=== PATIENT | male | born 1930 | race Caucasian/White ===

== ENCOUNTER 2016-06-22 13:23 | Inpatient (IN) | payer OTHER ==
--- NOTE | 2016-06-22 15:26 | PDOC ---
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 He didn't check his temp at home. He is also complaining of chronic SOB but states that today it is worse. He denies cough, fever. He denies chest pain, abdominal pain, N/V, diarrhea, increased frequency, urgency. He denies headache, weakness, dizziness. PCP: Past History - Past Medical History Allergies/Adverse Reactions: Allergies Allergy/AdvReac Type Severity Reaction Status Date / Time No Known Allergies Allergy Verified 06/22/16 13:53 Home Medications: Ambulatory Orders Aspirin [ASA -] 81 mg PO DAILY 06/24/14 Pravastatin Sodium [Pravachol -] 40 mg PO HS 10/12/14 Insulin (Levemir) [Levemir Flexpen -] 30 units SQ HS #1 pen 10/14/14 Sitagliptin Phosphate [Januvia -] 25 mg PO DAILY@0700 #90 tab 10/14/14 Furosemide [Lasix -] 40 mg PO BID #30 tablet 03/01/16 Anemia: No Asthma: No Cancer: No Cardiac Disorders: Yes CVA: No COPD: No CHF: No Dementia: Yes (PER FAMILY/MILD) Diabetes: Yes GI Disorders: No Disorders: No HTN: No Hypercholesterolemia: No Liver Disease: No Suicide Attempt (Hx): No Seizures: No Thyroid Disease: No - Surgical History Abdominal Surgery: No Appendectomy: No Cardiac Surgery: Yes (CABG) Cholecystectomy: No Lung Surgery: Yes Neurologic Surgery: No Orthopedic Surgery: No - Psycho/Social/Smoking Cessation Hx Anxiety: No Suicidal Ideation: No Smoking History: Former smoker Have you smoked in the past 12 months: No If you are a former smoker, when did you quit?: 15 yrs Information on smoking cessation initiated: No Hx Alcohol Use: Yes (social) Drug/Substance Use Hx: No Substance Use Type: None Hx Substance Use Treatment: No Review of Systems - Review of Systems Able to Perform ROS?: Yes Comments:: 06/22/16 15:45 REVIEW OF SYSTEMS CONSTITUTIONAL: chills Absent: fever, diaphoresis, generalized weakness, malaise, loss of appetite, weight change HEENT: Absent: rhinorrhea, nasal congestion, throat pain, throat swelling, difficulty swallowing CARDIOVASCULAR: Absent: chest pain, syncope, palpitations, irregular heart rate, lightheadedness , peripheral edema RESPIRATORY: shortness of breath, Absent: cough, dyspnea with exertion, orthopnea, wheezing, stridor, hemoptysis GASTROINTESTINAL: Absent: abdominal pain, abdominal distension, nausea, vomiting, diarrhea GENITOURINARY: Absent: dysuria, frequency, urgency, hesitancy, hematuria, flank pain, genital pain MUSCULOSKELETAL: Absent: myalgia, arthralgia, joint swelling, back pain, neck pain SKIN: Absent: rash, itching, pallor NEUROLOGIC: Absent: headache, focal weakness or paresthesias, dizziness, unsteady gait, seizure PSYCHIATRIC: Absent: anxiety, depression, suicidal or homicidal ideation, hallucinations. *Physical Exam - Vital Signs Last Vital Signs Temp Pulse Resp BP Pulse Ox 97.6 F 99 H 19 135/60 95 06/22/16 13:53 06/22/16 13:53 06/22/16 13:53 06/22/16 13:53 06/22/16 13:53 - Physical Exam Comments: 06/22/16 15:51 GENERAL: The patient is awake, alert, and fully oriented, in no acute distress. HEAD: Normal with no signs of trauma. EYES: extraocular movements intact, sclera anicteric, conjunctiva clear. ENT: Ears normal, nares patent, oropharynx clear without exudates, moist mucous membranes. NECK: Trachea midline, full range of motion, supple. LUNGS: Breath sounds equal, crackles at bases bilaterally, no wheezes, no accessory muscle use. HEART: Regular rate and rhythm, S1, S2 without murmur, rub or gallop. ABDOMEN: Obese, soft, nontender, nondistended, normoactive bowel sounds, no guarding, no rebound. EXTREMITIES: no edema. NEUROLOGICAL: Normal speech, gait not observed. PSYCH: Normal mood, normal affect. SKIN: Warm, dry, normal turgor, no rashes or lesions noted ED Treatment Course - LABORATORY CBC & Chemistry Diagram: 06/22/16 17:00 06/22/16 17:00 Medical Decision Making - Medical Decision Making 06/22/16 15:53 The pt is a 85 year old male who presents with SOB and chills for 3 hours. Differential diagnosis include PNA, ACS, Influenza. We ordered CXR, EKG, cardiac profile, CBC, CMP, UA, LA. 06/22/16 18:32 CXR reviewed by me, no changes when compared with the previous one, EKG reviewed NSR at rate 72 , no mandeep/std, left axis deviation, QTC 435, no MS prolongation. Elevated WBC to 12.8. Waiting for chemistry. We contacted Dr. Moseley who agreed to admit the pt to med surg. We also consulted Dr. Garcia-Human Capital Consultant *DC/Admit/Observation/Transfer Diagnosis at time of Disposition: Shortness of breath - Discharge Dispostion Condition at time of disposition: Good Admit: Yes - Referrals Referrals: Sunil Moseley MD [Primary Care Provider] -
--- NOTE | 2016-06-22 16:07 | PDOC ---
Attending Attestation - Resident Resident Name: Lorie Scott - ED Attending Attestation I have performed the following: I have examined & evaluated the patient, The case was reviewed & discussed with the resident, I agree w/resident's findings & plan - HPI HPI: 06/22/16 16:02 85-year-old male with a past medical history of COPD, CKD, Pleural lung dz/ Occupational lung dz, JUAN He was here 02/23/16, with COPD exacerbation/pneumonia and sepsis Patient states he's been in his usual state until the past 24 hours, when he developed some chills and a little increased shortness of breath He denies any cough or sputum He denies any chest pain or abdominal pain He denies any vomiting or diarrhea He denies any dysuria urgency or frequency He denies any other complaints at this time - Physicial Exam PE: 06/22/16 16:04 Physical exam Last Vital Signs Temp Pulse Resp BP Pulse Ox 97.6 F 99 H 19 135/60 95 06/22/16 13:53 06/22/16 13:53 06/22/16 13:53 06/22/16 13:53 06/22/16 13:53 Patient is alert and answering questions Lungs-there are some scattered rhonchi and occasional wheezes Heart is regular Abdomen is soft and nontender Extremities-there is 1+ pitting pedal edema - Medical Decision Making 06/23/16 09:27 85-year-old male with complex past medical history as noted above Also has complex pulmonary history as noted above Presents with chills, and slight increased shortness of breath Was admitted for pneumonia in the past Chest x-ray-no significant changes since the prior chest x-ray of 03/11/16 Laboratory Results - last 24 hr 06/22/16 06/22/16 06/22/16 17:00 17:00 17:00 WBC 12.8 H D RBC 4.42 Hgb 13.4 Hct 40.2 MCV 90.9 MCHC 33.3 RDW 15.1 Plt Count 180 D MPV 9.8 D Neutrophils % Lymphocytes % Monocytes % Eosinophils % Basophils % Sodium Potassium Chloride Carbon Dioxide Anion Gap BUN Creatinine Creat Clearance w eGFR POC Glucometer Random Glucose Hemoglobin A1c % Lactic Acid Calcium Phosphorus Magnesium Total Bilirubin AST ALT Alkaline Phosphatase Creatine Kinase 31 L Troponin I < 0.02 B-Natriuretic Peptide Total Protein Albumin Triglycerides Cholesterol Total LDL Cholesterol HDL Cholesterol Urine Color Yellow Urine Appearance Clear Urine pH 5.0 Ur Specific [place] 1.019 Urine Protein Negative Urine Glucose (UA) Negative Urine Ketones Negative Urine Blood Negative Urine Nitrite Negative Urine Bilirubin Negative Urine Urobilinogen Negative Ur Leukocyte Esterase 1+ H Urine RBC 1 Urine WBC 10 Ur Epithelial Cells Rare Hyaline Casts 3 Urine Mucus Rare 06/22/16 06/22/16 06/22/16 17:00 17:00 21:35 WBC RBC Hgb Hct MCV MCHC RDW Plt Count MPV Neutrophils % Lymphocytes % Monocytes % Eosinophils % Basophils % Sodium 136 Potassium 4.0 Chloride 93 L Carbon Dioxide 31 Anion Gap 12 BUN 32 H Creatinine 1.6 H Creat Clearance w eGFR 41.39 POC Glucometer 105 Random Glucose 121 H Hemoglobin A1c % Lactic Acid 0.726 Calcium 8.6 Phosphorus Magnesium Total Bilirubin 0.5 D AST 26 D ALT 25 Alkaline Phosphatase 79 Creatine Kinase Troponin I B-Natriuretic Peptide Total Protein 6.9 Albumin 3.4 Triglycerides Cholesterol Total LDL Cholesterol HDL Cholesterol Urine Color Urine Appearance Urine pH Ur Specific [place] Urine Protein Urine Glucose (UA) Urine Ketones Urine Blood Urine Nitrite Urine Bilirubin Urine Urobilinogen Ur Leukocyte Esterase Urine RBC Urine WBC Ur Epithelial Cells Hyaline Casts Urine Mucus 06/22/16 06/23/16 06/23/16 22:00 06:32 07:00 WBC 9.9 RBC 4.35 Hgb 13.3 Hct 39.4 MCV 90.7 MCHC 33.8 RDW 15.1 Plt Count 178 MPV 8.6 D Neutrophils % 66.5 Lymphocytes % 17.8 D Monocytes % 11.9 H Eosinophils % 2.9 Basophils % 0.9 Sodium Potassium Chloride Carbon Dioxide Anion Gap BUN Creatinine Creat Clearance w eGFR POC Glucometer 68 Random Glucose Hemoglobin A1c % Lactic Acid Calcium Phosphorus Magnesium Total Bilirubin AST ALT Alkaline Phosphatase Creatine Kinase 27 L Troponin I < 0.02 B-Natriuretic Peptide 866.95 H Total Protein Albumin Triglycerides Cholesterol Total LDL Cholesterol HDL Cholesterol Urine Color Urine Appearance Urine pH Ur Specific [place] Urine Protein Urine Glucose (UA) Urine Ketones Urine Blood Urine Nitrite Urine Bilirubin Urine Urobilinogen Ur Leukocyte Esterase Urine RBC Urine WBC Ur Epithelial Cells Hyaline Casts Urine Mucus 06/23/16 06/23/16 07:00 07:00 WBC RBC Hgb Hct MCV MCHC RDW Plt Count MPV Neutrophils % Lymphocytes % Monocytes % Eosinophils % Basophils % Sodium 139 Potassium 3.9 Chloride 97 L Carbon Dioxide 35 H Anion Gap 7 L BUN 32 H Creatinine 1.6 H Creat Clearance w eGFR 41.39 POC Glucometer Random Glucose 64 L D Hemoglobin A1c % 6.9 H Lactic Acid Calcium 8.5 Phosphorus 2.6 Magnesium 2.3 D Total Bilirubin 0.4 AST 19 D ALT 26 Alkaline Phosphatase 72 Creatine Kinase Troponin I B-Natriuretic Peptide Total Protein 6.8 Albumin 3.1 L Triglycerides 128 D Cholesterol 151 D Total LDL Cholesterol 86 D HDL Cholesterol 54 Urine Color Urine Appearance Urine pH Ur Specific [place] Urine Protein Urine Glucose (UA) Urine Ketones Urine Blood Urine Nitrite Urine Bilirubin Urine Urobilinogen Ur Leukocyte Esterase Urine RBC Urine WBC Ur Epithelial Cells Hyaline Casts Urine Mucus Will need admission and further evaluation, pulmonary consultation, Consider antibiotics pending workup, although no definite infiltrate is seen on the chest x-ray COPD exacerbation
[2016-06-22 17:53] LABS: MCH 30.2 pg (25.7-33.7); MCHC 33.3 g/dl (32.0-35.9); MEAN CELL VOLUME 90.9 fl (80-96); MEAN PLT VOLUME 9.8 fl (7.5-11.1); PLATELET COUNT 180 K/MM3 (134-434); RDW 15.1 % (11.9-15.9); URINE APPEARANCE CLEAR; URINE BILIRUBIN NEGATIVE (NEGATIVE); URINE BLOOD NEGATIVE (NEGATIVE); URINE COLOR YELLOW; URINE GLUCOSE (UA) NEGATIVE (NEGATIVE); URINE KETONE NEGATIVE (NEGATIVE); URINE NITRITE NEGATIVE (NEGATIVE); URINE PROTEIN NEGATIVE (NEGATIVE); URINE UROBILINOGEN NEGATIVE E.U./dl (0.2-1.0); WHITE BLOOD COUNT 12.8 K/mm3 (4.0-10.0)
[2016-06-22 17:58] LABS: URINE LEUK ESTERASE 1+ (NEGATIVE)
[2016-06-22 18:03] LABS: URINE HYALINE CAST 3 /lpf; URINE MUCUS RARE; URINE RBC 1 /hpf (0-3); URINE WBC 10 /hpf (3-5)
[2016-06-22 18:35] LABS: ALBUMIN 3.4 g/dl (3.4-5.0); CALCIUM 8.6 mg/dL (8.5-10.1); CREATININE 1.6 mg/dL (0.7-1.3)
[2016-06-22 18:38] LABS: BILIRUBIN,TOTAL 0.5 mg/dL (0.2-1.0); TOT PROT 6.9 g/dl (6.4-8.2)
[2016-06-22 18:40] LABS: TROPONIN I < 0.02 ng/ml (0.00-0.05)
[2016-06-22] MEDS ORDERED: AMPICILLIN NA/SULBACTAM NA 100 ML IVPB ONE (21:15)
[2016-06-22] MEDS ORDERED: INSULIN (NOVOLOG) ASPART 100 UNITS/ML 10ML VIAL ONE (21:19)
[2016-06-22] MEDS: INSULIN SLIDING SCALE (NOVOLOG) 1 VIAL SQ SCH (21:36)
[2016-06-22] MEDS: INSULIN DETEMIR 100 UNITS/ML MDV SQ SCH (21:50)
[2016-06-22] MEDS: HEPARIN NA (PORCINE) 5,000 UNITS/ML 1ML VIAL SQ SCH (21:50)
[2016-06-22] MEDS: ATORVASTATIN CA 10 MG TABLET (FP) PO SCH (21:50)
[2016-06-22] MEDS ORDERED: INSULIN SQ SCH (22:00)
[2016-06-22] MEDS ORDERED: PATIENT'S OWN MEDICATION (NON-FORMULARY) (Pravastatin Sodium 40 MG) PO SCH (22:00)
[2016-06-22 22:47] LABS: TROPONIN I < 0.02 ng/ml (0.00-0.05)
[2016-06-22 23:30] VITALS: BMI 39.4
[2016-06-23] MEDS ORDERED: AMPICILLIN NA/SULBACTAM NA 100 ML IVPB SCH (03:00)
[2016-06-23] MEDS ORDERED: AMPICILLIN NA/SULBACTAM NA 1.5 GM in SODIUM CHLORIDE 100 ML IVPB SCH (03:00)
[2016-06-23] MEDS: FUROSEMIDE 40 MG TABLET (FP) PO SCH ×2 (06:33→13:55)
[2016-06-23] MEDS: HEPARIN NA (PORCINE) 5,000 UNITS/ML 1ML VIAL SQ SCH ×3 (06:33→22:02)
[2016-06-23] MEDS: INSULIN SLIDING SCALE (NOVOLOG) 1 VIAL SQ SCH ×4 (06:36→22:03)
[2016-06-23] MEDS ORDERED: INSULIN DETEMIR 100 UNITS/ML MDV SQ SCH (07:00)
[2016-06-23] MEDS: sitaGLIPtin PHOSPHATE 25 MG TABLET (FP) PO SCH (07:09)
--- NOTE | 2016-06-23 07:49 | HP ---
Admitting History and Physical - Admission Chief Complaint: 85 y.o M developed yesterday at 12 noon rigors, chills, fever, cough, SOB and presented to ER. Had several similar episodes in the past. Was admitted for further management. History of Present Illness: Persistent 6.7cm left basilar atelectasis/consolidation. CABG ASHD. DM type on Levemir/Januvia.. CRI. 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 JUAN-not using CPAP. 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 bronchiectasis.) Gastrointestinal: Yes: Ulcerative Colitis Renal/: Yes: Renal Inusuff Heme/Onc: No: Cancer Infectious Disease: No: AIDS, C-Diff, Herpes Zoster, HIV, MRSA, STD's, Tuberculosis, VREF, Other Musculoskeletal: Yes: Osteoarthritis, Other (Neck/shoulder pain) Endocrine: Yes: Diabetes Mellitus - Past Surgical History Past Surgical History: Yes: CABG - Smoking History Smoking history: Former smoker Have you smoked in the past 12 months: No If you are a former smoker, when did you quit?: 15 yrs - Alcohol/Substance Use Hx Alcohol Use: Yes (social) History of Substance Use: reports: None - Social History 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 History of Recent Travel: No Home Medications - Allergies Allergies/Adverse Reactions: Allergies Allergy/AdvReac Type Severity Reaction Status Date / Time No Known Allergies Allergy Verified 06/22/16 13:53 - Home Medications Home Medications: Ambulatory Orders Aspirin [ASA -] 81 mg PO DAILY 06/24/14 Pravastatin Sodium [Pravachol -] 40 mg PO HS 10/12/14 Insulin (Levemir) [Levemir Flexpen -] 30 units SQ HS #1 pen 10/14/14 Sitagliptin Phosphate [Januvia -] 25 mg PO DAILY@0700 #90 tab 10/14/14 Furosemide [Lasix -] 40 mg PO BID #30 tablet 03/01/16 Family Disease History - Family Disease History Family History: Unremarkable Review of Systems - Review of Systems Constitutional: denies: Chills, Diaphoresis, Fever, Lethargy Eyes: reports: No Symptoms HENT: denies: Difficult Swallowing, Ear Discharge Cardiovascular: reports: Shortness of Breath. denies: Chest Pain Respiratory: reports: SOB on Exertion Gastrointestinal: denies: Abdominal Pain Genitourinary: denies: Burning, Dysuria Breasts: reports: No Symptoms Reported Integumentary: reports: No Symptoms Neurological: denies: Change in LOC Psychiatric: reports: No Symptoms Physical Examination Vital Signs: Vital Signs Temperature 97.5 F L 06/23/16 06:00 Pulse Rate 74 06/23/16 06:00 Respiratory Rate 20 06/23/16 06:00 Blood Pressure 143/89 06/23/16 06:00 O2 Sat by Pulse Oximetry (%) 99 06/22/16 20:47 Constitutional: Yes: Anxious, Mild Distress Eyes: Yes: Conjunctiva Clear, EOM Intact HENT: Yes: Atraumatic, Normocephalic Neck: Yes: Supple, Trachea Midline Cardiovascular: Yes: Regular Rate and Rhythm, Murmur. No: JVD Respiratory: Yes: Regular, Diminished, On Nasal O2, Rhonchi, SOB, SOB on Exertion Gastrointestinal: Yes: Normal Bowel Sounds, Abdomen, Obese. No: Ascites, Palpable Mass, Tenderness ...Rectal Exam: Yes: Deferred Renal/: No: Anuria, Bladder Distention, CVA Tenderness - Left Breast(s): Yes: Left Musculoskeletal: Yes: WNL Extremities: No: Amputation, Calf Tenderness, Cold, Cyanosis Edema: No Edema: LLE: Trace, RLE: Trace Integumentary: Yes: WNL Neurological: Yes: WNL, Alert, Oriented. No: Aphasia, Ataxia, Dysarthria, Loss of Sensation, Numbness, Seizure, Weakness ...Motor Strength: WNL Psychiatric: Yes: WNL Labs: Laboratory Results - last 24 hr 06/22/16 06/22/16 06/22/16 17:00 17:00 17:00 WBC 12.8 H D RBC 4.42 Hgb 13.4 Hct 40.2 MCV 90.9 MCHC 33.3 RDW 15.1 Plt Count 180 D MPV 9.8 D Sodium Potassium Chloride Carbon Dioxide Anion Gap BUN Creatinine Creat Clearance w eGFR POC Glucometer Random Glucose Lactic Acid Calcium Total Bilirubin AST ALT Alkaline Phosphatase Creatine Kinase 31 L Troponin I < 0.02 B-Natriuretic Peptide Total Protein Albumin Urine Color Yellow Urine Appearance Clear Urine pH 5.0 Ur Specific [place] 1.019 Urine Protein Negative Urine Glucose (UA) Negative Urine Ketones Negative Urine Blood Negative Urine Nitrite Negative Urine Bilirubin Negative Urine Urobilinogen Negative Ur Leukocyte Esterase 1+ H Urine RBC 1 Urine WBC 10 Ur Epithelial Cells Rare Hyaline Casts 3 Urine Mucus Rare 06/22/16 06/22/16 06/22/16 17:00 17:00 21:35 WBC RBC Hgb Hct MCV MCHC RDW Plt Count MPV Sodium 136 Potassium 4.0 Chloride 93 L Carbon Dioxide 31 Anion Gap 12 BUN 32 H Creatinine 1.6 H Creat Clearance w eGFR 41.39 POC Glucometer 105 Random Glucose 121 H Lactic Acid 0.726 Calcium 8.6 Total Bilirubin 0.5 D AST 26 D ALT 25 Alkaline Phosphatase 79 Creatine Kinase Troponin I B-Natriuretic Peptide Total Protein 6.9 Albumin 3.4 Urine Color Urine Appearance Urine pH Ur Specific [place] Urine Protein Urine Glucose (UA) Urine Ketones Urine Blood Urine Nitrite Urine Bilirubin Urine Urobilinogen Ur Leukocyte Esterase Urine RBC Urine WBC Ur Epithelial Cells Hyaline Casts Urine Mucus 06/22/16 06/23/16 22:00 06:32 WBC RBC Hgb Hct MCV MCHC RDW Plt Count MPV Sodium Potassium Chloride Carbon Dioxide Anion Gap BUN Creatinine Creat Clearance w eGFR POC Glucometer 68 Random Glucose Lactic Acid Calcium Total Bilirubin AST ALT Alkaline Phosphatase Creatine Kinase 27 L Troponin I < 0.02 B-Natriuretic Peptide 866.95 H Total Protein Albumin Urine Color Urine Appearance Urine pH Ur Specific [place] Urine Protein Urine Glucose (UA) Urine Ketones Urine Blood Urine Nitrite Urine Bilirubin Urine Urobilinogen Ur Leukocyte Esterase Urine RBC Urine WBC Ur Epithelial Cells Hyaline Casts Urine Mucus Imaging - Results Chest X-ray: Image Reviewed EKG: Image Reviewed Problem List - Problems (1) COPD exacerbation Assessment/Plan: R/O PNA. CT CHEST R/O infected bronchoectasis. Pulm consult IV Ceftriaxone BLD CX-P Code(s): J44.1 - CHRONIC OBSTRUCTIVE PULMONARY DISEASE W (ACUTE) EXACERBATION (2) Diabetes 1.5, managed as type 2 Code(s): E13.9 - OTHER SPECIFIED DIABETES MELLITUS WITHOUT COMPLICATIONS (3) CHF, acute on chronic Code(s): I50.9 - HEART FAILURE, UNSPECIFIED Qualifiers: Congestive heart failure type: diastolic Qualified Code(s): I50.33 - Acute on chronic diastolic (congestive) heart failure (4) Constipation Assessment/Plan: Miralax PO. Mag citrate. CT abdomen Code(s): K59.00 - CONSTIPATION, UNSPECIFIED Qualifiers: Constipation type: unspecified constipation type Qualified Code(s): K59.00 - Constipation, unspecified
[2016-06-23] MEDS ORDERED: MAGNESIUM CITRATE 300 ML BOTTLE PO ONE ×2 (08:12→14:00)
[2016-06-23] MEDS ORDERED: BISACODYL 5 MG TABLET.DR (FP) PO ONE ×2 (08:15→14:00)
[2016-06-23 08:35] LABS: BASOPHIL 0.9 % (0-2.0); EOSINOPHIL 2.9 % (0-4.5); MCH 30.7 pg (25.7-33.7); MCHC 33.8 g/dl (32.0-35.9); MEAN CELL VOLUME 90.7 fl (80-96); MEAN PLT VOLUME 8.6 fl (7.5-11.1); NEUTROPHILS 66.5 % (42.8-82.8); PLATELET COUNT 178 K/MM3 (134-434); RDW 15.1 % (11.9-15.9); WHITE BLOOD COUNT 9.9 K/mm3 (4.0-10.0)
--- NOTE | 2016-06-23 08:50 | PN ---
Progress Note (short form) - Note Progress Note: Consult Dictated Suspected PNA Pleural lung dz/Occupational lung dz PHTN CAD s/p CABG Diastolic Dysfunction REC: 1. Abx per PMD 2. Agree Chest CT 3. Mild volume overload due to chronic diastolic CHF, can continue PO Lasix and follow renal fxn closely Thank you
[2016-06-23 08:53] LABS: ALBUMIN 3.1 g/dl (3.4-5.0); CALCIUM 8.5 mg/dL (8.5-10.1); CREATININE 1.6 mg/dL (0.7-1.3); MAGNESIUM 2.3 mg/dL (1.8-2.4); PHOSPHOROUS 2.6 mg/dL (2.5-4.9); TOT PROT 6.8 g/dl (6.4-8.2)
[2016-06-23 08:55] LABS: BILIRUBIN,TOTAL 0.4 mg/dL (0.2-1.0)
[2016-06-23] MEDS ORDERED: ASPIRIN 81 MG CHEWABLE TABLETS PO SCH (10:00)
[2016-06-23] MEDS ORDERED: CEFTRIAXONE 50 ML IVPB SCH (10:00)
--- NOTE | 2016-06-23 13:35 | EKG ---
Test Reason : Blood Pressure : / mmHG Vent. Rate : 072 BPM Atrial Rate : 072 BPM P-R Int : 144 ms QRS Dur : 116 ms QT Int : 398 ms P-R-T Axes : 102 -24 014 degrees QTc Int : 435 ms POOR DATA QUALITY, INTERPRETATION MAY BE ADVERSELY AFFECTED NORMAL SINUS RHYTHM NORMAL ECG WHEN COMPARED WITH ECG OF 23-FEB-2016 05:45, NONSPECIFIC T WAVE ABNORMALITY NOW EVIDENT IN INFERIOR LEADS NONSPECIFIC T WAVE ABNORMALITY, WORSE IN LATERAL LEADS Confirmed by GORDON PHAM, ZACH ([id number]) on 06/23/2016 1:34:46 PM Referred By: Confirmed By:ZCAH LEYVA MD
[2016-06-23] MEDS: POLYETHYLENE GLYCOL 3350 119 GM BTL PO SCH ×2 (13:59→22:11)
--- NOTE | 2016-06-23 14:18 | PN ---
Progress Note (short form) - Note Progress Note: PULMONARY CONSULTATION DICTATED 06/23/16 IMP COPD EXACERBATION ACUTE BRONCHITIS LLL CONSOLIDATION NO CHANGE LIKELY ATELECTASIS ASBESTOS PLEURAL DISEASE ASHD S/P CABG CHF DM OSAS NOT ON CPAP PLAN IV ANTIBIOTICS INHALED BRONCHODILATORS NASAL O2 CULTURES OUTPATIENT PULMONARY REHAB DR HERNANDEZ Problem List - Problems (1) CHF, acute on chronic Code(s): I50.9 - HEART FAILURE, UNSPECIFIED Qualifiers: Congestive heart failure type: diastolic Qualified Code(s): I50.33 - Acute on chronic diastolic (congestive) heart failure (2) Shortness of breath Code(s): R06.02 - SHORTNESS OF BREATH (3) COPD exacerbation Code(s): J44.1 - CHRONIC OBSTRUCTIVE PULMONARY DISEASE W (ACUTE) EXACERBATION (4) Diabetes 1.5, managed as type 2 Code(s): E13.9 - OTHER SPECIFIED DIABETES MELLITUS WITHOUT COMPLICATIONS (5) Sleep apnea Code(s): G47.30 - SLEEP APNEA, UNSPECIFIED (6) ASHD (arteriosclerotic heart disease) Code(s): I25.10 - ATHSCL HEART DISEASE OF [place] CORONARY ARTERY W/O ANG PCTRS (7) S/P CABG (coronary artery bypass graft) Code(s): Z95.1 - PRESENCE OF AORTOCORONARY BYPASS GRAFT
[2016-06-23] MEDS ORDERED: ALBUTEROL SO4 0.083% IH SOL 2.5 MG/3 ML VIAL.NEB. NEB PRN (14:22)
--- NOTE | 2016-06-23 15:18 | CONS ---
CARDIOLOGY CONSULTATION DATE OF CONSULTATION: 06/23/2016 REQUESTED BY: Sunil Moseley MD CONSULTATION REQUESTED FOR: Shortness of breath. 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 Patient developed what he describes as shaking chills and was brought to the ER by taxi after his urged him to come to the ER for evaluation. He denies chest pain but does have chronic dyspnea on exertion. He denies palpitations, pain, PND orthopnea or increase in mild chronic lower extremity edema. His chest x-ray in the emergency department shows no acute pathology, but there was slightly increased interstitial markings, but no sign of infiltrate or CHF. PAST MEDICAL HISTORY: His past medical history is as outlined above. ALLERGIES: He has no known drug allergies. MEDICATIONS: Aspirin 81 mg daily, atorvastatin 10 mg q h.s., Ceftriaxone for suspected pneumonia, Lasix 40 mg p.o. b.i.d., insulin, Levemir and Januvia. FAMILY HISTORY: Noncontributory. SOCIAL HISTORY: He is a former smoker, drinks alcohol socially. PHYSICAL EXAMINATION: Vital signs: Afebrile. Temperature 97.5. Blood pressure 140/90. Neck: No JVD, no bruits. Heart: S1, S2, regular. There is a 2/6 systolic murmur at the right sternal border. Chest: No active wheezing, no rales. Abdomen: Obese, soft, nontender. Extremities: 1+ bilateral edema. EKG showed sinus, 72 beats per minute with nonspecific intraventricular conduction delay. No acute ST changes. LABS: White count 9.9, hematocrit 39, platelets 178. Sodium 136, potassium 4. Creatinine 1.6. BNP mildly elevated at 867. Troponin is negative. IMPRESSION: 1. 85-year-old male with pleural lung disease/occupational lung disease. 2. Coronary artery disease status post coronary artery bypass graft. 3. Pulmonary hypertension, based on echo February 2016. 4. Now presents with chills, suspected pneumonia. PLAN: 1. Agree with antibiotics as per primary care physician. 2. Agree with chest CT. 3. Patient has chronic diastolic dysfunction and has mild volume overload. Can continue p.o. Lasix and follow renal function closely. Echo recently done in February with normal LV function and mild pulmonary hypertension. PRITESH HANNAH M.D. [id number]
[2016-06-23] MEDS: ALBUTEROL SO4 2.5/IPRATROPIUM 0.5 INH SOL 3 ML VIAL.NEB. NEB SCH ×2 (18:25→23:54)
--- NOTE | 2016-06-23 21:30 | CONS ---
DATE OF CONSULTATION: 06/23/2016 REFERRING PHYSICIAN: Sunil Moseley MD HISTORY OF PRESENT ILLNESS: The patient is an 85-year-old white male known to me in previous hospitalizations in the past with ASHD status post CABG with hypertension, diabetes, chronic kidney disease, extensive pleural disease with left pleural effusion, left atelectasis, consolidation, unchanged, likely centered around atelectasis, history of obstructive sleep apnea not on BiPAP, history of smoking many years ago, osteoarthritis, ulcerative colitis, bronchiectasis, COPD on O2 admitted to [facility] with complaint of fevers, chills, and shortness of breath. The patient states when he was at home he started developing rigors. He denies any nausea, vomiting, or diaphoresis. He does complain of cough with yellowish sputum as well as shortness of breath. He denied any chest pains or palpitations, denied any nausea, vomiting, or diaphoresis. The patient was admitted with the above. On admission, he was felt to have a possible pneumonia. He was placed on broad spectrum antibiotics. He also was evaluated by Dr. Starkey for cardiology consultation who felt that the patient most likely had some mild volume overload secondary to chronic diastolic heart failure. 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 PAST MEDICAL HISTORY: Again, significant for ASHD status post CABG, congestive heart failure, chronic kidney disease, type 2 diabetes, COPD on O2, obstructive sleep apnea not on CPAP, chronic lung disease with extensive pleural disease as well as left basilar consolidation, chronic with no change, most likely centered round atelectasis. History of pleural effusion, biopsy workup negative. REVIEW OF SYSTEMS: Positive orthopnea, positive dyspnea, positive chills. No nausea, no vomiting. No hemoptysis. No abdominal pain. PHYSICAL EXAMINATION: General: The patient is a healthy white male, awake, alert, currently in no acute distress. Vital Signs: He is currently afebrile. Blood pressure 149/79, respiratory rate 20, O2 saturation 97% on 2 L. HEENT: Examination is normocephalic, atraumatic. Neck: Supple. Heart: Regular, S1, S2. Chest: A few bibasilar crackles. Abdomen: Soft, bowel sounds positive. Extremities: No cyanosis or edema. LABORATORY DATA: Influenza screen negative. Chest CT unofficial report reveals no definitive infiltrates. There is no change in left basilar consolidation. There is some old bilateral pleural thickening as well as some bilateral effusions on the left. BUN is 32, creatinine 1.6. BNP is 866. WBC is 9.9. Hemoglobin 13.3, hematocrit 39.4 and a platelet count of 178,000. IMPRESSION: 1. Rigors, chills, rule out possible pneumonia, rule out possible bronchitis. 2. Chronic obstructive pulmonary disease on oxygen. 3. History of chronic pleural disease, left basilar pleural consolidation. No significant change. 4. Arteriosclerotic heart disease, status post coronary artery bypass graft. 5. Diastolic congestive heart failure. 6. Diabetes. 7. Chronic kidney disease. 8. Obstructive sleep apnea, noncompliant with CPAP. PLAN: Antibiotic therapy, supplemental O2, inhaled bronchodilators, cultures. Continue p.o. Lasix. Followup chest x-rays. LINDA HERNANDEZ M.D. [id number] MTDD
[2016-06-23] MEDS: ATORVASTATIN CA 10 MG TABLET (FP) PO SCH (22:02)
[2016-06-23] MEDS: INSULIN DETEMIR 100 UNITS/ML MDV SQ SCH (22:06)
[2016-06-24] MEDS: FUROSEMIDE 40 MG TABLET (FP) PO SCH (06:13)
[2016-06-24] MEDS: HEPARIN NA (PORCINE) 5,000 UNITS/ML 1ML VIAL SQ SCH (06:14)
[2016-06-24] MEDS: sitaGLIPtin PHOSPHATE 25 MG TABLET (FP) PO SCH (07:38)
[2016-06-24] MEDS: INSULIN SLIDING SCALE (NOVOLOG) 1 VIAL SQ SCH (07:38)
--- NOTE | 2016-06-24 07:58 | PN ---
Progress Note (short form) - Note Progress Note: Feels well. No fever. WBC-returned to normal. CT chest/abdomen/pelvis reports noted Vital Signs (72 hours) 06/22/16 06/22/16 06/22/16 13:53 20:47 21:00 Temperature 97.6 F 98.5 F Pulse Rate 99 H 78 Pulse Rate [ 75 Left] Respiratory 19 16 22 Rate Blood Pressure 135/60 155/79 Blood Pressure 125/55 [Arm] O2 Sat by Pulse 95 99 Oximetry (%) 06/23/16 06/23/16 06/23/16 01:39 06:00 08:45 Temperature 97.4 F L 97.5 F L 97.6 F Pulse Rate 68 74 80 Pulse Rate [ Left] Respiratory 20 20 20 Rate Blood Pressure 128/56 143/89 149/79 Blood Pressure [Arm] O2 Sat by Pulse Oximetry (%) 06/23/16 06/23/16 06/23/16 09:00 14:53 16:45 Temperature 98.4 F 97.4 F L Pulse Rate 70 75 Pulse Rate [ Left] Respiratory 16 20 Rate Blood Pressure 126/64 145/84 Blood Pressure [Arm] O2 Sat by Pulse 97 Oximetry (%) 06/23/16 06/23/16 06/23/16 18:47 21:00 22:00 Temperature 98 F Pulse Rate 87 72 Pulse Rate [ Left] Respiratory 18 Rate Blood Pressure 135/82 Blood Pressure [Arm] O2 Sat by Pulse 94 L 94 L Oximetry (%) 06/24/16 06:00 Temperature 98 F Pulse Rate 77 Pulse Rate [ Left] Respiratory 18 Rate Blood Pressure 131/73 Blood Pressure [Arm] O2 Sat by Pulse Oximetry (%) Lungs clear Heart S1S2 regular Abdomen soft, NT +bs. Had BM at night. NO EDEMA le BGM controlled. Laboratory Results - last 24 hr 06/23/16 06/23/16 06/23/16 07:00 07:00 07:00 WBC 9.9 RBC 4.35 Hgb 13.3 Hct 39.4 MCV 90.7 MCHC 33.8 RDW 15.1 Plt Count 178 MPV 8.6 D Neutrophils % 66.5 Lymphocytes % 17.8 D Monocytes % 11.9 H Eosinophils % 2.9 Basophils % 0.9 Sodium 139 Potassium 3.9 Chloride 97 L Carbon Dioxide 35 H Anion Gap 7 L BUN 32 H Creatinine 1.6 H Creat Clearance w eGFR 41.39 POC Glucometer Random Glucose 64 L D Hemoglobin A1c % 6.9 H Calcium 8.5 Phosphorus 2.6 Magnesium 2.3 D Total Bilirubin 0.4 AST 19 D ALT 26 Alkaline Phosphatase 72 Total Protein 6.8 Albumin 3.1 L Triglycerides 128 D Cholesterol 151 D Total LDL Cholesterol 86 D HDL Cholesterol 54 06/23/16 06/23/16 06/23/16 11:26 16:36 21:28 WBC RBC Hgb Hct MCV MCHC RDW Plt Count MPV Neutrophils % Lymphocytes % Monocytes % Eosinophils % Basophils % Sodium Potassium Chloride Carbon Dioxide Anion Gap BUN Creatinine Creat Clearance w eGFR POC Glucometer 117 141 130 Random Glucose Hemoglobin A1c % Calcium Phosphorus Magnesium Total Bilirubin AST ALT Alkaline Phosphatase Total Protein Albumin Triglycerides Cholesterol Total LDL Cholesterol HDL Cholesterol 06/24/16 06/24/16 05:52 07:12 WBC RBC Hgb Hct MCV MCHC RDW Plt Count MPV Neutrophils % Lymphocytes % Monocytes % Eosinophils % Basophils % Sodium Potassium Chloride Carbon Dioxide Anion Gap BUN Creatinine Creat Clearance w eGFR POC Glucometer 54 132 Random Glucose Hemoglobin A1c % Calcium Phosphorus Magnesium Total Bilirubin AST ALT Alkaline Phosphatase Total Protein Albumin Triglycerides Cholesterol Total LDL Cholesterol HDL Cholesterol Current Active Problems Problem Status Diagnosed ASHD (arteriosclerotic heart disease) Acute CHF, acute on chronic Acute Constipation Acute S/P CABG (coronary artery bypass graft) Acute Shortness of breath Acute Plan D/c home Will follow in the office, Problem List - Problems (1) COPD exacerbation Code(s): J44.1 - CHRONIC OBSTRUCTIVE PULMONARY DISEASE W (ACUTE) EXACERBATION (2) Diabetes 1.5, managed as type 2 Code(s): E13.9 - OTHER SPECIFIED DIABETES MELLITUS WITHOUT COMPLICATIONS (3) CHF, acute on chronic Code(s): I50.9 - HEART FAILURE, UNSPECIFIED Qualifiers: Congestive heart failure type: diastolic Qualified Code(s): I50.33 - Acute on chronic diastolic (congestive) heart failure (4) Constipation Code(s): K59.00 - CONSTIPATION, UNSPECIFIED Qualifiers: Constipation type: unspecified constipation type Qualified Code(s): K59.00 - Constipation, unspecified
--- NOTE | 2016-06-24 08:00 | DS ---
Physical Examination Vital Signs: Vital Signs Temperature 98 F 06/24/16 06:00 Pulse Rate 77 06/24/16 06:00 Respiratory Rate 18 06/24/16 06:00 Blood Pressure 131/73 06/24/16 06:00 O2 Sat by Pulse Oximetry (%) 94 L 06/23/16 21:00 Constitutional: Yes: No Distress, Calm Eyes: Yes: Conjunctiva Clear, EOM Intact HENT: Yes: Atraumatic, Normocephalic Neck: Yes: Supple, Trachea Midline Cardiovascular: Yes: Regular Rate and Rhythm Respiratory: Yes: Regular, Diminished, On Nasal O2, SOB, SOB on Exertion Gastrointestinal: Yes: Normal Bowel Sounds, Soft, Abdomen, Obese. No: Ascites, Hyperactive Bowel Sounds, Hypoactive Bowel Sounds, Palpable Mass, Pulsatile Mass , Splenomegaly, Tenderness, Tenderness, Epigastrium, Tenderness, Rebound, Vomiting ...Rectal Exam: Yes: Deferred Renal/: No: Anuria, Bladder Distention, CVA Tenderness - Left, CVA Tenderness - Right Breast(s): Yes: WNL, Left, Right Musculoskeletal: No: Back Pain, Joint Stiffness, Joint Swelling, Muscle Pain Extremities: No: Amputation, Calf Tenderness, Cold, Cyanosis Edema: No Neurological: Yes: WNL, Alert, Oriented ...Motor Strength: WNL Psychiatric: Yes: WNL Labs: CBC, BMP 06/23/16 07:00 Discharge Summary Reason For Visit: SOB Current Active Problems ASHD (arteriosclerotic heart disease) (Acute) CHF, acute on chronic (Acute) Constipation (Acute) S/P CABG (coronary artery bypass graft) (Acute) Shortness of breath (Acute) Condition: Improved - Instructions Referrals: Sunil Moseley MD [Primary Care Provider] - Disposition: HOME - Home Medications Comprehensive Discharge Medication List: Ambulatory Orders Aspirin [ASA -] 81 mg PO DAILY 06/24/14 Pravastatin Sodium [Pravachol -] 40 mg PO HS 10/12/14 Insulin (Levemir) [Levemir Flexpen -] 30 units SQ HS #1 pen 10/14/14 Sitagliptin Phosphate [Januvia -] 25 mg PO DAILY@0700 #90 tab 10/14/14 Furosemide [Lasix -] 40 mg PO BID #30 tablet 03/01/16
[2016-06-24 08:21] LABS: BASOPHIL 0.9 % (0-2.0); EOSINOPHIL 2.4 % (0-4.5); MCHC 32.6 g/dl (32.0-35.9); MEAN PLT VOLUME 8.5 fl (7.5-11.1); NEUTROPHILS 76.9 % (42.8-82.8); PLATELET COUNT 175 K/MM3 (134-434); RDW 14.9 % (11.9-15.9); WHITE BLOOD COUNT 9.1 K/mm3 (4.0-10.0)
[2016-06-24 16:25] VITALS: BP 164/71; PULSE 80; TEMP 97.5
== END 2016-06-24 09:19 | disposition home or self-care (01) | DRG 190 ==
LOC: JER 13:23 → JERBED 18:38 → J8W 21:09
PROVIDERS: ADMIT Internal Medicine; ATTEND Internal Medicine
DX: J44.0 Chronic obstructive pulmonary disease with (acute) lower respiratory infection (principal); I50.33 Acute on chronic diastolic (congestive) heart failure; J98.11 Atelectasis; K51.80 Other ulcerative colitis without complications; I11.0 Hypertensive heart disease with heart failure; J44.1 Chronic obstructive pulmonary disease with (acute) exacerbation; I25.10 Atherosclerotic heart disease of native coronary artery without angina pectoris; E11.9 Type 2 diabetes mellitus without complications; G47.33 Obstructive sleep apnea (adult) (pediatric); G31.84 Mild cognitive impairment of uncertain or unknown etiology; M19.90 Unspecified osteoarthritis, unspecified site; K59.00 Constipation, unspecified; I27.2 Other secondary pulmonary hypertension; J61 Pneumoconiosis due to asbestos and other mineral fibers; J20.9 Acute bronchitis, unspecified; Z87.891 Personal history of nicotine dependence; Z99.81 Dependence on supplemental oxygen; Z95.1 Presence of aortocoronary bypass graft
CPT/HCPCS: 36415; 71020-TC; 71250-TC; 74176-TC; 80053; 80061; 81003; 81015; 82550; 83036; 83605; 83721; 83735; 83880; 84100; 84484; 85025; 85027; 87254; 87804; 93005; 93010; 94640; 99284-25; J1644; Q9967

== ENCOUNTER 2017-03-02 10:11 | Inpatient (IN) | payer OTHER ==
[2017-03-02 10:17] VITALS: BMI 41.5
--- NOTE | 2017-03-02 10:52 | PDOC ---
History of Present Illness <Regan Baker - Last Filed: 03/02/17 13:48> - History of Present Illness Initial Comments: 03/02/17 10:53 "The patient is an 86 year old male with a significant PMH of CABG, diabetes, CKD, and COPD (on 3L home O2) who presents to the emergency department after being sent by Dr. Moseley for evaluation of SOB and hypoxia. The patients son reports that the patient has been more short of breath than usual over the past 2 days. Pt endorses intermittent associated sharp chest pain with the SOB. The patient denies cough, denies F/C. The patient denies any new leg swelling. The patient denies headache and dizziness. Denies fever, chills, nausea, vomit, diarrhea and constipation. Denies dysuria, frequency, urgency and hematuria. Allergies: NKA Past surgical history: Quadruple bypass (30 years ago). Social history: Former smoker (30 years ago). No reported alcohol or drug use. PCP: Dr. Moseley Property Preservation Specialist: Dr. Garcia " <Jose Ramirez - Last Filed: 03/06/17 13:10> - General Chief Complaint: Respiratory Stated Complaint: SOB (PCP SENT) Time Seen by Provider: 03/02/17 10:26 Past History <Regan Baker - Last Filed: 03/02/17 13:48> - Past Medical History Anemia: No Asthma: No Cancer: No Cardiac Disorders: Yes CVA: No COPD: No CHF: No Dementia: Yes (PER FAMILY/MILD) Diabetes: Yes GI Disorders: No Disorders: No HTN: No Hypercholesterolemia: No Liver Disease: No Seizures: No Thyroid Disease: No Lung CA: No (MESOTHELIOMA) - Surgical History Abdominal Surgery: No Appendectomy: No Cardiac Surgery: Yes (CABG) Cholecystectomy: No Lung Surgery: No Neurologic Surgery: No Orthopedic Surgery: No - Immunization History Immunization Up to Date: Yes - Suicide/Smoking/Psychosocial Hx Smoking History: Former smoker Have you smoked in the past 12 months: No If you are a former smoker, when did you quit?: 30 YRS AGO Information on smoking cessation initiated: No Hx Alcohol Use: No Drug/Substance Use Hx: No Substance Use Type: None Hx Substance Use Treatment: No <Jose Ramirez - Last Filed: 03/06/17 13:10> - Past Medical History Allergies/Adverse Reactions: Allergies Allergy/AdvReac Type Severity Reaction Status Date / Time No Known Allergies Allergy Verified 03/02/17 10:17 Home Medications: Ambulatory Orders Aspirin [ASA -] 81 mg PO DAILY 06/24/14 Pravastatin Sodium [Pravachol -] 40 mg PO HS 10/12/14 Insulin (Levemir) [Levemir Flexpen -] 30 units SQ HS #1 pen 10/14/14 Sitagliptin Phosphate [Januvia -] 25 mg PO DAILY@0700 #90 tab 10/14/14 Furosemide [Lasix -] 40 mg PO BID #30 tablet 03/01/16 Polyethylene Glycol 3350 [Miralax 119 gm Btl -] 17 gm PO BID bottle 06/24/16 Review of Systems - Review of Systems Comments:: 03/02/17 10:55 "GENERAL/CONSTITUTIONAL: No fever or chills. HEAD, EYES, EARS, NOSE AND THROAT: No change in vision. No ear pain or discharge. No sore throat. CARDIOVASCULAR: (+) Intermittent chest pain. (+) Shortness of breath. RESPIRATORY: No cough, wheezing, or hemoptysis. GASTROINTESTINAL: No nausea, vomiting, diarrhea or constipation. GENITOURINARY: No dysuria, frequency, or change in urination. MUSCULOSKELETAL: No joint or muscle swelling or pain. No neck or back pain. SKIN: No rash NEUROLOGIC: No headache, vertigo, loss of consciousness, or change in strength/ sensation. ENDOCRINE: No increased thirst. No abnormal weight change. HEMATOLOGIC/LYMPHATIC: No anemia, easy bleeding, or history of blood clots. ALLERGIC/IMMUNOLOGIC: No hives or skin allergy. " <Jose Ramirez - Last Filed: 03/06/17 13:10> *Physical Exam - Vital Signs Last Vital Signs Temp Pulse Resp BP Pulse Ox 98.2 F 86 24 137/79 86 L 03/02/17 10:11 03/02/17 10:11 03/02/17 10:11 03/02/17 10:11 03/02/17 10:11 <Regan Baker - Last Filed: 03/02/17 13:48> - Vital Signs Last Vital Signs Temp Pulse Resp BP Pulse Ox 98.2 F 86 24 137/79 86 L 03/02/17 10:11 03/02/17 10:11 03/02/17 10:11 03/02/17 10:11 03/02/17 10:11 - Physical Exam Comments: 03/02/17 10:55 "GENERAL: Awake, alert, and fully oriented, in no acute distress HEAD: No signs of trauma EYES: PERRLA, EOMI, sclera anicteric, conjunctiva clear ENT: Auricles normal inspection, hearing grossly normal, nares patent, oropharynx clear without exudates. Moist mucosa NECK: Nontender, no stepoffs, Normal ROM, supple, no lymphadenopathy, JVD, or masses LUNGS: Breath sounds equal, clear to auscultation bilaterally. No wheezes, and no crackles HEART: Regular rate and rhythm, normal S1 and S2, no murmurs, rubs or gallops ABDOMEN: Soft, nontender, normoactive bowel sounds. No guarding, no rebound. No masses EXTREMITIES: Normal range of motion, no edema. No clubbing or cyanosis. No cords, erythema, or tenderness NEUROLOGICAL: Cranial nerves II through XII intact. 5/5 strength and sensation in all extremities, Normal speech. SKIN: Warm, Dry, normal turgor, no rashes or lesions noted. " <Jose Ramirez - Last Filed: 03/06/17 13:10> Heart Score/ECG Review #1 03/02/17 10:58 Vent rate 83 bpm Normal sinus rhythm Septal infarct, age undetermined Abnormal ECG <Regan Baker - Last Filed: 03/02/17 13:48> ED Treatment Course - LABORATORY CBC & Chemistry Diagram: 03/02/17 10:52 03/02/17 10:52 - Consult/PCP Time Called: 12:40 Case discussed with personal care physician: Sunil Moseley Case discussed with consulting physician: Dean Garcia (12:25) <Regan Baker - Last Filed: 03/02/17 13:48> - LABORATORY CBC & Chemistry Diagram: 03/03/17 05:05 03/06/17 07:00 - RADIOLOGY Radiology Studies Ordered: Category Date Time Status CHEST X-RAY PORTABLE* [RAD] Stat Radiology 03/02/17 10:39 Ordered <Jose Ramirez - Last Filed: 03/06/17 13:10> Medical Decision Making - Medical Decision Making 03/02/17 10:50 86 M with SOB and increased O2 requirement. Will evaluate for infectious process given h/o infected bronchiectasis. Also consider pulmonary edema, though pt with no notable rales on exam or signs of volume overload. Pt has h/o PE not currently on AC, so consider w/u for acute PE. Possible COPD component as well, though pt without wheezes on exam. - Labs - CXR - Pulm consult - Admit 03/02/17 12:46 CBC,CMP WBC 8.3 K/mm3 (4.0-10.0) 03/02/17 10:52 RBC 4.42 M/mm3 (4.00-5.60) 03/02/17 10:52 Hgb 13.7 GM/dL (11.7-16.9) 03/02/17 10:52 Hct 42.6 % (35.4-49) 03/02/17 10:52 MCV 96.3 fl (80-96) H 03/02/17 10:52 MCH 31.1 pg (25.7-33.7) 03/02/17 10:52 MCHC 32.3 g/dl (32.0-35.9) 03/02/17 10:52 RDW 15.6 % (11.9-15.9) 03/02/17 10:52 Plt Count 160 K/MM3 (134-434) 03/02/17 10:52 MPV 8.3 fl (7.5-11.1) 03/02/17 10:52 Neutrophils % 71.9 % (42.8-82.8) 03/02/17 10:52 Lymphocytes % 12.3 % (8-40) D 03/02/17 10:52 Monocytes % 11.5 % (3.8-10.2) H 03/02/17 10:52 Eosinophils % 3.6 % (0-4.5) 03/02/17 10:52 Basophils % 0.7 % (0-2.0) 03/02/17 10:52 Sodium 140 mmol/L (136-145) 03/02/17 10:52 Potassium 4.4 mmol/L (3.5-5.1) 03/02/17 10:52 Chloride 93 mmol/L (98-107) L 03/02/17 10:52 Carbon Dioxide 41 mmol/L (21-32) H 03/02/17 10:52 Anion Gap 6 (8-16) L 03/02/17 10:52 BUN 28 mg/dL (7-18) H 03/02/17 10:52 Creatinine 1.5 mg/dL (0.7-1.3) H 03/02/17 10:52 Creat Clearance w eGFR 44.48 (>60) 03/02/17 10:52 Random Glucose 97 mg/dL (74-106) D 03/02/17 10:52 Lactic Acid 1.1 mmol/L (0.4-2.0) 03/02/17 10:52 Calcium 8.9 mg/dL (8.5-10.1) 03/02/17 10:52 Total Bilirubin 0.5 mg/dL (0.2-1.0) D 03/02/17 10:52 AST 14 U/L (15-37) L D 03/02/17 10:52 ALT 23 U/L (12-78) 03/02/17 10:52 Alkaline Phosphatase 60 U/L (45-117) 03/02/17 10:52 Creatine Kinase 33 IU/L (39-308) L 03/02/17 10:52 Troponin I < 0.02 ng/ml (0.00-0.05) 03/02/17 10:52 B-Natriuretic Peptide 1027.27 pg/ml (5-450) H 03/02/17 10:52 Total Protein 7.2 g/dl (6.4-8.2) 03/02/17 10:52 Albumin 3.9 g/dl (3.4-5.0) D 03/02/17 10:52 CXR with no changes. Ddimer elevated, but pt with renal insufficiency. Will defer CTA for now. Consider V/Q scan when admitted. Spoke with Drs. Garcia and Pradip, who recommends initiation of empiric abx due to pt's history of bronchiectasis. Pt with pCO2 of [address] and increased confusion. Will place on BiPAP. Pt admitted to Dr. Moseley. <Jose Ramirez - Last Filed: 03/06/17 13:10> *DC/Admit/Observation/Transfer - Attestations Scribe Attestion: 03/02/17 10:58 Documentation prepared by Regan Baker, acting as medical laboratory technical officer for Jose Ramirez MD. <Regan Baker - Last Filed: 03/02/17 13:48> - Discharge Dispostion Admit: Yes - Attestations Physician Attestion: 03/02/17 12:50 I, Dr. Jose Ramirez MD, attest that this document has been prepared under my direction and personally reviewed by me in its entirety. I further attest, that it accurately reflects all work, treatment, procedures and medical decision -making performed by me. <Jose Ramirez - Last Filed: 03/06/17 13:10> Diagnosis at time of Disposition: Shortness of breath
[2017-03-02 11:12] LABS: VENOUS PH 7.34 (7.32-7.42)
[2017-03-02 11:13] LABS: BASO % 0.7 % (0-2.0); EOS % 3.6 % (0-4.5); MCH 31.1 pg (25.7-33.7); MCHC 32.3 g/dl (32.0-35.9); MEAN CELL VOLUME 96.3 fl (80-96); MEAN PLT VOLUME 8.3 fl (7.5-11.1); NEUT % 71.9 % (42.8-82.8); PLATELET COUNT 160 K/MM3 (134-434); RDW 15.6 % (11.9-15.9); VENOUS BLOOD GAS HCO3 41.7 meq/L (19-25); WHITE BLOOD COUNT 8.3 K/mm3 (4.0-10.0)
[2017-03-02 11:27] LABS: INR 0.93 (0.82-1.09); PROTHROMBIN TIME (PATIENT) 10.5 SEC (9.98-11.88)
[2017-03-02 11:30] LABS: ACTIVATED PTT 32.1 SECONDS (26.9-34.4)
[2017-03-02 11:59] LABS: ALBUMIN 3.9 g/dl (3.4-5.0); ANION GAP 6 (8-16); BILIRUBIN,TOTAL 0.5 mg/dL (0.2-1.0); CALCIUM 8.9 mg/dL (8.5-10.1); CO2 41 mmol/L (21-32); CREATININE 1.5 mg/dL (0.7-1.3); GLUCOSE,RANDOM 97 mg/dL (74-106); SGOT/AST 14 U/L (15-37); SGPT/ALT 23 U/L (12-78); TOT PROT 7.2 g/dl (6.4-8.2)
[2017-03-02 12:02] LABS: ALK PHOS 60 U/L (45-117); CPK 33 IU/L (39-308); TROPONIN I < 0.02 ng/ml (0.00-0.05)
--- NOTE | 2017-03-02 12:41 | EKG ---
Test Reason : Blood Pressure : / mmHG Vent. Rate : 083 BPM Atrial Rate : 083 BPM P-R Int : 130 ms QRS Dur : 112 ms QT Int : 384 ms P-R-T Axes : 097 -23 068 degrees QTc Int : 451 ms NORMAL SINUS RHYTHM SEPTAL INFARCT , AGE UNDETERMINED ABNORMAL ECG WHEN COMPARED WITH ECG OF 22-JUN-2016 18:27, NONSPECIFIC T WAVE ABNORMALITY NO LONGER EVIDENT IN INFERIOR LEADS Confirmed by GORDON PHAM, ZACH ([id number]) on 03/02/2017 12:41:34 PM Referred By: Confirmed By:ZACH LEYVA MD
[2017-03-02] MEDS ORDERED: VANCOMYCIN 1 GRAM (PRE-DOCKED) 1,000 MG/250 ML BAG IVPB ONE ×2 (12:43→12:57)
[2017-03-02] MEDS ORDERED: PIPERACILLIN/TAZOB 4.5 GM/100 ML PRE-DOCKED IVPB ONE (12:45)
[2017-03-02] MEDS ORDERED: PIPERACILLIN/TAZOB 4.5 GM 4.5 GM/100 ML BAG IVPB ONE (12:57)
--- NOTE | 2017-03-02 13:49 | HP ---
Admitting History and Physical - Admission Chief Complaint: 86 y.o pt presented with acute change in MS, chills, SOB, incontinence last night accomponied with his and son. Hypoxemic in the office O2SAT on 2.5L/min O2-78%. Sent to [facility] for further management. History of Present Illness: Persistent 6.7cm left basilar atelectasis/consolidation. CABG ASHD. DM type on Levemir/Januvia.. CRI. 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 JUAN-not using CPAP. History Source: Patient, Family Member, Medical Record Limitations to Obtaining History: Clinical Condition - Past Medical History [employer]IP'S MASTER: Yes: Other (Mild cognitive impairment) Cardiovascular: Yes: CAD, HTN Pulmonary: Yes: COPD, Sleep Apnea, Other (Extensive pleural disease. 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 History of Recent Travel: No Home Medications - Allergies Allergies/Adverse Reactions: Allergies Allergy/AdvReac Type Severity Reaction Status Date / Time No Known Allergies Allergy Verified 03/02/17 10:17 - Home Medications Home Medications: Ambulatory Orders Aspirin [ASA -] 81 mg PO DAILY 06/24/14 Pravastatin Sodium [Pravachol -] 40 mg PO HS 10/12/14 Insulin (Levemir) [Levemir Flexpen -] 30 units SQ HS #1 pen 10/14/14 Sitagliptin Phosphate [Januvia -] 25 mg PO DAILY@0700 #90 tab 10/14/14 Furosemide [Lasix -] 40 mg PO BID #30 tablet 03/01/16 Polyethylene Glycol 3350 [Miralax 119 gm Btl -] 17 gm PO BID bottle 06/24/16 Review of Systems - Review of Systems Constitutional: reports: Chills, Diaphoresis, Weakness. denies: Loss of Appetite, Unintentional Wgt. Loss Eyes: reports: No Symptoms HENT: denies: Difficult Swallowing, Mouth Swelling, Ocular Prosthesis, Ringing in Ears Neck: reports: Decreased ROM. denies: Lumps, Pain on Movement, Stiffness, Swollen Glands, Tenderness Cardiovascular: reports: Shortness of Breath. denies: Chest Pain, Edema, Palpitations Respiratory: reports: Cough, Snoring, SOB. denies: Orthopnea, Wheezing Gastrointestinal: reports: Constipation. denies: Abdominal Pain, Bloating, Dysphagia, Nausea, Vomiting, Vomiting Blood Genitourinary: denies: Burning, Discharge Breasts: reports: No Symptoms Reported Musculoskeletal: denies: Crepitus, Decreased ROM, Joint Pain, Joint Swelling Integumentary: reports: No Symptoms Neurological: reports: Change in LOC, Confusion Endocrine: denies: Excessive Sweating, Flushing, Unexplained Weight Gain, Unexplained Weight Loss Psychiatric: reports: Altered Sleep Pattern. denies: Panic, Paranoia, Suicidal Physical Examination Vital Signs: Vital Signs Temperature 98.2 F 03/02/17 10:11 Pulse Rate 86 03/02/17 10:11 Respiratory Rate 24 03/02/17 10:11 Blood Pressure 137/79 03/02/17 10:11 O2 Sat by Pulse Oximetry (%) 98 03/02/17 13:00 Constitutional: Yes: Anxious, Moderate Distress, Obese, Pallor Eyes: Yes: Conjunctiva Clear, EOM Intact, PERRL HENT: Yes: Atraumatic, Normocephalic. No: Drooling Neck: Yes: Supple, Trachea Midline Cardiovascular: Yes: Regular Rate and Rhythm. No: Bradycardia, Tachycardia Respiratory: Yes: Accessory Muscle Use, Cough, Diminished (LLL>RLL) Gastrointestinal: Yes: Normal Bowel Sounds, Soft, Abdomen, Obese. No: Ascites, Palpable Mass, Tenderness ...Rectal Exam: Yes: Deferred Renal/: No: Anuria Breast(s): Yes: WNL Musculoskeletal: Yes: WNL Extremities: No: Calf Tenderness, Cold, Cyanosis Edema: No Integumentary: Yes: WNL Neurological: Yes: Alert, Oriented, Confusion (Improved). No: Aphasia, Dysarthria, Seizure ...Motor Strength: WNL Labs: CBC, BMP 03/02/17 10:52 03/02/17 10:52 Imaging - Results Chest X-ray: Report Reviewed Problem List - Problems (1) Shortness of breath Assessment/Plan: Acute illness with chills, worsened hypoxia-r/o PNA, CAP, R/o bronchiectasis infection CT chest. IV ABX Blood cx-P. Code(s): R06.02 - SHORTNESS OF BREATH (2) ASHD (arteriosclerotic heart disease) Assessment/Plan: Continue Furosemide, statins, Toprol Code(s): I25.10 - ATHSCL HEART DISEASE OF [place] CORONARY ARTERY W/O ANG PCTRS
[2017-03-02] MEDS ORDERED: FUROSEMIDE 40 MG TABLET (FP) ONE (14:15)
[2017-03-02] MEDS: FUROSEMIDE 40 MG TABLET (FP) PO SCH (14:16)
[2017-03-02] MEDS: INSULIN SLIDING SCALE (NOVOLOG) 1 VIAL SQ SCH ×2 (17:44→22:56)
[2017-03-02] MEDS ORDERED: METRONIDAZOLE 500 MG PREMIXED 500 MG/100 ML MG IVPB ONE (18:42)
[2017-03-02] MEDS: METRONIDAZOLE 500 MG PREMIXED 500 MG/100 ML MG IVPB SCH (18:48)
[2017-03-02] MEDS ORDERED: INSULIN DETEMIR 100 UNITS/ML MDV SQ SCH (22:00)
[2017-03-02] MEDS: POLYETHYLENE GLYCOL 3350 119 GM BTL PO SCH (23:23)
[2017-03-02] MEDS: ATORVASTATIN CA 10 MG TABLET (FP) PO SCH (23:24)
[2017-03-03] MEDS: METRONIDAZOLE 500 MG PREMIXED 500 MG/100 ML MG IVPB SCH ×3 (03:41→17:46)
[2017-03-03] MEDS: INSULIN SLIDING SCALE (NOVOLOG) 1 VIAL SQ SCH ×4 (06:39→21:23)
[2017-03-03] MEDS: sitaGLIPtin PHOSPHATE 25 MG TABLET (FP) PO SCH (06:42)
[2017-03-03] MEDS: FUROSEMIDE 40 MG TABLET (FP) PO SCH ×2 (06:42→15:29)
[2017-03-03 07:24] LABS: EOS % 4.9 % (0-4.5); MCH 30.8 pg (25.7-33.7); MCHC 32.1 g/dl (32.0-35.9); MEAN CELL VOLUME 95.9 fl (80-96); MEAN PLT VOLUME 8.7 fl (7.5-11.1); NEUT % 63.2 % (42.8-82.8); PLATELET COUNT 150 K/MM3 (134-434); RDW 15.4 % (11.9-15.9); WHITE BLOOD COUNT 6.8 K/mm3 (4.0-10.0)
--- NOTE | 2017-03-03 07:58 | PN ---
Progress Note, Physician Chief Complaint: c/O DYSPNEA, COUGH History of Present Illness: Persistent 6.7cm left basilar atelectasis/consolidation. CABG ASHD. DM type on Levemir/Januvia.. CRI. 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 JUAN-not using CPAP. - Current Medication List Current Medications: Active Medications Aspirin (Asa -) 81 mg PO DAILY [facility] Atorvastatin Calcium (Lipitor -) 10 mg PO HS [facility] Last Admin: 03/02/17 23:24 Dose: 10 mg Furosemide (Lasix -) 40 mg PO BIDLASIX [facility] Last Admin: 03/03/17 06:42 Dose: 40 mg CEFTRIAXONE 1 G/50 ML PREMIX (Ceftriaxone 1 Gm-D5w Bag) 50 mls @ 100 mls/hr IVPB DAILY [facility] Metronidazole (Flagyl 500mg Premixed Ivpb -) 500 mg in 100 mls @ 100 mls/hr IVPB Q8H-IV [facility] Last Admin: 03/03/17 03:41 Dose: 100 mls/hr Insulin Aspart (Novolog Vial Sliding Scale -) 1 vial SQ ACHS [facility] PRN Reason: Protocol Last Admin: 03/03/17 06:39 Dose: Not Given Insulin Detemir (Levemir Vial) 20 units SQ HS [facility] Polyethylene Glycol (Miralax (For Daily Use) -) 17 gm PO BID [facility] Last Admin: 03/02/17 23:23 Dose: 17 gm Sitagliptin Phosphate (Januvia -) 25 mg PO DAILY@0700 [facility] Last Admin: 03/03/17 06:42 Dose: 25 mg - Objective Vital Signs: Vital Signs Temperature 97.8 F 03/03/17 05:16 Pulse Rate 82 03/03/17 05:16 Respiratory Rate 20 03/03/17 05:16 Blood Pressure 137/87 03/03/17 05:16 O2 Sat by Pulse Oximetry (%) 95 03/02/17 21:51 Constitutional: Yes: Moderate Distress, Obese Eyes: Yes: Conjunctiva Clear, EOM Intact HENT: Yes: Atraumatic, Normocephalic Neck: Yes: Supple, Trachea Midline Cardiovascular: Yes: Pulse Irregular (apc, vpc) Respiratory: Yes: Cough, Diminished (lOW LOBES,) Gastrointestinal: Yes: Soft, Abdomen, Obese. No: Ascites, Palpable Mass ...Rectal Exam: Yes: Deferred Genitourinary: No: Anuria, Bladder Distention, CVA Tenderness - Left, CVA Tenderness - Right Breast(s): Yes: WNL Musculoskeletal: No: Joint Stiffness, Joint Swelling Extremities: No: Calf Tenderness, Cyanosis, Delayed Capillary Refill Edema: Yes Edema: LLE: 2+, RLE: 2+ Integumentary: Yes: WNL Neurological: Yes: Alert, Oriented, Other ([place]) ...Motor Strength: WNL Psychiatric: Yes: WNL Labs: CBC, BMP 03/03/17 05:05 INR, PTT INR 0.93 (0.82-1.09) 03/02/17 10:52 Laboratory Results - last 24 hr 03/02/17 03/02/17 03/02/17 10:52 10:52 10:52 WBC 8.3 RBC 4.42 Hgb 13.7 Hct 42.6 MCV 96.3 H MCH 31.1 MCHC 32.3 RDW 15.6 Plt Count 160 MPV 8.3 Neutrophils % 71.9 Lymphocytes % 12.3 D Monocytes % 11.5 H Eosinophils % 3.6 Basophils % 0.7 PT with INR INR PTT (Actin FS) D-Dimer VBG pH POC VBG pCO2 POC VBG pO2 Mixed VBG HCO3 Sodium 140 Potassium 4.4 Chloride 93 L Carbon Dioxide 41 H Anion Gap 6 L BUN 28 H Creatinine 1.5 H Creat Clearance w eGFR 44.48 POC Glucometer Random Glucose 97 D Lactic Acid Calcium 8.9 Total Bilirubin 0.5 D AST 14 L D ALT 23 Alkaline Phosphatase 60 Creatine Kinase 33 L Troponin I < 0.02 B-Natriuretic Peptide 1027.27 H Total Protein 7.2 Albumin 3.9 D Blood Type Antibody Screen 03/02/17 03/02/17 03/02/17 10:52 10:52 10:52 WBC RBC Hgb Hct MCV MCH MCHC RDW Plt Count MPV Neutrophils % Lymphocytes % Monocytes % Eosinophils % Basophils % PT with INR 10.50 INR 0.93 PTT (Actin FS) 32.1 D-Dimer 368 H VBG pH 7.34 POC VBG pCO2 79.8 H* D POC VBG pO2 30.1 D Mixed VBG HCO3 41.7 H* Sodium Potassium Chloride Carbon Dioxide Anion Gap BUN Creatinine Creat Clearance w eGFR POC Glucometer Random Glucose Lactic Acid 1.1 Calcium Total Bilirubin AST ALT Alkaline Phosphatase Creatine Kinase Troponin I B-Natriuretic Peptide Total Protein Albumin Blood Type Antibody Screen 03/02/17 03/02/17 03/02/17 10:52 17:38 22:50 WBC RBC Hgb Hct MCV MCH MCHC RDW Plt Count MPV Neutrophils % Lymphocytes % Monocytes % Eosinophils % Basophils % PT with INR INR PTT (Actin FS) D-Dimer VBG pH POC VBG pCO2 POC VBG pO2 Mixed VBG HCO3 Sodium Potassium Chloride Carbon Dioxide Anion Gap BUN Creatinine Creat Clearance w eGFR POC Glucometer 90.67358 128 Random Glucose Lactic Acid Calcium Total Bilirubin AST ALT Alkaline Phosphatase Creatine Kinase Troponin I B-Natriuretic Peptide Total Protein Albumin Blood Type O POSITIVE Antibody Screen Negative 03/03/17 03/03/17 05:05 06:15 WBC 6.8 RBC 4.27 Hgb 13.2 Hct 41.0 MCV 95.9 MCH 30.8 MCHC 32.1 RDW 15.4 Plt Count 150 MPV 8.7 Neutrophils % 63.2 Lymphocytes % 20.6 D Monocytes % 10.3 H Eosinophils % 4.9 H Basophils % 1.0 PT with INR INR PTT (Actin FS) D-Dimer VBG pH POC VBG pCO2 POC VBG pO2 Mixed VBG HCO3 Sodium Potassium Chloride Carbon Dioxide Anion Gap BUN Creatinine Creat Clearance w eGFR POC Glucometer 99 Random Glucose Lactic Acid Calcium Total Bilirubin AST ALT Alkaline Phosphatase Creatine Kinase Troponin I B-Natriuretic Peptide Total Protein Albumin Blood Type Antibody Screen - ....Imaging Cat Scan: Report Reviewed Problem List - Problems (1) Shortness of breath Assessment/Plan: ild WITH co2 RETENTION. CONTINUE BIPAP, PULM CONSULT PT abg-p Code(s): R06.02 - SHORTNESS OF BREATH (2) ASHD (arteriosclerotic heart disease) Assessment/Plan: Continue Furosemide, statins, Toprol Code(s): I25.10 - ATHSCL HEART DISEASE OF [place] CORONARY ARTERY W/O ANG PCTRS (3) Bronchiectasis with (acute) exacerbation Assessment/Plan: cONTINUE iv aBX. fOLLOW BLD CX. Code(s): J47.1 - BRONCHIECTASIS WITH (ACUTE) EXACERBATION (4) DM type 2 (diabetes mellitus, type 2) Assessment/Plan: lEVEMIR 20 UNITS. fOLLOW bgm Code(s): E11.9 - TYPE 2 DIABETES MELLITUS WITHOUT COMPLICATIONS Qualifiers: Chronic kidney disease stage: stage 3 (moderate)
[2017-03-03 08:17] LABS: ALBUMIN 3.3 g/dl (3.4-5.0); ALK PHOS 52 U/L (45-117); ANION GAP 4 (8-16); BILIRUBIN,TOTAL 0.5 mg/dL (0.2-1.0); CALCIUM 8.3 mg/dL (8.5-10.1); CHOLESTEROL 153 mg/dL (50-200); CO2 40 mmol/L (21-32); CREATININE 1.4 mg/dL (0.7-1.3); GLUCOSE,RANDOM 89 mg/dL (74-106); MAGNESIUM 2.2 mg/dL (1.8-2.4); PHOSPHOROUS 2.8 mg/dL (2.5-4.9); SGOT/AST 15 U/L (15-37); SGPT/ALT 22 U/L (12-78); TOT PROT 6.5 g/dl (6.4-8.2)
[2017-03-03] MEDS ORDERED: MAGNESIUM CITRATE 300 ML BOTTLE PO ONE ×2 (08:45→11:30)
[2017-03-03] MEDS ORDERED: BISACODYL 5 MG TABLET.DR (FP) PO ONE ×2 (08:45→11:30)
--- NOTE | 2017-03-03 09:52 | CON.CARD ---
Consult Consult Specialty:: Cardiology Referred by:: Dr. Moseley Reason for Consultation:: SOB, hypoxia - History of Present Illness Chief Complaint: SOB, hypoxia History of Present Illness: 86-year-old man with a history of CAD s/p CABG, mild , DMII, CKD, Chronic lung disease due to occupational exposures, JUAN, pulmonary HTN admitted with sob and hypoxia. Pt seen and examined today in [facility]. He states that he is feeling better since admission. Denies any chest pain, no palpitations, pnd, orthopnea, or LE edema. no lightheadedness, dizziness, syncope. - History Source History Provided By: Patient, Family Member, Medical Record Limitations to Obtaining History: Poor Historian - Past Medical History [employer]: Yes: Other (Mild cognitive impairment) Cardio/Vascular: Yes: Aortic Stenosis, CAD, HTN, Hyperlipdemia Pulmonary: Yes: COPD, Sleep Apnea, Other (Extensive pleural disease. 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 History of Recent Travel: No Home Medications - Allergies Allergies/Adverse Reactions: Allergies Allergy/AdvReac Type Severity Reaction Status Date / Time No Known Allergies Allergy Verified 03/02/17 10:17 - Home Medications Home Medications: Ambulatory Orders Aspirin [ASA -] 81 mg PO DAILY 06/24/14 Pravastatin Sodium [Pravachol -] 40 mg PO HS 10/12/14 Insulin (Levemir) [Levemir Flexpen -] 30 units SQ HS #1 pen 10/14/14 Sitagliptin Phosphate [Januvia -] 25 mg PO DAILY@0700 #90 tab 10/14/14 Furosemide [Lasix -] 40 mg PO BID #30 tablet 03/01/16 Polyethylene Glycol 3350 [Miralax 119 gm Btl -] 17 gm PO BID bottle 06/24/16 Family Disease History - Family Disease History Family History: Denies Review of Systems - Review of Systems Constitutional: reports: Malaise. denies: No Symptoms, Chills, Diaphoresis, Fever, Lethargy, Loss of Appetite, Night Sweats, Unintentional Wgt. Loss, Weakness, Other Eyes: denies: No Symptoms, Blind Spots, Blurred Vision, Double Vision, Eye Pain , Floaters, Photophobia, Recent Change in Vision, Other HENT: denies: No Symptoms, Difficult Swallowing, Ear Discharge, Ear Pain, Epistaxis, Gingival Bleeding, Hearing Loss, Mouth Swelling, Nasal Congestion, Ocular Prosthesis, Throat Pain, Toothache, Ringing in Ears, Other Neck: denies: No Symptoms, Decreased ROM, Lumps, Pain on Movement, Stiffness, Swollen Glands, Tenderness, Other Cardiovascular: reports: Shortness of Breath. denies: No Symptoms, Chest Pain, Edema, Palpitations, Other Respiratory: reports: Exercise Intolerance, SOB, SOB on Exertion. denies: No Symptoms, Cough, Hemoptysis, Orthopnea, PND, Snoring, Wheezing, Other Gastrointestinal: denies: No Symptoms, Abdominal Pain, Bloating, Constipation, Diarrhea, Dysphagia, Indigestion, Melena, Nausea, Rectal Bleeding, Vomiting, Vomiting Blood, Other Genitourinary: denies: No Symptoms, Burning, Discharge, Dysuria, Flank Pain, Frequency, Hematuria, Incontinence, Lesions, Menses, Pain, Testicular Mass, Testicular Pain, Testicular Swelling, Urgency, Vaginal Bleeding, Other Breasts: denies: No Symptoms Reported, See HPI, Breast Implants, Discharge from Nipple, Lumps, Pain, Skin Changes, Other Musculoskeletal: denies: No Symptoms, Back Pain, Crepitus, Decreased ROM, Extremity Pain, Joint Pain, Joint Swelling, Muscle Pain, Muscle Cramps, Muscle Weakness, Other Integumentary: denies: No Symptoms, Blister, Bruising, Change in Color, Eczema, Erythema, Incision, Lesions, Lump, Pallor, Pruritis, Rash, Wound, Other Neurological: denies: No Symptoms, Change in LOC, Change in Speech, Confusion, Dizziness, Headache, Incoordination, Numbness, Parasthesia, Pre-Existing Deficit , Seizure, Syncope, Tremors, Unsteady Gait, Weakness, Other Endocrine: denies: No Symptoms, Excessive Sweating, Flushing, Increased Hunger, Increased Thirst, Intolerance to Cold, Intolerance to Heat, Unexplained Weight Gain, Unexplained Weight Loss, Other Hematology/Lymphatic: denies: No Symptoms, Easily Bruised, Excessive Bleeding, Swollen Glands, Other Psychiatric: denies: No Symptoms, Altered Sleep Pattern, Anxiety, Depression, Hallucinations, Panic, Paranoia, Suicidal, Other - Risk Factors Known Risk Factors: Yes: Age, Hypercholesterolemia, Hypertension Vital Signs: Vital Signs Temperature 97.8 F 03/03/17 05:16 Pulse Rate 82 03/03/17 05:16 Respiratory Rate 20 03/03/17 05:16 Blood Pressure 137/87 03/03/17 05:16 O2 Sat by Pulse Oximetry (%) 95 03/02/17 21:51 Constitutional: Yes: No Distress, Calm, Obese Eyes: Yes: WNL, Conjunctiva Clear, EOM Intact, PERRL HENT: Yes: WNL, Atraumatic, Normocephalic Neck: Yes: WNL, Supple, Trachea Midline Respiratory: Yes: Regular, On Nasal O2, Rhonchi. No: Rales, SOB, Wheezes Gastrointestinal: Yes: WNL, Normal Bowel Sounds, Soft. No: Distention, Tenderness Cardiovascular: Yes: Regular Rate and Rhythm. No: Bradycardia, Tachycardia, Pulse Irregular, Gallop, Rub, Varicosities JVD: No Carotid Bruit: No PMI: Non-Displaced Heart Sounds: Yes: S1, S2. No: Split S2, S3, S4, Clicks, Gallop, Rub, Bruit Murmur: No: Systolic Murmur, Diastolic Murmur Musculoskeletal: Yes: WNL Extremities: Yes: WNL Edema: Yes Edema: LLE: Trace, RLE: Trace Peripheral Pulses WNL: Yes Peripheral Pulses: 2+ Left Doralis Pedis, 2+ Right Dorsalis Pedis Integumentary: Yes: WNL Neurological: Yes: Alert, Oriented Psychiatric: Yes: Alert, Oriented - Other Data Labs, Other Data: CBC, BMP 03/03/17 05:05 03/03/17 05:05 INR, PTT INR 0.93 (0.82-1.09) 03/02/17 10:52 Troponin, BNP 03/02/17 03/02/17 10:52 10:52 Troponin I < 0.02 B-Natriuretic Peptide 1027.27 H Troponin, BNP 03/02/17 03/02/17 10:52 10:52 Troponin I < 0.02 B-Natriuretic Peptide 1027.27 H ekg-NSR 83bpm, poor R progression, septal infarct, borderline RBBB, nonspecific ST abnl Echo: Report Reviewed Prior Cardiac Procedures: CABG Imaging - Results Chest X-ray: Report Reviewed, Image Reviewed EKG: Report Reviewed, Image Reviewed Other: Report Reviewed, Image Reviewed (tele-nsr, pvcs, vent couplets) Assessment/Plan 86-year-old man with a history of CAD s/p CABG, mild , DMII, CKD, Chronic lung disease due to occupational exposures, JUAN, pulmonary HTN admitted with sob and hypoxia. SOB/Hypoxia-likely secondary to acute on chronic lung disease -improved with intermittent bipap now on nasal cannula -echo report reviewed technically very difficult study but reported hyperdynamic LV function, mod AR -currently overall euvolemic -cont Lasix 40mg po bid -pulmonary evaluating CAD-h/o CABG -stable -cont ASA and Lipitor -echo as above HTN-adequate without medical therapy -monitor for now Cardioymopathy-variable LV function in the past -echo as above -outpatient f/up
[2017-03-03] MEDS: ASPIRIN 81 MG CHEWABLE TABLETS PO SCH (10:55)
[2017-03-03] MEDS: CEFTRIAXONE 1 G/50 ML PREMIX 50 ML IVPB SCH (10:56)
[2017-03-03 11:04] LABS: URINE APPEARANCE CLEAR; URINE BILIRUBIN NEGATIVE (NEGATIVE); URINE BLOOD NEGATIVE (NEGATIVE); URINE COLOR YELLOW; URINE GLUCOSE (UA) NEGATIVE (NEGATIVE); URINE KETONE NEGATIVE (NEGATIVE); URINE LEUK ESTERASE NEGATIVE (NEGATIVE); URINE NITRITE NEGATIVE (NEGATIVE); URINE PROTEIN NEGATIVE (NEGATIVE); URINE UROBILINOGEN NEGATIVE mg/dL (0.2-1.0)
[2017-03-03] MEDS: POLYETHYLENE GLYCOL 3350 119 GM BTL PO SCH ×2 (11:09→21:23)
[2017-03-03] MEDS ORDERED: INSULIN (NOVOLOG) ASPART 100 UNITS/ML 10ML VIAL ONE (11:22)
--- NOTE | 2017-03-03 12:01 | CONSULT ---
Consultation: REQUESTING PROVIDER: CONSULT REQUEST: We have been asked to medically evaluate this patient for hypoxia. 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 Per EMR, he went to his PCP, was found to be hypoxic o 78% on 2.5L of O2, and so was sent to the hospital. Per patient, he endorses a chronic cough with occasional clear sputum, sore throat, sporadic wheezing, and constipation. He denies sick contacts, recent travel, fevers, chills, rhinorrhea , nasal congestion, orthopnea, increase in LE swelling, chest pain, abdominal pain, n/v/d, and dysuria. He states that he takes his medications as directed. He states that he has no idea what is causing his SOB. 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 Lives at home with . REVIEW OF SYSTEMS: CONSTITUTIONAL: Absent: fever, diaphoresis, generalized weakness, malaise, loss of appetite, weight change present: chills HEENT: Absent: rhinorrhea, nasal congestion, throat swelling, difficulty swallowing, mouth swelling, ear pain, eye pain, visual changes present: throat pain CARDIOVASCULAR: Absent: chest pain, syncope, palpitations, irregular heart rate, lightheadedness , peripheral edema RESPIRATORY: Absent: orthopnea, stridor, hemoptysis present: cough, SOB, wheezing GASTROINTESTINAL: Absent: abdominal pain, abdominal distension, nausea, vomiting, diarrhea, melena , hematochezia present: constipation GENITOURINARY: Absent: dysuria, frequency, urgency, hesitancy, hematuria, flank pain, genital pain MUSCULOSKELETAL: Absent: myalgia, arthralgia, joint swelling, back pain, neck pain SKIN: Absent: rash, itching, pallor HEMATOLOGIC/IMMUNOLOGIC: Absent: easy bleeding, easy bruising, lymphadenopathy, frequent infections ENDOCRINE: Absent: unexplained weight gain, unexplained weight loss, heat intolerance, cold intolerance NEUROLOGIC: Absent: headache, focal weakness or paresthesias, dizziness, unsteady gait, seizure present: AMS PSYCHIATRIC: Absent: anxiety, depression, suicidal or homicidal ideation, hallucinations. PHYSICAL EXAMINATION Vital Signs - 24 hr 03/02/17 03/02/17 03/02/17 13:00 14:30 15:05 Temperature Pulse Rate 78 Pulse Rate [ 78 Right Radial] Respiratory 18 16 Rate Blood Pressure 125/67 Blood Pressure 138/77 [Left Arm] O2 Sat by Pulse 98 95 100 Oximetry (%) 03/02/17 03/02/17 03/02/17 19:01 19:15 21:51 Temperature Pulse Rate 86 Pulse Rate [ 74 Right Radial] Respiratory 18 18 Rate Blood Pressure Blood Pressure 127/72 [Left Arm] O2 Sat by Pulse 99 98 95 Oximetry (%) 03/02/17 03/03/17 03/03/17 22:00 00:00 02:00 Temperature 97.3 F L 97.9 F Pulse Rate 76 73 Pulse Rate [ Right Radial] Respiratory 18 18 20 Rate Blood Pressure 133/77 149/71 Blood Pressure [Left Arm] O2 Sat by Pulse Oximetry (%) 03/03/17 03/03/17 03/03/17 05:16 09:56 10:00 Temperature 97.8 F 98.1 F Pulse Rate 82 75 77 Pulse Rate [ Right Radial] Respiratory 20 20 Rate Blood Pressure 137/87 130/68 Blood Pressure [Left Arm] O2 Sat by Pulse 94 L Oximetry (%) GENERAL: elderly male, awake, alert, and fully oriented, sitting in bed, in no acute distress. HEENT: no pharyngeal erythema NECK: Normal range of motion, supple without lymphadenopathy, JVD, or masses. LUNGS: left basilar rale HEART: Regular rate and rhythm, normal S1 and S2 without murmur, rub or gallop. ABDOMEN: Soft, nontender, not distended, normoactive bowel sounds, no guarding, no rebound, no masses. No hepatomegaly or splenomegaly. MUSCULOSKELETAL: b/l 1+ LE edema NEUROLOGICAL: Cranial nerves II-XII intact. Normal speech. PSYCHIATRIC: Cooperative. Good eye contact. Appropriate mood and affect. SKIN: Warm, dry, normal turgor, no rashes or lesions noted. Laboratory Results - last 24 hr 03/02/17 03/02/17 03/02/17 10:52 10:52 10:52 WBC RBC Hgb Hct MCV MCH MCHC RDW Plt Count MPV Neutrophils % Lymphocytes % Monocytes % Eosinophils % Basophils % PT with INR 10.50 INR 0.93 PTT (Actin FS) 32.1 D-Dimer 368 H Sodium 140 Potassium 4.4 Chloride 93 L Carbon Dioxide 41 H Anion Gap 6 L BUN 28 H Creatinine 1.5 H Creat Clearance w eGFR 44.48 POC Glucometer Random Glucose 97 D Hemoglobin A1c % Lactic Acid 1.1 Calcium 8.9 Phosphorus Magnesium Total Bilirubin 0.5 D AST 14 L D ALT 23 Alkaline Phosphatase 60 Creatine Kinase 33 L Troponin I < 0.02 Total Protein 7.2 Albumin 3.9 D Triglycerides Cholesterol Total LDL Cholesterol HDL Cholesterol Urine Color Urine Appearance Urine pH Ur Specific [place] Urine Protein Urine Glucose (UA) Urine Ketones Urine Blood Urine Nitrite Urine Bilirubin Urine Urobilinogen Blood Type Antibody Screen 03/02/17 03/02/17 03/02/17 10:52 17:38 22:50 WBC RBC Hgb Hct MCV MCH MCHC RDW Plt Count MPV Neutrophils % Lymphocytes % Monocytes % Eosinophils % Basophils % PT with INR INR PTT (Actin FS) D-Dimer Sodium Potassium Chloride Carbon Dioxide Anion Gap BUN Creatinine Creat Clearance w eGFR POC Glucometer 90.13078 128 Random Glucose Hemoglobin A1c % Lactic Acid Calcium Phosphorus Magnesium Total Bilirubin AST ALT Alkaline Phosphatase Creatine Kinase Troponin I Total Protein Albumin Triglycerides Cholesterol Total LDL Cholesterol HDL Cholesterol Urine Color Urine Appearance Urine pH Ur Specific [place] Urine Protein Urine Glucose (UA) Urine Ketones Urine Blood Urine Nitrite Urine Bilirubin Urine Urobilinogen Blood Type O POSITIVE Antibody Screen Negative 03/03/17 03/03/17 03/03/17 05:05 05:05 05:05 WBC 6.8 RBC 4.27 Hgb 13.2 Hct 41.0 MCV 95.9 MCH 30.8 MCHC 32.1 RDW 15.4 Plt Count 150 MPV 8.7 Neutrophils % 63.2 Lymphocytes % 20.6 D Monocytes % 10.3 H Eosinophils % 4.9 H Basophils % 1.0 PT with INR INR PTT (Actin FS) D-Dimer Sodium 139 Potassium 4.0 Chloride 95 L Carbon Dioxide 40 H Anion Gap 4 L BUN 30 H Creatinine 1.4 H Creat Clearance w eGFR 48.16 POC Glucometer Random Glucose 89 Hemoglobin A1c % 5.8 D Lactic Acid Calcium 8.3 L Phosphorus 2.8 Magnesium 2.2 Total Bilirubin 0.5 AST 15 ALT 22 Alkaline Phosphatase 52 Creatine Kinase Troponin I Total Protein 6.5 Albumin 3.3 L Triglycerides 105 Cholesterol 153 Total LDL Cholesterol 82 HDL Cholesterol 54 Urine Color Urine Appearance Urine pH Ur Specific [place] Urine Protein Urine Glucose (UA) Urine Ketones Urine Blood Urine Nitrite Urine Bilirubin Urine Urobilinogen Blood Type Antibody Screen 03/03/17 03/03/17 05:19 06:15 WBC RBC Hgb Hct MCV MCH MCHC RDW Plt Count MPV Neutrophils % Lymphocytes % Monocytes % Eosinophils % Basophils % PT with INR INR PTT (Actin FS) D-Dimer Sodium Potassium Chloride Carbon Dioxide Anion Gap BUN Creatinine Creat Clearance w eGFR POC Glucometer 99 Random Glucose Hemoglobin A1c % Lactic Acid Calcium Phosphorus Magnesium Total Bilirubin AST ALT Alkaline Phosphatase Creatine Kinase Troponin I Total Protein Albumin Triglycerides Cholesterol Total LDL Cholesterol HDL Cholesterol Urine Color Yellow Urine Appearance Clear Urine pH 5.0 Ur Specific [place] 1.016 Urine Protein Negative Urine Glucose (UA) Negative Urine Ketones Negative Urine Blood Negative Urine Nitrite Negative Urine Bilirubin Negative Urine Urobilinogen Negative Blood Type Antibody Screen Active Medications Generic Name Dose Route Start Last Admin Trade Name Scottyq PRN Reason Stop Dose Admin Aspirin 81 mg 03/03/17 10:00 03/03/17 10:55 Asa - PO 81 mg DAILY JOE Administration Atorvastatin Calcium 10 mg 03/02/17 22:00 03/02/17 23:24 Lipitor - PO 10 mg HS JOE Administration Furosemide 40 mg 03/02/17 14:00 03/03/17 06:42 Lasix - PO 40 mg BIDLASIX JOE Administration CEFTRIAXONE 1 G/50 ML PREMIX 50 mls @ 100 mls/hr 03/03/17 10:00 03/03/17 10: 56 Ceftriaxone 1 Gm-D5w Bag IVPB 100 mls/hr DAILY JOE Administration Metronidazole 500 mg in 100 mls @ 100 mls/hr 03/02/17 18:00 03/03/17 10:56 Flagyl 500mg Premixed Ivpb - IVPB 100 mls/hr Q8H-IV JOE Administration Insulin Aspart 1 vial 03/02/17 16:30 03/03/17 11:38 Novolog Vial Sliding Scale - SQ Not Given ACHS [facility] Protocol Insulin Detemir 20 units 03/03/17 22:00 Levemir Vial SQ HS JOE Polyethylene Glycol 17 gm 03/02/17 22:00 03/03/17 11:09 Miralax (For Daily Use) - PO 17 gm BID JOE Administration Sitagliptin Phosphate 25 mg 03/03/17 07:00 03/03/17 06:42 Januvia - PO 25 mg DAILY@0700 JOE Administration CXR: no acute pathology CT chest: very small right pleural effusion Echo: non-diagnostic ASSESSMENT/PLAN: 86M w/ hx of COPD, JUAN (not using cpap), ASHD s/p CABG, 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 #AMS -likely 2/2 hypercarbia due to COPD exacerbation, can't rule out CHF component -duonebs q6h standing -O2, maintain O2 sat above 90% -lasix -strict I/Os, daily weights, restrict sodium and fluid intake -BiPAP at night -ABG -Urine culture -f/u cultures Rest of care per medical team. Plan discussed with attending, Dr. Garcia. Dispo: We will continue to follow the patient. Thank you for this consultative opportunity. -Daniel Mayberry MD PGY1 Pulmonology Team Visit type - Emergency Visit Emergency Visit: Yes ED Registration Date: 03/02/17 Care time: The patient presented to the Emergency Department on the above date and was hospitalized for further evaluation of their emergent condition. - New Patient This patient is new to me today: Yes Date on this admission: 03/03/17 - Critical Care Critical Care patient: No
[2017-03-03 14:18] LABS: URINE LEUK ESTERASE Negative (NEGATIVE)
[2017-03-03] MEDS: ATORVASTATIN CA 10 MG TABLET (FP) PO SCH (21:22)
[2017-03-03] MEDS: INSULIN DETEMIR 100 UNITS/ML MDV SQ SCH (21:22)
[2017-03-04] MEDS: METRONIDAZOLE 500 MG PREMIXED 500 MG/100 ML MG IVPB SCH ×3 (01:28→17:21)
[2017-03-04] MEDS: sitaGLIPtin PHOSPHATE 25 MG TABLET (FP) PO SCH (06:27)
[2017-03-04] MEDS: FUROSEMIDE 40 MG TABLET (FP) PO SCH ×2 (06:27→13:54)
[2017-03-04] MEDS: INSULIN SLIDING SCALE (NOVOLOG) 1 VIAL SQ SCH ×4 (06:29→21:33)
--- NOTE | 2017-03-04 08:35 | PN ---
Progress Note, Physician Chief Complaint: c/o SEVERE DYSPNEA, PEARSON. RUSL-uzioo-ujva quality, cannot be interpreted. Cardiology consult and pulmonary consult appreciated History of Present Illness: Persistent 6.7cm left basilar atelectasis/consolidation. CABG ASHD. DM type on Levemir/Januvia.. CRI. 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 JUAN-not using CPAP. - Current Medication List Current Medications: Active Medications Aspirin (Asa -) 81 mg PO DAILY [facility] Last Admin: 03/03/17 10:55 Dose: 81 mg Atorvastatin Calcium (Lipitor -) 10 mg PO HS [facility] Last Admin: 03/03/17 21:22 Dose: 10 mg Furosemide (Lasix -) 40 mg PO BIDLASIX [facility] Last Admin: 03/04/17 06:27 Dose: 40 mg CEFTRIAXONE 1 G/50 ML PREMIX (Ceftriaxone 1 Gm-D5w Bag) 50 mls @ 100 mls/hr IVPB DAILY [facility] Last Admin: 03/03/17 10:56 Dose: 100 mls/hr Metronidazole (Flagyl 500mg Premixed Ivpb -) 500 mg in 100 mls @ 100 mls/hr IVPB Q8H-IV [facility] Last Admin: 03/04/17 01:28 Dose: 100 mls/hr Insulin Aspart (Novolog Vial Sliding Scale -) 1 vial SQ [facility] PRN Reason: Protocol Last Admin: 03/04/17 06:29 Dose: Not Given Insulin Detemir (Levemir Vial) 20 units SQ [facility] Last Admin: 03/03/17 21:22 Dose: 20 units Polyethylene Glycol (Miralax (For Daily Use) -) 17 gm PO BID [facility] Last Admin: 03/03/17 21:23 Dose: 17 gm Sitagliptin Phosphate (Januvia -) 25 mg PO DAILY@0700 [facility] Last Admin: 03/04/17 06:27 Dose: 25 mg - Objective Vital Signs: Vital Signs Temperature 97.9 F 03/04/17 05:54 Pulse Rate 76 03/04/17 05:54 Respiratory Rate 18 03/04/17 05:54 Blood Pressure 140/90 03/04/17 05:54 O2 Sat by Pulse Oximetry (%) 95 03/03/17 21:05 Constitutional: Yes: Anxious, Moderate Distress Eyes: Yes: Conjunctiva Clear, EOM Intact HENT: Yes: Atraumatic, Normocephalic Neck: Yes: Trachea Midline, Decreased ROM. No: Lymphadenopathy, Tenderness Cardiovascular: Yes: Pulse Irregular (vpc, apc). No: Regular Rate and Rhythm Respiratory: Yes: Accessory Muscle Use, Diminished (b/l), On Nasal O2, Poor Air Entry, SOB, SOB on Exertion, Tachypnea Gastrointestinal: Yes: Normal Bowel Sounds, Soft, Abdomen, Obese. No: Ascites, Palpable Mass ...Rectal Exam: Yes: Deferred Genitourinary: No: Anuria, Bladder Distention, CVA Tenderness - Left, CVA Tenderness - Right Breast(s): Yes: WNL Musculoskeletal: No: Joint Stiffness, Joint Swelling Extremities: No: Amputation, Calf Tenderness, Cold, Cyanosis Edema: Yes Edema: LLE: 1+, RLE: 1+ Integumentary: Yes: WNL Neurological: Yes: Alert, Oriented, Cran Nerves II-XII Intact. No: Aphasia, Asterixis, Ataxia, Dysarthria, Facial Droop, Lethargy, Seizure, Tremors ...Motor Strength: WNL Psychiatric: Yes: WNL Labs: CBC, BMP 03/03/17 05:05 03/03/17 05:05 INR, PTT INR 0.93 (0.82-1.09) 03/02/17 10:52 Problem List - Problems (1) ASHD (arteriosclerotic heart disease) Assessment/Plan: Continue Furosemide, statins, Toprol Code(s): I25.10 - ATHSCL HEART DISEASE OF [place] CORONARY ARTERY W/O ANG PCTRS (2) Bronchiectasis with (acute) exacerbation Assessment/Plan: cONTINUE iv aBX. fOLLOW BLD CX. Code(s): J47.1 - BRONCHIECTASIS WITH (ACUTE) EXACERBATION (3) DM type 2 (diabetes mellitus, type 2) Assessment/Plan: lEVEMIR 20 UNITS. fOLLOW bgm Code(s): E11.9 - TYPE 2 DIABETES MELLITUS WITHOUT COMPLICATIONS Qualifiers: Chronic kidney disease stage: stage 3 (moderate) (4) Pulmonary hypertension Assessment/Plan: Dilated pulmonary artery on CT scan c/w pulmonary HTN Likely due to JUAN-pt was refusing CPAP at home Unable to quantify on ECHO due to very poor technical quality. Continue BIPAP, diuretics. Follow ABG Code(s): I27.20 - PULMONARY HYPERTENSION, UNSPECIFIED (5) Acute respiratory failure with hypercapnia Assessment/Plan: Noted elevated Co2 on VBG, elevated bicarb. Patient's O2 needs to be adjusted and BIPAP use to avoid worsening hypercapnia and excessive sedation and MS change as was observed at home [employer]. 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 Code(s): J96.01 - ACUTE RESPIRATORY FAILURE WITH HYPOXIA (7) CHF, acute on chronic Assessment/Plan: Noted acute on chronic-diastolic CHF with LE edema [address] chest, LUE on poor quality ECHO. Continue monitoring Cardiology f/u Code(s): I50.9 - HEART FAILURE, UNSPECIFIED Qualifiers: Qualified Code(s): I50.33 - Acute on chronic diastolic (congestive) heart failure
--- NOTE | 2017-03-04 08:48 | PN ---
Progress Note, Physician Chief Complaint: feeling slightly better C/O poor sleep History of Present Illness: TELE: NSR with short self limited 4 beat run NSVT - Current Medication List Current Medications: Active Medications Aspirin (Asa -) 81 mg PO DAILY [facility] Last Admin: 03/03/17 10:55 Dose: 81 mg Atorvastatin Calcium (Lipitor -) 10 mg PO HS [facility] Last Admin: 03/03/17 21:22 Dose: 10 mg Furosemide (Lasix -) 40 mg PO BIDLASIX [facility] Last Admin: 03/04/17 06:27 Dose: 40 mg CEFTRIAXONE 1 G/50 ML PREMIX (Ceftriaxone 1 Gm-D5w Bag) 50 mls @ 100 mls/hr IVPB DAILY [facility] Last Admin: 03/03/17 10:56 Dose: 100 mls/hr Metronidazole (Flagyl 500mg Premixed Ivpb -) 500 mg in 100 mls @ 100 mls/hr IVPB Q8H-IV [facility] Last Admin: 03/04/17 01:28 Dose: 100 mls/hr Insulin Aspart (Novolog Vial Sliding Scale -) 1 vial SQ [facility] PRN Reason: Protocol Last Admin: 03/04/17 06:29 Dose: Not Given Insulin Detemir (Levemir Vial) 20 units SQ [facility] Last Admin: 03/03/17 21:22 Dose: 20 units Polyethylene Glycol (Miralax (For Daily Use) -) 17 gm PO BID [facility] Last Admin: 03/03/17 21:23 Dose: 17 gm Sitagliptin Phosphate (Januvia -) 25 mg PO DAILY@0700 [facility] Last Admin: 03/04/17 06:27 Dose: 25 mg - Objective Vital Signs: Vital Signs Temperature 97.9 F 03/04/17 05:54 Pulse Rate 76 03/04/17 05:54 Respiratory Rate 18 03/04/17 05:54 Blood Pressure 140/90 03/04/17 05:54 O2 Sat by Pulse Oximetry (%) 95 03/03/17 21:05 Constitutional: Yes: Calm Eyes: Yes: Conjunctiva Clear Cardiovascular: Yes: Regular Rate and Rhythm Respiratory: Yes: Other (b/l rhonchi, not wheezing) Gastrointestinal: Yes: Soft, Abdomen, Obese Edema: Yes Edema: LLE: 1+, RLE: 1+ Neurological: Yes: Alert, Oriented Labs: CBC, BMP 03/03/17 05:05 03/03/17 05:05 INR, PTT INR 0.93 (0.82-1.09) 03/02/17 10:52 Laboratory Tests 03/02/17 03/02/17 03/03/17 10:52 10:52 05:05 WBC 6.8 Hgb 13.2 Plt Count 150 Creatinine Troponin I < 0.02 B-Natriuretic Peptide 1027.27 H 03/03/17 05:05 WBC Hgb Plt Count Creatinine 1.4 H Troponin I B-Natriuretic Peptide - ....Imaging Cat Scan: Report Reviewed Assessment/Plan IMP: 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 volume overloaded c/w baseline. 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 Previous Echos have shown EF to be reduced, but >35%; thus , not a candidate for ICD.
[2017-03-04 09:41] LABS: ARTERIAL BLD GAS O2 SATURATION 97.2 % (90-98.9); ARTERIAL BLOOD GAS PO2 89.9 mmHg (68-100)
[2017-03-04 09:42] LABS: ALLENS TEST POSITIVE; ART PUNCT SITE LEFT RADIAL; LPM/O2% 3; MECH. VENT. NO; PT. ON O2? YES; TYPE OF O2 NASAL CANNULA
[2017-03-04] MEDS: CEFTRIAXONE 1 G/50 ML PREMIX 50 ML IVPB SCH (09:43)
[2017-03-04] MEDS: ASPIRIN 81 MG CHEWABLE TABLETS PO SCH (09:43)
[2017-03-04] MEDS: POLYETHYLENE GLYCOL 3350 119 GM BTL PO SCH ×2 (09:44→21:32)
[2017-03-04 09:55] LABS: ARTERIAL BLOOD GAS HCO3 36.8 meq/L (22-26); ARTERIAL BLOOD GAS pH 7.45 (7.35-7.45)
--- NOTE | 2017-03-04 11:41 | PN ---
Teaching Attending Note Name of Resident: Daniel Mayberry ATTENDING PHYSICIAN STATEMENT I saw and evaluated the patient. I reviewed the resident's note and discussed the case with the resident. I agree with the resident's findings and plan as documented. SUBJECTIVE:IMPROVEMENT IN BREATHING/ALERT/NO CONFUSION OBJECTIVE:DIMINISHED BREATH SOUNDS WITH SCATTERED RHONCHI/CRACKLES PH7.45/54/89/97% 3L/M O2 ASSESSMENT AND PLAN: ACUTE ON CHRONIC RESP FAILURE COPD EXACERBATION/PULMONARY HTN JUAN NONCOMPLIANT ASHD/CABG PLEURAL DISEASE/ASBESTOS EXPOSURE DM/CKD/HTN/UC/OA O2/BIPAP NEEDED ANTIBIOTICS/ LASIX PER PRIMARY GLYCEMIC CONTROL CONTINUE TELEMETRY David SALAZAR MD
[2017-03-04] MEDS: INSULIN DETEMIR 100 UNITS/ML MDV SQ SCH (21:31)
[2017-03-04] MEDS: ATORVASTATIN CA 10 MG TABLET (FP) PO SCH (21:32)
[2017-03-05] MEDS: METRONIDAZOLE 500 MG PREMIXED 500 MG/100 ML MG IVPB SCH ×2 (02:32→09:32)
[2017-03-05] MEDS: FUROSEMIDE 40 MG TABLET (FP) PO SCH ×2 (06:20→14:43)
[2017-03-05] MEDS: INSULIN SLIDING SCALE (NOVOLOG) 1 VIAL SQ SCH ×4 (06:21→22:05)
[2017-03-05] MEDS: sitaGLIPtin PHOSPHATE 25 MG TABLET (FP) PO SCH (06:21)
[2017-03-05] MEDS ORDERED: PT OWN MED DRAWER 7, Y5N ONE ×2 (08:38→16:37)
[2017-03-05] MEDS: CEFTRIAXONE 1 G/50 ML PREMIX 50 ML IVPB SCH (09:32)
[2017-03-05] MEDS: ASPIRIN 81 MG CHEWABLE TABLETS PO SCH (09:32)
[2017-03-05] MEDS: POLYETHYLENE GLYCOL 3350 119 GM BTL PO SCH ×2 (09:32→22:08)
--- NOTE | 2017-03-05 09:38 | PN ---
Progress Note, Physician History of Present Illness: seen and examined today in nad. states he is feeling overall improved. no new complaints. - Current Medication List Current Medications: Active Medications Aspirin (Asa -) 81 mg PO DAILY [facility] Last Admin: 03/05/17 09:32 Dose: 81 mg Atorvastatin Calcium (Lipitor -) 10 mg PO HS [facility] Last Admin: 03/04/17 21:32 Dose: 10 mg Furosemide (Lasix -) 40 mg PO BIDLASIX [facility] Last Admin: 03/05/17 06:20 Dose: 40 mg CEFTRIAXONE 1 G/50 ML PREMIX (Ceftriaxone 1 Gm-D5w Bag) 50 mls @ 100 mls/hr IVPB DAILY [facility] Last Admin: 03/05/17 09:32 Dose: 100 mls/hr Metronidazole (Flagyl 500mg Premixed Ivpb -) 500 mg in 100 mls @ 100 mls/hr IVPB Q8H-IV [facility] Last Admin: 03/05/17 09:32 Dose: 100 mls/hr Insulin Aspart (Novolog Vial Sliding Scale -) 1 vial SQ [facility] PRN Reason: Protocol Last Admin: 03/05/17 06:21 Dose: Not Given Insulin Detemir (Levemir Vial) 20 units SQ [facility] Last Admin: 03/04/17 21:31 Dose: 20 units Polyethylene Glycol (Miralax (For Daily Use) -) 17 gm PO BID [facility] Last Admin: 03/05/17 09:32 Dose: 17 gm Sitagliptin Phosphate (Januvia -) 25 mg PO DAILY@0700 [facility] Last Admin: 03/05/17 06:21 Dose: 25 mg - Objective Vital Signs: Vital Signs Temperature 98.3 F 03/05/17 02:50 Pulse Rate 82 03/05/17 02:50 Respiratory Rate 20 03/05/17 02:50 Blood Pressure 126/65 03/05/17 02:50 O2 Sat by Pulse Oximetry (%) 96 03/04/17 22:50 Constitutional: Yes: No Distress, Obese Eyes: Yes: Conjunctiva Clear, EOM Intact, PERRL HENT: Yes: Atraumatic, Normocephalic Neck: Yes: Supple, Trachea Midline Cardiovascular: Yes: Regular Rate and Rhythm, S1, S2. No: Bradycardia, Tachycardia, Pulse Irregular, Bruit, JVD, Gallop, Murmur, Rub, S3, S4, Varicosities Respiratory: Yes: Regular, Diminished, On Nasal O2, Rhonchi. No: Rales, SOB, Wheezes Gastrointestinal: Yes: Normal Bowel Sounds, Soft, Tenderness. 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 Previous Echos have shown EF to be reduced, but >35%; thus, not a candidate for ICD. -cont ASA and Lipitor
--- NOTE | 2017-03-05 10:51 | PN ---
Progress Note (short form) - Note Progress Note: PULMONARY SUBJECTIVE IMPROVEMENT VSS/AFEBRILE NO OVERALL CHANGE IN EXAM LABS REVIEWED NONE NEW TODAY ACUTE ON CHRONIC RESP FAILURE RESOLVED COPD EXACERBATION/PULMONARY HTN JUAN NONCOMPLIANT WITH NIPPV ASHD/CABG PLEURAL DISEASE/ASBESTOS EXPOSURE DM/CKD/HTN/UC/OA O2/BIPAP APPEARS TO BE TOLERATING ANTIBIOTICS/ LASIX PER PRIMARY GLYCEMIC CONTROL CONTINUE TELEMETRY OOB TO CHAIR AMBULATION David SALAZAR MD
--- NOTE | 2017-03-05 10:58 | PN ---
Progress Note, Physician Chief Complaint: Dr Solis f/u appreciated. Pt remains on BIPAP, more awake, less confused now, but earlier in AM had worsening SOB and MS off BIPAP.. ABG noted -chronic respiratory acidosis. History of Present Illness: Persistent 6.7cm left basilar atelectasis/consolidation. CABG ASHD. DM type on Levemir/Januvia.. CRI. 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 JUAN-not using CPAP. - Current Medication List Current Medications: Active Medications Aspirin (Asa -) 81 mg PO DAILY [facility] Last Admin: 03/05/17 09:32 Dose: 81 mg Atorvastatin Calcium (Lipitor -) 10 mg PO HS [facility] Last Admin: 03/04/17 21:32 Dose: 10 mg Furosemide (Lasix -) 40 mg PO BIDLASIX [facility] Last Admin: 03/05/17 06:20 Dose: 40 mg CEFTRIAXONE 1 G/50 ML PREMIX (Ceftriaxone 1 Gm-D5w Bag) 50 mls @ 100 mls/hr IVPB DAILY [facility] Last Admin: 03/05/17 09:32 Dose: 100 mls/hr Metronidazole (Flagyl 500mg Premixed Ivpb -) 500 mg in 100 mls @ 100 mls/hr IVPB Q8H-IV [facility] Last Admin: 03/05/17 09:32 Dose: 100 mls/hr Insulin Aspart (Novolog Vial Sliding Scale -) 1 vial SQ [facility] PRN Reason: Protocol Last Admin: 03/05/17 06:21 Dose: Not Given Insulin Detemir (Levemir Vial) 20 units SQ [facility] Last Admin: 03/04/17 21:31 Dose: 20 units Polyethylene Glycol (Miralax (For Daily Use) -) 17 gm PO BID [facility] Last Admin: 03/05/17 09:32 Dose: 17 gm Sitagliptin Phosphate (Januvia -) 25 mg PO DAILY@0700 [facility] Last Admin: 03/05/17 06:21 Dose: 25 mg - Objective Vital Signs: Vital Signs Temperature 98.3 F 03/05/17 02:50 Pulse Rate 82 03/05/17 02:50 Respiratory Rate 20 03/05/17 02:50 Blood Pressure 126/65 03/05/17 02:50 O2 Sat by Pulse Oximetry (%) 96 03/04/17 22:50 Constitutional: Yes: Anxious, Moderate Distress, Obese Eyes: Yes: Conjunctiva Clear, EOM Intact, PERRL HENT: Yes: Atraumatic, Normocephalic. No: Drooling, Nasal Congestion Neck: Yes: Supple, Trachea Midline. No: Tenderness, Thyromegaly Cardiovascular: Yes: Regular Rate and Rhythm, Pulse Irregular (VPC, APC), Murmur , S1, S2. No: Bradycardia, Tachycardia, JVD Respiratory: Yes: Regular, Diminished (B/L), On BiPap, Poor Air Entry, Rhonchi ( Few), SOB, SOB on Exertion. No: Orthopnea, Stridor Gastrointestinal: Yes: Normal Bowel Sounds, Soft, Abdomen, Obese. No: Ascites, Palpable Mass, Tenderness ...Rectal Exam: Yes: Deferred Genitourinary: No: Anuria, Bladder Distention, CVA Tenderness - Left, CVA Tenderness - Right Breast(s): Yes: WNL Musculoskeletal: Yes: WNL Extremities: No: Calf Tenderness, Cold, Cyanosis Edema: Yes Edema: LLE: 1+, RLE: 1+ Integumentary: Yes: WNL Neurological: Yes: Alert, Oriented. No: Aphasia, Asterixis, Ataxia, Confusion, Dysarthria, Loss of Sensation, Pre-Existing Deficit, Seizure, Tremors, Unresponsive ...Motor Strength: WNL Psychiatric: Yes: WNL Labs: CBC, BMP 03/03/17 05:05 03/03/17 05:05 INR, PTT INR 0.93 (0.82-1.09) 03/02/17 10:52 Laboratory Results - last 24 hr 03/04/17 03/04/17 03/05/17 16:38 21:29 06:00 POC Glucometer 119 139 91 Problem List - Problems (1) ASHD (arteriosclerotic heart disease) Assessment/Plan: Continue Furosemide, statins, Toprol Code(s): I25.10 - ATHSCL HEART DISEASE OF [place] CORONARY ARTERY W/O ANG PCTRS (2) Bronchiectasis with (acute) exacerbation Assessment/Plan: cONTINUE iv aBX. fOLLOW BLD CX. Code(s): J47.1 - BRONCHIECTASIS WITH (ACUTE) EXACERBATION (3) DM type 2 (diabetes mellitus, type 2) Assessment/Plan: lEVEMIR 20 UNITS. fOLLOW bgm Code(s): E11.9 - TYPE 2 DIABETES MELLITUS WITHOUT COMPLICATIONS Qualifiers: Chronic kidney disease stage: stage 3 (moderate) (4) Pulmonary hypertension Assessment/Plan: Dilated pulmonary artery on CT scan c/w pulmonary HTN Likely due to JUAN-pt was refusing CPAP at home Unable to quantify on ECHO due to very poor technical quality. Continue BIPAP, diuretics. Follow ABG Code(s): I27.20 - PULMONARY HYPERTENSION, UNSPECIFIED (5) Acute respiratory failure with hypercapnia Assessment/Plan: Noted elevated Co2 on VBG, elevated bicarb ABG on 3L-7.45/55/90/97. Patient's O2 needs to be adjusted and BIPAP use to avoid worsening hypercapnia and excessive sedation and MS change as was observed at home [employer]. 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 Code(s): J96.01 - ACUTE RESPIRATORY FAILURE WITH HYPOXIA (7) CHF, acute on chronic Assessment/Plan: Noted acute on chronic-diastolic CHF with LE edema [address] chest, LUE on poor quality ECHO. Continue monitoring Cardiology f/u Code(s): I50.9 - HEART FAILURE, UNSPECIFIED Qualifiers: Congestive heart failure type: diastolic Qualified Code(s): I50.33 - Acute on chronic diastolic (congestive) heart failure (8) COPD (chronic obstructive pulmonary disease) with acute bronchitis Code(s): J44.0 - CHRONIC OBSTRUCTIVE PULMON DISEASE W ACUTE LOWER RESP INFCT; J20.9 - ACUTE BRONCHITIS, UNSPECIFIED (9) COPD with acute exacerbation Assessment/Plan: B/L decreased BS, few rhochi, worsening hypoxemia and hypercarbia due to acute on chronic respiratory failure. Continue Nebs-and BIPAP. pulmonology f/u Code(s): J44.1 - CHRONIC OBSTRUCTIVE PULMONARY DISEASE W (ACUTE) EXACERBATION
[2017-03-05] MEDS ORDERED: BISACODYL 5 MG TABLET.DR (FP) PO ONE (11:05)
[2017-03-05] MEDS: ATORVASTATIN CA 10 MG TABLET (FP) PO SCH (22:09)
[2017-03-05] MEDS: INSULIN DETEMIR 100 UNITS/ML MDV SQ SCH (22:09)
[2017-03-06] MEDS: FUROSEMIDE 40 MG TABLET (FP) PO SCH ×2 (06:33→13:16)
[2017-03-06] MEDS: sitaGLIPtin PHOSPHATE 25 MG TABLET (FP) PO SCH (06:33)
[2017-03-06] MEDS: INSULIN SLIDING SCALE (NOVOLOG) 1 VIAL SQ SCH ×4 (06:34→21:54)
[2017-03-06 09:36] LABS: ALBUMIN 3.6 g/dl (3.4-5.0); ALK PHOS 55 U/L (45-117); ANION GAP 8 (8-16); BILIRUBIN,TOTAL 0.6 mg/dL (0.2-1.0); CALCIUM 8.3 mg/dL (8.5-10.1); CO2 39 mmol/L (21-32); CREATININE 1.5 mg/dL (0.7-1.3); GLUCOSE,RANDOM 93 mg/dL (74-106); SGOT/AST 24 U/L (15-37); SGPT/ALT 28 U/L (12-78); TOT PROT 7.2 g/dl (6.4-8.2)
--- NOTE | 2017-03-06 09:56 | PN ---
Progress Note, Physician History of Present Illness: seen and examined today in nad. states he is more sob currently, was on bipap overnight, currently off for breakfast, on nc, checked Sao2 96% on nc. - Current Medication List Current Medications: Active Medications Aspirin (Asa -) 81 mg PO DAILY [facility] Last Admin: 03/05/17 09:32 Dose: 81 mg Atorvastatin Calcium (Lipitor -) 10 mg PO HS [facility] Last Admin: 03/05/17 22:09 Dose: 10 mg Furosemide (Lasix -) 40 mg PO BIDLASIX [facility] Last Admin: 03/06/17 06:33 Dose: 40 mg CEFTRIAXONE 1 G/50 ML PREMIX (Ceftriaxone 1 Gm-D5w Bag) 50 mls @ 100 mls/hr IVPB DAILY [facility] Last Admin: 03/05/17 09:32 Dose: 100 mls/hr Insulin Aspart (Novolog Vial Sliding Scale -) 1 vial SQ [facility] PRN Reason: Protocol Last Admin: 03/06/17 06:34 Dose: 4 units Insulin Detemir (Levemir Vial) 20 units SQ [facility] Last Admin: 03/05/17 22:09 Dose: 20 units Polyethylene Glycol (Miralax (For Daily Use) -) 17 gm PO BID [facility] Last Admin: 03/05/17 22:08 Dose: 17 gm Sitagliptin Phosphate (Januvia -) 25 mg PO DAILY@0700 [facility] Last Admin: 03/06/17 06:33 Dose: 25 mg - Objective Vital Signs: Vital Signs Temperature 97.6 F 03/06/17 05:55 Pulse Rate 71 03/06/17 05:55 Respiratory Rate 20 03/06/17 05:55 Blood Pressure 144/90 03/06/17 05:55 O2 Sat by Pulse Oximetry (%) 95 03/06/17 06:40 Constitutional: Yes: No Distress, Calm, Obese Eyes: Yes: Conjunctiva Clear, EOM Intact, PERRL HENT: Yes: Atraumatic, Normocephalic Neck: Yes: Supple, Trachea Midline Cardiovascular: Yes: Regular Rate and Rhythm, S1, S2. No: Bradycardia, Tachycardia, Pulse Irregular, Bruit, JVD, Gallop, Murmur, Rub, S3, S4, Varicosities Respiratory: Yes: Regular, Diminished, On Nasal O2, Rhonchi, SOB. No: Rales, Wheezes Gastrointestinal: Yes: Normal Bowel Sounds, Soft. 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 Previous Echos have shown EF to be reduced, but >35%; thus, not a candidate for ICD. -cont ASA and Lipitor
[2017-03-06] MEDS: POLYETHYLENE GLYCOL 3350 119 GM BTL PO SCH ×2 (10:00→21:54)
[2017-03-06] MEDS: ASPIRIN 81 MG CHEWABLE TABLETS PO SCH (10:00)
[2017-03-06] MEDS: CEFTRIAXONE 1 G/50 ML PREMIX 50 ML IVPB SCH (10:01)
--- NOTE | 2017-03-06 12:07 | PN ---
Progress Note, Physician Chief Complaint: C/o SOB, dyspnea. History of Present Illness: Persistent 6.7cm left basilar atelectasis/consolidation. CABG ASHD. DM type on Levemir/Januvia.. CRI. 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 JUAN-not using CPAP. - Current Medication List Current Medications: Active Medications Aspirin (Asa -) 81 mg PO DAILY [facility] Last Admin: 03/06/17 10:00 Dose: Not Given Atorvastatin Calcium (Lipitor -) 10 mg PO HS [facility] Last Admin: 03/05/17 22:09 Dose: 10 mg Furosemide (Lasix -) 40 mg PO BIDLASIX [facility] Last Admin: 03/06/17 06:33 Dose: 40 mg CEFTRIAXONE 1 G/50 ML PREMIX (Ceftriaxone 1 Gm-D5w Bag) 50 mls @ 100 mls/hr IVPB DAILY [facility] Last Admin: 03/06/17 10:01 Dose: 100 mls/hr Insulin Aspart (Novolog Vial Sliding Scale -) 1 vial SQ ACHS [facility] PRN Reason: Protocol Last Admin: 03/06/17 06:34 Dose: 4 units Insulin Detemir (Levemir Vial) 20 units SQ [facility] Last Admin: 03/05/17 22:09 Dose: 20 units Polyethylene Glycol (Miralax (For Daily Use) -) 17 gm PO BID [facility] Last Admin: 03/06/17 10:00 Dose: Not Given Sitagliptin Phosphate (Januvia -) 25 mg PO DAILY@0700 [facility] Last Admin: 03/06/17 06:33 Dose: 25 mg - Objective Vital Signs: Vital Signs Temperature 97.9 F 03/06/17 10:00 Pulse Rate 92 H 03/06/17 10:10 Respiratory Rate 20 03/06/17 10:00 Blood Pressure 126/86 03/06/17 10:00 O2 Sat by Pulse Oximetry (%) 94 L 03/06/17 10:10 Constitutional: Yes: Anxious, Moderate Distress Eyes: Yes: Conjunctiva Clear, EOM Intact HENT: Yes: Atraumatic, Normocephalic Neck: Yes: Supple, Trachea Midline. No: Lymphadenopathy, Tenderness, Thyromegaly Cardiovascular: Yes: Regular Rate and Rhythm, S1, S2, S3, S4. No: Bradycardia Respiratory: Yes: Regular, Diminished, Hyperresonant, Poor Air Entry, Rhonchi, SOB, SOB on Exertion Gastrointestinal: Yes: Normal Bowel Sounds, Soft, Abdomen, Obese. No: Pulsatile Mass, Tenderness ...Rectal Exam: No: Deferred, Erythema Genitourinary: No: Anuria, Bladder Distention Breast(s): Yes: WNL Extremities: No: Calf Tenderness, Cold, Cool, Cyanosis Edema: Yes Edema: LLE: Trace, RLE: Trace Integumentary: Yes: WNL Neurological: Yes: WNL ...Motor Strength: WNL Psychiatric: Yes: WNL Labs: CBC, BMP 03/03/17 05:05 03/06/17 07:00 INR, PTT INR 0.93 (0.82-1.09) 03/02/17 10:52 Problem List - Problems (1) ASHD (arteriosclerotic heart disease) Assessment/Plan: Continue Furosemide, statins, Toprol Code(s): I25.10 - ATHSCL HEART DISEASE OF [place] CORONARY ARTERY W/O ANG PCTRS (2) Bronchiectasis with (acute) exacerbation Assessment/Plan: cONTINUE iv aBX. fOLLOW BLD CX. Code(s): J47.1 - BRONCHIECTASIS WITH (ACUTE) EXACERBATION (3) DM type 2 (diabetes mellitus, type 2) Assessment/Plan: lEVEMIR 20 UNITS. fOLLOW bgm Code(s): E11.9 - TYPE 2 DIABETES MELLITUS WITHOUT COMPLICATIONS Qualifiers: Chronic kidney disease stage: stage 3 (moderate) (4) Pulmonary hypertension Assessment/Plan: Dilated pulmonary artery on CT scan c/w pulmonary HTN Likely due to JUAN-pt was refusing CPAP at home Unable to quantify on ECHO due to very poor technical quality. Continue BIPAP, diuretics. Follow ABG Code(s): I27.20 - PULMONARY HYPERTENSION, UNSPECIFIED (5) Acute respiratory failure with hypercapnia Assessment/Plan: Noted elevated Co2 on VBG, elevated bicarb ABG on 3L-7.45/55/90/97. 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 Code(s): J96.01 - ACUTE RESPIRATORY FAILURE WITH HYPOXIA (7) CHF, acute on chronic Assessment/Plan: Noted acute on chronic-combined CHF with LE edema [address] chest, LUE on poor quality ECHO. Previously GS=640 Continue monitoring Cardiology f/u Code(s): I50.9 - HEART FAILURE, UNSPECIFIED Qualifiers: Congestive heart failure type: combined Qualified Code(s): I50.43 - Acute on chronic combined systolic (congestive) and diastolic (congestive) heart failure (8) COPD (chronic obstructive pulmonary disease) with acute bronchitis Code(s): J44.0 - CHRONIC OBSTRUCTIVE PULMON DISEASE W ACUTE LOWER RESP INFCT; J20.9 - ACUTE BRONCHITIS, UNSPECIFIED (9) COPD with acute exacerbation Assessment/Plan: B/L decreased BS, few rhochi, worsening hypoxemia and hypercarbia due to acute on chronic respiratory failure. Continue Nebs-and BIPAP. pulmonology f/u Code(s): J44.1 - CHRONIC OBSTRUCTIVE PULMONARY DISEASE W (ACUTE) EXACERBATION
--- NOTE | 2017-03-06 13:53 | PN ---
Progress Note (short form) - Note Progress Note: PULMONARY COMPLAINING OF SOB VSS/AFEBRILE NO OVERALL CHANGE IN EXAM LABS REVIEWED PH 7.45/54/89/97% 3L/M NASALO2 ACUTE ON CHRONIC RESP FAILURE COPD EXACERBATION/PULMONARY HTN JUAN NONCOMPLIANT WITH NIPPV ASHD/CABG PLEURAL DISEASE/ASBESTOS EXPOSURE DM/CKD/HTN/UC/OA O2/BIPAP APPEARS TO BE TOLERATING ADDED DUONEB TID ANTIBIOTICS/ LASIX PER PRIMARY GLYCEMIC CONTROL CONTINUE TELEMETRY OOB TO CHAIR AMBULATION David SALAZAR MD
[2017-03-06] MEDS: ALBUTEROL SO4 2.5/IPRATROPIUM 0.5 INH SOL 3 ML VIAL.NEB. NEB SCH ×2 (14:53→21:45)
[2017-03-06] MEDS: INSULIN DETEMIR 100 UNITS/ML MDV SQ SCH (21:53)
[2017-03-06] MEDS: ATORVASTATIN CA 10 MG TABLET (FP) PO SCH (21:54)
[2017-03-07] MEDS: INSULIN SLIDING SCALE (NOVOLOG) 1 VIAL SQ SCH ×2 (06:23→11:35)
[2017-03-07] MEDS: sitaGLIPtin PHOSPHATE 25 MG TABLET (FP) PO SCH ×2 (06:50→08:33)
[2017-03-07] MEDS: FUROSEMIDE 40 MG TABLET (FP) PO SCH (06:50)
[2017-03-07] MEDS: ALBUTEROL SO4 2.5/IPRATROPIUM 0.5 INH SOL 3 ML VIAL.NEB. NEB SCH (06:55)
--- NOTE | 2017-03-07 08:02 | PN ---
Progress Note, Physician Chief Complaint: Small amount of blood in sputum X1 but not since then. Cough improved. O2SAT in AM on 3 L FIO2 93-94% Pt was explained that he has to use BIPAP 02/23 at night. D/C plans were discussed with the son Sunday yesterday. History of Present Illness: Persistent 6.7cm left basilar atelectasis/consolidation. CABG ASHD. DM type on Levemir/Januvia.. CRI. 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 JUAN-not using CPAP. - Current Medication List Current Medications: Active Medications Albuterol/Ipratropium (Duoneb -) 1 amp NEB TIDR [facility] Last Admin: 03/07/17 06:55 Dose: 1 amp Aspirin (Asa -) 81 mg PO DAILY [facility] Last Admin: 03/06/17 10:00 Dose: Not Given Atorvastatin Calcium (Lipitor -) 10 mg PO HS [facility] Last Admin: 03/06/17 21:54 Dose: 10 mg Furosemide (Lasix -) 40 mg PO BIDLASIX [facility] Last Admin: 03/07/17 06:50 Dose: 40 mg CEFTRIAXONE 1 G/50 ML PREMIX (Ceftriaxone 1 Gm-D5w Bag) 50 mls @ 100 mls/hr IVPB DAILY [facility] Last Admin: 03/06/17 10:01 Dose: 100 mls/hr Insulin Aspart (Novolog Vial Sliding Scale -) 1 vial SQ ACHS [facility] PRN Reason: Protocol Last Admin: 03/07/17 06:23 Dose: Not Given Insulin Detemir (Levemir Vial) 20 units SQ HS [facility] Last Admin: 03/06/17 21:53 Dose: 20 units Polyethylene Glycol (Miralax (For Daily Use) -) 17 gm PO BID [facility] Last Admin: 03/06/17 21:54 Dose: 17 gm Sitagliptin Phosphate (Januvia -) 25 mg PO DAILY@0700 [facility] Last Admin: 03/07/17 06:50 Dose: Not Given - Objective Vital Signs: Vital Signs Temperature 97.2 F L 03/07/17 06:00 Pulse Rate 80 03/07/17 06:00 Respiratory Rate 20 03/07/17 06:00 Blood Pressure 147/62 03/07/17 06:00 O2 Sat by Pulse Oximetry (%) 96 03/07/17 02:25 Constitutional: Yes: No Distress, Calm Eyes: Yes: Conjunctiva Clear, EOM Intact HENT: Yes: Atraumatic, Normocephalic Neck: Yes: Supple, Trachea Midline Cardiovascular: Yes: Regular Rate and Rhythm, Murmur, S1, S2. No: Bradycardia, Tachycardia, JVD Respiratory: Yes: Regular, CTA Bilaterally, Cough, Diminished (B/L), On Nasal O2 , SOB on Exertion. No: Rales, Rhonchi, Tachypnea, Wheezes Gastrointestinal: Yes: Normal Bowel Sounds, Soft, Abdomen, Obese. No: Ascites, Palpable Mass, Tenderness Genitourinary: No: Anuria, Bladder Distention Breast(s): Yes: WNL Musculoskeletal: Yes: WNL Extremities: Yes: WNL Edema: No Integumentary: Yes: WNL Neurological: Yes: WNL ...Motor Strength: WNL Psychiatric: Yes: WNL Labs: CBC, BMP 03/03/17 05:05 03/06/17 07:00 INR, PTT INR 0.93 (0.82-1.09) 03/02/17 10:52 Problem List - Problems (1) ASHD (arteriosclerotic heart disease) Assessment/Plan: Continue Furosemide, statins, Toprol Code(s): I25.10 - ATHSCL HEART DISEASE OF [place] CORONARY ARTERY W/O ANG PCTRS (2) Bronchiectasis with (acute) exacerbation Assessment/Plan: D/C iv aBX. Bld cx-negative. obsrve for chills, fever. Code(s): J47.1 - BRONCHIECTASIS WITH (ACUTE) EXACERBATION (3) DM type 2 (diabetes mellitus, type 2) Assessment/Plan: lEVEMIR 20 UNITS. fOLLOW bgm Code(s): E11.9 - TYPE 2 DIABETES MELLITUS WITHOUT COMPLICATIONS Qualifiers: Chronic kidney disease stage: stage 3 (moderate) (4) Pulmonary hypertension Assessment/Plan: Dilated pulmonary artery on CT scan c/w pulmonary HTN Likely due to JUAN-pt was refusing CPAP at home Unable to quantify on ECHO due to very poor technical quality. Continue BIPAP, diuretics. 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 Code(s): J96.01 - ACUTE RESPIRATORY FAILURE WITH HYPOXIA (7) CHF, acute on chronic Assessment/Plan: Noted acute on chronic-combined CHF with LE edema [address] chest, LUE on poor quality ECHO. Previously YQ=270 Continue monitoring Cardiology f/u Code(s): I50.9 - HEART FAILURE, UNSPECIFIED Qualifiers: Congestive heart failure type: combined Qualified Code(s): I50.43 - Acute on chronic combined systolic (congestive) and diastolic (congestive) heart failure (8) COPD (chronic obstructive pulmonary disease) with acute bronchitis Code(s): J44.0 - CHRONIC OBSTRUCTIVE PULMON DISEASE W ACUTE LOWER RESP INFCT; J20.9 - ACUTE BRONCHITIS, UNSPECIFIED (9) COPD with acute exacerbation Assessment/Plan: B/L decreased BS, few rhochi, worsening hypoxemia and hypercarbia due to acute on chronic respiratory failure. Continue Nebs-and BIPAP. pulmonology f/u Code(s): J44.1 - CHRONIC OBSTRUCTIVE PULMONARY DISEASE W (ACUTE) EXACERBATION
--- NOTE | 2017-03-07 08:06 | DS ---
Physical Examination Vital Signs: Vital Signs Temperature 97.2 F L 03/07/17 06:00 Pulse Rate 80 03/07/17 06:00 Respiratory Rate 20 03/07/17 06:00 Blood Pressure 147/62 03/07/17 06:00 O2 Sat by Pulse Oximetry (%) 96 03/07/17 02:25 Constitutional: Yes: No Distress, Calm Eyes: Yes: Conjunctiva Clear, EOM Intact HENT: Yes: Atraumatic, Normocephalic. No: Drooling Neck: Yes: Supple, Trachea Midline. No: Lymphadenopathy, Rigid Cardiovascular: Yes: Regular Rate and Rhythm, S1, S2. No: Bradycardia, Tachycardia Respiratory: Yes: Regular, CTA Bilaterally, On BiPap (02/23 at night), On Nasal O2 Gastrointestinal: Yes: Normal Bowel Sounds, Soft, Abdomen, Obese ...Rectal Exam: Yes: Deferred Renal/: No: Anuria, Bladder Distention Breast(s): Yes: WNL Musculoskeletal: Yes: WNL Extremities: No: Amputation, Calf Tenderness, Cold, Cyanosis Integumentary: Yes: WNL Neurological: Yes: WNL ...Motor Strength: WNL Psychiatric: Yes: WNL Labs: CBC, BMP 03/03/17 05:05 03/06/17 07:00 Discharge Summary Reason For Visit: SOB, Respiratory failure Current Active Problems Acute respiratory failure with hypercapnia (Acute) Acute respiratory failure with hypoxia (Acute) Bronchiectasis with (acute) exacerbation (Acute) COPD (chronic obstructive pulmonary disease) with acute bronchitis (Acute) COPD with acute exacerbation (Acute) DM type 2 (diabetes mellitus, type 2) (Acute) Pulmonary hypertension (Acute) Condition: Improved - Instructions Referrals: Sunil Moseley MD [Primary Care Provider] - Disposition: [facility] - Home Medications Comprehensive Discharge Medication List: Ambulatory Orders Aspirin [ASA -] 81 mg PO DAILY 06/24/14 Pravastatin Sodium [Pravachol -] 40 mg PO HS 10/12/14 Insulin (Levemir) [Levemir Flexpen -] 30 units SQ HS #1 pen 10/14/14 Sitagliptin Phosphate [Januvia -] 25 mg PO DAILY@0700 #90 tab 10/14/14 Furosemide [Lasix -] 40 mg PO BID #30 tablet 03/01/16 Polyethylene Glycol 3350 [Miralax 119 gm Btl -] 17 gm PO BID bottle 06/24/16
[2017-03-07] MEDS: ASPIRIN 81 MG CHEWABLE TABLETS PO SCH ×2 (08:33→09:38)
[2017-03-07] MEDS: POLYETHYLENE GLYCOL 3350 119 GM BTL PO SCH ×2 (08:34→09:38)
[2017-03-07 09:58] VITALS: BP 122/60; TEMP 98
[2017-03-07 10:46] VITALS: PULSE 89
--- NOTE | 2017-03-07 13:08 | PN ---
Progress Note, Physician History of Present Illness: seen and examined today in [facility]. no overnight events. no new complaints. - Current Medication List Current Medications: Active Medications Albuterol/Ipratropium (Duoneb -) 1 amp NEB TIDR [facility] Last Admin: 03/07/17 06:55 Dose: 1 amp Aspirin (Asa -) 81 mg PO DAILY [facility] Last Admin: 03/07/17 09:38 Dose: Not Given Atorvastatin Calcium (Lipitor -) 10 mg PO HS [facility] Last Admin: 03/06/17 21:54 Dose: 10 mg Furosemide (Lasix -) 40 mg PO BIDLASIX [facility] Last Admin: 03/07/17 06:50 Dose: 40 mg Insulin Aspart (Novolog Vial Sliding Scale -) 1 vial SQ [facility] PRN Reason: Protocol Last Admin: 03/07/17 11:35 Dose: Not Given Insulin Detemir (Levemir Vial) 20 units SQ [facility] Last Admin: 03/06/17 21:53 Dose: 20 units Polyethylene Glycol (Miralax (For Daily Use) -) 17 gm PO BID [facility] Last Admin: 03/07/17 09:38 Dose: Not Given Sitagliptin Phosphate (Januvia -) 25 mg PO DAILY@0700 [facility] Last Admin: 03/07/17 08:33 Dose: 25 mg - Objective Vital Signs: Vital Signs Temperature 98.0 F 03/07/17 09:00 Pulse Rate 89 03/07/17 10:45 Respiratory Rate 16 03/07/17 09:00 Blood Pressure 122/60 03/07/17 09:00 O2 Sat by Pulse Oximetry (%) 91 L 03/07/17 10:45 Constitutional: Yes: No Distress, Calm, Obese Eyes: Yes: Conjunctiva Clear, EOM Intact, PERRL HENT: Yes: Atraumatic, Normocephalic Neck: Yes: Supple, Trachea Midline Cardiovascular: Yes: Regular Rate and Rhythm, S1, S2. No: Bradycardia, Tachycardia, Pulse Irregular, Bruit, JVD, Gallop, Murmur, Rub, S3, S4, Varicosities Respiratory: Yes: Regular, Diminished. No: Rales, Rhonchi, Wheezes Gastrointestinal: Yes: Normal Bowel Sounds, Soft. 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 Previous Echos have shown EF to be reduced, but >35%; thus, not a candidate for ICD. -cont ASA and Lipitor -ok from a cardiac standpoint for discharge with outpatient f/up
== END 2017-03-07 14:11 | DRG 189 ==
LOC: JER 10:11 → JERBED 12:51 → J4W 19:45
PROVIDERS: ADMIT Internal Medicine; ATTEND Internal Medicine
PROC: 5A09557 Assistance with Respiratory Ventilation, Greater than 96 Consecutive Hours, Continuous Positive Airway Pressure (ICD-10-PCS; principal; 2017-03-02)
DX: J96.01 Acute respiratory failure with hypoxia (principal); I13.0 Hypertensive heart and chronic kidney disease with heart failure and stage 1 through stage 4 chronic kidney disease, or unspecified chronic kidney disease; I50.43 Acute on chronic combined systolic (congestive) and diastolic (congestive) heart failure; K51.80 Other ulcerative colitis without complications; J98.11 Atelectasis; I42.8 Other cardiomyopathies; J94.8 Other specified pleural conditions; J44.1 Chronic obstructive pulmonary disease with (acute) exacerbation; J96.02 Acute respiratory failure with hypercapnia; E11.22 Type 2 diabetes mellitus with diabetic chronic kidney disease; N18.3 Chronic kidney disease, stage 3 (moderate); I25.10 Atherosclerotic heart disease of native coronary artery without angina pectoris; G31.84 Mild cognitive impairment of uncertain or unknown etiology; G47.39 Other sleep apnea; Z68.38 Body mass index [BMI] 38.0-38.9, adult; E66.8 Other obesity; I27.20 Pulmonary hypertension, unspecified; M25.519 Pain in unspecified shoulder; J98.4 Other disorders of lung; M19.90 Unspecified osteoarthritis, unspecified site; M54.2 Cervicalgia; Z87.891 Personal history of nicotine dependence; Z99.81 Dependence on supplemental oxygen; Z95.1 Presence of aortocoronary bypass graft; Z86.018 Personal history of other benign neoplasm; Z77.090 Contact with and (suspected) exposure to asbestos
CPT/HCPCS: 36415; 36600; 71010-TC; 71250-TC; 80053; 80061; 81003; 82550; 82803; 83036; 83605; 83721; 83735; 83880; 84100; 84484; 85025; 85379; 85610; 85730; 86850; 86900; 86901; 87040; 87086; 87804; 93005; 93010; 93306-TC; 94640; 94660; 97116-GP; 97161-GP; 99283-25

== ENCOUNTER 2017-03-21 19:56 | Inpatient (IN) | payer OTHER ==
--- NOTE | 2017-03-21 20:27 | PDOC ---
History of Present Illness - General History Source: Patient Exam Limitations: No Limitations - History of Present Illness Initial Comments: 03/21/17 21:24 The patient is a 86 year old male resident from [facility], with a significant past medical history of CABG, Diabetes, CKD, and COPD (on 3L home O2 ) who presents to the emergency department with difficulty breathing and worsening leg edema. Patient's son and at bedside reports recent admission to [facility] for COPD exacerbation and respiratory failure. Patient was discharged to [place] for rehab. Today at rehab, son visited him in [place] and noticed patient was dyspneic, warm and increasingly weak. Patient endorses slight cough and worsening leg edema since admission to rehab facility. Upon evaluation, patients O2 saturation was 77% on room O2 and was immediately placed on non rebreather. O2 Saturation increased to 100% on non rebreather. Patient denies chest pain, headache or dizziness. Patient denies fever, chills, abdominal pain, nausea, vomit, diarrhea or constipation. Patient denies dysuria , frequency, urgency or hematuria. Patient denies sick contacts or recent travel. Allergies: NKA Past surgical history: Quadruple bypass (30 years ago). Social history: Former smoker (30 years ago). No reported alcohol or drug use. PCP: Dr. Moseley Back Winder: Dr. Garcia <Marisela Pavon - Last Filed: 03/21/17 23:34> <Selena Lima - Last Filed: 03/22/17 00:13> - General Stated Complaint: SOB Time Seen by Provider: 03/21/17 20:21 Past History <Marisela Pavon - Last Filed: 03/21/17 23:34> - Past Medical History Anemia: No Asthma: No Cancer: No Cardiac Disorders: Yes CVA: No COPD: Yes CHF: No Dementia: Yes (PER FAMILY/MILD) Diabetes: Yes GI Disorders: No Disorders: No HTN: No Hypercholesterolemia: No Liver Disease: No Seizures: No Thyroid Disease: No Lung CA: No (MESOTHELIOMA) - Surgical History Abdominal Surgery: No Appendectomy: No Cardiac Surgery: Yes (CABG) Cholecystectomy: No Lung Surgery: No Neurologic Surgery: No Orthopedic Surgery: No - Immunization History Immunization Up to Date: Yes - Suicide/Smoking/Psychosocial Hx Smoking History: Former smoker Have you smoked in the past 12 months: No If you are a former smoker, when did you quit?: 30 YRS AGO Information on smoking cessation initiated: No Hx Alcohol Use: No Drug/Substance Use Hx: No Substance Use Type: None Hx Substance Use Treatment: No <Selena Lima - Last Filed: 03/22/17 00:13> - Past Medical History Allergies/Adverse Reactions: Allergies Allergy/AdvReac Type Severity Reaction Status Date / Time No Known Allergies Allergy Verified 03/02/17 10:17 Home Medications: Ambulatory Orders Aspirin [ASA -] 81 mg PO DAILY 06/24/14 Pravastatin Sodium [Pravachol -] 40 mg PO HS 10/12/14 Insulin (Levemir) [Levemir Flexpen -] 30 units SQ HS #1 pen 10/14/14 Sitagliptin Phosphate [Januvia -] 25 mg PO DAILY@0700 #90 tab 10/14/14 Furosemide [Lasix -] 40 mg PO BID #30 tablet 03/01/16 Polyethylene Glycol 3350 [Miralax 119 gm Btl -] 17 gm PO BID bottle 06/24/16 Albuterol 2.5/Ipratropium 0.5 [Duoneb -] 1 amp NEB TIDR amp 03/07/17 Acetaminophen 325 mg PO PRN 03/21/17 Docusate Sodium [Colace] 100 mg PO DAILY 03/21/17 Guaifenesin 100 mg PO QID 03/21/17 Ipratropium 0.02% Nebulizer [Atrovent *Nebulizer*] 0.5 mg IH PRN 03/21/17 Review of Systems - Review of Systems Able to Perform ROS?: Yes Comments:: 03/21/17 21:24 GENERAL/CONSTITUTIONAL: No fever or chills. No weakness. HEAD, EYES, EARS, NOSE AND THROAT: No change in vision. No ear pain or discharge. No sore throat. CARDIOVASCULAR: No chest pain or shortness of breath. RESPIRATORY: + cough. +Dyspnea. No wheezing, or hemoptysis. GASTROINTESTINAL: No nausea, vomiting, diarrhea or constipation. GENITOURINARY: No dysuria, frequency, or change in urination. MUSCULOSKELETAL: No joint or muscle swelling or pain. No neck or back pain. SKIN: No rash NEUROLOGIC: No headache, vertigo, loss of consciousness, or change in strength/ sensation. ENDOCRINE: No increased thirst. No abnormal weight change. HEMATOLOGIC/LYMPHATIC: No anemia, easy bleeding, or history of blood clots. ALLERGIC/IMMUNOLOGIC: No hives or skin allergy. <Marisela Pavon - Last Filed: 03/21/17 23:34> *Physical Exam - Vital Signs Last Vital Signs Temp Pulse Resp BP Pulse Ox 101.4 F H 125 H 25 H 123/65 100 03/21/17 21:12 03/21/17 20:15 03/21/17 20:15 03/21/17 20:15 03/21/17 20:22 - Physical Exam Comments: 03/21/17 21:25 GENERAL: Awake, alert, and fully oriented, in no acute distress. +Flushed. + Febrile. HEAD: No signs of trauma EYES: PERRLA, EOMI, sclera anicteric, conjunctiva clear ENT: Auricles normal inspection, hearing grossly normal, nares patent, oropharynx clear without exudates. Moist mucosa NECK: Normal ROM, supple, no lymphadenopathy, JVD, or masses LUNGS: +Decreased breath sounds at the base of the L. Greater than the base of the R. C lear to auscultation bilaterally. No wheezes, and no crackles HEART: Regular rate and rhythm, normal S1 and S2, no murmurs, rubs or gallops ABDOMEN: Soft, nontender, normoactive bowel sounds. No guarding, no rebound. No masses EXTREMITIES: Normal range of motion, no edema. No clubbing or cyanosis. No cords, erythema, or tenderness. +Bilteral pitting edema. NEUROLOGICAL: Cranial nerves II through XII grossly intact. Normal speech, normal gait SKIN: Warm, Dry, normal turgor, no rashes or lesions noted. <Marisela Pavon - Last Filed: 03/21/17 23:34> - Vital Signs Last Vital Signs Temp Pulse Resp BP Pulse Ox 98.8 F 125 H 25 H 123/65 100 03/21/17 20:15 03/21/17 20:15 03/21/17 20:15 03/21/17 20:15 03/21/17 20:22 <Selena Lima - Last Filed: 03/22/17 00:13> ED Treatment Course - LABORATORY CBC & Chemistry Diagram: 03/21/17 20:45 03/21/17 21:38 - ADDITIONAL ORDERS Additional order review: Laboratory Results 03/21/17 03/21/17 03/21/17 20:45 20:45 20:45 PT with INR 11.20 INR 0.99 PTT (Actin FS) 29.8 VBG pH 7.32 POC VBG pCO2 77.4 H* POC VBG pO2 65.6 H D Mixed VBG HCO3 38.4 H Sodium Cancelled Potassium Cancelled Chloride Cancelled Carbon Dioxide Cancelled Anion Gap Cancelled BUN Cancelled Creatinine Cancelled Creat Clearance w eGFR Cancelled Random Glucose Cancelled Calcium Cancelled Total Bilirubin Cancelled AST Cancelled ALT Cancelled Alkaline Phosphatase Cancelled Creatine Kinase Cancelled Troponin I Cancelled Total Protein Cancelled Albumin Cancelled 03/21/17 20:45 RBC 3.91 L MCV 94.7 MCHC 33.0 RDW 15.3 MPV 8.7 Neutrophils % 77.4 D Lymphocytes % 10.6 D Monocytes % 8.4 Eosinophils % 2.8 Basophils % 0.8 - Medications Given in the ED: ED Medications Discontinued Medications Generic Name Dose Route Start Last Admin Trade Name Freq PRN Reason Stop Dose Admin Sodium Chloride 1,000 ml 03/21/17 20:30 03/21/17 21:20 Normal Saline - IV 03/21/17 20:31 1,000 ml ONCE ONE Administration <Marisela Pavon - Last Filed: 03/21/17 23:34> - LABORATORY CBC & Chemistry Diagram: 03/21/17 20:45 03/21/17 21:38 <Selena Lima - Last Filed: 03/22/17 00:13> Medical Decision Making - Medical Decision Making 03/21/17 22:26-- Called Pradip. Patient's case was discussed. 03/21/17 22:34 Clarita paged via phone answering service. Franklyn [employer]. Awaiting call back. 03/21/17 23:34 Franklyn returned the page and the patients case was discussed. <Marisela Pavon - Last Filed: 03/21/17 23:34> - Medical Decision Making 03/22/17 00:12 Pt has a right lower lobe pneumonia on XR 03/22/17 00:13 Dr. Moseley is aware of the patient. Dr. Otto's associate Jonny? aware of the patient. Consult placed for Dr. Downey <Selena Lima - Last Filed: 03/22/17 00:13> *DC/Admit/Observation/Transfer - Attestations Scribe Attestion: 03/21/17 21:25 Documentation prepared by Marisela Pavon, acting as medical aide for Selena Lima MD/DO. <Marisela Pavon - Last Filed: 03/21/17 23:34> - Discharge Dispostion Admit: Yes <Selena Lima - Last Filed: 03/22/17 00:13> Diagnosis at time of Disposition: Bronchiectasis with (acute) exacerbation, Pneumonia, Pulmonary hypertension, COPD (chronic obstructive pulmonary disease) with acute bronchitis - Discharge Dispostion Condition at time of disposition: Guarded
[2017-03-21] MEDS ORDERED: SODIUM CHLORIDE 0.9% 1000 ML INFUS.BAG IV ONE (20:30)
[2017-03-21] MEDS ORDERED: PIPERACIL/TAZOB 3.375 GM 3.375 GM/50 ML PREMIX IVPB ONE (20:50)
[2017-03-21] MEDS ORDERED: PIPERACILLIN/TAZOB 3.375 GM 3.375 GM/50 ML BAG IVPB ONE (20:52)
[2017-03-21 20:57] LABS: BASO % 0.8 % (0-2.0); EOS % 2.8 % (0-4.5); HEMATOCRIT 37.1 % (35.4-49); HEMOGLOBIN 12.2 GM/dL (11.7-16.9); LYMPH % 10.6 % (8-40); MCH 31.2 pg (25.7-33.7); MEAN CELL VOLUME 94.7 fl (80-96); MEAN PLT VOLUME 8.7 fl (7.5-11.1); MONO % 8.4 % (3.8-10.2); NEUT % 77.4 % (42.8-82.8); PLATELET COUNT 199 K/MM3 (134-434); RBC 3.91 M/mm3 (4.00-5.60); RDW 15.3 % (11.9-15.9); WHITE BLOOD COUNT 8.8 K/mm3 (4.0-10.0)
[2017-03-21 21:00] LABS: VENOUS PH 7.32 (7.32-7.42); VENOUS PO2 65.6 mmHg (28-48)
[2017-03-21] MEDS ORDERED: PIPERACILLIN/TAZOB 3.375 GM 3.375 GM in DEXTROSE 5%-WATER - 100 ML IVPB ONE (21:00)
[2017-03-21 21:02] LABS: VENOUS PC02 77.4 mmHg (38-52)
[2017-03-21 21:17] LABS: INR 0.99 (0.82-1.09); PROTHROMBIN TIME (PATIENT) 11.2 SEC (9.98-11.88)
[2017-03-21 21:19] LABS: ACTIVATED PTT 29.8 SECONDS (26.9-34.4)
[2017-03-21] MEDS ORDERED: ACETAMINOPHEN 1000 MG/100 ML VIAL (NON FORMULARY) IVPB ONE (21:26)
[2017-03-21] MEDS ORDERED: ACETAMINOPHEN INJECTION 100 ML IVPB ONE (21:31)
[2017-03-21 21:43] LABS: URINE APPEARANCE CLEAR; URINE BILIRUBIN NEGATIVE (NEGATIVE); URINE BLOOD NEGATIVE (NEGATIVE); URINE COLOR LTYELLOW; URINE GLUCOSE (UA) NEGATIVE (NEGATIVE); URINE KETONE NEGATIVE (NEGATIVE); URINE LEUK ESTERASE NEGATIVE (NEGATIVE); URINE NITRITE NEGATIVE (NEGATIVE); URINE PROTEIN NEGATIVE (NEGATIVE); URINE UROBILINOGEN NEGATIVE mg/dL (0.2-1.0)
[2017-03-21 22:15] LABS: ANION GAP 4 (8-16); BLOOD UREA NITROGEN 29 mg/dL (7-18); CALCIUM 7.6 mg/dL (8.5-10.1); CHLORIDE 96 mmol/L (98-107); CO2 37 mmol/L (21-32); CREATININE 1.8 mg/dL (0.7-1.3); GLUCOSE,RANDOM 211 mg/dL (74-106); POTASSIUM 3.9 mmol/L (3.5-5.1); SGOT/AST 22 U/L (15-37); SGPT/ALT 44 U/L (12-78); SODIUM 137 mmol/L (136-145)
[2017-03-21 22:16] LABS: ALK PHOS 72 U/L (45-117); BILIRUBIN,TOTAL 0.5 mg/dL (0.2-1.0); TOT PROT 6.3 g/dl (6.4-8.2)
[2017-03-21] MEDS ORDERED: ACETAMINOPHEN 325 MG TABLET (FP) PO PRN (22:45)
[2017-03-22] MEDS: ALBUTEROL SO4 2.5/IPRATROPIUM 0.5 INH SOL 3 ML VIAL.NEB. NEB SCH ×4 (00:08→18:22)
[2017-03-22] MEDS ORDERED: ALBUTEROL SO4 2.5/IPRATROPIUM 0.5 INH SOL 3 ML VIAL.NEB. NEB ONE ×2 (01:27→13:35)
[2017-03-22] MEDS ORDERED: PIPERACILLIN/TAZOB 3.375 GM 3.375 GM in DEXTROSE 5%-WATER - 100 ML IVPB SCH (02:00)
[2017-03-22] MEDS ORDERED: PIPERACILLIN/TAZOB 3.375 GM 50 ML IVPB SCH (02:00)
[2017-03-22] MEDS ORDERED: FUROSEMIDE 40 MG TABLET (FP) ONE (05:51)
[2017-03-22] MEDS ORDERED: HEPARIN NA (PORCINE) 5,000 UNITS/ML 1ML VIAL ONE (05:51)
[2017-03-22] MEDS ORDERED: sitaGLIPtin PHOSPHATE 50 MG TABLET ONE (05:51)
[2017-03-22] MEDS ORDERED: PIPERACILLIN/TAZOB 3.375 GM/50 ML PRE-DOCKED IVPB SCH (06:00)
[2017-03-22] MEDS ORDERED: HEPARIN NA (PORCINE) 5,000 UNITS/ML 1ML VIAL SQ SCH (06:00)
[2017-03-22] MEDS ORDERED: FUROSEMIDE 40 MG TABLET (FP) PO SCH (06:00)
[2017-03-22] MEDS: sitaGLIPtin PHOSPHATE 25 MG TABLET (FP) PO SCH (06:37)
[2017-03-22] MEDS: INSULIN SLIDING SCALE (NOVOLOG) 1 VIAL SQ SCH ×4 (06:37→22:24)
[2017-03-22 07:25] LABS: BASO % 0.6 % (0-2.0); EOS % 1.7 % (0-4.5); HEMATOCRIT 44.3 % (35.4-49); HEMOGLOBIN 13.9 GM/dL (11.7-16.9); LYMPH % 8.8 % (8-40); MCH 30.5 pg (25.7-33.7); MCHC 31.5 g/dl (32.0-35.9); MEAN CELL VOLUME 96.8 fl (80-96); MEAN PLT VOLUME 8.5 fl (7.5-11.1); MONO % 8.5 % (3.8-10.2); NEUT % 80.4 % (42.8-82.8); PLATELET COUNT 196 K/MM3 (134-434); RBC 4.57 M/mm3 (4.00-5.60); RDW 15.6 % (11.9-15.9); WHITE BLOOD COUNT 10.7 K/mm3 (4.0-10.0)
[2017-03-22 07:51] LABS: ALBUMIN 3.5 g/dl (3.4-5.0); ANION GAP 3 (8-16); BLOOD UREA NITROGEN 28 mg/dL (7-18); CALCIUM 8.1 mg/dL (8.5-10.1); CHLORIDE 97 mmol/L (98-107); CO2 40 mmol/L (21-32); CREATININE 1.8 mg/dL (0.7-1.3); GLUCOSE,RANDOM 155 mg/dL (74-106); MAGNESIUM 2.2 mg/dL (1.8-2.4); SGOT/AST 26 U/L (15-37); SGPT/ALT 49 U/L (12-78); SODIUM 140 mmol/L (136-145); TOT PROT 7.2 g/dl (6.4-8.2)
[2017-03-22 07:55] LABS: ALK PHOS 78 U/L (45-117); BILIRUBIN,TOTAL 0.4 mg/dL (0.2-1.0); CHOLESTEROL 155 mg/dL (50-200); HDL CHOLESTEROL 64 mg/dL (40-60); LDL CHOLESTEROL (ONLY SJRH) 84 mg/dL (5-100); PHOSPHOROUS 4.8 mg/dL (2.5-4.9); TRIGLYCERIDES 101 mg/dL (35-160)
--- NOTE | 2017-03-22 08:32 | PN ---
Progress Note, Physician Chief Complaint: Cardiology follow up note, recent discharge. 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 CXR reveals pleural effusion and increased PVC; also found to be febrile, cultured and placed on broad spectrum abx. Started on Lasix and CPAP. Seen and examined in ER, on CPAP. Sleeping but arousable. Appears to be in AF on tele, confirmed on ECG. He denies CP, + SOB and occasional dry cough. Denies PND or orhtopnea. - Current Medication List Current Medications: Active Medications Acetaminophen (Tylenol -) 325 mg PO DAILY PRN Albuterol/Ipratropium (Duoneb -) 1 amp NEB QIDR [facility] Last Admin: 03/22/17 06:53 Dose: 1 amp Apixaban (Eliquis -) 2.5 mg PO BID [facility] Aspirin (Asa -) 81 mg PO DAILY [facility] Atorvastatin Calcium (Lipitor -) 10 mg PO HS [facility] Docusate Sodium (Colace -) 100 mg PO DAILY [facility] Furosemide (Lasix Injection -) 40 mg IVPUSH DAILY [facility] Guaifenesin (Robitussin -) 5 ml PO QID [facility] Piperacillin Sod/Tazobactam (Sod 3.375 gm/ Dextrose) 100 mls @ 200 mls/hr IVPB Q8H-IV [facility] Insulin Aspart (Novolog Vial Sliding Scale -) 1 vial SQ ACHS [facility] PRN Reason: Protocol Last Admin: 03/22/17 06:37 Dose: Not Given Insulin Detemir (Levemir Vial) 30 units SQ HS [facility] Polyethylene Glycol (Miralax (For Daily Use) -) 17 gm PO BID [facility] Sitagliptin Phosphate (Januvia -) 25 mg PO DAILY@0700 [facility] Last Admin: 03/22/17 06:37 Dose: 25 mg - Objective Vital Signs: Vital Signs Temperature 97.6 F 03/22/17 06:53 Pulse Rate 80 03/22/17 06:40 Respiratory Rate 18 03/22/17 06:40 Blood Pressure 144/75 03/22/17 06:40 O2 Sat by Pulse Oximetry (%) 94 L 03/22/17 06:40 Eyes: Yes: Conjunctiva Clear Cardiovascular: Yes: Pulse Irregular Respiratory: Yes: Other (diffusely decreased breath sounds; no wheezing. decreased at bases.) Gastrointestinal: Yes: Soft (non-tender. No rebound or guarding.), Abdomen, Obese Edema: Yes Edema: LLE: 1+, RLE: 1+ Neurological: Yes: Alert Labs: CBC, BMP 03/22/17 06:46 03/22/17 06:46 INR, PTT INR 0.99 (0.82-1.09) 03/21/17 20:45 Microbiology Laboratory Tests 03/21/17 03/21/17 03/22/17 20:45 20:45 06:46 WBC 10.7 H Hgb 13.9 D Plt Count 196 INR 0.99 VBG pH 7.32 POC VBG pCO2 77.4 H* POC VBG pO2 65.6 H D Sodium Potassium BUN Creatinine AST ALT Alkaline Phosphatase Total LDL Cholesterol 03/22/17 06:46 WBC Hgb Plt Count INR VBG pH POC VBG pCO2 POC VBG pO2 Sodium 140 Potassium 4.0 BUN 28 H Creatinine 1.8 H AST 26 ALT 49 Alkaline Phosphatase 78 Total LDL Cholesterol 84 - ....Imaging Chest X-ray: Image Reviewed EKG: Image Reviewed (Atrial fibrillation at 117 bpm, new onset.) Problem List - Problems (1) Bronchiectasis with (acute) exacerbation Code(s): J47.1 - BRONCHIECTASIS WITH (ACUTE) EXACERBATION (2) Pneumonia Code(s): J18.9 - PNEUMONIA, UNSPECIFIED ORGANISM Qualifiers: Laterality: unspecified laterality (3) Pulmonary hypertension Code(s): I27.20 - PULMONARY HYPERTENSION, UNSPECIFIED (4) Acute respiratory failure with hypercapnia Code(s): J96.02 - ACUTE RESPIRATORY FAILURE WITH HYPERCAPNIA (5) Acute respiratory failure with hypoxia Code(s): J96.01 - ACUTE RESPIRATORY FAILURE WITH HYPOXIA (6) New onset a-fib Code(s): I48.91 - UNSPECIFIED ATRIAL FIBRILLATION (7) CAD (coronary artery disease) Code(s): I25.10 - ATHSCL HEART DISEASE OF [place] CORONARY ARTERY W/O ANG PCTRS Qualifiers: Coronary Disease-Associated Artery/Lesion type: bypass graft, autologous artery Associated angina: without angina Qualified Code(s): I25.810 - Atherosclerosis of coronary artery bypass graft(s) without angina pectoris (8) ASHD (arteriosclerotic heart disease) Code(s): I25.10 - ATHSCL HEART DISEASE OF [place] CORONARY ARTERY W/O ANG PCTRS (9) Acute kidney injury Code(s): N17.9 - ACUTE KIDNEY FAILURE, UNSPECIFIED Assessment/Plan IMP: 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 New onset AF: likely triggered by acutely worsened pulmonary status/possible PNA and volume overload. -D/W Dr. Moseley: will start Eliquis, adjusted for GFR. -Add Cardizem 30mg PO q6h with hold parameters for rate control -Repeat Echo 2. Acute on chronic combined systolic and diastolic CHF: -Switch Lasix to IV -Tele monitoring -Daily deights and close monitoring of renal fxn -CPAP 3. Bronchiectasis/hypoxia/fever: -Abx/CPAP, further w/u as per PMD
[2017-03-22] MEDS: POLYETHYLENE GLYCOL 3350 119 GM BTL PO SCH ×2 (10:28→22:24)
[2017-03-22] MEDS: APIXABAN 2.5 MG TABLET PO SCH ×2 (10:50→22:23)
[2017-03-22] MEDS: ASPIRIN 81 MG CHEWABLE TABLETS PO SCH (10:50)
[2017-03-22] MEDS: DOCUSATE SODIUM 100 MG CAPSULE (FP) PO SCH (10:50)
[2017-03-22] MEDS: dilTIAZem HCL 30 MG TABLET (FP) PO SCH ×3 (10:50→17:58)
[2017-03-22] MEDS: guaiFENesin 200 MG/10 ML 10 ML UNIT-DOSE CUPS PO SCH ×4 (10:52→22:25)
[2017-03-22] MEDS: FUROSEMIDE 40 MG/4 ML INJECTABLE VIAL IVPUSH SCH (11:40)
--- NOTE | 2017-03-22 11:44 | HP ---
Admitting History and Physical - Admission Chief Complaint: 86 y.o M who was d/c from [facility] after being treated for PNA to SNF rehab developed at the [place] shaking chills, rigors, SOB and respiratory distress. He was also having increased swelling of his ankle for 2-3 days [employer] WO[employer]. 101.4F at the ER and the patient was admitted to the hospital for further management. History of Present Illness: Persistent 6.7cm left basilar atelectasis/consolidation. CABG ASHD. DM type on Levemir/Januvia.. CRI. 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 JUAN-at nights using CPAP. 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 History of Recent Travel: No Home Medications - Allergies Allergies/Adverse Reactions: Allergies Allergy/AdvReac Type Severity Reaction Status Date / Time No Known Allergies Allergy Verified 03/02/17 10:17 - Home Medications Home Medications: Ambulatory Orders Aspirin [ASA -] 81 mg PO DAILY 06/24/14 Pravastatin Sodium [Pravachol -] 40 mg PO HS 10/12/14 Insulin (Levemir) [Levemir Flexpen -] 30 units SQ HS #1 pen 10/14/14 Sitagliptin Phosphate [Januvia -] 25 mg PO DAILY@0700 #90 tab 10/14/14 Furosemide [Lasix -] 40 mg PO BID #30 tablet 03/01/16 Polyethylene Glycol 3350 [Miralax 119 gm Btl -] 17 gm PO BID bottle 06/24/16 Albuterol 2.5/Ipratropium 0.5 [Duoneb -] 1 amp NEB TIDR amp 03/07/17 Acetaminophen 325 mg PO PRN 03/21/17 Docusate Sodium [Colace] 100 mg PO DAILY 03/21/17 Guaifenesin 100 mg PO QID 03/21/17 Ipratropium 0.02% Nebulizer [Atrovent *Nebulizer*] 0.5 mg IH PRN 03/21/17 Family Disease History - Family Disease History Family History: Unable to Obtain Review of Systems Unable to obtain ROS, reason: Lethargic Physical Examination Vital Signs: Vital Signs Temperature 98.0 F 03/22/17 08:15 Pulse Rate 106 H 03/22/17 08:15 Respiratory Rate 26 H 03/22/17 08:15 Blood Pressure 141/77 03/22/17 08:15 O2 Sat by Pulse Oximetry (%) 98 03/22/17 08:15 Findings/Remarks: Lethargic on BIPAP 02/23 Constitutional: Yes: Severe Distress, Obese Eyes: Yes: Conjunctiva Clear, EOM Intact, PERRL HENT: Yes: Atraumatic, Normocephalic Neck: Yes: Supple. No: Lymphadenopathy, Rigid Cardiovascular: Yes: Tachycardia (A.Fib on monitor with rapid VR), Pulse Irregular, S1, S2. No: JVD, Rub Respiratory: Yes: Diminished (B/L), On BiPap, Rales, Rhonchi, SOB Gastrointestinal: Yes: Normal Bowel Sounds, Soft, Abdomen, Obese. No: Palpable Mass, Pulsatile Mass, Splenomegaly, Tenderness ...Rectal Exam: Yes: Deferred Renal/: No: Anuria, Bladder Distention Breast(s): Yes: WNL, Other (Healed midline scar post CABG) Musculoskeletal: No: Joint Stiffness Extremities: No: Calf Tenderness, Cold, Cyanosis Edema: Yes Edema: LLE: 2+, RLE: 2+ Peripheral Pulses WNL: No Integumentary: Yes: WNL Neurological: Yes: Alert (Lethargic, arousable after verbal stimuli/painful) Psychiatric: No: Agitated Labs: CBC, BMP 03/22/17 06:46 03/22/17 06:46 Imaging - Results Chest X-ray: Report Reviewed Problem List - Problems (1) Bronchiectasis with (acute) exacerbation Assessment/Plan: IV Abx started, blood cx Code(s): J47.1 - BRONCHIECTASIS WITH (ACUTE) EXACERBATION (2) COPD (chronic obstructive pulmonary disease) with acute bronchitis Code(s): J44.0 - CHRONIC OBSTRUCTIVE PULMON DISEASE W ACUTE LOWER RESP INFCT; J20.9 - ACUTE BRONCHITIS, UNSPECIFIED (3) New onset a-fib Assessment/Plan: Start A/C, rate control Code(s): I48.91 - UNSPECIFIED ATRIAL FIBRILLATION (4) Pneumonia Assessment/Plan: Continue IV Abx, follow fever, wbc, cxr, pulm consult Code(s): J18.9 - PNEUMONIA, UNSPECIFIED ORGANISM Qualifiers: Laterality: unspecified laterality (5) Pulmonary hypertension Assessment/Plan: Probably combination of JUAN, class 2 and class 3 PAH BIPAP Continue IV lasix. Code(s): I27.20 - PULMONARY HYPERTENSION, UNSPECIFIED
[2017-03-22] MEDS: PIPERACILLIN/TAZOB 3.375 GM 3.375 GM in DEXTROSE 5%-WATER - 100 ML IVPB SCH (11:45)
--- NOTE | 2017-03-22 12:49 | PN ---
Progress Note (short form) - Note Progress Note: ID Consult dictated Acute exacerbation COPD Possible HCAP Bronchiectasis ? CHF New onset Afib CKD Await c/s Obtain sputum c/s, legionella/ pneumococcal ag Influenza swab Empiric zosyn + stat dose vancomycin
[2017-03-22 14:04] LABS: ARTERIAL BLOOD GAS PO2 72.4 mmHg (68-100); ARTERIAL BLOOD GAS pH 7.25 (7.35-7.45)
[2017-03-22 14:05] LABS: ALLENS TEST POSITIVE; ARTERIAL BLD GAS O2 SATURATION 92.5 % (90-98.9); ARTERIAL BLOOD GAS BASE EXCESS 12.5 meq/l (-2-2)
--- NOTE | 2017-03-22 14:13 | CONS ---
DATE OF CONSULTATION: DATE OF DICTATION: 03/22/2017 HISTORY OF PRESENT ILLNESS: The patient is an 86-year-old male with a history of chronic lung disease secondary to bronchiectasis, occupational lung disease and COPD, who is evaluated for possible pneumonia. The patient was recently hospitalized at [facility] in February for exacerbation of COPD and pneumonia. He was at a fpc facility for rehabilitation. While there, he developed worsening shortness of breath and bilateral lower extremity edema. He was also noted to be weaker with a dry cough. He developed onset of shaking chills. He was taken to the emergency room where patient was short of breath at rest. He was placed on a nonrebreather mask. His O2 saturations were in the high 70s. He was noted to have fever of 101.4. Chest x-ray shows increased markings at the bases bilaterally. Patient was given Lasix, BiPAP and empiric Zosyn. His emergency room course has been complicated by new onset atrial fibrillation. At the present time, he is awake. He is short of breath on BiPAP. Denies chest pain. The patient is unaware of any ill contacts at the nursing facility. The family states he received influenza vaccine. He is a former smoker; stopped 20 years ago. PAST MEDICAL HISTORY: Positive for diabetes mellitus, chronic obstructive pulmonary disease, bronchiectasis, coronary artery disease, chronic kidney disease, obstructive sleep apnea, pulmonary hypertension. PAST SURGICAL HISTORY: Status post coronary artery bypass graft. ALLERGIES: No known allergies. MEDICATIONS: Tylenol, albuterol, Eliquis, aspirin, Lipitor, Cardizem, Colace, Lasix, insulin. SOCIAL HISTORY: He is a former smoker; stopped 20 years ago. Recent residence in a fpc facility. History of occupational lung disease. SYSTEMS REVIEW:Neurologic: No loss of consciousness, seizure activity, focal weakness. Cardiac: Negative chest pain or palpitations. Positive new onset atrial fibrillation. Gastrointestinal: Negative vomiting or diarrhea. Genitourinary: Negative for urinary tract infection. LABORATORY DATA: White count 10.7, hematocrit 44.3, platelet count 196. BUN 28, creatinine 1.8. Liver enzymes normal. Urinalysis: Negative leukocyte esterase. Chest x-ray shows increased markings bilaterally with probable left pleural effusion. PHYSICAL EXAMINATION:General: He is awake. He is short of breath at rest on BiPAP mask. He is morbidly obese. Vital Signs: His temperature is 98.0, T-max 101.4, blood pressure 141/77, pulse 108, irregular, respirations 26 per minute. HEENT: Sclerae are anicteric. Oropharynx not visualized secondary to BiPAP mask. Cardiac: Heart sounds S1, S2 distant. No loud murmur. Lungs: Diminished breath sounds throughout both lung cochran. There is a healed sternal scar. Abdomen: Obese, distended, tympanitic. No tenderness elicited. No mass, rebound or rigidity. Extremities: Positive for bilateral pedal edema, 2+. IMPRESSION: 1. Acute exacerbation, chronic obstructive pulmonary disease. 2. Chronic bronchiectasis with acute exacerbation. 3. Possible healthcare-associated pneumonia. 4. Congestive heart failure. 5. New onset atrial fibrillation. 6. Chronic kidney disease. RECOMMENDATIONS: Obtain sputum culture, urine Legionella and pneumococcal antigens. Obtain influenza swab. Empiric antibiotic coverage for possible healthcare-associated pneumonia with Zosyn and vancomycin adjusted for renal insufficiency. Continue BiPAP. Pulmonary and Cardiology evaluations. I will follow. Thank you for the kind referral. PRITESH VASQUEZ M.D. [id number]
[2017-03-22 14:58] VITALS: BMI 38.0
--- NOTE | 2017-03-22 15:40 | CONSULT ---
Consult Consult Specialty:: PULMONARY/CCM Referred by:: Dr. 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 He denies chest pain but reports nonproductive cough. Noted to be febrile to 101.4 on presentation. Denies nausea, vomiting or diarrhea. Hypoxic to 70s, placed on BiPAP and transferred to ICU for closer monitoring. 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 History of Recent Travel: No Home Medications - Allergies Allergies/Adverse Reactions: Allergies Allergy/AdvReac Type Severity Reaction Status Date / Time No Known Allergies Allergy Verified 03/02/17 10:17 - Home Medications Home Medications: Ambulatory Orders Aspirin [ASA -] 81 mg PO DAILY 06/24/14 Pravastatin Sodium [Pravachol -] 40 mg PO HS 10/12/14 Insulin (Levemir) [Levemir Flexpen -] 30 units SQ HS #1 pen 10/14/14 Sitagliptin Phosphate [Januvia -] 25 mg PO DAILY@0700 #90 tab 10/14/14 Furosemide [Lasix -] 40 mg PO BID #30 tablet 03/01/16 Polyethylene Glycol 3350 [Miralax 119 gm Btl -] 17 gm PO BID bottle 06/24/16 Albuterol 2.5/Ipratropium 0.5 [Duoneb -] 1 amp NEB TIDR amp 03/07/17 Acetaminophen 325 mg PO PRN 03/21/17 Docusate Sodium [Colace] 100 mg PO DAILY 03/21/17 Guaifenesin 100 mg PO QID 03/21/17 Ipratropium 0.02% Nebulizer [Atrovent *Nebulizer*] 0.5 mg IH PRN 03/21/17 Review of Systems Unable to obtain ROS, reason: pt on BiPAP - Review of Systems Constitutional: denies: Chills, Fever Physical Exam Vital Signs: Vital Signs Temperature 98.0 F 03/22/17 08:15 Pulse Rate 108 H 03/22/17 14:30 Respiratory Rate 18 03/22/17 14:30 Blood Pressure 125/72 03/22/17 14:30 O2 Sat by Pulse Oximetry (%) 92 L 03/22/17 14:30 Constitutional: Yes: Mild Distress Eyes: Yes: Conjunctiva Clear, EOM Intact HENT: Yes: Atraumatic, Normocephalic Neck: Yes: Supple, Trachea Midline Cardiovascular: Yes: Regular Rate and Rhythm Respiratory: Yes: Rhonchi (scattered) Gastrointestinal: Yes: Normal Bowel Sounds, Soft. No: Tenderness Edema: No Neurological: Yes: Alert, Oriented Labs: CBC, BMP 03/22/17 06:46 03/22/17 06:46 Imaging - Results Chest X-ray: Report Reviewed, Image Reviewed (pulmonary vascular congestion) Problem List - Problems (1) Acute respiratory failure with hypercapnia Code(s): J96.02 - ACUTE RESPIRATORY FAILURE WITH HYPERCAPNIA (2) Acute respiratory failure with hypoxia Code(s): J96.01 - ACUTE RESPIRATORY FAILURE WITH HYPOXIA (3) COPD with acute exacerbation Code(s): J44.1 - CHRONIC OBSTRUCTIVE PULMONARY DISEASE W (ACUTE) EXACERBATION (4) Bronchiectasis with (acute) exacerbation Code(s): J47.1 - BRONCHIECTASIS WITH (ACUTE) EXACERBATION (5) CAD (coronary artery disease) Code(s): I25.10 - ATHSCL HEART DISEASE OF [place] CORONARY ARTERY W/O ANG PCTRS Qualifiers: Coronary Disease-Associated Artery/Lesion type: bypass graft, autologous artery Associated angina: without angina Qualified Code(s): I25.810 - Atherosclerosis of coronary artery bypass graft(s) without angina pectoris (6) Pulmonary hypertension Code(s): I27.20 - PULMONARY HYPERTENSION, UNSPECIFIED (7) Acute on chronic systolic (congestive) heart failure Code(s): I50.23 - ACUTE ON CHRONIC SYSTOLIC (CONGESTIVE) HEART FAILURE Assessment/Plan Acute on Chronic Hypoxic and Hypercapneic Respiratory Failure New Onset Atrial Fibrillation r/o Pneumonia r/o Influenza Acute COPD/Bronchiectasis Exacerbation Acute on Chronic Systolic Heart Failure Asbestos Exposure CAD s/p CABG Pulmonary HTN DM CKD - empiric antibiotics - flu swab - urinary antigens - short course of medrol - inhaled bronchodilators - adjusted BiPAP settings - O2 to keep Spo2 >90% - monitor ABG - rate control - anticoagulation - IV lasix - monitor urine output, creatinine - ICU monitoring for tenuous respiratory status critical care time spent in reviewing chart, evaluating patient and formulating plan 35 min
[2017-03-22] MEDS: methylPREDNISolone NA SUCC 40 MG/1 ML VIAL IVPUSH SCH ×2 (15:58→17:59)
[2017-03-22] MEDS ORDERED: PT OWN MED DRAWER 7, Y5N ONE (18:15)
[2017-03-22] MEDS: ATORVASTATIN CA 10 MG TABLET (FP) PO SCH (22:24)
[2017-03-22] MEDS: INSULIN DETEMIR 100 UNITS/ML MDV SQ SCH (22:24)
[2017-03-23] MEDS: PIPERACILLIN/TAZOB 3.375 GM 3.375 GM in DEXTROSE 5%-WATER - 100 ML IVPB SCH ×5 (02:31→22:36)
[2017-03-23] MEDS: methylPREDNISolone NA SUCC 40 MG/1 ML VIAL IVPUSH SCH ×4 (02:31→22:00)
[2017-03-23] MEDS: dilTIAZem HCL 30 MG TABLET (FP) PO SCH ×4 (02:32→17:46)
[2017-03-23] MEDS: ALBUTEROL SO4 2.5/IPRATROPIUM 0.5 INH SOL 3 ML VIAL.NEB. NEB SCH ×5 (06:15→23:47)
[2017-03-23 06:40] LABS: HEMATOCRIT 36.8 % (35.4-49); HEMOGLOBIN 12.2 GM/dL (11.7-16.9); MCH 31.6 pg (25.7-33.7); MCHC 33.1 g/dl (32.0-35.9); MEAN CELL VOLUME 95.4 fl (80-96); MEAN PLT VOLUME 9.2 fl (7.5-11.1); PLATELET COUNT 199 K/MM3 (134-434); RBC 3.86 M/mm3 (4.00-5.60); RDW 15.1 % (11.9-15.9); WHITE BLOOD COUNT 7.4 K/mm3 (4.0-10.0)
[2017-03-23] MEDS: INSULIN SLIDING SCALE (NOVOLOG) 1 VIAL SQ SCH ×4 (07:12→22:53)
[2017-03-23 07:27] LABS: ALK PHOS 61 U/L (45-117); ANION GAP 4 (8-16); BILIRUBIN,TOTAL 0.5 mg/dL (0.2-1.0); BLOOD UREA NITROGEN 32 mg/dL (7-18); CALCIUM 7.7 mg/dL (8.5-10.1); CHLORIDE 94 mmol/L (98-107); CO2 40 mmol/L (21-32); CREATININE 1.6 mg/dL (0.7-1.3); GLUCOSE,RANDOM 188 mg/dL (74-106); PHOSPHOROUS 3.3 mg/dL (2.5-4.9); POTASSIUM 4.2 mmol/L (3.5-5.1); SGOT/AST 18 U/L (15-37); SGPT/ALT 39 U/L (12-78); SODIUM 138 mmol/L (136-145); TOT PROT 6.2 g/dl (6.4-8.2)
--- NOTE | 2017-03-23 08:12 | PN ---
Progress Note, Physician Chief Complaint: Admitted to telemetry/ ICU for acute ventilatory failure and acute respiratory acidosis. ICU attending consult appreciated. Spoke to son today and explained patient's condition. the patient is more awake today. Still in A.Fib on monitor. History of Present Illness: Persistent 6.7cm left basilar atelectasis/consolidation. CABG ASHD. DM type on Levemir/Januvia.. CRI. 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 JUAN-at nights using CPAP. - Current Medication List Current Medications: Active Medications Acetaminophen (Tylenol -) 325 mg PO DAILY PRN Albuterol/Ipratropium (Duoneb -) 1 amp NEB QIDR [facility] Last Admin: 03/23/17 06:15 Dose: 1 amp Apixaban (Eliquis -) 2.5 mg PO BID [facility] Last Admin: 03/22/17 22:23 Dose: Not Given Aspirin (Asa -) 81 mg PO DAILY [facility] Last Admin: 03/22/17 10:50 Dose: 81 mg Atorvastatin Calcium (Lipitor -) 10 mg PO HS [facility] Last Admin: 03/22/17 22:24 Dose: Not Given Diltiazem HCl (Cardizem -) 30 mg PO Q6HPO [facility] Last Admin: 03/23/17 07:12 Dose: 30 mg Docusate Sodium (Colace -) 100 mg PO DAILY [facility] Last Admin: 03/22/17 10:50 Dose: 100 mg Furosemide (Lasix Injection -) 40 mg IVPUSH DAILY [facility] Last Admin: 03/22/17 11:40 Dose: 40 mg Guaifenesin (Robitussin -) 5 ml PO QID [facility] Last Admin: 03/22/17 22:25 Dose: Not Given Piperacillin Sod/Tazobactam (Sod 3.375 gm/ Dextrose) 100 mls @ 200 mls/hr IVPB Q8H-IV [facility] Last Admin: 03/23/17 02:31 Dose: 200 mls/hr Insulin Aspart (Novolog Vial Sliding Scale -) 1 vial SQ ACHS [facility] PRN Reason: Protocol Last Admin: 03/23/17 07:12 Dose: 2 units Insulin Detemir (Levemir Vial) 30 units SQ [facility] Last Admin: 03/22/17 22:24 Dose: Not Given Methylprednisolone Sodium Succinate (Solu-Medrol -) 40 mg IVPUSH Q8H-IV [facility] Last Admin: 03/23/17 02:31 Dose: 40 mg Polyethylene Glycol (Miralax (For Daily Use) -) 17 gm PO BID [facility] Last Admin: 03/22/17 22:24 Dose: Not Given Sitagliptin Phosphate (Januvia -) 25 mg PO DAILY@0700 [facility] Last Admin: 03/22/17 06:37 Dose: 25 mg - Objective Vital Signs: Vital Signs Temperature 97.4 F L 03/23/17 02:00 Pulse Rate 91 H 03/23/17 06:04 Respiratory Rate 24 03/23/17 06:04 Blood Pressure 122/60 03/23/17 06:04 O2 Sat by Pulse Oximetry (%) 97 03/22/17 20:26 Constitutional: Yes: Moderate Distress, Obese Eyes: Yes: Conjunctiva Clear, EOM Intact HENT: Yes: Atraumatic, Normocephalic. No: Drooling, Epistaxis, Thrush Neck: Yes: Supple, Trachea Midline. No: Lymphadenopathy, Rigid, Thyromegaly Cardiovascular: Yes: Tachycardia, Pulse Irregular, S1, S2. No: JVD Respiratory: Yes: Regular, Accessory Muscle Use, Diminished (LLL), On BiPap, Poor Air Entry, Rhonchi Gastrointestinal: Yes: Normal Bowel Sounds, Soft, Abdomen, Obese. No: Ascites, Palpable Mass, Tenderness ...Rectal Exam: Yes: Deferred Genitourinary: No: Anuria, Bladder Distention Breast(s): Yes: WNL Musculoskeletal: No: Back Pain, Joint Stiffness, Joint Swelling Extremities: No: Amputation, Calf Tenderness, Cold, Cyanosis Edema: Yes Edema: LLE: Trace, RLE: Trace Peripheral Pulses WNL: No Integumentary: Yes: WNL Neurological: Yes: Alert, Oriented. No: Aphasia, Dysarthria ...Motor Strength: WNL Psychiatric: Yes: Alert, Oriented. No: Agitated, Suicidal Ideation Labs: CBC, BMP 03/23/17 05:05 INR, PTT INR 0.99 (0.82-1.09) 03/21/17 20:45 Problem List - Problems (1) Bronchiectasis with (acute) exacerbation Assessment/Plan: IV Abx started, blood cx Code(s): J47.1 - BRONCHIECTASIS WITH (ACUTE) EXACERBATION (2) COPD (chronic obstructive pulmonary disease) with acute bronchitis Code(s): J44.0 - CHRONIC OBSTRUCTIVE PULMON DISEASE W ACUTE LOWER RESP INFCT; J20.9 - ACUTE BRONCHITIS, UNSPECIFIED (3) New onset a-fib Assessment/Plan: Start A/C, rate control Code(s): I48.91 - UNSPECIFIED ATRIAL FIBRILLATION (4) Pneumonia Assessment/Plan: Continue IV Abx, follow fever, wbc, cxr, pulm consult Code(s): J18.9 - PNEUMONIA, UNSPECIFIED ORGANISM Qualifiers: Laterality: unspecified laterality (5) Pulmonary hypertension Assessment/Plan: Probably combination of JUAN, class 2 and class 3 PAH BIPAP Continue IV lasix. Code(s): I27.20 - PULMONARY HYPERTENSION, UNSPECIFIED (6) Respiratory failure with hypercapnia Assessment/Plan: Continue BIPAP. Code(s): J96.92 - RESPIRATORY FAILURE, UNSPECIFIED WITH HYPERCAPNIA Qualifiers: Chronicity: acute Qualified Code(s): J96.02 - Acute respiratory failure with hypercapnia (7) CHF exacerbation Assessment/Plan: Continue IV diuretics. Code(s): I50.9 - HEART FAILURE, UNSPECIFIED Qualifiers: Congestive heart failure type: combined Qualified Code(s): I50.43 - Acute on chronic combined systolic (congestive) and diastolic (congestive) heart failure (8) Pleural effusion Assessment/Plan: Increased effusion. CHF, pleural disease, localized effusion. Code(s): J90 - PLEURAL EFFUSION, NOT ELSEWHERE CLASSIFIED
[2017-03-23 08:24] LABS: ARTERIAL BLOOD GAS BASE EXCESS 10.5 meq/l (-2-2); ARTERIAL BLOOD GAS PCO2 30.9 mmHg (35-45); ARTERIAL BLOOD GAS pH 7.62 (7.35-7.45)
[2017-03-23 08:36] LABS: ALLENS TEST POSITIVE
--- NOTE | 2017-03-23 08:47 | PN ---
Progress Note, Physician Chief Complaint: Slightly confused On CPAP Knows name and that he is in hospital History of Present Illness: TELE: Rare VPCs; heart rate averaging 90-100bpm - Current Medication List Current Medications: Active Medications Acetaminophen (Tylenol -) 325 mg PO DAILY PRN Albuterol/Ipratropium (Duoneb -) 1 amp NEB QIDR [facility] Last Admin: 03/23/17 06:15 Dose: 1 amp Apixaban (Eliquis -) 2.5 mg PO BID [facility] Last Admin: 03/22/17 22:23 Dose: Not Given Aspirin (Asa -) 81 mg PO DAILY [facility] Last Admin: 03/22/17 10:50 Dose: 81 mg Atorvastatin Calcium (Lipitor -) 10 mg PO HS [facility] Last Admin: 03/22/17 22:24 Dose: Not Given Diltiazem HCl (Cardizem -) 30 mg PO Q6HPO [facility] Last Admin: 03/23/17 07:12 Dose: 30 mg Docusate Sodium (Colace -) 100 mg PO DAILY [facility] Last Admin: 03/22/17 10:50 Dose: 100 mg Furosemide (Lasix Injection -) 40 mg IVPUSH DAILY [facility] Last Admin: 03/22/17 11:40 Dose: 40 mg Guaifenesin (Robitussin -) 5 ml PO QID [facility] Last Admin: 03/22/17 22:25 Dose: Not Given Piperacillin Sod/Tazobactam (Sod 3.375 gm/ Dextrose) 100 mls @ 200 mls/hr IVPB Q8H-IV [facility] Last Admin: 03/23/17 02:31 Dose: 200 mls/hr Insulin Aspart (Novolog Vial Sliding Scale -) 1 vial SQ ACHS [facility] PRN Reason: Protocol Last Admin: 03/23/17 07:12 Dose: 2 units Insulin Detemir (Levemir Vial) 30 units SQ [facility] Last Admin: 03/22/17 22:24 Dose: Not Given Methylprednisolone Sodium Succinate (Solu-Medrol -) 40 mg IVPUSH Q8H-IV [facility] Last Admin: 03/23/17 02:31 Dose: 40 mg Polyethylene Glycol (Miralax (For Daily Use) -) 17 gm PO BID [facility] Last Admin: 03/22/17 22:24 Dose: Not Given Sitagliptin Phosphate (Januvia -) 25 mg PO DAILY@0700 [facility] Last Admin: 03/22/17 06:37 Dose: 25 mg - Objective Vital Signs: Vital Signs Temperature 97.4 F L 03/23/17 02:00 Pulse Rate 91 H 03/23/17 06:04 Respiratory Rate 24 03/23/17 06:04 Blood Pressure 122/60 03/23/17 06:04 O2 Sat by Pulse Oximetry (%) 97 03/22/17 20:26 Constitutional: Yes: Calm Eyes: Yes: Conjunctiva Clear Cardiovascular: Yes: Pulse Irregular Respiratory: Yes: Rhonchi, Other (no active wheezing.) Gastrointestinal: Yes: Soft, Abdomen, Obese Edema: Yes Edema: LLE: 1+, RLE: 1+ Labs: CBC, BMP 03/23/17 05:05 03/23/17 05:05 INR, PTT INR 0.99 (0.82-1.09) 03/21/17 20:45 Microbiology 03/21/17 20:45 Blood - Peripheral Venous Blood Culture - Preliminary NO GROWTH OBTAINED AFTER 24 HOURS, INCUBATION TO CONTINUE FOR 4 DAYS. 03/21/17 20:45 Blood - Peripheral Venous Blood Culture - Preliminary NO GROWTH OBTAINED AFTER 24 HOURS, INCUBATION TO CONTINUE FOR 4 DAYS. Laboratory Tests 03/23/17 03/23/17 03/23/17 05:05 05:05 08:09 WBC 7.4 D Hgb 12.2 D Plt Count 199 ABG pH 7.62 H* D ABG pCO2 at Pt Temp 30.9 L D ABG pO2 at Pt Temp 62.0 L Sodium 138 Potassium 4.2 BUN 32 H Creatinine 1.6 H - ....Imaging EKG: Image Reviewed Problem List - Problems (1) Bronchiectasis with (acute) exacerbation Code(s): J47.1 - BRONCHIECTASIS WITH (ACUTE) EXACERBATION (2) Pneumonia Code(s): J18.9 - PNEUMONIA, UNSPECIFIED ORGANISM Qualifiers: Laterality: unspecified laterality (3) Pulmonary hypertension Code(s): I27.20 - PULMONARY HYPERTENSION, UNSPECIFIED (4) Acute respiratory failure with hypercapnia Code(s): J96.02 - ACUTE RESPIRATORY FAILURE WITH HYPERCAPNIA (5) Acute respiratory failure with hypoxia Code(s): J96.01 - ACUTE RESPIRATORY FAILURE WITH HYPOXIA (6) New onset a-fib Code(s): I48.91 - UNSPECIFIED ATRIAL FIBRILLATION (7) CAD (coronary artery disease) Code(s): I25.10 - ATHSCL HEART DISEASE OF [place] CORONARY ARTERY W/O ANG PCTRS Qualifiers: Coronary Disease-Associated Artery/Lesion type: bypass graft, autologous artery Associated angina: without angina Qualified Code(s): I25.810 - Atherosclerosis of coronary artery bypass graft(s) without angina pectoris (8) ASHD (arteriosclerotic heart disease) Code(s): I25.10 - ATHSCL HEART DISEASE OF [place] CORONARY ARTERY W/O ANG PCTRS (9) Acute kidney injury Code(s): N17.9 - ACUTE KIDNEY FAILURE, UNSPECIFIED Assessment/Plan IMP: 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 New onset AF: likely triggered by acutely worsened pulmonary status/possible PNA and mild volume overload. -Continue Eliquis adjusted for GFR, age - Cardizem 30mg PO q6h with hold parameters for rate control, can switch to CD prior to discharge -Repeat Echo pending report 2. Acute on chronic combined systolic and diastolic CHF: -Continue IV Lasix. Creatinine improving slightly with diuresis. -Tele monitoring -Daily deights and close monitoring of renal fxn -CPAP as needed 3. Bronchiectasis/hypoxia/fever: -Abx/CPAP, further w/u as per PMD
--- NOTE | 2017-03-23 09:41 | EKG ---
Test Reason : Blood Pressure : / mmHG Vent. Rate : 117 BPM Atrial Rate : 127 BPM P-R Int : 000 ms QRS Dur : 120 ms QT Int : 302 ms P-R-T Axes : 000 -25 102 degrees QTc Int : 421 ms ATRIAL FIBRILLATION WITH RAPID VENTRICULAR RESPONSE WITH PREMATURE VENTRICULAR OR ABERRANTLY CONDUCTED COMPLEXES NON-SPECIFIC INTRA-VENTRICULAR CONDUCTION DELAY NONSPECIFIC ST AND T WAVE ABNORMALITY ABNORMAL ECG Confirmed by MD Choi Edward ([id number]) on 03/23/2017 9:40:41 AM Referred By: Confirmed By:Zia Choi MD
[2017-03-23] MEDS: APIXABAN 2.5 MG TABLET PO SCH ×2 (11:25→21:57)
[2017-03-23] MEDS: FUROSEMIDE 40 MG/4 ML INJECTABLE VIAL IVPUSH SCH (11:25)
[2017-03-23] MEDS: DOCUSATE SODIUM 100 MG CAPSULE (FP) PO SCH (11:25)
[2017-03-23] MEDS: ASPIRIN 81 MG CHEWABLE TABLETS PO SCH (11:26)
--- NOTE | 2017-03-23 11:34 | PN ---
Progress Note, Physician History of Present Illness: Awake but confused on bipap mask Breathing is improved since yesterday; appears more comfortable Temps down Afebrile WBC WNL BC no growth - Current Medication List Current Medications: Active Medications Acetaminophen (Tylenol -) 325 mg PO DAILY PRN Albuterol/Ipratropium (Duoneb -) 1 amp NEB QIDR [facility] Last Admin: 03/23/17 06:15 Dose: 1 amp Apixaban (Eliquis -) 2.5 mg PO BID [facility] Last Admin: 03/23/17 11:25 Dose: 2.5 mg Aspirin (Asa -) 81 mg PO DAILY [facility] Last Admin: 03/23/17 11:26 Dose: 81 mg Atorvastatin Calcium (Lipitor -) 10 mg PO [facility] Last Admin: 03/22/17 22:24 Dose: Not Given Diltiazem HCl (Cardizem -) 30 mg PO Q6HPO [facility] Last Admin: 03/23/17 11:25 Dose: 30 mg Docusate Sodium (Colace -) 100 mg PO DAILY [facility] Last Admin: 03/23/17 11:25 Dose: 100 mg Furosemide (Lasix Injection -) 40 mg IVPUSH DAILY [facility] Last Admin: 03/23/17 11:25 Dose: 40 mg Guaifenesin (Robitussin -) 5 ml PO QID [facility] Last Admin: 03/22/17 22:25 Dose: Not Given Piperacillin Sod/Tazobactam (Sod 3.375 gm/ Dextrose) 100 mls @ 200 mls/hr IVPB Q8H-IV [facility] Last Admin: 03/23/17 11:26 Dose: 200 mls/hr Insulin Aspart (Novolog Vial Sliding Scale -) 1 vial SQ [facility] PRN Reason: Protocol Last Admin: 03/23/17 07:12 Dose: 2 units Insulin Detemir (Levemir Vial) 30 units SQ [facility] Last Admin: 03/22/17 22:24 Dose: Not Given Methylprednisolone Sodium Succinate (Solu-Medrol -) 40 mg IVPUSH Q8H-IV [facility] Last Admin: 03/23/17 11:25 Dose: 40 mg Polyethylene Glycol (Miralax (For Daily Use) -) 17 gm PO BID [facility] Last Admin: 03/22/17 22:24 Dose: Not Given Sitagliptin Phosphate (Januvia -) 25 mg PO DAILY@0700 [facility] Last Admin: 03/22/17 06:37 Dose: 25 mg - Objective Vital Signs: Vital Signs Temperature 97.4 F L 03/23/17 02:00 Pulse Rate 85 03/23/17 10:25 Respiratory Rate 24 03/23/17 06:04 Blood Pressure 122/60 03/23/17 06:04 O2 Sat by Pulse Oximetry (%) 100 03/23/17 10:25 Constitutional: Yes: No Distress, Obese Cardiovascular: Yes: S1, S2. No: Regular Rate and Rhythm Respiratory: Yes: Diminished Gastrointestinal: Yes: Normal Bowel Sounds, Soft, Abdomen, Obese. No: Tenderness Edema: Yes Edema: LLE: 1+, RLE: 1+ Labs: CBC, BMP 03/23/17 05:05 03/23/17 05:05 INR, PTT INR 0.99 (0.82-1.09) 03/21/17 20:45 Assessment/Plan Acute exacerbation COPD/ Bronchiectasis HCAP New onset Afib Fever- improved Await c/s Continue empiric zosyn
[2017-03-23 12:09] LABS: ACANTHOCYTES 0; ANISOCYTOSIS 0; HELMET CELLS 0; HOWELL-JOLLY BODIES 0; MACROCYTOSIS 0; OVALOCYTE 0; SICKELED CELLS 0; TARGET CELLS 0; TEAR DROP CELLS 0; TOXIC GRANULATION 0
[2017-03-23] MEDS: POLYETHYLENE GLYCOL 3350 119 GM BTL PO SCH (12:32)
[2017-03-23] MEDS: guaiFENesin 200 MG/10 ML 10 ML UNIT-DOSE CUPS PO SCH ×3 (12:32→17:46)
--- NOTE | 2017-03-23 12:59 | PN ---
Progress Note (short form) - Note Progress Note: PULMONARY/CCM Pt seen and examined in the ICU. Remains on BiPAP, more alert, awake today. No fevers recorded since admission. Last Vital Signs Temp Pulse Resp BP Pulse Ox 97.4 F L 85 24 122/60 100 03/23/17 02:00 03/23/17 10:25 03/23/17 06:04 03/23/17 06:04 03/23/17 12:11 Intake & Output 03/20/17 03/21/17 03/22/17 03/23/17 23:59 23:59 23:59 23:59 Intake Total 100 Balance 100 Weight 106.5 kg 107.048 kg Gen: anxious on BiPAP Heart: RRR Lung: distant breath sounds, no wheezes Abd: soft, nontender Ext: no edema CBC, BMP 03/23/17 05:05 03/23/17 05:05 ABG Results ABG pH 7.62 (7.35-7.45) H* D 03/23/17 08:09 ABG pCO2 at Pt Temp 30.9 mmHg (35-45) L D 03/23/17 08:09 ABG pO2 at Pt Temp 62.0 mmHg (68-100) L 03/23/17 08:09 ABG HCO3 32.3 meq/L (22-26) H 03/23/17 08:09 ABG O2 Sat (Measured) 97.0 % (90-98.9) 03/23/17 08:09 ABG O2 Content 16.7 % vol (15-22) 03/23/17 08:09 ABG Base Excess 10.5 meq/l (-2-2) H 03/23/17 08:09 Active Medications Acetaminophen (Tylenol -) 325 mg PO DAILY PRN Albuterol/Ipratropium (Duoneb -) 1 amp NEB QIDR [facility] Last Admin: 03/23/17 11:45 Dose: 1 amp Apixaban (Eliquis -) 2.5 mg PO BID [facility] Last Admin: 03/23/17 11:25 Dose: 2.5 mg Aspirin (Asa -) 81 mg PO DAILY [facility] Last Admin: 03/23/17 11:26 Dose: 81 mg Atorvastatin Calcium (Lipitor -) 10 mg PO HS [facility] Last Admin: 01/02/18 22:24 Dose: Not Given Diltiazem HCl (Cardizem -) 30 mg PO Q6HPO [facility] Last Admin: 03/23/17 11:25 Dose: 30 mg Docusate Sodium (Colace -) 100 mg PO DAILY [facility] Last Admin: 03/23/17 11:25 Dose: 100 mg Furosemide (Lasix Injection -) 40 mg IVPUSH DAILY [facility] Last Admin: 03/23/17 11:25 Dose: 40 mg Guaifenesin (Robitussin -) 5 ml PO QID [facility] Last Admin: 03/23/17 12:32 Dose: 5 ml Piperacillin Sod/Tazobactam (Sod 3.375 gm/ Dextrose) 100 mls @ 200 mls/hr IVPB Q8H-IV [facility] Last Admin: 03/23/17 11:26 Dose: 200 mls/hr Insulin Aspart (Novolog Vial Sliding Scale -) 1 vial SQ ACHS [facility] PRN Reason: Protocol Last Admin: 03/23/17 07:12 Dose: 2 units Insulin Detemir (Levemir Vial) 30 units SQ HS [facility] Last Admin: 03/22/17 22:24 Dose: Not Given Methylprednisolone Sodium Succinate (Solu-Medrol -) 40 mg IVPUSH Q8H-IV [facility] Last Admin: 03/23/17 11:25 Dose: 40 mg Polyethylene Glycol (Miralax (For Daily Use) -) 17 gm PO BID [facility] Last Admin: 03/23/17 12:32 Dose: 17 gm Sitagliptin Phosphate (Januvia -) 25 mg PO DAILY@0700 [facility] Last Admin: 03/22/17 06:37 Dose: 25 mg A/P Acute on Chronic Hypoxic and Hypercapneic Respiratory Failure New Onset Atrial Fibrillation r/o Pneumonia r/o Influenza Acute COPD/Bronchiectasis Exacerbation Acute on Chronic Systolic Heart Failure Asbestos Exposure CAD s/p CABG Pulmonary HTN DM CKD - continue antibiotics - flu swab - urinary antigens - short course of medrol, can decrease or d/c in AM pending clinical course - inhaled bronchodilators - can attempt ventimask - BiPAP at night and PRN during day - O2 to keep Spo2 >90% - monitor ABG - rate control - anticoagulation - continue lasix - monitor urine output, creatinine critical care time spent in reviewing chart, evaluating patient and formulating plan 35 min Problem List - Problems (1) Acute respiratory failure with hypercapnia Code(s): Andrew96.02 - ACUTE RESPIRATORY FAILURE WITH HYPERCAPNIA (2) Acute respiratory failure with hypoxia Code(s): J96.01 - ACUTE RESPIRATORY FAILURE WITH HYPOXIA (3) COPD with acute exacerbation Code(s): J44.1 - CHRONIC OBSTRUCTIVE PULMONARY DISEASE W (ACUTE) EXACERBATION (4) Bronchiectasis with (acute) exacerbation Code(s): J47.1 - BRONCHIECTASIS WITH (ACUTE) EXACERBATION (5) CAD (coronary artery disease) Code(s): I25.10 - ATHSCL HEART DISEASE OF [place] CORONARY ARTERY W/O ANG PCTRS Qualifiers: Coronary Disease-Associated Artery/Lesion type: bypass graft, autologous artery Associated angina: without angina Qualified Code(s): I25.810 - Atherosclerosis of coronary artery bypass graft(s) without angina pectoris (6) Pulmonary hypertension Code(s): I27.20 - PULMONARY HYPERTENSION, UNSPECIFIED (7) Acute on chronic systolic (congestive) heart failure Code(s): I50.23 - ACUTE ON CHRONIC SYSTOLIC (CONGESTIVE) HEART FAILURE
[2017-03-23] MEDS: INSULIN DETEMIR 100 UNITS/ML MDV SQ SCH (22:55)
[2017-03-24] MEDS: POLYETHYLENE GLYCOL 3350 119 GM BTL PO SCH ×3 (00:07→22:38)
[2017-03-24] MEDS: ATORVASTATIN CA 10 MG TABLET (FP) PO SCH ×2 (00:08→22:49)
[2017-03-24] MEDS: dilTIAZem HCL 30 MG TABLET (FP) PO SCH ×2 (00:08→06:37)
[2017-03-24] MEDS: guaiFENesin 200 MG/10 ML 10 ML UNIT-DOSE CUPS PO SCH ×5 (00:20→22:49)
[2017-03-24] MEDS: ALBUTEROL SO4 2.5/IPRATROPIUM 0.5 INH SOL 3 ML VIAL.NEB. NEB SCH ×3 (06:13→17:32)
[2017-03-24 06:28] LABS: BASO % 0.2 % (0-2.0); HEMATOCRIT 39.3 % (35.4-49); HEMOGLOBIN 12.8 GM/dL (11.7-16.9); LYMPH % 3.9 % (8-40); MCH 30.6 pg (25.7-33.7); MCHC 32.7 g/dl (32.0-35.9); MEAN CELL VOLUME 93.7 fl (80-96); MEAN PLT VOLUME 9.1 fl (7.5-11.1); MONO % 3.6 % (3.8-10.2); NEUT % 92.3 % (42.8-82.8); PLATELET COUNT 240 K/MM3 (134-434); RBC 4.19 M/mm3 (4.00-5.60); RDW 14.7 % (11.9-15.9); WHITE BLOOD COUNT 8.4 K/mm3 (4.0-10.0)
[2017-03-24] MEDS: INSULIN SLIDING SCALE (NOVOLOG) 1 VIAL SQ SCH ×4 (06:37→22:40)
[2017-03-24 06:41] LABS: ALBUMIN 3.4 g/dl (3.4-5.0); ANION GAP 9 (8-16); BLOOD UREA NITROGEN 52 mg/dL (7-18); CALCIUM 8.6 mg/dL (8.5-10.1); CHLORIDE 92 mmol/L (98-107); CO2 38 mmol/L (21-32); GLUCOSE,RANDOM 126 mg/dL (74-106); POTASSIUM 3.5 mmol/L (3.5-5.1); SODIUM 139 mmol/L (136-145)
[2017-03-24 06:46] LABS: ALK PHOS 58 U/L (45-117); BILIRUBIN,TOTAL 0.5 mg/dL (0.2-1.0); CREATININE 2.3 mg/dL (0.7-1.3); SGOT/AST 40 U/L (15-37); SGPT/ALT 41 U/L (12-78)
[2017-03-24] MEDS: sitaGLIPtin PHOSPHATE 25 MG TABLET (FP) PO SCH (07:24)
[2017-03-24] MEDS ORDERED: MAGNESIUM CITRATE 300 ML BOTTLE PO ONE (08:13)
[2017-03-24] MEDS ORDERED: MAGNESIUM HYDROX 2400MG/30ML ORAL SUSPENSION 30 ML CUP PO PRN (08:14)
[2017-03-24 08:19] LABS: ARTERIAL BLD GAS O2 SATURATION 86.4 % (90-98.9); ARTERIAL BLOOD GAS BASE EXCESS 10.6 meq/l (-2-2); ARTERIAL BLOOD GAS PCO2 52.8 mmHg (35-45); ARTERIAL BLOOD GAS PO2 50.1 mmHg (68-100); ARTERIAL BLOOD GAS pH 7.45 (7.35-7.45)
--- NOTE | 2017-03-24 08:21 | PN ---
Progress Note, Physician Chief Complaint: Awake, alert in ICU-sitting in a chair, O2SAT on 2L/min O2 91% History of Present Illness: Persistent 6.7cm left basilar atelectasis/consolidation. CABG ASHD. DM type on Levemir/Januvia.. CRI. 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 JUAN-at nights using CPAP. - Current Medication List Current Medications: Active Medications Acetaminophen (Tylenol -) 325 mg PO DAILY PRN Albuterol/Ipratropium (Duoneb -) 1 amp NEB QIDR [facility] Last Admin: 03/24/17 06:13 Dose: 1 amp Apixaban (Eliquis -) 2.5 mg PO BID [facility] Last Admin: 03/23/17 21:57 Dose: 2.5 mg Aspirin (Asa -) 81 mg PO DAILY [facility] Last Admin: 03/23/17 11:26 Dose: 81 mg Atorvastatin Calcium (Lipitor -) 10 mg PO HS [facility] Last Admin: 03/24/17 00:08 Dose: 10 mg Diltiazem HCl (Cardizem -) 30 mg PO Q6HPO [facility] Last Admin: 03/24/17 06:37 Dose: 30 mg Docusate Sodium (Colace -) 100 mg PO DAILY [facility] Last Admin: 03/23/17 11:25 Dose: 100 mg Furosemide (Lasix Injection -) 40 mg IVPUSH DAILY [facility] Last Admin: 03/23/17 11:25 Dose: 40 mg Guaifenesin (Robitussin -) 5 ml PO QID [facility] Last Admin: 03/24/17 00:20 Dose: 5 ml Piperacillin Sod/Tazobactam (Sod 3.375 gm/ Dextrose) 100 mls @ 200 mls/hr IVPB Q8H-IV [facility] Last Admin: 03/23/17 22:36 Dose: 200 mls/hr Insulin Aspart (Novolog Vial Sliding Scale -) 1 vial SQ [facility] PRN Reason: Protocol Last Admin: 03/24/17 06:37 Dose: Not Given Insulin Detemir (Levemir Vial) 30 units SQ [facility] Last Admin: 03/23/17 22:55 Dose: 30 units Magnesium Hydroxide (Milk Of Magnesia -) 30 ml PO DAILY PRN PRN Reason: CONSTIPATION Methylprednisolone Sodium Succinate (Solu-Medrol -) 40 mg IVPUSH Q8H-IV [facility] Last Admin: 03/23/17 22:00 Dose: 40 mg Polyethylene Glycol (Miralax (For Daily Use) -) 17 gm PO BID [facility] Last Admin: 03/24/17 00:07 Dose: 17 gm Sitagliptin Phosphate (Januvia -) 25 mg PO DAILY@0700 [facility] Last Admin: 03/24/17 07:24 Dose: 25 mg - Objective Vital Signs: Vital Signs Temperature 97.4 F L 03/24/17 05:21 Pulse Rate 97 H 03/24/17 05:21 Respiratory Rate 22 03/24/17 05:21 Blood Pressure 122/82 03/24/17 05:21 O2 Sat by Pulse Oximetry (%) 97 03/23/17 22:39 Constitutional: Yes: Anxious, Moderate Distress Eyes: Yes: Conjunctiva Clear, EOM Intact. No: Diplopia HENT: Yes: Atraumatic, Normocephalic. No: Drooling, Epistaxis Cardiovascular: Yes: Tachycardia, Pulse Irregular (a.fIB), Murmur, S1, S2. No: JVD Respiratory: Yes: Diminished (LLL), Dullness (lll), Rales (lll>rll) Gastrointestinal: Yes: Normal Bowel Sounds, Abdomen, Obese, Other (cONSTIPATION) . No: Ascites, Palpable Mass, Tenderness, Tenderness, Epigastrium, Tenderness, Rebound ...Rectal Exam: Yes: Deferred Genitourinary: No: Anuria, Bladder Distention Breast(s): Yes: WNL Musculoskeletal: No: Joint Stiffness, Joint Swelling Extremities: No: Calf Tenderness, Cold, Cyanosis Edema: Yes Edema: LLE: 1+, RLE: 1+ Integumentary: Yes: WNL Neurological: Yes: Alert, Oriented, Other ([place]). No: Aphasia Psychiatric: Yes: Alert, Oriented. No: Agitated, Suicidal Ideation Labs: CBC, BMP 03/24/17 05:10 03/24/17 05:10 INR, PTT INR 0.99 (0.82-1.09) 03/21/17 20:45 Laboratory Results - last 24 hr 03/22/17 03/23/17 03/23/17 05:57 05:05 05:05 WBC RBC Hgb Hct MCV MCH MCHC RDW Plt Count MPV Neutrophils % Neutrophils % (Manual) 90.9 H* Band Neutrophils % 1.0 Lymphocytes % Lymphocytes % (Manual) 7.1 L Monocytes % Monocytes % (Manual) 1 L Eosinophils % Eosinophils % (Manual) 0.0 Basophils % Basophils % (Manual) 0.0 Myelocytes % (Man) 0 Metamyelocytes 0 Hypochromia 0 Toxic Granulation 0 Dohle Bodies 0 Polychromasia 0 Poikilocytosis 0 Basophilic Stippling 0 Anisocytosis 0 Microcytosis 0 Macrocytosis 0 Spherocytes 0 Sickle Cells 0 Target Cells 0 Tear Drop Cells 0 Ovalocytes 0 Stomatocytes 0 Helmet Cells 0 [place] Bodies 0 [place] Rings 0 [place] Cells 0 Acanthocytes (Spur) 0 Fragmented RBCs 0 Schistocytes 0 Puncture Site ABG pH ABG pCO2 at Pt Temp ABG pO2 at Pt Temp ABG HCO3 ABG O2 Sat (Measured) ABG O2 Content ABG Base Excess Esteban Test O2 Delivery Device Oxygen Flow Rate Vent Mode Vent Rate Mechanical Rate PEEP Pressure Support Vent Sodium 138 Potassium 4.2 Chloride 94 L Carbon Dioxide 40 H Anion Gap 4 L BUN 32 H Creatinine 1.6 H Creat Clearance w eGFR 41.29 POC Glucometer 161.87702 Random Glucose 188 H D Calcium 7.7 L Phosphorus 3.3 D Magnesium 2.0 Total Bilirubin 0.5 D AST 18 D ALT 39 D Alkaline Phosphatase 61 D Creatine Kinase Creatine Kinase Index CK-MB (CK-2) Troponin I Total Protein 6.2 L Albumin 3.0 L 03/23/17 03/24/17 03/24/17 08:09 05:10 05:10 WBC 8.4 RBC 4.19 Hgb 12.8 Hct 39.3 MCV 93.7 MCH 30.6 MCHC 32.7 RDW 14.7 Plt Count 240 D MPV 9.1 Neutrophils % 92.3 H Neutrophils % (Manual) Band Neutrophils % Lymphocytes % 3.9 L D Lymphocytes % (Manual) Monocytes % 3.6 L Monocytes % (Manual) Eosinophils % 0.0 D Eosinophils % (Manual) Basophils % 0.2 Basophils % (Manual) Myelocytes % (Man) Metamyelocytes Hypochromia Toxic Granulation Dohle Bodies Polychromasia Poikilocytosis Basophilic Stippling Anisocytosis Microcytosis Macrocytosis Spherocytes Sickle Cells Target Cells Tear Drop Cells Ovalocytes Stomatocytes Helmet Cells [place] Bodies [place] Rings [place] Cells Acanthocytes (Spur) Fragmented RBCs Schistocytes Puncture Site Right radial ABG pH 7.62 H* D ABG pCO2 at Pt Temp 30.9 L D ABG pO2 at Pt Temp 62.0 L ABG HCO3 32.3 H ABG O2 Sat (Measured) 97.0 ABG O2 Content 16.7 ABG Base Excess 10.5 H Esteban Test Positive O2 Delivery Device Bipap Oxygen Flow Rate 50 Vent Mode Bipap Vent Rate 14 Mechanical Rate No PEEP 0.0 Pressure Support Vent 15/5 Sodium 139 Potassium 3.5 Chloride 92 L Carbon Dioxide 38 H Anion Gap 9 BUN 52 H D Creatinine 2.3 H D Creat Clearance w eGFR 27.16 POC Glucometer Random Glucose 126 H D Calcium 8.6 Phosphorus Magnesium Total Bilirubin 0.5 AST 40 H D ALT 41 Alkaline Phosphatase 58 Creatine Kinase Creatine Kinase Index CK-MB (CK-2) Troponin I Total Protein 7.0 Albumin 3.4 03/24/17 05:10 WBC RBC Hgb Hct MCV MCH MCHC RDW Plt Count MPV Neutrophils % Neutrophils % (Manual) Band Neutrophils % Lymphocytes % Lymphocytes % (Manual) Monocytes % Monocytes % (Manual) Eosinophils % Eosinophils % (Manual) Basophils % Basophils % (Manual) Myelocytes % (Man) Metamyelocytes Hypochromia Toxic Granulation Dohle Bodies Polychromasia Poikilocytosis Basophilic Stippling Anisocytosis Microcytosis Macrocytosis Spherocytes Sickle Cells Target Cells Tear Drop Cells Ovalocytes Stomatocytes Helmet Cells [place] Bodies [place] Rings [place] Cells Acanthocytes (Spur) Fragmented RBCs Schistocytes Puncture Site ABG pH ABG pCO2 at Pt Temp ABG pO2 at Pt Temp ABG HCO3 ABG O2 Sat (Measured) ABG O2 Content ABG Base Excess Esteban Test O2 Delivery Device Oxygen Flow Rate Vent Mode Vent Rate Mechanical Rate PEEP Pressure Support Vent Sodium Potassium Chloride Carbon Dioxide Anion Gap BUN Creatinine Creat Clearance w eGFR POC Glucometer Random Glucose Calcium Phosphorus Magnesium Total Bilirubin AST ALT Alkaline Phosphatase Creatine Kinase 403 H Creatine Kinase Index 1.0 CK-MB (CK-2) 4.105 H Troponin I 0.06 H D Total Protein Albumin Problem List - Problems (1) Bronchiectasis with (acute) exacerbation Assessment/Plan: IV Abx started, blood cx Code(s): J47.1 - BRONCHIECTASIS WITH (ACUTE) EXACERBATION (2) COPD (chronic obstructive pulmonary disease) with acute bronchitis Code(s): J44.0 - CHRONIC OBSTRUCTIVE PULMON DISEASE W ACUTE LOWER RESP INFCT; J20.9 - ACUTE BRONCHITIS, UNSPECIFIED (3) New onset a-fib Assessment/Plan: cONTINUE eLIQUIS., rate control-WILL SWITCH TO mETOPROLOL 50 MG tid Code(s): I48.91 - UNSPECIFIED ATRIAL FIBRILLATION (4) Pneumonia Assessment/Plan: Continue IV Abx, follow fever, wbc, cxr, pulm consult Code(s): J18.9 - PNEUMONIA, UNSPECIFIED ORGANISM Qualifiers: Laterality: unspecified laterality (5) Pulmonary hypertension Assessment/Plan: Probably combination of JUAN, class 2 and class 3 PAH BIPAP Continue IV lasix. Code(s): I27.20 - PULMONARY HYPERTENSION, UNSPECIFIED (6) Respiratory failure with hypercapnia Assessment/Plan: Continue BIPAP/ [id number] PULSE OX Code(s): J96.92 - RESPIRATORY FAILURE, UNSPECIFIED WITH HYPERCAPNIA Qualifiers: Chronicity: acute Qualified Code(s): J96.02 - Acute respiratory failure with hypercapnia (7) CHF exacerbation Assessment/Plan: Continue IV diuretics. Code(s): I50.9 - HEART FAILURE, UNSPECIFIED Qualifiers: Congestive heart failure type: combined Qualified Code(s): I50.43 - Acute on chronic combined systolic (congestive) and diastolic (congestive) heart failure (8) Pleural effusion Assessment/Plan: Increased effusion. CHF, pleural disease, localized effusion. Code(s): J90 - PLEURAL EFFUSION, NOT ELSEWHERE CLASSIFIED
[2017-03-24 08:23] LABS: ALLENS TEST POSITIVE
[2017-03-24] MEDS: methylPREDNISolone NA SUCC 40 MG/1 ML VIAL IVPUSH SCH (09:27)
[2017-03-24] MEDS: ASPIRIN 81 MG CHEWABLE TABLETS PO SCH (09:27)
[2017-03-24] MEDS: FUROSEMIDE 40 MG/4 ML INJECTABLE VIAL IVPUSH SCH (09:27)
[2017-03-24] MEDS: APIXABAN 2.5 MG TABLET PO SCH ×2 (09:27→22:32)
[2017-03-24] MEDS: DOCUSATE SODIUM 100 MG CAPSULE (FP) PO SCH (09:28)
[2017-03-24] MEDS ORDERED: PT OWN MED DRAWER 7, Y5N ONE ×3 (09:49→22:30)
[2017-03-24] MEDS: PIPERACILLIN/TAZOB 3.375 GM 3.375 GM in DEXTROSE 5%-WATER - 100 ML IVPB SCH ×2 (09:54→17:37)
--- NOTE | 2017-03-24 10:14 | PN ---
Progress Note, Physician Chief Complaint: alert and oriented TELE: rate controlled AF Creatinine bumped. - Current Medication List Current Medications: Active Medications Acetaminophen (Tylenol -) 325 mg PO DAILY PRN Albuterol/Ipratropium (Duoneb -) 1 amp NEB QIDR [facility] Last Admin: 03/24/17 06:13 Dose: 1 amp Apixaban (Eliquis -) 2.5 mg PO BID [facility] Last Admin: 03/24/17 09:27 Dose: 2.5 mg Aspirin (Asa -) 81 mg PO DAILY [facility] Last Admin: 03/24/17 09:27 Dose: 81 mg Atorvastatin Calcium (Lipitor -) 10 mg PO [facility] Last Admin: 03/24/17 00:08 Dose: 10 mg Docusate Sodium (Colace -) 100 mg PO DAILY [facility] Last Admin: 03/24/17 09:28 Dose: 100 mg Furosemide (Lasix Injection -) 40 mg IVPUSH DAILY [facility] Last Admin: 03/24/17 09:27 Dose: 40 mg Guaifenesin (Robitussin -) 5 ml PO QID [facility] Last Admin: 03/24/17 09:27 Dose: 5 ml Piperacillin Sod/Tazobactam (Sod 3.375 gm/ Dextrose) 100 mls @ 200 mls/hr IVPB Q8H-IV [facility] Last Admin: 03/24/17 09:54 Dose: 200 mls/hr Insulin Aspart (Novolog Vial Sliding Scale -) 1 vial SQ ACHS [facility] PRN Reason: Protocol Last Admin: 03/24/17 06:37 Dose: Not Given Insulin Detemir (Levemir Vial) 30 units SQ [facility] Last Admin: 03/23/17 22:55 Dose: 30 units Magnesium Hydroxide (Milk Of Magnesia -) 30 ml PO DAILY PRN PRN Reason: CONSTIPATION Methylprednisolone Sodium Succinate (Solu-Medrol -) 40 mg IVPUSH Q8H-IV [facility] Last Admin: 03/24/17 09:27 Dose: 40 mg Metoprolol Tartrate (Lopressor -) 50 mg PO TID [facility] Polyethylene Glycol (Miralax (For Daily Use) -) 17 gm PO BID [facility] Last Admin: 03/24/17 09:28 Dose: 17 gm Sitagliptin Phosphate (Januvia -) 25 mg PO DAILY@0700 [facility] Last Admin: 03/24/17 07:24 Dose: 25 mg - Objective Vital Signs: Vital Signs Temperature 98 F 03/24/17 10:00 Pulse Rate 112 H 03/24/17 10:00 Respiratory Rate 22 03/24/17 10:00 Blood Pressure 122/82 03/24/17 10:00 O2 Sat by Pulse Oximetry (%) 97 03/23/17 22:39 Constitutional: Yes: Calm Cardiovascular: Yes: Pulse Irregular Respiratory: Yes: Other (scattered rhonchi, no active wheezing) Gastrointestinal: Yes: Soft, Abdomen, Obese Edema: No Neurological: Yes: Alert, Oriented Labs: CBC, BMP 03/24/17 05:10 03/24/17 05:10 INR, PTT INR 0.99 (0.82-1.09) 03/21/17 20:45 Laboratory Tests 03/23/17 03/24/17 03/24/17 05:05 05:10 05:10 WBC 8.4 Hgb 12.8 Plt Count 240 D ABG pO2 at Pt Temp Sodium 139 Potassium 3.5 BUN 32 H 52 H D Creatinine 1.6 H 2.3 H D Creatine Kinase Troponin I 03/24/17 03/24/17 05:10 07:40 WBC Hgb Plt Count ABG pO2 at Pt Temp 50.1 L Sodium Potassium BUN Creatinine Creatine Kinase 403 H Troponin I 0.06 H D - ....Imaging EKG: Image Reviewed Problem List - Problems (1) Bronchiectasis with (acute) exacerbation Code(s): J47.1 - BRONCHIECTASIS WITH (ACUTE) EXACERBATION (2) Pneumonia Code(s): J18.9 - PNEUMONIA, UNSPECIFIED ORGANISM Qualifiers: Laterality: unspecified laterality (3) Pulmonary hypertension Code(s): I27.20 - PULMONARY HYPERTENSION, UNSPECIFIED (4) Acute respiratory failure with hypercapnia Code(s): J96.02 - ACUTE RESPIRATORY FAILURE WITH HYPERCAPNIA (5) Acute respiratory failure with hypoxia Code(s): J96.01 - ACUTE RESPIRATORY FAILURE WITH HYPOXIA (6) New onset a-fib Code(s): I48.91 - UNSPECIFIED ATRIAL FIBRILLATION (7) CAD (coronary artery disease) Code(s): I25.10 - ATHSCL HEART DISEASE OF [place] CORONARY ARTERY W/O ANG PCTRS Qualifiers: Coronary Disease-Associated Artery/Lesion type: bypass graft, autologous artery Associated angina: without angina Qualified Code(s): I25.810 - Atherosclerosis of coronary artery bypass graft(s) without angina pectoris (8) ASHD (arteriosclerotic heart disease) Code(s): I25.10 - ATHSCL HEART DISEASE OF [place] CORONARY ARTERY W/O ANG PCTRS (9) Acute kidney injury Code(s): N17.9 - ACUTE KIDNEY FAILURE, UNSPECIFIED Assessment/Plan IMP: 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 New onset AF: likely triggered by acutely worsened pulmonary status/possible PNA and mild volume overload. -Continue Eliquis adjusted for GFR, age - Initially on Cardizem to avoid bronchospasm, then switched to TID metoprolol for smoother rate control -Thus far tolerated well without bronchospasm 2. Acute on chronic combined systolic and diastolic CHF: -Due to bump in creatinine, will d/c IV Lasix. -Tele monitoring -Daily deights and close monitoring of renal fxn -CPAP as needed 3. Bronchiectasis/hypoxia/fever: -Abx/CPAP, further w/u as per PMD
--- NOTE | 2017-03-24 10:50 | PN ---
Progress Note, Physician History of Present Illness: OOB in chair Awake, alert Breathing non-labored on nasal cannula O2 Temps down Afebrile WBC WNL BC no growth - Current Medication List Current Medications: Active Medications Acetaminophen (Tylenol -) 325 mg PO DAILY PRN Albuterol/Ipratropium (Duoneb -) 1 amp NEB QIDR [facility] Last Admin: 03/24/17 06:13 Dose: 1 amp Apixaban (Eliquis -) 2.5 mg PO BID [facility] Last Admin: 03/24/17 09:27 Dose: 2.5 mg Aspirin (Asa -) 81 mg PO DAILY [facility] Last Admin: 03/24/17 09:27 Dose: 81 mg Atorvastatin Calcium (Lipitor -) 10 mg PO [facility] Last Admin: 03/24/17 00:08 Dose: 10 mg Docusate Sodium (Colace -) 100 mg PO DAILY [facility] Last Admin: 03/24/17 09:28 Dose: 100 mg Guaifenesin (Robitussin -) 5 ml PO QID [facility] Last Admin: 03/24/17 09:27 Dose: 5 ml Piperacillin Sod/Tazobactam (Sod 3.375 gm/ Dextrose) 100 mls @ 200 mls/hr IVPB Q8H-IV [facility] Last Admin: 03/24/17 09:54 Dose: 200 mls/hr Insulin Aspart (Novolog Vial Sliding Scale -) 1 vial SQ [facility] PRN Reason: Protocol Last Admin: 03/24/17 06:37 Dose: Not Given Insulin Detemir (Levemir Vial) 30 units SQ [facility] Last Admin: 03/23/17 22:55 Dose: 30 units Magnesium Hydroxide (Milk Of Magnesia -) 30 ml PO DAILY PRN PRN Reason: CONSTIPATION Methylprednisolone Sodium Succinate (Solu-Medrol -) 40 mg IVPUSH Q8H-IV [facility] Last Admin: 03/24/17 09:27 Dose: 40 mg Metoprolol Tartrate (Lopressor -) 50 mg PO TID [facility] Polyethylene Glycol (Miralax (For Daily Use) -) 17 gm PO BID [facility] Last Admin: 03/24/17 09:28 Dose: 17 gm Sitagliptin Phosphate (Januvia -) 25 mg PO DAILY@0700 [facility] Last Admin: 03/24/17 07:24 Dose: 25 mg - Objective Vital Signs: Vital Signs Temperature 98 F 03/24/17 10:00 Pulse Rate 112 H 03/24/17 10:00 Respiratory Rate 22 03/24/17 10:00 Blood Pressure 122/82 03/24/17 10:00 O2 Sat by Pulse Oximetry (%) 90 L 03/24/17 09:00 Constitutional: Yes: No Distress, Obese Eyes: Yes: Conjunctiva Clear Cardiovascular: Yes: Regular Rate and Rhythm, S1, S2 Respiratory: Yes: Other (few crepitations R base; decreased BS L base) Gastrointestinal: Yes: Normal Bowel Sounds, Soft, Abdomen, Obese. No: Tenderness Edema: Yes Edema: LLE: 2+, RLE: 2+ Labs: CBC, BMP 03/24/17 05:10 03/24/17 05:10 INR, PTT INR 0.99 (0.82-1.09) 03/21/17 20:45 Assessment/Plan Acute exacerbation COPD/ Bronchiectasis improved HCAP New onset Afib Continue empiric zosyn Bronchodilators, steroids
--- NOTE | 2017-03-24 12:53 | PN ---
Progress Note (short form) - Note Progress Note: PULMONARY Saturating high 80s on 3L nasal cannula. No fevers recorded since admission. + nonproductive cough. Last Vital Signs Temp Pulse Resp BP Pulse Ox 98 F 112 H 22 122/82 94 L 03/24/17 10:00 03/24/17 10:00 03/24/17 10:00 03/24/17 10:00 03/24/17 11:41 Intake & Output 03/21/17 03/22/17 03/23/17 03/24/17 23:59 23:59 23:59 23:59 Intake Total 100 Output Total 400 400 Balance 100 -400 -400 Weight 106.5 kg 107.048 kg 108.465 kg Gen: mildly tachypneic at rest Heart: RRR Lung: distant breath sounds, no wheezes Abd: soft, nontender Ext: no edema CBC, BMP 03/24/17 05:10 03/24/17 05:10 ABG Results ABG pH 7.45 (7.35-7.45) D 03/24/17 07:40 ABG pCO2 at Pt Temp 52.8 mmHg (35-45) H D 03/24/17 07:40 ABG pO2 at Pt Temp 50.1 mmHg (68-100) L 03/24/17 07:40 ABG HCO3 36.3 meq/L (22-26) H 03/24/17 07:40 ABG O2 Sat (Measured) 86.4 % (90-98.9) L 03/24/17 07:40 ABG O2 Content 16.2 % vol (15-22) 03/24/17 07:40 ABG Base Excess 10.6 meq/l (-2-2) H 03/24/17 07:40 Active Medications Acetaminophen (Tylenol -) 325 mg PO DAILY PRN Albuterol/Ipratropium (Duoneb -) 1 amp NEB QIDR [facility] Last Admin: 03/24/17 11:54 Dose: 1 amp Apixaban (Eliquis -) 2.5 mg PO BID [facility] Last Admin: 03/24/17 09:27 Dose: 2.5 mg Aspirin (Asa -) 81 mg PO DAILY [facility] Last Admin: 03/24/17 09:27 Dose: 81 mg Atorvastatin Calcium (Lipitor -) 10 mg PO HS [facility] Last Admin: 03/24/17 00:08 Dose: 10 mg Docusate Sodium (Colace -) 100 mg PO DAILY [facility] Last Admin: 03/24/17 09:28 Dose: 100 mg Guaifenesin (Robitussin -) 5 ml PO QID [facility] Last Admin: 03/24/17 09:27 Dose: 5 ml Piperacillin Sod/Tazobactam (Sod 3.375 gm/ Dextrose) 100 mls @ 200 mls/hr IVPB Q8H-IV [facility] Last Admin: 03/24/17 09:54 Dose: 200 mls/hr Insulin Aspart (Novolog Vial Sliding Scale -) 1 vial SQ ACHS [facility] PRN Reason: Protocol Last Admin: 03/24/17 11:47 Dose: 2 units Insulin Detemir (Levemir Vial) 30 units SQ HS [facility] Last Admin: 03/23/17 22:55 Dose: 30 units Magnesium Hydroxide (Milk Of Magnesia -) 30 ml PO DAILY PRN PRN Reason: CONSTIPATION Methylprednisolone Sodium Succinate (Solu-Medrol -) 40 mg IVPUSH Q8H-IV [facility] Last Admin: 03/24/17 09:27 Dose: 40 mg Metoprolol Tartrate (Lopressor -) 50 mg PO TID [facility] Polyethylene Glycol (Miralax (For Daily Use) -) 17 gm PO BID [facility] Last Admin: 03/24/17 09:28 Dose: 17 gm Sitagliptin Phosphate (Januvia -) 25 mg PO DAILY@0700 [facility] Last Admin: 03/24/17 07:24 Dose: 25 mg A/P Acute on Chronic Hypoxic and Hypercapneic Respiratory Failure New Onset Atrial Fibrillation r/o Pneumonia r/o Influenza Acute COPD/Bronchiectasis Exacerbation Acute on Chronic Systolic Heart Failure Asbestos Exposure CAD s/p CABG Pulmonary HTN DM CKD - continue antibiotics - will decrease medrol to daily dosing - inhaled bronchodilators - BiPAP at night and PRN during day - O2 to keep Spo2 >90% - rate control - continue anticoagulation - hold lasix - monitor urine output, creatinine Problem List - Problems (1) Acute respiratory failure with hypercapnia Code(s): J96.02 - ACUTE RESPIRATORY FAILURE WITH HYPERCAPNIA (2) Acute respiratory failure with hypoxia Code(s): J96.01 - ACUTE RESPIRATORY FAILURE WITH HYPOXIA (3) COPD with acute exacerbation Code(s): J44.1 - CHRONIC OBSTRUCTIVE PULMONARY DISEASE W (ACUTE) EXACERBATION (4) Bronchiectasis with (acute) exacerbation Code(s): J47.1 - BRONCHIECTASIS WITH (ACUTE) EXACERBATION (5) CAD (coronary artery disease) Code(s): I25.10 - ATHSCL HEART DISEASE OF [place] CORONARY ARTERY W/O ANG PCTRS Qualifiers: Coronary Disease-Associated Artery/Lesion type: bypass graft, autologous artery Associated angina: without angina Qualified Code(s): I25.810 - Atherosclerosis of coronary artery bypass graft(s) without angina pectoris (6) Pulmonary hypertension Code(s): I27.20 - PULMONARY HYPERTENSION, UNSPECIFIED (7) Acute on chronic systolic (congestive) heart failure Code(s): I50.23 - ACUTE ON CHRONIC SYSTOLIC (CONGESTIVE) HEART FAILURE
[2017-03-24] MEDS: METOPROLOL TARTRATE 50 MG TABLET (FP) PO SCH ×2 (13:51→22:32)
[2017-03-24] MEDS: INSULIN DETEMIR 100 UNITS/ML MDV SQ SCH (22:37)
[2017-03-25] MEDS: PIPERACILLIN/TAZOB 3.375 GM 3.375 GM in DEXTROSE 5%-WATER - 100 ML IVPB SCH ×3 (01:52→18:07)
[2017-03-25] MEDS ORDERED: DEXTROSE 50%-WATER - 25 GM/50 ML VIAL IVPUSH ONE (05:55)
[2017-03-25] MEDS ORDERED: DEXTROSE 50%-WATER 25 GM/50 ML DISP.SYRIN ONE (05:56)
[2017-03-25] MEDS: METOPROLOL TARTRATE 50 MG TABLET (FP) PO SCH ×3 (06:01→22:27)
[2017-03-25] MEDS: INSULIN SLIDING SCALE (NOVOLOG) 1 VIAL SQ SCH ×4 (06:30→22:29)
[2017-03-25 07:01] LABS: BASO % 0.1 % (0-2.0); EOS % 0.1 % (0-4.5); HEMATOCRIT 42.1 % (35.4-49); HEMOGLOBIN 13.6 GM/dL (11.7-16.9); LYMPH % 6.8 % (8-40); MCH 30.6 pg (25.7-33.7); MCHC 32.4 g/dl (32.0-35.9); MEAN CELL VOLUME 94.3 fl (80-96); MEAN PLT VOLUME 9.2 fl (7.5-11.1); MONO % 14.2 % (3.8-10.2); NEUT % 78.8 % (42.8-82.8); PLATELET COUNT 322 K/MM3 (134-434); RBC 4.46 M/mm3 (4.00-5.60); RDW 14.8 % (11.9-15.9); WHITE BLOOD COUNT 13.6 K/mm3 (4.0-10.0)
[2017-03-25 07:05] LABS: CHLORIDE 92 mmol/L (98-107); POTASSIUM 3.4 mmol/L (3.5-5.1); SODIUM 141 mmol/L (136-145)
[2017-03-25 07:18] LABS: ANION GAP 10 (8-16); BLOOD UREA NITROGEN 61 mg/dL (7-18); CO2 39 mmol/L (21-32); CREATININE 2.2 mg/dL (0.7-1.3); MAGNESIUM 3.3 mg/dL (1.8-2.4); PHOSPHOROUS 4.3 mg/dL (2.5-4.9)
[2017-03-25] MEDS: sitaGLIPtin PHOSPHATE 25 MG TABLET (FP) PO SCH (07:23)
[2017-03-25 07:34] LABS: GLUCOSE,RANDOM 31 mg/dL (74-106)
--- NOTE | 2017-03-25 08:40 | PN ---
Progress Note, Physician Chief Complaint: Walk in the room in telemetry, NAD, tolerating NC well. History of Present Illness: Persistent 6.7cm left basilar atelectasis/consolidation. CABG ASHD. DM type on Levemir/Januvia.. CRI. 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 JUAN-at nights using CPAP. - Current Medication List Current Medications: Active Medications Acetaminophen (Tylenol -) 325 mg PO DAILY PRN Last Admin: 03/24/17 23:33 Dose: 325 mg Albuterol/Ipratropium (Duoneb -) 1 amp NEB QIDR [facility] Last Admin: 03/24/17 17:32 Dose: 1 amp Apixaban (Eliquis -) 2.5 mg PO BID [facility] Last Admin: 03/24/17 22:32 Dose: 2.5 mg Aspirin (Asa -) 81 mg PO DAILY [facility] Last Admin: 03/24/17 09:27 Dose: 81 mg Atorvastatin Calcium (Lipitor -) 10 mg PO HS [facility] Last Admin: 03/24/17 22:49 Dose: 10 mg Docusate Sodium (Colace -) 100 mg PO DAILY [facility] Last Admin: 03/24/17 09:28 Dose: 100 mg Guaifenesin (Robitussin -) 5 ml PO QID [facility] Last Admin: 03/24/17 22:49 Dose: 5 ml Piperacillin Sod/Tazobactam (Sod 3.375 gm/ Dextrose) 100 mls @ 200 mls/hr IVPB Q8H-IV [facility] Last Admin: 03/25/17 01:52 Dose: 200 mls/hr Insulin Aspart (Novolog Vial Sliding Scale -) 1 vial SQ ACHS [facility] PRN Reason: Protocol Last Admin: 03/25/17 06:30 Dose: Not Given Insulin Detemir (Levemir Vial) 15 units SQ [facility] Magnesium Hydroxide (Milk Of Magnesia -) 30 ml PO DAILY PRN PRN Reason: CONSTIPATION Metoprolol Tartrate (Lopressor -) 50 mg PO TID [facility] Last Admin: 03/25/17 06:01 Dose: 50 mg Polyethylene Glycol (Miralax (For Daily Use) -) 17 gm PO BID [facility] Last Admin: 03/24/17 22:38 Dose: 17 gm Sitagliptin Phosphate (Januvia -) 25 mg PO DAILY@0700 [facility] Last Admin: 03/25/17 07:23 Dose: Not Given - Objective Vital Signs: Vital Signs Temperature 97.8 F 03/25/17 05:52 Pulse Rate 102 H 03/25/17 05:52 Respiratory Rate 24 03/25/17 05:52 Blood Pressure 146/97 03/25/17 05:52 O2 Sat by Pulse Oximetry (%) 92 L 03/25/17 06:28 Constitutional: Yes: No Distress, Anxious Eyes: Yes: Conjunctiva Clear, EOM Intact HENT: Yes: Atraumatic, Normocephalic. No: Drooling Neck: Yes: Supple, Trachea Midline Cardiovascular: Yes: Pulse Irregular, Murmur, S1, S2. No: Regular Rate and Rhythm, Bradycardia, Tachycardia, JVD Respiratory: Yes: Diminished (LLL), On Nasal O2. No: Rales, Rhonchi, Wheezes Gastrointestinal: Yes: Normal Bowel Sounds, Soft, Abdomen, Obese ...Rectal Exam: Yes: Deferred Genitourinary: No: Anuria, Bladder Distention Breast(s): Yes: WNL Musculoskeletal: Yes: WNL Extremities: No: Amputation, Calf Tenderness, Cold, Cyanosis Edema: Yes Edema: LLE: Trace, RLE: Trace Integumentary: Yes: WNL Neurological: Yes: Alert, Oriented. No: Aphasia, Dysarthria ...Motor Strength: WNL Psychiatric: Yes: WNL Labs: CBC, BMP 03/25/17 06:10 03/25/17 06:10 INR, PTT INR 0.99 (0.82-1.09) 03/21/17 20:45 Problem List - Problems (1) Bronchiectasis with (acute) exacerbation Assessment/Plan: IV Abx started, blood cx Code(s): J47.1 - BRONCHIECTASIS WITH (ACUTE) EXACERBATION (2) COPD (chronic obstructive pulmonary disease) with acute bronchitis Assessment/Plan: Improved. Now 95% on 3 L/min O2 Continue inh, nebs, ABX Code(s): J44.0 - CHRONIC OBSTRUCTIVE PULMON DISEASE W ACUTE LOWER RESP INFCT; J20.9 - ACUTE BRONCHITIS, UNSPECIFIED (3) New onset a-fib Assessment/Plan: cONTINUE eLIQUIS., rate control- mETOPROLOL 50 MG tid Code(s): I48.91 - UNSPECIFIED ATRIAL FIBRILLATION (4) Pneumonia Assessment/Plan: Continue IV Abx, follow fever, wbc, cxr, pulm consult Code(s): J18.9 - PNEUMONIA, UNSPECIFIED ORGANISM Qualifiers: Laterality: unspecified laterality (5) Pulmonary hypertension Assessment/Plan: Probably combination of JUAN, class 2 and class 3 PAH BIPAP Continue IV lasix. Code(s): I27.20 - PULMONARY HYPERTENSION, UNSPECIFIED (6) Respiratory failure with hypercapnia Assessment/Plan: Continue BIPAP/ [id number] PULSE OX Code(s): J96.92 - RESPIRATORY FAILURE, UNSPECIFIED WITH HYPERCAPNIA Qualifiers: Chronicity: acute Qualified Code(s): J96.02 - Acute respiratory failure with hypercapnia (7) CHF exacerbation Assessment/Plan: Continue IV diuretics. Code(s): I50.9 - HEART FAILURE, UNSPECIFIED Qualifiers: Congestive heart failure type: combined Qualified Code(s): I50.43 - Acute on chronic combined systolic (congestive) and diastolic (congestive) heart failure (8) Pleural effusion Assessment/Plan: Increased effusion. CHF, pleural disease, localized effusion. Code(s): J90 - PLEURAL EFFUSION, NOT ELSEWHERE CLASSIFIED
[2017-03-25] MEDS ORDERED: PT OWN MED DRAWER 7, Y5N ONE ×2 (08:41→17:22)
--- NOTE | 2017-03-25 08:42 | DS ---
Physical Examination Vital Signs: Vital Signs Temperature 97.8 F 03/25/17 05:52 Pulse Rate 102 H 03/25/17 05:52 Respiratory Rate 24 03/25/17 05:52 Blood Pressure 146/97 03/25/17 05:52 O2 Sat by Pulse Oximetry (%) 92 L 03/25/17 06:28 Constitutional: Yes: No Distress, Anxious Eyes: Yes: Conjunctiva Clear, EOM Intact HENT: Yes: Atraumatic, Normocephalic Neck: Yes: Supple, Trachea Midline. No: Decreased ROM, Lymphadenopathy Cardiovascular: Yes: Pulse Irregular, S1, S2. No: Bradycardia, Tachycardia Respiratory: Yes: Diminished, On Nasal O2, SOB, SOB on Exertion Gastrointestinal: Yes: Normal Bowel Sounds, Soft, Abdomen, Obese ...Rectal Exam: Yes: Deferred Renal/: No: Anuria, Bladder Distention Breast(s): Yes: WNL Musculoskeletal: Yes: WNL Extremities: No: Calf Tenderness, Cold, Cyanosis Edema: Yes Edema: LLE: Trace, RLE: Trace Integumentary: Yes: WNL Neurological: Yes: Alert, Oriented. No: Aphasia, Dysarthria ...Motor Strength: WNL Psychiatric: Yes: Alert, Oriented. No: Agitated, Suicidal Ideation Labs: CBC, BMP 03/25/17 06:10 03/25/17 06:10 Discharge Summary Reason For Visit: BRONCHIECTASIS W/ACUTE EXACERBATION Current Active Problems Acute on chronic systolic (congestive) heart failure (Acute) Bronchiectasis with (acute) exacerbation (Acute) CAD (coronary artery disease) (Acute) CHF exacerbation (Acute) COPD (chronic obstructive pulmonary disease) with acute bronchitis (Acute) New onset a-fib (Acute) Pleural effusion (Acute) Pneumonia (Acute) Pulmonary hypertension (Acute) Respiratory failure with hypercapnia (Acute) Condition: Guarded - Instructions Referrals: Sunil Moseley MD [Primary Care Provider] - - Home Medications Comprehensive Discharge Medication List: Ambulatory Orders Aspirin [ASA -] 81 mg PO DAILY 06/24/14 Pravastatin Sodium [Pravachol -] 40 mg PO HS 10/12/14 Insulin (Levemir) [Levemir Flexpen -] 30 units SQ HS #1 pen 10/14/14 Sitagliptin Phosphate [Januvia -] 25 mg PO DAILY@0700 #90 tab 10/14/14 Furosemide [Lasix -] 40 mg PO BID #30 tablet 03/01/16 Polyethylene Glycol 3350 [Miralax 119 gm Btl -] 17 gm PO BID bottle 06/24/16 Albuterol 2.5/Ipratropium 0.5 [Duoneb -] 1 amp NEB TIDR amp 03/07/17 Acetaminophen 325 mg PO PRN 03/21/17 Docusate Sodium [Colace] 100 mg PO DAILY 03/21/17 Guaifenesin 100 mg PO QID 03/21/17 Ipratropium 0.02% Nebulizer [Atrovent *Nebulizer*] 0.5 mg IH PRN 03/21/17
--- NOTE | 2017-03-25 09:22 | PN ---
Progress Note, Physician History of Present Illness: OOB in chair Reports ++cough yesterday productive of whitish sputum Awake, alert Breathing non-labored on nasal cannula O2 Temps down Afebrile WBC elevated today 13k BC no growth - Current Medication List Current Medications: Active Medications Acetaminophen (Tylenol -) 325 mg PO DAILY PRN Last Admin: 03/24/17 23:33 Dose: 325 mg Albuterol/Ipratropium (Duoneb -) 1 amp NEB QIDR [facility] Last Admin: 03/24/17 17:32 Dose: 1 amp Apixaban (Eliquis -) 2.5 mg PO BID [facility] Last Admin: 03/24/17 22:32 Dose: 2.5 mg Aspirin (Asa -) 81 mg PO DAILY [facility] Last Admin: 03/24/17 09:27 Dose: 81 mg Atorvastatin Calcium (Lipitor -) 10 mg PO [facility] Last Admin: 03/24/17 22:49 Dose: 10 mg Docusate Sodium (Colace -) 100 mg PO DAILY [facility] Last Admin: 03/24/17 09:28 Dose: 100 mg Guaifenesin (Robitussin -) 5 ml PO QID [facility] Last Admin: 03/24/17 22:49 Dose: 5 ml Piperacillin Sod/Tazobactam (Sod 3.375 gm/ Dextrose) 100 mls @ 200 mls/hr IVPB Q8H-IV [facility] Last Admin: 03/25/17 01:52 Dose: 200 mls/hr Insulin Aspart (Novolog Vial Sliding Scale -) 1 vial SQ [facility] PRN Reason: Protocol Last Admin: 03/25/17 06:30 Dose: Not Given Insulin Detemir (Levemir Vial) 15 units SQ [facility] Magnesium Hydroxide (Milk Of Magnesia -) 30 ml PO DAILY PRN PRN Reason: CONSTIPATION Metoprolol Tartrate (Lopressor -) 50 mg PO TID [facility] Last Admin: 03/25/17 06:01 Dose: 50 mg Polyethylene Glycol (Miralax (For Daily Use) -) 17 gm PO BID [facility] Last Admin: 03/24/17 22:38 Dose: 17 gm Potassium Chloride (K-Dur -) 40 meq PO ONCE ONE Stop: 03/25/17 09:31 Sitagliptin Phosphate (Januvia -) 25 mg PO DAILY@0700 [facility] Last Admin: 03/25/17 07:23 Dose: Not Given - Objective Vital Signs: Vital Signs Temperature 97.8 F 03/25/17 05:52 Pulse Rate 102 H 03/25/17 05:52 Respiratory Rate 24 03/25/17 05:52 Blood Pressure 146/97 03/25/17 05:52 O2 Sat by Pulse Oximetry (%) 92 L 03/25/17 06:28 Constitutional: Yes: Obese Eyes: Yes: Conjunctiva Clear Cardiovascular: Yes: S1, S2. No: Regular Rate and Rhythm Respiratory: Yes: Other (few crepitations at bases bilaterally) Gastrointestinal: Yes: Normal Bowel Sounds, Soft, Abdomen, Obese. No: Tenderness Edema: Yes Edema: LLE: 2+, RLE: 2+ Labs: CBC, BMP 03/25/17 06:10 03/25/17 06:10 INR, PTT INR 0.99 (0.82-1.09) 03/21/17 20:45 Assessment/Plan Acute exacerbation COPD/ Bronchiectasis improved HCAP New onset Afib Continue empiric zosyn, day #5 Switch to po next 24hr Bronchodilators, steroids
[2017-03-25] MEDS ORDERED: POTASSIUM CHLORIDE TABS 20 MEQ TABLET.ER (FP) PO ONE (09:30)
--- NOTE | 2017-03-25 09:52 | PN ---
Progress Note, Physician Chief Complaint: no complaints Alert TELE: Controlled AF , rare VPCs - Current Medication List Current Medications: Active Medications Acetaminophen (Tylenol -) 325 mg PO DAILY PRN Last Admin: 03/24/17 23:33 Dose: 325 mg Albuterol/Ipratropium (Duoneb -) 1 amp NEB QIDR [facility] Last Admin: 03/24/17 17:32 Dose: 1 amp Apixaban (Eliquis -) 2.5 mg PO BID [facility] Last Admin: 03/24/17 22:32 Dose: 2.5 mg Aspirin (Asa -) 81 mg PO DAILY [facility] Last Admin: 03/24/17 09:27 Dose: 81 mg Atorvastatin Calcium (Lipitor -) 10 mg PO HS [facility] Last Admin: 03/24/17 22:49 Dose: 10 mg Docusate Sodium (Colace -) 100 mg PO DAILY [facility] Last Admin: 03/24/17 09:28 Dose: 100 mg Guaifenesin (Robitussin -) 5 ml PO QID [facility] Last Admin: 03/24/17 22:49 Dose: 5 ml Piperacillin Sod/Tazobactam (Sod 3.375 gm/ Dextrose) 100 mls @ 200 mls/hr IVPB Q8H-IV [facility] Last Admin: 03/25/17 01:52 Dose: 200 mls/hr Insulin Aspart (Novolog Vial Sliding Scale -) [address] [facility] PRN Reason: Protocol Last Admin: 03/25/17 06:30 Dose: Not Given Insulin Detemir (Levemir Vial) 15 units SQ [facility] Magnesium Hydroxide (Milk Of Magnesia -) 30 ml PO DAILY PRN PRN Reason: CONSTIPATION Metoprolol Tartrate (Lopressor -) 50 mg PO TID [facility] Last Admin: 03/25/17 06:01 Dose: 50 mg Polyethylene Glycol (Miralax (For Daily Use) -) 17 gm PO BID [facility] Last Admin: 03/24/17 22:38 Dose: 17 gm Sitagliptin Phosphate (Januvia -) 25 mg PO DAILY@0700 [facility] Last Admin: 03/25/17 07:23 Dose: Not Given - Objective Vital Signs: Vital Signs Temperature 97.8 F 03/25/17 05:52 Pulse Rate 102 H 03/25/17 05:52 Respiratory Rate 24 03/25/17 05:52 Blood Pressure 146/97 03/25/17 05:52 O2 Sat by Pulse Oximetry (%) 92 L 03/25/17 06:28 Constitutional: Yes: No Distress Cardiovascular: Yes: Pulse Irregular Respiratory: Yes: CTA Bilaterally Gastrointestinal: Yes: Soft, Abdomen, Obese Edema: Yes Edema: LLE: 1+, RLE: 1+ Neurological: Yes: Alert Labs: CBC, BMP 03/25/17 06:10 03/25/17 06:10 INR, PTT INR 0.99 (0.82-1.09) 03/21/17 20:45 Laboratory Tests 03/25/17 03/25/17 06:10 06:10 WBC 13.6 H D Hgb 13.6 Plt Count 322 D Potassium 3.4 L Creatinine 2.2 H - ....Imaging EKG: Image Reviewed Problem List - Problems (1) Bronchiectasis with (acute) exacerbation Code(s): J47.1 - BRONCHIECTASIS WITH (ACUTE) EXACERBATION (2) Pneumonia Code(s): J18.9 - PNEUMONIA, UNSPECIFIED ORGANISM Qualifiers: Laterality: unspecified laterality (3) Pulmonary hypertension Code(s): I27.20 - PULMONARY HYPERTENSION, UNSPECIFIED (4) Acute respiratory failure with hypercapnia Code(s): J96.02 - ACUTE RESPIRATORY FAILURE WITH HYPERCAPNIA (5) Acute respiratory failure with hypoxia Code(s): J96.01 - ACUTE RESPIRATORY FAILURE WITH HYPOXIA (6) New onset a-fib Code(s): I48.91 - UNSPECIFIED ATRIAL FIBRILLATION (7) CAD (coronary artery disease) Code(s): I25.10 - ATHSCL HEART DISEASE OF [place] CORONARY ARTERY W/O ANG PCTRS Qualifiers: Coronary Disease-Associated Artery/Lesion type: bypass graft, autologous artery Associated angina: without angina Qualified Code(s): I25.810 - Atherosclerosis of coronary artery bypass graft(s) without angina pectoris (8) ASHD (arteriosclerotic heart disease) Code(s): I25.10 - ATHSCL HEART DISEASE OF [place] CORONARY ARTERY W/O ANG PCTRS (9) Acute kidney injury Code(s): N17.9 - ACUTE KIDNEY FAILURE, UNSPECIFIED Assessment/Plan IMP: 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 New onset AF: likely triggered by acutely worsened pulmonary status/possible PNA and mild volume overload. -Continue Eliquis adjusted for GFR, age - Initially on Cardizem to avoid bronchospasm, then switched to TID metoprolol for smoother rate control -Thus far tolerated well without bronchospasm -Switch to XL prior to d/c 2. Acute on chronic combined systolic and diastolic CHF: -Due to bump in creatinine, will d/c IV Lasix. -Tele monitoring -Daily deights and close monitoring of renal fxn -CPAP as needed 3. Bronchiectasis/hypoxia/fever: -Abx/CPAP, further w/u as per PMD 4. Hypoglycemia: -?spurious? -Further Rx as per PMD
[2017-03-25] MEDS ORDERED: methylPREDNISolone NA SUCC 40 MG/1 ML VIAL IVPUSH SCH (10:00)
[2017-03-25] MEDS: APIXABAN 2.5 MG TABLET PO SCH ×2 (10:19→22:27)
[2017-03-25] MEDS: DOCUSATE SODIUM 100 MG CAPSULE (FP) PO SCH (10:19)
[2017-03-25] MEDS: ASPIRIN 81 MG CHEWABLE TABLETS PO SCH (10:19)
[2017-03-25] MEDS: guaiFENesin 200 MG/10 ML 10 ML UNIT-DOSE CUPS PO SCH ×4 (10:19→22:29)
[2017-03-25] MEDS: POLYETHYLENE GLYCOL 3350 119 GM BTL PO SCH ×2 (10:27→22:29)
[2017-03-25] MEDS: ALBUTEROL SO4 2.5/IPRATROPIUM 0.5 INH SOL 3 ML VIAL.NEB. NEB SCH ×3 (11:08→23:05)
--- NOTE | 2017-03-25 11:48 | PN ---
Progress Note (short form) - Note Progress Note: Breathing feels a little better today. Saturation 96% on 2 L NC O2. Cough persists. No hemoptysis. Intake & Output 03/22/17 03/23/17 03/24/17 03/25/17 23:59 23:59 23:59 23:59 Intake Total 100 200 210 Output Total 400 600 200 Balance 100 -400 -400 10 Weight 236 lb 239 lb 2 oz Last Vital Signs Temp Pulse Resp BP Pulse Ox 97.8 F 84 22 132/87 96 03/25/17 09:58 03/25/17 10:46 03/25/17 09:58 03/25/17 09:58 03/25/17 10:46 Active Medications Acetaminophen (Tylenol -) 325 mg PO DAILY PRN Last Admin: 03/24/17 23:33 Dose: 325 mg Albuterol/Ipratropium (Duoneb -) 1 amp NEB QIDR [facility] Last Admin: 03/25/17 11:08 Dose: 1 amp Apixaban (Eliquis -) 2.5 mg PO BID [facility] Last Admin: 03/25/17 10:19 Dose: 2.5 mg Aspirin (Asa -) 81 mg PO DAILY [facility] Last Admin: 03/25/17 10:19 Dose: 81 mg Atorvastatin Calcium (Lipitor -) 10 mg PO HS [facility] Last Admin: 03/24/17 22:49 Dose: 10 mg Docusate Sodium (Colace -) 100 mg PO DAILY [facility] Last Admin: 03/25/17 10:19 Dose: 100 mg Guaifenesin (Robitussin -) 5 ml PO QID [facility] Last Admin: 03/25/17 10:19 Dose: 5 ml Piperacillin Sod/Tazobactam (Sod 3.375 gm/ Dextrose) 100 mls @ 200 mls/hr IVPB Q8H-IV [facility] Last Admin: 03/25/17 11:38 Dose: 200 mls/hr Insulin Aspart (Novolog Vial Sliding Scale -) 1 vial SQ [facility] PRN Reason: Protocol Last Admin: 03/25/17 11:20 Dose: Not Given Insulin Detemir (Levemir Vial) 15 units SQ [facility] Magnesium Hydroxide (Milk Of Magnesia -) 30 ml PO DAILY PRN PRN Reason: CONSTIPATION Metoprolol Tartrate (Lopressor -) 50 mg PO TID [facility] Last Admin: 03/25/17 06:01 Dose: 50 mg Polyethylene Glycol (Miralax (For Daily Use) -) 17 gm PO BID [facility] Last Admin: 03/25/17 10:27 Dose: 17 gm Sitagliptin Phosphate (Januvia -) 25 mg PO DAILY@0700 [facility] Last Admin: 03/25/17 07:23 Dose: Not Given Gen: mildly tachypneic at rest Heart: RRR Lung: distant breath sounds, no wheezes Abd: soft, nontender Ext: no edema Laboratory Results - last 24 hr 03/24/17 03/24/17 03/24/17 05:50 05:53 11:25 WBC RBC Hgb Hct MCV MCH MCHC RDW Plt Count MPV Neutrophils % Lymphocytes % Monocytes % Eosinophils % Basophils % Sodium Potassium Chloride Carbon Dioxide Anion Gap BUN Creatinine POC Glucometer > 400 > [phone] Random Glucose Calcium Phosphorus Magnesium 03/24/17 03/24/17 03/25/17 16:33 22:27 05:47 WBC RBC Hgb Hct MCV MCH MCHC RDW Plt Count MPV Neutrophils % Lymphocytes % Monocytes % Eosinophils % Basophils % Sodium Potassium Chloride Carbon Dioxide Anion Gap BUN Creatinine POC Glucometer [phone] < 50 Random Glucose Calcium Phosphorus Magnesium 03/25/17 03/25/17 03/25/17 06:10 06:10 06:24 WBC 13.6 H D RBC 4.46 Hgb 13.6 Hct 42.1 MCV 94.3 MCH 30.6 MCHC 32.4 RDW 14.8 Plt Count 322 D MPV 9.2 Neutrophils % 78.8 Lymphocytes % 6.8 L D Monocytes % 14.2 H D Eosinophils % 0.1 D Basophils % 0.1 Sodium 141 Potassium 3.4 L Chloride 92 L Carbon Dioxide 39 H Anion Gap 10 BUN 61 H Creatinine 2.2 H POC Glucometer [phone] Random Glucose 31 L* D Calcium 9.0 Phosphorus 4.3 D Magnesium 3.3 H D Problem List - Problems (1) Acute respiratory failure with hypercapnia Code(s): J96.02 - ACUTE RESPIRATORY FAILURE WITH HYPERCAPNIA (2) Acute respiratory failure with hypoxia Code(s): J96.01 - ACUTE RESPIRATORY FAILURE WITH HYPOXIA (3) COPD with acute exacerbation Code(s): J44.1 - CHRONIC OBSTRUCTIVE PULMONARY DISEASE W (ACUTE) EXACERBATION (4) Bronchiectasis with (acute) exacerbation Code(s): J47.1 - BRONCHIECTASIS WITH (ACUTE) EXACERBATION (5) CAD (coronary artery disease) Code(s): I25.10 - ATHSCL HEART DISEASE OF [place] CORONARY ARTERY W/O ANG PCTRS Qualifiers: Coronary Disease-Associated Artery/Lesion type: bypass graft, autologous artery Associated angina: without angina Qualified Code(s): I25.810 - Atherosclerosis of coronary artery bypass graft(s) without angina pectoris (6) Pulmonary hypertension Code(s): I27.20 - PULMONARY HYPERTENSION, UNSPECIFIED (7) Acute on chronic systolic (congestive) heart failure Code(s): I50.23 - ACUTE ON CHRONIC SYSTOLIC (CONGESTIVE) HEART FAILURE A/P Acute on Chronic Hypoxic and Hypercapneic Respiratory Failure New Onset Atrial Fibrillation r/o Pneumonia r/o Influenza Acute COPD/Bronchiectasis Exacerbation Acute on Chronic Systolic Heart Failure Asbestos Exposure CAD s/p CABG Pulmonary HTN DM CKD - ABX - Medrol - inhaled bronchodilators - NIPPV QHS and PRN during day - O2 to keep Spo2 >90% - rate control - continue anticoagulation - monitor urine output, creatinine Dr Martinez
[2017-03-25] MEDS: ATORVASTATIN CA 10 MG TABLET (FP) PO SCH (22:27)
[2017-03-25] MEDS: INSULIN DETEMIR 100 UNITS/ML MDV SQ SCH (22:27)
[2017-03-25 22:35] LABS: URINE APPEARANCE CLEAR; URINE BILIRUBIN NEGATIVE (NEGATIVE); URINE BLOOD NEGATIVE (NEGATIVE); URINE COLOR LTYELLOW; URINE GLUCOSE (UA) NEGATIVE (NEGATIVE); URINE KETONE NEGATIVE (NEGATIVE); URINE LEUK ESTERASE NEGATIVE (NEGATIVE); URINE NITRITE NEGATIVE (NEGATIVE); URINE PROTEIN NEGATIVE (NEGATIVE); URINE UROBILINOGEN NEGATIVE mg/dL (0.2-1.0)
[2017-03-26] MEDS: PIPERACILLIN/TAZOB 3.375 GM 3.375 GM in DEXTROSE 5%-WATER - 100 ML IVPB SCH ×3 (02:00→17:01)
[2017-03-26] MEDS: INSULIN SLIDING SCALE (NOVOLOG) 1 VIAL SQ SCH ×4 (06:39→21:53)
[2017-03-26] MEDS ORDERED: PT OWN MED DRAWER 7, Y5N ONE ×3 (06:41→11:13)
[2017-03-26] MEDS: sitaGLIPtin PHOSPHATE 25 MG TABLET (FP) PO SCH (06:43)
[2017-03-26] MEDS: METOPROLOL TARTRATE 50 MG TABLET (FP) PO SCH ×3 (06:43→21:47)
[2017-03-26] MEDS: ALBUTEROL SO4 2.5/IPRATROPIUM 0.5 INH SOL 3 ML VIAL.NEB. NEB SCH ×3 (06:51→17:30)
--- NOTE | 2017-03-26 08:56 | PN ---
Progress Note, Physician Chief Complaint: no distress Sitting up in bed History of Present Illness: TELE reveals rate controlled AF - Current Medication List Current Medications: Active Medications Acetaminophen (Tylenol -) 325 mg PO DAILY PRN Last Admin: 03/24/17 23:33 Dose: 325 mg Albuterol/Ipratropium (Duoneb -) 1 amp NEB QIDR [facility] Last Admin: 03/26/17 06:51 Dose: 1 amp Apixaban (Eliquis -) 2.5 mg PO BID [facility] Last Admin: 03/25/17 22:27 Dose: 2.5 mg Aspirin (Asa -) 81 mg PO DAILY [facility] Last Admin: 03/25/17 10:19 Dose: 81 mg Atorvastatin Calcium (Lipitor -) 10 mg PO [facility] Last Admin: 03/25/17 22:27 Dose: 10 mg Docusate Sodium (Colace -) 100 mg PO DAILY [facility] Last Admin: 03/25/17 10:19 Dose: 100 mg Guaifenesin (Robitussin -) 5 ml PO QID [facility] Last Admin: 03/25/17 22:29 Dose: 5 ml Piperacillin Sod/Tazobactam (Sod 3.375 gm/ Dextrose) 100 mls @ 200 mls/hr IVPB Q8H-IV [facility] Last Admin: 03/26/17 02:00 Dose: 200 mls/hr Insulin Aspart (Novolog Vial Sliding Scale -) 1 vial SQ [facility] PRN Reason: Protocol Last Admin: 03/26/17 06:39 Dose: Not Given Insulin Detemir (Levemir Vial) 15 units SQ [facility] Last Admin: 03/25/17 22:27 Dose: Not Given Magnesium Hydroxide (Milk Of Magnesia -) 30 ml PO DAILY PRN PRN Reason: CONSTIPATION Metoprolol Tartrate (Lopressor -) 50 mg PO TID [facility] Last Admin: 03/26/17 06:43 Dose: 50 mg Polyethylene Glycol (Miralax (For Daily Use) -) 17 gm PO BID [facility] Last Admin: 03/25/17 22:29 Dose: 17 gm Sitagliptin Phosphate (Januvia -) 25 mg PO DAILY@0700 [facility] Last Admin: 03/26/17 06:43 Dose: 25 mg - Objective Vital Signs: Vital Signs Temperature 98.7 F 03/26/17 07:00 Pulse Rate 90 03/26/17 07:00 Respiratory Rate 20 03/26/17 07:00 Blood Pressure 123/87 03/26/17 07:00 O2 Sat by Pulse Oximetry (%) 97 03/25/17 23:47 Constitutional: Yes: Calm Cardiovascular: Yes: Pulse Irregular Respiratory: Yes: Other (scattered rhonchi, no active wheezing) Gastrointestinal: Yes: Soft Edema: Yes Edema: LLE: 1+, RLE: 1+ Neurological: Yes: Alert Labs: CBC, BMP 03/25/17 06:10 03/25/17 06:10 INR, PTT INR 0.99 (0.82-1.09) 03/21/17 20:45 Laboratory Tests 03/25/17 03/25/17 06:10 06:10 WBC 13.6 H D Hct 42.1 Plt Count 322 D Sodium 141 Potassium 3.4 L BUN 61 H Creatinine 2.2 H Problem List - Problems (1) Bronchiectasis with (acute) exacerbation Code(s): J47.1 - BRONCHIECTASIS WITH (ACUTE) EXACERBATION (2) Pneumonia Code(s): J18.9 - PNEUMONIA, UNSPECIFIED ORGANISM Qualifiers: Laterality: unspecified laterality (3) Pulmonary hypertension Code(s): I27.20 - PULMONARY HYPERTENSION, UNSPECIFIED (4) Acute respiratory failure with hypercapnia Code(s): J96.02 - ACUTE RESPIRATORY FAILURE WITH HYPERCAPNIA (5) Acute respiratory failure with hypoxia Code(s): J96.01 - ACUTE RESPIRATORY FAILURE WITH HYPOXIA (6) New onset a-fib Code(s): I48.91 - UNSPECIFIED ATRIAL FIBRILLATION (7) CAD (coronary artery disease) Code(s): I25.10 - ATHSCL HEART DISEASE OF [place] CORONARY ARTERY W/O ANG PCTRS Qualifiers: Coronary Disease-Associated Artery/Lesion type: bypass graft, autologous artery Associated angina: without angina Qualified Code(s): I25.810 - Atherosclerosis of coronary artery bypass graft(s) without angina pectoris (8) ASHD (arteriosclerotic heart disease) Code(s): I25.10 - ATHSCL HEART DISEASE OF [place] CORONARY ARTERY W/O ANG PCTRS (9) Acute kidney injury Code(s): N17.9 - ACUTE KIDNEY FAILURE, UNSPECIFIED Assessment/Plan IMP: 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 New onset AF: likely triggered by acutely worsened pulmonary status/possible PNA and mild volume overload. -Continue Eliquis adjusted for GFR, age - Initially on Cardizem to avoid bronchospasm, then switched to TID metoprolol for smoother rate control -Thus far tolerated well without bronchospasm -Switch to XL prior to d/c 2. Acute on chronic combined systolic and diastolic CHF: -Due to bump in creatinine, will d/c IV Lasix. -Daily deights and close monitoring of renal fxn -CPAP as needed 3. Bronchiectasis/hypoxia/fever: -Abx/CPAP, further w/u as per PMD
--- NOTE | 2017-03-26 09:19 | PN ---
Progress Note (short form) - Note Progress Note: Sitting in a chair, c/o worthening LE edema, increasing SOB. Constipated. C/o poor sleep. Appears more sleepy today but arousable. On NC O2 Spoke to -pt is DNR/DNI Vital Signs Temp 98.7 F 03/26/17 07:00 Pulse 90 03/26/17 07:00 Resp 20 03/26/17 07:00 BP 123/87 03/26/17 07:00 Pulse Ox 97 03/25/17 23:47 Intake & Output 03/25/17 03/25/17 03/26/17 11:59 23:59 11:59 Intake Total 210 108 50 Output Total 200 100 300 Balance 10 8 -250 Weight 240 lb 11.2 oz Intake: IV 10 s/l 10 IVPB 200 100 50 Oral 8 Output: Urine 200 100 300 Void 200 100 300 Other: Voiding Method Toilet Toilet Neck NT, supple, no JVD Lungs decreased B/L BS, no rales. Heart S1S2 irregular, irregular Abdomen obese, ND. NT Ext +2 pretibial edema B/L Laboratory Results - last 24 hr 03/25/17 03/25/17 03/25/17 05:47 06:24 22:00 POC Glucometer < 50 163.75566 Urine Color Urine Appearance Urine pH Ur Specific [place] Urine Protein Urine Glucose (UA) Urine Ketones Urine Blood Urine Nitrite Urine Bilirubin Urine Urobilinogen Ur Leukocyte Esterase Ur Random Sodium 12 Ur Random Potassium 49.1 Ur Random Chloride < 10 03/25/17 22:00 POC Glucometer Urine Color Ltyellow Urine Appearance Clear Urine pH 6.0 Ur Specific [place] 1.019 Urine Protein Negative Urine Glucose (UA) Negative Urine Ketones Negative Urine Blood Negative Urine Nitrite Negative Urine Bilirubin Negative Urine Urobilinogen Negative Ur Leukocyte Esterase Negative Ur Random Sodium Ur Random Potassium Ur Random Chloride Current Medications Generic Name Dose Route Start Last Admin Trade Name Freq PRN Reason Stop Dose Admin Acetaminophen 325 mg 03/21/17 22:45 03/24/17 23:33 Tylenol - PO 325 mg DAILY PRN Administration Albuterol/Ipratropium 1 amp 03/22/17 00:00 03/26/17 06:51 Duoneb - NEB 1 amp QIDR [facility] Administration Apixaban 2.5 mg 03/22/17 10:00 03/25/17 22:27 Eliquis - PO 2.5 mg BID [facility] Administration Aspirin 81 mg 03/22/17 10:00 03/25/17 10:19 Asa - PO 81 mg DAILY [facility] Administration Atorvastatin Calcium 10 mg 03/22/17 22:00 03/25/17 22:27 Lipitor - PO 10 mg HS [facility] Administration Bisacodyl 10 mg 03/26/17 10:00 Dulcolax - PO DAILY [facility] Furosemide 40 mg 03/26/17 10:00 Lasix - PO DAILY [facility] Guaifenesin 5 ml 03/22/17 10:00 03/25/17 22:29 Robitussin - PO 5 ml QID [facility] Administration Piperacillin Sod/Tazobactam 100 mls @ 200 mls/hr 03/22/17 10:00 03/26/17 02: 00 Sod 3.375 gm/ Dextrose IVPB 200 mls/hr Q8H-IV [facility] Administration Insulin Aspart 1 vial 03/22/17 07:00 03/26/17 06:39 Novolog Vial Sliding Scale - SQ Not Given [facility] Protocol Insulin Detemir 15 units 03/25/17 08:29 03/25/17 22:27 Levemir Vial SQ Not Given HS [facility] Magnesium Hydroxide 30 ml 03/26/17 10:00 Milk Of Magnesia - PO DAILY [facility] Metoprolol Tartrate 50 mg 03/24/17 14:00 03/26/17 06:43 Lopressor - PO 50 mg TID [facility] Administration Polyethylene Glycol 17 gm 03/22/17 10:00 03/25/17 22:29 Miralax (For Daily Use) - PO 17 gm BID [facility] Administration Sitagliptin Phosphate 25 mg 03/22/17 07:00 03/26/17 06:43 Januvia - PO 25 mg DAILY@0700 [facility] Administration Current Active Problems Problem Status Onset Acute on chronic systolic (congestive) heart failure Acute Bronchiectasis with (acute) exacerbation Acute CAD (coronary artery disease) Acute CHF exacerbation Acute COPD (chronic obstructive pulmonary disease) with acute bronchitis Acute New onset a-fib Acute Pleural effusion Acute Pneumonia Acute Pulmonary hypertension Acute Respiratory failure with hypercapnia Acute Plan ABG now CBC, CMP IN AM. Re-start Lasix PO Follow renal fx Problem List - Problems (1) Bronchiectasis with (acute) exacerbation Code(s): J47.1 - BRONCHIECTASIS WITH (ACUTE) EXACERBATION (2) COPD (chronic obstructive pulmonary disease) with acute bronchitis Code(s): J44.0 - CHRONIC OBSTRUCTIVE PULMON DISEASE W ACUTE LOWER RESP INFCT; J20.9 - ACUTE BRONCHITIS, UNSPECIFIED (3) New onset a-fib Code(s): I48.91 - UNSPECIFIED ATRIAL FIBRILLATION (4) Pneumonia Code(s): J18.9 - PNEUMONIA, UNSPECIFIED ORGANISM Qualifiers: Laterality: unspecified laterality (5) Pulmonary hypertension Code(s): I27.20 - PULMONARY HYPERTENSION, UNSPECIFIED (6) Respiratory failure with hypercapnia Code(s): J96.92 - RESPIRATORY FAILURE, UNSPECIFIED WITH HYPERCAPNIA Qualifiers: Chronicity: acute Qualified Code(s): J96.02 - Acute respiratory failure with hypercapnia (7) CHF exacerbation Code(s): I50.9 - HEART FAILURE, UNSPECIFIED Qualifiers: Congestive heart failure type: combined Qualified Code(s): I50.43 - Acute on chronic combined systolic (congestive) and diastolic (congestive) heart failure (8) Pleural effusion Code(s): J90 - PLEURAL EFFUSION, NOT ELSEWHERE CLASSIFIED
[2017-03-26] MEDS: ASPIRIN 81 MG CHEWABLE TABLETS PO SCH (09:32)
[2017-03-26] MEDS: APIXABAN 2.5 MG TABLET PO SCH ×2 (09:32→21:47)
[2017-03-26] MEDS: guaiFENesin 200 MG/10 ML 10 ML UNIT-DOSE CUPS PO SCH ×4 (09:32→21:47)
[2017-03-26] MEDS: MAGNESIUM HYDROX 2400MG/30ML ORAL SUSPENSION 30 ML CUP PO SCH (09:34)
--- NOTE | 2017-03-26 09:46 | PN ---
Progress Note, Physician History of Present Illness: PULMONARY ALERT,OOB-CHAIR,STILL CONGESTED - Current Medication List Current Medications: Active Medications Acetaminophen (Tylenol -) 325 mg PO DAILY PRN Last Admin: 03/24/17 23:33 Dose: 325 mg Albuterol/Ipratropium (Duoneb -) 1 amp NEB QIDR [facility] Last Admin: 03/26/17 06:51 Dose: 1 amp Apixaban (Eliquis -) 2.5 mg PO BID [facility] Last Admin: 03/26/17 09:32 Dose: 2.5 mg Aspirin (Asa -) 81 mg PO DAILY [facility] Last Admin: 03/26/17 09:32 Dose: 81 mg Atorvastatin Calcium (Lipitor -) 10 mg PO HS [facility] Last Admin: 03/25/17 22:27 Dose: 10 mg Bisacodyl (Dulcolax -) 10 mg PO DAILY [facility] Furosemide (Lasix -) 40 mg PO DAILY [facility] Guaifenesin (Robitussin -) 5 ml PO QID [facility] Last Admin: 03/26/17 09:32 Dose: 5 ml Piperacillin Sod/Tazobactam (Sod 3.375 gm/ Dextrose) 100 mls @ 200 mls/hr IVPB Q8H-IV [facility] Last Admin: 03/26/17 09:35 Dose: 200 mls/hr Insulin Aspart (Novolog Vial Sliding Scale -) 1 vial SQ ACH[facility] PRN Reason: Protocol Last Admin: 03/26/17 06:39 Dose: Not Given Insulin Detemir (Levemir Vial) 15 units SQ [facility] Last Admin: 03/25/17 22:27 Dose: Not Given Magnesium Hydroxide (Milk Of Magnesia -) 30 ml PO DAILY [facility] Last Admin: 03/26/17 09:34 Dose: 30 ml Metoprolol Tartrate (Lopressor -) 50 mg PO TID [facility] Last Admin: 03/26/17 06:43 Dose: 50 mg Polyethylene Glycol (Miralax (For Daily Use) -) 17 gm PO BID [facility] Last Admin: 03/25/17 22:29 Dose: 17 gm Sitagliptin Phosphate (Januvia -) 25 mg PO DAILY@0700 [facility] Last Admin: 03/26/17 06:43 Dose: 25 mg - Objective Vital Signs: Vital Signs Temperature 98.7 F 03/26/17 07:00 Pulse Rate 90 03/26/17 07:00 Respiratory Rate 20 03/26/17 07:00 Blood Pressure 123/87 03/26/17 07:00 O2 Sat by Pulse Oximetry (%) 97 03/25/17 23:47 Constitutional: Yes: Well Nourished, Calm Eyes: Yes: WNL HENT: Yes: WNL Neck: Yes: WNL Cardiovascular: Yes: Pulse Irregular, S1, S2 Respiratory: Yes: Rhonchi (BILATERAL RHONCHI) Gastrointestinal: Yes: Normal Bowel Sounds, Soft Extremities: Yes: WNL Edema: Yes Labs: CBC, BMP Assessment/Plan A/P Acute on Chronic Hypoxic and Hypercapneic Respiratory Failure improving New Onset Atrial Fibrillation r/o Pneumonia Acute COPD/Bronchiectasis Exacerbation Acute on Chronic Systolic Heart Failure Asbestos Exposure CAD s/p CABG Pulmonary HTN DM CKD - continue antibiotics - inhaled bronchodilators - BiPAP at night and PRN during day - O2 to keep Spo2 >90% - monitor ABG - rate control - anticoagulation - lasix - medrol - monitor urine output, creatinine DR HERNANDEZ Problem List - Problems (1) Acute respiratory failure with hypercapnia Code(s): J96.02 - ACUTE RESPIRATORY FAILURE WITH HYPERCAPNIA (2) Acute respiratory failure with hypoxia Code(s): J96.01 - ACUTE RESPIRATORY FAILURE WITH HYPOXIA (3) COPD with acute exacerbation Code(s): J44.1 - CHRONIC OBSTRUCTIVE PULMONARY DISEASE W (ACUTE) EXACERBATION (4) Bronchiectasis with (acute) exacerbation Code(s): J47.1 - BRONCHIECTASIS WITH (ACUTE) EXACERBATION (5) CAD (coronary artery disease) Code(s): I25.10 - ATHSCL HEART DISEASE OF [place] CORONARY ARTERY W/O ANG PCTRS Qualifiers: Coronary Disease-Associated Artery/Lesion type: bypass graft, autologous artery Associated angina: without angina Qualified Code(s): I25.810 - Atherosclerosis of coronary artery bypass graft(s) without angina pectoris (6) Pulmonary hypertension Code(s): I27.20 - PULMONARY HYPERTENSION, UNSPECIFIED (7) Acute on chronic systolic (congestive) heart failure Code(s): I50.23 - ACUTE ON CHRONIC SYSTOLIC (CONGESTIVE) HEART FAILURE
[2017-03-26] MEDS: BISACODYL 5 MG TABLET.DR (FP) PO SCH (09:48)
[2017-03-26] MEDS: FUROSEMIDE 40 MG TABLET (FP) PO SCH (09:48)
[2017-03-26] MEDS: methylPREDNISolone NA SUCC 40 MG/1 ML VIAL IVPUSH SCH (10:16)
--- NOTE | 2017-03-26 10:51 | PN ---
Progress Note, Physician History of Present Illness: OOB in chair Reports feeling more dyspneic today No c/o chest pain, cough Appears slightly tachypneic on nasal cannula Afebrile BC no growth Sputum c/s normal ponce - Current Medication List Current Medications: Active Medications Acetaminophen (Tylenol -) 325 mg PO DAILY PRN Last Admin: 03/24/17 23:33 Dose: 325 mg Albuterol/Ipratropium (Duoneb -) 1 amp NEB QIDR [facility] Last Admin: 03/26/17 06:51 Dose: 1 amp Apixaban (Eliquis -) 2.5 mg PO BID [facility] Last Admin: 03/26/17 09:32 Dose: 2.5 mg Aspirin (Asa -) 81 mg PO DAILY [facility] Last Admin: 03/26/17 09:32 Dose: 81 mg Atorvastatin Calcium (Lipitor -) 10 mg PO [facility] Last Admin: 03/25/17 22:27 Dose: 10 mg Bisacodyl (Dulcolax -) 10 mg PO DAILY [facility] Last Admin: 03/26/17 09:48 Dose: 10 mg Furosemide (Lasix -) 40 mg PO DAILY [facility] Last Admin: 03/26/17 09:48 Dose: 40 mg Guaifenesin (Robitussin -) 5 ml PO QID [facility] Last Admin: 03/26/17 09:32 Dose: 5 ml Piperacillin Sod/Tazobactam (Sod 3.375 gm/ Dextrose) 100 mls @ 200 mls/hr IVPB Q8H-IV [facility] Last Admin: 03/26/17 09:35 Dose: 200 mls/hr Insulin Aspart (Novolog Vial Sliding Scale -) 1 vial SQ ACHS [facility] PRN Reason: Protocol Last Admin: 03/26/17 06:39 Dose: Not Given Insulin Detemir (Levemir Vial) 15 units SQ [facility] Last Admin: 03/25/17 22:27 Dose: Not Given Magnesium Hydroxide (Milk Of Magnesia -) 30 ml PO DAILY [facility] Last Admin: 03/26/17 09:34 Dose: 30 ml Methylprednisolone Sodium Succinate (Solu-Medrol -) 40 mg IVPUSH DAILY [facility] Last Admin: 03/26/17 10:16 Dose: 40 mg Metoprolol Tartrate (Lopressor -) 50 mg PO TID [facility] Last Admin: 03/26/17 06:43 Dose: 50 mg Polyethylene Glycol (Miralax (For Daily Use) -) 17 gm PO BID [facility] Last Admin: 03/25/17 22:29 Dose: 17 gm Sitagliptin Phosphate (Januvia -) 25 mg PO DAILY@0700 [facility] Last Admin: 03/26/17 06:43 Dose: 25 mg - Objective Vital Signs: Vital Signs Temperature 98 F 03/26/17 10:00 Pulse Rate 94 H 03/26/17 10:00 Respiratory Rate 22 03/26/17 10:00 Blood Pressure 115/69 03/26/17 10:00 O2 Sat by Pulse Oximetry (%) 96 03/26/17 10:00 Constitutional: Yes: Obese Cardiovascular: Yes: Regular Rate and Rhythm, S1, S2 Respiratory: Yes: Rhonchi, Other (decreased BS bases) Gastrointestinal: Yes: Normal Bowel Sounds, Soft, Abdomen, Obese. No: Tenderness Edema: Yes Labs: CBC, BMP 03/25/17 06:10 03/25/17 06:10 INR, PTT INR 0.99 (0.82-1.09) 03/21/17 20:45 Assessment/Plan Acute exacerbation COPD/ Bronchiectasis HCAP New onset Afib Continue empiric zosyn, day #6 Bronchodilators, steroids, diuretic
[2017-03-26 11:12] LABS: ARTERIAL BLD GAS O2 SATURATION 93.8 % (90-98.9); ARTERIAL BLOOD GAS BASE EXCESS 12.5 meq/l (-2-2); ARTERIAL BLOOD GAS PO2 73.7 mmHg (68-100); ARTERIAL BLOOD GAS pH 7.39 (7.35-7.45)
[2017-03-26 11:19] LABS: ALLENS TEST POSITIVE
[2017-03-26 11:24] LABS: ARTERIAL BLOOD GAS PCO2 68.7 mmHg (35-45)
[2017-03-26] MEDS: POLYETHYLENE GLYCOL 3350 119 GM BTL PO SCH ×2 (13:40→21:47)
[2017-03-26] MEDS: ATORVASTATIN CA 10 MG TABLET (FP) PO SCH (21:47)
[2017-03-26] MEDS: INSULIN DETEMIR 100 UNITS/ML MDV SQ SCH (21:53)
[2017-03-27] MEDS: ALBUTEROL SO4 2.5/IPRATROPIUM 0.5 INH SOL 3 ML VIAL.NEB. NEB SCH ×5 (00:30→23:32)
[2017-03-27] MEDS ORDERED: PT OWN MED DRAWER 7, Y5N ONE ×4 (03:18→18:03)
[2017-03-27] MEDS: PIPERACILLIN/TAZOB 3.375 GM 3.375 GM in DEXTROSE 5%-WATER - 100 ML IVPB SCH ×3 (03:53→17:01)
[2017-03-27] MEDS: INSULIN SLIDING SCALE (NOVOLOG) 1 VIAL SQ SCH ×4 (06:13→22:57)
[2017-03-27] MEDS: METOPROLOL TARTRATE 50 MG TABLET (FP) PO SCH ×3 (06:13→23:00)
[2017-03-27] MEDS: sitaGLIPtin PHOSPHATE 25 MG TABLET (FP) PO SCH (06:13)
[2017-03-27 06:27] LABS: BASO % 0.4 % (0-2.0); EOS % 2.2 % (0-4.5); HEMATOCRIT 39.6 % (35.4-49); LYMPH % 12.4 % (8-40); MCH 31.2 pg (25.7-33.7); MCHC 32.9 g/dl (32.0-35.9); MEAN CELL VOLUME 94.9 fl (80-96); MEAN PLT VOLUME 9.3 fl (7.5-11.1); MONO % 8.4 % (3.8-10.2); NEUT % 76.6 % (42.8-82.8); PLATELET COUNT 223 K/MM3 (134-434); RBC 4.17 M/mm3 (4.00-5.60); WHITE BLOOD COUNT 7.7 K/mm3 (4.0-10.0)
[2017-03-27 06:44] LABS: ALBUMIN 3.2 g/dl (3.4-5.0); BLOOD UREA NITROGEN 50 mg/dL (7-18); CHLORIDE 92 mmol/L (98-107); CREATININE 1.7 mg/dL (0.7-1.3); GLUCOSE,RANDOM 186 mg/dL (74-106); POTASSIUM 4.4 mmol/L (3.5-5.1); SGOT/AST 50 U/L (15-37); SGPT/ALT 102 U/L (12-78); SODIUM 138 mmol/L (136-145)
[2017-03-27 06:45] LABS: ALK PHOS 60 U/L (45-117); BILIRUBIN,TOTAL 0.7 mg/dL (0.2-1.0); TOT PROT 6.5 g/dl (6.4-8.2)
[2017-03-27 07:43] LABS: ANION GAP -1 (8-16); CO2 47 mmol/L (21-32)
[2017-03-27] MEDS: MAGNESIUM HYDROX 2400MG/30ML ORAL SUSPENSION 30 ML CUP PO SCH (09:23)
[2017-03-27] MEDS: methylPREDNISolone NA SUCC 40 MG/1 ML VIAL IVPUSH SCH ×3 (09:23→17:02)
[2017-03-27] MEDS: BISACODYL 5 MG TABLET.DR (FP) PO SCH (09:32)
[2017-03-27] MEDS: guaiFENesin 200 MG/10 ML 10 ML UNIT-DOSE CUPS PO SCH ×4 (09:32→22:58)
[2017-03-27] MEDS: FUROSEMIDE 40 MG TABLET (FP) PO SCH (09:33)
[2017-03-27] MEDS: ASPIRIN 81 MG CHEWABLE TABLETS PO SCH (09:33)
[2017-03-27] MEDS: APIXABAN 2.5 MG TABLET PO SCH ×2 (09:33→23:00)
[2017-03-27] MEDS: POLYETHYLENE GLYCOL 3350 119 GM BTL PO SCH ×2 (09:38→23:00)
--- NOTE | 2017-03-27 09:55 | PN ---
Progress Note, Physician History of Present Illness: pulmonary alert,oob-chair,c/o cough,sob - Current Medication List Current Medications: Active Medications Acetaminophen (Tylenol -) 325 mg PO DAILY PRN Last Admin: 03/24/17 23:33 Dose: 325 mg Albuterol/Ipratropium (Duoneb -) 1 amp NEB QIDR [facility] Last Admin: 03/27/17 06:50 Dose: 1 amp Apixaban (Eliquis -) 2.5 mg PO BID [facility] Last Admin: 03/27/17 09:33 Dose: 2.5 mg Aspirin (Asa -) 81 mg PO DAILY [facility] Last Admin: 03/27/17 09:33 Dose: 81 mg Atorvastatin Calcium (Lipitor -) 10 mg PO [facility] Last Admin: 03/26/17 21:47 Dose: 10 mg Bisacodyl (Dulcolax -) 10 mg PO DAILY [facility] Last Admin: 03/27/17 09:32 Dose: 10 mg Furosemide (Lasix -) 40 mg PO DAILY [facility] Last Admin: 03/27/17 09:33 Dose: 40 mg Guaifenesin (Robitussin -) 5 ml PO QID [facility] Last Admin: 03/27/17 09:32 Dose: 5 ml Piperacillin Sod/Tazobactam (Sod 3.375 gm/ Dextrose) 100 mls @ 200 mls/hr IVPB Q8H-IV [facility] Last Admin: 03/27/17 03:53 Dose: 200 mls/hr Insulin Aspart (Novolog Vial Sliding Scale -) 1 vial SQ [facility] PRN Reason: Protocol Last Admin: 03/27/17 06:13 Dose: 2 units Insulin Detemir (Levemir Vial) 15 units SQ [facility] Last Admin: 03/26/17 21:53 Dose: Not Given Magnesium Hydroxide (Milk Of Magnesia -) 30 ml PO DAILY [facility] Last Admin: 03/26/17 09:34 Dose: 30 ml Methylprednisolone Sodium Succinate (Solu-Medrol -) 40 mg IVPUSH DAILY [facility] Last Admin: 03/27/17 09:32 Dose: 40 mg Metoprolol Tartrate (Lopressor -) 50 mg PO TID [facility] Last Admin: 03/27/17 06:13 Dose: 50 mg Polyethylene Glycol (Miralax (For Daily Use) -) 17 gm PO BID [facility] Last Admin: 03/27/17 09:38 Dose: 17 gm Sitagliptin Phosphate (Januvia -) 25 mg PO DAILY@0700 [facility] Last Admin: 03/27/17 06:13 Dose: 25 mg - Objective Vital Signs: Vital Signs Temperature 98.7 F 03/27/17 08:42 Pulse Rate 76 03/27/17 08:42 Respiratory Rate 18 03/27/17 08:42 Blood Pressure 101/65 03/27/17 08:42 O2 Sat by Pulse Oximetry (%) 96 03/27/17 08:45 Constitutional: Yes: Well Nourished, Calm Eyes: Yes: WNL HENT: Yes: WNL Neck: Yes: WNL Cardiovascular: Yes: Pulse Irregular, S1, S2 Respiratory: Yes: Diminished Gastrointestinal: Yes: Normal Bowel Sounds, Soft Extremities: Yes: WNL Edema: Yes Labs: CBC, BMP 03/27/17 05:05 03/27/17 05:05 INR, PTT INR 0.99 (0.82-1.09) 03/21/17 20:45 Assessment/Plan A/P Acute on Chronic Hypoxic and Hypercapneic Respiratory Failure New Onset Atrial Fibrillation r/o Pneumonia Acute COPD/Bronchiectasis Exacerbation Acute on Chronic Systolic Heart Failure Asbestos Exposure CAD s/p CABG Pulmonary HTN DM CKD - continue antibiotics - inhaled bronchodilators - BiPAP at night and PRN during day - O2 to keep Spo2 >90% - monitor ABG - rate control - anticoagulation - lasix - medrol q8 - monitor urine output, creatinine - chest x-ray DR HERNANDEZ Problem List - Problems (1) Acute respiratory failure with hypercapnia Code(s): J96.02 - ACUTE RESPIRATORY FAILURE WITH HYPERCAPNIA (2) Acute respiratory failure with hypoxia Code(s): J96.01 - ACUTE RESPIRATORY FAILURE WITH HYPOXIA (3) COPD with acute exacerbation Code(s): J44.1 - CHRONIC OBSTRUCTIVE PULMONARY DISEASE W (ACUTE) EXACERBATION (4) Bronchiectasis with (acute) exacerbation Code(s): J47.1 - BRONCHIECTASIS WITH (ACUTE) EXACERBATION (5) CAD (coronary artery disease) Code(s): I25.10 - ATHSCL HEART DISEASE OF [place] CORONARY ARTERY W/O ANG PCTRS Qualifiers: Coronary Disease-Associated Artery/Lesion type: bypass graft, autologous artery Associated angina: without angina Qualified Code(s): I25.810 - Atherosclerosis of coronary artery bypass graft(s) without angina pectoris (6) Pulmonary hypertension Code(s): I27.20 - PULMONARY HYPERTENSION, UNSPECIFIED (7) Acute on chronic systolic (congestive) heart failure Code(s): I50.23 - ACUTE ON CHRONIC SYSTOLIC (CONGESTIVE) HEART FAILURE
--- NOTE | 2017-03-27 10:08 | PN ---
Progress Note, Physician Chief Complaint: Sitting comfortably No acute distress C/o sore throat - Current Medication List Current Medications: Active Medications Acetaminophen (Tylenol -) 325 mg PO DAILY PRN Last Admin: 03/24/17 23:33 Dose: 325 mg Albuterol/Ipratropium (Duoneb -) 1 amp NEB QIDR [facility] Last Admin: 03/27/17 06:50 Dose: 1 amp Apixaban (Eliquis -) 2.5 mg PO BID [facility] Last Admin: 03/27/17 09:33 Dose: 2.5 mg Aspirin (Asa -) 81 mg PO DAILY [facility] Last Admin: 03/27/17 09:33 Dose: 81 mg Atorvastatin Calcium (Lipitor -) 10 mg PO [facility] Last Admin: 03/26/17 21:47 Dose: 10 mg Bisacodyl (Dulcolax -) 10 mg PO DAILY [facility] Last Admin: 03/27/17 09:32 Dose: 10 mg Furosemide (Lasix -) 40 mg PO DAILY [facility] Last Admin: 03/27/17 09:33 Dose: 40 mg Guaifenesin (Robitussin -) 5 ml PO QID [facility] Last Admin: 03/27/17 09:32 Dose: 5 ml Piperacillin Sod/Tazobactam (Sod 3.375 gm/ Dextrose) 100 mls @ 200 mls/hr IVPB Q8H-IV [facility] Last Admin: 03/27/17 03:53 Dose: 200 mls/hr Insulin Aspart (Novolog Vial Sliding Scale -) 1 vial SQ ACHS [facility] PRN Reason: Protocol Last Admin: 03/27/17 06:13 Dose: 2 units Insulin Detemir (Levemir Vial) 15 units SQ [facility] Last Admin: 03/26/17 21:53 Dose: Not Given Magnesium Hydroxide (Milk Of Magnesia -) 30 ml PO DAILY [facility] Last Admin: 03/26/17 09:34 Dose: 30 ml Methylprednisolone Sodium Succinate (Solu-Medrol -) 40 mg IVPUSH Q8H-IV [facility] Metoprolol Tartrate (Lopressor -) 50 mg PO TID [facility] Last Admin: 03/27/17 06:13 Dose: 50 mg Polyethylene Glycol (Miralax (For Daily Use) -) 17 gm PO BID [facility] Last Admin: 03/27/17 09:38 Dose: 17 gm Sitagliptin Phosphate (Januvia -) 25 mg PO DAILY@0700 [facility] Last Admin: 03/27/17 06:13 Dose: 25 mg - Objective Vital Signs: Vital Signs Temperature 98.7 F 03/27/17 08:42 Pulse Rate 76 03/27/17 08:42 Respiratory Rate 18 03/27/17 08:42 Blood Pressure 101/65 03/27/17 08:42 O2 Sat by Pulse Oximetry (%) 96 03/27/17 08:45 Constitutional: Yes: No Distress Cardiovascular: Yes: Pulse Irregular Respiratory: Yes: Other (no active wheezing or rales) Gastrointestinal: Yes: Soft Edema: Yes Edema: LLE: 1+, RLE: 1+ Labs: CBC, BMP 03/27/17 05:05 03/27/17 05:05 INR, PTT INR 0.99 (0.82-1.09) 03/21/17 20:45 Laboratory Tests 03/27/17 03/27/17 05:05 05:05 WBC 7.7 D Hct 39.6 Plt Count 223 D Sodium 138 Potassium 4.4 D Creatinine 1.7 H D - ....Imaging EKG: Image Reviewed (AF controlled. 3 beats NSVT) Problem List - Problems (1) Bronchiectasis with (acute) exacerbation Code(s): J47.1 - BRONCHIECTASIS WITH (ACUTE) EXACERBATION (2) Pneumonia Code(s): J18.9 - PNEUMONIA, UNSPECIFIED ORGANISM Qualifiers: Laterality: unspecified laterality (3) Pulmonary hypertension Code(s): I27.20 - PULMONARY HYPERTENSION, UNSPECIFIED (4) Acute respiratory failure with hypercapnia Code(s): J96.02 - ACUTE RESPIRATORY FAILURE WITH HYPERCAPNIA (5) Acute respiratory failure with hypoxia Code(s): J96.01 - ACUTE RESPIRATORY FAILURE WITH HYPOXIA (6) New onset a-fib Code(s): I48.91 - UNSPECIFIED ATRIAL FIBRILLATION (7) CAD (coronary artery disease) Code(s): I25.10 - ATHSCL HEART DISEASE OF [place] CORONARY ARTERY W/O ANG PCTRS Qualifiers: Coronary Disease-Associated Artery/Lesion type: bypass graft, autologous artery Associated angina: without angina Qualified Code(s): I25.810 - Atherosclerosis of coronary artery bypass graft(s) without angina pectoris (8) ASHD (arteriosclerotic heart disease) Code(s): I25.10 - ATHSCL HEART DISEASE OF [place] CORONARY ARTERY W/O ANG PCTRS (9) Acute kidney injury Code(s): N17.9 - ACUTE KIDNEY FAILURE, UNSPECIFIED Assessment/Plan IMP: 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 New onset AF: likely triggered by acutely worsened pulmonary status/possible PNA and mild volume overload. -Continue Eliquis adjusted for GFR, age - Cont metoprolol -Thus far tolerated well without bronchospasm 2. Acute on chronic combined systolic and diastolic CHF: -PO Lasix, renal fxn improved. -Tele monitoring -Daily deights and close monitoring of renal fxn -CPAP as needed 3. Bronchiectasis/hypoxia/fever: -Abx/CPAP, further w/u as per PMD
[2017-03-27] MEDS: INSULIN DETEMIR 100 UNITS/ML MDV SQ SCH (22:57)
[2017-03-27] MEDS: ATORVASTATIN CA 10 MG TABLET (FP) PO SCH (23:00)
[2017-03-28] MEDS: PIPERACILLIN/TAZOB 3.375 GM 3.375 GM in DEXTROSE 5%-WATER - 100 ML IVPB SCH ×3 (02:26→17:02)
[2017-03-28] MEDS: methylPREDNISolone NA SUCC 40 MG/1 ML VIAL IVPUSH SCH ×3 (02:30→17:02)
[2017-03-28] MEDS: sitaGLIPtin PHOSPHATE 25 MG TABLET (FP) PO SCH (06:16)
[2017-03-28] MEDS: INSULIN SLIDING SCALE (NOVOLOG) 1 VIAL SQ SCH ×4 (06:16→21:39)
[2017-03-28] MEDS: METOPROLOL TARTRATE 50 MG TABLET (FP) PO SCH ×3 (06:16→21:39)
[2017-03-28] MEDS: ALBUTEROL SO4 2.5/IPRATROPIUM 0.5 INH SOL 3 ML VIAL.NEB. NEB SCH ×3 (06:54→16:35)
--- NOTE | 2017-03-28 09:06 | PN ---
Progress Note, Physician Chief Complaint: C/o cough with blood in the sputum, weakness. Son Sunday and at the bedside. History of Present Illness: Persistent 6.7cm left basilar atelectasis/consolidation. CABG ASHD. DM type on Levemir/Januvia.. CRI. 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 JUAN-at nights using CPAP. - Current Medication List Current Medications: Active Medications Acetaminophen (Tylenol -) 325 mg PO DAILY PRN Last Admin: 03/24/17 23:33 Dose: 325 mg Albuterol/Ipratropium (Duoneb -) 1 amp NEB QIDR [facility] Last Admin: 03/28/17 06:54 Dose: 1 amp Atorvastatin Calcium (Lipitor -) 10 mg PO [facility] Last Admin: 03/27/17 23:00 Dose: 10 mg Bisacodyl (Dulcolax -) 10 mg PO DAILY [facility] Last Admin: 03/27/17 09:32 Dose: 10 mg Furosemide (Lasix Injection -) 40 mg IVPUSH BID@0600,1400 [facility] Guaifenesin (Robitussin -) 5 ml PO QID [facility] Last Admin: 03/27/17 22:58 Dose: 5 ml Piperacillin Sod/Tazobactam (Sod 3.375 gm/ Dextrose) 100 mls @ 200 mls/hr IVPB Q8H-IV [facility] Last Admin: 03/28/17 02:26 Dose: 200 mls/hr Insulin Aspart (Novolog Vial Sliding Scale -) 1 vial SQ [facility] PRN Reason: Protocol Last Admin: 03/28/17 06:16 Dose: Not Given Insulin Detemir (Levemir Vial) 15 units SQ [facility] Last Admin: 03/27/17 22:57 Dose: 15 units Magnesium Hydroxide (Milk Of Magnesia -) 30 ml PO DAILY [facility] Last Admin: 03/27/17 09:23 Dose: 30 ml Methylprednisolone Sodium Succinate (Solu-Medrol -) 40 mg IVPUSH Q8H-IV [facility] Last Admin: 03/28/17 02:30 Dose: 40 mg Metoprolol Tartrate (Lopressor -) 50 mg PO TID [facility] Last Admin: 03/28/17 06:16 Dose: 50 mg Polyethylene Glycol (Miralax (For Daily Use) -) 17 gm PO BID [facility] Last Admin: 03/27/17 23:00 Dose: 17 gm Sitagliptin Phosphate (Januvia -) 25 mg PO DAILY@0700 [facility] Last Admin: 03/28/17 06:16 Dose: 25 mg Spironolactone (Aldactone -) 25 mg PO DAILY [facility] - Objective Vital Signs: Vital Signs Temperature 97.4 F L 03/28/17 06:00 Pulse Rate 96 H 03/28/17 06:00 Respiratory Rate 22 03/28/17 06:00 Blood Pressure 155/95 03/28/17 06:00 O2 Sat by Pulse Oximetry (%) 95 03/27/17 20:35 Constitutional: Yes: Anxious, Moderate Distress, Obese Eyes: Yes: Conjunctiva Clear, EOM Intact HENT: Yes: Atraumatic, Normocephalic Neck: Yes: Supple, Trachea Midline Cardiovascular: Yes: Pulse Irregular Respiratory: Yes: Cough, On Nasal O2, Rhonchi, SOB, SOB on Exertion, Tachypnea, Wheezes, Other (Hemophthysis) Gastrointestinal: Yes: Normal Bowel Sounds, Soft, Abdomen, Obese ...Rectal Exam: Yes: Deferred Genitourinary: No: Anuria, Bladder Distention Musculoskeletal: Yes: WNL Extremities: No: Calf Tenderness, Cold, Cyanosis Edema: Yes (increased pretibial edema) Edema: LLE: 2+, RLE: 2+ Peripheral Pulses WNL: No Integumentary: Yes: WNL Neurological: Yes: Alert, Oriented. No: Aphasia, Asterixis, Ataxia, Confusion, Seizure ...Motor Strength: WNL Psychiatric: Yes: Alert, Oriented. No: Agitated, Suicidal Ideation Labs: CBC, BMP 03/27/17 05:05 03/27/17 05:05 INR, PTT INR 0.99 (0.82-1.09) 03/21/17 20:45 Problem List - Problems (1) Bronchiectasis with (acute) exacerbation Assessment/Plan: IV Abx started, blood cx Code(s): J47.1 - BRONCHIECTASIS WITH (ACUTE) EXACERBATION (2) COPD (chronic obstructive pulmonary disease) with acute bronchitis Assessment/Plan: Improved. Now 95% on 3 L/min O2 Continue inh, nebs, ABX Code(s): J44.0 - CHRONIC OBSTRUCTIVE PULMON DISEASE W ACUTE LOWER RESP INFCT; J20.9 - ACUTE BRONCHITIS, UNSPECIFIED (3) New onset a-fib Assessment/Plan: Hold ELIQUIS., rate control- mETOPROLOL 50 MG tid Code(s): I48.91 - UNSPECIFIED ATRIAL FIBRILLATION (4) Pneumonia Assessment/Plan: Continue IV Abx, follow fever, wbc, cxr, pulm consult Code(s): J18.9 - PNEUMONIA, UNSPECIFIED ORGANISM Qualifiers: Laterality: unspecified laterality (5) Pulmonary hypertension Assessment/Plan: Probably combination of JUAN, class 2 and class 3 PAH BIPAP Continue IV lasix. Code(s): I27.20 - PULMONARY HYPERTENSION, UNSPECIFIED (6) Respiratory failure with hypercapnia Assessment/Plan: Continue BIPAP/ [id number] PULSE OX Code(s): J96.92 - RESPIRATORY FAILURE, UNSPECIFIED WITH HYPERCAPNIA Qualifiers: Chronicity: acute Qualified Code(s): J96.02 - Acute respiratory failure with hypercapnia (7) CHF exacerbation Assessment/Plan: Continue IV diuretics. Lasix 40 BID Add Spironolactone. Code(s): I50.9 - HEART FAILURE, UNSPECIFIED Qualifiers: Congestive heart failure type: combined Qualified Code(s): I50.43 - Acute on chronic combined systolic (congestive) and diastolic (congestive) heart failure (8) Pleural effusion Assessment/Plan: Increased effusion. CHF, pleural disease, localized effusion. Code(s): J90 - PLEURAL EFFUSION, NOT ELSEWHERE CLASSIFIED (9) Hemoptysis Assessment/Plan: Likely related to use of Eliquis/ASA in Acute bronchitis/ COPD/PNA/infected bronchiectasis. Hold A/C CXR Code(s): R04.2 - HEMOPTYSIS
[2017-03-28] MEDS: SPIRONOLACTONE 25 MG TABLET (FP) PO SCH (09:58)
[2017-03-28] MEDS: BISACODYL 5 MG TABLET.DR (FP) PO SCH (09:58)
[2017-03-28] MEDS: MAGNESIUM HYDROX 2400MG/30ML ORAL SUSPENSION 30 ML CUP PO SCH (09:58)
[2017-03-28] MEDS: guaiFENesin 200 MG/10 ML 10 ML UNIT-DOSE CUPS PO SCH ×4 (09:59→21:39)
[2017-03-28] MEDS: POLYETHYLENE GLYCOL 3350 119 GM BTL PO SCH ×2 (09:59→21:43)
--- NOTE | 2017-03-28 11:32 | PN ---
Progress Note, Physician History of Present Illness: seen and examined today in nad. no overnight events. no new complaints. - Current Medication List Current Medications: Active Medications Acetaminophen (Tylenol -) 325 mg PO DAILY PRN Last Admin: 03/24/17 23:33 Dose: 325 mg Albuterol/Ipratropium (Duoneb -) 1 amp NEB QIDR [facility] Last Admin: 03/28/17 11:15 Dose: 1 amp Atorvastatin Calcium (Lipitor -) 10 mg PO [facility] Last Admin: 03/27/17 23:00 Dose: 10 mg Bisacodyl (Dulcolax -) 10 mg PO DAILY [facility] Last Admin: 03/28/17 09:58 Dose: 10 mg Furosemide (Lasix Injection -) 40 mg IVPUSH BID@0600,1400 [facility] Guaifenesin (Robitussin -) 5 ml PO QID [facility] Last Admin: 03/28/17 09:59 Dose: 5 ml Piperacillin Sod/Tazobactam (Sod 3.375 gm/ Dextrose) 100 mls @ 200 mls/hr IVPB Q8H-IV [facility] Last Admin: 03/28/17 09:57 Dose: 200 mls/hr Insulin Aspart (Novolog Vial Sliding Scale -) 1 vial SQ [facility] PRN Reason: Protocol Last Admin: 03/28/17 06:16 Dose: Not Given Insulin Detemir (Levemir Vial) 15 units SQ [facility] Last Admin: 03/27/17 22:57 Dose: 15 units Magnesium Hydroxide (Milk Of Magnesia -) 30 ml PO DAILY [facility] Last Admin: 03/28/17 09:58 Dose: 30 ml Methylprednisolone Sodium Succinate (Solu-Medrol -) 40 mg IVPUSH Q8H-IV [facility] Last Admin: 03/28/17 09:58 Dose: 40 mg Metoprolol Tartrate (Lopressor -) 50 mg PO TID [facility] Last Admin: 03/28/17 06:16 Dose: 50 mg Polyethylene Glycol (Miralax (For Daily Use) -) 17 gm PO BID [facility] Last Admin: 03/28/17 09:59 Dose: 17 gm Sitagliptin Phosphate (Januvia -) 25 mg PO DAILY@0700 [facility] Last Admin: 03/28/17 06:16 Dose: 25 mg Spironolactone (Aldactone -) 25 mg PO DAILY [facility] Last Admin: 03/28/17 09:58 Dose: 25 mg - Objective Vital Signs: Vital Signs Temperature 97.4 F L 03/28/17 06:00 Pulse Rate 74 03/28/17 11:22 Respiratory Rate 22 03/28/17 06:00 Blood Pressure 155/95 03/28/17 06:00 O2 Sat by Pulse Oximetry (%) 94 L 03/28/17 11:22 Constitutional: Yes: No Distress, Calm, Obese Eyes: Yes: Conjunctiva Clear, EOM Intact, PERRL HENT: Yes: Atraumatic, Normocephalic Neck: Yes: Supple, Trachea Midline Cardiovascular: Yes: Pulse Irregular, S1, S2. No: Regular Rate and Rhythm, Bradycardia, Tachycardia, Bruit, JVD, Gallop, Murmur, Rub, S3, S4, Varicosities Respiratory: Yes: Regular, Diminished, On Nasal O2, Rhonchi. No: Rales, SOB, Wheezes Gastrointestinal: Yes: Normal Bowel Sounds, Soft. 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 New onset AF-HR is adequately controlled currently -pt with hemoptysis, Eliquis on hold for now -Cont metoprolol tartrate 50mg tid for now -cont tele monitoring 2. Acute on chronic combined systolic and diastolic CHF: -to cont IV Lasix for now -monitor strict I/Os, daily weights, bun/creat, electrolytes and replete as needed -BIPAP as needed 3. Bronchiectasis/hypoxia/fever/hemoptysis: -receiving Abx and BIPAP as needed, currently supplemental O2 via nc 4.CAD-h/o CABG-currently stable -ASA currently on hold due to hemoptysis -cont bblocker and statin
--- NOTE | 2017-03-28 11:37 | PN ---
Progress Note, Physician History of Present Illness: PULMONARY ALERT,OOB-CHAIR,LESS DYSPNEIC,+ COUGH,TRACE HEMOPTYSIS - Current Medication List Current Medications: Active Medications Acetaminophen (Tylenol -) 325 mg PO DAILY PRN Last Admin: 03/24/17 23:33 Dose: 325 mg Albuterol/Ipratropium (Duoneb -) 1 amp NEB QIDR [facility] Last Admin: 03/28/17 11:15 Dose: 1 amp Atorvastatin Calcium (Lipitor -) 10 mg PO [facility] Last Admin: 03/27/17 23:00 Dose: 10 mg Bisacodyl (Dulcolax -) 10 mg PO DAILY [facility] Last Admin: 03/28/17 09:58 Dose: 10 mg Furosemide (Lasix Injection -) 40 mg IVPUSH BID@0600,1400 [facility] Guaifenesin (Robitussin -) 5 ml PO QID [facility] Last Admin: 03/28/17 09:59 Dose: 5 ml Piperacillin Sod/Tazobactam (Sod 3.375 gm/ Dextrose) 100 mls @ 200 mls/hr IVPB Q8H-IV [facility] Last Admin: 03/28/17 09:57 Dose: 200 mls/hr Insulin Aspart (Novolog Vial Sliding Scale -) 1 vial SQ ACHS [facility] PRN Reason: Protocol Last Admin: 03/28/17 06:16 Dose: Not Given Insulin Detemir (Levemir Vial) 15 units SQ [facility] Last Admin: 03/27/17 22:57 Dose: 15 units Magnesium Hydroxide (Milk Of Magnesia -) 30 ml PO DAILY [facility] Last Admin: 03/28/17 09:58 Dose: 30 ml Methylprednisolone Sodium Succinate (Solu-Medrol -) 40 mg IVPUSH Q8H-IV [facility] Last Admin: 03/28/17 09:58 Dose: 40 mg Metoprolol Tartrate (Lopressor -) 50 mg PO TID [facility] Last Admin: 03/28/17 06:16 Dose: 50 mg Polyethylene Glycol (Miralax (For Daily Use) -) 17 gm PO BID [facility] Last Admin: 03/28/17 09:59 Dose: 17 gm Sitagliptin Phosphate (Januvia -) 25 mg PO DAILY@0700 [facility] Last Admin: 03/28/17 06:16 Dose: 25 mg Spironolactone (Aldactone -) 25 mg PO DAILY [facility] Last Admin: 03/28/17 09:58 Dose: 25 mg - Objective Vital Signs: Vital Signs Temperature 97.4 F L 03/28/17 06:00 Pulse Rate 74 03/28/17 11:22 Respiratory Rate 22 03/28/17 06:00 Blood Pressure 155/95 03/28/17 06:00 O2 Sat by Pulse Oximetry (%) 94 L 03/28/17 11:22 Constitutional: Yes: Well Nourished, Calm Eyes: Yes: WNL HENT: Yes: WNL Neck: Yes: WNL Cardiovascular: Yes: Regular Rate and Rhythm, S1, S2 Respiratory: Yes: Rales (BIBASILAR RALES) Gastrointestinal: Yes: Normal Bowel Sounds, Soft Extremities: Yes: WNL Edema: Yes Labs: CBC, BMP 03/27/17 05:05 03/27/17 05:05 INR, PTT INR 0.99 (0.82-1.09) 03/21/17 20:45 Assessment/Plan A/P Acute on Chronic Hypoxic and Hypercapneic Respiratory Failure New Onset Atrial Fibrillation r/o Pneumonia Acute COPD/Bronchiectasis Exacerbation Acute on Chronic Systolic Heart Failure Asbestos Exposure CAD s/p CABG Pulmonary HTN DM CKD - continue antibiotics - inhaled bronchodilators - BiPAP at night and PRN during day - O2 to keep Spo2 >90% - rate control - anticoagulation on hold secondary to hemoptyssi - lasix - medrol q8 - monitor urine output, creatinine - f/u chest x-rays - Antitussives - quantify hemoptysis DR HERNANDEZ Problem List - Problems (1) Acute respiratory failure with hypercapnia Code(s): J96.02 - ACUTE RESPIRATORY FAILURE WITH HYPERCAPNIA (2) Acute respiratory failure with hypoxia Code(s): J96.01 - ACUTE RESPIRATORY FAILURE WITH HYPOXIA (3) COPD with acute exacerbation Code(s): J44.1 - CHRONIC OBSTRUCTIVE PULMONARY DISEASE W (ACUTE) EXACERBATION (4) Bronchiectasis with (acute) exacerbation Code(s): J47.1 - BRONCHIECTASIS WITH (ACUTE) EXACERBATION (5) CAD (coronary artery disease) Code(s): I25.10 - ATHSCL HEART DISEASE OF [place] CORONARY ARTERY W/O ANG PCTRS Qualifiers: Coronary Disease-Associated Artery/Lesion type: bypass graft, autologous artery Associated angina: without angina Qualified Code(s): I25.810 - Atherosclerosis of coronary artery bypass graft(s) without angina pectoris (6) Pulmonary hypertension Code(s): I27.20 - PULMONARY HYPERTENSION, UNSPECIFIED (7) Acute on chronic systolic (congestive) heart failure Code(s): I50.23 - ACUTE ON CHRONIC SYSTOLIC (CONGESTIVE) HEART FAILURE
[2017-03-28] MEDS ORDERED: INSULIN (NOVOLOG) ASPART 100 UNITS/ML 10ML VIAL ONE (12:19)
--- NOTE | 2017-03-28 14:02 | PN ---
Progress Note, Physician History of Present Illness: OOB in chair Reports episodes of hemoptysis Appears slightly dyspneic at rest in chair on nasal cannula Afebrile BC no growth Sputum c/s normal ponce - Current Medication List Current Medications: Active Medications Acetaminophen (Tylenol -) 325 mg PO DAILY PRN Last Admin: 03/24/17 23:33 Dose: 325 mg Albuterol/Ipratropium (Duoneb -) 1 amp NEB QIDR [facility] Last Admin: 03/28/17 11:15 Dose: 1 amp Atorvastatin Calcium (Lipitor -) 10 mg PO HS [facility] Last Admin: 03/27/17 23:00 Dose: 10 mg Bisacodyl (Dulcolax -) 10 mg PO DAILY [facility] Last Admin: 03/28/17 09:58 Dose: 10 mg Furosemide (Lasix Injection -) 40 mg IVPUSH BID@0600,1400 [facility] Guaifenesin (Robitussin -) 5 ml PO QID [facility] Last Admin: 03/28/17 09:59 Dose: 5 ml Piperacillin Sod/Tazobactam (Sod 3.375 gm/ Dextrose) 100 mls @ 200 mls/hr IVPB Q8H-IV [facility] Last Admin: 03/28/17 09:57 Dose: 200 mls/hr Insulin Aspart (Novolog Vial Sliding Scale -) 1 vial SQ [facility] PRN Reason: Protocol Last Admin: 03/28/17 12:21 Dose: 2 units Insulin Detemir (Levemir Vial) 15 units SQ [facility] Last Admin: 03/27/17 22:57 Dose: 15 units Magnesium Hydroxide (Milk Of Magnesia -) 30 ml PO DAILY [facility] Last Admin: 03/28/17 09:58 Dose: 30 ml Methylprednisolone Sodium Succinate (Solu-Medrol -) 40 mg IVPUSH Q8H-IV [facility] Last Admin: 03/28/17 09:58 Dose: 40 mg Metoprolol Tartrate (Lopressor -) 50 mg PO TID [facility] Last Admin: 03/28/17 06:16 Dose: 50 mg Polyethylene Glycol (Miralax (For Daily Use) -) 17 gm PO BID [facility] Last Admin: 03/28/17 09:59 Dose: 17 gm Sitagliptin Phosphate (Januvia -) 25 mg PO DAILY@0700 [facility] Last Admin: 03/28/17 06:16 Dose: 25 mg Spironolactone (Aldactone -) 25 mg PO DAILY [facility] Last Admin: 03/28/17 09:58 Dose: 25 mg - Objective Vital Signs: Vital Signs Temperature 98 F 03/28/17 10:00 Pulse Rate 74 03/28/17 11:22 Respiratory Rate 20 03/28/17 10:00 Blood Pressure 128/78 03/28/17 10:00 O2 Sat by Pulse Oximetry (%) 94 L 03/28/17 11:22 Constitutional: Yes: No Distress, Obese Eyes: Yes: Conjunctiva Clear Cardiovascular: Yes: Regular Rate and Rhythm, S1, S2 Respiratory: Yes: Diminished Gastrointestinal: Yes: Normal Bowel Sounds, Soft, Abdomen, Obese. No: Tenderness Edema: Yes Edema: LLE: 2+, RLE: 2+ Labs: CBC, BMP 03/27/17 05:05 03/27/17 05:05 INR, PTT INR 0.99 (0.82-1.09) 03/21/17 20:45 Assessment/Plan Acute exacerbation COPD/ Bronchiectasis Hemoptysis HCAP New onset Afib Continue empiric zosyn Bronchodilators, steroids, diuretic
[2017-03-28] MEDS: FUROSEMIDE 40 MG/4 ML INJECTABLE VIAL IVPUSH SCH (14:28)
[2017-03-28] MEDS: ATORVASTATIN CA 10 MG TABLET (FP) PO SCH (21:39)
[2017-03-28] MEDS: INSULIN DETEMIR 100 UNITS/ML MDV SQ SCH (21:39)
[2017-03-29] MEDS: ALBUTEROL SO4 2.5/IPRATROPIUM 0.5 INH SOL 3 ML VIAL.NEB. NEB SCH ×5 (00:09→20:35)
[2017-03-29] MEDS ORDERED: PT OWN MED DRAWER 7, Y5N ONE ×2 (02:56→17:08)
[2017-03-29] MEDS: methylPREDNISolone NA SUCC 40 MG/1 ML VIAL IVPUSH SCH ×3 (03:03→23:06)
[2017-03-29] MEDS: PIPERACILLIN/TAZOB 3.375 GM 3.375 GM in DEXTROSE 5%-WATER - 100 ML IVPB SCH ×3 (03:03→17:20)
[2017-03-29] MEDS: FUROSEMIDE 40 MG/4 ML INJECTABLE VIAL IVPUSH SCH ×2 (06:15→13:26)
[2017-03-29] MEDS: INSULIN SLIDING SCALE (NOVOLOG) 1 VIAL SQ SCH ×4 (06:16→23:06)
[2017-03-29] MEDS: sitaGLIPtin PHOSPHATE 25 MG TABLET (FP) PO SCH (06:16)
[2017-03-29] MEDS: METOPROLOL TARTRATE 50 MG TABLET (FP) PO SCH ×3 (06:16→23:06)
[2017-03-29 07:40] LABS: ALBUMIN 3.2 g/dl (3.4-5.0); BLOOD UREA NITROGEN 49 mg/dL (7-18); CALCIUM 8.1 mg/dL (8.5-10.1); CHLORIDE 90 mmol/L (98-107); GLUCOSE,RANDOM 90 mg/dL (74-106); POTASSIUM 4.2 mmol/L (3.5-5.1); SGOT/AST 42 U/L (15-37); SGPT/ALT 121 U/L (12-78); SODIUM 135 mmol/L (136-145)
[2017-03-29 07:42] LABS: ALK PHOS 59 U/L (45-117); BILIRUBIN,TOTAL 0.6 mg/dL (0.2-1.0); CREATININE 1.8 mg/dL (0.7-1.3); TOT PROT 6.4 g/dl (6.4-8.2)
[2017-03-29 07:44] LABS: BASO % 0.2 % (0-2.0); EOS % 0.2 % (0-4.5); HEMATOCRIT 39.7 % (35.4-49); HEMOGLOBIN 12.7 GM/dL (11.7-16.9); LYMPH % 4.2 % (8-40); MCH 30.3 pg (25.7-33.7); MCHC 32.1 g/dl (32.0-35.9); MEAN CELL VOLUME 94.3 fl (80-96); MEAN PLT VOLUME 9.1 fl (7.5-11.1); MONO % 4.1 % (3.8-10.2); NEUT % 91.3 % (42.8-82.8); PLATELET COUNT 242 K/MM3 (134-434); WHITE BLOOD COUNT 10.7 K/mm3 (4.0-10.0)
[2017-03-29] MEDS: POLYETHYLENE GLYCOL 3350 119 GM BTL PO SCH ×3 (09:09→23:13)
[2017-03-29] MEDS: MAGNESIUM HYDROX 2400MG/30ML ORAL SUSPENSION 30 ML CUP PO SCH (09:09)
[2017-03-29] MEDS: guaiFENesin 200 MG/10 ML 10 ML UNIT-DOSE CUPS PO SCH ×4 (09:09→23:06)
[2017-03-29] MEDS: SPIRONOLACTONE 25 MG TABLET (FP) PO SCH (09:10)
[2017-03-29] MEDS: BISACODYL 5 MG TABLET.DR (FP) PO SCH (09:11)
--- NOTE | 2017-03-29 09:34 | PN ---
Progress Note, Physician Chief Complaint: sitting up, alert no new complaints TELE: shows rate controlled AF - Current Medication List Current Medications: Active Medications Acetaminophen (Tylenol -) 325 mg PO DAILY PRN Last Admin: 03/24/17 23:33 Dose: 325 mg Albuterol/Ipratropium (Duoneb -) 1 amp NEB RQID [facility] Atorvastatin Calcium (Lipitor -) 10 mg PO [facility] Last Admin: 03/28/17 21:39 Dose: 10 mg Bisacodyl (Dulcolax -) 10 mg PO DAILY [facility] Last Admin: 03/29/17 09:11 Dose: 10 mg Furosemide (Lasix Injection -) 40 mg IVPUSH BID@0600,1400 [facility] Last Admin: 03/29/17 06:15 Dose: 40 mg Guaifenesin (Robitussin -) 5 ml PO QID [facility] Last Admin: 03/29/17 09:09 Dose: 5 ml Piperacillin Sod/Tazobactam (Sod 3.375 gm/ Dextrose) 100 mls @ 200 mls/hr IVPB Q8H-IV [facility] Last Admin: 03/29/17 09:10 Dose: 200 mls/hr Insulin Aspart (Novolog Vial Sliding Scale -) 1 vial SQ [facility] PRN Reason: Protocol Last Admin: 03/29/17 06:16 Dose: Not Given Insulin Detemir (Levemir Vial) 15 units SQ [facility] Last Admin: 03/28/17 21:39 Dose: 15 units Magnesium Hydroxide (Milk Of Magnesia -) 30 ml PO DAILY [facility] Last Admin: 03/29/17 09:09 Dose: 30 ml Methylprednisolone Sodium Succinate (Solu-Medrol -) 40 mg IVPUSH Q8H-IV [facility] Last Admin: 03/29/17 09:10 Dose: 40 mg Metoprolol Tartrate (Lopressor -) 50 mg PO TID [facility] Last Admin: 03/29/17 06:16 Dose: 50 mg Polyethylene Glycol (Miralax (For Daily Use) -) 17 gm PO BID [facility] Last Admin: 03/29/17 09:09 Dose: 17 gm Sitagliptin Phosphate (Januvia -) 25 mg PO DAILY@0700 [facility] Last Admin: 03/29/17 06:16 Dose: 25 mg Spironolactone (Aldactone -) 25 mg PO DAILY [facility] Last Admin: 03/29/17 09:10 Dose: 25 mg - Objective Vital Signs: Vital Signs Temperature 98.2 F 03/29/17 08:22 Pulse Rate 82 03/29/17 08:22 Respiratory Rate 22 03/29/17 08:29 Blood Pressure 127/68 03/29/17 08:22 O2 Sat by Pulse Oximetry (%) 96 03/29/17 08:29 Constitutional: Yes: Calm Cardiovascular: Yes: Pulse Irregular Respiratory: Yes: Rhonchi Gastrointestinal: Yes: Soft, Abdomen, Obese Edema: Yes Edema: LLE: 2+, RLE: 2+ Neurological: Yes: Alert, Oriented Labs: CBC, BMP 03/29/17 06:50 03/29/17 06:50 INR, PTT INR 0.99 (0.82-1.09) 03/21/17 20:45 Laboratory Tests 03/29/17 03/29/17 06:50 06:50 WBC 10.7 H D Hgb 12.7 Plt Count 242 Potassium 4.2 Creatinine 1.8 H - ....Imaging EKG: Image Reviewed Problem List - Problems (1) Bronchiectasis with (acute) exacerbation Code(s): J47.1 - BRONCHIECTASIS WITH (ACUTE) EXACERBATION (2) Pneumonia Code(s): J18.9 - PNEUMONIA, UNSPECIFIED ORGANISM Qualifiers: Laterality: unspecified laterality (3) Pulmonary hypertension Code(s): I27.20 - PULMONARY HYPERTENSION, UNSPECIFIED (4) Acute respiratory failure with hypercapnia Code(s): J96.02 - ACUTE RESPIRATORY FAILURE WITH HYPERCAPNIA (5) Acute respiratory failure with hypoxia Code(s): J96.01 - ACUTE RESPIRATORY FAILURE WITH HYPOXIA (6) New onset a-fib Code(s): I48.91 - UNSPECIFIED ATRIAL FIBRILLATION (7) CAD (coronary artery disease) Code(s): I25.10 - ATHSCL HEART DISEASE OF [place] CORONARY ARTERY W/O ANG PCTRS Qualifiers: Coronary Disease-Associated Artery/Lesion type: bypass graft, autologous artery Associated angina: without angina Qualified Code(s): I25.810 - Atherosclerosis of coronary artery bypass graft(s) without angina pectoris (8) ASHD (arteriosclerotic heart disease) Code(s): I25.10 - ATHSCL HEART DISEASE OF [place] CORONARY ARTERY W/O ANG PCTRS (9) Acute kidney injury Code(s): N17.9 - ACUTE KIDNEY FAILURE, UNSPECIFIED Assessment/Plan Assessment/Plan IMP: 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 New onset AF-HR is adequately controlled currently -pt with hemoptysis, Eliquis on hold for now -Cont metoprolol tartrate 50mg tid for now -cont tele monitoring 2. Acute on chronic combined systolic and diastolic CHF: -to cont IV Lasix for now; had become more edematous over last few days -monitor strict I/Os, daily weights, bun/creat, electrolytes and replete as needed -BIPAP as needed 3. Bronchiectasis/hypoxia/fever/hemoptysis: -receiving Abx and BIPAP as needed, currently supplemental O2 via nc 4.CAD-h/o CABG-currently stable -ASA currently on hold due to hemoptysis -cont bblocker and statin
[2017-03-29 09:40] LABS: ANION GAP 3 (8-16); CO2 42 mmol/L (21-32)
--- NOTE | 2017-03-29 10:42 | PN ---
Progress Note, Physician Chief Complaint: C/o swelling of the LE, cough dark blood. Less lethargic. History of Present Illness: Persistent 6.7cm left basilar atelectasis/consolidation. CABG ASHD. DM type on Levemir/Januvia.. CRI. 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 JUAN-at nights using CPAP. - Current Medication List Current Medications: Active Medications Acetaminophen (Tylenol -) 325 mg PO DAILY PRN Last Admin: 03/24/17 23:33 Dose: 325 mg Albuterol/Ipratropium (Duoneb -) 1 amp NEB RQID [facility] Atorvastatin Calcium (Lipitor -) 10 mg PO [facility] Last Admin: 03/28/17 21:39 Dose: 10 mg Bisacodyl (Dulcolax -) 10 mg PO DAILY [facility] Last Admin: 03/29/17 09:11 Dose: 10 mg Furosemide (Lasix Injection -) 40 mg IVPUSH BID@0600,1400 [facility] Last Admin: 03/29/17 06:15 Dose: 40 mg Guaifenesin (Robitussin -) 5 ml PO QID [facility] Last Admin: 03/29/17 09:09 Dose: 5 ml Piperacillin Sod/Tazobactam (Sod 3.375 gm/ Dextrose) 100 mls @ 200 mls/hr IVPB Q8H-IV [facility] Last Admin: 03/29/17 09:10 Dose: 200 mls/hr Insulin Aspart (Novolog Vial Sliding Scale -) 1 vial SQ ACHS [facility] PRN Reason: Protocol Last Admin: 03/29/17 06:16 Dose: Not Given Insulin Detemir (Levemir Vial) 15 units SQ [facility] Last Admin: 03/28/17 21:39 Dose: 15 units Magnesium Hydroxide (Milk Of Magnesia -) 30 ml PO DAILY [facility] Last Admin: 03/29/17 09:09 Dose: 30 ml Methylprednisolone Sodium Succinate (Solu-Medrol -) 40 mg IVPUSH Q8H-IV [facility] Last Admin: 03/29/17 09:10 Dose: 40 mg Metoprolol Tartrate (Lopressor -) 50 mg PO TID [facility] Last Admin: 03/29/17 06:16 Dose: 50 mg Polyethylene Glycol (Miralax (For Daily Use) -) 17 gm PO BID [facility] Last Admin: 03/29/17 09:09 Dose: 17 gm Sitagliptin Phosphate (Januvia -) 25 mg PO DAILY@0700 [facility] Last Admin: 03/29/17 06:16 Dose: 25 mg Spironolactone (Aldactone -) 25 mg PO DAILY [facility] Last Admin: 03/29/17 09:10 Dose: 25 mg - Objective Vital Signs: Vital Signs Temperature 98.2 F 03/29/17 08:22 Pulse Rate 82 03/29/17 08:22 Respiratory Rate 22 03/29/17 08:29 Blood Pressure 127/68 03/29/17 08:22 O2 Sat by Pulse Oximetry (%) 96 03/29/17 08:29 Constitutional: Yes: Anxious, Moderate Distress Eyes: Yes: Conjunctiva Clear, EOM Intact HENT: Yes: Atraumatic, Normocephalic. No: Drooling Neck: Yes: Supple, Trachea Midline Cardiovascular: Yes: Pulse Irregular, S1, S2 Respiratory: Yes: Cough, Diminished, On Nasal O2, Rhonchi, SOB, SOB on Exertion Gastrointestinal: Yes: Normal Bowel Sounds, Soft, Abdomen, Obese. No: Ascites, Palpable Mass, Tenderness ...Rectal Exam: Yes: Deferred Genitourinary: No: Anuria, Bladder Distention Breast(s): Yes: WNL Extremities: No: Calf Tenderness, Cold, Cyanosis Edema: Yes Edema: LLE: 2+, RLE: 2+ Integumentary: Yes: WNL Neurological: Yes: Alert, Oriented. No: Aphasia ...Motor Strength: WNL Psychiatric: Yes: WNL Labs: CBC, BMP 03/29/17 06:50 03/29/17 06:50 INR, PTT INR 0.99 (0.82-1.09) 03/21/17 20:45 Problem List - Problems (1) Bronchiectasis with (acute) exacerbation Assessment/Plan: IV Abx started, blood cx Code(s): J47.1 - BRONCHIECTASIS WITH (ACUTE) EXACERBATION (2) COPD (chronic obstructive pulmonary disease) with acute bronchitis Assessment/Plan: Improved. Now 95% on 3 L/min O2 Continue inh, nebs, ABX Code(s): J44.0 - CHRONIC OBSTRUCTIVE PULMON DISEASE W ACUTE LOWER RESP INFCT; J20.9 - ACUTE BRONCHITIS, UNSPECIFIED (3) New onset a-fib Assessment/Plan: Hold ELIQUIS., rate control- mETOPROLOL 50 MG tid Code(s): I48.91 - UNSPECIFIED ATRIAL FIBRILLATION (4) Pneumonia Assessment/Plan: Continue IV Abx, follow fever, wbc, cxr, pulm consult Code(s): J18.9 - PNEUMONIA, UNSPECIFIED ORGANISM Qualifiers: Laterality: unspecified laterality (5) Pulmonary hypertension Assessment/Plan: Probably combination of JUAN, class 2 and class 3 PAH BIPAP Continue IV lasix. Code(s): I27.20 - PULMONARY HYPERTENSION, UNSPECIFIED (6) Respiratory failure with hypercapnia Assessment/Plan: Continue BIPAP/ [id number] PULSE OX Code(s): J96.92 - RESPIRATORY FAILURE, UNSPECIFIED WITH HYPERCAPNIA Qualifiers: Chronicity: acute Qualified Code(s): J96.02 - Acute respiratory failure with hypercapnia (7) CHF exacerbation Assessment/Plan: Continue IV diuretics. Lasix 40 BID IV Add Spironolactone. Code(s): I50.9 - HEART FAILURE, UNSPECIFIED Qualifiers: Congestive heart failure type: combined Qualified Code(s): I50.43 - Acute on chronic combined systolic (congestive) and diastolic (congestive) heart failure (8) Pleural effusion Assessment/Plan: Increased effusion. CHF, pleural disease, localized effusion. Code(s): J90 - PLEURAL EFFUSION, NOT ELSEWHERE CLASSIFIED (9) Hemoptysis Assessment/Plan: sunsided Restart a/c. Hold ASA Code(s): R04.2 - HEMOPTYSIS
--- NOTE | 2017-03-29 11:10 | PN ---
Progress Note, Physician History of Present Illness: PULMONARY ALERT,OOB-CHAIR,STILL C/O SOB,+HEMOPTYSIS ( [place]ARK HEME) - Current Medication List Current Medications: Active Medications Acetaminophen (Tylenol -) 325 mg PO DAILY PRN Last Admin: 03/24/17 23:33 Dose: 325 mg Albuterol/Ipratropium (Duoneb -) 1 amp NEB RQID [facility] Apixaban (Eliquis -) 2.5 mg PO BID [facility] Atorvastatin Calcium (Lipitor -) 10 mg PO HS [facility] Last Admin: 03/28/17 21:39 Dose: 10 mg Bisacodyl (Dulcolax -) 10 mg PO DAILY [facility] Last Admin: 03/29/17 09:11 Dose: 10 mg Furosemide (Lasix Injection -) 40 mg IVPUSH BID@0600,1400 [facility] Last Admin: 03/29/17 06:15 Dose: 40 mg Guaifenesin (Robitussin -) 5 ml PO QID [facility] Last Admin: 03/29/17 09:09 Dose: 5 ml Piperacillin Sod/Tazobactam (Sod 3.375 gm/ Dextrose) 100 mls @ 200 mls/hr IVPB Q8H-IV [facility] Last Admin: 03/29/17 09:10 Dose: 200 mls/hr Insulin Aspart (Novolog Vial Sliding Scale -) 1 vial SQ ACHS [facility] PRN Reason: Protocol Last Admin: 03/29/17 06:16 Dose: Not Given Insulin Detemir (Levemir Vial) 15 units SQ [facility] Last Admin: 03/28/17 21:39 Dose: 15 units Magnesium Hydroxide (Milk Of Magnesia -) 30 ml PO DAILY [facility] Last Admin: 03/29/17 09:09 Dose: 30 ml Methylprednisolone Sodium Succinate (Solu-Medrol -) 40 mg IVPUSH BID [facility] Metoprolol Tartrate (Lopressor -) 50 mg PO TID [facility] Last Admin: 03/29/17 06:16 Dose: 50 mg Polyethylene Glycol (Miralax (For Daily Use) -) 17 gm PO BID [facility] Last Admin: 03/29/17 09:09 Dose: 17 gm Sitagliptin Phosphate (Januvia -) 25 mg PO DAILY@0700 [facility] Last Admin: 03/29/17 06:16 Dose: 25 mg Spironolactone (Aldactone -) 25 mg PO DAILY [facility] Last Admin: 03/29/17 09:10 Dose: 25 mg - Objective Vital Signs: Vital Signs Temperature 98.2 F 03/29/17 08:22 Pulse Rate 82 03/29/17 08:22 Respiratory Rate 22 03/29/17 08:29 Blood Pressure 127/68 03/29/17 08:22 O2 Sat by Pulse Oximetry (%) 96 03/29/17 08:29 Constitutional: Yes: Well Nourished, Calm Eyes: Yes: WNL HENT: Yes: WNL Neck: Yes: WNL Cardiovascular: Yes: Pulse Irregular, S1, S2 Respiratory: Yes: Rhonchi (SCATTERED TOSHA RHONCHI) Gastrointestinal: Yes: Normal Bowel Sounds, Soft Extremities: Yes: WNL Edema: Yes Labs: CBC, BMP 03/29/17 06:50 03/29/17 06:50 INR, PTT INR 0.99 (0.82-1.09) 03/21/17 20:45 Assessment/Plan A/P Acute on Chronic Hypoxic and Hypercapneic Respiratory Failure New Onset Atrial Fibrillation r/o Pneumonia Acute COPD/Bronchiectasis Exacerbation Acute on Chronic Systolic Heart Failure Asbestos Exposure CAD s/p CABG Pulmonary HTN DM CKD HEMOPTYSIS improving - antibiotics - inhaled bronchodilators - BiPAP at night and PRN during day - O2 to keep Spo2 >90% - rate control - anticoagulation on hold secondary to hemoptyssi - lasix - medrol taper - monitor urine output, creatinine - f/u chest x-rays - Antitussives - quantify hemoptysis DR HERNANDEZ Problem List - Problems (1) Acute respiratory failure with hypercapnia Code(s): J96.02 - ACUTE RESPIRATORY FAILURE WITH HYPERCAPNIA (2) Acute respiratory failure with hypoxia Code(s): J96.01 - ACUTE RESPIRATORY FAILURE WITH HYPOXIA (3) COPD with acute exacerbation Code(s): J44.1 - CHRONIC OBSTRUCTIVE PULMONARY DISEASE W (ACUTE) EXACERBATION (4) Bronchiectasis with (acute) exacerbation Code(s): J47.1 - BRONCHIECTASIS WITH (ACUTE) EXACERBATION (5) CAD (coronary artery disease) Code(s): I25.10 - ATHSCL HEART DISEASE OF [place] CORONARY ARTERY W/O ANG PCTRS Qualifiers: Coronary Disease-Associated Artery/Lesion type: bypass graft, autologous artery Associated angina: without angina Qualified Code(s): I25.810 - Atherosclerosis of coronary artery bypass graft(s) without angina pectoris (6) Pulmonary hypertension Code(s): I27.20 - PULMONARY HYPERTENSION, UNSPECIFIED (7) Acute on chronic systolic (congestive) heart failure Code(s): I50.23 - ACUTE ON CHRONIC SYSTOLIC (CONGESTIVE) HEART FAILURE
--- NOTE | 2017-03-29 14:53 | PN ---
Progress Note, Physician History of Present Illness: OOB in chair No episodes of hemoptysis today Appears more comfortable at rest in chair on nasal cannula Afebrile BC no growth Sputum c/s normal ponce - Current Medication List Current Medications: Active Medications Acetaminophen (Tylenol -) 325 mg PO DAILY PRN Last Admin: 03/24/17 23:33 Dose: 325 mg Albuterol/Ipratropium (Duoneb -) 1 amp NEB RQID [facility] Last Admin: 03/29/17 11:05 Dose: 1 amp Apixaban (Eliquis -) 2.5 mg PO BID [facility] Atorvastatin Calcium (Lipitor -) 10 mg PO HS [facility] Last Admin: 03/28/17 21:39 Dose: 10 mg Bisacodyl (Dulcolax -) 10 mg PO DAILY [facility] Last Admin: 03/29/17 09:11 Dose: 10 mg Furosemide (Lasix Injection -) 40 mg IVPUSH BID@0600,1400 [facility] Last Admin: 03/29/17 13:26 Dose: 40 mg Guaifenesin (Robitussin -) 5 ml PO QID [facility] Last Admin: 03/29/17 13:27 Dose: 5 ml Piperacillin Sod/Tazobactam (Sod 3.375 gm/ Dextrose) 100 mls @ 200 mls/hr IVPB Q8H-IV [facility] Last Admin: 03/29/17 09:10 Dose: 200 mls/hr Insulin Aspart (Novolog Vial Sliding Scale -) 1 vial SQ ACHS [facility] PRN Reason: Protocol Last Admin: 03/29/17 11:55 Dose: Not Given Insulin Detemir (Levemir Vial) 15 units SQ [facility] Last Admin: 03/28/17 21:39 Dose: 15 units Magnesium Hydroxide (Milk Of Magnesia -) 30 ml PO DAILY [facility] Last Admin: 03/29/17 09:09 Dose: 30 ml Methylprednisolone Sodium Succinate (Solu-Medrol -) 40 mg IVPUSH BID [facility] Metoprolol Tartrate (Lopressor -) 50 mg PO TID [facility] Last Admin: 03/29/17 13:26 Dose: 50 mg Polyethylene Glycol (Miralax (For Daily Use) -) 17 gm PO BID [facility] Last Admin: 03/29/17 09:09 Dose: 17 gm Sitagliptin Phosphate (Januvia -) 25 mg PO DAILY@0700 [facility] Last Admin: 03/29/17 06:16 Dose: 25 mg Spironolactone (Aldactone -) 25 mg PO DAILY [facility] Last Admin: 03/29/17 09:10 Dose: 25 mg - Objective Vital Signs: Vital Signs Temperature 98.2 F 03/29/17 08:22 Pulse Rate 82 03/29/17 08:22 Respiratory Rate 22 03/29/17 08:29 Blood Pressure 127/68 03/29/17 08:22 O2 Sat by Pulse Oximetry (%) 96 03/29/17 08:29 Constitutional: Yes: No Distress, Obese Eyes: Yes: Conjunctiva Clear Cardiovascular: Yes: Regular Rate and Rhythm, S1, S2 Respiratory: Yes: Diminished, Other (decreased BS bases) Gastrointestinal: Yes: Normal Bowel Sounds, Soft, Abdomen, Obese. No: Tenderness Edema: Yes Labs: CBC, BMP 03/29/17 06:50 03/29/17 06:50 INR, PTT INR 0.99 (0.82-1.09) 03/21/17 20:45 Assessment/Plan Acute exacerbation COPD/ Bronchiectasis Hemoptysis HCAP New onset Afib Continue empiric zosyn additional 24hr Bronchodilators, steroids, diuretic
[2017-03-29] MEDS: ATORVASTATIN CA 10 MG TABLET (FP) PO SCH (23:06)
[2017-03-29] MEDS: APIXABAN 2.5 MG TABLET PO SCH (23:06)
[2017-03-29] MEDS: INSULIN DETEMIR 100 UNITS/ML MDV SQ SCH (23:07)
[2017-03-30] MEDS ORDERED: PT OWN MED DRAWER 7, Y5N ONE ×3 (01:41→15:56)
[2017-03-30] MEDS: PIPERACILLIN/TAZOB 3.375 GM 3.375 GM in DEXTROSE 5%-WATER - 100 ML IVPB SCH ×3 (02:08→17:18)
[2017-03-30] MEDS: INSULIN SLIDING SCALE (NOVOLOG) 1 VIAL SQ SCH ×4 (06:15→22:36)
[2017-03-30] MEDS: METOPROLOL TARTRATE 50 MG TABLET (FP) PO SCH ×3 (06:19→22:31)
[2017-03-30] MEDS: FUROSEMIDE 40 MG/4 ML INJECTABLE VIAL IVPUSH SCH ×2 (06:19→13:20)
[2017-03-30] MEDS: sitaGLIPtin PHOSPHATE 25 MG TABLET (FP) PO SCH (06:19)
[2017-03-30] MEDS: ALBUTEROL SO4 2.5/IPRATROPIUM 0.5 INH SOL 3 ML VIAL.NEB. NEB SCH ×4 (07:55→22:10)
--- NOTE | 2017-03-30 08:04 | PN ---
Progress Note (short form) - Note Progress Note: C/o LE swelling, SOB, [place]. Vital Signs Temp 98.9 F 03/30/17 06:00 Pulse 81 03/30/17 06:00 Resp 18 03/30/17 06:00 BP 134/88 03/30/17 06:00 Pulse Ox 96 03/30/17 06:00 Intake & Output 03/29/17 03/29/17 03/30/17 11:59 23:59 11:59 Intake Total 200 580 500 Balance 200 580 500 Weight 241 lb 6.4 oz 241 lb 12.8 oz Intake: IV 40 s/l 40 IVPB 100 200 100 Oral 100 380 360 Other: Voiding Method Urinal Toilet Toilet # Unmeasured Voids Void 1 500 225 Weight Measurement Method Standing Scale Standing Scale Awake, alert, NAD. Neck-no JVD Lungs Few b/l rhonchi, rales Heart S1S2 irregular Abdomen obese, nt/nd Ext-+2-3 pre-tibial edema. Laboratory Results - last 24 hr 03/29/17 03/29/17 03/29/17 06:50 06:50 11:52 WBC 10.7 H D RBC 4.20 Hgb 12.7 Hct 39.7 MCV 94.3 MCH 30.3 MCHC 32.1 RDW 15.0 Plt Count 242 MPV 9.1 Neutrophils % 91.3 H Lymphocytes % 4.2 L D Monocytes % 4.1 Eosinophils % 0.2 D Basophils % 0.2 Sodium 135 L Potassium 4.2 Chloride 90 L Carbon Dioxide 42 H Anion Gap 3 L BUN 49 H Creatinine 1.8 H Creat Clearance w eGFR 36.04 POC Glucometer 197 Random Glucose 90 D Calcium 8.1 L Total Bilirubin 0.6 AST 42 H ALT 121 H Alkaline Phosphatase 59 Total Protein 6.4 Albumin 3.2 L 03/29/17 03/29/17 03/30/17 16:35 23:03 05:51 WBC RBC Hgb Hct MCV MCH MCHC RDW Plt Count MPV Neutrophils % Lymphocytes % Monocytes % Eosinophils % Basophils % Sodium Potassium Chloride Carbon Dioxide Anion Gap BUN Creatinine Creat Clearance w eGFR POC Glucometer 292 251 169 Random Glucose Calcium Total Bilirubin AST ALT Alkaline Phosphatase Total Protein Albumin Plan Complete IV ABX IV steroids next 24 hrs IV Furosemide. Toprol to control his HR Eliquis for A/C Observe for hemoptysis. Problem List - Problems (1) Bronchiectasis with (acute) exacerbation Code(s): J47.1 - BRONCHIECTASIS WITH (ACUTE) EXACERBATION (2) COPD (chronic obstructive pulmonary disease) with acute bronchitis Code(s): J44.0 - CHRONIC OBSTRUCTIVE PULMON DISEASE W ACUTE LOWER RESP INFCT; J20.9 - ACUTE BRONCHITIS, UNSPECIFIED (3) New onset a-fib Code(s): I48.91 - UNSPECIFIED ATRIAL FIBRILLATION (4) Pneumonia Code(s): J18.9 - PNEUMONIA, UNSPECIFIED ORGANISM Qualifiers: Laterality: unspecified laterality (5) Pulmonary hypertension Code(s): I27.20 - PULMONARY HYPERTENSION, UNSPECIFIED (6) Respiratory failure with hypercapnia Code(s): J96.92 - RESPIRATORY FAILURE, UNSPECIFIED WITH HYPERCAPNIA Qualifiers: Chronicity: acute Qualified Code(s): J96.02 - Acute respiratory failure with hypercapnia (7) CHF exacerbation Code(s): I50.9 - HEART FAILURE, UNSPECIFIED Qualifiers: Congestive heart failure type: combined Qualified Code(s): I50.43 - Acute on chronic combined systolic (congestive) and diastolic (congestive) heart failure (8) Pleural effusion Code(s): J90 - PLEURAL EFFUSION, NOT ELSEWHERE CLASSIFIED (9) Hemoptysis Code(s): R04.2 - HEMOPTYSIS
[2017-03-30 08:38] LABS: BASO % 0.1 % (0-2.0); EOS % 0.2 % (0-4.5); HEMATOCRIT 42.1 % (35.4-49); HEMOGLOBIN 13.1 GM/dL (11.7-16.9); LYMPH % 3.9 % (8-40); MCH 29.7 pg (25.7-33.7); MEAN CELL VOLUME 95.5 fl (80-96); MONO % 5.2 % (3.8-10.2); NEUT % 90.6 % (42.8-82.8); PLATELET COUNT 248 K/MM3 (134-434); RBC 4.41 M/mm3 (4.00-5.60); RDW 15.3 % (11.9-15.9); WHITE BLOOD COUNT 11.1 K/mm3 (4.0-10.0)
[2017-03-30 09:21] LABS: CHLORIDE 86 mmol/L (98-107); POTASSIUM 4.2 mmol/L (3.5-5.1); SODIUM 136 mmol/L (136-145)
--- NOTE | 2017-03-30 09:27 | PN ---
Progress Note, Physician Chief Complaint: sitting comfortably, no distress or new complaints. - Current Medication List Current Medications: Active Medications Acetaminophen (Tylenol -) 325 mg PO DAILY PRN Last Admin: 03/24/17 23:33 Dose: 325 mg Albuterol/Ipratropium (Duoneb -) 1 amp NEB RQID [facility] Last Admin: 03/29/17 20:35 Dose: 1 amp Apixaban (Eliquis -) 2.5 mg PO BID [facility] Last Admin: 03/29/17 23:06 Dose: 2.5 mg Atorvastatin Calcium (Lipitor -) 10 mg PO HS [facility] Last Admin: 03/29/17 23:06 Dose: 10 mg Bisacodyl (Dulcolax -) 10 mg PO DAILY [facility] Last Admin: 03/29/17 09:11 Dose: 10 mg Furosemide (Lasix Injection -) 40 mg IVPUSH BID@0600,1400 [facility] Last Admin: 03/30/17 06:19 Dose: 40 mg Guaifenesin (Robitussin -) 5 ml PO QID [facility] Last Admin: 03/29/17 23:06 Dose: 5 ml Piperacillin Sod/Tazobactam (Sod 3.375 gm/ Dextrose) 100 mls @ 200 mls/hr IVPB Q8H-IV [facility] Last Admin: 03/30/17 02:08 Dose: 200 mls/hr Insulin Aspart (Novolog Vial Sliding Scale -) 1 vial SQ ACHS [facility] PRN Reason: Protocol Last Admin: 03/30/17 06:15 Dose: Not Given Insulin Detemir (Levemir Vial) 15 units SQ [facility] Last Admin: 03/29/17 23:07 Dose: 15 units Magnesium Hydroxide (Milk Of Magnesia -) 30 ml PO DAILY [facility] Last Admin: 03/29/17 09:09 Dose: 30 ml Methylprednisolone Sodium Succinate (Solu-Medrol -) 40 mg IVPUSH BID [facility] Last Admin: 03/29/17 23:06 Dose: 40 mg Metoprolol Tartrate (Lopressor -) 50 mg PO TID [facility] Last Admin: 03/30/17 06:19 Dose: 50 mg Polyethylene Glycol (Miralax (For Daily Use) -) 17 gm PO BID [facility] Last Admin: 03/29/17 23:13 Dose: 17 gm Sitagliptin Phosphate (Januvia -) 25 mg PO DAILY@0700 [facility] Last Admin: 03/30/17 06:19 Dose: 25 mg Spironolactone (Aldactone -) 25 mg PO DAILY [facility] Last Admin: 03/29/17 09:10 Dose: 25 mg - Objective Vital Signs: Vital Signs Temperature 98.9 F 03/30/17 06:00 Pulse Rate 81 03/30/17 06:00 Respiratory Rate 18 03/30/17 06:00 Blood Pressure 134/88 03/30/17 06:00 O2 Sat by Pulse Oximetry (%) 96 03/30/17 06:00 Constitutional: Yes: Calm Cardiovascular: Yes: Pulse Irregular Respiratory: Yes: Rhonchi (no rales or active wheezing) Gastrointestinal: Yes: Soft, Abdomen, Obese Edema: No Neurological: Yes: Alert, Oriented Labs: CBC, BMP 03/30/17 07:09 03/30/17 07:09 INR, PTT INR 0.99 (0.82-1.09) 03/21/17 20:45 - ....Imaging EKG: Image Reviewed (TELE: controlled AF) Problem List - Problems (1) Bronchiectasis with (acute) exacerbation Code(s): J47.1 - BRONCHIECTASIS WITH (ACUTE) EXACERBATION (2) Pneumonia Code(s): J18.9 - PNEUMONIA, UNSPECIFIED ORGANISM Qualifiers: Laterality: unspecified laterality (3) Pulmonary hypertension Code(s): I27.20 - PULMONARY HYPERTENSION, UNSPECIFIED (4) Acute respiratory failure with hypercapnia Code(s): J96.02 - ACUTE RESPIRATORY FAILURE WITH HYPERCAPNIA (5) Acute respiratory failure with hypoxia Code(s): J96.01 - ACUTE RESPIRATORY FAILURE WITH HYPOXIA (6) New onset a-fib Code(s): I48.91 - UNSPECIFIED ATRIAL FIBRILLATION (7) CAD (coronary artery disease) Code(s): I25.10 - ATHSCL HEART DISEASE OF [place] CORONARY ARTERY W/O ANG PCTRS Qualifiers: Coronary Disease-Associated Artery/Lesion type: bypass graft, autologous artery Associated angina: without angina Qualified Code(s): I25.810 - Atherosclerosis of coronary artery bypass graft(s) without angina pectoris (8) ASHD (arteriosclerotic heart disease) Code(s): I25.10 - ATHSCL HEART DISEASE OF [place] CORONARY ARTERY W/O ANG PCTRS (9) Acute kidney injury Code(s): N17.9 - ACUTE KIDNEY FAILURE, UNSPECIFIED Assessment/Plan Assessment/Plan IMP: 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 New onset AF-HR is adequately controlled currently -no further hemoptysis, ELiquis resumed. -Cont metoprolol -cont tele monitoring 2. Acute on chronic combined systolic and diastolic CHF: -to cont IV Lasix with close monitoring renal function 3. Bronchiectasis/hypoxia/fever/hemoptysis: -receiving Abx and BIPAP as needed, currently supplemental O2 via nc 4.CAD-h/o CABG-currently stable -cont bblocker and statin
[2017-03-30 09:28] LABS: ALBUMIN 3.3 g/dl (3.4-5.0); ALK PHOS 66 U/L (45-117); ANION GAP 9 (8-16); BILIRUBIN,TOTAL 0.7 mg/dL (0.2-1.0); BLOOD UREA NITROGEN 53 mg/dL (7-18); CO2 41 mmol/L (21-32); CREATININE 1.9 mg/dL (0.7-1.3); GLUCOSE,RANDOM 139 mg/dL (74-106); SGOT/AST 39 U/L (15-37); SGPT/ALT 119 U/L (12-78); TOT PROT 6.5 g/dl (6.4-8.2)
[2017-03-30] MEDS: BISACODYL 5 MG TABLET.DR (FP) PO SCH (10:02)
[2017-03-30] MEDS: MAGNESIUM HYDROX 2400MG/30ML ORAL SUSPENSION 30 ML CUP PO SCH (10:03)
[2017-03-30] MEDS: methylPREDNISolone NA SUCC 40 MG/1 ML VIAL IVPUSH SCH ×2 (10:03→22:31)
[2017-03-30] MEDS: POLYETHYLENE GLYCOL 3350 119 GM BTL PO SCH ×2 (10:03→22:32)
[2017-03-30] MEDS: guaiFENesin 200 MG/10 ML 10 ML UNIT-DOSE CUPS PO SCH ×4 (10:03→22:31)
[2017-03-30] MEDS: APIXABAN 2.5 MG TABLET PO SCH ×2 (10:03→22:31)
[2017-03-30] MEDS: SPIRONOLACTONE 25 MG TABLET (FP) PO SCH (10:56)
--- NOTE | 2017-03-30 11:40 | PN ---
Progress Note, Physician History of Present Illness: PULMONARY ALERT,OOB-CHAIR,LESS DYSPNEIC.- HEMOPTYSIS - Current Medication List Current Medications: Active Medications Acetaminophen (Tylenol -) 325 mg PO DAILY PRN Last Admin: 03/24/17 23:33 Dose: 325 mg Albuterol/Ipratropium (Duoneb -) 1 amp NEB RQID [facility] Last Admin: 03/30/17 07:55 Dose: 1 amp Apixaban (Eliquis -) 2.5 mg PO BID [facility] Last Admin: 03/30/17 10:03 Dose: 2.5 mg Atorvastatin Calcium (Lipitor -) 10 mg PO HS [facility] Last Admin: 03/29/17 23:06 Dose: 10 mg Bisacodyl (Dulcolax -) 10 mg PO DAILY [facility] Last Admin: 03/30/17 10:02 Dose: 10 mg Furosemide (Lasix Injection -) 40 mg IVPUSH BID@0600,1400 [facility] Last Admin: 03/30/17 06:19 Dose: 40 mg Guaifenesin (Robitussin -) 5 ml PO QID [facility] Last Admin: 03/30/17 10:03 Dose: 5 ml Piperacillin Sod/Tazobactam (Sod 3.375 gm/ Dextrose) 100 mls @ 200 mls/hr IVPB Q8H-IV [facility] Last Admin: 03/30/17 10:03 Dose: 200 mls/hr Insulin Aspart (Novolog Vial Sliding Scale -) 1 vial SQ ACHS [facility] PRN Reason: Protocol Last Admin: 03/30/17 06:15 Dose: Not Given Insulin Detemir (Levemir Vial) 15 units SQ [facility] Last Admin: 03/29/17 23:07 Dose: 15 units Magnesium Hydroxide (Milk Of Magnesia -) 30 ml PO DAILY [facility] Last Admin: 03/30/17 10:03 Dose: 30 ml Methylprednisolone Sodium Succinate (Solu-Medrol -) 40 mg IVPUSH BID [facility] Last Admin: 03/30/17 10:03 Dose: 40 mg Metoprolol Tartrate (Lopressor -) 50 mg PO TID [facility] Last Admin: 03/30/17 06:19 Dose: 50 mg Polyethylene Glycol (Miralax (For Daily Use) -) 17 gm PO BID [facility] Last Admin: 03/30/17 10:03 Dose: 17 gm Sitagliptin Phosphate (Januvia -) 25 mg PO DAILY@0700 [facility] Last Admin: 03/30/17 06:19 Dose: 25 mg Spironolactone (Aldactone -) 25 mg PO DAILY [facility] Last Admin: 03/30/17 10:56 Dose: 25 mg - Objective Vital Signs: Vital Signs Temperature 98.3 F 03/30/17 10:00 Pulse Rate 83 03/30/17 10:00 Respiratory Rate 20 03/30/17 10:00 Blood Pressure 111/80 03/30/17 10:00 O2 Sat by Pulse Oximetry (%) 96 03/30/17 10:00 Constitutional: Yes: Well Nourished, Calm Eyes: Yes: WNL HENT: Yes: WNL Neck: Yes: WNL Cardiovascular: Yes: Pulse Irregular, S1, S2 Respiratory: Yes: Rhonchi (BILATERAL RHONCHI) Gastrointestinal: Yes: Normal Bowel Sounds, Soft Extremities: Yes: WNL Edema: Yes Labs: CBC, BMP 03/30/17 07:09 03/30/17 07:09 INR, PTT INR 0.99 (0.82-1.09) 03/21/17 20:45 Assessment/Plan A/P Acute on Chronic Hypoxic and Hypercapneic Respiratory Failure improving New Onset Atrial Fibrillation r/o Pneumonia Acute COPD/Bronchiectasis Exacerbation Acute on Chronic Systolic Heart Failure Asbestos Exposure CAD s/p CABG Pulmonary HTN DM CKD HEMOPTYSIS RESOLVED - antibiotics - inhaled bronchodilators - BiPAP at night and PRN during day - O2 to keep Spo2 >90% - rate control - anticoagulation - lasix -continue medrol taper - monitor urine output, creatinine - f/u chest x-rays - Antitussives - quantify hemoptysis DR HERNANDEZ Problem List - Problems (1) Acute respiratory failure with hypercapnia Code(s): J96.02 - ACUTE RESPIRATORY FAILURE WITH HYPERCAPNIA (2) Acute respiratory failure with hypoxia Code(s): J96.01 - ACUTE RESPIRATORY FAILURE WITH HYPOXIA (3) COPD with acute exacerbation Code(s): J44.1 - CHRONIC OBSTRUCTIVE PULMONARY DISEASE W (ACUTE) EXACERBATION (4) Bronchiectasis with (acute) exacerbation Code(s): J47.1 - BRONCHIECTASIS WITH (ACUTE) EXACERBATION (5) CAD (coronary artery disease) Code(s): I25.10 - ATHSCL HEART DISEASE OF [place] CORONARY ARTERY W/O ANG PCTRS Qualifiers: Coronary Disease-Associated Artery/Lesion type: bypass graft, autologous artery Associated angina: without angina Qualified Code(s): I25.810 - Atherosclerosis of coronary artery bypass graft(s) without angina pectoris (6) Pulmonary hypertension Code(s): I27.20 - PULMONARY HYPERTENSION, UNSPECIFIED (7) Acute on chronic systolic (congestive) heart failure Code(s): I50.23 - ACUTE ON CHRONIC SYSTOLIC (CONGESTIVE) HEART FAILURE
[2017-03-30] MEDS ORDERED: INSULIN (NOVOLOG) ASPART 100 UNITS/ML 10ML VIAL ONE (16:56)
[2017-03-30] MEDS: ATORVASTATIN CA 10 MG TABLET (FP) PO SCH (22:31)
[2017-03-30] MEDS: INSULIN DETEMIR 100 UNITS/ML MDV SQ SCH (22:37)
[2017-03-31] MEDS ORDERED: PT OWN MED DRAWER 7, Y5N ONE ×2 (01:41→09:15)
[2017-03-31] MEDS: PIPERACILLIN/TAZOB 3.375 GM 3.375 GM in DEXTROSE 5%-WATER - 100 ML IVPB SCH ×2 (01:43→09:26)
[2017-03-31] MEDS: sitaGLIPtin PHOSPHATE 25 MG TABLET (FP) PO SCH (06:17)
[2017-03-31] MEDS: METOPROLOL TARTRATE 50 MG TABLET (FP) PO SCH (06:17)
[2017-03-31] MEDS: FUROSEMIDE 40 MG/4 ML INJECTABLE VIAL IVPUSH SCH (06:17)
[2017-03-31] MEDS: INSULIN SLIDING SCALE (NOVOLOG) 1 VIAL SQ SCH ×2 (06:17→12:16)
[2017-03-31] MEDS: ALBUTEROL SO4 2.5/IPRATROPIUM 0.5 INH SOL 3 ML VIAL.NEB. NEB SCH (07:55)
--- NOTE | 2017-03-31 08:20 | PN ---
Progress Note (short form) - Note Progress Note: Pt is feeling better, less SOB Vital Signs Temp 98.5 F 03/31/17 06:00 Pulse 73 03/31/17 06:00 Resp 18 03/31/17 06:00 BP 106/65 03/31/17 06:00 Pulse Ox 95 03/31/17 06:00 Intake & Output 03/30/17 03/30/17 03/31/17 11:59 23:59 11:59 Intake Total 500 1280 380 Output Total 300 Balance 500 1280 80 Weight 241 lb 12.8 oz 239 lb 12.8 oz Intake: IV 40 40 s/l 40 40 IVPB 100 200 100 Oral 360 1080 240 Output: Urine 300 Void 300 Other: Voiding Method Urinal Toilet Toilet # Unmeasured Voids Void 225 1 Bowel Movement Yes Weight Measurement Method Standing Scale Standing Scale Lungs-no rales, decreased BS Heart S1S2 irregular Abdomen soft OBESE, NT/ND Laboratory Results - last 24 hr 03/30/17 03/30/17 03/30/17 07:09 07:09 11:46 WBC 11.1 H RBC 4.41 Hgb 13.1 Hct 42.1 MCV 95.5 MCH 29.7 MCHC 31.0 L RDW 15.3 Plt Count 248 MPV 9.0 Neutrophils % 90.6 H Lymphocytes % 3.9 L Monocytes % 5.2 Eosinophils % 0.2 Basophils % 0.1 Sodium 136 Potassium 4.2 Chloride 86 L Carbon Dioxide 41 H Anion Gap 9 BUN 53 H Creatinine 1.9 H Creat Clearance w eGFR 33.86 POC Glucometer 234 Random Glucose 139 H D Calcium 8.0 L Total Bilirubin 0.7 AST 39 H ALT 119 H Alkaline Phosphatase 66 Total Protein 6.5 Albumin 3.3 L 03/30/17 03/30/17 03/31/17 16:41 22:30 06:16 WBC RBC Hgb Hct MCV MCH MCHC RDW Plt Count MPV Neutrophils % Lymphocytes % Monocytes % Eosinophils % Basophils % Sodium Potassium Chloride Carbon Dioxide Anion Gap BUN Creatinine Creat Clearance w eGFR POC Glucometer 322 301 187 Random Glucose Calcium Total Bilirubin AST ALT Alkaline Phosphatase Total Protein Albumin Pt has had multiple readmissions in recent months with conditions worsening due to pts chronc resp failure and advancement of copd along with lack of gas exchange. Pt requires ventilation via ventilator- bipap is no longer effective and if left untreated may result in harm to the pt. After further review, bipap has been ineffective due to pts acute on chronic resp failure as a consequence of copd. Pt will require non invasive home ventilator to help decrase the work of breathing and improve pulm status . If lt untreated may cause to pt or . Current Active Problems Problem Status Onset Acute on chronic systolic (congestive) heart failure Acute Bronchiectasis with (acute) exacerbation Acute CAD (coronary artery disease) Acute CHF exacerbation Acute COPD (chronic obstructive pulmonary disease) with acute bronchitis Acute Hemoptysis Acute New onset a-fib Acute Pleural effusion Acute Pneumonia Acute Pulmonary hypertension Acute Respiratory failure with hypercapnia Acute pLan D/c home VNS Home diuretics/Eliquis, Toprol VNS F/u in the office next week Problem List - Problems (1) Bronchiectasis with (acute) exacerbation Code(s): J47.1 - BRONCHIECTASIS WITH (ACUTE) EXACERBATION (2) COPD (chronic obstructive pulmonary disease) with acute bronchitis Code(s): J44.0 - CHRONIC OBSTRUCTIVE PULMON DISEASE W ACUTE LOWER RESP INFCT; J20.9 - ACUTE BRONCHITIS, UNSPECIFIED (3) New onset a-fib Code(s): I48.91 - UNSPECIFIED ATRIAL FIBRILLATION (4) Pneumonia Code(s): J18.9 - PNEUMONIA, UNSPECIFIED ORGANISM Qualifiers: Laterality: unspecified laterality (5) Pulmonary hypertension Code(s): I27.20 - PULMONARY HYPERTENSION, UNSPECIFIED (6) Respiratory failure with hypercapnia Code(s): J96.92 - RESPIRATORY FAILURE, UNSPECIFIED WITH HYPERCAPNIA Qualifiers: Chronicity: acute Qualified Code(s): J96.02 - Acute respiratory failure with hypercapnia (7) CHF exacerbation Code(s): I50.9 - HEART FAILURE, UNSPECIFIED Qualifiers: Congestive heart failure type: combined Qualified Code(s): I50.43 - Acute on chronic combined systolic (congestive) and diastolic (congestive) heart failure (8) Pleural effusion Code(s): J90 - PLEURAL EFFUSION, NOT ELSEWHERE CLASSIFIED (9) Hemoptysis Code(s): R04.2 - HEMOPTYSIS
--- NOTE | 2017-03-31 08:22 | DS ---
Physical Examination Vital Signs: Vital Signs Temperature 98.5 F 03/31/17 06:00 Pulse Rate 73 03/31/17 06:00 Respiratory Rate 18 03/31/17 06:00 Blood Pressure 106/65 03/31/17 06:00 O2 Sat by Pulse Oximetry (%) 95 03/31/17 06:00 Constitutional: Yes: No Distress, Anxious Eyes: Yes: Conjunctiva Clear, EOM Intact HENT: Yes: Atraumatic, Normocephalic. No: Drooling Neck: Yes: Supple, Trachea Midline. No: Lymphadenopathy, Tenderness, Thyromegaly Cardiovascular: Yes: Pulse Irregular (A.fib) Respiratory: Yes: Diminished, On Nasal O2, SOB on Exertion. No: Rales, Wheezes Gastrointestinal: Yes: Normal Bowel Sounds, Soft, Abdomen, Obese. No: Tenderness, Vomiting ...Rectal Exam: Yes: Deferred Renal/: No: Anuria, Bladder Distention Breast(s): Yes: WNL Musculoskeletal: No: Joint Stiffness, Joint Swelling Extremities: No: Amputation, Calf Tenderness, Cold, Cyanosis Edema: LLE: Trace, RLE: Trace Peripheral Pulses WNL: No Neurological: Yes: Alert, Oriented. No: Aphasia, Seizure ...Motor Strength: WNL Psychiatric: Yes: WNL, Alert, Oriented. No: Agitated, Suicidal Ideation Labs: CBC, BMP 03/30/17 07:09 03/30/17 07:09 Discharge Summary Reason For Visit: BRONCHIECTASIS W/ACUTE EXACERBATION/new a.fib Current Active Problems Acute on chronic systolic (congestive) heart failure (Acute) Bronchiectasis with (acute) exacerbation (Acute) CAD (coronary artery disease) (Acute) CHF exacerbation (Acute) COPD (chronic obstructive pulmonary disease) with acute bronchitis (Acute) Hemoptysis (Acute) New onset a-fib (Acute) Pleural effusion (Acute) Pneumonia (Acute) Pulmonary hypertension (Acute) Respiratory failure with hypercapnia (Acute) Condition: Improved - Instructions Referrals: Sunil Moseley MD [Primary Care Provider] - - Home Medications Comprehensive Discharge Medication List: Ambulatory Orders Aspirin [ASA -] 81 mg PO DAILY 06/24/14 Pravastatin Sodium [Pravachol -] 40 mg PO HS 10/12/14 Insulin (Levemir) [Levemir Flexpen -] 30 units SQ HS #1 pen 10/14/14 Sitagliptin Phosphate [Januvia -] 25 mg PO DAILY@0700 #90 tab 10/14/14 Furosemide [Lasix -] 40 mg PO BID #30 tablet 03/01/16 Polyethylene Glycol 3350 [Miralax 119 gm Btl -] 17 gm PO BID bottle 06/24/16 Albuterol 2.5/Ipratropium 0.5 [Duoneb -] 1 amp NEB TIDR amp 03/07/17 Acetaminophen 325 mg PO PRN 03/21/17 Docusate Sodium [Colace] 100 mg PO DAILY 03/21/17 Guaifenesin 100 mg PO QID 03/21/17 Ipratropium 0.02% Nebulizer [Atrovent *Nebulizer*] 0.5 mg IH PRN 03/21/17
[2017-03-31] MEDS: SPIRONOLACTONE 25 MG TABLET (FP) PO SCH (09:19)
[2017-03-31] MEDS: MAGNESIUM HYDROX 2400MG/30ML ORAL SUSPENSION 30 ML CUP PO SCH (09:19)
[2017-03-31] MEDS: BISACODYL 5 MG TABLET.DR (FP) PO SCH (09:20)
[2017-03-31] MEDS: methylPREDNISolone NA SUCC 40 MG/1 ML VIAL IVPUSH SCH (09:20)
[2017-03-31] MEDS: guaiFENesin 200 MG/10 ML 10 ML UNIT-DOSE CUPS PO SCH (09:20)
[2017-03-31] MEDS: APIXABAN 2.5 MG TABLET PO SCH (09:20)
[2017-03-31] MEDS: POLYETHYLENE GLYCOL 3350 119 GM BTL PO SCH (09:26)
[2017-03-31 10:13] VITALS: BP 108/60; PULSE 80; TEMP 98
--- NOTE | 2017-03-31 11:43 | PN ---
Progress Note, Physician History of Present Illness: seen and examined today in nad. planned for discharge home today. no new complaints. - Current Medication List Current Medications: Active Medications Acetaminophen (Tylenol -) 325 mg PO DAILY PRN Last Admin: 03/24/17 23:33 Dose: 325 mg Albuterol/Ipratropium (Duoneb -) 1 amp NEB RQID [facility] Last Admin: 03/31/17 07:55 Dose: 1 amp Apixaban (Eliquis -) 2.5 mg PO BID [facility] Last Admin: 03/31/17 09:20 Dose: 2.5 mg Atorvastatin Calcium (Lipitor -) 10 mg PO HS [facility] Last Admin: 03/30/17 22:31 Dose: 10 mg Bisacodyl (Dulcolax -) 10 mg PO DAILY [facility] Last Admin: 03/31/17 09:20 Dose: 10 mg Furosemide (Lasix Injection -) 40 mg IVPUSH BID@0600,1400 [facility] Last Admin: 03/31/17 06:17 Dose: 40 mg Guaifenesin (Robitussin -) 5 ml PO QID [facility] Last Admin: 03/31/17 09:20 Dose: 5 ml Piperacillin Sod/Tazobactam (Sod 3.375 gm/ Dextrose) 100 mls @ 200 mls/hr IVPB Q8H-IV [facility] Last Admin: 03/31/17 09:26 Dose: 200 mls/hr Insulin Aspart (Novolog Vial Sliding Scale -) 1 vial SQ ACHS [facility] PRN Reason: Protocol Last Admin: 03/31/17 06:17 Dose: Not Given Insulin Detemir (Levemir Vial) [address] [facility] Last Admin: 03/30/17 22:37 Dose: 15 units Magnesium Hydroxide (Milk Of Magnesia -) 30 ml PO DAILY [facility] Last Admin: 03/31/17 09:19 Dose: 30 ml Methylprednisolone Sodium Succinate (Solu-Medrol -) 30 mg IVPUSH BID [facility] Last Admin: 03/31/17 09:20 Dose: 30 mg Metoprolol Tartrate (Lopressor -) 50 mg PO TID [facility] Last Admin: 03/31/17 06:17 Dose: 50 mg Polyethylene Glycol (Miralax (For Daily Use) -) 17 gm PO BID [facility] Last Admin: 03/31/17 09:26 Dose: 17 gm Sitagliptin Phosphate (Januvia -) 25 mg PO DAILY@0700 [facility] Last Admin: 03/31/17 06:17 Dose: 25 mg Spironolactone (Aldactone -) 25 mg PO DAILY [facility] Last Admin: 03/31/17 09:19 Dose: 25 mg - Objective Vital Signs: Vital Signs Temperature 98 F 03/31/17 10:00 Pulse Rate 80 03/31/17 10:00 Respiratory Rate 20 03/31/17 10:00 Blood Pressure 108/60 03/31/17 10:00 O2 Sat by Pulse Oximetry (%) 95 03/31/17 06:00 Constitutional: Yes: No Distress, Calm, Obese Eyes: Yes: Conjunctiva Clear, EOM Intact HENT: Yes: Atraumatic, Normocephalic Neck: Yes: Supple, Trachea Midline Cardiovascular: Yes: Pulse Irregular, S1, S2. No: Bradycardia, Tachycardia, Bruit, JVD, Gallop, Murmur, Rub, S3, S4, Varicosities Respiratory: Yes: Regular, Diminished, On Nasal O2, Rhonchi. No: Rales, SOB, Wheezes Gastrointestinal: Yes: Normal Bowel Sounds, Soft. 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 New onset AF-HR is adequately controlled currently -no further hemoptysis, on Eliquis. -Cont metoprolol -planned for discharge today, outpatient f/up 2. Acute on chronic combined systolic and diastolic CHF: -transition to po Lasix on discharge -pt and son advised to keep legs elevated 3. Bronchiectasis/hypoxia/fever/hemoptysis: -as per PMD 4.CAD-h/o CABG-currently stable -cont bblocker and statin
== END 2017-03-31 13:37 | disposition home or self-care (01) | DRG 291 ==
LOC: JER 19:56 → JERBED 22:29 → UNDOADMIN 22:52 → J5S 03-22 15:15 → J2W 03-22 15:18 → J4W 03-27 18:56
PROVIDERS: ADMIT Internal Medicine; ATTEND Internal Medicine
DX: I13.0 Hypertensive heart and chronic kidney disease with heart failure and stage 1 through stage 4 chronic kidney disease, or unspecified chronic kidney disease (principal); J96.21 Acute and chronic respiratory failure with hypoxia; J96.22 Acute and chronic respiratory failure with hypercapnia; J18.9 Pneumonia, unspecified organism; I50.43 Acute on chronic combined systolic (congestive) and diastolic (congestive) heart failure; J44.1 Chronic obstructive pulmonary disease with (acute) exacerbation; J47.1 Bronchiectasis with (acute) exacerbation; N17.9 Acute kidney failure, unspecified; R04.2 Hemoptysis; J98.11 Atelectasis; J44.0 Chronic obstructive pulmonary disease with (acute) lower respiratory infection; Z87.891 Personal history of nicotine dependence; I48.91 Unspecified atrial fibrillation; I27.20 Pulmonary hypertension, unspecified; J20.9 Acute bronchitis, unspecified; E11.9 Type 2 diabetes mellitus without complications; I25.10 Atherosclerotic heart disease of native coronary artery without angina pectoris; Z95.1 Presence of aortocoronary bypass graft; N18.9 Chronic kidney disease, unspecified
CPT/HCPCS: 36415; 36600; 71045-TC; 80048; 80053; 80061; 81003; 82436; 82550; 82553; 82803; 82962; 83036; 83605; 83721; 83735; 84100; 84133; 84300; 84484; 85025; 85610; 85730; 86850; 86900; 86901; 87040; 87070; 87086; 87205; 87804; 87899; 93005; 93010; 93306-TC; 94640; 94660; 97116-GP; 97161-GP; 99285-25; J1644

== ENCOUNTER 2017-04-10 08:52 | Inpatient (IN) | payer OTHER ==
--- NOTE | 2017-04-10 09:08 | PDOC ---
History of Present Illness - General History Source: Patient Exam Limitations: No Limitations - History of Present Illness Initial Comments: 04/10/17 09:51 The patient is a 86 year old male, BIBA from home with a significant past medical history of CABG, DM, CKD, and COPD (on 3L of home O2), who presents to the emergency department with SOB. The patient was recently seen here in the ER on 03/21/16, admitted, treated for pneumonia, and was recently discharged home about 5 days ago. Patient notes progressively worsening SOB over the span of his 5 days being home. Notes having no improvement of his SOB with bipap. The patient reports being seen in this tuesday where he received an injection of lasix. Patient notes after the injection having a residual 7 pound weight loss (measured on 2 different scales). He denies any recent fevers, chills, headache or dizziness. He denies any recent nausea, vomit, diarrhea or constipation. He denies any recent chest pain.. He denies any recent dysuria, frequency, urgency or hematuria. Allergies: NKA Past surgical history: Quadruple bypass (30 years ago) Social History: Former smoker (over 30 years ago). Denies EtOH use and recreational drug use. 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: <Bradley Swartz - Last Filed: 04/10/17 09:51> <Liz Arce - Last Filed: 04/10/17 13:27> - General Stated Complaint: SHORTNESS OF BREATH Time Seen by Provider: 04/10/17 09:08 Past History <Bradley Swartz - Last Filed: 04/10/17 09:51> - Past Medical History Anemia: No Asthma: No Cancer: No Cardiac Disorders: Yes CVA: No COPD: Yes CHF: No Dementia: Yes (PER FAMILY/MILD) Diabetes: Yes GI Disorders: No Disorders: No HTN: No Hypercholesterolemia: No Liver Disease: No Seizures: No Thyroid Disease: No Lung CA: No (MESOTHELIOMA) - Surgical History Abdominal Surgery: No Appendectomy: No Cardiac Surgery: Yes (CABG) Cholecystectomy: No Lung Surgery: No Neurologic Surgery: No Orthopedic Surgery: No - Immunization History Immunization Up to Date: Yes - Suicide/Smoking/Psychosocial Hx Smoking History: Former smoker Have you smoked in the past 12 months: No If you are a former smoker, when did you quit?: 30 YRS AGO Hx Alcohol Use: No Drug/Substance Use Hx: No Substance Use Type: None Hx Substance Use Treatment: No <Liz Arce - Last Filed: 04/10/17 13:27> - Past Medical History Allergies/Adverse Reactions: Allergies Allergy/AdvReac Type Severity Reaction Status Date / Time No Known Allergies Allergy Verified 04/10/17 09:12 Home Medications: Ambulatory Orders Pravastatin Sodium [Pravachol -] 40 mg PO HS 10/12/14 Insulin (Levemir) [Levemir Flexpen -] 30 units SQ HS #1 pen 10/14/14 Sitagliptin Phosphate [Januvia -] 25 mg PO DAILY@0700 #90 tab 10/14/14 Furosemide [Lasix -] 40 mg PO BID #30 tablet 03/01/16 Polyethylene Glycol 3350 [Miralax 119 gm Btl -] 17 gm PO BID bottle 06/24/16 Albuterol 2.5/Ipratropium 0.5 [Duoneb -] 1 amp NEB TIDR amp 03/07/17 Acetaminophen 325 mg PO PRN 03/21/17 Docusate Sodium [Colace] 100 mg PO DAILY 03/21/17 Guaifenesin 100 mg PO QID 03/21/17 Ipratropium 0.02% Nebulizer [Atrovent 0.02% Nebulizer -] 0.5 mg IH PRN 03/21/17 Apixaban [Eliquis -] 2.5 mg PO BID #60 tablet 03/31/17 Metoprolol Succinate [Toprol Xl -] 150 mg PO DAILY #90 tablet 03/31/17 Spironolactone [Aldactone -] 25 mg PO DAILY #30 tablet 03/31/17 Review of Systems - Review of Systems Able to Perform ROS?: Yes Comments:: 04/10/17 09:18 GENERAL/CONSTITUTIONAL: No fever or chills. No weakness. HEAD, EYES, EARS, NOSE AND THROAT: No change in vision. No ear pain or discharge. No sore throat. CARDIOVASCULAR: +SOB. No chest pain. RESPIRATORY: No cough, wheezing, or hemoptysis. GASTROINTESTINAL: No nausea, vomiting, diarrhea or constipation. GENITOURINARY: No dysuria, frequency, or change in urination. MUSCULOSKELETAL: No joint or muscle swelling or pain. No neck or back pain. SKIN: No rash NEUROLOGIC: No headache, vertigo, loss of consciousness, or change in strength/ sensation. ENDOCRINE: No increased thirst. No abnormal weight change. HEMATOLOGIC/LYMPHATIC: No anemia, easy bleeding, or history of blood clots. ALLERGIC/IMMUNOLOGIC: No hives or skin allergy. <Bradley Swartz - Last Filed: 04/10/17 09:51> *Physical Exam - Vital Signs Last Vital Signs Temp Pulse Resp BP Pulse Ox 97.8 F 71 28 H 82/57 93 L 04/10/17 09:12 04/10/17 09:12 04/10/17 09:12 04/10/17 09:12 04/10/17 09:12 - Physical Exam Comments: 04/10/17 09:51 GENERAL: Awake, alert, and fully oriented, in no acute distress HEAD: No signs of trauma EYES: PERRLA, EOMI, sclera anicteric, conjunctiva clear ENT: Auricles normal inspection, hearing grossly normal, nares patent, oropharynx clear without exudates. Moist mucosa NECK: Normal ROM, supple, no lymphadenopathy, JVD, or masses LUNGS: Breath sounds equal, clear to auscultation bilaterally. No wheezes.Crackles half way up. HEART: Regular rate and rhythm, normal S1 and S2, no murmurs, rubs or gallops ABDOMEN: Soft, nontender, normoactive bowel sounds. No guarding, no rebound. No masses EXTREMITIES: 1+ pitting edema to the knees bilaterally. Normal range of motion , no edema. No clubbing or cyanosis. No cords, erythema, or tenderness NEUROLOGICAL: Cranial nerves II through XII grossly intact. Normal speech, normal gait SKIN: Warm, Dry, normal turgor, no rashes or lesions noted. <Bradley Swartz - Last Filed: 04/10/17 09:51> ED Treatment Course - LABORATORY CBC & Chemistry Diagram: 04/10/17 09:52 04/10/17 09:52 <Liz Arce - Last Filed: 04/10/17 13:27> Medical Decision Making - Medical Decision Making 04/10/17 13:05 Pt presents to the ED complaining of shortness of breath that is worse than his chronic shortness of breath. He was unable to sleep last night despite his home O2 and bipap. No fevers. Initial concern for CHF exacerbation vs COPD exacerbation. Labs show increase in BNP. Will treat with IV lasix. Case discussed at length with Dr. Moseley, who is willing to admit the patient for diuresis and continued monitoring, but also feels that this may be a reflection of the patient's chronic, very severe illness. Family desires that the patient be admitted--they feel uncomfortable caring for the patient at home. I have explained to the patient and his family that he is likley to always be short of breath because of his chronic severe conditions. The patient's son understands that he is at the end of his life, but wish him to have more symptomatic treatment in the hospital. Patient's son and daughter have asked for a family meeting during this admission to determine plan of care. <Liz Arce - Last Filed: 04/10/17 13:27> *DC/Admit/Observation/Transfer - Attestations Scribe Attestion: 04/10/17 09:19 Documentation prepared by Bradley Swartz, acting as biomedical engineer for Liz Arce MD. <Bradley Swartz - Last Filed: 04/10/17 09:51> - Discharge Dispostion Admit: Yes <Liz Arce - Last Filed: 04/10/17 13:27> Diagnosis at time of Disposition: COPD with acute exacerbation CHF, acute on chronic Qualifiers: Congestive heart failure type: unspecified Qualified Code(s): I50.9 - Heart failure, unspecified - Discharge Dispostion Condition at time of disposition: Fair - Referrals Referrals: Sunil Moseley MD [Primary Care Provider] -
[2017-04-10 09:16] VITALS: BMI 41.6
[2017-04-10 10:07] LABS: BASO % 1.4 % (0-2.0); EOS % 1.9 % (0-4.5); HEMATOCRIT 37.7 % (35.4-49); HEMOGLOBIN 12.2 GM/dL (11.7-16.9); LYMPH % 12.2 % (8-40); MCH 29.8 pg (25.7-33.7); MCHC 32.3 g/dl (32.0-35.9); MEAN CELL VOLUME 92.3 fl (80-96); MEAN PLT VOLUME 7.8 fl (7.5-11.1); NEUT % 74.5 % (42.8-82.8); PLATELET COUNT 156 K/MM3 (134-434); RBC 4.09 M/mm3 (4.00-5.60); RDW 15.3 % (11.9-15.9); WHITE BLOOD COUNT 6.3 K/mm3 (4.0-10.0)
[2017-04-10 10:39] LABS: ANION GAP 4 (8-16); BILIRUBIN,TOTAL 0.5 mg/dL (0.2-1.0); BLOOD UREA NITROGEN 28 mg/dL (7-18); CALCIUM 8.3 mg/dL (8.5-10.1); CHLORIDE 95 mmol/L (98-107); CO2 38 mmol/L (21-32); CREATININE 1.4 mg/dL (0.7-1.3); GLUCOSE,RANDOM 96 mg/dL (74-106); POTASSIUM 4.7 mmol/L (3.5-5.1); SGOT/AST 15 U/L (15-37); SGPT/ALT 32 U/L (12-78); SODIUM 137 mmol/L (136-145); TOT PROT 5.9 g/dl (6.4-8.2)
[2017-04-10 10:42] LABS: ALK PHOS 73 U/L (45-117)
[2017-04-10] MEDS ORDERED: FUROSEMIDE 40 MG/4 ML INJECTABLE VIAL IVPUSH ONE (12:29)
[2017-04-10] MEDS ORDERED: FUROSEMIDE 40 MG/4 ML INJECTABLE VIAL ONE (12:57)
[2017-04-10] MEDS ORDERED: METOPROLOL SUCCINATE 100 MG TAB.SR.24H (FP) PO ONE (15:26)
--- NOTE | 2017-04-10 15:29 | HP ---
Admitting History and Physical - Admission Chief Complaint: 86 y.o M with recent hospitalization for respiratory failure/ ILD/CHF and new A.Fib was BIBEMS due last night episode of SOB, dyspnea, worsened LE edema, low O2SAT 84% History of Present Illness: Persistent 6.7cm left basilar atelectasis/consolidation. CABG ASHD. DM type on Levemir/Januvia.. CRI. 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 JUAN-at nights using CPAP. New onset A.Fib. CHF. 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 History of Recent Travel: No Home Medications - Allergies Allergies/Adverse Reactions: Allergies Allergy/AdvReac Type Severity Reaction Status Date / Time No Known Allergies Allergy Verified 04/10/17 09:12 - Home Medications Home Medications: Ambulatory Orders Pravastatin Sodium [Pravachol -] 40 mg PO HS 10/12/14 Sitagliptin Phosphate [Januvia -] 25 mg PO DAILY@0700 #90 tab 10/14/14 Furosemide [Lasix -] 40 mg PO BID #30 tablet 03/01/16 Polyethylene Glycol 3350 [Miralax 119 gm Btl -] 17 gm PO BID bottle 06/24/16 Albuterol 2.5/Ipratropium 0.5 [Duoneb -] 1 amp NEB TIDR amp 03/07/17 Acetaminophen 325 mg PO PRN 03/21/17 Docusate Sodium [Colace] 100 mg PO DAILY 03/21/17 Ipratropium 0.02% Nebulizer [Atrovent 0.02% Nebulizer -] 0.5 mg IH PRN 03/21/17 Spironolactone [Aldactone -] 25 mg PO DAILY #30 tablet 03/31/17 Aspirin 81 mg PO DAILY 04/10/17 Budesonide/Formeterol Fumarate [SYMBICORT 160/4.5mcg -] 1 inh PO DAILY 04/10/17 Clotrimazole/Betamethasone Dip [Clotrimazole-Betamethasone Crm] 45 gm TP BID Insulin Glargine,Hum.rec.anlog [Lantus] 30 unit SQ DAILY 04/10/17 Nystatin 5 5ml PO BID 04/10/17 Omeprazole Magnesium 40 mg PO DAILY 04/10/17 Telmisartan [Micardis] 20 mg PO DAILY 04/10/17 Apixaban [Eliquis -] 2.5 mg PO BID tablet 04/11/17 Furosemide [Lasix] 40 mg PO BIDLASIX #60 tablet 04/11/17 Metoprolol Succinate [Toprol Xl] 150 mg PO AM #90 tab.er.24h 04/11/17 Home Medications (free text): On Toprol XL 150 mg QD. Eliquis 2.5 mg BID. ASA was stopped due to Hemoptysis during the last hospitalization. Levemir 30 units QD. Januvia 25 mg QD. Spironolactone 25 mg QD Family Disease History - Family Disease History Family History: Unremarkable Review of Systems - Review of Systems Constitutional: reports: Lethargy, Loss of Appetite, Weakness Eyes: reports: No Symptoms HENT: reports: Nasal Congestion. denies: Difficult Swallowing, Epistaxis, Throat Pain, Toothache Neck: denies: Decreased ROM, Lumps, Pain on Movement Cardiovascular: reports: Edema, Shortness of Breath. denies: Chest Pain, Palpitations Respiratory: reports: Cough, Exercise Intolerance, Orthopnea, PND, Snoring, SOB , SOB on Exertion. denies: Hemoptysis, Wheezing Gastrointestinal: reports: Bloating, Constipation. denies: Vomiting, Vomiting Blood Genitourinary: denies: Burning, Discharge, Dysuria, Incontinence, Testicular Mass, Testicular Pain Breasts: reports: No Symptoms Reported Musculoskeletal: reports: No Symptoms Integumentary: reports: No Symptoms Neurological: reports: No Symptoms Endocrine: reports: No Symptoms Hematology/Lymphatic: reports: No Symptoms Psychiatric: reports: No Symptoms Physical Examination Vital Signs: Vital Signs Temperature 97.8 F 04/10/17 09:12 Pulse Rate 107 H 04/10/17 14:41 Respiratory Rate 22 04/10/17 14:00 Blood Pressure 120/70 04/10/17 14:00 O2 Sat by Pulse Oximetry (%) 99 04/10/17 14:41 Constitutional: Yes: Anxious, Moderate Distress, Obese Eyes: Yes: Conjunctiva Clear, EOM Intact HENT: Yes: Atraumatic, Normocephalic. No: Drooling Neck: Yes: Supple, Trachea Midline Cardiovascular: Yes: Pulse Irregular, Murmur, S1, S2. No: Tachycardia, JVD, Gallop Respiratory: Yes: Regular, Cough, On BiPap, Rales (Few B/B), SOB, SOB on Exertion Gastrointestinal: Yes: Normal Bowel Sounds, Abdomen, Obese. No: Ascites, Palpable Mass, Tenderness ...Rectal Exam: Yes: Deferred Renal/: No: Anuria, Bladder Distention, CVA Tenderness - Left Breast(s): Yes: WNL Extremities: No: Amputation, Calf Tenderness, Cold, Cyanosis Edema: Yes Edema: LLE: 3+, RLE: 3+ Peripheral Pulses WNL: No Neurological: Yes: Alert, Oriented. No: Aphasia, Loss of Sensation, Numbness ...Motor Strength: WNL Psychiatric: Yes: WNL, Alert, Oriented. No: Agitated, Suicidal Ideation Labs: CBC, BMP 04/10/17 09:52 04/10/17 09:52 Laboratory Results - last 24 hr 04/10/17 04/10/17 09:52 09:52 WBC 6.3 D RBC 4.09 Hgb 12.2 Hct 37.7 MCV 92.3 MCH 29.8 MCHC 32.3 RDW 15.3 Plt Count 156 D MPV 7.8 D Neutrophils % 74.5 Lymphocytes % 12.2 D Monocytes % 10.0 D Eosinophils % 1.9 D Basophils % 1.4 D Sodium 137 Potassium 4.7 Chloride 95 L D Carbon Dioxide 38 H Anion Gap 4 L BUN 28 H D Creatinine 1.4 H D Creat Clearance w eGFR 48.16 Random Glucose 96 D Calcium 8.3 L Total Bilirubin 0.5 D AST 15 D ALT 32 D Alkaline Phosphatase 73 Creatine Kinase 15 L Troponin I 0.02 D B-Natriuretic Peptide 2188.70 H Total Protein 5.9 L Albumin 3.0 L Problem List - Problems (1) Atrial fibrillation Assessment/Plan: Eljaimie, Toprol Code(s): I48.91 - UNSPECIFIED ATRIAL FIBRILLATION Qualifiers: Atrial fibrillation type: chronic Qualified Code(s): I48.2 - Chronic atrial fibrillation (2) Acute on chronic diastolic CHF (congestive heart failure) Assessment/Plan: Rate control with Toprol 100 mg QD Eliquis BID for A/C lasix IV Observe. Code(s): I50.33 - ACUTE ON CHRONIC DIASTOLIC (CONGESTIVE) HEART FAILURE (3) Respiratory failure Assessment/Plan: BIPAP, O2 NC CXR-neg Avoid PO sedation/ Code(s): J96.90 - RESPIRATORY FAILURE, UNSP, UNSP W HYPOXIA OR HYPERCAPNIA Qualifiers: Chronicity: acute on chronic Respiratory failure complication: hypercapnia Qualified Code(s): J96.22 - Acute and chronic respiratory failure with hypercapnia
[2017-04-10] MEDS ORDERED: ACETAMINOPHEN 325 MG TABLET (FP) PO SCH (15:30)
--- NOTE | 2017-04-10 16:05 | EKG ---
Test Reason : Blood Pressure : / mmHG Vent. Rate : 064 BPM Atrial Rate : 227 BPM P-R Int : 000 ms QRS Dur : 104 ms QT Int : 424 ms P-R-T Axes : 000 -20 -26 degrees QTc Int : 437 ms ATRIAL FIBRILLATION WITH PREMATURE VENTRICULAR OR ABERRANTLY CONDUCTED COMPLEXES NONSPECIFIC ST AND T WAVE ABNORMALITY ABNORMAL ECG WHEN COMPARED WITH ECG OF 22-MAR-2017 06:23, VENT. RATE HAS DECREASED BY 53 BPM T WAVE INVERSION NOW EVIDENT IN INFERIOR LEADS NONSPECIFIC T WAVE ABNORMALITY, IMPROVED IN LATERAL LEADS Confirmed by Raul Delatorre ([id number]) on 04/10/2017 4:04:36 PM Referred By: Confirmed By:Raul Delatorre
[2017-04-10] MEDS ORDERED: METOPROLOL SUCCINATE 50 MG TAB.SR.24H (FP) ONE (16:13)
[2017-04-10] MEDS ORDERED: INSULIN SLIDING SCALE (NOVOLOG) 1 VIAL SQ SCH ×2 (16:30)
--- NOTE | 2017-04-10 16:46 | CON.CARD ---
Consult Consult Specialty:: cardiology Reason for Consultation:: shortness of breath; CHF; (seen for Dr. Ricks) - History of Present Illness Chief Complaint: Pt c/o shortness of breath. History of Present Illness: The patient is an 86 year old white male (onel Benavides), BIBA from home with a significant past medical history of CABG, DM, CKD, atrial fibrillation, diastolic CHF, hyperlipidemia, obesity, and COPD (on 3L of home O2), who presents to the emergency department with SOB. The patient was recently seen here in the ER on 03/21/16, admitted, treated for pneumonia, and was recently discharged home about 5 days ago. Patient notes progressively worsening SOB over the span of his 5 days being home. Notes having no improvement of his SOB with bipap. The patient reports being seen in this Tuesday where he received an injection of lasix. Patient notes after the injection having a residual 7 pound weight loss (measured on 2 different scales). He denies any recent fevers, chills, headache or dizziness. He denies any recent nausea, vomit , diarrhea or constipation. He denies any recent chest pain.. He denies any recent dysuria, frequency, urgency or hematuria. Allergies: NKA Past surgical history: Quadruple bypass (30 years ago) Social History: Former smoker (over 30 years ago). Denies EtOH use and recreational drug use. Primary Care Physician: Experimental Worker: Guest House Manager: Dr. 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 History of Recent Travel: No Home Medications - Allergies Allergies/Adverse Reactions: Allergies Allergy/AdvReac Type Severity Reaction Status Date / Time No Known Allergies Allergy Verified 04/10/17 09:12 - Home Medications Home Medications: Ambulatory Orders Pravastatin Sodium [Pravachol -] 40 mg PO HS 10/12/14 Sitagliptin Phosphate [Januvia -] 25 mg PO DAILY@0700 #90 tab 10/14/14 Furosemide [Lasix -] 40 mg PO BID #30 tablet 03/01/16 Polyethylene Glycol 3350 [Miralax 119 gm Btl -] 17 gm PO BID bottle 06/24/16 Albuterol 2.5/Ipratropium 0.5 [Duoneb -] 1 amp NEB TIDR amp 03/07/17 Acetaminophen 325 mg PO PRN 03/21/17 Docusate Sodium [Colace] 100 mg PO DAILY 03/21/17 Ipratropium 0.02% Nebulizer [Atrovent 0.02% Nebulizer -] 0.5 mg IH PRN 03/21/17 Spironolactone [Aldactone -] 25 mg PO DAILY #30 tablet 03/31/17 Acyclovir 5% Cream [Zovirax *Cream*] 1 applic TP DAILY 04/10/17 Aspirin 81 mg PO DAILY 04/10/17 Budesonide/Formeterol Fumarate [SYMBICORT 160/4.5mcg -] 1 inh PO DAILY 04/10/17 Clotrimazole/Betamethasone Dip [Clotrimazole-Betamethasone Crm] 45 gm TP BID Insulin Glargine,Hum.rec.anlog [Lantus] 30 unit SQ DAILY 04/10/17 Nystatin 5 5ml PO BID 04/10/17 Omeprazole Magnesium 40 mg PO DAILY 04/10/17 Telmisartan [Micardis] 20 mg PO DAILY 04/10/17 Valacyclovir HCl [Valtrex] 1,000 mg PO BID 04/10/17 Family Disease History - Family Disease History Family History: Unable to Obtain Review of Systems - Review of Systems Constitutional: reports: Other Eyes: reports: No Symptoms HENT: reports: No Symptoms Neck: reports: No Symptoms Cardiovascular: reports: Shortness of Breath Respiratory: reports: Exercise Intolerance, SOB Gastrointestinal: reports: No Symptoms Genitourinary: reports: No Symptoms Breasts: reports: No Symptoms Reported Musculoskeletal: reports: Decreased ROM Neurological: reports: No Symptoms Psychiatric: reports: No Symptoms - Risk Factors Known Risk Factors: Yes: Age, Diabetes Mellitus, Gender, Hypercholesterolemia, Hypertension, Physical Inactivity, Other (obesity) Vital Signs: Vital Signs Temperature 97.8 F 04/10/17 09:12 Pulse Rate 76 04/10/17 16:22 Respiratory Rate 24 04/10/17 16:22 Blood Pressure 118/68 04/10/17 16:22 O2 Sat by Pulse Oximetry (%) 94 L 04/10/17 16:22 Constitutional: Yes: Calm Eyes: Yes: WNL HENT: Yes: WNL Neck: Yes: WNL Respiratory: Yes: Diminished Gastrointestinal: Yes: Soft, Abdomen, Obese Renal/: No: Anuria Cardiovascular: Yes: Pulse Irregular JVD: No - Other Data Labs, Other Data: CBC, BMP 04/10/17 09:52 04/10/17 09:52 Troponin, BNP 04/10/17 09:52 Troponin I 0.02 D B-Natriuretic Peptide 2188.70 H Troponin, BNP 04/10/17 09:52 Troponin I 0.02 D B-Natriuretic Peptide 2188.70 H Problem List - Problems (1) Acute on chronic diastolic CHF (congestive heart failure) Assessment/Plan: On ARB, spironolactone, furosemide. Likely normal LVEF by ECHO this month. F/u Is and Os, daily weight, BUN/Cr, electrolytes. Code(s): I50.33 - ACUTE ON CHRONIC DIASTOLIC (CONGESTIVE) HEART FAILURE (2) COPD with acute exacerbation Code(s): J44.1 - CHRONIC OBSTRUCTIVE PULMONARY DISEASE W (ACUTE) EXACERBATION (3) Community acquired pneumonia Assessment/Plan: f/u with supervisor phosphoric acid, ID. Code(s): J18.9 - PNEUMONIA, UNSPECIFIED ORGANISM (4) DM type 2 (diabetes mellitus, type 2) Code(s): E11.9 - TYPE 2 DIABETES MELLITUS WITHOUT COMPLICATIONS Qualifiers: Chronic kidney disease stage: stage 3 (moderate) (5) Atrial fibrillation Assessment/Plan: on apixaban for anticoagulation. May add AV conduction nadine (metoprololr ER or diltiazem ER) if needed for rapid HR. Code(s): I48.91 - UNSPECIFIED ATRIAL FIBRILLATION (6) HTN (hypertension) Assessment/Plan: On ARB (use either losartan or valsartan; both were on list). If needed for rapid HR, may add metoprolol ER or diltiazem ER. On Aldactone and ARB; f/u BUN/Cr and electrolytes. On furosemide. Code(s): I10 - ESSENTIAL (PRIMARY) HYPERTENSION (7) Hyperlipidemia Assessment/Plan: on statin; f/u lipids and TSH. Code(s): E78.5 - HYPERLIPIDEMIA, UNSPECIFIED (8) Morbid obesity Code(s): E66.01 - MORBID (SEVERE) OBESITY DUE TO EXCESS CALORIES
[2017-04-10 16:54] LABS: ARTERIAL BLD GAS O2 SATURATION 94.3 % (90-98.9); ARTERIAL BLOOD GAS PCO2 48.5 mmHg (35-45); ARTERIAL BLOOD GAS PO2 68.1 mmHg (68-100); ARTERIAL BLOOD GAS pH 7.46 (7.35-7.45); CARBOXYHEMOGLOBIN 2.1 gm% (0.5-2.0)
[2017-04-10 16:58] LABS: ARTERIAL BLOOD GAS BASE EXCESS 9.4 meq/l (-2-2)
[2017-04-10] MEDS: INSULIN SLIDING SCALE (NOVOLOG) 1 VIAL SQ SCH (18:03)
[2017-04-10] MEDS ORDERED: FUROSEMIDE 40 MG/4 ML INJECTABLE VIAL IVPUSH SCH (22:00)
[2017-04-10] MEDS ORDERED: POLYETHYLENE GLYCOL 3350 119 GM BTL PO SCH (22:00)
[2017-04-10] MEDS ORDERED: ATORVASTATIN CA 10 MG TABLET (FP) PO SCH (22:00)
[2017-04-10] MEDS ORDERED: PATIENT'S OWN MEDICATION (NON-FORMULARY) (Pravastatin Sodium 40 MG) PO SCH (22:00)
[2017-04-10] MEDS ORDERED: APIXABAN 2.5 MG TABLET PO SCH (22:00)
[2017-04-10] MEDS ORDERED: ALBUTEROL SO4 2.5/IPRATROPIUM 0.5 INH SOL 3 ML VIAL.NEB. NEB SCH (22:00)
[2017-04-11] MEDS ORDERED: ATORVASTATIN CA 40 MG TABLET (FP) ONE (01:25)
[2017-04-11] MEDS ORDERED: FUROSEMIDE 40 MG/4 ML INJECTABLE VIAL ONE ×2 (01:25→08:38)
[2017-04-11] MEDS: INSULIN SLIDING SCALE (NOVOLOG) 1 VIAL SQ SCH ×2 (01:47→06:26)
[2017-04-11] MEDS ORDERED: sitaGLIPtin PHOSPHATE 25 MG TABLET (FP) PO SCH (07:00)
--- NOTE | 2017-04-11 08:25 | PN ---
Progress Note (short form) - Note Progress Note: Observe overnight. Respiratory status improved Discussed with the son and . Erly re-admission is likely due to patient respiratory and cardiac condition. Last Vital Signs Temp Pulse Resp BP Pulse Ox 98.3 F 82 20 132/75 97 04/11/17 06:00 04/11/17 06:00 04/11/17 06:00 04/11/17 06:00 04/11/17 06:00 Laboratory Results - last 24 hr 04/10/17 04/10/17 04/10/17 09:52 09:52 16:38 WBC 6.3 D RBC 4.09 Hgb 12.2 Hct 37.7 MCV 92.3 MCH 29.8 MCHC 32.3 RDW 15.3 Plt Count 156 D MPV 7.8 D Neutrophils % 74.5 Lymphocytes % 12.2 D Monocytes % 10.0 D Eosinophils % 1.9 D Basophils % 1.4 D Anticoagulation Therapy No Result Required. Puncture Site Right radial ABG pH 7.46 H ABG pCO2 at Pt Temp 48.5 H D ABG pO2 at Pt Temp 68.1 ABG HCO3 34.3 H ABG O2 Sat (Measured) 94.3 ABG O2 Content 15.9 ABG Base Excess 9.4 H Esteban Test No Result Required. Carboxyhemoglobin 2.1 H Methemoglobin 0.9 O2 Delivery Device Nasal cannula Oxygen Flow Rate 3l Vent Mode No Result Required. Vent Rate No Result Required. Mechanical Rate No Result Required. Pressure Support Vent No Result Required. Sodium 137 Potassium 4.7 Chloride 95 L D Carbon Dioxide 38 H Anion Gap 4 L BUN 28 H D Creatinine 1.4 H D Creat Clearance w eGFR 48.16 POC Glucometer Random Glucose 96 D Calcium 8.3 L Total Bilirubin 0.5 D AST 15 D ALT 32 D Alkaline Phosphatase 73 Creatine Kinase 15 L Troponin I 0.02 D B-Natriuretic Peptide 2188.70 H Total Protein 5.9 L Albumin 3.0 L TSH 04/10/17 04/10/17 04/11/17 17:00 17:04 01:46 WBC RBC Hgb Hct MCV MCH MCHC RDW Plt Count MPV Neutrophils % Lymphocytes % Monocytes % Eosinophils % Basophils % Anticoagulation Therapy Puncture Site ABG pH ABG pCO2 at Pt Temp ABG pO2 at Pt Temp ABG HCO3 ABG O2 Sat (Measured) ABG O2 Content ABG Base Excess Esteban Test Carboxyhemoglobin Methemoglobin O2 Delivery Device Oxygen Flow Rate Vent Mode Vent Rate Mechanical Rate Pressure Support Vent Sodium Potassium Chloride Carbon Dioxide Anion Gap BUN Creatinine Creat Clearance w eGFR POC Glucometer 134.72820 Random Glucose Calcium Total Bilirubin AST ALT Alkaline Phosphatase Creatine Kinase 15 L Troponin I 0.02 B-Natriuretic Peptide Total Protein Albumin TSH 2.54 04/11/17 06:20 WBC RBC Hgb Hct MCV MCH MCHC RDW Plt Count MPV Neutrophils % Lymphocytes % Monocytes % Eosinophils % Basophils % Anticoagulation Therapy Puncture Site ABG pH ABG pCO2 at Pt Temp ABG pO2 at Pt Temp ABG HCO3 ABG O2 Sat (Measured) ABG O2 Content ABG Base Excess Esteban Test Carboxyhemoglobin Methemoglobin O2 Delivery Device Oxygen Flow Rate Vent Mode Vent Rate Mechanical Rate Pressure Support Vent Sodium Potassium Chloride Carbon Dioxide Anion Gap BUN Creatinine Creat Clearance w eGFR POC Glucometer 138.75197 Random Glucose Calcium Total Bilirubin AST ALT Alkaline Phosphatase Creatine Kinase Troponin I B-Natriuretic Peptide Total Protein Albumin TSH Awake, alert, NAD On 3 L O2 NC Lungs are Cler with fe rhonchi Heart s1s2 irregular. Abdomen soft, NT, Obese LE +2 edema. Current Active Problems Problem Status Onset Acute on chronic diastolic CHF (congestive heart failure) Acute Atrial fibrillation Acute CHF exacerbation Acute COPD with acute exacerbation Acute HTN (hypertension) Acute Hyperlipidemia Acute Morbid obesity Acute Plan D/C home Use Bipap at home at night during day Lasix PO BID, Spironolactone. 3 L O2/min Toprol. Eliquis BID for A.Fib
[2017-04-11 08:40] LABS: BASO % 0.9 % (0-2.0); EOS % 1.6 % (0-4.5); HEMATOCRIT 39.2 % (35.4-49); HEMOGLOBIN 12.7 GM/dL (11.7-16.9); LYMPH % 14.4 % (8-40); MCH 29.9 pg (25.7-33.7); MCHC 32.3 g/dl (32.0-35.9); MEAN CELL VOLUME 92.7 fl (80-96); MEAN PLT VOLUME 8.2 fl (7.5-11.1); MONO % 10.8 % (3.8-10.2); NEUT % 72.3 % (42.8-82.8); PLATELET COUNT 153 K/MM3 (134-434); RBC 4.23 M/mm3 (4.00-5.60); RDW 15.4 % (11.9-15.9); WHITE BLOOD COUNT 6.4 K/mm3 (4.0-10.0)
--- NOTE | 2017-04-11 08:47 | DS ---
Physical Examination Vital Signs: Vital Signs Temperature 98.3 F 04/11/17 06:00 Pulse Rate 82 04/11/17 06:00 Respiratory Rate 20 04/11/17 06:00 Blood Pressure 132/75 04/11/17 06:00 O2 Sat by Pulse Oximetry (%) 97 04/11/17 06:00 Constitutional: Yes: No Distress, Anxious Eyes: Yes: Conjunctiva Clear, EOM Intact HENT: Yes: Atraumatic, Normocephalic Neck: Yes: Supple, Trachea Midline Cardiovascular: Yes: Pulse Irregular, S1, S2. No: Bradycardia, Tachycardia, JVD Respiratory: Yes: Regular, On Nasal O2, SOB on Exertion. No: Accessory Muscle Use, Bradypnea Gastrointestinal: Yes: Normal Bowel Sounds, Soft, Abdomen, Obese ...Rectal Exam: Yes: Deferred Renal/: No: Anuria, Bladder Distention Breast(s): Yes: WNL Musculoskeletal: No: Back Pain Extremities: No: Amputation Edema: Yes Edema: LLE: 1+, RLE: 1+ Integumentary: Yes: WNL Neurological: Yes: Alert, Oriented. No: Aphasia ...Motor Strength: WNL Psychiatric: Yes: WNL Labs: CBC, BMP 04/10/17 09:52 Discharge Summary Reason For Visit: COPD/CHF Current Active Problems Acute on chronic diastolic CHF (congestive heart failure) (Acute) Atrial fibrillation (Acute) COPD with acute exacerbation (Acute) HTN (hypertension) (Acute) Hyperlipidemia (Acute) Morbid obesity (Acute) Respiratory failure (Acute) Condition: Fair - Instructions Referrals: Sunil Moseley MD [Primary Care Provider] - - Home Medications Comprehensive Discharge Medication List: Ambulatory Orders Pravastatin Sodium [Pravachol -] 40 mg PO HS 10/12/14 Sitagliptin Phosphate [Januvia -] 25 mg PO DAILY@0700 #90 tab 10/14/14 Furosemide [Lasix -] 40 mg PO BID #30 tablet 03/01/16 Polyethylene Glycol 3350 [Miralax 119 gm Btl -] 17 gm PO BID bottle 06/24/16 Albuterol 2.5/Ipratropium 0.5 [Duoneb -] 1 amp NEB TIDR amp 03/07/17 Acetaminophen 325 mg PO PRN 03/21/17 Docusate Sodium [Colace] 100 mg PO DAILY 03/21/17 Ipratropium 0.02% Nebulizer [Atrovent 0.02% Nebulizer -] 0.5 mg IH PRN 03/21/17 Spironolactone [Aldactone -] 25 mg PO DAILY #30 tablet 03/31/17 Aspirin 81 mg PO DAILY 04/10/17 Budesonide/Formeterol Fumarate [SYMBICORT 160/4.5mcg -] 1 inh PO DAILY 04/10/17 Clotrimazole/Betamethasone Dip [Clotrimazole-Betamethasone Crm] 45 gm TP BID Insulin Glargine,Hum.rec.anlog [Lantus] 30 unit SQ DAILY 04/10/17 Nystatin 5 5ml PO BID 04/10/17 Omeprazole Magnesium 40 mg PO DAILY 04/10/17 Telmisartan [Micardis] 20 mg PO DAILY 04/10/17 Apixaban [Eliquis -] 2.5 mg PO BID tablet 04/11/17 Furosemide [Lasix] 40 mg PO BIDLASIX #60 tablet 04/11/17 Metoprolol Succinate [Toprol Xl] 150 mg PO AM #90 tab.er.24h 04/11/17
[2017-04-11 08:59] LABS: MAGNESIUM 1.9 mg/dL (1.8-2.4); PHOSPHOROUS 3.2 mg/dL (2.5-4.9)
[2017-04-11 09:40] VITALS: BP 141/76; PULSE 69; TEMP 98.1
[2017-04-11] MEDS ORDERED: DOCUSATE SODIUM 100 MG CAPSULE (FP) PO SCH (10:00)
[2017-04-11] MEDS ORDERED: PATIENT'S OWN MEDICATION (NON-FORMULARY) (Telmisartan [Micardis] 20 MG) PO SCH (10:00)
[2017-04-11] MEDS ORDERED: LOSARTAN POTASSIUM 50 MG TABLET (FP) PO SCH (10:00)
[2017-04-11] MEDS ORDERED: SPIRONOLACTONE 25 MG TABLET (FP) PO SCH (10:00)
[2017-04-11] MEDS ORDERED: INSULIN DETEMIR 100 UNITS/ML MDV SQ SCH (10:00)
[2017-04-11] MEDS ORDERED: VALSARTAN 80 MG TABLET (UD) PO SCH (10:00)
[2017-04-11] MEDS ORDERED: PATIENT'S OWN MEDICATION (NON-FORMULARY) (Insulin Glargine,Hum.Rec.Anlog [Lantus] 30 UNIT) SQ SCH (10:00)
== END 2017-04-11 09:54 | disposition home or self-care (01) | DRG 291 ==
LOC: JER 08:52 → JERBED 15:49
PROVIDERS: ADMIT Internal Medicine; ATTEND Internal Medicine
DX: I13.0 Hypertensive heart and chronic kidney disease with heart failure and stage 1 through stage 4 chronic kidney disease, or unspecified chronic kidney disease (principal); I50.33 Acute on chronic diastolic (congestive) heart failure; J96.90 Respiratory failure, unspecified, unspecified whether with hypoxia or hypercapnia; J18.9 Pneumonia, unspecified organism; N17.9 Acute kidney failure, unspecified; J44.1 Chronic obstructive pulmonary disease with (acute) exacerbation; J98.11 Atelectasis; Z68.41 Body mass index [BMI] 40.0-44.9, adult; E11.22 Type 2 diabetes mellitus with diabetic chronic kidney disease; N18.9 Chronic kidney disease, unspecified; I48.91 Unspecified atrial fibrillation; E66.01 Morbid (severe) obesity due to excess calories; Z79.4 Long term (current) use of insulin; Z79.84 Long term (current) use of oral hypoglycemic drugs; Z99.81 Dependence on supplemental oxygen; Z95.1 Presence of aortocoronary bypass graft; Z87.891 Personal history of nicotine dependence; I25.10 Atherosclerotic heart disease of native coronary artery without angina pectoris; G47.33 Obstructive sleep apnea (adult) (pediatric); E78.5 Hyperlipidemia, unspecified; M19.019 Primary osteoarthritis, unspecified shoulder; M47.892 Other spondylosis, cervical region
CPT/HCPCS: 36415; 36600; 71045-TC; 80053; 82375; 82550; 82803; 82962; 83050; 83735; 83880; 84100; 84443; 84484; 85025; 85027; 93005; 93010; 99285-25

== ENCOUNTER 2018-02-20 12:43 | Emergency (ER) | payer OTHER ==
--- NOTE | 2018-02-20 13:27 | PDOC ---
History of Present Illness - General Chief Complaint: Hemorrhoids Stated Complaint: LOW BLOOD PRESSURE Time Seen by Provider: 02/20/18 12:52 History Source: Patient, Family Exam Limitations: No Limitations - History of Present Illness Initial Comments: 02/20/18 13:22 Pt is an 87yo m with PMH of CAD s/p CABG 20years ago, COPD on 3.5L NC at home, HTN, DM, hemorrhoids BIBA after hemorrhoid ruptured earlier today associated with pain. Per , the exudate was yellow in color. When EMS arrived on scene , they stated that BP was low around 80 systolic. He was given 100cc fluids. Pt said he was diagnosed with hemorrhoids 3 weeks ago and was started on Miralax. Last BM was earlier today which caused hemorrhoid rupture. Denies blood in stool , lightheadedness, chest pain, syncope, abdominal pain, n/v/d, urinary symptoms , fever, chills. Pt endorses pain at location of hemorrhoid and shortness of breath which is not new to him. PMD: Kavitha PMH: see hpi PSH: see hpi Meds: see med rec Allergies: nkda Past History - Past Medical History Allergies/Adverse Reactions: Allergies Allergy/AdvReac Type Severity Reaction Status Date / Time No Known Allergies Allergy Verified 04/10/17 09:12 Home Medications: Ambulatory Orders Pravastatin Sodium [Pravachol -] 40 mg PO DAILY 10/12/14 Sitagliptin Phosphate [Januvia -] 25 mg PO DAILY@0700 #90 tab 10/14/14 Ipratropium 0.02% Nebulizer [Atrovent 0.02% Nebulizer -] 0.5 mg IH PRN 03/21/17 Spironolactone [Aldactone -] 25 mg PO DAILY #30 tablet 03/31/17 Aspirin 81 mg PO DAILY 04/10/17 Insulin Glargine,Hum.rec.anlog [Lantus] 60 unit SQ DAILY 04/10/17 Febuxostat [Uloric] 40 mg PO DAILY 02/20/18 Furosemide [Lasix -] 40 mg PO HS 02/20/18 Furosemide [Lasix] 80 mg PO DAILY 02/20/18 Levothyroxine [Synthroid -] 0.05 mg PO DAILY 02/20/18 Linaclotide [Linzess] 290 mcg PO DAILY 02/20/18 Linaclotide [Linzess] 290 mcg PO DAILY 02/20/18 Metoprolol Succinate [Toprol Xl] 150 mg PO BID 02/20/18 Anemia: No Asthma: No Cancer: No Cardiac Disorders: Yes CVA: No COPD: Yes CHF: No Dementia: Yes (PER FAMILY/MILD) Diabetes: Yes GI Disorders: No Disorders: No HTN: No Hypercholesterolemia: No Liver Disease: No Seizures: No Thyroid Disease: No Lung CA: No (MESOTHELIOMA) - Surgical History Abdominal Surgery: No Appendectomy: No Cardiac Surgery: Yes (CABG) Cholecystectomy: No Lung Surgery: No Neurologic Surgery: No Orthopedic Surgery: No - Immunization History Immunization Up to Date: Yes - Suicide/Smoking/Psychosocial Hx Smoking History: Former smoker Have you smoked in the past 12 months: No If you are a former smoker, when did you quit?: 30 YRS AGO Hx Alcohol Use: No Drug/Substance Use Hx: No Substance Use Type: None Hx Substance Use Treatment: No Review of Systems - Review of Systems Constitutional: No: Chills, Fever HEENTM: No: Symptoms Reported Respiratory: Yes: Shortness of Breath. No: Cough, Hemoptysis Cardiac (ROS): No: Chest Pain, Lightheadedness, Palpitations, Syncope ABD/GI: Yes: Constipated. No: Diarrhea, Nausea, Rectal Bleeding, Vomiting, Tarry Stools : No: Burning, Dysuria Musculoskeletal: No: Back Pain Integumentary: Yes: See HPI Neurological: No: Symptoms reported *Physical Exam - Physical Exam General Appearance: Yes: Nourished, Appropriately Dressed, Mild Distress HEENT: positive: EOMI, STACEY. negative: Pale Conjunctivae Neck: positive: Trachea midline, Supple. negative: Carotid bruit, Lymphadenopathy (R), Lymphadenopathy (L) Respiratory/Chest: positive: Decreased Breath Sounds (in L lower lung field). negative: Chest Tender, Rhonchi, Stridor, Wheezing Cardiovascular: positive: Regular Rhythm, Regular Rate, S1, S2. negative: Edema , JVD, Murmur Gastrointestinal/Abdominal: positive: Normal Bowel Sounds, Soft, Distended. negative: Guarding, Rebound, Tenderness Male Genitalia: positive: normal genitalia Rectal Exam: positive: normal rectal tone, hemorrhoids, other (no active bleeding, ruptured hemarrhoids ttp, firm hemorrhoid not tender, no surrounding erythema or warmth) Musculoskeletal: negative: CVA Tenderness Extremity: positive: Normal Capillary Refill. 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 Vitals: 100%3L NC, 123/, HR 70s PE: hemorrhoids, tender at ruptured location, no active bleeding with firm hemorrhoid that is not tender to palpation. Low suspicion for infection given no warmth or exudates. Will order CBC. If normal can be dc home. Will give referral to surgeon for hemorrhoid removal. Will call Dr. Plummer Will give Tylenol for pain Labs wnl. Contacted alejandrina Acevedo with DC home and surgery f/u. Pt given information for surgery and GI. Will follow up. Given strict return precautions. *DC/Admit/Observation/Transfer Diagnosis at time of Disposition: Hemorrhoid Qualifiers: Hemorrhoid type: unspecified Qualified Code(s): K64.9 - Unspecified hemorrhoids - Discharge Dispostion Disposition: HOME Condition at time of disposition: Good Decision to Admit order: No - Referrals Referrals: Sunil Moseley MD [Primary Care Provider] - Arash Sims MD [Staff Physician] - Aaron Lockwood MD [Staff Physician] - - Patient Instructions Additional Instructions: You were seen here today for hemorrhoid that ruptured. Your lab test was normal. I recommend that you continue to see Dr. Plummer and make an appointment with a general surgeon for further management of the hemorrhoids. You can also see a awning maker and installer if you have problems with constipation. GI: Dr. Sims Surgery: Dr. Lockwood Come back to the emergency room if: pain gets worse, you have blood in the stool , you have abdominal pain, you develop fever or if any new concerning symptom develops. Thank you - Post Discharge Activity
[2018-02-20 13:39] VITALS: BMI 35.4
--- NOTE | 2018-02-20 14:01 | PDOC ---
Attending Attestation - HPI HPI: 02/20/18 14:04 87 yo male BIBA with a pmh of HTN, DM, hemorrhoids, CAD s/p CABG, and COPD on 3.5L who presents with ruptured hemorrhoid earlier today after having a bowel movement. As per with , patient has pain at ruptured hemorrhoid with yellow/ white exudate. As per son, patient was given Miralax by PCP secondary to recently diagnosed hemorrhoid, which made BM easier. Denies chest pain, syncope, abdominal pain, nausea, vomiting, diarrhea, blood in stool, fever, chills, lightheadedness, urinary symptoms. PCP: Dr. Plummer <Marlene Velazquez - Last Filed: 02/20/18 14:25> - Resident Resident Name: Zoe Norris - ED Attending Attestation I have performed the following: I have examined & evaluated the patient, The case was reviewed & discussed with the resident, I agree w/resident's findings & plan, Exceptions are as noted - Physicial Exam PE: GENERAL: Awake, alert, and fully oriented, in no acute distress. Morbidly obese. HEAD: No signs of trauma EYES: PERRLA, EOMI, sclera anicteric, conjunctiva clear ENT: Auricles normal inspection, hearing grossly normal, nares patent, oropharynx clear without exudates. Moist mucosa NECK: Normal ROM, supple, no lymphadenopathy, JVD, or masses LUNGS: Breath sounds equal, clear to auscultation bilaterally. No wheezes, and no crackles HEART: Regular rate and rhythm, normal S1 and S2, no murmurs, rubs or gallops ABDOMEN: Soft, nontender, normoactive bowel sounds. No guarding, no rebound. No masses EXTREMITIES: Normal range of motion, no edema. No clubbing or cyanosis. No cords, erythema, or tenderness NEUROLOGICAL: Cranial nerves II through XII grossly intact. Normal speech, normal gait SKIN: Warm, Dry, normal turgor, no rashes or lesions noted. RECTAL: Large external hernia in 9 o'clock position, nontender to palpation. No active bleeding. - Medical Decision Making CBC shows stable H&H. Stable for DC home. <Camelia Mckay - Last Filed: 02/20/18 18:13> Attestations - Attestations Documentation prepared by Marlene Velazquez, acting as medical case manager for Camelia Mckay MD. <Marlene Velazquez - Last Filed: 02/20/18 14:25>
[2018-02-20 14:39] LABS: BASO % 0.3 % (0-2.0); HEMATOCRIT 38.6 % (35.4-49); HEMOGLOBIN 12.3 GM/dL (11.7-16.9); LYMPH % 17.5 % (8-40); MCH 28.6 pg (25.7-33.7); MCHC 31.9 g/dl (32.0-35.9); MEAN CELL VOLUME 89.6 fl (80-96); MONO % 11.2 % (3.8-10.2); PLATELET COUNT 246 K/MM3 (134-434); RDW 17.3 % (11.9-15.9); WHITE BLOOD COUNT 10.9 K/mm3 (4.0-10.0)
[2018-02-20] MEDS ORDERED: ACETAMINOPHEN 500 MG TABLET (FP) PO ONE (14:53)
[2018-02-20] MEDS ORDERED: ACETAMINOPHEN 325 MG TABLET (FP) ONE (15:07)
[2018-02-20 15:55] VITALS: BP 100/68; PULSE 97; TEMP 98.1
--- NOTE | 2018-02-21 17:03 | EKG ---
Test Reason : Blood Pressure : / mmHG Vent. Rate : 069 BPM Atrial Rate : 064 BPM P-R Int : 000 ms QRS Dur : 112 ms QT Int : 408 ms P-R-T Axes : 000 -27 064 degrees QTc Int : 437 ms POOR DATA QUALITY, INTERPRETATION MAY BE ADVERSELY AFFECTED ATRIAL FIBRILLATION ANTERIOR INFARCT , AGE UNDETERMINED ABNORMAL ECG Confirmed by MD MC, DONNA ([id number]) on 02/21/2018 5:02:52 PM Referred By: Confirmed By:DONNA BENTLEY MD
== END 2018-02-20 16:19 | disposition home or self-care (01) ==
LOC: JER 12:43
DX: K64.9 Unspecified hemorrhoids (principal); I25.10 Atherosclerotic heart disease of native coronary artery without angina pectoris; J44.9 Chronic obstructive pulmonary disease, unspecified; Z87.891 Personal history of nicotine dependence; E11.9 Type 2 diabetes mellitus without complications; C45.7 Mesothelioma of other sites
CPT/HCPCS: 36415; 85025; 93005; 93010; 99282-25

== ENCOUNTER 2018-03-30 16:25 | Inpatient (IN) | payer OTHER ==
[2018-03-30] MEDS ORDERED: VANCOMYCIN 1,000 MG in DEXTROSE 5%-WATER - 250 ML IVPB ONE (16:50)
[2018-03-30] MEDS ORDERED: PIPERACILLIN/TAZOB 4.5 GM 4.5 GM in DEXTROSE 5%-WATER 100 ML IVPB ONE (16:50)
--- NOTE | 2018-03-30 16:52 | PDOC ---
History of Present Illness - General History Source: Patient, Family Exam Limitations: No Limitations - History of Present Illness Initial Comments: 03/30/18 17:32 The patient is a 87 year old male, with a significant PMH of hypertension, diabetes mellitus, hemorrhoids, coronary artery disease s/p CABG, and COPD, who presents to the emergency department with a wound on the left buttocks for approx 10 days. The patient states the left buttocks wound has been progressively more painful and getting bigger. The patient states he had a fistula placed 3 weeks ago at [facility] but the wound was not noted at that time. As per patients son, the patient went for a follow up yesterday and saw the nurse at [facility] who advised the patient the wound may be infected and to have the wound evaluated. The patient denies chest pain, shortness of breath, headache and dizziness. Denies fever, chills, nausea, vomit, diarrhea and constipation. Denies dysuria, frequency, urgency and hematuria. Allergies: NKA PCP: Dr Moseley <Nahun Youngblood - Last Filed: 03/30/18 17:32> <Thierno Conde - Last Filed: 03/30/18 18:51> - General Chief Complaint: Wound Stated Complaint: INFECTION Time Seen by Provider: 03/30/18 16:49 Past History <Nahun Youngblood - Last Filed: 03/30/18 17:32> - Past Medical History Anemia: No Asthma: No Cancer: No Cardiac Disorders: Yes CVA: No COPD: Yes CHF: No Dementia: Yes (PER FAMILY/MILD) Diabetes: Yes GI Disorders: No Disorders: No HTN: No Hypercholesterolemia: No Liver Disease: No Seizures: No Thyroid Disease: No Lung CA: No (MESOTHELIOMA) - Surgical History Abdominal Surgery: No Appendectomy: No Cardiac Surgery: Yes (CABG) Cholecystectomy: No Lung Surgery: No Neurologic Surgery: No Orthopedic Surgery: No - Immunization History Immunization Up to Date: Yes - Suicide/Smoking/Psychosocial Hx Smoking History: Former smoker Have you smoked in the past 12 months: No If you are a former smoker, when did you quit?: 30 YRS AGO Hx Alcohol Use: No Drug/Substance Use Hx: No Substance Use Type: None Hx Substance Use Treatment: No <Thierno Conde - Last Filed: 03/30/18 18:51> - Past Medical History Allergies/Adverse Reactions: Allergies Allergy/AdvReac Type Severity Reaction Status Date / Time No Known Allergies Allergy Verified 03/30/18 17:48 Home Medications: Ambulatory Orders Pravastatin Sodium [Pravachol -] 40 mg PO DAILY 10/12/14 Sitagliptin Phosphate [Januvia -] 25 mg PO DAILY@0700 #90 tab 10/14/14 Ipratropium 0.02% Nebulizer [Atrovent 0.02% Nebulizer -] 0.5 mg IH PRN 03/21/17 Spironolactone [Aldactone -] 25 mg PO DAILY #30 tablet 03/31/17 Aspirin 81 mg PO DAILY 04/10/17 Insulin Glargine,Hum.rec.anlog [Lantus] 60 unit SQ DAILY 04/10/17 Febuxostat [Uloric] 40 mg PO DAILY 02/20/18 Furosemide [Lasix -] 40 mg PO HS 02/20/18 Levothyroxine [Synthroid -] 0.05 mg PO DAILY 02/20/18 Linaclotide [Linzess] 290 mcg PO DAILY 02/20/18 Metoprolol Succinate [Toprol Xl] 50 mg PO BID 02/20/18 Apixaban [Eliquis -] 2.5 mg PO BID 03/30/18 Review of Systems - Review of Systems Constitutional: No: Chills, Fever, Night Sweats Respiratory: Yes: Orthopnea, Shortness of Breath. No: Cough Cardiac (ROS): Yes: Edema. No: Chest Pain, Syncope ABD/GI: No: Constipated, Diarrhea, Nausea, Vomiting Integumentary: Yes: See HPI All Other Systems: Reviewed and Negative <Thierno Conde - Last Filed: 03/30/18 18:51> *Physical Exam - Physical Exam Comments: 03/30/18 17:33 GENERAL: The patient is awake, alert, and fully oriented, in no acute distress. HEAD: Normal with no signs of trauma. EYES: Pupils equal, round and reactive to light, extraocular movements intact, sclera anicteric, conjunctiva clear with no pallor. ENT: Ears normal, nares patent, oropharynx clear without exudates. Moist mucous membranes. NECK: Normal range of motion, supple without lymphadenopathy, JVD, or masses. LUNGS: (+) Bibasilar decreased breath sounds bilaterally with crackles, left worse than right. HEART: Regular rate and rhythm, normal S1 and S2 without murmur or rub. ABDOMEN: (+) Protuberant but soft, non tender, non distended. BS wnl. No guarding or rebound. No palpable masses. No hepatosplenomegaly. EXTREMITIES: (+) 2-3+ pitting edema lower extremities bilaterally. Normal range of motion. No clubbing or cyanosis. No cords, erythema, or tenderness. NEUROLOGICAL: Cranial nerves II through XII grossly intact. Normal speech. PSYCH: Normal mood, normal affect. SKIN: (+) 6 cm indurated area left buttocks with central fluctuance. (+) 1 cm area of discoloration. (+) Additional 10 cm area of cellulitis and erythema extending to gluteal cleft, no rectal involvement. No discharge or bleeding. (+ ) Gluteal edema noted. Warm, Dry. <Nahun Youngblood - Last Filed: 03/30/18 17:32> Heart Score/ECG Review #1 ECG reviewed & interpreted by me at: 18:25 General ECG Interpretation: Normal Rate (afib at 85), Normal Intervals (qtc 468) , No acute ischemic changes (nonspecific T wave changes) <Thierno Conde - Last Filed: 03/30/18 18:51> ED Treatment Course - LABORATORY CBC & Chemistry Diagram: 03/30/18 17:10 03/30/18 17:10 <Thierno Conde - Last Filed: 03/30/18 18:51> Medical Decision Making - Medical Decision Making 03/30/18 17:13 A portion of this note was documented by scribe services under my direction. I have reviewed the details of the note, within reason, and agree with the documentation with the following case summary and management plan written by me. 87-year-old male with history of CHF, diabetes, 3 weeks status post rectal surgery at [facility] now referred for further evaluation of left buttock lesion that has been developing over the last 10 days. Saw his surgeon yesterday and was referred for further evaluation, saw Dr. Moseley in the office and was referred to the wound clinic, now sent to the ED for further evaluation and management. No fevers or chills, no change in behavior or alertness, glucose levels have been at baseline, no bloody discharge or purulent discharge. The lesion has been increasing in size and pain level over the last 10 days, patient otherwise has no other complaints. No abdominal pain, on review of systems does admit to increasing peripheral edema. Afebrile. Well-appearing overall Left buttock lesion with central ulceration of 1 cm, subcutaneous 5 cm area of induration with overall 10 cm area of blanching cellulitis. This a lightest does extend to the gluteal cleft but not obviously related to the surgery area Bibasilar crackles and bilateral lower extremity edema Abdomen is otherwise benign 87-year-old male with left buttock induration/cellulitis, rule out abscess. No evidence of sepsis, abdominal exam is benign. Labs sent IV abx CT pelvis with IV contrast to further evaluate the extent of lesion Wound clinic/general surgery to consult and follow Accepted for inpatient med/surge by Dr. Moseley, who is at the bedside in the emergency department. 03/30/18 18:49 no leukocytosis, Cr above baseline at 2.[address] pelvis will be done without contrast. received abx, will get CT en route to bed assigned. clinically unchanged and stable. <Thierno Conde - Last Filed: 03/30/18 18:51> *DC/Admit/Observation/Transfer - Attestations Scribe Attestion: 03/30/18 17:33 Documentation prepared by Nahun Youngblood, acting as medical social consultant for Thierno Conde MD <Nahun Youngblood - Last Filed: 03/30/18 17:32> <Thierno Conde - Last Filed: 03/30/18 18:51> Diagnosis at time of Disposition: Cellulitis of left buttock - Discharge Dispostion Condition at time of disposition: Fair
[2018-03-30] MEDS ORDERED: PIPERACILLIN/TAZOB 4.5 GM 4.5 GM/100 ML BAG IVPB ONE (17:33)
[2018-03-30] MEDS ORDERED: VANCOMYCIN 1 GRAM (PRE-DOCKED) 1,000 MG/250 ML BAG IVPB ONE (17:33)
[2018-03-30] MEDS ORDERED: FUROSEMIDE 40 MG/4 ML INJECTABLE VIAL ONE (17:40)
[2018-03-30] MEDS: FUROSEMIDE 40 MG/4 ML INJECTABLE VIAL IVPUSH SCH (17:42)
[2018-03-30] MEDS: IPRATROPIUM BR 0.02% 0.5 MG/2.5 ML VIAL.NEB. NEB SCH ×2 (17:42→21:17)
--- NOTE | 2018-03-30 17:43 | HP ---
Admitting History and Physical - Admission Chief Complaint: 87 y.o M was seen in the office today for painful erythematous lesion with necrosis and was sent to [facility]. He was sent from [facility] to ER for further management/ History of Present Illness: Persistent 6.7cm left basilar atelectasis/consolidation. CABG ASHD. DM type on Levemir/Januvia.. CRI/ckd 4. 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 Previous Thoracentesis in the past-neg for malignancy. JUAN-at nights using CPAP. Chronic A.Fib. CHF. Gout. Gouty arthritis. Last month rectal surgery for abscess, fistula at [facility]. History Source: Patient, Medical Record Limitations to Obtaining History: No Limitations - Past Medical History [employer]: Yes: Other (Mild cognitive impairment) Cardiovascular: Yes: Aortic Stenosis, CAD, HTN, Hyperlipdemia Pulmonary: Yes: COPD, Sleep Apnea, Other (Extensive pleural disease. 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 History of Recent Travel: No Home Medications - Allergies Allergies/Adverse Reactions: Allergies Allergy/AdvReac Type Severity Reaction Status Date / Time No Known Allergies Allergy Verified 04/10/17 09:12 - Home Medications Home Medications: Ambulatory Orders Pravastatin Sodium [Pravachol -] 40 mg PO DAILY 10/12/14 Sitagliptin Phosphate [Januvia -] 25 mg PO DAILY@0700 #90 tab 10/14/14 Ipratropium 0.02% Nebulizer [Atrovent 0.02% Nebulizer -] 0.5 mg IH PRN 03/21/17 Spironolactone [Aldactone -] 25 mg PO DAILY #30 tablet 03/31/17 Aspirin 81 mg PO DAILY 04/10/17 Insulin Glargine,Hum.rec.anlog [Lantus] 60 unit SQ DAILY 04/10/17 Febuxostat [Uloric] 40 mg PO DAILY 12/03/18 Furosemide [Lasix -] 40 mg PO HS 02/20/18 Furosemide [Lasix] 80 mg PO DAILY 02/20/18 Levothyroxine [Synthroid -] 0.05 mg PO DAILY 02/20/18 Linaclotide [Linzess] 290 mcg PO DAILY 02/20/18 Linaclotide [Linzess] 290 mcg PO DAILY 02/20/18 Metoprolol Succinate [Toprol Xl] 150 mg PO BID 02/20/18 Family Disease History - Family Disease History Family History: Unremarkable Review of Systems - Review of Systems Constitutional: denies: Chills, Diaphoresis Eyes: denies: Blind Spots, Blurred Vision HENT: denies: Difficult Swallowing, Ear Discharge, Hearing Loss, Mouth Swelling Neck: denies: Lumps, Pain on Movement Cardiovascular: reports: Edema, Shortness of Breath. denies: Chest Pain Respiratory: reports: Cough, Exercise Intolerance, Orthopnea, PND, SOB, SOB on Exertion. denies: Wheezing Gastrointestinal: reports: Constipation. denies: Abdominal Pain, Bloating, Diarrhea, Dysphagia, Nausea, Vomiting Genitourinary: denies: Burning, Discharge, Dysuria Musculoskeletal: reports: No Symptoms Integumentary: reports: Other (left buttock indurated area with erythema and central necrosis) Neurological: denies: No Symptoms Endocrine: denies: Excessive Sweating, Flushing Hematology/Lymphatic: denies: Easily Bruised, Excessive Bleeding, Swollen Glands Psychiatric: denies: Altered Sleep Pattern, Anxiety, Depression, Hallucinations , Panic Physical Examination Constitutional: Yes: Anxious, Moderate Distress Eyes: Yes: Conjunctiva Clear, EOM Intact. No: Cataracts HENT: Yes: Atraumatic, Normocephalic. No: Drooling, Epistaxis Neck: Yes: Supple, Trachea Midline. No: Rigid, Thyromegaly Cardiovascular: Yes: Pulse Irregular, S1, S2 Respiratory: Yes: Regular, Cough, On Nasal O2, Rhonchi, SOB, SOB on Exertion Gastrointestinal: Yes: Normal Bowel Sounds, Soft, Abdomen, Obese. No: Ascites, Distention, Melena, Palpable Mass ...Rectal Exam: Yes: Deferred Renal/: No: Anuria, Bladder Distention, CVA Tenderness - Left Breast(s): Yes: WNL Musculoskeletal: Yes: WNL. No: Back Pain, Joint Stiffness Extremities: No: Calf Tenderness, Cold, Cyanosis Edema: Yes Edema: LLE: 2+, RLE: 3+ Peripheral Pulses WNL: No Peripheral Pulses: Left Doralis Pedis: 0, Right Dorsalis Pedis: 0 Integumentary: Yes: Other (Left buttock erythema, induration) Neurological: Yes: Alert, Oriented, Tremors. No: Aphasia, Asterixis, Ataxia, Babinski positive, Seizure, Tingling ...Motor Strength: WNL Psychiatric: Yes: Alert, Oriented. No: Agitated, Suicidal Ideation Problem List - Problems (1) Cellulitis of left buttock Assessment/Plan: Cellulitis possible abscess in diabetic pt Doubt viral HSV IV Zosyn surgical, ID consult Code(s): L03.317 - CELLULITIS OF BUTTOCK (2) Acute on chronic systolic (congestive) heart failure Assessment/Plan: Previously EF within 35-40 and diastolic dysfunction Start Lasix IV Follow labs Observe for gout attack Code(s): I50.23 - ACUTE ON CHRONIC SYSTOLIC (CONGESTIVE) HEART FAILURE (3) Atrial fibrillation Assessment/Plan: Continue Eliquis Metoprolol Code(s): I48.91 - UNSPECIFIED ATRIAL FIBRILLATION Qualifiers: Atrial fibrillation type: chronic Qualified Code(s): I48.2 - Chronic atrial fibrillation (4) DM type 2 (diabetes mellitus, type 2) Assessment/Plan: Levemir BID BGM with short acting Insulin Code(s): E11.9 - TYPE 2 DIABETES MELLITUS WITHOUT COMPLICATIONS Qualifiers: Chronic kidney disease stage: stage 3 (moderate) (5) Acute respiratory failure with hypercapnia Assessment/Plan: Bipap mask, pulmonary consult Prednisone 10 mg QD Nebs Atrovent Code(s): J96.02 - ACUTE RESPIRATORY FAILURE WITH HYPERCAPNIA
[2018-03-30 17:49] VITALS: BMI 38.5
[2018-03-30 17:51] LABS: BASO % 0.8 % (0-2.0); EOS % 1.9 % (0-4.5); HEMATOCRIT 36.7 % (35.4-49); HEMOGLOBIN 12.5 GM/dL (11.7-16.9); LYMPH % 12.5 % (8-40); MCH 30.5 pg (25.7-33.7); MCHC 33.9 g/dl (32.0-35.9); MEAN PLT VOLUME 8.4 fl (7.5-11.1); MONO % 10.5 % (3.8-10.2); NEUT % 74.3 % (42.8-82.8); PLATELET COUNT 183 K/MM3 (134-434); RBC 4.08 M/mm3 (4.00-5.60); RDW 17.1 % (11.9-15.9); WHITE BLOOD COUNT 9.2 K/mm3 (4.0-10.0)
[2018-03-30 17:55] LABS: URINE APPEARANCE CLEAR; URINE BILIRUBIN NEGATIVE (<2.0 mg/dL); URINE COLOR STRAW; URINE GLUCOSE (UA) NEGATIVE (NEGATIVE); URINE KETONE NEGATIVE (NEGATIVE); URINE LEUK ESTERASE NEGATIVE (NEGATIVE); URINE NITRITE NEGATIVE (NEGATIVE); URINE PROTEIN NEGATIVE (NEGATIVE); URINE UROBILINOGEN NEGATIVE mg/dL (0.2-1.0)
[2018-03-30] MEDS ORDERED: PIPERACILLIN/TAZOB 3.375 GM 3.375 GM in DEXTROSE 5%-WATER - 50 ML IVPB SCH (18:00)
[2018-03-30 18:03] LABS: INR 1.42 (0.83-1.09); PROTHROMBIN TIME (PATIENT) 16.8 SEC (9.7-13.0)
[2018-03-30 18:18] LABS: ALBUMIN 3.6 g/dl (3.4-5.0); ALK PHOS 83 U/L (45-117); ANION GAP 7 MMOL/L (8-16); BILIRUBIN,TOTAL 0.5 mg/dL (0.2-1); BLOOD UREA NITROGEN 70 mg/dL (7-18); CALCIUM 9.1 mg/dL (8.5-10.1); CHLORIDE 96 mmol/L (98-107); CO2 36 mmol/L (21-32); CREATININE 2.4 mg/dL (0.55-1.3); GLUCOSE,RANDOM 128 mg/dL (74-106); POTASSIUM 4.2 mmol/L (3.5-5.1); SGOT/AST 19 U/L (15-37); SGPT/ALT 32 U/L (13-61); SODIUM 139 mmol/L (136-145); TOT PROT 7.1 g/dl (6.4-8.2)
[2018-03-30 20:25] LABS: N-TERMINAL BNP 2935.5 pg/ml (5-450)
[2018-03-30] MEDS ORDERED: INSULIN (NOVOLOG) ASPART 100 UNITS/ML 10ML VIAL ONE (21:24)
[2018-03-30] MEDS: APIXABAN 5 MG TABLET PO SCH (22:28)
[2018-03-30] MEDS: INSULIN SLIDING SCALE (NOVOLOG) 1 VIAL SQ SCH (22:29)
[2018-03-30] MEDS: POLYETHYLENE GLYCOL 3350 119 GM BTL PO SCH (22:29)
[2018-03-30] MEDS: INSULIN (LEVEMIR) 100 UNITS/ML UNITS SQ SCH (22:30)
[2018-03-31] MEDS ORDERED: DEXTROSE 5%-WATER - 50 ML IVPB ONE ×3 (02:33→17:12)
[2018-03-31] MEDS ORDERED: PIPERACILLIN/TAZOBACTAM 3.375 GM VIAL IVPB ONE ×3 (02:33→17:12)
[2018-03-31] MEDS: PIPERACILLIN/TAZOB 3.375 GM 3.375 GM in DEXTROSE 5%-WATER - 50 ML IVPB SCH ×3 (02:53→17:46)
[2018-03-31] MEDS: FUROSEMIDE 40 MG/4 ML INJECTABLE VIAL IVPUSH SCH ×2 (06:46→14:11)
[2018-03-31] MEDS: INSULIN SLIDING SCALE (NOVOLOG) 1 VIAL SQ SCH ×4 (06:47→23:23)
[2018-03-31] MEDS: LEVOTHYROXINE NA 50 MCG TABLET (FP) PO SCH (06:47)
[2018-03-31] MEDS: sitaGLIPtin PHOSPHATE 25 MG TABLET (FP) PO SCH (06:47)
[2018-03-31] MEDS: INSULIN (LEVEMIR) 100 UNITS/ML UNITS SQ SCH (06:47)
[2018-03-31] MEDS: IPRATROPIUM BR 0.02% 0.5 MG/2.5 ML VIAL.NEB. NEB SCH ×4 (07:58→20:10)
[2018-03-31 08:06] LABS: BASO % 0.4 % (0-2.0); EOS % 1.7 % (0-4.5); HEMATOCRIT 35.7 % (35.4-49); HEMOGLOBIN 11.5 GM/dL (11.7-16.9); LYMPH % 14.2 % (8-40); MCHC 32.3 g/dl (32.0-35.9); MEAN CELL VOLUME 89.9 fl (80-96); MEAN PLT VOLUME 7.8 fl (7.5-11.1); MONO % 12.3 % (3.8-10.2); NEUT % 71.4 % (42.8-82.8); PLATELET COUNT 170 K/MM3 (134-434); RBC 3.97 M/mm3 (4.00-5.60); RDW 16.9 % (11.9-15.9); WHITE BLOOD COUNT 9.8 K/mm3 (4.0-10.0)
[2018-03-31 08:41] LABS: ALBUMIN 3.3 g/dl (3.4-5.0); ALK PHOS 67 U/L (45-117); ANION GAP 5 MMOL/L (8-16); BILIRUBIN,TOTAL 0.8 mg/dL (0.2-1); BLOOD UREA NITROGEN 64 mg/dL (7-18); CALCIUM 8.7 mg/dL (8.5-10.1); CHLORIDE 93 mmol/L (98-107); CHOLESTEROL 147 mg/dL (50-200); CO2 39 mmol/L (21-32); CREATININE 2.2 mg/dL (0.55-1.3); GLUCOSE,RANDOM 99 mg/dL (74-106); HDL CHOLESTEROL 47 mg/dL (40-60); MAGNESIUM 2.2 mg/dL (1.8-2.4); PHOSPHOROUS 2.8 mg/dL (2.5-4.9); POTASSIUM 3.8 mmol/L (3.5-5.1); SGOT/AST 19 U/L (15-37); SGPT/ALT 30 U/L (13-61); SODIUM 137 mmol/L (136-145); TOT PROT 6.6 g/dl (6.4-8.2); TRIGLYCERIDES 126 mg/dL (0-150)
--- NOTE | 2018-03-31 09:11 | PN ---
Progress Note, Physician Chief Complaint: C/o pain in the left buttock, SOB. History of Present Illness: Persistent 6.7cm left basilar atelectasis/consolidation. CABG ASHD. DM type on Levemir/Januvia.. CRI/ckd 4. 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 Previous Thoracentesis in the past-neg for malignancy. JUAN-at nights using CPAP. Chronic A.Fib. CHF. Gout. Gouty arthritis. Last month rectal surgery for abscess, fistula at [facility]. HSV skin. previously. - Current Medication List Current Medications: Active Medications Acetaminophen (Tylenol -) 500 mg PO Q6H PRN PRN Reason: PAIN LEVEL 1 - 3 Apixaban (Eliquis -) 5 mg PO BID [facility] Last Admin: 03/30/18 22:28 Dose: 5 mg Atorvastatin Calcium (Lipitor -) 10 mg PO HS [facility] Bisacodyl (Dulcolax -) 10 mg PO DAILY [facility] Febuxostat (Uloric -) 40 mg PO DAILY [facility] Furosemide (Lasix Injection -) 80 mg IVPUSH BIDLASIX [facility] Last Admin: 03/31/18 06:46 Dose: 80 mg Piperacillin Sod/Tazobactam (Sod 3.375 gm/ Dextrose) 50 mls @ 100 mls/hr IVPB Q8H-IV [facility]; Protocol Piperacillin Sod/Tazobactam (Sod 3.375 gm/ Dextrose) 50 mls @ 100 mls/hr IVPB Q8H-IV [facility] Stop: 03/31/18 10:29 Last Admin: 03/31/18 02:53 Dose: 100 mls/hr Insulin Aspart (Novolog Vial Sliding Scale -) 1 vial SQ ACHS [facility]; Protocol Last Admin: 03/31/18 06:47 Dose: Not Given Insulin Detemir (Levemir Vial) 20 units SQ BID@0700,2200 [facility] Last Admin: 03/31/18 06:47 Dose: 20 units Ipratropium [place] (Atrovent 0.02% Nebulizer -) 1 amp NEB RQID [facility] Last Admin: 03/31/18 07:58 Dose: 1 amp Levothyroxine Sodium (Synthroid -) 50 mcg PO DAILY@0700 [facility] Last Admin: 03/31/18 06:47 Dose: 50 mcg Metoprolol Succinate (Toprol Xl -) 100 mg PO BID [facility] Last Admin: 03/30/18 22:29 Dose: 100 mg Polyethylene Glycol (Miralax (For Daily Use) -) 17 gm PO BID [facility] Last Admin: 03/30/18 22:29 Dose: Not Given Prednisone (Deltasone -) 10 mg PO DAILY [facility] Sitagliptin Phosphate (Januvia -) 25 mg PO DAILY@0700 [facility] Last Admin: 03/31/18 06:47 Dose: 25 mg Spironolactone (Aldactone -) 25 mg PO DAILY [facility] - Objective Vital Signs: Vital Signs Temperature 97.5 F L 03/31/18 05:50 Pulse Rate 81 03/31/18 05:50 Respiratory Rate 20 03/31/18 05:50 Blood Pressure 127/71 03/31/18 05:50 O2 Sat by Pulse Oximetry (%) 93 L 03/31/18 07:58 Constitutional: Yes: Anxious, Mild Distress Eyes: Yes: Conjunctiva Clear, EOM Intact HENT: Yes: Atraumatic, Normocephalic. No: Drooling Neck: Yes: Supple, Trachea Midline, Decreased ROM Respiratory: Yes: Cough, Diminished, On Nasal O2, Rales, Rhonchi, SOB, SOB on Exertion Gastrointestinal: Yes: Normal Bowel Sounds, Soft, Abdomen, Obese. No: Ascites ...Rectal Exam: Yes: Deferred Genitourinary: No: Anuria, Bladder Distention Breast(s): Yes: WNL Musculoskeletal: Yes: WNL Extremities: No: Calf Tenderness, Cold, Cyanosis Edema: Yes Edema: LLE: 1+, RLE: 2+ Peripheral Pulses WNL: No Integumentary: Yes: Other (Left buttock induration, erythema, tender) ...Motor Strength: WNL Psychiatric: Yes: WNL, Alert, Oriented. No: Agitated Labs: CBC, BMP 03/31/18 07:45 03/31/18 07:45 INR, PTT INR 1.42 (0.83-1.09) H 03/30/18 17:10 - ....Imaging Cat Scan: Report Reviewed EKG: Image Reviewed (A.Fib, IVCD, VR 85 BPM) Problem List - Problems (1) Cellulitis of left buttock Assessment/Plan: Cellulitis possible abscess in diabetic pt IV Zosyn surgical, ID consult Code(s): L03.317 - CELLULITIS OF BUTTOCK (2) Acute on chronic systolic (congestive) heart failure Assessment/Plan: Previously EF within 35-40 and diastolic dysfunction Start Lasix IV Follow labs Observe for gout attack Code(s): I50.23 - ACUTE ON CHRONIC SYSTOLIC (CONGESTIVE) HEART FAILURE (3) Atrial fibrillation Assessment/Plan: Continue Eliquis Metoprolol Code(s): I48.91 - UNSPECIFIED ATRIAL FIBRILLATION Qualifiers: Atrial fibrillation type: chronic Qualified Code(s): I48.2 - Chronic atrial fibrillation (4) DM type 2 (diabetes mellitus, type 2) Assessment/Plan: Levemir BID BGM with short acting Insulin Code(s): E11.9 - TYPE 2 DIABETES MELLITUS WITHOUT COMPLICATIONS Qualifiers: Chronic kidney disease stage: stage 3 (moderate) (5) Acute respiratory failure with hypercapnia Assessment/Plan: Bipap mask, pulmonary consult Prednisone 10 mg QD Nebs Atrovent Code(s): J96.02 - ACUTE RESPIRATORY FAILURE WITH HYPERCAPNIA
--- NOTE | 2018-03-31 09:27 | CON.CARD ---
Cardiology Consult (text) - Consultation Consultation Note: Consult Dictated IMP: CAD s/p CABG, ischemic CM with EF 35-40% DM CKD Extensive pleural dz from occupational exposures JUAN Mild PHTN, chronic Recent perianal fistula surgical repair at [facility] now presents with gluteal infection and acute on chronic systolic CHF REC: 1. Tele 2. IV Lasix with daily weights, daily BMP to follow renal fx; supplimental O2 3. IV abx as per PMD Will follow. Thank you.
[2018-03-31] MEDS ORDERED: PT OWN MED DRAWER 7, Y5N ONE ×3 (09:37→23:20)
[2018-03-31] MEDS: APIXABAN 5 MG TABLET PO SCH ×2 (09:41→23:24)
[2018-03-31] MEDS: predniSONE 10 MG TABLET (UD) PO SCH (09:41)
[2018-03-31] MEDS: BISACODYL 5 MG TABLET.DR (FP) PO SCH (09:41)
[2018-03-31] MEDS: SPIRONOLACTONE 25 MG TABLET (FP) PO SCH (09:41)
[2018-03-31] MEDS: POLYETHYLENE GLYCOL 3350 119 GM BTL PO SCH ×3 (09:45→23:26)
--- NOTE | 2018-03-31 09:58 | CONS ---
DATE OF CONSULTATION: 03/31/2018 The consultation is requested by Dr. Moseley for management of volume overload. The patient is an 87-year-old gentleman with complicated past medical history including coronary artery disease status post CABG, ischemic cardiomyopathy with ejection fraction of 35% to 40%, diabetes, chronic renal insufficiency, extensive pleural disease with chronic hypoxia from occupational exposures, obstructive sleep apnea, chronic systolic CHF, mild aortic stenosis, and chronic pulmonary hypertension, who has had a recent perianal fistula repair at [facility] several weeks ago. He now presented to the emergency department with a wound on his left buttocks for the last 10 days which has been getting more painful and enlarging. He has also been more short of breath and more edematous. He was admitted for IV antibiotics, workup of his infection, and management of his volume overload. He denies chest pain or palpitations but has been more short of breath when laying flat, and his legs have been more swollen. He denies syncope. PAST MEDICAL HISTORY: As above, and also includes atrial fibrillation. CURRENT MEDICATIONS: Include Tylenol 500 mg p.o. q.6 p.r.n., Eliquis 5 mg p.o. b.i.d. for his atrial fibrillation, Lipitor 10 mg at bedtime, Lasix 80 mg IV b.i.d., Levemir and sliding scale insulin, Synthroid 50 mcg p.o. daily for his chronic hypothyroidism, Toprol-XL 100 mg p.o. b.i.d., IV Zosyn, prednisone 10 mg daily, Januvia 25 mg p.o. daily, Aldactone 25 mg p.o. daily, and valacyclovir 500 b.i.d. ALLERGIES: He has no known drug allergies. FAMILY HISTORY: Noncontributory. SOCIAL HISTORY: He is a former smoker, lives at home with his . PHYSICAL EXAMINATION: Vital Signs: Afebrile, temperature 97.5, pulse 81, blood pressure 127/71, O2 saturation is 93% on 3 L. HEENT: He is anicteric. Neck: There is no JVD or bruits. Heart: S1, S2, irregular, in atrial fibrillation. Chest: Rales at the bases, scattered rhonchi. Abdomen: Obese, soft, nontender. Extremities: Have 2+ pitting edema. His 12-lead ECG showed atrial fibrillation at 85 beats per minute with incomplete right bundle branch block and nonspecific ST changes. White count 9.8, hemoglobin 11.5, platelets 170. INR 1.4. Sodium 137, potassium 3.8, creatinine 2.2, chronically elevated. LFTs are normal. BNP was 2935. A pelvic CT was performed showing no discrete abscess but subcutaneous edema in the left buttock region. IMPRESSION: 1. Coronary artery disease status post coronary artery bypass graft, ischemic cardiomyopathy with ejection fraction 35% to 40%. 2. Diabetes. 3. Chronic kidney disease. 4. 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 5. Obstructive sleep apnea. 6. Mild aortic stenosis. 7. Pulmonary hypertension, chronic. 8. Perianal fistula status post surgical repair, now admitted with infection and [id number] congestive heart failure. RECOMMENDATIONS: 1. Daily weights. 2. Telemetry to rule out occult rapid atrial fibrillation as a precipitant. 3. IV Lasix, daily BMP to follow renal function, supplemental O2. 4. IV antibiotics as per PMD. Will follow. Thank you for the consultation. PRITESH HANNAH M.D. [id number]
[2018-03-31] MEDS ORDERED: INSULIN (NOVOLOG) ASPART 100 UNITS/ML 10ML VIAL ONE (11:05)
[2018-03-31] MEDS: FEBUXOSTAT 40 MG TAB PO SCH (11:09)
[2018-03-31] MEDS: valACYclovir HCL 500 MG TABLET (FP) PO SCH ×2 (11:09→23:24)
--- NOTE | 2018-03-31 11:09 | PN ---
Progress Note (short form) - Note Progress Note: ID consult dictated imp/reccd left buttock abscess pain for two weeks no fevers recent rectal surgery 03/03 at [facility] ckd afib no recent antiibotics per patient suggest surgery evaluation continue zosyn vancomycin by levels Problem List - Problems (1) Abscess of left buttock Code(s): L02.31 - CUTANEOUS ABSCESS OF BUTTOCK (2) Acute kidney injury superimposed on CKD Code(s): N17.9 - ACUTE KIDNEY FAILURE, UNSPECIFIED; N18.9 - CHRONIC KIDNEY DISEASE, UNSPECIFIED (3) Atrial fibrillation Code(s): I48.91 - UNSPECIFIED ATRIAL FIBRILLATION Qualifiers: Atrial fibrillation type: chronic Qualified Code(s): I48.2 - Chronic atrial fibrillation
--- NOTE | 2018-03-31 12:01 | EKG ---
Test Reason : Blood Pressure : / mmHG Vent. Rate : 085 BPM Atrial Rate : 277 BPM P-R Int : 000 ms QRS Dur : 112 ms QT Int : 394 ms P-R-T Axes : 000 -26 129 degrees QTc Int : 468 ms ATRIAL FIBRILLATION INCOMPLETE LEFT BUNDLE BRANCH BLOCK NONSPECIFIC T WAVE ABNORMALITY PROLONGED QT ABNORMAL ECG WHEN COMPARED WITH ECG OF 20-FEB-2018 13:17, INCOMPLETE LEFT BUNDLE BRANCH BLOCK IS NOW PRESENT CRITERIA FOR ANTERIOR INFARCT ARE NO LONGER PRESENT Confirmed by ZACH LEYVA MD ([id number]) on 03/31/2018 12:01:07 PM Referred By: Confirmed By:ZACH LEYVA MD
--- NOTE | 2018-03-31 15:21 | ECHO ---
Name: LONI VICKERS Exam:Adult Echocardiogram Study Date: 03/31/2018 02:26 PM Age: 87 yrs Reason For Study: CHF Height: 67 in Weight: 246 lb BSA: 2.2 m2 MMode/2D Measurements & Calculations IVSd: 1.0 cm EDV(Teich): 89.7 ml LVIDd: 4.4 cm ESV(Teich): 40.9 ml LVIDs: 3.2 cm LVPWd: 0.91 cm Doppler Measurements & Calculations MV E max salo: 108.1 cm/sec TR max salo: 287.8 cm/sec MV A max salo: 33.1 cm/sec TR max P.2 mmHg MV E/A: 3.3 MV dec time: 0.18 sec PI end-d salo: 103.2 cm/sec Med Peak E' Salo: 8.5 cm/sec Med E/e': 12.7 Lat Peak E' Salo: 8.7 cm/sec Lat E/e': 12.5 Procedure The study was technically difficult with many images being suboptimal in quality. Left Ventricle Left ventricular systolic function is mild to moderately reduced. Ejection Fraction = 40-45%. Regiona l wall motion abnormalities cannot be excluded due to limited visualization. Right Ventricle The right ventricle is not well visualized. Atria Normal left and right atrial size and function. Mitral Valve There is moderate mitral annular calcification. There is no mitral valve stenosis. There is trace ander ral regurgitation. Tricuspid Valve The tricuspid valve is not well visualized, but is grossly normal. There is mild to moderate tricuspi d regurgitation. Right ventricular systolic pressure is elevated at 40-50mmHg. Aortic Valve There is mild to moderate aortic sclerosis.;. Pulmonic Valve The pulmonic valve is not well seen, but is grossly normal. There is no pulmonic valvular stenosis. M ild pulmonic valvular regurgitation. Great Vessels The aortic root is not well visualized. Pericardium/Pleura There is no pericardial effusion. Interpretation Summary The study was technically difficult with many images being suboptimal in quality. Regional wall motion abnormalities cannot be excluded due to limited visualization. Left ventricular systolic function is mild to moderately reduced. Ejection Fraction = 40-45%. The right ventricle is not well visualized. There is moderate mitral annular calcification. There is mild to moderate tricuspid regurgitation. Right ventricular systolic pressure is elevated at 40-50mmHg. There is mild to moderate aortic sclerosis.; There is no pericardial effusion. MD Adams *Lal[place] 03/31/2018 03:20 PM
--- NOTE | 2018-03-31 15:58 | PN ---
Progress Note (short form) - Note Progress Note: PULMONARY CONSULTATION DICTATED 03/31/18 IMP ACUTE ON CHRONIC HYPOXEMIC/HYPERCAPNEIC RESPIRATORY FAILURE ACUTE ON CHRONIC CHF COPD O2 DEPENDENT PULMONARY HTN DM JUAN AFIB LEFT BUTTOCK ABSCESS HTN OBESITY ACUTE ON CHRONIC KIDNEY DISEASE PLAN IV LASIX O2 ABX PER ID INHALED BRONCHODILATORS DAILY WT STRICT I+OS WOUND CARE PER SURGERY CHEST CT ABG AC MONITOR LYTES,RENAL FUNCTION DR HERNANDEZ Problem List - Problems (1) Abscess of left buttock Code(s): L02.31 - CUTANEOUS ABSCESS OF BUTTOCK (2) Acute kidney injury superimposed on CKD Code(s): N17.9 - ACUTE KIDNEY FAILURE, UNSPECIFIED; N18.9 - CHRONIC KIDNEY DISEASE, UNSPECIFIED (3) ASHD (arteriosclerotic heart disease) Code(s): I25.10 - ATHSCL HEART DISEASE OF [place] CORONARY ARTERY W/O ANG PCTRS (4) Acute on chronic systolic (congestive) heart failure Code(s): I50.23 - ACUTE ON CHRONIC SYSTOLIC (CONGESTIVE) HEART FAILURE (5) Atrial fibrillation Code(s): I48.91 - UNSPECIFIED ATRIAL FIBRILLATION Qualifiers: Atrial fibrillation type: chronic Qualified Code(s): I48.2 - Chronic atrial fibrillation (6) CAD (coronary artery disease) Code(s): I25.10 - ATHSCL HEART DISEASE OF [place] CORONARY ARTERY W/O ANG PCTRS Qualifiers: Coronary Disease-Associated Artery/Lesion type: bypass graft, autologous artery Associated angina: without angina Qualified Code(s): I25.810 - Atherosclerosis of coronary artery bypass graft(s) without angina pectoris (7) DM type 2 (diabetes mellitus, type 2) Code(s): E11.9 - TYPE 2 DIABETES MELLITUS WITHOUT COMPLICATIONS Qualifiers: Chronic kidney disease stage: stage 3 (moderate) (8) HTN (hypertension) Code(s): I10 - ESSENTIAL (PRIMARY) HYPERTENSION (9) Pulmonary hypertension Code(s): I27.20 - PULMONARY HYPERTENSION, UNSPECIFIED (10) S/P CABG (coronary artery bypass graft) Code(s): Z95.1 - PRESENCE OF AORTOCORONARY BYPASS GRAFT (11) Sleep apnea Code(s): G47.30 - SLEEP APNEA, UNSPECIFIED (12) Acute on chronic respiratory failure with hypoxia and hypercapnia Code(s): J96.21 - ACUTE AND CHRONIC RESPIRATORY FAILURE WITH HYPOXIA; J96.22 - ACUTE AND CHRONIC RESPIRATORY FAILURE WITH HYPERCAPNIA (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
[2018-03-31] MEDS ORDERED: LIDOCAINE HCL 1%, 10 MG/ML (50 mL VIAL) SQ ONE (15:59)
[2018-03-31] MEDS ORDERED: VANCOMYCIN 1 GRAM (PRE-DOCKED) 1,000 MG/250 ML BAG IVPB ONE (16:00)
--- NOTE | 2018-03-31 16:03 | CONSULT ---
<Ibrahima Juarez - Last Filed: 03/31/18 16:09> - Consultation REQUESTING PROVIDER: CONSULT REQUEST: We have been asked to surgically evaluate this patient for ( left buttock abscess). 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 Per pts son, was found to have redness on his left buttock at his followup appointment on Tuesday. It was recommended that pt go [facility] which pts son reports bringing him to yesterday. Pt was seen by Dr Moseley who sent him to the ED for admission. Pt denies fever/chills at home , denies cp/sob, n/v/d. PMHx: as above PSHx: CABG 20 years ago, perianal fistula surgery ([facility], 02/2018) Home Medications Medication Instructions Recorded Pravastatin Sodium [Pravachol -] 40 mg PO DAILY 10/12/14 Sitagliptin Phosphate [Januvia -] 25 mg PO DAILY@0700 #90 tab 10/14/14 Ipratropium 0.02% Nebulizer 0.5 mg IH PRN 03/21/17 [Atrovent 0.02% Nebulizer -] Spironolactone [Aldactone -] 25 mg PO DAILY #30 tablet 03/31/17 Aspirin 81 mg PO DAILY 04/10/17 Insulin Glargine,Hum.rec.anlog 60 unit SQ DAILY 04/10/17 [Lantus] Febuxostat [Uloric] 40 mg PO DAILY 02/20/18 Furosemide [Lasix -] 40 mg PO HS 02/20/18 Levothyroxine [Synthroid -] 0.05 mg PO DAILY 02/20/18 Linaclotide [Linzess] 290 mcg PO DAILY 02/20/18 Metoprolol Succinate [Toprol Xl] 50 mg PO BID 02/20/18 Apixaban [Eliquis -] 2.5 mg PO BID 03/30/18 Allergies Allergy/AdvReac Type Severity Reaction Status Date / Time No Known Allergies Allergy Verified 03/30/18 17:48 REVIEW OF SYSTEMS: CONSTITUTIONAL: Absent: fever, chills CARDIOVASCULAR: Absent: chest pain, syncope RESPIRATORY: Absent: cough, shortness of breath GASTROINTESTINAL: Absent: abdominal pain PHYSICAL EXAM: GENERAL: Awake, alert, and fully oriented, in no acute distress. On 5L NC, breathing unlabored HEAD: Normal with no signs of trauma. Buttock: L buttock with approximately 6x6cm area of erythema, + induration, 1.5cm circular discolored fluctuate ?blister at center of induration. ++TTP. Vital Signs Temperature 97.4 F L 03/31/18 09:30 Pulse Rate 75 03/31/18 09:30 Respiratory Rate 20 03/31/18 09:30 Blood Pressure 137/58 L 03/31/18 09:30 O2 Sat by Pulse Oximetry (%) 97 03/31/18 09:44 Lab Results WBC 9.8 K/mm3 (4.0-10.0) 03/31/18 07:45 RBC 3.97 M/mm3 (4.00-5.60) L 03/31/18 07:45 Hgb 11.5 GM/dL (11.7-16.9) L 03/31/18 07:45 Hct 35.7 % (35.4-49) 03/31/18 07:45 MCV 89.9 fl (80-96) 03/31/18 07:45 MCHC 32.3 g/dl (32.0-35.9) 03/31/18 07:45 RDW 16.9 % (11.9-15.9) H 03/31/18 07:45 Plt Count 170 K/MM3 (134-434) 03/31/18 07:45 Sodium 137 mmol/L (136-145) 03/31/18 07:45 Potassium 3.8 mmol/L (3.5-5.1) 03/31/18 07:45 Chloride 93 mmol/L (98-107) L 03/31/18 07:45 Carbon Dioxide 39 mmol/L (21-32) H 03/31/18 07:45 Anion Gap 5 MMOL/L (8-16) L 03/31/18 07:45 BUN 64 mg/dL (7-18) H 03/31/18 07:45 Creatinine 2.2 mg/dL (0.55-1.3) H 03/31/18 07:45 Random Glucose 99 mg/dL (74-106) 03/31/18 07:45 Calcium 8.7 mg/dL (8.5-10.1) 03/31/18 07:45 Blood Type O POSITIVE 03/30/18 17:10 Antibody Screen Negative 03/30/18 17:10 INR 1.42 (0.83-1.09) H 03/30/18 17:[address] (03/30/18); no discrete buttock abscess is seen. Subcutaneous edema is consistent with known cellulitis. 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 Pt with L buttock abscess Afebrile, no leukocytosis. -Plan for bedside I&D and packing with Iodoform Discussed with pt and son who agree with plan pt seen and examined with attending, Dr Donis <Brittni Smith - Last Filed: 03/31/18 17:00> - Consultation Rectal exam revealed normal tone with no evidence of fistula tract. no d/c noted at rectum/ anus Culture taken at time of I&D.
[2018-03-31] MEDS ORDERED: oxyCODONE HCL 5 MG TABLET PO PRN (16:55)
--- NOTE | 2018-03-31 16:58 | PROC ---
Incision and Drainage Indication/Location: left buttock Risks and Benefits Explained: Yes Consent on Chart: Yes (signed by patient's HCP-son) Betadine cleansed: Yes (chloroprep) Anesthesia: 1% Lidocaine (15cc injected around abscess) Drainage: some fat necrosis, minimal puss and blood Irrigated with Normal Saline: Yes Iodinated Packin in - Remarks Remarks: patient tolerated procedure well
[2018-03-31 18:40] LABS: ARTERIAL BLD GAS O2 SATURATION 93.4 % (90-98.9); ARTERIAL BLOOD GAS BASE EXCESS 8.5 meq/l (-2-2); ARTERIAL BLOOD GAS PCO2 55.3 mmHg (35-45); ARTERIAL BLOOD GAS PO2 71.2 mmHg (68-100); ARTERIAL BLOOD GAS pH 7.41 (7.35-7.45)
[2018-03-31 18:44] LABS: ALLENS TEST POSITIVE
--- NOTE | 2018-03-31 18:53 | CONS ---
DATE OF CONSULTATION: 03/31/2018 CONSULTATION REQUESTED BY: Sunil Moseley MD HISTORY OF PRESENT ILLNESS: The patient is an 87-year-old man with a past medical history of COPD. He is on home oxygen. He first presented to the emergency room yesterday with a wound on his left buttock. He reports he has had pain there for the last two weeks. He reports that he had some sort of hemorrhoid surgery done on March 03 at [facility]. He was apparently seen in followup the day before yesterday, March 29, at [facility] and was told to seek followup for this buttock wound. The patient has had no fevers, chills, nausea, vomiting, diarrhea or dysuria. He has had no chest pain or shortness of breath. PAST MEDICAL HISTORY: Notable for a history of atherosclerotic heart disease, type 2 diabetes, CKD, COPD. He uses a CPAP at night. He tells me he uses oxygen at baseline. He has a history of chronic atrial fibrillation, heart failure and gout. PAST SURGICAL HISTORY: Notable for a CABG in the past. Last month, he apparently had rectal surgery for an abscess and fistula at [facility]. SOCIAL HISTORY: He lives at home with his family. He is very hard of hearing. He is a former smoker. He quit 30 years go. No history of substance abuse. 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 No history of recent travel. REVIEW OF SYSTEMS: Notable only for buttock pain which he has had for two weeks. He has had no other symptoms. ALLERGIES: No known drug allergies. HOME MEDICATIONS: Pravachol, Januvia, spironolactone, aspirin, insulin, Uloric, Lasix, Synthroid, Linzess and metoprolol. He denies any recent antibiotic use. PHYSICAL EXAMINATION: General: He is awake and alert. He is quite comfortable. He was in no distress when I saw him. He is very hard of hearing. Vital Signs: Temperature is 97.4, pulse is 75, blood pressure 137/58, respiratory rate 20. HEENT: Normocephalic. His eyes are anicteric. Neck: Supple. Lungs: Clear to auscultation. Heart: Regular rate and rhythm. Abdomen: Soft, nontender. Extremities: Without edema. Skin: On his left buttock, he has an area of induration with a necrotic center that is very painful to touch. LABORATORY DATA: Notable for a white count of 9.8, hemoglobin of 11.5, platelets are 170. INR is 1.4. BUN and creatinine are 64 and 2.2. Hemoglobin A1c is 7.8. LFTs are normal. Urinalysis is negative. Blood cultures are pending. He had a pelvic CT done that was notable for no discrete abscess being seen. He had a left inguinal hernia noted. Bilateral inguinal surgical clips were noted. There was some subcutaneous edema seen along the left buttock. In summary, this is an 87-year-old man who clinically has a left buttock abscess. I do not think this is zoster. He has had pain for two weeks but no fevers. He had a recent rectal surgery which he thinks was hemorrhoid. He has CKD, atrial fibrillation, COPD on oxygen. No recent antibiotics per the patient. I would suggest that we treat him with Zosyn and vancomycin by level since I do think we should cover him for MRSA. I suggest a surgery evaluation with further recommendations to follow based on his clinical course. KIMANI ADAM M.D. [id number]
[2018-03-31] MEDS: ATORVASTATIN CA 10 MG TABLET (FP) PO SCH (23:24)
[2018-04-01] MEDS: INSULIN (LEVEMIR) 100 UNITS/ML UNITS SQ SCH ×3 (03:12→23:24)
[2018-04-01] MEDS: PIPERACILLIN/TAZOB 3.375 GM 3.375 GM in DEXTROSE 5%-WATER - 50 ML IVPB SCH ×3 (03:30→17:10)
[2018-04-01] MEDS: FUROSEMIDE 40 MG/4 ML INJECTABLE VIAL IVPUSH SCH ×2 (06:09→14:48)
[2018-04-01] MEDS: sitaGLIPtin PHOSPHATE 25 MG TABLET (FP) PO SCH (07:00)
[2018-04-01] MEDS: INSULIN SLIDING SCALE (NOVOLOG) 1 VIAL SQ SCH ×4 (07:01→23:23)
[2018-04-01] MEDS: LEVOTHYROXINE NA 50 MCG TABLET (FP) PO SCH (07:01)
[2018-04-01 07:52] LABS: BASO % 0.7 % (0-2.0); EOS % 2.5 % (0-4.5); HEMATOCRIT 36.5 % (35.4-49); HEMOGLOBIN 11.7 GM/dL (11.7-16.9); LYMPH % 17.7 % (8-40); MEAN CELL VOLUME 90.7 fl (80-96); MEAN PLT VOLUME 8.1 fl (7.5-11.1); MONO % 12.9 % (3.8-10.2); NEUT % 66.2 % (42.8-82.8); PLATELET COUNT 180 K/MM3 (134-434); RBC 4.02 M/mm3 (4.00-5.60); WHITE BLOOD COUNT 8.3 K/mm3 (4.0-10.0)
[2018-04-01] MEDS: IPRATROPIUM BR 0.02% 0.5 MG/2.5 ML VIAL.NEB. NEB SCH ×4 (07:59→21:24)
[2018-04-01 09:04] LABS: ALBUMIN 3.2 g/dl (3.4-5.0); ALK PHOS 60 U/L (45-117); ANION GAP 10 MMOL/L (8-16); BILIRUBIN,TOTAL 0.6 mg/dL (0.2-1); BLOOD UREA NITROGEN 65 mg/dL (7-18); CALCIUM 8.8 mg/dL (8.5-10.1); CHLORIDE 92 mmol/L (98-107); CO2 33 mmol/L (21-32); CREATININE 2.3 mg/dL (0.55-1.3); GLUCOSE,RANDOM 94 mg/dL (74-106); POTASSIUM 3.9 mmol/L (3.5-5.1); SGOT/AST 18 U/L (15-37); SGPT/ALT 25 U/L (13-61); SODIUM 135 mmol/L (136-145); TOT PROT 6.6 g/dl (6.4-8.2)
--- NOTE | 2018-04-01 09:07 | PN ---
Progress Note, Physician - Current Medication List Current Medications: Active Medications Acetaminophen (Tylenol -) 500 mg PO Q6H PRN PRN Reason: PAIN LEVEL 1 - 3 Apixaban (Eliquis -) 5 mg PO BID [facility] Last Admin: 03/31/18 23:24 Dose: 5 mg Atorvastatin Calcium (Lipitor -) 10 mg PO HS [facility] Last Admin: 03/31/18 23:24 Dose: 10 mg Bisacodyl (Dulcolax -) 10 mg PO DAILY [facility] Last Admin: 03/31/18 09:41 Dose: 10 mg Febuxostat (Uloric -) 40 mg PO DAILY [facility] Last Admin: 03/31/18 11:09 Dose: 40 mg Furosemide (Lasix Injection -) 80 mg IVPUSH BIDLASIX [facility] Last Admin: 04/01/18 06:09 Dose: 80 mg Piperacillin Sod/Tazobactam (Sod 3.375 gm/ Dextrose) 50 mls @ 100 mls/hr IVPB Q8H-IV [facility]; Protocol Last Admin: 04/01/18 03:30 Dose: 100 mls/hr Insulin Aspart (Novolog Vial Sliding Scale -) 1 vial SQ ACHS [facility]; Protocol Last Admin: 04/01/18 07:01 Dose: Not Given Insulin Detemir (Levemir Vial) 20 units SQ BID@0700,2200 [facility] Last Admin: 04/01/18 07:01 Dose: Not Given Ipratropium Soquel (Atrovent 0.02% Nebulizer -) 1 amp NEB RQID [facility] Last Admin: 04/01/18 07:59 Dose: 1 amp Levothyroxine Sodium (Synthroid -) 50 mcg PO DAILY@0700 [facility] Last Admin: 04/01/18 07:01 Dose: 50 mcg Metoprolol Succinate (Toprol Xl -) 100 mg PO BID [facility] Last Admin: 03/31/18 23:24 Dose: 100 mg Oxycodone HCl (Roxicodone -) 5 mg PO Q6H PRN PRN Reason: PAIN LEVEL 1-5 Last Admin: 03/31/18 17:15 Dose: 5 mg Polyethylene Glycol (Miralax (For Daily Use) -) 17 gm PO BID [facility] Last Admin: 03/31/18 23:26 Dose: 17 gm Prednisone (Deltasone -) 10 mg PO DAILY [facility] Last Admin: 03/31/18 09:41 Dose: 10 mg Sitagliptin Phosphate (Januvia -) 25 mg PO DAILY@0700 [facility] Last Admin: 04/01/18 07:00 Dose: Not Given Spironolactone (Aldactone -) 25 mg PO DAILY [facility] Last Admin: 03/31/18 09:41 Dose: 25 mg Valacyclovir HCl (Valtrex -) 500 mg PO BID [facility] Last Admin: 03/31/18 23:24 Dose: 500 mg - Objective Vital Signs: Vital Signs Temperature 98 F 04/01/18 06:00 Pulse Rate 78 04/01/18 06:00 Respiratory Rate 20 04/01/18 06:00 Blood Pressure 117/60 04/01/18 06:00 O2 Sat by Pulse Oximetry (%) 98 03/31/18 20:30 Eyes: Yes: WNL, Conjunctiva Clear, EOM Intact HENT: Yes: WNL, Atraumatic, Normocephalic Neck: Yes: WNL, Supple, Trachea Midline Cardiovascular: Yes: WNL, Regular Rate and Rhythm, Murmur, S1, S2 Respiratory: Yes: WNL, Regular, CTA Bilaterally Gastrointestinal: Yes: WNL, Normal Bowel Sounds Genitourinary: Yes: WNL Musculoskeletal: Yes: WNL Extremities: Yes: WNL Edema: No Integumentary: Yes: WNL Neurological: Yes: WNL, Alert, Oriented ...Motor Strength: WNL Psychiatric: Yes: WNL Labs: CBC, BMP 04/01/18 06:30 04/01/18 06:30 INR, PTT INR 1.42 (0.83-1.09) H 03/30/18 17:10 Assessment/Plan IMP: CAD s/p CABG, 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 Tele 2. IV Lasix with daily weights, daily BMP to follow renal fx; supplimental O2 3. IV abx as per PMD coverage for dr. Starkey
[2018-04-01] MEDS ORDERED: PIPERACILLIN/TAZOBACTAM 3.375 GM VIAL IVPB ONE ×2 (09:49→16:58)
[2018-04-01] MEDS ORDERED: DEXTROSE 5%-WATER - 50 ML IVPB ONE ×2 (09:49→16:58)
--- NOTE | 2018-04-01 10:02 | PN ---
Progress Note, Physician History of Present Illness: PULMONARY ALERT,C/O SOB,-CP. + LEFT BUTTOCK PAIN - Current Medication List Current Medications: Active Medications Acetaminophen (Tylenol -) 500 mg PO Q6H PRN PRN Reason: PAIN LEVEL 1 - 3 Apixaban (Eliquis -) 5 mg PO BID [facility] Last Admin: 03/31/18 23:24 Dose: 5 mg Atorvastatin Calcium (Lipitor -) 10 mg PO HS [facility] Last Admin: 03/31/18 23:24 Dose: 10 mg Bisacodyl (Dulcolax -) 10 mg PO DAILY [facility] Last Admin: 03/31/18 09:41 Dose: 10 mg Febuxostat (Uloric -) 40 mg PO DAILY [facility] Last Admin: 03/31/18 11:09 Dose: 40 mg Furosemide (Lasix Injection -) 80 mg IVPUSH BIDLASIX [facility] Last Admin: 04/01/18 06:09 Dose: 80 mg Piperacillin Sod/Tazobactam (Sod 3.375 gm/ Dextrose) 50 mls @ 100 mls/hr IVPB Q8H-IV [facility]; Protocol Last Admin: 04/01/18 03:30 Dose: 100 mls/hr Insulin Aspart (Novolog Vial Sliding Scale -) 1 vial SQ ACHS [facility]; Protocol Last Admin: 04/01/18 07:01 Dose: Not Given Insulin Detemir (Levemir Vial) 20 units SQ BID@0700,2200 [facility] Last Admin: 04/01/18 07:01 Dose: Not Given Ipratropium Sigurd (Atrovent 0.02% Nebulizer -) 1 amp NEB RQID [facility] Last Admin: 04/01/18 07:59 Dose: 1 amp Levothyroxine Sodium (Synthroid -) 50 mcg PO DAILY@0700 [facility] Last Admin: 04/01/18 07:01 Dose: 50 mcg Metoprolol Succinate (Toprol Xl -) 100 mg PO BID [facility] Last Admin: 03/31/18 23:24 Dose: 100 mg Oxycodone HCl (Roxicodone -) 5 mg PO Q6H PRN PRN Reason: PAIN LEVEL 1-5 Last Admin: 03/31/18 17:15 Dose: 5 mg Polyethylene Glycol (Miralax (For Daily Use) -) 17 gm PO BID [facility] Last Admin: 03/31/18 23:26 Dose: 17 gm Prednisone (Deltasone -) 10 mg PO DAILY [facility] Last Admin: 03/31/18 09:41 Dose: 10 mg Sitagliptin Phosphate (Januvia -) 25 mg PO DAILY@0700 [facility] Last Admin: 04/01/18 07:00 Dose: Not Given Spironolactone (Aldactone -) 25 mg PO DAILY [facility] Last Admin: 03/31/18 09:41 Dose: 25 mg Valacyclovir HCl (Valtrex -) 500 mg PO BID [facility] Last Admin: 03/31/18 23:24 Dose: 500 mg - Objective Vital Signs: Vital Signs Temperature 98 F 04/01/18 06:00 Pulse Rate 78 04/01/18 06:00 Respiratory Rate 20 04/01/18 06:00 Blood Pressure 117/60 04/01/18 06:00 O2 Sat by Pulse Oximetry (%) 98 03/31/18 20:30 Constitutional: Yes: Well Nourished, Calm Eyes: Yes: WNL HENT: Yes: WNL Neck: Yes: WNL Cardiovascular: Yes: Pulse Irregular, S1, S2 Respiratory: Yes: Rales ( BIBASILAR CRACKLES) Gastrointestinal: Yes: Normal Bowel Sounds, Soft Extremities: Yes: WNL Edema: Yes Labs: CBC, BMP 04/01/18 06:30 04/01/18 06:30 INR, PTT INR 1.42 (0.83-1.09) H 03/30/18 17:10 Laboratory Tests 03/31/18 18:20 ABG pH 7.41 ABG pCO2 at Pt Temp 55.3 H ABG pO2 at Pt Temp 71.2 ABG HCO3 34.4 H ABG O2 Sat (Measured) 93.4 O2 Delivery Device Nasal Oxygen Flow Rate 3l Problem List - Problems (1) Abscess of left buttock Code(s): L02.31 - CUTANEOUS ABSCESS OF BUTTOCK (2) Acute kidney injury superimposed on CKD Code(s): N17.9 - ACUTE KIDNEY FAILURE, UNSPECIFIED; N18.9 - CHRONIC KIDNEY DISEASE, UNSPECIFIED (3) ASHD (arteriosclerotic heart disease) Code(s): I25.10 - ATHSCL HEART DISEASE OF [place] CORONARY ARTERY W/O ANG PCTRS (4) Acute on chronic systolic (congestive) heart failure Code(s): I50.23 - ACUTE ON CHRONIC SYSTOLIC (CONGESTIVE) HEART FAILURE (5) Atrial fibrillation Code(s): I48.91 - UNSPECIFIED ATRIAL FIBRILLATION Qualifiers: Atrial fibrillation type: chronic Qualified Code(s): I48.2 - Chronic atrial fibrillation (6) CAD (coronary artery disease) Code(s): I25.10 - ATHSCL HEART DISEASE OF [place] CORONARY ARTERY W/O ANG PCTRS Qualifiers: Coronary Disease-Associated Artery/Lesion type: bypass graft, autologous artery Associated angina: without angina Qualified Code(s): I25.810 - Atherosclerosis of coronary artery bypass graft(s) without angina pectoris (7) DM type 2 (diabetes mellitus, type 2) Code(s): E11.9 - TYPE 2 DIABETES MELLITUS WITHOUT COMPLICATIONS Qualifiers: Chronic kidney disease stage: stage 3 (moderate) (8) HTN (hypertension) Code(s): I10 - ESSENTIAL (PRIMARY) HYPERTENSION (9) Pulmonary hypertension Code(s): I27.20 - PULMONARY HYPERTENSION, UNSPECIFIED (10) S/P CABG (coronary artery bypass graft) Code(s): Z95.1 - PRESENCE OF AORTOCORONARY BYPASS GRAFT (11) Sleep apnea Code(s): G47.30 - SLEEP APNEA, UNSPECIFIED (12) Acute on chronic respiratory failure with hypoxia and hypercapnia Code(s): J96.21 - ACUTE AND CHRONIC RESPIRATORY FAILURE WITH HYPOXIA; J96.22 - ACUTE AND CHRONIC RESPIRATORY FAILURE WITH HYPERCAPNIA (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 Assessment/Plan IMP ACUTE ON CHRONIC HYPOXEMIC/HYPERCAPNEIC RESPIRATORY FAILURE ACUTE ON CHRONIC CHF COPD O2 DEPENDENT PULMONARY HTN DM JUAN AFIB LEFT BUTTOCK ABSCESS HTN OBESITY ACUTE ON CHRONIC KIDNEY DISEASE PLAN IV LASIX O2 ABX PER ID INHALED BRONCHODILATORS DAILY WT STRICT I+OS WOUND CARE PER SURGERY CHEST CT AC MONITOR LYTES,RENAL FUNCTION DR HERNANDEZ Problem List - Problems (1) Abscess of left buttock Code(s): L02.31 - CUTANEOUS ABSCESS OF BUTTOCK (2) Acute kidney injury superimposed on CKD Code(s): N17.9 - ACUTE KIDNEY FAILURE, UNSPECIFIED; N18.9 - CHRONIC KIDNEY DISEASE, UNSPECIFIED (3) ASHD (arteriosclerotic heart disease) Code(s): I25.10 - ATHSCL HEART DISEASE OF [place] CORONARY ARTERY W/O ANG PCTRS (4) Acute on chronic systolic (congestive) heart failure Code(s): I50.23 - ACUTE ON CHRONIC SYSTOLIC (CONGESTIVE) HEART FAILURE (5) Atrial fibrillation Code(s): I48.91 - UNSPECIFIED ATRIAL FIBRILLATION Qualifiers: Atrial fibrillation type: chronic Qualified Code(s): I48.2 - Chronic atrial fibrillation (6) CAD (coronary artery disease) Code(s): I25.10 - ATHSCL HEART DISEASE OF [place] CORONARY ARTERY W/O ANG PCTRS Qualifiers: Coronary Disease-Associated Artery/Lesion type: bypass graft, autologous artery Associated angina: without angina Qualified Code(s): I25.810 - Atherosclerosis of coronary artery bypass graft(s) without angina pectoris (7) DM type 2 (diabetes mellitus, type 2) Code(s): E11.9 - TYPE 2 DIABETES MELLITUS WITHOUT COMPLICATIONS Qualifiers: Chronic kidney disease stage: stage 3 (moderate) (8) HTN (hypertension) Code(s): I10 - ESSENTIAL (PRIMARY) HYPERTENSION (9) Pulmonary hypertension Code(s): I27.20 - PULMONARY HYPERTENSION, UNSPECIFIED (10) S/P CABG (coronary artery bypass graft) Code(s): Z95.1 - PRESENCE OF AORTOCORONARY BYPASS GRAFT (11) Sleep apnea Code(s): G47.30 - SLEEP APNEA, UNSPECIFIED (12) Acute on chronic respiratory failure with hypoxia and hypercapnia Code(s): J96.21 - ACUTE AND CHRONIC RESPIRATORY FAILURE WITH HYPOXIA; J96.22 - ACUTE AND CHRONIC RESPIRATORY FAILURE WITH HYPERCAPNIA (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
[2018-04-01] MEDS: predniSONE 10 MG TABLET (UD) PO SCH (10:03)
[2018-04-01] MEDS: APIXABAN 5 MG TABLET PO SCH ×2 (10:03→23:22)
[2018-04-01] MEDS: BISACODYL 5 MG TABLET.DR (FP) PO SCH (10:03)
[2018-04-01] MEDS: SPIRONOLACTONE 25 MG TABLET (FP) PO SCH (10:03)
[2018-04-01] MEDS: valACYclovir HCL 500 MG TABLET (FP) PO SCH ×2 (10:04→23:25)
[2018-04-01] MEDS: FEBUXOSTAT 40 MG TAB PO SCH (10:04)
[2018-04-01] MEDS: POLYETHYLENE GLYCOL 3350 119 GM BTL PO SCH ×2 (10:05→23:24)
[2018-04-01] MEDS ORDERED: VANCOMYCIN 750 MG in DEXTROSE 5%-WATER - 150 ML IVPB ONE (15:44)
--- NOTE | 2018-04-01 15:44 | PN ---
Progress Note (short form) - Note Progress Note: buttock abscess unroofed by surgery yesterday and cultures still painful Vital Signs Period Temp Pulse Resp BP Sys/Junior Pulse Ox Last 24 Hr 97.4 F-98.1 F 75-87 18-20 100-139/57-78 92-98 still with erythema and induration left buttock CBC, BMP 04/01/18 06:30 04/01/18 06:30 Microbiology 03/30/18 18:00 Blood - Peripheral Venous Blood Culture - Preliminary NO GROWTH OBTAINED AFTER 24 HOURS, INCUBATION TO CONTINUE FOR 4 DAYS. 03/30/18 18:00 Blood - Peripheral Venous Blood Culture - Preliminary NO GROWTH OBTAINED AFTER 24 HOURS, INCUBATION TO CONTINUE FOR 4 DAYS. culture pending vanco trough 15 a/p abscess- f/u cultures continue vanco by levels, continue zosyn chandra/ckd-f/u labs Problem List - Problems (1) Abscess of left buttock Code(s): L02.31 - CUTANEOUS ABSCESS OF BUTTOCK (2) Acute kidney injury superimposed on CKD Code(s): N17.9 - ACUTE KIDNEY FAILURE, UNSPECIFIED; N18.9 - CHRONIC KIDNEY DISEASE, UNSPECIFIED (3) Atrial fibrillation Code(s): I48.91 - UNSPECIFIED ATRIAL FIBRILLATION Qualifiers: Atrial fibrillation type: chronic Qualified Code(s): I48.2 - Chronic atrial fibrillation
[2018-04-01] MEDS ORDERED: VANCOMYCIN 750 MG in DEXTROSE 5%-WATER - 250 ML IVPB ONE (16:00)
[2018-04-01] MEDS ORDERED: INSULIN (NOVOLOG) ASPART 100 UNITS/ML 10ML VIAL ONE (17:12)
--- NOTE | 2018-04-01 19:23 | PN ---
Physical Exam: SUBJECTIVE: Patient seen and examined at the bedside. OBJECTIVE: symphony coverage for Dr. Moseley Vital Signs Period Temp Pulse Resp BP Sys/Junior Pulse Ox Last 24 Hr 97.4 F-98.0 F 75-89 18-20 103-139/59-78 92-98 GENERAL: The patient is awake, alert, and fully oriented, in no acute distress. HEAD: Normal with no signs of trauma. EYES: PERRL, extraocular movements intact, sclera anicteric, conjunctiva clear. No ptosis. ENT: Ears normal, nares patent, oropharynx clear without exudates, moist mucous membranes. NECK: Trachea midline, full range of motion, supple. LUNGS: Breath sounds equal, clear to auscultation bilaterally, no wheezes, no crackles HEART: irregular hr ABDOMEN: obese abdomen, +bowel sounds, no abdominal pain EXTREMITIES: +1 bilateral lower ext edema NEUROLOGICAL: Normal speech, gait not observed. PSYCH: Normal mood, normal affect. SKIN: left buttocks abscess Laboratory Results - last 24 hr 03/31/18 04/01/18 04/01/18 23:23 06:16 06:30 WBC RBC Hgb Hct MCV MCH MCHC RDW Plt Count MPV Absolute Neuts (auto) Neutrophils % Lymphocytes % Monocytes % Eosinophils % Basophils % Nucleated RBC % Sodium Potassium Chloride Carbon Dioxide Anion Gap BUN Creatinine Creat Clearance w eGFR POC Glucometer 183 99 Random Glucose Calcium Total Bilirubin AST ALT Alkaline Phosphatase Total Protein Albumin Random Vancomycin 14.6 L 04/01/18 04/01/18 04/01/18 06:30 06:30 10:56 WBC 8.3 RBC 4.02 Hgb 11.7 Hct 36.5 MCV 90.7 MCH 29.0 MCHC 32.0 RDW 17.0 H Plt Count 180 MPV 8.1 Absolute Neuts (auto) 5.5 Neutrophils % 66.2 Lymphocytes % 17.7 D Monocytes % 12.9 H Eosinophils % 2.5 Basophils % 0.7 Nucleated RBC % 0 Sodium 135 L Potassium 3.9 Chloride 92 L Carbon Dioxide 33 H Anion Gap 10 BUN 65 H Creatinine 2.3 H Creat Clearance w eGFR 27.10 POC Glucometer 149 Random Glucose 94 Calcium 8.8 Total Bilirubin 0.6 AST 18 ALT 25 Alkaline Phosphatase 60 Total Protein 6.6 Albumin 3.2 L Random Vancomycin 04/01/18 17:05 WBC RBC Hgb Hct MCV MCH MCHC RDW Plt Count MPV Absolute Neuts (auto) Neutrophils % Lymphocytes % Monocytes % Eosinophils % Basophils % Nucleated RBC % Sodium Potassium Chloride Carbon Dioxide Anion Gap BUN Creatinine Creat Clearance w eGFR POC Glucometer 250 Random Glucose Calcium Total Bilirubin AST ALT Alkaline Phosphatase Total Protein Albumin Random Vancomycin Active Medications Generic Name Dose Route Start Last Admin Trade Name Freq PRN Reason Stop Dose Admin Acetaminophen 500 mg 03/30/18 17:46 Tylenol - PO Q6H PRN PAIN LEVEL 1 - 3 Apixaban 5 mg 03/30/18 22:00 04/01/18 10:03 Eliquis - PO 5 mg BID JOE Administration Atorvastatin Calcium 10 mg 03/31/18 22:00 03/31/18 23:24 Lipitor - PO 10 mg HS JOE Administration Bisacodyl 10 mg 03/31/18 10:00 04/01/18 10:03 Dulcolax - PO 10 mg DAILY JOE Administration Febuxostat 40 mg 03/31/18 10:00 04/01/18 10:04 Uloric - PO 40 mg DAILY JOE Administration Furosemide 80 mg 03/30/18 17:30 04/01/18 14:48 Lasix Injection - IVPUSH 80 mg BIDLASIX JOE Administration Piperacillin Sod/Tazobactam 50 mls @ 100 mls/hr 03/31/18 18:00 04/01/18 17:10 Sod 3.375 gm/ Dextrose IVPB 100 mls/hr Q8H-IV JOE Administration Protocol Insulin Aspart 1 vial 03/30/18 22:00 04/01/18 17:11 Novolog Vial Sliding Scale - SQ 2 unit ACHS JOE Administration Protocol Insulin Detemir 20 units 03/30/18 22:00 04/01/18 07:01 Levemir Vial SQ Not Given BID@0700,2200 JOE Ipratropium [place] 1 amp 03/30/18 17:30 04/01/18 16:10 Atrovent 0.02% Nebulizer - NEB 1 amp RQID JOE Administration Levothyroxine Sodium 50 mcg 03/31/18 07:00 04/01/18 07:01 Synthroid - PO 50 mcg DAILY@0700 JOE Administration Metoprolol Succinate 100 mg 03/30/18 22:00 04/01/18 10:03 Toprol Xl - PO 100 mg BID JOE Administration Oxycodone HCl 5 mg 03/31/18 16:55 03/31/18 17:15 Roxicodone - PO 5 mg Q6H PRN Administration PAIN LEVEL 1-5 Polyethylene Glycol 17 gm 03/30/18 22:00 04/01/18 10:05 Miralax (For Daily Use) - PO Not Given BID JOE Prednisone 10 mg 03/31/18 10:00 04/01/18 10:03 Deltasone - PO 10 mg DAILY JOE Administration Sitagliptin Phosphate 25 mg 03/31/18 07:00 04/01/18 07:00 Januvia - PO Not Given DAILY@0700 JOE Spironolactone 25 mg 03/31/18 10:00 04/01/18 10:03 Aldactone - PO 25 mg DAILY JOE Administration Valacyclovir HCl 500 mg 03/31/18 10:00 04/01/18 10:04 Valtrex - PO 500 mg BID JOE Administration ASSESSMENT/PLAN: Patient is an 87 year old male with a significant past medical history of, CABG , ASHD, diabetes II, CKD, pleural disease, JUAN (on bipap), gout, recent rectal surgery and persistent 6.7cm of left basilar atelectasis. He was sent to the ED for further management of a painful erythemous lesion with necrosis of left buttocks. ID: Cellulitis of left buttocks Surgery performed bedside I&D and packing yesterday. On Zosyn Card: Systolic CHF, acute on chronic monitor weighs, intake and output On IV lasix 80mg iv Atrial fibrillation On eliquis, metoprolol Endocrine Diabetes Levemir, novolog Goal is to keep fasting bgm <180 Pulm: acute respiratory failure with hypercapnia On bipap, pulm following On prednisone, atrovent fen tolerating po monitor electrolytes diabetic diet prophy: eliquis Visit type - Emergency Visit Emergency Visit: Yes ED Registration Date: 03/30/18 Care time: The patient presented to the Emergency Department on the above date and was hospitalized for further evaluation of their emergent condition. - New Patient This patient is new to me today: Yes Date on this admission: 04/01/18 - Critical Care Critical Care patient: No - Discharge Referral Referred to [facility] Med P.C.: No
[2018-04-01] MEDS: ATORVASTATIN CA 10 MG TABLET (FP) PO SCH (23:22)
[2018-04-02] MEDS ORDERED: PIPERACILLIN/TAZOBACTAM 3.375 GM VIAL IVPB ONE ×2 (03:45→09:00)
[2018-04-02] MEDS ORDERED: DEXTROSE 5%-WATER - 50 ML IVPB ONE ×2 (03:45→09:00)
[2018-04-02] MEDS: PIPERACILLIN/TAZOB 3.375 GM 3.375 GM in DEXTROSE 5%-WATER - 50 ML IVPB SCH ×2 (03:48→09:26)
[2018-04-02] MEDS: INSULIN SLIDING SCALE (NOVOLOG) 1 VIAL SQ SCH ×4 (06:35→22:07)
[2018-04-02] MEDS: sitaGLIPtin PHOSPHATE 25 MG TABLET (FP) PO SCH (06:35)
[2018-04-02] MEDS: FUROSEMIDE 40 MG/4 ML INJECTABLE VIAL IVPUSH SCH ×2 (06:35→13:29)
[2018-04-02] MEDS: INSULIN (LEVEMIR) 100 UNITS/ML UNITS SQ SCH ×2 (06:36→22:07)
[2018-04-02] MEDS: LEVOTHYROXINE NA 50 MCG TABLET (FP) PO SCH (06:36)
[2018-04-02] MEDS: IPRATROPIUM BR 0.02% 0.5 MG/2.5 ML VIAL.NEB. NEB SCH ×4 (07:42→21:15)
[2018-04-02 07:45] LABS: BASO % 0.9 % (0-2.0); EOS % 3.2 % (0-4.5); HEMATOCRIT 36.7 % (35.4-49); HEMOGLOBIN 11.5 GM/dL (11.7-16.9); LYMPH % 12.9 % (8-40); MCH 28.6 pg (25.7-33.7); MCHC 31.4 g/dl (32.0-35.9); MEAN CELL VOLUME 91.2 fl (80-96); MONO % 10.7 % (3.8-10.2); NEUT % 72.3 % (42.8-82.8); PLATELET COUNT 190 K/MM3 (134-434); RBC 4.03 M/mm3 (4.00-5.60); WHITE BLOOD COUNT 7.3 K/mm3 (4.0-10.0)
[2018-04-02 08:20] LABS: ALBUMIN 3.1 g/dl (3.4-5.0); ALK PHOS 61 U/L (45-117); ANION GAP 7 MMOL/L (8-16); BILIRUBIN,TOTAL 0.9 mg/dL (0.2-1); BLOOD UREA NITROGEN 69 mg/dL (7-18); CALCIUM 8.6 mg/dL (8.5-10.1); CHLORIDE 94 mmol/L (98-107); CO2 36 mmol/L (21-32); CREATININE 2.6 mg/dL (0.55-1.3); GLUCOSE,RANDOM 148 mg/dL (74-106); MAGNESIUM 2.6 mg/dL (1.8-2.4); POTASSIUM 3.8 mmol/L (3.5-5.1); SGOT/AST 20 U/L (15-37); SGPT/ALT 25 U/L (13-61); SODIUM 137 mmol/L (136-145); TOT PROT 6.6 g/dl (6.4-8.2)
--- NOTE | 2018-04-02 09:03 | PN ---
Progress Note, Physician - Current Medication List Current Medications: Active Medications Acetaminophen (Tylenol -) 500 mg PO Q6H PRN PRN Reason: PAIN LEVEL 1 - 3 Apixaban (Eliquis -) 5 mg PO BID ON LICENSE OF [facility] Last Admin: 04/01/18 23:22 Dose: 5 mg Atorvastatin Calcium (Lipitor -) 10 mg PO HS ON LICENSE OF [facility] Last Admin: 04/01/18 23:22 Dose: 10 mg Bisacodyl (Dulcolax -) 10 mg PO DAILY ON LICENSE OF [facility] Last Admin: 04/01/18 10:03 Dose: 10 mg Febuxostat (Uloric -) 40 mg PO DAILY ON LICENSE OF [facility] Last Admin: 04/01/18 10:04 Dose: 40 mg Furosemide (Lasix Injection -) 80 mg IVPUSH BIDLASIX ON LICENSE OF [facility] Last Admin: 04/02/18 06:35 Dose: 80 mg Piperacillin Sod/Tazobactam (Sod 3.375 gm/ Dextrose) 50 mls @ 100 mls/hr IVPB Q8H-IV ON LICENSE OF [facility]; Protocol Last Admin: 04/02/18 03:48 Dose: 100 mls/hr Insulin Aspart (Novolog Vial Sliding Scale -) 1 vial SQ ACHS ON LICENSE OF [facility]; Protocol Last Admin: 04/02/18 06:35 Dose: Not Given Insulin Detemir (Levemir Vial) 20 units SQ BID@0700,2200 ON LICENSE OF [facility] Last Admin: 04/02/18 06:36 Dose: 20 units Ipratropium [place] (Atrovent 0.02% Nebulizer -) 1 amp NEB RQID ON LICENSE OF [facility] Last Admin: 04/02/18 07:42 Dose: 1 amp Levothyroxine Sodium (Synthroid -) 50 mcg PO DAILY@0700 ON LICENSE OF [facility] Last Admin: 04/02/18 06:36 Dose: 50 mcg Metoprolol Succinate (Toprol Xl -) 100 mg PO BID ON LICENSE OF [facility] Last Admin: 04/01/18 23:22 Dose: 100 mg Oxycodone HCl (Roxicodone -) 5 mg PO Q6H PRN PRN Reason: PAIN LEVEL 1-5 Last Admin: 03/31/18 17:15 Dose: 5 mg Polyethylene Glycol (Miralax (For Daily Use) -) 17 gm PO BID ON LICENSE OF [facility] Last Admin: 04/01/18 23:24 Dose: 17 gm Prednisone (Deltasone -) 10 mg PO DAILY ON LICENSE OF [facility] Last Admin: 04/01/18 10:03 Dose: 10 mg Sitagliptin Phosphate (Januvia -) 25 mg PO DAILY@0700 ON LICENSE OF [facility] Last Admin: 04/02/18 06:35 Dose: 25 mg Spironolactone (Aldactone -) 25 mg PO DAILY ON LICENSE OF [facility] Last Admin: 04/01/18 10:03 Dose: 25 mg Valacyclovir HCl (Valtrex -) 500 mg PO BID ON LICENSE OF [facility] Last Admin: 04/01/18 23:25 Dose: 500 mg - Objective Vital Signs: Vital Signs Temperature 97.4 F L 04/02/18 05:19 Pulse Rate 74 04/02/18 05:19 Respiratory Rate 20 04/02/18 05:19 Blood Pressure 105/57 L 04/02/18 05:19 O2 Sat by Pulse Oximetry (%) 95 04/02/18 07:43 Eyes: Yes: WNL, Conjunctiva Clear, EOM Intact HENT: Yes: WNL, Atraumatic, Normocephalic Neck: Yes: WNL, Supple, Trachea Midline Cardiovascular: Yes: Pulse Irregular Respiratory: Yes: WNL, Regular, CTA Bilaterally Gastrointestinal: Yes: WNL, Normal Bowel Sounds Genitourinary: Yes: WNL Musculoskeletal: Yes: WNL Extremities: Yes: WNL Edema: No Integumentary: Yes: WNL Neurological: Yes: WNL, Alert, Oriented ...Motor Strength: WNL Psychiatric: Yes: WNL Labs: CBC, BMP 04/02/18 06:30 04/02/18 06:30 INR, PTT INR 1.42 (0.83-1.09) H 03/30/18 17:10 Assessment/Plan IMP: CAD s/p CABG, ischemic CM with EF 35-40% DM CKD 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 Tele 2. IV Lasix with daily weights, daily BMP to follow renal fx; supplimental O2 3. IV abx as per PMD coverage for dr. Starkey
[2018-04-02] MEDS: APIXABAN 5 MG TABLET PO SCH ×2 (09:26→21:25)
[2018-04-02] MEDS: predniSONE 10 MG TABLET (UD) PO SCH (09:26)
[2018-04-02] MEDS: BISACODYL 5 MG TABLET.DR (FP) PO SCH (09:26)
[2018-04-02] MEDS: SPIRONOLACTONE 25 MG TABLET (FP) PO SCH (09:27)
[2018-04-02] MEDS: POLYETHYLENE GLYCOL 3350 119 GM BTL PO SCH ×2 (09:27→21:25)
[2018-04-02] MEDS: valACYclovir HCL 500 MG TABLET (FP) PO SCH ×2 (09:28→21:25)
[2018-04-02] MEDS: FEBUXOSTAT 40 MG TAB PO SCH (09:28)
--- NOTE | 2018-04-02 10:43 | PN ---
Progress Note, Physician History of Present Illness: pulmonary alert,comfortable,c/o left buttock pain, dyspnea improving - Current Medication List Current Medications: Active Medications Acetaminophen (Tylenol -) 500 mg PO Q6H PRN PRN Reason: PAIN LEVEL 1 - 3 Apixaban (Eliquis -) 5 mg PO BID COUNT INCLUDES THE [facility] Last Admin: 04/02/18 09:26 Dose: 5 mg Atorvastatin Calcium (Lipitor -) 10 mg PO HS COUNT INCLUDES THE [facility] Last Admin: 04/01/18 23:22 Dose: 10 mg Bisacodyl (Dulcolax -) 10 mg PO DAILY COUNT INCLUDES THE [facility] Last Admin: 04/02/18 09:26 Dose: 10 mg Febuxostat (Uloric -) 40 mg PO DAILY COUNT INCLUDES THE [facility] Last Admin: 04/02/18 09:28 Dose: 40 mg Furosemide (Lasix Injection -) 80 mg IVPUSH BIDLASIX COUNT INCLUDES THE [facility] Last Admin: 04/02/18 06:35 Dose: 80 mg Piperacillin Sod/Tazobactam (Sod 3.375 gm/ Dextrose) 50 mls @ 100 mls/hr IVPB Q8H-IV COUNT INCLUDES THE [facility]; Protocol Last Admin: 04/02/18 09:26 Dose: 100 mls/hr Insulin Aspart (Novolog Vial Sliding Scale -) 1 vial SQ ACHS COUNT INCLUDES THE [facility]; Protocol Last Admin: 04/02/18 06:35 Dose: Not Given Insulin Detemir (Levemir Vial) 20 units SQ BID@0700,2200 COUNT INCLUDES THE [facility] Last Admin: 04/02/18 06:36 Dose: 20 units Ipratropium [place] (Atrovent 0.02% Nebulizer -) 1 amp NEB RQID COUNT INCLUDES THE [facility] Last Admin: 04/02/18 07:42 Dose: 1 amp Levothyroxine Sodium (Synthroid -) 50 mcg PO DAILY@0700 COUNT INCLUDES THE [facility] Last Admin: 04/02/18 06:36 Dose: 50 mcg Metoprolol Succinate (Toprol Xl -) 100 mg PO BID COUNT INCLUDES THE [facility] Last Admin: 04/02/18 09:26 Dose: 100 mg Oxycodone HCl (Roxicodone -) 5 mg PO Q6H PRN PRN Reason: PAIN LEVEL 1-5 Last Admin: 03/31/18 17:15 Dose: 5 mg Polyethylene Glycol (Miralax (For Daily Use) -) 17 gm PO BID COUNT INCLUDES THE [facility] Last Admin: 04/02/18 09:27 Dose: Not Given Prednisone (Deltasone -) 10 mg PO DAILY COUNT INCLUDES THE [facility] Last Admin: 04/02/18 09:26 Dose: 10 mg Sitagliptin Phosphate (Januvia -) 25 mg PO DAILY@0700 COUNT INCLUDES THE [facility] Last Admin: 04/02/18 06:35 Dose: 25 mg Spironolactone (Aldactone -) 25 mg PO DAILY COUNT INCLUDES THE [facility] Last Admin: 04/02/18 09:27 Dose: 25 mg Valacyclovir HCl (Valtrex -) 500 mg PO BID COUNT INCLUDES THE [facility] Last Admin: 04/02/18 09:28 Dose: 500 mg - Objective Vital Signs: Vital Signs Temperature 97.4 F L 04/02/18 05:19 Pulse Rate 74 04/02/18 05:19 Respiratory Rate 20 04/02/18 05:19 Blood Pressure 105/57 L 04/02/18 05:19 O2 Sat by Pulse Oximetry (%) 95 04/02/18 07:43 Constitutional: Yes: Well Nourished, Calm Eyes: Yes: WNL HENT: Yes: WNL Neck: Yes: WNL Cardiovascular: Yes: Pulse Irregular, S1, S2 Respiratory: Yes: Rales (bibasilar ralesl) Gastrointestinal: Yes: Normal Bowel Sounds, Soft Extremities: Yes: WNL Edema: Yes Labs: CBC, BMP 04/02/18 06:30 04/02/18 06:30 INR, PTT INR 1.42 (0.83-1.09) H 03/30/18 17:10 Problem List - Problems (1) Abscess of left buttock Code(s): L02.31 - CUTANEOUS ABSCESS OF BUTTOCK (2) Acute kidney injury superimposed on CKD Code(s): N17.9 - ACUTE KIDNEY FAILURE, UNSPECIFIED; N18.9 - CHRONIC KIDNEY DISEASE, UNSPECIFIED (3) ASHD (arteriosclerotic heart disease) Code(s): I25.10 - ATHSCL HEART DISEASE OF [place] CORONARY ARTERY W/O ANG PCTRS (4) Acute on chronic systolic (congestive) heart failure Code(s): I50.23 - ACUTE ON CHRONIC SYSTOLIC (CONGESTIVE) HEART FAILURE (5) Atrial fibrillation Code(s): I48.91 - UNSPECIFIED ATRIAL FIBRILLATION Qualifiers: Atrial fibrillation type: chronic Qualified Code(s): I48.2 - Chronic atrial fibrillation (6) CAD (coronary artery disease) Code(s): I25.10 - ATHSCL HEART DISEASE OF [place] CORONARY ARTERY W/O ANG PCTRS Qualifiers: Coronary Disease-Associated Artery/Lesion type: bypass graft, autologous artery Associated angina: without angina Qualified Code(s): I25.810 - Atherosclerosis of coronary artery bypass graft(s) without angina pectoris (7) DM type 2 (diabetes mellitus, type 2) Code(s): E11.9 - TYPE 2 DIABETES MELLITUS WITHOUT COMPLICATIONS Qualifiers: Chronic kidney disease stage: stage 3 (moderate) (8) HTN (hypertension) Code(s): I10 - ESSENTIAL (PRIMARY) HYPERTENSION (9) Pulmonary hypertension Code(s): I27.20 - PULMONARY HYPERTENSION, UNSPECIFIED (10) S/P CABG (coronary artery bypass graft) Code(s): Z95.1 - PRESENCE OF AORTOCORONARY BYPASS GRAFT (11) Sleep apnea Code(s): G47.30 - SLEEP APNEA, UNSPECIFIED (12) Acute on chronic respiratory failure with hypoxia and hypercapnia Code(s): J96.21 - ACUTE AND CHRONIC RESPIRATORY FAILURE WITH HYPOXIA; J96.22 - ACUTE AND CHRONIC RESPIRATORY FAILURE WITH HYPERCAPNIA (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 Assessment/Plan IMP ACUTE ON CHRONIC HYPOXEMIC/HYPERCAPNEIC RESPIRATORY FAILURE ACUTE ON CHRONIC CHF COPD O2 DEPENDENT PULMONARY HTN DM JUAN AFIB LEFT BUTTOCK ABSCESS HTN OBESITY ACUTE ON CHRONIC KIDNEY DISEASE PLAN IV LASIX PER CARDIOLOGY O2 ABX PER ID INHALED BRONCHODILATORS DAILY WT STRICT I+OS WOUND CARE PER SURGERY CHEST CT AC MONITOR LYTES,RENAL FUNCTION DR HERNANDEZ Problem List - Problems (1) Abscess of left buttock Code(s): L02.31 - CUTANEOUS ABSCESS OF BUTTOCK (2) Acute kidney injury superimposed on CKD Code(s): N17.9 - ACUTE KIDNEY FAILURE, UNSPECIFIED; N18.9 - CHRONIC KIDNEY DISEASE, UNSPECIFIED (3) ASHD (arteriosclerotic heart disease) Code(s): I25.10 - ATHSCL HEART DISEASE OF [place] CORONARY ARTERY W/O ANG PCTRS (4) Acute on chronic systolic (congestive) heart failure Code(s): I50.23 - ACUTE ON CHRONIC SYSTOLIC (CONGESTIVE) HEART FAILURE (5) Atrial fibrillation Code(s): I48.91 - UNSPECIFIED ATRIAL FIBRILLATION Qualifiers: Atrial fibrillation type: chronic Qualified Code(s): I48.2 - Chronic atrial fibrillation (6) CAD (coronary artery disease) Code(s): I25.10 - ATHSCL HEART DISEASE OF [place] CORONARY ARTERY W/O ANG PCTRS Qualifiers: Coronary Disease-Associated Artery/Lesion type: bypass graft, autologous artery Associated angina: without angina Qualified Code(s): I25.810 - Atherosclerosis of coronary artery bypass graft(s) without angina pectoris (7) DM type 2 (diabetes mellitus, type 2) Code(s): E11.9 - TYPE 2 DIABETES MELLITUS WITHOUT COMPLICATIONS Qualifiers: Chronic kidney disease stage: stage 3 (moderate) (8) HTN (hypertension) Code(s): I10 - ESSENTIAL (PRIMARY) HYPERTENSION (9) Pulmonary hypertension Code(s): I27.20 - PULMONARY HYPERTENSION, UNSPECIFIED (10) S/P CABG (coronary artery bypass graft) Code(s): Z95.1 - PRESENCE OF AORTOCORONARY BYPASS GRAFT (11) Sleep apnea Code(s): G47.30 - SLEEP APNEA, UNSPECIFIED (12) Acute on chronic respiratory failure with hypoxia and hypercapnia Code(s): J96.21 - ACUTE AND CHRONIC RESPIRATORY FAILURE WITH HYPOXIA; J96.22 - ACUTE AND CHRONIC RESPIRATORY FAILURE WITH HYPERCAPNIA (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
[2018-04-02] MEDS ORDERED: ALBUTEROL SO4 0.5 % INH SOLN 2.5 MG/0.5 ML VIAL.NEB. NEB ONE (11:11)
--- NOTE | 2018-04-02 11:11 | PN ---
Physical Exam: SUBJECTIVE: Patient seen and examined at the bedside. states he feels well. OBJECTIVE: wheezing, ox 96% on 3 liters, sat up on bed. duoneb x 1 now, place on bipap as needed rising creatinine, renal consulted Vital Signs Period Temp Pulse Resp BP Sys/Junior Pulse Ox Last 24 Hr 97.4 F-98.1 F 74-89 20-20 103-128/57-75 90-95 GENERAL: The patient is awake, alert, and fully oriented, in no acute distress. HEAD: Normal with no signs of trauma. EYES: PERRL, extraocular movements intact, sclera anicteric, conjunctiva clear. No ptosis. ENT: Ears normal, nares patent, oropharynx clear without exudates, moist mucous membranes. NECK: Trachea midline, full range of motion, supple. LUNGS: Breath sounds equal, clear to auscultation bilaterally, no wheezes, no crackles HEART: irregular hr ABDOMEN: obese abdomen, +bowel sounds, no abdominal pain EXTREMITIES: +1 bilateral lower ext edema NEUROLOGICAL: Normal speech, gait not observed. PSYCH: Normal mood, normal affect. SKIN: left buttocks abscess Laboratory Results - last 24 hr 04/01/18 04/01/18 04/01/18 10:56 17:05 23:21 WBC RBC Hgb Hct MCV MCH MCHC RDW Plt Count MPV Absolute Neuts (auto) Neutrophils % Lymphocytes % Monocytes % Eosinophils % Basophils % Nucleated RBC % Sodium Potassium Chloride Carbon Dioxide Anion Gap BUN Creatinine Creat Clearance w eGFR POC Glucometer 149 250 174 Random Glucose Calcium Magnesium Total Bilirubin AST ALT Alkaline Phosphatase Total Protein Albumin 04/02/18 04/02/18 04/02/18 05:17 06:30 06:30 WBC 7.3 RBC 4.03 Hgb 11.5 L Hct 36.7 MCV 91.2 MCH 28.6 MCHC 31.4 L RDW 17.0 H Plt Count 190 MPV 8.0 Absolute Neuts (auto) 5.3 Neutrophils % 72.3 Lymphocytes % 12.9 D Monocytes % 10.7 H Eosinophils % 3.2 Basophils % 0.9 Nucleated RBC % 0 Sodium 137 Potassium 3.8 Chloride 94 L Carbon Dioxide 36 H Anion Gap 7 L BUN 69 H Creatinine 2.6 H Creat Clearance w eGFR 23.52 POC Glucometer 155 Random Glucose 148 H Calcium 8.6 Magnesium 2.6 H Total Bilirubin 0.9 AST 20 ALT 25 Alkaline Phosphatase 61 Total Protein 6.6 Albumin 3.1 L Active Medications Generic Name Dose Route Start Last Admin Trade Name Freq PRN Reason Stop Dose Admin Acetaminophen 500 mg 03/30/18 17:46 Tylenol - PO Q6H PRN PAIN LEVEL 1 - 3 Apixaban 5 mg 03/30/18 22:00 04/02/18 09:26 Eliquis - PO 5 mg BID JOE Administration Atorvastatin Calcium 10 mg 03/31/18 22:00 04/01/18 23:22 Lipitor - PO 10 mg HS [facility] Administration Bisacodyl 10 mg 03/31/18 10:00 04/02/18 09:26 Dulcolax - PO 10 mg DAILY JOE Administration Febuxostat 40 mg 03/31/18 10:00 04/02/18 09:28 Uloric - PO 40 mg DAILY JOE Administration Furosemide 80 mg 03/30/18 17:30 04/02/18 06:35 Lasix Injection - IVPUSH 80 mg BIDLASIX [facility] Administration Piperacillin Sod/Tazobactam 50 mls @ 100 mls/hr 03/31/18 18:00 04/02/18 09:26 Sod 3.375 gm/ Dextrose IVPB 100 mls/hr Q8H-IV [facility] Administration Protocol Insulin Aspart 1 vial 03/30/18 22:00 04/02/18 06:35 Novolog Vial Sliding Scale - SQ [facility] Protocol Insulin Detemir 20 units 03/30/18 22:00 04/02/18 06:36 Levemir Vial SQ 20 units BID@0700,2200 [facility] Administration Ipratropium [place] 1 amp 03/30/18 17:30 04/02/18 07:42 Atrovent 0.02% Nebulizer - NEB 1 amp RQID [facility] Administration Levothyroxine Sodium 50 mcg 03/31/18 07:00 04/02/18 06:36 Synthroid - PO 50 mcg DAILY@0700 [facility] Administration Metoprolol Succinate 100 mg 03/30/18 22:00 04/02/18 09:26 Toprol Xl - PO 100 mg BID JOE Administration Oxycodone HCl 5 mg 03/31/18 16:55 03/31/18 17:15 Roxicodone - PO 5 mg Q6H PRN Administration PAIN LEVEL 1-5 Polyethylene Glycol 17 gm 03/30/18 22:00 04/02/18 09:27 Miralax (For Daily Use) - PO Not Given BID JOE Prednisone 10 mg 03/31/18 10:00 04/02/18 09:26 Deltasone - PO 10 mg DAILY JOE Administration Sitagliptin Phosphate 25 mg 03/31/18 07:00 04/02/18 06:35 Januvia - PO 25 mg DAILY@0700 JOE Administration Spironolactone 25 mg 03/31/18 10:00 04/02/18 09:27 Aldactone - PO 25 mg DAILY JOE Administration Valacyclovir HCl 500 mg 03/31/18 10:00 04/02/18 09:28 Valtrex - PO 500 mg BID JOE Administration ASSESSMENT/PLAN: Patient is an 87 year old male with a significant past medical history of, CABG , ASHD, diabetes II, CKD, pleural disease, JUAN (on bipap), gout, recent rectal surgery and persistent 6.7cm of left basilar atelectasis. He was sent to the ED for further management of a painful erythemous lesion with necrosis of left buttocks. ID: Cellulitis of left buttocks Surgery performed bedside I&D and packing yesterday. On Zosyn. ID following. daily dressing changes. Card: Systolic CHF, acute on chronic monitor weighs, intake and output On IV lasix 80mg iv Atrial fibrillation On eliquis, metoprolol Endocrine Diabetes Levemir, novolog Goal is to keep fasting bgm <180 CKD bun/creat rising on lasix 80mg bid renal consulted. Pulm: acute respiratory failure with hypercapnia On bipap, pulm following On prednisone, atrovent monitor oxygen saturations fen tolerating po monitor electrolytes diabetic diet prophy: eliquis Visit type - Emergency Visit Emergency Visit: Yes ED Registration Date: 03/30/18 Care time: The patient presented to the Emergency Department on the above date and was hospitalized for further evaluation of their emergent condition. - New Patient This patient is new to me today: No - Critical Care Critical Care patient: No - Discharge Referral Referred to [facility] No
--- NOTE | 2018-04-02 14:12 | PN ---
Progress Note (short form) - Note Progress Note: buttock abscess unroofed by surgery yesterday and cultures still painful Vital Signs Period Temp Pulse Resp BP Sys/Junior Pulse Ox Last 24 Hr 97.4 F-98.1 F 74-89 20-20 105-128/57-75 90-95 cor-rrr lungs clear buttock wound packed, +induration ext no edema CBC, BMP 04/02/18 06:30 04/02/18 06:30 Microbiology 03/31/18 16:50 Abscess Gram Stain - Final 03/31/18 16:50 Abscess Wound Culture - Preliminary Presumptive Mrsa (Pbp2a Pos) 03/30/18 18:00 Blood - Peripheral Venous Blood Culture - Preliminary NO GROWTH OBTAINED AFTER 48 HOURS, INCUBATION TO CONTINUE FOR 3 DAYS. 03/30/18 18:00 Blood - Peripheral Venous Blood Culture - Preliminary NO GROWTH OBTAINED AFTER 48 HOURS, INCUBATION TO CONTINUE FOR 3 DAYS. Active Medications Acetaminophen (Tylenol -) 500 mg PO Q6H PRN PRN Reason: PAIN LEVEL 1 - 3 Apixaban (Eliquis -) 5 mg PO BID [facility] Last Admin: 04/02/18 09:26 Dose: 5 mg Atorvastatin Calcium (Lipitor -) 10 mg PO HS [facility] Last Admin: 04/01/18 23:22 Dose: 10 mg Bisacodyl (Dulcolax -) 10 mg PO DAILY [facility] Last Admin: 04/02/18 09:26 Dose: 10 mg Febuxostat (Uloric -) 40 mg PO DAILY [facility] Last Admin: 04/02/18 09:28 Dose: 40 mg Furosemide (Lasix Injection -) 80 mg IVPUSH BIDLASIX [facility] Last Admin: 04/02/18 13:29 Dose: 80 mg Piperacillin Sod/Tazobactam (Sod 3.375 gm/ Dextrose) 50 mls @ 100 mls/hr IVPB Q8H-IV [facility]; Protocol Last Admin: 04/02/18 09:26 Dose: 100 mls/hr Insulin Aspart (Novolog Vial Sliding Scale -) 1 vial SQ ACHS [facility]; Protocol Last Admin: 04/02/18 12:00 Dose: 2 unit Insulin Detemir (Levemir Vial) 20 units SQ BID@0700,2200 [facility] Last Admin: 04/02/18 06:36 Dose: 20 units Ipratropium [place] (Atrovent 0.02% Nebulizer -) 1 amp NEB RQID [facility] Last Admin: 04/02/18 12:12 Dose: 1 amp Levothyroxine Sodium (Synthroid -) 50 mcg PO DAILY@0700 [facility] Last Admin: 04/02/18 06:36 Dose: 50 mcg Metoprolol Succinate (Toprol Xl -) 100 mg PO BID [facility] Last Admin: 04/02/18 09:26 Dose: 100 mg Oxycodone HCl (Roxicodone -) 5 mg PO Q6H PRN PRN Reason: PAIN LEVEL 1-5 Last Admin: 03/31/18 17:15 Dose: 5 mg Polyethylene Glycol (Miralax (For Daily Use) -) 17 gm PO BID [facility] Last Admin: 04/02/18 09:27 Dose: Not Given Prednisone (Deltasone -) 10 mg PO DAILY [facility] Last Admin: 04/02/18 09:26 Dose: 10 mg Sitagliptin Phosphate (Januvia -) 25 mg PO DAILY@0700 [facility] Last Admin: 04/02/18 06:35 Dose: 25 mg Spironolactone (Aldactone -) 25 mg PO DAILY [facility] Last Admin: 04/02/18 09:27 Dose: 25 mg Valacyclovir HCl (Valtrex -) 500 mg PO BID [facility] Last Admin: 04/02/18 09:28 Dose: 500 mg a/p MRSA buttock abscess-d/c zosyn, check vanco level and redose hopefully switch to clindamycin when sensitivity is back contact isolation chandra/ckd-worsening renal function Problem List - Problems (1) Abscess of left buttock Code(s): L02.31 - CUTANEOUS ABSCESS OF BUTTOCK (2) Acute kidney injury superimposed on CKD Code(s): N17.9 - ACUTE KIDNEY FAILURE, UNSPECIFIED; N18.9 - CHRONIC KIDNEY DISEASE, UNSPECIFIED (3) Atrial fibrillation Code(s): I48.91 - UNSPECIFIED ATRIAL FIBRILLATION Qualifiers: Atrial fibrillation type: chronic Qualified Code(s): I48.2 - Chronic atrial fibrillation
[2018-04-02] MEDS ORDERED: VANCOMYCIN 750 MG in DEXTROSE 5%-WATER - 250 ML IVPB ONE (20:00)
[2018-04-02] MEDS: ATORVASTATIN CA 10 MG TABLET (FP) PO SCH (21:25)
[2018-04-03] MEDS: ACETAMINOPHEN 500 MG TABLET (FP) PO PRN ×2 (02:36→14:41)
[2018-04-03] MEDS: INSULIN SLIDING SCALE (NOVOLOG) 1 VIAL SQ SCH ×4 (06:08→21:41)
[2018-04-03] MEDS: INSULIN (LEVEMIR) 100 UNITS/ML UNITS SQ SCH ×2 (06:12→21:42)
[2018-04-03] MEDS: sitaGLIPtin PHOSPHATE 25 MG TABLET (FP) PO SCH (06:12)
[2018-04-03] MEDS: FUROSEMIDE 40 MG/4 ML INJECTABLE VIAL IVPUSH SCH ×2 (06:12→14:28)
[2018-04-03] MEDS: LEVOTHYROXINE NA 50 MCG TABLET (FP) PO SCH (06:15)
[2018-04-03] MEDS: IPRATROPIUM BR 0.02% 0.5 MG/2.5 ML VIAL.NEB. NEB SCH ×4 (07:48→20:57)
[2018-04-03 08:29] LABS: BASO % 0.9 % (0-2.0); EOS % 3.4 % (0-4.5); HEMATOCRIT 34.6 % (35.4-49); HEMOGLOBIN 11.6 GM/dL (11.7-16.9); LYMPH % 23.7 % (8-40); MCH 30.1 pg (25.7-33.7); MCHC 33.6 g/dl (32.0-35.9); MEAN CELL VOLUME 89.8 fl (80-96); MEAN PLT VOLUME 8.5 fl (7.5-11.1); MONO % 14.4 % (3.8-10.2); NEUT % 57.6 % (42.8-82.8); PLATELET COUNT 216 K/MM3 (134-434); RBC 3.85 M/mm3 (4.00-5.60); RDW 16.8 % (11.9-15.9); WHITE BLOOD COUNT 7.4 K/mm3 (4.0-10.0)
[2018-04-03 08:39] LABS: ALBUMIN 3.2 g/dl (3.4-5.0); ALK PHOS 67 U/L (45-117); ANION GAP 8 MMOL/L (8-16); BILIRUBIN,TOTAL 0.4 mg/dL (0.2-1); BLOOD UREA NITROGEN 71 mg/dL (7-18); CALCIUM 8.6 mg/dL (8.5-10.1); CHLORIDE 93 mmol/L (98-107); CO2 36 mmol/L (21-32); CREATININE 2.5 mg/dL (0.55-1.3); GLUCOSE,RANDOM 120 mg/dL (74-106); MAGNESIUM 2.6 mg/dL (1.8-2.4); POTASSIUM 3.7 mmol/L (3.5-5.1); SGOT/AST 17 U/L (15-37); SGPT/ALT 29 U/L (13-61); SODIUM 137 mmol/L (136-145); TOT PROT 6.6 g/dl (6.4-8.2)
--- NOTE | 2018-04-03 08:46 | PN ---
Progress Note (short form) - Note Progress Note: ID, symphony consult appreciated MRSA buttock abscess deroofed, packed. LE edema improved PE Awake, alert Lungs clear Heart S1S2 regular Abdomen soft, NT, obese Left buttock abscess packed Ext trace edema LE Moves LE well Current Active Problems Problem Status Onset Abscess of left buttock Acute Acute kidney injury superimposed on CKD Acute Acute on chronic respiratory failure with hypoxia and hypercapnia Acute Asbestos pleurisy Acute Cellulitis of left buttock Acute Vital Signs (72 hours) 03/31/18 03/31/18 03/31/18 09:00 09:30 09:44 Temperature 97.4 F L Pulse Rate 75 Respiratory 20 Rate Blood Pressure 137/58 L O2 Sat by Pulse 91 L 97 Oximetry (%) 03/31/18 03/31/18 03/31/18 18:00 20:28 20:30 Temperature 98.1 F 97.4 F L Pulse Rate 87 78 Respiratory 19 20 Rate Blood Pressure 100/57 L 125/78 O2 Sat by Pulse 98 Oximetry (%) 04/01/18 04/01/18 04/01/18 02:00 06:00 09:00 Temperature 97.4 F L 98 F Pulse Rate 75 78 Respiratory 20 20 18 Rate Blood Pressure 110/59 L 117/60 O2 Sat by Pulse 92 L Oximetry (%) 04/01/18 04/01/18 04/01/18 10:00 13:15 18:00 Temperature 98.0 F 97.8 F 97.7 F Pulse Rate 84 87 89 Respiratory 18 20 20 Rate Blood Pressure 139/69 103/67 125/66 O2 Sat by Pulse Oximetry (%) 04/01/18 04/01/18 04/02/18 21:00 22:00 02:00 Temperature 98.1 F 98.0 F Pulse Rate 86 75 Respiratory 20 20 Rate Blood Pressure 128/68 122/75 O2 Sat by Pulse 90 L Oximetry (%) 04/02/18 04/02/18 04/02/18 05:19 07:43 09:00 Temperature 97.4 F L Pulse Rate 74 Respiratory 20 20 Rate Blood Pressure 105/57 L O2 Sat by Pulse 95 97 Oximetry (%) 04/02/18 04/02/18 04/02/18 10:00 12:13 14:29 Temperature 97.8 F 97.5 F L Pulse Rate 84 82 Respiratory 18 18 Rate Blood Pressure 105/63 134/70 O2 Sat by Pulse 95 Oximetry (%) 04/02/18 04/02/18 04/02/18 14:37 21:18 21:20 Temperature 98.1 F Pulse Rate 85 Respiratory 20 Rate Blood Pressure 119/70 O2 Sat by Pulse 96 96 Oximetry (%) 04/03/18 04/03/18 04/03/18 02:17 06:00 07:48 Temperature 98.1 F 97.8 F Pulse Rate 86 67 Respiratory 20 20 Rate Blood Pressure 97/63 132/45 L O2 Sat by Pulse 98 Oximetry (%) Plan Vanco IV as per levels Will be switched to oral Abx IV Lasix continue monitoring Wound care Problem List - Problems (1) Cellulitis of left buttock Code(s): L03.317 - CELLULITIS OF BUTTOCK (2) Acute on chronic systolic (congestive) heart failure Code(s): I50.23 - ACUTE ON CHRONIC SYSTOLIC (CONGESTIVE) HEART FAILURE (3) Atrial fibrillation Code(s): I48.91 - UNSPECIFIED ATRIAL FIBRILLATION Qualifiers: Atrial fibrillation type: chronic Qualified Code(s): I48.2 - Chronic atrial fibrillation (4) DM type 2 (diabetes mellitus, type 2) Code(s): E11.9 - TYPE 2 DIABETES MELLITUS WITHOUT COMPLICATIONS Qualifiers: Chronic kidney disease stage: stage 3 (moderate) (5) Acute respiratory failure with hypercapnia Code(s): J96.02 - ACUTE RESPIRATORY FAILURE WITH HYPERCAPNIA
--- NOTE | 2018-04-03 08:58 | CONS ---
DATE OF CONSULTATION: 03/31/2018 PULMONARY CONSULTATION REFERRING PHYSICIAN: Sunil Moseley MD HISTORY OF PRESENT ILLNESS: The patient is an 87-year-old white male known to me from previous hospitalization. 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 He was admitted to [facility] for a left buttock wound for approximately 10 days. The patient had a fistula repaired three weeks ago at [facility]. This wound was not noted at the time. Apparently, according to the patient's son, the patient went for a followup on the day prior to admission and the nurse at [facility] noticed that the wound might be infected. The patient was then advised to go to the emergency room. The patient was admitted through the ER with the above therapy. He was evaluated by Surgery and the patient undergo an I and D of the left buttock. He was also evaluated by Dr. Starkey for cardiology consultation, who felt that the patient had acute on chronic CHF and started him on IV Lasix. The patient underwent an echocardiogram which revealed mild to moderate reduction in his left ventricular ejection fraction, moderate pulmonary hypertension of 40 to 50 mmHg, mild aortic sclerosis. The patient has a history of tobacco use but quit many years ago. 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 He is retired. There is no past history of DVT or PE in the past. There is no history of recent travel. He does complain of shortness of breath with minimal exertion. He denies any orthopnea. PAST MEDICAL HISTORY: Again, this includes pulmonary hypertension, ASHD status post CABG, COPD on home O2, obstructive sleep apnea on CPAP, diabetes, chronic kidney disease, asbestos pleural disease, mild and recent surgical perianal fistula repair at [facility]. REVIEW OF SYSTEMS: No orthopnea, no PND, no chest pain or palpitations. Positive for dyspnea on exertion. No fevers or chills. No hemoptysis. No abdominal pain. Positive for left buttock pain. CURRENT MEDICATIONS: Prednisone 10 mg daily, Tylenol, piperacillin, vancomycin, Eliquis, Uloric, Toprol, Dulcolax, MiraLAX, Januvia, Atrovent, NovoLog, Levemir, Lasix, Aldactone, Valtrex and Synthroid. PHYSICAL EXAMINATION: General: The patient is an obese male, wide awake and alert, currently in no acute distress. Vital Signs: He is afebrile. Blood pressure is 137/58, respiratory rate 20, mildly dyspneic, O2 saturation is 91% on 3 liters of oxygen. HEENT: Head is normocephalic, atraumatic. Neck: Supple. Heart: Irregular/regular, S1, S2. Chest: Bibasilar crackles. Abdomen: Soft. Bowel sounds are positive. Extremities: There is bilateral lower extremity edema. LABORATORY: WBC is 9.8, hemoglobin 11.5, hematocrit 35, platelet count of 170,000. INR is 1.42. BUN 64, creatinine 2.2. A chest x-ray is pending. IMPRESSION: 1. Left buttock abscess status post perianal fistula repair. 2. Ajxqu-qb-trcaatg hypoxemic respiratory failure. 3. Hnrdk-ag-juwcpeo congestive heart failure. 4. Advanced COPD, O2 dependent. 5. Obstructive sleep apnea on CPAP. 6. Atrial fibrillation. 7. Pulmonary hypertension. 8. Asbestos pleural disease. PLAN: 1. Continue IV Lasix, supplemental O2, inhaled bronchodilators, anticoagulation. 2. CT scan of the chest in the a.m. 3. Daily weights. 4. BiPAP at night. 5. Local wound care as per Surgery. 6. Antibiotics per I.D. LINDA HERNANDEZ M.D. [id number]
--- NOTE | 2018-04-03 09:06 | PN ---
Progress Note, Physician Chief Complaint: weight is down TELE: reviewed, does have bradycardia while sleeping due to JUAN History of Present Illness: Less SOB Edema improved - Current Medication List Current Medications: Active Medications Acetaminophen (Tylenol -) 500 mg PO Q6H PRN PRN Reason: PAIN LEVEL 1 - 3 Last Admin: 04/03/18 02:36 Dose: 500 mg Apixaban (Eliquis -) 5 mg PO BID [facility] Last Admin: 04/02/18 21:25 Dose: 5 mg Atorvastatin Calcium (Lipitor -) 10 mg PO HS [facility] Last Admin: 04/02/18 21:25 Dose: 10 mg Bisacodyl (Dulcolax -) 10 mg PO DAILY [facility] Last Admin: 04/02/18 09:26 Dose: 10 mg Febuxostat (Uloric -) 40 mg PO DAILY [facility] Last Admin: 04/02/18 09:28 Dose: 40 mg Furosemide (Lasix Injection -) 80 mg IVPUSH BIDLASIX [facility] Last Admin: 04/03/18 06:12 Dose: 80 mg Insulin Aspart (Novolog Vial Sliding Scale -) 1 vial SQ [facility]; Protocol Last Admin: 04/03/18 06:08 Dose: Not Given Insulin Detemir (Levemir Vial) 20 units SQ BID@0700,2200 [facility] Last Admin: 04/03/18 06:12 Dose: 20 units Ipratropium [place] (Atrovent 0.02% Nebulizer -) 1 amp NEB RQID [facility] Last Admin: 04/03/18 07:48 Dose: 1 amp Levothyroxine Sodium (Synthroid -) 50 mcg PO DAILY@0700 [facility] Last Admin: 04/03/18 06:15 Dose: 50 mcg Metoprolol Succinate (Toprol Xl -) 100 mg PO BID [facility] Last Admin: 04/02/18 21:25 Dose: 100 mg Oxycodone HCl (Roxicodone -) 5 mg PO Q6H PRN PRN Reason: PAIN LEVEL 1-5 Last Admin: 03/31/18 17:15 Dose: 5 mg Polyethylene Glycol (Miralax (For Daily Use) -) 17 gm PO BID [facility] Last Admin: 04/02/18 21:25 Dose: 17 gm Prednisone (Deltasone -) 10 mg PO DAILY [facility] Last Admin: 04/02/18 09:26 Dose: 10 mg Sitagliptin Phosphate (Januvia -) 25 mg PO DAILY@0700 [facility] Last Admin: 04/03/18 06:12 Dose: 25 mg Spironolactone (Aldactone -) 25 mg PO DAILY [facility] Last Admin: 04/02/18 09:27 Dose: 25 mg Valacyclovir HCl (Valtrex -) 500 mg PO BID [facility] Last Admin: 04/02/18 21:25 Dose: 500 mg - Objective Vital Signs: Vital Signs Temperature 97.8 F 04/03/18 06:00 Pulse Rate 67 04/03/18 06:00 Respiratory Rate 20 04/03/18 06:00 Blood Pressure 132/45 L 04/03/18 06:00 O2 Sat by Pulse Oximetry (%) 98 04/03/18 07:48 Constitutional: Yes: No Distress Cardiovascular: Yes: Pulse Irregular Respiratory: Yes: CTA Bilaterally (no rales or wheezing) Gastrointestinal: Yes: Soft, Abdomen, Obese Edema: Yes Edema: LLE: Trace, RLE: Trace Neurological: Yes: Alert, Oriented Labs: CBC, BMP 04/03/18 05:30 04/03/18 05:30 INR, PTT INR 1.42 (0.83-1.09) H 03/30/18 17:10 Assessment/Plan MP: CAD s/p CABG, 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 Tele thus far rate controlled. 2. IV Lasix: can decrease to daily dosing. Renal fxn stable 3. IV abx as per PMD 4. Cont NOAC
--- NOTE | 2018-04-03 10:28 | PN ---
Progress Note, Physician History of Present Illness: pulmonary drowsy today,-resp distress - Current Medication List Current Medications: Active Medications Acetaminophen (Tylenol -) 500 mg PO Q6H PRN PRN Reason: PAIN LEVEL 1 - 3 Last Admin: 04/03/18 02:36 Dose: 500 mg Apixaban (Eliquis -) 5 mg PO BID [facility] Last Admin: 04/02/18 21:25 Dose: 5 mg Atorvastatin Calcium (Lipitor -) 10 mg PO HS [facility] Last Admin: 04/02/18 21:25 Dose: 10 mg Bisacodyl (Dulcolax -) 10 mg PO DAILY [facility] Last Admin: 04/02/18 09:26 Dose: 10 mg Febuxostat (Uloric -) 40 mg PO DAILY [facility] Last Admin: 04/02/18 09:28 Dose: 40 mg Furosemide (Lasix Injection -) 80 mg IVPUSH BIDLASIX [facility] Last Admin: 04/03/18 06:12 Dose: 80 mg Insulin Aspart (Novolog Vial Sliding Scale -) 1 vial SQ [facility]; Protocol Last Admin: 04/03/18 06:08 Dose: Not Given Insulin Detemir (Levemir Vial) 20 units SQ BID@0700,2200 [facility] Last Admin: 04/03/18 06:12 Dose: 20 units Ipratropium [place] (Atrovent 0.02% Nebulizer -) 1 amp NEB RQID [facility] Last Admin: 04/03/18 07:48 Dose: 1 amp Levothyroxine Sodium (Synthroid -) 50 mcg PO DAILY@0700 [facility] Last Admin: 04/03/18 06:15 Dose: 50 mcg Metoprolol Succinate (Toprol Xl -) 100 mg PO BID [facility] Last Admin: 04/02/18 21:25 Dose: 100 mg Oxycodone HCl (Roxicodone -) 5 mg PO Q6H PRN PRN Reason: PAIN LEVEL 1-5 Last Admin: 03/31/18 17:15 Dose: 5 mg Polyethylene Glycol (Miralax (For Daily Use) -) 17 gm PO BID [facility] Last Admin: 04/02/18 21:25 Dose: 17 gm Prednisone (Deltasone -) 10 mg PO DAILY [facility] Last Admin: 04/02/18 09:26 Dose: 10 mg Sitagliptin Phosphate (Januvia -) 25 mg PO DAILY@0700 [facility] Last Admin: 04/03/18 06:12 Dose: 25 mg Spironolactone (Aldactone -) 25 mg PO DAILY [facility] Last Admin: 04/02/18 09:27 Dose: 25 mg Valacyclovir HCl (Valtrex -) 500 mg PO BID [facility] Last Admin: 04/02/18 21:25 Dose: 500 mg - Objective Vital Signs: Vital Signs Temperature 97.6 F 04/03/18 09:00 Pulse Rate 73 04/03/18 09:00 Respiratory Rate 20 04/03/18 09:00 Blood Pressure 96/53 L 04/03/18 09:00 O2 Sat by Pulse Oximetry (%) 96 04/03/18 09:00 Constitutional: Yes: Well Nourished, Other (drowsy) Eyes: Yes: WNL HENT: Yes: WNL Neck: Yes: WNL Cardiovascular: Yes: Pulse Irregular, S1, S2 Respiratory: Yes: Diminished Extremities: Yes: WNL Edema: No Labs: CBC, BMP 04/03/18 05:30 04/03/18 05:30 INR, PTT INR 1.42 (0.83-1.09) H 03/30/18 17:10 Problem List - Problems (1) Abscess of left buttock Code(s): L02.31 - CUTANEOUS ABSCESS OF BUTTOCK (2) Acute kidney injury superimposed on CKD Code(s): N17.9 - ACUTE KIDNEY FAILURE, UNSPECIFIED; N18.9 - CHRONIC KIDNEY DISEASE, UNSPECIFIED (3) ASHD (arteriosclerotic heart disease) Code(s): I25.10 - ATHSCL HEART DISEASE OF [place] CORONARY ARTERY W/O [facility] PCTRS (4) Acute on chronic systolic (congestive) heart failure Code(s): I50.23 - ACUTE ON CHRONIC SYSTOLIC (CONGESTIVE) HEART FAILURE (5) Atrial fibrillation Code(s): I48.91 - UNSPECIFIED ATRIAL FIBRILLATION Qualifiers: Atrial fibrillation type: chronic Qualified Code(s): I48.2 - Chronic atrial fibrillation (6) CAD (coronary artery disease) Code(s): I25.10 - ATHSCL HEART DISEASE OF [place] CORONARY ARTERY W/O ANG PCTRS Qualifiers: Coronary Disease-Associated Artery/Lesion type: bypass graft, autologous artery Associated angina: without angina Qualified Code(s): I25.810 - Atherosclerosis of coronary artery bypass graft(s) without angina pectoris (7) DM type 2 (diabetes mellitus, type 2) Code(s): E11.9 - TYPE 2 DIABETES MELLITUS WITHOUT COMPLICATIONS Qualifiers: Chronic kidney disease stage: stage 3 (moderate) (8) HTN (hypertension) Code(s): I10 - ESSENTIAL (PRIMARY) HYPERTENSION (9) Pulmonary hypertension Code(s): I27.20 - PULMONARY HYPERTENSION, UNSPECIFIED (10) S/P CABG (coronary artery bypass graft) Code(s): Z95.1 - PRESENCE OF AORTOCORONARY BYPASS GRAFT (11) Sleep apnea Code(s): G47.30 - SLEEP APNEA, UNSPECIFIED (12) Acute on chronic respiratory failure with hypoxia and hypercapnia Code(s): J96.21 - ACUTE AND CHRONIC RESPIRATORY FAILURE WITH HYPOXIA; J96.22 - ACUTE AND CHRONIC RESPIRATORY FAILURE WITH HYPERCAPNIA (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 Assessment/Plan IMP ACUTE ON CHRONIC HYPOXEMIC/HYPERCAPNEIC RESPIRATORY FAILURE ACUTE ON CHRONIC CHF COPD O2 DEPENDENT PULMONARY HTN DM JUAN AFIB LEFT BUTTOCK ABSCESS HTN OBESITY ACUTE ON CHRONIC KIDNEY DISEASE PLAN IV LASIX PER CARDIOLOGY O2 ABX PER ID INHALED BRONCHODILATORS DAILY WT STRICT I+OS WOUND CARE PER SURGERY ABG AC MONITOR LYTES,RENAL FUNCTION BIPAP AT NIGHT AND PRN DR HERNANDEZ Problem List - Problems (1) Abscess of left buttock Code(s): L02.31 - CUTANEOUS ABSCESS OF BUTTOCK (2) Acute kidney injury superimposed on CKD Code(s): N17.9 - ACUTE KIDNEY FAILURE, UNSPECIFIED; N18.9 - CHRONIC KIDNEY DISEASE, UNSPECIFIED (3) ASHD (arteriosclerotic heart disease) Code(s): I25.10 - ATHSCL HEART DISEASE OF [place] CORONARY ARTERY W/O ANG PCTRS (4) Acute on chronic systolic (congestive) heart failure Code(s): I50.23 - ACUTE ON CHRONIC SYSTOLIC (CONGESTIVE) HEART FAILURE (5) Atrial fibrillation Code(s): I48.91 - UNSPECIFIED ATRIAL FIBRILLATION Qualifiers: Atrial fibrillation type: chronic Qualified Code(s): I48.2 - Chronic atrial fibrillation (6) CAD (coronary artery disease) Code(s): I25.10 - ATHSCL HEART DISEASE OF [place] CORONARY ARTERY W/O ANG PCTRS Qualifiers: Coronary Disease-Associated Artery/Lesion type: bypass graft, autologous artery Associated angina: without angina Qualified Code(s): I25.810 - Atherosclerosis of coronary artery bypass graft(s) without angina pectoris (7) DM type 2 (diabetes mellitus, type 2) Code(s): E11.9 - TYPE 2 DIABETES MELLITUS WITHOUT COMPLICATIONS Qualifiers: Chronic kidney disease stage: stage 3 (moderate) (8) HTN (hypertension) Code(s): I10 - ESSENTIAL (PRIMARY) HYPERTENSION (9) Pulmonary hypertension Code(s): I27.20 - PULMONARY HYPERTENSION, UNSPECIFIED (10) S/P CABG (coronary artery bypass graft) Code(s): Z95.1 - PRESENCE OF AORTOCORONARY BYPASS GRAFT (11) Sleep apnea Code(s): G47.30 - SLEEP APNEA, UNSPECIFIED (12) Acute on chronic respiratory failure with hypoxia and hypercapnia Code(s): J96.21 - ACUTE AND CHRONIC RESPIRATORY FAILURE WITH HYPOXIA; J96.22 - ACUTE AND CHRONIC RESPIRATORY FAILURE WITH HYPERCAPNIA (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
[2018-04-03] MEDS ORDERED: PT OWN MED DRAWER 7, Y5N ONE (10:30)
[2018-04-03 10:41] LABS: ARTERIAL BLD GAS O2 SATURATION 92.5 % (90-98.9); ARTERIAL BLOOD GAS BASE EXCESS 8.9 meq/l (-2-2); ARTERIAL BLOOD GAS PCO2 60.1 mmHg (35-45); ARTERIAL BLOOD GAS PO2 68.6 mmHg (68-100); ARTERIAL BLOOD GAS pH 7.39 (7.35-7.45)
[2018-04-03] MEDS: FEBUXOSTAT 40 MG TAB PO SCH (10:51)
[2018-04-03] MEDS: valACYclovir HCL 500 MG TABLET (FP) PO SCH ×2 (10:51→21:41)
[2018-04-03] MEDS: APIXABAN 5 MG TABLET PO SCH ×2 (10:52→21:41)
[2018-04-03] MEDS: BISACODYL 5 MG TABLET.DR (FP) PO SCH (10:52)
[2018-04-03] MEDS: SPIRONOLACTONE 25 MG TABLET (FP) PO SCH (10:52)
[2018-04-03] MEDS: predniSONE 10 MG TABLET (UD) PO SCH (10:52)
--- NOTE | 2018-04-03 12:00 | CONSULT ---
Consult - text type - Consultation Consultation Note: Renal Consult for KOFI vs. CKD This is a 87 year old gentleman with hx of CKD (baseline Cr unclear was 1.4 to 2.3 in 2018), CAD s/p CABG, CHF with EF 35-40%, DM, JUAN, Pulmonary hypertension, recent perianal fistula repair who presented with gluteal infection and CHF and found to have Cr of 2.6. Pt son at the bedside and provided history. Has known about CKD but does not know if he follows with a control and recovery combat rescue. Denies any NSAID use or recent contrast exposure. No flank pain, dysuria, hematuria or urinary retention. Denies hx of BPH. No flank pain. On IV lasix for CHF. Denies any CALDWELL, confusion, lethargy or weakness. PMhx: as asbove Allergies: NKDA Family Hx: NC Social Hx: No T/A/D ROS: as per HPI Home Medications Medication Instructions Recorded Pravastatin Sodium [Pravachol -] 40 mg PO DAILY 10/12/14 Sitagliptin Phosphate [Januvia -] 25 mg PO DAILY@0700 #90 tab 10/14/14 Ipratropium 0.02% Nebulizer 0.5 mg IH PRN 03/21/17 [Atrovent 0.02% Nebulizer -] Spironolactone [Aldactone -] 25 mg PO DAILY #30 tablet 03/31/17 Aspirin 81 mg PO DAILY 04/10/17 Insulin Glargine,Hum.rec.anlog 60 unit SQ DAILY 04/10/17 [Lantus] Febuxostat [Uloric] 40 mg PO DAILY 02/20/18 Furosemide [Lasix -] 40 mg PO HS 02/20/18 Levothyroxine [Synthroid -] 0.05 mg PO DAILY 02/20/18 Linaclotide [Linzess] 290 mcg PO DAILY 02/20/18 Metoprolol Succinate [Toprol Xl] 50 mg PO BID 02/20/18 Apixaban [Eliquis -] 2.5 mg PO BID 03/30/18 Vital Signs Temperature 97.6 F 04/03/18 09:00 Pulse Rate 73 04/03/18 09:00 Respiratory Rate 20 04/03/18 09:00 Blood Pressure 96/53 L 04/03/18 09:00 O2 Sat by Pulse Oximetry (%) 96 04/03/18 09:00 Intake & Output 03/31/18 04/01/18 04/02/18 04/03/18 23:59 23:59 23:59 23:59 Intake Total 830 770 540 200 Output Total 1450 300 150 300 Balance -620 470 390 -100 Weight 111.584 kg 105.778 kg 106.594 kg 106.776 kg NAD awake and alert neck supple, no JVD RRR, no M/R + rales at lung bases soft NT, mild distension, obese no bladder distension + edema in LE, no cyanosis or clubbing no focal neurological defects CBC, BMP 04/03/18 05:30 04/03/18 05:30 Laboratory Tests 03/30/18 04/03/18 04/03/18 17:10 05:30 05:30 MCV 89.8 Calcium 8.6 Magnesium 2.6 H Albumin 3.2 L Urine Protein Negative Urine Blood Negative Current Medications Acetaminophen (Tylenol -) 500 mg PO Q6H PRN PRN Reason: PAIN LEVEL 1 - 3 Last Admin: 04/03/18 02:36 Dose: 500 mg Apixaban (Eliquis -) 5 mg PO BID [facility] Last Admin: 04/03/18 10:52 Dose: 5 mg Atorvastatin Calcium (Lipitor -) 10 mg PO HS [facility] Last Admin: 04/02/18 21:25 Dose: 10 mg Bisacodyl (Dulcolax -) 10 mg PO DAILY [facility] Last Admin: 04/03/18 10:52 Dose: 10 mg Febuxostat (Uloric -) 40 mg PO DAILY [facility] Last Admin: 04/03/18 10:51 Dose: 40 mg Furosemide (Lasix Injection -) 80 mg IVPUSH BIDLASIX [facility] Last Admin: 04/03/18 06:12 Dose: 80 mg Insulin Aspart (Novolog Vial Sliding Scale -) 1 vial SQ ACHS [facility]; Protocol Last Admin: 04/03/18 06:08 Dose: Not Given Insulin Detemir (Levemir Vial) 20 units SQ BID@0700,2200 [facility] Last Admin: 04/03/18 06:12 Dose: 20 units Ipratropium [place] (Atrovent 0.02% Nebulizer -) 1 amp NEB RQID [facility] Last Admin: 04/03/18 11:10 Dose: 1 amp Levothyroxine Sodium (Synthroid -) 50 mcg PO DAILY@0700 [facility] Last Admin: 04/03/18 06:15 Dose: 50 mcg Metoprolol Succinate (Toprol Xl -) 100 mg PO BID [facility] Last Admin: 04/03/18 10:52 Dose: 100 mg Oxycodone HCl (Roxicodone -) 5 mg PO Q6H PRN PRN Reason: PAIN LEVEL 1-5 Last Admin: 03/31/18 17:15 Dose: 5 mg Polyethylene Glycol (Miralax (For Daily Use) -) 17 gm PO BID [facility] Last Admin: 04/02/18 21:25 Dose: 17 gm Prednisone (Deltasone -) 10 mg PO DAILY [facility] Last Admin: 04/03/18 10:52 Dose: 10 mg Sitagliptin Phosphate (Januvia -) 25 mg PO DAILY@0700 [facility] Last Admin: 04/03/18 06:12 Dose: 25 mg Spironolactone (Aldactone -) 25 mg PO DAILY [facility] Last Admin: 04/03/18 10:52 Dose: 25 mg Valacyclovir HCl (Valtrex -) 500 mg PO BID [facility] Last Admin: 04/03/18 10:51 Dose: 500 mg 87 year old gentleman with hx of CKD (baseline Cr unclear was 1.4 to 2.3 in 2018), CAD s/p CABG, CHF with EF 35-40%, DM, JUAN, Pulmonary hypertension , recent perianal fistula repair who presented with gluteal infection and CHF and found to have Cr of 2.6. #KOFI vs. CKD (UA w/o protein or blood) #Acute CHF exacerbation #Gluteal infection/cellulitis with recent perianal fistula repair #DM #CAD #Respiratory acidosis with metabolic compensation Will need to obtain outpatient records and US if done given chf and fluid overload agree wit continued diuresis with Lasix + aldactone would avoid addition of BETTY or ARB given low eGFR check urine for FeUrea, UPCR Renal US if no recent outpatient one done Trend renal function and electrolytes daily continue Abx for cellulitis as per ID Cardiology following Trend H/H, check iron studies Thank you will follow Thank you Kennedy King DO
[2018-04-03] MEDS: POLYETHYLENE GLYCOL 3350 119 GM BTL PO SCH ×2 (14:29→21:52)
--- NOTE | 2018-04-03 15:25 | PN ---
Progress Note (short form) - Note Progress Note: less buttock pain Vital Signs Period Temp Pulse Resp BP Sys/Junior Pulse Ox Last 24 Hr 97.6 F-98.1 F 67-86 18-20 96-132/45-70 96-98 lungs crackles at bases cor-rrr abd soft,nt buttock ulcer is clean no drainage, less induration, less painful CBC, BMP 04/03/18 05:30 04/03/18 05:30 Microbiology 03/31/18 16:50 Abscess Gram Stain - Final 03/31/18 16:50 Abscess Wound Culture - Final S Aureus 03/30/18 18:00 Blood - Peripheral Venous Blood Culture - Preliminary NO GROWTH OBTAINED AFTER 72 HOURS, INCUBATION TO CONTINUE FOR 2 DAYS. 03/30/18 18:00 Blood - Peripheral Venous Blood Culture - Preliminary NO GROWTH OBTAINED AFTER 72 HOURS, INCUBATION TO CONTINUE FOR 2 DAYS. Laboratory Tests 04/03/18 05:30 Random Vancomycin 17.9 L Current Medications Acetaminophen (Tylenol -) 500 mg PO Q6H PRN PRN Reason: PAIN LEVEL 1 - 3 Last Admin: 04/03/18 14:41 Dose: 500 mg Apixaban (Eliquis -) 5 mg PO BID [facility] Last Admin: 04/03/18 10:52 Dose: 5 mg Atorvastatin Calcium (Lipitor -) 10 mg PO HS [facility] Last Admin: 04/02/18 21:25 Dose: 10 mg Bisacodyl (Dulcolax -) 10 mg PO DAILY [facility] Last Admin: 04/03/18 10:52 Dose: 10 mg Febuxostat (Uloric -) 40 mg PO DAILY [facility] Last Admin: 04/03/18 10:51 Dose: 40 mg Furosemide (Lasix Injection -) 80 mg IVPUSH BIDLASIX [facility] Last Admin: 04/03/18 14:28 Dose: 80 mg Insulin Aspart (Novolog Vial Sliding Scale -) 1 vial SQ ACHS [facility]; Protocol Last Admin: 04/03/18 12:34 Dose: Not Given Insulin Detemir (Levemir Vial) 20 units SQ BID@0700,2200 [facility] Last Admin: 04/03/18 06:12 Dose: 20 units Ipratropium [place] (Atrovent 0.02% Nebulizer -) 1 amp NEB RQID [facility] Last Admin: 04/03/18 11:10 Dose: 1 amp Levothyroxine Sodium (Synthroid -) 50 mcg PO DAILY@0700 [facility] Last Admin: 04/03/18 06:15 Dose: 50 mcg Metoprolol Succinate (Toprol Xl -) 100 mg PO BID [facility] Last Admin: 04/03/18 10:52 Dose: 100 mg Oxycodone HCl (Roxicodone -) 5 mg PO Q6H PRN PRN Reason: PAIN LEVEL 1-5 Last Admin: 03/31/18 17:15 Dose: 5 mg Polyethylene Glycol (Miralax (For Daily Use) -) 17 gm PO BID [facility] Last Admin: 04/03/18 14:29 Dose: Not Given Prednisone (Deltasone -) 10 mg PO DAILY [facility] Last Admin: 04/03/18 10:52 Dose: 10 mg Sitagliptin Phosphate (Januvia -) 25 mg PO DAILY@0700 [facility] Last Admin: 04/03/18 06:12 Dose: 25 mg Spironolactone (Aldactone -) 25 mg PO DAILY [facility] Last Admin: 04/03/18 10:52 Dose: 25 mg Valacyclovir HCl (Valtrex -) 500 mg PO BID [facility] Last Admin: 04/03/18 10:51 Dose: 500 mg a/p MRSA buttock abscess-switch to po clindamycin in am for 5 days add probiotics contact isolation chf chandra/ckd- please call back if needed d/w Dr Moseley Problem List - Problems (1) Abscess of left buttock Code(s): L02.31 - CUTANEOUS ABSCESS OF BUTTOCK (2) Acute kidney injury superimposed on CKD Code(s): N17.9 - ACUTE KIDNEY FAILURE, UNSPECIFIED; N18.9 - CHRONIC KIDNEY DISEASE, UNSPECIFIED (3) Atrial fibrillation Code(s): I48.91 - UNSPECIFIED ATRIAL FIBRILLATION Qualifiers: Atrial fibrillation type: chronic Qualified Code(s): I48.2 - Chronic atrial fibrillation
--- NOTE | 2018-04-03 16:48 | PN ---
Progress Note (short form) - Note Progress Note: POD 3, s/p bedside I&D L buttock abscess Pt seen and examined. States he is feeling much better, has minimal pain with dressing changes. No other complaints. Vital Signs Temp 97.6 F 04/03/18 09:00 Pulse 73 04/03/18 09:00 Resp 20 04/03/18 09:00 BP 96/53 L 04/03/18 09:00 Pulse Ox 96 04/03/18 09:00 Intake & Output 04/02/18 04/03/18 04/03/18 23:59 11:59 23:59 Intake Total 270 200 40 Output Total 300 Balance 270 -100 40 Weight 235 lb 6.4 oz Intake: IV 40 sl 40 Oral 270 200 Output: Urine 300 Void 300 Other: Voiding Method Urinal Toilet # Unmeasured Voids Void 4 2 Bowel Movement Yes Yes: loose bm # Bowel Movements 3 1 2 Weight Measurement Method Standing Scale CBC, BMP 04/03/18 05:30 04/03/18 05:30 Gen: awake, alert, nad, sitting up in chair Buttock: L buttock wound with minimal fibrinous exudate, minimal surrounding erythema, induration significantly improved. Repacked with Iodoform, dressing replaced. Some ttp with packing, improved from prior. 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 Culture + for MRSA -Continue daily packing/dressing changes -Abx per ID -Remainder of care per primary team -Pt should follow up with Dr Donis in the wound care clinic upon discharge above d/w attending, Dr Donis
[2018-04-03] MEDS: LACTOBACILLUS ACIDOPHILUS 1 TABLET PO SCH (21:41)
[2018-04-03] MEDS: ATORVASTATIN CA 10 MG TABLET (FP) PO SCH (21:41)
[2018-04-04] MEDS: CLINDAMYCIN HCL 150 MG CAPSULE (FP) PO SCH ×3 (06:46→21:38)
[2018-04-04] MEDS: INSULIN (LEVEMIR) 100 UNITS/ML UNITS SQ SCH ×2 (06:46→21:40)
[2018-04-04] MEDS: sitaGLIPtin PHOSPHATE 25 MG TABLET (FP) PO SCH (06:46)
[2018-04-04] MEDS: FUROSEMIDE 40 MG/4 ML INJECTABLE VIAL IVPUSH SCH (06:46)
[2018-04-04] MEDS: LEVOTHYROXINE NA 50 MCG TABLET (FP) PO SCH (06:46)
[2018-04-04] MEDS: INSULIN SLIDING SCALE (NOVOLOG) 1 VIAL SQ SCH ×4 (06:47→21:40)
[2018-04-04] MEDS: IPRATROPIUM BR 0.02% 0.5 MG/2.5 ML VIAL.NEB. NEB SCH ×4 (07:32→20:45)
--- NOTE | 2018-04-04 09:07 | PN ---
Progress Note, Physician Chief Complaint: comfortable, ambulating History of Present Illness: TELE: Rate controlled AF - Current Medication List Current Medications: Active Medications Acetaminophen (Tylenol -) 500 mg PO Q6H PRN PRN Reason: PAIN LEVEL 1 - 3 Last Admin: 04/03/18 14:41 Dose: 500 mg Apixaban (Eliquis -) 5 mg PO BID [facility] Last Admin: 04/03/18 21:41 Dose: 5 mg Atorvastatin Calcium (Lipitor -) 10 mg PO HS [facility] Last Admin: 04/03/18 21:41 Dose: 10 mg Bisacodyl (Dulcolax -) 10 mg PO DAILY [facility] Last Admin: 04/03/18 10:52 Dose: 10 mg Clindamycin HCl (Cleocin -) 300 mg PO TID [facility] Last Admin: 04/04/18 06:46 Dose: 300 mg Febuxostat (Uloric -) 40 mg PO DAILY [facility] Last Admin: 04/03/18 10:51 Dose: 40 mg Furosemide (Lasix Injection -) 80 mg IVPUSH BIDLASIX [facility] Last Admin: 04/04/18 06:46 Dose: 80 mg Insulin Aspart (Novolog Vial Sliding Scale -) 1 vial SQ [facility]; Protocol Last Admin: 04/04/18 06:47 Dose: Not Given Insulin Detemir (Levemir Vial) 20 units SQ BID@0700,2200 [facility] Last Admin: 04/04/18 06:46 Dose: 20 units Ipratropium [place] (Atrovent 0.02% Nebulizer -) 1 amp NEB RQID [facility] Last Admin: 04/04/18 07:32 Dose: 1 amp Lactobacillus Acidophilus (Bacid -) 1 tab PO BID [facility] Last Admin: 04/03/18 21:41 Dose: 1 tab Levothyroxine Sodium (Synthroid -) 50 mcg PO DAILY@0700 [facility] Last Admin: 04/04/18 06:46 Dose: 50 mcg Metoprolol Succinate (Toprol Xl -) 100 mg PO BID [facility] Last Admin: 04/03/18 21:41 Dose: 100 mg Oxycodone HCl (Roxicodone -) 5 mg PO Q6H PRN PRN Reason: PAIN LEVEL 1-5 Last Admin: 03/31/18 17:15 Dose: 5 mg Polyethylene Glycol (Miralax (For Daily Use) -) 17 gm PO BID [facility] Last Admin: 04/03/18 21:52 Dose: 17 gm Prednisone (Deltasone -) 10 mg PO DAILY [facility] Last Admin: 04/03/18 10:52 Dose: 10 mg Sitagliptin Phosphate (Januvia -) 25 mg PO DAILY@0700 [facility] Last Admin: 04/04/18 06:46 Dose: 25 mg Spironolactone (Aldactone -) 25 mg PO DAILY [facility] Last Admin: 04/03/18 10:52 Dose: 25 mg Valacyclovir HCl (Valtrex -) 500 mg PO BID [facility] Last Admin: 04/03/18 21:41 Dose: 500 mg - Objective Vital Signs: Vital Signs Temperature 97.5 F L 04/04/18 06:00 Pulse Rate 69 04/04/18 06:00 Respiratory Rate 20 04/04/18 06:00 Blood Pressure 119/71 04/04/18 06:00 O2 Sat by Pulse Oximetry (%) 95 04/03/18 21:00 Constitutional: Yes: No Distress Cardiovascular: Yes: Pulse Irregular Respiratory: Yes: CTA Bilaterally, Rhonchi Gastrointestinal: Yes: Soft Edema: Yes Edema: LLE: 1+, RLE: 1+ Neurological: Yes: Alert, Oriented Labs: CBC, BMP 04/03/18 05:30 04/03/18 05:30 INR, PTT INR 1.42 (0.83-1.09) H 03/30/18 17:10 Microbiology 03/31/18 16:50 Abscess Gram Stain - Final 03/31/18 16:50 Abscess Wound Culture - Final S Aureus 03/30/18 18:00 Blood - Peripheral Venous Blood Culture - Preliminary NO GROWTH OBTAINED AFTER 96 HOURS, INCUBATION TO CONTINUE FOR 1 DAYS. 03/30/18 18:00 Blood - Peripheral Venous Blood Culture - Preliminary NO GROWTH OBTAINED AFTER 96 HOURS, INCUBATION TO CONTINUE FOR 1 DAYS. 03/30/18 18:00 Blood - Peripheral Venous Blood Culture - Preliminary NO GROWTH OBTAINED AFTER 72 HOURS, INCUBATION TO CONTINUE FOR 2 DAYS. 03/30/18 18:00 Blood - Peripheral Venous Blood Culture - Preliminary NO GROWTH OBTAINED AFTER 72 HOURS, INCUBATION TO CONTINUE FOR 2 DAYS. 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 Tele thus far rate controlled. 2. Decrease IV Lasix to daily. 3. IV abx as per PMD 4. Cont NOAC
[2018-04-04] MEDS ORDERED: FUROSEMIDE 100 MG/10 ML INJECTABLE VIAL IVPB SCH (10:00)
[2018-04-04] MEDS: predniSONE 10 MG TABLET (UD) PO SCH (10:51)
[2018-04-04] MEDS: SPIRONOLACTONE 25 MG TABLET (FP) PO SCH (10:51)
[2018-04-04] MEDS: APIXABAN 5 MG TABLET PO SCH ×2 (10:51→21:38)
[2018-04-04] MEDS: LACTOBACILLUS ACIDOPHILUS 1 TABLET PO SCH ×2 (10:51→21:38)
[2018-04-04] MEDS: FEBUXOSTAT 40 MG TAB PO SCH (11:18)
[2018-04-04] MEDS: valACYclovir HCL 500 MG TABLET (FP) PO SCH ×2 (11:19→21:43)
[2018-04-04] MEDS ORDERED: predniSONE 5 MG TABLET (UD) PO SCH (11:39)
[2018-04-04] MEDS: BISACODYL 5 MG TABLET.DR (FP) PO SCH (11:41)
[2018-04-04] MEDS: POLYETHYLENE GLYCOL 3350 119 GM BTL PO SCH ×2 (11:41→21:44)
--- NOTE | 2018-04-04 11:44 | PN ---
Progress Note, Physician Chief Complaint: C/o SOB, PEARSON, pain in the wound. History of Present Illness: Persistent 6.7cm left basilar atelectasis/consolidation. CABG ASHD. DM type on Levemir/Januvia.. CRI/ckd 4. 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 Previous Thoracentesis in the past-neg for malignancy. JUAN-at nights using CPAP. Chronic A.Fib. CHF. Gout. Gouty arthritis. Last month rectal surgery for abscess, fistula at [facility]. HSV skin. previously. - Current Medication List Current Medications: Active Medications Acetaminophen (Tylenol -) 500 mg PO Q6H PRN PRN Reason: PAIN LEVEL 1 - 3 Last Admin: 04/03/18 14:41 Dose: 500 mg Apixaban (Eliquis -) 5 mg PO BID [facility] Last Admin: 04/04/18 10:51 Dose: 5 mg Atorvastatin Calcium (Lipitor -) 10 mg PO HS [facility] Last Admin: 04/03/18 21:41 Dose: 10 mg Bisacodyl (Dulcolax -) 10 mg PO DAILY [facility] Last Admin: 04/03/18 10:52 Dose: 10 mg Clindamycin HCl (Cleocin -) 300 mg PO TID [facility] Last Admin: 04/04/18 06:46 Dose: 300 mg Febuxostat (Uloric -) 40 mg PO DAILY [facility] Last Admin: 04/04/18 11:18 Dose: 40 mg Furosemide (Lasix Injection -) 80 mg IVPB DAILY [facility] Insulin Aspart (Novolog Vial Sliding Scale -) 1 vial SQ [facility]; Protocol Last Admin: 04/04/18 06:47 Dose: Not Given Insulin Detemir (Levemir Vial) 20 units SQ BID@0700,2200 [facility] Last Admin: 04/04/18 06:46 Dose: 20 units Ipratropium [place] (Atrovent 0.02% Nebulizer -) 1 amp NEB RQID [facility] Last Admin: 04/04/18 11:28 Dose: 1 amp Lactobacillus Acidophilus (Bacid -) 1 tab PO BID [facility] Last Admin: 04/04/18 10:51 Dose: 1 tab Levothyroxine Sodium (Synthroid -) 50 mcg PO DAILY@0700 [facility] Last Admin: 04/04/18 06:46 Dose: 50 mcg Metoprolol Succinate (Toprol Xl -) 100 mg PO BID [facility] Last Admin: 04/04/18 10:51 Dose: 100 mg Oxycodone HCl (Roxicodone -) 5 mg PO Q6H PRN PRN Reason: PAIN LEVEL 1-5 Last Admin: 03/31/18 17:15 Dose: 5 mg Polyethylene Glycol (Miralax (For Daily Use) -) 17 gm PO BID [facility] Last Admin: 04/03/18 21:52 Dose: 17 gm Prednisone (Deltasone -) 5 mg PO DAILY [facility] Sitagliptin Phosphate (Januvia -) 25 mg PO DAILY@0700 [facility] Last Admin: 04/04/18 06:46 Dose: 25 mg Spironolactone (Aldactone -) 25 mg PO DAILY [facility] Last Admin: 04/04/18 10:51 Dose: 25 mg Valacyclovir HCl (Valtrex -) 500 mg PO BID [facility] Last Admin: 04/04/18 11:19 Dose: 500 mg - Objective Vital Signs: Vital Signs Temperature 97.5 F L 04/04/18 06:00 Pulse Rate 69 04/04/18 06:00 Respiratory Rate 20 04/04/18 06:00 Blood Pressure 119/71 04/04/18 06:00 O2 Sat by Pulse Oximetry (%) 95 04/03/18 21:00 Constitutional: Yes: Anxious, Mild Distress Eyes: Yes: Conjunctiva Clear, EOM Intact HENT: Yes: Atraumatic, Normocephalic. No: Drooling, Epistaxis Neck: Yes: Supple, Trachea Midline. No: Decreased ROM Cardiovascular: Yes: Pulse Irregular, S1, S2 Respiratory: Yes: Cough, Diminished (B/B), On Nasal O2, SOB, SOB on Exertion Gastrointestinal: Yes: Soft, Abdomen, Obese. No: Ascites ...Rectal Exam: Yes: Deferred Genitourinary: No: Anuria, Bladder Distention Breast(s): Yes: WNL Extremities: No: Calf Tenderness, Cold, Cyanosis Edema: LLE: 1+, RLE: 1+ Peripheral Pulses WNL: No Wound/Incision: Yes: Other (packed with gauze.) Neurological: Yes: Alert, Oriented, Tremors. No: Aphasia, Dysarthria, Seizure Psychiatric: Yes: WNL, Alert, Oriented. No: Agitated, Suicidal Ideation Labs: CBC, BMP 04/03/18 05:30 04/03/18 05:30 INR, PTT INR 1.42 (0.83-1.09) H 03/30/18 17:10 Problem List - Problems (1) Cellulitis of left buttock Assessment/Plan: Cellulitis possible abscess in diabetic pt S/p I@D Packed with gauze Wound culture MRSA, S Clinda Now on Clinda Code(s): L03.317 - CELLULITIS OF BUTTOCK (2) Acute on chronic systolic (congestive) heart failure Assessment/Plan: Previously EF within 35-40 and diastolic dysfunction Continue Lasix IV, telemetry Follow labs Observe for gout attack Code(s): I50.23 - ACUTE ON CHRONIC SYSTOLIC (CONGESTIVE) HEART FAILURE (3) Atrial fibrillation Assessment/Plan: Continue Eliquis Metoprolol Code(s): I48.91 - UNSPECIFIED ATRIAL FIBRILLATION Qualifiers: Atrial fibrillation type: chronic Qualified Code(s): I48.2 - Chronic atrial fibrillation (4) DM type 2 (diabetes mellitus, type 2) Assessment/Plan: Levemir BID BGM with short acting Insulin Code(s): E11.9 - TYPE 2 DIABETES MELLITUS WITHOUT COMPLICATIONS Qualifiers: Chronic kidney disease stage: stage 3 (moderate) (5) Acute respiratory failure with hypercapnia Assessment/Plan: Bipap mask, pulmonary consult Prednisone 10 mg QD Nebs Atrovent Code(s): J96.02 - ACUTE RESPIRATORY FAILURE WITH HYPERCAPNIA
--- NOTE | 2018-04-04 12:29 | PN ---
Progress Note, Physician History of Present Illness: pulmonary alert,no distress,c/o buttock pian,less sob - Current Medication List Current Medications: Active Medications Acetaminophen (Tylenol -) 500 mg PO Q6H PRN PRN Reason: PAIN LEVEL 1 - 3 Last Admin: 04/03/18 14:41 Dose: 500 mg Apixaban (Eliquis -) 5 mg PO BID REPLACED BY [facility] Last Admin: 04/04/18 10:51 Dose: 5 mg Atorvastatin Calcium (Lipitor -) 10 mg PO HS REPLACED BY [facility] Last Admin: 04/03/18 21:41 Dose: 10 mg Bisacodyl (Dulcolax -) 10 mg PO DAILY REPLACED BY [facility] Last Admin: 04/04/18 11:41 Dose: Not Given Clindamycin HCl (Cleocin -) 300 mg PO TID REPLACED BY [facility] Last Admin: 04/04/18 06:46 Dose: 300 mg Febuxostat (Uloric -) 40 mg PO DAILY REPLACED BY [facility] Last Admin: 04/04/18 11:18 Dose: 40 mg Furosemide (Lasix Injection -) 80 mg IVPB DAILY REPLACED BY [facility] Insulin Aspart (Novolog Vial Sliding Scale -) [facility]; Protocol Last Admin: 04/04/18 11:41 Dose: 2 unit Insulin Detemir (Levemir Vial) 20 units SQ BID@0700,2200 REPLACED BY [facility] Last Admin: 04/04/18 06:46 Dose: 20 units Ipratropium [place] (Atrovent 0.02% Nebulizer -) 1 amp NEB RQID REPLACED BY [facility] Last Admin: 04/04/18 11:28 Dose: 1 amp Lactobacillus Acidophilus (Bacid -) 1 tab PO BID REPLACED BY [facility] Last Admin: 04/04/18 10:51 Dose: 1 tab Levothyroxine Sodium (Synthroid -) 50 mcg PO DAILY@0700 REPLACED BY [facility] Last Admin: 04/04/18 06:46 Dose: 50 mcg Metoprolol Succinate (Toprol Xl -) 100 mg PO BID REPLACED BY [facility] Last Admin: 04/04/18 10:51 Dose: 100 mg Oxycodone HCl (Roxicodone -) 5 mg PO Q6H PRN PRN Reason: PAIN LEVEL 1-5 Last Admin: 03/31/18 17:15 Dose: 5 mg Polyethylene Glycol (Miralax (For Daily Use) -) 17 gm PO BID REPLACED BY [facility] Last Admin: 04/04/18 11:41 Dose: Not Given Prednisone (Deltasone -) 5 mg PO DAILY REPLACED BY [facility] Sitagliptin Phosphate (Januvia -) 25 mg PO DAILY@0700 REPLACED BY [facility] Last Admin: 04/04/18 06:46 Dose: 25 mg Spironolactone (Aldactone -) 25 mg PO DAILY REPLACED BY [facility] Last Admin: 04/04/18 10:51 Dose: 25 mg Valacyclovir HCl (Valtrex -) 500 mg PO BID REPLACED BY [facility] Last Admin: 04/04/18 11:19 Dose: 500 mg - Objective Vital Signs: Vital Signs Temperature 97.5 F L 04/04/18 06:00 Pulse Rate 69 04/04/18 06:00 Respiratory Rate 20 04/04/18 09:00 Blood Pressure 119/71 04/04/18 06:00 O2 Sat by Pulse Oximetry (%) 95 04/04/18 09:00 Constitutional: Yes: Well Nourished, Calm Eyes: Yes: WNL HENT: Yes: WNL Neck: Yes: WNL Cardiovascular: Yes: Pulse Irregular, S1, S2 Respiratory: Yes: Rales (few bibasilar crackles) Gastrointestinal: Yes: Normal Bowel Sounds, Soft Extremities: Yes: WNL Edema: No Problem List - Problems (1) Abscess of left buttock Code(s): L02.31 - CUTANEOUS ABSCESS OF BUTTOCK (2) Acute kidney injury superimposed on CKD Code(s): N17.9 - ACUTE KIDNEY FAILURE, UNSPECIFIED; N18.9 - CHRONIC KIDNEY DISEASE, UNSPECIFIED (3) ASHD (arteriosclerotic heart disease) Code(s): I25.10 - ATHSCL HEART DISEASE OF [place] CORONARY ARTERY W/O [facility] PCTRS (4) Acute on chronic systolic (congestive) heart failure Code(s): I50.23 - ACUTE ON CHRONIC SYSTOLIC (CONGESTIVE) HEART FAILURE (5) Atrial fibrillation Code(s): I48.91 - UNSPECIFIED ATRIAL FIBRILLATION Qualifiers: Atrial fibrillation type: chronic Qualified Code(s): I48.2 - Chronic atrial fibrillation (6) CAD (coronary artery disease) Code(s): I25.10 - ATHSCL HEART DISEASE OF [place] CORONARY ARTERY W/O [facility] PCTRS Qualifiers: Coronary Disease-Associated Artery/Lesion type: bypass graft, autologous artery Associated angina: without angina Qualified Code(s): I25.810 - Atherosclerosis of coronary artery bypass graft(s) without angina pectoris (7) DM type 2 (diabetes mellitus, type 2) Code(s): E11.9 - TYPE 2 DIABETES MELLITUS WITHOUT COMPLICATIONS Qualifiers: Chronic kidney disease stage: stage 3 (moderate) (8) HTN (hypertension) Code(s): I10 - ESSENTIAL (PRIMARY) HYPERTENSION (9) Pulmonary hypertension Code(s): I27.20 - PULMONARY HYPERTENSION, UNSPECIFIED (10) S/P CABG (coronary artery bypass graft) Code(s): Z95.1 - PRESENCE OF AORTOCORONARY BYPASS GRAFT (11) Sleep apnea Code(s): G47.30 - SLEEP APNEA, UNSPECIFIED (12) Acute on chronic respiratory failure with hypoxia and hypercapnia Code(s): J96.21 - ACUTE AND CHRONIC RESPIRATORY FAILURE WITH HYPOXIA; J96.22 - ACUTE AND CHRONIC RESPIRATORY FAILURE WITH HYPERCAPNIA (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 Assessment/Plan IMP ACUTE ON CHRONIC HYPOXEMIC/HYPERCAPNEIC RESPIRATORY FAILURE ACUTE ON CHRONIC CHF COPD O2 DEPENDENT PULMONARY HTN DM JUAN AFIB LEFT BUTTOCK ABSCESS HTN OBESITY ACUTE ON CHRONIC KIDNEY DISEASE PLAN LASIX PER CARDIOLOGY O2 ABX PER ID INHALED BRONCHODILATORS DAILY WT STRICT I+OS WOUND CARE PER SURGERY ABG AC MONITOR LYTES,RENAL FUNCTION BIPAP AT NIGHT AND PRN DR HERNANDEZ Problem List - Problems (1) Abscess of left buttock Code(s): L02.31 - CUTANEOUS ABSCESS OF BUTTOCK (2) Acute kidney injury superimposed on CKD Code(s): N17.9 - ACUTE KIDNEY FAILURE, UNSPECIFIED; N18.9 - CHRONIC KIDNEY DISEASE, UNSPECIFIED (3) ASHD (arteriosclerotic heart disease) Code(s): I25.10 - ATHSCL HEART DISEASE OF [place] CORONARY ARTERY W/O ANG PCTRS (4) Acute on chronic systolic (congestive) heart failure Code(s): I50.23 - ACUTE ON CHRONIC SYSTOLIC (CONGESTIVE) HEART FAILURE (5) Atrial fibrillation Code(s): I48.91 - UNSPECIFIED ATRIAL FIBRILLATION Qualifiers: Atrial fibrillation type: chronic Qualified Code(s): I48.2 - Chronic atrial fibrillation (6) CAD (coronary artery disease) Code(s): I25.10 - ATHSCL HEART DISEASE OF [place] CORONARY ARTERY W/O ANG PCTRS Qualifiers: Coronary Disease-Associated Artery/Lesion type: bypass graft, autologous artery Associated angina: without angina Qualified Code(s): I25.810 - Atherosclerosis of coronary artery bypass graft(s) without angina pectoris (7) DM type 2 (diabetes mellitus, type 2) Code(s): E11.9 - TYPE 2 DIABETES MELLITUS WITHOUT COMPLICATIONS Qualifiers: Chronic kidney disease stage: stage 3 (moderate) (8) HTN (hypertension) Code(s): I10 - ESSENTIAL (PRIMARY) HYPERTENSION (9) Pulmonary hypertension Code(s): I27.20 - PULMONARY HYPERTENSION, UNSPECIFIED (10) S/P CABG (coronary artery bypass graft) Code(s): Z95.1 - PRESENCE OF AORTOCORONARY BYPASS GRAFT (11) Sleep apnea Code(s): G47.30 - SLEEP APNEA, UNSPECIFIED (12) Acute on chronic respiratory failure with hypoxia and hypercapnia Code(s): J96.21 - ACUTE AND CHRONIC RESPIRATORY FAILURE WITH HYPOXIA; J96.22 - ACUTE AND CHRONIC RESPIRATORY FAILURE WITH HYPERCAPNIA (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
[2018-04-04] MEDS: ACETAMINOPHEN 500 MG TABLET (FP) PO PRN (14:31)
[2018-04-04] MEDS: ATORVASTATIN CA 10 MG TABLET (FP) PO SCH (21:38)
[2018-04-05] MEDS: CLINDAMYCIN HCL 150 MG CAPSULE (FP) PO SCH ×3 (05:49→21:39)
[2018-04-05] MEDS: sitaGLIPtin PHOSPHATE 25 MG TABLET (FP) PO SCH (06:01)
[2018-04-05] MEDS: LEVOTHYROXINE NA 50 MCG TABLET (FP) PO SCH (06:02)
[2018-04-05] MEDS: INSULIN SLIDING SCALE (NOVOLOG) 1 VIAL SQ SCH ×4 (06:02→21:40)
[2018-04-05 06:36] LABS: ALBUMIN 3.2 g/dl (3.4-5.0); ALK PHOS 66 U/L (45-117); ANION GAP 6 MMOL/L (8-16); BILIRUBIN,TOTAL 0.4 mg/dL (0.2-1); BLOOD UREA NITROGEN 69 mg/dL (7-18); CALCIUM 8.6 mg/dL (8.5-10.1); CHLORIDE 93 mmol/L (98-107); CO2 38 mmol/L (21-32); CREATININE 2.2 mg/dL (0.55-1.3); GLUCOSE,RANDOM 131 mg/dL (74-106); SGOT/AST 23 U/L (15-37); SGPT/ALT 37 U/L (13-61); SODIUM 137 mmol/L (136-145); TOT PROT 6.6 g/dl (6.4-8.2)
[2018-04-05] MEDS: INSULIN (LEVEMIR) 100 UNITS/ML UNITS SQ SCH ×2 (07:53→21:41)
[2018-04-05] MEDS: IPRATROPIUM BR 0.02% 0.5 MG/2.5 ML VIAL.NEB. NEB SCH ×4 (07:59→20:51)
--- NOTE | 2018-04-05 08:22 | PN ---
Progress Note, Physician Chief Complaint: C/o buttock pain, more SOB, LE edema History of Present Illness: Persistent 6.7cm left basilar atelectasis/consolidation. CABG ASHD. DM type on Levemir/Januvia.. CRI/ckd 4. 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 Previous Thoracentesis in the past-neg for malignancy. JUAN-at nights using CPAP. Chronic A.Fib. CHF. Gout. Gouty arthritis. Last month rectal surgery for abscess, fistula at [facility]. HSV skin. previously. - Current Medication List Current Medications: Active Medications Acetaminophen (Tylenol -) 500 mg PO Q6H PRN PRN Reason: PAIN LEVEL 1 - 3 Last Admin: 04/04/18 14:31 Dose: 500 mg Apixaban (Eliquis -) 5 mg PO BID [facility] Last Admin: 04/04/18 21:38 Dose: 5 mg Atorvastatin Calcium (Lipitor -) 10 mg PO HS [facility] Last Admin: 04/04/18 21:38 Dose: 10 mg Bisacodyl (Dulcolax -) 10 mg PO DAILY [facility] Last Admin: 04/04/18 11:41 Dose: Not Given Clindamycin HCl (Cleocin -) 300 mg PO TID [facility] Last Admin: 04/05/18 05:49 Dose: 300 mg Febuxostat (Uloric -) 40 mg PO DAILY [facility] Last Admin: 04/04/18 11:18 Dose: 40 mg Furosemide (Lasix Injection -) 80 mg IVPB DAILY [facility] Insulin Aspart (Novolog Vial Sliding Scale -) 1 vial SQ [facility]; Protocol Last Admin: 04/05/18 06:02 Dose: Not Given Insulin Detemir (Levemir Vial) 20 units SQ BID@0700,2200 [facility] Last Admin: 04/05/18 07:53 Dose: 20 units Ipratropium [place] (Atrovent 0.02% Nebulizer -) 1 amp NEB RQID [facility] Last Admin: 04/05/18 07:59 Dose: 1 amp Lactobacillus Acidophilus (Bacid -) 1 tab PO BID [facility] Last Admin: 04/04/18 21:38 Dose: 1 tab Levothyroxine Sodium (Synthroid -) 50 mcg PO DAILY@0700 [facility] Last Admin: 04/05/18 06:02 Dose: 50 mcg Metoprolol Succinate (Toprol Xl -) 100 mg PO BID [facility] Last Admin: 04/04/18 21:39 Dose: 100 mg Oxycodone HCl (Roxicodone -) 5 mg PO Q6H PRN PRN Reason: PAIN LEVEL 1-5 Last Admin: 03/31/18 17:15 Dose: 5 mg Polyethylene Glycol (Miralax (For Daily Use) -) 17 gm PO BID [facility] Last Admin: 04/04/18 21:44 Dose: Not Given Prednisone (Deltasone -) 5 mg PO DAILY [facility] Sitagliptin Phosphate (Januvia -) 25 mg PO DAILY@0700 [facility] Last Admin: 04/05/18 06:01 Dose: 25 mg Spironolactone (Aldactone -) 25 mg PO DAILY [facility] Last Admin: 04/04/18 10:51 Dose: 25 mg Valacyclovir HCl (Valtrex -) 500 mg PO BID [facility] Last Admin: 04/04/18 21:43 Dose: 500 mg - Objective Vital Signs: Vital Signs Temperature 97.5 F L 04/05/18 06:00 Pulse Rate 67 04/05/18 06:00 Respiratory Rate 20 04/05/18 06:00 Blood Pressure 118/75 04/05/18 06:00 O2 Sat by Pulse Oximetry (%) 95 04/04/18 21:00 Constitutional: Yes: Anxious, Mild Distress, Obese Eyes: Yes: Conjunctiva Clear, EOM Intact HENT: Yes: Atraumatic, Normocephalic. No: Drooling Neck: Yes: Supple, Trachea Midline Cardiovascular: Yes: Pulse Irregular, Murmur, S1, S2 Respiratory: Yes: Cough, On BiPap, Rales, SOB, SOB on Exertion Gastrointestinal: Yes: Soft, Abdomen, Obese ...Rectal Exam: Yes: Deferred Genitourinary: No: Anuria, Bladder Distention Breast(s): Yes: WNL Musculoskeletal: Yes: WNL Extremities: No: Calf Tenderness, Cold, Cyanosis Edema: Yes Edema: LLE: 3+, RLE: 3+ Peripheral Pulses WNL: No Wound/Incision: Yes: Dressing Removed (clean wound after left buttock abscess- MRSA) Neurological: Yes: Alert, Oriented. No: Aphasia ...Motor Strength: WNL Psychiatric: Yes: WNL Labs: CBC, BMP 04/03/18 05:30 04/05/18 05:30 INR, PTT INR 1.42 (0.83-1.09) H 03/30/18 17:10 Problem List - Problems (1) Cellulitis of left buttock Assessment/Plan: s/p I&D abscess left buttock in diabetic pt S/p I@D Packed with gauze Wound culture MRSA, S Clinda Now on Clinda Code(s): L03.317 - CELLULITIS OF BUTTOCK (2) Acute on chronic systolic (congestive) heart failure Assessment/Plan: Previously EF within 35-40 and diastolic dysfunction Continue Lasix IV, telemetry Follow labs Observe for gout attack Code(s): I50.23 - ACUTE ON CHRONIC SYSTOLIC (CONGESTIVE) HEART FAILURE (3) Atrial fibrillation Assessment/Plan: Continue Eliquis Metoprolol Code(s): I48.91 - UNSPECIFIED ATRIAL FIBRILLATION Qualifiers: Atrial fibrillation type: chronic Qualified Code(s): I48.2 - Chronic atrial fibrillation (4) DM type 2 (diabetes mellitus, type 2) Assessment/Plan: Levemir BID BGM with short acting Insulin Code(s): E11.9 - TYPE 2 DIABETES MELLITUS WITHOUT COMPLICATIONS Qualifiers: Chronic kidney disease stage: stage 3 (moderate) (5) Acute respiratory failure with hypercapnia Assessment/Plan: Bipap mask, pulmonary consult Prednisone 10 mg QD Nebs Atrovent Code(s): J96.02 - ACUTE RESPIRATORY FAILURE WITH HYPERCAPNIA
--- NOTE | 2018-04-05 09:08 | PN ---
Progress Note, Physician Chief Complaint: no distress TELE: Rate controlled AF with periods of bradycardia in evening while asleep due to JUAN - Current Medication List Current Medications: Active Medications Acetaminophen (Tylenol -) 500 mg PO Q6H PRN PRN Reason: PAIN LEVEL 1 - 3 Last Admin: 04/04/18 14:31 Dose: 500 mg Apixaban (Eliquis -) 5 mg PO BID [facility] Last Admin: 04/04/18 21:38 Dose: 5 mg Atorvastatin Calcium (Lipitor -) 10 mg PO HS [facility] Last Admin: 04/04/18 21:38 Dose: 10 mg Bisacodyl (Dulcolax -) 10 mg PO DAILY [facility] Last Admin: 04/04/18 11:41 Dose: Not Given Clindamycin HCl (Cleocin -) 300 mg PO TID [facility] Last Admin: 04/05/18 05:49 Dose: 300 mg Febuxostat (Uloric -) 40 mg PO DAILY [facility] Last Admin: 04/04/18 11:18 Dose: 40 mg Furosemide (Lasix Injection -) 80 mg IVPB BID@0600,1400 [facility] Insulin Aspart (Novolog Vial Sliding Scale -) 1 vial SQ [facility]; Protocol Last Admin: 04/05/18 06:02 Dose: Not Given Insulin Detemir (Levemir Vial) 20 units SQ BID@0700,2200 [facility] Last Admin: 04/05/18 07:53 Dose: 20 units Ipratropium [place] (Atrovent 0.02% Nebulizer -) 1 amp NEB RQID [facility] Last Admin: 04/05/18 07:59 Dose: 1 amp Lactobacillus Acidophilus (Bacid -) 1 tab PO BID [facility] Last Admin: 04/04/18 21:38 Dose: 1 tab Levothyroxine Sodium (Synthroid -) 50 mcg PO DAILY@0700 [facility] Last Admin: 04/05/18 06:02 Dose: 50 mcg Metoprolol Succinate (Toprol Xl -) 100 mg PO BID [facility] Last Admin: 04/04/18 21:39 Dose: 100 mg Oxycodone HCl (Roxicodone -) 5 mg PO Q6H PRN PRN Reason: PAIN LEVEL 1-5 Last Admin: 03/31/18 17:15 Dose: 5 mg Polyethylene Glycol (Miralax (For Daily Use) -) 17 gm PO BID [facility] Last Admin: 04/04/18 21:44 Dose: Not Given Prednisone (Deltasone -) 5 mg PO DAILY [facility] Sitagliptin Phosphate (Januvia -) 25 mg PO DAILY@0700 [facility] Last Admin: 04/05/18 06:01 Dose: 25 mg Spironolactone (Aldactone -) 25 mg PO DAILY [facility] Last Admin: 04/04/18 10:51 Dose: 25 mg Valacyclovir HCl (Valtrex -) 500 mg PO BID [facility] Last Admin: 04/04/18 21:43 Dose: 500 mg - Objective Vital Signs: Vital Signs Temperature 97.5 F L 04/05/18 06:00 Pulse Rate 67 04/05/18 06:00 Respiratory Rate 20 04/05/18 06:00 Blood Pressure 118/75 04/05/18 06:00 O2 Sat by Pulse Oximetry (%) 95 04/04/18 21:00 Constitutional: Yes: No Distress Cardiovascular: Yes: Pulse Irregular Respiratory: Yes: Rhonchi Gastrointestinal: Yes: Soft (NT) Edema: Yes Edema: LLE: 1+, RLE: 1+ Neurological: Yes: Alert, Oriented ...Motor Strength: WNL Labs: CBC, BMP 04/03/18 05:30 04/05/18 05:30 INR, PTT INR 1.42 (0.83-1.09) H 03/30/18 17:10 Laboratory Tests 04/03/18 04/05/18 05:30 05:30 WBC 7.4 Hgb 11.6 L Plt Count 216 Sodium 137 Potassium 4.0 BUN 69 H Creatinine 2.2 H - ....Imaging EKG: Image Reviewed Assessment/Plan IMP: CAD s/p CABG, ischemic CM with EF 35-40% DM CKD Extensive pleural dz from occupational exposures JUAN Mild PHTN, chronic Recent perianal fistula surgical repair at [facility] now presents with gluteal infection (MRSA) and acute on chronic systolic CHF REC: 1. Tele thus far rate controlled. 2. IV Lasix 3. IV abx as per PMD 4. Cont NOAC Will follow
[2018-04-05] MEDS ORDERED: FUROSEMIDE 100 MG/10 ML INJECTABLE VIAL IVPB SCH (10:00)
[2018-04-05] MEDS ORDERED: FUROSEMIDE 40 MG/4 ML INJECTABLE VIAL IVPB SCH (10:00)
[2018-04-05] MEDS: LACTOBACILLUS ACIDOPHILUS 1 TABLET PO SCH ×2 (10:19→21:38)
[2018-04-05] MEDS: APIXABAN 5 MG TABLET PO SCH ×2 (10:19→21:39)
[2018-04-05] MEDS: valACYclovir HCL 500 MG TABLET (FP) PO SCH ×2 (10:19→21:41)
[2018-04-05] MEDS: BISACODYL 5 MG TABLET.DR (FP) PO SCH (10:19)
[2018-04-05] MEDS: SPIRONOLACTONE 25 MG TABLET (FP) PO SCH (10:20)
[2018-04-05] MEDS: FEBUXOSTAT 40 MG TAB PO SCH (10:20)
[2018-04-05] MEDS: POLYETHYLENE GLYCOL 3350 119 GM BTL PO SCH ×2 (10:20→21:41)
--- NOTE | 2018-04-05 11:04 | PN ---
Progress Note, Physician History of Present Illness: pulmonary drowsy ,oob-chair,hypoxic on ra. - Current Medication List Current Medications: Active Medications Acetaminophen (Tylenol -) 500 mg PO Q6H PRN PRN Reason: PAIN LEVEL 1 - 3 Last Admin: 04/04/18 14:31 Dose: 500 mg Apixaban (Eliquis -) 5 mg PO BID [facility] Last Admin: 04/05/18 10:19 Dose: 5 mg Atorvastatin Calcium (Lipitor -) 10 mg PO HS [facility] Last Admin: 04/04/18 21:38 Dose: 10 mg Bisacodyl (Dulcolax -) 10 mg PO DAILY [facility] Last Admin: 04/05/18 10:19 Dose: 10 mg Clindamycin HCl (Cleocin -) 300 mg PO TID [facility] Last Admin: 04/05/18 05:49 Dose: 300 mg Febuxostat (Uloric -) 40 mg PO DAILY [facility] Last Admin: 04/05/18 10:20 Dose: 40 mg Furosemide (Lasix Injection -) 80 mg IVPB BID@0600,1400 [facility] Insulin Aspart (Novolog Vial Sliding Scale -) 1 vial SQ [facility]; Protocol Last Admin: 04/05/18 06:02 Dose: Not Given Insulin Detemir (Levemir Vial) 20 units SQ BID@0700,2200 [facility] Last Admin: 04/05/18 07:53 Dose: 20 units Ipratropium [place] (Atrovent 0.02% Nebulizer -) 1 amp NEB RQID [facility] Last Admin: 04/05/18 07:59 Dose: 1 amp Lactobacillus Acidophilus (Bacid -) 1 tab PO BID [facility] Last Admin: 04/05/18 10:19 Dose: 1 tab Levothyroxine Sodium (Synthroid -) 50 mcg PO DAILY@0700 [facility] Last Admin: 04/05/18 06:02 Dose: 50 mcg Metoprolol Succinate (Toprol Xl -) 100 mg PO BID [facility] Last Admin: 04/05/18 10:19 Dose: 100 mg Oxycodone HCl (Roxicodone -) 5 mg PO Q6H PRN PRN Reason: PAIN LEVEL 1-5 Last Admin: 03/31/18 17:15 Dose: 5 mg Polyethylene Glycol (Miralax (For Daily Use) -) 17 gm PO BID [facility] Last Admin: 01/16/19 10:20 Dose: Not Given Prednisone (Deltasone -) 5 mg PO DAILY [facility] Last Admin: 04/05/18 10:19 Dose: 5 mg Sitagliptin Phosphate (Januvia -) 25 mg PO DAILY@0700 [facility] Last Admin: 04/05/18 06:01 Dose: 25 mg Spironolactone (Aldactone -) 25 mg PO DAILY [facility] Last Admin: 04/05/18 10:20 Dose: 25 mg Valacyclovir HCl (Valtrex -) 500 mg PO BID [facility] Last Admin: 04/05/18 10:19 Dose: 500 mg - Objective Vital Signs: Vital Signs Temperature 97.5 F L 04/05/18 06:00 Pulse Rate 67 04/05/18 06:00 Respiratory Rate 20 04/05/18 06:00 Blood Pressure 118/75 04/05/18 06:00 O2 Sat by Pulse Oximetry (%) 95 04/04/18 21:00 Constitutional: Yes: Calm, Obese Eyes: Yes: WNL HENT: Yes: WNL Neck: Yes: WNL Cardiovascular: Yes: Pulse Irregular, S1, S2 Respiratory: Yes: Rales (scattered aron rhonchi and rales), Rhonchi Gastrointestinal: Yes: Normal Bowel Sounds, Soft Extremities: Yes: WNL Edema: Yes Labs: CBC, BMP 04/03/18 05:30 04/05/18 05:30 INR, PTT INR 1.42 (0.83-1.09) H 03/30/18 17:10 Problem List - Problems (1) Abscess of left buttock Code(s): L02.31 - CUTANEOUS ABSCESS OF BUTTOCK (2) Acute kidney injury superimposed on CKD Code(s): N17.9 - ACUTE KIDNEY FAILURE, UNSPECIFIED; N18.9 - CHRONIC KIDNEY DISEASE, UNSPECIFIED (3) ASHD (arteriosclerotic heart disease) Code(s): I25.10 - ATHSCL HEART DISEASE OF [place] CORONARY ARTERY W/O ANG PCTRS (4) Acute on chronic systolic (congestive) heart failure Code(s): I50.23 - ACUTE ON CHRONIC SYSTOLIC (CONGESTIVE) HEART FAILURE (5) Atrial fibrillation Code(s): I48.91 - UNSPECIFIED ATRIAL FIBRILLATION Qualifiers: Atrial fibrillation type: chronic Qualified Code(s): I48.2 - Chronic atrial fibrillation (6) CAD (coronary artery disease) Code(s): I25.10 - ATHSCL HEART DISEASE OF [place] CORONARY ARTERY W/O ANG PCTRS Qualifiers: Coronary Disease-Associated Artery/Lesion type: bypass graft, autologous artery Associated angina: without angina Qualified Code(s): I25.810 - Atherosclerosis of coronary artery bypass graft(s) without angina pectoris (7) DM type 2 (diabetes mellitus, type 2) Code(s): E11.9 - TYPE 2 DIABETES MELLITUS WITHOUT COMPLICATIONS Qualifiers: Chronic kidney disease stage: stage 3 (moderate) (8) HTN (hypertension) Code(s): I10 - ESSENTIAL (PRIMARY) HYPERTENSION (9) Pulmonary hypertension Code(s): I27.20 - PULMONARY HYPERTENSION, UNSPECIFIED (10) S/P CABG (coronary artery bypass graft) Code(s): Z95.1 - PRESENCE OF AORTOCORONARY BYPASS GRAFT (11) Sleep apnea Code(s): G47.30 - SLEEP APNEA, UNSPECIFIED (12) Acute on chronic respiratory failure with hypoxia and hypercapnia Code(s): J96.21 - ACUTE AND CHRONIC RESPIRATORY FAILURE WITH HYPOXIA; J96.22 - ACUTE AND CHRONIC RESPIRATORY FAILURE WITH HYPERCAPNIA (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 Assessment/Plan IMP ACUTE ON CHRONIC HYPOXEMIC/HYPERCAPNEIC RESPIRATORY FAILURE ACUTE ON CHRONIC CHF COPD O2 DEPENDENT PULMONARY HTN DM JUAN AFIB LEFT BUTTOCK ABSCESS HTN OBESITY ACUTE ON CHRONIC KIDNEY DISEASE PLAN LASIX PER CARDIOLOGY O2 ABX PER ID INHALED BRONCHODILATORS DAILY WT STRICT I+OS WOUND CARE PER SURGERY ABG AC MONITOR LYTES,RENAL FUNCTION BIPAP AT NIGHT AND PRN DR HERNANDEZ Problem List - Problems (1) Abscess of left buttock Code(s): L02.31 - CUTANEOUS ABSCESS OF BUTTOCK (2) Acute kidney injury superimposed on CKD Code(s): N17.9 - ACUTE KIDNEY FAILURE, UNSPECIFIED; N18.9 - CHRONIC KIDNEY DISEASE, UNSPECIFIED (3) ASHD (arteriosclerotic heart disease) Code(s): I25.10 - ATHSCL HEART DISEASE OF [place] CORONARY ARTERY W/O ANG PCTRS (4) Acute on chronic systolic (congestive) heart failure Code(s): I50.23 - ACUTE ON CHRONIC SYSTOLIC (CONGESTIVE) HEART FAILURE (5) Atrial fibrillation Code(s): I48.91 - UNSPECIFIED ATRIAL FIBRILLATION Qualifiers: Atrial fibrillation type: chronic Qualified Code(s): I48.2 - Chronic atrial fibrillation (6) CAD (coronary artery disease) Code(s): I25.10 - ATHSCL HEART DISEASE OF [place] CORONARY ARTERY W/O ANG PCTRS Qualifiers: Coronary Disease-Associated Artery/Lesion type: bypass graft, autologous artery Associated angina: without angina Qualified Code(s): I25.810 - Atherosclerosis of coronary artery bypass graft(s) without angina pectoris (7) DM type 2 (diabetes mellitus, type 2) Code(s): E11.9 - TYPE 2 DIABETES MELLITUS WITHOUT COMPLICATIONS Qualifiers: Chronic kidney disease stage: stage 3 (moderate) (8) HTN (hypertension) Code(s): I10 - ESSENTIAL (PRIMARY) HYPERTENSION (9) Pulmonary hypertension Code(s): I27.20 - PULMONARY HYPERTENSION, UNSPECIFIED (10) S/P CABG (coronary artery bypass graft) Code(s): Z95.1 - PRESENCE OF AORTOCORONARY BYPASS GRAFT (11) Sleep apnea Code(s): G47.30 - SLEEP APNEA, UNSPECIFIED (12) Acute on chronic respiratory failure with hypoxia and hypercapnia Code(s): J96.21 - ACUTE AND CHRONIC RESPIRATORY FAILURE WITH HYPOXIA; J96.22 - ACUTE AND CHRONIC RESPIRATORY FAILURE WITH HYPERCAPNIA (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
[2018-04-05] MEDS ORDERED: PT OWN MED DRAWER 7, Y5N ONE (13:20)
[2018-04-05] MEDS: FUROSEMIDE 40 MG/4 ML INJECTABLE VIAL IVPB SCH (13:53)
--- NOTE | 2018-04-05 15:45 | PN ---
Progress Note (short form) - Note Progress Note: Renal follow up for KOFI on CKD Pt seen and examined at the bedside awake and alert continues to have mild sob making urine Vital Signs Temperature 98.2 F 04/05/18 15:10 Pulse Rate 72 04/05/18 15:10 Respiratory Rate 18 04/05/18 15:10 Blood Pressure 121/82 04/05/18 15:10 O2 Sat by Pulse Oximetry (%) 95 04/05/18 09:00 Intake & Output 04/02/18 04/03/18 04/04/18 04/05/18 23:59 23:59 23:59 23:59 Intake Total 540 240 288 210 Output Total 150 300 575 Balance 390 -60 -287 210 Weight 106.594 kg 106.776 kg 107.048 kg 107.955 kg NAD awake and alert neck supple, no JVD RRR, no M/R dec BS at lung bases soft NT, mild distension, obese no bladder distension + edema in LE, no cyanosis or clubbing no focal neurological defects CBC, BMP 04/03/18 05:30 04/05/18 05:30 Current Medications Acetaminophen (Tylenol -) 500 mg PO Q6H PRN PRN Reason: PAIN LEVEL 1 - 3 Last Admin: 04/04/18 14:31 Dose: 500 mg Apixaban (Eliquis -) 5 mg PO BID [facility] Last Admin: 04/05/18 10:19 Dose: 5 mg Atorvastatin Calcium (Lipitor -) 10 mg PO HS [facility] Last Admin: 04/04/18 21:38 Dose: 10 mg Bisacodyl (Dulcolax -) 10 mg PO DAILY [facility] Last Admin: 04/05/18 10:19 Dose: 10 mg Clindamycin HCl (Cleocin -) 300 mg PO TID [facility] Last Admin: 04/05/18 14:40 Dose: 300 mg Febuxostat (Uloric -) 40 mg PO DAILY [facility] Last Admin: 04/05/18 10:20 Dose: 40 mg Furosemide (Lasix Injection -) 80 mg IVPB BID@0600,1400 [facility] Last Admin: 04/05/18 13:53 Dose: 80 mg Insulin Aspart (Novolog Vial Sliding Scale -) 1 vial SQ ACHS [facility]; Protocol Last Admin: 04/05/18 12:34 Dose: Not Given Insulin Detemir (Levemir Vial) 20 units SQ BID@0700,2200 [facility] Last Admin: 04/05/18 07:53 Dose: 20 units Ipratropium [place] (Atrovent 0.02% Nebulizer -) 1 amp NEB RQID [facility] Last Admin: 04/05/18 11:56 Dose: 1 amp Lactobacillus Acidophilus (Bacid -) 1 tab PO BID [facility] Last Admin: 04/05/18 10:19 Dose: 1 tab Levothyroxine Sodium (Synthroid -) 50 mcg PO DAILY@0700 [facility] Last Admin: 04/05/18 06:02 Dose: 50 mcg Metoprolol Succinate (Toprol Xl -) 100 mg PO BID [facility] Last Admin: 04/05/18 10:19 Dose: 100 mg Oxycodone HCl (Roxicodone -) 5 mg PO Q6H PRN PRN Reason: PAIN LEVEL 1-5 Last Admin: 03/31/18 17:15 Dose: 5 mg Polyethylene Glycol (Miralax (For Daily Use) -) 17 gm PO BID [facility] Last Admin: 04/05/18 10:20 Dose: Not Given Prednisone (Deltasone -) 5 mg PO DAILY [facility] Last Admin: 04/05/18 10:19 Dose: 5 mg Sitagliptin Phosphate (Januvia -) 25 mg PO DAILY@0700 [facility] Last Admin: 04/05/18 06:01 Dose: 25 mg Spironolactone (Aldactone -) 25 mg PO DAILY [facility] Last Admin: 04/05/18 10:20 Dose: 25 mg Valacyclovir HCl (Valtrex -) 500 mg PO BID [facility] Last Admin: 04/05/18 10:19 Dose: 500 mg 87 year old gentleman with hx of CKD (baseline Cr unclear was 1.4 to 2.3 in 2018), CAD s/p CABG, CHF with EF 35-40%, DM, JUAN, Pulmonary hypertension , recent perianal fistula repair who presented with gluteal infection and CHF and found to have Cr of 2.6. #KOFI vs. CKD (UA w/o protein or blood) #Acute CHF exacerbation #Gluteal infection/cellulitis with recent perianal fistula repair #DM #CAD #Respiratory acidosis with metabolic compensation Renal function with mild improvement continue IV lasix and aldactone Trend renal function and electrolytes cardiology follow up withholding BETTY or ARB because of low eGFR Thank you Kennedy King DO
[2018-04-05] MEDS: ATORVASTATIN CA 10 MG TABLET (FP) PO SCH (21:39)
[2018-04-06] MEDS: CLINDAMYCIN HCL 150 MG CAPSULE (FP) PO SCH (06:24)
[2018-04-06] MEDS: FUROSEMIDE 40 MG/4 ML INJECTABLE VIAL IVPB SCH (06:24)
[2018-04-06] MEDS: sitaGLIPtin PHOSPHATE 25 MG TABLET (FP) PO SCH (06:25)
[2018-04-06] MEDS: INSULIN (LEVEMIR) 100 UNITS/ML UNITS SQ SCH (06:31)
[2018-04-06] MEDS: LEVOTHYROXINE NA 50 MCG TABLET (FP) PO SCH (06:32)
[2018-04-06] MEDS: INSULIN SLIDING SCALE (NOVOLOG) 1 VIAL SQ SCH (06:32)
[2018-04-06] MEDS: IPRATROPIUM BR 0.02% 0.5 MG/2.5 ML VIAL.NEB. NEB SCH (07:36)
[2018-04-06 08:39] VITALS: BP 109/60; PULSE 72; TEMP 97.8
--- NOTE | 2018-04-06 08:42 | PN ---
Progress Note (short form) - Note Progress Note: Tolarating Clinda PO well. Respiratory status stable. Lost 7lbs since admission. BUN/Cr stable. Spoke to son Sunday Vital Signs Temp 97.8 F 04/06/18 08:38 Pulse 72 04/06/18 08:38 Resp 18 04/06/18 08:38 BP 109/60 04/06/18 08:38 Pulse Ox 95 04/05/18 21:00 Intake & Output 04/05/18 04/05/18 04/06/18 11:59 23:59 11:59 Intake Total 210 620 260 Balance 210 620 260 Weight 238 lb 239 lb Intake: IV 10 10 10 sl 10 10 10 Oral 200 610 250 Other: Voiding Method Urinal Urinal Urinal # Unmeasured Voids Void 2 2 2 Bowel Movement No Yes No # Bowel Movements 1 Weight Measurement Method Standing Scale Standing Scale PE A, Ox3 Neck-no JVD Lungs decreased BS LLL Heart S1S2 irregular, irregular Abdomen soft, obese Ext-trace edema Buttocks abscess dressing clean Current Active Problems Problem Status Onset Abscess of left buttock Acute Acute kidney injury superimposed on CKD Acute Acute on chronic respiratory failure with hypoxia and hypercapnia Acute Asbestos pleurisy Acute Cellulitis of left buttock Abscess MRSA Acute Plan D/c home with VNS on Clinda PO diuretics F/u in the [facility] F/u at the office next week Needs dental consukt as outpt Problem List - Problems (1) Cellulitis of left buttock Code(s): L03.317 - CELLULITIS OF BUTTOCK (2) Acute on chronic systolic (congestive) heart failure Code(s): I50.23 - ACUTE ON CHRONIC SYSTOLIC (CONGESTIVE) HEART FAILURE (3) Atrial fibrillation Code(s): I48.91 - UNSPECIFIED ATRIAL FIBRILLATION Qualifiers: Atrial fibrillation type: chronic Qualified Code(s): I48.2 - Chronic atrial fibrillation (4) DM type 2 (diabetes mellitus, type 2) Code(s): E11.9 - TYPE 2 DIABETES MELLITUS WITHOUT COMPLICATIONS Qualifiers: Chronic kidney disease stage: stage 3 (moderate) (5) Acute respiratory failure with hypercapnia Code(s): J96.02 - ACUTE RESPIRATORY FAILURE WITH HYPERCAPNIA
--- NOTE | 2018-04-06 08:44 | DS ---
Physical Examination Vital Signs: Vital Signs Temperature 97.8 F 04/06/18 08:38 Pulse Rate 72 04/06/18 08:38 Respiratory Rate 18 04/06/18 08:38 Blood Pressure 109/60 04/06/18 08:38 O2 Sat by Pulse Oximetry (%) 95 04/05/18 21:00 Constitutional: Yes: Anxious, Mild Distress Eyes: Yes: Conjunctiva Clear, EOM Intact HENT: Yes: Atraumatic, Normocephalic Neck: Yes: Supple, Trachea Midline Cardiovascular: Yes: Pulse Irregular. No: JVD Respiratory: Yes: Diminished, On BiPap, On Nasal O2, SOB, SOB on Exertion Gastrointestinal: Yes: Normal Bowel Sounds, Abdomen, Obese ...Rectal Exam: Yes: Deferred Renal/: No: Anuria, Bladder Distention, CVA Tenderness - Left, CVA Tenderness - Right Breast(s): Yes: WNL Extremities: No: Calf Tenderness, Cold, Cyanosis Edema: Yes Edema: LLE: Trace, RLE: Trace Wound/Incision: Yes: Dressing Dry and Intact Neurological: Yes: Alert, Oriented, Weakness. No: Aphasia ...Motor Strength: WNL Psychiatric: Yes: WNL Labs: CBC, BMP 04/03/18 05:30 Discharge Summary Reason For Visit: ABSCESS OF BUTTOCK, Acute on chronic CHF, Resp [email or web address] Current Active Problems Abscess of left buttock (Acute) Acute kidney injury superimposed on CKD (Acute) Acute on chronic respiratory failure with hypoxia and hypercapnia (Acute) Asbestos pleurisy (Acute) Cellulitis of left buttock (Acute) Condition: Fair - Instructions Diet, Activity, Other Instructions: Keep area clean and dry. May shower. Please avoid pressure to the area. Follow-up with Dr. Donis in the wound clinic. Take oral antibiotics as prescribed. Referrals: Glenn Donis MD [Staff Physician] - Sunil Moseley MD [Primary Care Provider] - Disposition: HOME - Home Medications Comprehensive Discharge Medication List: Ambulatory Orders Pravastatin Sodium [Pravachol -] 40 mg PO DAILY 10/12/14 Sitagliptin Phosphate [Januvia -] 25 mg PO DAILY@0700 #90 tab 10/14/14 Ipratropium 0.02% Nebulizer [Atrovent 0.02% Nebulizer -] 0.5 mg IH PRN 03/21/17 Spironolactone [Aldactone -] 25 mg PO DAILY #30 tablet 03/31/17 Aspirin 81 mg PO DAILY 04/10/17 Insulin Glargine,Hum.rec.anlog [Lantus] 60 unit SQ DAILY 04/10/17 Febuxostat [Uloric] 40 mg PO DAILY 02/20/18 Furosemide [Lasix -] 40 mg PO HS 02/20/18 Levothyroxine [Synthroid -] 0.05 mg PO DAILY 02/20/18 Linaclotide [Linzess] 290 mcg PO DAILY 02/20/18 Metoprolol Succinate [Toprol Xl] 50 mg PO BID 02/20/18 Apixaban [Eliquis -] 2.5 mg PO BID 03/30/18
[2018-04-06 08:56] LABS: ANION GAP 9 MMOL/L (8-16); BLOOD UREA NITROGEN 72 mg/dL (7-18); CALCIUM 8.6 mg/dL (8.5-10.1); CHLORIDE 96 mmol/L (98-107); CO2 33 mmol/L (21-32); CREATININE 2.2 mg/dL (0.55-1.3); GLUCOSE,RANDOM 147 mg/dL (74-106); MAGNESIUM 2.7 mg/dL (1.8-2.4); PHOSPHOROUS 3.9 mg/dL (2.5-4.9); POTASSIUM 4.4 mmol/L (3.5-5.1); SODIUM 138 mmol/L (136-145)
--- NOTE | 2018-04-06 09:08 | PN ---
Progress Note, Physician Chief Complaint: seen and examined No distress TELE: Rate controlled AF History of Present Illness: Weight is down - Current Medication List Current Medications: Active Medications Acetaminophen (Tylenol -) 500 mg PO Q6H PRN PRN Reason: PAIN LEVEL 1 - 3 Last Admin: 04/04/18 14:31 Dose: 500 mg Apixaban (Eliquis -) 5 mg PO BID [facility]S [facility] Last Admin: 04/05/18 21:39 Dose: 5 mg Atorvastatin Calcium (Lipitor -) 10 mg PO HS [facility] 234 BEDS AT [facility] Last Admin: 04/05/18 21:39 Dose: 10 mg Bisacodyl (Dulcolax -) 10 mg PO DAILY [facility] 234 BEDS AT [facility] Last Admin: 04/05/18 10:19 Dose: 10 mg Clindamycin HCl (Cleocin -) 300 mg PO TID [facility] 234 BEDS AT [facility] Last Admin: 04/06/18 06:24 Dose: 300 mg Febuxostat (Uloric -) 40 mg PO DAILY [facility] 234 BEDS AT [facility] Last Admin: 04/05/18 10:20 Dose: 40 mg Furosemide (Lasix Injection -) 80 mg IVPB BID@0600,1400 [facility] 234 BEDS AT [facility] Last Admin: 04/06/18 06:24 Dose: 80 mg Insulin Aspart (Novolog Vial Sliding Scale -) 1 vial SQ [facility]; Protocol Last Admin: 04/06/18 06:32 Dose: Not Given Insulin Detemir (Levemir Vial) 20 units SQ BID@0700,2200 [facility] 234 BEDS AT [facility] Last Admin: 04/06/18 06:31 Dose: 20 units Ipratropium [place]ift (Atrovent 0.02% Nebulizer -) 1 amp NEB RQID [facility] 234 BEDS AT [facility] Last Admin: 04/06/18 07:36 Dose: 1 amp Lactobacillus Acidophilus (Bacid -) 1 tab PO BID [facility] 234 BEDS AT [facility] Last Admin: 04/05/18 21:38 Dose: 1 tab Levothyroxine Sodium (Synthroid -) 50 mcg PO DAILY@0700 [facility] 234 BEDS AT [facility] Last Admin: 04/06/18 06:32 Dose: 50 mcg Metoprolol Succinate (Toprol Xl -) 100 mg PO BID [facility] 234 BEDS AT [facility] Last Admin: 04/05/18 21:39 Dose: 100 mg Oxycodone HCl (Roxicodone -) 5 mg PO Q6H PRN PRN Reason: PAIN LEVEL 1-5 Last Admin: 03/31/18 17:15 Dose: 5 mg Polyethylene Glycol (Miralax (For Daily Use) -) 17 gm PO BID [facility] 234 BEDS AT [facility] Last Admin: 04/05/18 21:41 Dose: Not Given Sitagliptin Phosphate (Januvia -) 25 mg PO DAILY@0700 [facility] 234 BEDS AT [facility] Last Admin: 04/06/18 06:25 Dose: 25 mg Spironolactone (Aldactone -) 25 mg PO DAILY [facility] 234 BEDS AT [facility] Last Admin: 04/05/18 10:20 Dose: 25 mg Valacyclovir HCl (Valtrex -) 500 mg PO BID [facility] 234 BEDS AT [facility] Last Admin: 04/05/18 21:41 Dose: 500 mg - Objective Vital Signs: Vital Signs Temperature 97.8 F 04/06/18 08:38 Pulse Rate 72 04/06/18 08:38 Respiratory Rate 18 04/06/18 08:38 Blood Pressure 109/60 04/06/18 08:38 O2 Sat by Pulse Oximetry (%) 95 04/05/18 21:00 Constitutional: Yes: Well Nourished Cardiovascular: Yes: Pulse Irregular Respiratory: Yes: Rhonchi Gastrointestinal: Yes: Soft, Abdomen, Obese Edema: Yes Edema: LLE: 1+, RLE: 1+ Neurological: Yes: Alert Labs: CBC, BMP 04/03/18 05:30 04/06/18 05:30 INR, PTT INR 1.42 (0.83-1.09) H 03/30/18 17:10 Laboratory Tests 04/03/18 04/06/18 05:30 05:30 WBC 7.4 Hgb 11.6 L Plt Count 216 Sodium 138 Potassium 4.4 BUN 72 H Creatinine 2.2 H Magnesium 2.7 H - ....Imaging EKG: Image Reviewed Assessment/Plan IMP: CAD s/p CABG, 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 Tele thus far rate controlled. 2. BID Lasix 3. IV abx as per PMD 4. Cont NOAC OK for d/c home from CV standpoint
[2018-04-06] MEDS: BISACODYL 5 MG TABLET.DR (FP) PO SCH (09:45)
[2018-04-06] MEDS: SPIRONOLACTONE 25 MG TABLET (FP) PO SCH (09:45)
[2018-04-06] MEDS: LACTOBACILLUS ACIDOPHILUS 1 TABLET PO SCH (09:45)
[2018-04-06] MEDS: POLYETHYLENE GLYCOL 3350 119 GM BTL PO SCH (09:45)
[2018-04-06] MEDS: APIXABAN 5 MG TABLET PO SCH (09:45)
[2018-04-06] MEDS: valACYclovir HCL 500 MG TABLET (FP) PO SCH (09:46)
[2018-04-06] MEDS: FEBUXOSTAT 40 MG TAB PO SCH (09:46)
== END 2018-04-06 11:08 | disposition home or self-care (01) | DRG 602 ==
LOC: JER 16:25 → JERBED 16:52 → J5S 19:24 → J4W 03-31 13:42
PROVIDERS: ADMIT Internal Medicine; ATTEND Internal Medicine
PROC: 0H98XZX Drainage of Buttock Skin, External Approach, Diagnostic (ICD-10-PCS; principal; 2018-03-31)
DX: L03.317 Cellulitis of buttock (principal); I50.23 Acute on chronic systolic (congestive) heart failure; J96.22 Acute and chronic respiratory failure with hypercapnia; J96.21 Acute and chronic respiratory failure with hypoxia; I13.0 Hypertensive heart and chronic kidney disease with heart failure and stage 1 through stage 4 chronic kidney disease, or unspecified chronic kidney disease; N18.4 Chronic kidney disease, stage 4 (severe); J98.11 Atelectasis; N17.9 Acute kidney failure, unspecified; E87.2 Acidosis; I25.10 Atherosclerotic heart disease of native coronary artery without angina pectoris; Z95.1 Presence of aortocoronary bypass graft; J44.9 Chronic obstructive pulmonary disease, unspecified; G47.33 Obstructive sleep apnea (adult) (pediatric); I48.2 Chronic atrial fibrillation; M10.9 Gout, unspecified; E11.22 Type 2 diabetes mellitus with diabetic chronic kidney disease; Z79.4 Long term (current) use of insulin; I27.20 Pulmonary hypertension, unspecified; I35.0 Nonrheumatic aortic (valve) stenosis; I25.5 Ischemic cardiomyopathy; E66.9 Obesity, unspecified; Z99.81 Dependence on supplemental oxygen; Z68.37 Body mass index [BMI] 37.0-37.9, adult; L02.31 Cutaneous abscess of buttock; B95.62 Methicillin resistant Staphylococcus aureus infection as the cause of diseases classified elsewhere
CPT/HCPCS: 36415; 36600; 71045-TC-FY; 71250-TC; 72192-TC; 80048; 80053; 80061; 81003; 82803; 82962; 83036; 83721; 83735; 83880; 84100; 85025; 85610; 86850; 86900; 86901; 87040; 87070; 87186; 87205; 93005; 93010; 93306-TC; 94640; 94660; 97116-GP; 97161-GP; 99281-25; G0463-25; G0480

== ENCOUNTER 2018-04-10 04:30 | Emergency (ER) | payer OTHER ==
--- NOTE | 2018-04-10 04:39 | PDOC ---
Attending Attestation - Resident Resident Name: Loan Castillo - ED Attending Attestation I have performed the following: I have examined & evaluated the patient, The case was reviewed & discussed with the resident, I agree w/resident's findings & plan - HPI HPI: 04/10/18 05:28 Pt comes with SOB due to hypoxia due to home O2 malfunction. EMS called; they noted that his BP is low. He was brought to the ER. - Physicial Exam PE: 04/10/18 05:44 Pt comes to the ER because his home O2 wasn't working. Turns out when EMS showed up, his BP was low. They recommended he come to the ER. Here he has distended abd full of gas with high pitched bowel sounds. He is somnolent. Afebrile. He was recently admitted for MRSA. He was discharged a couple days back with clinda for the abscess on his buttock. - Medical Decision Making 04/10/18 06:23 Pt will have comprehensive labs done as well as CXR and FUA to look for air fluid levels in his gut. 04/10/18 06:27 CXR demonstrates cardiomegaly as well as fluid in the right oblique fissure
--- NOTE | 2018-04-10 04:40 | PDOC ---
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 Patient is on 3.5 L Oxygen at home and his oxygen tank stopped working around 2 a.m. prompting patient's to call son. When son arrived @ house, patient was on CPAP machine and breathing comfortably. Patient's mother had also called 911 and when EMS arrived patient's blood pressure was noted to be 88/52, patient was brought to our ED. Son notes he should be able to get a replacement oxygen machine this morning. The patient denies shortness of breath, headache and dizziness. Denies fever, chills, nausea, vomit, diarrhea and constipation. Denies dysuria, frequency, urgency and hematuria. NKDA Surgical: CABG, nephrectomy Social: lifetime non-smoker, denies other toxic habits PMD: Dr. Moseley As per EMR patient last evaluated in our ED in 03/30/2018 for L buttock ulcer. Patient admitted for IV antibiotics and discharged 04/06/18 on Clindamycin. Past History - Past Medical History Allergies/Adverse Reactions: Allergies Allergy/AdvReac Type Severity Reaction Status Date / Time No Known Allergies Allergy Verified 04/10/18 05:08 Home Medications: Ambulatory Orders Pravastatin Sodium [Pravachol -] 40 mg PO DAILY 10/12/14 Sitagliptin Phosphate [Januvia -] 25 mg PO DAILY@0700 #90 tab 10/14/14 Ipratropium 0.02% Nebulizer [Atrovent 0.02% Nebulizer -] 0.5 mg IH PRN 03/21/17 Spironolactone [Aldactone -] 25 mg PO DAILY #30 tablet 03/31/17 Aspirin 81 mg PO DAILY 04/10/17 Insulin Glargine,Hum.rec.anlog [Lantus] 60 unit SQ DAILY 04/10/17 Febuxostat [Uloric] 40 mg PO DAILY 02/20/18 Levothyroxine [Synthroid -] 0.05 mg PO DAILY 02/20/18 Linaclotide [Linzess] 290 mcg PO DAILY 02/20/18 Metoprolol Succinate [Toprol Xl] 50 mg PO BID 02/20/18 Apixaban [Eliquis -] 2.5 mg PO BID 03/30/18 Acetaminophen [Tylenol .Extra-Strength -] 500 mg PO Q6H PRN tablet 04/06/18 Clindamycin [Cleocin -] 300 mg PO TID 5 Days #14 capsule 04/06/18 Furosemide 80 mg PO BIDLASIX #120 tablet 04/06/18 Valacyclovir HCl [Valtrex -] 500 mg PO BID tablet 04/06/18 Colchicine [Mitigare] 0.6 mg PO BID 04/10/18 Anemia: No Asthma: No Cancer: No Cardiac Disorders: Yes CVA: No COPD: Yes CHF: No Dementia: Yes (PER FAMILY/MILD) Diabetes: Yes GI Disorders: No Disorders: No HTN: No Hypercholesterolemia: No Liver Disease: No Seizures: No Thyroid Disease: No Lung CA: No (MESOTHELIOMA) - Surgical History Abdominal Surgery: No Appendectomy: No Cardiac Surgery: Yes (CABG) Cholecystectomy: No Lung Surgery: No Neurologic Surgery: No Orthopedic Surgery: No - Immunization History Immunization Up to Date: Yes - Suicide/Smoking/Psychosocial Hx Smoking History: Former smoker Have you smoked in the past 12 months: No If you are a former smoker, when did you quit?: 30 YRS AGO Hx Alcohol Use: No Drug/Substance Use Hx: No Substance Use Type: None Hx Substance Use Treatment: No Review of Systems - Review of Systems Constitutional: No: Chills, Fever HEENTM: No: Blurred Vision, Double Vision Respiratory: Yes: Shortness of Breath. No: Cough, Wheezing, Hemoptysis Cardiac (ROS): No: Chest Pain, Lightheadedness, Palpitations, Syncope ABD/GI: Yes: Abdominal Distended. No: Constipated, Diarrhea, Nausea, Vomiting : No: Burning, Dysuria *Physical Exam - Physical Exam General Appearance: Yes: Nourished, Obese HEENT: positive: Normal Voice, Hearing Decreased Neck: positive: Trachea midline, Supple Respiratory/Chest: positive: Lungs Clear, Normal Breath Sounds. negative: Respiratory Distress, Accessory Muscle Use Cardiovascular: positive: S1, S2, Edema (B/L 3+ pitting edema) Gastrointestinal/Abdominal: positive: Other (Distended, hyperactive bowel sounds , tympanitic) Extremity: positive: Normal Capillary Refill, Pedal Edema Integumentary: positive: Normal Color, Dry, Warm Neurologic: positive: Fully Oriented, Alert ED Treatment Course - LABORATORY CBC & Chemistry Diagram: 04/10/18 06:00 04/10/18 06:00 Medical Decision Making - Medical Decision Making 04/10/18 04:57 87 year old male with hypotension and hypoxia following oxygen tank failure. BP 104/62, SpO2 100% on 3L NC (baseline home oxygen level). Will monitor and check BP. 04/10/18 05:10 PE significant for belly distention and hyperactive bowel sounds noted. Will obtain abdominal XR to evaluate for air fluid levels. Labs pending. 04/10/18 05:17 Patient reassessed @ bedside, repeat BP 149/74 Patient and patient's son counseled on plan of care. 04/10/18 06:41 No leukocytosis Cr stable @ 2.3 Patient at XR 04/10/18 07:00 My read of X-ray shows air filled bowel, concerning for SBO. Will obtain CT Abdomen/Pelvis w/PO contrast (patient has h/o renal insufficiency). 04/10/18 07:20 Patient signed out to Dr. Mariscal (Resident) and Dr. Conde (Attending) - will start PO contrast, SW to assist in O2 machine replacement. *DC/Admit/Observation/Transfer Diagnosis at time of Disposition: Low blood pressure reading - Referrals Referrals: Sunil Moseley MD [Primary Care Provider] - - Patient Instructions - Post Discharge Activity
[2018-04-10 05:08] VITALS: BMI 36.9
[2018-04-10 06:09] LABS: BASO % 1.4 % (0-2.0); EOS % 3.9 % (0-4.5); HEMATOCRIT 35.4 % (35.4-49); HEMOGLOBIN 11.9 GM/dL (11.7-16.9); LYMPH % 21.1 % (8-40); MCH 30.8 pg (25.7-33.7); MCHC 33.7 g/dl (32.0-35.9); MEAN CELL VOLUME 91.5 fl (80-96); MEAN PLT VOLUME 7.5 fl (7.5-11.1); MONO % 13.8 % (3.8-10.2); NEUT % 59.8 % (42.8-82.8); PLATELET COUNT 223 K/MM3 (134-434); RBC 3.87 M/mm3 (4.00-5.60); RDW 17.5 % (11.9-15.9); WHITE BLOOD COUNT 7.8 K/mm3 (4.0-10.0)
[2018-04-10 06:33] LABS: INR 1.17 (0.83-1.09); PROTHROMBIN TIME (PATIENT) 13.8 SEC (9.7-13.0)
[2018-04-10 06:36] LABS: ACTIVATED PTT 30.3 SECONDS (25.2-36.5)
[2018-04-10 06:37] LABS: ALBUMIN 3.4 g/dl (3.4-5.0); ALK PHOS 82 U/L (45-117); ANION GAP 5 MMOL/L (8-16); BILIRUBIN,TOTAL 0.4 mg/dL (0.2-1); BLOOD UREA NITROGEN 76 mg/dL (7-18); CALCIUM 8.3 mg/dL (8.5-10.1); CHLORIDE 97 mmol/L (98-107); CO2 36 mmol/L (21-32); CREATININE 2.3 mg/dL (0.55-1.3); GLUCOSE,RANDOM 149 mg/dL (74-106); MAGNESIUM 2.5 mg/dL (1.8-2.4); POTASSIUM 4.3 mmol/L (3.5-5.1); SGOT/AST 18 U/L (15-37); SGPT/ALT 26 U/L (13-61); SODIUM 138 mmol/L (136-145); TOT PROT 6.6 g/dl (6.4-8.2)
[2018-04-10 07:16] VITALS: BP 115/59; PULSE 62; TEMP 97.5
--- NOTE | 2018-04-10 07:44 | PDOC ---
*Physical Exam - Vital Signs Last Vital Signs Temp Pulse Resp BP Pulse Ox 97.5 F L 62 18 115/59 L 97 04/10/18 07:14 04/10/18 07:14 04/10/18 07:19 04/10/18 07:14 04/10/18 07:19 <Thierno Conde - Last Filed: 04/10/18 13:36> - Vital Signs Last Vital Signs Temp Pulse Resp BP Pulse Ox 97.5 F L 62 18 115/59 L 97 04/10/18 07:14 04/10/18 07:14 04/10/18 07:19 04/10/18 07:14 04/10/18 07:19 - Physical Exam Comments: 04/10/18 08:16 GENERAL: Awake, alert, and fully oriented, in no acute distress HEAD: No signs of trauma, normocephalic, atraumatic EYES: PERRLA, EOMI, sclera anicteric, conjunctiva clear ENT: Hearing grossly normal, nares patent, oropharynx clear without exudates. Moist mucosa NECK: Normal ROM, supple, no lymphadenopathy, JVD, or masses LUNGS: No distress, speaks full sentences, clear to auscultation bilaterally HEART: Regular rate and rhythm, normal S1 and S2, no murmurs, rubs or gallops, peripheral pulses normal and equal bilaterally. ABDOMEN: Distended and tympanitici to percussion. Soft, nontender. No guarding , no rebound. No masses EXTREMITIES : Normal inspection, Normal range of motion, no edema. No clubbing or cyanosis. SKIN: Warm, Dry, normal turgor, no rashes or lesions noted <Mason Mariscal - Last Filed: 04/10/18 13:38> ED Treatment Course - LABORATORY CBC & Chemistry Diagram: 04/10/18 06:00 04/10/18 06:00 - ADDITIONAL ORDERS Additional order review: Laboratory Results 04/10/18 04/10/18 04/10/18 09:00 09:00 06:00 PT with INR INR PTT (Actin FS) Sodium Potassium Chloride Carbon Dioxide Anion Gap BUN Creatinine Creat Clearance w eGFR Random Glucose Calcium Magnesium Total Bilirubin AST ALT Alkaline Phosphatase Troponin I 0.02 Total Protein Albumin Urine Color Ltyellow Urine Appearance Clear Urine pH 5.0 Ur Specific Monson 1.013 Urine Protein Negative Urine Glucose (UA) Negative Urine Ketones Negative Urine Blood Negative Urine Nitrite Negative Urine Bilirubin Negative Urine Urobilinogen Negative Ur Leukocyte Esterase Negative Blood Type O POSITIVE Antibody Screen Negative 04/10/18 04/10/18 06:00 06:00 PT with INR 13.80 H INR 1.17 H PTT (Actin FS) 30.3 Sodium 138 Potassium 4.3 Chloride 97 L Carbon Dioxide 36 H Anion Gap 5 L BUN 76 H Creatinine 2.3 H Creat Clearance w eGFR 27.10 Random Glucose 149 H Calcium 8.3 L Magnesium 2.5 H Total Bilirubin 0.4 AST 18 ALT 26 Alkaline Phosphatase 82 Troponin I Total Protein 6.6 Albumin 3.4 Urine Color Urine Appearance Urine pH Ur Specific Monson Urine Protein Urine Glucose (UA) Urine Ketones Urine Blood Urine Nitrite Urine Bilirubin Urine Urobilinogen Ur Leukocyte Esterase Blood Type Antibody Screen 04/10/18 06:00 RBC 3.87 L MCV 91.5 MCHC 33.7 RDW 17.5 H MPV 7.5 D Neutrophils % 59.8 Lymphocytes % 21.1 Monocytes % 13.8 H Eosinophils % 3.9 Basophils % 1.4 <Thierno Conde - Last Filed: 04/10/18 13:36> - LABORATORY CBC & Chemistry Diagram: 04/10/18 06:00 04/10/18 06:00 - ADDITIONAL ORDERS Additional order review: Laboratory Results 04/10/18 04/10/18 04/10/18 06:00 06:00 06:00 PT with INR 13.80 H INR 1.17 H PTT (Actin FS) 30.3 Sodium 138 Potassium 4.3 Chloride 97 L Carbon Dioxide 36 H Anion Gap 5 L BUN 76 H Creatinine 2.3 H Creat Clearance w eGFR 27.10 Random Glucose 149 H Calcium 8.3 L Magnesium 2.5 H Total Bilirubin 0.4 AST 18 ALT 26 Alkaline Phosphatase 82 Total Protein 6.6 Albumin 3.4 Blood Type O POSITIVE Antibody Screen Negative 04/10/18 06:00 RBC 3.87 L MCV 91.5 MCHC 33.7 RDW 17.5 H MPV 7.5 D Neutrophils % 59.8 Lymphocytes % 21.1 Monocytes % 13.8 H Eosinophils % 3.9 Basophils % 1.4 <Mason Mariscal - Last Filed: 04/10/18 13:38> Medical Decision Making - Medical Decision Making 04/10/18 13:36 Clinically at baseline, comfortable breathing on baseline oxygen levels, workup and imaging without acute pathology. Worked with family, company has repaired his oxygen machine and it is functional, they will accompany him home. Plan discussed with care team, all agree and understand return criteria. <Thierno Conde - Last Filed: 04/10/18 13:36> - Medical Decision Making 04/10/18 07:38 87 yo M with h/o DM, CKD-IV, ASHD, CABG, Extensive Pleural Dz., JUAN, who p/w SOB , lethargy, O2 equipment failure. Received signout from Dr. Castillo. Patient with O2 tank malfunction this AM x 1 hour. 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 Once placed back on O2, patient mental status improved. O2 currently 97% on 3 L NC. No evidence of resp distress. Noted to be distended, tympanic, hyperactive bowel sounds on physical exam. Abdomen RAD with distended bowel. Pending CT PO CONTRAST r/o SBO. Currently not endorsed abdominal pain. Labs unremarkable. ED Course: Son attempting to retrieve new oxygen tank from [employer]. 04/10/18 10:49 CT AP: No evidence of bowel dilation, pneumoperitoneum, obstruction. Unremarkable 04/10/18 10:[address] Moseley answering service. Awaiting call back. Patient endorsed to Dr. Moseley. Agrees with dispo home. attempted to contact social work. Unable to leave message ([phone]), due to full messaging system 04/10/18 10:12 second attempt overhead page 04/10/18 11:56 third attempt at contacting . 04/10/18 13:23 Left buttock dressing changed in pharm Left buttock lesion with absent drainage/discharge. Packing in place. Patient home O2 equipment repaired per patient family Stable for d/c with return precautions <Mason Mariscal - Last Filed: 04/10/18 13:38> *DC/Admit/Observation/Transfer <Thierno Conde - Last Filed: 04/10/18 13:36> - Attestations Physician Attestion: 04/10/18 10:50 I attest to the information provided in this note. <Mason Mariscal - Last Filed: 04/10/18 13:38> Diagnosis at time of Disposition: Low blood pressure reading - Discharge Dispostion Condition at time of disposition: Stable - Referrals Referrals: Sunil Moseley MD [Primary Care Provider] - - Patient Instructions Printed Discharge Instructions: DI for Hypotension Additional Instructions: Please return to the emergency department with any new or worsening symptoms or concerns. Please follow up with your primary care physician within 72 hours. - Post Discharge Activity
[2018-04-10 09:20] LABS: URINE APPEARANCE CLEAR; URINE BILIRUBIN NEGATIVE (<2.0 mg/dL); URINE COLOR LTYELLOW; URINE GLUCOSE (UA) NEGATIVE (NEGATIVE); URINE KETONE NEGATIVE (NEGATIVE); URINE LEUK ESTERASE NEGATIVE (NEGATIVE); URINE NITRITE NEGATIVE (NEGATIVE); URINE PROTEIN NEGATIVE (NEGATIVE); URINE UROBILINOGEN NEGATIVE mg/dL (0.2-1.0)
--- NOTE | 2018-04-10 11:08 | EKG ---
Test Reason : Blood Pressure : / mmHG Vent. Rate : 064 BPM Atrial Rate : 441 BPM P-R Int : 000 ms QRS Dur : 112 ms QT Int : 434 ms P-R-T Axes : 000 -26 149 degrees QTc Int : 447 ms ATRIAL FIBRILLATION NONSPECIFIC T WAVE ABNORMALITY ABNORMAL ECG WHEN COMPARED WITH ECG OF 30-MAR-2018 18:25, NO SIGNIFICANT CHANGE WAS FOUND Confirmed by JOESPH JOHNSON MD ([id number]) on 04/10/2018 11:08:12 AM Referred By: Confirmed By:JOESPH JOHNSON MD
[2018-04-10 12:37] LABS: PLATELET ESTIMATE ADEQUATE
== END 2018-04-10 13:30 | disposition home or self-care (01) ==
LOC: JER 04:30
DX: I95.9 Hypotension, unspecified (principal); R09.02 Hypoxemia; Z99.81 Dependence on supplemental oxygen; I13.10 Hypertensive heart and chronic kidney disease without heart failure, with stage 1 through stage 4 chronic kidney disease, or unspecified chronic kidney disease; I50.9 Heart failure, unspecified; I25.10 Atherosclerotic heart disease of native coronary artery without angina pectoris; E11.22 Type 2 diabetes mellitus with diabetic chronic kidney disease; N18.4 Chronic kidney disease, stage 4 (severe); Z95.1 Presence of aortocoronary bypass graft; Z79.4 Long term (current) use of insulin; G47.33 Obstructive sleep apnea (adult) (pediatric); J44.9 Chronic obstructive pulmonary disease, unspecified; L98.419 Non-pressure chronic ulcer of buttock with unspecified severity; Z90.5 Acquired absence of kidney
CPT/HCPCS: 36415; 71045-TC-FY; 74018-TC-FY; 74176-TC; 80053; 81003; 83735; 84484; 85025; 85610; 85730; 86850; 86900; 86901; 93005; 93010; 99283-25; Q9967

== ENCOUNTER 2018-04-27 10:29 | Inpatient (IN) | payer OTHER ==
--- NOTE | 2018-04-27 10:39 | PDOC ---
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 He is permanently on 3.5 L Oxygen at home permanently but this morning was experiencing respiratory distress despite being on the Bipap machine at home so the family called EMS. When EMS arrived he was desaturated into the 70s and BP was hypotensive to 90/50. The patient admits to having SOB and significant leg swelling which is not new for him but otherwise no complaints. He denies chest pain, back pain, fevers, chills, infections, dysuria, frequency , urgency, headache, nausea, vomiting, weakness, numbness, tingling or chills. PCP: Dr. Moseley Allergies: NKDA, NKA Surgical: CABG, nephrectomy Social Hx: lifetime non-smoker, denies alcohol or other substances Past History - Past Medical History Allergies/Adverse Reactions: Allergies Allergy/AdvReac Type Severity Reaction Status Date / Time No Known Allergies Allergy Verified 04/27/18 11:04 Home Medications: Ambulatory Orders Pravastatin Sodium [Pravachol -] 40 mg PO DAILY 10/12/14 Sitagliptin Phosphate [Januvia -] 25 mg PO DAILY@0700 #90 tab 10/14/14 Ipratropium 0.02% Nebulizer [Atrovent 0.02% Nebulizer -] 0.5 mg IH PRN 03/21/17 Spironolactone [Aldactone -] 25 mg PO DAILY #30 tablet 03/31/17 Aspirin 81 mg PO DAILY 04/10/17 Insulin Glargine,Hum.rec.anlog [Lantus] 60 unit SQ DAILY 04/10/17 Febuxostat [Uloric] 40 mg PO DAILY 02/20/18 Levothyroxine [Synthroid -] 0.05 mg PO DAILY 02/20/18 Linaclotide [Linzess] 290 mcg PO DAILY 02/20/18 Metoprolol Succinate [Toprol Xl] 50 mg PO BID 02/20/18 Apixaban [Eliquis -] 2.5 mg PO BID 03/30/18 Acetaminophen [Tylenol .Extra-Strength -] 500 mg PO Q6H PRN tablet 04/06/18 Clindamycin [Cleocin -] 300 mg PO TID 5 Days #14 capsule 04/06/18 Furosemide 80 mg PO BIDLASIX #120 tablet 04/06/18 Valacyclovir HCl [Valtrex -] 500 mg PO BID tablet 04/06/18 Colchicine [Mitigare] 0.6 mg PO BID 04/10/18 Anemia: No Asthma: No Cancer: No Cardiac Disorders: Yes CVA: No COPD: Yes CHF: Yes Dementia: Yes (mild) Diabetes: Yes GI Disorders: No Disorders: No HTN: Yes Hypercholesterolemia: Yes Liver Disease: No Seizures: No Thyroid Disease: No Lung CA: No (MESOTHELIOMA) - Surgical History Abdominal Surgery: No Appendectomy: No Cardiac Surgery: Yes (CABG) Cholecystectomy: No Lung Surgery: No Neurologic Surgery: No Orthopedic Surgery: No - Immunization History Immunization Up to Date: Yes - Suicide/Smoking/Psychosocial Hx Smoking History: Former smoker Have you smoked in the past 12 months: No If you are a former smoker, when did you quit?: 30 YRS AGO Hx Alcohol Use: No Drug/Substance Use Hx: No Substance Use Type: None Hx Substance Use Treatment: No Review of Systems - Review of Systems Able to Perform ROS?: Yes Constitutional: Yes: Weakness. No: Chills, Diaphoresis, Fever, Loss of Appetite HEENTM: No: Blurred Vision, Double Vision Respiratory: Yes: Cough, Orthopnea, Shortness of Breath, SOB with Exertion, SOB at Rest. No: Stridor, Wheezing, Productive cough, Hemoptysis Cardiac (ROS): Yes: Edema, Irregular Heart Rate, Lightheadedness, Palpitations. No: Chest Pain, Syncope, Chest Tightness ABD/GI: No: Abdominal Distended, Blood Streaked Bowels, Constipated, Diarrhea, Nausea, Poor Appetite, Poor Fluid Intake, Rectal Bleeding, Vomiting : No: Burning, Dysuria, Discharge Musculoskeletal: No: Back Pain, Gout, Joint Pain Integumentary: Yes: Change in Color, Dryness, Rash (left buttock). No: Flushing , Lesions, Lumps Neurological: Yes: Unsteady Gait. No: Headache, Numbness, Paresthesia, Seizure , Tingling Psychiatric: No: Anxiety, Depression, Stressors Endocrine: No: Excessive Sweating, Flushing Hematologic/Lymphatic: Yes: Easy Bleeding. No: Blood Clots *Physical Exam - Physical Exam General Appearance: Yes: Nourished, Appropriately Dressed, Apparent Distress, Obese HEENT: positive: EOMI, STACEY, Normal ENT Inspection, Normal Voice Neck: positive: Trachea midline, Supple. negative: Rigid, Decreased range of motion Respiratory/Chest: positive: Labored Respiration, Rapid RR, Decreased Breath Sounds, Crackles, Rales, Dullness. negative: Chest Tender, Lungs Clear ( bilaterall crackles at the bases. Decreased breath sounds. ), Rhonchi, Stridor, Wheezing, Hyperresonant Cardiovascular: positive: Regular Rate, S1, S2, Irregularly Irregular. negative : Regular Rhythm, JVD Vascular Pulses: Dorsalis-Pedis (R): 1+, Doralis-Pedis (L): 1+ Gastrointestinal/Abdominal: positive: Normal Bowel Sounds, Soft. negative: Distended, Guarding, Rebound Male Genitalia: positive: normal genitalia. negative: discharge, testicular tenderness, epididymus tender, hernia, hematuria Rectal Exam: positive: deferred Lymphatic: negative: Adenopathy Musculoskeletal: positive: Normal Inspection, Decreased Range of Motion. negative: CVA Tenderness Extremity: positive: Normal Capillary Refill, Normal Inspection, Pedal Edema, Swelling. 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 He is permanently on 3.5 L Oxygen at home permanently but this morning was experiencing respiratory distress despite being on the Bipap machine at home so the family called EMS. When EMS arrived he was desaturated into the 70s and BP was hypotensive to 90/50. The patient admits to having SOB and significant leg swelling which is not new for him but otherwise no complaints. Tachypneic and hypoxic DDx IBNLT: CHF vs COPD exacerbation, restrictive lung disease, ACS/MT, HHNS, PNA , pneumothorax, lung cancer Plan: Labs, Urine, ECHO, EKG, CXR, BiPap, Re-assess. Bedside ECHO showed B lines on the right suggestive of right sided pleural effusion, possibly secondary to either PNA or chronic fluid in lung secondary to asbestosis. Given lack of bilateral pleural effusion this appears to be more of a restrictive lung disease excaerbation than a CHF episode. Starting treatment for restrictive lung disease exacerbation with Duonebs, BiPap , lasix and Abx - Will Admit patient for further care. Spoke with Dr. Moseley who accepts the admission - Dr. Moseley requested to place consults to Dr. Starkey and Dr. Downey - Both consults placed. *DC/Admit/Observation/Transfer Diagnosis at time of Disposition: Respiratory failure with hypoxia and hypercapnia - Discharge Dispostion Condition at time of disposition: Guarded Decision to Admit order: Yes - Referrals - Patient Instructions - Post Discharge Activity
--- NOTE | 2018-04-27 10:39 | PDOC ---
Attending Attestation - HPI HPI: 04/27/18 11:39 The patient is a 87 year old male with a significant past medical history of CHF , L buttock ulcer, HTN, DM, CAD (s/p CABG) and COPD (3L home O2, non-smoker, 2/ 2 to occupational asbestosis exposure, bipap at night), and unilateral nephrectomy was BIBEMS for acute onset of shortness of breath. As per EMS arrived he was desaturated into the 70s and BP was hypotensive to 90/50. He denies chest pain, back pain, fevers, chills, infections, dysuria, frequency , urgency, headache, nausea, vomiting, weakness, numbness, tingling or chills. PCP: Dr. Moseley Allergies: NKDA, NKA Surgical: CABG, nephrectomy Social Hx: lifetime non-smoker, denies alcohol or other substances - Physicial Exam PE: 04/27/18 11:43 Vitals: Triage vital signs reviewed General Appearance: No acute distress, well nourished, well developed Head: Atraumatic Eyes: Pupils equal reactive round, extraocular movement intact Neck: Supple; No nuchal rigidity Chest Wall: Nontender Cardiac: Regular rate and rhythm, no murmurs, no rubs, no gallops Lungs: (+) course breath sounds, crackles bilaterally. Abdomen: nondistended. Soft, normal bowel sounds, nontender to palpation Extremities: (+) 1+ Pitting edema to bilateral LEs. Full range of motion to all extremities, no cyanosis, clubbing Skin: Warm and dry, no rashes or lesions, no rash, no petechiae Neuro: AOX3; Cranial Nerves 2-12 grossly intact, Strength intact to all extremities, Sensation intact to all extremities, gait normal Psych: Normal mood, normal affect <Lila Wolf - Last Filed: 04/27/18 11:39> - Resident Resident Name: Deangelo Serrano - ED Attending Attestation I have performed the following: I have examined & evaluated the patient, The case was reviewed & discussed with the resident, I agree w/resident's findings & plan, Exceptions are as noted - Medical Decision Making 04/27/18 15:22 The patient is a 87 year old male with a significant past medical history of CHF , L buttock ulcer, HTN, DM, CAD (s/p CABG) and COPD (3L home O2, non-smoker, 2/ 2 to occupational asbestosis exposure, bipap at night), and unilateral nephrectomy was BIBEMS for acute onset of shortness of breath. As per EMS arrived he was desaturated into the 70s and BP was hypotensive to 90/50. After speaking with patient's primary care provider patient's vital signs appear very near his baseline he has a restrictive airway disease his blood pressures are normally in the 90s to 100s His EKG was nonischemic his troponin was negative He is tolerating BiPAP well second ABG pending Given baseline vital signs no active cardiac issues patient does not require telemetry at this time we'll admit to MedSurg per patient's primary care provider will admit to MedSurg for further management. <Fortino Gibson - Last Filed: 04/27/18 15:24> Heart Score/ECG Review - ECG Impressions Comment:: 04/27/18 15:18 EKG performed at 1056 demonstrates likely sinus rhythm no ST elevations septal infarct age indeterminate <Fortino Gibson - Last Filed: 04/27/18 15:24> Attestations - Attestations 04/27/18 11:44 Documentation prepared by Lila Wolf, acting as medical staff services manager for Fortino Gibson MD <Lila Wolf - Last Filed: 04/27/18 11:39>
[2018-04-27 11:20] LABS: VENOUS PC02 96.9 mmHg (38-52); VENOUS PH 7.24 (7.32-7.42); VENOUS PO2 32.5 mmHg (28-48)
[2018-04-27 11:26] LABS: BASO % 0.8 % (0-2.0); EOS % 2.4 % (0-4.5); HEMATOCRIT 33.5 % (35.4-49); HEMOGLOBIN 11.3 GM/dL (11.7-16.9); MCH 31.6 pg (25.7-33.7); MCHC 33.7 g/dl (32.0-35.9); MEAN CELL VOLUME 93.9 fl (80-96); MONO % 13.5 % (3.8-10.2); NEUT % 64.3 % (42.8-82.8); PLATELET COUNT 135 K/MM3 (134-434); RBC 3.57 M/mm3 (4.00-5.60); RDW 18.3 % (11.9-15.9); WHITE BLOOD COUNT 6.4 K/mm3 (4.0-10.0)
[2018-04-27 11:30] LABS: ARTERIAL BLD GAS O2 SATURATION 89.7 % (90-98.9); ARTERIAL BLOOD GAS BASE EXCESS 9.9 meq/l (-2-2); ARTERIAL BLOOD GAS PO2 60.1 mmHg (68-100); ARTERIAL BLOOD GAS pH 7.34 (7.35-7.45); CARBOXYHEMOGLOBIN 1.6 gm% (0.5-2.0)
[2018-04-27 11:33] LABS: ALLENS TEST POSITIVE
[2018-04-27 11:34] LABS: ARTERIAL BLOOD GAS PCO2 72.6 mmHg (35-45)
[2018-04-27 11:49] LABS: ALBUMIN 3.5 g/dl (3.4-5.0); ALK PHOS 62 U/L (45-117); ANION GAP 4 MMOL/L (8-16); BILIRUBIN,TOTAL 0.4 mg/dL (0.2-1); BLOOD UREA NITROGEN 74 mg/dL (7-18); CALCIUM 8.3 mg/dL (8.5-10.1); CHLORIDE 95 mmol/L (98-107); CO2 39 mmol/L (21-32); CREATININE 2.1 mg/dL (0.55-1.3); GLUCOSE,RANDOM 90 mg/dL (74-106); POTASSIUM 4.7 mmol/L (3.5-5.1); SGOT/AST 30 U/L (15-37); SGPT/ALT 32 U/L (13-61); SODIUM 138 mmol/L (136-145); TOT PROT 6.6 g/dl (6.4-8.2)
[2018-04-27 11:53] LABS: INR 1.37 (0.83-1.09); PROTHROMBIN TIME (PATIENT) 16.2 SEC (9.7-13.0)
[2018-04-27 11:56] LABS: ACTIVATED PTT 34.3 SECONDS (25.2-36.5)
[2018-04-27] MEDS ORDERED: ALBUTEROL SO4 2.5/IPRATROPIUM 0.5 INH SOL 3 ML VIAL.NEB. NEB ONE ×2 (12:24→12:36)
[2018-04-27] MEDS ORDERED: AZITHROMYCIN IVPB 500 MG in DEXTROSE 5%-WATER - 250 ML IVPB ONE (12:35)
[2018-04-27] MEDS ORDERED: methylPREDNISolone NA SUCC 125 MG/2 ML VIAL IVPB ONE (12:35)
[2018-04-27] MEDS ORDERED: FUROSEMIDE 40 MG/4 ML INJECTABLE VIAL IVPUSH ONE (13:06)
[2018-04-27] MEDS ORDERED: AZITHROMYCIN IVPB 500 MG/250 ML BAG IVPB ONE (13:33)
[2018-04-27] MEDS ORDERED: FUROSEMIDE 40 MG/4 ML INJECTABLE VIAL ONE (13:34)
[2018-04-27] MEDS: FUROSEMIDE 100 MG/10 ML INJECTABLE VIAL IVPB SCH (14:46)
[2018-04-27 15:23] LABS: ARTERIAL BLD GAS O2 SATURATION 95.7 % (90-98.9); ARTERIAL BLOOD GAS BASE EXCESS 12.6 meq/l (-2-2); ARTERIAL BLOOD GAS PCO2 61.4 mmHg (35-45); ARTERIAL BLOOD GAS PO2 74.6 mmHg (68-100); ARTERIAL BLOOD GAS pH 7.42 (7.35-7.45)
[2018-04-27 15:24] LABS: ALLENS TEST POSITIVE
--- NOTE | 2018-04-27 16:41 | EKG ---
Test Reason : Blood Pressure : / mmHG Vent. Rate : 078 BPM Atrial Rate : 163 BPM P-R Int : 000 ms QRS Dur : 104 ms QT Int : 444 ms P-R-T Axes : 032 -20 195 degrees QTc Int : 506 ms ATRIAL FIBRILLATION SEPTAL INFARCT , AGE UNDETERMINED PROLONGED QT ABNORMAL ECG Confirmed by HARRY BATEMAN MD ([id number]) on 04/27/2018 4:41:09 PM Referred By: Confirmed By:HARRY BATEMAN MD
[2018-04-27] MEDS: INSULIN SLIDING SCALE (NOVOLOG) 1 VIAL SQ SCH ×2 (17:03→21:31)
[2018-04-27] MEDS: valACYclovir HCL 500 MG TABLET (FP) PO SCH (21:18)
[2018-04-27] MEDS: INSULIN (LEVEMIR) 100 UNITS/ML UNITS SQ SCH (21:18)
[2018-04-27] MEDS: APIXABAN 2.5 MG TABLET PO SCH (21:18)
[2018-04-27] MEDS: POLYETHYLENE GLYCOL 3350 119 GM BTL PO SCH (21:19)
[2018-04-27] MEDS ORDERED: COLCHICINE 0.6 MG PO SCH (22:00)
[2018-04-27 23:20] LABS: URINE APPEARANCE CLEAR; URINE BILIRUBIN NEGATIVE (<2.0 mg/dL); URINE COLOR LTYELLOW; URINE GLUCOSE (UA) NEGATIVE (NEGATIVE); URINE KETONE NEGATIVE (NEGATIVE); URINE LEUK ESTERASE 1+ (NEGATIVE); URINE NITRITE NEGATIVE (NEGATIVE); URINE PROTEIN NEGATIVE (NEGATIVE); URINE UROBILINOGEN NEGATIVE mg/dL (0.2-1.0)
[2018-04-27 23:25] LABS: EPI CELLS RARE /HPF (FEW); URINE HYALINE CAST 3 /lpf; URINE MUCUS RARE
[2018-04-28] MEDS: FUROSEMIDE 100 MG/10 ML INJECTABLE VIAL IVPB SCH ×2 (06:36→13:15)
[2018-04-28] MEDS: LEVOTHYROXINE NA 50 MCG TABLET (FP) PO SCH (06:37)
[2018-04-28] MEDS: sitaGLIPtin PHOSPHATE 25 MG TABLET (FP) PO SCH (06:37)
[2018-04-28] MEDS: INSULIN SLIDING SCALE (NOVOLOG) 1 VIAL SQ SCH ×4 (07:10→22:48)
[2018-04-28 07:43] LABS: HEMATOCRIT 32.7 % (35.4-49); HEMOGLOBIN 10.9 GM/dL (11.7-16.9); MCH 30.8 pg (25.7-33.7); MCHC 33.2 g/dl (32.0-35.9); MEAN CELL VOLUME 92.7 fl (80-96); MEAN PLT VOLUME 8.6 fl (7.5-11.1); PLATELET COUNT 154 K/MM3 (134-434); RBC 3.52 M/mm3 (4.00-5.60); RDW 17.7 % (11.9-15.9); WHITE BLOOD COUNT 7.3 K/mm3 (4.0-10.0)
[2018-04-28] MEDS ORDERED: DEXTROSE 50%-WATER - 25 GM/50 ML VIAL IVPUSH ONE (08:02)
--- NOTE | 2018-04-28 08:29 | HP ---
Admitting History and Physical - Admission Chief Complaint: 87 y.o M was sent to The ER due to respiratory distress at home , lethargy, difficulty to be aroused by the family, hypotension. The patient was hospitalized many times to [facility] and is known to pulmonary service for chronic and recurrent acute respiratory failure, bronchiectasis, ILD, JUAN, Home BIPAP support and chronic CO2 retention. He was seen frequently in the office for combined CHF, A. Fib and progressing edema of the LE, CKD and worsening renal function while on diuretics but his condition deteriorated since last hospitalization for MRSA abscess of the buttocks. History of Present Illness: Persistent 6.7cm left basilar atelectasis/consolidation. CABG ASHD. DM type on Levemir/Januvia. CRI/ckd 4. 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 Previous Thoracentesis in the past-neg for malignancy. JUAN-at nights using CPAP. Chronic A.Fib. Combined CHF. Gout. Gouty arthritis. Previous rectal surgery for abscess, fistula at [facility]. 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 History of Recent Travel: No Home Medications - Allergies Allergies/Adverse Reactions: Allergies Allergy/AdvReac Type Severity Reaction Status Date / Time No Known Allergies Allergy Verified 04/27/18 11:04 - Home Medications Home Medications: Ambulatory Orders Pravastatin Sodium [Pravachol -] 40 mg PO DAILY 10/12/14 Sitagliptin Phosphate [Januvia -] 25 mg PO DAILY@0700 #90 tab 10/14/14 Ipratropium 0.02% Nebulizer [Atrovent 0.02% Nebulizer -] 0.5 mg IH PRN 03/21/17 Spironolactone [Aldactone -] 25 mg PO DAILY #30 tablet 03/31/17 Aspirin 81 mg PO DAILY 04/10/17 Insulin Glargine,Hum.rec.anlog [Lantus] 60 unit SQ DAILY 04/10/17 Febuxostat [Uloric] 40 mg PO DAILY 02/20/18 Levothyroxine [Synthroid -] 0.05 mg PO DAILY 02/20/18 Linaclotide [Linzess] 290 mcg PO DAILY 02/20/18 Metoprolol Succinate [Toprol Xl] 50 mg PO BID 02/20/18 Apixaban [Eliquis -] 2.5 mg PO BID 03/30/18 Acetaminophen [Tylenol .Extra-Strength -] 500 mg PO Q6H PRN tablet 04/06/18 Clindamycin [Cleocin -] 300 mg PO TID 5 Days #14 capsule 04/06/18 Furosemide 80 mg PO BIDLASIX #120 tablet 04/06/18 Valacyclovir HCl [Valtrex -] 500 mg PO BID tablet 04/06/18 Colchicine [Mitigare] 0.6 mg PO BID 04/10/18 Family Disease History - Family Disease History Family History: Unremarkable Review of Systems - Review of Systems Constitutional: reports: Lethargy Eyes: reports: No Symptoms HENT: reports: Difficult Swallowing, Nasal Congestion Cardiovascular: reports: Edema, Palpitations, Shortness of Breath. denies: Chest Pain Respiratory: reports: Cough, Exercise Intolerance, SOB, SOB on Exertion Gastrointestinal: denies: Abdominal Pain, Bloating, Constipation Genitourinary: denies: Discharge, Dysuria Breasts: reports: No Symptoms Reported Musculoskeletal: reports: No Symptoms Integumentary: reports: Wound Neurological: reports: Confusion, Unsteady Gait, Weakness Endocrine: reports: Unexplained Weight Gain. denies: Flushing Hematology/Lymphatic: denies: Swollen Glands Psychiatric: reports: Altered Sleep Pattern. denies: Paranoia, Suicidal Physical Examination Vital Signs: Vital Signs Temperature 97.6 F 04/28/18 06:00 Pulse Rate 98 H 04/28/18 06:00 Respiratory Rate 22 H 04/28/18 06:00 Blood Pressure 125/57 L 04/28/18 06:00 O2 Sat by Pulse Oximetry (%) 97 04/28/18 05:45 Findings/Remarks: On BIPAP Constitutional: Yes: Calm, Moderate Distress, Obese Eyes: Yes: Conjunctiva Clear, EOM Intact HENT: Yes: Atraumatic, Normocephalic Neck: Yes: Supple, Trachea Midline Cardiovascular: Yes: Pulse Irregular, Murmur, S1, S2. No: Bradycardia, Tachycardia Respiratory: No: Diminished Gastrointestinal: Yes: Normal Bowel Sounds, Soft, Abdomen, Obese ...Rectal Exam: No: Mass Renal/: No: Anuria, Bladder Distention, CVA Tenderness - Left, CVA Tenderness - Right Breast(s): Yes: WNL Musculoskeletal: No: Back Pain, Joint Stiffness, Joint Swelling Extremities: No: Calf Tenderness, Cold Edema: Yes Edema: LLE: 3+, RLE: 3+ Peripheral Pulses WNL: No Integumentary: Yes: Other ...Motor Strength: WNL Psychiatric: Yes: Alert, Oriented. No: Agitated, Suicidal Ideation Labs: CBC, BMP 04/28/18 06:30 Laboratory Results - last 24 hr 04/27/18 04/27/18 04/27/18 11:00 11:00 11:00 WBC 6.4 RBC 3.57 L Hgb 11.3 L Hct 33.5 L MCV 93.9 MCH 31.6 MCHC 33.7 RDW 18.3 H Plt Count 135 D MPV 9.0 D Absolute Neuts (auto) 4.1 Neutrophils % 64.3 Lymphocytes % 19.0 Monocytes % 13.5 H Eosinophils % 2.4 Basophils % 0.8 Nucleated RBC % 0 PT with INR 16.20 H INR 1.37 H PTT (Actin FS) 34.3 Anticoagulation Therapy No Result Required. Puncture Site Right radial ABG pH 7.34 L ABG pCO2 at Pt Temp 72.6 H* D ABG pO2 at Pt Temp 60.1 L ABG HCO3 38.0 H ABG O2 Sat (Measured) 89.7 L ABG O2 Content 15.1 ABG Base Excess 9.9 H Esteban Test Positive VBG pH POC VBG pCO2 POC VBG pO2 Mixed VBG HCO3 Carboxyhemoglobin 1.6 Methemoglobin 0.3 L O2 Delivery Device No Result Required. Oxygen Flow Rate Yes Vent Mode No Result Required. Vent Rate No Result Required. Mechanical Rate No Result Required. Pressure Support Vent No Result Required. Sodium Potassium Chloride Carbon Dioxide Anion Gap BUN Creatinine Creat Clearance w eGFR POC Glucometer Random Glucose Hemoglobin A1c % Lactic Acid Calcium Phosphorus Magnesium Total Bilirubin AST ALT Alkaline Phosphatase Troponin I Total Protein Albumin Triglycerides Cholesterol Total LDL Cholesterol HDL Cholesterol TSH Urine Color Urine Appearance Urine pH Ur Specific [place] Urine Protein Urine Glucose (UA) Urine Ketones Urine Blood Urine Nitrite Urine Bilirubin Urine Urobilinogen Ur Leukocyte Esterase Urine WBC (Auto) Urine RBC (Auto) Ur Epithelial Cells Hyaline Casts Urine Mucus 04/27/18 04/27/18 04/27/18 11:00 11:00 11:00 WBC RBC Hgb Hct MCV MCH MCHC RDW Plt Count MPV Absolute Neuts (auto) Neutrophils % Lymphocytes % Monocytes % Eosinophils % Basophils % Nucleated RBC % PT with INR INR PTT (Actin FS) Anticoagulation Therapy Puncture Site ABG pH ABG pCO2 at Pt Temp ABG pO2 at Pt Temp ABG HCO3 ABG O2 Sat (Measured) ABG O2 Content ABG Base Excess Esteban Test VBG pH 7.24 L* POC VBG pCO2 96.9 H* D POC VBG pO2 32.5 D Mixed VBG HCO3 40.5 H* Carboxyhemoglobin Methemoglobin O2 Delivery Device Oxygen Flow Rate Vent Mode Vent Rate Mechanical Rate Pressure Support Vent Sodium 138 Potassium 4.7 Chloride 95 L Carbon Dioxide 39 H Anion Gap 4 L BUN 74 H Creatinine 2.1 H Creat Clearance w eGFR 30.09 POC Glucometer Random Glucose 90 Hemoglobin A1c % Lactic Acid 0.8 Calcium 8.3 L Phosphorus Magnesium Total Bilirubin 0.4 AST 30 ALT 32 Alkaline Phosphatase 62 Troponin I Total Protein 6.6 Albumin 3.5 Triglycerides Cholesterol Total LDL Cholesterol HDL Cholesterol TSH Urine Color Urine Appearance Urine pH Ur Specific [place] Urine Protein Urine Glucose (UA) Urine Ketones Urine Blood Urine Nitrite Urine Bilirubin Urine Urobilinogen Ur Leukocyte Esterase Urine WBC (Auto) Urine RBC (Auto) Ur Epithelial Cells Hyaline Casts Urine Mucus 04/27/18 04/27/18 04/27/18 11:00 15:12 16:51 WBC RBC Hgb Hct MCV MCH MCHC RDW Plt Count MPV Absolute Neuts (auto) Neutrophils % Lymphocytes % Monocytes % Eosinophils % Basophils % Nucleated RBC % PT with INR INR PTT (Actin FS) Anticoagulation Therapy No Result Required. Puncture Site Right radial ABG pH 7.42 ABG pCO2 at Pt Temp 61.4 H* ABG pO2 at Pt Temp 74.6 D ABG HCO3 38.9 H ABG O2 Sat (Measured) 95.7 ABG O2 Content 13.7 L ABG Base Excess 12.6 H Esteban Test Positive VBG pH POC VBG pCO2 POC VBG pO2 Mixed VBG HCO3 Carboxyhemoglobin Methemoglobin O2 Delivery Device No Result Required. Oxygen Flow Rate Yes Vent Mode No Result Required. Vent Rate No Result Required. Mechanical Rate No Result Required. Pressure Support Vent No Result Required. Sodium Potassium Chloride Carbon Dioxide Anion Gap BUN Creatinine Creat Clearance w eGFR POC Glucometer 64 Random Glucose Hemoglobin A1c % Lactic Acid Calcium Phosphorus Magnesium Total Bilirubin AST ALT Alkaline Phosphatase Troponin I 0.02 Total Protein Albumin Triglycerides Cholesterol Total LDL Cholesterol HDL Cholesterol TSH Urine Color Urine Appearance Urine pH Ur Specific [place] Urine Protein Urine Glucose (UA) Urine Ketones Urine Blood Urine Nitrite Urine Bilirubin Urine Urobilinogen Ur Leukocyte Esterase Urine WBC (Auto) Urine RBC (Auto) Ur Epithelial Cells Hyaline Casts Urine Mucus 04/27/18 04/27/18 04/27/18 20:50 21:26 22:40 WBC RBC Hgb Hct MCV MCH MCHC RDW Plt Count MPV Absolute Neuts (auto) Neutrophils % Lymphocytes % Monocytes % Eosinophils % Basophils % Nucleated RBC % PT with INR INR PTT (Actin FS) Anticoagulation Therapy Puncture Site ABG pH ABG pCO2 at Pt Temp ABG pO2 at Pt Temp ABG HCO3 ABG O2 Sat (Measured) ABG O2 Content ABG Base Excess Esteban Test VBG pH POC VBG pCO2 POC VBG pO2 Mixed VBG HCO3 Carboxyhemoglobin Methemoglobin O2 Delivery Device Oxygen Flow Rate Vent Mode Vent Rate Mechanical Rate Pressure Support Vent Sodium Potassium Chloride Carbon Dioxide Anion Gap BUN Creatinine Creat Clearance w eGFR POC Glucometer 181 Random Glucose Hemoglobin A1c % Lactic Acid 1.7 Calcium Phosphorus Magnesium Total Bilirubin AST ALT Alkaline Phosphatase Troponin I Total Protein Albumin Triglycerides Cholesterol Total LDL Cholesterol HDL Cholesterol TSH Urine Color Ltyellow Urine Appearance Clear Urine pH 5.0 Ur Specific [place] 1.012 Urine Protein Negative Urine Glucose (UA) Negative Urine Ketones Negative Urine Blood 2+ H Urine Nitrite Negative Urine Bilirubin Negative Urine Urobilinogen Negative Ur Leukocyte Esterase 1+ H Urine WBC (Auto) 37 Urine RBC (Auto) 25 Ur Epithelial Cells Rare Hyaline Casts 3 Urine Mucus Rare 04/28/18 04/28/18 04/28/18 06:30 06:30 06:30 WBC 7.3 RBC 3.52 L Hgb 10.9 L Hct 32.7 L MCV 92.7 MCH 30.8 MCHC 33.2 RDW 17.7 H Plt Count 154 MPV 8.6 Absolute Neuts (auto) Neutrophils % Lymphocytes % Monocytes % Eosinophils % Basophils % Nucleated RBC % PT with INR INR PTT (Actin FS) Anticoagulation Therapy Puncture Site ABG pH ABG pCO2 at Pt Temp ABG pO2 at Pt Temp ABG HCO3 ABG O2 Sat (Measured) ABG O2 Content ABG Base Excess Esteban Test VBG pH POC VBG pCO2 POC VBG pO2 Mixed VBG HCO3 Carboxyhemoglobin Methemoglobin O2 Delivery Device Oxygen Flow Rate Vent Mode Vent Rate Mechanical Rate Pressure Support Vent Sodium 139 Potassium 4.2 Chloride 94 L Carbon Dioxide 42 H Anion Gap 4 L BUN 68 H Creatinine 2.2 H Creat Clearance w eGFR 28.52 POC Glucometer Random Glucose 52 L Hemoglobin A1c % 7.5 H Lactic Acid Calcium 8.6 Phosphorus 2.9 Magnesium 2.8 H Total Bilirubin 0.5 AST 24 ALT 30 Alkaline Phosphatase 63 Troponin I Total Protein 6.7 Albumin 3.5 Triglycerides 137 Cholesterol 139 Total LDL Cholesterol 73 HDL Cholesterol 45 TSH 12.60 H D Urine Color Urine Appearance Urine pH Ur Specific [place] Urine Protein Urine Glucose (UA) Urine Ketones Urine Blood Urine Nitrite Urine Bilirubin Urine Urobilinogen Ur Leukocyte Esterase Urine WBC (Auto) Urine RBC (Auto) Ur Epithelial Cells Hyaline Casts Urine Mucus 04/28/18 04/28/18 06:47 07:09 WBC RBC Hgb Hct MCV MCH MCHC RDW Plt Count MPV Absolute Neuts (auto) Neutrophils % Lymphocytes % Monocytes % Eosinophils % Basophils % Nucleated RBC % PT with INR INR PTT (Actin FS) Anticoagulation Therapy Puncture Site ABG pH ABG pCO2 at Pt Temp ABG pO2 at Pt Temp ABG HCO3 ABG O2 Sat (Measured) ABG O2 Content ABG Base Excess Esteban Test VBG pH POC VBG pCO2 POC VBG pO2 Mixed VBG HCO3 Carboxyhemoglobin Methemoglobin O2 Delivery Device Oxygen Flow Rate Vent Mode Vent Rate Mechanical Rate Pressure Support Vent Sodium Potassium Chloride Carbon Dioxide Anion Gap BUN Creatinine Creat Clearance w eGFR POC Glucometer 47 75 Random Glucose Hemoglobin A1c % Lactic Acid Calcium Phosphorus Magnesium Total Bilirubin AST ALT Alkaline Phosphatase Troponin I Total Protein Albumin Triglycerides Cholesterol Total LDL Cholesterol HDL Cholesterol TSH Urine Color Urine Appearance Urine pH Ur Specific [place] Urine Protein Urine Glucose (UA) Urine Ketones Urine Blood Urine Nitrite Urine Bilirubin Urine Urobilinogen Ur Leukocyte Esterase Urine WBC (Auto) Urine RBC (Auto) Ur Epithelial Cells Hyaline Casts Urine Mucus Imaging - Results Chest X-ray: Report Reviewed Cat Scan: Image Reviewed EKG: Image Reviewed Problem List - Problems (1) ASHD (arteriosclerotic heart disease) Assessment/Plan: IV diuretics Cardiology ECHO Code(s): I25.10 - ATHSCL HEART DISEASE OF [place] CORONARY ARTERY W/O ANG PCTRS (2) Abscess of left buttock Assessment/Plan: Wound care Code(s): L02.31 - CUTANEOUS ABSCESS OF BUTTOCK (3) Acute kidney injury superimposed on CKD Assessment/Plan: Continue f/u of renal fx Code(s): N17.9 - ACUTE KIDNEY FAILURE, UNSPECIFIED; N18.9 - CHRONIC KIDNEY DISEASE, UNSPECIFIED (4) Acute on chronic diastolic CHF (congestive heart failure) Code(s): I50.33 - ACUTE ON CHRONIC DIASTOLIC (CONGESTIVE) HEART FAILURE (5) Acute on chronic respiratory failure with hypoxia and hypercapnia Assessment/Plan: BIPAP, pulmonary consult Code(s): J96.21 - ACUTE AND CHRONIC RESPIRATORY FAILURE WITH HYPOXIA; J96.22 - ACUTE AND CHRONIC RESPIRATORY FAILURE WITH HYPERCAPNIA (6) Acute on chronic systolic (congestive) heart failure Code(s): I50.23 - ACUTE ON CHRONIC SYSTOLIC (CONGESTIVE) HEART FAILURE (7) Pneumonia Assessment/Plan: Iv Zithromax/Ceftriaxone Code(s): J18.9 - PNEUMONIA, UNSPECIFIED ORGANISM Qualifiers: Pneumonia type: due to unspecified organism Laterality: right Lung location: upper lobe of lung Qualified Code(s): J18.1 - Lobar pneumonia, unspecified organism
[2018-04-28 08:32] LABS: ALBUMIN 3.5 g/dl (3.4-5.0); ALK PHOS 63 U/L (45-117); ANION GAP 4 MMOL/L (8-16); BILIRUBIN,TOTAL 0.5 mg/dL (0.2-1); BLOOD UREA NITROGEN 68 mg/dL (7-18); CALCIUM 8.6 mg/dL (8.5-10.1); CHLORIDE 94 mmol/L (98-107); CHOLESTEROL 139 mg/dL (50-200); CO2 42 mmol/L (21-32); CREATININE 2.2 mg/dL (0.55-1.3); GLUCOSE,RANDOM 52 mg/dL (74-106); HDL CHOLESTEROL 45 mg/dL (40-60); MAGNESIUM 2.8 mg/dL (1.8-2.4); PHOSPHOROUS 2.9 mg/dL (2.5-4.9); POTASSIUM 4.2 mmol/L (3.5-5.1); SGOT/AST 24 U/L (15-37); SGPT/ALT 30 U/L (13-61); SODIUM 139 mmol/L (136-145); TOT PROT 6.7 g/dl (6.4-8.2); TRIGLYCERIDES 137 mg/dL (0-150)
[2018-04-28 09:09] LABS: N-TERMINAL BNP 2537.4 pg/ml (5-450)
--- NOTE | 2018-04-28 09:38 | PN ---
Progress Note, Physician Chief Complaint: Well known to me from office and prior hospitalizations: Patient is a poor historian, history is primarily obtained from chart review: 87 y.o M was sent to The ER due to respiratory distress at home, lethargy, difficulty to be aroused by the family, hypotension. The patient was hospitalized many times to [facility] and is known to pulmonary service for chronic and recurrent acute respiratory failure, bronchiectasis, ILD, JUAN, Home BIPAP support and chronic CO2 retention. He was seen frequently in the office for combined CHF, A. Fib and progressing edema of the LE, CKD and worsening renal function while on diuretics but his condition deteriorated since last hospitalization for MRSA abscess of the buttocks. PMH: Persistent 6.7cm left basilar atelectasis/consolidation. CABG ASHD. DM type on Levemir/Januvia. CRI/ckd 4. 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 Previous Thoracentesis in the past-neg for malignancy. JUAN-at nights using CPAP. Chronic A.Fib. Combined CHF, chronic systolic Gout. Previous rectal surgery for abscess, fistula at [facility]. On limited ROS, denies CP but endorses increased PEARSON. - Current Medication List Current Medications: Active Medications Apixaban (Eliquis -) 2.5 mg PO BID [facility] Last Admin: 04/27/18 21:18 Dose: 2.5 mg Aspirin (Asa -) 81 mg PO DAILY [facility] Atorvastatin Calcium (Lipitor -) 10 mg PO HS [facility] Colchicine (Colcrys -) 0.6 mg PO DAILY [facility] Dextrose (D50w (Vial) -) 25 gm IVPUSH NOW ONE Stop: 04/28/18 08:03 Febuxostat (Uloric -) 40 mg PO DAILY [facility] Furosemide (Lasix Injection -) 80 mg IVPB BID@0600,1400 [facility] Last Admin: 04/28/18 06:36 Dose: 80 mg Ceftriaxone Sodium 1 gm/ (Dextrose) 50 mls @ 100 mls/hr IVPB DAILY [facility] Insulin Aspart (Novolog Vial Sliding Scale -) 1 vial SQ ACHS [facility]; Protocol Last Admin: 04/28/18 07:10 Dose: Not Given Insulin Detemir (Levemir Vial) 30 units SQ BID [facility] Last Admin: 04/27/18 21:18 Dose: 30 units Levothyroxine Sodium (Synthroid -) 50 mcg PO ACBK [facility] Last Admin: 04/28/18 06:37 Dose: 50 mcg Metoprolol Succinate (Toprol Xl -) 50 mg PO BID [facility] Last Admin: 04/27/18 21:18 Dose: 50 mg Non-Formulary Medication (Linaclotide [Linzess]) 290 mcg PO DAILY [facility] Polyethylene Glycol (Miralax (For Daily Use) -) 17 gm PO BID [facility] Last Admin: 04/27/18 21:19 Dose: 17 mg Sitagliptin Phosphate (Januvia -) 25 mg PO DAILY@0700 [facility] Last Admin: 04/28/18 06:37 Dose: 25 mg Spironolactone (Aldactone -) 25 mg PO DAILY [facility] Valacyclovir HCl (Valtrex -) 500 mg PO BID [facility] Last Admin: 04/27/18 21:18 Dose: 500 mg - Objective Vital Signs: Vital Signs Temperature 97.6 F 04/28/18 06:00 Pulse Rate 98 H 04/28/18 06:00 Respiratory Rate 22 H 04/28/18 06:00 Blood Pressure 125/57 L 04/28/18 06:00 O2 Sat by Pulse Oximetry (%) 96 04/28/18 09:34 Constitutional: Yes: Anxious Eyes: Yes: Conjunctiva Clear Cardiovascular: Yes: Pulse Irregular Respiratory: Yes: Other (scattered rhonchi, expiratory/ generalized decreased breath sounds bilaterally Noactive wheezing) Gastrointestinal: Yes: Soft (NT), Abdomen, Obese Edema: Yes Edema: LLE: 1+, RLE: 1+ Neurological: Yes: Alert ...Motor Strength: WNL Labs: CBC, BMP 04/28/18 06:30 04/28/18 06:30 INR, PTT INR 1.37 (0.83-1.09) H 04/27/18 11:00 - ....Imaging Cat Scan: Report Reviewed (new RUL infiltrate), Image Reviewed Problem List - Problems (1) Pneumonia Code(s): J18.9 - PNEUMONIA, UNSPECIFIED ORGANISM Qualifiers: Pneumonia type: due to unspecified organism Laterality: right Lung location: upper lobe of lung Qualified Code(s): J18.1 - Lobar pneumonia, unspecified organism (2) Respiratory failure with hypoxia and hypercapnia Code(s): J96.91 - RESPIRATORY FAILURE, UNSPECIFIED WITH HYPOXIA; J96.92 - RESPIRATORY FAILURE, UNSPECIFIED WITH HYPERCAPNIA Qualifiers: Chronicity: acute on chronic Qualified Code(s): J96.21 - Acute and chronic respiratory failure with hypoxia; J96.22 - Acute and chronic respiratory failure with hypercapnia (3) ASHD (arteriosclerotic heart disease) Code(s): I25.10 - ATHSCL HEART DISEASE OF [place] CORONARY ARTERY W/O ANG PCTRS (4) Acute kidney injury superimposed on CKD Code(s): N17.9 - ACUTE KIDNEY FAILURE, UNSPECIFIED; N18.9 - CHRONIC KIDNEY DISEASE, UNSPECIFIED (5) Acute on chronic diastolic CHF (congestive heart failure) Code(s): I50.33 - ACUTE ON CHRONIC DIASTOLIC (CONGESTIVE) HEART FAILURE (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 - OTHER SPECIFIED PLEURAL CONDITIONS (7) Atrial fibrillation Code(s): I48.91 - UNSPECIFIED ATRIAL FIBRILLATION Qualifiers: Atrial fibrillation type: chronic Qualified Code(s): I48.2 - Chronic atrial fibrillation (8) DM type 2 (diabetes mellitus, type 2) Code(s): E11.9 - TYPE 2 DIABETES MELLITUS WITHOUT COMPLICATIONS Qualifiers: Chronic kidney disease stage: stage 3 (moderate) (9) Hypoxemia Code(s): R09.02 - HYPOXEMIA (10) Morbid obesity Code(s): E66.01 - MORBID (SEVERE) OBESITY DUE TO EXCESS CALORIES (11) Sleep apnea Code(s): G47.30 - SLEEP APNEA, UNSPECIFIED Qualifiers: Sleep apnea type: unspecified type Qualified Code(s): G47.30 - Sleep apnea , unspecified Assessment/Plan IMP: Acute on chronic respiratory failure, PNA Asbestos lung dz/ ILD JUAN 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 NIPPV/ Supplimental O2/ Abx as per PMD, Pulmonary 2. Agree with IV Lasix as patient is mildly volume overloaded and will be receiving extra volume ( IV abx, steroids) 3. Cont Anticoagulation for AF, currently rate controlled on Metoprolol. 4. Hold BETTY/ARB (CKD); on Aldactone. 5. PHTN is secondary to combination of left sided disease (decreased LVEF, diastolic dysfx and chronic lung dz- no specific therapy indicated other than treating underlying primary disease to best degree possible). Will follow
[2018-04-28] MEDS ORDERED: PATIENT'S OWN MEDICATION (NON-FORMULARY) (Linaclotide [Linzess] 290 MCG) PO SCH (10:00)
[2018-04-28] MEDS: APIXABAN 2.5 MG TABLET PO SCH ×2 (10:00→22:04)
[2018-04-28] MEDS: COLCHICINE 0.6 MG TABLET (FP) PO SCH (10:00)
[2018-04-28] MEDS: POLYETHYLENE GLYCOL 3350 119 GM BTL PO SCH ×2 (10:00→22:48)
[2018-04-28] MEDS: ASPIRIN 81 MG CHEWABLE TABLETS PO SCH (10:00)
[2018-04-28] MEDS ORDERED: INSULIN GLARGINE HUM REC ANLOG 60 UNIT SQ SCH (10:00)
[2018-04-28] MEDS: SPIRONOLACTONE 25 MG TABLET (FP) PO SCH (10:00)
[2018-04-28] MEDS: INSULIN (LEVEMIR) 100 UNITS/ML UNITS SQ SCH ×2 (10:00→22:48)
[2018-04-28] MEDS: valACYclovir HCL 500 MG TABLET (FP) PO SCH ×2 (10:00→22:04)
[2018-04-28] MEDS ORDERED: [UNRECOGNIZED DRUG - OTHER] SQ SCH (10:00)
[2018-04-28] MEDS: FEBUXOSTAT 40 MG TAB PO SCH (10:13)
[2018-04-28] MEDS ORDERED: cefTRIAXone SODIUM 1 GM VIAL ONE (12:58)
[2018-04-28] MEDS ORDERED: DEXTROSE 5%-WATER - 50 ML IVPB ONE (12:58)
[2018-04-28] MEDS: CEFTRIAXONE 1 GM in DEXTROSE 5%-WATER - 50 ML IVPB SCH (13:14)
--- NOTE | 2018-04-28 13:30 | ECHO ---
Name: LONI VICKERS Exam:Adult Echocardiogram Study Date: 04/28/2018 11:31 AM Age: 87 yrs Reason For Study: CHF Height: 67 in Weight: 245 lb BSA: 2.2 m2 MMode/2D Measurements & Calculations IVSd: 1.3 cm Ao root diam: 3.4 cm LVIDd: 3.8 cm LA dimension: 4.4 cm LVIDs: 2.6 cm LVPWd: 1.7 cm LVPWs: 1.9 cm EDV(Teich): 63.3 ml ESV(Teich): 25.2 ml LVOT diam: 2.0 cm TAPSE: 1.3 cm RV S Salo: 9.9 cm/sec Doppler Measurements & Calculations Ao V2 max: 169.7 cm/sec LV V1 max P.2 mmHg Ao max P.9 mmHg LV V1 max: 73.2 cm/sec DIONE(V,D): 1.3 cm2 TR max salo: 266.7 cm/sec PA V2 max: 93.7 cm/sec TR max P.8 mmHg PA max P.5 mmHg PI end-d salo: 184.7 cm/sec Med Peak E' Salo: 7.6 cm/sec Lat Peak E' Salo: 7.8 cm/sec Procedure The study was technically difficult with many images being suboptimal in quality. Left Ventricle Although wall motion is not well seen, left ventricular systolic function appears grossly preserved, perhaps mildly reduced. Ejection Fraction = 45-50%. Regional wall motion abnormalities cannot be excluded due to limited visualization. Right Ventricle The right ventricle is grossly normal size. The right ventricular systolic function is grossly normal . Atria The left atrium is mildly dilated. Right atrial size is normal. Mitral Valve There is moderate mitral annular calcification. There is no mitral valve stenosis. There is trace to mild mitral regurgitation. Tricuspid Valve The tricuspid valve is not well visualized. There is mild to moderate tricuspid regurgitation. Right ventricular systolic pressure is elevated at 40-50mmHg. There is moderate pulmonary hypertension. Aortic Valve There is moderate to severe aortic valve thickening. The aortic valve leaflets are not well visualize d. They do appear to have reduced excursion and at least mild aortic stenosis is present with a peak gradient of 20mmHg, which may be underestimated. No aortic regurgitation is present. Pulmonic Valve The pulmonic valve is not well seen, but is grossly normal. Great Vessels The aortic root is normal size. Pericardium/Pleura There is no pericardial effusion. Interpretation Summary The study was technically difficult with many images being suboptimal in quality. Regional wall motion abnormalities cannot be excluded due to limited visualization. Although wall motion is not well seen, left ventricular systolic function appears grossly preserved, perhaps mildly reduced. Ejection Fraction = 45-50%. The right ventricle is grossly normal size. The right ventricular systolic function is grossly normal. The left atrium is mildly dilated. There is moderate mitral annular calcification. There is mild to moderate tricuspid regurgitation. Right ventricular systolic pressure is elevated at 40-50mmHg. There is moderate pulmonary hypertension. There is moderate to severe aortic valve thickening. The aortic valve leaflets are not well visualized. They do appear to have reduced excursion and at le ast mild aortic stenosis is present with a peak gradient of 20mmHg, which may be underestimated. There is no pericardial effusion. MD Adams *Lalito 04/28/2018 01:29 PM
--- NOTE | 2018-04-28 14:03 | PN ---
Progress Note (short form) - Note Progress Note: PULMONARY CONSULTATION DICTATED 04/28/18 IMP ACUTE ON CHRONIC HYPOXEMIC/HYPERCAPNEIC RESPIRATORY FAILURE RUL PNEUMONIA ACUTE ON CHRONIC CHF ADVANCED COPD O2 DEPENDENT,NOCTURNAL BIPAP AFIB RECENT MRSA BUTTOCK ABSCESS ASHD S/P CAB GOUT CKD JUAN PLAN IV LASIX ABX CULTURES O2 NIPPV NEEDED F/U ABGS F/U CHEST X-RAY DAILY WT STRICT I+Os MONITOR LYES,RENAL FUNCTION DR HERNANDEZ Problem List - Problems (1) CKD (chronic kidney disease) Code(s): N18.9 - CHRONIC KIDNEY DISEASE, UNSPECIFIED (2) Pneumonia Code(s): J18.9 - PNEUMONIA, UNSPECIFIED ORGANISM Qualifiers: Pneumonia type: due to unspecified organism Laterality: right Lung location: upper lobe of lung Qualified Code(s): J18.1 - Lobar pneumonia, unspecified organism (3) ASHD (arteriosclerotic heart disease) Code(s): I25.10 - ATHSCL HEART DISEASE OF [place] CORONARY ARTERY W/O ANG PCTRS (4) Acute on chronic diastolic CHF (congestive heart failure) Code(s): I50.33 - ACUTE ON CHRONIC DIASTOLIC (CONGESTIVE) HEART FAILURE (5) Acute on chronic respiratory failure with hypoxia and hypercapnia Code(s): J96.21 - ACUTE AND CHRONIC RESPIRATORY FAILURE WITH HYPOXIA; J96.22 - ACUTE AND CHRONIC RESPIRATORY FAILURE WITH HYPERCAPNIA (6) Acute on chronic systolic (congestive) heart failure Code(s): I50.23 - ACUTE ON CHRONIC SYSTOLIC (CONGESTIVE) HEART FAILURE (7) Asbestos pleurisy Code(s): J94.8 - OTHER SPECIFIED PLEURAL CONDITIONS (8) Atrial fibrillation Code(s): I48.91 - UNSPECIFIED ATRIAL FIBRILLATION Qualifiers: Atrial fibrillation type: chronic Qualified Code(s): I48.2 - Chronic atrial fibrillation (9) CAD (coronary artery disease) Code(s): I25.10 - ATHSCL HEART DISEASE OF [place] CORONARY ARTERY W/O ANG PCTRS Qualifiers: Coronary Disease-Associated Artery/Lesion type: bypass graft, autologous artery Associated angina: without angina Qualified Code(s): I25.810 - Atherosclerosis of coronary artery bypass graft(s) without angina pectoris (10) CHF, acute on chronic Code(s): I50.9 - HEART FAILURE, UNSPECIFIED (11) COPD with acute exacerbation Code(s): J44.1 - CHRONIC OBSTRUCTIVE PULMONARY DISEASE W (ACUTE) EXACERBATION (12) DM type 2 (diabetes mellitus, type 2) Code(s): E11.9 - TYPE 2 DIABETES MELLITUS WITHOUT COMPLICATIONS Qualifiers: Chronic kidney disease stage: stage 3 (moderate) (13) HTN (hypertension) Code(s): I10 - ESSENTIAL (PRIMARY) HYPERTENSION (14) Leg swelling Code(s): M79.89 - OTHER SPECIFIED SOFT TISSUE DISORDERS (15) Pulmonary hypertension Code(s): I27.20 - PULMONARY HYPERTENSION, UNSPECIFIED (16) Sleep apnea Code(s): G47.30 - SLEEP APNEA, UNSPECIFIED Qualifiers: Sleep apnea type: unspecified type Qualified Code(s): G47.30 - Sleep apnea , unspecified
[2018-04-28] MEDS: ATORVASTATIN CA 10 MG TABLET (FP) PO SCH (22:04)
--- NOTE | 2018-04-28 23:25 | CONS ---
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 Apparently, according to the family, he was doing well until yesterday when he started developing increasing respiratory distress, low- grade temperature and lethargy. Admitted to the emergency room with above. In the ER , he underwent CT of the chest which revealed a new right upper lobe infiltrate. He was also noted to be in [id number] hypercapnic hypoxic respiratory failure with a PCO2 of 72, subsequent PCO2 of 96. Patient was placed on deep BiPAP and transferred to medical floor for management. He was started on Lasix as well as IV antibiotics, inhaled bronchodilators, and BiPAP. 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 There is no history of DVT or PE in the past. PAST MEDICAL HISTORY: Again, includes ASHD status post CABG, permanent atrial fibrillation, advanced COPD on home O2 with chronic hypoxemic hypercapneic respiratory failure, history of occupational exposures to asbestos, progressive pleural disease, status post left buttock abscess, hypertension, CHF, diabetes, and obstructive sleep apnea, history of nephrectomy. REVIEW OF SYSTEMS: Not obtained at this time. CURRENT MEDICATIONS: Include ceftriaxone, Eliquis, Colcrys, Uloric, Toprol, MiraLax, Januvia, Lipitor, NovoLog, Levemir, Lasix, Aldactone, aspirin, Valtrex , and Synthroid. PHYSICAL EXAMINATION: General: The patient is an elderly male, wide awake, alert, on BiPAP, currently appears comfortable. Vital Signs: He is currently afebrile. T-max is 98.5. Blood pressure is 121/ 68. Respiratory rate is 18. O2 saturation is 96% on BiPAP. HEENT: His head is normocephalic, atraumatic. Neck: Supple. Heart: Irregularly irregular, S1, S2. Chest: Scattered bilateral rhonchi. Abdomen: Soft. Bowel sounds are positive. Extremities: Bilateral lower extremity edema. LABORATORY: Blood gas initial: 7.34. PCO2 is 76, a PO2 of 60, bicarbonate of 38, and a saturation of 89. Subsequent venous blood gas: 7.24, PCO2 of 96, a PO2 of 32, bicarbonate 40. Most recent on unknown quantity of oxygen: 7.42, PCO2 of 61, a PO2 of 74, bicarbonate 38 and saturation of 95. Chemistries: BUN 68, creatinine 1.2. Chest CT: Shotty adenopathy with mediastinum unchanged. There was patchy infiltrate of right upper lobe which is new as compared to previous CAT scan. Atelectasis left base, unchanged. IMPRESSION: [id number] hypoxemic hypercapneic respiratory failure secondary to multiple factors. 1. Likely pneumonia, right upper lobe. 2. Ehqpi-fz-zycankh congestive heart failure. 3. Advanced chronic obstructive pulmonary disease, oxygen-dependent. 4. Nocturnal chronic oxygen dependence with nocturnal BiPAP. 5. Obstructive sleep apnea. 6. Permanent atrial fibrillation. 7. Recent methicillin-resistant Staphylococcus aureus buttock abscess. 8. Arteriosclerotic heart disease, status post coronary artery bypass graft. 9. Gout. 10. Chronic kidney disease. PLAN: IV antibiotics, will cover for nosocomial infection, patient recent hospitalization, IV Lasix, panculture, supplemental O2, and NIPPV as needed to maintain O2 saturation greater than 90%. Follow up arterial blood gas. Follow up chest x-rays, daily weights, strict I's and O's. Monitor renal function. CBC, electrolytes. LINDA HERNANDEZ M.D. [id number] MTDD
[2018-04-29] MEDS: FUROSEMIDE 100 MG/10 ML INJECTABLE VIAL IVPB SCH ×2 (06:24→15:26)
[2018-04-29] MEDS: sitaGLIPtin PHOSPHATE 25 MG TABLET (FP) PO SCH (06:27)
[2018-04-29] MEDS: INSULIN SLIDING SCALE (NOVOLOG) 1 VIAL SQ SCH ×4 (06:27→22:07)
[2018-04-29] MEDS: LEVOTHYROXINE NA 50 MCG TABLET (FP) PO SCH (08:03)
[2018-04-29 08:33] LABS: ANION GAP 2 MMOL/L (8-16); BLOOD UREA NITROGEN 56 mg/dL (7-18); CALCIUM 8.9 mg/dL (8.5-10.1); CHLORIDE 96 mmol/L (98-107); CO2 43 mmol/L (21-32); CREATININE 1.9 mg/dL (0.55-1.3); GLUCOSE,RANDOM 62 mg/dL (74-106); MAGNESIUM 2.7 mg/dL (1.8-2.4); N-TERMINAL BNP 2426.2 pg/ml (5-450); POTASSIUM 4.4 mmol/L (3.5-5.1); SODIUM 140 mmol/L (136-145); URIC ACID 6.2 mg/dL (2.6-7.2)
[2018-04-29] MEDS ORDERED: PT OWN MED DRAWER 7, Y5N ONE (09:42)
[2018-04-29] MEDS ORDERED: cefTRIAXone SODIUM 1 GM VIAL ONE (09:43)
[2018-04-29] MEDS ORDERED: DEXTROSE 5%-WATER - 50 ML IVPB ONE (09:43)
--- NOTE | 2018-04-29 09:45 | PN ---
Progress Note, Physician - Current Medication List Current Medications: Active Medications Apixaban (Eliquis -) 2.5 mg PO BID [facility] Last Admin: 04/28/18 22:04 Dose: 2.5 mg Aspirin (Asa -) 81 mg PO DAILY [facility] Last Admin: 04/28/18 10:00 Dose: 81 mg Atorvastatin Calcium (Lipitor -) 10 mg PO HS [facility] Last Admin: 04/28/18 22:04 Dose: 10 mg Colchicine (Colcrys -) 0.6 mg PO DAILY [facility] Last Admin: 04/28/18 10:00 Dose: 0.6 mg Febuxostat (Uloric -) 40 mg PO DAILY [facility] Last Admin: 04/28/18 10:13 Dose: 40 mg Furosemide (Lasix Injection -) 80 mg IVPB BID@0600,1400 [facility] Last Admin: 04/29/18 06:24 Dose: 80 mg Ceftriaxone Sodium 1 gm/ (Dextrose) 50 mls @ 100 mls/hr IVPB DAILY [facility] Last Admin: 04/28/18 13:14 Dose: 100 mls/hr Insulin Aspart (Novolog Vial Sliding Scale -) 1 vial SQ ACHS [facility]; Protocol Last Admin: 04/29/18 06:27 Dose: Not Given Insulin Detemir (Levemir Vial) 30 units SQ BID [facility] Last Admin: 04/28/18 22:48 Dose: 30 units Levothyroxine Sodium (Synthroid -) 50 mcg PO ACBK [facility] Last Admin: 04/29/18 08:03 Dose: Not Given Metoprolol Succinate (Toprol Xl -) 50 mg PO BID [facility] Last Admin: 04/28/18 22:04 Dose: 50 mg Non-Formulary Medication (Linaclotide [Linzess]) 290 mcg PO DAILY [facility] Polyethylene Glycol (Miralax (For Daily Use) -) 17 gm PO BID [facility] Last Admin: 04/28/18 22:48 Dose: 17 gm Sitagliptin Phosphate (Januvia -) 25 mg PO DAILY@0700 [facility] Last Admin: 04/29/18 06:27 Dose: Not Given Spironolactone (Aldactone -) 25 mg PO DAILY [facility] Last Admin: 04/28/18 10:00 Dose: 25 mg Valacyclovir HCl (Valtrex -) 500 mg PO BID [facility] Last Admin: 04/28/18 22:04 Dose: 500 mg - Objective Vital Signs: Vital Signs Temperature 97.5 F L 04/29/18 06:34 Pulse Rate 72 04/29/18 06:34 Respiratory Rate 20 04/29/18 06:34 Blood Pressure 139/83 04/29/18 06:34 O2 Sat by Pulse Oximetry (%) 96 04/29/18 00:13 Eyes: Yes: WNL, Conjunctiva Clear, EOM Intact HENT: Yes: WNL, Atraumatic, Normocephalic Neck: Yes: WNL, Supple, Trachea Midline Cardiovascular: Yes: WNL, Pulse Irregular Respiratory: Yes: WNL, Regular, Diminished Gastrointestinal: Yes: WNL, Normal Bowel Sounds Genitourinary: Yes: WNL Musculoskeletal: Yes: WNL Extremities: Yes: WNL Edema: Yes Integumentary: Yes: WNL Neurological: Yes: WNL, Alert, Oriented ...Motor Strength: WNL Psychiatric: Yes: WNL Labs: CBC, BMP 04/28/18 06:30 04/29/18 06:00 INR, PTT INR 1.37 (0.83-1.09) H 04/27/18 11:00 Assessment/Plan IMP: Acute on chronic respiratory failure, PNA Asbestos lung dz/ ILD JUAN 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 NIPPV/ Supplimental O2/ Abx as per PMD, Pulmonary 2. Agree with IV Lasix as patient is mildly volume overloaded and will be receiving extra volume ( IV abx, steroids) 3. Cont Anticoagulation for AF, currently rate controlled on Metoprolol. 4. Hold BETTY/ARB (CKD); on Aldactone. 5. PHTN is secondary to combination of left sided disease (decreased LVEF, diastolic dysfx and chronic lung dz- no specific therapy indicated other than treating underlying primary disease to best degree possible). coverage for dr. Starkey
[2018-04-29] MEDS: SPIRONOLACTONE 25 MG TABLET (FP) PO SCH (09:46)
[2018-04-29] MEDS: valACYclovir HCL 500 MG TABLET (FP) PO SCH ×2 (09:46→22:04)
[2018-04-29] MEDS: ASPIRIN 81 MG CHEWABLE TABLETS PO SCH (09:46)
[2018-04-29] MEDS: COLCHICINE 0.6 MG TABLET (FP) PO SCH (09:46)
[2018-04-29] MEDS: APIXABAN 2.5 MG TABLET PO SCH ×2 (09:46→22:07)
[2018-04-29] MEDS: CEFTRIAXONE 1 GM in DEXTROSE 5%-WATER - 50 ML IVPB SCH (09:47)
[2018-04-29] MEDS: POLYETHYLENE GLYCOL 3350 119 GM BTL PO SCH ×2 (09:50→22:07)
[2018-04-29] MEDS: FEBUXOSTAT 40 MG TAB PO SCH (09:50)
--- NOTE | 2018-04-29 11:17 | PN ---
Physical Exam: SUBJECTIVE: Patient seen and examined and bankruptcy legal assistant at bedside. OBJECTIVE: home oxygen dependent, on NC with bipap left buttock wound coverd with allevyn, no drainage Vital Signs Period Temp Pulse Resp BP Sys/Junior Pulse Ox Last 24 Hr 97.4 F-98.2 F 71-96 18-20 117-139/51-83 92-96 GENERAL: The patient is awake, alert, in no acute distress. HEAD: Normal with no signs of trauma. EYES: PERRL, extraocular movements intact, sclera anicteric, conjunctiva clear. No ptosis. ENT: Ears normal, nares patent, oropharynx clear without exudates, moist mucous membranes. NECK: Trachea midline, full range of motion, supple. LUNGS: diminished breath sounds bilaterally, home oxygen dependent. HEART: irregular hr ABDOMEN: obese abdomen, +bowel sounds, no abdominal pain EXTREMITIES: +1 bilateral lower ext edema NEUROLOGICAL: Normal speech, gait not observed. PSYCH: Normal mood, normal affect. SKIN: s/p drainage of left buttock abscess, now circular with no drainage, on allevyn. Laboratory Results - last 24 hr 04/28/18 04/28/18 04/28/18 06:30 11:16 16:33 Sodium Potassium Chloride Carbon Dioxide Anion Gap BUN Creatinine Creat Clearance w eGFR POC Glucometer 141 156 Random Glucose Uric Acid Calcium Magnesium B-Natriuretic Peptide Free T3 1.4 L 04/28/18 04/29/18 04/29/18 22:46 03:13 06:00 Sodium 140 Potassium 4.4 Chloride 96 L Carbon Dioxide 43 H Anion Gap 2 L BUN 56 H Creatinine 1.9 H Creat Clearance w eGFR 33.78 POC Glucometer 146 81 Random Glucose 62 L Uric Acid 6.2 Calcium 8.9 Magnesium 2.7 H B-Natriuretic Peptide 2426.2 H Free T3 04/29/18 06:26 Sodium Potassium Chloride Carbon Dioxide Anion Gap BUN Creatinine Creat Clearance w eGFR POC Glucometer 68 Random Glucose Uric Acid Calcium Magnesium B-Natriuretic Peptide Free T3 Active Medications Generic Name Dose Route Start Last Admin Trade Name Freq PRN Reason Stop Dose Admin Apixaban 2.5 mg 04/27/18 22:00 04/29/18 09:46 Eliquis - PO 2.5 mg BID JOE Administration Aspirin 81 mg 04/28/18 10:00 04/29/18 09:46 Asa - PO 81 mg DAILY JOE Administration Atorvastatin Calcium 10 mg 04/28/18 22:00 04/28/18 22:04 Lipitor - PO 10 mg HS JOE Administration Colchicine 0.6 mg 04/28/18 10:00 04/29/18 09:46 Colcrys - PO 0.6 mg DAILY JOE Administration Febuxostat 40 mg 04/28/18 10:00 04/29/18 09:50 Uloric - PO 40 mg DAILY [facility] Administration Furosemide 80 mg 04/27/18 14:00 04/29/18 06:24 Lasix Injection - IVPB 80 mg BID@0600,1400 JO[facility] Administration Ceftriaxone Sodium 1 gm/ 50 mls @ 100 mls/hr 04/28/18 10:00 04/29/18 09:47 Dextrose IVPB 100 mls/hr DAILY [facility] Administration Insulin Aspart 1 vial 04/27/18 16:30 04/29/18 06:27 Novolog Vial Sliding Scale - SQ Not Given ACHS [facility] Protocol Insulin Detemir 30 units 04/27/18 22:00 04/28/18 22:48 Levemir Vial SQ 30 units BID [facility] Administration Levothyroxine Sodium 50 mcg 04/28/18 07:00 04/29/18 08:03 Synthroid - PO Not Given ACBK [facility] Metoprolol Succinate 50 mg 04/27/18 22:00 04/29/18 09:46 Toprol Xl - PO 50 mg BID [facility] Administration Non-Formulary Medication 290 mcg 04/28/18 10:00 Linaclotide [Linzess] PO DAILY [facility] Polyethylene Glycol 17 gm 04/27/18 22:00 04/29/18 09:50 Miralax (For Daily Use) - PO Not Given BID [facility] Sitagliptin Phosphate 25 mg 04/28/18 07:00 04/29/18 06:27 Januvia - PO Not Given DAILY@0700 [facility] Spironolactone 25 mg 04/28/18 10:00 04/29/18 09:46 Aldactone - PO 25 mg DAILY [facility] Administration Valacyclovir HCl 500 mg 04/27/18 22:00 04/29/18 09:46 Valtrex - PO 500 mg BID [facility] Administration ASSESSMENT/PLAN: Patient is an 87 year old male who is admitted due to respiratory distress at home, lethargy, difficulty to be aroused by the family and hypotension. On last admission 03/2018 he was noted to have MRSA abscess of the buttocks which was surgical debrided. Pulmonary: Pneumonia/acute respiratory failure On bipap, and supplemental oxygen On ceftriaxone monitor oxygen saturations and mental status Maintain oxygen levels above 90% Will add afshan ID: Cellulitis of left buttocks s/p I&D on last admission. Daily dressing changes, will add santyl Card: Systolic CHF, acute on chronic monitor weighs, intake and output On IV lasix 80mg ivpb bid Daily weights Atrial fibrillation On eliquis, metoprolol Endocrine Diabetes Levemir, novolog Goal is to keep fasting bgm <180 CKD bun/creat rising on lasix 80mg bid Monitor creatinine fen tolerating po monitor electrolytes diabetic diet prophy: eliquis . Visit type - Emergency Visit Emergency Visit: Yes ED Registration Date: 04/27/18 Care time: The patient presented to the Emergency Department on the above date and was hospitalized for further evaluation of their emergent condition. - New Patient This patient is new to me today: No - Critical Care Critical Care patient: No - Discharge Referral Referred to [facility] Med [facility].C[facility] No
[2018-04-29] MEDS: INSULIN (LEVEMIR) 100 UNITS/ML UNITS SQ SCH ×2 (12:56→22:07)
--- NOTE | 2018-04-29 15:37 | PN ---
Progress Note, Physician History of Present Illness: pulmonary alert,confused on an nasal cannula -resp distress. o2 sat 95% - Current Medication List Current Medications: Active Medications Apixaban (Eliquis -) 2.5 mg PO BID [facility] Last Admin: 04/29/18 09:46 Dose: 2.5 mg Aspirin (Asa -) 81 mg PO DAILY [facility] Last Admin: 04/29/18 09:46 Dose: 81 mg Atorvastatin Calcium (Lipitor -) 10 mg PO HS [facility] Last Admin: 04/28/18 22:04 Dose: 10 mg Colchicine (Colcrys -) 0.6 mg PO DAILY [facility] Last Admin: 04/29/18 09:46 Dose: 0.6 mg Febuxostat (Uloric -) 40 mg PO DAILY [facility] Last Admin: 04/29/18 09:50 Dose: 40 mg Furosemide (Lasix Injection -) 80 mg IVPB BID@0600,1400 [facility] Last Admin: 04/29/18 15:26 Dose: 80 mg Ceftriaxone Sodium 1 gm/ (Dextrose) 50 mls @ 100 mls/hr IVPB DAILY [facility] Last Admin: 04/29/18 09:47 Dose: 100 mls/hr Insulin Aspart (Novolog Vial Sliding Scale -) 1 vial SQ ACHS [facility]; Protocol Last Admin: 04/29/18 12:57 Dose: Not Given Insulin Detemir (Levemir Vial) 30 units SQ BID [facility] Last Admin: 04/29/18 12:56 Dose: Not Given Levothyroxine Sodium (Synthroid -) 50 mcg PO ACBK [facility] Last Admin: 04/29/18 08:03 Dose: Not Given Metoprolol Succinate (Toprol Xl -) 50 mg PO BID [facility] Last Admin: 04/29/18 09:46 Dose: 50 mg Non-Formulary Medication (Linaclotide [Linzess]) 290 mcg PO DAILY [facility] Polyethylene Glycol (Miralax (For Daily Use) -) 17 gm PO BID [facility] Last Admin: 04/29/18 09:50 Dose: Not Given Sitagliptin Phosphate (Januvia -) 25 mg PO DAILY@0700 [facility] Last Admin: 04/29/18 06:27 Dose: Not Given Spironolactone (Aldactone -) 25 mg PO DAILY [facility] Last Admin: 04/29/18 09:46 Dose: 25 mg Valacyclovir HCl (Valtrex -) 500 mg PO BID [facility] Last Admin: 04/29/18 09:46 Dose: 500 mg - Objective Vital Signs: Vital Signs Temperature 98.3 F 04/29/18 15:16 Pulse Rate 78 04/29/18 15:16 Respiratory Rate 20 04/29/18 15:16 Blood Pressure 115/69 04/29/18 15:16 O2 Sat by Pulse Oximetry (%) 96 04/29/18 00:13 Constitutional: Yes: Well Nourished, Calm Eyes: Yes: WNL HENT: Yes: WNL Neck: Yes: WNL Cardiovascular: Yes: Pulse Irregular, S1, S2 Respiratory: Yes: Diminished Gastrointestinal: Yes: Normal Bowel Sounds, Soft Extremities: Yes: WNL Edema: Yes Labs: CBC, BMP 04/29/18 06:00 Problem List - Problems (1) CKD (chronic kidney disease) Code(s): N18.9 - CHRONIC KIDNEY DISEASE, UNSPECIFIED (2) Pneumonia Code(s): J18.9 - PNEUMONIA, UNSPECIFIED ORGANISM Qualifiers: Pneumonia type: due to unspecified organism Laterality: right Lung location: upper lobe of lung Qualified Code(s): J18.1 - Lobar pneumonia, unspecified organism (3) ASHD (arteriosclerotic heart disease) Code(s): I25.10 - ATHSCL HEART DISEASE OF [place] CORONARY ARTERY W/O ANG PCTRS (4) Acute on chronic diastolic CHF (congestive heart failure) Code(s): I50.33 - ACUTE ON CHRONIC DIASTOLIC (CONGESTIVE) HEART FAILURE (5) Acute on chronic respiratory failure with hypoxia and hypercapnia Code(s): J96.21 - ACUTE AND CHRONIC RESPIRATORY FAILURE WITH HYPOXIA; J96.22 - ACUTE AND CHRONIC RESPIRATORY FAILURE WITH HYPERCAPNIA (6) Acute on chronic systolic (congestive) heart failure Code(s): I50.23 - ACUTE ON CHRONIC SYSTOLIC (CONGESTIVE) HEART FAILURE (7) Asbestos pleurisy Code(s): 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.8 - OTHER SPECIFIED PLEURAL CONDITIONS (8) Atrial fibrillation Code(s): I48.91 - UNSPECIFIED ATRIAL FIBRILLATION Qualifiers: Atrial fibrillation type: chronic Qualified Code(s): I48.2 - Chronic atrial fibrillation (9) CAD (coronary artery disease) Code(s): I25.10 - ATHSCL HEART DISEASE OF [place] CORONARY ARTERY W/O ANG PCTRS Qualifiers: Coronary Disease-Associated Artery/Lesion type: bypass graft, autologous artery Associated angina: without angina Qualified Code(s): I25.810 - Atherosclerosis of coronary artery bypass graft(s) without angina pectoris (10) CHF, acute on chronic Code(s): I50.9 - HEART FAILURE, UNSPECIFIED (11) COPD with acute exacerbation Code(s): J44.1 - CHRONIC OBSTRUCTIVE PULMONARY DISEASE W (ACUTE) EXACERBATION (12) DM type 2 (diabetes mellitus, type 2) Code(s): E11.9 - TYPE 2 DIABETES MELLITUS WITHOUT COMPLICATIONS Qualifiers: Chronic kidney disease stage: stage 3 (moderate) (13) HTN (hypertension) Code(s): I10 - ESSENTIAL (PRIMARY) HYPERTENSION (14) Leg swelling Code(s): M79.89 - OTHER SPECIFIED SOFT TISSUE DISORDERS (15) Pulmonary hypertension Code(s): I27.20 - PULMONARY HYPERTENSION, UNSPECIFIED (16) Sleep apnea Code(s): G47.30 - SLEEP APNEA, UNSPECIFIED Qualifiers: Sleep apnea type: unspecified type Qualified Code(s): G47.30 - Sleep apnea , unspecified Assessment/Plan IMP ACUTE ON CHRONIC HYPOXEMIC/HYPERCAPNEIC RESPIRATORY FAILURE RUL PNEUMONIA ACUTE ON CHRONIC CHF ADVANCED COPD O2 DEPENDENT,NOCTURNAL BIPAP AFIB RECENT MRSA BUTTOCK ABSCESS ASHD S/P CAB GOUT CKD JUAN PLAN cont IV LASIX ABX O2 NIPPV NEEDED F/U ABGS F/U CHEST X-RAY DAILY WT STRICT I+Os MONITOR LYES,RENAL FUNCTION DR HERNANDEZ Problem List - Problems (1) CKD (chronic kidney disease) Code(s): N18.9 - CHRONIC KIDNEY DISEASE, UNSPECIFIED (2) Pneumonia Code(s): J18.9 - PNEUMONIA, UNSPECIFIED ORGANISM Qualifiers: Pneumonia type: due to unspecified organism Laterality: right Lung location: upper lobe of lung Qualified Code(s): J18.1 - Lobar pneumonia, unspecified organism (3) ASHD (arteriosclerotic heart disease) Code(s): I25.10 - ATHSCL HEART DISEASE OF [place] CORONARY ARTERY W/O ANG PCTRS (4) Acute on chronic diastolic CHF (congestive heart failure) Code(s): I50.33 - ACUTE ON CHRONIC DIASTOLIC (CONGESTIVE) HEART FAILURE (5) Acute on chronic respiratory failure with hypoxia and hypercapnia Code(s): J96.21 - ACUTE AND CHRONIC RESPIRATORY FAILURE WITH HYPOXIA; J96.22 - ACUTE AND CHRONIC RESPIRATORY FAILURE WITH HYPERCAPNIA (6) Acute on chronic systolic (congestive) heart failure Code(s): I50.23 - ACUTE ON CHRONIC SYSTOLIC (CONGESTIVE) HEART FAILURE (7) Asbestos pleurisy Code(s): 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.8 - OTHER SPECIFIED PLEURAL CONDITIONS (8) Atrial fibrillation Code(s): I48.91 - UNSPECIFIED ATRIAL FIBRILLATION Qualifiers: Atrial fibrillation type: chronic Qualified Code(s): I48.2 - Chronic atrial fibrillation (9) CAD (coronary artery disease) Code(s): I25.10 - ATHSCL HEART DISEASE OF [place] CORONARY ARTERY W/O ANG PCTRS Qualifiers: Coronary Disease-Associated Artery/Lesion type: bypass graft, autologous artery Associated angina: without angina Qualified Code(s): I25.810 - Atherosclerosis of coronary artery bypass graft(s) without angina pectoris (10) CHF, acute on chronic Code(s): I50.9 - HEART FAILURE, UNSPECIFIED (11) COPD with acute exacerbation Code(s): J44.1 - CHRONIC OBSTRUCTIVE PULMONARY DISEASE W (ACUTE) EXACERBATION (12) DM type 2 (diabetes mellitus, type 2) Code(s): E11.9 - TYPE 2 DIABETES MELLITUS WITHOUT COMPLICATIONS Qualifiers: Chronic kidney disease stage: stage 3 (moderate) (13) HTN (hypertension) Code(s): I10 - ESSENTIAL (PRIMARY) HYPERTENSION (14) Leg swelling Code(s): M79.89 - OTHER SPECIFIED SOFT TISSUE DISORDERS (15) Pulmonary hypertension Code(s): I27.20 - PULMONARY HYPERTENSION, UNSPECIFIED (16) Sleep apnea Code(s): G47.30 - SLEEP APNEA, UNSPECIFIED Qualifiers: Sleep apnea type: unspecified type Qualified Code(s): G47.30 - Sleep apnea , unspecified
[2018-04-29] MEDS: ATORVASTATIN CA 10 MG TABLET (FP) PO SCH (22:04)
[2018-04-30] MEDS: FUROSEMIDE 100 MG/10 ML INJECTABLE VIAL IVPB SCH ×2 (05:42→13:53)
[2018-04-30] MEDS: sitaGLIPtin PHOSPHATE 25 MG TABLET (FP) PO SCH (06:15)
[2018-04-30] MEDS: INSULIN SLIDING SCALE (NOVOLOG) 1 VIAL SQ SCH ×4 (06:15→22:39)
[2018-04-30] MEDS: LEVOTHYROXINE NA 50 MCG TABLET (FP) PO SCH (06:15)
[2018-04-30] MEDS ORDERED: PT OWN MED DRAWER 7, Y5N ONE ×2 (08:52→17:35)
[2018-04-30] MEDS ORDERED: cefTRIAXone SODIUM 1 GM VIAL ONE (08:53)
[2018-04-30] MEDS ORDERED: DEXTROSE 5%-WATER - 50 ML IVPB ONE (08:53)
[2018-04-30] MEDS: ASPIRIN 81 MG CHEWABLE TABLETS PO SCH (09:43)
[2018-04-30] MEDS: valACYclovir HCL 500 MG TABLET (FP) PO SCH ×2 (09:43→22:38)
[2018-04-30] MEDS: APIXABAN 2.5 MG TABLET PO SCH ×2 (09:43→22:38)
[2018-04-30] MEDS: SPIRONOLACTONE 25 MG TABLET (FP) PO SCH (09:44)
[2018-04-30] MEDS: COLCHICINE 0.6 MG TABLET (FP) PO SCH (09:44)
[2018-04-30] MEDS: CEFTRIAXONE 1 GM in DEXTROSE 5%-WATER - 50 ML IVPB SCH (09:44)
[2018-04-30] MEDS: FEBUXOSTAT 40 MG TAB PO SCH (09:45)
[2018-04-30] MEDS: POLYETHYLENE GLYCOL 3350 119 GM BTL PO SCH ×2 (09:46→22:39)
--- NOTE | 2018-04-30 09:53 | PN ---
Progress Note, Physician - Current Medication List Current Medications: Active Medications Albuterol/Ipratropium (Duoneb -) 1 amp NEB Q6H PRN PRN Reason: SHORTNESS OF BREATH Apixaban (Eliquis -) 2.5 mg PO BID [facility] Last Admin: 04/30/18 09:43 Dose: 2.5 mg Aspirin (Asa -) 81 mg PO DAILY [facility] Last Admin: 04/30/18 09:43 Dose: 81 mg Atorvastatin Calcium (Lipitor -) 10 mg PO HS [facility] Last Admin: 04/29/18 22:04 Dose: 10 mg Colchicine (Colcrys -) 0.6 mg PO DAILY [facility] Last Admin: 04/30/18 09:44 Dose: 0.6 mg Collagenase (Santyl -) 1 applic TP DAILY [facility]; Protocol Febuxostat (Uloric -) 40 mg PO DAILY [facility] Last Admin: 04/30/18 09:45 Dose: 40 mg Furosemide (Lasix Injection -) 80 mg IVPB BID@0600,1400 [facility] Last Admin: 04/30/18 05:42 Dose: 80 mg Ceftriaxone Sodium 1 gm/ (Dextrose) 50 mls @ 100 mls/hr IVPB DAILY [facility] Last Admin: 04/30/18 09:44 Dose: 100 mls/hr Insulin Aspart (Novolog Vial Sliding Scale -) 1 vial SQ ACHS [facility]; Protocol Last Admin: 04/30/18 06:15 Dose: Not Given Insulin Detemir (Levemir Vial) 30 units SQ BID [facility] Last Admin: 04/29/18 22:07 Dose: 30 units Levothyroxine Sodium (Synthroid -) 50 mcg PO ACBK [facility] Last Admin: 04/30/18 06:15 Dose: 50 mcg Metoprolol Succinate (Toprol Xl -) 50 mg PO BID [facility] Last Admin: 04/30/18 09:43 Dose: 50 mg Non-Formulary Medication (Linaclotide [Linzess]) 290 mcg PO DAILY [facility] Polyethylene Glycol (Miralax (For Daily Use) -) 17 gm PO BID [facility] Last Admin: 04/30/18 09:46 Dose: 17 gm Sitagliptin Phosphate (Januvia -) 25 mg PO DAILY@0700 [facility] Last Admin: 04/30/18 06:15 Dose: 25 mg Spironolactone (Aldactone -) 25 mg PO DAILY [facility] Last Admin: 04/30/18 09:44 Dose: 25 mg Valacyclovir HCl (Valtrex -) 500 mg PO BID [facility] Last Admin: 04/30/18 09:43 Dose: 500 mg - Objective Vital Signs: Vital Signs Temperature 97.7 F 04/30/18 06:11 Pulse Rate 92 H 04/30/18 06:11 Respiratory Rate 20 04/30/18 06:11 Blood Pressure 128/79 04/30/18 06:11 O2 Sat by Pulse Oximetry (%) 96 04/29/18 21:21 Eyes: Yes: WNL, Conjunctiva Clear, EOM Intact HENT: Yes: WNL, Atraumatic, Normocephalic Neck: Yes: WNL, Supple, Trachea Midline Cardiovascular: Yes: WNL, Regular Rate and Rhythm Respiratory: Yes: WNL, Regular, CTA Bilaterally Gastrointestinal: Yes: WNL, Normal Bowel Sounds Genitourinary: Yes: WNL Musculoskeletal: Yes: WNL Extremities: Yes: WNL Edema: Yes Integumentary: Yes: WNL Neurological: Yes: WNL, Alert, Oriented ...Motor Strength: WNL Psychiatric: Yes: WNL Labs: CBC, BMP 04/28/18 06:30 04/29/18 06:00 INR, PTT INR 1.37 (0.83-1.09) H 04/27/18 11:00 Assessment/Plan IMP: Acute on chronic respiratory failure, PNA Asbestos lung dz/ ILD JUAN 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 NIPPV/ Supplimental O2/ Abx as per PMD, Pulmonary 2. Agree with IV Lasix as patient is mildly volume overloaded and will be receiving extra volume ( IV abx, steroids) 3. Cont Anticoagulation for AF, currently rate controlled on Metoprolol. 4. Hold BETTY/ARB (CKD); on Aldactone. 5. PHTN is secondary to combination of left sided disease (decreased LVEF, diastolic dysfx and chronic lung dz- no specific therapy indicated other than treating underlying primary disease to best degree possible). coverage for dr. Starkey
[2018-04-30 11:01] LABS: BASO % 0.8 % (0-2.0); EOS % 2.2 % (0-4.5); HEMATOCRIT 32.9 % (35.4-49); HEMOGLOBIN 10.9 GM/dL (11.7-16.9); LYMPH % 12.6 % (8-40); MCH 30.8 pg (25.7-33.7); MCHC 33.2 g/dl (32.0-35.9); MEAN CELL VOLUME 92.8 fl (80-96); MEAN PLT VOLUME 8.5 fl (7.5-11.1); MONO % 10.9 % (3.8-10.2); NEUT % 73.5 % (42.8-82.8); PLATELET COUNT 164 K/MM3 (134-434); RBC 3.55 M/mm3 (4.00-5.60); RDW 17.9 % (11.9-15.9); WHITE BLOOD COUNT 8.3 K/mm3 (4.0-10.0)
[2018-04-30] MEDS: INSULIN (LEVEMIR) 100 UNITS/ML UNITS SQ SCH ×2 (11:15→22:38)
[2018-04-30 11:26] LABS: ALBUMIN 3.5 g/dl (3.4-5.0); ALK PHOS 66 U/L (45-117); ANION GAP 5 MMOL/L (8-16); BILIRUBIN,TOTAL 0.5 mg/dL (0.2-1); BLOOD UREA NITROGEN 48 mg/dL (7-18); CALCIUM 8.7 mg/dL (8.5-10.1); CHLORIDE 93 mmol/L (98-107); CO2 41 mmol/L (21-32); CREATININE 1.8 mg/dL (0.55-1.3); GLUCOSE,RANDOM 139 mg/dL (74-106); MAGNESIUM 2.7 mg/dL (1.8-2.4); POTASSIUM 4.4 mmol/L (3.5-5.1); SGOT/AST 24 U/L (15-37); SGPT/ALT 23 U/L (13-61); SODIUM 139 mmol/L (136-145); TOT PROT 6.7 g/dl (6.4-8.2)
--- NOTE | 2018-04-30 12:34 | PN ---
Physical Exam: SUBJECTIVE: Patient seen and examined at the bedside. in no acute distress. son in room. OBJECTIVE: Vital Signs Period Temp Pulse Resp BP Sys/Junior Pulse Ox Last 24 Hr 97.7 F-98.3 F 73-92 20-20 115-128/63-79 95-96 GENERAL: The patient is awake, alert, in no acute distress. HEAD: Normal with no signs of trauma. EYES: PERRL, extraocular movements intact, sclera anicteric, conjunctiva clear. No ptosis. ENT: Ears normal, nares patent, oropharynx clear without exudates, moist mucous membranes. NECK: Trachea midline, full range of motion, supple. LUNGS: diminished breath sounds bilaterally, home oxygen dependent. HEART: irregular hr ABDOMEN: obese abdomen, +bowel sounds, no abdominal pain EXTREMITIES: +1 bilateral lower ext edema NEUROLOGICAL: Normal speech, gait not observed. PSYCH: Normal mood, normal affect. SKIN: s/p drainage of left buttock abscess, now circular with no drainage, on allevyn. Laboratory Results - last 24 hr 04/29/18 04/29/18 04/29/18 12:44 17:19 21:41 WBC RBC Hgb Hct MCV MCH MCHC RDW Plt Count MPV Absolute Neuts (auto) Neutrophils % Lymphocytes % Monocytes % Eosinophils % Basophils % Nucleated RBC % Sodium Potassium Chloride Carbon Dioxide Anion Gap BUN Creatinine Creat Clearance w eGFR POC Glucometer 163 124 183 Random Glucose Calcium Magnesium Total Bilirubin AST ALT Alkaline Phosphatase Total Protein Albumin 04/30/18 04/30/18 04/30/18 06:04 10:10 10:10 WBC 8.3 RBC 3.55 L Hgb 10.9 L Hct 32.9 L MCV 92.8 MCH 30.8 MCHC 33.2 RDW 17.9 H Plt Count 164 MPV 8.5 Absolute Neuts (auto) 6.1 Neutrophils % 73.5 Lymphocytes % 12.6 D Monocytes % 10.9 H Eosinophils % 2.2 Basophils % 0.8 Nucleated RBC % 0 Sodium 139 Potassium 4.4 Chloride 93 L Carbon Dioxide 41 H Anion Gap 5 L BUN 48 H Creatinine 1.8 H Creat Clearance w eGFR 35.95 POC Glucometer 85 Random Glucose 139 H Calcium 8.7 Magnesium 2.7 H Total Bilirubin 0.5 AST 24 ALT 23 Alkaline Phosphatase 66 Total Protein 6.7 Albumin 3.5 04/30/18 10:59 WBC RBC Hgb Hct MCV MCH MCHC RDW Plt Count MPV Absolute Neuts (auto) Neutrophils % Lymphocytes % Monocytes % Eosinophils % Basophils % Nucleated RBC % Sodium Potassium Chloride Carbon Dioxide Anion Gap BUN Creatinine Creat Clearance w eGFR POC Glucometer 156 Random Glucose Calcium Magnesium Total Bilirubin AST ALT Alkaline Phosphatase Total Protein Albumin Active Medications Generic Name Dose Route Start Last Admin Trade Name Scottyq PRN Reason Stop Dose Admin Albuterol/Ipratropium 1 amp 04/29/18 17:14 Duoneb - NEB Q6H PRN SHORTNESS OF BREATH Apixaban 2.5 mg 04/27/18 22:00 04/30/18 09:43 Eliquis - PO 2.5 mg BID [facility] Administration Aspirin 81 mg 04/28/18 10:00 04/30/18 09:43 Asa - PO 81 mg DAILY [facility] Administration Atorvastatin Calcium 10 mg 04/28/18 22:00 04/29/18 22:04 Lipitor - PO 10 mg HS [facility] Administration Colchicine 0.6 mg 04/28/18 10:00 04/30/18 09:44 Colcrys - PO 0.6 mg DAILY [facility] Administration Collagenase 1 applic 04/30/18 10:00 Santyl - TP DAILY [facility] Protocol Febuxostat 40 mg 04/28/18 10:00 04/30/18 09:45 Uloric - PO 40 mg DAILY [facility] Administration Furosemide 80 mg 04/27/18 14:00 04/30/18 05:42 Lasix Injection - IVPB 80 mg BID@0600,1400 [facility] Administration Ceftriaxone Sodium 1 gm/ 50 mls @ 100 mls/hr 04/28/18 10:00 04/30/18 09:44 Dextrose IVPB 100 mls/hr DAILY [facility] Administration Insulin Aspart 1 vial 04/27/18 16:30 04/30/18 11:02 Novolog Vial Sliding Scale - SQ Not Given ACHS [facility] Protocol Insulin Detemir 30 units 04/27/18 22:00 04/30/18 11:15 Levemir Vial SQ 30 units BID [facility] Administration Levothyroxine Sodium 50 mcg 04/28/18 07:00 04/30/18 06:15 Synthroid - PO 50 mcg ACBK [facility] Administration Metoprolol Succinate 50 mg 04/27/18 22:00 04/30/18 09:43 Toprol Xl - PO 50 mg BID [facility] Administration Non-Formulary Medication 290 mcg 04/28/18 10:00 Linaclotide [Linzess] PO DAILY [facility] Polyethylene Glycol 17 gm 04/27/18 22:00 04/30/18 09:46 Miralax (For Daily Use) - PO 17 gm BID [facility] Administration Sitagliptin Phosphate 25 mg 04/28/18 07:00 04/30/18 06:15 Januvia - PO 25 mg DAILY@0700 [facility] Administration Spironolactone 25 mg 04/28/18 10:00 04/30/18 09:44 Aldactone - PO 25 mg DAILY [facility] Administration Valacyclovir HCl 500 mg 04/27/18 22:00 04/30/18 09:43 Valtrex - PO 500 mg BID [facility] Administration ASSESSMENT/PLAN: Patient is an 87 year old male who is admitted due to respiratory distress at home, lethargy, difficulty to be aroused by the family and hypotension. On last admission 03/2018 he was noted to have MRSA abscess of the buttocks which was surgical debrided. Pulmonary: Pneumonia/acute respiratory failure On bipap, and supplemental oxygen, bipap intermittent during the day On ceftriaxone monitor oxygen saturations and mental status Maintain oxygen levels above 90% Will add duonebs prn Pulmonary following ID: Abscess of left buttocks s/p I&D on last admission. Daily dressing changes, will add santyl Card: Systolic CHF, acute on chronic monitor weighs (111kg>108kg), intake and output On IV lasix 80mg ivpb bid low salt diabetic diet with 1400 cc fluid restriction. Atrial fibrillation On eliquis, metoprolol Endocrine Diabetes Levemir, novolog Goal is to keep fasting bgm <180 CKD bun/creat elevated. on lasix 80mg bid Monitor creatinine while on high dose diuretic therapy fen tolerating po monitor electrolytes diabetic diet prophy: eliquis Visit type - Emergency Visit Emergency Visit: Yes ED Registration Date: 04/27/18 Care time: The patient presented to the Emergency Department on the above date and was hospitalized for further evaluation of their emergent condition. - New Patient This patient is new to me today: No - Critical Care Critical Care patient: No - Discharge Referral Referred to [facility] No
--- NOTE | 2018-04-30 15:30 | PN ---
Progress Note, Physician History of Present Illness: pulmonary comfortable on bipap - Current Medication List Current Medications: Active Medications Albuterol/Ipratropium (Duoneb -) 1 amp NEB Q6H PRN PRN Reason: SHORTNESS OF BREATH Apixaban (Eliquis -) 2.5 mg PO BID [facility] Last Admin: 04/30/18 09:43 Dose: 2.5 mg Aspirin (Asa -) 81 mg PO DAILY [facility] Last Admin: 04/30/18 09:43 Dose: 81 mg Atorvastatin Calcium (Lipitor -) 10 mg PO HS [facility] Last Admin: 04/29/18 22:04 Dose: 10 mg Colchicine (Colcrys -) 0.6 mg PO DAILY [facility] Last Admin: 04/30/18 09:44 Dose: 0.6 mg Collagenase (Santyl -) 1 applic TP DAILY [facility]; Protocol Febuxostat (Uloric -) 40 mg PO DAILY [facility] Last Admin: 04/30/18 09:45 Dose: 40 mg Furosemide (Lasix Injection -) 80 mg IVPB BID@0600,1400 [facility] Last Admin: 04/30/18 13:53 Dose: 80 mg Ceftriaxone Sodium 1 gm/ (Dextrose) 50 mls @ 100 mls/hr IVPB DAILY [facility] Last Admin: 04/30/18 09:44 Dose: 100 mls/hr Insulin Aspart (Novolog Vial Sliding Scale -) 1 vial SQ ACHS [facility]; Protocol Last Admin: 04/30/18 11:02 Dose: Not Given Insulin Detemir (Levemir Vial) 30 units SQ BID [facility] Last Admin: 04/30/18 11:15 Dose: 30 units Levothyroxine Sodium (Synthroid -) 50 mcg PO ACBK [facility] Last Admin: 04/30/18 06:15 Dose: 50 mcg Metoprolol Succinate (Toprol Xl -) 50 mg PO BID [facility] Last Admin: 04/30/18 09:43 Dose: 50 mg Non-Formulary Medication (Linaclotide [Linzess]) 290 mcg PO DAILY [facility] Polyethylene Glycol (Miralax (For Daily Use) -) 17 gm PO BID [facility] Last Admin: 04/30/18 09:46 Dose: 17 gm Sitagliptin Phosphate (Januvia -) 25 mg PO DAILY@0700 [facility] Last Admin: 04/30/18 06:15 Dose: 25 mg Spironolactone (Aldactone -) 25 mg PO DAILY [facility] Last Admin: 04/30/18 09:44 Dose: 25 mg Valacyclovir HCl (Valtrex -) 500 mg PO BID [facility] Last Admin: 04/30/18 09:43 Dose: 500 mg - Objective Vital Signs: Vital Signs Temperature 98.4 F 04/30/18 10:00 Pulse Rate 74 04/30/18 10:00 Respiratory Rate 20 04/30/18 10:00 Blood Pressure 124/63 04/30/18 10:00 O2 Sat by Pulse Oximetry (%) 95 04/30/18 09:00 Constitutional: Yes: Calm, Obese Eyes: Yes: WNL HENT: Yes: WNL Neck: Yes: WNL Cardiovascular: Yes: Pulse Irregular, S1, S2 Respiratory: Yes: Diminished Gastrointestinal: Yes: Normal Bowel Sounds, Soft Extremities: Yes: WNL Edema: Yes Labs: CBC, BMP 04/30/18 10:10 04/30/18 10:10 INR, PTT INR 1.37 (0.83-1.09) H 04/27/18 11:00 Problem List - Problems (1) CKD (chronic kidney disease) Code(s): N18.9 - CHRONIC KIDNEY DISEASE, UNSPECIFIED (2) Pneumonia Code(s): J18.9 - PNEUMONIA, UNSPECIFIED ORGANISM Qualifiers: Pneumonia type: due to unspecified organism Laterality: right Lung location: upper lobe of lung Qualified Code(s): J18.1 - Lobar pneumonia, unspecified organism (3) ASHD (arteriosclerotic heart disease) Code(s): I25.10 - ATHSCL HEART DISEASE OF [place] CORONARY ARTERY W/O ANG PCTRS (4) Acute on chronic diastolic CHF (congestive heart failure) Code(s): I50.33 - ACUTE ON CHRONIC DIASTOLIC (CONGESTIVE) HEART FAILURE (5) Acute on chronic respiratory failure with hypoxia and hypercapnia Code(s): J96.21 - ACUTE AND CHRONIC RESPIRATORY FAILURE WITH HYPOXIA; J96.22 - ACUTE AND CHRONIC RESPIRATORY FAILURE WITH HYPERCAPNIA (6) Acute on chronic systolic (congestive) heart failure Code(s): I50.23 - ACUTE ON CHRONIC SYSTOLIC (CONGESTIVE) HEART FAILURE (7) Asbestos pleurisy Code(s): J94.8 - OTHER SPECIFIED PLEURAL CONDITIONS (8) Atrial fibrillation Code(s): I48.91 - UNSPECIFIED ATRIAL FIBRILLATION Qualifiers: Atrial fibrillation type: chronic Qualified Code(s): I48.2 - Chronic atrial fibrillation (9) CAD (coronary artery disease) Code(s): I25.10 - ATHSCL HEART DISEASE OF [place] CORONARY ARTERY W/O ANG PCTRS Qualifiers: Coronary Disease-Associated Artery/Lesion type: bypass graft, autologous artery Associated angina: without angina Qualified Code(s): I25.810 - Atherosclerosis of coronary artery bypass graft(s) without angina pectoris (10) CHF, acute on chronic Code(s): I50.9 - HEART FAILURE, UNSPECIFIED (11) COPD with acute exacerbation Code(s): J44.1 - CHRONIC OBSTRUCTIVE PULMONARY DISEASE W (ACUTE) EXACERBATION (12) DM type 2 (diabetes mellitus, type 2) Code(s): E11.9 - TYPE 2 DIABETES MELLITUS WITHOUT COMPLICATIONS Qualifiers: Chronic kidney disease stage: stage 3 (moderate) (13) HTN (hypertension) Code(s): I10 - ESSENTIAL (PRIMARY) HYPERTENSION (14) Leg swelling Code(s): M79.89 - OTHER SPECIFIED SOFT TISSUE DISORDERS (15) Pulmonary hypertension Code(s): I27.20 - PULMONARY HYPERTENSION, UNSPECIFIED (16) Sleep apnea Code(s): G47.30 - SLEEP APNEA, UNSPECIFIED Qualifiers: Sleep apnea type: unspecified type Qualified Code(s): G47.30 - Sleep apnea , unspecified Assessment/Plan IMP ACUTE ON CHRONIC HYPOXEMIC/HYPERCAPNEIC RESPIRATORY FAILURE RUL PNEUMONIA ACUTE ON CHRONIC CHF ADVANCED COPD O2 DEPENDENT,NOCTURNAL BIPAP AFIB RECENT MRSA BUTTOCK ABSCESS ASHD S/P CAB GOUT ACUTE ON CKD improving JUAN PLAN cont IV LASIX ABX O2 NIPPV NEEDED F/U ABGS DAILY WT STRICT I+Os MONITOR LYES,RENAL FUNCTION DR HERNANDEZ Problem List - Problems (1) CKD (chronic kidney disease) Code(s): N18.9 - CHRONIC KIDNEY DISEASE, UNSPECIFIED (2) Pneumonia Code(s): J18.9 - PNEUMONIA, UNSPECIFIED ORGANISM Qualifiers: Pneumonia type: due to unspecified organism Laterality: right Lung location: upper lobe of lung Qualified Code(s): J18.1 - Lobar pneumonia, unspecified organism (3) ASHD (arteriosclerotic heart disease) Code(s): I25.10 - ATHSCL HEART DISEASE OF [place] CORONARY ARTERY W/O ANG PCTRS (4) Acute on chronic diastolic CHF (congestive heart failure) Code(s): I50.33 - ACUTE ON CHRONIC DIASTOLIC (CONGESTIVE) HEART FAILURE (5) Acute on chronic respiratory failure with hypoxia and hypercapnia Code(s): J96.21 - ACUTE AND CHRONIC RESPIRATORY FAILURE WITH HYPOXIA; J96.22 - ACUTE AND CHRONIC RESPIRATORY FAILURE WITH HYPERCAPNIA (6) Acute on chronic systolic (congestive) heart failure Code(s): I50.23 - ACUTE ON CHRONIC SYSTOLIC (CONGESTIVE) HEART FAILURE (7) Asbestos pleurisy Code(s): 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.8 - OTHER SPECIFIED PLEURAL CONDITIONS (8) Atrial fibrillation Code(s): I48.91 - UNSPECIFIED ATRIAL FIBRILLATION Qualifiers: Atrial fibrillation type: chronic Qualified Code(s): I48.2 - Chronic atrial fibrillation (9) CAD (coronary artery disease) Code(s): I25.10 - ATHSCL HEART DISEASE OF [place] CORONARY ARTERY W/O ANG PCTRS Qualifiers: Coronary Disease-Associated Artery/Lesion type: bypass graft, autologous artery Associated angina: without angina Qualified Code(s): I25.810 - Atherosclerosis of coronary artery bypass graft(s) without angina pectoris (10) CHF, acute on chronic Code(s): I50.9 - HEART FAILURE, UNSPECIFIED (11) COPD with acute exacerbation Code(s): J44.1 - CHRONIC OBSTRUCTIVE PULMONARY DISEASE W (ACUTE) EXACERBATION (12) DM type 2 (diabetes mellitus, type 2) Code(s): E11.9 - TYPE 2 DIABETES MELLITUS WITHOUT COMPLICATIONS Qualifiers: Chronic kidney disease stage: stage 3 (moderate) (13) HTN (hypertension) Code(s): I10 - ESSENTIAL (PRIMARY) HYPERTENSION (14) Leg swelling Code(s): M79.89 - OTHER SPECIFIED SOFT TISSUE DISORDERS (15) Pulmonary hypertension Code(s): I27.20 - PULMONARY HYPERTENSION, UNSPECIFIED (16) Sleep apnea Code(s): G47.30 - SLEEP APNEA, UNSPECIFIED Qualifiers: Sleep apnea type: unspecified type Qualified Code(s): G47.30 - Sleep apnea , unspecified
[2018-04-30] MEDS: COLLAGENASE CLOSTRIDIUM HIST. 30 GRAMS TUBE TP SCH (17:54)
[2018-04-30] MEDS: ATORVASTATIN CA 10 MG TABLET (FP) PO SCH (22:39)
[2018-05-01] MEDS: INSULIN SLIDING SCALE (NOVOLOG) 1 VIAL SQ SCH ×4 (06:00→22:32)
[2018-05-01] MEDS: sitaGLIPtin PHOSPHATE 25 MG TABLET (FP) PO SCH (06:00)
[2018-05-01] MEDS: FUROSEMIDE 100 MG/10 ML INJECTABLE VIAL IVPB SCH ×2 (06:00→15:43)
[2018-05-01] MEDS: LEVOTHYROXINE NA 50 MCG TABLET (FP) PO SCH (06:01)
[2018-05-01 07:25] LABS: BASO % 1.2 % (0-2.0); EOS % 2.9 % (0-4.5); HEMATOCRIT 32.3 % (35.4-49); HEMOGLOBIN 10.6 GM/dL (11.7-16.9); LYMPH % 18.2 % (8-40); MCH 30.8 pg (25.7-33.7); MCHC 32.8 g/dl (32.0-35.9); MEAN PLT VOLUME 8.2 fl (7.5-11.1); MONO % 12.1 % (3.8-10.2); NEUT % 65.6 % (42.8-82.8); PLATELET COUNT 168 K/MM3 (134-434); RBC 3.44 M/mm3 (4.00-5.60); RDW 18.8 % (11.9-15.9); WHITE BLOOD COUNT 6.7 K/mm3 (4.0-10.0)
--- NOTE | 2018-05-01 07:59 | PN ---
Progress Note, Physician Chief Complaint: Sitting in the wheelchair, confused, lethargic, was trying to crawl OOB while on BIPAP. Fall risk was discussed with the staff. History of Present Illness: Cronic hypercarbic respiratory failure. Persistent 6.7cm left basilar atelectasis/consolidation. CABG ASHD. DM type on Levemir/Januvia. CRI/ckd 4. 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 Previous Thoracentesis in the past-neg for malignancy. JUAN-at nights using CPAP. Chronic A.Fib. Combined CHF. Gout. Gouty arthritis. Previous rectal surgery for abscess, fistula at [facility]. - Current Medication List Current Medications: Active Medications Albuterol/Ipratropium (Duoneb -) 1 amp NEB Q6H PRN PRN Reason: SHORTNESS OF BREATH Apixaban (Eliquis -) 2.5 mg PO BID [facility] Last Admin: 04/30/18 22:38 Dose: 2.5 mg Aspirin (Asa -) 81 mg PO DAILY [facility] Last Admin: 04/30/18 09:43 Dose: 81 mg Atorvastatin Calcium (Lipitor -) 10 mg PO HS [facility] Last Admin: 04/30/18 22:39 Dose: 10 mg Colchicine (Colcrys -) 0.6 mg PO DAILY [facility] Last Admin: 04/30/18 09:44 Dose: 0.6 mg Collagenase (Santyl -) 1 applic TP DAILY [facility]; Protocol Last Admin: 04/30/18 17:54 Dose: Not Given Febuxostat (Uloric -) 40 mg PO DAILY [facility] Last Admin: 04/30/18 09:45 Dose: 40 mg Furosemide (Lasix Injection -) 80 mg IVPB BID@0600,1400 [facility] Last Admin: 05/01/18 06:00 Dose: 80 mg Ceftriaxone Sodium 1 gm/ (Dextrose) 50 mls @ 100 mls/hr IVPB DAILY [facility] Last Admin: 04/30/18 09:44 Dose: 100 mls/hr Insulin Aspart (Novolog Vial Sliding Scale -) 1 vial SQ ACHS [facility]; Protocol Last Admin: 05/01/18 06:00 Dose: Not Given Insulin Detemir (Levemir Vial) 30 units SQ BID [facility] Last Admin: 04/30/18 22:38 Dose: 30 units Levothyroxine Sodium (Synthroid -) 50 mcg PO ACBK [facility] Last Admin: 05/01/18 06:01 Dose: 50 mcg Metoprolol Succinate (Toprol Xl -) 50 mg PO BID [facility] Last Admin: 04/30/18 22:39 Dose: 50 mg Non-Formulary Medication (Linaclotide [Linzess]) 290 mcg PO DAILY [facility] Polyethylene Glycol (Miralax (For Daily Use) -) 17 gm PO BID [facility] Last Admin: 04/30/18 22:39 Dose: 17 gm Sitagliptin Phosphate (Januvia -) 25 mg PO DAILY@0700 [facility] Last Admin: 05/01/18 06:00 Dose: 25 mg Spironolactone (Aldactone -) 25 mg PO DAILY [facility] Last Admin: 04/30/18 09:44 Dose: 25 mg Valacyclovir HCl (Valtrex -) 500 mg PO BID [facility] Last Admin: 04/30/18 22:38 Dose: 500 mg - Objective Vital Signs: Vital Signs Temperature 98.3 F 05/01/18 05:50 Pulse Rate 72 05/01/18 05:50 Respiratory Rate 18 05/01/18 05:50 Blood Pressure 127/76 05/01/18 05:50 O2 Sat by Pulse Oximetry (%) 97 04/30/18 20:43 Constitutional: Yes: No Distress, Obese. No: Diaphoresis, Pallor Eyes: Yes: Conjunctiva Clear, EOM Intact HENT: Yes: Atraumatic, Normocephalic. No: Drooling Neck: Yes: Supple, Trachea Midline Cardiovascular: Yes: Pulse Irregular, S1, S2 Respiratory: Yes: On Nasal O2 Gastrointestinal: Yes: Soft, Abdomen, Obese ...Rectal Exam: Yes: Deferred Genitourinary: No: Anuria, Bladder Distention, CVA Tenderness - Left, CVA Tenderness - Right Breast(s): Yes: WNL, Left, Right Musculoskeletal: Yes: Muscle Weakness. No: Muscle Pain Extremities: No: Calf Tenderness, Cold, Cool, Cyanosis, Deformity Edema: Yes Peripheral Pulses WNL: No Integumentary: No: Laceration Wound/Incision: Yes: Well Approximated Neurological: Yes: Alert, Oriented Psychiatric: Yes: Alert, Oriented Labs: CBC, BMP 05/01/18 07:15 INR, PTT INR 1.37 (0.83-1.09) H 04/27/18 11:00 Problem List - Problems (1) ASHD (arteriosclerotic heart disease) Assessment/Plan: IV diuretics Cardiology ECHO Code(s): I25.10 - ATHSCL HEART DISEASE OF [place] CORONARY ARTERY W/O ANG PCTRS (2) Abscess of left buttock Assessment/Plan: Wound care Code(s): L02.31 - CUTANEOUS ABSCESS OF BUTTOCK (3) Acute kidney injury superimposed on CKD Assessment/Plan: Continue f/u of renal fx Code(s): N17.9 - ACUTE KIDNEY FAILURE, UNSPECIFIED; N18.9 - CHRONIC KIDNEY DISEASE, UNSPECIFIED (4) Acute on chronic diastolic CHF (congestive heart failure) Code(s): I50.33 - ACUTE ON CHRONIC DIASTOLIC (CONGESTIVE) HEART FAILURE (5) Acute on chronic respiratory failure with hypoxia and hypercapnia Assessment/Plan: BIPAP, pulmonary consult f/u ABG Code(s): J96.21 - ACUTE AND CHRONIC RESPIRATORY FAILURE WITH HYPOXIA; J96.22 - ACUTE AND CHRONIC RESPIRATORY FAILURE WITH HYPERCAPNIA (6) Acute on chronic systolic (congestive) heart failure Code(s): I50.23 - ACUTE ON CHRONIC SYSTOLIC (CONGESTIVE) HEART FAILURE (7) Pneumonia Assessment/Plan: Iv Zithromax/Ceftriaxone Code(s): J18.9 - PNEUMONIA, UNSPECIFIED ORGANISM Qualifiers: Pneumonia type: due to unspecified organism Laterality: right Lung location: upper lobe of lung Qualified Code(s): J18.1 - Lobar pneumonia, unspecified organism
[2018-05-01 08:02] LABS: ALBUMIN 3.2 g/dl (3.4-5.0); ALK PHOS 62 U/L (45-117); ANION GAP 2 MMOL/L (8-16); BILIRUBIN,TOTAL 0.5 mg/dL (0.2-1); BLOOD UREA NITROGEN 50 mg/dL (7-18); CHLORIDE 96 mmol/L (98-107); CO2 44 mmol/L (21-32); CREATININE 1.9 mg/dL (0.55-1.3); GLUCOSE,RANDOM 85 mg/dL (74-106); MAGNESIUM 2.6 mg/dL (1.8-2.4); POTASSIUM 4.1 mmol/L (3.5-5.1); SGOT/AST 22 U/L (15-37); SGPT/ALT 23 U/L (13-61); SODIUM 141 mmol/L (136-145); TOT PROT 6.4 g/dl (6.4-8.2)
[2018-05-01] MEDS ORDERED: cefTRIAXone SODIUM 1 GM VIAL ONE (08:55)
[2018-05-01] MEDS ORDERED: DEXTROSE 5%-WATER - 50 ML IVPB ONE (08:56)
[2018-05-01] MEDS: COLCHICINE 0.6 MG TABLET (FP) PO SCH (09:12)
[2018-05-01] MEDS: valACYclovir HCL 500 MG TABLET (FP) PO SCH ×2 (09:12→22:32)
[2018-05-01] MEDS: FEBUXOSTAT 40 MG TAB PO SCH (09:12)
[2018-05-01] MEDS: ASPIRIN 81 MG CHEWABLE TABLETS PO SCH (09:12)
[2018-05-01] MEDS: APIXABAN 2.5 MG TABLET PO SCH ×2 (09:12→22:32)
[2018-05-01] MEDS: CEFTRIAXONE 1 GM in DEXTROSE 5%-WATER - 50 ML IVPB SCH (09:12)
[2018-05-01 09:45] LABS: ARTERIAL BLD GAS O2 SATURATION 97.8 % (90-98.9)
[2018-05-01] MEDS: SPIRONOLACTONE 25 MG TABLET (FP) PO SCH (09:50)
[2018-05-01] MEDS: POLYETHYLENE GLYCOL 3350 119 GM BTL PO SCH ×2 (09:53→22:32)
[2018-05-01] MEDS: INSULIN (LEVEMIR) 100 UNITS/ML UNITS SQ SCH ×2 (09:55→22:33)
[2018-05-01 10:38] LABS: ALLENS TEST POSITIVE
[2018-05-01 10:39] LABS: ARTERIAL BLOOD GAS PCO2 70.4 mmHg (35-45)
--- NOTE | 2018-05-01 14:05 | PN ---
Progress Note, Physician History of Present Illness: PULMONARY ALERT,ON NASAL CANNULA COMFORTABLE,-RESP DISTRESS - Current Medication List Current Medications: Active Medications Albuterol/Ipratropium (Duoneb -) 1 amp NEB Q6H PRN PRN Reason: SHORTNESS OF BREATH Apixaban (Eliquis -) 2.5 mg PO BID [facility] Last Admin: 05/01/18 09:12 Dose: 2.5 mg Aspirin (Asa -) 81 mg PO DAILY [facility] Last Admin: 05/01/18 09:12 Dose: 81 mg Atorvastatin Calcium (Lipitor -) 10 mg PO HS [facility] Last Admin: 04/30/18 22:39 Dose: 10 mg Colchicine (Colcrys -) 0.6 mg PO DAILY [facility] Last Admin: 05/01/18 09:12 Dose: 0.6 mg Collagenase (Santyl -) 1 applic TP DAILY [facility]; Protocol Last Admin: 04/30/18 17:54 Dose: Not Given Febuxostat (Uloric -) 40 mg PO DAILY [facility] Last Admin: 05/01/18 09:12 Dose: 40 mg Furosemide (Lasix Injection -) 80 mg IVPB BID@0600,1400 [facility] Last Admin: 05/01/18 06:00 Dose: 80 mg Ceftriaxone Sodium 1 gm/ (Dextrose) 50 mls @ 100 mls/hr IVPB DAILY [facility] Last Admin: 05/01/18 09:12 Dose: 100 mls/hr Insulin Aspart (Novolog Vial Sliding Scale -) 1 vial SQ ACHS [facility]; Protocol Last Admin: 05/01/18 11:27 Dose: Not Given Insulin Detemir (Levemir Vial) 30 units SQ BID [facility] Last Admin: 05/01/18 09:55 Dose: 30 units Levothyroxine Sodium (Synthroid -) 50 mcg PO ACBK [facility] Last Admin: 05/01/18 06:01 Dose: 50 mcg Metoprolol Succinate (Toprol Xl -) 50 mg PO BID [facility] Last Admin: 05/01/18 09:11 Dose: 50 mg Non-Formulary Medication (Linaclotide [Linzess]) 290 mcg PO DAILY [facility] Polyethylene Glycol (Miralax (For Daily Use) -) 17 gm PO BID [facility] Last Admin: 05/01/18 09:53 Dose: 17 gm Sitagliptin Phosphate (Januvia -) 25 mg PO DAILY@0700 [facility] Last Admin: 05/01/18 06:00 Dose: 25 mg Spironolactone (Aldactone -) 25 mg PO DAILY [facility] Last Admin: 05/01/18 09:50 Dose: 25 mg Valacyclovir HCl (Valtrex -) 500 mg PO BID [facility] Last Admin: 05/01/18 09:12 Dose: 500 mg - Objective Vital Signs: Vital Signs Temperature 98.2 F 05/01/18 13:10 Pulse Rate 79 05/01/18 13:10 Respiratory Rate 18 05/01/18 13:10 Blood Pressure 109/65 05/01/18 13:10 O2 Sat by Pulse Oximetry (%) 97 05/01/18 11:20 Constitutional: Yes: Well Nourished, Calm Eyes: Yes: WNL HENT: Yes: WNL Neck: Yes: WNL Cardiovascular: Yes: Pulse Irregular, S1, S2 Respiratory: Yes: Diminished, Rhonchi (FEW RHONCHI) Gastrointestinal: Yes: Normal Bowel Sounds, Soft Extremities: Yes: WNL Edema: Yes Labs: CBC, BMP 05/01/18 07:15 05/01/18 07:15 INR, PTT INR 1.37 (0.83-1.09) H 04/27/18 11:00 Laboratory Tests 05/01/18 09:35 ABG pH 7.40 ABG pCO2 at Pt Temp 70.4 H* ABG pO2 at Pt Temp 100.0 D ABG HCO3 42.5 H* ABG O2 Sat (Measured) 97.8 Problem List - Problems (1) CKD (chronic kidney disease) Code(s): N18.9 - CHRONIC KIDNEY DISEASE, UNSPECIFIED (2) Pneumonia Code(s): J18.9 - PNEUMONIA, UNSPECIFIED ORGANISM Qualifiers: Pneumonia type: due to unspecified organism Laterality: right Lung location: upper lobe of lung Qualified Code(s): J18.1 - Lobar pneumonia, unspecified organism (3) ASHD (arteriosclerotic heart disease) Code(s): I25.10 - ATHSCL HEART DISEASE OF [place] CORONARY ARTERY W/O ANG PCTRS (4) Acute on chronic diastolic CHF (congestive heart failure) Code(s): I50.33 - ACUTE ON CHRONIC DIASTOLIC (CONGESTIVE) HEART FAILURE (5) Acute on chronic respiratory failure with hypoxia and hypercapnia Code(s): J96.21 - ACUTE AND CHRONIC RESPIRATORY FAILURE WITH HYPOXIA; J96.22 - ACUTE AND CHRONIC RESPIRATORY FAILURE WITH HYPERCAPNIA (6) Acute on chronic systolic (congestive) heart failure Code(s): I50.23 - ACUTE ON CHRONIC SYSTOLIC (CONGESTIVE) HEART FAILURE (7) Asbestos pleurisy Code(s): J94.8 - OTHER SPECIFIED PLEURAL CONDITIONS (8) Atrial fibrillation Code(s): I48.91 - UNSPECIFIED ATRIAL FIBRILLATION Qualifiers: Atrial fibrillation type: chronic Qualified Code(s): I48.2 - Chronic atrial fibrillation (9) CAD (coronary artery disease) Code(s): I25.10 - ATHSCL HEART DISEASE OF [place] CORONARY ARTERY W/O ANG PCTRS Qualifiers: Coronary Disease-Associated Artery/Lesion type: bypass graft, autologous artery Associated angina: without angina Qualified Code(s): I25.810 - Atherosclerosis of coronary artery bypass graft(s) without angina pectoris (10) CHF, acute on chronic Code(s): I50.9 - HEART FAILURE, UNSPECIFIED (11) COPD with acute exacerbation Code(s): J44.1 - CHRONIC OBSTRUCTIVE PULMONARY DISEASE W (ACUTE) EXACERBATION (12) DM type 2 (diabetes mellitus, type 2) Code(s): E11.9 - TYPE 2 DIABETES MELLITUS WITHOUT COMPLICATIONS Qualifiers: Chronic kidney disease stage: stage 3 (moderate) (13) HTN (hypertension) Code(s): I10 - ESSENTIAL (PRIMARY) HYPERTENSION (14) Leg swelling Code(s): M79.89 - OTHER SPECIFIED SOFT TISSUE DISORDERS (15) Pulmonary hypertension Code(s): I27.20 - PULMONARY HYPERTENSION, UNSPECIFIED (16) Sleep apnea Code(s): G47.30 - SLEEP APNEA, UNSPECIFIED Qualifiers: Sleep apnea type: unspecified type Qualified Code(s): G47.30 - Sleep apnea , unspecified Assessment/Plan IMP ACUTE ON CHRONIC HYPOXEMIC/HYPERCAPNEIC RESPIRATORY FAILURE IMPROVING RUL PNEUMONIA ACUTE ON CHRONIC CHF ADVANCED COPD O2 DEPENDENT,NOCTURNAL BIPAP AFIB RECENT MRSA BUTTOCK ABSCESS ASHD S/P CAB GOUT ACUTE ON CKD improving JUAN PLAN IV LASIX ABX O2 NIPPV NEEDED F/U ABGS DAILY WT STRICT I+Os MONITOR LYES,RENAL FUNCTION DR HERNANDEZ Problem List - Problems (1) CKD (chronic kidney disease) Code(s): N18.9 - CHRONIC KIDNEY DISEASE, UNSPECIFIED (2) Pneumonia Code(s): J18.9 - PNEUMONIA, UNSPECIFIED ORGANISM Qualifiers: Pneumonia type: due to unspecified organism Laterality: right Lung location: upper lobe of lung Qualified Code(s): J18.1 - Lobar pneumonia, unspecified organism (3) ASHD (arteriosclerotic heart disease) Code(s): I25.10 - ATHSCL HEART DISEASE OF [place] CORONARY ARTERY W/O ANG PCTRS (4) Acute on chronic diastolic CHF (congestive heart failure) Code(s): I50.33 - ACUTE ON CHRONIC DIASTOLIC (CONGESTIVE) HEART FAILURE (5) Acute on chronic respiratory failure with hypoxia and hypercapnia Code(s): J96.21 - ACUTE AND CHRONIC RESPIRATORY FAILURE WITH HYPOXIA; J96.22 - ACUTE AND CHRONIC RESPIRATORY FAILURE WITH HYPERCAPNIA (6) Acute on chronic systolic (congestive) heart failure Code(s): I50.23 - ACUTE ON CHRONIC SYSTOLIC (CONGESTIVE) HEART FAILURE (7) Asbestos pleurisy Code(s): 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 - OTHER SPECIFIED PLEURAL CONDITIONS (8) Atrial fibrillation Code(s): I48.91 - UNSPECIFIED ATRIAL FIBRILLATION Qualifiers: Atrial fibrillation type: chronic Qualified Code(s): I48.2 - Chronic atrial fibrillation (9) CAD (coronary artery disease) Code(s): I25.10 - ATHSCL HEART DISEASE OF [place] CORONARY ARTERY W/O ANG PCTRS Qualifiers: Coronary Disease-Associated Artery/Lesion type: bypass graft, autologous artery Associated angina: without angina Qualified Code(s): I25.810 - Atherosclerosis of coronary artery bypass graft(s) without angina pectoris (10) CHF, acute on chronic Code(s): I50.9 - HEART FAILURE, UNSPECIFIED (11) COPD with acute exacerbation Code(s): J44.1 - CHRONIC OBSTRUCTIVE PULMONARY DISEASE W (ACUTE) EXACERBATION (12) DM type 2 (diabetes mellitus, type 2) Code(s): E11.9 - TYPE 2 DIABETES MELLITUS WITHOUT COMPLICATIONS Qualifiers: Chronic kidney disease stage: stage 3 (moderate) (13) HTN (hypertension) Code(s): I10 - ESSENTIAL (PRIMARY) HYPERTENSION (14) Leg swelling Code(s): M79.89 - OTHER SPECIFIED SOFT TISSUE DISORDERS (15) Pulmonary hypertension Code(s): I27.20 - PULMONARY HYPERTENSION, UNSPECIFIED (16) Sleep apnea Code(s): G47.30 - SLEEP APNEA, UNSPECIFIED Qualifiers: Sleep apnea type: unspecified type Qualified Code(s): G47.30 - Sleep apnea , unspecified
[2018-05-01] MEDS: ATORVASTATIN CA 10 MG TABLET (FP) PO SCH (22:32)
[2018-05-02] MEDS: FUROSEMIDE 100 MG/10 ML INJECTABLE VIAL IVPB SCH ×2 (06:21→14:54)
[2018-05-02] MEDS: sitaGLIPtin PHOSPHATE 25 MG TABLET (FP) PO SCH (06:21)
[2018-05-02] MEDS: INSULIN SLIDING SCALE (NOVOLOG) 1 VIAL SQ SCH ×4 (06:21→22:56)
[2018-05-02] MEDS: LEVOTHYROXINE NA 50 MCG TABLET (FP) PO SCH (06:24)
--- NOTE | 2018-05-02 08:27 | PN ---
Progress Note, Physician Chief Complaint: seen and examined Son at bedside - Current Medication List Current Medications: Active Medications Albuterol/Ipratropium (Duoneb -) 1 amp NEB Q6H PRN PRN Reason: SHORTNESS OF BREATH Apixaban (Eliquis -) 2.5 mg PO BID [facility] Last Admin: 05/01/18 22:32 Dose: 2.5 mg Aspirin (Asa -) 81 mg PO DAILY [facility] Last Admin: 05/01/18 09:12 Dose: 81 mg Atorvastatin Calcium (Lipitor -) 10 mg PO HS [facility] Last Admin: 05/01/18 22:32 Dose: 10 mg Colchicine (Colcrys -) 0.6 mg PO DAILY [facility] Last Admin: 05/01/18 09:12 Dose: 0.6 mg Collagenase (Santyl -) 1 applic TP DAILY [facility]; Protocol Last Admin: 04/30/18 17:54 Dose: Not Given Febuxostat (Uloric -) 40 mg PO DAILY [facility] Last Admin: 05/01/18 09:12 Dose: 40 mg Furosemide (Lasix Injection -) 80 mg IVPB BID@0600,1400 [facility] Last Admin: 05/02/18 06:21 Dose: 80 mg Ceftriaxone Sodium 1 gm/ (Dextrose) 50 mls @ 100 mls/hr IVPB DAILY [facility] Last Admin: 05/01/18 09:12 Dose: 100 mls/hr Insulin Aspart (Novolog Vial Sliding Scale -) 1 vial SQ ACHS [facility]; Protocol Last Admin: 05/02/18 06:21 Dose: Not Given Insulin Detemir (Levemir Vial) 30 units SQ BID [facility] Last Admin: 05/01/18 22:33 Dose: 30 units Levothyroxine Sodium (Synthroid -) 50 mcg PO ACBK [facility] Last Admin: 05/02/18 06:24 Dose: 50 mcg Metoprolol Succinate (Toprol Xl -) 50 mg PO BID [facility] Last Admin: 05/01/18 22:32 Dose: 50 mg Polyethylene Glycol (Miralax (For Daily Use) -) 17 gm PO BID [facility] Last Admin: 05/01/18 22:32 Dose: 17 gm Sitagliptin Phosphate (Januvia -) 25 mg PO DAILY@0700 [facility] Last Admin: 05/02/18 06:21 Dose: 25 mg Spironolactone (Aldactone -) 25 mg PO DAILY [facility] Last Admin: 05/01/18 09:50 Dose: 25 mg Valacyclovir HCl (Valtrex -) 500 mg PO BID [facility] Last Admin: 05/01/18 22:32 Dose: 500 mg - Objective Vital Signs: Vital Signs Temperature 97.7 F 05/02/18 05:18 Pulse Rate 75 05/02/18 05:18 Respiratory Rate 22 H 05/02/18 05:18 Blood Pressure 135/54 L 05/02/18 05:18 O2 Sat by Pulse Oximetry (%) 96 05/01/18 21:00 Constitutional: Yes: No Distress Cardiovascular: Yes: Pulse Irregular Respiratory: Yes: Other (scattered rhonchi and expiratory wheezing) Gastrointestinal: Yes: Soft Edema: Yes Edema: LLE: 2+, RLE: 2+ Neurological: Yes: Alert Labs: CBC, BMP 05/01/18 07:15 INR, PTT INR 1.37 (0.83-1.09) H 04/27/18 11:00 Microbiology 04/27/18 11:00 Blood - Peripheral Venous Blood Culture - Preliminary NO GROWTH OBTAINED AFTER 96 HOURS, INCUBATION TO CONTINUE FOR 1 DAYS. 04/27/18 11:00 Blood - Peripheral Venous Blood Culture - Preliminary NO GROWTH OBTAINED AFTER 96 HOURS, INCUBATION TO CONTINUE FOR 1 DAYS. Laboratory Tests 04/27/18 04/28/18 05/01/18 15:12 06:30 07:15 WBC 6.7 Hgb 10.6 L Hct 32.3 L Plt Count 168 ABG pH 7.42 ABG pCO2 at Pt Temp 61.4 H* ABG O2 Sat (Measured) 95.7 Oxygen Flow Rate Yes Sodium Potassium Chloride Carbon Dioxide Anion Gap BUN Creatinine Creat Clearance w eGFR Random Glucose Calcium B-Natriuretic Peptide 2537.4 H 05/02/18 06:30 WBC Hgb Hct Plt Count ABG pH ABG pCO2 at Pt Temp ABG O2 Sat (Measured) Oxygen Flow Rate Sodium Pending Potassium Pending Chloride Pending Carbon Dioxide Pending Anion Gap Pending BUN Pending Creatinine Pending Creat Clearance w eGFR Pending Random Glucose Pending Calcium Pending B-Natriuretic Peptide Problem List - Problems (1) Pneumonia Code(s): J18.9 - PNEUMONIA, UNSPECIFIED ORGANISM Qualifiers: Pneumonia type: due to unspecified organism Laterality: right Lung location: upper lobe of lung Qualified Code(s): J18.1 - Lobar pneumonia, unspecified organism (2) Respiratory failure with hypoxia and hypercapnia Code(s): J96.91 - RESPIRATORY FAILURE, UNSPECIFIED WITH HYPOXIA; J96.92 - RESPIRATORY FAILURE, UNSPECIFIED WITH HYPERCAPNIA Qualifiers: Chronicity: acute on chronic Qualified Code(s): J96.21 - Acute and chronic respiratory failure with hypoxia; J96.22 - Acute and chronic respiratory failure with hypercapnia (3) ASHD (arteriosclerotic heart disease) Code(s): I25.10 - ATHSCL HEART DISEASE OF [place] CORONARY ARTERY W/O ANG PCTRS (4) Acute kidney injury superimposed on CKD Code(s): N17.9 - ACUTE KIDNEY FAILURE, UNSPECIFIED; N18.9 - CHRONIC KIDNEY DISEASE, UNSPECIFIED (5) Acute on chronic diastolic CHF (congestive heart failure) Code(s): I50.33 - ACUTE ON CHRONIC DIASTOLIC (CONGESTIVE) HEART FAILURE (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 - OTHER SPECIFIED PLEURAL CONDITIONS (7) Atrial fibrillation Code(s): I48.91 - UNSPECIFIED ATRIAL FIBRILLATION Qualifiers: Atrial fibrillation type: chronic Qualified Code(s): I48.2 - Chronic atrial fibrillation (8) DM type 2 (diabetes mellitus, type 2) Code(s): E11.9 - TYPE 2 DIABETES MELLITUS WITHOUT COMPLICATIONS Qualifiers: Chronic kidney disease stage: stage 3 (moderate) (9) Hypoxemia Code(s): R09.02 - HYPOXEMIA (10) Morbid obesity Code(s): E66.01 - MORBID (SEVERE) OBESITY DUE TO EXCESS CALORIES (11) Sleep apnea Code(s): G47.30 - SLEEP APNEA, UNSPECIFIED Qualifiers: Sleep apnea type: unspecified type Qualified Code(s): G47.30 - Sleep apnea , unspecified Assessment/Plan IMP: Acute on chronic respiratory failure, PNA Asbestos lung dz/ ILD JUAN 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 NIPPV/ Supplimental O2/ Abx as per PMD, Pulmonary 2. Agree with IV Lasix as patient remains volume overloaded. 3. Cont Anticoagulation for AF, currently rate controlled on Metoprolol. 4. Hold BETTY/ARB (CKD); on Aldactone. 5. PHTN is secondary to combination of left sided disease (decreased LVEF, diastolic dysfx and chronic lung dz- no specific therapy indicated other than treating underlying primary disease to best degree possible). 6. Pulmonary following.
[2018-05-02 09:01] LABS: ANION GAP 5 MMOL/L (8-16); CALCIUM 8.7 mg/dL (8.5-10.1); CHLORIDE 96 mmol/L (98-107); CO2 41 mmol/L (21-32); CREATININE 1.7 mg/dL (0.55-1.3); GLUCOSE,RANDOM 58 mg/dL (74-106); POTASSIUM 3.9 mmol/L (3.5-5.1); SODIUM 142 mmol/L (136-145)
[2018-05-02] MEDS ORDERED: PT OWN MED DRAWER 7, Y5N ONE (09:40)
[2018-05-02] MEDS ORDERED: DEXTROSE 5%-WATER - 50 ML IVPB ONE (09:41)
[2018-05-02] MEDS ORDERED: cefTRIAXone SODIUM 1 GM VIAL ONE (09:41)
[2018-05-02] MEDS: COLLAGENASE CLOSTRIDIUM HIST. 30 GRAMS TUBE TP SCH ×2 (09:54→17:48)
[2018-05-02] MEDS: ASPIRIN 81 MG CHEWABLE TABLETS PO SCH (09:55)
[2018-05-02] MEDS: APIXABAN 2.5 MG TABLET PO SCH ×2 (09:55→22:55)
[2018-05-02] MEDS: valACYclovir HCL 500 MG TABLET (FP) PO SCH ×2 (09:56→22:57)
[2018-05-02] MEDS: SPIRONOLACTONE 25 MG TABLET (FP) PO SCH (09:56)
[2018-05-02] MEDS: COLCHICINE 0.6 MG TABLET (FP) PO SCH (09:57)
[2018-05-02] MEDS: FEBUXOSTAT 40 MG TAB PO SCH (09:57)
[2018-05-02] MEDS: POLYETHYLENE GLYCOL 3350 119 GM BTL PO SCH ×2 (09:59→22:56)
[2018-05-02] MEDS: CEFTRIAXONE 1 GM in DEXTROSE 5%-WATER - 50 ML IVPB SCH (10:00)
--- NOTE | 2018-05-02 10:18 | PN ---
Progress Note (short form) - Note Progress Note: PULMONARY States breathing the same as yesterday. Currently on BiPAP from overnight. Vital Signs Period Temp Pulse Resp BP Sys/Junior Pulse Ox Last 24 Hr 97.5 F-98.2 F 73-81 18-22 106-137/54-68 95-97 Gen: mildly tachypneic on BiPAP Heart: RRR Lung: distant breath sounds, scattered basilar rales Abd: soft, nontender Ext: distal edema CBC, BMP 05/01/18 07:15 05/02/18 06:30 Active Medications Albuterol/Ipratropium (Duoneb -) 1 amp NEB Q6H PRN PRN Reason: SHORTNESS OF BREATH Apixaban (Eliquis -) 2.5 mg PO BID [facility] Last Admin: 05/02/18 09:55 Dose: 2.5 mg Aspirin (Asa -) 81 mg PO DAILY [facility] Last Admin: 05/02/18 09:55 Dose: 81 mg Atorvastatin Calcium (Lipitor -) 10 mg PO HS [facility] Last Admin: 05/01/18 22:32 Dose: 10 mg Colchicine (Colcrys -) 0.6 mg PO DAILY [facility] Last Admin: 05/02/18 09:57 Dose: 0.6 mg Collagenase (Santyl -) 1 applic TP DAILY [facility]; Protocol Last Admin: 05/02/18 09:54 Dose: Not Given Febuxostat (Uloric -) 40 mg PO DAILY [facility] Last Admin: 05/02/18 09:57 Dose: 40 mg Furosemide (Lasix Injection -) 80 mg IVPB BID@0600,1400 [facility] Last Admin: 05/02/18 06:21 Dose: 80 mg Ceftriaxone Sodium 1 gm/ (Dextrose) 50 mls @ 100 mls/hr IVPB DAILY [facility] Last Admin: 05/02/18 10:00 Dose: 100 mls/hr Insulin Aspart (Novolog Vial Sliding Scale -) 1 vial SQ ACHS [facility]; Protocol Last Admin: 05/02/18 06:21 Dose: Not Given Insulin Detemir (Levemir Vial) 30 units SQ BID [facility] Last Admin: 05/01/18 22:33 Dose: 30 units Levothyroxine Sodium (Synthroid -) 50 mcg PO ACBK [facility] Last Admin: 05/02/18 06:24 Dose: 50 mcg Metoprolol Succinate (Toprol Xl -) 50 mg PO BID [facility] Last Admin: 05/02/18 09:55 Dose: 50 mg Polyethylene Glycol (Miralax (For Daily Use) -) 17 gm PO BID [facility] Last Admin: 05/02/18 09:59 Dose: 17 gm Sitagliptin Phosphate (Januvia -) 25 mg PO DAILY@0700 [facility] Last Admin: 05/02/18 06:21 Dose: 25 mg Spironolactone (Aldactone -) 25 mg PO DAILY [facility] Last Admin: 05/02/18 09:56 Dose: 25 mg Valacyclovir HCl (Valtrex -) 500 mg PO BID [facility] Last Admin: 05/02/18 09:56 Dose: 500 mg A/P Acute on Chronic Hypoxic and Hypercapneic Respiratory Failure Pneumonia Acute on Chronic Systolic Heart Failure Acute on Chronic Renal Failure COPD Interstitial Lung Disease Atrial Fibrillation CAD s/p CABG Obstructive Sleep Apnea - continue lasix, aldactone - monitor urine output, creatinine - continue antibiotics - O2 to keep SpO2 >90% - BiPAP at night and PRN during day - inhaled bronchodilators - rate controlled - continue anticoagulation
[2018-05-02 11:54] LABS: BLOOD UREA NITROGEN 45 mg/dL (7-18)
[2018-05-02] MEDS: INSULIN (LEVEMIR) 100 UNITS/ML UNITS SQ SCH ×2 (12:55→22:55)
--- NOTE | 2018-05-02 13:00 | PN ---
Progress Note, Physician Chief Complaint: Sitting in the room with the son Barber AT THE BEDSIDE. lESS LETHARGIC THAN YESTERDAY History of Present Illness: Cronic hypercarbic respiratory failure. Persistent 6.7cm left basilar atelectasis/consolidation. CABG ASHD. DM type on Levemir/Januvia. CRI/ckd 4. 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 Previous Thoracentesis in the past-neg for malignancy. JUAN-at nights using CPAP. Chronic A.Fib. Combined CHF. Gout. Gouty arthritis. Previous rectal surgery for abscess, fistula at [facility]. - Current Medication List Current Medications: Active Medications Albuterol/Ipratropium (Duoneb -) 1 amp NEB Q6H PRN PRN Reason: SHORTNESS OF BREATH Apixaban (Eliquis -) 2.5 mg PO BID [facility] Last Admin: 05/02/18 09:55 Dose: 2.5 mg Aspirin (Asa -) 81 mg PO DAILY [facility] Last Admin: 05/02/18 09:55 Dose: 81 mg Atorvastatin Calcium (Lipitor -) 10 mg PO HS [facility] Last Admin: 05/01/18 22:32 Dose: 10 mg Colchicine (Colcrys -) 0.6 mg PO DAILY [facility] Last Admin: 05/02/18 09:57 Dose: 0.6 mg Collagenase (Santyl -) 1 applic TP DAILY [facility]; Protocol Last Admin: 05/02/18 09:54 Dose: Not Given Febuxostat (Uloric -) 40 mg PO DAILY [facility] Last Admin: 05/02/18 09:57 Dose: 40 mg Furosemide (Lasix Injection -) 80 mg IVPB BID@0600,1400 [facility] Last Admin: 05/02/18 06:21 Dose: 80 mg Ceftriaxone Sodium 1 gm/ (Dextrose) 50 mls @ 100 mls/hr IVPB DAILY [facility] Last Admin: 05/02/18 10:00 Dose: 100 mls/hr Insulin Aspart (Novolog Vial Sliding Scale -) 1 vial SQ ACHS [facility]; Protocol Last Admin: 05/02/18 12:31 Dose: Not Given Insulin Detemir (Levemir Vial) 30 units SQ BID [facility] Last Admin: 05/02/18 12:55 Dose: 30 units Levothyroxine Sodium (Synthroid -) 50 mcg PO ACBK [facility] Last Admin: 05/02/18 06:24 Dose: 50 mcg Metoprolol Succinate (Toprol Xl -) 50 mg PO BID [facility] Last Admin: 05/02/18 09:55 Dose: 50 mg Polyethylene Glycol (Miralax (For Daily Use) -) 17 gm PO BID [facility] Last Admin: 05/02/18 09:59 Dose: 17 gm Sitagliptin Phosphate (Januvia -) 25 mg PO DAILY@0700 [facility] Last Admin: 05/02/18 06:21 Dose: 25 mg Spironolactone (Aldactone -) 25 mg PO DAILY [facility] Last Admin: 05/02/18 09:56 Dose: 25 mg Valacyclovir HCl (Valtrex -) 500 mg PO BID [facility] Last Admin: 05/02/18 09:56 Dose: 500 mg - Objective Vital Signs: Vital Signs Temperature 98.2 F 05/02/18 08:59 Pulse Rate 81 05/02/18 08:59 Respiratory Rate 21 H 05/02/18 08:59 Blood Pressure 124/68 05/02/18 08:59 O2 Sat by Pulse Oximetry (%) 96 05/01/18 21:00 Constitutional: Yes: Anxious, Moderate Distress Eyes: Yes: Conjunctiva Clear, EOM Intact HENT: Yes: Atraumatic, Normocephalic Neck: Yes: Supple, Trachea Midline Cardiovascular: Yes: Pulse Irregular, S1, S2. No: Bradycardia, Tachycardia Respiratory: Yes: Accessory Muscle Use, Cough, Diminished (b/l) Gastrointestinal: Yes: Soft, Abdomen, Obese, Other (dIARRHEA). No: Ascites, Palpable Mass, Pulsatile Mass, Rectal Bleeding ...Rectal Exam: Yes: Deferred Genitourinary: Yes: CVA Tenderness - Right. No: Anuria, Bladder Distention, CVA Tenderness - Left Breast(s): Yes: WNL Musculoskeletal: No: Back Pain, Joint Stiffness Extremities: No: Amputation, Calf Tenderness, Cold, Cyanosis Edema: Yes Edema: LLE: 3+, RLE: 3+ Peripheral Pulses WNL: No Integumentary: No: Body Piercing, Erythema, Jaundice, Pressure Ulcer, Rash, Skin Tear Neurological: Yes: Alert, Confusion (OCCASIONALLY), Other (brevig mission). No: Dysarthria Psychiatric: Yes: Alert, Oriented. No: Agitated, Suicidal Ideation Labs: CBC, BMP 05/01/18 07:15 05/02/18 06:30 INR, PTT INR 1.37 (0.83-1.09) H 04/27/18 11:00 Problem List - Problems (1) ASHD (arteriosclerotic heart disease) Assessment/Plan: IV diuretics Cardiology ECHO Code(s): I25.10 - ATHSCL HEART DISEASE OF [place] CORONARY ARTERY W/O ANG PCTRS (2) Abscess of left buttock Assessment/Plan: Wound care Code(s): L02.31 - CUTANEOUS ABSCESS OF BUTTOCK (3) Acute kidney injury superimposed on CKD Assessment/Plan: Continue f/u of renal fx Code(s): N17.9 - ACUTE KIDNEY FAILURE, UNSPECIFIED; N18.9 - CHRONIC KIDNEY DISEASE, UNSPECIFIED (4) Acute on chronic diastolic CHF (congestive heart failure) Code(s): I50.33 - ACUTE ON CHRONIC DIASTOLIC (CONGESTIVE) HEART FAILURE (5) Acute on chronic respiratory failure with hypoxia and hypercapnia Assessment/Plan: BIPAP, pulmonary consult f/u ABG Code(s): J96.21 - ACUTE AND CHRONIC RESPIRATORY FAILURE WITH HYPOXIA; J96.22 - ACUTE AND CHRONIC RESPIRATORY FAILURE WITH HYPERCAPNIA (6) Acute on chronic systolic (congestive) heart failure Code(s): I50.23 - ACUTE ON CHRONIC SYSTOLIC (CONGESTIVE) HEART FAILURE (7) Pneumonia Assessment/Plan: Iv Zithromax/Ceftriaxone Code(s): J18.9 - PNEUMONIA, UNSPECIFIED ORGANISM Qualifiers: Pneumonia type: due to unspecified organism Laterality: right Lung location: upper lobe of lung Qualified Code(s): J18.1 - Lobar pneumonia, unspecified organism
[2018-05-02] MEDS: ATORVASTATIN CA 10 MG TABLET (FP) PO SCH (22:56)
[2018-05-03] MEDS ORDERED: INSULIN (NOVOLOG) ASPART 100 UNITS/ML 10ML VIAL ONE (05:36)
[2018-05-03] MEDS: FUROSEMIDE 100 MG/10 ML INJECTABLE VIAL IVPB SCH (06:03)
[2018-05-03] MEDS: LEVOTHYROXINE NA 50 MCG TABLET (FP) PO SCH (06:04)
[2018-05-03] MEDS: INSULIN SLIDING SCALE (NOVOLOG) 1 VIAL SQ SCH ×4 (06:05→22:10)
[2018-05-03] MEDS: sitaGLIPtin PHOSPHATE 25 MG TABLET (FP) PO SCH (06:05)
--- NOTE | 2018-05-03 08:05 | PN ---
Progress Note, Physician Chief Complaint: Still very dyspneic, c/o persistent LE edema History of Present Illness: Cronic hypercarbic respiratory failure. Persistent 6.7cm left basilar atelectasis/consolidation. CABG ASHD. DM type on Levemir/Januvia. CRI/ckd 4. 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 Previous Thoracentesis in the past-neg for malignancy. JUAN-at nights using CPAP. Chronic A.Fib. Combined CHF. Gout. Gouty arthritis. Previous rectal surgery for abscess, fistula at [facility]. - Current Medication List Current Medications: Active Medications Albuterol/Ipratropium (Duoneb -) 1 amp NEB Q6H PRN PRN Reason: SHORTNESS OF BREATH Apixaban (Eliquis -) 2.5 mg PO BID [facility] Last Admin: 05/02/18 22:55 Dose: 2.5 mg Aspirin (Asa -) 81 mg PO DAILY [facility] Last Admin: 05/02/18 09:55 Dose: 81 mg Atorvastatin Calcium (Lipitor -) 10 mg PO HS [facility] Last Admin: 05/02/18 22:56 Dose: 10 mg Colchicine (Colcrys -) 0.6 mg PO DAILY [facility] Last Admin: 05/02/18 09:57 Dose: 0.6 mg Collagenase (Santyl -) 1 applic TP DAILY [facility]; Protocol Last Admin: 05/02/18 17:48 Dose: 1 appful Febuxostat (Uloric -) 40 mg PO DAILY [facility] Last Admin: 05/02/18 09:57 Dose: 40 mg Furosemide (Lasix Injection -) 80 mg IVPB BID@0600,1400 [facility] Last Admin: 05/03/18 06:03 Dose: 80 mg Ceftriaxone Sodium 1 gm/ (Dextrose) 50 mls @ 100 mls/hr IVPB DAILY [facility] Last Admin: 05/02/18 10:00 Dose: 100 mls/hr Insulin Aspart (Novolog Vial Sliding Scale -) 1 vial SQ ACHS [facility]; Protocol Last Admin: 05/03/18 06:05 Dose: Not Given Insulin Detemir (Levemir Vial) 30 units SQ BID [facility] Last Admin: 05/02/18 22:55 Dose: 30 units Levothyroxine Sodium (Synthroid -) 50 mcg PO ACBK [facility] Last Admin: 05/03/18 06:04 Dose: 50 mcg Metoprolol Succinate (Toprol Xl -) 50 mg PO BID [facility] Last Admin: 05/02/18 22:57 Dose: 50 mg Polyethylene Glycol (Miralax (For Daily Use) -) 17 gm PO BID [facility] Last Admin: 05/02/18 22:56 Dose: 17 gm Sitagliptin Phosphate (Januvia -) 25 mg PO DAILY@0700 [facility] Last Admin: 05/03/18 06:05 Dose: 25 mg Spironolactone (Aldactone -) 25 mg PO DAILY [facility] Last Admin: 05/02/18 09:56 Dose: 25 mg Valacyclovir HCl (Valtrex -) 500 mg PO BID [facility] Last Admin: 05/02/18 22:57 Dose: 500 mg - Objective Vital Signs: Vital Signs Temperature 98.2 F 05/03/18 06:00 Pulse Rate 117 H 05/03/18 06:00 Respiratory Rate 20 05/03/18 06:00 Blood Pressure 129/76 05/03/18 06:00 O2 Sat by Pulse Oximetry (%) 96 05/02/18 21:00 Constitutional: Yes: Anxious, Moderate Distress Eyes: Yes: Conjunctiva Clear, EOM Intact HENT: Yes: Atraumatic, Normocephalic, Pharyngeal Erythema Neck: Yes: Supple, Trachea Midline Cardiovascular: Yes: Pulse Irregular. No: JVD Respiratory: Yes: Cough, Diminished, On BiPap Gastrointestinal: Yes: Normal Bowel Sounds, Soft, Abdomen, Obese ...Rectal Exam: Yes: Deferred Genitourinary: No: Anuria, Bladder Distention, CVA Tenderness - Left, CVA Tenderness - Right Breast(s): Yes: WNL Musculoskeletal: No: Joint Swelling Extremities: No: Calf Tenderness, Cold, Cyanosis Edema: Yes Edema: LLE: 3+, RLE: 3+ Peripheral Pulses WNL: No Neurological: Yes: Alert, Oriented. No: Aphasia, Dysarthria ...Motor Strength: WNL Psychiatric: Yes: WNL Additional Findings/Remarks: Laboratory Results - last 24 hr 05/02/18 05/02/18 05/02/18 06:30 11:45 17:46 Sodium 142 Potassium 3.9 Chloride 96 L Carbon Dioxide 41 H Anion Gap 5 L BUN 45 H Creatinine 1.7 H Creat Clearance w eGFR 38.41 POC Glucometer 130 159 Random Glucose 58 L Calcium 8.7 05/02/18 05/03/18 22:53 05:46 Sodium Potassium Chloride Carbon Dioxide Anion Gap BUN Creatinine Creat Clearance w eGFR POC Glucometer 131 116 Random Glucose Calcium Labs: CBC, BMP 05/01/18 07:15 05/02/18 06:30 INR, PTT INR 1.37 (0.83-1.09) H 04/27/18 11:00 Problem List - Problems (1) ASHD (arteriosclerotic heart disease) Assessment/Plan: IV diuretics Cardiology ECHO Code(s): I25.10 - ATHSCL HEART DISEASE OF [place] CORONARY ARTERY W/O ANG PCTRS (2) Abscess of left buttock Assessment/Plan: Wound care Code(s): L02.31 - CUTANEOUS ABSCESS OF BUTTOCK (3) Acute kidney injury superimposed on CKD Assessment/Plan: Continue f/u of renal fx Code(s): N17.9 - ACUTE KIDNEY FAILURE, UNSPECIFIED; N18.9 - CHRONIC KIDNEY DISEASE, UNSPECIFIED (4) Acute on chronic diastolic CHF (congestive heart failure) Code(s): I50.33 - ACUTE ON CHRONIC DIASTOLIC (CONGESTIVE) HEART FAILURE (5) Acute on chronic respiratory failure with hypoxia and hypercapnia Assessment/Plan: BIPAP, pulmonary consult f/u ABG Code(s): J96.21 - ACUTE AND CHRONIC RESPIRATORY FAILURE WITH HYPOXIA; J96.22 - ACUTE AND CHRONIC RESPIRATORY FAILURE WITH HYPERCAPNIA (6) Acute on chronic systolic (congestive) heart failure Code(s): I50.23 - ACUTE ON CHRONIC SYSTOLIC (CONGESTIVE) HEART FAILURE (7) Pneumonia Assessment/Plan: Iv Zithromax/Ceftriaxone Code(s): J18.9 - PNEUMONIA, UNSPECIFIED ORGANISM Qualifiers: Pneumonia type: due to unspecified organism Laterality: right Lung location: upper lobe of lung Qualified Code(s): J18.1 - Lobar pneumonia, unspecified organism
--- NOTE | 2018-05-03 08:39 | PN ---
Progress Note, Physician Chief Complaint: sitting, no distress - Current Medication List Current Medications: Active Medications Albuterol/Ipratropium (Duoneb -) 1 amp NEB Q6H PRN PRN Reason: SHORTNESS OF BREATH Apixaban (Eliquis -) 2.5 mg PO BID [facility] Last Admin: 05/02/18 22:55 Dose: 2.5 mg Aspirin (Asa -) 81 mg PO DAILY [facility] Last Admin: 05/02/18 09:55 Dose: 81 mg Atorvastatin Calcium (Lipitor -) 10 mg PO HS [facility] Last Admin: 05/02/18 22:56 Dose: 10 mg Colchicine (Colcrys -) 0.6 mg PO DAILY [facility] Last Admin: 05/02/18 09:57 Dose: 0.6 mg Collagenase (Santyl -) 1 applic TP DAILY [facility]; Protocol Last Admin: 05/02/18 17:48 Dose: 1 appful Febuxostat (Uloric -) 40 mg PO DAILY [facility] Last Admin: 05/02/18 09:57 Dose: 40 mg Furosemide (Lasix Injection -) 80 mg IVPUSH TID [facility] Ceftriaxone Sodium 1 gm/ (Dextrose) 50 mls @ 100 mls/hr IVPB DAILY [facility] Last Admin: 05/02/18 10:00 Dose: 100 mls/hr Insulin Aspart (Novolog Vial Sliding Scale -) 1 vial SQ ACHS [facility]; Protocol Last Admin: 05/03/18 06:05 Dose: Not Given Insulin Detemir (Levemir Vial) 30 units SQ BID [facility] Last Admin: 05/02/18 22:55 Dose: 30 units Levothyroxine Sodium (Synthroid -) 50 mcg PO ACBK [facility] Last Admin: 05/03/18 06:04 Dose: 50 mcg Metoprolol Succinate (Toprol Xl -) 50 mg PO BID [facility] Last Admin: 05/02/18 22:57 Dose: 50 mg Polyethylene Glycol (Miralax (For Daily Use) -) 17 gm PO BID [facility] Last Admin: 05/02/18 22:56 Dose: 17 gm Sitagliptin Phosphate (Januvia -) 25 mg PO DAILY@0700 [facility] Last Admin: 05/03/18 06:05 Dose: 25 mg Spironolactone (Aldactone -) 25 mg PO DAILY [facility] Last Admin: 05/02/18 09:56 Dose: 25 mg Valacyclovir HCl (Valtrex -) 500 mg PO BID [facility] Last Admin: 05/02/18 22:57 Dose: 500 mg - Objective Vital Signs: Vital Signs Temperature 98.2 F 05/03/18 06:00 Pulse Rate 117 H 05/03/18 06:00 Respiratory Rate 20 05/03/18 06:00 Blood Pressure 129/76 05/03/18 06:00 O2 Sat by Pulse Oximetry (%) 96 05/02/18 21:00 Constitutional: Yes: No Distress, Calm Eyes: Yes: Conjunctiva Clear Cardiovascular: Yes: Pulse Irregular Respiratory: Yes: Rhonchi, Other (no active wheezing) Gastrointestinal: Yes: Soft, Abdomen, Obese Edema: Yes Edema: LLE: 1+, RLE: 1+ Neurological: Yes: Alert, Oriented Labs: CBC, BMP 05/01/18 07:15 05/02/18 06:30 INR, PTT INR 1.37 (0.83-1.09) H 04/27/18 11:00 Microbiology 04/27/18 11:00 Blood - Peripheral Venous Blood Culture - Final NO GROWTH AFTER 5 DAYS INCUBATION 04/27/18 11:00 Blood - Peripheral Venous Blood Culture - Final NO GROWTH AFTER 5 DAYS INCUBATION Laboratory Tests 05/01/18 05/02/18 07:15 06:30 WBC 6.7 Hgb 10.6 L Plt Count 168 Sodium 142 Potassium 3.9 BUN 45 H Creatinine 1.7 H Problem List - Problems (1) Pneumonia Code(s): J18.9 - PNEUMONIA, UNSPECIFIED ORGANISM Qualifiers: Pneumonia type: due to unspecified organism Laterality: right Lung location: upper lobe of lung Qualified Code(s): J18.1 - Lobar pneumonia, unspecified organism (2) Respiratory failure with hypoxia and hypercapnia Code(s): J96.91 - RESPIRATORY FAILURE, UNSPECIFIED WITH HYPOXIA; J96.92 - RESPIRATORY FAILURE, UNSPECIFIED WITH HYPERCAPNIA Qualifiers: Chronicity: acute on chronic Qualified Code(s): J96.21 - Acute and chronic respiratory failure with hypoxia; J96.22 - Acute and chronic respiratory failure with hypercapnia (3) ASHD (arteriosclerotic heart disease) Code(s): I25.10 - ATHSCL HEART DISEASE OF [place] CORONARY ARTERY W/O ANG PCTRS (4) Acute kidney injury superimposed on CKD Code(s): N17.9 - ACUTE KIDNEY FAILURE, UNSPECIFIED; N18.9 - CHRONIC KIDNEY DISEASE, UNSPECIFIED (5) Acute on chronic diastolic CHF (congestive heart failure) Code(s): I50.33 - ACUTE ON CHRONIC DIASTOLIC (CONGESTIVE) HEART FAILURE (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 - OTHER SPECIFIED PLEURAL CONDITIONS (7) Atrial fibrillation Code(s): I48.91 - UNSPECIFIED ATRIAL FIBRILLATION Qualifiers: Atrial fibrillation type: chronic Qualified Code(s): I48.2 - Chronic atrial fibrillation (8) DM type 2 (diabetes mellitus, type 2) Code(s): E11.9 - TYPE 2 DIABETES MELLITUS WITHOUT COMPLICATIONS Qualifiers: Chronic kidney disease stage: stage 3 (moderate) (9) Hypoxemia Code(s): R09.02 - HYPOXEMIA (10) Morbid obesity Code(s): E66.01 - MORBID (SEVERE) OBESITY DUE TO EXCESS CALORIES (11) Sleep apnea Code(s): G47.30 - SLEEP APNEA, UNSPECIFIED Qualifiers: Sleep apnea type: unspecified type Qualified Code(s): G47.30 - Sleep apnea , unspecified Assessment/Plan IMP: Acute on chronic respiratory failure, PNA Asbestos lung dz/ ILD JUAN 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 NIPPV/ Supplimental O2/ Abx as per PMD, Pulmonary 2. Agree with IV Lasix as patient remains volume overloaded but improving. 3. Cont Anticoagulation for AF, currently rate controlled on Metoprolol. 4. Hold BETTY/ARB (CKD); on Aldactone. 5. PHTN is secondary to combination of left sided disease (decreased LVEF, diastolic dysfx and chronic lung dz- no specific therapy indicated other than treating underlying primary disease to best degree possible). 6. Pulmonary following.
[2018-05-03] MEDS ORDERED: cefTRIAXone SODIUM 1 GM VIAL ONE (09:14)
[2018-05-03] MEDS ORDERED: DEXTROSE 5%-WATER - 50 ML IVPB ONE (09:15)
[2018-05-03] MEDS ORDERED: PT OWN MED DRAWER 7, Y5N ONE ×2 (09:16→20:53)
[2018-05-03] MEDS: APIXABAN 2.5 MG TABLET PO SCH ×2 (09:23→22:09)
[2018-05-03] MEDS: COLCHICINE 0.6 MG TABLET (FP) PO SCH (09:24)
[2018-05-03] MEDS: valACYclovir HCL 500 MG TABLET (FP) PO SCH ×2 (09:24→22:11)
[2018-05-03] MEDS: ASPIRIN 81 MG CHEWABLE TABLETS PO SCH (09:24)
[2018-05-03] MEDS: SPIRONOLACTONE 25 MG TABLET (FP) PO SCH (09:24)
[2018-05-03] MEDS: INSULIN (LEVEMIR) 100 UNITS/ML UNITS SQ SCH ×2 (09:25→22:09)
[2018-05-03] MEDS: POLYETHYLENE GLYCOL 3350 119 GM BTL PO SCH ×2 (09:27→22:11)
[2018-05-03] MEDS: CEFTRIAXONE 1 GM in DEXTROSE 5%-WATER - 50 ML IVPB SCH (09:27)
[2018-05-03] MEDS: FEBUXOSTAT 40 MG TAB PO SCH (09:28)
[2018-05-03] MEDS: COLLAGENASE CLOSTRIDIUM HIST. 30 GRAMS TUBE TP SCH (09:28)
[2018-05-03] MEDS: FUROSEMIDE 100 MG/10 ML INJECTABLE VIAL IVPUSH SCH ×2 (13:16→22:09)
--- NOTE | 2018-05-03 13:49 | PN ---
Progress Note, Physician History of Present Illness: pulmonary alert,no distress,less dyspneic,+ episode of hemoptysis earlier - Current Medication List Current Medications: Active Medications Albuterol/Ipratropium (Duoneb -) 1 amp NEB Q6H PRN PRN Reason: SHORTNESS OF BREATH Apixaban (Eliquis -) 2.5 mg PO BID [facility] Last Admin: 05/03/18 09:23 Dose: 2.5 mg Aspirin (Asa -) 81 mg PO DAILY [facility] Last Admin: 05/03/18 09:24 Dose: 81 mg Atorvastatin Calcium (Lipitor -) 10 mg PO HS [facility] Last Admin: 05/02/18 22:56 Dose: 10 mg Colchicine (Colcrys -) 0.6 mg PO DAILY [facility] Last Admin: 05/03/18 09:24 Dose: 0.6 mg Collagenase (Santyl -) 1 applic TP DAILY [facility]; Protocol Last Admin: 05/03/18 09:28 Dose: 1 appful Febuxostat (Uloric -) 40 mg PO DAILY [facility] Last Admin: 05/03/18 09:28 Dose: 40 mg Furosemide (Lasix Injection -) 80 mg IVPUSH TID [facility] Last Admin: 05/03/18 13:16 Dose: 80 mg Ceftriaxone Sodium 1 gm/ (Dextrose) 50 mls @ 100 mls/hr IVPB DAILY [facility] Last Admin: 05/03/18 09:27 Dose: 100 mls/hr Insulin Aspart (Novolog Vial Sliding Scale -) 1 vial SQ ACHS [facility]; Protocol Last Admin: 05/03/18 11:06 Dose: Not Given Insulin Detemir (Levemir Vial) 30 units SQ BID [facility] Last Admin: 05/03/18 09:25 Dose: 30 units Levothyroxine Sodium (Synthroid -) 50 mcg PO ACBK [facility] Last Admin: 05/03/18 06:04 Dose: 50 mcg Metoprolol Succinate (Toprol Xl -) 50 mg PO BID [facility] Last Admin: 05/03/18 09:22 Dose: Not Given Polyethylene Glycol (Miralax (For Daily Use) -) 17 gm PO BID [facility] Last Admin: 05/03/18 09:27 Dose: 17 gm Sitagliptin Phosphate (Januvia -) 25 mg PO DAILY@0700 [facility] Last Admin: 05/03/18 06:05 Dose: 25 mg Spironolactone (Aldactone -) 25 mg PO DAILY [facility] Last Admin: 05/03/18 09:24 Dose: 25 mg Valacyclovir HCl (Valtrex -) 500 mg PO BID [facility] Last Admin: 05/03/18 09:24 Dose: 500 mg - Objective Vital Signs: Vital Signs Temperature 98.3 F 05/03/18 10:00 Pulse Rate 84 05/03/18 10:00 Respiratory Rate 20 05/03/18 10:00 Blood Pressure 98/55 L 05/03/18 10:00 O2 Sat by Pulse Oximetry (%) 93 L 05/03/18 09:00 Constitutional: Yes: Well Nourished, Calm Eyes: Yes: WNL HENT: Yes: WNL Neck: Yes: WNL Cardiovascular: Yes: Pulse Irregular, S1, S2 Respiratory: Yes: Rhonchi Gastrointestinal: Yes: Normal Bowel Sounds, Soft Extremities: Yes: WNL Edema: Yes Labs: CBC, BMP 05/01/18 07:15 Problem List - Problems (1) CKD (chronic kidney disease) Code(s): N18.9 - CHRONIC KIDNEY DISEASE, UNSPECIFIED (2) Pneumonia Code(s): J18.9 - PNEUMONIA, UNSPECIFIED ORGANISM Qualifiers: Pneumonia type: due to unspecified organism Laterality: right Lung location: upper lobe of lung Qualified Code(s): J18.1 - Lobar pneumonia, unspecified organism (3) ASHD (arteriosclerotic heart disease) Code(s): I25.10 - ATHSCL HEART DISEASE OF [place] CORONARY ARTERY W/O ANG PCTRS (4) Acute on chronic diastolic CHF (congestive heart failure) Code(s): I50.33 - ACUTE ON CHRONIC DIASTOLIC (CONGESTIVE) HEART FAILURE (5) Acute on chronic respiratory failure with hypoxia and hypercapnia Code(s): J96.21 - ACUTE AND CHRONIC RESPIRATORY FAILURE WITH HYPOXIA; J96.22 - ACUTE AND CHRONIC RESPIRATORY FAILURE WITH HYPERCAPNIA (6) Acute on chronic systolic (congestive) heart failure Code(s): I50.23 - ACUTE ON CHRONIC SYSTOLIC (CONGESTIVE) HEART FAILURE (7) Asbestos pleurisy Code(s): J94.8 - OTHER SPECIFIED PLEURAL CONDITIONS (8) Atrial fibrillation Code(s): I48.91 - UNSPECIFIED ATRIAL FIBRILLATION Qualifiers: Atrial fibrillation type: chronic Qualified Code(s): I48.2 - Chronic atrial fibrillation (9) CAD (coronary artery disease) Code(s): I25.10 - ATHSCL HEART DISEASE OF [place] CORONARY ARTERY W/O ANG PCTRS Qualifiers: Coronary Disease-Associated Artery/Lesion type: bypass graft, autologous artery Associated angina: without angina Qualified Code(s): I25.810 - Atherosclerosis of coronary artery bypass graft(s) without angina pectoris (10) CHF, acute on chronic Code(s): I50.9 - HEART FAILURE, UNSPECIFIED (11) COPD with acute exacerbation Code(s): J44.1 - CHRONIC OBSTRUCTIVE PULMONARY DISEASE W (ACUTE) EXACERBATION (12) DM type 2 (diabetes mellitus, type 2) Code(s): E11.9 - TYPE 2 DIABETES MELLITUS WITHOUT COMPLICATIONS Qualifiers: Chronic kidney disease stage: stage 3 (moderate) (13) HTN (hypertension) Code(s): I10 - ESSENTIAL (PRIMARY) HYPERTENSION (14) Leg swelling Code(s): M79.89 - OTHER SPECIFIED SOFT TISSUE DISORDERS (15) Pulmonary hypertension Code(s): I27.20 - PULMONARY HYPERTENSION, UNSPECIFIED (16) Sleep apnea Code(s): G47.30 - SLEEP APNEA, UNSPECIFIED Qualifiers: Sleep apnea type: unspecified type Qualified Code(s): G47.30 - Sleep apnea , unspecified Assessment/Plan IMP ACUTE ON CHRONIC HYPOXEMIC/HYPERCAPNEIC RESPIRATORY FAILURE IMPROVING RUL PNEUMONIA ACUTE ON CHRONIC CHF ADVANCED COPD O2 DEPENDENT,NOCTURNAL BIPAP AFIB RECENT MRSA BUTTOCK ABSCESS ASHD S/P CAB GOUT ACUTE ON CKD improving JUAN PLAN IV LASIX ABX O2 NIPPV NEEDED F/U ABGS DAILY WT STRICT I+Os MONITOR LYES,RENAL FUNCTION CHEST X-RAY QUANTIFY HEMOPTYSIS DR HERNANDEZ Problem List - Problems (1) CKD (chronic kidney disease) Code(s): N18.9 - CHRONIC KIDNEY DISEASE, UNSPECIFIED (2) Pneumonia Code(s): J18.9 - PNEUMONIA, UNSPECIFIED ORGANISM Qualifiers: Pneumonia type: due to unspecified organism Laterality: right Lung location: upper lobe of lung Qualified Code(s): J18.1 - Lobar pneumonia, unspecified organism (3) ASHD (arteriosclerotic heart disease) Code(s): I25.10 - ATHSCL HEART DISEASE OF [place] CORONARY ARTERY W/O ANG PCTRS (4) Acute on chronic diastolic CHF (congestive heart failure) Code(s): I50.33 - ACUTE ON CHRONIC DIASTOLIC (CONGESTIVE) HEART FAILURE (5) Acute on chronic respiratory failure with hypoxia and hypercapnia Code(s): J96.21 - ACUTE AND CHRONIC RESPIRATORY FAILURE WITH HYPOXIA; J96.22 - ACUTE AND CHRONIC RESPIRATORY FAILURE WITH HYPERCAPNIA (6) Acute on chronic systolic (congestive) heart failure Code(s): I50.23 - ACUTE ON CHRONIC SYSTOLIC (CONGESTIVE) HEART FAILURE (7) Asbestos pleurisy Code(s): J94.8 - OTHER SPECIFIED PLEURAL CONDITIONS (8) Atrial fibrillation Code(s): I48.91 - UNSPECIFIED ATRIAL FIBRILLATION Qualifiers: Atrial fibrillation type: chronic Qualified Code(s): I48.2 - Chronic atrial fibrillation (9) CAD (coronary artery disease) Code(s): I25.10 - ATHSCL HEART DISEASE OF [place] CORONARY ARTERY W/O ANG PCTRS Qualifiers: Coronary Disease-Associated Artery/Lesion type: bypass graft, autologous artery Associated angina: without angina Qualified Code(s): I25.810 - Atherosclerosis of coronary artery bypass graft(s) without angina pectoris (10) CHF, acute on chronic Code(s): I50.9 - HEART FAILURE, UNSPECIFIED (11) COPD with acute exacerbation Code(s): J44.1 - CHRONIC OBSTRUCTIVE PULMONARY DISEASE W (ACUTE) EXACERBATION (12) DM type 2 (diabetes mellitus, type 2) Code(s): E11.9 - TYPE 2 DIABETES MELLITUS WITHOUT COMPLICATIONS Qualifiers: Chronic kidney disease stage: stage 3 (moderate) (13) HTN (hypertension) Code(s): I10 - ESSENTIAL (PRIMARY) HYPERTENSION (14) Leg swelling Code(s): M79.89 - OTHER SPECIFIED SOFT TISSUE DISORDERS (15) Pulmonary hypertension Code(s): I27.20 - PULMONARY HYPERTENSION, UNSPECIFIED (16) Sleep apnea Code(s): G47.30 - SLEEP APNEA, UNSPECIFIED Qualifiers: Sleep apnea type: unspecified type Qualified Code(s): G47.30 - Sleep apnea , unspecified
[2018-05-03] MEDS: ATORVASTATIN CA 10 MG TABLET (FP) PO SCH (22:11)
[2018-05-04] MEDS: FUROSEMIDE 100 MG/10 ML INJECTABLE VIAL IVPUSH SCH ×2 (06:02→13:14)
[2018-05-04] MEDS: sitaGLIPtin PHOSPHATE 25 MG TABLET (FP) PO SCH (06:02)
[2018-05-04] MEDS: INSULIN SLIDING SCALE (NOVOLOG) 1 VIAL SQ SCH ×4 (06:03→22:43)
[2018-05-04] MEDS: LEVOTHYROXINE NA 50 MCG TABLET (FP) PO SCH (06:03)
[2018-05-04] MEDS: ALBUTEROL SO4 2.5/IPRATROPIUM 0.5 INH SOL 3 ML VIAL.NEB. NEB PRN ×2 (06:46→13:57)
[2018-05-04 07:46] LABS: ANION GAP 1 MMOL/L (8-16); BLOOD UREA NITROGEN 41 mg/dL (7-18); CALCIUM 8.6 mg/dL (8.5-10.1); CHLORIDE 93 mmol/L (98-107); CO2 > 45 mmol/L (21-32); CREATININE 1.8 mg/dL (0.55-1.3); GLUCOSE,RANDOM 71 mg/dL (74-106); POTASSIUM 4.3 mmol/L (3.5-5.1); SODIUM 139 mmol/L (136-145)
--- NOTE | 2018-05-04 08:29 | PN ---
Progress Note, Physician Chief Complaint: Confused on BIPAP ventilation Noted weight down to 235 Bicarb >45 History of Present Illness: Cronic hypercarbic respiratory failure. Persistent 6.7cm left basilar atelectasis/consolidation. CABG ASHD. DM type on Levemir/Januvia. CRI/ckd 4. 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 Previous Thoracentesis in the past-neg for malignancy. JUAN-at nights using CPAP. Chronic A.Fib. Combined CHF. Gout. Gouty arthritis. Previous rectal surgery for abscess, fistula at [facility]. - Current Medication List Current Medications: Active Medications Albuterol/Ipratropium (Duoneb -) 1 amp NEB Q6H PRN PRN Reason: SHORTNESS OF BREATH Last Admin: 05/04/18 06:46 Dose: 1 amp Apixaban (Eliquis -) 2.5 mg PO BID [facility] Last Admin: 05/03/18 22:09 Dose: 2.5 mg Aspirin (Asa -) 81 mg PO DAILY [facility] Last Admin: 05/03/18 09:24 Dose: 81 mg Atorvastatin Calcium (Lipitor -) 10 mg PO HS [facility] Last Admin: 05/03/18 22:11 Dose: 10 mg Colchicine (Colcrys -) 0.6 mg PO DAILY [facility] Last Admin: 05/03/18 09:24 Dose: 0.6 mg Collagenase (Santyl -) 1 applic TP DAILY [facility]; Protocol Last Admin: 05/03/18 09:28 Dose: 1 appful Febuxostat (Uloric -) 40 mg PO DAILY [facility] Last Admin: 05/03/18 09:28 Dose: 40 mg Furosemide (Lasix Injection -) 80 mg IVPUSH BID@0600,1400 [facility] Ceftriaxone Sodium 1 gm/ (Dextrose) 50 mls @ 100 mls/hr IVPB DAILY [facility] Last Admin: 05/03/18 09:27 Dose: 100 mls/hr Insulin Aspart (Novolog Vial Sliding Scale -) 1 vial SQ ACHS [facility]; Protocol Last Admin: 05/04/18 06:03 Dose: Not Given Insulin Detemir (Levemir Vial) 30 units SQ BID [facility] Last Admin: 05/03/18 22:09 Dose: 30 units Levothyroxine Sodium (Synthroid -) 50 mcg PO ACBK [facility] Last Admin: 05/04/18 06:03 Dose: 50 mcg Metoprolol Succinate (Toprol Xl -) 50 mg PO BID [facility] Last Admin: 05/03/18 22:11 Dose: 50 mg Polyethylene Glycol (Miralax (For Daily Use) -) 17 gm PO BID [facility] Last Admin: 05/03/18 22:11 Dose: 17 gm Sitagliptin Phosphate (Januvia -) 25 mg PO DAILY@0700 [facility] Last Admin: 05/04/18 06:02 Dose: 25 mg Spironolactone (Aldactone -) 25 mg PO DAILY [facility] Last Admin: 05/03/18 09:24 Dose: 25 mg Valacyclovir HCl (Valtrex -) 500 mg PO BID [facility] Last Admin: 05/03/18 22:11 Dose: 500 mg - Objective Vital Signs: Vital Signs Temperature 97.4 F L 05/04/18 05:43 Pulse Rate 75 05/04/18 05:43 Respiratory Rate 21 H 05/04/18 05:43 Blood Pressure 125/64 05/04/18 05:43 O2 Sat by Pulse Oximetry (%) 98 05/03/18 21:00 Constitutional: Yes: Moderate Distress, Obese Eyes: Yes: Conjunctiva Clear, EOM Intact HENT: Yes: Atraumatic, Normocephalic Neck: Yes: Supple, Trachea Midline Cardiovascular: Yes: Pulse Irregular, S1, S2 Respiratory: Yes: Regular, CTA Bilaterally Gastrointestinal: Yes: Normal Bowel Sounds, Soft, Abdomen, Obese. No: Ascites ...Rectal Exam: Yes: Deferred Genitourinary: No: Anuria, Bladder Distention Breast(s): Yes: WNL Extremities: No: Calf Tenderness, Cold, Cyanosis Edema: Yes Edema: LLE: 3+, RLE: 3+ Peripheral Pulses WNL: No Integumentary: Yes: WNL Neurological: Yes: Alert, Oriented, Babinski negative, Confusion, Lethargy, Tremors, Unsteady Gait, Weakness. No: Aphasia, Dysarthria, Facial Droop, Seizure ...Motor Strength: WNL Psychiatric: Yes: Alert, Oriented. No: Agitated, Suicidal Ideation Labs: CBC, BMP 05/01/18 07:15 05/04/18 06:07 INR, PTT INR 1.37 (0.83-1.09) H 04/27/18 11:00 Problem List - Problems (1) ASHD (arteriosclerotic heart disease) Assessment/Plan: IV diuretics Cardiology ECHO Code(s): I25.10 - ATHSCL HEART DISEASE OF [place] CORONARY ARTERY W/O ANG PCTRS (2) Abscess of left buttock Assessment/Plan: Wound care Code(s): L02.31 - CUTANEOUS ABSCESS OF BUTTOCK (3) Acute kidney injury superimposed on CKD Assessment/Plan: Continue f/u of renal fx Code(s): N17.9 - ACUTE KIDNEY FAILURE, UNSPECIFIED; N18.9 - CHRONIC KIDNEY DISEASE, UNSPECIFIED (4) Acute on chronic diastolic CHF (congestive heart failure) Code(s): I50.33 - ACUTE ON CHRONIC DIASTOLIC (CONGESTIVE) HEART FAILURE (5) Acute on chronic respiratory failure with hypoxia and hypercapnia Assessment/Plan: BIPAP, pulmonary consult f/u ABG Code(s): J96.21 - ACUTE AND CHRONIC RESPIRATORY FAILURE WITH HYPOXIA; J96.22 - ACUTE AND CHRONIC RESPIRATORY FAILURE WITH HYPERCAPNIA (6) Acute on chronic systolic (congestive) heart failure Assessment/Plan: Lasix 80 mg IV BID Code(s): I50.23 - ACUTE ON CHRONIC SYSTOLIC (CONGESTIVE) HEART FAILURE (7) Pneumonia Assessment/Plan: Iv Zithromax/Ceftriaxone Code(s): J18.9 - PNEUMONIA, UNSPECIFIED ORGANISM Qualifiers: Pneumonia type: due to unspecified organism Laterality: right Lung location: upper lobe of lung Qualified Code(s): J18.1 - Lobar pneumonia, unspecified organism
[2018-05-04] MEDS ORDERED: DEXTROSE 5%-WATER - 50 ML IVPB ONE (08:43)
[2018-05-04] MEDS ORDERED: cefTRIAXone SODIUM 1 GM VIAL ONE (08:43)
[2018-05-04] MEDS ORDERED: PT OWN MED DRAWER 7, Y5N ONE (08:43)
--- NOTE | 2018-05-04 09:09 | PN ---
Progress Note, Physician Chief Complaint: Weight is down 10 lbs No acute distress - Current Medication List Current Medications: Active Medications Albuterol/Ipratropium (Duoneb -) 1 amp NEB Q6H PRN PRN Reason: SHORTNESS OF BREATH Last Admin: 05/04/18 06:46 Dose: 1 amp Apixaban (Eliquis -) 2.5 mg PO BID [facility] Last Admin: 05/03/18 22:09 Dose: 2.5 mg Aspirin (Asa -) 81 mg PO DAILY [facility] Last Admin: 05/03/18 09:24 Dose: 81 mg Atorvastatin Calcium (Lipitor -) 10 mg PO HS [facility] Last Admin: 05/03/18 22:11 Dose: 10 mg Colchicine (Colcrys -) 0.6 mg PO DAILY [facility] Last Admin: 05/03/18 09:24 Dose: 0.6 mg Collagenase (Santyl -) 1 applic TP DAILY [facility]; Protocol Last Admin: 05/03/18 09:28 Dose: 1 appful Febuxostat (Uloric -) 40 mg PO DAILY [facility] Last Admin: 05/03/18 09:28 Dose: 40 mg Furosemide (Lasix Injection -) 80 mg IVPUSH BID@0600,1400 [facility] Ceftriaxone Sodium 1 gm/ (Dextrose) 50 mls @ 100 mls/hr IVPB DAILY [facility] Last Admin: 05/03/18 09:27 Dose: 100 mls/hr Insulin Aspart (Novolog Vial Sliding Scale -) 1 vial SQ ACHS [facility]; Protocol Last Admin: 05/04/18 06:03 Dose: Not Given Insulin Detemir (Levemir Vial) 30 units SQ BID [facility] Last Admin: 05/03/18 22:09 Dose: 30 units Levothyroxine Sodium (Synthroid -) 50 mcg PO ACBK [facility] Last Admin: 05/04/18 06:03 Dose: 50 mcg Metoprolol Succinate (Toprol Xl -) 50 mg PO BID [facility] Last Admin: 05/03/18 22:11 Dose: 50 mg Polyethylene Glycol (Miralax (For Daily Use) -) 17 gm PO BID [facility] Last Admin: 05/03/18 22:11 Dose: 17 gm Sitagliptin Phosphate (Januvia -) 25 mg PO DAILY@0700 [facility] Last Admin: 05/04/18 06:02 Dose: 25 mg Spironolactone (Aldactone -) 25 mg PO DAILY [facility] Last Admin: 05/03/18 09:24 Dose: 25 mg Valacyclovir HCl (Valtrex -) 500 mg PO BID [facility] Last Admin: 05/03/18 22:11 Dose: 500 mg - Objective Vital Signs: Vital Signs Temperature 97.4 F L 05/04/18 05:43 Pulse Rate 75 05/04/18 05:43 Respiratory Rate 21 H 05/04/18 05:43 Blood Pressure 125/64 05/04/18 05:43 O2 Sat by Pulse Oximetry (%) 98 05/03/18 21:00 Constitutional: Yes: No Distress, Calm Cardiovascular: Yes: Regular Rate and Rhythm Respiratory: Yes: Rhonchi Gastrointestinal: Yes: Soft, Abdomen, Obese Edema: Yes Edema: LLE: 1+, RLE: 1+ Neurological: Yes: Alert, Oriented ...Motor Strength: WNL Labs: CBC, BMP 05/01/18 07:15 05/04/18 06:07 INR, PTT INR 1.37 (0.83-1.09) H 04/27/18 11:00 Laboratory Tests 05/01/18 05/04/18 07:15 06:07 WBC 6.7 Hgb 10.6 L Plt Count 168 Sodium 139 Potassium 4.3 BUN 41 H Creatinine 1.8 H Problem List - Problems (1) Pneumonia Code(s): J18.9 - PNEUMONIA, UNSPECIFIED ORGANISM Qualifiers: Pneumonia type: due to unspecified organism Laterality: right Lung location: upper lobe of lung Qualified Code(s): J18.1 - Lobar pneumonia, unspecified organism (2) Respiratory failure with hypoxia and hypercapnia Code(s): J96.91 - RESPIRATORY FAILURE, UNSPECIFIED WITH HYPOXIA; J96.92 - RESPIRATORY FAILURE, UNSPECIFIED WITH HYPERCAPNIA Qualifiers: Chronicity: acute on chronic Qualified Code(s): J96.21 - Acute and chronic respiratory failure with hypoxia; J96.22 - Acute and chronic respiratory failure with hypercapnia (3) ASHD (arteriosclerotic heart disease) Code(s): I25.10 - ATHSCL HEART DISEASE OF [place] CORONARY ARTERY W/O ANG PCTRS (4) Acute kidney injury superimposed on CKD Code(s): N17.9 - ACUTE KIDNEY FAILURE, UNSPECIFIED; N18.9 - CHRONIC KIDNEY DISEASE, UNSPECIFIED (5) Acute on chronic diastolic CHF (congestive heart failure) Code(s): I50.33 - ACUTE ON CHRONIC DIASTOLIC (CONGESTIVE) HEART FAILURE (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 - OTHER SPECIFIED PLEURAL CONDITIONS (7) Atrial fibrillation Code(s): I48.91 - UNSPECIFIED ATRIAL FIBRILLATION Qualifiers: Atrial fibrillation type: chronic Qualified Code(s): I48.2 - Chronic atrial fibrillation (8) DM type 2 (diabetes mellitus, type 2) Code(s): E11.9 - TYPE 2 DIABETES MELLITUS WITHOUT COMPLICATIONS Qualifiers: Chronic kidney disease stage: stage 3 (moderate) (9) Hypoxemia Code(s): R09.02 - HYPOXEMIA (10) Morbid obesity Code(s): E66.01 - MORBID (SEVERE) OBESITY DUE TO EXCESS CALORIES (11) Sleep apnea Code(s): G47.30 - SLEEP APNEA, UNSPECIFIED Qualifiers: Sleep apnea type: unspecified type Qualified Code(s): G47.30 - Sleep apnea , unspecified Assessment/Plan IMP: Acute on chronic respiratory failure, PNA Asbestos lung dz/ ILD JUAN 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 NIPPV/ Supplimental O2/ Abx as per PMD, Pulmonary 2. Agree with IV Lasix as patient remains volume overloaded but improving- down 10 lbs 3. Cont Anticoagulation for AF, currently rate controlled on Metoprolol. 4. Hold BETTY/ARB (CKD); on Aldactone. 5. PHTN is secondary to combination of left sided disease (decreased LVEF, diastolic dysfx and chronic lung dz- no specific therapy indicated other than treating underlying primary disease to best degree possible). 6. Pulmonary following.
[2018-05-04] MEDS: APIXABAN 2.5 MG TABLET PO SCH ×2 (09:34→22:43)
[2018-05-04] MEDS: SPIRONOLACTONE 25 MG TABLET (FP) PO SCH (09:34)
[2018-05-04] MEDS: valACYclovir HCL 500 MG TABLET (FP) PO SCH ×2 (09:34→22:43)
[2018-05-04] MEDS: COLCHICINE 0.6 MG TABLET (FP) PO SCH (09:34)
[2018-05-04] MEDS: ASPIRIN 81 MG CHEWABLE TABLETS PO SCH (09:35)
[2018-05-04] MEDS: CEFTRIAXONE 1 GM in DEXTROSE 5%-WATER - 50 ML IVPB SCH (09:35)
[2018-05-04] MEDS: FEBUXOSTAT 40 MG TAB PO SCH (09:36)
[2018-05-04] MEDS: POLYETHYLENE GLYCOL 3350 119 GM BTL PO SCH ×2 (09:42→22:43)
[2018-05-04] MEDS: INSULIN (LEVEMIR) 100 UNITS/ML UNITS SQ SCH ×2 (09:42→22:43)
[2018-05-04] MEDS: COLLAGENASE CLOSTRIDIUM HIST. 30 GRAMS TUBE TP SCH (09:55)
--- NOTE | 2018-05-04 10:38 | PN ---
Progress Note (short form) - Note Progress Note: PULMONARY States breathing is slowly improving. Episode of hemoptysis yesterday but unable to characterize. Mental status better today. Vital Signs Period Temp Pulse Resp BP Sys/Junior Pulse Ox Last 24 Hr 97.4 F-98.2 F 75-81 20-21 121-142/56-81 98 Gen: less tachypneic Heart: RRR Lung: distant breath sounds, scattered basilar rales Abd: soft, nontender Ext: distal edema CBC, BMP 05/01/18 07:15 05/04/18 06:07 Active Medications Albuterol/Ipratropium (Duoneb -) 1 amp NEB Q6H PRN PRN Reason: SHORTNESS OF BREATH Last Admin: 05/04/18 06:46 Dose: 1 amp Apixaban (Eliquis -) 2.5 mg PO BID [facility] Last Admin: 05/04/18 09:34 Dose: 2.5 mg Aspirin (Asa -) 81 mg PO DAILY [facility] Last Admin: 05/04/18 09:35 Dose: 81 mg Atorvastatin Calcium (Lipitor -) 10 mg PO HS [facility] Last Admin: 05/03/18 22:11 Dose: 10 mg Colchicine (Colcrys -) 0.6 mg PO DAILY [facility] Last Admin: 05/04/18 09:34 Dose: 0.6 mg Collagenase (Santyl -) 1 applic TP DAILY [facility]; Protocol Last Admin: 05/04/18 09:55 Dose: 1 appful Febuxostat (Uloric -) 40 mg PO DAILY [facility] Last Admin: 05/04/18 09:36 Dose: 40 mg Furosemide (Lasix Injection -) 80 mg IVPUSH BID@0600,1400 [facility] Ceftriaxone Sodium 1 gm/ (Dextrose) 50 mls @ 100 mls/hr IVPB DAILY [facility] Last Admin: 05/04/18 09:35 Dose: 100 mls/hr Insulin Aspart (Novolog Vial Sliding Scale -) 1 vial SQ ACHS [facility]; Protocol Last Admin: 05/04/18 06:03 Dose: Not Given Insulin Detemir (Levemir Vial) 30 units SQ BID [facility] Last Admin: 05/04/18 09:42 Dose: 30 units Levothyroxine Sodium (Synthroid -) 50 mcg PO ACBK [facility] Last Admin: 05/04/18 06:03 Dose: 50 mcg Metoprolol Succinate (Toprol Xl -) 50 mg PO BID [facility] Last Admin: 05/04/18 09:34 Dose: 50 mg Polyethylene Glycol (Miralax (For Daily Use) -) 17 gm PO BID [facility] Last Admin: 05/04/18 09:42 Dose: 17 gm Sitagliptin Phosphate (Januvia -) 25 mg PO DAILY@0700 [facility] Last Admin: 05/04/18 06:02 Dose: 25 mg Spironolactone (Aldactone -) 25 mg PO DAILY [facility] Last Admin: 05/04/18 09:34 Dose: 25 mg Valacyclovir HCl (Valtrex -) 500 mg PO BID [facility] Last Admin: 05/04/18 09:34 Dose: 500 mg A/P Acute on Chronic Hypoxic and Hypercapneic Respiratory Failure Pneumonia Acute on Chronic Systolic Heart Failure Acute on Chronic Renal Failure COPD Interstitial Lung Disease Atrial Fibrillation CAD s/p CABG Obstructive Sleep Apnea - continue lasix, aldactone - can trial diamox as needed for metabolic alkalosis - monitor urine output, creatinine - continue antibiotics - O2 to keep SpO2 >90% - BiPAP at night and PRN during day - inhaled bronchodilators - rate controlled - continue anticoagulation - check CXR in AM
[2018-05-04] MEDS ORDERED: INSULIN (NOVOLOG) ASPART 100 UNITS/ML 10ML VIAL ONE (20:05)
[2018-05-04] MEDS: ATORVASTATIN CA 10 MG TABLET (FP) PO SCH (22:43)
[2018-05-05] MEDS: INSULIN SLIDING SCALE (NOVOLOG) 1 VIAL SQ SCH ×4 (06:44→22:27)
[2018-05-05] MEDS: FUROSEMIDE 100 MG/10 ML INJECTABLE VIAL IVPUSH SCH ×2 (06:45→14:35)
[2018-05-05] MEDS: LEVOTHYROXINE NA 50 MCG TABLET (FP) PO SCH (06:45)
[2018-05-05] MEDS: sitaGLIPtin PHOSPHATE 25 MG TABLET (FP) PO SCH (06:45)
[2018-05-05 08:24] LABS: ANION GAP 6 MMOL/L (8-16); BLOOD UREA NITROGEN 45 mg/dL (7-18); CALCIUM 8.4 mg/dL (8.5-10.1); CHLORIDE 91 mmol/L (98-107); CO2 40 mmol/L (21-32); CREATININE 1.8 mg/dL (0.55-1.3); GLUCOSE,RANDOM 82 mg/dL (74-106); POTASSIUM 3.9 mmol/L (3.5-5.1); SODIUM 137 mmol/L (136-145)
--- NOTE | 2018-05-05 09:05 | PN ---
Progress Note, Physician Chief Complaint: Remains lethargic but arousable, LE edema, No significant weight change History of Present Illness: Cronic hypercarbic respiratory failure. Persistent 6.7cm left basilar atelectasis/consolidation. CABG ASHD. DM type on Levemir/Januvia. CRI/ckd 4. 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 Previous Thoracentesis in the past-neg for malignancy. JUAN-at nights using CPAP. Chronic A.Fib. Combined CHF. Gout. Gouty arthritis. Previous rectal surgery for abscess, fistula at [facility]. - Current Medication List Current Medications: Active Medications Apixaban (Eliquis -) 2.5 mg PO BID [facility] Last Admin: 05/04/18 22:43 Dose: 2.5 mg Aspirin (Asa -) 81 mg PO DAILY [facility] Last Admin: 05/04/18 09:35 Dose: 81 mg Atorvastatin Calcium (Lipitor -) 10 mg PO HS [facility] Last Admin: 05/04/18 22:43 Dose: 10 mg Colchicine (Colcrys -) 0.6 mg PO DAILY [facility] Last Admin: 05/04/18 09:34 Dose: 0.6 mg Collagenase (Santyl -) 1 applic TP DAILY [facility]; Protocol Last Admin: 05/04/18 09:55 Dose: 1 appful Febuxostat (Uloric -) 40 mg PO DAILY [facility] Last Admin: 05/04/18 09:36 Dose: 40 mg Furosemide (Lasix Injection -) 80 mg IVPUSH BID@0600,1400 [facility] Last Admin: 05/05/18 06:45 Dose: 80 mg Insulin Aspart (Novolog Vial Sliding Scale -) 1 vial SQ [facility]; Protocol Last Admin: 05/05/18 06:44 Dose: Not Given Insulin Detemir (Levemir Vial) 30 units SQ BID [facility] Last Admin: 05/04/18 22:43 Dose: 30 units Levothyroxine Sodium (Synthroid -) 50 mcg PO ACBK [facility] Last Admin: 05/05/18 06:45 Dose: 50 mcg Metoprolol Succinate (Toprol Xl -) 50 mg PO BID [facility] Last Admin: 05/04/18 22:43 Dose: 50 mg Polyethylene Glycol (Miralax (For Daily Use) -) 17 gm PO BID [facility] Last Admin: 05/04/18 22:43 Dose: 17 gm Sitagliptin Phosphate (Januvia -) 25 mg PO DAILY@0700 [facility] Last Admin: 05/05/18 06:45 Dose: 25 mg Spironolactone (Aldactone -) 25 mg PO DAILY [facility] Last Admin: 05/04/18 09:34 Dose: 25 mg Valacyclovir HCl (Valtrex -) 500 mg PO BID [facility] Last Admin: 05/04/18 22:43 Dose: 500 mg - Objective Vital Signs: Vital Signs Temperature 97.4 F L 05/05/18 08:32 Pulse Rate 70 05/05/18 08:32 Respiratory Rate 05/05/18 08:32 Blood Pressure 102/56 L 05/05/18 08:32 O2 Sat by Pulse Oximetry (%) 95 05/05/18 03:11 Constitutional: Yes: Anxious, Moderate Distress Eyes: Yes: Conjunctiva Clear, EOM Intact HENT: Yes: Atraumatic, Normocephalic Neck: Yes: Supple, Trachea Midline Cardiovascular: Yes: Pulse Irregular Respiratory: Yes: Regular, Diminished Gastrointestinal: Yes: Soft, Abdomen, Obese, Distention. No: Palpable Mass, Tenderness ...Rectal Exam: Yes: Deferred Genitourinary: No: Anuria, Bladder Distention, CVA Tenderness - Left, CVA Tenderness - Right Breast(s): Yes: WNL Musculoskeletal: Yes: WNL Extremities: No: Cold, Cyanosis Edema: Yes Edema: LLE: 3+, RLE: 3+ Peripheral Pulses WNL: No Neurological: Yes: Alert, Oriented ([place]) ...Motor Strength: WNL Psychiatric: Yes: WNL Labs: CBC, BMP 05/01/18 07:15 05/05/18 06:00 INR, PTT INR 1.37 (0.83-1.09) H 04/27/18 11:00 Problem List - Problems (1) ASHD (arteriosclerotic heart disease) Assessment/Plan: IV diuretics Cardiology ECHO Code(s): I25.10 - ATHSCL HEART DISEASE OF [place] CORONARY ARTERY W/O ANG PCTRS (2) Abscess of left buttock Assessment/Plan: Wound care Code(s): L02.31 - CUTANEOUS ABSCESS OF BUTTOCK (3) Acute kidney injury superimposed on CKD Assessment/Plan: Continue f/u of renal fx Code(s): N17.9 - ACUTE KIDNEY FAILURE, UNSPECIFIED; N18.9 - CHRONIC KIDNEY DISEASE, UNSPECIFIED (4) Acute on chronic diastolic CHF (congestive heart failure) Code(s): I50.33 - ACUTE ON CHRONIC DIASTOLIC (CONGESTIVE) HEART FAILURE (5) Acute on chronic respiratory failure with hypoxia and hypercapnia Assessment/Plan: BIPAP, pulmonary consult f/u ABG Code(s): J96.21 - ACUTE AND CHRONIC RESPIRATORY FAILURE WITH HYPOXIA; J96.22 - ACUTE AND CHRONIC RESPIRATORY FAILURE WITH HYPERCAPNIA (6) Acute on chronic systolic (congestive) heart failure Assessment/Plan: Lasix 80 mg IV BID Code(s): I50.23 - ACUTE ON CHRONIC SYSTOLIC (CONGESTIVE) HEART FAILURE (7) Pneumonia Assessment/Plan: Completed IV Ceftriaxone Code(s): J18.9 - PNEUMONIA, UNSPECIFIED ORGANISM Qualifiers: Pneumonia type: due to unspecified organism Laterality: right Lung location: upper lobe of lung Qualified Code(s): J18.1 - Lobar pneumonia, unspecified organism
[2018-05-05] MEDS: APIXABAN 2.5 MG TABLET PO SCH ×2 (10:06→22:26)
[2018-05-05] MEDS: ASPIRIN 81 MG CHEWABLE TABLETS PO SCH (10:06)
[2018-05-05] MEDS: valACYclovir HCL 500 MG TABLET (FP) PO SCH ×2 (10:06→22:25)
[2018-05-05] MEDS: COLCHICINE 0.6 MG TABLET (FP) PO SCH (10:06)
[2018-05-05] MEDS: SPIRONOLACTONE 25 MG TABLET (FP) PO SCH (10:06)
[2018-05-05] MEDS: POLYETHYLENE GLYCOL 3350 119 GM BTL PO SCH ×2 (10:07→22:32)
[2018-05-05] MEDS: COLLAGENASE CLOSTRIDIUM HIST. 30 GRAMS TUBE TP SCH (10:11)
[2018-05-05] MEDS: INSULIN (LEVEMIR) 100 UNITS/ML UNITS SQ SCH ×2 (10:12→22:26)
[2018-05-05] MEDS: FEBUXOSTAT 40 MG TAB PO SCH (10:18)
--- NOTE | 2018-05-05 13:12 | PN ---
Progress Note (short form) - Note Progress Note: PULMONARY SON IS PRESENT PATIENT IS AROUSABLE REMAINS ON NASAL O2 WITH BIPAP AT BEDSIDE vss/afebrile Gen: less tachypneic Heart: RRR Lung: distant breath sounds, scattered basilar rales Abd: soft, nontender Ext: distal edema LABS/MEDS/NOTES/IMAGES/REVIEWED Active Medications reviewed A/P Acute on Chronic Hypoxic and Hypercapneic Respiratory Failure Pneumonia Acute on Chronic Systolic Heart Failure Acute on Chronic Renal Failure COPD Interstitial Lung Disease Atrial Fibrillation CAD s/p CABG Obstructive Sleep Apnea - continue lasix, aldactone - monitor urine output, creatinine - continue antibiotics - O2 to keep SpO2 >90% - BiPAP at night and PRN during day - inhaled bronchodilators - rate controlled - continue anticoagulation - follow CXR David SALAZAR MD
[2018-05-05 14:23] VITALS: BMI 36.9
[2018-05-05] MEDS: ATORVASTATIN CA 10 MG TABLET (FP) PO SCH (22:26)
[2018-05-06] MEDS: FUROSEMIDE 100 MG/10 ML INJECTABLE VIAL IVPUSH SCH ×2 (05:46→14:25)
[2018-05-06] MEDS: sitaGLIPtin PHOSPHATE 25 MG TABLET (FP) PO SCH (06:11)
[2018-05-06] MEDS: INSULIN SLIDING SCALE (NOVOLOG) 1 VIAL SQ SCH ×4 (06:11→21:30)
[2018-05-06] MEDS: LEVOTHYROXINE NA 50 MCG TABLET (FP) PO SCH (06:12)
[2018-05-06 09:29] LABS: BASO % 0.7 % (0-2.0); HEMATOCRIT 32.8 % (35.4-49); LYMPH % 20.2 % (8-40); MCH 30.9 pg (25.7-33.7); MCHC 33.6 g/dl (32.0-35.9); MEAN CELL VOLUME 91.9 fl (80-96); MEAN PLT VOLUME 7.9 fl (7.5-11.1); MONO % 11.3 % (3.8-10.2); NEUT % 64.8 % (42.8-82.8); PLATELET COUNT 187 K/MM3 (134-434); RBC 3.57 M/mm3 (4.00-5.60); RDW 18.9 % (11.9-15.9); WHITE BLOOD COUNT 6.9 K/mm3 (4.0-10.0)
[2018-05-06 10:37] LABS: ALBUMIN 3.4 g/dl (3.4-5.0); ALK PHOS 64 U/L (45-117); ANION GAP 6 MMOL/L (8-16); BILIRUBIN,TOTAL 0.5 mg/dL (0.2-1); BLOOD UREA NITROGEN 43 mg/dL (7-18); CALCIUM 8.4 mg/dL (8.5-10.1); CHLORIDE 91 mmol/L (98-107); CO2 41 mmol/L (21-32); CREATININE 1.9 mg/dL (0.55-1.3); GLUCOSE,RANDOM 152 mg/dL (74-106); SGOT/AST 24 U/L (15-37); SGPT/ALT 26 U/L (13-61); SODIUM 137 mmol/L (136-145); TOT PROT 6.7 g/dl (6.4-8.2)
[2018-05-06] MEDS: INSULIN (LEVEMIR) 100 UNITS/ML UNITS SQ SCH ×2 (10:56→21:29)
[2018-05-06] MEDS: COLCHICINE 0.6 MG TABLET (FP) PO SCH (10:56)
[2018-05-06] MEDS: valACYclovir HCL 500 MG TABLET (FP) PO SCH ×2 (10:56→21:29)
[2018-05-06] MEDS: SPIRONOLACTONE 25 MG TABLET (FP) PO SCH (10:56)
[2018-05-06] MEDS: ASPIRIN 81 MG CHEWABLE TABLETS PO SCH (10:56)
[2018-05-06] MEDS: APIXABAN 2.5 MG TABLET PO SCH ×2 (10:56→21:30)
[2018-05-06] MEDS: POLYETHYLENE GLYCOL 3350 119 GM BTL PO SCH ×2 (10:57→21:29)
[2018-05-06] MEDS: COLLAGENASE CLOSTRIDIUM HIST. 30 GRAMS TUBE TP SCH (10:57)
[2018-05-06] MEDS: FEBUXOSTAT 40 MG TAB PO SCH (10:58)
--- NOTE | 2018-05-06 11:06 | PN ---
Physical Exam: SUBJECTIVE: Patient seen and examined He is alert and awake and no distress no new c/o he ate well HPI Cronic hypercarbic respiratory failure. Persistent 6.7cm left basilar atelectasis/consolidation. CABG ASHD. DM type on Levemir/Januvia. CRI/ckd 4. 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 Previous Thoracentesis in the past-neg for malignancy. JUAN-at nights using CPAP. Chronic A.Fib. Combined CHF. Gout. Gouty arthritis. OBJECTIVE: Vital Signs Period Temp Pulse Resp BP Sys/Junior Pulse Ox Last 24 Hr 97.2 F-98.3 F 71-76 20-20 103-116/50-89 92-97 GENERAL: The patient is awake, alert, and fully oriented, on bipap HEAD: Normal with no signs of trauma. EYES: PERRL, extraocular movements intact, sclera anicteric, conjunctiva clear. No ptosis. ENT: Ears normal, nares patent, oropharynx clear without exudates, moist mucous membranes. NECK: Trachea midline, full range of motion, supple. LUNGS: mild coarse bs HEART: Regular rate and rhythm, S1, S2 without murmur, rub or gallop. ABDOMEN: Soft, nontender, nondistended, normoactive bowel sounds, no guarding, no rebound, no hepatosplenomegaly, no masses. EXTREMITIES: 2+ pulses, warm, well-perfused, no edema. NEUROLOGICAL: alet and awake SKIN: Warm, dry, normal turgor, no rashes or lesions noted Laboratory Results - last 24 hr 05/05/18 05/05/18 05/05/18 11:38 16:41 22:23 WBC RBC Hgb Hct MCV MCH MCHC RDW Plt Count MPV Absolute Neuts (auto) Neutrophils % Lymphocytes % Monocytes % Eosinophils % Basophils % Nucleated RBC % Sodium Potassium Chloride Carbon Dioxide Anion Gap BUN Creatinine Creat Clearance w eGFR POC Glucometer 110 162 155 Random Glucose Calcium Total Bilirubin AST ALT Alkaline Phosphatase Total Protein Albumin 05/06/18 05/06/18 05/06/18 06:08 08:56 08:56 WBC 6.9 RBC 3.57 L Hgb 11.0 L Hct 32.8 L MCV 91.9 MCH 30.9 MCHC 33.6 RDW 18.9 H Plt Count 187 MPV 7.9 Absolute Neuts (auto) 4.5 Neutrophils % 64.8 Lymphocytes % 20.2 Monocytes % 11.3 H Eosinophils % 3.0 Basophils % 0.7 Nucleated RBC % 0 Sodium 137 Potassium 4.0 Chloride 91 L Carbon Dioxide 41 H Anion Gap 6 L BUN 43 H Creatinine 1.9 H Creat Clearance w eGFR 33.78 POC Glucometer 65 Random Glucose 152 H Calcium 8.4 L Total Bilirubin 0.5 AST 24 ALT 26 Alkaline Phosphatase 64 Total Protein 6.7 Albumin 3.4 Active Medications Generic Name Dose Route Start Last Admin Trade Name Frekath PRN Reason Stop Dose Admin Apixaban 2.5 mg 04/27/18 22:00 05/06/18 10:56 Eliquis - PO 2.5 mg BID JOE Administration Aspirin 81 mg 04/28/18 10:00 05/06/18 10:56 Asa - PO 81 mg DAILY [facility] Administration Atorvastatin Calcium 10 mg 04/28/18 22:00 05/05/18 22:26 Lipitor - PO 10 mg HS [facility]E Administration Colchicine 0.6 mg 04/28/18 10:00 05/06/18 10:56 Colcrys - PO 0.6 mg DAILY [facility] Administration Collagenase 1 applic 04/30/18 10:00 05/06/18 10:57 Santyl - TP 1 appful DAILY [facility] Administration Protocol Febuxostat 40 mg 04/28/18 10:00 05/06/18 10:58 Uloric - PO 40 mg DAILY [facility] Administration Furosemide 80 mg 05/04/18 14:00 05/06/18 05:46 Lasix Injection - IVPUSH 80 mg BID@0600,1400 [facility] Administration Insulin Aspart 1 vial 04/27/18 16:30 05/06/18 06:11 Novolog Vial Sliding Scale - SQ Not Given ACHS [facility] Protocol Insulin Detemir 30 units 04/27/18 22:00 05/06/18 10:56 Levemir Vial SQ 30 units BID [facility] Administration Levothyroxine Sodium 50 mcg 04/28/18 07:00 05/06/18 06:12 Synthroid - PO 50 mcg ACBK [facility] Administration Metoprolol Succinate 50 mg 04/27/18 22:00 05/06/18 10:56 Toprol Xl - PO 50 mg BID [facility] Administration Polyethylene Glycol 17 gm 04/27/18 22:00 05/06/18 10:57 Miralax (For Daily Use) - PO 17 gm BID [facility] Administration Sitagliptin Phosphate 25 mg 04/28/18 07:00 05/06/18 06:11 Januvia - PO Not Given DAILY@0700 [facility] Spironolactone 25 mg 04/28/18 10:00 05/06/18 10:56 Aldactone - PO 25 mg DAILY [facility] Administration Valacyclovir HCl 500 mg 04/27/18 22:00 05/06/18 10:56 Valtrex - PO 500 mg BID [facility] Administration - Problems (1) ASHD (arteriosclerotic heart disease) Assessment/Plan: IV diuretics Cardiology ECHO Code(s): I25.10 - ATHSCL HEART DISEASE OF [place] CORONARY ARTERY W/O ANG PCTRS (2) Abscess of left buttock Assessment/Plan: Wound care Code(s): L02.31 - CUTANEOUS ABSCESS OF BUTTOCK (3) Acute kidney injury superimposed on CKD Assessment/Plan: Continue f/u of renal fx Code(s): N17.9 - ACUTE KIDNEY FAILURE, UNSPECIFIED; N18.9 - CHRONIC KIDNEY DISEASE, UNSPECIFIED (4) Acute on chronic diastolic CHF (congestive heart failure) Code(s): I50.33 - ACUTE ON CHRONIC DIASTOLIC (CONGESTIVE) HEART FAILURE (5) Acute on chronic respiratory failure with hypoxia and hypercapnia Assessment/Plan: BIPAP, pulmonary consult f/u Code(s): J96.21 - ACUTE AND CHRONIC RESPIRATORY FAILURE WITH HYPOXIA; J96.22 - ACUTE AND CHRONIC RESPIRATORY FAILURE WITH HYPERCAPNIA (6) Acute on chronic systolic (congestive) heart failure Assessment/Plan: Lasix 80 mg IV BID Code(s): I50.23 - ACUTE ON CHRONIC SYSTOLIC (CONGESTIVE) HEART FAILURE (7) Pneumonia Assessment/Plan: Completed IV Ceftriaxone Code(s): J18.9 - PNEUMONIA, UNSPECIFIED ORGANISM Visit type - Emergency Visit Emergency Visit: No - New Patient This patient is new to me today: Yes Date on this admission: 05/06/18 - Critical Care Critical Care patient: No - Discharge Referral Referred to [facility] Med [facility] No
--- NOTE | 2018-05-06 12:31 | PN ---
Progress Note (short form) - Note Progress Note: PULMONARY Breathing continues to improve. No chest pain. Minimal nonproductive cough. Vital Signs Period Temp Pulse Resp BP Sys/Junior Pulse Ox Last 24 Hr 97.2 F-98.3 F 71-76 20-20 103-116/50-89 92-97 Intake & Output 05/03/18 05/04/18 05/05/18 05/06/18 23:59 23:59 23:59 23:59 Intake Total 1000 930 700 100 Output Total 500 Balance 1000 430 700 100 Weight 108.227 kg 107.002 kg 107.229 kg 106.226 kg Gen: less tachypneic Heart: RRR Lung: distant breath sounds, scattered basilar rales Abd: soft, nontender Ext: distal edema CBC, BMP 05/06/18 08:56 05/06/18 08:56 Active Medications Apixaban (Eliquis -) 2.5 mg PO BID [facility] Last Admin: 05/06/18 10:56 Dose: 2.5 mg Aspirin (Asa -) 81 mg PO DAILY [facility] Last Admin: 05/06/18 10:56 Dose: 81 mg Atorvastatin Calcium (Lipitor -) 10 mg PO HS [facility] Last Admin: 05/05/18 22:26 Dose: 10 mg Colchicine (Colcrys -) 0.6 mg PO DAILY [facility] Last Admin: 05/06/18 10:56 Dose: 0.6 mg Collagenase (Santyl -) 1 applic TP DAILY [facility]; Protocol Last Admin: 05/06/18 10:57 Dose: 1 appful Febuxostat (Uloric -) 40 mg PO DAILY [facility] Last Admin: 05/06/18 10:58 Dose: 40 mg Furosemide (Lasix Injection -) 80 mg IVPUSH BID@0600,1400 [facility] Last Admin: 05/06/18 05:46 Dose: 80 mg Insulin Aspart (Novolog Vial Sliding Scale -) 1 vial SQ ACHS [facility]; Protocol Last Admin: 05/06/18 11:06 Dose: Not Given Insulin Detemir (Levemir Vial) 30 units SQ BID [facility] Last Admin: 05/06/18 10:56 Dose: 30 units Levothyroxine Sodium (Synthroid -) 50 mcg PO ACBK [facility] Last Admin: 05/06/18 06:12 Dose: 50 mcg Metoprolol Succinate (Toprol Xl -) 50 mg PO BID [facility] Last Admin: 05/06/18 10:56 Dose: 50 mg Polyethylene Glycol (Miralax (For Daily Use) -) 17 gm PO BID [facility] Last Admin: 05/06/18 10:57 Dose: 17 gm Sitagliptin Phosphate (Januvia -) 25 mg PO DAILY@0700 [facility] Last Admin: 05/06/18 06:11 Dose: Not Given Spironolactone (Aldactone -) 25 mg PO DAILY [facility] Last Admin: 05/06/18 10:56 Dose: 25 mg Valacyclovir HCl (Valtrex -) 500 mg PO BID [facility] Last Admin: 05/06/18 10:56 Dose: 500 mg A/P Acute on Chronic Hypoxic and Hypercapneic Respiratory Failure Pneumonia Acute on Chronic Systolic Heart Failure Acute on Chronic Renal Failure COPD Interstitial Lung Disease Atrial Fibrillation CAD s/p CABG Obstructive Sleep Apnea - continue lasix, aldactone - monitor urine output, creatinine - continue antibiotics - O2 to keep SpO2 >90% - BiPAP at night and PRN during day - inhaled bronchodilators - rate controlled - continue anticoagulation
[2018-05-06] MEDS: ATORVASTATIN CA 10 MG TABLET (FP) PO SCH (21:30)
[2018-05-07] MEDS: INSULIN SLIDING SCALE (NOVOLOG) 1 VIAL SQ SCH ×4 (06:17→22:25)
[2018-05-07] MEDS: sitaGLIPtin PHOSPHATE 25 MG TABLET (FP) PO SCH (06:57)
[2018-05-07] MEDS: FUROSEMIDE 100 MG/10 ML INJECTABLE VIAL IVPUSH SCH ×2 (06:57→14:25)
[2018-05-07] MEDS: LEVOTHYROXINE NA 50 MCG TABLET (FP) PO SCH (06:58)
[2018-05-07] MEDS ORDERED: PT OWN MED DRAWER 7, Y5N ONE ×2 (09:44→20:19)
[2018-05-07] MEDS: COLCHICINE 0.6 MG TABLET (FP) PO SCH (10:19)
[2018-05-07] MEDS: FEBUXOSTAT 40 MG TAB PO SCH (10:19)
[2018-05-07] MEDS: ASPIRIN 81 MG CHEWABLE TABLETS PO SCH (10:19)
[2018-05-07] MEDS: APIXABAN 2.5 MG TABLET PO SCH ×2 (10:20→22:24)
[2018-05-07] MEDS: valACYclovir HCL 500 MG TABLET (FP) PO SCH ×2 (10:20→22:24)
[2018-05-07] MEDS: SPIRONOLACTONE 25 MG TABLET (FP) PO SCH (10:20)
[2018-05-07] MEDS: INSULIN (LEVEMIR) 100 UNITS/ML UNITS SQ SCH ×2 (10:20→22:25)
[2018-05-07] MEDS: COLLAGENASE CLOSTRIDIUM HIST. 30 GRAMS TUBE TP SCH (10:21)
[2018-05-07] MEDS: POLYETHYLENE GLYCOL 3350 119 GM BTL PO SCH ×2 (10:21→22:27)
--- NOTE | 2018-05-07 10:50 | PN ---
Physical Exam: SUBJECTIVE: Patient seen and examined much better out of bed and he wants to walk , no distress and breathing comfortable he has finished abx for pneumonia OBJECTIVE: Vital Signs Period Temp Pulse Resp BP Sys/Junior Pulse Ox Last 24 Hr 97.7 F-98.4 F 73-76 18-20 95-118/55-65 GENERAL: The patient is awake, alert, , in no acute distress. HEAD: Normal with no signs of trauma. EYES: PERRL, extraocular movements intact, sclera anicteric, conjunctiva clear. No ptosis. ENT: Ears normal, nares patent, oropharynx clear without exudates, moist mucous membranes. NECK: Trachea midline, full range of motion, supple. LUNGS: Breath sounds equal, clear to auscultation bilaterally, no wheezes, no crackles, no accessory muscle use. HEART: Regular rate and rhythm, S1, S2 without murmur, rub or gallop. ABDOMEN: Soft, nontender, nondistended, normoactive bowel sounds, no guarding, no rebound, no hepatosplenomegaly, no masses. EXTREMITIES: 2+ pulses, warm, well-perfused, no edema. NEUROLOGICAL: Cranial nerves II through XII grossly intact. Normal speech, gait not observed. Laboratory Results - last 24 hr 05/06/18 05/06/18 05/06/18 11:04 16:57 21:25 POC Glucometer 177 172 138 05/07/18 05:50 POC Glucometer 64 Active Medications Generic Name Dose Route Start Last Admin Trade Name Freq PRN Reason Stop Dose Admin Apixaban 2.5 mg 04/27/18 22:00 05/07/18 10:20 Eliquis - PO 2.5 mg BID JOE Administration Aspirin 81 mg 04/28/18 10:05/07/18 10:19 Asa - PO 81 mg DAILY JOE Administration Atorvastatin Calcium 10 mg 04/28/18 22:00 05/06/18 21:30 Lipitor - PO 10 mg HS JOE Administration Colchicine 0.6 mg 04/28/18 10:05/07/18 10:19 Colcrys - PO 0.6 mg DAILY JOE Administration Collagenase 1 applic 04/30/18 10:00 05/07/18 10:21 Santyl - TP 1 appful DAILY JOE Administration Protocol Febuxostat 40 mg 04/28/18 10:00 05/07/18 10:19 Uloric - PO 40 mg DAILY JOE Administration Furosemide 80 mg 05/04/18 14:00 05/07/18 06:57 Lasix Injection - IVPUSH 80 mg BID@0600,1400 JOE Administration Insulin Aspart 1 vial 04/27/18 16:30 05/07/18 06:17 Novolog Vial Sliding Scale - SQ Not Given ACHS [facility] Protocol Insulin Detemir 30 units 04/27/18 22:00 05/07/18 10:20 Levemir Vial SQ 30 units BID JOE Administration Levothyroxine Sodium 50 mcg 04/28/18 07:00 05/07/18 06:58 Synthroid - PO 50 mcg ACBK JOE Administration Metoprolol Succinate 50 mg 04/27/18 22:00 05/07/18 10:19 Toprol Xl - PO 50 mg BID JOE Administration Polyethylene Glycol 17 gm 04/27/18 22:00 05/07/18 10:21 Miralax (For Daily Use) - PO 17 gm BID JOE Administration Sitagliptin Phosphate 25 mg 04/28/18 07:00 05/07/18 06:57 Januvia - PO 25 mg DAILY@0700 JOE Administration Spironolactone 25 mg 04/28/18 10:00 05/07/18 10:20 Aldactone - PO 25 mg DAILY JOE Administration Valacyclovir HCl 500 mg 04/27/18 22:00 05/07/18 10:20 Valtrex - PO 500 mg BID JOE Administration ASSESSMENT/PLAN: (1) ASHD (arteriosclerotic heart disease) Assessment/Plan: IV diuretics Cardiology ECHO (2) Abscess of left buttock Assessment/Plan: Wound care better (3) Acute kidney injury superimposed on CKD Assessment/Plan: Continue f/u of renal fx much better cr (4) Acute on chronic respiratory failure with hypoxia and hypercapnia Assessment/Plan: BIPAP, pulmonary consult f/u and nebuliezer and ordered physical therapy Code(s): J96.21 - ACUTE AND CHRONIC RESPIRATORY FAILURE WITH HYPOXIA; J96.22 - ACUTE AND CHRONIC RESPIRATORY FAILURE WITH HYPERCAPNIA (5) Acute on chronic systolic (congestive) heart failure Assessment/Plan: Lasix 80 mg IV BID Code(s): I50.23 - ACUTE ON CHRONIC SYSTOLIC (CONGESTIVE) HEART FAILURE (6) Pneumonia Assessment/Plan: Completed IV Ceftriaxone Code(s): J18.9 - PNEUMONIA, UNSPECIFIED ORGANISM Visit type - Emergency Visit Emergency Visit: Yes ED Registration Date: 04/27/18 Care time: The patient presented to the Emergency Department on the above date and was hospitalized for further evaluation of their emergent condition. - New Patient This patient is new to me today: No - Critical Care Critical Care patient: No - Discharge Referral Referred to [facility] Med P.C.: No
--- NOTE | 2018-05-07 11:35 | PN ---
Progress Note (short form) - Note Progress Note: PULMONARY Some shortness of breath this AM but now resolved. No chest pain. Minimal nonproductive cough. Vital Signs Period Temp Pulse Resp BP Sys/Junior Pulse Ox Last 24 Hr 97.7 F-98.4 F 73-76 18-20 95-118/55-65 Gen: less tachypneic Heart: RRR Lung: distant breath sounds, scattered basilar rales Abd: soft, nontender Ext: + edema CBC, BMP 05/06/18 08:56 05/06/18 08:56 Active Medications Apixaban (Eliquis -) 2.5 mg PO BID [facility] Last Admin: 05/07/18 10:20 Dose: 2.5 mg Aspirin (Asa -) 81 mg PO DAILY [facility] Last Admin: 05/07/18 10:19 Dose: 81 mg Atorvastatin Calcium (Lipitor -) 10 mg PO HS [facility] Last Admin: 05/06/18 21:30 Dose: 10 mg Colchicine (Colcrys -) 0.6 mg PO DAILY [facility] Last Admin: 05/07/18 10:19 Dose: 0.6 mg Collagenase (Santyl -) 1 applic TP DAILY [facility]; Protocol Last Admin: 05/07/18 10:21 Dose: 1 appful Febuxostat (Uloric -) 40 mg PO DAILY [facility] Last Admin: 05/07/18 10:19 Dose: 40 mg Furosemide (Lasix Injection -) 80 mg IVPUSH BID@0600,1400 [facility] Last Admin: 05/07/18 06:57 Dose: 80 mg Insulin Aspart (Novolog Vial Sliding Scale -) 1 vial SQ [facility]; Protocol Last Admin: 05/07/18 06:17 Dose: Not Given Insulin Detemir (Levemir Vial) 30 units SQ BID [facility] Last Admin: 05/07/18 10:20 Dose: 30 units Levothyroxine Sodium (Synthroid -) 50 mcg PO ACBK [facility] Last Admin: 05/07/18 06:58 Dose: 50 mcg Metoprolol Succinate (Toprol Xl -) 50 mg PO BID [facility] Last Admin: 05/07/18 10:19 Dose: 50 mg Polyethylene Glycol (Miralax (For Daily Use) -) 17 gm PO BID [facility] Last Admin: 05/07/18 10:21 Dose: 17 gm Sitagliptin Phosphate (Januvia -) 25 mg PO DAILY@0700 [facility] Last Admin: 05/07/18 06:57 Dose: 25 mg Spironolactone (Aldactone -) 25 mg PO DAILY [facility] Last Admin: 05/07/18 10:20 Dose: 25 mg Valacyclovir HCl (Valtrex -) 500 mg PO BID [facility] Last Admin: 05/07/18 10:20 Dose: 500 mg A/P Acute on Chronic Hypoxic and Hypercapneic Respiratory Failure Pneumonia Acute on Chronic Systolic Heart Failure Acute on Chronic Renal Failure COPD Interstitial Lung Disease Atrial Fibrillation CAD s/p CABG Obstructive Sleep Apnea - check CXR - continue lasix, aldactone - monitor urine output, creatinine - continue antibiotics - O2 to keep SpO2 >90% - BiPAP at night and PRN during day - inhaled bronchodilators - rate controlled - continue anticoagulation
[2018-05-07] MEDS: ATORVASTATIN CA 10 MG TABLET (FP) PO SCH (22:24)
[2018-05-08] MEDS: LEVOTHYROXINE NA 50 MCG TABLET (FP) PO SCH (06:20)
[2018-05-08] MEDS: INSULIN SLIDING SCALE (NOVOLOG) 1 VIAL SQ SCH ×4 (06:20→22:05)
[2018-05-08] MEDS: sitaGLIPtin PHOSPHATE 25 MG TABLET (FP) PO SCH (06:20)
[2018-05-08] MEDS: FUROSEMIDE 100 MG/10 ML INJECTABLE VIAL IVPUSH SCH ×2 (06:20→13:25)
--- NOTE | 2018-05-08 08:29 | PN ---
Progress Note, Physician Chief Complaint: C/o pain in the foot -similar to his usual gout attacks SOB, [place] History of Present Illness: Cronic hypercarbic respiratory failure. Persistent 6.7cm left basilar atelectasis/consolidation. CABG ASHD. DM type on Levemir/Januvia. CRI/ckd 4. 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 Previous Thoracentesis in the past-neg for malignancy. JUAN-at nights using CPAP. Chronic A.Fib. Combined CHF. Gout. Gouty arthritis. Previous rectal surgery for abscess, fistula at [facility]. - Current Medication List Current Medications: Active Medications Apixaban (Eliquis -) 2.5 mg PO BID [facility] Last Admin: 05/07/18 22:24 Dose: 2.5 mg Aspirin (Asa -) 81 mg PO DAILY [facility] Last Admin: 05/07/18 10:19 Dose: 81 mg Atorvastatin Calcium (Lipitor -) 10 mg PO HS [facility] Last Admin: 05/07/18 22:24 Dose: 10 mg Colchicine (Colcrys -) 0.6 mg PO DAILY [facility] Last Admin: 05/07/18 10:19 Dose: 0.6 mg Collagenase (Santyl -) 1 applic TP DAILY [facility]; Protocol Last Admin: 05/07/18 10:21 Dose: 1 appful Febuxostat (Uloric -) 40 mg PO DAILY [facility] Last Admin: 05/07/18 10:19 Dose: 40 mg Furosemide (Lasix Injection -) 80 mg IVPUSH BID@0600,1400 [facility] Last Admin: 05/08/18 06:20 Dose: 80 mg Insulin Aspart (Novolog Vial Sliding Scale -) 1 vial SQ [facility]; Protocol Last Admin: 05/08/18 06:20 Dose: Not Given Insulin Detemir (Levemir Vial) 30 units SQ BID [facility] Last Admin: 05/07/18 22:25 Dose: 30 units Levothyroxine Sodium (Synthroid -) 50 mcg PO ACBK [facility] Last Admin: 05/08/18 06:20 Dose: 50 mcg Metoprolol Succinate (Toprol Xl -) 50 mg PO BID [facility] Last Admin: 05/07/18 22:24 Dose: 50 mg Polyethylene Glycol (Miralax (For Daily Use) -) 17 gm PO BID [facility] Last Admin: 05/07/18 22:27 Dose: 17 gm Sitagliptin Phosphate (Januvia -) 25 mg PO DAILY@0700 [facility] Last Admin: 05/08/18 06:20 Dose: 25 mg Spironolactone (Aldactone -) 25 mg PO DAILY [facility] Last Admin: 05/07/18 10:20 Dose: 25 mg Valacyclovir HCl (Valtrex -) 500 mg PO BID [facility] Last Admin: 05/07/18 22:24 Dose: 500 mg - Objective Vital Signs: Vital Signs Temperature 97.7 F 05/08/18 06:08 Pulse Rate 71 05/08/18 06:08 Respiratory Rate 18 05/08/18 06:08 Blood Pressure 104/52 L 05/08/18 06:08 O2 Sat by Pulse Oximetry (%) 97 05/07/18 21:00 Constitutional: Yes: Anxious, Moderate Distress Eyes: Yes: Conjunctiva Clear, EOM Intact HENT: Yes: Atraumatic, Normocephalic Neck: Yes: Supple, Trachea Midline Cardiovascular: Yes: Pulse Irregular, S1, S2 Respiratory: Yes: Cough, Diminished, On BiPap, Rales (LLL), Rhonchi, SOB Gastrointestinal: Yes: Soft, Abdomen, Obese. No: Ascites, Melena, Pulsatile Mass, Splenomegaly, Tenderness, Tenderness, Rebound ...Rectal Exam: Yes: Deferred Genitourinary: No: Anuria, Bladder Distention, CVA Tenderness - Left, CVA Tenderness - Right Breast(s): Yes: WNL Musculoskeletal: Yes: WNL, Back Pain Extremities: No: Amputation, Calf Tenderness, Cold, Cool, Cyanosis Edema: Yes Peripheral Pulses WNL: No Neurological: Yes: WNL, Alert ...Motor Strength: WNL Psychiatric: Yes: WNL Labs: CBC, BMP 05/06/18 08:56 05/06/18 08:56 INR, PTT INR 1.37 (0.83-1.09) H 04/27/18 11:00 Problem List - Problems (1) ASHD (arteriosclerotic heart disease) Assessment/Plan: IV diuretics Cardiology ECHO Code(s): I25.10 - ATHSCL HEART DISEASE OF [place] CORONARY ARTERY W/O ANG PCTRS (2) Abscess of left buttock Assessment/Plan: Wound care Code(s): L02.31 - CUTANEOUS ABSCESS OF BUTTOCK (3) Acute kidney injury superimposed on CKD Assessment/Plan: Continue f/u of renal fx Code(s): N17.9 - ACUTE KIDNEY FAILURE, UNSPECIFIED; N18.9 - CHRONIC KIDNEY DISEASE, UNSPECIFIED (4) Acute on chronic diastolic CHF (congestive heart failure) Code(s): I50.33 - ACUTE ON CHRONIC DIASTOLIC (CONGESTIVE) HEART FAILURE (5) Acute on chronic respiratory failure with hypoxia and hypercapnia Assessment/Plan: BIPAP, pulmonary consult f/u ABG Code(s): J96.21 - ACUTE AND CHRONIC RESPIRATORY FAILURE WITH HYPOXIA; J96.22 - ACUTE AND CHRONIC RESPIRATORY FAILURE WITH HYPERCAPNIA (6) Acute on chronic systolic (congestive) heart failure Assessment/Plan: Lasix 80 mg IV BID Code(s): I50.23 - ACUTE ON CHRONIC SYSTOLIC (CONGESTIVE) HEART FAILURE (7) Pneumonia Assessment/Plan: Completed IV Ceftriaxone Code(s): J18.9 - PNEUMONIA, UNSPECIFIED ORGANISM Qualifiers: Pneumonia type: due to unspecified organism Laterality: right Lung location: upper lobe of lung Qualified Code(s): J18.1 - Lobar pneumonia, unspecified organism (8) Gout attack Assessment/Plan: PO Prednisone short course awoid NSAIDS due to CKD Colchicine PO Code(s): M10.9 - GOUT, UNSPECIFIED Qualifiers: Gout site: foot Gout etiology: due to renal impairment Laterality: right Qualified Code(s): M10.371 - Gout due to renal impairment, right ankle and foot
[2018-05-08] MEDS ORDERED: PT OWN MED DRAWER 7, Y5N ONE (09:02)
[2018-05-08] MEDS: predniSONE 10 MG TABLET (UD) PO SCH (09:39)
[2018-05-08] MEDS: ASPIRIN 81 MG CHEWABLE TABLETS PO SCH (09:39)
[2018-05-08] MEDS: valACYclovir HCL 500 MG TABLET (FP) PO SCH ×2 (09:39→22:04)
[2018-05-08] MEDS: SPIRONOLACTONE 25 MG TABLET (FP) PO SCH (09:40)
[2018-05-08] MEDS: COLLAGENASE CLOSTRIDIUM HIST. 30 GRAMS TUBE TP SCH (09:40)
[2018-05-08] MEDS: COLCHICINE 0.6 MG TABLET (FP) PO SCH (09:40)
[2018-05-08] MEDS: POLYETHYLENE GLYCOL 3350 119 GM BTL PO SCH ×3 (09:40→22:04)
[2018-05-08] MEDS: APIXABAN 2.5 MG TABLET PO SCH ×2 (09:40→22:03)
[2018-05-08] MEDS: INSULIN (LEVEMIR) 100 UNITS/ML UNITS SQ SCH ×2 (09:41→22:03)
[2018-05-08] MEDS: FEBUXOSTAT 40 MG TAB PO SCH (09:41)
--- NOTE | 2018-05-08 11:41 | PN ---
Progress Note (short form) - Note Progress Note: PULMONARY SON/ ARE PRESENT PATIENT MORE AWAKE REMAINS ON NASAL O2 WITH BIPAP AT BEDSIDE vss/afebrile Gen: less tachypneic Heart: RRR Lung: distant breath sounds, scattered basilar rales Abd: soft, nontender Ext: distal edema LABS/MEDS/NOTES/IMAGES/REVIEWED Active Medications reviewed A/P Acute on Chronic Hypoxic and Hypercapneic Respiratory Failure Pneumonia Acute on Chronic Systolic Heart Failure Acute on Chronic Renal Failure COPD Interstitial Lung Disease Atrial Fibrillation CAD s/p CABG Obstructive Sleep Apnea - continue lasix, aldactone - monitor urine output, creatinine - continue antibiotics - O2 to keep SpO2 >90% - BiPAP at night and PRN during day - inhaled bronchodilators - rate controlled - continue anticoagulation Discussed with son regarding post hospital plans. They are planning to take patient home with services. PT therapy has arrived at bedside to evaluate transfer/ambulatory status. David SALAZAR MD
--- NOTE | 2018-05-08 13:57 | PN ---
Progress Note, Physician Chief Complaint: seen and examined in no distress - Current Medication List Current Medications: Active Medications Apixaban (Eliquis -) 2.5 mg PO BID [facility] Last Admin: 05/08/18 09:40 Dose: 2.5 mg Aspirin (Asa -) 81 mg PO DAILY [facility] Last Admin: 05/08/18 09:39 Dose: 81 mg Atorvastatin Calcium (Lipitor -) 10 mg PO HS [facility] Last Admin: 05/07/18 22:24 Dose: 10 mg Colchicine (Colcrys -) 0.6 mg PO DAILY [facility] Last Admin: 05/08/18 09:40 Dose: 0.6 mg Collagenase (Santyl -) 1 applic TP DAILY [facility]; Protocol Last Admin: 05/08/18 09:40 Dose: 1 appful Febuxostat (Uloric -) 40 mg PO DAILY [facility] Last Admin: 05/08/18 09:41 Dose: 40 mg Furosemide (Lasix Injection -) 80 mg IVPUSH BID@0600,1400 [facility] Last Admin: 05/08/18 13:25 Dose: 80 mg Insulin Aspart (Novolog Vial Sliding Scale -) 1 vial SQ ACHS [facility]; Protocol Last Admin: 05/08/18 11:34 Dose: Not Given Insulin Detemir (Levemir Vial) 30 units SQ BID [facility] Last Admin: 05/08/18 09:41 Dose: Not Given Levothyroxine Sodium (Synthroid -) 50 mcg PO ACBK [facility] Last Admin: 05/08/18 06:20 Dose: 50 mcg Metoprolol Succinate (Toprol Xl -) 50 mg PO BID [facility] Last Admin: 05/08/18 09:40 Dose: 50 mg Polyethylene Glycol (Miralax (For Daily Use) -) 17 gm PO BID [facility] Last Admin: 05/08/18 13:28 Dose: 17 gm Prednisone (Deltasone -) 10 mg PO DAILY [facility] Last Admin: 05/08/18 09:39 Dose: 10 mg Sitagliptin Phosphate (Januvia -) 25 mg PO DAILY@0700 [facility] Last Admin: 05/08/18 06:20 Dose: 25 mg Spironolactone (Aldactone -) 25 mg PO DAILY [facility] Last Admin: 05/08/18 09:40 Dose: 25 mg Valacyclovir HCl (Valtrex -) 500 mg PO BID [facility] Last Admin: 05/08/18 09:39 Dose: 500 mg - Objective Vital Signs: Vital Signs Temperature 98.2 F 05/08/18 09:49 Pulse Rate 85 05/08/18 09:49 Respiratory Rate 18 05/08/18 09:49 Blood Pressure 129/73 05/08/18 09:49 O2 Sat by Pulse Oximetry (%) 100 05/08/18 09:00 Constitutional: Yes: No Distress Cardiovascular: Yes: Pulse Irregular Respiratory: Yes: Rhonchi, Other (No active wheezing.) Gastrointestinal: Yes: Soft, Abdomen, Obese Edema: Yes Edema: LLE: 1+, RLE: 1+ Neurological: Yes: Alert Labs: CBC, BMP 05/06/18 08:56 05/06/18 08:56 INR, PTT INR 1.37 (0.83-1.09) H 04/27/18 11:00 Problem List - Problems (1) Pneumonia Code(s): J18.9 - PNEUMONIA, UNSPECIFIED ORGANISM Qualifiers: Pneumonia type: due to unspecified organism Laterality: right Lung location: upper lobe of lung Qualified Code(s): J18.1 - Lobar pneumonia, unspecified organism (2) Respiratory failure with hypoxia and hypercapnia Code(s): J96.91 - RESPIRATORY FAILURE, UNSPECIFIED WITH HYPOXIA; J96.92 - RESPIRATORY FAILURE, UNSPECIFIED WITH HYPERCAPNIA Qualifiers: Chronicity: acute on chronic Qualified Code(s): J96.21 - Acute and chronic respiratory failure with hypoxia; J96.22 - Acute and chronic respiratory failure with hypercapnia (3) ASHD (arteriosclerotic heart disease) Code(s): I25.10 - ATHSCL HEART DISEASE OF [place] CORONARY ARTERY W/O ANG PCTRS (4) Acute kidney injury superimposed on CKD Code(s): N17.9 - ACUTE KIDNEY FAILURE, UNSPECIFIED; N18.9 - CHRONIC KIDNEY DISEASE, UNSPECIFIED (5) Acute on chronic diastolic CHF (congestive heart failure) Code(s): I50.33 - ACUTE ON CHRONIC DIASTOLIC (CONGESTIVE) HEART FAILURE (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 - OTHER SPECIFIED PLEURAL CONDITIONS (7) Atrial fibrillation Code(s): I48.91 - UNSPECIFIED ATRIAL FIBRILLATION Qualifiers: Atrial fibrillation type: chronic Qualified Code(s): I48.2 - Chronic atrial fibrillation (8) DM type 2 (diabetes mellitus, type 2) Code(s): E11.9 - TYPE 2 DIABETES MELLITUS WITHOUT COMPLICATIONS Qualifiers: Chronic kidney disease stage: stage 3 (moderate) (9) Hypoxemia Code(s): R09.02 - HYPOXEMIA (10) Morbid obesity Code(s): E66.01 - MORBID (SEVERE) OBESITY DUE TO EXCESS CALORIES (11) Sleep apnea Code(s): G47.30 - SLEEP APNEA, UNSPECIFIED Qualifiers: Sleep apnea type: unspecified type Qualified Code(s): G47.30 - Sleep apnea , unspecified Assessment/Plan IMP: Acute on chronic respiratory failure, PNA Asbestos lung dz/ ILD JUAN 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 NIPPV/ Supplimental O2/ Abx as per PMD, Pulmonary 2. Would transition to PO loop diuretic tomorrow. 3. Cont Anticoagulation for AF, currently rate controlled on Metoprolol. 4. Hold BETTY/ARB (CKD); on Aldactone. 5. PHTN is secondary to combination of left sided disease (decreased LVEF, diastolic dysfx and chronic lung dz- no specific therapy indicated other than treating underlying primary disease to best degree possible). 6. Pulmonary following.
[2018-05-08] MEDS: ATORVASTATIN CA 10 MG TABLET (FP) PO SCH (22:04)
[2018-05-09] MEDS: FUROSEMIDE 100 MG/10 ML INJECTABLE VIAL IVPUSH SCH ×2 (05:14→15:25)
[2018-05-09] MEDS: INSULIN SLIDING SCALE (NOVOLOG) 1 VIAL SQ SCH ×4 (06:08→22:35)
[2018-05-09] MEDS: sitaGLIPtin PHOSPHATE 25 MG TABLET (FP) PO SCH (06:08)
[2018-05-09] MEDS: LEVOTHYROXINE NA 50 MCG TABLET (FP) PO SCH (06:08)
[2018-05-09] MEDS ORDERED: PT OWN MED DRAWER 7, Y5N ONE (06:51)
[2018-05-09] MEDS: valACYclovir HCL 500 MG TABLET (FP) PO SCH ×2 (10:53→22:37)
[2018-05-09] MEDS: APIXABAN 2.5 MG TABLET PO SCH ×2 (10:53→22:37)
[2018-05-09] MEDS: COLCHICINE 0.6 MG TABLET (FP) PO SCH (10:53)
[2018-05-09] MEDS: SPIRONOLACTONE 25 MG TABLET (FP) PO SCH (10:53)
[2018-05-09] MEDS: predniSONE 10 MG TABLET (UD) PO SCH (10:54)
[2018-05-09] MEDS: FEBUXOSTAT 40 MG TAB PO SCH (10:54)
[2018-05-09] MEDS: ASPIRIN 81 MG CHEWABLE TABLETS PO SCH (10:54)
[2018-05-09] MEDS: COLLAGENASE CLOSTRIDIUM HIST. 30 GRAMS TUBE TP SCH (10:54)
[2018-05-09] MEDS: POLYETHYLENE GLYCOL 3350 119 GM BTL PO SCH ×2 (10:55→23:34)
[2018-05-09] MEDS: INSULIN (LEVEMIR) 100 UNITS/ML UNITS SQ SCH ×2 (10:59→22:37)
--- NOTE | 2018-05-09 13:00 | PN ---
Progress Note, Physician History of Present Illness: pulmonary no distress,comfortable,-dyspnea,-tachypnea,min cough - Current Medication List Current Medications: Active Medications Apixaban (Eliquis -) 2.5 mg PO BID [facility] Last Admin: 05/09/18 10:53 Dose: 2.5 mg Aspirin (Asa -) 81 mg PO DAILY [facility] Last Admin: 05/09/18 10:54 Dose: 81 mg Atorvastatin Calcium (Lipitor -) 10 mg PO HS [facility] Last Admin: 05/08/18 22:04 Dose: 10 mg Colchicine (Colcrys -) 0.6 mg PO DAILY [facility] Last Admin: 05/09/18 10:53 Dose: 0.6 mg Collagenase (Santyl -) 1 applic TP DAILY [facility]; Protocol Last Admin: 05/09/18 10:54 Dose: 1 appful Febuxostat (Uloric -) 40 mg PO DAILY [facility] Last Admin: 05/09/18 10:54 Dose: 40 mg Furosemide (Lasix Injection -) 80 mg IVPUSH BID@0600,1400 [facility] Last Admin: 05/09/18 05:14 Dose: 80 mg Insulin Aspart (Novolog Vial Sliding Scale -) [address] [facility]; Protocol Last Admin: 05/09/18 06:08 Dose: Not Given Insulin Detemir (Levemir Vial) 30 units SQ BID [facility] Last Admin: 05/09/18 10:59 Dose: 30 units Levothyroxine Sodium (Synthroid -) 50 mcg PO ACBK [facility] Last Admin: 05/09/18 06:08 Dose: 50 mcg Metoprolol Succinate (Toprol Xl -) 50 mg PO BID [facility] Last Admin: 05/09/18 10:54 Dose: 50 mg Polyethylene Glycol (Miralax (For Daily Use) -) 17 gm PO BID [facility] Last Admin: 05/09/18 10:55 Dose: 17 gm Prednisone (Deltasone -) 10 mg PO DAILY [facility] Last Admin: 05/09/18 10:54 Dose: 10 mg Sitagliptin Phosphate (Januvia -) 25 mg PO DAILY@0700 [facility] Last Admin: 05/09/18 06:08 Dose: 25 mg Spironolactone (Aldactone -) 25 mg PO DAILY [facility] Last Admin: 05/09/18 10:53 Dose: 25 mg Valacyclovir HCl (Valtrex -) 500 mg PO BID [facility] Last Admin: 05/09/18 10:53 Dose: 500 mg - Objective Vital Signs: Vital Signs Temperature 97.4 F L 05/09/18 06:00 Pulse Rate 62 05/09/18 06:00 Respiratory Rate 20 05/09/18 06:00 Blood Pressure 105/57 L 05/09/18 06:00 O2 Sat by Pulse Oximetry (%) 99 05/08/18 21:00 Constitutional: Yes: Well Nourished, Calm Eyes: Yes: WNL HENT: Yes: WNL Neck: Yes: WNL Cardiovascular: Yes: Pulse Irregular, S1, S2 Respiratory: Yes: Diminished Gastrointestinal: Yes: Normal Bowel Sounds, Soft Extremities: Yes: WNL Edema: Yes Labs: CBC, BM Problem List - Problems (1) CKD (chronic kidney disease) Code(s): N18.9 - CHRONIC KIDNEY DISEASE, UNSPECIFIED (2) Pneumonia Code(s): J18.9 - PNEUMONIA, UNSPECIFIED ORGANISM Qualifiers: Pneumonia type: due to unspecified organism Laterality: right Lung location: upper lobe of lung Qualified Code(s): J18.1 - Lobar pneumonia, unspecified organism (3) ASHD (arteriosclerotic heart disease) Code(s): I25.10 - ATHSCL HEART DISEASE OF [place] CORONARY ARTERY W/O ANG PCTRS (4) Acute on chronic diastolic CHF (congestive heart failure) Code(s): I50.33 - ACUTE ON CHRONIC DIASTOLIC (CONGESTIVE) HEART FAILURE (5) Acute on chronic respiratory failure with hypoxia and hypercapnia Code(s): J96.21 - ACUTE AND CHRONIC RESPIRATORY FAILURE WITH HYPOXIA; J96.22 - ACUTE AND CHRONIC RESPIRATORY FAILURE WITH HYPERCAPNIA (6) Acute on chronic systolic (congestive) heart failure Code(s): I50.23 - ACUTE ON CHRONIC SYSTOLIC (CONGESTIVE) HEART FAILURE (7) Asbestos pleurisy Code(s): J94.8 - OTHER SPECIFIED PLEURAL CONDITIONS (8) Atrial fibrillation Code(s): I48.91 - UNSPECIFIED ATRIAL FIBRILLATION Qualifiers: Atrial fibrillation type: chronic Qualified Code(s): I48.2 - Chronic atrial fibrillation (9) CAD (coronary artery disease) Code(s): I25.10 - ATHSCL HEART DISEASE OF [place] CORONARY ARTERY W/O ANG PCTRS Qualifiers: Coronary Disease-Associated Artery/Lesion type: bypass graft, autologous artery Associated angina: without angina Qualified Code(s): I25.810 - Atherosclerosis of coronary artery bypass graft(s) without angina pectoris (10) CHF, acute on chronic Code(s): I50.9 - HEART FAILURE, UNSPECIFIED (11) COPD with acute exacerbation Code(s): J44.1 - CHRONIC OBSTRUCTIVE PULMONARY DISEASE W (ACUTE) EXACERBATION (12) DM type 2 (diabetes mellitus, type 2) Code(s): E11.9 - TYPE 2 DIABETES MELLITUS WITHOUT COMPLICATIONS Qualifiers: Chronic kidney disease stage: stage 3 (moderate) (13) HTN (hypertension) Code(s): I10 - ESSENTIAL (PRIMARY) HYPERTENSION (14) Leg swelling Code(s): M79.89 - OTHER SPECIFIED SOFT TISSUE DISORDERS (15) Pulmonary hypertension Code(s): I27.20 - PULMONARY HYPERTENSION, UNSPECIFIED (16) Sleep apnea Code(s): G47.30 - SLEEP APNEA, UNSPECIFIED Qualifiers: Sleep apnea type: unspecified type Qualified Code(s): G47.30 - Sleep apnea , unspecified Assessment/Plan IMP ACUTE ON CHRONIC HYPOXEMIC/HYPERCAPNEIC RESPIRATORY FAILURE IMPROVING RUL PNEUMONIA ACUTE ON CHRONIC CHF ADVANCED COPD O2 DEPENDENT,NOCTURNAL BIPAP AFIB RECENT MRSA BUTTOCK ABSCESS ASHD S/P CAB GOUT ACUTE ON CKD improving JUAN PLAN IV LASIX,aldactone O2 NIPPV NEEDED F/U ABGS DAILY WT STRICT I+Os MONITOR LYES,RENAL FUNCTION DR HERNANDEZ Problem List - Problems (1) CKD (chronic kidney disease) Code(s): N18.9 - CHRONIC KIDNEY DISEASE, UNSPECIFIED (2) Pneumonia Code(s): J18.9 - PNEUMONIA, UNSPECIFIED ORGANISM Qualifiers: Pneumonia type: due to unspecified organism Laterality: right Lung location: upper lobe of lung Qualified Code(s): J18.1 - Lobar pneumonia, unspecified organism (3) ASHD (arteriosclerotic heart disease) Code(s): I25.10 - ATHSCL HEART DISEASE OF [place] CORONARY ARTERY W/O ANG PCTRS (4) Acute on chronic diastolic CHF (congestive heart failure) Code(s): I50.33 - ACUTE ON CHRONIC DIASTOLIC (CONGESTIVE) HEART FAILURE (5) Acute on chronic respiratory failure with hypoxia and hypercapnia Code(s): J96.21 - ACUTE AND CHRONIC RESPIRATORY FAILURE WITH HYPOXIA; J96.22 - ACUTE AND CHRONIC RESPIRATORY FAILURE WITH HYPERCAPNIA (6) Acute on chronic systolic (congestive) heart failure Code(s): I50.23 - ACUTE ON CHRONIC SYSTOLIC (CONGESTIVE) HEART FAILURE (7) Asbestos pleurisy Code(s): J94.8 - OTHER SPECIFIED PLEURAL CONDITIONS (8) Atrial fibrillation Code(s): I48.91 - UNSPECIFIED ATRIAL FIBRILLATION Qualifiers: Atrial fibrillation type: chronic Qualified Code(s): I48.2 - Chronic atrial fibrillation (9) CAD (coronary artery disease) Code(s): I25.10 - ATHSCL HEART DISEASE OF [place] CORONARY ARTERY W/O ANG PCTRS Qualifiers: Coronary Disease-Associated Artery/Lesion type: bypass graft, autologous artery Associated angina: without angina Qualified Code(s): I25.810 - Atherosclerosis of coronary artery bypass graft(s) without angina pectoris (10) CHF, acute on chronic Code(s): I50.9 - HEART FAILURE, UNSPECIFIED (11) COPD with acute exacerbation Code(s): J44.1 - CHRONIC OBSTRUCTIVE PULMONARY DISEASE W (ACUTE) EXACERBATION (12) DM type 2 (diabetes mellitus, type 2) Code(s): E11.9 - TYPE 2 DIABETES MELLITUS WITHOUT COMPLICATIONS Qualifiers: Chronic kidney disease stage: stage 3 (moderate) (13) HTN (hypertension) Code(s): I10 - ESSENTIAL (PRIMARY) HYPERTENSION (14) Leg swelling Code(s): M79.89 - OTHER SPECIFIED SOFT TISSUE DISORDERS (15) Pulmonary hypertension Code(s): I27.20 - PULMONARY HYPERTENSION, UNSPECIFIED (16) Sleep apnea Code(s): G47.30 - SLEEP APNEA, UNSPECIFIED Qualifiers: Sleep apnea type: unspecified type Qualified Code(s): G47.30 - Sleep apnea , unspecified
--- NOTE | 2018-05-09 13:11 | PN ---
Progress Note, Physician Chief Complaint: Condition slowly improving Lost 8 oz History of Present Illness: Cronic hypercarbic respiratory failure. Persistent 6.7cm left basilar atelectasis/consolidation. CABG ASHD. DM type on Levemir/Januvia. CRI/ckd 4. 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 Previous Thoracentesis in the past-neg for malignancy. JUAN-at nights using CPAP. Chronic A.Fib. Combined CHF. Gout. Gouty arthritis. Previous rectal surgery for abscess, fistula at [facility]. - Current Medication List Current Medications: Active Medications Apixaban (Eliquis -) 2.5 mg PO BID [facility] Last Admin: 05/09/18 10:53 Dose: 2.5 mg Aspirin (Asa -) 81 mg PO DAILY [facility] Last Admin: 05/09/18 10:54 Dose: 81 mg Atorvastatin Calcium (Lipitor -) 10 mg PO HS [facility] Last Admin: 05/08/18 22:04 Dose: 10 mg Colchicine (Colcrys -) 0.6 mg PO DAILY [facility] Last Admin: 05/09/18 10:53 Dose: 0.6 mg Collagenase (Santyl -) 1 applic TP DAILY [facility]; Protocol Last Admin: 05/09/18 10:54 Dose: 1 appful Febuxostat (Uloric -) 40 mg PO DAILY [facility] Last Admin: 05/09/18 10:54 Dose: 40 mg Furosemide (Lasix Injection -) 80 mg IVPUSH BID@0600,1400 [facility] Last Admin: 05/09/18 05:14 Dose: 80 mg Insulin Aspart (Novolog Vial Sliding Scale -) 1 vial SQ ACHS [facility]; Protocol Last Admin: 05/09/18 06:08 Dose: Not Given Insulin Detemir (Levemir Vial) 30 units SQ BID [facility] Last Admin: 05/09/18 10:59 Dose: 30 units Levothyroxine Sodium (Synthroid -) 50 mcg PO ACBK JOE Last Admin: 05/09/18 06:08 Dose: 50 mcg Metoprolol Succinate (Toprol Xl -) 50 mg PO BID [facility] Last Admin: 05/09/18 10:54 Dose: 50 mg Polyethylene Glycol (Miralax (For Daily Use) -) 17 gm PO BID [facility] Last Admin: 05/09/18 10:55 Dose: 17 gm Prednisone (Deltasone -) 10 mg PO DAILY [facility] Last Admin: 05/09/18 10:54 Dose: 10 mg Sitagliptin Phosphate (Januvia -) 25 mg PO DAILY@0700 [facility] Last Admin: 05/09/18 06:08 Dose: 25 mg Spironolactone (Aldactone -) 25 mg PO DAILY [facility] Last Admin: 05/09/18 10:53 Dose: 25 mg Valacyclovir HCl (Valtrex -) 500 mg PO BID [facility] Last Admin: 05/09/18 10:53 Dose: 500 mg - Objective Vital Signs: Vital Signs Temperature 97.4 F L 05/09/18 06:00 Pulse Rate 62 05/09/18 06:00 Respiratory Rate 20 05/09/18 06:00 Blood Pressure 105/57 L 05/09/18 06:00 O2 Sat by Pulse Oximetry (%) 99 05/08/18 21:00 Constitutional: Yes: Anxious, Moderate Distress Eyes: Yes: Conjunctiva Clear, EOM Intact HENT: Yes: Atraumatic, Normocephalic Neck: Yes: Supple, Trachea Midline Cardiovascular: Yes: Pulse Irregular Respiratory: Yes: Regular, CTA Bilaterally Gastrointestinal: Yes: Normal Bowel Sounds, Soft, Abdomen, Obese ...Rectal Exam: Yes: Deferred Genitourinary: No: Anuria, Bladder Distention Breast(s): Yes: WNL Musculoskeletal: Yes: WNL Extremities: No: Cold, Cyanosis Edema: Yes Edema: LLE: 3+, RLE: 3+ Peripheral Pulses WNL: No Integumentary: Yes: WNL Neurological: Yes: WNL, Alert, Oriented, Cran Nerves II-XII Intact, Tremors, Unsteady Gait, Weakness. No: Aphasia, Ataxia, Dysarthria, Facial Droop, Lethargy, Paresthesia, Seizure, Tingling, Unresponsive Psychiatric: Yes: WNL Labs: CBC, BMP 05/06/18 08:56 05/06/18 08:56 INR, PTT INR 1.37 (0.83-1.09) H 04/27/18 11:00 - ....Imaging Chest X-ray: Report Reviewed Problem List - Problems (1) ASHD (arteriosclerotic heart disease) Code(s): I25.10 - ATHSCL HEART DISEASE OF [place] CORONARY ARTERY W/O ANG PCTRS (2) Abscess of left buttock Code(s): L02.31 - CUTANEOUS ABSCESS OF BUTTOCK (3) Acute kidney injury superimposed on CKD Code(s): N17.9 - ACUTE KIDNEY FAILURE, UNSPECIFIED; N18.9 - CHRONIC KIDNEY DISEASE, UNSPECIFIED (4) Acute on chronic diastolic CHF (congestive heart failure) Code(s): I50.33 - ACUTE ON CHRONIC DIASTOLIC (CONGESTIVE) HEART FAILURE (5) Acute on chronic respiratory failure with hypoxia and hypercapnia Code(s): J96.21 - ACUTE AND CHRONIC RESPIRATORY FAILURE WITH HYPOXIA; J96.22 - ACUTE AND CHRONIC RESPIRATORY FAILURE WITH HYPERCAPNIA (6) Acute on chronic systolic (congestive) heart failure Code(s): I50.23 - ACUTE ON CHRONIC SYSTOLIC (CONGESTIVE) HEART FAILURE (7) Pneumonia Code(s): J18.9 - PNEUMONIA, UNSPECIFIED ORGANISM Qualifiers: Pneumonia type: due to unspecified organism Laterality: right Lung location: upper lobe of lung Qualified Code(s): J18.1 - Lobar pneumonia, unspecified organism (8) Gout attack Code(s): M10.9 - GOUT, UNSPECIFIED Qualifiers: Gout site: foot Gout etiology: due to renal impairment Laterality: right Qualified Code(s): M10.371 - Gout due to renal impairment, right ankle and foot
[2018-05-09 14:42] LABS: ANION GAP 3 MMOL/L (8-16); BLOOD UREA NITROGEN 47 mg/dL (7-18); CALCIUM 8.6 mg/dL (8.5-10.1); CHLORIDE 92 mmol/L (98-107); CO2 41 mmol/L (21-32); CREATININE 1.8 mg/dL (0.55-1.3); GLUCOSE,RANDOM 143 mg/dL (74-106); POTASSIUM 4.1 mmol/L (3.5-5.1); SODIUM 136 mmol/L (136-145)
[2018-05-09] MEDS: ATORVASTATIN CA 10 MG TABLET (FP) PO SCH (22:37)
[2018-05-10] MEDS: FUROSEMIDE 100 MG/10 ML INJECTABLE VIAL IVPUSH SCH (05:42)
[2018-05-10] MEDS: LEVOTHYROXINE NA 50 MCG TABLET (FP) PO SCH (06:09)
[2018-05-10] MEDS: INSULIN SLIDING SCALE (NOVOLOG) 1 VIAL SQ SCH (06:10)
[2018-05-10] MEDS: sitaGLIPtin PHOSPHATE 25 MG TABLET (FP) PO SCH (06:11)
--- NOTE | 2018-05-10 08:16 | PN ---
Progress Note (short form) - Note Progress Note: Ambulates in the room, less SOB Vital Signs Temp 97.4 F L 05/10/18 06:00 Pulse 67 05/10/18 06:00 Resp 21 H 05/10/18 06:00 BP 101/67 05/10/18 06:00 Pulse Ox 99 05/09/18 21:00 Intake & Output 05/09/18 05/09/18 05/10/18 11:59 23:59 11:59 Intake Total 0 0 0 Balance 0 0 0 Weight 234 lb 1 oz 235 lb 8 oz Intake: IV 0 0 0 saline lock 0 0 0 Other: Voiding Method Toilet Toilet Bowel Movement Yes Yes Weight Measurement Method Standing Scale Chair Scale Neck supple Lungs are Clear Heart S1s2 regular Abdomen soft, Obese LE +2 edema LE Laboratory Results - last 24 hr 05/09/18 05/09/18 05/09/18 11:39 13:43 17:06 Sodium 136 Potassium 4.1 Chloride 92 L Carbon Dioxide 41 H Anion Gap 3 L BUN 47 H Creatinine 1.8 H Creat Clearance w eGFR 35.95 POC Glucometer 123 238 Random Glucose 143 H Calcium 8.6 05/09/18 05/10/18 22:29 05:41 Sodium Potassium Chloride Carbon Dioxide Anion Gap BUN Creatinine Creat Clearance w eGFR POC Glucometer 311 134 Random Glucose Calcium Current Medications Generic Name Dose Route Start Last Admin Trade Name Freq PRN Reason Stop Dose Admin Apixaban 2.5 mg 04/27/18 22:00 05/09/18 22:37 Eliquis - PO 2.5 mg BID JOE Administration Aspirin 81 mg 04/28/18 10:00 05/09/18 10:54 Asa - PO 81 mg DAILY JOE Administration Atorvastatin Calcium 10 mg 04/28/18 22:00 05/09/18 22:37 Lipitor - PO 10 mg HS JOE Administration Colchicine 0.6 mg 04/28/18 10:00 05/09/18 10:53 Colcrys - PO 0.6 mg DAILY JOE Administration Collagenase 1 applic 04/30/18 10:00 05/09/18 10:54 Santyl - TP 1 appful DAILY JOE Administration Protocol Febuxostat 40 mg 04/28/18 10:00 05/09/18 10:54 Uloric - PO 40 mg DAILY JOE Administration Furosemide 80 mg 05/04/18 14:00 05/10/18 05:42 Lasix Injection - IVPUSH 80 mg BID@0600,1400 JOE Administration Insulin Aspart 1 vial 04/27/18 16:30 05/10/18 06:10 Novolog Vial Sliding Scale - SQ Not Given ACHS [facility] Protocol Insulin Detemir 30 units 04/27/18 22:00 05/09/18 22:37 Levemir Vial SQ 30 units BID JOE Administration Levothyroxine Sodium 50 mcg 04/28/18 07:00 05/10/18 06:09 Synthroid - PO 50 mcg ACBK JOE Administration Metoprolol Succinate 50 mg 04/27/18 22:00 05/09/18 22:37 Toprol Xl - PO 50 mg BID JOE Administration Polyethylene Glycol 17 gm 04/27/18 22:00 05/09/18 23:34 Miralax (For Daily Use) - PO Not Given BID [facility] Prednisone 10 mg 05/08/18 10:00 05/09/18 10:54 Deltasone - PO 10 mg DAILY JOE Administration Sitagliptin Phosphate 25 mg 04/28/18 07:00 05/10/18 06:11 Januvia - PO 25 mg DAILY@0700 JOE Administration Spironolactone 25 mg 04/28/18 10:00 05/09/18 10:53 Aldactone - PO 25 mg DAILY JOE Administration Valacyclovir HCl 500 mg 04/27/18 22:00 05/09/18 22:37 Valtrex - PO 500 mg BID JOE Administration Current Active Problems Problem Status Onset CKD (chronic kidney disease) Acute Gout attack Acute Pneumonia Acute Respiratory failure with hypoxia and hypercapnia Acute Plan D/C home F/u in the office next week Problem List - Problems (1) ASHD (arteriosclerotic heart disease) Code(s): I25.10 - ATHSCL HEART DISEASE OF [place] CORONARY ARTERY W/O ANG PCTRS (2) Abscess of left buttock Code(s): L02.31 - CUTANEOUS ABSCESS OF BUTTOCK (3) Acute kidney injury superimposed on CKD Code(s): N17.9 - ACUTE KIDNEY FAILURE, UNSPECIFIED; N18.9 - CHRONIC KIDNEY DISEASE, UNSPECIFIED (4) Acute on chronic diastolic CHF (congestive heart failure) Code(s): I50.33 - ACUTE ON CHRONIC DIASTOLIC (CONGESTIVE) HEART FAILURE (5) Acute on chronic respiratory failure with hypoxia and hypercapnia Code(s): J96.21 - ACUTE AND CHRONIC RESPIRATORY FAILURE WITH HYPOXIA; J96.22 - ACUTE AND CHRONIC RESPIRATORY FAILURE WITH HYPERCAPNIA (6) Acute on chronic systolic (congestive) heart failure Code(s): I50.23 - ACUTE ON CHRONIC SYSTOLIC (CONGESTIVE) HEART FAILURE (7) Pneumonia Code(s): J18.9 - PNEUMONIA, UNSPECIFIED ORGANISM Qualifiers: Pneumonia type: due to unspecified organism Laterality: right Lung location: upper lobe of lung Qualified Code(s): J18.1 - Lobar pneumonia, unspecified organism (8) Gout attack Code(s): M10.9 - GOUT, UNSPECIFIED Qualifiers: Gout site: foot Gout etiology: due to renal impairment Laterality: right Qualified Code(s): M10.371 - Gout due to renal impairment, right ankle and foot
--- NOTE | 2018-05-10 08:17 | DS ---
Physical Examination Vital Signs: Vital Signs Temperature 97.4 F L 05/10/18 06:00 Pulse Rate 67 05/10/18 06:00 Respiratory Rate 21 H 05/10/18 06:00 Blood Pressure 101/67 05/10/18 06:00 O2 Sat by Pulse Oximetry (%) 99 05/09/18 21:00 Constitutional: Yes: No Distress, Calm Eyes: Yes: Conjunctiva Clear, EOM Intact HENT: Yes: Atraumatic, Normocephalic Neck: Yes: Supple, Trachea Midline Cardiovascular: Yes: Pulse Irregular Respiratory: Yes: Regular, Diminished, On Nasal O2, SOB Gastrointestinal: Yes: Normal Bowel Sounds, Abdomen, Obese. No: Tenderness ...Rectal Exam: Yes: Deferred Breast(s): Yes: WNL Musculoskeletal: No: Back Pain, Joint Stiffness Extremities: No: Amputation, Calf Tenderness, Cold, Cyanosis Edema: Yes Edema: LLE: 1+, RLE: 1+ Peripheral Pulses WNL: No Integumentary: Yes: WNL Neurological: Yes: Alert, Oriented, Tremors, Other ([place] No: Ataxia, Confusion , Dysarthria, Seizure, Tingling ...Motor Strength: WNL Psychiatric: Yes: WNL Labs: CBC, BMP 05/06/18 08:56 05/09/18 13:43 Discharge Summary Reason For Visit: ACUTE RESPIRATORY FAILURE WITH HYPOXIA Current Active Problems CKD (chronic kidney disease) (Acute) Gout attack (Acute) Pneumonia (Acute) Respiratory failure with hypoxia and hypercapnia (Acute) Condition: Improved - Instructions Disposition: HOME - Home Medications Comprehensive Discharge Medication List: Ambulatory Orders Pravastatin Sodium [Pravachol -] 40 mg PO DAILY 10/12/14 Sitagliptin Phosphate [Januvia -] 25 mg PO DAILY@0700 #90 tab 10/14/14 Ipratropium 0.02% Nebulizer [Atrovent 0.02% Nebulizer -] 0.5 mg IH PRN 03/21/17 Spironolactone [Aldactone -] 25 mg PO DAILY #30 tablet 03/31/17 Aspirin 81 mg PO DAILY 04/10/17 Insulin Glargine,Hum.rec.anlog [Lantus] 60 unit SQ DAILY 04/10/17 Febuxostat [Uloric] 40 mg PO DAILY 02/20/18 Levothyroxine [Synthroid -] 0.05 mg PO DAILY 02/20/18 Linaclotide [Linzess] 290 mcg PO DAILY 02/20/18 Metoprolol Succinate [Toprol Xl] 50 mg PO BID 02/20/18 Apixaban [Eliquis -] 2.5 mg PO BID 03/30/18 Acetaminophen [Tylenol .Extra-Strength -] 500 mg PO Q6H PRN tablet 04/06/18 Clindamycin [Cleocin -] 300 mg PO TID 5 Days #14 capsule 04/06/18 Furosemide 80 mg PO BIDLASIX #120 tablet 04/06/18 Valacyclovir HCl [Valtrex -] 500 mg PO BID tablet 04/06/18 Colchicine [Mitigare] 0.6 mg PO BID 04/10/18
[2018-05-10 10:15] VITALS: BP 101/47; PULSE 75; TEMP 97.9
[2018-05-10] MEDS: ASPIRIN 81 MG CHEWABLE TABLETS PO SCH (10:17)
[2018-05-10] MEDS: POLYETHYLENE GLYCOL 3350 119 GM BTL PO SCH (10:17)
[2018-05-10] MEDS: SPIRONOLACTONE 25 MG TABLET (FP) PO SCH (10:17)
[2018-05-10] MEDS: APIXABAN 2.5 MG TABLET PO SCH (10:17)
[2018-05-10] MEDS: COLCHICINE 0.6 MG TABLET (FP) PO SCH (10:17)
[2018-05-10] MEDS: valACYclovir HCL 500 MG TABLET (FP) PO SCH (10:17)
[2018-05-10] MEDS: predniSONE 10 MG TABLET (UD) PO SCH (10:17)
[2018-05-10] MEDS: FEBUXOSTAT 40 MG TAB PO SCH (10:18)
[2018-05-10] MEDS: INSULIN (LEVEMIR) 100 UNITS/ML UNITS SQ SCH (10:19)
[2018-05-10] MEDS: COLLAGENASE CLOSTRIDIUM HIST. 30 GRAMS TUBE TP SCH (10:29)
== END 2018-05-10 10:49 | disposition home or self-care (01) | DRG 291 ==
LOC: JER 10:29 → JERBED 12:48 → J7W 16:57
PROVIDERS: ADMIT Internal Medicine; ATTEND Internal Medicine
PROC: 5A09557 Assistance with Respiratory Ventilation, Greater than 96 Consecutive Hours, Continuous Positive Airway Pressure (ICD-10-PCS; principal; 2018-04-27)
DX: I13.0 Hypertensive heart and chronic kidney disease with heart failure and stage 1 through stage 4 chronic kidney disease, or unspecified chronic kidney disease (principal); J96.21 Acute and chronic respiratory failure with hypoxia; J18.9 Pneumonia, unspecified organism; I50.23 Acute on chronic systolic (congestive) heart failure; J96.22 Acute and chronic respiratory failure with hypercapnia; J98.11 Atelectasis; L02.31 Cutaneous abscess of buttock; N17.9 Acute kidney failure, unspecified; N18.3 Chronic kidney disease, stage 3 (moderate); I25.10 Atherosclerotic heart disease of native coronary artery without angina pectoris; I48.2 Chronic atrial fibrillation; I27.20 Pulmonary hypertension, unspecified; M10.9 Gout, unspecified; Z95.1 Presence of aortocoronary bypass graft; E11.22 Type 2 diabetes mellitus with diabetic chronic kidney disease; G47.30 Sleep apnea, unspecified; Z68.36 Body mass index [BMI] 36.0-36.9, adult; E66.01 Morbid (severe) obesity due to excess calories
CPT/HCPCS: 36415; 36600; 71045-TC-FY; 71250-TC; 80048; 80053; 80061; 81003; 81015; 82375; 82803; 82962; 83036; 83050; 83605; 83721; 83735; 83880; 84100; 84443; 84481; 84484; 84550; 85025; 85027; 85610; 85730; 87040; 93005; 93010; 93306-TC; 94640; 94660; 97116-GP; 97161-GP; 99285-25

== ENCOUNTER 2018-09-09 20:52 | Inpatient (IN) | payer OTHER ==
[2018-09-09] MEDS ORDERED: SODIUM CHLORIDE 0.9% 500 ML INFUS.BAG IV ONE ×2 (21:03→22:23)
[2018-09-09 21:33] LABS: ARTERIAL BLD GAS O2 SATURATION 98.6 % (95-98); ARTERIAL BLOOD GAS BASE EXCESS 9.4 meq/l (-2-2); ARTERIAL BLOOD GAS PCO2 66.4 mmHg (35-45); ARTERIAL BLOOD GAS PO2 121 mmHg (80-105); ARTERIAL BLOOD GAS pH 7.36 (7.35-7.45); CARBOXYHEMOGLOBIN 1.9 % (0-2)
--- NOTE | 2018-09-09 21:33 | PDOC ---
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 He is permanently on 3.5 L Oxygen at home permanently but this morning was experiencing respiratory distress despite being on the Bipap machine at home so the family called EMS. He's on Demadex and spironolactone O2 at 89% by ems cpap <Thomas Rasmussen - Last Filed: 09/10/18 02:36> - General Chief Complaint: Respiratory Distress Stated Complaint: RESPIRATORY DISTRESS Time Seen by Provider: 09/09/18 21:01 Past History <Selena Lima - Last Filed: 09/09/18 22:42> - Past Medical History Anemia: No Asthma: No Cancer: No Cardiac Disorders: Yes (Atrial Fib) CVA: No COPD: Yes CHF: Yes Dementia: Yes (mild) Diabetes: Yes GI Disorders: No Disorders: No HTN: Yes Hypercholesterolemia: Yes Liver Disease: No Seizures: No Thyroid Disease: No Lung CA: No (MESOTHELIOMA) - Surgical History Abdominal Surgery: No Appendectomy: No Cardiac Surgery: Yes (CABG) Cholecystectomy: No Lung Surgery: No Neurologic Surgery: No Orthopedic Surgery: No - Immunization History Immunization Up to Date: Yes - Suicide/Smoking/Psychosocial Hx Smoking History: Unknown if ever smoked Have you smoked in the past 12 months: No If you are a former smoker, when did you quit?: 30 YRS AGO Hx Alcohol Use: No Drug/Substance Use Hx: No Substance Use Type: None Hx Substance Use Treatment: No <Thomas Rasmussen - Last Filed: 09/10/18 02:36> - Past Medical History Allergies/Adverse Reactions: Allergies Allergy/AdvReac Type Severity Reaction Status Date / Time No Known Allergies Allergy Verified 09/09/18 20:55 Home Medications: Ambulatory Orders Sitagliptin Phosphate [Januvia -] 25 mg PO DAILY@0700 #90 tab 10/14/14 Spironolactone [Aldactone -] 25 mg PO DAILY #30 tablet 03/31/17 Aspirin 81 mg PO DAILY 04/10/17 Insulin Glargine,Hum.rec.anlog [Lantus] 60 unit SQ DAILY 04/10/17 Febuxostat [Uloric] 40 mg PO DAILY 02/20/18 Levothyroxine [Synthroid -] 0.05 mg PO DAILY 02/20/18 Linaclotide [Linzess] 290 mcg PO DAILY 02/20/18 Metoprolol Succinate [Toprol Xl] 50 mg PO BID 02/20/18 Apixaban [Eliquis -] 2.5 mg PO BID 03/30/18 Colchicine [Mitigare] 0.6 mg PO BID 04/10/18 Torsemide 100 mg PO BID 05/19/18 Review of Systems - Review of Systems Able to Perform ROS?: No (on BIPAP) <Thomas Rasmussen - Last Filed: 09/10/18 02:36> *Physical Exam - Vital Signs Last Vital Signs Temp Pulse Resp BP Pulse Ox 87 30 H 98/60 97 09/09/18 21:05 09/09/18 20:58 09/09/18 20:58 09/09/18 21:05 <Selena Lima - Last Filed: 09/09/18 22:42> - Vital Signs Last Vital Signs Temp Pulse Resp BP Pulse Ox 110 H 30 H 98/60 09/09/18 20:58 09/09/18 20:58 09/09/18 20:58 - Physical Exam General Appearance: Yes: Appropriately Dressed, Moderate Distress, Obese HEENT: positive: Other (BIPAP in place) Respiratory/Chest: positive: Respiratory Distress, Decreased Breath Sounds. negative: Chest Tender Cardiovascular: positive: Irregularly Irregular Gastrointestinal/Abdominal: positive: Normal Bowel Sounds, Soft, Protuberent. negative: Organomegaly Extremity: positive: Other (4+ pitting edema) Integumentary: positive: Normal Color, Dry, Warm Neurologic: positive: Alert, Normal Mood/Affect, Normal Response <Thomas Rasmussen - Last Filed: 09/10/18 02:36> ED Treatment Course - LABORATORY CBC & Chemistry Diagram: 09/09/18 21:35 09/09/18 21:35 - ADDITIONAL ORDERS Additional order review: Laboratory Results 09/09/18 09/09/18 09/09/18 21:35 21:35 21:35 PT with INR 16.40 H INR 1.39 H PTT (Actin FS) 32.5 Anticoagulation Therapy Puncture Site ABG pH ABG pCO2 at Pt Temp ABG pO2 at Pt Temp ABG HCO3 ABG O2 Sat (Measured) ABG O2 Content ABG Base Excess Esteban Test Carboxyhemoglobin Methemoglobin O2 Delivery Device Oxygen Flow Rate Vent Mode Vent Rate Mechanical Rate Pressure Support Vent Sodium 135 L Potassium 3.7 Chloride 91 L Carbon Dioxide 37 H Anion Gap 7 L BUN 65.1 H Creatinine 2.9 H Est GFR (CKD-EPI)AfAm 21.55 Est GFR (CKD-EPI)NonAf 18.60 Random Glucose 193 H Calcium 7.6 L Total Bilirubin 0.5 AST 17 ALT 26 Alkaline Phosphatase 80 B-Natriuretic Peptide 3142.6 H Total Protein 6.2 L Albumin 3.1 L 09/09/18 21:15 PT with INR INR PTT (Actin FS) Anticoagulation Therapy No Result Required. Puncture Site Left radial ABG pH 7.36 ABG pCO2 at Pt Temp 66.4 H ABG pO2 at Pt Temp 121 H ABG HCO3 36.5 H ABG O2 Sat (Measured) 98.6 H ABG O2 Content 15.5 ABG Base Excess 9.4 H Esteban Test Positive Carboxyhemoglobin 1.9 Methemoglobin 0.2 O2 Delivery Device No Result Required. Oxygen Flow Rate 50% Vent Mode No Result Required. Vent Rate No Result Required. Mechanical Rate No Result Required. Pressure Support Vent No Result Required. Sodium Potassium Chloride Carbon Dioxide Anion Gap BUN Creatinine Est GFR (CKD-EPI)AfAm Est GFR (CKD-EPI)NonAf Random Glucose Calcium Total Bilirubin AST ALT Alkaline Phosphatase B-Natriuretic Peptide Total Protein Albumin 09/09/18 21:35 RBC 3.95 L MCV 89.3 MCHC 33.0 RDW 19.7 H MPV 8.5 Neutrophils % 74.2 Lymphocytes % 6.5 L D Monocytes % 16.7 H Eosinophils % 1.5 Basophils % 1.1 - RADIOLOGY Radiology Studies Ordered: Category Date Time Status CHEST X-RAY PORTABLE* [RAD] Stat Radiology 09/09/18 21:02 Ordered - Medications Given in the ED: ED Medications Discontinued Medications Generic Name Dose Route Start Last Admin Trade Name Freq PRN Reason Stop Dose Admin Sodium Chloride 250 ml 09/09/18 21:03 09/09/18 21:15 Normal Saline - IV 09/09/18 21:04 250 ml ONCE ONE Administration Sodium Chloride 250 ml 09/09/18 22:23 09/09/18 22:31 Normal Saline - IV 09/09/18 22:24 250 ml ONCE ONE Administration <Selena Lima - Last Filed: 09/09/18 22:42> - LABORATORY CBC & Chemistry Diagram: 09/09/18 21:35 09/09/18 21:35 - ADDITIONAL ORDERS Additional order review: Laboratory Results 09/09/18 21:15 Anticoagulation Therapy No Result Required. O2 Delivery Device No Result Required. Oxygen Flow Rate No Result Required. Vent Mode No Result Required. Vent Rate No Result Required. Mechanical Rate No Result Required. Pressure Support Vent No Result Required. - Medications Given in the ED: ED Medications Discontinued Medications Generic Name Dose Route Start Last Admin Trade Name Freq PRN Reason Stop Dose Admin Sodium Chloride 250 ml 09/09/18 21:03 09/09/18 21:15 Normal Saline - IV 09/09/18 21:04 250 ml ONCE ONE Administration <Thomas Rasmussen - Last Filed: 09/10/18 02:36> Medical Decision Making - Critical Care Time Total Critical Care Time (minutes): 60 Critical Care Statement: The care of this patient involved high complexity decision making to prevent further life threatening deterioration of the patient 's condition and/or to evaluate & treat vital organ system(s) failure or risk of failure. - Medical Decision Making 09/09/18 22:38 Pt had a central line placed in the IJ in his neck right side by myself and the resident, without difficulty. I successfully placed a mckenzie cath in his bladder, prostate hypertrophy, however it was confirmed with US. Nurse attempted to place a mckenzie catheter in his bladder; pt has prostate hypertrophy; not under US guidance. She inflated the cath balloon in the urethra. Now blood <Selena Lima - Last Filed: 09/09/18 22:42> - Medical Decision Making BiPap started and Respiratory therapy called, O2 up to 97%. . cxr shows large heart with some atelectasis and congestion. Elevated BNP consistent with CHF exacerbation. Dr. Broussard consulted, came to place mckenzie for the patient in order to start diuresis. Patient is in acute CHF decompensation as per cxr and pitting edema of the legs. As soon as mckenzie is place, will start diuresis. Patient admitted to the ICU <Thomas Rasmussen - Last Filed: 09/10/18 02:36> *DC/Admit/Observation/Transfer - Discharge Dispostion Decision to Admit order: Yes <Selena Lima - Last Filed: 09/09/18 22:42> <Thomas Rasmussen - Last Filed: 09/10/18 02:36> Diagnosis at time of Disposition: CHF, acute on chronic, DM type 2 (diabetes mellitus, type 2), Atrial fibrillation, CKD (chronic kidney disease), Leg swelling - Discharge Dispostion Condition at time of disposition: Critical
[2018-09-09 21:35] LABS: ALLENS TEST POSITIVE
[2018-09-09 21:42] LABS: BASO % 1.1 % (0-2.0); EOS % 1.5 % (0-4.5); HEMATOCRIT 35.3 % (35.4-49); HEMOGLOBIN 11.6 GM/dL (11.7-16.9); LYMPH % 6.5 % (8-40); MCH 29.5 pg (25.7-33.7); MEAN CELL VOLUME 89.3 fl (80-96); MEAN PLT VOLUME 8.5 fl (7.5-11.1); MONO % 16.7 % (3.8-10.2); NEUT % 74.2 % (42.8-82.8); PLATELET COUNT 147 K/MM3 (134-434); RBC 3.95 M/mm3 (4.00-5.60); RDW 19.7 % (11.9-15.9); WHITE BLOOD COUNT 8.4 K/mm3 (4.0-10.0)
[2018-09-09 22:01] LABS: INR 1.39 (0.83-1.09); PROTHROMBIN TIME (PATIENT) 16.4 SEC (9.7-13.0)
[2018-09-09 22:04] LABS: ACTIVATED PTT 32.5 SECONDS (25.2-36.5)
[2018-09-09 22:16] LABS: ALBUMIN 3.1 g/dl (3.4-5.0); BILIRUBIN,TOTAL 0.5 mg/dL (0.2-1); BLOOD UREA NITROGEN 65.1 mg/dL (7-18); CALCIUM 7.6 mg/dL (8.5-10.1); CREATININE 2.9 mg/dL (0.55-1.3); POTASSIUM 3.7 mmol/L (3.5-5.1); TOT PROT 6.2 g/dl (6.4-8.2)
[2018-09-09 22:55] LABS: PLATELET ESTIMATE DECREASED
[2018-09-09] MEDS ORDERED: DOBUTAMINE 250 MG/D5W - 250,000 MCG/250 ML INFUS.BAG IV SCH ×2 (23:00→23:05)
--- NOTE | 2018-09-09 23:56 | PDOC ---
Documentation entered by Edna Hayden SCRIBE, acting as scribe for Selena Lima MD. Selena Lima MD: This documentation has been prepared by the Jackelyn leal Mackenzie, SCRIBE, under my direction and personally reviewed by me in its entirety. I confirm that the documentation accurately reflects all work, treatment, procedures, and medical decision making performed by me. Attending Attestation - Resident Resident Name: Thomas Rasmussen - ED Attending Attestation I have performed the following: I have examined & evaluated the patient, The case was reviewed & discussed with the resident, I agree w/resident's findings & plan - HPI HPI: The patient is an 88 year old male, with a significant PMH of CHF, HTN, DM, restrictive lung disease, CAD (s/p CABG), unilateral nephrectomy and a left buttock ulcer who presents to the emergency department via EMS with a sudden onset of acute respiratory distress. Patients family states he has been experiencing progressively worsening respiratory distress for the past week stating he experienced severe respiratory distress today despite being on his bipap machine, prompting them to call EMS. Upon arrival to ED patients pulse ox was low 90s. The patient denies headache and dizziness. Denies fever, chills, nausea, vomiting, diarrhea and constipation. Allergies: NKA Past surgical history: As per resident note. Social history: None reported. PCP: Dr. Moseley 09/09/18 22:54 - Physicial Exam PE: GENERAL: (+)Acute respiratory distress.(+)Hypotensive. Awake, alert, and oriented x3. HEAD: No signs of trauma EYES: PERRLA, EOMI, sclera anicteric, conjunctiva clear ENT: Auricles normal inspection, hearing grossly normal, nares patent, oropharynx clear without exudates. Moist mucosa NECK: Normal ROM, supple, no lymphadenopathy, JVD, or masses LUNGS: (+)Difficult to auscultate lung sounds. Moving air with Bipap. No wheezes, and no crackles HEART: Regular rate and rhythm, normal S1 and S2, no murmurs, rubs or gallops ABDOMEN: (+)Obese. (+)Decreased bowel sounds. Soft, nontender. No guarding, no rebound. No masses EXTREMITIES:(+)Bilateral lower extremity 3+ pitting edema. No cellulitis. Normal range of motion. No clubbing or cyanosis. No cords, erythema, or tenderness GENITAL/URINARY: (+)Enlarged prostate, very difficult to pass a mckenzie catheter. NEUROLOGICAL: Cranial nerves II through XII grossly intact. Normal speech, normal gait SKIN: Warm, Dry, normal turgor, no rashes or lesions noted. 09/09/18 22:54 - Medical Decision Making 09/09/18 23:59 09/09/18 22:38 Pt had a central line placed in the IJ in his neck right side by myself and the resident, without difficulty. I successfully placed a mckenzie cath in his bladder, prostate hypertrophy, however it was confirmed with US. Nurse attempted to place a mckenzie catheter in his bladder; pt has prostate hypertrophy; not under US guidance. She inflated the cath balloon in the urethra. Now blood 09/10/18 00:24 Patient Name: LONI VICKERS THIS IS A PRELIMINARY REPORT FROM [facility] DATE OF SERVICE: 2018-09-09 22:35:26 IMAGES: 2 EXAM: Portable chest x-ray HISTORY: Respiratory failure COMPARISON: None. FINDINGS: The heart is enlarged. Pulmonary vessels are prominent. Sternotomy wire and mediastinal surgical clips are noted. Mild streaky probable atelectasis is noted in the lower lung zones. There is a right IJ central catheter seen with its tip in the distal SVC. 09/10/18 00:25 Patient Name: KANE SIMMONS THIS IS A PRELIMINARY REPORT FROM [facility] DATE OF SERVICE: 2018-09-09 20:56:32 IMAGES: 4 EXAM: Left elbow x-rays HISTORY: Pain COMPARISON: None. FINDINGS: 3 views of the left elbow are submitted. Exam is limited by positioning due to flexion at the elbow. There is an elbow joint effusion noted with positive anterior and posterior fat- pad signs. No definite fracture is seen however evaluation of the radial head/neck is limited due to positioning. Recommend repeat AP and oblique views of the elbow with the upper forearm positioned parallel to the x-ray tube. Alternatively CT could be obtained. Procedures - Central Line Central Line Lumen: triple Central Line Position: internal jugular (R) Anesthesia: 1% Lidocaine Amount of anesthesia (ccs): 5 Complications: none Post Central Line Insertion: sutured, good blood return (CONFIRMED WITH SONO)
--- NOTE | 2018-09-09 23:57 | CONSULT ---
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 He is normally on 3.5L of oxygen at home , however he felt severe dyspnea on exertion and orthopnea beginning this morning that progressed throughout the day. He attempted to put on his CPAP/ BiPAP (unclear which from history) machine at home, had it on for several hours and had not improved and thus he came to the hospital. The family reports increased swelling in his legs bilaterally. Family reports that he is very compliant with his medications and took all of his medications today. He has not had his medications changed recently. Denies any recent travel, sick contacts or recent illness. Patient is a poor historian and has difficulty breathing but he does endorse a productive cough with white/clear sputum. Denies chest pain, fevers, chills, nausea, vomiting, abdominal pain, diarrhea. In the ED, patient's blood pressure was tenuous and therefore a central venous catheter was inserted into the R internal jugular. A mckenzie was attempted to be passed in ED, but from ED report, it was a traumatic insertion which resulted in blood at the urethral meatus. 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 REVIEW OF SYSTEMS: CONSTITUTIONAL: Absent: fever, chills, diaphoresis, generalized weakness, malaise, loss of appetite, weight change HEENT: Absent: rhinorrhea, nasal congestion, throat pain, throat swelling, difficulty swallowing, mouth swelling, ear pain, eye pain, visual changes CARDIOVASCULAR: peripheral edema Absent: chest pain, syncope, palpitations, irregular heart rate, lightheadedness , RESPIRATORY: cough, shortness of breath, dyspnea with exertion, orthopnea Absent: wheezing, stridor, hemoptysis GASTROINTESTINAL: Absent: abdominal pain, abdominal distension, nausea, vomiting, diarrhea, constipation, melena, hematochezia GENITOURINARY: Absent: dysuria, frequency, urgency, hesitancy, hematuria, flank pain, genital pain MUSCULOSKELETAL: Absent: myalgia, arthralgia, joint swelling, back pain, neck pain SKIN: Absent: rash, itching, pallor HEMATOLOGIC/IMMUNOLOGIC: Absent: easy bleeding, easy bruising, lymphadenopathy, frequent infections ENDOCRINE: Absent: unexplained weight gain, unexplained weight loss, heat intolerance, cold intolerance NEUROLOGIC: Absent: headache, focal weakness or paresthesias, dizziness, unsteady gait, seizure, mental status changes, bladder or bowel incontinence PSYCHIATRIC: Absent: anxiety, depression, suicidal or homicidal ideation, hallucinations. PHYSICAL EXAMINATION Vital Signs - 24 hr 09/09/18 09/09/18 09/09/18 20:58 21:05 23:46 Pulse Rate 110 H 87 Respiratory 30 H Rate Blood Pressure 98/60 124/66 O2 Sat by Pulse 97 Oximetry (%) GENERAL: A&Ox3, moderate respiratory distress EYES: PERRLA, EOMI ENT: Dry mucus membranes NECK: Mild JVD LUNGS: coarse rhales bilaterally, no wheezes HEART: systolic murmur auscultated on exam, regular rate ABDOMEN: Soft, nontender, BS present MUSCULOSKELETAL: No CVA Tenderness EXTREMITIES: 2+ pulses, 2+ edema bilaterally NEUROLOGICAL: no focal deficits Laboratory Results - last 24 hr 09/09/18 09/09/18 09/09/18 21:15 21:35 21:35 WBC 8.4 RBC 3.95 L Hgb 11.6 L Hct 35.3 L MCV 89.3 MCH 29.5 MCHC 33.0 RDW 19.7 H Plt Count 147 D MPV 8.5 Absolute Neuts (auto) 6.2 Neutrophils % 74.2 Neutrophils % (Manual) 74.0 D Band Neutrophils % 3.0 Lymphocytes % 6.5 L D Lymphocytes % (Manual) 7.0 L D Monocytes % 16.7 H Monocytes % (Manual) 16 H Eosinophils % 1.5 Basophils % 1.1 Nucleated RBC % 0 Platelet Estimate Decreased PT with INR INR PTT (Actin FS) Anticoagulation Therapy No Result Required. Puncture Site Left radial ABG pH 7.36 ABG pCO2 at Pt Temp 66.4 H ABG pO2 at Pt Temp 121 H ABG HCO3 36.5 H ABG O2 Sat (Measured) 98.6 H ABG O2 Content 15.5 ABG Base Excess 9.4 H Esteban Test Positive Carboxyhemoglobin 1.9 Methemoglobin 0.2 O2 Delivery Device No Result Required. Oxygen Flow Rate 50% Vent Mode No Result Required. Vent Rate No Result Required. Mechanical Rate No Result Required. Pressure Support Vent No Result Required. Sodium 135 L Potassium 3.7 Chloride 91 L Carbon Dioxide 37 H Anion Gap 7 L BUN 65.1 H Creatinine 2.9 H Est GFR (CKD-EPI)AfAm 21.55 Est GFR (CKD-EPI)NonAf 18.60 Random Glucose 193 H Lactic Acid Calcium 7.6 L Total Bilirubin 0.5 AST 17 ALT 26 Alkaline Phosphatase 80 Troponin I B-Natriuretic Peptide Total Protein 6.2 L Albumin 3.1 L 09/09/18 09/09/18 09/09/18 21:35 21:35 21:35 WBC RBC Hgb Hct MCV MCH MCHC RDW Plt Count MPV Absolute Neuts (auto) Neutrophils % Neutrophils % (Manual) Band Neutrophils % Lymphocytes % Lymphocytes % (Manual) Monocytes % Monocytes % (Manual) Eosinophils % Basophils % Nucleated RBC % Platelet Estimate PT with INR 16.40 H INR 1.39 H PTT (Actin FS) 32.5 Anticoagulation Therapy Puncture Site ABG pH ABG pCO2 at Pt Temp ABG pO2 at Pt Temp ABG HCO3 ABG O2 Sat (Measured) ABG O2 Content ABG Base Excess Esteban Test Carboxyhemoglobin Methemoglobin O2 Delivery Device Oxygen Flow Rate Vent Mode Vent Rate Mechanical Rate Pressure Support Vent Sodium Potassium Chloride Carbon Dioxide Anion Gap BUN Creatinine Est GFR (CKD-EPI)AfAm Est GFR (CKD-EPI)NonAf Random Glucose Lactic Acid 1.3 Calcium Total Bilirubin AST ALT Alkaline Phosphatase Troponin I B-Natriuretic Peptide 3142.6 H Total Protein Albumin 09/09/18 21:35 WBC RBC Hgb Hct MCV MCH MCHC RDW Plt Count MPV Absolute Neuts (auto) Neutrophils % Neutrophils % (Manual) Band Neutrophils % Lymphocytes % Lymphocytes % (Manual) Monocytes % Monocytes % (Manual) Eosinophils % Basophils % Nucleated RBC % Platelet Estimate PT with INR INR PTT (Actin FS) Anticoagulation Therapy Puncture Site ABG pH ABG pCO2 at Pt Temp ABG pO2 at Pt Temp ABG HCO3 ABG O2 Sat (Measured) ABG O2 Content ABG Base Excess Esteban Test Carboxyhemoglobin Methemoglobin O2 Delivery Device Oxygen Flow Rate Vent Mode Vent Rate Mechanical Rate Pressure Support Vent Sodium Potassium Chloride Carbon Dioxide Anion Gap BUN Creatinine Est GFR (CKD-EPI)AfAm Est GFR (CKD-EPI)NonAf Random Glucose Lactic Acid Calcium Total Bilirubin AST ALT Alkaline Phosphatase Troponin I 0.03 B-Natriuretic Peptide Total Protein Albumin Active Medications Generic Name Dose Route Start Last Admin Trade Name Freq PRN Reason Stop Dose Admin Apixaban 2.5 mg 09/10/18 10:00 Eliquis - PO BID [facility] Aspirin 81 mg 09/10/18 10:00 Asa - PO DAILY [facility] Chlorhexidine Gluconate 1 applic 09/10/18 22:00 Hibiclens For Decolonization - TP HS [facility] Colchicine 0.6 mg 09/10/18 10:00 Colcrys PO BID [facility] Febuxostat 40 mg 09/10/18 10:00 Uloric - PO DAILY [facility] Dobutamine HCl/Dextrose 250,000 mcg in 250 mls @ 8.709 mls/hr 09/09/18 23:05 09/09/18 23:46 Dobutamine 250 Mg/D5w - IV 1 mcg/kg/min TITR JOE 8.709 mls/hr Administration Protocol 1 MCG/KG/MIN Insulin Aspart 1 vial 09/09/18 23:45 Novolog Vial Sliding Scale - SQ Q6H [facility] Protocol Levothyroxine Sodium 50 mcg 09/10/18 10:00 Synthroid - PO DAILY [facility] Metoprolol Succinate 50 mg 09/10/18 22:00 Toprol Xl - PO BID [facility] Mupirocin 1 applic 09/10/18 10:00 Bactroban Ointment (For Decolonization) - NS 09/15/18 09:59 BID [facility] Non-Formulary Medication 60 unit 09/10/18 10:00 Insulin Glargine,Hum.Rec.Anlog [Lantus] SQ DAILY [facility] Non-Formulary Medication 290 mcg 09/10/18 10:00 Linaclotide [Linzess] PO DAILY [facility] Spironolactone 25 mg 09/10/18 10:00 Aldactone - PO DAILY [facility] ASSESSMENT/PLAN: 87 year old male with a past medical history of CKD stage 4, JUAN, chronic atrial fibrillation, HFrEF (EF 45-50%), DM, gout, 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, presented to the hospital for severe progressive shortness of breath that began acutely this morning and admitted for the treatment of acute CHF exacerbation Neurologic -patient is a poor historian but no focal deficits noted on exam -monitor neurologic status and for signs of lethargy/increased work of breathing Cardiovascular -patient has acute decompensated heart failure with reduced ejection fraction on home torsemide dose of 100 BID and is compliant with medications -Per the DOSE trial, would ideally dose with 2.5x daily diuretic maintenance dose, however patient is on 100 torsemide BID and given his CKD - will give 120 lasix IV to start and continue with 100 daily -patient was started on dobutamine in ED, will trial off dobutamine and restart if pressures drop below a MAP of 65 given high dose lasix -daily weights -accurate I's/O's -patient has underlying chronic atrial fibrillation for which he is on eliquis, will continue eliquis for now -at present patient's pressures are stable with maps around 77-80, will restart patient on home metoprolol XL 50 BID -continue spironolactone -cardiology and nephrology consulted for further recommendations -continue aspirin Pulmonary -patient is on bipap with settings IPAP/EPAP 15/8 rate 12 -saturating 100% on current oxygen requirement -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 If continues to have dyspnea after 1-2 days, will consider steroids/nebulizers -ABG showed normal pH although on low side, CO2 retention to 66-67, could be chronic retention from interstitial lung disease Gastrointestinal -no active GI issues Renal -patient previously had likely diagnosis of CKD stage IV -creatinine elevated from baseline today, could be component cardiorenal syndrome -will obtain UA -continue to diurese with 100 of lasix daily -reassess BP and volume status in AM -recheck BUN/creatinine in AM -monitor electrolytes -consider renal consultation in AM if creatinine does not improve or gets worse Endocrine -hypothyroidism treated at home with synthroid 50 daily, continue home dose in AM -patient has DM on home levemir 60 U daily -while patient NPO on bipap, will check BGM q6h and ISS q6h Musculoskeletal -continue gout medications -mckenzie was attempted in ED causing mild urethral trauma -Dr. Massey called in and placed mckenzie -mckenzie drained ~250cc clear yellow urine FEN -no standing fluids -replete lytes as necessary in AM -NPO while on bipap Prophylaxis -on eliqius Disposition -ICU tonight, likely transfer to telemetry tomorrow Visit type - Emergency Visit Emergency Visit: Yes ED Registration Date: 09/09/18 Care time: The patient presented to the Emergency Department on the above date and was hospitalized for further evaluation of their emergent condition. - New Patient This patient is new to me today: Yes Date on this admission: 09/10/18 - Critical Care Critical Care patient: Yes Total Critical Care Time (in minutes): 45 Critical Care Statement: The care of this patient involved high complexity decision making to prevent further life threatening deterioration of the patient 's condition and/or to evaluate & treat vital organ system(s) failure or risk of failure.
--- NOTE | 2018-09-09 23:59 | HP ---
Admitting History and Physical - Primary Care Physician PCP: Sunil Moseley - Admission Chief Complaint: Respiratory Distress History of Present Illness: This is a 88 y/o man with a significant medical history of HTN, HLD, CAD s/p CABG, Afib, Aortic Stenosis, Restrictive Lung Disease 2/2 to Occupational Asbestosis exposure, JUAN, DM, Renal Insufficiency (unilateral nephrectomy), BPH , Mild Cognitive Impairment, Ulcerative Colitis. Who presents to the ED with respiratory distress. Family was not at bedside per ED records: BIBEMS secondary to acute onset of shortness of breath. He is permanently on 3.5 L Oxygen at home, but this morning was experiencing respiratory distress despite being on the Bipap machine at home so the family called EMS. He's on Demadex and Spironolactone O2 at 89% by EMS cpap History Source: Family Member, Medical Record Limitations to Obtaining History: Clinical Condition, Dementia - Past Medical History CHIEF MATE: Yes: Other (Mild cognitive impairment) Cardiovascular: Yes: AFIB, Aortic Stenosis, CAD, HTN, Hyperlipdemia Pulmonary: Yes: COPD, O2 Dependent, Sleep Apnea, Other (Extensive pleural disease. bronchiectasis.) Gastrointestinal: Yes: Ulcerative Colitis (surgery), Other Renal/: Yes: Renal Inusuff, BPH Musculoskeletal: Yes: Osteoarthritis, Other (Neck/shoulder pain) Endocrine: Yes: Diabetes Mellitus - Past Surgical History Past Surgical History: Yes: CABG, Nephrectomy - Smoking History Smoking history: Unknown if ever smoked Have you smoked in the past 12 months: No If you are a former smoker, when did you quit?: 30 YRS AGO - Alcohol/Substance Use Hx Alcohol Use: No History of Substance Use: reports: None - Social History Usual Living Arrangement: Yes: Other (with family) ADL: Family Assistance 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 History of Recent Travel: No Home Medications - Allergies Allergies/Adverse Reactions: Allergies Allergy/AdvReac Type Severity Reaction Status Date / Time No Known Allergies Allergy Verified 09/09/18 20:55 - Home Medications Home Medications: Ambulatory Orders Sitagliptin Phosphate [Januvia -] 25 mg PO DAILY@0700 #90 tab 10/14/14 Spironolactone [Aldactone -] 25 mg PO DAILY #30 tablet 03/31/17 Aspirin 81 mg PO DAILY 04/10/17 Insulin Glargine,Hum.rec.anlog [Lantus] 60 unit SQ DAILY 04/10/17 Febuxostat [Uloric] 40 mg PO DAILY 02/20/18 Levothyroxine [Synthroid -] 0.05 mg PO DAILY 02/20/18 Linaclotide [Linzess] 290 mcg PO DAILY 02/20/18 Metoprolol Succinate [Toprol Xl] 50 mg PO BID 02/20/18 Apixaban [Eliquis -] 2.5 mg PO BID 03/30/18 Colchicine [Mitigare] 0.6 mg PO BID 04/10/18 Torsemide 100 mg PO BID 05/19/18 Family Disease History - Family Disease History Family History: Unable to Obtain Review of Systems Unable to obtain ROS, reason: Clinical Condition Physical Examination Vital Signs: Vital Signs Temperature Pulse Rate 87 09/09/18 21:05 Respiratory Rate 30 H 09/09/18 20:58 Blood Pressure 124/66 09/09/18 23:46 O2 Sat by Pulse Oximetry (%) 97 09/09/18 21:05 Constitutional: Yes: Well Nourished, No Distress, Calm, Obese Eyes: Yes: Conjunctiva Clear, PERRL HENT: Yes: WNL, Atraumatic, Normocephalic Neck: Yes: WNL, Supple, Trachea Midline Cardiovascular: Yes: Pulse Irregular, S1, S2 Respiratory: Yes: Diminished, On BiPap, Rales, Rhonchi, Wheezes Gastrointestinal: Yes: Normal Bowel Sounds, Soft, Abdomen, Obese Renal/: Yes: [place] Present Breast(s): Yes: WNL Musculoskeletal: Yes: WNL Extremities: Yes: WNL Edema: LLE: 4+, RLE: 4+ Peripheral Pulses WNL: Yes Neurological: Yes: Alert, Cran Nerves II-XII Intact ...Motor Strength: WNL Psychiatric: Yes: Alert Labs: CBC, BMP 09/09/18 21:35 09/09/18 21:35 Laboratory Results - last 24 hr 09/09/18 09/09/18 09/09/18 21:15 21:35 21:35 WBC 8.4 RBC 3.95 L Hgb 11.6 L Hct 35.3 L MCV 89.3 MCH 29.5 MCHC 33.0 RDW 19.7 H Plt Count 147 D MPV 8.5 Absolute Neuts (auto) 6.2 Neutrophils % 74.2 Neutrophils % (Manual) 74.0 D Band Neutrophils % 3.0 Lymphocytes % 6.5 L D Lymphocytes % (Manual) 7.0 L D Monocytes % 16.7 H Monocytes % (Manual) 16 H Eosinophils % 1.5 Basophils % 1.1 Nucleated RBC % 0 Platelet Estimate Decreased PT with INR INR PTT (Actin FS) Anticoagulation Therapy No Result Required. Puncture Site Left radial ABG pH 7.36 ABG pCO2 at Pt Temp 66.4 H ABG pO2 at Pt Temp 121 H ABG HCO3 36.5 H ABG O2 Sat (Measured) 98.6 H ABG O2 Content 15.5 ABG Base Excess 9.4 H Esteban Test Positive Carboxyhemoglobin 1.9 Methemoglobin 0.2 O2 Delivery Device No Result Required. Oxygen Flow Rate 50% Vent Mode No Result Required. Vent Rate No Result Required. Mechanical Rate No Result Required. Pressure Support Vent No Result Required. Sodium 135 L Potassium 3.7 Chloride 91 L Carbon Dioxide 37 H Anion Gap 7 L BUN 65.1 H Creatinine 2.9 H Est GFR (CKD-EPI)AfAm 21.55 Est GFR (CKD-EPI)NonAf 18.60 POC Glucometer Random Glucose 193 H Lactic Acid Calcium 7.6 L Total Bilirubin 0.5 AST 17 ALT 26 Alkaline Phosphatase 80 Troponin I B-Natriuretic Peptide Total Protein 6.2 L Albumin 3.1 L Urine Color Urine Appearance Urine pH Ur Specific [place] Urine Protein Urine Glucose (UA) Urine Ketones Urine Blood Urine Nitrite Urine Bilirubin Urine Urobilinogen Ur Leukocyte Esterase Urine WBC (Auto) Urine RBC (Auto) Urine Casts (Auto) U Epithel Cells (Auto) Urine Bacteria (Auto) 09/09/18 09/09/18 09/09/18 21:35 21:35 21:35 WBC RBC Hgb Hct MCV MCH MCHC RDW Plt Count MPV Absolute Neuts (auto) Neutrophils % Neutrophils % (Manual) Band Neutrophils % Lymphocytes % Lymphocytes % (Manual) Monocytes % Monocytes % (Manual) Eosinophils % Basophils % Nucleated RBC % Platelet Estimate PT with INR 16.40 H INR 1.39 H PTT (Actin FS) 32.5 Anticoagulation Therapy Puncture Site ABG pH ABG pCO2 at Pt Temp ABG pO2 at Pt Temp ABG HCO3 ABG O2 Sat (Measured) ABG O2 Content ABG Base Excess Esteban Test Carboxyhemoglobin Methemoglobin O2 Delivery Device Oxygen Flow Rate Vent Mode Vent Rate Mechanical Rate Pressure Support Vent Sodium Potassium Chloride Carbon Dioxide Anion Gap BUN Creatinine Est GFR (CKD-EPI)AfAm Est GFR (CKD-EPI)NonAf POC Glucometer Random Glucose Lactic Acid 1.3 Calcium Total Bilirubin AST ALT Alkaline Phosphatase Troponin I B-Natriuretic Peptide 3142.6 H Total Protein Albumin Urine Color Urine Appearance Urine pH Ur Specific [place] Urine Protein Urine Glucose (UA) Urine Ketones Urine Blood Urine Nitrite Urine Bilirubin Urine Urobilinogen Ur Leukocyte Esterase Urine WBC (Auto) Urine RBC (Auto) Urine Casts (Auto) U Epithel Cells (Auto) Urine Bacteria (Auto) 09/09/18 09/10/18 09/10/18 21:35 01:45 03:25 WBC RBC Hgb Hct MCV MCH MCHC RDW Plt Count MPV Absolute Neuts (auto) Neutrophils % Neutrophils % (Manual) Band Neutrophils % Lymphocytes % Lymphocytes % (Manual) Monocytes % Monocytes % (Manual) Eosinophils % Basophils % Nucleated RBC % Platelet Estimate PT with INR INR PTT (Actin FS) Anticoagulation Therapy Puncture Site ABG pH ABG pCO2 at Pt Temp ABG pO2 at Pt Temp ABG HCO3 ABG O2 Sat (Measured) ABG O2 Content ABG Base Excess Esteban Test Carboxyhemoglobin Methemoglobin O2 Delivery Device Oxygen Flow Rate Vent Mode Vent Rate Mechanical Rate Pressure Support Vent Sodium Potassium Chloride Carbon Dioxide Anion Gap BUN Creatinine Est GFR (CKD-EPI)AfAm Est GFR (CKD-EPI)NonAf POC Glucometer 131 Random Glucose Lactic Acid Calcium Total Bilirubin AST ALT Alkaline Phosphatase Troponin I 0.03 B-Natriuretic Peptide Total Protein Albumin Urine Color Yellow Urine Appearance Clear Urine pH 6.5 D Ur Specific [place] 1.007 L Urine Protein Negative Urine Glucose (UA) Negative Urine Ketones Negative Urine Blood 1+ H Urine Nitrite Negative Urine Bilirubin Negative Urine Urobilinogen 1.0 Ur Leukocyte Esterase Negative Urine WBC (Auto) 0 Urine RBC (Auto) 3 Urine Casts (Auto) 1 U Epithel Cells (Auto) 0.7 Urine Bacteria (Auto) 5.4 Intake & Output 09/07/18 09/08/18 09/09/18 09/10/18 23:59 23:59 23:59 23:59 Intake Total 750 Balance 750 Weight 113.4 kg Current Medications Generic Name Dose Route Start Last Admin Trade Name Freq PRN Reason Stop Dose Admin Apixaban 2.5 mg 09/10/18 10:00 Eliquis - PO BID [facility] Aspirin 81 mg 09/10/18 10:00 Asa - PO DAILY [facility] Chlorhexidine Gluconate 1 applic 09/10/18 22:00 Hibiclens For Decolonization - TP HS [facility] Colchicine 0.6 mg 09/10/18 10:00 Colcrys PO BID [facility] Febuxostat 40 mg 09/10/18 10:00 Uloric - PO DAILY [facility] Furosemide 100 mg 09/10/18 10:00 Lasix Injection - IVPUSH DAILY [facility] Dobutamine HCl/Dextrose 250,000 mcg in 250 mls @ 8.709 mls/hr 09/09/18 23:05 09/09/18 23:46 Dobutamine 250 Mg/D5w - IV 1 mcg/kg/min TITR JOE 8.709 mls/hr Administration Protocol 1 MCG/KG/MIN Insulin Aspart 1 vial 09/10/18 00:00 09/10/18 01:38 Novolog Vial Sliding Scale - SQ 2 unit Q6H [facility] Administration Protocol Insulin Detemir 60 units 09/10/18 07:00 Levemir Vial SQ DAILY@0700 [facility] Levothyroxine Sodium 50 mcg 09/10/18 07:00 Synthroid - PO DAILY@0700 [facility] Metoprolol Succinate 50 mg 09/10/18 22:00 Toprol Xl - PO BID [facility] Mupirocin 1 applic 09/10/18 10:00 Bactroban Ointment (For Decolonization) - NS 09/15/18 09:59 BID [facility] Non-Formulary Medication 290 mcg 09/10/18 10:00 Linaclotide [Linzess] PO DAILY [facility] Spironolactone 25 mg 09/10/18 10:00 Aldactone - PO DAILY [facility] Imaging - Results Chest X-ray: Image Reviewed EKG: Image Reviewed Problem List - Problems (1) Acute on chronic respiratory failure with hypoxia and hypercapnia Code(s): J96.21 - ACUTE AND CHRONIC RESPIRATORY FAILURE WITH HYPOXIA; J96.22 - ACUTE AND CHRONIC RESPIRATORY FAILURE WITH HYPERCAPNIA (2) Acute on chronic diastolic CHF (congestive heart failure) Code(s): I50.33 - ACUTE ON CHRONIC DIASTOLIC (CONGESTIVE) HEART FAILURE (3) Acute kidney injury superimposed on CKD Code(s): N17.9 - ACUTE KIDNEY FAILURE, UNSPECIFIED; N18.9 - CHRONIC KIDNEY DISEASE, UNSPECIFIED (4) Atrial fibrillation Code(s): I48.91 - UNSPECIFIED ATRIAL FIBRILLATION Qualifiers: (5) DM type 2 (diabetes mellitus, type 2) Code(s): E11.9 - TYPE 2 DIABETES MELLITUS WITHOUT COMPLICATIONS (6) ASHD (arteriosclerotic heart disease) Code(s): I25.10 - ATHSCL HEART DISEASE OF [place] CORONARY ARTERY W/O ANG PCTRS (7) CAD (coronary artery disease) Code(s): I25.10 - ATHSCL HEART DISEASE OF [place] CORONARY ARTERY W/O ANG PCTRS Qualifiers: Coronary Disease-Associated Artery/Lesion type: bypass graft, autologous artery Associated angina: without angina Qualified Code(s): I25.810 - Atherosclerosis of coronary artery bypass graft(s) without angina pectoris (8) HTN (hypertension) Code(s): I10 - ESSENTIAL (PRIMARY) HYPERTENSION (9) Hyperlipidemia Code(s): E78.5 - HYPERLIPIDEMIA, UNSPECIFIED (10) S/P CABG (coronary artery bypass graft) Code(s): Z95.1 - PRESENCE OF AORTOCORONARY BYPASS GRAFT (11) Sleep apnea Code(s): G47.30 - SLEEP APNEA, UNSPECIFIED Qualifiers: Sleep apnea type: unspecified type Qualified Code(s): G47.30 - Sleep apnea , unspecified Assessment/Plan This is a 88 y/o man with a PMHx of HTN, HLD, CAD s/p CABG, Afib, , Restrictive Lung Diseases 2/2 Asbestos Exposure (on 3L, CPAP), Renal Insufficiency s/p Unilateral Nephrectomy, BPH, OA, Ulcerative Colitis, Mild Cognitive Impairment. Admitted to ICU for Acute on Chronic Respiratory Failure with Hypoxia, CHF Exacerbation for further evaluation of their emergent condition. Plan: Admit to ICU Continue Bipap titrate accordingly ABG in am Chest Xray image- CM, pulm vascular congestion EKG- Afib, incomplete RBBB, T wave abnormality Continue cardiac monitoring Troponin neg x1 BNP Lasix given in ED Appreciate Cardiology consult Appreciate Pulmonology consult Appreciate Computer Teacher consult CBC, BMP in am Strict INOs Daily weights Continue home meds BGMs Duonebs FEN- Replete lytes prn, NPO DVT ppx- SCDs, Heparin SQ Dispo: Requires Inpatient Care Visit type - Emergency Visit Emergency Visit: Yes ED Registration Date: 09/09/18 Care time: The patient presented to the Emergency Department on the above date and was hospitalized for further evaluation of their emergent condition. - New Patient This patient is new to me today: Yes Date on this admission: 09/09/18 - Critical Care Critical Care patient: Yes Total Critical Care Time (in minutes): 40 Critical Care Statement: The care of this patient involved high complexity decision making to prevent further life threatening deterioration of the patient 's condition and/or to evaluate & treat vital organ system(s) failure or risk of failure.
[2018-09-10] MEDS ORDERED: LIDOCAINE HCL 2% JELLY 10 ML CARTRIDGE ONE (00:04)
--- NOTE | 2018-09-10 00:25 | CON.GU ---
Consult - History of Present Illness History of Present Illness: 88 yo male being admitted with resp distress. Pt has h/o BPH. Mckenzie could not be placed by ER staff. Attempts at placement yielded blood per urethra. Has distended bladder on sono. 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 History of Recent Travel: No Home Medications - Allergies Allergies/Adverse Reactions: Allergies Allergy/AdvReac Type Severity Reaction Status Date / Time No Known Allergies Allergy Verified 09/09/18 20:55 - Home Medications Home Medications: Ambulatory Orders Sitagliptin Phosphate [Januvia -] 25 mg PO DAILY@0700 #90 tab 10/14/14 Spironolactone [Aldactone -] 25 mg PO DAILY #30 tablet 03/31/17 Aspirin 81 mg PO DAILY 04/10/17 Insulin Glargine,Hum.rec.anlog [Lantus] 60 unit SQ DAILY 04/10/17 Febuxostat [Uloric] 40 mg PO DAILY 02/20/18 Levothyroxine [Synthroid -] 0.05 mg PO DAILY 02/20/18 Linaclotide [Linzess] 290 mcg PO DAILY 02/20/18 Metoprolol Succinate [Toprol Xl] 50 mg PO BID 02/20/18 Apixaban [Eliquis -] 2.5 mg PO BID 03/30/18 Colchicine [Mitigare] 0.6 mg PO BID 04/10/18 Torsemide 100 mg PO BID 05/19/18 Review of Systems - Review of Systems Genitourinary: reports: No Symptoms Physical Exam- Vital Signs: Vital Signs Temperature Pulse Rate 87 06/22/19 21:05 Respiratory Rate 30 H 09/09/18 20:58 Blood Pressure 124/66 09/09/18 23:46 O2 Sat by Pulse Oximetry (%) 97 09/09/18 21:05 Renal/: Yes: Bladder Distention, Urethral Discharge (small amt of blood) Labs: CBC, BMP 09/09/18 21:35 09/09/18 21:35 Assessment/Plan Urinary retention 20fr coude mckenzie placed without difficulty. Clear urine retrieved. Would leave mckenzie in place until pt in regular room and ambulatory
[2018-09-10] MEDS ORDERED: FUROSEMIDE 40 MG/4 ML INJECTABLE VIAL IVPUSH ONE (00:47)
[2018-09-10] MEDS ORDERED: FUROSEMIDE 40 MG/4 ML INJECTABLE VIAL ONE (00:58)
[2018-09-10] MEDS: INSULIN SLIDING SCALE (NOVOLOG) 1 VIAL SQ SCH ×4 (01:38→17:27)
[2018-09-10 02:14] LABS: EPI CELLS 0.7 /HPF (0-5/HPF); HYALINE CASTS 1 /lpf (0-8); PH,URINE 6.5 (5.0-8.0); URINE APPEARANCE CLEAR; URINE BACTERIA 5.4 /hpf (NEGATIVE); URINE BILIRUBIN NEGATIVE (NEGATIVE); URINE COLOR YELLOW; URINE GLUCOSE (UA) NEGATIVE (NEGATIVE); URINE KETONE NEGATIVE (NEGATIVE); URINE LEUK ESTERASE NEGATIVE (NEGATIVE); URINE NITRITE NEGATIVE (NEGATIVE); URINE PROTEIN NEGATIVE (NEGATIVE); URINE RBC 3 /hpf (0-4); URINE WBC 0 /hpf (0-5)
[2018-09-10 06:26] LABS: HEMATOCRIT 36.5 % (35.4-49); HEMOGLOBIN 12.1 GM/dL (11.7-16.9); MCH 29.3 pg (25.7-33.7); MCHC 33.2 g/dl (32.0-35.9); MEAN CELL VOLUME 88.3 fl (80-96); MEAN PLT VOLUME 8.4 fl (7.5-11.1); PLATELET COUNT 145 K/MM3 (134-434); RBC 4.14 M/mm3 (4.00-5.60); WHITE BLOOD COUNT 8.4 K/mm3 (4.0-10.0)
[2018-09-10 06:43] LABS: BLOOD UREA NITROGEN 68.2 mg/dL (7-18); CALCIUM 7.9 mg/dL (8.5-10.1); CREATININE 2.4 mg/dL (0.55-1.3); MAGNESIUM 2.3 mg/dL (1.8-2.4); PHOSPHOROUS 4.5 mg/dL (2.5-4.9); POTASSIUM 3.5 mmol/L (3.5-5.1)
[2018-09-10] MEDS: INSULIN (LEVEMIR) 100 UNITS/ML UNITS SQ SCH (07:22)
[2018-09-10] MEDS: LEVOTHYROXINE NA 50 MCG TABLET (FP) PO SCH ×2 (07:28→10:08)
[2018-09-10 09:20] LABS: ARTERIAL BLD GAS O2 SATURATION 95.4 % (95-98); ARTERIAL BLOOD GAS BASE EXCESS 12.1 meq/l (-2-2); ARTERIAL BLOOD GAS PCO2 65.5 mmHg (35-45)
[2018-09-10 09:22] LABS: ALLENS TEST POSITIVE
--- NOTE | 2018-09-10 09:28 | CON.CARD ---
Consult Consult Specialty:: Cardiology Referred by:: Dr. Moseley Reason for Consultation:: CHF - History of Present Illness Chief Complaint: Shortness of breath History of Present Illness: Well known to me from office and prior admissions. 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 He is normally on 3.5L of oxygen at home , however he felt severe dyspnea on exertion and orthopnea beginning this morning that progressed throughout the day. He attempted to put on his CPAP/ BiPAP (unclear which from history) machine at home, had it on for several hours and had not improved and thus he came to the hospital. The family reports increased swelling in his legs bilaterally. Family reports that he is very compliant with his medications and took all of his medications today. He has not had his medications changed recently. Denies any recent travel, sick contacts or recent illness. Patient is a poor historian and has difficulty breathing but he does endorse a productive cough with white/clear sputum. Denies chest pain, fevers, chills, nausea, vomiting, abdominal pain, diarrhea. In the ED, patient's blood pressure was tenuous and therefore a central venous catheter was inserted into the R internal jugular. A mckenzie was attempted to be passed in ED, but from ED report, it was a traumatic insertion which resulted in blood at the urethral meatus. 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 History of Recent Travel: No Home Medications - Allergies Allergies/Adverse Reactions: Allergies Allergy/AdvReac Type Severity Reaction Status Date / Time No Known Allergies Allergy Verified 09/09/18 20:55 - Home Medications Home Medications: Ambulatory Orders Sitagliptin Phosphate [Januvia -] 25 mg PO DAILY@0700 #90 tab 10/14/14 Spironolactone [Aldactone -] 25 mg PO DAILY #30 tablet 03/31/17 Aspirin 81 mg PO DAILY 04/10/17 Insulin Glargine,Hum.rec.anlog [Lantus] 60 unit SQ DAILY 04/10/17 Febuxostat [Uloric] 40 mg PO DAILY 02/20/18 Levothyroxine [Synthroid -] 0.05 mg PO DAILY 02/20/18 Linaclotide [Linzess] 290 mcg PO DAILY 02/20/18 Metoprolol Succinate [Toprol Xl] 50 mg PO BID 02/20/18 Apixaban [Eliquis -] 2.5 mg PO BID 03/30/18 Colchicine [Mitigare] 0.6 mg PO BID 04/10/18 Torsemide 100 mg PO BID 05/19/18 Family Disease History - Family Disease History Family History: Unremarkable (not pertinent to this presentation) Review of Systems Findings/Remarks: see HPI - Review of Systems Eyes: reports: No Symptoms HENT: reports: No Symptoms Cardiovascular: reports: Edema, Shortness of Breath Respiratory: reports: Exercise Intolerance, Orthopnea, SOB, SOB on Exertion Gastrointestinal: denies: No Symptoms, Abdominal Pain, Bloating, Constipation, Diarrhea, Dysphagia, Indigestion, Melena, Nausea, Rectal Bleeding, Vomiting, Vomiting Blood, Other Genitourinary: denies: No Symptoms, Burning, Discharge, Dysuria, Flank Pain, Frequency, Hematuria, Incontinence, Lesions, Menses, Pain, Testicular Mass, Testicular Pain, Testicular Swelling, Urgency, Vaginal Bleeding, Other Breasts: denies: No Symptoms Reported, See HPI, Breast Implants, Discharge from Nipple, Lumps, Pain, Skin Changes, Other Musculoskeletal: denies: No Symptoms, Back Pain, Crepitus, Decreased ROM, Extremity Pain, Joint Pain, Joint Swelling, Muscle Pain, Muscle Cramps, Muscle Weakness, Other Integumentary: denies: No Symptoms, Blister, Bruising, Change in Color, Eczema, Erythema, Incision, Lesions, Lump, Pallor, Pruritis, Rash, Wound, Other Neurological: denies: No Symptoms, Change in LOC, Change in Speech, Confusion, Dizziness, Headache, Incoordination, Numbness, Parasthesia, Pre-Existing Deficit , Seizure, Syncope, Tremors, Unsteady Gait, Weakness, Other Endocrine: denies: No Symptoms, Excessive Sweating, Flushing, Increased Hunger, Increased Thirst, Intolerance to Cold, Intolerance to Heat, Unexplained Weight Gain, Unexplained Weight Loss, Other Hematology/Lymphatic: denies: No Symptoms, Easily Bruised, Excessive Bleeding, Swollen Glands, Other Psychiatric: denies: No Symptoms, Altered Sleep Pattern, Anxiety, Depression, Hallucinations, Panic, Paranoia, Suicidal, Other - Risk Factors Known Risk Factors: Yes: Diabetes Mellitus, Other (Known CAD) Vital Signs: Vital Signs Temperature 98 F 09/10/18 06:00 Pulse Rate 95 H 09/10/18 08:00 Respiratory Rate 20 09/10/18 09:00 Blood Pressure 112/65 09/10/18 08:00 O2 Sat by Pulse Oximetry (%) 96 09/10/18 09:00 Constitutional: Yes: Calm Eyes: Yes: Conjunctiva Clear Respiratory: Yes: Other (diffusel rhonchi, rales at left base, no active wheeze. Diffusely decreased breath sounds) Gastrointestinal: Yes: Soft, Abdomen, Obese JVD: Yes Heart Sounds: Yes: S1, S2 (irreg.) Edema: Yes Edema: LLE: 2+, RLE: 2+ Neurological: Yes: Alert, Oriented - Other Data Labs, Other Data: CBC, BMP 09/10/18 05:25 09/10/18 05:25 INR, PTT INR 1.39 (0.83-1.09) H 09/09/18 21:35 Troponin, BNP 09/09/18 09/09/18 21:35 21:35 Troponin I 0.03 B-Natriuretic Peptide 3142.6 H Troponin, BNP 06/22/19 06/22/19 21:35 21:35 Troponin I 0.03 B-Natriuretic Peptide 3142.6 H AF, RBBB, NSST Imaging - Results Chest X-ray: Image Reviewed EKG: Image Reviewed Assessment/Plan Echo 04/2018: EF 45%, mod MR/TR, at least mild , moderate to severe PHTN Nuclear stress 2017: Pharm: small inferolat infarct, mild arlin-infarct ischemia , Overall EF 35-40% IMP: 1.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 Chronic AF 6.CAD s/p CABG 7. PHTN 8. CKD with baseline creatinine 2.0 REC: 1.Agree with IV Lasix daily, with daily weights, strict Is/Os and daily BMP to monitor renal fxn closely. 2. NIPPV and suppl O2. 3. Rates are currently well controlled, cont Eliquis adjusted for age and renal fx. Cont Metoprolol at home dose. Dobutamine gtts now d/c'd, used transiently overnight. 4. PHTN is chronic and due to combo of his chronic lung dz and left sided cardiac failure. Will diurese and try to optimized secondary conditions. Suppliment O2. Thank you.
[2018-09-10] MEDS ORDERED: FUROSEMIDE 40 MG/4 ML INJECTABLE VIAL IVPUSH SCH (10:00)
[2018-09-10] MEDS: APIXABAN 2.5 MG TABLET PO SCH ×2 (10:06→21:42)
[2018-09-10] MEDS: SPIRONOLACTONE 25 MG TABLET (FP) PO SCH (10:06)
[2018-09-10] MEDS: COLCHICINE 0.6 MG CAP PO SCH ×2 (10:06→21:41)
[2018-09-10] MEDS: ASPIRIN 81 MG CHEWABLE TABLETS PO SCH (10:07)
[2018-09-10] MEDS: MUPIROCIN 2% TOPICAL OINTMENT FOR DECOLONIZATION NS SCH ×2 (10:07→21:40)
--- NOTE | 2018-09-10 10:11 | CON.PULM ---
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 Admitted via the ER due to progressive shortness of breath x 1 day. rning. Patient reports dyspnea onexertion and orthopnea that began yesterday morning and progressed throughout the day. he says that he attempted to use his PAP device for a few hours and when he did not improve he decided to come to the hospital. No fever or chills. No hemoptysis or night sweats. No travel history or sick contacts. 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 History of Recent Travel: No Home Medications - Allergies Allergies/Adverse Reactions: Allergies Allergy/AdvReac Type Severity Reaction Status Date / Time No Known Allergies Allergy Verified 09/09/18 20:55 - Home Medications Home Medications: Ambulatory Orders Sitagliptin Phosphate [Januvia -] 25 mg PO DAILY@0700 #90 tab 10/14/14 Spironolactone [Aldactone -] 25 mg PO DAILY #30 tablet 03/31/17 Aspirin 81 mg PO DAILY 04/10/17 Insulin Glargine,Hum.rec.anlog [Lantus] 60 unit SQ DAILY 04/10/17 Febuxostat [Uloric] 40 mg PO DAILY 02/20/18 Levothyroxine [Synthroid -] 0.05 mg PO DAILY 02/20/18 Linaclotide [Linzess] 290 mcg PO DAILY 02/20/18 Metoprolol Succinate [Toprol Xl] 50 mg PO BID 02/20/18 Apixaban [Eliquis -] 2.5 mg PO BID 03/30/18 Colchicine [Mitigare] 0.6 mg PO BID 04/10/18 Torsemide 100 mg PO BID 05/19/18 Review of Systems - Review of Systems Constitutional: denies: Chills, Fever, Night Sweats Eyes: reports: No Symptoms HENT: reports: No Symptoms Neck: reports: No Symptoms Cardiovascular: reports: Shortness of Breath. denies: Chest Pain, Edema, Palpitations Respiratory: reports: Cough, Orthopnea, PND, Snoring, SOB, SOB on Exertion. denies: Hemoptysis, Wheezing Gastrointestinal: reports: No Symptoms Genitourinary: reports: No Symptoms Breasts: reports: No Symptoms Reported Musculoskeletal: reports: No Symptoms Integumentary: reports: No Symptoms Neurological: reports: No Symptoms Endocrine: reports: No Symptoms Hematology/Lymphatic: reports: No Symptoms Psychiatric: reports: No Symptoms Physical Exam Vital Sings: Vital Signs Temperature 98 F 09/10/18 06:00 Pulse Rate 95 H 09/10/18 08:00 Respiratory Rate 20 09/10/18 09:00 Blood Pressure 112/65 09/10/18 08:00 O2 Sat by Pulse Oximetry (%) 97 09/10/18 09:25 Constitutional: Yes: Mild Distress Eyes: Yes: Conjunctiva Clear, EOM Intact HENT: Yes: Atraumatic, Normocephalic Neck: Yes: Supple, Trachea Midline Cardiovascular: Yes: Pulse Irregular Respiratory: Yes: Cough, Diminished, On BiPap, Rales, Rhonchi, SOB, SOB on Exertion, Tachypnea. No: Accessory Muscle Use, Stridor, Wheezes ...Inspection: Yes: WNL ...Clubbing: No Gastrointestinal: Yes: Normal Bowel Sounds, Soft Renal/: Yes: WNL Musculoskeletal: Yes: WNL Extremities: Yes: WNL Edema: No Peripheral Pulses WNL: Yes Integumentary: Yes: WNL Neurological: Yes: WNL, Alert, Oriented ...Motor Strength: WNL Psychiatric: Yes: WNL, Alert, Oriented Labs: CBC, BMP 09/10/18 05:25 09/10/18 05:25 ABG Results ABG pH 7.40 (7.35-7.45) 09/10/18 08:55 ABG pCO2 at Pt Temp 65.5 mmHg (35-45) H 09/10/18 08:55 ABG pO2 at Pt Temp 79.0 mmHg (80-105) L 09/10/18 08:55 ABG HCO3 39.3 mmol/L (22-27) H 09/10/18 08:55 ABG O2 Sat (Measured) 95.4 % (95-98) 09/10/18 08:55 ABG O2 Content 15.7 % vol (15-22) 09/10/18 08:55 ABG Base Excess 12.1 meq/l (-2-2) H 09/10/18 08:55 Imaging - Results Chest X-ray: Report Reviewed, Image Reviewed Problem List - Problems (1) Atrial fibrillation Code(s): I48.91 - UNSPECIFIED ATRIAL FIBRILLATION Qualifiers: (2) CHF, acute on chronic Code(s): I50.9 - HEART FAILURE, UNSPECIFIED (3) CKD (chronic kidney disease) Code(s): N18.9 - CHRONIC KIDNEY DISEASE, UNSPECIFIED (4) DM type 2 (diabetes mellitus, type 2) Code(s): E11.9 - TYPE 2 DIABETES MELLITUS WITHOUT COMPLICATIONS (5) ASHD (arteriosclerotic heart disease) Code(s): I25.10 - ATHSCL HEART DISEASE OF [place] CORONARY ARTERY W/O ANG PCTRS (6) Acute on chronic diastolic CHF (congestive heart failure) Code(s): I50.33 - ACUTE ON CHRONIC DIASTOLIC (CONGESTIVE) HEART FAILURE (7) Acute on chronic respiratory failure with hypoxia and hypercapnia Code(s): J96.21 - ACUTE AND CHRONIC RESPIRATORY FAILURE WITH HYPOXIA; J96.22 - ACUTE AND CHRONIC RESPIRATORY FAILURE WITH HYPERCAPNIA (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 - OTHER SPECIFIED PLEURAL CONDITIONS (9) CAD (coronary artery disease) Code(s): I25.10 - ATHSCL HEART DISEASE OF [place] CORONARY ARTERY W/O ANG PCTRS Qualifiers: Coronary Disease-Associated Artery/Lesion type: bypass graft, autologous artery Associated angina: without angina Qualified Code(s): I25.810 - Atherosclerosis of coronary artery bypass graft(s) without angina pectoris (10) HTN (hypertension) Code(s): I10 - ESSENTIAL (PRIMARY) HYPERTENSION (11) Hypoxemia Code(s): R09.02 - HYPOXEMIA (12) Pulmonary hypertension Code(s): I27.20 - PULMONARY HYPERTENSION, UNSPECIFIED (13) S/P CABG (coronary artery bypass graft) Code(s): Z95.1 - PRESENCE OF AORTOCORONARY BYPASS GRAFT (14) Sleep apnea Code(s): G47.30 - SLEEP APNEA, UNSPECIFIED Qualifiers: Sleep apnea type: unspecified type Qualified Code(s): G47.30 - Sleep apnea , unspecified Assessment/Plan NIPPV Support Lasix Trial of VM and can attempt HFOT Strict I & O Daily weights Monitor off systemic steroids BD TX PRN Monitor off ABX Continue home meds Cardiology evaluation noted Requires Cardiac Telemetry and Oximetry monitoring Dr Martinez Critical care time spent in reviewing chart, evaluating patient and formulating plan - 36 minutes.
[2018-09-10] MEDS: DOCUSATE SODIUM 100 MG CAPSULE (FP) PO SCH ×2 (12:44→21:40)
[2018-09-10] MEDS: FEBUXOSTAT 40 MG TAB PO SCH (12:44)
[2018-09-10] MEDS: POLYETHYLENE GLYCOL 3350 119 GM BTL PO SCH (12:45)
--- NOTE | 2018-09-10 13:08 | EKG ---
Test Reason : Blood Pressure : / mmHG Vent. Rate : 085 BPM Atrial Rate : 083 BPM P-R Int : 000 ms QRS Dur : 116 ms QT Int : 394 ms P-R-T Axes : 000 -23 104 degrees QTc Int : 468 ms POOR DATA QUALITY, INTERPRETATION MAY BE ADVERSELY AFFECTED ATRIAL FIBRILLATION INCOMPLETE RIGHT BUNDLE BRANCH BLOCK NONSPECIFIC ST ABNORMALITY ABNORMAL ECG Confirmed by PRITESH HANNAH MD ([id number]) on 09/10/2018 1:07:55 PM Referred By: Confirmed By:PRITESH HANNAH MD
--- NOTE | 2018-09-10 13:34 | PN ---
Physical Exam: SUBJECTIVE: Patient seen and examined at bedside. Pt has been tolerating NIPPV well. OBJECTIVE: Vital Signs Period Temp Pulse Resp BP Sys/Junior Pulse Ox Last 24 Hr 97.1 F-98.4 F 73-110 17-30 98-140/57-72 95-100 Gen: NAD, comfortable on Bilevel HEENT: NCAT, eomi Neck: supple Cardio: irregular, s1s2, no mrg Pulm: coarse breath sounds Abd: obese, nondistended, nontender ext: 1+ edema Laboratory Results - last 24 hr 09/09/18 09/09/18 09/09/18 21:15 21:35 21:35 WBC 8.4 RBC 3.95 L Hgb 11.6 L Hct 35.3 L MCV 89.3 MCH 29.5 MCHC 33.0 RDW 19.7 H Plt Count 147 D MPV 8.5 Absolute Neuts (auto) 6.2 Neutrophils % 74.2 Neutrophils % (Manual) 74.0 D Band Neutrophils % 3.0 Lymphocytes % 6.5 L D Lymphocytes % (Manual) 7.0 L D Monocytes % 16.7 H Monocytes % (Manual) 16 H Eosinophils % 1.5 Basophils % 1.1 Nucleated RBC % 0 Platelet Estimate Decreased PT with INR INR PTT (Actin FS) Anticoagulation Therapy No Result Required. Puncture Site Left radial ABG pH 7.36 ABG pCO2 at Pt Temp 66.4 H ABG pO2 at Pt Temp 121 H ABG HCO3 36.5 H ABG O2 Sat (Measured) 98.6 H ABG O2 Content 15.5 ABG Base Excess 9.4 H Esteban Test Positive Carboxyhemoglobin 1.9 Methemoglobin 0.2 O2 Delivery Device No Result Required. Oxygen Flow Rate 50% Vent Mode No Result Required. Vent Rate No Result Required. Mechanical Rate No Result Required. Pressure Support Vent No Result Required. Sodium 135 L Potassium 3.7 Chloride 91 L Carbon Dioxide 37 H Anion Gap 7 L BUN 65.1 H Creatinine 2.9 H Est GFR (CKD-EPI)AfAm 21.55 Est GFR (CKD-EPI)NonAf 18.60 POC Glucometer Random Glucose 193 H Lactic Acid Calcium 7.6 L Phosphorus Magnesium Total Bilirubin 0.5 AST 17 ALT 26 Alkaline Phosphatase 80 Troponin I B-Natriuretic Peptide Total Protein 6.2 L Albumin 3.1 L Urine Color Urine Appearance Urine pH Ur Specific Mars Urine Protein Urine Glucose (UA) Urine Ketones Urine Blood Urine Nitrite Urine Bilirubin Urine Urobilinogen Ur Leukocyte Esterase Urine WBC (Auto) Urine RBC (Auto) Urine Casts (Auto) U Epithel Cells (Auto) Urine Bacteria (Auto) 09/09/18 09/09/18 09/09/18 21:35 21:35 21:35 WBC RBC Hgb Hct MCV MCH MCHC RDW Plt Count MPV Absolute Neuts (auto) Neutrophils % Neutrophils % (Manual) Band Neutrophils % Lymphocytes % Lymphocytes % (Manual) Monocytes % Monocytes % (Manual) Eosinophils % Basophils % Nucleated RBC % Platelet Estimate PT with INR 16.40 H INR 1.39 H PTT (Actin FS) 32.5 Anticoagulation Therapy Puncture Site ABG pH ABG pCO2 at Pt Temp ABG pO2 at Pt Temp ABG HCO3 ABG O2 Sat (Measured) ABG O2 Content ABG Base Excess Esteban Test Carboxyhemoglobin Methemoglobin O2 Delivery Device Oxygen Flow Rate Vent Mode Vent Rate Mechanical Rate Pressure Support Vent Sodium Potassium Chloride Carbon Dioxide Anion Gap BUN Creatinine Est GFR (CKD-EPI)AfAm Est GFR (CKD-EPI)NonAf POC Glucometer Random Glucose Lactic Acid 1.3 Calcium Phosphorus Magnesium Total Bilirubin AST ALT Alkaline Phosphatase Troponin I B-Natriuretic Peptide 3142.6 H Total Protein Albumin Urine Color Urine Appearance Urine pH Ur Specific Mars Urine Protein Urine Glucose (UA) Urine Ketones Urine Blood Urine Nitrite Urine Bilirubin Urine Urobilinogen Ur Leukocyte Esterase Urine WBC (Auto) Urine RBC (Auto) Urine Casts (Auto) U Epithel Cells (Auto) Urine Bacteria (Auto) 09/09/18 09/10/18 09/10/18 21:35 01:45 03:25 WBC RBC Hgb Hct MCV MCH MCHC RDW Plt Count MPV Absolute Neuts (auto) Neutrophils % Neutrophils % (Manual) Band Neutrophils % Lymphocytes % Lymphocytes % (Manual) Monocytes % Monocytes % (Manual) Eosinophils % Basophils % Nucleated RBC % Platelet Estimate PT with INR INR PTT (Actin FS) Anticoagulation Therapy Puncture Site ABG pH ABG pCO2 at Pt Temp ABG pO2 at Pt Temp ABG HCO3 ABG O2 Sat (Measured) ABG O2 Content ABG Base Excess Esteban Test Carboxyhemoglobin Methemoglobin O2 Delivery Device Oxygen Flow Rate Vent Mode Vent Rate Mechanical Rate Pressure Support Vent Sodium Potassium Chloride Carbon Dioxide Anion Gap BUN Creatinine Est GFR (CKD-EPI)AfAm Est GFR (CKD-EPI)NonAf POC Glucometer 131 Random Glucose Lactic Acid Calcium Phosphorus Magnesium Total Bilirubin AST ALT Alkaline Phosphatase Troponin I 0.03 B-Natriuretic Peptide Total Protein Albumin Urine Color Yellow Urine Appearance Clear Urine pH 6.5 D Ur Specific Mars 1.007 L Urine Protein Negative Urine Glucose (UA) Negative Urine Ketones Negative Urine Blood 1+ H Urine Nitrite Negative Urine Bilirubin Negative Urine Urobilinogen 1.0 Ur Leukocyte Esterase Negative Urine WBC (Auto) 0 Urine RBC (Auto) 3 Urine Casts (Auto) 1 U Epithel Cells (Auto) 0.7 Urine Bacteria (Auto) 5.4 09/10/18 09/10/18 09/10/18 05:25 05:25 05:46 WBC 8.4 RBC 4.14 Hgb 12.1 Hct 36.5 MCV 88.3 MCH 29.3 MCHC 33.2 RDW 20.0 H Plt Count 145 MPV 8.4 Absolute Neuts (auto) Neutrophils % Neutrophils % (Manual) Band Neutrophils % Lymphocytes % Lymphocytes % (Manual) Monocytes % Monocytes % (Manual) Eosinophils % Basophils % Nucleated RBC % Platelet Estimate PT with INR INR PTT (Actin FS) Anticoagulation Therapy Puncture Site ABG pH ABG pCO2 at Pt Temp ABG pO2 at Pt Temp ABG HCO3 ABG O2 Sat (Measured) ABG O2 Content ABG Base Excess Esteban Test Carboxyhemoglobin Methemoglobin O2 Delivery Device Oxygen Flow Rate Vent Mode Vent Rate Mechanical Rate Pressure Support Vent Sodium 140 Potassium 3.5 Chloride 92 L Carbon Dioxide 41 H Anion Gap 7 L BUN 68.2 H Creatinine 2.4 H Est GFR (CKD-EPI)AfAm 27.09 Est GFR (CKD-EPI)NonAf 23.38 POC Glucometer 102 Random Glucose 119 H Lactic Acid Calcium 7.9 L Phosphorus 4.5 Magnesium 2.3 Total Bilirubin AST ALT Alkaline Phosphatase Troponin I B-Natriuretic Peptide Total Protein Albumin Urine Color Urine Appearance Urine pH Ur Specific Mars Urine Protein Urine Glucose (UA) Urine Ketones Urine Blood Urine Nitrite Urine Bilirubin Urine Urobilinogen Ur Leukocyte Esterase Urine WBC (Auto) Urine RBC (Auto) Urine Casts (Auto) U Epithel Cells (Auto) Urine Bacteria (Auto) 09/10/18 08:55 WBC RBC Hgb Hct MCV MCH MCHC RDW Plt Count MPV Absolute Neuts (auto) Neutrophils % Neutrophils % (Manual) Band Neutrophils % Lymphocytes % Lymphocytes % (Manual) Monocytes % Monocytes % (Manual) Eosinophils % Basophils % Nucleated RBC % Platelet Estimate PT with INR INR PTT (Actin FS) Anticoagulation Therapy Puncture Site Right radial ABG pH 7.40 ABG pCO2 at Pt Temp 65.5 H ABG pO2 at Pt Temp 79.0 L ABG HCO3 39.3 H ABG O2 Sat (Measured) 95.4 ABG O2 Content 15.7 ABG Base Excess 12.1 H Esteban Test Positive Carboxyhemoglobin Methemoglobin O2 Delivery Device Bipap Oxygen Flow Rate 40% Vent Mode S/t Vent Rate 12 Mechanical Rate Bipap Pressure Support Vent Ipap 15/epap 8 Sodium Potassium Chloride Carbon Dioxide Anion Gap BUN Creatinine Est GFR (CKD-EPI)AfAm Est GFR (CKD-EPI)NonAf POC Glucometer Random Glucose Lactic Acid Calcium Phosphorus Magnesium Total Bilirubin AST ALT Alkaline Phosphatase Troponin I B-Natriuretic Peptide Total Protein Albumin Urine Color Urine Appearance Urine pH Ur Specific Mars Urine Protein Urine Glucose (UA) Urine Ketones Urine Blood Urine Nitrite Urine Bilirubin Urine Urobilinogen Ur Leukocyte Esterase Urine WBC (Auto) Urine RBC (Auto) Urine Casts (Auto) U Epithel Cells (Auto) Urine Bacteria (Auto) Active Medications Generic Name Dose Route Start Last Admin Trade Name Freq PRN Reason Stop Dose Admin Apixaban 2.5 mg 09/10/18 10:00 09/10/18 10:06 Eliquis - PO 2.5 mg BID JOE Administration Aspirin 81 mg 09/10/18 10:00 09/10/18 10:07 Asa - PO 81 mg DAILY JOE Administration Chlorhexidine Gluconate 1 applic 09/10/18 22:00 Hibiclens For Decolonization - TP HS JOE Colchicine 0.6 mg 09/10/18 10:00 09/10/18 10:06 Colcrys PO 0.6 mg BID JOE Administration Docusate Sodium 100 mg 09/10/18 11:15 09/10/18 12:44 Colace - PO 100 mg BID JOE Administration Febuxostat 40 mg 09/10/18 10:00 09/10/18 12:44 Uloric - PO 40 mg DAILY JOE Administration Furosemide 100 mg 09/10/18 10:00 09/10/18 10:05 Lasix Injection - IVPUSH 100 mg DAILY JOE Administration Insulin Aspart 1 vial 09/10/18 00:00 09/10/18 12:46 Novolog Vial Sliding Scale - SQ Not Given Q6H [facility] Protocol Insulin Detemir 60 units 09/10/18 07:00 09/10/18 07:22 Levemir Vial SQ 60 units DAILY@0700 JOE Administration Levothyroxine Sodium 50 mcg 09/10/18 07:00 09/10/18 10:08 Synthroid - PO 50 mcg DAILY@0700 JOE Administration Metoprolol Succinate 50 mg 09/10/18 22:00 Toprol Xl - PO BID JOE Mupirocin 1 applic 09/10/18 10:00 09/10/18 10:07 Bactroban Ointment (For Decolonization) - NS 09/15/18 09:59 1 applic BID JOE Administration Non-Formulary Medication 290 mcg 09/10/18 10:00 Linaclotide [Linzess] PO DAILY JOE Polyethylene Glycol 17 gm 09/10/18 11:15 09/10/18 12:45 Miralax (For Daily Use) - PO 17 grams DAILY JOE Administration Spironolactone 25 mg 09/10/18 10:00 09/10/18 10:06 Aldactone - PO 25 mg DAILY JOE Administration ASSESSMENT/PLAN: Pt is an 88 y/o M with PMH CKD stage 4, JUAN, chronic atrial fibrillation, HFrEF (EF 45-50%), DM, gout, 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 Pt was found to have CHF exacerbation and brought to ICU for tenuous respiratory status. 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 -3L O2 at home -sats good at this time -likely 2/2 decompensation from CHF -wean off bilevel onto venti 50% #chronic AF -c/w eliquis -toprol #CKD -Education Program Manager coming down with treatment -monitor -c/w spironolactone, lasix #DM -levemir -ISS -BGM ACHS #JUAN -c/w bilevel HS Visit type - Emergency Visit Emergency Visit: No - New Patient This patient is new to me today: Yes Date on this admission: 09/10/18 - Critical Care Critical Care patient: Yes Total Critical Care Time (in minutes): 35 Critical Care Statement: The care of this patient involved high complexity decision making to prevent further life threatening deterioration of the patient 's condition and/or to evaluate & treat vital organ system(s) failure or risk of failure.
--- NOTE | 2018-09-10 17:47 | PN ---
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 Who presented to the ED with respiratory distress. Family was not at bedside per ED records: BIBEMS secondary to acute onset of shortness of breath. He is permanently on 3.5 L Oxygen at home, but this morning was experiencing respiratory distress despite being on the Bipap machine at home so the family called EMS. He's on Demadex and Spironolactone - Current Medication List Current Medications: Active Medications Apixaban (Eliquis -) 2.5 mg PO BID COUNTS INCLUDE 234 BEDS AT THE [facility] Last Admin: 09/10/18 10:06 Dose: 2.5 mg Aspirin (Asa -) 81 mg PO DAILY COUNTS INCLUDE 234 BEDS AT THE [facility] Last Admin: 09/10/18 10:07 Dose: 81 mg Chlorhexidine Gluconate (Hibiclens For Decolonization -) 1 applic TP HS COUNTS INCLUDE 234 BEDS AT THE [facility] Colchicine (Colcrys) 0.6 mg PO BID COUNTS INCLUDE 234 BEDS AT THE [facility] Last Admin: 09/10/18 10:06 Dose: 0.6 mg Docusate Sodium (Colace -) 100 mg PO BID COUNTS INCLUDE 234 BEDS AT THE [facility] Last Admin: 09/10/18 12:44 Dose: 100 mg Febuxostat (Uloric -) 40 mg PO DAILY COUNTS INCLUDE 234 BEDS AT THE [facility] Last Admin: 09/10/18 12:44 Dose: 40 mg Furosemide (Lasix Injection -) 100 mg IVPUSH DAILY COUNTS INCLUDE 234 BEDS AT THE [facility] Last Admin: 09/10/18 10:05 Dose: 100 mg Insulin Aspart (Novolog Vial Sliding Scale -) 1 vial SQ Q6H COUNTS INCLUDE 234 BEDS AT THE [facility]; Protocol Last Admin: 09/10/18 17:27 Dose: 4 unit Insulin Detemir (Levemir Vial) 60 units SQ DAILY@0700 COUNTS INCLUDE 234 BEDS AT THE [facility] Last Admin: 09/10/18 07:22 Dose: 60 units Levothyroxine Sodium (Synthroid -) 50 mcg PO DAILY@0700 COUNTS INCLUDE 234 BEDS AT THE [facility] Last Admin: 09/10/18 10:08 Dose: 50 mcg Metoprolol Succinate (Toprol Xl -) 50 mg PO BID COUNTS INCLUDE 234 BEDS AT THE [facility] Mupirocin (Bactroban Ointment (For Decolonization) -) 1 applic NS BID COUNTS INCLUDE 234 BEDS AT THE [facility] Stop: 09/15/18 09:59 Last Admin: 09/10/18 10:07 Dose: 1 applic Non-Formulary Medication (Linaclotide [Linzess]) 290 mcg PO DAILY COUNTS INCLUDE 234 BEDS AT THE [facility] Polyethylene Glycol (Miralax (For Daily Use) -) 17 gm PO DAILY JOE Last Admin: 09/10/18 12:45 Dose: 17 grams Spironolactone (Aldactone -) 25 mg PO DAILY JOE Last Admin: 09/10/18 10:06 Dose: 25 mg - Objective Vital Signs: Vital Signs Temperature 98.2 F 09/10/18 13:36 Pulse Rate 92 H 09/10/18 13:36 Respiratory Rate 20 09/10/18 13:36 Blood Pressure 126/69 09/10/18 13:36 O2 Sat by Pulse Oximetry (%) 97 09/10/18 17:18 Constitutional: Yes: Well Nourished, Obese Eyes: Yes: WNL, EOM Intact HENT: Yes: Atraumatic, Normocephalic Neck: Yes: WNL, Trachea Midline Cardiovascular: Yes: WNL Respiratory: Yes: Wheezes (RUL, RLL, BRIANA) Gastrointestinal: Yes: WNL, Normal Bowel Sounds, Abdomen, Obese ...Rectal Exam: Yes: Deferred Genitourinary: Yes: Dyer Present, Hematuria Musculoskeletal: Yes: Other (Pain in left foot, pt states he has had pain there for a long time likely due to Gout) Edema: Yes (BLLE ) Edema: LLE: Trace, RLE: Trace Peripheral Pulses WNL: Yes Psychiatric: Yes: WNL, Alert, Oriented Labs: CBC, BMP 09/10/18 05:25 09/10/18 05:25 INR, PTT INR 1.39 (0.83-1.09) H 09/09/18 21:35 Problem List - Problems (1) Atrial fibrillation Code(s): I48.91 - UNSPECIFIED ATRIAL FIBRILLATION Qualifiers: (2) CHF, acute on chronic Code(s): I50.9 - HEART FAILURE, UNSPECIFIED (3) CKD (chronic kidney disease) Code(s): N18.9 - CHRONIC KIDNEY DISEASE, UNSPECIFIED (4) DM type 2 (diabetes mellitus, type 2) Code(s): E11.9 - TYPE 2 DIABETES MELLITUS WITHOUT COMPLICATIONS (5) Leg swelling Code(s): M79.89 - OTHER SPECIFIED SOFT TISSUE DISORDERS (6) ASHD (arteriosclerotic heart disease) Code(s): I25.10 - ATHSCL HEART DISEASE OF [place] CORONARY ARTERY W/O ANG PCTRS (7) Acute kidney injury Code(s): N17.9 - ACUTE KIDNEY FAILURE, UNSPECIFIED Impression/Plan Impression/Plan: Acute Respiratory Failure with Hypoxia Currently on VM Strict I & O Daily weights Monitor off systemic steroids BD TX PRN Monitor off ABX Continue home meds Consulted Cardiology, , and Pulmonary will continue their recommendations Visit type - Emergency Visit Emergency Visit: Yes ED Registration Date: 09/09/18 Care time: The patient presented to the Emergency Department on the above date and was hospitalized for further evaluation of their emergent condition. - New Patient This patient is new to me today: Yes Date on this admission: 09/10/18 - Critical Care Critical Care patient: No
[2018-09-10] MEDS ORDERED: PT OWN MED DRAWER 7, Y5N ONE (21:39)
[2018-09-10] MEDS: CHLORHEXIDINE GLUCONATE 4% CLEANSER FOR DECOLONIZATION TP SCH (21:42)
[2018-09-11] MEDS: INSULIN SLIDING SCALE (NOVOLOG) 1 VIAL SQ SCH ×4 (00:21→17:38)
[2018-09-11] MEDS: INSULIN (LEVEMIR) 100 UNITS/ML UNITS SQ SCH (06:08)
[2018-09-11] MEDS: LEVOTHYROXINE NA 50 MCG TABLET (FP) PO SCH (06:12)
[2018-09-11 06:28] LABS: ANION GAP 2 MMOL/L (8-16); BLOOD UREA NITROGEN 59.8 mg/dL (7-18); CALCIUM 8.3 mg/dL (8.5-10.1); CHLORIDE 96 mmol/L (98-107); CO2 > 45 mmol/L (21-32); GLUCOSE,RANDOM 108 mg/dL (74-106); POTASSIUM 3.8 mmol/L (3.5-5.1); SODIUM 143 mmol/L (136-145)
--- NOTE | 2018-09-11 07:10 | PN ---
Progress Note, Physician Chief Complaint: 88 y.o M was admitted to ICU due to acute on chronic hypercarbic respiratory failure and worsening CHFdEF. The patient was followed regularly every 1-2 weeks in the office for ILD/OSAS/ CHF/ CKD 3-4/DM 2 but his condition deteriorated and he became more lethargic and hypoxic on home BIPAP and was brought to the ER by the family. He is being treated with IV diuretics, respiratory support in the ICU and followed by pulmonology and cardiology, Hospitalist staff coverage appreciated. History of Present Illness: Persistent left basilar atelectasis/consolidation. CABG ASHD. DM type on Levemir/Januvia. Hypothyroidism. CRI/ckd 4. 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 Previous Thoracentesis in the past-neg for malignancy. JUAN-at nights using BIPAP. Chronic A.Fib. Combined CHF. Gout. Gouty arthritis. Previous rectal surgery for abscess, fistula at [facility]. - Current Medication List Current Medications: Active Medications Apixaban (Eliquis -) 2.5 mg PO BID [facility] Last Admin: 09/10/18 21:42 Dose: 2.5 mg Aspirin (Asa -) 81 mg PO DAILY [facility] Last Admin: 09/10/18 10:07 Dose: 81 mg Bisacodyl (Dulcolax -) 10 mg PO DAILY [facility] Chlorhexidine Gluconate (Hibiclens For Decolonization -) 1 applic TP HS [facility] Last Admin: 09/10/18 21:42 Dose: 1 applic Colchicine (Colcrys) 0.6 mg PO BID [facility] Last Admin: 09/10/18 21:41 Dose: 0.6 mg Docusate Sodium (Colace -) 100 mg PO BID [facility] Last Admin: 09/10/18 21:40 Dose: 100 mg Febuxostat (Uloric -) 40 mg PO DAILY [facility] Last Admin: 09/10/18 12:44 Dose: 40 mg Furosemide (Lasix Injection -) 100 mg IVPUSH BID@0600,1400 [facility] Insulin Aspart (Novolog Vial Sliding Scale -) 1 vial SQ Q6H [facility]; Protocol Last Admin: 09/11/18 06:07 Dose: Not Given Insulin Detemir (Levemir Vial) 60 units SQ DAILY@0700 [facility] Last Admin: 09/11/18 06:08 Dose: 60 units Levothyroxine Sodium (Synthroid -) 50 mcg PO DAILY@0700 [facility] Last Admin: 09/11/18 06:12 Dose: 50 mcg Metoprolol Succinate (Toprol Xl -) 50 mg PO BID [facility] Last Admin: 09/10/18 21:42 Dose: 50 mg Mupirocin (Bactroban Ointment (For Decolonization) -) 1 applic NS BID [facility] Stop: 09/15/18 09:59 Last Admin: 09/10/18 21:40 Dose: 1 applic Non-Formulary Medication (Linaclotide [Linzess]) 290 mcg PO DAILY [facility] Polyethylene Glycol (Miralax (For Daily Use) -) 17 gm PO DAILY [facility] Last Admin: 09/10/18 12:45 Dose: 17 grams Spironolactone (Aldactone -) 25 mg PO DAILY [facility] Last Admin: 09/10/18 10:06 Dose: 25 mg - Objective Vital Signs: Vital Signs Temperature 98.9 F 09/11/18 06:00 Pulse Rate 101 H 09/11/18 06:00 Respiratory Rate 20 09/11/18 06:00 Blood Pressure 112/72 09/11/18 06:00 O2 Sat by Pulse Oximetry (%) 97 09/11/18 00:05 Constitutional: Yes: Moderate Distress, Obese Eyes: Yes: Conjunctiva Clear, EOM Intact HENT: Yes: Atraumatic, Normocephalic Neck: Yes: Supple, Trachea Midline Cardiovascular: Yes: Pulse Irregular (A.FIB), S1, S2, Other (Right 3 lumen CVP) . No: Bruit, Gallop Respiratory: Yes: Regular, Cough, Diminished (B/L), On BiPap, Rhonchi, Wheezes Gastrointestinal: Yes: Normal Bowel Sounds, Soft, Abdomen, Obese. No: Ascites, Palpable Mass, Tenderness ...Rectal Exam: Yes: Deferred Genitourinary: Yes: Dyer Present Breast(s): Yes: WNL Musculoskeletal: Yes: WNL Extremities: No: Cold, Cyanosis Edema: Yes Edema: LLE: 2+, RLE: 2+ Peripheral Pulses WNL: No Neurological: Yes: Alert, Oriented. No: Aphasia ...Motor Strength: WNL Psychiatric: Yes: Alert, Other (Lethargic) Labs: CBC, BMP 09/10/18 05:25 09/11/18 05:04 INR, PTT INR 1.39 (0.83-1.09) H 09/09/18 21:35 - ....Imaging Chest X-ray: Report Reviewed Problem List - Problems (1) Atrial fibrillation Assessment/Plan: Continue Eliquis, follow on telemetry, rate control Code(s): I48.91 - UNSPECIFIED ATRIAL FIBRILLATION Qualifiers: Atrial fibrillation type: chronic (2) CHF, acute on chronic Assessment/Plan: Increase IV Lasix 100 mg BID Continue Spironolactone. Avoid ARB/BETTY due to stage e CKD, electrolyte imbalance. Code(s): I50.9 - HEART FAILURE, UNSPECIFIED Qualifiers: Heart failure type: combined systolic and diastolic Qualified Code(s): I50.43 - Acute on chronic combined systolic (congestive) and diastolic ( congestive) heart failure (3) CKD (chronic kidney disease) Code(s): N18.9 - CHRONIC KIDNEY DISEASE, UNSPECIFIED (4) DM type 2 (diabetes mellitus, type 2) Code(s): E11.9 - TYPE 2 DIABETES MELLITUS WITHOUT COMPLICATIONS Qualifiers: Diabetes mellitus buttermaker continuous churn insulin use: with buttermaker continuous churn use Chronic kidney disease stage: stage 4 (severe)
--- NOTE | 2018-09-11 07:59 | PN ---
Progress Note, Physician Chief Complaint: On NIPPV TELE: AF, controlled. - Current Medication List Current Medications: Active Medications Apixaban (Eliquis -) 2.5 mg PO BID [facility] Last Admin: 09/10/18 21:42 Dose: 2.5 mg Aspirin (Asa -) 81 mg PO DAILY [facility] Last Admin: 09/10/18 10:07 Dose: 81 mg Bisacodyl (Dulcolax -) 10 mg PO DAILY [facility] Chlorhexidine Gluconate (Hibiclens For Decolonization -) 1 applic TP HS [facility] Last Admin: 09/10/18 21:42 Dose: 1 applic Colchicine (Colcrys) 0.6 mg PO BID [facility] Last Admin: 09/10/18 21:41 Dose: 0.6 mg Docusate Sodium (Colace -) 100 mg PO BID [facility] Last Admin: 09/10/18 21:40 Dose: 100 mg Febuxostat (Uloric -) 40 mg PO DAILY [facility] [place] Last Admin: 09/10/18 12:44 Dose: 40 mg Furosemide (Lasix Injection -) 100 mg IVPUSH BID@0600,1400 [facility] Insulin Aspart (Novolog Vial Sliding Scale -) 1 vial SQ Q6H [facility]; Protocol Last Admin: 09/11/18 06:07 Dose: Not Given Insulin Detemir (Levemir Vial) 60 units SQ DAILY@0700 [facility] Last Admin: 09/11/18 06:08 Dose: 60 units Levothyroxine Sodium (Synthroid -) 50 mcg PO DAILY@0700 [facility] Last Admin: 09/11/18 06:12 Dose: 50 mcg Metoprolol Succinate (Toprol Xl -) 50 mg PO BID [facility] Last Admin: 09/10/18 21:42 Dose: 50 mg Mupirocin (Bactroban Ointment (For Decolonization) -) 1 applic NS BID [facility] Stop: 09/15/18 09:59 Last Admin: 09/10/18 21:40 Dose: 1 applic Non-Formulary Medication (Linaclotide [Linzess]) 290 mcg PO DAILY [facility] Polyethylene Glycol (Miralax (For Daily Use) -) 17 gm PO DAILY [facility] [place] Last Admin: 09/10/18 12:45 Dose: 17 grams Spironolactone (Aldactone -) 25 mg PO DAILY [facility] [place] Last Admin: 09/10/18 10:06 Dose: 25 mg - Objective Vital Signs: Vital Signs Temperature 98.9 F 09/11/18 06:00 Pulse Rate 101 H 09/11/18 06:00 Respiratory Rate 20 09/11/18 06:00 Blood Pressure 112/72 09/11/18 06:00 O2 Sat by Pulse Oximetry (%) 97 09/11/18 00:05 Constitutional: Yes: Obese Eyes: Yes: Conjunctiva Clear Cardiovascular: Yes: Pulse Irregular Respiratory: Yes: Rhonchi, Other (decreased breath sounds at bases) Gastrointestinal: Yes: Soft, Abdomen, Obese Edema: Yes Edema: LLE: 1+, RLE: 1+ Labs: CBC, BMP 09/10/18 05:25 09/11/18 05:04 INR, PTT INR 1.39 (0.83-1.09) H 09/09/18 21:35 Laboratory Tests 09/10/18 09/10/18 09/11/18 05:25 08:55 05:04 WBC 8.4 Hgb 12.1 Plt Count 145 ABG pH 7.40 ABG pCO2 at Pt Temp 65.5 H ABG pO2 at Pt Temp 79.0 L Oxygen Flow Rate 40% Sodium 143 Potassium 3.8 BUN 59.8 H Creatinine 2.0 H - ....Imaging EKG: Image Reviewed Assessment/Plan Assessment/Plan Echo 04/2018: EF 45%, mod MR/TR, at least mild , moderate to severe PHTN Nuclear stress 2017: Pharm: small inferolat infarct, mild arlin-infarct ischemia , Overall EF 35-40% IMP: 1.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 Chronic AF 6.CAD s/p CABG 7. PHTN 8. CKD with baseline creatinine 2.0 REC: 1.Agree with IV Lasix daily, with daily weights, strict Is/Os and daily BMP to monitor renal fxn closely. Creat improved w/ diuresis. 2. NIPPV and suppl O2. 3. Rates are currently well controlled, cont Eliquis adjusted for age and renal fx. Cont Metoprolol at home dose. 4. PHTN is chronic and due to combo of his chronic lung dz and left sided cardiac failure. Will diurese and try to optimized secondary conditions. Suppliment O2.
--- NOTE | 2018-09-11 07:59 | PN ---
Physical Exam: SUBJECTIVE: Patient seen and examined at bedside this morning. Telemetry overnight shows Afib, rate controlled. Patient denies subjective fevers, chills , shortness of breath, chest pain, palpitations, abdominal pain, nausea, vomiting. OBJECTIVE: Vital Signs Period Temp Pulse Resp BP Sys/Junior Pulse Ox Last 24 Hr 97.7 F-98.9 F 90-108 20-33 112-164/58-82 96-99 GENERAL: The patient is awake, alert, and oriented, in no acute distress. HEAD: Normocephalic, atraumatic EYES: PERRL, extraocular movements intact, sclera anicteric, conjunctiva clear. ENT: Oropharynx clear without exudates, moist mucous membranes. NECK: Supple without lymphadenopathy. Right sided internal jugular central venous catheter in place. LUNGS: Mechanical breath sounds with rhonchi auscultated bilaterally. No accessory muscle use. HEART: Irregular rate and rhythm, S1, S2 without murmur, rub or gallop. ABDOMEN: Soft, nontender. Normoactive bowel sounds. No guarding, no rebound tenderness. EXTREMITIES: 2+ radial, dorsalis pedis pulses bilaterally. Warm, well-perfused. 2+ bilateral lower extremity edema. NEUROLOGICAL: Cranial nerves II through XII grossly intact. Normal speech. SKIN: Warm, dry. Laboratory Results - last 24 hr 09/10/18 09/10/18 09/10/18 08:55 17:04 17:07 Puncture Site Right radial ABG pH 7.40 ABG pCO2 at Pt Temp 65.5 H ABG pO2 at Pt Temp 79.0 L ABG HCO3 39.3 H ABG O2 Sat (Measured) 95.4 ABG O2 Content 15.7 ABG Base Excess 12.1 H Esteban Test Positive O2 Delivery Device Bipap Oxygen Flow Rate 40% Vent Mode S/t Vent Rate 12 Mechanical Rate Bipap Pressure Support Vent Ipap 15/epap 8 Sodium Potassium Chloride Carbon Dioxide Anion Gap BUN Creatinine Est GFR (CKD-EPI)AfAm Est GFR (CKD-EPI)NonAf POC Glucometer 187 215 Random Glucose Calcium 09/11/18 09/11/18 09/11/18 00:19 05:04 06:06 Puncture Site ABG pH ABG pCO2 at Pt Temp ABG pO2 at Pt Temp ABG HCO3 ABG O2 Sat (Measured) ABG O2 Content ABG Base Excess Esteban Test O2 Delivery Device Oxygen Flow Rate Vent Mode Vent Rate Mechanical Rate Pressure Support Vent Sodium 143 Potassium 3.8 Chloride 96 L Carbon Dioxide > 45 H Anion Gap 2 L BUN 59.8 H Creatinine 2.0 H Est GFR (CKD-EPI)AfAm 33.78 Est GFR (CKD-EPI)NonAf 29.14 POC Glucometer 189 111 Random Glucose 108 H Calcium 8.3 L Active Medications Generic Name Dose Route Start Last Admin Trade Name Vincenzo PRN Reason Stop Dose Admin Apixaban 2.5 mg 09/10/18 10:00 09/10/18 21:42 Eliquis - PO 2.5 mg BID [facility] Administration Aspirin 81 mg 09/10/18 10:00 09/10/18 10:07 Asa - PO 81 mg DAILY [facility] Administration Bisacodyl 10 mg 09/11/18 10:00 Dulcolax - PO DAILY [facility] Chlorhexidine Gluconate 1 applic 09/10/18 22:00 09/10/18 21:42 Hibiclens For Decolonization - TP 1 applic HS [facility] Administration Colchicine 0.6 mg 09/10/18 10:00 09/10/18 21:41 Colcrys PO 0.6 mg BID [facility] Administration Docusate Sodium 100 mg 09/10/18 11:15 09/10/18 21:40 Colace - PO 100 mg BID [facility] Administration Febuxostat 40 mg 09/10/18 10:00 09/10/18 12:44 Uloric - PO 40 mg DAILY [facility] Administration Furosemide 100 mg 09/11/18 14:00 Lasix Injection - IVPUSH BID@0600,1400 [facility] Insulin Aspart 1 vial 09/10/18 00:00 09/11/18 06:07 Novolog Vial Sliding Scale - SQ Not Given Q6H [facility] Protocol Insulin Detemir 60 units 09/10/18 07:00 09/11/18 06:08 Levemir Vial SQ 60 units DAILY@0700 [facility] Administration Levothyroxine Sodium 50 mcg 09/10/18 07:00 09/11/18 06:12 Synthroid - PO 50 mcg DAILY@0700 [facility] Administration Metoprolol Succinate 50 mg 09/10/18 22:00 09/10/18 21:42 Toprol Xl - PO 50 mg BID [facility] Administration Mupirocin 1 applic 09/10/18 10:00 09/10/18 21:40 Bactroban Ointment (For Decolonization) - NS 09/15/18 09:59 1 applic BID [facility] Administration Non-Formulary Medication 290 mcg 09/10/18 10:00 Linaclotide [Linzess] PO DAILY [facility] Polyethylene Glycol 17 gm 09/10/18 11:15 09/10/18 12:45 Miralax (For Daily Use) - PO 17 grams DAILY [facility] Administration Spironolactone 25 mg 09/10/18 10:00 09/10/18 10:06 Aldactone - PO 25 mg DAILY [facility] Administration ASSESSMENT/PLAN: Patient is an 88 year old male with history of restrictive lung disease ( asbestosis), HFrEF (EF 45-50%), Afib (on Eliquis), CKD IV, diabetes mellitus admitted to ICU due to acute, hypoxic, hypercarbic respiratory failure. Neurological -Patient is awake, alert, oriented. No acute distress. -Monitor for signs of mental status change. Cardiovascular Afib CHF -Metoprolol 50mg PO BID -Spironolactone 25mg PO daily -Lasix 100mg IV BID -Eliquis 2.5mg PO BID -Cardiology recommendations (Dr. Starkey) appreciated. Pulmonary Acute hypoxic respiratory failure History of interstitial lung disease (asbestosis) -Chest radiograph -BiLevel ventilation [id number] 8- Rate 12- FiO2 40% -Duonebs 1AMP Q4 hours PRN -Repeat ABG Gastrointestinal -Cholesterol, sodium restricted diet. Endocrine Hypothyroidism Levothyroxine 50mcg PO daily [facility] -No IV fluids indicated -Follow CMP, replete as necessary -Cholesterol, sodium restricted diet. Prophylaxis -Eliquis 2.5mg PO BID Disposition -Continue care in ICU Visit type - Emergency Visit Emergency Visit: Yes ED Registration Date: 09/09/18 Care time: The patient presented to the Emergency Department on the above date and was hospitalized for further evaluation of their emergent condition. - New Patient This patient is new to me today: Yes Date on this admission: 09/11/18 - Critical Care Critical Care patient: Yes Total Critical Care Time (in minutes): 35 Critical Care Statement: The care of this patient involved high complexity decision making to prevent further life threatening deterioration of the patient 's condition and/or to evaluate & treat vital organ system(s) failure or risk of failure. - Discharge Referral Referred to [facility] No
[2018-09-11] MEDS ORDERED: FUROSEMIDE 40 MG/4 ML INJECTABLE VIAL ONE (08:08)
[2018-09-11] MEDS: FUROSEMIDE 100 MG/10 ML INJECTABLE VIAL IVPUSH SCH ×2 (08:13→14:22)
[2018-09-11] MEDS: ASPIRIN 81 MG CHEWABLE TABLETS PO SCH (09:36)
[2018-09-11] MEDS: COLCHICINE 0.6 MG CAP PO SCH ×2 (09:36→21:12)
[2018-09-11] MEDS: FEBUXOSTAT 40 MG TAB PO SCH (09:36)
[2018-09-11] MEDS: DOCUSATE SODIUM 100 MG CAPSULE (FP) PO SCH ×2 (09:36→21:12)
[2018-09-11] MEDS: BISACODYL 5 MG TABLET.DR (FP) PO SCH (09:36)
[2018-09-11] MEDS: SPIRONOLACTONE 25 MG TABLET (FP) PO SCH (09:36)
[2018-09-11] MEDS: POLYETHYLENE GLYCOL 3350 119 GM BTL PO SCH (09:38)
[2018-09-11] MEDS: APIXABAN 2.5 MG TABLET PO SCH ×2 (09:44→21:12)
[2018-09-11] MEDS: MUPIROCIN 2% TOPICAL OINTMENT FOR DECOLONIZATION NS SCH ×2 (10:30→21:14)
[2018-09-11] MEDS ORDERED: ALBUTEROL SO4 2.5/IPRATROPIUM 0.5 INH SOL 3 ML VIAL.NEB. NEB PRN (11:39)
--- NOTE | 2018-09-11 12:26 | PN ---
Teaching Attending Note Name of Resident: Alvaro Muñoz ATTENDING PHYSICIAN STATEMENT I saw and evaluated the patient. I reviewed the resident's note and discussed the case with the resident. I agree with the resident's findings and plan as documented. SUBJECTIVE: Pt seen and examined in the ICU. Remains on BiPAP, somnolent but arousable. OBJECTIVE: Vital Signs Period Temp Pulse Resp BP Sys/Junior Pulse Ox Last 24 Hr 97.7 F-98.9 F 90-108 20-33 112-164/58-82 95-99 Intake & Output 09/08/18 09/09/18 09/10/18 09/11/18 23:59 23:59 23:59 23:59 Intake Total 750 770 250 Output Total 4400 1400 Balance 750 -3630 -1150 Weight 113.4 kg 51.301 kg 50.666 kg Gen: somnolent but arousable on BiPAP Heart: RRR Lung: decreased breath sounds at the bases Abd: soft, nontender Ext: + edema CBC, BMP 09/10/18 05:25 09/11/18 05:04 Active Medications Albuterol/Ipratropium (Duoneb -) 1 amp NEB Q4H PRN PRN Reason: SHORTNESS OF BREATH Apixaban (Eliquis -) 2.5 mg PO BID [facility] Last Admin: 09/11/18 09:44 Dose: 2.5 mg Aspirin (Asa -) 81 mg PO DAILY [facility] Last Admin: 09/11/18 09:36 Dose: 81 mg Bisacodyl (Dulcolax -) 10 mg PO DAILY [facility] Last Admin: 09/11/18 09:36 Dose: 10 mg Chlorhexidine Gluconate (Hibiclens For Decolonization -) 1 applic TP HS [facility] Last Admin: 09/10/18 21:42 Dose: 1 applic Colchicine (Colcrys) 0.6 mg PO BID [facility] Last Admin: 09/11/18 09:36 Dose: 0.6 mg Docusate Sodium (Colace -) 100 mg PO BID [facility] Last Admin: 09/11/18 09:36 Dose: 100 mg Febuxostat (Uloric -) 40 mg PO DAILY [facility] Last Admin: 09/11/18 09:36 Dose: 40 mg Furosemide (Lasix Injection -) 100 mg IVPUSH BID@0600,1400 [facility] Last Admin: 09/11/18 08:13 Dose: 100 mg Insulin Aspart (Novolog Vial Sliding Scale -) 1 vial SQ Q6H [facility]; Protocol Last Admin: 09/11/18 06:07 Dose: Not Given Insulin Detemir (Levemir Vial) 60 units SQ DAILY@0700 [facility] Last Admin: 09/11/18 06:08 Dose: 60 units Levothyroxine Sodium (Synthroid -) 50 mcg PO DAILY@0700 [facility] Last Admin: 09/11/18 06:12 Dose: 50 mcg Metoprolol Succinate (Toprol Xl -) 50 mg PO BID [facility] Last Admin: 09/11/18 09:44 Dose: 50 mg Mupirocin (Bactroban Ointment (For Decolonization) -) 1 applic NS BID [facility] Stop: 09/15/18 09:59 Last Admin: 09/10/18 21:40 Dose: 1 applic Non-Formulary Medication (Linaclotide [Linzess]) 290 mcg PO DAILY [facility] Polyethylene Glycol (Miralax (For Daily Use) -) 17 gm PO DAILY [facility] Last Admin: 09/11/18 09:38 Dose: 17 grams Spironolactone (Aldactone -) 25 mg PO DAILY [facility] Last Admin: 09/11/18 09:36 Dose: 25 mg ASSESSMENT AND PLAN: Acute on Chronic Hypoxic and Hypercapneic Respiratory Failure 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 Pulmonary HTN Obstructive Sleep Apnea CAD s/p CABG Atrial Fibrillation CKD DM - continue lasix, aldactone - monitor urine output, creatinine - inhaled bronchodilators - O2 to keep SpO2 88-92% - BiPAP - check ABG if remains somnolent - continue ICU monitoring critical care time spent in reviewing chart, evaluating patient and formulating plan 35 min
[2018-09-11] MEDS: PATIENT'S OWN MEDICATION (NON-FORMULARY) (Linaclotide [Linzess] 290 MCG) PO SCH (15:25)
[2018-09-11] MEDS ORDERED: PT OWN MED DRAWER 7, Y5N ONE (21:10)
[2018-09-11] MEDS: CHLORHEXIDINE GLUCONATE 4% CLEANSER FOR DECOLONIZATION TP SCH (21:16)
[2018-09-12] MEDS: INSULIN SLIDING SCALE (NOVOLOG) 1 VIAL SQ SCH ×5 (00:10→23:51)
[2018-09-12] MEDS ORDERED: DEXTROSE 50%-WATER 25 GM/50 ML DISP.SYRIN ONE ×2 (00:56→01:06)
[2018-09-12] MEDS ORDERED: DEXTROSE 50%-WATER - 25 GM/50 ML VIAL IVPUSH ONE ×2 (00:58→01:05)
--- NOTE | 2018-09-12 01:49 | PN ---
Progress Note (short form) - Note Progress Note: Pt hypoglycemia to 40's on POC glucometer. Given 2 orange juices and D50 with POC only 55 after appropriate waiting time. Another D50 given now. Pt noted to desaturate down to 85%. Increased NIPPV settings to compensate for soft tissue relaxation and pt's sleeping while pt hypoglycemic. Pt was responsive to palpation throughout and noted to be diaphoretic. Repeat POC glucometer after intervention is 255. Pt was noted to only eat soup today and receiving full dose of Levemir 60U in AM. Will decrease pt's AM medication to 30U as pt is not tolerating meals due to desaturation.
[2018-09-12] MEDS ORDERED: INSULIN (LEVEMIR) 100 UNITS/ML UNITS SQ SCH (01:51)
[2018-09-12 06:10] LABS: BASO % 0.7 % (0-2.0); EOS % 0.9 % (0-4.5); HEMATOCRIT 36.4 % (35.4-49); HEMOGLOBIN 11.7 GM/dL (11.7-16.9); LYMPH % 13.2 % (8-40); MCHC 32.1 g/dl (32.0-35.9); MEAN CELL VOLUME 90.4 fl (80-96); MEAN PLT VOLUME 7.8 fl (7.5-11.1); MONO % 15.4 % (3.8-10.2); NEUT % 69.8 % (42.8-82.8); PLATELET COUNT 141 K/MM3 (134-434); RBC 4.03 M/mm3 (4.00-5.60); RDW 19.4 % (11.9-15.9); WHITE BLOOD COUNT 6.3 K/mm3 (4.0-10.0)
[2018-09-12] MEDS: LEVOTHYROXINE NA 50 MCG TABLET (FP) PO SCH (06:11)
[2018-09-12] MEDS: FUROSEMIDE 100 MG/10 ML INJECTABLE VIAL IVPUSH SCH ×2 (06:11→14:25)
[2018-09-12] MEDS ORDERED: PT OWN MED DRAWER 7, Y5N ONE ×4 (06:39→21:53)
[2018-09-12 06:42] LABS: ALBUMIN 2.8 g/dl (3.4-5.0); ALK PHOS 73 U/L (45-117); ANION GAP 2 MMOL/L (8-16); BILIRUBIN,TOTAL 0.5 mg/dL (0.2-1); BLOOD UREA NITROGEN 53.9 mg/dL (7-18); CALCIUM 8.4 mg/dL (8.5-10.1); CHLORIDE 96 mmol/L (98-107); CO2 > 45 mmol/L (21-32); CREATININE 1.8 mg/dL (0.55-1.3); GLUCOSE,RANDOM 150 mg/dL (74-106); MAGNESIUM 2.6 mg/dL (1.8-2.4); PHOSPHOROUS 3.4 mg/dL (2.5-4.9); POTASSIUM 3.8 mmol/L (3.5-5.1); SGOT/AST 18 U/L (15-37); SGPT/ALT 23 U/L (13-61); SODIUM 144 mmol/L (136-145); TOT PROT 6.2 g/dl (6.4-8.2)
--- NOTE | 2018-09-12 07:24 | PN ---
Physical Exam: SUBJECTIVE: Patient seen and examined at bedside. Overnight patient noted to be hypoglycemic to 45, responded to juice and 2x AMP D50. This morning patient is awake, alert, communicative. No acute distress. OBJECTIVE: Vital Signs Period Temp Pulse Resp BP Sys/Junior Pulse Ox Last 24 Hr 97.3 F-98.5 F 84-101 20-30 109-145/43-91 91-100 GENERAL: The patient is awake, alert, and oriented, in no acute distress. HEAD: Normocephalic, atraumatic EYES: PERRL, extraocular movements intact, sclera anicteric, conjunctiva clear. ENT: Oropharynx clear without exudates, moist mucous membranes. NECK: Supple without lymphadenopathy. Right sided internal jugular central venous catheter in place. LUNGS: Mechanical breath sounds with rhonchi auscultated bilaterally. No accessory muscle use. HEART: Irregular rate and rhythm, S1, S2 without murmur, rub or gallop. ABDOMEN: Soft, nontender. Normoactive bowel sounds. No guarding, no rebound tenderness. EXTREMITIES: 2+ radial, dorsalis pedis pulses bilaterally. Warm, well-perfused. 2+ bilateral lower extremity edema. NEUROLOGICAL: Cranial nerves II through XII grossly intact. Normal speech. SKIN: Warm, dry. Laboratory Results - last 24 hr 09/11/18 09/11/18 09/12/18 11:51 16:26 00:37 WBC RBC Hgb Hct MCV MCH MCHC RDW Plt Count MPV Absolute Neuts (auto) Neutrophils % Lymphocytes % Monocytes % Eosinophils % Basophils % Nucleated RBC % Sodium Potassium Chloride Carbon Dioxide Anion Gap BUN Creatinine Est GFR (CKD-EPI)AfAm Est GFR (CKD-EPI)NonAf POC Glucometer 86 186 40 Random Glucose Calcium Phosphorus Magnesium Total Bilirubin AST ALT Alkaline Phosphatase Total Protein Albumin 09/12/18 09/12/18 09/12/18 00:55 01:52 05:35 WBC 6.3 RBC 4.03 Hgb 11.7 Hct 36.4 MCV 90.4 MCH 29.0 MCHC 32.1 RDW 19.4 H Plt Count 141 MPV 7.8 Absolute Neuts (auto) 4.4 Neutrophils % 69.8 Lymphocytes % 13.2 D Monocytes % 15.4 H Eosinophils % 0.9 Basophils % 0.7 Nucleated RBC % 0 Sodium Potassium Chloride Carbon Dioxide Anion Gap BUN Creatinine Est GFR (CKD-EPI)AfAm Est GFR (CKD-EPI)NonAf POC Glucometer 55 225 Random Glucose Calcium Phosphorus Magnesium Total Bilirubin AST ALT Alkaline Phosphatase Total Protein Albumin 09/12/18 09/12/18 05:35 05:43 WBC RBC Hgb Hct MCV MCH MCHC RDW Plt Count MPV Absolute Neuts (auto) Neutrophils % Lymphocytes % Monocytes % Eosinophils % Basophils % Nucleated RBC % Sodium 144 Potassium 3.8 Chloride 96 L Carbon Dioxide > 45 H Anion Gap 2 L BUN 53.9 H Creatinine 1.8 H Est GFR (CKD-EPI)AfAm 38.37 Est GFR (CKD-EPI)NonAf 33.10 POC Glucometer 148 Random Glucose 150 H Calcium 8.4 L Phosphorus 3.4 Magnesium 2.6 H Total Bilirubin 0.5 AST 18 ALT 23 Alkaline Phosphatase 73 Total Protein 6.2 L Albumin 2.8 L Active Medications Generic Name Dose Route Start Last Admin Trade Name Freq PRN Reason Stop Dose Admin Albuterol/Ipratropium 1 amp 09/11/18 11:39 Duoneb - NEB Q4H PRN SHORTNESS OF BREATH Apixaban 2.5 mg 09/10/18 10:00 09/11/18 21:12 Eliquis - PO 2.5 mg BID JOE Administration Aspirin 81 mg 09/10/18 10:00 09/11/18 09:36 Asa - PO 81 mg DAILY JOE Administration Bisacodyl 10 mg 09/11/18 10:00 09/11/18 09:36 Dulcolax - PO 10 mg DAILY JOE Administration Chlorhexidine Gluconate 1 applic 09/10/18 22:00 09/11/18 21:16 Hibiclens For Decolonization - TP 1 applic HS JOE Administration Colchicine 0.6 mg 09/10/18 10:00 09/11/18 21:12 Colcrys PO 0.6 mg BID JOE Administration Docusate Sodium 100 mg 09/10/18 11:15 09/11/18 21:12 Colace - PO 100 mg BID JOE Administration Febuxostat 40 mg 09/10/18 10:00 09/11/18 09:36 Uloric - PO 40 mg DAILY JOE Administration Furosemide 100 mg 09/11/18 14:00 09/12/18 06:11 Lasix Injection - IVPUSH 100 mg BID@0600,1400 JOE Administration Insulin Aspart 1 vial 09/10/18 00:00 09/12/18 06:12 Novolog Vial Sliding Scale - SQ Not Given Q6H [facility] Protocol Insulin Detemir 30 units 09/12/18 01:51 09/12/18 06:11 Levemir Vial SQ 30 units DAILY@0700 JOE Administration Levothyroxine Sodium 50 mcg 09/10/18 07:00 09/12/18 06:11 Synthroid - PO 50 mcg DAILY@0700 JOE Administration Metoprolol Succinate 50 mg 09/10/18 22:00 09/11/18 21:12 Toprol Xl - PO 50 mg BID JOE Administration Mupirocin 1 applic 09/10/18 10:00 09/11/18 21:14 Bactroban Ointment (For Decolonization) - NS 09/15/18 09:59 1 applic BID JOE Administration Polyethylene Glycol 17 gm 09/10/18 11:15 09/11/18 09:38 Miralax (For Daily Use) - PO 17 grams DAILY JOE Administration Spironolactone 25 mg 09/10/18 10:00 09/11/18 09:36 Aldactone - PO 25 mg DAILY JOE Administration ASSESSMENT/PLAN: Patient is an 88 year old male with history of restrictive lung disease ( asbestosis), HFrEF (EF 45-50%), Afib (on Eliquis), CKD IV, diabetes mellitus admitted to ICU due to acute, hypoxic, hypercarbic respiratory failure. Neurological -Patient is awake, alert, oriented. No acute distress. -Monitor for signs of mental status change. Cardiovascular Afib CHF -Metoprolol 50mg PO BID -Spironolactone 25mg PO daily -Lasix 100mg IV BID -Eliquis 2.5mg PO BID -Cardiology recommendations appreciated. Pulmonary Acute hypoxic respiratory failure History of interstitial lung disease (asbestosis) -Chest radiograph -Currently on BiLevel ventilation. Will attempt to wean to nasal canula, as tolerated -Duonebs 1AMP Q4 hours standing Gastrointestinal -Cholesterol, sodium restricted diet. Endocrine Hypothyroidism Levothyroxine 50mcg PO daily FEN -No IV fluids indicated -Follow CMP, replete as necessary -Cholesterol, sodium restricted diet. Prophylaxis -Eliquis 2.5mg PO BID Disposition -Patient is medically stable for transfer to Telemetry floor. Visit type - Emergency Visit Emergency Visit: Yes ED Registration Date: 09/09/18 Care time: The patient presented to the Emergency Department on the above date and was hospitalized for further evaluation of their emergent condition. - New Patient This patient is new to me today: No - Critical Care Critical Care patient: Yes Total Critical Care Time (in minutes): 36 Critical Care Statement: The care of this patient involved high complexity decision making to prevent further life threatening deterioration of the patient 's condition and/or to evaluate & treat vital organ system(s) failure or risk of failure. - Discharge Referral Referred to [facility] No
[2018-09-12] MEDS: SPIRONOLACTONE 25 MG TABLET (FP) PO SCH (10:17)
[2018-09-12] MEDS: APIXABAN 2.5 MG TABLET PO SCH ×2 (10:17→22:18)
[2018-09-12] MEDS: ASPIRIN 81 MG CHEWABLE TABLETS PO SCH (10:17)
[2018-09-12] MEDS: FEBUXOSTAT 40 MG TAB PO SCH (10:18)
[2018-09-12] MEDS: DOCUSATE SODIUM 100 MG CAPSULE (FP) PO SCH ×2 (10:18→22:17)
[2018-09-12] MEDS: MUPIROCIN 2% TOPICAL OINTMENT FOR DECOLONIZATION NS SCH ×2 (10:18→22:17)
[2018-09-12] MEDS: COLCHICINE 0.6 MG CAP PO SCH ×2 (10:18→22:17)
[2018-09-12] MEDS: POLYETHYLENE GLYCOL 3350 119 GM BTL PO SCH (10:19)
[2018-09-12] MEDS: BISACODYL 5 MG TABLET.DR (FP) PO SCH (10:19)
--- NOTE | 2018-09-12 11:07 | PN ---
Progress Note (short form) - Note Progress Note: s: on bipap. TELE: AF, rate ok Current Medications Albuterol/Ipratropium (Duoneb -) 1 amp NEB Q4H PRN PRN Reason: SHORTNESS OF BREATH Apixaban (Eliquis -) 2.5 mg PO BID [facility] Last Admin: 09/12/18 10:17 Dose: 2.5 mg Aspirin (Asa -) 81 mg PO DAILY [facility] Last Admin: 09/12/18 10:17 Dose: 81 mg Bisacodyl (Dulcolax -) 10 mg PO DAILY [facility] Last Admin: 09/12/18 10:19 Dose: Not Given Chlorhexidine Gluconate (Hibiclens For Decolonization -) 1 applic TP HS [facility] Last Admin: 09/11/18 21:16 Dose: 1 applic Colchicine (Colcrys) 0.6 mg PO BID [facility] Last Admin: 09/12/18 10:18 Dose: 0.6 mg Docusate Sodium (Colace -) 100 mg PO BID [facility] Last Admin: 09/12/18 10:18 Dose: Not Given Febuxostat (Uloric -) 40 mg PO DAILY [facility] Last Admin: 09/12/18 10:18 Dose: 40 mg Furosemide (Lasix Injection -) 100 mg IVPUSH BID@0600,1400 [facility] Last Admin: 09/12/18 06:11 Dose: 100 mg Insulin Aspart (Novolog Vial Sliding Scale -) 1 vial SQ Q6H [facility]; Protocol Last Admin: 09/12/18 06:12 Dose: Not Given Insulin Detemir (Levemir Vial) 30 units SQ DAILY@0700 [facility] Last Admin: 09/12/18 06:11 Dose: 30 units Levothyroxine Sodium (Synthroid -) 50 mcg PO DAILY@0700 [facility] Last Admin: 09/12/18 06:11 Dose: 50 mcg Metoprolol Succinate (Toprol Xl -) 50 mg PO BID [facility] Last Admin: 09/12/18 10:18 Dose: 50 mg Mupirocin (Bactroban Ointment (For Decolonization) -) 1 applic NS BID [facility] Stop: 09/15/18 09:59 Last Admin: 09/12/18 10:18 Dose: 1 applic Polyethylene Glycol (Miralax (For Daily Use) -) 17 gm PO DAILY [facility] Last Admin: 09/12/18 10:19 Dose: Not Given Spironolactone (Aldactone -) 25 mg PO DAILY JOE Last Admin: 09/12/18 10:17 Dose: 25 mg Vital Signs Period Temp Pulse Resp BP Sys/Junior Pulse Ox Last 24 Hr 97.3 F-98.5 F 84-104 20-30 109-145/43-91 91-100 Constitutional: Yes: Obese Eyes: Yes: Conjunctiva Clear Cardiovascular: Yes: Pulse Irregular Respiratory: Yes: Rhonchi, Other (decreased breath sounds at bases). on bipap Gastrointestinal: Yes: Soft, Abdomen, Obese Edema: Yes Edema: LLE: 1+, RLE: 1+ no jaundice, diaphoresis not agitated EKG: Image Reviewed Assessment/Plan Assessment/Plan Echo 04/2018: EF 45%, mod MR/TR, at least mild , moderate to severe PHTN Nuclear stress 2017: Pharm: small inferolat infarct, mild arlin-infarct ischemia , Overall EF 35-40% IMP: 1.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 Chronic AF 6.CAD s/p CABG 7. PHTN 8. CKD with baseline creatinine 2.0 REC: 1. Continue IV lasix, with daily weights, strict Is/Os and daily BMP to monitor renal fxn closely. Creat improving w/ diuresis. 2. NIPPV and suppl O2. 3. Rates are currently well controlled, cont Eliquis adjusted for age and renal fx. Cont Metoprolol at home dose. 4. PHTN is chronic and due to combo of his chronic lung dz and left sided CHF, diuresis as above
[2018-09-12] MEDS ORDERED: ALBUTEROL SO4 2.5/IPRATROPIUM 0.5 INH SOL 3 ML VIAL.NEB. NEB SCH (12:00)
--- NOTE | 2018-09-12 12:41 | PN ---
Teaching Attending Note Name of Resident: Alvaro Muñoz ATTENDING PHYSICIAN STATEMENT I saw and evaluated the patient. I reviewed the resident's note and discussed the case with the resident. I agree with the resident's findings and plan as documented. SUBJECTIVE: Pt seen and examined in the ICU. Remains on BiPAP. More alert, awake today. Diuresing well. OBJECTIVE: Vital Signs Period Temp Pulse Resp BP Sys/Junior Pulse Ox Last 24 Hr 97.3 F-98.5 F 84-106 14-30 109-145/54-91 91-100 Intake & Output 09/09/18 09/10/18 09/11/18 09/12/18 23:59 23:59 23:59 23:59 Intake Total 738 673 9054 Output Total 4400 2900 2930 Balance 750 -3630 -1330 -2930 Weight 113.4 kg 51.301 kg 113.398 kg 110 kg Gen: less tachypneic on BiPAP Heart: RRR Lung: bilateral rhonchi, wheezes Abd: soft, nontender Ext:+ edema CBC, BMP 09/12/18 05:35 09/12/18 05:35 Active Medications Albuterol/Ipratropium (Duoneb -) 1 amp NEB RQ4H [facility] Last Admin: 09/12/18 11:45 Dose: 1 amp Apixaban (Eliquis -) 2.5 mg PO BID [facility] Last Admin: 09/12/18 10:17 Dose: 2.5 mg Aspirin (Asa -) 81 mg PO DAILY [facility] Last Admin: 09/12/18 10:17 Dose: 81 mg Bisacodyl (Dulcolax -) 10 mg PO DAILY [facility] Last Admin: 09/12/18 10:19 Dose: Not Given Chlorhexidine Gluconate (Hibiclens For Decolonization -) 1 applic TP HS [facility] Last Admin: 09/11/18 21:16 Dose: 1 applic Colchicine (Colcrys) 0.6 mg PO BID [facility] Last Admin: 09/12/18 10:18 Dose: 0.6 mg Docusate Sodium (Colace -) 100 mg PO BID [facility] Last Admin: 09/12/18 10:18 Dose: Not Given Febuxostat (Uloric -) 40 mg PO DAILY [facility] Last Admin: 09/12/18 10:18 Dose: 40 mg Furosemide (Lasix Injection -) 100 mg IVPUSH BID@0600,1400 [facility] Last Admin: 09/12/18 06:11 Dose: 100 mg Insulin Aspart (Novolog Vial Sliding Scale -) 1 vial SQ Q6H [facility]; Protocol Last Admin: 09/12/18 12:37 Dose: 2 unit Insulin Detemir (Levemir Vial) 30 units SQ DAILY@0700 [facility] Last Admin: 09/12/18 06:11 Dose: 30 units Levothyroxine Sodium (Synthroid -) 50 mcg PO DAILY@0700 [facility] Last Admin: 09/12/18 06:11 Dose: 50 mcg Metoprolol Succinate (Toprol Xl -) 50 mg PO BID [facility] Last Admin: 09/12/18 10:18 Dose: 50 mg Mupirocin (Bactroban Ointment (For Decolonization) -) 1 applic NS BID [facility] Stop: 09/15/18 09:59 Last Admin: 09/12/18 10:18 Dose: 1 applic Polyethylene Glycol (Miralax (For Daily Use) -) 17 gm PO DAILY [facility] Last Admin: 09/12/18 10:19 Dose: Not Given Spironolactone (Aldactone -) 25 mg PO DAILY [facility] Last Admin: 09/12/18 10:17 Dose: 25 mg ASSESSMENT AND PLAN: Acute on Chronic Hypoxic and Hypercapneic Respiratory Failure 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 Pulmonary HTN Obstructive Sleep Apnea CAD s/p CABG Atrial Fibrillation CKD DM - continue lasix, aldactone - monitor urine output, creatinine - inhaled bronchodilators standing and PRN - O2 to keep SpO2 88-92% - BiPAP as needed to assist in work of breathing - can monitor on telemetry critical care time spent in reviewing chart, evaluating patient and formulating plan 35 min
--- NOTE | 2018-09-12 12:53 | PN ---
Progress Note, Physician Chief Complaint: Still maintained on BIPAP 01/11-FIO2 50 %, RR 8 , desaturated to 80 on O2NC Episode of hypoglycemia last night Lantus dose was decreased to 30 units Asks to d/c Manisha. History of Present Illness: Persistent left basilar atelectasis/consolidation. CABG ASHD. DM type on Levemir/Januvia. Hypothyroidism. CRI/ckd 4. 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 Previous Thoracentesis in the past-neg for malignancy. JUAN-at nights using BIPAP. Chronic A.Fib. Combined CHF. Gout. Gouty arthritis. Previous rectal surgery for abscess, fistula at [facility]. - Current Medication List Current Medications: Active Medications Albuterol/Ipratropium (Duoneb -) 1 amp NEB RQ4H [facility] Last Admin: 09/12/18 11:45 Dose: 1 amp Apixaban (Eliquis -) 2.5 mg PO BID [facility] Last Admin: 09/12/18 10:17 Dose: 2.5 mg Aspirin (Asa -) 81 mg PO DAILY [facility] Last Admin: 09/12/18 10:17 Dose: 81 mg Bisacodyl (Dulcolax -) 10 mg PO DAILY [facility] Last Admin: 09/12/18 10:19 Dose: Not Given Chlorhexidine Gluconate (Hibiclens For Decolonization -) 1 applic TP HS [facility] Last Admin: 09/11/18 21:16 Dose: 1 applic Colchicine (Colcrys) 0.6 mg PO BID [facility] Last Admin: 09/12/18 10:18 Dose: 0.6 mg Docusate Sodium (Colace -) 100 mg PO BID [facility] Last Admin: 09/12/18 10:18 Dose: Not Given Febuxostat (Uloric -) 40 mg PO DAILY [facility] Last Admin: 09/12/18 10:18 Dose: 40 mg Furosemide (Lasix Injection -) 100 mg IVPUSH BID@0600,1400 [facility] Last Admin: 09/12/18 06:11 Dose: 100 mg Insulin Aspart (Novolog Vial Sliding Scale -) 1 vial SQ Q6H [facility]; Protocol Last Admin: 09/12/18 12:37 Dose: 2 unit Insulin Detemir (Levemir Vial) 30 units SQ DAILY@0700 [facility] Last Admin: 09/12/18 06:11 Dose: 30 units Levothyroxine Sodium (Synthroid -) 50 mcg PO DAILY@0700 [facility] Last Admin: 09/12/18 06:11 Dose: 50 mcg Metoprolol Succinate (Toprol Xl -) 50 mg PO BID [facility] Last Admin: 09/12/18 10:18 Dose: 50 mg Mupirocin (Bactroban Ointment (For Decolonization) -) 1 applic NS BID [facility] Stop: 09/15/18 09:59 Last Admin: 09/12/18 10:18 Dose: 1 applic Polyethylene Glycol (Miralax (For Daily Use) -) 17 gm PO DAILY [facility] Last Admin: 09/12/18 10:19 Dose: Not Given Spironolactone (Aldactone -) 25 mg PO DAILY [facility] Last Admin: 09/12/18 10:17 Dose: 25 mg - Objective Vital Signs: Vital Signs Temperature 98.1 F 09/12/18 10:00 Pulse Rate 106 H 09/12/18 12:00 Respiratory Rate 14 09/12/18 12:00 Blood Pressure 126/78 09/12/18 12:00 O2 Sat by Pulse Oximetry (%) 96 09/12/18 11:45 Constitutional: Yes: Moderate Distress, Obese, Other Eyes: Yes: Conjunctiva Clear HENT: Yes: Atraumatic, Normocephalic Neck: Yes: Supple, Trachea Midline Cardiovascular: Yes: Pulse Irregular (A.FIB), S1, S2 Respiratory: Yes: Diminished, On BiPap, Rhonchi, SOB, Wheezes Gastrointestinal: Yes: Soft, Abdomen, Obese. No: Tenderness ...Rectal Exam: Yes: Deferred Genitourinary: Yes: Dyer Present Breast(s): Yes: WNL Extremities: No: Cold, Cyanosis Edema: Yes Edema: LLE: 2+, RLE: 2+ Peripheral Pulses WNL: No Neurological: Yes: Alert, Oriented. No: Aphasia ...Motor Strength: WNL Psychiatric: Yes: WNL Labs: CBC, BMP 09/12/18 05:35 09/12/18 05:35 INR, PTT INR 1.39 (0.83-1.09) H 09/09/18 21:35 Problem List - Problems (1) Atrial fibrillation Assessment/Plan: Continue Eliquis, follow on telemetry, rate control Code(s): I48.91 - UNSPECIFIED ATRIAL FIBRILLATION Qualifiers: Atrial fibrillation type: chronic (2) CHF, acute on chronic Assessment/Plan: Continue IV Lasix 100 mg BID Continue Spironolactone. Avoid ARB/BETTY due to stage e CKD, electrolyte imbalance. D/C Dyer Use Urenal for I/O Code(s): I50.9 - HEART FAILURE, UNSPECIFIED Qualifiers: Heart failure type: combined systolic and diastolic Qualified Code(s): I50.43 - Acute on chronic combined systolic (congestive) and diastolic ( congestive) heart failure (3) CKD (chronic kidney disease) Code(s): N18.9 - CHRONIC KIDNEY DISEASE, UNSPECIFIED (4) DM type 2 (diabetes mellitus, type 2) Code(s): E11.9 - TYPE 2 DIABETES MELLITUS WITHOUT COMPLICATIONS Qualifiers: Diabetes mellitus custodial insulin use: with line crewman use Chronic kidney disease stage: stage 4 (severe)
[2018-09-12] MEDS: ALBUTEROL SO4 2.5/IPRATROPIUM 0.5 INH SOL 3 ML VIAL.NEB. NEB SCH ×2 (15:45→20:45)
[2018-09-12] MEDS ORDERED: CHLORHEXIDINE GLUCONATE 4% CLEANSER FOR DECOLONIZATION TP SCH (22:00)
[2018-09-13] MEDS: ALBUTEROL SO4 2.5/IPRATROPIUM 0.5 INH SOL 3 ML VIAL.NEB. NEB SCH ×6 (00:20→20:22)
[2018-09-13] MEDS: FUROSEMIDE 100 MG/10 ML INJECTABLE VIAL IVPUSH SCH ×2 (05:37→14:31)
[2018-09-13] MEDS: INSULIN SLIDING SCALE (NOVOLOG) 1 VIAL SQ SCH ×4 (05:37→23:09)
[2018-09-13 06:26] LABS: HEMATOCRIT 34.9 % (35.4-49); HEMOGLOBIN 11.2 GM/dL (11.7-16.9); MCHC 32.2 g/dl (32.0-35.9); MEAN CELL VOLUME 90.2 fl (80-96); MEAN PLT VOLUME 7.8 fl (7.5-11.1); PLATELET COUNT 154 K/MM3 (134-434); RBC 3.87 M/mm3 (4.00-5.60); RDW 19.4 % (11.9-15.9); WHITE BLOOD COUNT 5.8 K/mm3 (4.0-10.0)
[2018-09-13 06:42] LABS: ALBUMIN 2.7 g/dl (3.4-5.0); ALK PHOS 70 U/L (45-117); ANION GAP 2 MMOL/L (8-16); BILIRUBIN,TOTAL 0.5 mg/dL (0.2-1); BLOOD UREA NITROGEN 50.6 mg/dL (7-18); CALCIUM 8.4 mg/dL (8.5-10.1); CHLORIDE 97 mmol/L (98-107); CO2 > 45 mmol/L (21-32); CREATININE 1.6 mg/dL (0.55-1.3); GLUCOSE,RANDOM 105 mg/dL (74-106); MAGNESIUM 2.5 mg/dL (1.8-2.4); POTASSIUM 3.9 mmol/L (3.5-5.1); SGOT/AST 18 U/L (15-37); SGPT/ALT 20 U/L (13-61); SODIUM 144 mmol/L (136-145)
[2018-09-13] MEDS ORDERED: LEVOTHYROXINE NA 50 MCG TABLET (FP) PO SCH (07:00)
[2018-09-13] MEDS ORDERED: INSULIN (LEVEMIR) 100 UNITS/ML UNITS SQ SCH (07:00)
--- NOTE | 2018-09-13 08:42 | PN ---
Progress Note, Physician Chief Complaint: Feels better , now on 6l O2 NC with sat 93%. Awake, alert History of Present Illness: Persistent left basilar atelectasis/consolidation. CABG ASHD. DM type on Levemir/Januvia. Hypothyroidism. CRI/ckd 4. 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 Previous Thoracentesis in the past-neg for malignancy. JUAN-at nights using BIPAP. Chronic A.Fib. Combined CHF. Gout. Gouty arthritis. Previous rectal surgery for abscess, fistula at [facility]. - Current Medication List Current Medications: Active Medications Albuterol/Ipratropium (Duoneb -) 1 amp NEB Q4H [facility] Last Admin: 09/13/18 08:34 Dose: 1 amp Apixaban (Eliquis -) 2.5 mg PO BID [facility] Last Admin: 09/12/18 22:18 Dose: 2.5 mg Aspirin (Asa -) 81 mg PO DAILY [facility] Bisacodyl (Dulcolax -) 10 mg PO DAILY [facility] Chlorhexidine Gluconate (Hibiclens For Decolonization -) 1 applic TP HS [facility] Last Admin: 09/12/18 22:20 Dose: 1 applic Colchicine (Colcrys) 0.6 mg PO BID [facility] Last Admin: 09/12/18 22:17 Dose: 0.6 mg Docusate Sodium (Colace -) 100 mg PO BID [facility] Last Admin: 09/12/18 22:17 Dose: 100 mg Febuxostat (Uloric -) 40 mg PO DAILY [facility] Furosemide (Lasix Injection -) 100 mg IVPUSH BID@0600,1400 [facility] Last Admin: 09/13/18 05:37 Dose: 100 mg Insulin Aspart (Novolog Vial Sliding Scale -) 1 vial SQ Q6H [facility]; Protocol Last Admin: 09/13/18 05:37 Dose: Not Given Insulin Detemir (Levemir Vial) 30 units SQ DAILY@0700 [facility] Last Admin: 09/13/18 08:17 Dose: Not Given Levothyroxine Sodium (Synthroid -) 50 mcg PO DAILY@0700 [facility] Last Admin: 09/13/18 06:35 Dose: 50 mcg Metoprolol Succinate (Toprol Xl -) 50 mg PO BID [facility] Last Admin: 09/12/18 22:18 Dose: 50 mg Mupirocin (Bactroban Ointment (For Decolonization) -) 1 applic NS BID [facility] Stop: 09/15/18 09:59 Last Admin: 09/12/18 22:17 Dose: 1 applic Polyethylene Glycol (Miralax (For Daily Use) -) 17 gm PO DAILY [facility] Spironolactone (Aldactone -) 25 mg PO DAILY [facility] - Objective Vital Signs: Vital Signs Temperature 98.1 F 09/13/18 06:00 Pulse Rate 98 H 09/13/18 06:00 Respiratory Rate 22 H 09/13/18 06:00 Blood Pressure 144/86 09/13/18 06:00 O2 Sat by Pulse Oximetry (%) 98 09/13/18 06:15 Constitutional: Yes: Moderate Distress, Obese Eyes: Yes: Conjunctiva Clear, EOM Intact HENT: Yes: Atraumatic, Normocephalic Neck: Yes: Supple Respiratory: Yes: Regular, Cough, Diminished, On Nasal O2, Poor Air Entry, Rhonchi, SOB. No: Wheezes Gastrointestinal: Yes: Normal Bowel Sounds, Soft, Abdomen, Obese, Other (Dyer is out Urinates well) ...Rectal Exam: Yes: Deferred Breast(s): Yes: WNL Musculoskeletal: Yes: WNL Extremities: No: Cold, Cyanosis Edema: Yes Edema: LLE: 2+, RLE: 2+ Integumentary: Yes: WNL Neurological: Yes: WNL ...Motor Strength: WNL Psychiatric: Yes: WNL Labs: CBC, BMP 09/13/18 05:30 09/13/18 05:30 INR, PTT INR 1.39 (0.83-1.09) H 09/09/18 21:35 Problem List - Problems (1) Atrial fibrillation Assessment/Plan: Continue Eliquis, follow on telemetry, rate control Code(s): I48.91 - UNSPECIFIED ATRIAL FIBRILLATION Qualifiers: Atrial fibrillation type: chronic (2) CHF, acute on chronic Assessment/Plan: Continue IV Lasix 100 mg BID Continue Spironolactone. Avoid ARB/BETTY due to stage e CKD, electrolyte imbalance. OFF Dyer Strict I/O Code(s): I50.9 - HEART FAILURE, UNSPECIFIED Qualifiers: Heart failure type: combined systolic and diastolic Qualified Code(s): I50.43 - Acute on chronic combined systolic (congestive) and diastolic ( congestive) heart failure (3) CKD (chronic kidney disease) Code(s): N18.9 - CHRONIC KIDNEY DISEASE, UNSPECIFIED (4) DM type 2 (diabetes mellitus, type 2) Code(s): E11.9 - TYPE 2 DIABETES MELLITUS WITHOUT COMPLICATIONS Qualifiers: Diabetes mellitus care home insulin use: with care home use Chronic kidney disease stage: stage 4 (severe)
--- NOTE | 2018-09-13 08:53 | PN ---
Physical Exam: SUBJECTIVE: Patient seen and examined at bedside this morning. He was trialled off BiLevel ventilation on nasal canula, however did not tolerate well, with decreasing oxygen saturation. Patient remains comfortable on BiLevel ventilation. He denies acute complaints this morning. OBJECTIVE: Vital Signs Period Temp Pulse Resp BP Sys/Junior Pulse Ox Last 24 Hr 97.8 F-98.3 F 93-106 14-23 102-144/58-86 96-99 GENERAL: The patient is awake, alert, and oriented, in no acute distress. HEAD: Normocephalic, atraumatic EYES: PERRL, extraocular movements intact, sclera anicteric, conjunctiva clear. ENT: Oropharynx clear without exudates, moist mucous membranes. NECK: Supple without lymphadenopathy. Right sided internal jugular central venous catheter in place. LUNGS: Mechanical breath sounds with rhonchi auscultated bilaterally. No accessory muscle use. HEART: Irregular rate and rhythm, S1, S2 without murmur, rub or gallop. ABDOMEN: Soft, nontender. Normoactive bowel sounds. No guarding, no rebound tenderness. EXTREMITIES: 2+ radial, dorsalis pedis pulses bilaterally. Warm, well-perfused. 1+ bilateral lower extremity edema. NEUROLOGICAL: Cranial nerves II through XII grossly intact. Normal speech. SKIN: Warm, dry. Laboratory Results - last 24 hr 09/12/18 09/12/18 09/12/18 11:50 16:52 23:47 WBC RBC Hgb Hct MCV MCH MCHC RDW Plt Count MPV Sodium Potassium Chloride Carbon Dioxide Anion Gap BUN Creatinine Est GFR (CKD-EPI)AfAm Est GFR (CKD-EPI)NonAf POC Glucometer 159 187 177 Random Glucose Calcium Magnesium Total Bilirubin AST ALT Alkaline Phosphatase Total Protein Albumin 09/13/18 09/13/18 09/13/18 05:30 05:30 05:30 WBC 5.8 RBC 3.87 L Hgb 11.2 L Hct 34.9 L MCV 90.2 MCH 29.0 MCHC 32.2 RDW 19.4 H Plt Count 154 MPV 7.8 Sodium 144 Potassium 3.9 Chloride 97 L Carbon Dioxide > 45 H Anion Gap 2 L BUN 50.6 H Creatinine 1.6 H Est GFR (CKD-EPI)AfAm 44.24 Est GFR (CKD-EPI)NonAf 38.17 POC Glucometer 109 Random Glucose 105 Calcium 8.4 L Magnesium 2.5 H Total Bilirubin 0.5 AST 18 ALT 20 Alkaline Phosphatase 70 Total Protein 6.0 L Albumin 2.7 L Active Medications Generic Name Dose Route Start Last Admin Trade Name Vincenzo PRN Reason Stop Dose Admin Albuterol/Ipratropium 1 amp 09/12/18 19:30 09/13/18 08:34 Duoneb - NEB 1 amp Q4H JOE Administration Apixaban 2.5 mg 09/12/18 22:00 09/12/18 22:18 Eliquis - PO 2.5 mg BID [facility] Administration Aspirin 81 mg 09/13/18 10:00 Asa - PO DAILY [facility] Bisacodyl 10 mg 09/13/18 10:00 Dulcolax - PO DAILY [facility] Chlorhexidine Gluconate 1 applic 09/12/18 22:00 09/12/18 22:20 Hibiclens For Decolonization - TP 1 applic HS [facility] Administration Colchicine 0.6 mg 09/12/18 22:00 09/12/18 22:17 Colcrys PO 0.6 mg BID [facility] Administration Docusate Sodium 100 mg 09/12/18 22:00 09/12/18 22:17 Colace - PO 100 mg BID [facility] Administration Febuxostat 40 mg 09/13/18 10:00 Uloric - PO DAILY [facility] Furosemide 100 mg 09/13/18 06:00 09/13/18 05:37 Lasix Injection - IVPUSH 100 mg BID@0600,1400 [facility] Administration Insulin Aspart 1 vial 09/12/18 18:00 09/13/18 05:37 Novolog Vial Sliding Scale - SQ Not Given Q6H [facility] Protocol Insulin Detemir 30 units 09/13/18 07:00 09/13/18 08:17 Levemir Vial SQ Not Given DAILY@0700 [facility] Levothyroxine Sodium 50 mcg 09/13/18 07:00 09/13/18 06:35 Synthroid - PO 50 mcg DAILY@0700 [facility] Administration Metoprolol Succinate 50 mg 09/12/18 22:00 09/12/18 22:18 Toprol Xl - PO 50 mg BID [facility] Administration Mupirocin 1 applic 09/12/18 22:00 09/12/18 22:17 Bactroban Ointment (For Decolonization) - NS 09/15/18 09:59 1 applic BID JOE Administration Polyethylene Glycol 17 gm 09/13/18 10:00 Miralax (For Daily Use) - PO DAILY JOE Spironolactone 25 mg 09/13/18 10:00 Aldactone - PO DAILY JOE ASSESSMENT/PLAN: Patient is an 88 year old male with history of restrictive lung disease ( asbestosis), HFrEF (EF 45-50%), Afib (on Eliquis), CKD IV, diabetes mellitus admitted to ICU due to acute, hypoxic, hypercarbic respiratory failure. Neurological -Patient is awake, alert, oriented. No acute distress. -Monitor for signs of mental status change. Cardiovascular Afib CHF -Metoprolol 50mg PO BID -Spironolactone 25mg PO daily -Lasix 100mg IV BID -Eliquis 2.5mg PO BID -Cardiology recommendations appreciated. Pulmonary Acute hypoxic respiratory failure History of interstitial lung disease (asbestosis) -Chest radiograph shows slight improvement of congestive changes, right sided infiltrate. -Currently on BiLevel ventilation. Will attempt to wean to nasal canula, as tolerated -Duonebs 1AMP Q4 hours standing Gastrointestinal -Cholesterol, sodium restricted diet. Endocrine Hypothyroidism Levothyroxine 50mcg PO daily FEN -No IV fluids indicated -Follow CMP, replete as necessary -Cholesterol, sodium restricted diet. Prophylaxis -Eliquis 2.5mg PO BID Disposition -Patient is medically stable for transfer to Telemetry floor. Visit type - Emergency Visit Emergency Visit: Yes ED Registration Date: 09/09/18 Care time: The patient presented to the Emergency Department on the above date and was hospitalized for further evaluation of their emergent condition. - New Patient This patient is new to me today: No - Critical Care Critical Care patient: Yes Total Critical Care Time (in minutes): 35 Critical Care Statement: The care of this patient involved high complexity decision making to prevent further life threatening deterioration of the patient 's condition and/or to evaluate & treat vital organ system(s) failure or risk of failure. - Discharge Referral Referred to [facility] No
[2018-09-13] MEDS ORDERED: PT OWN MED DRAWER 7, Y5N ONE (09:31)
[2018-09-13] MEDS: APIXABAN 2.5 MG TABLET PO SCH ×2 (09:36→21:36)
[2018-09-13] MEDS: COLCHICINE 0.6 MG CAP PO SCH ×2 (09:36→21:36)
[2018-09-13] MEDS: MUPIROCIN 2% TOPICAL OINTMENT FOR DECOLONIZATION NS SCH (09:53)
[2018-09-13] MEDS ORDERED: BISACODYL 5 MG TABLET.DR (FP) PO SCH (10:00)
[2018-09-13] MEDS ORDERED: ASPIRIN 81 MG CHEWABLE TABLETS PO SCH (10:00)
[2018-09-13] MEDS ORDERED: SPIRONOLACTONE 25 MG TABLET (FP) PO SCH (10:00)
[2018-09-13] MEDS ORDERED: POLYETHYLENE GLYCOL 3350 119 GM BTL PO SCH (10:00)
[2018-09-13] MEDS ORDERED: FEBUXOSTAT 40 MG TAB PO SCH (10:00)
--- NOTE | 2018-09-13 10:48 | PN ---
Progress Note (short form) - Note Progress Note: s: no chest pain, palps, dizziness TELE: AF, rate ok, 12 bt NSVT Current Medications Albuterol/Ipratropium (Duoneb -) 1 amp NEB Q4H [facility] Last Admin: 09/13/18 08:34 Dose: 1 amp Apixaban (Eliquis -) 2.5 mg PO BID [facility] Last Admin: 09/13/18 09:36 Dose: 2.5 mg Aspirin (Asa -) 81 mg PO DAILY [facility] Last Admin: 09/13/18 09:36 Dose: 81 mg Bisacodyl (Dulcolax -) 10 mg PO DAILY [facility] Chlorhexidine Gluconate (Hibiclens For Decolonization -) 1 applic TP HS [facility] Last Admin: 09/12/18 22:20 Dose: 1 applic Colchicine (Colcrys) 0.6 mg PO BID [facility] Last Admin: 09/13/18 09:36 Dose: 0.6 mg Docusate Sodium (Colace -) 100 mg PO BID [facility] Last Admin: 09/12/18 22:17 Dose: 100 mg Febuxostat (Uloric -) 40 mg PO DAILY [facility] Last Admin: 09/13/18 09:37 Dose: 40 mg Furosemide (Lasix Injection -) 100 mg IVPUSH BID@0600,1400 [facility] Last Admin: 09/13/18 05:37 Dose: 100 mg Insulin Aspart (Novolog Vial Sliding Scale -) 1 vial SQ Q6H [facility]; Protocol Last Admin: 09/13/18 05:37 Dose: Not Given Insulin Detemir (Levemir Vial) 30 units SQ DAILY@0700 [facility] Last Admin: 09/13/18 08:17 Dose: Not Given Levothyroxine Sodium (Synthroid -) 50 mcg PO DAILY@0700 [facility] Last Admin: 09/13/18 06:35 Dose: 50 mcg Metoprolol Succinate (Toprol Xl -) 50 mg PO BID [facility] Last Admin: 09/13/18 09:36 Dose: 50 mg Mupirocin (Bactroban Ointment (For Decolonization) -) 1 applic NS BID [facility] Stop: 09/15/18 09:59 Last Admin: 09/13/18 09:53 Dose: 1 applic Polyethylene Glycol (Miralax (For Daily Use) -) 17 gm PO DAILY [facility] Spironolactone (Aldactone -) 25 mg PO DAILY [facility] Last Admin: 09/13/18 09:36 Dose: 25 mg Vital Signs Period Temp Pulse Resp BP Sys/Junior Pulse Ox Last 24 Hr 97.8 F-98.3 F 93-114 14-22 102-144/58-86 92-98 Constitutional: Yes: Obese Eyes: Yes: Conjunctiva Clear Cardiovascular: Yes: Pulse Irregular Respiratory: Yes: Rhonchi, Other (decreased breath sounds at bases). 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 Chronic AF 6.CAD s/p CABG 7. PHTN 8. CKD with baseline creatinine 2.0 REC: 1. Continue IV lasix, with daily weights, strict Is/Os and daily BMP to monitor renal fxn closely. Creat improving w/ diuresis, replete lytes to K >4.0, Mg >2.0 2. NIPPV and suppl O2. 3. Rates are currently well controlled, cont Eliquis adjusted for age and renal fx. Cont Metoprolol at home dose. 4. PHTN is chronic and due to combo of his chronic lung dz and left sided CHF, diuresis as above
--- NOTE | 2018-09-13 12:11 | PN ---
Teaching Attending Note Name of Resident: Alvaro Muñoz ATTENDING PHYSICIAN STATEMENT I saw and evaluated the patient. I reviewed the resident's note and discussed the case with the resident. I agree with the resident's findings and plan as documented. SUBJECTIVE: Pt seen and examined in the ICU. Off BiPAP, breathing better. Continues to diurese well. OBJECTIVE: Vital Signs Period Temp Pulse Resp BP Sys/Junior Pulse Ox Last 24 Hr 97.8 F-98.3 F 93-114 17-22 102-144/58-86 92-98 Intake & Output 09/10/18 09/11/18 09/12/18 09/13/18 23:59 23:59 23:59 23:59 Intake Total 770 1570 1590 100 Output Total 4400 2900 4230 Balance -3630 -1330 -2640 100 Weight 51.301 kg 113.398 kg 110 kg 107.2 kg Gen: less tachypneic Heart: RRR Lung: scattered rhonchi, wheezes Abd: soft, nontender Ext: no edema CBC, BMP 09/13/18 05:30 09/13/18 05:30 Active Medications Albuterol/Ipratropium (Duoneb -) 1 amp NEB Q4H [facility] Last Admin: 09/13/18 08:34 Dose: 1 amp Apixaban (Eliquis -) 2.5 mg PO BID [facility] Last Admin: 09/13/18 09:36 Dose: 2.5 mg Aspirin (Asa -) 81 mg PO DAILY [facility] Last Admin: 09/13/18 09:36 Dose: 81 mg Bisacodyl (Dulcolax -) 10 mg PO DAILY [facility] Chlorhexidine Gluconate (Hibiclens For Decolonization -) 1 applic TP HS [facility] Last Admin: 09/12/18 22:20 Dose: 1 applic Colchicine (Colcrys) 0.6 mg PO BID [facility] Last Admin: 09/13/18 09:36 Dose: 0.6 mg Docusate Sodium (Colace -) 100 mg PO BID [facility] Last Admin: 09/12/18 22:17 Dose: 100 mg Febuxostat (Uloric -) 40 mg PO DAILY [facility] Last Admin: 09/13/18 09:37 Dose: 40 mg Furosemide (Lasix Injection -) 100 mg IVPUSH BID@0600,1400 [facility] Last Admin: 09/13/18 05:37 Dose: 100 mg Insulin Aspart (Novolog Vial Sliding Scale -) 1 vial SQ Q6H [facility]; Protocol Last Admin: 09/13/18 11:27 Dose: 6 units Insulin Detemir (Levemir Vial) 30 units SQ DAILY@0700 [facility] Last Admin: 09/13/18 08:17 Dose: Not Given Levothyroxine Sodium (Synthroid -) 50 mcg PO DAILY@0700 [facility] Last Admin: 09/13/18 06:35 Dose: 50 mcg Metoprolol Succinate (Toprol Xl -) 50 mg PO BID [facility] Last Admin: 09/13/18 09:36 Dose: 50 mg Mupirocin (Bactroban Ointment (For Decolonization) -) 1 applic NS BID [facility] Stop: 09/15/18 09:59 Last Admin: 09/13/18 09:53 Dose: 1 applic Polyethylene Glycol (Miralax (For Daily Use) -) 17 gm PO DAILY [facility] Spironolactone (Aldactone -) 25 mg PO DAILY [facility] Last Admin: 09/13/18 09:36 Dose: 25 mg ASSESSMENT AND PLAN: Acute on Chronic Hypoxic and Hypercapneic Respiratory Failure 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 Pulmonary HTN Obstructive Sleep Apnea CAD s/p CABG Atrial Fibrillation CKD DM - continue lasix, aldactone - monitor urine output, creatinine - inhaled bronchodilators standing and PRN - O2 to keep SpO2 88-92% - BiPAP as needed to assist in work of breathing - can monitor on telemetry
[2018-09-13] MEDS: DOCUSATE SODIUM 100 MG CAPSULE (FP) PO SCH ×2 (15:02→21:36)
[2018-09-13 20:57] LABS: EPI CELLS 0.1 /HPF (0-5/HPF); HYALINE CASTS 0 /lpf (0-8); PH,URINE 7.5 (5.0-8.0); URINE APPEARANCE CLEAR; URINE BACTERIA 33.5 /hpf (NEGATIVE); URINE BILIRUBIN NEGATIVE (NEGATIVE); URINE COLOR YELLOW; URINE GLUCOSE (UA) NEGATIVE (NEGATIVE); URINE KETONE NEGATIVE (NEGATIVE); URINE LEUK ESTERASE TRACE (NEGATIVE); URINE NITRITE NEGATIVE (NEGATIVE); URINE PROTEIN NEGATIVE (NEGATIVE); URINE RBC 66 /hpf (0-4); URINE WBC 3 /hpf (0-5)
[2018-09-14] MEDS: ALBUTEROL SO4 2.5/IPRATROPIUM 0.5 INH SOL 3 ML VIAL.NEB. NEB SCH ×8 (00:05→23:40)
[2018-09-14] MEDS: FUROSEMIDE 100 MG/10 ML INJECTABLE VIAL IVPUSH SCH ×2 (05:46→14:14)
[2018-09-14] MEDS: INSULIN SLIDING SCALE (NOVOLOG) 1 VIAL SQ SCH ×3 (05:46→17:56)
[2018-09-14] MEDS: INSULIN (LEVEMIR) 100 UNITS/ML UNITS SQ SCH (07:01)
[2018-09-14] MEDS: LEVOTHYROXINE NA 50 MCG TABLET (FP) PO SCH (07:02)
[2018-09-14 07:12] LABS: HEMOGLOBIN 12.2 GM/dL (11.7-16.9); MEAN CELL VOLUME 90.5 fl (80-96); MEAN PLT VOLUME 7.8 fl (7.5-11.1); PLATELET COUNT 176 K/MM3 (134-434); RDW 19.1 % (11.9-15.9); WHITE BLOOD COUNT 6.7 K/mm3 (4.0-10.0)
[2018-09-14 07:43] LABS: BLOOD UREA NITROGEN 54.1 mg/dL (7-18); CALCIUM 8.6 mg/dL (8.5-10.1); CREATININE 1.9 mg/dL (0.55-1.3); POTASSIUM 3.8 mmol/L (3.5-5.1)
--- NOTE | 2018-09-14 08:28 | PN ---
Progress Note, Physician Chief Complaint: Patient was transferred from the ICU to the floor telemetry. SOB, ON NIPPV. Mild respiratory distress/. History of Present Illness: Persistent left basilar atelectasis/consolidation. CABG ASHD. DM type on Levemir/Januvia. Hypothyroidism. CRI/ckd 4. 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 Previous Thoracentesis in the past-neg for malignancy. JUAN-at nights using BIPAP. Chronic A.Fib. Combined CHF. Gout. Gouty arthritis. Previous rectal surgery for abscess, fistula at [facility]. - Current Medication List Current Medications: Active Medications Albuterol/Ipratropium (Duoneb -) [address] [facility] Last Admin: 09/14/18 08:10 Dose: 1 amp Apixaban (Eliquis -) 2.[address] [facility] Last Admin: 09/13/18 21:36 Dose: 2.5 mg Aspirin (Asa -) [address] [facility] Bisacodyl (Dulcolax -) [address] [facility] Colchicine (Colcrys) 0.[address] [facility] Last Admin: 09/13/18 21:36 Dose: 0.6 mg Docusate Sodium (Colace -) [address] [facility] Last Admin: 09/13/18 21:36 Dose: 100 mg Febuxostat (Uloric -) [address] [facility] Furosemide (Lasix Injection -) 100 mg IVPUSH BID@0600,1400 [facility] Last Admin: 09/14/18 05:46 Dose: 100 mg Insulin Aspart (Novolog Vial Sliding Scale -) [address] [facility]; Protocol Last Admin: 09/14/18 05:46 Dose: Not Given Insulin Detemir (Levemir Vial) 30 units SQ DAILY@0700 [facility] Last Admin: 09/14/18 07:01 Dose: 30 unit Levothyroxine Sodium (Synthroid -) 50 mcg PO DAILY@0700 [facility] Last Admin: 09/14/18 07:02 Dose: 50 mcg Metoprolol Succinate (Toprol Xl -) [address] [facility] Last Admin: 09/13/18 21:36 Dose: 50 mg Polyethylene Glycol (Miralax (For Daily Use) -) [address] [facility] Spironolactone (Aldactone -) [address] [facility] - Objective Vital Signs: Vital Signs Temperature 97.2 F L 09/14/18 05:09 Pulse Rate 99 H 09/14/18 05:09 Respiratory Rate 20 09/14/18 05:09 Blood Pressure 104/57 L 09/14/18 05:09 O2 Sat by Pulse Oximetry (%) 94 L 09/14/18 08:10 Constitutional: Yes: Calm, Mild Distress, Obese Eyes: Yes: Conjunctiva Clear, EOM Intact HENT: Yes: Atraumatic, Normocephalic, Hoarseness. No: Drooling, Thrush Neck: Yes: Supple, Trachea Midline, Decreased ROM. No: Lymphadenopathy, Tenderness, Thyromegaly Cardiovascular: Yes: Pulse Irregular, Murmur, S1, S2. No: Bruit, JVD Respiratory: Yes: Cough, Diminished, Dullness (B/B), On BiPap, Poor Air Entry, SOB, SOB on Exertion Gastrointestinal: Yes: Normal Bowel Sounds, Soft, Abdomen, Obese. No: Ascites ...Rectal Exam: Yes: Deferred Genitourinary: No: Anuria, CVA Tenderness - Left, CVA Tenderness - Right, [place] Present Breast(s): Yes: WNL Musculoskeletal: No: Back Pain, Joint Stiffness Extremities: No: Amputation, Calf Tenderness, Cold, Cyanosis Edema: LLE: 1+, RLE: 1+ Peripheral Pulses WNL: No Integumentary: Yes: WNL Neurological: Yes: WNL, Alert, Oriented, Other ([place] PASS) ...Motor Strength: WNL Psychiatric: Yes: WNL Labs: CBC, BMP 09/14/18 06:45 INR, PTT INR 1.39 (0.83-1.09) H 09/09/18 21:35 Problem List - Problems (1) Atrial fibrillation Assessment/Plan: Continue Eliquis, follow on telemetry, rate control Code(s): I48.91 - UNSPECIFIED ATRIAL FIBRILLATION Qualifiers: Atrial fibrillation type: chronic (2) CHF, acute on chronic Assessment/Plan: Continue IV Lasix 100 mg BID Continue Spironolactone. Avoid ARB/BETTY due to stage e CKD, electrolyte imbalance. OFF [place] Strict I/O Code(s): I50.9 - HEART FAILURE, UNSPECIFIED Qualifiers: Heart failure type: combined systolic and diastolic Qualified Code(s): I50.43 - Acute on chronic combined systolic (congestive) and diastolic ( congestive) heart failure (3) CKD (chronic kidney disease) Assessment/Plan: Stable BUN/Creat Follow BMP Code(s): N18.9 - CHRONIC KIDNEY DISEASE, UNSPECIFIED (4) DM type 2 (diabetes mellitus, type 2) Assessment/Plan: Continue BGM Insulin dose in the hospital adjusted for decreased PO intake. Code(s): E11.9 - TYPE 2 DIABETES MELLITUS WITHOUT COMPLICATIONS Qualifiers: Diabetes mellitus long wall mining machine helper insulin use: with care home use Chronic kidney disease stage: stage 4 (severe)
[2018-09-14] MEDS ORDERED: SPIRONOLACTONE 25 MG TABLET (FP) PO SCH (10:00)
--- NOTE | 2018-09-14 10:39 | PN ---
Progress Note (short form) - Note Progress Note: s: no chest pain, palps, dizziness; sob better TELE: AF, rate 110s Current Medications Generic Name Dose Route Start Last Admin Trade Name Vincenzo PRN Reason Stop Dose Admin Albuterol/Ipratropium 1 amp 09/13/18 19:30 09/14/18 08:10 Duoneb - NEB 1 amp Q4H JOE Administration Apixaban 2.5 mg 09/13/18 22:00 09/13/18 21:36 Eliquis - PO 2.5 mg BID JOE Administration Aspirin 81 mg 09/14/18 10:00 Asa - PO DAILY [facility] Bisacodyl 10 mg 09/14/18 10:00 Dulcolax - PO DAILY [facility] Colchicine 0.6 mg 09/13/18 22:00 09/13/18 21:36 Colcrys PO 0.6 mg BID [facility] Administration Docusate Sodium 100 mg 09/13/18 22:00 09/13/18 21:36 Colace - PO 100 mg BID [facility] Administration Febuxostat 40 mg 09/14/18 10:00 Uloric - PO DAILY [facility] Furosemide 100 mg 09/14/18 06:00 09/14/18 05:46 Lasix Injection - IVPUSH 100 mg BID@0600,1400 [facility] Administration Insulin Aspart 1 vial 09/14/18 00:00 09/14/18 05:46 Novolog Vial Sliding Scale - SQ Not Given Q6H [facility] Protocol Insulin Detemir 30 units 09/14/18 07:00 09/14/18 07:01 Levemir Vial SQ 30 unit DAILY@0700 [facility] Administration Levothyroxine Sodium 50 mcg 09/14/18 07:00 09/14/18 07:02 Synthroid - PO 50 mcg DAILY@0700 [facility] Administration Magnesium Hydroxide 30 ml 09/14/18 08:30 Milk Of Magnesia - PO DAILY [facility] Metoprolol Succinate 50 mg 09/13/18 22:00 09/13/18 21:36 Toprol Xl - PO 50 mg BID [facility] Administration Polyethylene Glycol 17 gm 09/14/18 10:00 Miralax (For Daily Use) - PO DAILY [facility] Spironolactone 25 mg 09/14/18 10:00 Aldactone - PO DAILY [facility] Vital Signs Period Temp Pulse Resp BP Sys/Junior Pulse Ox Last 24 Hr 97.1 F-98.8 F 98-114 18-22 99-127/49-83 93-99 Constitutional: Yes: Obese Eyes: Yes: Conjunctiva Clear Cardiovascular: Yes: Pulse Irregular Respiratory: Yes: Rhonchi, Other (decreased breath sounds at bases). 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 Chronic AF 6.CAD s/p CABG 7. PHTN 8. CKD with baseline creatinine 2.0 REC: 1. Continue IV lasix, with daily weights, strict Is/Os and daily BMP to monitor renal fxn closely. Creat stable, wt down w/ diuresis, replete lytes to K >4.0, Mg >2.0 2. NIPPV and suppl O2. 3. Cont Eliquis adjusted for age and renal fx. Cont Metoprolol at home dose. 4. PHTN is chronic and due to combo of his chronic lung dz and left sided CHF, diuresis as above
[2018-09-14] MEDS ORDERED: PT OWN MED DRAWER 7, Y5N ONE ×2 (10:59→19:30)
[2018-09-14] MEDS: ASPIRIN 81 MG CHEWABLE TABLETS PO SCH (11:10)
[2018-09-14] MEDS: BISACODYL 5 MG TABLET.DR (FP) PO SCH (11:10)
[2018-09-14] MEDS: APIXABAN 2.5 MG TABLET PO SCH ×2 (11:10→21:58)
[2018-09-14] MEDS: DOCUSATE SODIUM 100 MG CAPSULE (FP) PO SCH ×2 (11:10→21:58)
[2018-09-14] MEDS: POLYETHYLENE GLYCOL 3350 119 GM BTL PO SCH (11:11)
[2018-09-14] MEDS: FEBUXOSTAT 40 MG TAB PO SCH (11:11)
[2018-09-14] MEDS: COLCHICINE 0.6 MG CAP PO SCH ×2 (11:11→21:58)
[2018-09-14] MEDS: MAGNESIUM HYDROX 2400MG/30ML ORAL SUSPENSION 30 ML CUP PO SCH (11:11)
--- NOTE | 2018-09-14 11:32 | PN ---
Progress Note (short form) - Note Progress Note: Patient seen and examined Cardiac Telemetry unit. Awake on NIPPV support. OBJECTIVE: Intake & Output 09/11/18 09/12/18 09/13/18 09/14/18 23:59 23:59 23:59 23:59 Intake Total 1570 1590 570 860 Output Total 2900 4230 150 550 Balance -1330 -2640 420 310 Weight 250 lb 242 lb 8.136 oz 236 lb 5.369 oz 227 lb Last Vital Signs Temp Pulse Resp BP Pulse Ox 97.7 F 98 H 22 H 120/70 94 L 09/14/18 08:59 09/14/18 08:59 09/14/18 08:59 09/14/18 08:59 09/14/18 08:10 Active Medications Albuterol/Ipratropium (Duoneb -) 1 amp NEB Q4H [facility] Last Admin: 09/14/18 08:10 Dose: 1 amp Apixaban (Eliquis -) 2.5 mg PO BID [facility] Last Admin: 09/14/18 11:10 Dose: 2.5 mg Aspirin (Asa -) 81 mg PO DAILY [facility] Last Admin: 09/14/18 11:10 Dose: 81 mg Bisacodyl (Dulcolax -) 10 mg PO DAILY [facility] Last Admin: 09/14/18 11:10 Dose: 10 mg Colchicine (Colcrys) 0.6 mg PO BID [facility] Last Admin: 09/14/18 11:11 Dose: 0.6 mg Docusate Sodium (Colace -) 100 mg PO BID [facility] Last Admin: 09/14/18 11:10 Dose: 100 mg Febuxostat (Uloric -) 40 mg PO DAILY [facility] Last Admin: 09/14/18 11:11 Dose: 40 mg Furosemide (Lasix Injection -) 100 mg IVPUSH BID@0600,1400 [facility] Last Admin: 09/14/18 05:46 Dose: 100 mg Insulin Aspart (Novolog Vial Sliding Scale -) 1 vial SQ Q6H [facility]; Protocol Last Admin: 09/14/18 05:46 Dose: Not Given Insulin Detemir (Levemir Vial) 30 units SQ DAILY@0700 [facility] Last Admin: 09/14/18 07:01 Dose: 30 unit Levothyroxine Sodium (Synthroid -) 50 mcg PO DAILY@0700 [facility] Last Admin: 09/14/18 07:02 Dose: 50 mcg Magnesium Hydroxide (Milk Of Magnesia -) 30 ml PO DAILY [facility] Last Admin: 09/14/18 11:11 Dose: 30 ml Metoprolol Succinate (Toprol Xl -) 50 mg PO BID [facility] Last Admin: 09/14/18 11:09 Dose: 50 mg Polyethylene Glycol (Miralax (For Daily Use) -) 17 gm PO DAILY [facility] Last Admin: 09/14/18 11:11 Dose: 17 g Spironolactone (Aldactone -) 25 mg PO DAILY [facility] Last Admin: 09/14/18 11:10 Dose: 25 mg Gen: Awake on NIPPV support Heart: RRR Lung: scattered rhonchi and expiratory wheezes Abd: soft, nontender Ext: no edema VACCINE CUSTOMER REPRESENTATIVE: non-focal Laboratory Results - last 24 hr 09/13/18 09/13/18 09/13/18 17:25 19:00 23:02 WBC RBC Hgb Hct MCV MCH MCHC RDW Plt Count MPV Sodium Potassium Chloride Carbon Dioxide Anion Gap BUN Creatinine Est GFR (CKD-EPI)AfAm Est GFR (CKD-EPI)NonAf POC Glucometer 243 164 Random Glucose Calcium Urine Color Yellow Urine Appearance Clear Urine pH 7.5 Ur Specific [place] 1.009 L Urine Protein Negative Urine Glucose (UA) Negative Urine Ketones Negative Urine Blood 2+ H Urine Nitrite Negative Urine Bilirubin Negative Urine Urobilinogen 1.0 Ur Leukocyte Esterase Trace Urine WBC (Auto) 3 Urine RBC (Auto) 66 Urine Casts (Auto) 0 U Pathogenic Cast Auto No Result Required. U Epithel Cells (Auto) 0.1 Urine Bacteria (Auto) 33.5 09/14/18 09/14/18 09/14/18 05:11 06:45 06:45 WBC 6.7 RBC 4.20 Hgb 12.2 Hct 38.0 MCV 90.5 MCH 29.0 MCHC 32.0 RDW 19.1 H Plt Count 176 MPV 7.8 Sodium 141 Potassium 3.8 Chloride 94 L Carbon Dioxide 42 H Anion Gap 5 L BUN 54.1 H Creatinine 1.9 H Est GFR (CKD-EPI)AfAm 35.94 Est GFR (CKD-EPI)NonAf 31.01 POC Glucometer 121 Random Glucose 147 H Calcium 8.6 Urine Color Urine Appearance Urine pH Ur Specific [place] Urine Protein Urine Glucose (UA) Urine Ketones Urine Blood Urine Nitrite Urine Bilirubin Urine Urobilinogen Ur Leukocyte Esterase Urine WBC (Auto) Urine RBC (Auto) Urine Casts (Auto) U Pathogenic Cast Auto U Epithel Cells (Auto) Urine Bacteria (Auto) ASSESSMENT AND PLAN: Acute on Chronic Hypoxic and Hypercapneic Respiratory Failure 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 Pulmonary HTN Obstructive Sleep Apnea CAD s/p CABG Atrial Fibrillation CKD DM - NIPPV support as needed : can intermittently try VM O2 as tolerated - continue lasix, aldactone - monitor urine output, creatinine - inhaled bronchodilators standing and PRN - O2 to keep SpO2 88-92% - Cardiac Telemetry monitoring Dr Martinez Problem List - Problems (1) Atrial fibrillation Code(s): I48.91 - UNSPECIFIED ATRIAL FIBRILLATION Qualifiers: Atrial fibrillation type: chronic Qualified Code(s): I48.2 - Chronic atrial fibrillation (2) CHF, acute on chronic Code(s): I50.9 - HEART FAILURE, UNSPECIFIED Qualifiers: Heart failure type: combined systolic and diastolic Qualified Code(s): I50.43 - Acute on chronic combined systolic (congestive) and diastolic ( congestive) heart failure (3) CKD (chronic kidney disease) Code(s): N18.9 - CHRONIC KIDNEY DISEASE, UNSPECIFIED (4) DM type 2 (diabetes mellitus, type 2) Code(s): E11.9 - TYPE 2 DIABETES MELLITUS WITHOUT COMPLICATIONS Qualifiers: Diabetes mellitus correction insulin use: with correction use Chronic kidney disease stage: stage 4 (severe) (5) ASHD (arteriosclerotic heart disease) Code(s): I25.10 - ATHSCL HEART DISEASE OF [place] CORONARY ARTERY W/O ANG PCTRS (6) Acute on chronic diastolic CHF (congestive heart failure) Code(s): I50.33 - ACUTE ON CHRONIC DIASTOLIC (CONGESTIVE) HEART FAILURE (7) Acute on chronic respiratory failure with hypoxia and hypercapnia Code(s): J96.21 - ACUTE AND CHRONIC RESPIRATORY FAILURE WITH HYPOXIA; J96.22 - ACUTE AND CHRONIC RESPIRATORY FAILURE WITH HYPERCAPNIA (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 - OTHER SPECIFIED PLEURAL CONDITIONS (9) CAD (coronary artery disease) Code(s): I25.10 - ATHSCL HEART DISEASE OF [place] CORONARY ARTERY W/O ANG PCTRS Qualifiers: Coronary Disease-Associated Artery/Lesion type: bypass graft, autologous artery Associated angina: without angina Qualified Code(s): I25.810 - Atherosclerosis of coronary artery bypass graft(s) without angina pectoris (10) HTN (hypertension) Code(s): I10 - ESSENTIAL (PRIMARY) HYPERTENSION (11) Hypoxemia Code(s): R09.02 - HYPOXEMIA (12) Pulmonary hypertension Code(s): I27.20 - PULMONARY HYPERTENSION, UNSPECIFIED (13) S/P CABG (coronary artery bypass graft) Code(s): Z95.1 - PRESENCE OF AORTOCORONARY BYPASS GRAFT (14) Sleep apnea Code(s): G47.30 - SLEEP APNEA, UNSPECIFIED Qualifiers: Sleep apnea type: unspecified type Qualified Code(s): G47.30 - Sleep apnea , unspecified
[2018-09-14] MEDS ORDERED: INSULIN SLIDING SCALE (NOVOLOG) 1 VIAL SQ ONE (19:30)
[2018-09-15] MEDS: INSULIN SLIDING SCALE (NOVOLOG) 1 VIAL SQ SCH ×5 (00:40→23:41)
[2018-09-15] MEDS: ALBUTEROL SO4 2.5/IPRATROPIUM 0.5 INH SOL 3 ML VIAL.NEB. NEB SCH ×5 (04:27→20:31)
[2018-09-15] MEDS: LEVOTHYROXINE NA 50 MCG TABLET (FP) PO SCH (06:08)
[2018-09-15] MEDS: FUROSEMIDE 100 MG/10 ML INJECTABLE VIAL IVPUSH SCH ×2 (06:09→15:25)
[2018-09-15 07:49] LABS: ANION GAP 2 MMOL/L (8-16); BLOOD UREA NITROGEN 57.5 mg/dL (7-18); CALCIUM 8.4 mg/dL (8.5-10.1); CHLORIDE 94 mmol/L (98-107); CO2 > 45 mmol/L (21-32); CREATININE 1.8 mg/dL (0.55-1.3); GLUCOSE,RANDOM 111 mg/dL (74-106); MAGNESIUM 2.7 mg/dL (1.8-2.4); POTASSIUM 3.9 mmol/L (3.5-5.1); SODIUM 141 mmol/L (136-145)
--- NOTE | 2018-09-15 08:45 | PN ---
Progress Note, Physician Chief Complaint: no new complaints TELE: AF < 100bpm, average History of Present Illness: weight is down - Current Medication List Current Medications: Active Medications Albuterol/Ipratropium (Duoneb -) 1 amp NEB Q4H [facility] Last Admin: 09/15/18 04:27 Dose: 1 amp Apixaban (Eliquis -) 2.5 mg PO BID [facility] Last Admin: 09/14/18 21:58 Dose: 2.5 mg Aspirin (Asa -) 81 mg PO DAILY [facility] Last Admin: 09/14/18 11:10 Dose: 81 mg Bisacodyl (Dulcolax -) 10 mg PO DAILY [facility] Last Admin: 09/14/18 11:10 Dose: 10 mg Colchicine (Colcrys) 0.6 mg PO BID [facility] Last Admin: 09/14/18 21:58 Dose: 0.6 mg Docusate Sodium (Colace -) 100 mg PO BID [facility] Last Admin: 09/14/18 21:58 Dose: 100 mg Febuxostat (Uloric -) 40 mg PO DAILY [facility] Last Admin: 09/14/18 11:11 Dose: 40 mg Furosemide (Lasix Injection -) 100 mg IVPUSH BID@0600,1400 [facility] Last Admin: 09/15/18 06:09 Dose: 100 mg Insulin Aspart (Novolog Vial Sliding Scale -) 1 vial SQ Q6H [facility]; Protocol Last Admin: 09/15/18 06:10 Dose: Not Given Insulin Detemir (Levemir Vial) 30 units SQ DAILY@0700 [facility] Last Admin: 09/14/18 07:01 Dose: 30 unit Levothyroxine Sodium (Synthroid -) 50 mcg PO DAILY@0700 [facility] Last Admin: 09/15/18 06:08 Dose: 50 mcg Magnesium Hydroxide (Milk Of Magnesia -) 30 ml PO DAILY [facility] Last Admin: 09/14/18 11:11 Dose: 30 ml Metoprolol Succinate (Toprol Xl -) 50 mg PO BID [facility] Last Admin: 09/14/18 21:58 Dose: 50 mg Polyethylene Glycol (Miralax (For Daily Use) -) 17 gm PO DAILY [facility] Last Admin: 09/14/18 11:11 Dose: 17 g Spironolactone (Aldactone -) 25 mg PO DAILY [facility] Last Admin: 09/14/18 11:10 Dose: 25 mg - Objective Vital Signs: Vital Signs Temperature 98.0 F 09/15/18 06:00 Pulse Rate 81 09/15/18 06:00 Respiratory Rate 18 09/15/18 06:00 Blood Pressure 126/72 09/15/18 06:00 O2 Sat by Pulse Oximetry (%) 97 09/15/18 06:20 Constitutional: Yes: Calm Cardiovascular: Yes: Pulse Irregular Respiratory: Yes: Other (rhonchi and decreased breath sounds, no rales.) Gastrointestinal: Yes: Soft, Abdomen, Obese Edema: LLE: 1+, RLE: 1+ Neurological: Yes: Alert Labs: CBC, BMP 09/14/18 06:45 09/15/18 05:10 INR, PTT INR 1.39 (0.83-1.09) H 09/09/18 21:35 - ....Imaging EKG: Image Reviewed Assessment/Plan Assessment/Plan Echo 04/2018: EF 45%, mod MR/TR, at least mild , moderate to severe PHTN Nuclear stress 2017: Pharm: small inferolat infarct, mild arlin-infarct ischemia , Overall EF 35-40% IMP: 1.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 Chronic AF 6.CAD s/p CABG 7. PHTN 8. CKD with baseline creatinine 2.0 REC: 1. Continue IV lasix, with daily weights, strict Is/Os and daily BMP. Renal function improving. Weight down w/ diuresis, replete lytes to K >4.0, Mg >2.0 2. NIPPV and suppl O2. 3. Cont Eliquis adjusted for age and renal fx. Cont Metoprolol at home dose. 4. PHTN is chronic and due to combo of his chronic lung dz and left sided CHF, diuresis as above
--- NOTE | 2018-09-15 09:40 | PN ---
Progress Note, Physician Chief Complaint: C/O sore throat, cough, wheezing. Painh in the feet-gouty arthritis exacerbation. History of Present Illness: Persistent left basilar atelectasis/consolidation. CABG ASHD. DM type on Levemir/Januvia. Hypothyroidism. CRI/ckd 4. 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 Previous Thoracentesis in the past-neg for malignancy. JUAN-at nights using BIPAP. Chronic A.Fib. Combined CHF. Gout. Gouty arthritis. Previous rectal surgery for abscess, fistula at [facility]. - Current Medication List Current Medications: Active Medications Albuterol/Ipratropium (Duoneb -) 1 amp NEB Q4H [facility] Last Admin: 09/15/18 08:45 Dose: Not Given Apixaban (Eliquis -) 2.5 mg PO BID [facility] Last Admin: 09/14/18 21:58 Dose: 2.5 mg Aspirin (Asa -) 81 mg PO DAILY [facility] Last Admin: 09/14/18 11:10 Dose: 81 mg Bisacodyl (Dulcolax -) 10 mg PO DAILY [facility] Last Admin: 09/14/18 11:10 Dose: 10 mg Clotrimazole (Mycelex Akilah's -) 10 mg PO 5XD [facility] Colchicine (Colcrys) 0.6 mg PO BID [facility] Last Admin: 09/14/18 21:58 Dose: 0.6 mg Docusate Sodium (Colace -) 100 mg PO BID [facility] Last Admin: 09/14/18 21:58 Dose: 100 mg Febuxostat (Uloric -) 40 mg PO DAILY [facility] Last Admin: 09/14/18 11:11 Dose: 40 mg Furosemide (Lasix Injection -) 100 mg IVPUSH BID@0600,1400 [facility] Last Admin: 09/15/18 06:09 Dose: 100 mg Insulin Aspart (Novolog Vial Sliding Scale -) 1 vial SQ Q6H [facility]; Protocol Last Admin: 09/15/18 06:10 Dose: Not Given Insulin Detemir (Levemir Vial) 30 units SQ DAILY@0700 [facility] Last Admin: 09/14/18 07:01 Dose: 30 unit Levothyroxine Sodium (Synthroid -) 50 mcg PO DAILY@0700 [facility] Last Admin: 09/15/18 06:08 Dose: 50 mcg Magnesium Hydroxide (Milk Of Magnesia -) 30 ml PO DAILY [facility] Last Admin: 09/14/18 11:11 Dose: 30 ml Methylprednisolone Sodium Succinate (Solu-Medrol -) 40 mg IVPUSH DAILY [facility] Stop: 09/18/18 23:59 Metoprolol Succinate (Toprol Xl -) 50 mg PO BID [facility] Last Admin: 09/14/18 21:58 Dose: 50 mg Polyethylene Glycol (Miralax (For Daily Use) -) 17 gm PO DAILY [facility] Last Admin: 09/14/18 11:11 Dose: 17 g Spironolactone (Aldactone -) 25 mg PO DAILY [facility] Last Admin: 09/14/18 11:10 Dose: 25 mg - Objective Vital Signs: Vital Signs Temperature 98.0 F 09/15/18 06:00 Pulse Rate 81 09/15/18 06:00 Respiratory Rate 18 09/15/18 06:00 Blood Pressure 126/72 09/15/18 06:00 O2 Sat by Pulse Oximetry (%) 97 09/15/18 06:20 Constitutional: Yes: Anxious, Moderate Distress, Obese Eyes: Yes: Conjunctiva Clear, EOM Intact HENT: Yes: Pharyngeal Erythema, Thrush (few elements) Neck: Yes: Supple, Trachea Midline, Decreased ROM. No: Lymphadenopathy, Tenderness, Thyromegaly Cardiovascular: Yes: Pulse Irregular, S1, S2 Respiratory: Yes: Cough, Diminished, Poor Air Entry, Rhonchi, SOB, Wheezes Gastrointestinal: Yes: Normal Bowel Sounds, Soft, Abdomen, Obese ...Rectal Exam: Yes: Deferred Genitourinary: No: Anuria Breast(s): Yes: WNL Musculoskeletal: Yes: WNL Extremities: No: Amputation, Calf Tenderness Edema: Yes Edema: LLE: Trace, RLE: Trace Integumentary: No: Body Piercing Neurological: Yes: Alert, Oriented. No: Aphasia, Dysarthria ...Motor Strength: WNL Psychiatric: Yes: WNL Labs: CBC, BMP 09/14/18 06:45 09/15/18 05:10 INR, PTT INR 1.39 (0.83-1.09) H 09/09/18 21:35 Problem List - Problems (1) Atrial fibrillation Assessment/Plan: Continue Eliquis, follow on telemetry, rate control Code(s): I48.91 - UNSPECIFIED ATRIAL FIBRILLATION Qualifiers: Atrial fibrillation type: chronic Qualified Code(s): I48.2 - Chronic atrial fibrillation (2) CHF, acute on chronic Assessment/Plan: Continue IV Lasix 100 mg BID Increase Spironolactone 25 mg BID Avoid ARB/BETTY due to stage e CKD, electrolyte imbalance. OFF [place] Strict I/O Code(s): I50.9 - HEART FAILURE, UNSPECIFIED Qualifiers: Heart failure type: combined systolic and diastolic Qualified Code(s): I50.43 - Acute on chronic combined systolic (congestive) and diastolic ( congestive) heart failure (3) CKD (chronic kidney disease) Assessment/Plan: Stable BUN/Creat Follow BMP Code(s): N18.9 - CHRONIC KIDNEY DISEASE, UNSPECIFIED (4) DM type 2 (diabetes mellitus, type 2) Assessment/Plan: Continue BGM Insulin dose in the hospital adjusted for decreased PO intake. Code(s): E11.9 - TYPE 2 DIABETES MELLITUS WITHOUT COMPLICATIONS Qualifiers: Diabetes mellitus snf insulin use: with watermelon inspector use Chronic kidney disease stage: stage 4 (severe) (5) Gouty arthritis of both feet Assessment/Plan: IV Solu-medrol 40 mg QD x3 days Continue Colchicine 0.6 mg BID Uloric 40 mg Code(s): M10.9 - GOUT, UNSPECIFIED (6) Thrush, oral Assessment/Plan: Mycelex troches PO Code(s): B37.0 - CANDIDAL STOMATITIS (7) Respiratory failure with hypercapnia Assessment/Plan: Nebs RTC NIPPV and BIPAP/O2 NC IV Lasix Code(s): J96.92 - RESPIRATORY FAILURE, UNSPECIFIED WITH HYPERCAPNIA Qualifiers: Chronicity: acute on chronic Qualified Code(s): J96.22 - Acute and chronic respiratory failure with hypercapnia
[2018-09-15] MEDS ORDERED: PT OWN MED DRAWER 7, Y5N ONE ×6 (09:58→21:44)
[2018-09-15] MEDS: COLCHICINE 0.6 MG CAP PO SCH ×2 (10:06→21:44)
[2018-09-15] MEDS: APIXABAN 2.5 MG TABLET PO SCH ×2 (10:07→21:44)
[2018-09-15] MEDS: SPIRONOLACTONE 25 MG TABLET (FP) PO SCH ×2 (10:07→21:44)
[2018-09-15] MEDS: BISACODYL 5 MG TABLET.DR (FP) PO SCH (10:07)
[2018-09-15] MEDS: DOCUSATE SODIUM 100 MG CAPSULE (FP) PO SCH ×2 (10:07→21:44)
[2018-09-15] MEDS: methylPREDNISolone NA SUCC 40 MG/1 ML VIAL IVPUSH SCH (10:08)
[2018-09-15] MEDS: ASPIRIN 81 MG CHEWABLE TABLETS PO SCH (10:08)
[2018-09-15] MEDS: FEBUXOSTAT 40 MG TAB PO SCH (10:08)
[2018-09-15] MEDS: POLYETHYLENE GLYCOL 3350 119 GM BTL PO SCH (10:12)
[2018-09-15] MEDS: MAGNESIUM HYDROX 2400MG/30ML ORAL SUSPENSION 30 ML CUP PO SCH (10:15)
[2018-09-15] MEDS: INSULIN (LEVEMIR) 100 UNITS/ML UNITS SQ SCH (10:17)
[2018-09-15] MEDS: CLOTRIMAZOLE 10 MG TROCHE (FP) PO SCH ×4 (12:49→21:45)
--- NOTE | 2018-09-15 13:09 | PN ---
Progress Note, Physician History of Present Illness: pulmonary alert,still c/o sob ,cough,-cp - Current Medication List Current Medications: Active Medications Albuterol/Ipratropium (Duoneb -) 1 amp NEB Q4H [facility] Last Admin: 09/15/18 12:00 Dose: 1 amp Apixaban (Eliquis -) 2.5 mg PO BID [facility] Last Admin: 09/15/18 10:07 Dose: 2.5 mg Aspirin (Asa -) 81 mg PO DAILY [facility] Last Admin: 09/15/18 10:08 Dose: 81 mg Bisacodyl (Dulcolax -) 10 mg PO DAILY [facility] Last Admin: 09/15/18 10:07 Dose: 10 mg Clotrimazole (Mycelex Akilah's -) 10 mg PO 5XD [facility] Last Admin: 09/15/18 12:49 Dose: Not Given Colchicine (Colcrys) 0.6 mg PO BID [facility] Last Admin: 09/15/18 10:06 Dose: 0.6 mg Docusate Sodium (Colace -) 100 mg PO BID [facility] Last Admin: 09/15/18 10:07 Dose: 100 mg Febuxostat (Uloric -) 40 mg PO DAILY [facility] Last Admin: 09/15/18 10:08 Dose: 40 mg Furosemide (Lasix Injection -) 100 mg IVPUSH BID@0600,1400 [facility] Last Admin: 09/15/18 06:09 Dose: 100 mg Insulin Aspart (Novolog Vial Sliding Scale -) 1 vial SQ Q6H [facility]; Protocol Last Admin: 09/15/18 12:23 Dose: 6 unit Insulin Detemir (Levemir Vial) 30 units SQ DAILY@0700 [facility] Last Admin: 09/15/18 10:17 Dose: 30 units Levothyroxine Sodium (Synthroid -) 50 mcg PO DAILY@0700 [facility] Last Admin: 09/15/18 06:08 Dose: 50 mcg Magnesium Hydroxide (Milk Of Magnesia -) 30 ml PO DAILY [facility] Last Admin: 09/15/18 10:15 Dose: Not Given Methylprednisolone Sodium Succinate (Solu-Medrol -) 40 mg IVPUSH DAILY [facility] Stop: 09/18/18 23:59 Last Admin: 09/15/18 10:08 Dose: 40 mg Metoprolol Succinate (Toprol Xl -) 50 mg PO BID [facility] Last Admin: 09/15/18 11:00 Dose: 50 mg Polyethylene Glycol (Miralax (For Daily Use) -) 17 gm PO DAILY [facility] Last Admin: 09/15/18 10:12 Dose: 17 gm Spironolactone (Aldactone -) 25 mg PO BID [facility] Last Admin: 09/15/18 10:07 Dose: 25 mg - Objective Vital Signs: Vital Signs Temperature 98.7 F 09/15/18 10:00 Pulse Rate 85 09/15/18 10:00 Respiratory Rate 18 09/15/18 10:00 Blood Pressure 107/65 09/15/18 10:00 O2 Sat by Pulse Oximetry (%) 97 09/15/18 06:20 Constitutional: Yes: Well Nourished, Calm Eyes: Yes: WNL HENT: Yes: WNL Neck: Yes: WNL Cardiovascular: Yes: Pulse Irregular, S1, S2 Respiratory: Yes: Wheezes Gastrointestinal: Yes: Normal Bowel Sounds, Soft Extremities: Yes: WNL Edema: Yes Labs: CBC, BMP 09/14/18 06:45 09/15/18 05:10 INR, PTT INR 1.39 (0.83-1.09) H 09/09/18 21:35 Assessment/Plan ASSESSMENT AND PLAN: Acute on Chronic Hypoxic and Hypercapneic Respiratory Failure 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 Pulmonary HTN Obstructive Sleep Apnea CAD s/p CABG Atrial Fibrillation CKD DM - NIPPV support as needed - nasal O2 tolerated - lasix, aldactone, medrol - monitor urine output, creatinine - inhaled bronchodilators standing and PRN - O2 to keep SpO2 88-92% DR HERNANDEZ Problem List - Problems (1) Atrial fibrillation Code(s): I48.91 - UNSPECIFIED ATRIAL FIBRILLATION Qualifiers: Atrial fibrillation type: chronic Qualified Code(s): I48.2 - Chronic atrial fibrillation (2) CHF, acute on chronic Code(s): I50.9 - HEART FAILURE, UNSPECIFIED Qualifiers: Heart failure type: combined systolic and diastolic Qualified Code(s): I50.43 - Acute on chronic combined systolic (congestive) and diastolic ( congestive) heart failure (3) CKD (chronic kidney disease) Code(s): N18.9 - CHRONIC KIDNEY DISEASE, UNSPECIFIED (4) DM type 2 (diabetes mellitus, type 2) Code(s): E11.9 - TYPE 2 DIABETES MELLITUS WITHOUT COMPLICATIONS Qualifiers: Diabetes mellitus intermediate frame tender insulin use: with shelter use Chronic kidney disease stage: stage 4 (severe) (5) ASHD (arteriosclerotic heart disease) Code(s): I25.10 - ATHSCL HEART DISEASE OF [place] CORONARY ARTERY W/O ANG PCTRS (6) Acute on chronic diastolic CHF (congestive heart failure) Code(s): I50.33 - ACUTE ON CHRONIC DIASTOLIC (CONGESTIVE) HEART FAILURE (7) Acute on chronic respiratory failure with hypoxia and hypercapnia Code(s): J96.21 - ACUTE AND CHRONIC RESPIRATORY FAILURE WITH HYPOXIA; J96.22 - ACUTE AND CHRONIC RESPIRATORY FAILURE WITH HYPERCAPNIA (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 - OTHER SPECIFIED PLEURAL CONDITIONS (9) CAD (coronary artery disease) Code(s): I25.10 - ATHSCL HEART DISEASE OF [place] CORONARY ARTERY W/O ANG PCTRS Qualifiers: Coronary Disease-Associated Artery/Lesion type: bypass graft, autologous artery Associated angina: without angina Qualified Code(s): I25.810 - Atherosclerosis of coronary artery bypass graft(s) without angina pectoris (10) HTN (hypertension) Code(s): I10 - ESSENTIAL (PRIMARY) HYPERTENSION (11) Hypoxemia Code(s): R09.02 - HYPOXEMIA (12) Pulmonary hypertension Code(s): I27.20 - PULMONARY HYPERTENSION, UNSPECIFIED (13) S/P CABG (coronary artery bypass graft) Code(s): Z95.1 - PRESENCE OF AORTOCORONARY BYPASS GRAFT (14) Sleep apnea Code(s): G47.30 - SLEEP APNEA, UNSPECIFIED Qualifiers: Sleep apnea type: unspecified type Qualified Code(s): G47.30 - Sleep apnea , unspecified
[2018-09-15 15:29] VITALS: BMI 35.5
[2018-09-15] MEDS: guaiFENesin/CODEINE 5 ML UNIT-DOSE CUPS PO PRN (21:44)
[2018-09-16] MEDS: ALBUTEROL SO4 2.5/IPRATROPIUM 0.5 INH SOL 3 ML VIAL.NEB. NEB SCH ×7 (03:33→23:16)
[2018-09-16] MEDS ORDERED: PT OWN MED DRAWER 7, Y5N ONE ×4 (06:11→21:56)
[2018-09-16] MEDS: LEVOTHYROXINE NA 50 MCG TABLET (FP) PO SCH (06:26)
[2018-09-16] MEDS: FUROSEMIDE 100 MG/10 ML INJECTABLE VIAL IVPUSH SCH ×2 (06:26→13:44)
[2018-09-16] MEDS: guaiFENesin/CODEINE 5 ML UNIT-DOSE CUPS PO PRN ×2 (06:26→22:02)
[2018-09-16] MEDS: CLOTRIMAZOLE 10 MG TROCHE (FP) PO SCH ×5 (06:27→22:02)
[2018-09-16] MEDS: INSULIN SLIDING SCALE (NOVOLOG) 1 VIAL SQ SCH ×4 (06:27→23:05)
[2018-09-16] MEDS: INSULIN (LEVEMIR) 100 UNITS/ML UNITS SQ SCH (06:27)
[2018-09-16 07:59] LABS: BLOOD UREA NITROGEN 45.6 mg/dL (7-18); CREATININE 1.3 mg/dL (0.55-1.3)
--- NOTE | 2018-09-16 08:15 | PN ---
Progress Note, Physician Chief Complaint: sob History of Present Illness: states he remains sob in bed, coughing a lot of phlegm legs weak when tries to stand no cp no leg swelling no palpit remote cigs - Current Medication List Current Medications: Active Medications Albuterol/Ipratropium (Duoneb -) 1 amp NEB Q4H [facility] Last Admin: 09/16/18 03:33 Dose: 1 amp Apixaban (Eliquis -) 2.5 mg PO BID [facility] Last Admin: 09/15/18 21:44 Dose: 2.5 mg Aspirin (Asa -) 81 mg PO DAILY [facility] Last Admin: 09/15/18 10:08 Dose: 81 mg Bisacodyl (Dulcolax -) 10 mg PO DAILY [facility] Last Admin: 09/15/18 10:07 Dose: 10 mg Clotrimazole (Mycelex Akilah's -) 10 mg PO 5XD [facility] Last Admin: 09/16/18 06:27 Dose: 10 mg Colchicine (Colcrys) 0.6 mg PO BID [facility] Last Admin: 09/15/18 21:44 Dose: 0.6 mg Docusate Sodium (Colace -) 100 mg PO BID [facility] Last Admin: 09/15/18 21:44 Dose: 100 mg Febuxostat (Uloric -) 40 mg PO DAILY [facility] Last Admin: 09/15/18 10:08 Dose: 40 mg Furosemide (Lasix Injection -) 100 mg IVPUSH BID@0600,1400 [facility] Last Admin: 09/16/18 06:26 Dose: 100 mg Guaifenesin/Codeine Phosphate (Robitussin Ac -) 5 ml PO TID PRN PRN Reason: COUGH Last Admin: 09/16/18 06:26 Dose: 5 ml Insulin Aspart (Novolog Vial Sliding Scale -) 1 vial SQ Q6H [facility]; Protocol Last Admin: 09/16/18 06:27 Dose: 4 unit Insulin Detemir (Levemir Vial) 30 units SQ DAILY@0700 [facility] Last Admin: 09/16/18 06:27 Dose: 30 units Levothyroxine Sodium (Synthroid -) 50 mcg PO DAILY@0700 [facility] Last Admin: 09/16/18 06:26 Dose: 50 mcg Magnesium Hydroxide (Milk Of Magnesia -) 30 ml PO DAILY [facility] Last Admin: 09/15/18 10:15 Dose: Not Given Methylprednisolone Sodium Succinate (Solu-Medrol -) 40 mg IVPUSH DAILY [facility] Stop: 09/18/18 23:59 Last Admin: 09/15/18 10:08 Dose: 40 mg Metoprolol Succinate (Toprol Xl -) 50 mg PO BID [facility] Last Admin: 09/15/18 21:44 Dose: 50 mg Polyethylene Glycol (Miralax (For Daily Use) -) 17 gm PO DAILY [facility] Last Admin: 09/15/18 10:12 Dose: 17 gm Spironolactone (Aldactone -) 25 mg PO BID [facility] Last Admin: 09/15/18 21:44 Dose: 25 mg - Objective Vital Signs: Vital Signs Temperature 98.0 F 09/16/18 06:00 Pulse Rate 85 09/16/18 06:00 Respiratory Rate 20 09/16/18 06:00 Blood Pressure 123/65 09/16/18 06:00 O2 Sat by Pulse Oximetry (%) 93 L 09/15/18 21:00 Constitutional: Yes: No Distress, Calm Eyes: No: Sclera Icterus HENT: No: Nasal Congestion Cardiovascular: Yes: Pulse Irregular, S1, S2, Other (PMI non diplaced). No: JVD (prohibitive TDS neck habitus), Gallop, Murmur Respiratory: Yes: CTA Bilaterally. No: Accessory Muscle Use, Rales, Wheezes Gastrointestinal: Yes: Normal Bowel Sounds, Soft. 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 (home regimen: torsemide 100 bid, spironolactone 25) -Chronic respiratory failure -Asbestos lung dz/ ILD, on home O2. 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 standing wts 227-->230. renal fxn improved. cxr slight improvement 09/13. appears euvolemic, cannot assess JVD given very thick neck. same diuretics today, cont pulm tx with steroids, guafenesin for cough. rpt CXR, BNP in am. if wt up further tomorrow will plan to try incr diuresis. -continue spirono -NIPPV and suppl O2--on 24/7 O2 at home he says -Cont Eliquis adjusted for age and renal fx. Cont Metoprolol at home dose. -consider cardiomems implant (PAP monitor) given mixture of significant lung dz , diast HF and renal insufficiency, if this may help guide diuresis--will defer to outpt cardio -not on BETTY/ARB, EF is mid-range. ? creatinine fluctuations previously have been limiting--defer to outpt cardio
[2018-09-16 08:23] LABS: CALCIUM 5.8 mg/dL (8.5-10.1)
[2018-09-16] MEDS ORDERED: CALCIUM GLUCONATE 10% - 1,000 MG/10 ML VIAL IVPB ONE (09:29)
--- NOTE | 2018-09-16 09:42 | PN ---
Physical Exam: SUBJECTIVE: Patient seen and examined He is still sob and wheezing no fever or chills he has low k and low calcium no tremors and no tetnay like movements OBJECTIVE: Vital Signs Period Temp Pulse Resp BP Sys/Junior Pulse Ox Last 24 Hr 97.5 F-98.7 F 84-95 18-20 99-139/60-86 93-96 GENERAL: The patient is awake, alert, and fully oriented, looks congested HEAD: Normal with no signs of trauma. EYES: PERRL, extraocular movements intact, sclera anicteric, conjunctiva clear. No ptosis. ENT: Ears normal, nares patent, oropharynx clear without exudates, moist mucous membranes. NECK: Trachea midline, full range of motion, supple. LUNGS: bilateral wheezing but good air entry HEART: Regular rate and rhythm, S1, S2 without murmur, rub or gallop. ABDOMEN: Soft, nontender, nondistended, normoactive bowel sounds, no guarding, no rebound, no masses. EXTREMITIES: 2+ pulses, warm, well-perfused, no edema. NEUROLOGICAL: Cranial nerves II through XII grossly intact. Normal speech, gait not observed. PSYCH: Normal mood, normal affect. SKIN: Warm, dry, normal turgor, no rashes or lesions noted Laboratory Results - last 24 hr 09/15/18 09/15/18 09/15/18 12:11 17:12 23:40 Sodium Potassium Chloride Carbon Dioxide Anion Gap BUN Creatinine Est GFR (CKD-EPI)AfAm Est GFR (CKD-EPI)NonAf POC Glucometer 252 256 307 Random Glucose Calcium 09/16/18 09/16/18 05:45 06:35 Sodium 146 H Potassium 3.0 L Chloride 110 H Carbon Dioxide 32 Anion Gap 5 L BUN 45.6 H Creatinine 1.3 Est GFR (CKD-EPI)AfAm 56.86 Est GFR (CKD-EPI)NonAf 49.06 POC Glucometer 224 Random Glucose 131 H Calcium 5.8 L* Active Medications Generic Name Dose Route Start Last Admin Trade Name Freq PRN Reason Stop Dose Admin Albuterol/Ipratropium 1 amp 09/14/18 20:00 09/16/18 03:33 Duoneb - NEB 1 amp Q4H [facility] Administration Apixaban 2.5 mg 09/13/18 22:00 09/15/18 21:44 Eliquis - PO 2.5 mg BID [facility] Administration Aspirin 81 mg 09/14/18 10:00 09/15/18 10:08 Asa - PO 81 mg DAILY [facility] Administration Bisacodyl 10 mg 09/14/18 10:00 09/15/18 10:07 Dulcolax - PO 10 mg DAILY [facility] Administration Calcium Gluconate 1,000 mg 09/16/18 09:29 Calcium Gluconate 10% - IVPB 09/16/18 09:30 ONCE ONE Clotrimazole 10 mg 09/15/18 10:00 09/16/18 06:27 Mycelex Akilah's - PO 10 mg 5XD [facility] Administration Colchicine 0.6 mg 09/13/18 22:00 09/15/18 21:44 Colcrys PO 0.6 mg BID [facility] Administration Docusate Sodium 100 mg 09/13/18 22:00 09/15/18 21:44 Colace - PO 100 mg BID [facility] Administration Febuxostat 40 mg 09/14/18 10:00 09/15/18 10:08 Uloric - PO 40 mg DAILY [facility] Administration Furosemide 100 mg 09/14/18 06:00 09/16/18 06:26 Lasix Injection - IVPUSH 100 mg BID@0600,1400 [facility] Administration Guaifenesin/Codeine Phosphate 5 ml 09/15/18 13:23 09/16/18 06:26 Robitussin Ac - PO 5 ml TID PRN Administration COUGH Insulin Aspart 1 vial 09/14/18 00:00 09/16/18 06:27 Novolog Vial Sliding Scale - SQ 4 unit Q6H [facility] Administration Protocol Insulin Detemir 30 units 09/14/18 07:00 09/16/18 06:27 Levemir Vial SQ 30 units DAILY@0700 [facility] Administration Levothyroxine Sodium 50 mcg 09/14/18 07:00 09/16/18 06:26 Synthroid - PO 50 mcg DAILY@0700 [facility] Administration Magnesium Hydroxide 30 ml 09/14/18 08:30 09/15/18 10:15 Milk Of Magnesia - PO Not Given DAILY [facility] Methylprednisolone Sodium Succinate 40 mg 09/15/18 10:00 09/15/18 10:08 Solu-Medrol - IVPUSH 09/18/18 23:59 40 mg DAILY [facility] Administration Metoprolol Succinate 50 mg 09/13/18 22:00 09/15/18 21:44 Toprol Xl - PO 50 mg BID [facility] Administration Polyethylene Glycol 17 gm 09/14/18 10:00 09/15/18 10:12 Miralax (For Daily Use) - PO 17 gm DAILY [facility] Administration Potassium Chloride 40 meq 09/16/18 10:00 K-Dur - PO 09/16/18 22:01 BID [facility] Spironolactone 25 mg 09/15/18 10:00 09/15/18 21:44 Aldactone - PO 25 mg BID [facility] Administration ASSESSMENT/PLAN: (1) Atrial fibrillation Assessment/Plan: Continue Eliquis, follow on telemetry, rate control Code(s): I48.91 - UNSPECIFIED ATRIAL FIBRILLATION Qualifiers: Atrial fibrillation type: chronic Qualified Code(s): I48.2 - Chronic atrial fibrillation (2) CHF, acute on chronic Assessment/Plan: Continue IV Lasix 100 mg BID Increase Spironolactone 25 mg BID (3) CKD (chronic kidney disease) Assessment/Plan: Stable BUN/Creat he has low k due to lasix and added replacement he has low calcium level and will give him one dose of calcium gluconate today Follow BMP (4) DM type 2 (diabetes mellitus, type 2) Assessment/Plan: Continue BGM Insulin dose in the hospital adjusted for decreased PO intake. (5) Gouty arthritis of both feet Assessment/Plan: IV Solu-medrol 40 mg QD x3 days Continue Colchicine 0.6 mg BID Uloric 40 mg (6) Thrush, oral Assessment/Plan: Mycelex troches PO (7) Respiratory failure with hypercapnia Assessment/Plan: Nebs RTC NIPPV and BIPAP/O2 NC IV Lasix pulmonary f/u Visit type - Emergency Visit Emergency Visit: Yes ED Registration Date: 09/09/18 Care time: The patient presented to the Emergency Department on the above date and was hospitalized for further evaluation of their emergent condition. - New Patient This patient is new to me today: Yes Date on this admission: 09/16/18 - Critical Care Critical Care patient: No - Discharge Referral Referred to [facility] No
[2018-09-16] MEDS: DOCUSATE SODIUM 100 MG CAPSULE (FP) PO SCH ×2 (10:11→22:02)
[2018-09-16] MEDS: SPIRONOLACTONE 25 MG TABLET (FP) PO SCH ×2 (10:11→22:02)
[2018-09-16] MEDS: APIXABAN 2.5 MG TABLET PO SCH ×2 (10:11→22:02)
[2018-09-16] MEDS: MAGNESIUM HYDROX 2400MG/30ML ORAL SUSPENSION 30 ML CUP PO SCH (10:12)
[2018-09-16] MEDS: ASPIRIN 81 MG CHEWABLE TABLETS PO SCH (10:12)
[2018-09-16] MEDS: COLCHICINE 0.6 MG CAP PO SCH ×2 (10:12→22:02)
[2018-09-16] MEDS: BISACODYL 5 MG TABLET.DR (FP) PO SCH (10:12)
[2018-09-16] MEDS: POLYETHYLENE GLYCOL 3350 119 GM BTL PO SCH (10:13)
[2018-09-16] MEDS: methylPREDNISolone NA SUCC 40 MG/1 ML VIAL IVPUSH SCH (10:13)
[2018-09-16] MEDS: FEBUXOSTAT 40 MG TAB PO SCH (10:14)
--- NOTE | 2018-09-16 10:41 | PN ---
Progress Note, Physician History of Present Illness: pulmonary alert,still c/o sob,congestion - Current Medication List Current Medications: Active Medications Albuterol/Ipratropium (Duoneb -) 1 amp NEB Q4H [facility] Last Admin: 09/16/18 08:13 Dose: 1 amp Apixaban (Eliquis -) 2.5 mg PO BID [facility] Last Admin: 09/16/18 10:11 Dose: 2.5 mg Aspirin (Asa -) 81 mg PO DAILY [facility] Last Admin: 09/16/18 10:12 Dose: 81 mg Bisacodyl (Dulcolax -) 10 mg PO DAILY [facility] Last Admin: 09/16/18 10:12 Dose: Not Given Clotrimazole (Mycelex Akilah's -) 10 mg PO 5XD [facility] Last Admin: 09/16/18 10:14 Dose: 10 mg Colchicine (Colcrys) 0.6 mg PO BID [facility] Last Admin: 09/16/18 10:12 Dose: 0.6 mg Docusate Sodium (Colace -) 100 mg PO BID [facility] Last Admin: 09/16/18 10:11 Dose: 100 mg Febuxostat (Uloric -) 40 mg PO DAILY [facility] Last Admin: 09/16/18 10:14 Dose: 40 mg Furosemide (Lasix Injection -) 100 mg IVPUSH BID@0600,1400 [facility] Last Admin: 09/16/18 06:26 Dose: 100 mg Guaifenesin/Codeine Phosphate (Robitussin Ac -) 5 ml PO TID PRN PRN Reason: COUGH Last Admin: 09/16/18 06:26 Dose: 5 ml Insulin Aspart (Novolog Vial Sliding Scale -) 1 vial SQ Q6H [facility]; Protocol Last Admin: 09/16/18 06:27 Dose: 4 unit Insulin Detemir (Levemir Vial) 30 units SQ DAILY@0700 [facility] Last Admin: 09/16/18 06:27 Dose: 30 units Levothyroxine Sodium (Synthroid -) 50 mcg PO DAILY@0700 [facility] Last Admin: 09/16/18 06:26 Dose: 50 mcg Magnesium Hydroxide (Milk Of Magnesia -) 30 ml PO DAILY [facility] Last Admin: 09/16/18 10:12 Dose: Not Given Methylprednisolone Sodium Succinate (Solu-Medrol -) 40 mg IVPUSH DAILY [facility] Stop: 09/18/18 23:59 Last Admin: 09/16/18 10:13 Dose: 40 mg Metoprolol Succinate (Toprol Xl -) 50 mg PO BID [facility] Last Admin: 09/16/18 10:11 Dose: 50 mg Polyethylene Glycol (Miralax (For Daily Use) -) 17 gm PO DAILY [facility] Last Admin: 09/16/18 10:13 Dose: 17 gm Potassium Chloride (K-Dur -) 40 meq PO BID [facility] Stop: 09/16/18 22:01 Spironolactone (Aldactone -) 25 mg PO BID [facility] Last Admin: 09/16/18 10:11 Dose: 25 mg - Objective Vital Signs: Vital Signs Temperature 98.0 F 09/16/18 06:00 Pulse Rate 85 09/16/18 06:00 Respiratory Rate 20 09/16/18 06:00 Blood Pressure 123/65 09/16/18 06:00 O2 Sat by Pulse Oximetry (%) 93 L 09/15/18 21:00 Constitutional: Yes: Well Nourished, Calm Eyes: Yes: WNL, Occular Prosthesis Neck: Yes: WNL Cardiovascular: Yes: Pulse Irregular, S1, S2 Respiratory: Yes: Rhonchi (scattered aron rhonchi) Gastrointestinal: Yes: Normal Bowel Sounds, Soft Extremities: Yes: WNL Edema: No Labs: CBC, BMP 09/14/18 06:45 09/16/18 06:35 INR, PTT INR 1.39 (0.83-1.09) H 09/09/18 21:35 Assessment/Plan ASSESSMENT AND PLAN: Acute on Chronic Hypoxic and Hypercapneic Respiratory Failure 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 Pulmonary HTN Obstructive Sleep Apnea CAD s/p CABG Atrial Fibrillation CKD DM - NIPPV support as needed - nasal O2 tolerated - continue lasix, aldactone, medrol - monitor urine output, creatinine - inhaled bronchodilators standing and PRN - O2 to keep SpO2 88-92% DR HERNANDEZ Problem List - Problems (1) Atrial fibrillation Code(s): I48.91 - UNSPECIFIED ATRIAL FIBRILLATION Qualifiers: Atrial fibrillation type: chronic Qualified Code(s): I48.2 - Chronic atrial fibrillation (2) CHF, acute on chronic Code(s): I50.9 - HEART FAILURE, UNSPECIFIED Qualifiers: Heart failure type: combined systolic and diastolic Qualified Code(s): I50.43 - Acute on chronic combined systolic (congestive) and diastolic ( congestive) heart failure (3) CKD (chronic kidney disease) Code(s): N18.9 - CHRONIC KIDNEY DISEASE, UNSPECIFIED (4) DM type 2 (diabetes mellitus, type 2) Code(s): E11.9 - TYPE 2 DIABETES MELLITUS WITHOUT COMPLICATIONS Qualifiers: Diabetes mellitus assisted insulin use: with assisted use Chronic kidney disease stage: stage 4 (severe) (5) ASHD (arteriosclerotic heart disease) Code(s): I25.10 - ATHSCL HEART DISEASE OF [place] CORONARY ARTERY W/O ANG PCTRS (6) Acute on chronic diastolic CHF (congestive heart failure) Code(s): I50.33 - ACUTE ON CHRONIC DIASTOLIC (CONGESTIVE) HEART FAILURE (7) Acute on chronic respiratory failure with hypoxia and hypercapnia Code(s): J96.21 - ACUTE AND CHRONIC RESPIRATORY FAILURE WITH HYPOXIA; J96.22 - ACUTE AND CHRONIC RESPIRATORY FAILURE WITH HYPERCAPNIA (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 - OTHER SPECIFIED PLEURAL CONDITIONS (9) CAD (coronary artery disease) Code(s): I25.10 - ATHSCL HEART DISEASE OF [place] CORONARY ARTERY W/O ANG PCTRS Qualifiers: Coronary Disease-Associated Artery/Lesion type: bypass graft, autologous artery Associated angina: without angina Qualified Code(s): I25.810 - Atherosclerosis of coronary artery bypass graft(s) without angina pectoris (10) HTN (hypertension) Code(s): I10 - ESSENTIAL (PRIMARY) HYPERTENSION (11) Hypoxemia Code(s): R09.02 - HYPOXEMIA (12) Pulmonary hypertension Code(s): I27.20 - PULMONARY HYPERTENSION, UNSPECIFIED (13) S/P CABG (coronary artery bypass graft) Code(s): Z95.1 - PRESENCE OF AORTOCORONARY BYPASS GRAFT (14) Sleep apnea Code(s): G47.30 - SLEEP APNEA, UNSPECIFIED Qualifiers: Sleep apnea type: unspecified type Qualified Code(s): G47.30 - Sleep apnea , unspecified
[2018-09-16] MEDS: POTASSIUM CHLORIDE TABS 20 MEQ TABLET.ER (FP) PO SCH ×2 (12:09→22:02)
[2018-09-17] MEDS: ALBUTEROL SO4 2.5/IPRATROPIUM 0.5 INH SOL 3 ML VIAL.NEB. NEB SCH ×5 (04:47→20:15)
[2018-09-17] MEDS: FUROSEMIDE 100 MG/10 ML INJECTABLE VIAL IVPUSH SCH (05:29)
[2018-09-17] MEDS ORDERED: PT OWN MED DRAWER 7, Y5N ONE ×4 (05:30→21:26)
[2018-09-17] MEDS: CLOTRIMAZOLE 10 MG TROCHE (FP) PO SCH ×5 (05:36→21:55)
[2018-09-17] MEDS: INSULIN (LEVEMIR) 100 UNITS/ML UNITS SQ SCH (06:31)
[2018-09-17] MEDS: LEVOTHYROXINE NA 50 MCG TABLET (FP) PO SCH (06:32)
[2018-09-17] MEDS: INSULIN SLIDING SCALE (NOVOLOG) 1 VIAL SQ SCH ×4 (06:32→23:54)
[2018-09-17 07:42] LABS: BLOOD UREA NITROGEN 66.7 mg/dL (7-18); CALCIUM 8.6 mg/dL (8.5-10.1); CREATININE 1.9 mg/dL (0.55-1.3); POTASSIUM 4.7 mmol/L (3.5-5.1)
[2018-09-17 08:26] LABS: N-TERMINAL BNP 2010.5 pg/ml (5-450)
--- NOTE | 2018-09-17 08:34 | PN ---
Progress Note, Physician Chief Complaint: sob History of Present Illness: less sob less cough still feels phlegm in throat--white when comes up no leg swelling no cp, palpit - Current Medication List Current Medications: Active Medications Albuterol/Ipratropium (Duoneb -) 1 amp NEB Q4H [facility] Last Admin: 09/17/18 04:47 Dose: 1 amp Apixaban (Eliquis -) 2.5 mg PO BID [facility] Last Admin: 09/16/18 22:02 Dose: 2.5 mg Aspirin (Asa -) 81 mg PO DAILY [facility] Last Admin: 09/16/18 10:12 Dose: 81 mg Bisacodyl (Dulcolax -) 10 mg PO DAILY [facility] Last Admin: 09/16/18 10:12 Dose: Not Given Clotrimazole (Mycelex Akilah's -) 10 mg PO 5XD [facility] Last Admin: 09/17/18 05:36 Dose: 10 mg Colchicine (Colcrys) 0.6 mg PO BID [facility] Last Admin: 09/16/18 22:02 Dose: 0.6 mg Docusate Sodium (Colace -) 100 mg PO BID [facility] Last Admin: 09/16/18 22:02 Dose: 100 mg Febuxostat (Uloric -) 40 mg PO DAILY [facility] Last Admin: 09/16/18 10:14 Dose: 40 mg Furosemide (Lasix Injection -) 100 mg IVPUSH BID@0600,1400 [facility] Last Admin: 09/17/18 05:29 Dose: 100 mg Guaifenesin/Codeine Phosphate (Robitussin Ac -) 5 ml PO TID PRN PRN Reason: COUGH Last Admin: 09/16/18 22:02 Dose: 5 ml Insulin Aspart (Novolog Vial Sliding Scale -) 1 vial SQ Q6H [facility]; Protocol Last Admin: 09/17/18 06:32 Dose: 2 unit Insulin Detemir (Levemir Vial) 30 units SQ DAILY@0700 [facility] Last Admin: 09/17/18 06:31 Dose: 30 units Levothyroxine Sodium (Synthroid -) 50 mcg PO DAILY@0700 [facility] Last Admin: 09/17/18 06:32 Dose: 50 mcg Magnesium Hydroxide (Milk Of Magnesia -) 30 ml PO DAILY [facility] Last Admin: 09/16/18 10:12 Dose: Not Given Methylprednisolone Sodium Succinate (Solu-Medrol -) 40 mg IVPUSH DAILY [facility] Stop: 09/18/18 23:59 Last Admin: 09/16/18 10:13 Dose: 40 mg Metoprolol Succinate (Toprol Xl -) 50 mg PO BID [facility] Last Admin: 09/16/18 22:02 Dose: 50 mg Polyethylene Glycol (Miralax (For Daily Use) -) 17 gm PO DAILY [facility] Last Admin: 09/16/18 10:13 Dose: 17 gm Spironolactone (Aldactone -) 25 mg PO BID [facility] Last Admin: 09/16/18 22:02 Dose: 25 mg - Objective Vital Signs: Vital Signs Temperature 97.6 F 09/17/18 05:00 Pulse Rate 83 09/17/18 05:00 Respiratory Rate 20 09/17/18 05:00 Blood Pressure 112/60 09/17/18 05:00 O2 Sat by Pulse Oximetry (%) 94 L 09/16/18 23:00 Constitutional: Yes: No Distress, Calm, Obese Cardiovascular: Yes: Regular Rate and Rhythm, S1, S2. No: JVD (tds neck), Gallop, Murmur Respiratory: Yes: Regular, Wheezes (faint, BRIANA). 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 (home regimen: torsemide 100 bid, spironolactone 25) -Chronic respiratory failure -Asbestos lung dz/ ILD, on home O2. 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 standing wts 227-->230(-->246 today lift scale is erroneous). renal fxn worsening. appears euvolemic, cannot assess JVD given very thick neck. cxr today rotated film, much of L lung obscured. R lung lower co[place]ran cleared vs prior. suspect he is euvolemic. (rpt bnp may not be helpful with his degree of renal dysfunction). decrease lasix to 100 IV qd (defer change back to home po torsemide while on iv steroids here). low threshold cut lasix dose further if bun/creat up tomorrow -continue spirono -NIPPV and suppl O2--on 24/7 O2 at home he says -Cont Eliquis adjusted for age and renal fx. Cont Metoprolol at home dose. -consider cardiomems implant (PAP monitor) given mixture of significant lung dz , diast HF and renal insufficiency, if this may help guide diuresis--will defer to outpt cardio -not on BETTY/ARB, EF is mid-range. ? creatinine fluctuations previously have been limiting--defer to outpt cardio -D/C TELE
[2018-09-17] MEDS: APIXABAN 2.5 MG TABLET PO SCH ×2 (10:01→21:23)
[2018-09-17] MEDS: MAGNESIUM HYDROX 2400MG/30ML ORAL SUSPENSION 30 ML CUP PO SCH (10:01)
[2018-09-17] MEDS: DOCUSATE SODIUM 100 MG CAPSULE (FP) PO SCH ×2 (10:01→21:23)
[2018-09-17] MEDS: COLCHICINE 0.6 MG CAP PO SCH ×2 (10:01→21:23)
[2018-09-17] MEDS: BISACODYL 5 MG TABLET.DR (FP) PO SCH (10:01)
[2018-09-17] MEDS: ASPIRIN 81 MG CHEWABLE TABLETS PO SCH (10:01)
[2018-09-17] MEDS: methylPREDNISolone NA SUCC 40 MG/1 ML VIAL IVPUSH SCH (10:01)
[2018-09-17] MEDS: SPIRONOLACTONE 25 MG TABLET (FP) PO SCH ×2 (10:01→21:23)
[2018-09-17] MEDS: FEBUXOSTAT 40 MG TAB PO SCH (10:02)
[2018-09-17] MEDS: POLYETHYLENE GLYCOL 3350 119 GM BTL PO SCH (10:03)
--- NOTE | 2018-09-17 10:14 | PN ---
Progress Note, Physician History of Present Illness: PULMONARY ALERT,LESS CONGESTED,LESS COUGH - Current Medication List Current Medications: Active Medications Albuterol/Ipratropium (Duoneb -) 1 amp NEB Q4H [facility] Last Admin: 09/17/18 04:47 Dose: 1 amp Apixaban (Eliquis -) 2.5 mg PO BID [facility] Last Admin: 09/17/18 10:01 Dose: 2.5 mg Aspirin (Asa -) 81 mg PO DAILY [facility] Last Admin: 09/17/18 10:01 Dose: 81 mg Bisacodyl (Dulcolax -) 10 mg PO DAILY [facility] Last Admin: 09/17/18 10:01 Dose: 10 mg Clotrimazole (Mycelex Akilah's -) 10 mg PO 5XD [facility] Last Admin: 09/17/18 10:03 Dose: 10 mg Colchicine (Colcrys) 0.6 mg PO BID [facility] Last Admin: 09/17/18 10:01 Dose: 0.6 mg Docusate Sodium (Colace -) 100 mg PO BID [facility] Last Admin: 09/17/18 10:01 Dose: 100 mg Febuxostat (Uloric -) 40 mg PO DAILY [facility] Last Admin: 09/17/18 10:02 Dose: 40 mg Furosemide (Lasix Injection -) 100 mg IVPUSH BID@0600,1400 [facility] Last Admin: 09/17/18 05:29 Dose: 100 mg Guaifenesin/Codeine Phosphate (Robitussin Ac -) 5 ml PO TID PRN PRN Reason: COUGH Last Admin: 09/16/18 22:02 Dose: 5 ml Insulin Aspart (Novolog Vial Sliding Scale -) 1 vial SQ Q6H [facility]; Protocol Last Admin: 09/17/18 06:32 Dose: 2 unit Insulin Detemir (Levemir Vial) 30 units SQ DAILY@0700 [facility] Last Admin: 09/17/18 06:31 Dose: 30 units Levothyroxine Sodium (Synthroid -) 50 mcg PO DAILY@0700 [facility] Last Admin: 09/17/18 06:32 Dose: 50 mcg Magnesium Hydroxide (Milk Of Magnesia -) 30 ml PO DAILY [facility] Last Admin: 09/17/18 10:01 Dose: 30 ml Methylprednisolone Sodium Succinate (Solu-Medrol -) 40 mg IVPUSH DAILY [facility] Stop: 09/18/18 23:59 Last Admin: 09/17/18 10:01 Dose: 40 mg Metoprolol Succinate (Toprol Xl -) 50 mg PO BID [facility] Last Admin: 09/17/18 10:01 Dose: 50 mg Polyethylene Glycol (Miralax (For Daily Use) -) 17 gm PO DAILY [facility] Last Admin: 09/17/18 10:03 Dose: 17 gm Spironolactone (Aldactone -) 25 mg PO BID [facility] Last Admin: 09/17/18 10:01 Dose: 25 mg - Objective Vital Signs: Vital Signs Temperature 97.6 F 09/17/18 05:00 Pulse Rate 83 09/17/18 05:00 Respiratory Rate 20 09/17/18 05:00 Blood Pressure 112/60 09/17/18 05:00 O2 Sat by Pulse Oximetry (%) 94 L 09/16/18 23:00 Constitutional: Yes: Calm, Obese Eyes: Yes: WNL HENT: Yes: WNL Neck: Yes: WNL Cardiovascular: Yes: Pulse Irregular, S1, S2 Respiratory: Yes: Rhonchi (FEW RHONCHI BILATERALLY) Gastrointestinal: Yes: Normal Bowel Sounds, Soft Extremities: Yes: WNL Edema: No Labs: CBC, BMP 09/17/18 06:20 INR, PTT INR 1.39 (0.83-1.09) H 09/09/18 21:35 Assessment/Plan ASSESSMENT AND PLAN: Acute on Chronic Hypoxic and Hypercapneic Respiratory Failure improving 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 Pulmonary HTN Obstructive Sleep Apnea CAD s/p CABG Atrial Fibrillation CKD DM - NIPPV support as needed - nasal O2 tolerated - lasix, aldactone, medrol - monitor urine output, creatinine - inhaled bronchodilators standing and PRN - O2 to keep SpO2 88-92% DR HERNANDEZ Problem List - Problems (1) Atrial fibrillation Code(s): I48.91 - UNSPECIFIED ATRIAL FIBRILLATION Qualifiers: Atrial fibrillation type: chronic Qualified Code(s): I48.2 - Chronic atrial fibrillation (2) CHF, acute on chronic Code(s): I50.9 - HEART FAILURE, UNSPECIFIED Qualifiers: Heart failure type: combined systolic and diastolic Qualified Code(s): I50.43 - Acute on chronic combined systolic (congestive) and diastolic ( congestive) heart failure (3) CKD (chronic kidney disease) Code(s): N18.9 - CHRONIC KIDNEY DISEASE, UNSPECIFIED (4) DM type 2 (diabetes mellitus, type 2) Code(s): E11.9 - TYPE 2 DIABETES MELLITUS WITHOUT COMPLICATIONS Qualifiers: Diabetes mellitus skilled nursing insulin use: with skilled nursing use Chronic kidney disease stage: stage 4 (severe) (5) ASHD (arteriosclerotic heart disease) Code(s): I25.10 - ATHSCL HEART DISEASE OF [place] CORONARY ARTERY W/O ANG PCTRS (6) Acute on chronic diastolic CHF (congestive heart failure) Code(s): I50.33 - ACUTE ON CHRONIC DIASTOLIC (CONGESTIVE) HEART FAILURE (7) Acute on chronic respiratory failure with hypoxia and hypercapnia Code(s): J96.21 - ACUTE AND CHRONIC RESPIRATORY FAILURE WITH HYPOXIA; J96.22 - ACUTE AND CHRONIC RESPIRATORY FAILURE WITH HYPERCAPNIA (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 - OTHER SPECIFIED PLEURAL CONDITIONS (9) CAD (coronary artery disease) Code(s): I25.10 - ATHSCL HEART DISEASE OF [place] CORONARY ARTERY W/O ANG PCTRS Qualifiers: Coronary Disease-Associated Artery/Lesion type: bypass graft, autologous artery Associated angina: without angina Qualified Code(s): I25.810 - Atherosclerosis of coronary artery bypass graft(s) without angina pectoris (10) HTN (hypertension) Code(s): I10 - ESSENTIAL (PRIMARY) HYPERTENSION (11) Hypoxemia Code(s): R09.02 - HYPOXEMIA (12) Pulmonary hypertension Code(s): I27.20 - PULMONARY HYPERTENSION, UNSPECIFIED (13) S/P CABG (coronary artery bypass graft) Code(s): Z95.1 - PRESENCE OF AORTOCORONARY BYPASS GRAFT (14) Sleep apnea Code(s): G47.30 - SLEEP APNEA, UNSPECIFIED Qualifiers: Sleep apnea type: unspecified type Qualified Code(s): G47.30 - Sleep apnea , unspecified
--- NOTE | 2018-09-17 15:33 | PN ---
Physical Exam: SUBJECTIVE: Patient seen and examined He is better and no more leg swelling, no fever or chills seen by cardio and pulmonary his creatinine gone up to 1.9 OBJECTIVE: Vital Signs Period Temp Pulse Resp BP Sys/Junior Pulse Ox Last 24 Hr 97.4 F-97.8 F 81-97 18-20 112-142/60-81 94-96 GENERAL: The patient is awake, alert, and fully oriented, in no acute distress. HEAD: Normal with no signs of trauma. EYES: PERRL, extraocular movements intact, sclera anicteric, conjunctiva clear. No ptosis. ENT: Ears normal, nares patent, oropharynx clear without exudates, moist mucous membranes. NECK: Trachea midline, full range of motion, supple. LUNGS: Breath sounds equal, has mild exp wheezing HEART: Regular rate and rhythm, S1, S2 without murmur, rub or gallop. ABDOMEN: Soft, nontender, nondistended, normoactive bowel sounds, no guarding, no rebound, no hepatosplenomegaly, no masses. EXTREMITIES: 2+ pulses, warm, well-perfused, no edema. NEUROLOGICAL: Cranial nerves II through XII grossly intact. Normal speech, gait not observed. PSYCH: Normal mood, normal affect. SKIN: Warm, dry, normal turgor, no rashes or lesions noted Laboratory Results - last 24 hr 09/16/18 09/16/18 09/17/18 17:13 22:06 05:27 Sodium Potassium Chloride Carbon Dioxide Anion Gap BUN Creatinine Est GFR (CKD-EPI)AfAm Est GFR (CKD-EPI)NonAf POC Glucometer 301 307 190 Random Glucose Calcium B-Natriuretic Peptide 09/17/18 09/17/18 06:20 11:33 Sodium 137 Potassium 4.7 Chloride 93 L Carbon Dioxide 41 H Anion Gap 3 L BUN 66.7 H Creatinine 1.9 H Est GFR (CKD-EPI)AfAm 35.94 Est GFR (CKD-EPI)NonAf 31.01 POC Glucometer 264 Random Glucose 159 H Calcium 8.6 B-Natriuretic Peptide 2010.5 H Active Medications Generic Name Dose Route Start Last Admin Trade Name Freq PRN Reason Stop Dose Admin Albuterol/Ipratropium 1 amp 09/14/18 20:00 09/17/18 11:51 Duoneb - NEB 1 amp Q4H [facility]E Administration Apixaban 2.5 mg 09/13/18 22:00 09/17/18 10:01 Eliquis - PO 2.5 mg BID JOE Administration Aspirin 81 mg 09/14/18 10:00 09/17/18 10:01 Asa - PO 81 mg DAILY [facility]E Administration Bisacodyl 10 mg 09/14/18 10:00 09/17/18 10:01 Dulcolax - PO 10 mg DAILY [facility]E Administration Clotrimazole 10 mg 09/15/18 10:00 09/17/18 13:56 Mycelex Akilah's - PO 10 mg 5XD JOE Administration Colchicine 0.6 mg 09/13/18 22:00 09/17/18 10:01 Colcrys PO 0.6 mg BID JOE Administration Docusate Sodium 100 mg 09/13/18 22:00 09/17/18 10:01 Colace - PO 100 mg BID [facility]E Administration Febuxostat 40 mg 09/14/18 10:00 09/17/18 10:02 Uloric - PO 40 mg DAILY [facility] Administration Furosemide 100 mg 09/18/18 10:00 Lasix Injection - IVPUSH DAILY [facility] Guaifenesin/Codeine Phosphate 5 ml 09/15/18 13:23 09/16/18 22:02 Robitussin Ac - PO 5 ml TID PRN Administration COUGH Insulin Aspart 1 vial 09/14/18 00:00 09/17/18 11:38 Novolog Vial Sliding Scale - SQ 6 unit Q6H [facility]E Administration Protocol Insulin Detemir 30 units 09/14/18 07:00 09/17/18 06:31 Levemir Vial SQ 30 units DAILY@0700 [facility] Administration Levothyroxine Sodium 50 mcg 09/14/18 07:00 09/17/18 06:32 Synthroid - PO 50 mcg DAILY@0700 [facility] Administration Magnesium Hydroxide 30 ml 09/14/18 08:30 09/17/18 10:01 Milk Of Magnesia - PO 30 ml DAILY [facility] Administration Methylprednisolone Sodium Succinate 40 mg 09/15/18 10:00 09/17/18 10:01 Solu-Medrol - IVPUSH 09/18/18 23:59 40 mg DAILY [facility] Administration Metoprolol Succinate 50 mg 09/13/18 22:00 09/17/18 10:01 Toprol Xl - PO 50 mg BID [facility] Administration Polyethylene Glycol 17 gm 09/14/18 10:00 09/17/18 10:03 Miralax (For Daily Use) - PO 17 gm DAILY [facility] Administration Spironolactone 25 mg 09/15/18 10:00 09/17/18 10:01 Aldactone - PO 25 mg BID [facility] Administration ASSESSMENT/PLAN: (1) Atrial fibrillation Assessment/Plan: Continue Eliquis, follow on telemetry, rate control Code(s): I48.91 - UNSPECIFIED ATRIAL FIBRILLATION Qualifiers: Atrial fibrillation type: chronic Qualified Code(s): I48.2 - Chronic atrial fibrillation (2) CHF, acute on chronic Assessment/Plan: change lasix to 100 daily incrase in BUN and creatinine Increase Spironolactone 25 mg BID (3) CKD (chronic kidney disease) Assessment/Plan: inc BUN/Creat change the dose of lasix to daily (4) DM type 2 (diabetes mellitus, type 2) Assessment/Plan: Continue BGM Insulin dose in the hospital adjusted for decreased PO intake. (5) Gouty arthritis of both feet Assessment/Plan: IV Solu-medrol 40 mg QD x3 days Continue Colchicine 0.6 mg BID Uloric 40 mg (6) Thrush, oral Assessment/Plan: Mycelex troches PO (7) Respiratory failure with hypercapnia Assessment/Plan: Nebs RTC NIPPV and BIPAP/O2 NC IV Lasix pulmonary f/u Visit type - Emergency Visit Emergency Visit: Yes ED Registration Date: 09/09/18 Care time: The patient presented to the Emergency Department on the above date and was hospitalized for further evaluation of their emergent condition. - New Patient This patient is new to me today: No - Critical Care Critical Care patient: No - Discharge Referral Referred to [facility] Med P.C.: No
[2018-09-17] MEDS: guaiFENesin/CODEINE 5 ML UNIT-DOSE CUPS PO PRN (18:34)
[2018-09-18] MEDS: ALBUTEROL SO4 2.5/IPRATROPIUM 0.5 INH SOL 3 ML VIAL.NEB. NEB SCH ×7 (00:23→23:48)
[2018-09-18] MEDS: CLOTRIMAZOLE 10 MG TROCHE (FP) PO SCH ×5 (05:49→22:06)
[2018-09-18] MEDS: guaiFENesin/CODEINE 5 ML UNIT-DOSE CUPS PO PRN ×3 (06:19→22:06)
[2018-09-18] MEDS: LEVOTHYROXINE NA 50 MCG TABLET (FP) PO SCH (06:19)
[2018-09-18] MEDS: INSULIN (LEVEMIR) 100 UNITS/ML UNITS SQ SCH (06:19)
[2018-09-18] MEDS: INSULIN SLIDING SCALE (NOVOLOG) 1 VIAL SQ SCH ×4 (06:19→23:30)
[2018-09-18 06:44] LABS: BLOOD UREA NITROGEN 68.2 mg/dL (7-18); CALCIUM 8.6 mg/dL (8.5-10.1); CREATININE 1.9 mg/dL (0.55-1.3); POTASSIUM 5.1 mmol/L (3.5-5.1)
--- NOTE | 2018-09-18 08:19 | PN ---
Progress Note, Physician Chief Complaint: Weekend coverage appreciated. C/o SOB, cough, constipation. History of Present Illness: Persistent left basilar atelectasis/consolidation. CABG ASHD. DM type on Levemir/Januvia. Hypothyroidism. CRI/ckd 4. 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 Previous Thoracentesis in the past-neg for malignancy. JUAN-at nights using BIPAP. Chronic A.Fib. Combined CHF. Gout. Gouty arthritis. Previous rectal surgery for abscess, fistula at [facility]. - Current Medication List Current Medications: Active Medications Albuterol/Ipratropium (Duoneb -) 1 amp NEB Q4H [facility] Last Admin: 09/18/18 04:50 Dose: 1 amp Apixaban (Eliquis -) 2.5 mg PO BID [facility] Last Admin: 09/17/18 21:23 Dose: 2.5 mg Aspirin (Asa -) 81 mg PO DAILY [facility] Last Admin: 09/17/18 10:01 Dose: 81 mg Bisacodyl (Dulcolax -) 10 mg PO DAILY [facility] Last Admin: 09/17/18 10:01 Dose: 10 mg Clotrimazole (Mycelex Akilah's -) 10 mg PO 5XD [facility] Last Admin: 09/18/18 05:49 Dose: 10 mg Colchicine (Colcrys) 0.6 mg PO BID [facility] Last Admin: 09/17/18 21:23 Dose: 0.6 mg Docusate Sodium (Colace -) 100 mg PO BID [facility] Last Admin: 09/17/18 21:23 Dose: 100 mg Febuxostat (Uloric -) 40 mg PO DAILY [facility] Last Admin: 09/17/18 10:02 Dose: 40 mg Furosemide (Lasix Injection -) 100 mg IVPUSH BID@0600,1400 [facility] Guaifenesin/Codeine Phosphate (Robitussin Ac -) 5 ml PO TID PRN PRN Reason: COUGH Last Admin: 09/18/18 06:19 Dose: 5 ml Insulin Aspart (Novolog Vial Sliding Scale -) 1 vial SQ Q6H [facility]; Protocol Last Admin: 09/18/18 06:19 Dose: 4 unit Insulin Detemir (Levemir Vial) 30 units SQ DAILY@0700 [facility] Last Admin: 09/18/18 06:19 Dose: 30 units Levothyroxine Sodium (Synthroid -) 50 mcg PO DAILY@0700 [facility] Last Admin: 09/18/18 06:19 Dose: 50 mcg Magnesium Hydroxide (Milk Of Magnesia -) 30 ml PO DAILY [facility] Last Admin: 09/17/18 10:01 Dose: 30 ml Methylprednisolone Sodium Succinate (Solu-Medrol -) 40 mg IVPUSH DAILY [facility] Stop: 09/18/18 23:59 Last Admin: 09/17/18 10:01 Dose: 40 mg Metoprolol Succinate (Toprol Xl -) 50 mg PO BID [facility] Last Admin: 09/17/18 21:23 Dose: 50 mg Polyethylene Glycol (Miralax (For Daily Use) -) 17 gm PO DAILY [facility] Last Admin: 09/17/18 10:03 Dose: 17 gm Spironolactone (Aldactone -) 25 mg PO DAILY [facility] - Objective Vital Signs: Vital Signs Temperature 97.9 F 09/18/18 06:00 Pulse Rate 77 09/18/18 06:00 Respiratory Rate 20 09/18/18 06:00 Blood Pressure 109/63 09/18/18 06:00 O2 Sat by Pulse Oximetry (%) 98 09/18/18 04:45 Constitutional: Yes: Anxious, Obese Eyes: Yes: Conjunctiva Clear, EOM Intact HENT: Yes: Atraumatic, Normocephalic Neck: Yes: Supple, Trachea Midline. No: Decreased ROM, Lymphadenopathy Cardiovascular: Yes: Pulse Irregular, S1, S2 Respiratory: Yes: Regular, Diminished, On Nasal O2, Poor Air Entry, Rhonchi, SOB , SOB on Exertion Gastrointestinal: Yes: Normal Bowel Sounds, Abdomen, Obese. No: Pulsatile Mass ...Rectal Exam: Yes: Deferred Genitourinary: No: Anuria, Bladder Distention Breast(s): Yes: WNL Extremities: No: Amputation, Calf Tenderness Edema: Yes Edema: LLE: Trace, RLE: Trace Neurological: Yes: Alert, Oriented, Other ([place]). No: Asterixis, Dysarthria ...Motor Strength: WNL Psychiatric: Yes: WNL Labs: CBC, BMP 09/14/18 06:45 09/18/18 05:10 INR, PTT INR 1.39 (0.83-1.09) H 09/09/18 21:35 Problem List - Problems (1) Atrial fibrillation Assessment/Plan: Continue Eliquis, follow on telemetry, rate control Code(s): I48.91 - UNSPECIFIED ATRIAL FIBRILLATION Qualifiers: Atrial fibrillation type: chronic Qualified Code(s): I48.2 - Chronic atrial fibrillation (2) CHF, acute on chronic Assessment/Plan: Continue IV Lasix 100 mg BID Spironolactone 25 mg QD Avoid ARB/BETTY due to stage e CKD, electrolyte imbalance. Weight decrease to 245 lbs BNP from 3000 to 1999 noted Code(s): I50.9 - HEART FAILURE, UNSPECIFIED Qualifiers: Heart failure type: combined systolic and diastolic Qualified Code(s): I50.43 - Acute on chronic combined systolic (congestive) and diastolic ( congestive) heart failure (3) CKD (chronic kidney disease) Assessment/Plan: Creat 1.9 noted. Will keep the patient dry with creat around 2. Code(s): N18.9 - CHRONIC KIDNEY DISEASE, UNSPECIFIED (4) DM type 2 (diabetes mellitus, type 2) Assessment/Plan: Continue BGM Insulin dose in the hospital adjusted for decreased PO intake. Code(s): E11.9 - TYPE 2 DIABETES MELLITUS WITHOUT COMPLICATIONS Qualifiers: Diabetes mellitus moth exterminator insulin use: with moth exterminator use Chronic kidney disease stage: stage 4 (severe)
--- NOTE | 2018-09-18 08:42 | PN ---
Progress Note, Physician Chief Complaint: seen and examined Eating breakfast, son at bedside No CP or SOB above baseline. TELE: AF, controlled. Short run 3 beats NSVT History of Present Illness: weight down - Current Medication List Current Medications: Active Medications Albuterol/Ipratropium (Duoneb -) 1 amp NEB Q4H [facility] Last Admin: 09/18/18 07:35 Dose: 1 amp Apixaban (Eliquis -) 2.5 mg PO BID [facility] Last Admin: 09/17/18 21:23 Dose: 2.5 mg Aspirin (Asa -) 81 mg PO DAILY [facility] Last Admin: 09/17/18 10:01 Dose: 81 mg Bisacodyl (Dulcolax -) 10 mg PO DAILY [facility] Last Admin: 09/17/18 10:01 Dose: 10 mg Clotrimazole (Mycelex Akilah's -) 10 mg PO 5XD [facility] Last Admin: 09/18/18 05:49 Dose: 10 mg Colchicine (Colcrys) 0.6 mg PO BID [facility] Last Admin: 09/17/18 21:23 Dose: 0.6 mg Docusate Sodium (Colace -) 100 mg PO BID [facility] Last Admin: 09/17/18 21:23 Dose: 100 mg Febuxostat (Uloric -) 40 mg PO DAILY [facility] Last Admin: 09/17/18 10:02 Dose: 40 mg Furosemide (Lasix Injection -) 100 mg IVPUSH BID@0600,1400 [facility] Guaifenesin/Codeine Phosphate (Robitussin Ac -) 5 ml PO TID PRN PRN Reason: COUGH Last Admin: 09/18/18 06:19 Dose: 5 ml Insulin Aspart (Novolog Vial Sliding Scale -) 1 vial SQ Q6H [facility]; Protocol Last Admin: 09/18/18 06:19 Dose: 4 unit Insulin Detemir (Levemir Vial) 30 units SQ DAILY@0700 [facility] Last Admin: 09/18/18 06:19 Dose: 30 units Lactulose (Cephulac (Oral Use)) 20 gm PO QID [facility] Levothyroxine Sodium (Synthroid -) 50 mcg PO DAILY@0700 [facility] Last Admin: 09/18/18 06:19 Dose: 50 mcg Magnesium Hydroxide (Milk Of Magnesia -) 30 ml PO DAILY [facility] Last Admin: 06/30/19 10:01 Dose: 30 ml Metoprolol Succinate (Toprol Xl -) 50 mg PO BID [facility] Last Admin: 09/17/18 21:23 Dose: 50 mg Polyethylene Glycol (Miralax (For Daily Use) -) 17 gm PO DAILY [facility] Last Admin: 09/17/18 10:03 Dose: 17 gm Spironolactone (Aldactone -) 25 mg PO DAILY [facility] - Objective Vital Signs: Vital Signs Temperature 97.9 F 09/18/18 06:00 Pulse Rate 77 09/18/18 06:00 Respiratory Rate 20 09/18/18 06:00 Blood Pressure 109/63 09/18/18 06:00 O2 Sat by Pulse Oximetry (%) 98 09/18/18 04:45 Constitutional: Yes: No Distress Cardiovascular: Yes: Pulse Irregular Respiratory: Yes: Other (scattered rhonchi, no rales and no active wheezing) Gastrointestinal: Yes: Soft, Abdomen, Obese Edema: No (venodynes) Labs: CBC, BMP 09/14/18 06:45 09/18/18 05:10 INR, PTT INR 1.39 (0.83-1.09) H 09/09/18 21:35 Laboratory Tests 09/14/18 09/18/18 06:45 05:10 WBC 6.7 Hgb 12.2 Plt Count 176 Sodium 137 Potassium 5.1 BUN 68.2 H Creatinine 1.9 H Calcium 8.6 - ....Imaging EKG: Image Reviewed Assessment/Plan Assessment/Plan Echo 04/2018: EF 45%, mod MR/TR, at least mild , moderate to severe PHTN Nuclear stress 2017: Pharm: small inferolat infarct, mild arlin-infarct ischemia , Overall EF 35-40% tele: afib, HRs good IMP: -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 (home regimen: torsemide 100 bid, spironolactone 25) -Chronic respiratory failure -Asbestos lung dz/ ILD, on home O2. 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 -continue spirono -NIPPV and suppl O2--on 24/7 O2 at home -Cont Eliquis adjusted for age and renal fx. Cont Metoprolol at home dose. -discussed cardiomems implant (PAP monitor) with patient son today- patient and family defer and would like to continue current medical regimen and close office follow up. -not on BETTY/ARB, EF is mid-range: has been avoided due to fluctuations in creatinine and variably depressed GFR
[2018-09-18] MEDS ORDERED: FUROSEMIDE 100 MG/10 ML INJECTABLE VIAL IVPUSH SCH (10:00)
[2018-09-18] MEDS: APIXABAN 2.5 MG TABLET PO SCH ×2 (10:30→22:06)
[2018-09-18] MEDS: COLCHICINE 0.6 MG CAP PO SCH ×2 (10:30→22:05)
[2018-09-18] MEDS: ASPIRIN 81 MG CHEWABLE TABLETS PO SCH (10:30)
[2018-09-18] MEDS: FEBUXOSTAT 40 MG TAB PO SCH (10:31)
[2018-09-18] MEDS: SPIRONOLACTONE 25 MG TABLET (FP) PO SCH (10:31)
[2018-09-18] MEDS: DOCUSATE SODIUM 100 MG CAPSULE (FP) PO SCH ×2 (10:35→22:05)
[2018-09-18] MEDS: LACTULOSE 20 GM/30 ML UDC (FOR ORAL USE ONLY) PO SCH ×4 (10:35→22:05)
[2018-09-18] MEDS: BISACODYL 5 MG TABLET.DR (FP) PO SCH (10:35)
[2018-09-18] MEDS: POLYETHYLENE GLYCOL 3350 119 GM BTL PO SCH (10:36)
[2018-09-18] MEDS: MAGNESIUM HYDROX 2400MG/30ML ORAL SUSPENSION 30 ML CUP PO SCH (10:36)
[2018-09-18] MEDS: FUROSEMIDE 100 MG/10 ML INJECTABLE VIAL IVPUSH SCH (14:37)
--- NOTE | 2018-09-18 15:12 | PN ---
Progress Note, Physician History of Present Illness: PULMONARY ALERT.LESS CONGESTED + COUGH - Current Medication List Current Medications: Active Medications Albuterol/Ipratropium (Duoneb -) 1 amp NEB Q4H REPLACED BY [facility] Last Admin: 09/18/18 11:35 Dose: 1 amp Apixaban (Eliquis -) 2.5 mg PO BID REPLACED BY [facility] Last Admin: 09/18/18 10:30 Dose: 2.5 mg Aspirin (Asa -) 81 mg PO DAILY REPLACED BY [facility] Last Admin: 09/18/18 10:30 Dose: 81 mg Bisacodyl (Dulcolax -) 10 mg PO DAILY REPLACED BY [facility] Last Admin: 09/18/18 10:35 Dose: 10 mg Clotrimazole (Mycelex Akilah's -) 10 mg PO 5XD REPLACED BY [facility] Last Admin: 09/18/18 14:37 Dose: 10 mg Colchicine (Colcrys) 0.6 mg PO BID REPLACED BY [facility] Last Admin: 09/18/18 10:30 Dose: 0.6 mg Docusate Sodium (Colace -) 100 mg PO BID REPLACED BY [facility] Last Admin: 09/18/18 10:35 Dose: 100 mg Febuxostat (Uloric -) 40 mg PO DAILY REPLACED BY [facility] Last Admin: 09/18/18 10:31 Dose: 40 mg Furosemide (Lasix Injection -) 100 mg IVPUSH BID@0600,1400 REPLACED BY [facility] Last Admin: 09/18/18 14:37 Dose: 100 mg Insulin Aspart (Novolog Vial Sliding Scale -) 1 vial SQ Q6H REPLACED BY [facility]; Protocol Last Admin: 09/18/18 12:13 Dose: 2 unit Insulin Detemir (Levemir Vial) 30 units SQ DAILY@0700 REPLACED BY [facility] Last Admin: 09/18/18 06:19 Dose: 30 units Lactulose (Cephulac (Oral Use)) 20 gm PO QID REPLACED BY [facility] Last Admin: 09/18/18 14:37 Dose: 20 gm Levothyroxine Sodium (Synthroid -) 50 mcg PO DAILY@0700 REPLACED BY [facility] Last Admin: 09/18/18 06:19 Dose: 50 mcg Magnesium Hydroxide (Milk Of Magnesia -) 30 ml PO DAILY REPLACED BY [facility] Last Admin: 09/18/18 10:36 Dose: 30 ml Metoprolol Succinate (Toprol Xl -) 50 mg PO BID REPLACED BY [facility] Last Admin: 09/18/18 10:30 Dose: 50 mg Polyethylene Glycol (Miralax (For Daily Use) -) 17 gm PO DAILY REPLACED BY [facility] Last Admin: 09/18/18 10:36 Dose: 17 gm Spironolactone (Aldactone -) 25 mg PO DAILY REPLACED BY [facility] Last Admin: 09/18/18 10:31 Dose: 25 mg - Objective Vital Signs: Vital Signs Temperature 97.6 F 09/18/18 14:10 Pulse Rate 86 09/18/18 14:10 Respiratory Rate 21 H 09/18/18 14:10 Blood Pressure 100/63 09/18/18 14:10 O2 Sat by Pulse Oximetry (%) 95 09/18/18 09:20 Constitutional: Yes: Calm, Obese Eyes: Yes: WNL HENT: Yes: WNL Neck: Yes: WNL Cardiovascular: Yes: Pulse Irregular, S1, S2 Respiratory: Yes: Rhonchi (FEW SCATTERED RHONCHI) Gastrointestinal: Yes: Normal Bowel Sounds, Soft, Abdomen, Obese Extremities: Yes: WNL Edema: No Labs: 09/18/18 05:10 INR, PTT INR 1.39 (0.83-1.09) H 09/09/18 21:35 Assessment/Plan ASSESSMENT AND PLAN: Acute on Chronic Hypoxic and Hypercapneic Respiratory Failure improving 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 Pulmonary HTN Obstructive Sleep Apnea CAD s/p CABG Atrial Fibrillation CKD DM - NIPPV support as needed - nasal O2 tolerated - lasix, aldactone - monitor urine output, creatinine - inhaled bronchodilators standing and PRN - O2 to keep SpO2 88-92% DR HERNANDEZ Problem List - Problems (1) Atrial fibrillation Code(s): I48.91 - UNSPECIFIED ATRIAL FIBRILLATION Qualifiers: Atrial fibrillation type: chronic Qualified Code(s): I48.2 - Chronic atrial fibrillation (2) CHF, acute on chronic Code(s): I50.9 - HEART FAILURE, UNSPECIFIED Qualifiers: Heart failure type: combined systolic and diastolic Qualified Code(s): I50.43 - Acute on chronic combined systolic (congestive) and diastolic ( congestive) heart failure (3) CKD (chronic kidney disease) Code(s): N18.9 - CHRONIC KIDNEY DISEASE, UNSPECIFIED (4) DM type 2 (diabetes mellitus, type 2) Code(s): E11.9 - TYPE 2 DIABETES MELLITUS WITHOUT COMPLICATIONS Qualifiers: Diabetes mellitus terminal operations supervisor insulin use: with terminal operations supervisor use Chronic kidney disease stage: stage 4 (severe) (5) ASHD (arteriosclerotic heart disease) Code(s): I25.10 - ATHSCL HEART DISEASE OF [place] CORONARY ARTERY W/O ANG PCTRS (6) Acute on chronic diastolic CHF (congestive heart failure) Code(s): I50.33 - ACUTE ON CHRONIC DIASTOLIC (CONGESTIVE) HEART FAILURE (7) Acute on chronic respiratory failure with hypoxia and hypercapnia Code(s): J96.21 - ACUTE AND CHRONIC RESPIRATORY FAILURE WITH HYPOXIA; J96.22 - ACUTE AND CHRONIC RESPIRATORY FAILURE WITH HYPERCAPNIA (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 - OTHER SPECIFIED PLEURAL CONDITIONS (9) CAD (coronary artery disease) Code(s): I25.10 - ATHSCL HEART DISEASE OF [place] CORONARY ARTERY W/O ANG PCTRS Qualifiers: Coronary Disease-Associated Artery/Lesion type: bypass graft, autologous artery Associated angina: without angina Qualified Code(s): I25.810 - Atherosclerosis of coronary artery bypass graft(s) without angina pectoris (10) HTN (hypertension) Code(s): I10 - ESSENTIAL (PRIMARY) HYPERTENSION (11) Hypoxemia Code(s): R09.02 - HYPOXEMIA (12) Pulmonary hypertension Code(s): I27.20 - PULMONARY HYPERTENSION, UNSPECIFIED (13) S/P CABG (coronary artery bypass graft) Code(s): Z95.1 - PRESENCE OF AORTOCORONARY BYPASS GRAFT (14) Sleep apnea Code(s): G47.30 - SLEEP APNEA, UNSPECIFIED Qualifiers: Sleep apnea type: unspecified type Qualified Code(s): G47.30 - Sleep apnea , unspecified
[2018-09-18] MEDS ORDERED: PT OWN MED DRAWER 7, Y5N ONE (21:57)
[2018-09-19] MEDS: ALBUTEROL SO4 2.5/IPRATROPIUM 0.5 INH SOL 3 ML VIAL.NEB. NEB SCH ×5 (03:21→20:30)
[2018-09-19] MEDS: CLOTRIMAZOLE 10 MG TROCHE (FP) PO SCH ×5 (05:55→21:26)
[2018-09-19] MEDS: FUROSEMIDE 100 MG/10 ML INJECTABLE VIAL IVPUSH SCH ×2 (05:55→13:26)
[2018-09-19] MEDS: LEVOTHYROXINE NA 50 MCG TABLET (FP) PO SCH (06:01)
[2018-09-19] MEDS: INSULIN SLIDING SCALE (NOVOLOG) 1 VIAL SQ SCH ×4 (06:26→23:49)
[2018-09-19] MEDS: INSULIN (LEVEMIR) 100 UNITS/ML UNITS SQ SCH (06:26)
[2018-09-19 07:50] LABS: BLOOD UREA NITROGEN 63.1 mg/dL (7-18); CALCIUM 8.7 mg/dL (8.5-10.1); POTASSIUM 5.5 mmol/L (3.5-5.1)
[2018-09-19] MEDS ORDERED: PT OWN MED DRAWER 7, Y5N ONE ×5 (09:42→21:25)
[2018-09-19] MEDS: COLCHICINE 0.6 MG CAP PO SCH ×2 (09:45→21:23)
[2018-09-19] MEDS: ASPIRIN 81 MG CHEWABLE TABLETS PO SCH (09:45)
[2018-09-19] MEDS: BISACODYL 5 MG TABLET.DR (FP) PO SCH (09:45)
[2018-09-19] MEDS: SPIRONOLACTONE 25 MG TABLET (FP) PO SCH (09:45)
[2018-09-19] MEDS: LACTULOSE 20 GM/30 ML UDC (FOR ORAL USE ONLY) PO SCH ×4 (09:45→21:23)
[2018-09-19] MEDS: APIXABAN 2.5 MG TABLET PO SCH ×2 (09:45→21:23)
[2018-09-19] MEDS: MAGNESIUM HYDROX 2400MG/30ML ORAL SUSPENSION 30 ML CUP PO SCH (09:45)
[2018-09-19] MEDS: DOCUSATE SODIUM 100 MG CAPSULE (FP) PO SCH ×2 (09:46→21:23)
[2018-09-19] MEDS: POLYETHYLENE GLYCOL 3350 119 GM BTL PO SCH (09:46)
[2018-09-19] MEDS: FEBUXOSTAT 40 MG TAB PO SCH (09:48)
--- NOTE | 2018-09-19 10:07 | PN ---
Progress Note (short form) - Note Progress Note: s: complains of cough, feeling congestion. no edema, cp. sob stable Current Medications Albuterol/Ipratropium (Duoneb -) 1 amp NEB Q4H [facility] Last Admin: 09/19/18 07:31 Dose: 1 amp Apixaban (Eliquis -) 2.5 mg PO BID [facility] Last Admin: 09/19/18 09:45 Dose: 2.5 mg Aspirin (Asa -) 81 mg PO DAILY [facility] Last Admin: 09/19/18 09:45 Dose: 81 mg Bisacodyl (Dulcolax -) 10 mg PO DAILY [facility] Last Admin: 09/19/18 09:45 Dose: 10 mg Clotrimazole (Mycelex Akilah's -) 10 mg PO 5XD [facility] Last Admin: 09/19/18 09:46 Dose: 10 mg Colchicine (Colcrys) 0.6 mg PO BID [facility] Last Admin: 09/19/18 09:45 Dose: 0.6 mg Docusate Sodium (Colace -) 100 mg PO BID [facility] Last Admin: 09/19/18 09:46 Dose: 100 mg Febuxostat (Uloric -) 40 mg PO DAILY [facility] Last Admin: 09/19/18 09:48 Dose: 40 mg Furosemide (Lasix Injection -) 100 mg IVPUSH BID@0600,1400 [facility] Last Admin: 09/19/18 05:55 Dose: 100 mg Guaifenesin/Codeine Phosphate (Robitussin Ac -) 5 ml PO TID PRN PRN Reason: COUGH Last Admin: 09/18/18 22:06 Dose: 5 ml Insulin Aspart (Novolog Vial Sliding Scale -) 1 vial SQ Q6H [facility]; Protocol Last Admin: 09/19/18 06:26 Dose: 2 unit Insulin Detemir (Levemir Vial) 30 units SQ DAILY@0700 [facility] Last Admin: 09/19/18 06:26 Dose: 30 units Lactulose (Cephulac (Oral Use)) 20 gm PO QID [facility] Last Admin: 09/19/18 09:45 Dose: 20 gm Levothyroxine Sodium (Synthroid -) 50 mcg PO DAILY@0700 [facility] Last Admin: 09/19/18 06:01 Dose: 50 mcg Magnesium Hydroxide (Milk Of Magnesia -) 30 ml PO DAILY [facility] Last Admin: 09/19/18 09:45 Dose: 30 ml Metoprolol Succinate (Toprol Xl -) 50 mg PO BID [facility] Last Admin: 09/19/18 09:45 Dose: 50 mg Polyethylene Glycol (Miralax (For Daily Use) -) 17 gm PO DAILY [facility] Last Admin: 09/19/18 09:46 Dose: 17 gm Spironolactone (Aldactone -) 25 mg PO DAILY [facility] Last Admin: 09/19/18 09:45 Dose: 25 mg Vital Signs Period Temp Pulse Resp BP Sys/Junior Pulse Ox Last 24 Hr 97.5 F-98.1 F 86-105 20-22 100-139/63-74 94-95 Constitutional: Yes: No Distress Cardiovascular: Yes: Pulse Irregular, no JVD Respiratory: Yes: Other (scattered rhonchi) Gastrointestinal: Yes: Soft, Abdomen, Obese Edema: no no jaundice, diaphoresis not agitated Assessment/Plan Echo 04/2018: EF 45%, mod MR/TR, at least mild , moderate to severe PHTN Nuclear stress 2017: Pharm: small inferolat infarct, mild arlin-infarct ischemia , Overall EF 35-40% tele: afib, HRs good IMP: -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 (home regimen: torsemide 100 bid, spironolactone 25) -Chronic respiratory failure -Asbestos lung dz/ ILD, on home O2. 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 continue lasix 100 mg IV BID -continue spironolactone -NIPPV and suppl O2--on 24/7 O2 at home -Cont Eliquis adjusted for age and renal fx. Cont Metoprolol at home dose. -per Dr. Starkey: discussed cardiomems implant (PAP monitor) with patient' s son - patient and family defer and would like to continue current medical regimen and close office follow up. -not on BETTY/ARB, EF is mid-range: has been avoided due to fluctuations in creatinine and variably depressed GFR
--- NOTE | 2018-09-19 11:14 | PN ---
Progress Note (short form) - Note Progress Note: PULMONARY Still with shortness of breath and cough. No chest pain. No fevers or chills. Vital Signs Period Temp Pulse Resp BP Sys/Junior Pulse Ox Last 24 Hr 97.5 F-98.1 F 86-105 20-22 100-139/63-74 94-95 Gen: NAD in chair Heart: RRR Lung: scattered rhonchi, wheezes Abd: soft, nontender Ext: no edema CBC, BMP 09/14/18 06:45 09/19/18 06:50 Active Medications Albuterol/Ipratropium (Duoneb -) 1 amp NEB RQID [facility] Apixaban (Eliquis -) 2.5 mg PO BID [facility] Last Admin: 09/19/18 09:45 Dose: 2.5 mg Aspirin (Asa -) 81 mg PO DAILY [facility] Last Admin: 09/19/18 09:45 Dose: 81 mg Bisacodyl (Dulcolax -) 10 mg PO DAILY [facility] Last Admin: 09/19/18 09:45 Dose: 10 mg Clotrimazole (Mycelex Akilah's -) 10 mg PO 5XD [facility] Last Admin: 09/19/18 09:46 Dose: 10 mg Colchicine (Colcrys) 0.6 mg PO BID [facility] Last Admin: 09/19/18 09:45 Dose: 0.6 mg Docusate Sodium (Colace -) 100 mg PO BID [facility] Last Admin: 09/19/18 09:46 Dose: 100 mg Febuxostat (Uloric -) 40 mg PO DAILY [facility] Last Admin: 09/19/18 09:48 Dose: 40 mg Furosemide (Lasix Injection -) 100 mg IVPUSH BID@0600,1400 [facility] Last Admin: 09/19/18 05:55 Dose: 100 mg Guaifenesin/Codeine Phosphate (Robitussin Ac -) 5 ml PO TID PRN PRN Reason: COUGH Last Admin: 09/18/18 22:06 Dose: 5 ml Insulin Aspart (Novolog Vial Sliding Scale -) 1 vial SQ Q6H [facility]; Protocol Last Admin: 09/19/18 06:26 Dose: 2 unit Insulin Detemir (Levemir Vial) 30 units SQ DAILY@0700 [facility] Last Admin: 09/19/18 06:26 Dose: 30 units Lactulose (Cephulac (Oral Use)) 20 gm PO QID [facility] Last Admin: 09/19/18 09:45 Dose: 20 gm Levothyroxine Sodium (Synthroid -) 50 mcg PO DAILY@0700 [facility] Last Admin: 09/19/18 06:01 Dose: 50 mcg Magnesium Hydroxide (Milk Of Magnesia -) 30 ml PO DAILY [facility] Last Admin: 09/19/18 09:45 Dose: 30 ml Metoprolol Succinate (Toprol Xl -) 50 mg PO BID [facility] Last Admin: 09/19/18 09:45 Dose: 50 mg Polyethylene Glycol (Miralax (For Daily Use) -) 17 gm PO DAILY [facility] Last Admin: 09/19/18 09:46 Dose: 17 gm Spironolactone (Aldactone -) 25 mg PO DAILY [facility] Last Admin: 09/19/18 09:45 Dose: 25 mg A/P Acute on Chronic Hypoxic and Hypercapneic Respiratory Failure improving 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 Pulmonary HTN Obstructive Sleep Apnea CAD s/p CABG Atrial Fibrillation CKD DM - will start short course of steroids 24-48hrs - inhaled bronchodilators standing and PRN - O2 to keep SpO2 >90% - continue lasix, aldactone - monitor urine output, creatinine - rate control - continue anticoagulation
[2018-09-19] MEDS ORDERED: methylPREDNISolone NA SUCC 40 MG/1 ML VIAL IVPUSH SCH (11:30)
[2018-09-19] MEDS ORDERED: METOLAZONE 2.5 MG TABLET (FP) PO ONE (12:15)
[2018-09-19] MEDS ORDERED: SODIUM POLYSTYRENE SULFONATE 15 GM/60 ML BOTTLE PO ONE (12:15)
[2018-09-19] MEDS ORDERED: methylPREDNISolone NA SUCC 40 MG/1 ML VIAL IVPUSH ONE (12:17)
--- NOTE | 2018-09-19 12:23 | PN ---
Progress Note, Physician Chief Complaint: C/o LE weakness. AMBULATES with a WALKER/PT HAD BM. SOB, COUGH History of Present Illness: Persistent left basilar atelectasis/consolidation. CABG ASHD. DM type on Levemir/Januvia. Hypothyroidism. CRI/ckd 4. 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 Previous Thoracentesis in the past-neg for malignancy. JUAN-at nights using BIPAP. Chronic A.Fib. Combined CHF. Gout. Gouty arthritis. Previous rectal surgery for abscess, fistula at [facility]. - Current Medication List Current Medications: Active Medications Albuterol/Ipratropium (Duoneb -) 1 amp NEB RQID [facility] Apixaban (Eliquis -) 2.5 mg PO BID [facility] Last Admin: 09/19/18 09:45 Dose: 2.5 mg Aspirin (Asa -) 81 mg PO DAILY [facility] Last Admin: 09/19/18 09:45 Dose: 81 mg Bisacodyl (Dulcolax -) 10 mg PO DAILY [facility] Last Admin: 09/19/18 09:45 Dose: 10 mg Clotrimazole (Mycelex Akilah's -) 10 mg PO 5XD [facility] Last Admin: 09/19/18 09:46 Dose: 10 mg Colchicine (Colcrys) 0.6 mg PO BID [facility] Last Admin: 09/19/18 09:45 Dose: 0.6 mg Docusate Sodium (Colace -) 100 mg PO BID [facility] Last Admin: 09/19/18 09:46 Dose: 100 mg Febuxostat (Uloric -) 40 mg PO DAILY [facility] Last Admin: 09/19/18 09:48 Dose: 40 mg Furosemide (Lasix Injection -) 100 mg IVPUSH BID@0600,1400 [facility] Last Admin: 09/19/18 05:55 Dose: 100 mg Guaifenesin/Codeine Phosphate (Robitussin Ac -) 5 ml PO TID PRN PRN Reason: COUGH Last Admin: 09/18/18 22:06 Dose: 5 ml Insulin Aspart (Novolog Vial Sliding Scale -) 1 vial SQ Q6H [facility]; Protocol Last Admin: 09/19/18 12:08 Dose: 2 unit Insulin Detemir (Levemir Vial) 30 units SQ DAILY@0700 [facility] Last Admin: 09/19/18 06:26 Dose: 30 units Lactulose (Cephulac (Oral Use)) 20 gm PO QID [facility] Last Admin: 09/19/18 09:45 Dose: 20 gm Levothyroxine Sodium (Synthroid -) 50 mcg PO DAILY@0700 [facility] Last Admin: 09/19/18 06:01 Dose: 50 mcg Magnesium Hydroxide (Milk Of Magnesia -) 30 ml PO DAILY [facility] Last Admin: 09/19/18 09:45 Dose: 30 ml Metoprolol Succinate (Toprol Xl -) 50 mg PO BID [facility] Last Admin: 09/19/18 09:45 Dose: 50 mg Polyethylene Glycol (Miralax (For Daily Use) -) 17 gm PO DAILY [facility] Last Admin: 09/19/18 09:46 Dose: 17 gm Spironolactone (Aldactone -) 25 mg PO DAILY [facility] Last Admin: 09/19/18 09:45 Dose: 25 mg - Objective Vital Signs: Vital Signs Temperature 97.5 F L 09/19/18 05:48 Pulse Rate 90 09/19/18 05:48 Respiratory Rate 22 H 09/19/18 09:00 Blood Pressure 139/71 09/19/18 05:48 O2 Sat by Pulse Oximetry (%) 94 L 09/19/18 10:03 Constitutional: Yes: Calm, Mild Distress, Obese Eyes: Yes: Conjunctiva Clear, EOM Intact HENT: Yes: Atraumatic, Normocephalic. No: Drooling Neck: Yes: Supple, Trachea Midline. No: Lymphadenopathy Cardiovascular: Yes: Pulse Irregular, S1, S2. No: Tachycardia Respiratory: Yes: Regular, Diminished, On Nasal O2, Rhonchi, SOB, Wheezes Gastrointestinal: Yes: Normal Bowel Sounds, Soft, Abdomen, Obese. No: Tenderness, Tenderness, Epigastrium ...Rectal Exam: Yes: Deferred Genitourinary: No: Anuria Breast(s): Yes: WNL Musculoskeletal: Yes: Muscle Weakness (LE) Extremities: No: Amputation, Calf Tenderness, Cold, Cyanosis Edema: Yes Edema: LLE: Trace, RLE: Trace Peripheral Pulses WNL: No ...Motor Strength: WNL Psychiatric: Yes: Alert, Oriented. No: Agitated, Suicidal Ideation Labs: CBC, BMP 09/14/18 06:45 09/19/18 06:50 INR, PTT INR 1.39 (0.83-1.09) H 09/09/18 21:35 Problem List - Problems (1) Atrial fibrillation Assessment/Plan: Continue Eliquis, follow on telemetry, rate control Code(s): I48.91 - UNSPECIFIED ATRIAL FIBRILLATION Qualifiers: Atrial fibrillation type: chronic Qualified Code(s): I48.2 - Chronic atrial fibrillation (2) CHF, acute on chronic Assessment/Plan: Continue IV Lasix 100 mg BID Spironolactone 25 mg QD Avoid ARB/BETTY due to stage e CKD, electrolyte imbalance. Weight decrease to 245 lbs BNP from 3000 to 1999 noted Code(s): I50.9 - HEART FAILURE, UNSPECIFIED Qualifiers: Heart failure type: combined systolic and diastolic Qualified Code(s): I50.43 - Acute on chronic combined systolic (congestive) and diastolic ( congestive) heart failure (3) CKD (chronic kidney disease) Assessment/Plan: Creat 2.0 noted. Will keep the patient dry with creat around 2. Code(s): N18.9 - CHRONIC KIDNEY DISEASE, UNSPECIFIED Qualifiers: Chronic kidney disease stage: stage 3 (moderate) Qualified Code(s): N18.3 - Chronic kidney disease, stage 3 (moderate) (4) DM type 2 (diabetes mellitus, type 2) Assessment/Plan: Continue BGM Insulin dose in the hospital adjusted for decreased PO intake. Code(s): E11.9 - TYPE 2 DIABETES MELLITUS WITHOUT COMPLICATIONS Qualifiers: Diabetes mellitus terminal system operator insulin use: with terminal system operator use Chronic kidney disease stage: stage 4 (severe) (5) Hyperkalemia Assessment/Plan: darrian give Kayexalate 30 gms PO and Zaroxolyn 2.5 PO Follow BMP in AM. Code(s): E87.5 - HYPERKALEMIA (6) Respiratory failure with hypercapnia Assessment/Plan: Continue O2/BIPAP 24 hrs of Solumedrol administered as per pulmonology Code(s): J96.92 - RESPIRATORY FAILURE, UNSPECIFIED WITH HYPERCAPNIA Qualifiers: Chronicity: acute on chronic Qualified Code(s): J96.22 - Acute and chronic respiratory failure with hypercapnia
[2018-09-19] MEDS: guaiFENesin/CODEINE 5 ML UNIT-DOSE CUPS PO PRN (12:46)
[2018-09-20] MEDS ORDERED: PT OWN MED DRAWER 7, Y5N ONE (06:09)
[2018-09-20] MEDS: LEVOTHYROXINE NA 50 MCG TABLET (FP) PO SCH (06:24)
[2018-09-20] MEDS: INSULIN SLIDING SCALE (NOVOLOG) 1 VIAL SQ SCH (06:24)
[2018-09-20] MEDS: INSULIN (LEVEMIR) 100 UNITS/ML UNITS SQ SCH (06:24)
[2018-09-20] MEDS: FUROSEMIDE 100 MG/10 ML INJECTABLE VIAL IVPUSH SCH (06:24)
[2018-09-20] MEDS: CLOTRIMAZOLE 10 MG TROCHE (FP) PO SCH ×2 (06:24→10:05)
[2018-09-20 06:41] LABS: BLOOD UREA NITROGEN 66.8 mg/dL (7-18); CALCIUM 8.6 mg/dL (8.5-10.1); CREATININE 2.3 mg/dL (0.55-1.3); POTASSIUM 4.5 mmol/L (3.5-5.1)
--- NOTE | 2018-09-20 07:59 | PN ---
Progress Note (short form) - Note Progress Note: Comfortable in bed, c/o mild cough-chronic , dry throat. Vital Signs (72 hours) 09/17/18 09/17/18 09/17/18 09:00 14:20 21:00 Temperature 97.6 F 98.2 F Pulse Rate 82 83 Respiratory 18 20 Rate Blood Pressure 142/81 113/72 O2 Sat by Pulse 95 95 Oximetry (%) 09/17/18 09/18/18 09/18/18 22:00 00:05 04:45 Temperature 97.8 F Pulse Rate 93 H Respiratory 20 Rate Blood Pressure 125/69 O2 Sat by Pulse 98 98 Oximetry (%) 09/18/18 09/18/18 09/18/18 06:00 08:00 09:20 Temperature 97.9 F 98.1 F Pulse Rate 77 74 Respiratory 20 20 Rate Blood Pressure 109/63 131/68 O2 Sat by Pulse 92 L 95 Oximetry (%) 09/18/18 09/18/18 09/18/18 14:10 17:20 21:00 Temperature 97.6 F 98.1 F Pulse Rate 86 105 H Respiratory 21 H 20 Rate Blood Pressure 100/63 112/74 O2 Sat by Pulse 95 Oximetry (%) 09/18/18 09/19/18 09/19/18 22:00 05:48 09:00 Temperature 98.0 F 97.5 F L Pulse Rate 98 H 90 Respiratory 20 20 22 H Rate Blood Pressure 120/68 139/71 O2 Sat by Pulse 94 L Oximetry (%) 09/19/18 09/19/18 09/19/18 10:00 10:03 14:00 Temperature 98.8 F 97.4 F L Pulse Rate 87 87 Respiratory 22 H 20 Rate Blood Pressure 139/76 123/71 O2 Sat by Pulse 94 L Oximetry (%) 09/19/18 09/19/18 09/19/18 15:31 18:00 21:00 Temperature 98.0 F 97.5 F L Pulse Rate 104 H 95 H Respiratory 19 20 Rate Blood Pressure 101/54 L 101/61 O2 Sat by Pulse 93 L 95 Oximetry (%) 09/19/18 09/20/18 22:30 06:00 Temperature 98.9 F Pulse Rate 114 H Respiratory 20 Rate Blood Pressure 111/71 O2 Sat by Pulse 94 L Oximetry (%) Neck-no JVD Lungs B/L BS, no rales, no rhonchi Heart S1S2 irregular Abdomen obese, soft LE-no edema Laboratory Results - last 24 hr 09/19/18 09/19/18 09/19/18 11:38 16:10 23:48 Sodium Potassium Chloride Carbon Dioxide Anion Gap BUN Creatinine Est GFR (CKD-EPI)AfAm Est GFR (CKD-EPI)NonAf POC Glucometer 198 267 375 Random Glucose Calcium 09/20/18 09/20/18 05:50 06:23 Sodium 137 Potassium 4.5 Chloride 92 L Carbon Dioxide 39 H Anion Gap 5 L BUN 66.8 H Creatinine 2.3 H Est GFR (CKD-EPI)AfAm 28.53 Est GFR (CKD-EPI)NonAf 24.61 POC Glucometer 174 Random Glucose 143 H Calcium 8.6 Current Active Problems Problem Status Onset Atrial fibrillation Acute CHF, acute on chronic Acute CKD (chronic kidney disease) Acute DM type 2 (diabetes mellitus, type 2) Acute Hyperkalemia-resolved, K 4.5 Acute Leg swelling Acute Plan D/c home F/u next week at the office Continue BIPAP Fluid restrictions Demadex PO Problem List - Problems (1) Atrial fibrillation Code(s): I48.91 - UNSPECIFIED ATRIAL FIBRILLATION Qualifiers: Atrial fibrillation type: chronic Qualified Code(s): I48.2 - Chronic atrial fibrillation (2) CHF, acute on chronic Code(s): I50.9 - HEART FAILURE, UNSPECIFIED Qualifiers: Heart failure type: combined systolic and diastolic Qualified Code(s): I50.43 - Acute on chronic combined systolic (congestive) and diastolic ( congestive) heart failure (3) CKD (chronic kidney disease) Code(s): N18.9 - CHRONIC KIDNEY DISEASE, UNSPECIFIED Qualifiers: Chronic kidney disease stage: stage 3 (moderate) Qualified Code(s): N18.3 - Chronic kidney disease, stage 3 (moderate) (4) DM type 2 (diabetes mellitus, type 2) Code(s): E11.9 - TYPE 2 DIABETES MELLITUS WITHOUT COMPLICATIONS Qualifiers: Diabetes mellitus manager terminal insulin use: with jail use Chronic kidney disease stage: stage 4 (severe) (5) Hyperkalemia Code(s): E87.5 - HYPERKALEMIA (6) Respiratory failure with hypercapnia Code(s): J96.92 - RESPIRATORY FAILURE, UNSPECIFIED WITH HYPERCAPNIA Qualifiers: Chronicity: acute on chronic Qualified Code(s): J96.22 - Acute and chronic respiratory failure with hypercapnia
--- NOTE | 2018-09-20 08:01 | DS ---
Physical Examination Vital Signs: Vital Signs Temperature 98.9 F 09/20/18 06:00 Pulse Rate 114 H 09/20/18 06:00 Respiratory Rate 20 09/20/18 06:00 Blood Pressure 111/71 09/20/18 06:00 O2 Sat by Pulse Oximetry (%) 94 L 09/19/18 22:30 Constitutional: Yes: No Distress, Calm Eyes: Yes: Conjunctiva Clear, EOM Intact HENT: Yes: Atraumatic, Normocephalic Neck: Yes: Supple, Trachea Midline Cardiovascular: Yes: Pulse Irregular Respiratory: Yes: Regular, On Nasal O2 Gastrointestinal: Yes: Normal Bowel Sounds, Soft, Abdomen, Obese ...Rectal Exam: Yes: Deferred Renal/: No: Anuria Breast(s): Yes: WNL Musculoskeletal: Yes: Muscle Weakness (LE) Extremities: Yes: Internal Rotation Integumentary: Yes: WNL ...Motor Strength: WNL Psychiatric: Yes: WNL Labs: CBC, BMP 09/14/18 06:45 09/20/18 05:50 Discharge Summary Reason For Visit: RESPIRATORY&HEART FAILURE/RENAL INJURY/HYPERCAPNIA Current Active Problems Atrial fibrillation (Acute) CHF, acute on chronic (Acute) CKD (chronic kidney disease) (Acute) DM type 2 (diabetes mellitus, type 2) (Acute) Hyperkalemia (Acute) Leg swelling (Acute) Condition: Improved - Instructions Diet, Activity, Other Instructions: Fluid restriction 1200 cc/day Disposition: HOME - Home Medications Comprehensive Discharge Medication List: Ambulatory Orders Sitagliptin Phosphate [Januvia -] 25 mg PO DAILY@0700 #90 tab 10/14/14 Spironolactone [Aldactone -] 25 mg PO DAILY #30 tablet 03/31/17 Aspirin 81 mg PO DAILY 04/10/17 Insulin Glargine,Hum.rec.anlog [Lantus] 60 unit SQ DAILY 04/10/17 Febuxostat [Uloric] 40 mg PO DAILY 02/20/18 Levothyroxine [Synthroid -] 0.05 mg PO DAILY 02/20/18 Linaclotide [Linzess] 290 mcg PO DAILY 02/20/18 Metoprolol Succinate [Toprol Xl] 50 mg PO BID 02/20/18 Apixaban [Eliquis -] 2.5 mg PO BID 03/30/18 Colchicine [Mitigare] 0.6 mg PO BID 04/10/18 Torsemide 100 mg PO BID 05/19/18
[2018-09-20] MEDS: ALBUTEROL SO4 2.5/IPRATROPIUM 0.5 INH SOL 3 ML VIAL.NEB. NEB SCH (09:40)
[2018-09-20] MEDS: SPIRONOLACTONE 25 MG TABLET (FP) PO SCH (10:04)
[2018-09-20] MEDS: DOCUSATE SODIUM 100 MG CAPSULE (FP) PO SCH (10:04)
[2018-09-20] MEDS: MAGNESIUM HYDROX 2400MG/30ML ORAL SUSPENSION 30 ML CUP PO SCH (10:04)
[2018-09-20] MEDS: BISACODYL 5 MG TABLET.DR (FP) PO SCH (10:04)
[2018-09-20] MEDS: ASPIRIN 81 MG CHEWABLE TABLETS PO SCH (10:04)
[2018-09-20] MEDS: APIXABAN 2.5 MG TABLET PO SCH (10:04)
[2018-09-20] MEDS: COLCHICINE 0.6 MG CAP PO SCH (10:04)
[2018-09-20] MEDS: POLYETHYLENE GLYCOL 3350 119 GM BTL PO SCH (10:05)
[2018-09-20] MEDS: FEBUXOSTAT 40 MG TAB PO SCH (10:05)
[2018-09-20] MEDS: LACTULOSE 20 GM/30 ML UDC (FOR ORAL USE ONLY) PO SCH (10:06)
[2018-09-20 11:38] VITALS: BP 98/62; PULSE 88; TEMP 97.6
== END 2018-09-20 11:11 | disposition home health service (06) | DRG 291 ==
LOC: JER 20:52 → JERBED 22:43 → JICU 09-10 00:53 → J4S 09-13 18:23
PROVIDERS: ADMIT Internal Medicine; ATTEND Internal Medicine
PROC: 5A09457 Assistance with Respiratory Ventilation, 24-96 Consecutive Hours, Continuous Positive Airway Pressure (ICD-10-PCS; principal; 2018-09-09)
PROC: 05HM33Z Insertion of Infusion Device into Right Internal Jugular Vein, Percutaneous Approach (ICD-10-PCS; 2018-09-09)
PROC: B543ZZA Ultrasonography of Right Jugular Veins, Guidance (ICD-10-PCS; 2018-09-09)
PROC: 0T9B70Z Drainage of Bladder with Drainage Device, Via Natural or Artificial Opening (ICD-10-PCS; 2018-09-09)
DX: I13.0 Hypertensive heart and chronic kidney disease with heart failure and stage 1 through stage 4 chronic kidney disease, or unspecified chronic kidney disease (principal); J96.21 Acute and chronic respiratory failure with hypoxia; J96.22 Acute and chronic respiratory failure with hypercapnia; I50.43 Acute on chronic combined systolic (congestive) and diastolic (congestive) heart failure; N18.4 Chronic kidney disease, stage 4 (severe); I47.1 Supraventricular tachycardia; J84.9 Interstitial pulmonary disease, unspecified; J98.11 Atelectasis; B37.0 Candidal stomatitis; N17.9 Acute kidney failure, unspecified; N18.9 Chronic kidney disease, unspecified; E11.22 Type 2 diabetes mellitus with diabetic chronic kidney disease; E11.649 Type 2 diabetes mellitus with hypoglycemia without coma; I48.2 Chronic atrial fibrillation; R33.9 Retention of urine, unspecified; G47.33 Obstructive sleep apnea (adult) (pediatric); I35.0 Nonrheumatic aortic (valve) stenosis; E87.5 Hyperkalemia; I27.20 Pulmonary hypertension, unspecified; I36.1 Nonrheumatic tricuspid (valve) insufficiency; I34.0 Nonrheumatic mitral (valve) insufficiency; E03.9 Hypothyroidism, unspecified; Z79.4 Long term (current) use of insulin; I25.10 Atherosclerotic heart disease of native coronary artery without angina pectoris; Z95.1 Presence of aortocoronary bypass graft; J98.4 Other disorders of lung; Z90.5 Acquired absence of kidney; J44.9 Chronic obstructive pulmonary disease, unspecified; M10.072 Idiopathic gout, left ankle and foot; M10.071 Idiopathic gout, right ankle and foot; E66.9 Obesity, unspecified; E78.00 Pure hypercholesterolemia, unspecified; Z87.891 Personal history of nicotine dependence; N40.0 Benign prostatic hyperplasia without lower urinary tract symptoms; Z68.36 Body mass index [BMI] 36.0-36.9, adult; Z77.090 Contact with and (suspected) exposure to asbestos; Z79.84 Long term (current) use of oral hypoglycemic drugs
CPT/HCPCS: 36415; 36600; 71045-TC-FY; 80048; 80053; 81003; 82375; 82803; 82962; 83050; 83605; 83735; 83880; 84100; 84484; 85025; 85027; 85610; 85730; 87086; 93005; 93010; 94640; 94660; 97116-GP; 97161-GP; 99285-25; J1250

== ENCOUNTER 2018-10-27 11:21 | Observation (INO) | payer OTHER ==
--- NOTE | 2018-10-27 11:52 | PDOC ---
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 Pt is accompanied by his son, who states the pts saw him have generalized shaking and drooling for a few minutes, with subsequent confusion. The pt has had recent "shaking episodes" but has not had LOC per family, except for last night. Pt walks with a walker at baseline, and has not required additional home O2. Pt denies any recent fevers/chills, headache, vision changes, chest pain, palpitations, SOB, nausea/vomiting, abdominal pain, urinary symptoms, diarrhea/constipation, or leg swelling. Allergies: NKDA PCP: Pradip Brady: Shayan Cards: Lalito Social: Pt denies any cigarette, alcohol, or drug use. Pt denies any recent travel or sick contacts. Surgical: as above. Family: no relevant history. 10/27/18 13:22 Past History - Travel Traveled outside of the country in the last 30 days: No Close contact w/someone who was outside of country & ill: No - Past Medical History Allergies/Adverse Reactions: Allergies Allergy/AdvReac Type Severity Reaction Status Date / Time No Known Allergies Allergy Verified 09/09/18 20:55 Home Medications: Ambulatory Orders Sitagliptin Phosphate [Januvia -] 25 mg PO DAILY@0700 #90 tab 10/14/14 Spironolactone [Aldactone -] 25 mg PO DAILY #30 tablet 03/31/17 Aspirin 81 mg PO DAILY 04/10/17 Insulin Glargine,Hum.rec.anlog [Lantus] 60 unit SQ DAILY 04/10/17 Febuxostat [Uloric] 40 mg PO DAILY 02/20/18 Levothyroxine [Synthroid -] 0.05 mg PO DAILY 02/20/18 Linaclotide [Linzess] 290 mcg PO DAILY 02/20/18 Metoprolol Succinate [Toprol Xl] 50 mg PO BID 02/20/18 Apixaban [Eliquis -] 2.5 mg PO BID 03/30/18 Colchicine [Mitigare] 0.6 mg PO BID 04/10/18 Torsemide 100 mg PO BID 05/19/18 Pramipexole Dihydrochloride [Mirapex -] 0.25 mg PO DAILY 10/27/18 Anemia: No Asthma: No Cancer: No Cardiac Disorders: Yes (Atrial Fib, CAD, CABG, aortic stenosis) CVA: No COPD: Yes CHF: Yes Dementia: Yes (mild) Diabetes: Yes GI Disorders: Yes (ulcerative colitis) Disorders: Yes (bph) HTN: Yes Hypercholesterolemia: Yes Liver Disease: No Seizures: No Thyroid Disease: No Lung CA: No (MESOTHELIOMA) - Surgical History Abdominal Surgery: No Appendectomy: No Cardiac Surgery: Yes (CABG) Cholecystectomy: No Lung Surgery: No Neurologic Surgery: No Orthopedic Surgery: No - Immunization History Immunization Up to Date: Yes - Suicide/Smoking/Psychosocial Hx Smoking History: Unknown if ever smoked Have you smoked in the past 12 months: No If you are a former smoker, when did you quit?: 30 YRS AGO Hx Alcohol Use: No Drug/Substance Use Hx: No Substance Use Type: None Hx Substance Use Treatment: No Review of Systems - Review of Systems Able to Perform ROS?: Yes Is the patient limited Estonian proficient: No Constitutional: Yes: Weight Stable. No: Chills, Diaphoresis, Fever, Loss of Appetite, Malaise, Night Sweats, Weakness HEENTM: No: Blurred Vision, Double Vision, Nose Congestion, Throat Pain, Throat Swelling, Difficulty Swallowing Respiratory: No: Cough, Orthopnea, Shortness of Breath, Productive cough, Hemoptysis Cardiac (ROS): No: Chest Pain, Edema, Irregular Heart Rate, Lightheadedness, Palpitations, Syncope, Chest Tightness ABD/GI: No: Constipated, Diarrhea, Nausea, Poor Appetite, Poor Fluid Intake, Vomiting, Abdominal cramping : No: Burning, Dysuria, Frequency, Pain, Urgency Musculoskeletal: No: Back Pain, Joint Pain, Muscle Pain, Muscle Weakness Integumentary: No: Rash Neurological: Yes: Seizure. No: Headache, Numbness, Paresthesia, Weakness, Unsteady Gait, Ataxia, Dizziness Psychiatric: No: Sleep Pattern Change, Change in Appetite Endocrine: No: Increased Urine, Change in Weight Hematologic/Lymphatic: No: Anemia, Blood Clots, Easy Bleeding, Easy Bruising All Other Systems: Reviewed and Negative *Physical Exam - Vital Signs Last Vital Signs Temp Pulse Resp BP Pulse Ox 98.5 F 72 19 116/62 100 10/27/18 11:29 10/27/18 11:29 10/27/18 11:29 10/27/18 11:29 10/27/18 11:29 - Physical Exam Comments: Vitals stable, pt afebrile. Pt in NAD, morbidly obese body habitus. Pt alert and oriented x3. lighting engineer generally intact, muscular strength and sensation intact. Cerebellar exam WNL. No midline spinal tenderness, step-offs, or crepitus. Head normocephalic, atraumatic. Eyes PERRLA, EOMI. Oropharynx without erythema or exudates, no LAD b/l. No nasal congestion, hearing intact. Clear heart sounds, S1/S2, no JVD, b/l pedal edema, or heart murmur. Clear lung sounds, no respiratory distress, wheezes, crackles, or accessory muscle use. No abdominal or CVA tenderness to palpation, no rebound, no guarding. Abdomen soft, protuberant, and with normoactive bowel sounds. Skin without jaundice or rash. 10/27/18 13:20 ED Treatment Course - LABORATORY CBC & Chemistry Diagram: 10/27/18 12:10 10/27/18 12:10 Medical Decision Making - Medical Decision Making Pt was seen at bedside, also will be seen by attending Dr. Mckay. Pt presenting from home for seizure vs syncopal episode, with multiple recent "shaking episodes". Work-up for infectious (UTI) vs ACS vs head bleed/mass vs electrolyte abnormalities. Provided albuterol nebulizer for improvement of breathing. Will continue to reassess pt and monitor for symptomatic improvement. ECG: Afib (HR 61, QRS 116, QTc 455). No TWIs or significant ST segment changes. No significant changes from prior ECG. CBC WNL CMP at pts baseline (chronic CO2 retention) Coags WNL Chest x-ray and head CT showed no acute pathology. Paged Dr. Moseley's office for admission. 10/27/18 13:[address] Moseley, neuro consultation placed. Pt admitted for observation syncope vs seizure. Pt stable and lying comfortably. 10/27/18 14:02 *DC/Admit/Observation/Transfer Diagnosis at time of Disposition: Seizure Syncope Qualifiers: Syncope type: unspecified Qualified Code(s): R55 - Syncope and collapse Atrial fibrillation Qualifiers: Atrial fibrillation type: chronic Qualified Code(s): I48.2 - Chronic atrial fibrillation - Discharge Dispostion Condition at time of disposition: Stable Decision to Admit order: Yes - Referrals Referrals: Sunil Moseley MD [Primary Care Provider] - - Patient Instructions - Post Discharge Activity
[2018-10-27] MEDS ORDERED: ALBUTEROL SO4 0.083% IH SOL 2.5 MG/3 ML VIAL.NEB. NEB ONE ×2 (12:21→12:32)
[2018-10-27 12:42] LABS: PH,URINE 7.5 (5.0-8.0); URINE APPEARANCE CLEAR; URINE BILIRUBIN NEGATIVE (NEGATIVE); URINE COLOR YELLOW; URINE GLUCOSE (UA) NEGATIVE (NEGATIVE); URINE KETONE NEGATIVE (NEGATIVE); URINE LEUK ESTERASE NEGATIVE (NEGATIVE); URINE NITRITE NEGATIVE (NEGATIVE); URINE PROTEIN NEGATIVE (NEGATIVE); URINE UROBILINOGEN 0.2 mg/dL (0.2-1.0)
[2018-10-27 12:44] LABS: INR 1.13 (0.83-1.09); PROTHROMBIN TIME (PATIENT) 13.4 SEC (9.7-13.0)
[2018-10-27 12:47] LABS: ACTIVATED PTT 31.9 SECONDS (25.2-36.5)
[2018-10-27 13:00] LABS: ALBUMIN 3.4 g/dl (3.4-5.0); ALK PHOS 79 U/L (45-117); ANION GAP 5 MMOL/L (8-16); BILIRUBIN,TOTAL 0.4 mg/dL (0.2-1); BLOOD UREA NITROGEN 62.9 mg/dL (7-18); CALCIUM 8.6 mg/dL (8.5-10.1); CHLORIDE 89 mmol/L (98-107); CO2 > 45 mmol/L (21-32); CREATININE 1.9 mg/dL (0.55-1.3); GLUCOSE,RANDOM 209 mg/dL (74-106); POTASSIUM 3.6 mmol/L (3.5-5.1); SGOT/AST 23 U/L (15-37); SGPT/ALT 36 U/L (13-61); SODIUM 138 mmol/L (136-145); TOT PROT 6.6 g/dl (6.4-8.2)
[2018-10-27 13:15] LABS: BASO % 1.2 % (0-2.0); EOS % 2.7 % (0-4.5); HEMATOCRIT 37.5 % (35.4-49); HEMOGLOBIN 12.5 GM/dL (11.7-16.9); LYMPH % 23.7 % (8-40); MCH 30.1 pg (25.7-33.7); MCHC 33.4 g/dl (32.0-35.9); MEAN CELL VOLUME 90.2 fl (80-96); MEAN PLT VOLUME 8.7 fl (7.5-11.1); NEUT % 60.4 % (42.8-82.8); PLATELET COUNT 198 K/MM3 (134-434); RBC 4.15 M/mm3 (4.00-5.60); WHITE BLOOD COUNT 7.2 K/mm3 (4.0-10.0)
--- NOTE | 2018-10-27 13:32 | PDOC ---
Documentation entered by Eunice Marin SCRIBE, acting as scribe for Camelia Mckay MD. Camelia Mckay MD: This documentation has been prepared by the Tomas leal Xhesika, SCRIBE, under my direction and personally reviewed by me in its entirety. I confirm that the documentation accurately reflects all work, treatment, procedures, and medical decision making performed by me. 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 Son at bedside states the patient's noticed the patient shaking , eyes rolled back, and started drooling which lasted a few minutes before self resolving. Pt denies LOC. Pt notes he walk with a walker at baseline. The patient denies chest pain, shortness of breath, headache and dizziness. Denies fever, chills, cough, nausea, vomiting, diarrhea and constipation. Denies dysuria, frequency, urgency and hematuria. Allergies: NKA Past surgical history: As per resident note. Social history: None reported. PCP: Sunil Barrow - Physicial Exam PE: GENERAL: Awake, alert, and fully oriented, in no acute distress HEAD: No signs of trauma EYES: PERRLA, EOMI, sclera anicteric, conjunctiva clear ENT: Auricles normal inspection, hearing grossly normal, nares patent, oropharynx clear without exudates. Moist mucosa NECK: Normal ROM, supple, no lymphadenopathy, JVD, or masses LUNGS: Breath sounds equal, clear to auscultation bilaterally. No wheezes, and no crackles HEART: Regular rate and rhythm, normal S1 and S2, no murmurs, rubs or gallops ABDOMEN: Soft, nontender, normoactive bowel sounds. No guarding, no rebound. No masses EXTREMITIES: Normal range of motion, no edema. No clubbing or cyanosis. No cords, erythema, or tenderness NEUROLOGICAL: Cranial nerves II through XII grossly intact. Normal speech. Motor and sensation intact SKIN: Warm, dry, normal turgor, no rashes or lesions noted. - Medical Decision Making 10/27/18 12:23 Pt with suspected seizure at home. He is on AC as an outpatient. Will obtain labs, CTH to further work up. Likely admission- if this is seizure, it is new onset. There is alternatively possibility of arrhythmia that caused his symptoms. Will place on tele.
--- NOTE | 2018-10-27 16:22 | HP ---
Admitting History and Physical - Admission Chief Complaint: 88 Y.O m WAS bibems FROM HOME AFTER HIS OBSERVED SEIZURES LAST NIGHT WITH SHAKING OF THE WHOLE BODY, SHAKING ARMS, ROLLING EYES AND UNRESPONSIVENES,. tHE PATIENT HAD MULTIPLE VISITS TO [facility] AND IS KNOWN TO HAVE SHAKING MOVEMENTS OF HIS UE BUT HE NEVER HAD SEAZURES. IN THE ER AWAKE, ALERT, BASELINE MENTAL STATUS, CT BRAIN NEGATIVE FOR BLEED. History of Present Illness: Cronic hypercarbic respiratory failure. at night bipap 15/8 Persistent 6.7cm left basilar atelectasis/consolidation. CABG ASHD. DM type on Levemir/Januvia. CRI/ckd 4. 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 Previous Thoracentesis in the past-neg for malignancy. JUAN-at nights using CPAP. Chronic A.Fib. Combined CHF. Gout. Gouty arthritis. Previous rectal surgery for abscess, fistula at [facility]. 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 History of Recent Travel: No Home Medications - Allergies Allergies/Adverse Reactions: Allergies Allergy/AdvReac Type Severity Reaction Status Date / Time No Known Allergies Allergy Verified 09/09/18 20:55 - Home Medications Home Medications: Ambulatory Orders Sitagliptin Phosphate [Januvia -] 25 mg PO DAILY@0700 #90 tab 10/14/14 Spironolactone [Aldactone -] 25 mg PO DAILY #30 tablet 03/31/17 Aspirin 81 mg PO DAILY 04/10/17 Insulin Glargine,Hum.rec.anlog [Lantus] 60 unit SQ DAILY 04/10/17 Febuxostat [Uloric] 40 mg PO DAILY 02/20/18 Levothyroxine [Synthroid -] 0.05 mg PO DAILY 02/20/18 Linaclotide [Linzess] 290 mcg PO DAILY 02/20/18 Metoprolol Succinate [Toprol Xl] 50 mg PO BID 02/20/18 Apixaban [Eliquis -] 2.5 mg PO BID 03/30/18 Colchicine [Mitigare] 0.6 mg PO BID 04/10/18 Torsemide 100 mg PO BID 05/19/18 Pramipexole Dihydrochloride [Mirapex -] 0.25 mg PO DAILY 10/27/18 Family Disease History - Family Disease History Family History: Unremarkable Review of Systems - Review of Systems Constitutional: denies: Chills, Diaphoresis Eyes: denies: Blind Spots, Blurred Vision HENT: reports: Difficult Swallowing. denies: Ear Discharge, Gingival Bleeding, Ocular Prosthesis, Throat Pain Neck: denies: Decreased ROM, Lumps, Pain on Movement, Stiffness Cardiovascular: reports: Edema, Shortness of Breath. denies: Chest Pain Respiratory: reports: Cough, Exercise Intolerance, Snoring, SOB, SOB on Exertion. denies: Hemoptysis, Orthopnea, Wheezing Gastrointestinal: reports: Constipation. denies: Abdominal Pain, Bloating, Indigestion, Melena, Vomiting Blood Genitourinary: reports: No Symptoms Breasts: reports: No Symptoms Reported Musculoskeletal: reports: Muscle Pain (le) Integumentary: reports: No Symptoms Neurological: denies: Change in Speech, Confusion, Dizziness Endocrine: reports: Increased Thirst. denies: Excessive Sweating, Flushing, Increased Hunger Hematology/Lymphatic: reports: No Symptoms Psychiatric: reports: Altered Sleep Pattern. denies: Anxiety, Depression, Hallucinations, Panic, Paranoia, Suicidal Physical Examination Vital Signs: Vital Signs Temperature 98.7 F 10/27/18 14:36 Pulse Rate 87 10/27/18 14:36 Respiratory Rate 22 H 10/27/18 14:36 Blood Pressure 124/56 L 10/27/18 14:36 O2 Sat by Pulse Oximetry (%) 94 L 10/27/18 14:36 Constitutional: Yes: No Distress, Calm Eyes: Yes: Conjunctiva Clear, EOM Intact HENT: Yes: Atraumatic, Normocephalic. No: Drooling Neck: Yes: Supple, Trachea Midline. No: Lymphadenopathy Cardiovascular: Yes: Pulse Irregular, S1, S2 Respiratory: Yes: Regular, CTA Bilaterally Gastrointestinal: Yes: Normal Bowel Sounds, Soft, Abdomen, Obese. No: Palpable Mass, Tenderness, Tenderness, Epigastrium ...Rectal Exam: Yes: Deferred Renal/: No: Anuria, Bladder Distention, CVA Tenderness - Left, CVA Tenderness - Right Breast(s): Yes: WNL Musculoskeletal: Yes: WNL Extremities: No: Amputation, Calf Tenderness, Cold Edema: Yes Edema: LLE: 1+, RLE: 1+ Peripheral Pulses WNL: No Peripheral Pulses: Left Doralis Pedis: 1+, Right Dorsalis Pedis: 1+ Integumentary: Yes: WNL Neurological: Yes: Alert, Oriented, Other (confederated salish) Psychiatric: Yes: WNL, Alert, Oriented. No: Agitated, Suicidal Ideation Labs: CBC, BMP 10/27/18 12:10 10/27/18 12:10 Imaging - Results Chest X-ray: Report Reviewed Cat Scan: Report Reviewed Problem List - Problems (1) Atrial fibrillation Assessment/Plan: ON ELIQUIS FOR A.FIB HOLD ELIQUIS FOR 24 HRS AND RESTART IF NO SEIZURES Code(s): I48.91 - UNSPECIFIED ATRIAL FIBRILLATION Qualifiers: Atrial fibrillation type: chronic Qualified Code(s): I48.2 - Chronic atrial fibrillation (2) Seizure Assessment/Plan: OBSERVE IN TELEMETRY, SEIZURE VS SYNCOPE? VS HYPOGLYCEMIA, VS ARRHYTHMIA NEURO CONSULT Code(s): R56.9 - UNSPECIFIED CONVULSIONS (3) Acute on chronic diastolic CHF (congestive heart failure) Assessment/Plan: CONTINUE tORSEMIDE, SPIRONOLACTONE PO fLUID RESTRICTION 1200 LOW SALT DIET Code(s): I50.33 - ACUTE ON CHRONIC DIASTOLIC (CONGESTIVE) HEART FAILURE (4) Respiratory failure with hypercapnia Assessment/Plan: o2 2 L/MIN AND BIPAP 15/8 Code(s): J96.92 - RESPIRATORY FAILURE, UNSPECIFIED WITH HYPERCAPNIA Qualifiers: Chronicity: acute on chronic Qualified Code(s): J96.22 - Acute and chronic respiratory failure with hypercapnia (5) CKD (chronic kidney disease) Assessment/Plan: fOLLOW bun/cR Code(s): N18.9 - CHRONIC KIDNEY DISEASE, UNSPECIFIED Qualifiers: Chronic kidney disease stage: stage 3 (moderate) Qualified Code(s): N18.3 - Chronic kidney disease, stage 3 (moderate) (6) DM type 2 (diabetes mellitus, type 2) Assessment/Plan: cONTINUE LEVEMIR, NOVOLOG SCALE, FOLLOW BGM Code(s): E11.9 - TYPE 2 DIABETES MELLITUS WITHOUT COMPLICATIONS Qualifiers: Diabetes mellitus penitentiary insulin use: with penitentiary use Chronic kidney disease stage: stage 4 (severe)
[2018-10-27] MEDS ORDERED: ALBUTEROL SO4 2.5/IPRATROPIUM 0.5 INH SOL 3 ML VIAL.NEB. NEB PRN (16:59)
[2018-10-27] MEDS: INSULIN SLIDING SCALE (NOVOLOG) 1 VIAL SQ SCH ×2 (17:23→23:15)
[2018-10-27] MEDS ORDERED: APIXABAN 2.5 MG TABLET PO SCH (22:00)
[2018-10-27] MEDS ORDERED: INSULIN (LEVEMIR) 100 UNITS/ML UNITS SQ ONE (22:54)
[2018-10-27] MEDS ORDERED: APIXABAN 5 MG TABLET PO ONE (22:54)
[2018-10-27] MEDS ORDERED: COLCHICINE 0.6 MG CAP ONE (22:54)
[2018-10-27] MEDS ORDERED: INSULIN (NOVOLOG) ASPART 100 UNITS/ML 10ML VIAL ONE ×2 (22:55→23:02)
[2018-10-27] MEDS ORDERED: INSULIN REGULAR HUMAN 100 UNITS/ML *VIAL ONE (22:56)
[2018-10-27] MEDS: INSULIN (LEVEMIR) 100 UNITS/ML UNITS SQ SCH (23:14)
[2018-10-27] MEDS: COLCHICINE 0.6 MG CAP PO SCH (23:14)
[2018-10-27] MEDS: POLYETHYLENE GLYCOL 3350 119 GM BTL PO SCH (23:14)
[2018-10-28] MEDS ORDERED: ACETAMINOPHEN 325 MG TABLET (FP) ONE (03:27)
[2018-10-28] MEDS: TORSEMIDE 100 MG TABLET PO SCH ×2 (06:38→14:13)
[2018-10-28] MEDS: INSULIN SLIDING SCALE (NOVOLOG) 1 VIAL SQ SCH ×4 (06:38→21:27)
[2018-10-28] MEDS: LEVOTHYROXINE NA 50 MCG TABLET (FP) PO SCH (06:38)
[2018-10-28 07:02] LABS: ALBUMIN 3.5 g/dl (3.4-5.0); BILIRUBIN,TOTAL 0.6 mg/dL (0.2-1); BLOOD UREA NITROGEN 68.1 mg/dL (7-18); CALCIUM 9.2 mg/dL (8.5-10.1); CREATININE 2.1 mg/dL (0.55-1.3); MAGNESIUM 2.3 mg/dL (1.8-2.4); POTASSIUM 3.3 mmol/L (3.5-5.1); TOT PROT 6.6 g/dl (6.4-8.2)
[2018-10-28] MEDS ORDERED: POTASSIUM CHLORIDE TABS 20 MEQ TABLET.ER (FP) PO ONE ×2 (07:27→09:24)
[2018-10-28 07:37] LABS: EOS % 2.4 % (0-4.5); HEMATOCRIT 39.1 % (35.4-49); HEMOGLOBIN 13.2 GM/dL (11.7-16.9); LYMPH % 25.2 % (8-40); MCH 30.2 pg (25.7-33.7); MCHC 33.7 g/dl (32.0-35.9); MEAN CELL VOLUME 89.7 fl (80-96); MEAN PLT VOLUME 8.6 fl (7.5-11.1); MONO % 11.2 % (3.8-10.2); NEUT % 60.2 % (42.8-82.8); PLATELET COUNT 189 K/MM3 (134-434); RBC 4.36 M/mm3 (4.00-5.60); RDW 18.7 % (11.9-15.9); WHITE BLOOD COUNT 8.8 K/mm3 (4.0-10.0)
--- NOTE | 2018-10-28 09:03 | CON.CARD ---
Consult Consult Specialty:: Cardiology Referred by:: Dr. Moseley Reason for Consultation:: Seizure vs arrhythmia - History of Present Illness Chief Complaint: Seizure at home History of Present Illness: Well known to me from office and prior admissions. PMH is sig for: chronic respiratory failure, PNA Asbestos lung dz/ ILD JUAN Acute on chronic sytolic CHF, EF 45% Chronic AF CAD s/p CABG PHTN CKD bibems FROM HOME AFTER HIS OBSERVED SEIZURES LAST NIGHT WITH SHAKING OF THE WHOLE BODY, SHAKING ARMS, ROLLING EYES AND UNRESPONSIVENES,. tHE PATIENT HAD MULTIPLE VISITS TO [facility] AND IS KNOWN TO HAVE SHAKING MOVEMENTS OF HIS UE BUT HE NEVER HAD SEIZURES. IN THE ER AWAKE, ALERT, BASELINE MENTAL STATUS, CT BRAIN NEGATIVE FOR BLEED. This AM he is sitting in chair, eating. Denies CP or SOB, palps, No sig increase in edema. Son states he seems to be at baseline. Afebrile, initially in ER with soft BP, now improved. EKG: AF 61bpm, no acute changes. Head CT negative for acute pathology. 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 History of Recent Travel: No Home Medications - Allergies Allergies/Adverse Reactions: Allergies Allergy/AdvReac Type Severity Reaction Status Date / Time No Known Allergies Allergy Verified 09/09/18 20:55 - Home Medications Home Medications: Ambulatory Orders Sitagliptin Phosphate [Januvia -] 25 mg PO DAILY@0700 #90 tab 10/14/14 Spironolactone [Aldactone -] 25 mg PO DAILY #30 tablet 03/31/17 Aspirin 81 mg PO DAILY 04/10/17 Insulin Glargine,Hum.rec.anlog [Lantus] 60 unit SQ DAILY 04/10/17 Febuxostat [Uloric] 40 mg PO DAILY 02/20/18 Levothyroxine [Synthroid -] 0.05 mg PO DAILY 02/20/18 Linaclotide [Linzess] 290 mcg PO DAILY 02/20/18 Metoprolol Succinate [Toprol Xl] 50 mg PO BID 02/20/18 Apixaban [Eliquis -] 2.5 mg PO BID 03/30/18 Colchicine [Mitigare] 0.6 mg PO BID 04/10/18 Torsemide 100 mg PO BID 05/19/18 Pramipexole Dihydrochloride [Mirapex -] 0.25 mg PO DAILY 10/27/18 Family Disease History - Family Disease History Family History: Unremarkable Review of Systems Findings/Remarks: see HPI - Review of Systems Constitutional: reports: No Symptoms Eyes: reports: No Symptoms HENT: reports: No Symptoms Cardiovascular: reports: Shortness of Breath Respiratory: reports: Exercise Intolerance, Orthopnea Gastrointestinal: reports: No Symptoms Genitourinary: reports: No Symptoms Breasts: reports: No Symptoms Reported Musculoskeletal: reports: No Symptoms Integumentary: reports: No Symptoms Neurological: reports: Seizure Endocrine: denies: No Symptoms, Excessive Sweating, Flushing, Increased Hunger, Increased Thirst, Intolerance to Cold, Intolerance to Heat, Unexplained Weight Gain, Unexplained Weight Loss, Other Hematology/Lymphatic: denies: No Symptoms, Easily Bruised, Excessive Bleeding, Swollen Glands, Other - Risk Factors Known Risk Factors: Yes: Diabetes Mellitus, Other (Known CAD) Vital Signs: Vital Signs Temperature 97.9 F 10/28/18 06:39 Pulse Rate 89 10/28/18 08:52 Respiratory Rate 16 10/28/18 08:52 Blood Pressure 109/70 10/28/18 08:52 O2 Sat by Pulse Oximetry (%) 97 10/28/18 08:52 Constitutional: Yes: No Distress, Calm Eyes: Yes: Conjunctiva Clear, EOM Intact Respiratory: Yes: Other (decreased breath sounds and rhonchi) Gastrointestinal: Yes: Soft, Abdomen, Obese Cardiovascular: Yes: Pulse Irregular JVD: No Carotid Bruit: No PMI: Non-Displaced Heart Sounds: Yes: S1, S2 (irregular) Edema: Yes Edema: LLE: 1+, RLE: 1+ Peripheral Pulses WNL: Yes Neurological: Yes: Alert, Oriented - Other Data Labs, Other Data: CBC, BMP 10/28/18 06:18 10/28/18 06:18 INR, PTT INR 1.13 (0.83-1.09) H 10/27/18 12:10 Troponin, BNP 10/27/18 12:10 Troponin I < 0.02 Troponin, BNP 10/27/18 12:10 Troponin I < 0.02 Laboratory Tests 10/27/18 10/27/18 10/28/18 12:10 12:10 06:18 WBC 8.8 Hgb 13.2 Plt Count 189 Sodium Potassium BUN 62.9 H Creatinine 1.9 H Magnesium Total Bilirubin AST ALT Alkaline Phosphatase Troponin I < 0.02 10/28/18 06:18 WBC Hgb Plt Count Sodium 139 Potassium 3.3 L BUN 68.1 H Creatinine 2.1 H Magnesium 2.3 Total Bilirubin 0.6 AST 33 ALT 42 Alkaline Phosphatase 75 Troponin I AF 61bpm, no acute ST changes Echo: Report Reviewed Imaging - Results Chest X-ray: Image Reviewed EKG: Image Reviewed Assessment/Plan IMP: Seizure vs cardiac arrhythmia 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 Admit to tele to r/o arrhythmic etiology, certainly has substrate for cardiac arrhythmias 2. Neuro evaluation pending. 3. At the moment, appears euvolemic and would continue home cardiac meds including PO torsemide. 4. On Eliquis for AF w/ elevated [id number] score. 5. Supplimental O2, NIPPV as needed. Will follow, thank you.
[2018-10-28] MEDS ORDERED: BISACODYL 5 MG TABLET.DR (FP) ONE (09:26)
[2018-10-28] MEDS: COLCHICINE 0.6 MG CAP PO SCH ×2 (09:35→21:19)
[2018-10-28] MEDS: BISACODYL 5 MG TABLET.DR (FP) PO SCH (09:35)
[2018-10-28] MEDS: SPIRONOLACTONE 25 MG TABLET (FP) PO SCH (09:35)
[2018-10-28] MEDS: POLYETHYLENE GLYCOL 3350 119 GM BTL PO SCH ×2 (09:35→21:21)
[2018-10-28] MEDS: PRAMIPEXOLE DIHYDROCHLORIDE 0.25 MG TABLET PO SCH (09:36)
[2018-10-28] MEDS: FEBUXOSTAT 40 MG TAB PO SCH (09:36)
--- NOTE | 2018-10-28 11:03 | CON.NEURO ---
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 History of Recent Travel: No Home Medications - Allergies Allergies/Adverse Reactions: Allergies Allergy/AdvReac Type Severity Reaction Status Date / Time No Known Allergies Allergy Verified 09/09/18 20:55 - Home Medications Home Medications: Ambulatory Orders Sitagliptin Phosphate [Januvia -] 25 mg PO DAILY@0700 #90 tab 10/14/14 Spironolactone [Aldactone -] 25 mg PO DAILY #30 tablet 03/31/17 Aspirin 81 mg PO DAILY 04/10/17 Insulin Glargine,Hum.rec.anlog [Lantus] 60 unit SQ DAILY 04/10/17 Febuxostat [Uloric] 40 mg PO DAILY 02/20/18 Levothyroxine [Synthroid -] 0.05 mg PO DAILY 02/20/18 Linaclotide [Linzess] 290 mcg PO DAILY 02/20/18 Metoprolol Succinate [Toprol Xl] 50 mg PO BID 02/20/18 Apixaban [Eliquis -] 2.5 mg PO BID 03/30/18 Colchicine [Mitigare] 0.6 mg PO BID 04/10/18 Torsemide 100 mg PO BID 05/19/18 Pramipexole Dihydrochloride [Mirapex -] 0.25 mg PO DAILY 10/27/18 Physical Exam-Neuro Vital Signs: Vital Signs Temperature 97.9 F 10/28/18 06:39 Pulse Rate 84 10/28/18 09:30 Respiratory Rate 18 10/28/18 09:30 Blood Pressure 115/74 10/28/18 09:30 O2 Sat by Pulse Oximetry (%) 98 10/28/18 09:30 Labs: CBC, BMP 10/28/18 06:18 10/28/18 06:18 INR, PTT INR 1.13 (0.83-1.09) H 10/27/18 12:10 Assessment/Plan cc Possible seizure ? HPI 88 year old male with multiple medical problem, including DM,HTN,CAD,Afib, Restrictive lung disease. He lives with his in a private home , no cogntive problem , ambulate with walker. He had a episode of LOC, with generlized shaking, no tongue bite or incontinence , Patient told ed that there was confusion but patient says it lasted briefly and he was consious again. patient was not given any AED in ed and his ct head was normal. PMH as above. Allergies: NKDA Social: Pt denies any cigarette, alcohol, or drug use. Pt denies any recent travel or sick contacts. Family: no relevant history. Home Medications: Sitagliptin Phosphate [Januvia -] 25 mg PO DAILY@0700 #90 tab 10/14/14 Spironolactone [Aldactone -] 25 mg PO DAILY #30 tablet 03/31/17 Aspirin 81 mg PO DAILY 04/10/17 Insulin Glargine,Hum.rec.anlog [Lantus] 60 unit SQ DAILY 04/10/17 Febuxostat [Uloric] 40 mg PO DAILY 02/20/18 Levothyroxine [Synthroid -] 0.05 mg PO DAILY 02/20/18 Linaclotide [Linzess] 290 mcg PO DAILY 02/20/18 Metoprolol Succinate [Toprol Xl] 50 mg PO BID 02/20/18 Apixaban [Eliquis -] 2.5 mg PO BID 03/30/18 Colchicine [Mitigare] 0.6 mg PO BID 04/10/18 Torsemide 100 mg PO BID 05/19/18 Pramipexole Dihydrochloride [Mirapex -] 0.25 mg PO DAILY 10/27/18 NEUROLOGICAL EXAMINATION Alert oriented x 3 speech is normal, no neck stiffness, afebrile, vss eomi, pupils reactive no face asymmetry moving all ext sensation is normal reflex are generalized diminished ct head is unremarkable Assesment/Plan 88 year old male with multiple medical problem, probably syncope with seizure like activity. At this time given his life style and only one questionable episode. i suggest to hold AED and get mri of brain and eeg PLan: It was discussed with patient , and he agree work up can be done as outpatient I would order mri of brain and eeg Thanking you so much Keith Boland MD
--- NOTE | 2018-10-28 12:35 | CON.PULM ---
Consult Consult Specialty:: PULMONRAY Referred by:: Dr Moseley Reason for Consultation:: ILD - History of Present Illness Chief Complaint: shaking episode History of Present Illness: 88yo male with h/o CAD s/p CABG, atrial fibrillation, asbestos exposure, interstitial lung disease, chronic hypoxic respiratory failure on home O2, pulmonary HTN, CKD,JUAN who was admitted with shaking episodes. No prior history of seizures. CT head unremarkable. He denies shortness of breath or chest pain. No cough or wheezing. No fevers, chills or sweats. 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 History of Recent Travel: No Home Medications - Allergies Allergies/Adverse Reactions: Allergies Allergy/AdvReac Type Severity Reaction Status Date / Time No Known Allergies Allergy Verified 09/09/18 20:55 - Home Medications Home Medications: Ambulatory Orders Sitagliptin Phosphate [Januvia -] 25 mg PO DAILY@0700 #90 tab 10/14/14 Spironolactone [Aldactone -] 25 mg PO DAILY #30 tablet 03/31/17 Aspirin 81 mg PO DAILY 04/10/17 Insulin Glargine,Hum.rec.anlog [Lantus] 60 unit SQ DAILY 04/10/17 Febuxostat [Uloric] 40 mg PO DAILY 02/20/18 Levothyroxine [Synthroid -] 0.05 mg PO DAILY 02/20/18 Linaclotide [Linzess] 290 mcg PO DAILY 02/20/18 Metoprolol Succinate [Toprol Xl] 50 mg PO BID 02/20/18 Apixaban [Eliquis -] 2.5 mg PO BID 03/30/18 Colchicine [Mitigare] 0.6 mg PO BID 04/10/18 Torsemide 100 mg PO BID 05/19/18 Pramipexole Dihydrochloride [Mirapex -] 0.25 mg PO DAILY 10/27/18 Review of Systems - Review of Systems Constitutional: reports: Weakness. denies: Chills, Fever Eyes: denies: Recent Change in Vision HENT: denies: Nasal Congestion, Throat Pain Neck: denies: Stiffness, Tenderness Cardiovascular: denies: Chest Pain, Shortness of Breath Respiratory: denies: Cough, SOB, Wheezing Gastrointestinal: denies: Abdominal Pain, Nausea, Vomiting Genitourinary: denies: Dysuria, Hematuria Neurological: denies: Dizziness, Headache Endocrine: denies: Unexplained Weight Loss Physical Exam Vital Sings: Vital Signs Temperature 97.9 F 10/28/18 06:39 Pulse Rate 84 10/28/18 09:30 Respiratory Rate 18 10/28/18 09:30 Blood Pressure 115/74 10/28/18 09:30 O2 Sat by Pulse Oximetry (%) 98 10/28/18 09:30 Constitutional: Yes: Calm Eyes: Yes: Conjunctiva Clear, EOM Intact HENT: Yes: Atraumatic, Normocephalic Neck: Yes: Supple, Trachea Midline Cardiovascular: Yes: Regular Rate and Rhythm Respiratory: Yes: Diminished (decreased breath sounds at the bases) ...Clubbing: No Gastrointestinal: Yes: Normal Bowel Sounds, Soft, Abdomen, Obese. No: Tenderness Edema: No Labs: CBC, BMP 10/28/18 06:18 10/28/18 06:18 Imaging - Results Chest X-ray: Report Reviewed, Image Reviewed (no infiltrates) Problem List - Problems (1) Atrial fibrillation Code(s): I48.91 - UNSPECIFIED ATRIAL FIBRILLATION Qualifiers: Atrial fibrillation type: chronic Qualified Code(s): I48.2 - Chronic atrial fibrillation (2) Seizure Code(s): R56.9 - UNSPECIFIED CONVULSIONS (3) ASHD (arteriosclerotic heart disease) Code(s): I25.10 - ATHSCL HEART DISEASE OF [place] CORONARY ARTERY W/O ANG PCTRS (4) Acute on chronic diastolic CHF (congestive heart failure) Code(s): I50.33 - ACUTE ON CHRONIC DIASTOLIC (CONGESTIVE) HEART FAILURE Assessment/Plan r/o Seizures Interstitial Lung Disease Chronic Hypoxic Respiratory Failure Pulmonary HTN CAD s/p CABG Atrial Fibrillation CKD JUAN - neuro work up in progress - O2 to keep Spo2 >90% - inhaled bronchodilators - aspiration precautions - rate controlled - continue anticoagulation - outpt PFTs and f/u Thank you for this consult Thomas Beckman MD
--- NOTE | 2018-10-28 13:37 | PN ---
Progress Note, Physician Chief Complaint: seizure at home History of Present Illness: [facility] coverage for Dr. Moseley Patient is a 88 year old male with a significant past medical history of chronic hypercapnic respiratory failuare, CABG, diabetes II, CKD, extensive pleural disease, previous thoracentesis, obstructive sleep apnea, chronic atrial fibrillation, CHF, gouty arthritis, rectal surgery for abscess/fisula. Patient placed on observation for a possible seizure episode at home. Initial head CT negative. Mentation at baseline. Seen by neurology and a brain MRI and eeg recommended. Awaiting results. - Current Medication List Current Medications: Active Medications Albuterol/Ipratropium (Duoneb -) 1 amp NEB Q6H PRN PRN Reason: SHORTNESS OF BREATH Apixaban (Eliquis -) 2.5 mg PO BID [facility] Last Admin: 10/27/18 23:41 Dose: 2.5 mg Bisacodyl (Dulcolax -) 5 mg PO DAILY [facility] Last Admin: 10/28/18 09:35 Dose: 5 mg Colchicine (Colcrys) 0.6 mg PO BID [facility] Last Admin: 10/28/18 09:35 Dose: 0.6 mg Febuxostat (Uloric -) 40 mg PO DAILY [facility] Last Admin: 10/28/18 09:36 Dose: 40 mg Insulin Aspart (Novolog Vial Sliding Scale -) 1 vial SQ [facility]; Protocol Last Admin: 10/28/18 13:00 Dose: Not Given Insulin Detemir (Levemir Vial) 20 units SQ [facility] Last Admin: 10/27/18 23:14 Dose: 20 mg Levothyroxine Sodium (Synthroid -) 50 mcg PO DAILY@0700 [facility] Last Admin: 10/28/18 06:38 Dose: 50 mcg Metoprolol Succinate (Toprol Xl -) 50 mg PO BID [facility] Last Admin: 10/28/18 09:36 Dose: 50 mg Polyethylene Glycol (Miralax (For Daily Use) -) 17 gm PO BID [facility] Last Admin: 10/28/18 09:35 Dose: 17 gm Pramipexole Dihydrochloride (Mirapex -) 0.25 mg PO DAILY [facility] Last Admin: 10/28/18 09:36 Dose: 0.25 mg Sitagliptin Phosphate (Januvia -) 25 mg PO DAILY@0700 [facility] Last Admin: 10/28/18 06:38 Dose: Not Given Spironolactone (Aldactone -) 25 mg PO DAILY [facility] Last Admin: 10/28/18 09:35 Dose: 25 mg Torsemide (Demadex -) 100 mg PO BIDLASIX [facility] Last Admin: 10/28/18 06:38 Dose: 100 mg - Objective Vital Signs: Vital Signs Temperature 97.9 F 10/28/18 06:39 Pulse Rate 84 10/28/18 09:30 Respiratory Rate 18 10/28/18 09:30 Blood Pressure 115/74 10/28/18 09:30 O2 Sat by Pulse Oximetry (%) 98 10/28/18 09:30 Constitutional: Yes: No Distress, Calm Eyes: Yes: WNL HENT: Yes: WNL, Atraumatic Neck: Yes: WNL Respiratory: Yes: Regular, Accessory Muscle Use, Diminished, On BiPap, On Nasal O2, SOB on Exertion Gastrointestinal: Yes: Abdomen, Obese ...Rectal Exam: Yes: Deferred Genitourinary: Yes: WNL Breast(s): Yes: WNL Musculoskeletal: Yes: WNL Extremities: Yes: WNL Edema: LLE: Trace, RLE: Trace Integumentary: Yes: WNL Neurological: Yes: WNL, Alert, Oriented Psychiatric: Yes: Alert, Oriented Labs: CBC, BMP 10/28/18 06:18 10/28/18 06:18 INR, PTT INR 1.13 (0.83-1.09) H 10/27/18 12:10 Problem List - Problems (1) Atrial fibrillation Assessment/Plan: per primary care physician, hold eliquis x 24 hours and restart if no seizure activity head ct negative Code(s): I48.91 - UNSPECIFIED ATRIAL FIBRILLATION Qualifiers: Atrial fibrillation type: chronic Qualified Code(s): I48.2 - Chronic atrial fibrillation (2) Seizure Assessment/Plan: one episode of seizure at home, initial head ct negative resumed eliquis for a brain mri and eeg neurolog following Code(s): R56.9 - UNSPECIFIED CONVULSIONS (3) Syncope Assessment/Plan: physical therapy ordered on tele to any arrhythmia. continue home cardiac meds Code(s): R55 - SYNCOPE AND COLLAPSE Qualifiers: Syncope type: unspecified Qualified Code(s): R55 - Syncope and collapse (4) ASHD (arteriosclerotic heart disease) Code(s): I25.10 - ATHSCL HEART DISEASE OF [place] CORONARY ARTERY W/O ANG PCTRS (5) Acute kidney injury Assessment/Plan: creatinine at baseline CKD Code(s): N17.9 - ACUTE KIDNEY FAILURE, UNSPECIFIED (6) Acute on chronic respiratory failure with hypoxia and hypercapnia Assessment/Plan: on supplemental oxygen at 2 liters, bipap at night JUAN Code(s): J96.21 - ACUTE AND CHRONIC RESPIRATORY FAILURE WITH HYPOXIA; J96.22 - ACUTE AND CHRONIC RESPIRATORY FAILURE WITH HYPERCAPNIA (7) DM type 2 (diabetes mellitus, type 2) Assessment/Plan: on novolog ss, januvia. maintain fasting blood sugars < 150 pre meal Code(s): E11.9 - TYPE 2 DIABETES MELLITUS WITHOUT COMPLICATIONS Qualifiers: Diabetes mellitus longterm insulin use: with oil heaterman use Chronic kidney disease stage: stage 4 (severe) (8) HTN (hypertension) Assessment/Plan: on metoprolol bid. bp stable. Code(s): I10 - ESSENTIAL (PRIMARY) HYPERTENSION (9) Acute on chronic systolic (congestive) heart failure Assessment/Plan: continue toresemide. intake and output daily on aldactone 1200 cc fluid restriction low salt diet Code(s): I50.23 - ACUTE ON CHRONIC SYSTOLIC (CONGESTIVE) HEART FAILURE (10) CKD (chronic kidney disease) Assessment/Plan: unchanged from previous visits monitor bun/creatinine renal dose meds Code(s): N18.9 - CHRONIC KIDNEY DISEASE, UNSPECIFIED Qualifiers: Chronic kidney disease stage: stage 3 (moderate) Qualified Code(s): N18.3 - Chronic kidney disease, stage 3 (moderate) Visit type - Emergency Visit Emergency Visit: Yes ED Registration Date: 10/27/18 Care time: The patient presented to the Emergency Department on the above date and was hospitalized for further evaluation of their emergent condition. - New Patient This patient is new to me today: Yes Date on this admission: 10/28/18 - Critical Care Critical Care patient: No - Discharge Referral Referred to [facility] Med [facility] No
--- NOTE | 2018-10-28 15:20 | EKG ---
Test Reason : Blood Pressure : / mmHG Vent. Rate : 061 BPM Atrial Rate : 055 BPM P-R Int : 000 ms QRS Dur : 116 ms QT Int : 452 ms P-R-T Axes : 000 -23 037 degrees QTc Int : 455 ms ATRIAL FIBRILLATION ABNORMAL ECG WHEN COMPARED WITH ECG OF 09-SEP-2018 21:02, NO SIGNIFICANT CHANGE WAS FOUND Confirmed by MD Dodson Daniel ([id number]) on 10/28/2018 3:20:25 PM Referred By: Confirmed By:Librado Dodson MD
[2018-10-28 18:57] VITALS: BMI 40.1
[2018-10-28] MEDS: APIXABAN 2.5 MG TABLET PO SCH (21:19)
[2018-10-28] MEDS: INSULIN (LEVEMIR) 100 UNITS/ML UNITS SQ SCH (21:20)
[2018-10-29] MEDS: LEVOTHYROXINE NA 50 MCG TABLET (FP) PO SCH (06:33)
[2018-10-29] MEDS: INSULIN SLIDING SCALE (NOVOLOG) 1 VIAL SQ SCH ×2 (06:33→11:55)
[2018-10-29] MEDS: TORSEMIDE 100 MG TABLET PO SCH ×2 (06:33→13:39)
[2018-10-29 08:05] LABS: BASO % 0.9 % (0-2.0); EOS % 3.2 % (0-4.5); HEMATOCRIT 39.4 % (35.4-49); HEMOGLOBIN 13.2 GM/dL (11.7-16.9); LYMPH % 18.6 % (8-40); MCH 30.1 pg (25.7-33.7); MCHC 33.6 g/dl (32.0-35.9); MEAN CELL VOLUME 89.8 fl (80-96); MEAN PLT VOLUME 8.6 fl (7.5-11.1); NEUT % 62.3 % (42.8-82.8); PLATELET COUNT 183 K/MM3 (134-434); RBC 4.38 M/mm3 (4.00-5.60)
[2018-10-29 08:31] LABS: ALBUMIN 3.4 g/dl (3.4-5.0); BILIRUBIN,TOTAL 0.5 mg/dL (0.2-1); BLOOD UREA NITROGEN 60.6 mg/dL (7-18); MAGNESIUM 2.4 mg/dL (1.8-2.4); POTASSIUM 3.7 mmol/L (3.5-5.1); TOT PROT 6.6 g/dl (6.4-8.2)
[2018-10-29] MEDS ORDERED: PT OWN MED DRAWER 7, Y5N ONE ×2 (08:40→13:35)
[2018-10-29] MEDS: COLCHICINE 0.6 MG CAP PO SCH (09:10)
[2018-10-29] MEDS: APIXABAN 2.5 MG TABLET PO SCH (09:10)
[2018-10-29] MEDS: BISACODYL 5 MG TABLET.DR (FP) PO SCH (09:10)
[2018-10-29] MEDS: SPIRONOLACTONE 25 MG TABLET (FP) PO SCH (09:10)
[2018-10-29] MEDS: FEBUXOSTAT 40 MG TAB PO SCH (09:11)
[2018-10-29] MEDS: PRAMIPEXOLE DIHYDROCHLORIDE 0.25 MG TABLET PO SCH (09:11)
[2018-10-29] MEDS: POLYETHYLENE GLYCOL 3350 119 GM BTL PO SCH (09:11)
--- NOTE | 2018-10-29 09:15 | PN ---
Progress Note (short form) - Note Progress Note: 88 year old male with multiple medical problem, including DM,HTN,CAD,Afib, Restrictive lung disease. He lives with his in a private home , no cogntive problem , ambulate with walker. He had a episode of LOC, with generlized shaking, no tongue bite or incontinence , Patient told ed that there was confusion but patient says it lasted briefly and he was consious again. patient was not given any AED in ed and his ct head was normal. Patient is feeling better and cant have mri due to metal in his leg. NEUROLOGICAL EXAMINATION Alert oriented x 3 speech is normal, no neck stiffness, afebrile, vss eomi, pupils reactive no face asymmetry moving all ext sensation is normal reflex are generalized diminished ct head is unremarkable Assesment/Plan 88 year old male with multiple medical problem, probably syncope with seizure like activity. At this time given his life style and only one questionable episode. he cant have mri of brain, suggest to watch clinically if any change in status, repeat ct head with contrast. PLan: hold mri and would repeat ct head if any change in neurological status eeg pending Thanking you so much Keith Boland MD
--- NOTE | 2018-10-29 09:32 | PN ---
Progress Note, Physician Chief Complaint: sitting on bed No CP or SOB Appreciate Neuro input-MRI brain and EEG planned TELE: rate controlled AF, artifact. Average rate < 80bpm - Current Medication List Current Medications: Active Medications Albuterol/Ipratropium (Duoneb -) 1 amp NEB Q6H PRN PRN Reason: SHORTNESS OF BREATH Last Admin: 10/28/18 12:50 Dose: 1 amp Apixaban (Eliquis -) 2.5 mg PO BID [facility] Last Admin: 10/29/18 09:10 Dose: 2.5 mg Bisacodyl (Dulcolax -) 5 mg PO DAILY [facility] Last Admin: 10/29/18 09:10 Dose: 5 mg Colchicine (Colcrys) 0.6 mg PO BID [facility] Last Admin: 10/29/18 09:10 Dose: 0.6 mg Febuxostat (Uloric -) 40 mg PO DAILY [facility] Last Admin: 10/29/18 09:11 Dose: 40 mg Insulin Aspart (Novolog Vial Sliding Scale -) 1 vial SQ [facility]; Protocol Last Admin: 10/29/18 06:33 Dose: Not Given Insulin Detemir (Levemir Vial) 20 units SQ [facility] Last Admin: 10/28/18 21:20 Dose: 20 mg Levothyroxine Sodium (Synthroid -) 50 mcg PO DAILY@0700 [facility] Last Admin: 10/29/18 06:33 Dose: 50 mcg Metoprolol Succinate (Toprol Xl -) 50 mg PO BID [facility] Last Admin: 10/29/18 09:10 Dose: 50 mg Polyethylene Glycol (Miralax (For Daily Use) -) 17 gm PO BID [facility] Last Admin: 10/29/18 09:11 Dose: 17 gm Pramipexole Dihydrochloride (Mirapex -) 0.25 mg PO DAILY [facility] Last Admin: 10/29/18 09:11 Dose: 0.25 mg Sitagliptin Phosphate (Januvia -) 25 mg PO DAILY@0700 [facility] Last Admin: 10/29/18 06:33 Dose: 25 mg Spironolactone (Aldactone -) 25 mg PO DAILY [facility] Last Admin: 10/29/18 09:10 Dose: 25 mg Torsemide (Demadex -) 100 mg PO BIDLASIX [facility] Last Admin: 10/29/18 06:33 Dose: 100 mg - Objective Vital Signs: Vital Signs Temperature 98 F 10/29/18 06:00 Pulse Rate 68 10/29/18 06:00 Respiratory Rate 18 10/29/18 06:00 Blood Pressure 123/81 10/29/18 06:00 O2 Sat by Pulse Oximetry (%) 97 10/29/18 08:02 Constitutional: Yes: Calm Eyes: Yes: Conjunctiva Clear Cardiovascular: Yes: Pulse Irregular Respiratory: Yes: Rhonchi Gastrointestinal: Yes: Soft, Abdomen, Obese Edema: No Neurological: Yes: Alert, Oriented Labs: CBC, BMP 10/29/18 07:00 10/29/18 07:00 INR, PTT INR 1.13 (0.83-1.09) H 10/27/18 12:10 - ....Imaging EKG: Image Reviewed Assessment/Plan Assessment/Plan IMP: Seizure vs cardiac arrhythmia 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 Tele thus far with controlled AF, nothing to explain presentation. 2. MRI brain and EEG planned 3. Remains euvolemic and would continue home cardiac meds including PO torsemide. Not on BETTY/ARB due to CKD 4. On Eliquis for AF w/ elevated [id number] score. 5. Supplimental O2, NIPPV as needed.
--- NOTE | 2018-10-29 10:21 | PN ---
Progress Note (short form) - Note Progress Note: PULMONARY Denies shortness of breath, cough or wheezing. Vital Signs Period Temp Pulse Resp BP Sys/Junior Pulse Ox Last 24 Hr 97.6 F-98 F 68-83 18-18 114-138/66-83 97-98 Gen: NAD at rest Heart: RRR Lung: decreased breath sounds at the bases Abd: soft, nontender Ext: no edema CBC, BMP 10/29/18 07:00 10/29/18 07:00 Active Medications Albuterol/Ipratropium (Duoneb -) 1 amp NEB Q6H PRN PRN Reason: SHORTNESS OF BREATH Last Admin: 10/28/18 12:50 Dose: 1 amp Apixaban (Eliquis -) 2.5 mg PO BID [facility] Last Admin: 10/29/18 09:10 Dose: 2.5 mg Bisacodyl (Dulcolax -) 5 mg PO DAILY [facility] Last Admin: 10/29/18 09:10 Dose: 5 mg Colchicine (Colcrys) 0.6 mg PO BID [facility] Last Admin: 10/29/18 09:10 Dose: 0.6 mg Febuxostat (Uloric -) 40 mg PO DAILY [facility] Last Admin: 10/29/18 09:11 Dose: 40 mg Insulin Aspart (Novolog Vial Sliding Scale -) 1 vial SQ [facility]; Protocol Last Admin: 10/29/18 06:33 Dose: Not Given Insulin Detemir (Levemir Vial) 20 units SQ [facility] Last Admin: 10/28/18 21:20 Dose: 20 mg Levothyroxine Sodium (Synthroid -) 50 mcg PO DAILY@0700 [facility] Last Admin: 10/29/18 06:33 Dose: 50 mcg Metoprolol Succinate (Toprol Xl -) 50 mg PO BID [facility] Last Admin: 10/29/18 09:10 Dose: 50 mg Polyethylene Glycol (Miralax (For Daily Use) -) 17 gm PO BID [facility] Last Admin: 10/29/18 09:11 Dose: 17 gm Pramipexole Dihydrochloride (Mirapex -) 0.25 mg PO DAILY [facility] Last Admin: 10/29/18 09:11 Dose: 0.25 mg Sitagliptin Phosphate (Januvia -) 25 mg PO DAILY@0700 [facility] Last Admin: 10/29/18 06:33 Dose: 25 mg Spironolactone (Aldactone -) 25 mg PO DAILY [facility] Last Admin: 10/29/18 09:10 Dose: 25 mg Torsemide (Demadex -) 100 mg PO BIDLASIX [facility] Last Admin: 10/29/18 06:33 Dose: 100 mg A/P r/o Seizures Interstitial Lung Disease Chronic Hypoxic Respiratory Failure Pulmonary HTN CAD s/p CABG Atrial Fibrillation CKD JUAN - neuro work up in progress - O2 to keep Spo2 >90% - inhaled bronchodilators - aspiration precautions - rate controlled - continue anticoagulation - outpt PFTs and f/u Problem List - Problems (1) Atrial fibrillation Code(s): I48.91 - UNSPECIFIED ATRIAL FIBRILLATION Qualifiers: Atrial fibrillation type: chronic Qualified Code(s): I48.2 - Chronic atrial fibrillation (2) Seizure Code(s): R56.9 - UNSPECIFIED CONVULSIONS (3) ASHD (arteriosclerotic heart disease) Code(s): I25.10 - ATHSCL HEART DISEASE OF [place] CORONARY ARTERY W/O ANG PCTRS (4) Acute on chronic diastolic CHF (congestive heart failure) Code(s): I50.33 - ACUTE ON CHRONIC DIASTOLIC (CONGESTIVE) HEART FAILURE
--- NOTE | 2018-10-29 13:10 | DS ---
Physical Exam: SUBJECTIVE: Patient seen and examined at the bedside. Sitting up in the bed, eating lunch. feels well. no headaches, no dizziness. facial symmetry. on 2 liters of nasal cannula with stable saturations. son at the bedside. discussed with patient and son that since patient has been doing well and no signs of any further neurological events and no events on tele , we will discharge him home with follow up with his PCP and Dr. Boland. Dr Boland informed and agreed to outpatient follow up. [facility] patient to be discharged home, he was placed on observation x 48 hours and has been doing well without any neurological events. mentation at baseline. no overnight events. Vital Signs Period Temp Pulse Resp BP Sys/Junior Pulse Ox Last 24 Hr 97.6 F-98 F 68-83 18-18 114-138/66-83 96-98 PHYSICAL EXAM GENERAL: The patient is awake, alert, and fully oriented, in no acute distress. HEAD: Normal with no signs of trauma. EYES: PERRL, extraocular movements intact, sclera anicteric, conjunctiva clear. ENT: Ears normal, nares patent, oropharynx clear without exudates, moist mucous membranes. NECK: Trachea midline, full range of motion, supple. LUNGS: Breath sounds equal, diminished, home oxygen dependent. bipap at night HEART: controlled afib on environmental monitoring technician. ABDOMEN: obese abdomen EXTREMITIES: mild trace bilateral lower ext edema NEUROLOGICAL: Normal speech, gait not observed. PSYCH: Normal mood, normal affect. SKIN: Warm, dry, normal turgor, no rashes or lesions noted. LABS Laboratory Results - last 24 hr 10/28/18 10/28/18 10/29/18 16:49 21:18 05:39 WBC RBC Hgb Hct MCV MCH MCHC RDW Plt Count MPV Absolute Neuts (auto) Neutrophils % Lymphocytes % Monocytes % Eosinophils % Basophils % Nucleated RBC % Sodium Potassium Chloride Carbon Dioxide Anion Gap BUN Creatinine Est GFR (CKD-EPI)AfAm Est GFR (CKD-EPI)NonAf POC Glucometer 250 196 72 Random Glucose Calcium Magnesium Total Bilirubin AST ALT Alkaline Phosphatase Total Protein Albumin 10/29/18 10/29/18 10/29/18 07:00 07:00 11:48 WBC 8.0 RBC 4.38 Hgb 13.2 Hct 39.4 MCV 89.8 MCH 30.1 MCHC 33.6 RDW 19.0 H Plt Count 183 MPV 8.6 Absolute Neuts (auto) 5.0 Neutrophils % 62.3 Lymphocytes % 18.6 D Monocytes % 15.0 H Eosinophils % 3.2 Basophils % 0.9 Nucleated RBC % 0 Sodium 140 Potassium 3.7 Chloride 92 L Carbon Dioxide 42 H Anion Gap 6 L BUN 60.6 H Creatinine 2.0 H Est GFR (CKD-EPI)AfAm 33.78 Est GFR (CKD-EPI)NonAf 29.14 POC Glucometer 193 Random Glucose 128 H Calcium 9.0 Magnesium 2.4 Total Bilirubin 0.5 AST 30 ALT 41 Alkaline Phosphatase 75 Total Protein 6.6 Albumin 3.4 HOSPITAL COURSE: Date of Admission:10/27/18 Date of Discharge: 10/29/18 Minutes to complete discharge: 60 Discharge Summary Reason For Visit: SEIZURE/SYNCOPE Current Active Problems Atrial fibrillation (Acute) Seizure (Acute) Syncope (Acute) Condition: Stable - Instructions Diet, Activity, Other Instructions: Mr Barber You were admitted for possible seizure episode at home. During your stay, you remained stable, without any neurological issues. You were evaluated by neurologist, wood floor layer and pulmonoloigst. You will be discharged home today with the following instructions: Please see Dr Denney (neurologist) for further workup. His information is enclosed. You may need an EEG. What is an EEG? An Electroencephalogram or an EEG is a test used to find problems related to the electrical activity of the brain. It tracks and records brain wave patterns. Next steps: Please follow up with Dr. Perez for post hospital visit. Please call his office tomorrow for an appointment. Please follow up with Dr. Boland for further neurology workup including and EEG. continue taking all your medications as you have been doing at home Thank you for allowing us to care for you. Lidya Bill NP - covering for Dr. Perez [facility] [phone] Referrals: Keith Boland MD [Staff Physician] - 1 Week Sunil Perez MD [Primary Care Provider] - Disposition: HOME - Home Medications Comprehensive Discharge Medication List: Ambulatory Orders Sitagliptin Phosphate [Januvia -] 25 mg PO DAILY@0700 #90 tab 10/14/14 Spironolactone [Aldactone -] 25 mg PO DAILY #30 tablet 03/31/17 Aspirin 81 mg PO DAILY 04/10/17 Insulin Glargine,Hum.rec.anlog [Lantus] 60 unit SQ DAILY 04/10/17 Febuxostat [Uloric] 40 mg PO DAILY 02/20/18 Levothyroxine [Synthroid -] 0.05 mg PO DAILY 02/20/18 Linaclotide [Linzess] 290 mcg PO DAILY 02/20/18 Metoprolol Succinate [Toprol Xl] 50 mg PO BID 02/20/18 Apixaban [Eliquis -] 2.5 mg PO BID 03/30/18 Colchicine [Mitigare] 0.6 mg PO BID 04/10/18 Torsemide 100 mg PO BID 05/19/18 Pramipexole Dihydrochloride [Mirapex -] 0.25 mg PO DAILY 10/27/18 Problem List - Problems (1) Atrial fibrillation Assessment/Plan: controlled afib. continue home meds. Code(s): I48.91 - UNSPECIFIED ATRIAL FIBRILLATION Qualifiers: Atrial fibrillation type: chronic Qualified Code(s): I48.2 - Chronic atrial fibrillation (2) Seizure Assessment/Plan: no seizure episodes during hospital stay. head ct negative. unable to to a brain MRI as patient reports to having metal on his leg x 40 years ago. neurology informed and brain mri cancelled. patient to have an EEG done as an outpatient. Code(s): R56.9 - UNSPECIFIED CONVULSIONS (3) Syncope Assessment/Plan: stable during hospital stay Code(s): R55 - SYNCOPE AND COLLAPSE Qualifiers: Syncope type: unspecified Qualified Code(s): R55 - Syncope and collapse (4) ASHD (arteriosclerotic heart disease) Code(s): I25.10 - ATHSCL HEART DISEASE OF [place] CORONARY ARTERY W/O ANG PCTRS (5) Acute kidney injury Assessment/Plan: creatinine at baseline CKD Code(s): N17.9 - ACUTE KIDNEY FAILURE, UNSPECIFIED (6) Acute on chronic respiratory failure with hypoxia and hypercapnia Assessment/Plan: on supplemental oxygen at 2 liters, bipap at night JUAN Code(s): J96.21 - ACUTE AND CHRONIC RESPIRATORY FAILURE WITH HYPOXIA; J96.22 - ACUTE AND CHRONIC RESPIRATORY FAILURE WITH HYPERCAPNIA (7) DM type 2 (diabetes mellitus, type 2) Assessment/Plan: on novolog ss, januvia. maintain fasting blood sugars < 150 pre meal Code(s): E11.9 - TYPE 2 DIABETES MELLITUS WITHOUT COMPLICATIONS Qualifiers: Diabetes mellitus halfway insulin use: with halfway use Chronic kidney disease stage: stage 4 (severe) (8) HTN (hypertension) Assessment/Plan: on metoprolol bid. bp stable. Code(s): I10 - ESSENTIAL (PRIMARY) HYPERTENSION (9) Acute on chronic systolic (congestive) heart failure Code(s): I50.23 - ACUTE ON CHRONIC SYSTOLIC (CONGESTIVE) HEART FAILURE (10) CKD (chronic kidney disease) Assessment/Plan: unchanged from previous visits monitor bun/creatinine renal dose meds Code(s): N18.9 - CHRONIC KIDNEY DISEASE, UNSPECIFIED Qualifiers: Chronic kidney disease stage: stage 3 (moderate) Qualified Code(s): N18.3 - Chronic kidney disease, stage 3 (moderate) This patient is new to me today: No Emergency Visit: Yes ED Registration Date: 10/27/18 Care time: The patient presented to the Emergency Department on the above date and was hospitalized for further evaluation of their emergent condition. Critical Care patient: No - Discharge Referral Referred to [facility] No
[2018-10-29 14:23] VITALS: BP 114/56; PULSE 72; TEMP 98.2
== END 2018-10-29 16:43 | disposition home or self-care (01) ==
LOC: JER 11:21 → JERBED 13:38 → UNDOADMOB 15:06 → JERBED 15:06 → J4S 10-28 16:42
PROVIDERS: ADMIT Internal Medicine; ATTEND Nurse Practitioner Family
PROC: 3E013VG Introduction of Insulin into Subcutaneous Tissue, Percutaneous Approach (ICD-10-PCS; principal; 2018-10-27)
PROC: 3E0F7GC Introduction of Other Therapeutic Substance into Respiratory Tract, Via Natural or Artificial Opening (ICD-10-PCS; 2018-10-27)
DX: R56.9 Unspecified convulsions (principal); R55 Syncope and collapse; E11.22 Type 2 diabetes mellitus with diabetic chronic kidney disease; I13.0 Hypertensive heart and chronic kidney disease with heart failure and stage 1 through stage 4 chronic kidney disease, or unspecified chronic kidney disease; N18.4 Chronic kidney disease, stage 4 (severe); I50.23 Acute on chronic systolic (congestive) heart failure; N17.9 Acute kidney failure, unspecified; Z79.4 Long term (current) use of insulin; I11.0 Hypertensive heart disease with heart failure; I25.10 Atherosclerotic heart disease of native coronary artery without angina pectoris; I87.2 Venous insufficiency (chronic) (peripheral); J98.4 Other disorders of lung; I35.0 Nonrheumatic aortic (valve) stenosis; J44.9 Chronic obstructive pulmonary disease, unspecified; N40.0 Benign prostatic hyperplasia without lower urinary tract symptoms; G47.33 Obstructive sleep apnea (adult) (pediatric); M10.9 Gout, unspecified; J96.22 Acute and chronic respiratory failure with hypercapnia; J61 Pneumoconiosis due to asbestos and other mineral fibers; M19.90 Unspecified osteoarthritis, unspecified site; E78.5 Hyperlipidemia, unspecified; R26.2 Difficulty in walking, not elsewhere classified; Z90.5 Acquired absence of kidney; Z79.01 Long term (current) use of anticoagulants; Z95.1 Presence of aortocoronary bypass graft; Z99.89 Dependence on other enabling machines and devices
CPT/HCPCS: 36415; 70450-TC; 71045-TC-FY; 80053; 81003; 82550; 82962; 83735; 84484; 85025; 85610; 85730; 87086; 93005; 93010; 94640; 94660; 96372; 99285-25; G0378

== ENCOUNTER 2018-11-04 19:21 | Inpatient (IN) | payer OTHER ==
[2018-11-04] MEDS ORDERED: FUROSEMIDE 100 MG/10 ML INJECTABLE VIAL IVPB ONE (19:42)
[2018-11-04] MEDS ORDERED: FUROSEMIDE 40 MG/4 ML INJECTABLE VIAL ONE (19:45)
[2018-11-04 20:12] LABS: BASO % 1.1 % (0-2.0); HEMATOCRIT 36.9 % (35.4-49); LYMPH % 17.9 % (8-40); MCHC 32.6 g/dl (32.0-35.9); MEAN CELL VOLUME 91.9 fl (80-96); MEAN PLT VOLUME 8.9 fl (7.5-11.1); MONO % 15.5 % (3.8-10.2); NEUT % 63.5 % (42.8-82.8); PLATELET COUNT 152 K/MM3 (134-434); RBC 4.02 M/mm3 (4.00-5.60); RDW 19.1 % (11.9-15.9); WHITE BLOOD COUNT 8.3 K/mm3 (4.0-10.0)
--- NOTE | 2018-11-04 20:14 | PDOC ---
History of Present Illness <Selena Lima - Last Filed: 11/04/18 21:08> - General History Source: Patient, Family (son) <Douglas Bahena - Last Filed: 11/04/18 21:53> - General Stated Complaint: DIFFICULTY BREATHING Time Seen by Provider: 11/04/18 19:37 Past History <Selena Lima - Last Filed: 11/04/18 21:08> - Past Medical History Anemia: No Asthma: No Cancer: No Cardiac Disorders: Yes (Atrial Fib, CAD, CABG, aortic stenosis) CVA: No COPD: Yes CHF: Yes Dementia: Yes (mild) Diabetes: Yes GI Disorders: Yes (ulcerative colitis) Disorders: Yes (bph) HTN: Yes Hypercholesterolemia: Yes Liver Disease: No Seizures: No Thyroid Disease: No Lung CA: No (MESOTHELIOMA) - Surgical History Abdominal Surgery: No Appendectomy: No Cardiac Surgery: Yes (CABG) Cholecystectomy: No Lung Surgery: No Neurologic Surgery: No Orthopedic Surgery: No - Immunization History Immunization Up to Date: Yes - Suicide/Smoking/Psychosocial Hx Smoking History: Unknown if ever smoked Have you smoked in the past 12 months: No If you are a former smoker, when did you quit?: 30 YRS AGO Hx Alcohol Use: No Drug/Substance Use Hx: No Substance Use Type: None Hx Substance Use Treatment: No <Douglas Bahena - Last Filed: 11/04/18 21:53> - Past Medical History Allergies/Adverse Reactions: Allergies Allergy/AdvReac Type Severity Reaction Status Date / Time No Known Allergies Allergy Verified 11/04/18 20:08 Home Medications: Ambulatory Orders Sitagliptin Phosphate [Januvia -] 25 mg PO DAILY@0700 #90 tab 10/14/14 Spironolactone [Aldactone -] 25 mg PO DAILY #30 tablet 03/31/17 Aspirin 81 mg PO DAILY 04/10/17 Insulin Glargine,Hum.rec.anlog [Lantus] 60 unit SQ DAILY 04/10/17 Febuxostat [Uloric] 40 mg PO DAILY 02/20/18 Levothyroxine [Synthroid -] 0.05 mg PO DAILY 02/20/18 Linaclotide [Linzess] 290 mcg PO DAILY 02/20/18 Metoprolol Succinate [Toprol Xl] 50 mg PO BID 02/20/18 Apixaban [Eliquis -] 2.5 mg PO BID 03/30/18 Colchicine [Mitigare] 0.6 mg PO BID 04/10/18 Torsemide 100 mg PO BID 05/19/18 Pramipexole Dihydrochloride [Mirapex -] 0.25 mg PO DAILY 10/27/18 *Physical Exam - Vital Signs Last Vital Signs Temp Pulse Resp BP Pulse Ox 97.5 F L 95 H 115/60 95 11/04/18 19:58 11/04/18 19:58 11/04/18 19:58 11/04/18 19:58 <Selena Lima - Last Filed: 11/04/18 21:08> - Vital Signs Last Vital Signs Temp Pulse Resp BP Pulse Ox 97 11/04/18 19:51 <Douglas Bahena - Last Filed: 11/04/18 21:53> ED Treatment Course - LABORATORY CBC & Chemistry Diagram: 11/04/18 19:55 11/04/18 19:55 - ADDITIONAL ORDERS Additional order review: Laboratory Results 11/04/18 11/04/18 11/04/18 19:55 19:55 19:55 PT with INR 12.80 INR 1.08 Sodium 137 Potassium 4.7 Chloride 93 L Carbon Dioxide 42 H Anion Gap 3 L BUN 67.7 H Creatinine 2.9 H Est GFR (CKD-EPI)AfAm 21.55 Est GFR (CKD-EPI)NonAf 18.60 Random Glucose 226 H Calcium 8.3 L Total Bilirubin 0.3 AST 20 ALT 29 Alkaline Phosphatase 101 Creatine Kinase 27 Troponin I < 0.02 B-Natriuretic Peptide 3504.8 H Total Protein 6.6 Albumin 3.3 L 11/04/18 19:55 RBC 4.02 MCV 91.9 MCHC 32.6 RDW 19.1 H MPV 8.9 Neutrophils % 63.5 Lymphocytes % 17.9 Monocytes % 15.5 H Eosinophils % 2.0 Basophils % 1.1 - RADIOLOGY Radiology Studies Ordered: Category Date Time Status CHEST X-RAY PORTABLE* [RAD] Stat Radiology 11/04/18 19:43 Taken - Medications Given in the ED: ED Medications Discontinued Medications Generic Name Dose Route Start Last Admin Trade Name Freq PRN Reason Stop Dose Admin Furosemide 40 mg 11/04/18 19:42 11/04/18 20:28 Lasix Injection - IVPB 11/04/18 19:43 40 mg ONCE ONE Administration <Selena Lima - Last Filed: 11/04/18 21:08> - LABORATORY CBC & Chemistry Diagram: 11/04/18 19:55 11/04/18 19:55 <Douglas Bahena - Last Filed: 11/04/18 21:53> Medical Decision Making - Medical Decision Making 11/04/18 20:07 CBC CMP trop BNP coags CXR EKG EKG shows rate controlled a fib, unchanged placed on BiPAP Cr 2.9 - CKD (baseline 3), glucose 220, BNP 3500, trop negative, INR subtherapeutic 1.08 CXR shows cardiomegaly, bilateral basilar interstitial infiltrates given 40 lasix Pt is a 88 yo M, with PMH of CHF, stasis ulcers, HTN, DM, CAD (s/p CABG), Afib ( on eliquis), 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 SOB due to CHF exacerbation in setting of high BNP, aron LE edema, infiltrates on CXR. Not ACS w unchanged EKG neg trop. Given 40 lasix. Plan to admit for CHF exacerbation. Ingot Supervisor updated <Douglas Bahena - Last Filed: 11/04/18 21:53> *DC/Admit/Observation/Transfer - Discharge Dispostion Decision to Admit order: Yes <Selena Lima - Last Filed: 11/04/18 21:08> <Douglas Bahena - Last Filed: 11/04/18 21:53> Diagnosis at time of Disposition: CHF, acute on chronic, Acute kidney injury, Acute respiratory failure with hypercapnia, COPD (chronic obstructive pulmonary disease) with acute bronchitis , Atrial fibrillation, Hypoxemia - Discharge Dispostion Condition at time of disposition: Guarded
[2018-11-04 20:33] LABS: N-TERMINAL BNP 3504.8 pg/ml (5-450)
[2018-11-04 21:03] LABS: ALBUMIN 3.3 g/dl (3.4-5.0); BILIRUBIN,TOTAL 0.3 mg/dL (0.2-1); BLOOD UREA NITROGEN 67.7 mg/dL (7-18); CALCIUM 8.3 mg/dL (8.5-10.1); CREATININE 2.9 mg/dL (0.55-1.3); INR 1.08 (0.83-1.09); POTASSIUM 4.7 mmol/L (3.5-5.1); PROTHROMBIN TIME (PATIENT) 12.8 SEC (9.7-13.0); TOT PROT 6.6 g/dl (6.4-8.2)
[2018-11-04] MEDS ORDERED: SODIUM CHLORIDE 0.9% 500 ML INFUS.BAG IV ONE (21:04)
--- NOTE | 2018-11-04 21:57 | HP ---
Admitting History and Physical - Primary Care Physician PCP: Sunil Moseley - Admission Chief Complaint: SOB, Leg Swelling History of Present Illness: This is a 88 y/o man from home with a PMHx of HTN, HLD, Afib (on Eliquis), CAD s /p CABG, CHF, , COPD (4L), Restrictive Lung Disease (Asbestos Exposure), DM, UC, BPH, Gout, Mild Dementia, recent admissions 10/27-10/29 Seizure, Syncope. Who presents to the ED with his son for SOB x 4 days. Per the ED records, the son was not at bedside. The patient was hypoxic 70-74% at home. On arrival to the ED , the patient was tachypneic with labored breathing and was placed on Bipap. 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 History of Recent Travel: No Home Medications - Allergies Allergies/Adverse Reactions: Allergies Allergy/AdvReac Type Severity Reaction Status Date / Time No Known Allergies Allergy Verified 11/04/18 20:08 - Home Medications Home Medications: Ambulatory Orders Sitagliptin Phosphate [Januvia -] 25 mg PO DAILY@0700 #90 tab 10/14/14 Spironolactone [Aldactone -] 25 mg PO DAILY #30 tablet 03/31/17 Aspirin 81 mg PO DAILY 04/10/17 Insulin Glargine,Hum.rec.anlog [Lantus] 60 unit SQ DAILY 04/10/17 Febuxostat [Uloric] 40 mg PO DAILY 02/20/18 Levothyroxine [Synthroid -] 0.05 mg PO DAILY 02/20/18 Linaclotide [Linzess] 290 mcg PO DAILY 02/20/18 Metoprolol Succinate [Toprol Xl] 50 mg PO BID 02/20/18 Apixaban [Eliquis -] 2.5 mg PO BID 03/30/18 Colchicine [Mitigare] 0.6 mg PO BID 04/10/18 Torsemide 100 mg PO BID 05/19/18 Pramipexole Dihydrochloride [Mirapex -] 0.25 mg PO DAILY 10/27/18 Family Disease History - Family Disease History Family History: Unable to Obtain Review of Systems Unable to obtain ROS, reason: Clinical Condiiton Physical Examination Vital Signs: Vital Signs Temperature 97.5 F L 11/04/18 19:58 Pulse Rate Respiratory Rate 95 H 11/04/18 19:58 Blood Pressure 115/60 11/04/18 19:58 O2 Sat by Pulse Oximetry (%) 95 11/04/18 19:58 Constitutional: Yes: Mild Distress, Obese Eyes: Yes: WNL, Conjunctiva Clear, EOM Intact, PERRL HENT: Yes: Atraumatic, Normocephalic, Other ([place]) Neck: Yes: WNL, Supple, Trachea Midline Cardiovascular: Yes: Pulse Irregular, S1, S2 Respiratory: Yes: Diminished, On BiPap, Rhonchi, SOB, SOB on Exertion Gastrointestinal: Yes: Normal Bowel Sounds, Soft, Abdomen, Obese Renal/: Yes: WNL Breast(s): Yes: WNL Musculoskeletal: Yes: WNL Edema: Yes Edema: LLE: 2+, RLE: 2+ Peripheral Pulses WNL: Yes Neurological: Yes: Alert Psychiatric: Yes: Alert Labs: CBC, BMP 11/04/18 19:55 11/04/18 19:55 Laboratory Results - last 24 hr 11/04/18 11/04/18 11/04/18 19:55 19:55 19:55 WBC 8.3 RBC 4.02 Hgb 12.0 Hct 36.9 MCV 91.9 MCH 30.0 MCHC 32.6 RDW 19.1 H Plt Count 152 MPV 8.9 Absolute Neuts (auto) 5.3 Neutrophils % 63.5 Lymphocytes % 17.9 Monocytes % 15.5 H Eosinophils % 2.0 Basophils % 1.1 Nucleated RBC % 0 PT with INR INR PTT (Actin FS) Sodium 137 Potassium 4.7 Chloride 93 L Carbon Dioxide 42 H Anion Gap 3 L BUN 67.7 H Creatinine 2.9 H Est GFR (CKD-EPI)AfAm 21.55 Est GFR (CKD-EPI)NonAf 18.60 Random Glucose 226 H Calcium 8.3 L Total Bilirubin 0.3 AST 20 ALT 29 Alkaline Phosphatase 101 Creatine Kinase 27 Troponin I < 0.02 B-Natriuretic Peptide 3504.8 H Total Protein 6.6 Albumin 3.3 L 11/04/18 11/04/18 19:55 20:22 WBC RBC Hgb Hct MCV MCH MCHC RDW Plt Count MPV Absolute Neuts (auto) Neutrophils % Lymphocytes % Monocytes % Eosinophils % Basophils % Nucleated RBC % PT with INR 12.80 INR 1.08 PTT (Actin FS) 31.4 Sodium Potassium Chloride Carbon Dioxide Anion Gap BUN Creatinine Est GFR (CKD-EPI)AfAm Est GFR (CKD-EPI)NonAf Random Glucose Calcium Total Bilirubin AST ALT Alkaline Phosphatase Creatine Kinase Troponin I B-Natriuretic Peptide Total Protein Albumin Intake & Output 11/02/18 11/03/18 11/04/18 11/05/18 23:59 23:59 23:59 23:59 Weight 104.326 kg Current Medications Generic Name Dose Route Start Last Admin Trade Name Freq PRN Reason Stop Dose Admin Apixaban 2.5 mg 11/05/18 01:00 Eliquis - PO BID [facility] Aspirin 81 mg 11/05/18 10:00 Asa - PO DAILY JOE Colchicine 0.6 mg 11/05/18 10:00 Colcrys PO BID JOE Febuxostat 40 mg 11/05/18 10:00 Uloric - PO DAILY [facility] Piperacillin Sod/Tazobactam 50 mls @ 100 mls/hr 11/05/18 01:31 Sod 3.375 gm/ Dextrose IVPB 11/05/18 02:00 ONCE ONE Protocol Insulin Aspart 0 vial 11/04/18 22:00 Novolog Vial Sliding Scale - SQ ACHS [facility] Protocol Levothyroxine Sodium 50 mcg 11/05/18 07:00 Synthroid - PO DAILY@0700 [facility] Metoprolol Succinate 50 mg 11/05/18 10:00 Toprol Xl - PO BID JOE Non-Formulary Medication 290 mcg 11/05/18 10:00 Linaclotide [Linzess] PO DAILY [facility] Pramipexole Dihydrochloride 0.25 mg 11/05/18 10:00 Mirapex - PO DAILY [facility] Imaging - Results Chest X-ray: Image Reviewed Cat Scan: Report Reviewed, Image Reviewed Problem List - Problems (1) Acute on chronic systolic (congestive) heart failure Code(s): I50.23 - ACUTE ON CHRONIC SYSTOLIC (CONGESTIVE) HEART FAILURE (2) Leg swelling Code(s): M79.89 - OTHER SPECIFIED SOFT TISSUE DISORDERS (3) COPD (chronic obstructive pulmonary disease) Code(s): J44.9 - CHRONIC OBSTRUCTIVE PULMONARY DISEASE, UNSPECIFIED (4) Acute respiratory failure with hypoxia Code(s): J96.01 - ACUTE RESPIRATORY FAILURE WITH HYPOXIA (5) Atrial fibrillation Code(s): I48.91 - UNSPECIFIED ATRIAL FIBRILLATION Qualifiers: (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 - OTHER SPECIFIED PLEURAL CONDITIONS (7) CAD (coronary artery disease) Code(s): I25.10 - ATHSCL HEART DISEASE OF [place] CORONARY ARTERY W/O ANG PCTRS Qualifiers: Coronary Disease-Associated Artery/Lesion type: bypass graft, autologous artery Associated angina: without angina Qualified Code(s): I25.810 - Atherosclerosis of coronary artery bypass graft(s) without angina pectoris (8) CKD (chronic kidney disease) Code(s): N18.9 - CHRONIC KIDNEY DISEASE, UNSPECIFIED Qualifiers: Chronic kidney disease stage: stage 3 (moderate) Qualified Code(s): N18.3 - Chronic kidney disease, stage 3 (moderate) (9) DM type 2 (diabetes mellitus, type 2) Code(s): E11.9 - TYPE 2 DIABETES MELLITUS WITHOUT COMPLICATIONS Qualifiers: Diabetes mellitus tank terminal gauger insulin use: with detention use Chronic kidney disease stage: stage 4 (severe) (10) HTN (hypertension) Code(s): I10 - ESSENTIAL (PRIMARY) HYPERTENSION (11) Hyperlipidemia Code(s): E78.5 - HYPERLIPIDEMIA, UNSPECIFIED (12) Morbid obesity Code(s): E66.01 - MORBID (SEVERE) OBESITY DUE TO EXCESS CALORIES (13) S/P CABG (coronary artery bypass graft) Code(s): Z95.1 - PRESENCE OF AORTOCORONARY BYPASS GRAFT Assessment/Plan This is a 88 y/o man with a PMHx of HTN, HLD, Afib (on Eliquis), CAD s/p CABG, CHF, , COPD (4L), Restrictive Lung Disease (Asbestos Exposure), DM, UC, BPH, Dementia (mild). Admitted to Telemetry for Acute on Chronic CHF Exacerbation, Acute Respiratory Failure with Hypoxia, Pneumonia, CKD for further evaluation of their emergent condition. Plan: Admit to Tele Continue cardiac monitoring Serial Enzymes BNP 3504 Lasix given in ED, will continue and monitor renal function closely Chest Xray image- Cardiomegaly, pulm vascular congestion CT Chest done on 11/01 outpatient- plueral thickening with calcifications LL chest. small pleural effusion and subsegmental atelectasis/consildation LLL suggestive pneumonia. left adrenal nodule unchanged EKG- Afib Appreciate Cardiology consult Appreciate ID consult Appreciate Pulmonology consult [id number] Score 3 Blood Cultures-pending Urine Legionella-pending Will start Zosyn and defer to ID Monitor CBC, BMP Continue home meds Strict INOs Daily weights FEN- Fluid Restriction 1L, replete lytes prn, Low Na, Diabetic Diet DVT ppx- OOB, SCDs, Eliquis Dispo: Requires Inpatient Care Visit type - Emergency Visit Emergency Visit: Yes ED Registration Date: 11/04/18 Care time: The patient presented to the Emergency Department on the above date and was hospitalized for further evaluation of their emergent condition. - New Patient This patient is new to me today: Yes Date on this admission: 11/04/18 - Critical Care Critical Care patient: No
--- NOTE | 2018-11-04 22:30 | PDOC ---
Documentation entered by Von Valderrama SCRIBE, acting as scribe for Selena Lima MD. Selena Lima MD: This documentation has been prepared by the Lavelle leal Nirvannie, SCRIBE, under my direction and personally reviewed by me in its entirety. I confirm that the documentation accurately reflects all work, treatment, procedures, and medical decision making performed by me. 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 He denies any recent fevers or chills, headache or dizziness. He denies any recent nausea, vomit, diarrhea or constipation. He denies any recent dysuria, frequency, urgency or hematuria. Allergies: NKDA Primary Care Physician: Sunil Barrow Cardiology: Dr. Starkey Youth Career Specialist: Dr. Downey - Physicial Exam PE: 11/04/18 21:06 GENERAL: Afebrile. Tachypneic. Awake, alert, and fully oriented, in no acute distress HEAD: No signs of trauma EYES: PERRLA, EOMI, sclera anicteric, conjunctiva clear ENT: Auricles normal inspection, hearing grossly normal, nares patent, oropharynx clear without exudates. Moist mucosa NECK: Normal ROM, supple, no lymphadenopathy, JVD, or masses LUNGS: + Left lung to armpit bowel sounds heard. HEART: Tachycardic. +Irregularly, irregular. No murmurs, rubs or gallops ABDOMEN: Soft, nontender, normoactive bowel sounds. No guarding, no rebound. No masses EXTREMITIES: Normal range of motion. No clubbing or cyanosis. No cords, erythema, or tenderness NEUROLOGICAL: Cranial nerves II through XII grossly intact. Normal speech SKIN: Warm, Dry, normal turgor, no rashes or lesions noted. - Medical Decision Making 11/04/18 21:[address] Moseley and he tells me that with zaroxolyn, he has been drying out the patient and requests that we not hydrate pateint. Pt has well controlled afib; Pt simply has respiratory failure. He requires admission. CT scan done 3 days ago on file. Today pt afebrile no elevaion of WBC and he has no cough. I placed consults for patient's pulm Brill, and cards Francescone. Pt to be admitted to the hospitalist team. HE is stable on BiPAP 11/04/18 22:29 Pt admitted to GENERAL INTERNAL MEDICINE DOCTOR hospitalist. Heart Score/ECG Review - ECG Intrepretation Rhythm: Irregularly Irregular - [place]: Normal - P and [place] Delta Wave(s) Present: No WPW: No - QRS Comment:: 11/04/18 20:10 AFIB - ST and T Early Repolarization: No Non Specific ST-T Wave changes: No Flattened T Waves: No Prolonged Q-T Interval: No - ECG Impressions Normal ECG: Yes Non-specific ST Elevation: No Ischemic Changes: No Torsades neptali Pointes: No WPW: No
[2018-11-05] MEDS ORDERED: PIPERACILLIN/TAZOB 3.375 GM 3.375 GM in DEXTROSE 5%-WATER - 50 ML IVPB ONE (01:31)
[2018-11-05 02:08] LABS: ALLENS TEST POSITIVE; ARTERIAL BLD GAS O2 SATURATION 93.8 % (95-98); ARTERIAL BLOOD GAS BASE EXCESS 11.1 meq/l (-2-2); ARTERIAL BLOOD GAS PO2 74.4 mmHg (80-105); ARTERIAL BLOOD GAS pH 7.33 (7.35-7.45)
[2018-11-05 02:12] LABS: ARTERIAL BLOOD GAS PCO2 77.3 mmHg (35-45)
[2018-11-05] MEDS ORDERED: APIXABAN 5 MG TABLET PO ONE (02:31)
[2018-11-05] MEDS ORDERED: PIPERACILLIN/TAZOB 3.375 GM 3.375 GM/50 ML BAG IVPB ONE (02:32)
[2018-11-05] MEDS: APIXABAN 2.5 MG TABLET PO SCH ×3 (02:41→22:05)
[2018-11-05] MEDS: INSULIN SLIDING SCALE (NOVOLOG) 1 VIAL SQ SCH ×5 (02:45→22:04)
[2018-11-05] MEDS ORDERED: LEVOTHYROXINE NA 25 MCG TABLET (FP) PO SCH (07:00)
[2018-11-05] MEDS ORDERED: LEVOTHYROXINE NA 25 MCG TABLET (FP) ONE (07:03)
--- NOTE | 2018-11-05 08:43 | CON.CARD ---
Consult Consult Specialty:: cardio - History of Present Illness Chief Complaint: sob, hypoxia History of Present Illness: 88 M here with sob. reportedly noted to be labored breathing at home, and hypoxic 70-74%. On arrival to the ED, the patient was tachypneic with labored breathing and was placed on Bipap. currently states he is very sob, but comfortable with bipap on. states sob at home no better when laying down or sitting up. states legs more swollen at home lately--having to elevate them constantly. 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 History of Recent Travel: No Home Medications - Allergies Allergies/Adverse Reactions: Allergies Allergy/AdvReac Type Severity Reaction Status Date / Time No Known Allergies Allergy Verified 11/04/18 20:08 - Home Medications Home Medications: Ambulatory Orders Sitagliptin Phosphate [Januvia -] 25 mg PO DAILY@0700 #90 tab 10/14/14 Spironolactone [Aldactone -] 25 mg PO DAILY #30 tablet 03/31/17 Aspirin 81 mg PO DAILY 04/10/17 Insulin Glargine,Hum.rec.anlog [Lantus] 60 unit SQ DAILY 04/10/17 Febuxostat [Uloric] 40 mg PO DAILY 02/20/18 Levothyroxine [Synthroid -] 0.05 mg PO DAILY 02/20/18 Linaclotide [Linzess] 290 mcg PO DAILY 02/20/18 Metoprolol Succinate [Toprol Xl] 50 mg PO BID 02/20/18 Apixaban [Eliquis -] 2.5 mg PO BID 03/30/18 Colchicine [Mitigare] 0.6 mg PO BID 04/10/18 Torsemide 100 mg PO BID 05/19/18 Pramipexole Dihydrochloride [Mirapex -] 0.25 mg PO DAILY 10/27/18 Family Disease History - Family Disease History Family History: Denies (no known cmp) Review of Systems - Review of Systems Constitutional: denies: Chills, Fever Eyes: denies: Eye Pain HENT: denies: Nasal Congestion Neck: denies: Stiffness Cardiovascular: denies: Palpitations Respiratory: denies: Orthopnea, PND Gastrointestinal: denies: Diarrhea, Rectal Bleeding Genitourinary: denies: Burning, Hematuria Musculoskeletal: denies: Muscle Pain Integumentary: denies: Rash Neurological: denies: Numbness, Seizure, Syncope Endocrine: denies: Excessive Sweating Hematology/Lymphatic: denies: Excessive Bleeding Vital Signs: Vital Signs Temperature 97.4 F L 11/05/18 06:57 Pulse Rate 77 11/05/18 07:25 Respiratory Rate 21 H 11/05/18 07:25 Blood Pressure 115/66 11/05/18 07:25 O2 Sat by Pulse Oximetry (%) 95 11/05/18 08:14 Constitutional: Yes: Well Nourished, No Distress, Obese Eyes: No: Sclera Icterus HENT: No: Nasal Congestion Neck: No: Decreased ROM Respiratory: Yes: CTA Bilaterally. No: Accessory Muscle Use, Rales, Wheezes Gastrointestinal: Yes: Normal Bowel Sounds. No: Distention, Hepatomegaly, Palpable Mass, Tenderness Cardiovascular: Yes: Regular Rate and Rhythm JVD: No Carotid Bruit: No PMI: Non-Displaced Heart Sounds: Yes: S1, S2. No: Gallop Murmur: No: Systolic Murmur, Diastolic Murmur Musculoskeletal: Yes: Other (No kyphosis) Extremities: No: Cool, Cyanosis Edema: Yes (1+ pretib) Peripheral Pulses: 2+ Left Carotid, 2+ Right Carotid, 2+ Left Doralis Pedis, 2+ Right Dorsalis Pedis Integumentary: No: Jaundice Neurological: Yes: Alert, Oriented (x3) Psychiatric: No: Agitated - Other Data Labs, Other Data: CBC, BMP 11/04/18 19:55 11/04/18 19:55 INR, PTT INR 1.08 (0.83-1.09) 11/04/18 19:55 Troponin, BNP 11/04/18 19:55 Troponin I < 0.02 B-Natriuretic Peptide 3504.8 H Troponin, BNP 11/04/18 19:55 Troponin I < 0.02 B-Natriuretic Peptide 3504.8 H Assessment/Plan Echo 04/2018: EF 45%, mod MR/TR, at least mild , moderate to severe PHTN Nuclear stress 2017: Pharm: small inferolat infarct, mild arlin-infarct ischemia , Overall EF 35-40% CXR: "vs prior, again noted is...congestive changes" ECG: afib, nonsp TWA lateral leads--no change vs prior tele: afib, HRs good IMP: -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 (home regimen: torsemide 100 bid, spironolactone 25, metopr. no BETTY/ARB due to CKD) -Chronic respiratory failure -Asbestos lung dz/ ILD, on home O2. 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 required lasix 100 iv bid diuresis then. -phys exam difficult for volume assessment (very thick neck). BNP 3K, ranges 2K- 3K (in setting of KOFI would expect much higher than baseline if decomp HF). CXR images reviewed: no vasc redistribution, no signif effusions, not signif changed vs 09/06 = not convinced there is congestion present. -however severe hypoxic resp failure, could be predominantly right sided process. -KOFI with creat 2.9--suspect cardiorenal syndrome given similar process during last chf admit.-->to 2.4 after lasix 40 IV yesterday. -remains very symptomatic, requiring bipap. will try lasix 100 IV x 1 today, assess UOP, sx response, weight -continued NIPPV, suppl O2 per pmd, hospitalist -ECG non-ischemic. troponin neg x1, repeat ordered -given the extremely low risk of cardiomems device (essentially risk of a routine RHC), and the hi risk of permanent worsening of renal fxn with recurrent CHF episodes or with overdiuresis in pt with extremely limited ability to assess volume status on clinical grounds, will strongly rec they continue to discuss this possibility with dr dumont (not an option until he is well diuresed and stable) -tele monitoring
[2018-11-05 09:02] LABS: BASO % 1.4 % (0-2.0); EOS % 2.2 % (0-4.5); HEMOGLOBIN 11.5 GM/dL (11.7-16.9); LYMPH % 14.5 % (8-40); MCH 29.8 pg (25.7-33.7); MCHC 32.7 g/dl (32.0-35.9); MEAN CELL VOLUME 90.9 fl (80-96); MEAN PLT VOLUME 8.4 fl (7.5-11.1); MONO % 14.9 % (3.8-10.2); PLATELET COUNT 151 K/MM3 (134-434); RBC 3.85 M/mm3 (4.00-5.60); RDW 18.8 % (11.9-15.9); WHITE BLOOD COUNT 8.1 K/mm3 (4.0-10.0)
[2018-11-05 09:23] LABS: ANION GAP 4 MMOL/L (8-16); BLOOD UREA NITROGEN 67.6 mg/dL (7-18); CALCIUM 8.6 mg/dL (8.5-10.1); CHLORIDE 94 mmol/L (98-107); CO2 43 mmol/L (21-32); CREATININE 2.4 mg/dL (0.55-1.3); GLUCOSE,RANDOM 162 mg/dL (74-106); MAGNESIUM 2.5 mg/dL (1.8-2.4); POTASSIUM 4.1 mmol/L (3.5-5.1); SODIUM 141 mmol/L (136-145)
[2018-11-05] MEDS: ASPIRIN 81 MG CHEWABLE TABLETS PO SCH (09:59)
[2018-11-05] MEDS: PRAMIPEXOLE DIHYDROCHLORIDE 0.25 MG TABLET PO SCH (09:59)
[2018-11-05] MEDS: COLCHICINE 0.6 MG CAP PO SCH ×2 (09:59→22:05)
[2018-11-05] MEDS ORDERED: PATIENT'S OWN MEDICATION (NON-FORMULARY) (Linaclotide [Linzess] 290 MCG) PO SCH (10:00)
[2018-11-05] MEDS: FEBUXOSTAT 40 MG TAB PO SCH (10:00)
[2018-11-05] MEDS ORDERED: FUROSEMIDE 40 MG/4 ML INJECTABLE VIAL IVPB ONE (10:30)
[2018-11-05] MEDS ORDERED: FUROSEMIDE 40 MG/4 ML INJECTABLE VIAL ONE (11:14)
--- NOTE | 2018-11-05 11:32 | EKG ---
Test Reason : Blood Pressure : / mmHG Vent. Rate : 094 BPM Atrial Rate : 091 BPM P-R Int : 000 ms QRS Dur : 110 ms QT Int : 364 ms P-R-T Axes : 000 -23 086 degrees QTc Int : 455 ms ATRIAL FIBRILLATION ABNORMAL ECG WHEN COMPARED WITH ECG OF 27-OCT-2018 11:33, VENT. RATE HAS INCREASED BY 33 BPM Confirmed by RIC CRUZ MD ([id number]) on 11/05/2018 11:32:33 AM Referred By: Confirmed By:RIC CRUZ MD
--- NOTE | 2018-11-05 11:45 | CON.PULM ---
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 Recent admission 10/27-10/29 for seizure and syncope. Admitted via the ER due to SOB x 4 days. No travel history or sick contacts. No fever or chills. Apparently was found to be hypoxic to 70% at home by EMS. Has clinically improved on NIPPV support. Unclear details of his sleep apnea history. - History Source History Provided By: Patient, Medical Record Limitations to Obtaining History: Poor Historian - Past Medical History INTERMEDIATE MANAGER: Yes: Dementia (mild), Other (Mild cognitive impairment) Cardio/Vascular: Yes: AFIB, Aortic Stenosis, CAD, HTN, Hyperlipdemia Pulmonary: Yes: COPD, O2 Dependent, Sleep Apnea, Other (Extensive pleural disease. 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 History of Recent Travel: No Home Medications - Allergies Allergies/Adverse Reactions: Allergies Allergy/AdvReac Type Severity Reaction Status Date / Time No Known Allergies Allergy Verified 11/04/18 20:08 - Home Medications Home Medications: Ambulatory Orders Sitagliptin Phosphate [Januvia -] 25 mg PO DAILY@0700 #90 tab 10/14/14 Spironolactone [Aldactone -] 25 mg PO DAILY #30 tablet 03/31/17 Aspirin 81 mg PO DAILY 04/10/17 Insulin Glargine,Hum.rec.anlog [Lantus] 60 unit SQ DAILY 04/10/17 Febuxostat [Uloric] 40 mg PO DAILY 02/20/18 Levothyroxine [Synthroid -] 0.05 mg PO DAILY 02/20/18 Linaclotide [Linzess] 290 mcg PO DAILY 02/20/18 Metoprolol Succinate [Toprol Xl] 50 mg PO BID 02/20/18 Apixaban [Eliquis -] 2.5 mg PO BID 03/30/18 Colchicine [Mitigare] 0.6 mg PO BID 04/10/18 Torsemide 100 mg PO BID 05/19/18 Pramipexole Dihydrochloride [Mirapex -] 0.25 mg PO DAILY 10/27/18 Review of Systems - Review of Systems Constitutional: reports: Malaise. denies: Chills, Night Sweats, Unintentional Wgt. Loss Eyes: reports: No Symptoms HENT: reports: No Symptoms Neck: reports: No Symptoms Cardiovascular: reports: Edema, Shortness of Breath. denies: Chest Pain, Palpitations Respiratory: reports: Cough, Orthopnea, Snoring, SOB, SOB on Exertion. denies: Hemoptysis, Wheezing Gastrointestinal: reports: No Symptoms Genitourinary: reports: No Symptoms Breasts: reports: No Symptoms Reported Musculoskeletal: reports: No Symptoms Integumentary: reports: No Symptoms Neurological: reports: No Symptoms Endocrine: reports: No Symptoms Hematology/Lymphatic: reports: No Symptoms Psychiatric: reports: No Symptoms Physical Exam Vital Sings: Vital Signs Temperature 97.4 F L 11/05/18 06:57 Pulse Rate 77 11/05/18 11:03 Respiratory Rate 28 H 11/05/18 11:03 Blood Pressure 108/66 11/05/18 11:03 O2 Sat by Pulse Oximetry (%) 96 11/05/18 11:03 Constitutional: Yes: Mild Distress, Obese Eyes: Yes: Conjunctiva Clear, EOM Intact HENT: Yes: Atraumatic, Normocephalic Neck: Yes: Supple, Trachea Midline Cardiovascular: Yes: Tachycardia Respiratory: Yes: Accessory Muscle Use, Cough, Diminished, On BiPap, Rales, Rhonchi, SOB, SOB on Exertion, Tachypnea. No: Stridor, Wheezes ...Inspection: Yes: WNL ...Clubbing: No Gastrointestinal: Yes: Normal Bowel Sounds, Soft, Abdomen, Obese Renal/: Yes: WNL Musculoskeletal: Yes: WNL Extremities: Yes: WNL Edema: Yes Peripheral Pulses WNL: Yes Integumentary: Yes: WNL Neurological: Yes: WNL, Alert, Oriented ...Motor Strength: WNL Psychiatric: Yes: WNL, Alert, Oriented Labs: CBC, BMP 11/05/18 08:45 11/05/18 08:45 ABG Results ABG pH 7.33 (7.35-7.45) L 11/05/18 01:45 ABG pCO2 at Pt Temp 77.3 mmHg (35-45) H* 11/05/18 01:45 ABG pO2 at Pt Temp 74.4 mmHg (80-105) L 11/05/18 01:45 ABG HCO3 39.8 mmol/L (22-27) H 11/05/18 01:45 ABG O2 Sat (Measured) 93.8 % (95-98) L 11/05/18 01:45 ABG O2 Content 16.7 % vol (15-22) 11/05/18 01:45 ABG Base Excess 11.1 meq/l (-2-2) H 11/05/18 01:45 Imaging - Results Chest X-ray: Report Reviewed, Image Reviewed Problem List - Problems (1) Acute respiratory failure with hypercapnia Code(s): J96.02 - ACUTE RESPIRATORY FAILURE WITH HYPERCAPNIA (2) Atrial fibrillation Code(s): I48.91 - UNSPECIFIED ATRIAL FIBRILLATION Qualifiers: (3) CHF, acute on chronic Code(s): I50.9 - HEART FAILURE, UNSPECIFIED Qualifiers: (4) COPD (chronic obstructive pulmonary disease) Code(s): J44.9 - CHRONIC OBSTRUCTIVE PULMONARY DISEASE, UNSPECIFIED (5) Hypoxemia Code(s): R09.02 - HYPOXEMIA (6) ASHD (arteriosclerotic heart disease) Code(s): I25.10 - ATHSCL HEART DISEASE OF [place] CORONARY ARTERY W/O ANG PCTRS (7) Acute on chronic diastolic CHF (congestive heart failure) Code(s): I50.33 - ACUTE ON CHRONIC DIASTOLIC (CONGESTIVE) HEART FAILURE (8) Acute on chronic respiratory failure with hypoxia and hypercapnia Code(s): J96.21 - ACUTE AND CHRONIC RESPIRATORY FAILURE WITH HYPOXIA; J96.22 - ACUTE AND CHRONIC RESPIRATORY FAILURE WITH HYPERCAPNIA (9) Acute on chronic systolic (congestive) heart failure Code(s): I50.23 - ACUTE ON CHRONIC SYSTOLIC (CONGESTIVE) HEART FAILURE (10) Asbestos pleurisy Code(s): J94.8 - OTHER SPECIFIED PLEURAL CONDITIONS (11) CAD (coronary artery disease) Code(s): I25.10 - ATHSCL HEART DISEASE OF [place] CORONARY ARTERY W/O ANG PCTRS Qualifiers: Coronary Disease-Associated Artery/Lesion type: bypass graft, autologous artery Associated angina: without angina Qualified Code(s): I25.810 - Atherosclerosis of coronary artery bypass graft(s) without angina pectoris (12) CKD (chronic kidney disease) Code(s): N18.9 - CHRONIC KIDNEY DISEASE, UNSPECIFIED Qualifiers: Chronic kidney disease stage: stage 3 (moderate) Qualified Code(s): N18.3 - Chronic kidney disease, stage 3 (moderate) (13) DM type 2 (diabetes mellitus, type 2) Code(s): E11.9 - TYPE 2 DIABETES MELLITUS WITHOUT COMPLICATIONS Qualifiers: Diabetes mellitus oysterman insulin use: with chcf use Chronic kidney disease stage: stage 4 (severe) (14) HTN (hypertension) Code(s): I10 - ESSENTIAL (PRIMARY) HYPERTENSION (15) Hyperlipidemia Code(s): E78.5 - HYPERLIPIDEMIA, UNSPECIFIED (16) Leg swelling Code(s): M79.89 - OTHER SPECIFIED SOFT TISSUE DISORDERS (17) Morbid obesity Code(s): E66.01 - MORBID (SEVERE) OBESITY DUE TO EXCESS CALORIES (18) Pleural effusion Code(s): J90 - PLEURAL EFFUSION, NOT ELSEWHERE CLASSIFIED (19) Pulmonary hypertension Code(s): I27.20 - PULMONARY HYPERTENSION, UNSPECIFIED (20) S/P CABG (coronary artery bypass graft) Code(s): Z95.1 - PRESENCE OF AORTOCORONARY BYPASS GRAFT (21) Seizure Code(s): R56.9 - UNSPECIFIED CONVULSIONS (22) Sleep apnea Code(s): G47.30 - SLEEP APNEA, UNSPECIFIED Qualifiers: Sleep apnea type: unspecified type Qualified Code(s): G47.30 - Sleep apnea , unspecified Assessment/Plan Diuresis with Lasix Do not clinically or radiographically suspect PNA: monitor off ABX Do not suspect AE of COPD: BD TX but would monitor off systemic steroids Trial of VM with NIPPV support as needed Daily weights Follow I & O Continue AC Aspiration precautions If lethargic or increased WOB -> re-check ABG Cardiac Telemetry monitoring Thank you. Dr Martinez
[2018-11-05 11:53] LABS: ARTERIAL BLD GAS O2 SATURATION 93.9 % (95-98); ARTERIAL BLOOD GAS BASE EXCESS 11.7 meq/l (-2-2); ARTERIAL BLOOD GAS pH 7.32 (7.35-7.45)
[2018-11-05 11:59] LABS: ALLENS TEST POSITIVE
--- NOTE | 2018-11-05 13:01 | PN ---
Physical Exam: SUBJECTIVE: Patient seen and examined pt is much better and on c pap alert and awake with family and c/o leg swellings no fever or chillls OBJECTIVE: Vital Signs Period Temp Pulse Resp BP Sys/Junior Pulse Ox Last 24 Hr 97.4 F-97.5 F 72-97 21-95 100-123/60-79 95-100 GENERAL: The patient is awake, alert, and fully oriented, on bipap HEAD: Normal with no signs of trauma. EYES: PERRL, extraocular movements intact, sclera anicteric, conjunctiva clear. No ptosis. ENT: Ears normal, nares patent, oropharynx clear without exudates, moist mucous membranes. NECK: Trachea midline, full range of motion, supple. LUNGS: Breath sounds equal, clear to auscultation bilaterally, no wheezes, no crackles,moderate a/e HEART: Regular rate and rhythm, S1, S2 without murmur, rub or gallop. ABDOMEN: Soft, nontender, nondistended, normoactive bowel sounds, no guarding, no rebound, no hepatosplenomegaly, no masses. EXTREMITIES: bilateral edema NEUROLOGICAL: Cranial nerves II through XII grossly intact. Normal speech, gait not observed. Laboratory Results - last 24 hr 11/04/18 11/04/18 11/04/18 19:55 19:55 19:55 WBC 8.3 RBC 4.02 Hgb 12.0 Hct 36.9 MCV 91.9 MCH 30.0 MCHC 32.6 RDW 19.1 H Plt Count 152 MPV 8.9 Absolute Neuts (auto) 5.3 Neutrophils % 63.5 Lymphocytes % 17.9 Monocytes % 15.5 H Eosinophils % 2.0 Basophils % 1.1 Nucleated RBC % 0 PT with INR INR PTT (Actin FS) Anticoagulation Therapy Puncture Site ABG pH ABG pCO2 at Pt Temp ABG pO2 at Pt Temp ABG HCO3 ABG O2 Sat (Measured) ABG O2 Content ABG Base Excess Esteban Test O2 Delivery Device Oxygen Flow Rate Vent Mode Vent Rate Mechanical Rate Pressure Support Vent Sodium 137 Potassium 4.7 Chloride 93 L Carbon Dioxide 42 H Anion Gap 3 L BUN 67.7 H Creatinine 2.9 H Est GFR (CKD-EPI)AfAm 21.55 Est GFR (CKD-EPI)NonAf 18.60 POC Glucometer Random Glucose 226 H Calcium 8.3 L Magnesium Total Bilirubin 0.3 AST 20 ALT 29 Alkaline Phosphatase 101 Creatine Kinase 27 Troponin I < 0.02 B-Natriuretic Peptide 3504.8 H Total Protein 6.6 Albumin 3.3 L 11/04/18 11/04/18 11/05/18 19:55 20:22 01:45 WBC RBC Hgb Hct MCV MCH MCHC RDW Plt Count MPV Absolute Neuts (auto) Neutrophils % Lymphocytes % Monocytes % Eosinophils % Basophils % Nucleated RBC % PT with INR 12.80 INR 1.08 PTT (Actin FS) 31.4 Anticoagulation Therapy No Result Required. Puncture Site Right radial ABG pH 7.33 L ABG pCO2 at Pt Temp 77.3 H* ABG pO2 at Pt Temp 74.4 L ABG HCO3 39.8 H ABG O2 Sat (Measured) 93.8 L ABG O2 Content 16.7 ABG Base Excess 11.1 H Esteban Test Positive O2 Delivery Device Bipap Oxygen Flow Rate Yes Vent Mode No Result Required. Vent Rate 14 Mechanical Rate No Result Required. Pressure Support Vent No Result Required. Sodium Potassium Chloride Carbon Dioxide Anion Gap BUN Creatinine Est GFR (CKD-EPI)AfAm Est GFR (CKD-EPI)NonAf POC Glucometer Random Glucose Calcium Magnesium Total Bilirubin AST ALT Alkaline Phosphatase Creatine Kinase Troponin I B-Natriuretic Peptide Total Protein Albumin 11/05/18 11/05/18 11/05/18 02:44 07:10 08:45 WBC 8.1 RBC 3.85 L Hgb 11.5 L Hct 35.0 L MCV 90.9 MCH 29.8 MCHC 32.7 RDW 18.8 H Plt Count 151 MPV 8.4 Absolute Neuts (auto) 5.4 Neutrophils % 67.0 Lymphocytes % 14.5 Monocytes % 14.9 H Eosinophils % 2.2 Basophils % 1.4 Nucleated RBC % 0 PT with INR INR PTT (Actin FS) Anticoagulation Therapy Puncture Site ABG pH ABG pCO2 at Pt Temp ABG pO2 at Pt Temp ABG HCO3 ABG O2 Sat (Measured) ABG O2 Content ABG Base Excess Esteban Test O2 Delivery Device Oxygen Flow Rate Vent Mode Vent Rate Mechanical Rate Pressure Support Vent Sodium Potassium Chloride Carbon Dioxide Anion Gap BUN Creatinine Est GFR (CKD-EPI)AfAm Est GFR (CKD-EPI)NonAf POC Glucometer 164 112 Random Glucose Calcium Magnesium Total Bilirubin AST ALT Alkaline Phosphatase Creatine Kinase Troponin I B-Natriuretic Peptide Total Protein Albumin 11/05/18 11/05/18 11/05/18 08:45 11:06 11:40 WBC RBC Hgb Hct MCV MCH MCHC RDW Plt Count MPV Absolute Neuts (auto) Neutrophils % Lymphocytes % Monocytes % Eosinophils % Basophils % Nucleated RBC % PT with INR INR PTT (Actin FS) Anticoagulation Therapy No Result Required. Puncture Site Right radial ABG pH 7.32 L ABG pCO2 at Pt Temp 80.0 H* ABG pO2 at Pt Temp 75.0 L ABG HCO3 40.3 H ABG O2 Sat (Measured) 93.9 L ABG O2 Content 14.9 L ABG Base Excess 11.7 H Esteban Test Positive O2 Delivery Device No Result Required. Oxygen Flow Rate Yes Vent Mode No Result Required. Vent Rate No Result Required. Mechanical Rate No Result Required. Pressure Support Vent No Result Required. Sodium 141 Potassium 4.1 Chloride 94 L Carbon Dioxide 43 H Anion Gap 4 L BUN 67.6 H Creatinine 2.4 H Est GFR (CKD-EPI)AfAm 27.09 Est GFR (CKD-EPI)NonAf 23.38 POC Glucometer 179 Random Glucose 162 H Calcium 8.6 Magnesium 2.5 H Total Bilirubin AST ALT Alkaline Phosphatase Creatine Kinase Troponin I < 0.02 B-Natriuretic Peptide Total Protein Albumin Active Medications Generic Name Dose Route Start Last Admin Trade Name Freq PRN Reason Stop Dose Admin Apixaban 2.5 mg 11/05/18 01:00 11/05/18 09:59 Eliquis - PO 2.5 mg BID JOE Administration Aspirin 81 mg 11/05/18 10:00 11/05/18 09:59 Asa - PO 81 mg DAILY JOE Administration Colchicine 0.6 mg 11/05/18 10:00 11/05/18 09:59 Colcrys PO 0.6 mg BID JOE Administration Febuxostat 40 mg 11/05/18 10:00 11/05/18 10:00 Uloric - PO 40 mg DAILY JOE Administration Insulin Aspart 0 vial 11/04/18 22:00 11/05/18 11:40 Novolog Vial Sliding Scale - SQ 2 units ACHS JOE Administration Protocol Levothyroxine Sodium 50 mcg 11/05/18 08:05 Synthroid - PO DAILY@0700 JOE Metoprolol Succinate 50 mg 11/05/18 10:00 11/05/18 09:59 Toprol Xl - PO 50 mg BID JOE Administration Non-Formulary Medication 290 mcg 11/05/18 10:00 Linaclotide [Linzess] PO DAILY JOE Pramipexole Dihydrochloride 0.25 mg 11/05/18 10:00 11/05/18 09:59 Mirapex - PO 0.25 mg DAILY JOE Administration ASSESSMENT/PLAN: This is a 88 y/o man with a PMHx of HTN, HLD, Afib (on Eliquis), CAD s/p CABG, CHF, , COPD (4L), Restrictive Lung Disease (Asbestos Exposure), DM, UC, BPH, Dementia (mild). Admitted to Telemetry for Acute on Chronic CHF Exacerbation, Acute Respiratory Failure with Hypoxia, Pneumonia, CKD for further evaluation of their emergent condition. Plan: 1-cardiac problems Admit to Tele Continue cardiac monitoring Serial Enzymes BNP 3504 Lasix given in ED, will continue and monitor renal function closely Chest Xray image- Cardiomegaly, pulm vascular congestion CT Chest done on 11/01 outpatient- plueral thickening with calcifications LL chest. small pleural effusion and subsegmental atelectasis/consildation LLL suggestive pneumonia. left adrenal nodule unchanged EKG- Afib cardio f/u 2 Respiratoy failure Appreciate Pulmonology consult oxygen and nebulizer and bipap machine 3- Pneumonia Blood Cultures-pending Urine Legionella-pending Will start Zosyn and defer to ID Monitor CBC, BMP 4-diabetes insulin sliding scale and sugar f/u 5- atrial fibrilation eliquis and metoprolol 6-gout colchicine Visit type - Emergency Visit Emergency Visit: Yes ED Registration Date: 11/04/18 Care time: The patient presented to the Emergency Department on the above date and was hospitalized for further evaluation of their emergent condition. - New Patient This patient is new to me today: Yes Date on this admission: 11/05/18 - Critical Care Critical Care patient: No - Discharge Referral Referred to [facility] Med P.C.: No
--- NOTE | 2018-11-05 14:53 | CON.ID ---
Consult - History of Present Illness History of Present Illness: 88 y.o. 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 Also pt's home O2 may not have been working. In the ER he was noted to be initially tachycardic, tachypneic, hypoxic with O2 sat of 71% but afebrile. No reports of fever/rigors/cough/abd pain/n/v/d, dysuria, focal deficits recently. He is afebrile, alert, currently without distress but not a fully reliable source of history. - History Source History Provided By: Family Member, Medical Record - Past Medical History PASSPORT APPLICATION EXAMINER: Yes: Dementia (mild), Other (Mild cognitive impairment) Cardio/Vascular: Yes: AFIB, Aortic Stenosis, CAD, HTN, Hyperlipdemia Pulmonary: Yes: COPD, O2 Dependent, Sleep Apnea, Other (Extensive pleural disease. 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 History of Recent Travel: No Home Medications - Allergies Allergies/Adverse Reactions: Allergies Allergy/AdvReac Type Severity Reaction Status Date / Time No Known Allergies Allergy Verified 11/04/18 20:08 - Home Medications Home Medications: Ambulatory Orders Sitagliptin Phosphate [Januvia -] 25 mg PO DAILY@0700 #90 tab 10/14/14 Spironolactone [Aldactone -] 25 mg PO DAILY #30 tablet 03/31/17 Aspirin 81 mg PO DAILY 04/10/17 Insulin Glargine,Hum.rec.anlog [Lantus] 60 unit SQ DAILY 04/10/17 Febuxostat [Uloric] 40 mg PO DAILY 02/20/18 Levothyroxine [Synthroid -] 0.05 mg PO DAILY 02/20/18 Linaclotide [Linzess] 290 mcg PO DAILY 02/20/18 Metoprolol Succinate [Toprol Xl] 50 mg PO BID 02/20/18 Apixaban [Eliquis -] 2.5 mg PO BID 03/30/18 Colchicine [Mitigare] 0.6 mg PO BID 04/10/18 Torsemide 100 mg PO BID 05/19/18 Pramipexole Dihydrochloride [Mirapex -] 0.25 mg PO DAILY 10/27/18 Review of Systems - Review of Systems Constitutional: reports: No Symptoms Eyes: reports: No Symptoms HENT: reports: No Symptoms Neck: reports: No Symptoms Cardiovascular: reports: No Symptoms Respiratory: reports: SOB Gastrointestinal: reports: No Symptoms Genitourinary: reports: No Symptoms Musculoskeletal: reports: No Symptoms Integumentary: reports: No Symptoms Neurological: reports: No Symptoms Endocrine: reports: No Symptoms Hematology/Lymphatic: reports: No Symptoms Physical Exam Vital Signs: Vital Signs Temperature 98.2 F 11/05/18 14:20 Pulse Rate 82 11/05/18 14:20 Respiratory Rate 28 H 11/05/18 14:20 Blood Pressure 118/63 11/05/18 14:20 O2 Sat by Pulse Oximetry (%) 94 L 11/05/18 14:20 Constitutional: Yes: No Distress, Calm Eyes: Yes: Conjunctiva Clear, EOM Intact HENT: Yes: Atraumatic Neck: Yes: Supple, Trachea Midline Cardiovascular: Yes: Regular Rate and Rhythm Respiratory: Yes: On Venti-Mask Gastrointestinal: Yes: Normal Bowel Sounds, Soft, Abdomen, Obese Renal/: Yes: WNL Musculoskeletal: Yes: WNL Extremities: Yes: WNL Edema: LLE: 2+, RLE: 2+ Peripheral Pulses WNL: Yes Integumentary: Yes: WNL Neurological: Yes: Alert Labs: CBC, BMP 11/05/18 08:45 11/05/18 08:45 Laboratory Tests 11/04/18 11/04/18 11/04/18 19:55 19:55 19:55 WBC 8.3 RBC 4.02 Hgb 12.0 Hct 36.9 MCV 91.9 MCH 30.0 MCHC 32.6 RDW 19.1 H Plt Count 152 MPV 8.9 Absolute Neuts (auto) 5.3 Neutrophils % 63.5 Lymphocytes % 17.9 Monocytes % 15.5 H Eosinophils % 2.0 Basophils % 1.1 Nucleated RBC % 0 PT with INR INR PTT (Actin FS) Anticoagulation Therapy Puncture Site ABG pH ABG pCO2 at Pt Temp ABG pO2 at Pt Temp ABG HCO3 ABG O2 Sat (Measured) ABG O2 Content ABG Base Excess Esteban Test O2 Delivery Device Oxygen Flow Rate Vent Mode Vent Rate Mechanical Rate Pressure Support Vent Sodium 137 Potassium 4.7 Chloride 93 L Carbon Dioxide 42 H Anion Gap 3 L BUN 67.7 H Creatinine 2.9 H Est GFR (CKD-EPI)AfAm 21.55 Est GFR (CKD-EPI)NonAf 18.60 POC Glucometer Random Glucose 226 H Calcium 8.3 L Magnesium Total Bilirubin 0.3 AST 20 ALT 29 Alkaline Phosphatase 101 Creatine Kinase 27 Troponin I < 0.02 B-Natriuretic Peptide 3504.8 H Total Protein 6.6 Albumin 3.3 L 11/04/18 11/04/18 11/05/18 19:55 20:22 01:45 WBC RBC Hgb Hct MCV MCH MCHC RDW Plt Count MPV Absolute Neuts (auto) Neutrophils % Lymphocytes % Monocytes % Eosinophils % Basophils % Nucleated RBC % PT with INR 12.80 INR 1.08 PTT (Actin FS) 31.4 Anticoagulation Therapy No Result Required. Puncture Site Right radial ABG pH 7.33 L ABG pCO2 at Pt Temp 77.3 H* ABG pO2 at Pt Temp 74.4 L ABG HCO3 39.8 H ABG O2 Sat (Measured) 93.8 L ABG O2 Content 16.7 ABG Base Excess 11.1 H Esteban Test Positive O2 Delivery Device Bipap Oxygen Flow Rate Yes Vent Mode No Result Required. Vent Rate 14 Mechanical Rate No Result Required. Pressure Support Vent No Result Required. Sodium Potassium Chloride Carbon Dioxide Anion Gap BUN Creatinine Est GFR (CKD-EPI)AfAm Est GFR (CKD-EPI)NonAf POC Glucometer Random Glucose Calcium Magnesium Total Bilirubin AST ALT Alkaline Phosphatase Creatine Kinase Troponin I B-Natriuretic Peptide Total Protein Albumin 11/05/18 11/05/18 11/05/18 02:44 07:10 08:45 WBC 8.1 RBC 3.85 L Hgb 11.5 L Hct 35.0 L MCV 90.9 MCH 29.8 MCHC 32.7 RDW 18.8 H Plt Count 151 MPV 8.4 Absolute Neuts (auto) 5.4 Neutrophils % 67.0 Lymphocytes % 14.5 Monocytes % 14.9 H Eosinophils % 2.2 Basophils % 1.4 Nucleated RBC % 0 PT with INR INR PTT (Actin FS) Anticoagulation Therapy Puncture Site ABG pH ABG pCO2 at Pt Temp ABG pO2 at Pt Temp ABG HCO3 ABG O2 Sat (Measured) ABG O2 Content ABG Base Excess Esteban Test O2 Delivery Device Oxygen Flow Rate Vent Mode Vent Rate Mechanical Rate Pressure Support Vent Sodium Potassium Chloride Carbon Dioxide Anion Gap BUN Creatinine Est GFR (CKD-EPI)AfAm Est GFR (CKD-EPI)NonAf POC Glucometer 164 112 Random Glucose Calcium Magnesium Total Bilirubin AST ALT Alkaline Phosphatase Creatine Kinase Troponin I B-Natriuretic Peptide Total Protein Albumin 11/05/18 11/05/18 11/05/18 08:45 11:06 11:40 WBC RBC Hgb Hct MCV MCH MCHC RDW Plt Count MPV Absolute Neuts (auto) Neutrophils % Lymphocytes % Monocytes % Eosinophils % Basophils % Nucleated RBC % PT with INR INR PTT (Actin FS) Anticoagulation Therapy No Result Required. Puncture Site Right radial ABG pH 7.32 L ABG pCO2 at Pt Temp 80.0 H* ABG pO2 at Pt Temp 75.0 L ABG HCO3 40.3 H ABG O2 Sat (Measured) 93.9 L ABG O2 Content 14.9 L ABG Base Excess 11.7 H Esteban Test Positive O2 Delivery Device No Result Required. Oxygen Flow Rate Yes Vent Mode No Result Required. Vent Rate No Result Required. Mechanical Rate No Result Required. Pressure Support Vent No Result Required. Sodium 141 Potassium 4.1 Chloride 94 L Carbon Dioxide 43 H Anion Gap 4 L BUN 67.6 H Creatinine 2.4 H Est GFR (CKD-EPI)AfAm 27.09 Est GFR (CKD-EPI)NonAf 23.38 POC Glucometer 179 Random Glucose 162 H Calcium 8.6 Magnesium 2.5 H Total Bilirubin AST ALT Alkaline Phosphatase Creatine Kinase Troponin I < 0.02 B-Natriuretic Peptide Total Protein Albumin Imaging - Results Chest X-ray: Report Reviewed Problem List - Problems (1) Atrial fibrillation Code(s): I48.91 - UNSPECIFIED ATRIAL FIBRILLATION Qualifiers: (2) CHF, acute on chronic Code(s): I50.9 - HEART FAILURE, UNSPECIFIED Qualifiers: (3) COPD (chronic obstructive pulmonary disease) Code(s): J44.9 - CHRONIC OBSTRUCTIVE PULMONARY DISEASE, UNSPECIFIED (4) Hypoxemia Code(s): R09.02 - HYPOXEMIA (5) ASHD (arteriosclerotic heart disease) Code(s): I25.10 - ATHSCL HEART DISEASE OF [place] CORONARY ARTERY W/O ANG PCTRS (6) Acute kidney injury superimposed on CKD Code(s): N17.9 - ACUTE KIDNEY FAILURE, UNSPECIFIED; N18.9 - CHRONIC KIDNEY DISEASE, UNSPECIFIED (7) Acute on chronic respiratory failure with hypoxia and hypercapnia Code(s): J96.21 - ACUTE AND CHRONIC RESPIRATORY FAILURE WITH HYPOXIA; J96.22 - ACUTE AND CHRONIC RESPIRATORY FAILURE WITH HYPERCAPNIA (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 - OTHER SPECIFIED PLEURAL CONDITIONS (9) CAD (coronary artery disease) Code(s): I25.10 - ATHSCL HEART DISEASE OF [place] CORONARY ARTERY W/O ANG PCTRS Qualifiers: Coronary Disease-Associated Artery/Lesion type: bypass graft, autologous artery Associated angina: without angina Qualified Code(s): I25.810 - Atherosclerosis of coronary artery bypass graft(s) without angina pectoris (10) DM type 2 (diabetes mellitus, type 2) Code(s): E11.9 - TYPE 2 DIABETES MELLITUS WITHOUT COMPLICATIONS Qualifiers: Diabetes mellitus mcfp insulin use: with mcfp use Chronic kidney disease stage: stage 4 (severe) (11) HTN (hypertension) Code(s): I10 - ESSENTIAL (PRIMARY) HYPERTENSION (12) S/P CABG (coronary artery bypass graft) Code(s): Z95.1 - PRESENCE OF AORTOCORONARY BYPASS GRAFT Assessment/Plan 88 y.o. 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, JUAN, s/p nephrectomy, UC, BPH, gout, and mild dementia presents with c/o SOB x 4 days with increased leg swelling Acute hypoxemic respiratory failure Chronic respiratory failure Acute on chronic CHF Restrictive lung disease/Asbestosis KOFI on CKD CAD s/p CABG DM AFIB -- Pt is alert, afebrile, without leukoycytosis, saturating well on NRM -- Will hold off on antibiotics for now, CXR with congestion in addition to chronic lung changes -- Urinary Ag neg., Follow up blood culture results -- on supplemental O2, monitor vitals -- Monitor renal function, appears to be improving -- Pulmonary/Cardiology following Will follow Thank you
[2018-11-06] MEDS: INSULIN SLIDING SCALE (NOVOLOG) 1 VIAL SQ SCH ×4 (06:39→22:02)
[2018-11-06] MEDS: LEVOTHYROXINE NA 50 MCG TABLET (FP) PO SCH (06:41)
--- NOTE | 2018-11-06 08:02 | PN ---
Progress Note, Physician Chief Complaint: 88 y.o M was hospitalized to [facility] because of episode of low O2SAT at 72% and unable to improve oxygenation despite NIV and BIPAP at home. Decrease MS responsiveness and weakness. Seen by cardiology, pulmonary and ID-consults appreciated. Today awake in W/C , son Sunday in the room. History of Present Illness: Cronic hypercarbic respiratory failure. at night bipap 15/8 Persistent 6.7cm left basilar atelectasis/consolidation. CABG ASHD. DM type on Levemir/Januvia. CRI/ckd 4. 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 Previous Thoracentesis in the past-neg for malignancy. JUAN-at nights using CPAP. Chronic A.Fib. Combined CHF. Gout. Gouty arthritis. Previous rectal surgery for abscess, fistula at [facility]. - Current Medication List Current Medications: Active Medications Apixaban (Eliquis -) 2.5 mg PO BID [facility] Last Admin: 11/05/18 22:05 Dose: 2.5 mg Aspirin (Asa -) 81 mg PO DAILY [facility] Last Admin: 11/05/18 09:59 Dose: 81 mg Colchicine (Colcrys) 0.6 mg PO BID [facility] Last Admin: 11/05/18 22:05 Dose: 0.6 mg Febuxostat (Uloric -) 40 mg PO DAILY [facility] Last Admin: 11/05/18 10:00 Dose: 40 mg Insulin Aspart (Novolog Vial Sliding Scale -) 0 vial SQ [facility]; Protocol Last Admin: 11/06/18 06:39 Dose: Not Given Levothyroxine Sodium (Synthroid -) 50 mcg PO DAILY@0700 [facility] Last Admin: 11/06/18 06:41 Dose: 50 mcg Metoprolol Succinate (Toprol Xl -) 50 mg PO BID [facility] Last Admin: 11/05/18 22:05 Dose: 50 mg Non-Formulary Medication (Linaclotide [Linzess]) 290 mcg PO DAILY [facility] Pramipexole Dihydrochloride (Mirapex -) 0.25 mg PO DAILY [facility] Last Admin: 11/05/18 09:59 Dose: 0.25 mg - Objective Vital Signs: Vital Signs Temperature 98 F 11/06/18 01:16 Pulse Rate 90 11/06/18 05:13 Respiratory Rate 20 11/06/18 05:13 Blood Pressure 125/68 11/06/18 05:13 O2 Sat by Pulse Oximetry (%) 97 11/05/18 21:42 Constitutional: Yes: Calm Eyes: Yes: Conjunctiva Clear, EOM Intact HENT: Yes: Atraumatic, Normocephalic Neck: Yes: Supple, Trachea Midline, Decreased ROM Cardiovascular: Yes: Pulse Irregular, Murmur, S1, S2. No: JVD, Rub Respiratory: Yes: Diminished (B/L) Gastrointestinal: Yes: Normal Bowel Sounds, Soft, Abdomen, Obese. No: Palpable Mass, Tenderness, Vomiting ...Rectal Exam: Yes: Deferred Genitourinary: No: Anuria, Bladder Distention, CVA Tenderness - Left, CVA Tenderness - Right Breast(s): Yes: WNL Extremities: No: Calf Tenderness, Cold, Cyanosis Edema: Yes Edema: LLE: 1+, RLE: 1+ Peripheral Pulses WNL: No Integumentary: Yes: WNL Neurological: Yes: Alert, Confusion, Tremors, Unsteady Gait, Weakness, Other ( KOI). No: Aphasia, Dysarthria, Seizure, Unresponsive ...Motor Strength: WNL Psychiatric: Yes: WNL Labs: CBC, BMP 11/05/18 08:45 INR, PTT INR 1.08 (0.83-1.09) 11/04/18 19:55 - ....Imaging X-ray: Report Reviewed Problem List - Problems (1) Acute kidney injury superimposed on CKD Assessment/Plan: Follow BUN/Creat Follow electrolytes Code(s): N17.9 - ACUTE KIDNEY FAILURE, UNSPECIFIED; N18.9 - CHRONIC KIDNEY DISEASE, UNSPECIFIED (2) Acute on chronic respiratory failure with hypoxia and hypercapnia Assessment/Plan: BIPAP, NIV Code(s): J96.21 - ACUTE AND CHRONIC RESPIRATORY FAILURE WITH HYPOXIA; J96.22 - ACUTE AND CHRONIC RESPIRATORY FAILURE WITH HYPERCAPNIA (3) Acute on chronic systolic (congestive) heart failure Assessment/Plan: Continue diuretics Spironolactone, Loop diuretics. Code(s): I50.23 - ACUTE ON CHRONIC SYSTOLIC (CONGESTIVE) HEART FAILURE (4) CKD (chronic kidney disease) Code(s): N18.9 - CHRONIC KIDNEY DISEASE, UNSPECIFIED Qualifiers: Chronic kidney disease stage: stage 3 (moderate) Qualified Code(s): N18.3 - Chronic kidney disease, stage 3 (moderate) (5) Diabetes 1.5, managed as type 2 Assessment/Plan: Follow BGM Noted episodes of low BGM Novolog coverage. Code(s): E13.9 - OTHER SPECIFIED DIABETES MELLITUS WITHOUT COMPLICATIONS
[2018-11-06 08:41] LABS: CALCIUM 8.9 mg/dL (8.5-10.1); CREATININE 2.1 mg/dL (0.55-1.3)
[2018-11-06] MEDS ORDERED: PT OWN MED DRAWER 7, Y5N ONE ×2 (08:59→21:54)
[2018-11-06] MEDS: ASPIRIN 81 MG CHEWABLE TABLETS PO SCH (09:06)
[2018-11-06] MEDS: APIXABAN 2.5 MG TABLET PO SCH ×2 (09:06→21:54)
[2018-11-06] MEDS: COLCHICINE 0.6 MG CAP PO SCH ×2 (09:06→22:28)
[2018-11-06] MEDS: PRAMIPEXOLE DIHYDROCHLORIDE 0.25 MG TABLET PO SCH (09:07)
[2018-11-06] MEDS: FEBUXOSTAT 40 MG TAB PO SCH (09:46)
--- NOTE | 2018-11-06 10:20 | PN ---
Progress Note, Physician Chief Complaint: sob History of Present Illness: remains very sob. on bipap. trying to urinate with RN assistance but nothing coming out no cp, palpit remote ex cigs - Current Medication List Current Medications: Active Medications Apixaban (Eliquis -) 2.5 mg PO BID [facility] Last Admin: 11/06/18 09:06 Dose: 2.5 mg Aspirin (Asa -) 81 mg PO DAILY [facility] Last Admin: 11/06/18 09:06 Dose: 81 mg Colchicine (Colcrys) 0.6 mg PO BID [facility] Last Admin: 11/06/18 09:06 Dose: 0.6 mg Febuxostat (Uloric -) 40 mg PO DAILY [facility] Last Admin: 11/06/18 09:46 Dose: 40 mg Insulin Aspart (Novolog Vial Sliding Scale -) 0 vial SQ ACHS [facility]; Protocol Last Admin: 11/06/18 06:39 Dose: Not Given Levothyroxine Sodium (Synthroid -) 50 mcg PO DAILY@0700 [facility] Last Admin: 11/06/18 06:41 Dose: 50 mcg Metoprolol Succinate (Toprol Xl -) 50 mg PO BID [facility] Last Admin: 11/06/18 09:06 Dose: 50 mg Non-Formulary Medication (Linaclotide [Linzess]) 290 mcg PO DAILY [facility] Pramipexole Dihydrochloride (Mirapex -) 0.25 mg PO DAILY [facility] Last Admin: 11/06/18 09:07 Dose: 0.25 mg - Objective Vital Signs: Vital Signs Temperature 98.4 F 11/06/18 08:56 Pulse Rate 92 H 11/06/18 08:56 Respiratory Rate 22 H 11/06/18 08:56 Blood Pressure 114/57 L 11/06/18 08:56 O2 Sat by Pulse Oximetry (%) 91 L 11/06/18 08:15 Constitutional: Yes: No Distress, Calm Eyes: No: Sclera Icterus HENT: No: Nasal Congestion Cardiovascular: Yes: Regular Rate and Rhythm, S1, S2, Other (PMI non diplaced). No: JVD (prohibitively tds exam), Gallop, Murmur Respiratory: Yes: CTA Bilaterally. No: Accessory Muscle Use, Rales, Wheezes Gastrointestinal: Yes: Normal Bowel Sounds, Soft. No: Tenderness Musculoskeletal: Yes: Other (No kyphosis) Extremities: No: Cyanosis Edema: No Integumentary: No: Jaundice Neurological: Yes: Alert, Oriented (x3) Psychiatric: No: Agitated Labs: CBC, BMP 11/05/18 08:45 11/06/18 07:06 INR, PTT INR 1.08 (0.83-1.09) 11/04/18 19:55 Assessment/Plan Echo 04/2018: EF 45%, mod MR/TR, at least mild , moderate to severe PHTN Nuclear stress 2017: Pharm: small inferolat infarct, mild arlin-infarct ischemia , Overall EF 35-40% CXR: "vs prior, again noted is...congestive changes" ECG: afib, nonsp TWA lateral leads--no change vs prior tele: afib, HRs good, NSVT x 4b. artifact IMP: -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 (home regimen: torsemide 100 bid, spironolactone 25, metopr. no BETTY/ARB due to CKD) -Chronic respiratory failure -Asbestos lung dz/ ILD, on home O2. 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 required lasix 100 iv bid diuresis then. -phys exam difficult for volume assessment (very thick neck). BNP 3K, ranges 2K- 3K (low GFR confounds). wt 241, incr edema at home. CXR images reviewed: no vasc redistribution, no signif effusions, not signif changed vs 09/06 = not convinced there is congestion present. severe hypoxic resp failure, could be predominantly right sided process. -KOFI sec to cardiorenal syndrome (as in the past), improving with diuresis ( lasix 100 iv qd) back at his baseline range--lasix 100 iv bid today -continued NIPPV, suppl O2 per pmd, hospitalist -given the extremely low risk of cardiomems device (essentially risk of a routine RHC), and the hi risk of permanent worsening of renal fxn with recurrent CHF episodes or with overdiuresis in pt with extremely limited ability to assess volume status on clinical grounds, will strongly rec they continue to discuss this possibility with dr dumont (not an option until he is well diuresed and stable) -tele monitoring -? bladder/renal sono to r/o obstruction.
--- NOTE | 2018-11-06 10:48 | PN ---
Progress Note, Physician History of Present Illness: PULMONARY DROWSY ON BIPAP,-RESP DISTRESS,-TACHYPNEA - Current Medication List Current Medications: Active Medications Apixaban (Eliquis -) 2.5 mg PO BID [facility] Last Admin: 11/06/18 09:06 Dose: 2.5 mg Aspirin (Asa -) 81 mg PO DAILY [facility] Last Admin: 11/06/18 09:06 Dose: 81 mg Colchicine (Colcrys) 0.6 mg PO BID [facility] Last Admin: 11/06/18 09:06 Dose: 0.6 mg Febuxostat (Uloric -) 40 mg PO DAILY [facility] Last Admin: 11/06/18 09:46 Dose: 40 mg Insulin Aspart (Novolog Vial Sliding Scale -) 0 vial SQ ACHS [facility]; Protocol Last Admin: 11/06/18 06:39 Dose: Not Given Levothyroxine Sodium (Synthroid -) 50 mcg PO DAILY@0700 [facility] Last Admin: 11/06/18 06:41 Dose: 50 mcg Metoprolol Succinate (Toprol Xl -) 50 mg PO BID [facility] Last Admin: 11/06/18 09:06 Dose: 50 mg Non-Formulary Medication (Linaclotide [Linzess]) 290 mcg PO DAILY [facility] Pramipexole Dihydrochloride (Mirapex -) 0.25 mg PO DAILY [facility] Last Admin: 11/06/18 09:07 Dose: 0.25 mg - Objective Vital Signs: Vital Signs Temperature 98.4 F 11/06/18 08:56 Pulse Rate 92 H 11/06/18 08:56 Respiratory Rate 24 H 11/06/18 09:00 Blood Pressure 114/57 L 11/06/18 08:56 O2 Sat by Pulse Oximetry (%) 92 L 11/06/18 09:00 Constitutional: Yes: Well Nourished, Other (DROWSY) Eyes: Yes: WNL HENT: Yes: WNL Neck: Yes: WNL Cardiovascular: Yes: Pulse Irregular, S1, S2 Respiratory: Yes: Diminished, On BiPap Gastrointestinal: Yes: Normal Bowel Sounds, Soft Extremities: Yes: WNL Edema: Yes Labs: CBC, BMP 11/05/18 08:45 11/06/18 07:06 INR, PTT INR 1.08 (0.83-1.09) 11/04/18 19:55 Assessment/Plan Problem List - Problems (1) Acute respiratory failure with hypercapnia Code(s): J96.02 - ACUTE RESPIRATORY FAILURE WITH HYPERCAPNIA (2) Atrial fibrillation Code(s): I48.91 - UNSPECIFIED ATRIAL FIBRILLATION Qualifiers: (3) CHF, acute on chronic Code(s): I50.9 - HEART FAILURE, UNSPECIFIED Qualifiers: (4) COPD (chronic obstructive pulmonary disease) Code(s): J44.9 - CHRONIC OBSTRUCTIVE PULMONARY DISEASE, UNSPECIFIED (5) Hypoxemia Code(s): R09.02 - HYPOXEMIA (6) ASHD (arteriosclerotic heart disease) Code(s): I25.10 - ATHSCL HEART DISEASE OF [place] CORONARY ARTERY W/O ANG PCTRS (7) Acute on chronic diastolic CHF (congestive heart failure) Code(s): I50.33 - ACUTE ON CHRONIC DIASTOLIC (CONGESTIVE) HEART FAILURE (8) Acute on chronic respiratory failure with hypoxia and hypercapnia Code(s): J96.21 - ACUTE AND CHRONIC RESPIRATORY FAILURE WITH HYPOXIA; J96.22 - ACUTE AND CHRONIC RESPIRATORY FAILURE WITH HYPERCAPNIA (9) Acute on chronic systolic (congestive) heart failure Code(s): I50.23 - ACUTE ON CHRONIC SYSTOLIC (CONGESTIVE) HEART FAILURE (10) Asbestos pleurisy Code(s): J94.8 - OTHER SPECIFIED PLEURAL CONDITIONS (11) CAD (coronary artery disease) Code(s): I25.10 - ATHSCL HEART DISEASE OF [place] CORONARY ARTERY W/O ANG PCTRS Qualifiers: Coronary Disease-Associated Artery/Lesion type: bypass graft, autologous artery Associated angina: without angina Qualified Code(s): I25.810 - Atherosclerosis of coronary artery bypass graft(s) without angina pectoris (12) CKD (chronic kidney disease) Code(s): N18.9 - CHRONIC KIDNEY DISEASE, UNSPECIFIED Qualifiers: Chronic kidney disease stage: stage 3 (moderate) Qualified Code(s): N18.3 - Chronic kidney disease, stage 3 (moderate) (13) DM type 2 (diabetes mellitus, type 2) Code(s): E11.9 - TYPE 2 DIABETES MELLITUS WITHOUT COMPLICATIONS Qualifiers: Diabetes mellitus custodial insulin use: with exterminator termite use Chronic kidney disease stage: stage 4 (severe) (14) HTN (hypertension) Code(s): I10 - ESSENTIAL (PRIMARY) HYPERTENSION (15) Hyperlipidemia Code(s): E78.5 - HYPERLIPIDEMIA, UNSPECIFIED (16) Leg swelling Code(s): M79.89 - OTHER SPECIFIED SOFT TISSUE DISORDERS (17) Morbid obesity Code(s): E66.01 - MORBID (SEVERE) OBESITY DUE TO EXCESS CALORIES (18) Pleural effusion Code(s): J90 - PLEURAL EFFUSION, NOT ELSEWHERE CLASSIFIED (19) Pulmonary hypertension Code(s): I27.20 - PULMONARY HYPERTENSION, UNSPECIFIED (20) S/P CABG (coronary artery bypass graft) Code(s): Z95.1 - PRESENCE OF AORTOCORONARY BYPASS GRAFT (21) Seizure Code(s): R56.9 - UNSPECIFIED CONVULSIONS (22) Sleep apnea Code(s): G47.30 - SLEEP APNEA, UNSPECIFIED Qualifiers: Sleep apnea type: unspecified type Qualified Code(s): G47.30 - Sleep apnea , unspecified Assessment/Plan Diuresis with Lasix Trial of VM with NIPPV support as needed Daily weights Follow I & O Continue AC Aspiration precautions If lethargic or increased WOB -> re-check ABG DR HERNANDEZ
[2018-11-06 11:22] LABS: ARTERIAL BLD GAS O2 SATURATION 91.6 % (95-98); ARTERIAL BLOOD GAS BASE EXCESS 12.5 meq/l (-2-2); ARTERIAL BLOOD GAS pH 7.33 (7.35-7.45)
[2018-11-06 11:30] LABS: ARTERIAL BLOOD GAS PCO2 80.7 mmHg (35-45)
[2018-11-06 11:31] LABS: ALLENS TEST POSITIVE
[2018-11-06] MEDS: FUROSEMIDE 100 MG/10 ML INJECTABLE VIAL IVPB SCH ×2 (12:14→14:28)
--- NOTE | 2018-11-06 13:44 | PN ---
Progress Note, Physician History of Present Illness: patient awake alert still on bipap - Current Medication List Current Medications: Active Medications Apixaban (Eliquis -) 2.5 mg PO BID [facility] Last Admin: 11/06/18 09:06 Dose: 2.5 mg Aspirin (Asa -) 81 mg PO DAILY [facility] Last Admin: 11/06/18 09:06 Dose: 81 mg Colchicine (Colcrys) 0.6 mg PO BID [facility] Last Admin: 11/06/18 09:06 Dose: 0.6 mg Febuxostat (Uloric -) 40 mg PO DAILY [facility] Last Admin: 11/06/18 09:46 Dose: 40 mg Furosemide (Lasix Injection -) 100 mg IVPB BID@0600,1400 [facility] Last Admin: 11/06/18 12:14 Dose: 100 mg Insulin Aspart (Novolog Vial Sliding Scale -) 0 vial SQ ACHS [facility]; Protocol Last Admin: 11/06/18 12:35 Dose: 2 units Levothyroxine Sodium (Synthroid -) 50 mcg PO DAILY@0700 [facility] Last Admin: 11/06/18 06:41 Dose: 50 mcg Metoprolol Succinate (Toprol Xl -) 50 mg PO BID [facility] Last Admin: 11/06/18 09:06 Dose: 50 mg Non-Formulary Medication (Linaclotide [Linzess]) 290 mcg PO DAILY [facility] Pramipexole Dihydrochloride (Mirapex -) 0.25 mg PO DAILY [facility] Last Admin: 11/06/18 09:07 Dose: 0.25 mg - Objective Vital Signs: Vital Signs Temperature 98.4 F 11/06/18 08:56 Pulse Rate 92 H 11/06/18 08:56 Respiratory Rate 24 H 11/06/18 09:00 Blood Pressure 114/57 L 11/06/18 08:56 O2 Sat by Pulse Oximetry (%) 92 L 11/06/18 11:30 Constitutional: Yes: Calm, Mild Distress Cardiovascular: Yes: Regular Rate and Rhythm Respiratory: Yes: On BiPap, Poor Air Entry Gastrointestinal: Yes: Normal Bowel Sounds, Soft Musculoskeletal: Yes: WNL Extremities: Yes: Other Psychiatric: Yes: Alert Labs: CBC, BMP 11/05/18 08:45 11/06/18 07:06 INR, PTT INR 1.08 (0.83-1.09) 08/17/19 19:55 Assessment/Plan Problem List - Problems (1) Atrial fibrillation Code(s): I48.91 - UNSPECIFIED ATRIAL FIBRILLATION Qualifiers: (2) CHF, acute on chronic Code(s): I50.9 - HEART FAILURE, UNSPECIFIED Qualifiers: (3) COPD (chronic obstructive pulmonary disease) Code(s): J44.9 - CHRONIC OBSTRUCTIVE PULMONARY DISEASE, UNSPECIFIED (4) Hypoxemia Code(s): R09.02 - HYPOXEMIA (5) ASHD (arteriosclerotic heart disease) Code(s): I25.10 - ATHSCL HEART DISEASE OF [place] CORONARY ARTERY W/O ANG PCTRS (6) Acute kidney injury superimposed on CKD Code(s): N17.9 - ACUTE KIDNEY FAILURE, UNSPECIFIED; N18.9 - CHRONIC KIDNEY DISEASE, UNSPECIFIED (7) Acute on chronic respiratory failure with hypoxia and hypercapnia Code(s): J96.21 - ACUTE AND CHRONIC RESPIRATORY FAILURE WITH HYPOXIA; J96.22 - ACUTE AND CHRONIC RESPIRATORY FAILURE WITH HYPERCAPNIA (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 - OTHER SPECIFIED PLEURAL CONDITIONS (9) CAD (coronary artery disease) Code(s): I25.10 - ATHSCL HEART DISEASE OF [place] CORONARY ARTERY W/O ANG PCTRS Qualifiers: Coronary Disease-Associated Artery/Lesion type: bypass graft, autologous artery Associated angina: without angina Qualified Code(s): I25.810 - Atherosclerosis of coronary artery bypass graft(s) without angina pectoris (10) DM type 2 (diabetes mellitus, type 2) Code(s): E11.9 - TYPE 2 DIABETES MELLITUS WITHOUT COMPLICATIONS Qualifiers: Diabetes mellitus prison insulin use: with prison use Chronic kidney disease stage: stage 4 (severe) (11) HTN (hypertension) Code(s): I10 - ESSENTIAL (PRIMARY) HYPERTENSION (12) S/P CABG (coronary artery bypass graft) Code(s): Z95.1 - PRESENCE OF AORTOCORONARY BYPASS GRAFT Assessment/Plan 88 y.o. 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
--- NOTE | 2018-11-06 15:57 | CONSULT ---
Consultation: REQUESTING PROVIDER: Dr. Downey CONSULT REQUEST: We have been asked to medically evaluate this patient for ICU admission for hypoxic respiratory distress. HISTORY OF PRESENT ILLNESS: Patient is an 88 year old male with history of Afib (on Eliquis), coronary artery disease (s/p CABG), congestive heart failure, COPD (on home O2), obstructive sleep apnea, restrictive lung disease (history of asbestos exposure) , chrnic kidney disease (stage IV), hypertension, hyperlipidemia, insulin dependent diabetes mellitus, mild dementia admitted for hypoxic respiratory distress. Patient was initiated on BiLevel ventilation with improvement of his work of respiration. Per nursing staff, today patient had become significantly lethargic, minimally responsive and saturating to the 70s. Upon my encounter, patient on BiLevel ventilation (IPAP 12/ EPAP 5 rate 14, FiO2 50%). He appears drowsy, however arrousable to voice, and communicative. Saturating 92%, not using accessory muscles of respiration. REVIEW OF SYSTEMS: As per HPI. Unable to obtain further given patient's clinical condition. PHYSICAL EXAMINATION Vital Signs - 24 hr 11/05/18 11/05/18 11/05/18 16:00 18:00 21:00 Temperature 97.6 F Pulse Rate 83 Respiratory 20 Rate Blood Pressure 125/58 L O2 Sat by Pulse 96 97 Oximetry (%) 11/05/18 11/05/18 11/06/18 21:42 22:00 01:16 Temperature 98.1 F 98 F Pulse Rate 92 H 85 Respiratory 20 20 Rate Blood Pressure 100/56 L 116/69 O2 Sat by Pulse 97 Oximetry (%) 11/06/18 11/06/18 11/06/18 05:13 08:15 08:56 Temperature 98.4 F Pulse Rate 90 92 H Respiratory 20 22 H Rate Blood Pressure 125/68 114/57 L O2 Sat by Pulse 91 L Oximetry (%) 11/06/18 11/06/18 11/06/18 09:00 11:30 12:00 Temperature 98.4 F Pulse Rate 83 Respiratory 24 H 24 H Rate Blood Pressure 133/73 O2 Sat by Pulse 92 L 92 L Oximetry (%) GENERAL: Awake, alert to person, in no acute distress. HEAD: Normocephalic, atraumatic EYES: Pupils equal, round and reactive to light, extraocular movements intact, sclera anicteric, conjunctiva clear. EARS, NOSE, THROAT: Oropharynx clear without exudates. Moist mucous membranes. NECK: Supple without lymphadenopathy, or JVD. Negative stridor. LUNGS: Good inspiratory effort, with poor air entry bilaterally. Diffuse rhonchi auscultated bilaterally. HEART: Irregular rate and rhythm, Normal S1 and S2 without murmur. ABDOMEN: Obese abdomen. Soft, nontender, not distended, normoactive bowel sounds x4 quadrants. No guarding, no rebound tenderness. MUSCULOSKELETAL: Normal range of motion at all joints. No bony deformities or tenderness. EXTREMITIES: 2+ radial, drosalis pedis pulses bilaterally. Warm, well-perfused. NEUROLOGICAL: Cranial nerves II-XII intact. No gross focal deficits. PSYCHIATRIC: Cooperative, confused. SKIN: Warm, dry. Laboratory Results - last 24 hr 11/05/18 11/05/18 11/06/18 16:24 22:04 05:07 Anticoagulation Therapy Puncture Site ABG pH ABG pCO2 at Pt Temp ABG pO2 at Pt Temp ABG HCO3 ABG O2 Sat (Measured) ABG O2 Content ABG Base Excess Esteban Test O2 Delivery Device Oxygen Flow Rate Vent Mode Vent Rate Mechanical Rate Pressure Support Vent Sodium Potassium Chloride Carbon Dioxide Anion Gap BUN Creatinine Est GFR (CKD-EPI)AfAm Est GFR (CKD-EPI)NonAf POC Glucometer 132 123 86 Random Glucose Calcium 11/06/18 11/06/18 11/06/18 07:06 11:10 12:32 Anticoagulation Therapy No Result Required. Puncture Site Left radial ABG pH 7.33 L ABG pCO2 at Pt Temp 80.7 H* ABG pO2 at Pt Temp 68.0 L ABG HCO3 41.2 H ABG O2 Sat (Measured) 91.6 L ABG O2 Content 14.8 L ABG Base Excess 12.5 H Esteban Test Positive O2 Delivery Device Bipap Oxygen Flow Rate 40% Vent Mode No Result Required. Vent Rate No Result Required. Mechanical Rate No Result Required. Pressure Support Vent No Result Required. Sodium 142 Potassium 4.0 Chloride 95 L Carbon Dioxide 42 H Anion Gap 5 L BUN 65.0 H Creatinine 2.1 H Est GFR (CKD-EPI)AfAm 31.84 Est GFR (CKD-EPI)NonAf 27.47 POC Glucometer 180 Random Glucose 137 H Calcium 8.9 Active Medications Generic Name Dose Route Start Last Admin Trade Name Freq PRN Reason Stop Dose Admin Apixaban 2.5 mg 11/05/18 01:00 11/06/18 09:06 Eliquis - PO 2.5 mg BID [facility] Administration Aspirin 81 mg 11/05/18 10:00 11/06/18 09:06 Asa - PO 81 mg DAILY [facility] Administration Colchicine 0.6 mg 11/05/18 10:00 11/06/18 09:06 Colcrys PO 0.6 mg BID [facility] Administration Febuxostat 40 mg 11/05/18 10:00 11/06/18 09:46 Uloric - PO 40 mg DAILY [facility] Administration Furosemide 100 mg 11/06/18 12:00 11/06/18 14:28 Lasix Injection - IVPB Not Given BID@0600,1400 [facility] Insulin Aspart 0 vial 11/04/18 22:00 11/06/18 12:35 Novolog Vial Sliding Scale - SQ 2 units ACHS [facility] Administration Protocol Levothyroxine Sodium 50 mcg 11/05/18 08:05 11/06/18 06:41 Synthroid - PO 50 mcg DAILY@0700 [facility] Administration Metoprolol Succinate 50 mg 11/05/18 10:00 11/06/18 09:06 Toprol Xl - PO 50 mg BID [facility] Administration Non-Formulary Medication 290 mcg 11/05/18 10:00 Linaclotide [Linzess] PO DAILY [facility] Pramipexole Dihydrochloride 0.25 mg 11/05/18 10:00 11/06/18 09:07 Mirapex - PO 0.25 mg DAILY [facility] Administration ASSESSMENT/PLAN: Acute hypoxic respiratory failure COPD Afib on Eliquis Coronary artery disease (s/p CABG) Congestive heart failure Obstructive sleep apnea Restrictive lung disease (history of asbestos exposure) Hypertension Hyperlipidemia Diabetes mellitus (insulin dependent) Hypothyroidism Mild dementia CKD IV Neurologic Dementia -Currently, patient awake, alert, oriented to person. -Monitor for signs of mental status changes Pulmonary Acute hypoxic, hypercarbic respiratory failure COPD JUAN -Currently on BiLevel ventilation- settings changed to 18 rate 18 FiO2 50% -Repeat ABG -Repeat chest radiograph -Maintain oxygen saturation greater than 90% Cardiac -Eliquis 2.5mg PO BID -Aspirin 81mg PO daily -Lasix 100mg IV BID diuresis -Metoprolol 50mg PO BID for rate control -Strict intake, output. Daily weight Gastrointestinal -Patient tolerating sodium controlled diet -Protonix 40mg IV daily Endocrine DM Hypothyroid -Insulin sliding scale ACHS -Synthroid 50mcg PO daily Renal CKD IV -Cr 2.1- appears at baseline -Noted earlier today that patient experiencing difficulty urinating. Bladder scan; catheterize if retention. -Follow Bun/ Cr Musculoskeletal Gout -Febuxostat 40mg PO daily -Colchicine 0.6mg PO BID [facility] -No IV fluids indicated -Follow BMP, replete as necessary -Diabetic, sodium modified diet Disposition: We will continue to follow the patient. Thank you for this consultative opportunity. Visit type - Emergency Visit Emergency Visit: Yes ED Registration Date: 11/04/18 Care time: The patient presented to the Emergency Department on the above date and was hospitalized for further evaluation of their emergent condition. - New Patient This patient is new to me today: Yes Date on this admission: 11/06/18 - Critical Care Critical Care patient: Yes Total Critical Care Time (in minutes): 36 Critical Care Statement: The care of this patient involved high complexity decision making to prevent further life threatening deterioration of the patient 's condition and/or to evaluate & treat vital organ system(s) failure or risk of failure. ATTENDING PHYSICIAN STATEMENT I saw and evaluated the patient. I reviewed the resident's note and discussed the case with the resident. I agree with the resident's findings and plan as documented. SUBJECTIVE: OBJECTIVE: ASSESSMENT AND PLAN:
[2018-11-06 17:30] LABS: ARTERIAL BLD GAS O2 SATURATION 97.5 % (95-98); ARTERIAL BLOOD GAS BASE EXCESS 14.6 meq/l (-2-2); ARTERIAL BLOOD GAS PO2 101 mmHg (80-105); ARTERIAL BLOOD GAS pH 7.33 (7.35-7.45)
[2018-11-06 17:31] LABS: ALLENS TEST POSITIVE
[2018-11-06 18:49] LABS: MAGNESIUM 2.5 mg/dL (1.8-2.4); PHOSPHOROUS 3.7 mg/dL (2.5-4.9)
[2018-11-06 19:01] LABS: ARTERIAL BLD GAS O2 SATURATION 96.5 % (95-98); ARTERIAL BLOOD GAS BASE EXCESS 14.2 meq/l (-2-2); ARTERIAL BLOOD GAS PO2 91.5 mmHg (80-105); ARTERIAL BLOOD GAS pH 7.33 (7.35-7.45)
[2018-11-06 19:03] LABS: ALLENS TEST POSITIVE
[2018-11-06 19:05] LABS: ARTERIAL BLOOD GAS PCO2 84.7 mmHg (35-45)
--- NOTE | 2018-11-06 19:42 | PN ---
Progress Note (short form) - Note Progress Note: Case d/w patient's son, states patient is DNR/DNI - patient's to bring in paperwork later this evening. Will follow son's oral directive.
[2018-11-07] MEDS: FUROSEMIDE 100 MG/10 ML INJECTABLE VIAL IVPB SCH ×2 (05:42→13:28)
[2018-11-07] MEDS: INSULIN SLIDING SCALE (NOVOLOG) 1 VIAL SQ SCH ×4 (06:21→21:29)
[2018-11-07] MEDS: LEVOTHYROXINE NA 50 MCG TABLET (FP) PO SCH (06:24)
[2018-11-07 06:36] LABS: HEMATOCRIT 37.3 % (35.4-49); HEMOGLOBIN 12.3 GM/dL (11.7-16.9); MCHC 32.9 g/dl (32.0-35.9); MEAN CELL VOLUME 91.3 fl (80-96); MEAN PLT VOLUME 8.2 fl (7.5-11.1); PLATELET COUNT 164 K/MM3 (134-434); RBC 4.09 M/mm3 (4.00-5.60); WHITE BLOOD COUNT 6.9 K/mm3 (4.0-10.0)
[2018-11-07 06:45] LABS: ARTERIAL BLD GAS O2 SATURATION 89.1 % (95-98)
[2018-11-07 06:46] LABS: ALLENS TEST POSITIVE
[2018-11-07 06:48] LABS: ARTERIAL BLOOD GAS PCO2 91.3 mmHg (35-45)
[2018-11-07 07:00] LABS: ALBUMIN 3.3 g/dl (3.4-5.0); BILIRUBIN,TOTAL 0.6 mg/dL (0.2-1); BLOOD UREA NITROGEN 58.6 mg/dL (7-18); CALCIUM 9.1 mg/dL (8.5-10.1); CREATININE 1.7 mg/dL (0.55-1.3); MAGNESIUM 2.7 mg/dL (1.8-2.4); PHOSPHOROUS 3.6 mg/dL (2.5-4.9); POTASSIUM 4.1 mmol/L (3.5-5.1); TOT PROT 6.7 g/dl (6.4-8.2)
[2018-11-07] MEDS: PANTOPRAZOLE SODIUM 40 MG VIAL IVPUSH SCH (09:56)
[2018-11-07] MEDS: ASPIRIN 81 MG CHEWABLE TABLETS PO SCH (09:56)
[2018-11-07] MEDS: APIXABAN 2.5 MG TABLET PO SCH ×2 (09:56→21:40)
[2018-11-07] MEDS: COLCHICINE 0.6 MG CAP PO SCH ×2 (09:57→21:53)
[2018-11-07] MEDS: PRAMIPEXOLE DIHYDROCHLORIDE 0.25 MG TABLET PO SCH (09:58)
[2018-11-07] MEDS: FEBUXOSTAT 40 MG TAB PO SCH (09:59)
--- NOTE | 2018-11-07 10:54 | PN ---
Progress Note (short form) - Note Progress Note: transferred to ICU overnight for hypoxic respiratory failures. on bipap with dyspnea. no chest pain, palps, dizziness remote ex cigs Current Medications Apixaban (Eliquis -) 2.5 mg PO BID [facility] Last Admin: 11/07/18 09:56 Dose: 2.5 mg Aspirin (Asa -) 81 mg PO DAILY [facility] Last Admin: 11/07/18 09:56 Dose: 81 mg Colchicine (Colcrys) 0.6 mg PO BID [facility] Last Admin: 11/07/18 09:57 Dose: 0.6 mg Febuxostat (Uloric -) 40 mg PO DAILY [facility] Last Admin: 11/07/18 09:59 Dose: 40 mg Furosemide (Lasix Injection -) 100 mg IVPB BID@0600,1400 [facility] Last Admin: 11/07/18 05:42 Dose: 100 mg Insulin Aspart (Novolog Vial Sliding Scale -) 0 vial SQ ACHS [facility]; Protocol Last Admin: 11/07/18 06:21 Dose: Not Given Levothyroxine Sodium (Synthroid -) 50 mcg PO DAILY@0700 [facility] Last Admin: 11/07/18 06:24 Dose: 50 mcg Metoprolol Succinate (Toprol Xl -) 50 mg PO BID [facility] Last Admin: 11/07/18 09:56 Dose: 50 mg Non-Formulary Medication (Linaclotide [Linzess]) 290 mcg PO DAILY [facility] Pantoprazole Sodium (Protonix Iv) 40 mg IVPUSH DAILY [facility] Last Admin: 11/07/18 09:56 Dose: 40 mg Pramipexole Dihydrochloride (Mirapex -) 0.25 mg PO DAILY [facility] Last Admin: 11/07/18 09:58 Dose: 0.25 mg Vital Signs Period Temp Pulse Resp BP Sys/Junior Pulse Ox Last 24 Hr 97.6 F-98.4 F 79-101 18-229 119-151/68-89 92-98 Constitutional: Yes: No Distress, Calm Eyes: No: Sclera Icterus HENT: No: Nasal Congestion Cardiovascular: Yes: Regular Rate and Rhythm, S1, S2, Other (PMI non diplaced). No: JVD (prohibitively tds exam), Gallop, Murmur Respiratory: Yes: CTA Bilaterally. No: Accessory Muscle Use, Rales, Wheezes Gastrointestinal: Yes: Normal Bowel Sounds, Soft. No: Tenderness Musculoskeletal: Yes: Other (No kyphosis) Extremities: No: Cyanosis Edema: No Integumentary: No: Jaundice Neurological: Yes: Alert, Oriented (x3) Psychiatric: No: Agitated Assessment/Plan Echo 04/2018: EF 45%, mod MR/TR, at least mild , moderate to severe PHTN Nuclear stress 2017: Pharm: small inferolat infarct, mild arlin-infarct ischemia , Overall EF 35-40% CXR: "vs prior, again noted is...congestive changes" ECG: afib, nonsp TWA lateral leads--no change vs prior tele: afib, HR controlled IMP: -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 (home regimen: torsemide 100 bid, spironolactone 25, metopr. no BETTY/ARB due to CKD) -Chronic respiratory failure -Asbestos lung dz/ ILD, on home O2. 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 required lasix 100 iv bid diuresis then. - Cr improving, weight down with lasix 100 mg IV BID, continue -continued NIPPV, suppl O2 per pmd, hospitalist -per Dr. Curiel: given the extremely low risk of cardiomems device (essentially risk of a routine RHC), and the hi risk of permanent worsening of renal fxn with recurrent CHF episodes or with overdiuresis in pt with extremely limited ability to assess volume status on clinical grounds, will strongly rec they continue to discuss this possibility with dr dumont (not an option until he is well diuresed and stable) -tele monitoring
[2018-11-07] MEDS ORDERED: methylPREDNISolone 8 MG TABLET PO ONE (11:46)
[2018-11-07] MEDS: IPRATROPIUM BR 0.02% 0.5 MG/2.5 ML VIAL.NEB. NEB SCH ×3 (12:20→20:30)
--- NOTE | 2018-11-07 12:26 | PN ---
Physical Exam: SUBJECTIVE: Patient seen and examined at the bedside. Unresponsive and uncooperative with exam, extremely difficult to arouse. On BiPAP satting in the low 90s. No acute events overnight. Patient is confirmed DNR/DNI. OBJECTIVE: Vital Signs Period Temp Pulse Resp BP Sys/Junior Pulse Ox Last 24 Hr 97.6 F-98.2 F 79-101 18-229 119-151/33-89 92-98 GENERAL: Somnolent and difficult to arouse, in no acute distress. HEAD: Normocephalic, atraumatic EYES: Pupils equal, round and reactive to light, sclera anicteric, conjunctiva clear. EARS, NOSE, THROAT: Oropharynx clear without exudates. Moist mucous membranes. NECK: Supple without lymphadenopathy, or JVD. Negative stridor. LUNGS: Good inspiratory effort, with poor air entry bilaterally. Diffuse rhonchi auscultated bilaterally. HEART: Irregular rate and rhythm, Normal S1 and S2 without murmur. ABDOMEN: Obese abdomen. Soft, nontender, not distended, normoactive bowel sounds x4 quadrants. No guarding, no rebound tenderness. MUSCULOSKELETAL: Normal range of motion at all joints. No bony deformities or tenderness. EXTREMITIES: 2+ radial, drosalis pedis pulses bilaterally. Warm, well-perfused. NEUROLOGICAL: Cranial nerves II-XII intact. No gross focal deficits. PSYCHIATRIC: Cooperative, confused. SKIN: Warm, dry. Laboratory Results - last 24 hr 11/06/18 11/06/18 11/06/18 07:06 12:32 16:25 WBC RBC Hgb Hct MCV MCH MCHC RDW Plt Count MPV Anticoagulation Therapy No Result Required. Puncture Site Right radial ABG pH 7.33 L ABG pCO2 at Pt Temp 85.0 H* ABG pO2 at Pt Temp 101 ABG HCO3 43.6 H ABG O2 Sat (Measured) 97.5 ABG O2 Content 15.4 ABG Base Excess 14.6 H Esteban Test Positive O2 Delivery Device Bipap Oxygen Flow Rate 50 Vent Mode S/t Vent Rate 18 Mechanical Rate No Pressure Support Vent 18/8 Sodium 142 Potassium 4.0 Chloride 95 L Carbon Dioxide 42 H Anion Gap 5 L BUN 65.0 H Creatinine 2.1 H Est GFR (CKD-EPI)AfAm 31.84 Est GFR (CKD-EPI)NonAf 27.47 POC Glucometer 180 Random Glucose 137 H Calcium 8.9 Phosphorus 3.7 Magnesium 2.5 H Total Bilirubin AST ALT Alkaline Phosphatase Total Protein Albumin 11/06/18 11/06/18 11/06/18 17:16 18:50 22:00 WBC RBC Hgb Hct MCV MCH MCHC RDW Plt Count MPV Anticoagulation Therapy No Result Required. Puncture Site Left radial ABG pH 7.33 L ABG pCO2 at Pt Temp 84.7 H* ABG pO2 at Pt Temp 91.5 ABG HCO3 43.5 H ABG O2 Sat (Measured) 96.5 ABG O2 Content 16.4 ABG Base Excess 14.2 H Esteban Test Positive O2 Delivery Device Bipap Oxygen Flow Rate 50 Vent Mode S/t Vent Rate 18 Mechanical Rate No Result Required. Pressure Support Vent 16/8 Sodium Potassium Chloride Carbon Dioxide Anion Gap BUN Creatinine Est GFR (CKD-EPI)AfAm Est GFR (CKD-EPI)NonAf POC Glucometer 110 70 Random Glucose Calcium Phosphorus Magnesium Total Bilirubin AST ALT Alkaline Phosphatase Total Protein Albumin 11/07/18 11/07/18 11/07/18 06:05 06:05 06:20 WBC 6.9 RBC 4.09 Hgb 12.3 Hct 37.3 MCV 91.3 MCH 30.0 MCHC 32.9 RDW 18.0 H Plt Count 164 MPV 8.2 Anticoagulation Therapy Puncture Site Right radial ABG pH 7.30 L ABG pCO2 at Pt Temp 91.3 H* ABG pO2 at Pt Temp 63.0 L ABG HCO3 44.0 H ABG O2 Sat (Measured) 89.1 L ABG O2 Content 15.2 ABG Base Excess 14.0 H Esteban Test Positive O2 Delivery Device Bipap Oxygen Flow Rate 50% Vent Mode Vent Rate 18 Mechanical Rate Pressure Support Vent 16/8 Sodium 146 H Potassium 4.1 Chloride 98 Carbon Dioxide 45 H Anion Gap 4 L BUN 58.6 H Creatinine 1.7 H Est GFR (CKD-EPI)AfAm 41.11 Est GFR (CKD-EPI)NonAf 35.47 POC Glucometer Random Glucose 77 Calcium 9.1 Phosphorus 3.6 Magnesium 2.7 H Total Bilirubin 0.6 AST 18 ALT 25 Alkaline Phosphatase 80 Total Protein 6.7 Albumin 3.3 L Active Medications Generic Name Dose Route Start Last Admin Trade Name Freq PRN Reason Stop Dose Admin Apixaban 2.5 mg 11/05/18 01:00 11/07/18 09:56 Eliquis - PO 2.5 mg BID JOE Administration Aspirin 81 mg 11/05/18 10:00 11/07/18 09:56 Asa - PO 81 mg DAILY JOE Administration Colchicine 0.6 mg 11/05/18 10:00 11/07/18 09:57 Colcrys PO 0.6 mg BID JOE Administration Febuxostat 40 mg 11/05/18 10:00 11/07/18 09:59 Uloric - PO 40 mg DAILY JOE Administration Furosemide 100 mg 11/06/18 12:00 11/07/18 05:42 Lasix Injection - IVPB 100 mg BID@0600,1400 JOE Administration Insulin Aspart 0 vial 11/04/18 22:00 11/07/18 06:21 Novolog Vial Sliding Scale - SQ Not Given ACHS [facility] Protocol Ipratropium [place] 1 amp 11/07/18 12:00 11/07/18 12:20 Atrovent 0.02% Nebulizer - NEB 1 amp RQID JOE Administration Levothyroxine Sodium 50 mcg 11/05/18 08:05 11/07/18 06:24 Synthroid - PO 50 mcg DAILY@0700 JOE Administration Methylprednisolone 60 mg 11/07/18 11:46 Medrol - PO 11/07/18 11:47 TID ONE Metoprolol Succinate 50 mg 11/05/18 10:00 11/07/18 09:56 Toprol Xl - PO 50 mg BID JOE Administration Non-Formulary Medication 290 mcg 11/05/18 10:00 Linaclotide [Linzess] PO DAILY JOE Pantoprazole Sodium 40 mg 11/07/18 10:00 11/07/18 09:56 Protonix Iv IVPUSH 40 mg DAILY JOE Administration Pramipexole Dihydrochloride 0.25 mg 11/05/18 10:00 11/07/18 09:58 Mirapex - PO 0.25 mg DAILY JOE Administration ASSESSMENT/PLAN: Patient is an 88 year old male with history of Afib (on Eliquis), coronary artery disease (s/p CABG), congestive heart failure, COPD (on home O2), obstructive sleep apnea, restrictive lung disease (history of asbestos exposure) , chronic kidney disease (stage IV), hypertension, hyperlipidemia, insulin dependent diabetes mellitus, mild dementia admitted for hypoxic respiratory distress. Now on BiLevel ventilation with improvement of his work of respiration. Acute hypoxic respiratory failure COPD Afib on Eliquis Coronary artery disease (s/p CABG) Congestive heart failure Obstructive sleep apnea Restrictive lung disease (history of asbestos exposure) Hypertension Hyperlipidemia Diabetes mellitus (insulin dependent) Hypothyroidism Mild dementia CKD IV Neurologic Dementia -Currently, somnolent but arousable. -Monitor for signs of mental status changes Pulmonary Acute hypoxic respiratory failure COPD JUAN -Currently on BiLevel ventilation- settings changed to 18/ 8 rate 18 FiO2 50% -Continue to follow ABGs (this afternoon and tomorrow AM), adjust BiPAP as needed -CXR today looks slightly worse than yesterday, continue diuretics and F/U repeat chest radiograph in AM -Maintain oxygen saturation greater than 90% -F/U with Dr. Downey to see if patient is on CPAP or BiPAP at home -Medrol 60 q8H -Atrovent nebulizer QID, holding albuterol for now as patient is tachycardic Cardiac -Eliquis 2.5mg PO BID -Aspirin 81mg PO daily -Lasix 100mg IV BID diuresis -Metoprolol 50mg PO BID for rate control -Strict intake, output. Daily weight Gastrointestinal -NPO while on BiPAP, otherwise patient has a good swallow and is tolerating a Na controlled diet -Protonix 40mg IV daily Endocrine DM Hypothyroid -Insulin sliding scale ACHS -Synthroid 50mcg PO daily Renal CKD IV -Cr 1.7- appears at baseline -Dyer placed for strict Is/Os. -Follow Bun/ Cr Musculoskeletal Gout -Febuxostat 40mg PO daily -Colchicine 0.6mg PO BID FEN -No IV fluids indicated, actively diuresing -Follow BMP, replete as necessary -NPO while on BiPAP, otherwise Diabetic, sodium modified diet Disposition: We will continue to follow the patient. Thank you for this consultative opportunity. Visit type - Emergency Visit Emergency Visit: Yes ED Registration Date: 11/04/18 Care time: The patient presented to the Emergency Department on the above date and was hospitalized for further evaluation of their emergent condition. - New Patient This patient is new to me today: Yes Date on this admission: 11/07/18 - Critical Care Critical Care patient: Yes Total Critical Care Time (in minutes): 40 Critical Care Statement: The care of this patient involved high complexity decision making to prevent further life threatening deterioration of the patient 's condition and/or to evaluate & treat vital organ system(s) failure or risk of failure. ATTENDING PHYSICIAN STATEMENT I saw and evaluated the patient. I reviewed the resident's note and discussed the case with the resident. I agree with the resident's findings and plan as documented. SUBJECTIVE: OBJECTIVE: ASSESSMENT AND PLAN:
--- NOTE | 2018-11-07 13:14 | PN ---
Progress Note, Physician Chief Complaint: During last night patient condition deteriorated with worsening of the acute respiratory failure and hypercarbia. He was transferred to the ICU and placed on NIV. 03/11 Now remains very lethargic , family at the bedside. History of Present Illness: Cronic hypercarbic respiratory failure. at night bipap 02/11 Persistent 6.7cm left basilar atelectasis/consolidation. CABG ASHD. DM type on Levemir/Januvia. CRI/ckd 4. 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 Previous Thoracentesis in the past-neg for malignancy. JUAN-at nights using CPAP. Chronic A.Fib. Combined CHF. Gout. Gouty arthritis. Previous rectal surgery for abscess, fistula at [facility]. - Current Medication List Current Medications: Active Medications Apixaban (Eliquis -) 2.5 mg PO BID [facility] Last Admin: 11/07/18 09:56 Dose: 2.5 mg Aspirin (Asa -) 81 mg PO DAILY [facility] Last Admin: 11/07/18 09:56 Dose: 81 mg Colchicine (Colcrys) 0.6 mg PO BID [facility] Last Admin: 11/07/18 09:57 Dose: 0.6 mg Febuxostat (Uloric -) 40 mg PO DAILY [facility] Last Admin: 11/07/18 09:59 Dose: 40 mg Furosemide (Lasix Injection -) 100 mg IVPB BID@0600,1400 [facility] Last Admin: 11/07/18 05:42 Dose: 100 mg Insulin Aspart (Novolog Vial Sliding Scale -) 0 vial SQ [facility]; Protocol Last Admin: 11/07/18 06:21 Dose: Not Given Ipratropium [place] (Atrovent 0.02% Nebulizer -) 1 amp NEB RQID [facility] Last Admin: 11/07/18 12:20 Dose: 1 amp Levothyroxine Sodium (Synthroid -) 50 mcg PO DAILY@0700 [facility] Last Admin: 11/07/18 06:24 Dose: 50 mcg Methylprednisolone (Medrol -) 60 mg PO TID ONE Stop: 11/07/18 11:47 Metoprolol Succinate (Toprol Xl -) 50 mg PO BID [facility] Last Admin: 11/07/18 09:56 Dose: 50 mg Non-Formulary Medication (Linaclotide [Linzess]) 290 mcg PO DAILY [facility] Pantoprazole Sodium (Protonix Iv) 40 mg IVPUSH DAILY [facility] Last Admin: 11/07/18 09:56 Dose: 40 mg - Objective Vital Signs: Vital Signs Temperature 97.8 F 11/07/18 06:00 Pulse Rate 101 H 11/07/18 09:33 Respiratory Rate 22 H 11/07/18 09:00 Blood Pressure 150/33 L 11/07/18 08:00 O2 Sat by Pulse Oximetry (%) 93 L 11/07/18 12:20 Constitutional: Yes: Obese, Other (Lethargic) Eyes: Yes: Other (Opens eyes) HENT: Yes: Atraumatic, Normocephalic Neck: Yes: Supple, Trachea Midline Cardiovascular: Yes: Pulse Irregular, S1, S2 Respiratory: Yes: Diminished (B/L), On BiPap Gastrointestinal: Yes: Soft, Abdomen, Obese ...Rectal Exam: Yes: Deferred Genitourinary: No: Bladder Distention, CVA Tenderness - Left, CVA Tenderness - Right Breast(s): Yes: WNL Extremities: No: Amputation, Calf Tenderness, Cyanosis Edema: No Neurological: Yes: Lethargy. No: Alert, Oriented, Seizure Psychiatric: No: Alert, Oriented, Agitated Labs: CBC, BMP 11/07/18 06:05 11/07/18 06:05 INR, PTT INR 1.08 (0.83-1.09) 11/04/18 19:55 Problem List - Problems (1) Acute kidney injury superimposed on CKD Assessment/Plan: Stable BUN/Creat Follow electrolytes Code(s): N17.9 - ACUTE KIDNEY FAILURE, UNSPECIFIED; N18.9 - CHRONIC KIDNEY DISEASE, UNSPECIFIED (2) Acute on chronic respiratory failure with hypoxia and hypercapnia Assessment/Plan: BIPAP, NIV Code(s): J96.21 - ACUTE AND CHRONIC RESPIRATORY FAILURE WITH HYPOXIA; J96.22 - ACUTE AND CHRONIC RESPIRATORY FAILURE WITH HYPERCAPNIA (3) Acute on chronic systolic (congestive) heart failure Assessment/Plan: Lasix IV. Code(s): I50.23 - ACUTE ON CHRONIC SYSTOLIC (CONGESTIVE) HEART FAILURE (4) CKD (chronic kidney disease) Code(s): N18.9 - CHRONIC KIDNEY DISEASE, UNSPECIFIED Qualifiers: Chronic kidney disease stage: stage 3 (moderate) Qualified Code(s): N18.3 - Chronic kidney disease, stage 3 (moderate) (5) Diabetes 1.5, managed as type 2 Assessment/Plan: Follow BGM Noted episodes of low BGM Novolog coverage. Code(s): E13.9 - OTHER SPECIFIED DIABETES MELLITUS WITHOUT COMPLICATIONS (6) DNR (do not resuscitate) discussion Assessment/Plan: DNR/DNI order written after discussion with the family. Prognosis is poor. Code(s): Z71.89 - OTHER SPECIFIED COUNSELING
--- NOTE | 2018-11-07 13:36 | PN ---
Progress Note, Physician History of Present Illness: events noted resp distress and failure now in icu on bipap son in the room anxious and agitated - Current Medication List Current Medications: Active Medications Apixaban (Eliquis -) 2.5 mg PO BID [facility] Last Admin: 11/07/18 09:56 Dose: 2.5 mg Aspirin (Asa -) 81 mg PO DAILY [facility] Last Admin: 11/07/18 09:56 Dose: 81 mg Colchicine (Colcrys) 0.6 mg PO BID [facility] Last Admin: 11/07/18 09:57 Dose: 0.6 mg Febuxostat (Uloric -) 40 mg PO DAILY [facility] Last Admin: 11/07/18 09:59 Dose: 40 mg Furosemide (Lasix Injection -) 100 mg IVPB BID@0600,1400 [facility] Last Admin: 11/07/18 13:28 Dose: 100 mg Insulin Aspart (Novolog Vial Sliding Scale -) 0 vial SQ ACHS [facility]; Protocol Last Admin: 11/07/18 13:28 Dose: Not Given Ipratropium [place] (Atrovent 0.02% Nebulizer -) 1 amp NEB RQID [facility] Last Admin: 11/07/18 12:20 Dose: 1 amp Levothyroxine Sodium (Synthroid -) 50 mcg PO DAILY@0700 [facility] Last Admin: 11/07/18 06:24 Dose: 50 mcg Methylprednisolone (Medrol -) 60 mg PO TID ONE Stop: 11/07/18 11:47 Metoprolol Succinate (Toprol Xl -) 50 mg PO BID [facility] Last Admin: 11/07/18 09:56 Dose: 50 mg Non-Formulary Medication (Linaclotide [Linzess]) 290 mcg PO DAILY [facility] Pantoprazole Sodium (Protonix Iv) 40 mg IVPUSH DAILY [facility] Last Admin: 11/07/18 09:56 Dose: 40 mg - Objective Vital Signs: Vital Signs Temperature 97.8 F 11/07/18 06:00 Pulse Rate 101 H 11/07/18 09:33 Respiratory Rate 22 H 11/07/18 09:00 Blood Pressure 150/33 L 11/07/18 08:00 O2 Sat by Pulse Oximetry (%) 93 L 11/07/18 12:20 Constitutional: Yes: Anxious, Obese, Other (agitated) Cardiovascular: Yes: Tachycardia, S1, S2 Respiratory: Yes: On BiPap Gastrointestinal: Yes: Normal Bowel Sounds, Soft Musculoskeletal: Yes: WNL Extremities: Yes: WNL Neurological: Yes: Alert, Other Labs: CBC, BMP 11/07/18 06:05 11/07/18 06:05 INR, PTT INR 1.08 (0.83-1.09) 11/04/18 19:55 - ....Imaging Chest X-ray: Report Reviewed, Image Reviewed Assessment/Plan Problem List - Problems (1) Atrial fibrillation Code(s): I48.91 - UNSPECIFIED ATRIAL FIBRILLATION Qualifiers: (2) CHF, acute on chronic Code(s): I50.9 - HEART FAILURE, UNSPECIFIED Qualifiers: (3) COPD (chronic obstructive pulmonary disease) Code(s): J44.9 - CHRONIC OBSTRUCTIVE PULMONARY DISEASE, UNSPECIFIED (4) Hypoxemia Code(s): R09.02 - HYPOXEMIA (5) ASHD (arteriosclerotic heart disease) Code(s): I25.10 - ATHSCL HEART DISEASE OF [place] CORONARY ARTERY W/O ANG PCTRS (6) Acute kidney injury superimposed on CKD Code(s): N17.9 - ACUTE KIDNEY FAILURE, UNSPECIFIED; N18.9 - CHRONIC KIDNEY DISEASE, UNSPECIFIED (7) Acute on chronic respiratory failure with hypoxia and hypercapnia Code(s): J96.21 - ACUTE AND CHRONIC RESPIRATORY FAILURE WITH HYPOXIA; J96.22 - ACUTE AND CHRONIC RESPIRATORY FAILURE WITH HYPERCAPNIA (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 - OTHER SPECIFIED PLEURAL CONDITIONS (9) CAD (coronary artery disease) Code(s): I25.10 - ATHSCL HEART DISEASE OF [place] CORONARY ARTERY W/O ANG PCTRS Qualifiers: Coronary Disease-Associated Artery/Lesion type: bypass graft, autologous artery Associated angina: without angina Qualified Code(s): I25.810 - Atherosclerosis of coronary artery bypass graft(s) without angina pectoris (10) DM type 2 (diabetes mellitus, type 2) Code(s): E11.9 - TYPE 2 DIABETES MELLITUS WITHOUT COMPLICATIONS Qualifiers: Diabetes mellitus terminal supervisor insulin use: with terminal supervisor use Chronic kidney disease stage: stage 4 (severe) (11) HTN (hypertension) Code(s): I10 - ESSENTIAL (PRIMARY) HYPERTENSION (12) S/P CABG (coronary artery bypass graft) Code(s): Z95.1 - PRESENCE OF AORTOCORONARY BYPASS GRAFT Assessment/Plan 88 y.o. 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
[2018-11-07 13:47] LABS: ARTERIAL BLD GAS O2 SATURATION 94.5 % (95-98); ARTERIAL BLOOD GAS PO2 77.5 mmHg (80-100); ARTERIAL BLOOD GAS pH 7.34 (7.35-7.45)
[2018-11-07 13:48] LABS: ALLENS TEST POSITIVE
[2018-11-07 13:51] LABS: ARTERIAL BLOOD GAS PCO2 85.2 mmHg (35-45)
--- NOTE | 2018-11-07 14:44 | PN ---
Teaching Attending Note Name of Resident: Mishel Nolen ATTENDING PHYSICIAN STATEMENT I saw and evaluated the patient. I reviewed the resident's note and discussed the case with the resident. I agree with the resident's findings and plan as documented. SUBJECTIVE: Pt seen and examined in the ICU. Transferred down for worsening hypoxia/ hypercapnea. Lethargic on BiPAP, settings adjusted. OBJECTIVE: Vital Signs Period Temp Pulse Resp BP Sys/Junior Pulse Ox Last 24 Hr 97.6 F-98.2 F 79-101 18-229 119-151/33-89 92-98 Intake & Output 11/04/18 11/05/18 11/06/18 11/07/18 23:59 23:59 23:59 23:59 Intake Total 310 800 100 Output Total 1620 Balance 310 -820 100 Weight 104.326 kg 109.316 kg 109.044 kg 108.862 kg Gen: lethargic on BiPAP Heart: irregular Lung: distant breath sounds Abd: soft, nontender Ext: no edema CBC, BMP 11/07/18 06:05 11/07/18 06:05 Active Medications Apixaban (Eliquis -) 2.5 mg PO BID [facility] Last Admin: 11/07/18 09:56 Dose: 2.5 mg Aspirin (Asa -) 81 mg PO DAILY [facility] Last Admin: 11/07/18 09:56 Dose: 81 mg Colchicine (Colcrys) 0.6 mg PO BID [facility] Last Admin: 11/07/18 09:57 Dose: 0.6 mg Febuxostat (Uloric -) 40 mg PO DAILY [facility] Last Admin: 11/07/18 09:59 Dose: 40 mg Furosemide (Lasix Injection -) 100 mg IVPB BID@0600,1400 [facility] Last Admin: 11/07/18 13:28 Dose: 100 mg Insulin Aspart (Novolog Vial Sliding Scale -) 0 vial SQ ACHS [facility]; Protocol Last Admin: 11/07/18 13:28 Dose: Not Given Ipratropium [place] (Atrovent 0.02% Nebulizer -) 1 amp NEB RQID [facility] Last Admin: 11/07/18 12:20 Dose: 1 amp Levothyroxine Sodium (Synthroid -) 50 mcg PO DAILY@0700 [facility] Last Admin: 11/07/18 06:24 Dose: 50 mcg Methylprednisolone Sodium Succinate (Solu-Medrol -) 60 mg IVPUSH Q8H [facility] Metoprolol Succinate (Toprol Xl -) 50 mg PO BID [facility] Last Admin: 11/07/18 09:56 Dose: 50 mg Non-Formulary Medication (Linaclotide [Linzess]) 290 mcg PO DAILY [facility] Pantoprazole Sodium (Protonix Iv) 40 mg IVPUSH DAILY [facility] Last Admin: 11/07/18 09:56 Dose: 40 mg ASSESSMENT AND PLAN: Acute on Chronic Hypoxic and Hypercapneic Respiratory Failure Acute on Chronic Systolic Heart Failure r/o Acute COPD Exacerbation Interstitial Lung Disease Pulmonary HTN Atrial Fibrillation CAD s/p CABG Acute on Chronic Renal Failure JUAN - continue lasix - monitor urine output, creatinine - empiric medrol - inhaled bronchodilators - rate control - continue anticoagulation - adjusted BiPAP settings - monitor ABG - O2 to keep SpO2 88-92% - continue ICU monitoring critical care time spent in reviewing chart, evaluating patient and formulating plan 35 min
[2018-11-07] MEDS: methylPREDNISolone NA SUCC 40 MG/1 ML VIAL IVPUSH SCH ×2 (14:49→21:40)
[2018-11-07] MEDS ORDERED: PT OWN MED DRAWER 7, Y5N ONE ×2 (21:32→21:46)
[2018-11-08 06:40] LABS: ALLENS TEST POSITIVE
[2018-11-08 06:48] LABS: ARTERIAL BLD GAS O2 SATURATION 93.8 % (95-98); ARTERIAL BLOOD GAS BASE EXCESS 9.8 meq/l (-2-2); ARTERIAL BLOOD GAS PCO2 50.8 mmHg (35-45); ARTERIAL BLOOD GAS PO2 69.8 mmHg (80-100); ARTERIAL BLOOD GAS pH 7.46 (7.35-7.45)
[2018-11-08] MEDS: methylPREDNISolone NA SUCC 40 MG/1 ML VIAL IVPUSH SCH ×2 (06:50→10:03)
[2018-11-08] MEDS: LEVOTHYROXINE NA 50 MCG TABLET (FP) PO SCH (06:53)
[2018-11-08] MEDS: FUROSEMIDE 100 MG/10 ML INJECTABLE VIAL IVPB SCH ×2 (07:34→13:58)
[2018-11-08] MEDS: INSULIN SLIDING SCALE (NOVOLOG) 1 VIAL SQ SCH ×4 (07:35→22:16)
[2018-11-08 07:49] LABS: HEMOGLOBIN 12.4 GM/dL (11.7-16.9); MCH 29.9 pg (25.7-33.7); MCHC 32.5 g/dl (32.0-35.9); MEAN PLT VOLUME 8.8 fl (7.5-11.1); PLATELET COUNT 168 K/MM3 (134-434); RBC 4.13 M/mm3 (4.00-5.60); RDW 18.3 % (11.9-15.9); WHITE BLOOD COUNT 4.8 K/mm3 (4.0-10.0)
[2018-11-08 08:12] LABS: BILIRUBIN,TOTAL 0.8 mg/dL (0.2-1); BLOOD UREA NITROGEN 70.9 mg/dL (7-18); CALCIUM 8.7 mg/dL (8.5-10.1); CREATININE 2.1 mg/dL (0.55-1.3); MAGNESIUM 2.4 mg/dL (1.8-2.4); PHOSPHOROUS 3.8 mg/dL (2.5-4.9); POTASSIUM 4.2 mmol/L (3.5-5.1); TOT PROT 6.3 g/dl (6.4-8.2)
--- NOTE | 2018-11-08 08:33 | PN ---
Progress Note, Physician Chief Complaint: Over night patient condition improved, today awake, alert, verbal. History of Present Illness: Cronic hypercarbic respiratory failure. at night bipap 15/8 Persistent 6.7cm left basilar atelectasis/consolidation. CABG ASHD. DM type on Levemir/Januvia. CRI/ckd 4. 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 Previous Thoracentesis in the past-neg for malignancy. JUAN-at nights using CPAP. Chronic A.Fib. Combined CHF. Gout. Gouty arthritis. Previous rectal surgery for abscess, fistula at [facility]. - Current Medication List Current Medications: Active Medications Apixaban (Eliquis -) 2.5 mg PO BID [facility] Last Admin: 11/07/18 21:40 Dose: 2.5 mg Aspirin (Asa -) 81 mg PO DAILY [facility] Last Admin: 11/07/18 09:56 Dose: 81 mg Colchicine (Colcrys) 0.6 mg PO BID [facility] Last Admin: 11/07/18 21:53 Dose: 0.6 mg Febuxostat (Uloric -) 40 mg PO DAILY [facility] Last Admin: 11/07/18 09:59 Dose: 40 mg Furosemide (Lasix Injection -) 100 mg IVPB BID@0600,1400 [facility] Last Admin: 11/08/18 07:34 Dose: 100 mg Insulin Aspart (Novolog Vial Sliding Scale -) 0 vial SQ ACHS [facility]; Protocol Last Admin: 11/08/18 07:35 Dose: 2 units Ipratropium [place] (Atrovent 0.02% Nebulizer -) 1 amp NEB RQID [facility] Last Admin: 11/07/18 20:30 Dose: 1 amp Levothyroxine Sodium (Synthroid -) 50 mcg PO DAILY@0700 [facility] Last Admin: 11/08/18 06:53 Dose: 50 mcg Methylprednisolone Sodium Succinate (Solu-Medrol -) 60 mg IVPUSH Q8H [facility] Last Admin: 11/08/18 06:50 Dose: 60 mg Metoprolol Succinate (Toprol Xl -) 50 mg PO BID [facility] Last Admin: 11/07/18 21:40 Dose: 50 mg Non-Formulary Medication (Linaclotide [Linzess]) 290 mcg PO DAILY [facility] Pantoprazole Sodium (Protonix Iv) 40 mg IVPUSH DAILY [facility] Last Admin: 11/07/18 09:56 Dose: 40 mg - Objective Vital Signs: Vital Signs Temperature 97.8 F 11/08/18 06:00 Pulse Rate 81 11/08/18 06:00 Respiratory Rate 18 11/08/18 06:00 Blood Pressure 131/92 11/08/18 06:00 O2 Sat by Pulse Oximetry (%) 95 11/08/18 05:28 Constitutional: Yes: Anxious, Moderate Distress Eyes: Yes: Conjunctiva Clear, EOM Intact HENT: Yes: Atraumatic, Normocephalic Neck: Yes: Supple, Trachea Midline. No: Lymphadenopathy, Tenderness Cardiovascular: Yes: Pulse Irregular, S1, S2. No: JVD Respiratory: Yes: Diminished (B/L) Gastrointestinal: Yes: Soft, Abdomen, Obese ...Rectal Exam: Yes: Deferred Genitourinary: No: Anuria, Bladder Distention, CVA Tenderness - Left, CVA Tenderness - Right Breast(s): Yes: WNL Musculoskeletal: Yes: WNL Extremities: Yes: Other (SCD) Edema: LLE: 1+, RLE: 1+ Integumentary: Yes: WNL Neurological: Yes: Alert, Oriented. No: Aphasia, Asterixis, Dysarthria ...Motor Strength: WNL Psychiatric: Yes: WNL Labs: CBC, BMP 11/08/18 05:50 11/08/18 05:50 INR, PTT INR 1.08 (0.83-1.09) 11/04/18 19:55 Problem List - Problems (1) Acute kidney injury superimposed on CKD Assessment/Plan: Noted BUN/Creat Follow electrolytes Code(s): N17.9 - ACUTE KIDNEY FAILURE, UNSPECIFIED; N18.9 - CHRONIC KIDNEY DISEASE, UNSPECIFIED (2) Acute on chronic respiratory failure with hypoxia and hypercapnia Assessment/Plan: BIPAP, NIV Taper PREDNISONE to 60 mg daily Code(s): J96.21 - ACUTE AND CHRONIC RESPIRATORY FAILURE WITH HYPOXIA; J96.22 - ACUTE AND CHRONIC RESPIRATORY FAILURE WITH HYPERCAPNIA (3) Acute on chronic systolic (congestive) heart failure Assessment/Plan: Lasix IV. Code(s): I50.23 - ACUTE ON CHRONIC SYSTOLIC (CONGESTIVE) HEART FAILURE (4) CKD (chronic kidney disease) Assessment/Plan: Follow BUN/Creat Code(s): N18.9 - CHRONIC KIDNEY DISEASE, UNSPECIFIED Qualifiers: Chronic kidney disease stage: stage 3 (moderate) Qualified Code(s): N18.3 - Chronic kidney disease, stage 3 (moderate) (5) Diabetes 1.5, managed as type 2 Assessment/Plan: Follow BGM Noted episodes of low BGM Novolog coverage. Code(s): E13.9 - OTHER SPECIFIED DIABETES MELLITUS WITHOUT COMPLICATIONS (6) DNR (do not resuscitate) discussion Assessment/Plan: DNR/DNI order written after discussion with the family. . Code(s): Z71.89 - OTHER SPECIFIED COUNSELING
[2018-11-08] MEDS ORDERED: BISACODYL 10 MG SUPP.RECT PR PRN (08:37)
[2018-11-08] MEDS: IPRATROPIUM BR 0.02% 0.5 MG/2.5 ML VIAL.NEB. NEB SCH ×4 (08:40→20:30)
[2018-11-08] MEDS ORDERED: methylPREDNISolone NA SUCC 40 MG/1 ML VIAL IVPUSH SCH (08:45)
[2018-11-08] MEDS: APIXABAN 2.5 MG TABLET PO SCH ×2 (10:03→22:11)
[2018-11-08] MEDS: PANTOPRAZOLE SODIUM 40 MG VIAL IVPUSH SCH (10:03)
[2018-11-08] MEDS: ASPIRIN 81 MG CHEWABLE TABLETS PO SCH (10:03)
[2018-11-08] MEDS: FEBUXOSTAT 40 MG TAB PO SCH (10:04)
[2018-11-08] MEDS: COLCHICINE 0.6 MG CAP PO SCH ×2 (10:04→22:10)
[2018-11-08] MEDS: POLYETHYLENE GLYCOL 3350 119 GM BTL PO SCH ×2 (10:12→22:10)
--- NOTE | 2018-11-08 10:58 | PN ---
Progress Note, Physician History of Present Illness: more comfortable today on nasal canula bit drowsy - Current Medication List Current Medications: Active Medications Apixaban (Eliquis -) 2.5 mg PO BID [facility] Last Admin: 11/08/18 10:03 Dose: 2.5 mg Aspirin (Asa -) 81 mg PO DAILY [facility] Last Admin: 11/08/18 10:03 Dose: 81 mg Bisacodyl (Dulcolax Suppository -) 10 mg MD DAILY PRN PRN Reason: CONSTIPATION Colchicine (Colcrys) 0.6 mg PO BID [facility] Last Admin: 11/08/18 10:04 Dose: 0.6 mg Febuxostat (Uloric -) 40 mg PO DAILY [facility] Last Admin: 11/08/18 10:04 Dose: 40 mg Furosemide (Lasix Injection -) 100 mg IVPB BID@0600,1400 [facility] Last Admin: 11/08/18 07:34 Dose: 100 mg Insulin Aspart (Novolog Vial Sliding Scale -) 0 vial SQ ACHS [facility], [facility]; Protocol Last Admin: 11/08/18 07:35 Dose: 2 units Ipratropium [place] (Atrovent 0.02% Nebulizer -) 1 amp NEB RQID [facility]1983 Last Admin: 11/07/18 20:30 Dose: 1 amp Levothyroxine Sodium (Synthroid -) 50 mcg PO DAILY@0700 [facility] Last Admin: 11/08/18 06:53 Dose: 50 mcg Methylprednisolone Sodium Succinate (Solu-Medrol -) 60 mg IVPUSH DAILY [facility] Last Admin: 11/08/18 10:03 Dose: 60 mg Metoprolol Succinate (Toprol Xl -) 50 mg PO BID [facility] Last Admin: 11/08/18 10:03 Dose: 50 mg Non-Formulary Medication (Linaclotide [Linzess]) 290 mcg PO DAILY [facility] Pantoprazole Sodium (Protonix Iv) 40 mg IVPUSH DAILY [facility] Last Admin: 11/08/18 10:03 Dose: 40 mg Polyethylene Glycol (Miralax (For Daily Use) -) 17 gm PO BID [facility] Last Admin: 11/08/18 10:12 Dose: 17 gm - Objective Vital Signs: Vital Signs Temperature 97.8 F 11/08/18 06:00 Pulse Rate 81 11/08/18 06:00 Respiratory Rate 18 11/08/18 06:00 Blood Pressure 131/92 11/08/18 06:00 O2 Sat by Pulse Oximetry (%) 95 11/08/18 05:28 Constitutional: Yes: No Distress, Calm, Obese Cardiovascular: Yes: S1, S2 Respiratory: Yes: Regular, On Nasal O2, Poor Air Entry Gastrointestinal: Yes: Normal Bowel Sounds, Soft Musculoskeletal: Yes: WNL Extremities: Yes: WNL Neurological: Yes: Alert, Other Labs: CBC, BMP 11/08/18 05:50 11/08/18 05:50 INR, PTT INR 1.08 (0.83-1.09) 11/04/18 19:55 Assessment/Plan Problem List - Problems (1) Atrial fibrillation Code(s): I48.91 - UNSPECIFIED ATRIAL FIBRILLATION Qualifiers: (2) CHF, acute on chronic Code(s): I50.9 - HEART FAILURE, UNSPECIFIED Qualifiers: (3) COPD (chronic obstructive pulmonary disease) Code(s): J44.9 - CHRONIC OBSTRUCTIVE PULMONARY DISEASE, UNSPECIFIED (4) Hypoxemia Code(s): R09.02 - HYPOXEMIA (5) ASHD (arteriosclerotic heart disease) Code(s): I25.10 - ATHSCL HEART DISEASE OF [place] CORONARY ARTERY W/O ANG PCTRS (6) Acute kidney injury superimposed on CKD Code(s): N17.9 - ACUTE KIDNEY FAILURE, UNSPECIFIED; N18.9 - CHRONIC KIDNEY DISEASE, UNSPECIFIED (7) Acute on chronic respiratory failure with hypoxia and hypercapnia Code(s): J96.21 - ACUTE AND CHRONIC RESPIRATORY FAILURE WITH HYPOXIA; J96.22 - ACUTE AND CHRONIC RESPIRATORY FAILURE WITH HYPERCAPNIA (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 - OTHER SPECIFIED PLEURAL CONDITIONS (9) CAD (coronary artery disease) Code(s): I25.10 - ATHSCL HEART DISEASE OF [place] CORONARY ARTERY W/O ANG PCTRS Qualifiers: Coronary Disease-Associated Artery/Lesion type: bypass graft, autologous artery Associated angina: without angina Qualified Code(s): I25.810 - Atherosclerosis of coronary artery bypass graft(s) without angina pectoris (10) DM type 2 (diabetes mellitus, type 2) Code(s): E11.9 - TYPE 2 DIABETES MELLITUS WITHOUT COMPLICATIONS Qualifiers: Diabetes mellitus terminal worker insulin use: with usp use Chronic kidney disease stage: stage 4 (severe) (11) HTN (hypertension) Code(s): I10 - ESSENTIAL (PRIMARY) HYPERTENSION (12) S/P CABG (coronary artery bypass graft) Code(s): Z95.1 - PRESENCE OF AORTOCORONARY BYPASS GRAFT Assessment/Plan 88 y.o. 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
--- NOTE | 2018-11-08 11:32 | PN ---
Progress Note (short form) - Note Progress Note: no chest pain, palps, dizziness. dyspnea improving. Current Medications Acetaminophen (Tylenol -) 650 mg PO Q6H PRN PRN Reason: HEADACHE Apixaban (Eliquis -) 2.5 mg PO BID [facility] Last Admin: 11/08/18 10:03 Dose: 2.5 mg Aspirin (Asa -) 81 mg PO DAILY [facility] Last Admin: 11/08/18 10:03 Dose: 81 mg Bisacodyl (Dulcolax Suppository -) 10 mg [place] DAILY PRN PRN Reason: CONSTIPATION Colchicine (Colcrys) 0.6 mg PO BID [facility] Last Admin: 11/08/18 10:04 Dose: 0.6 mg Febuxostat (Uloric -) 40 mg PO DAILY [facility] Last Admin: 11/08/18 10:04 Dose: 40 mg Furosemide (Lasix Injection -) 100 mg IVPB BID@0600,1400 [facility] Last Admin: 11/08/18 07:34 Dose: 100 mg Insulin Aspart (Novolog Vial Sliding Scale -) 0 vial SQ [facility]; Protocol Last Admin: 11/08/18 07:35 Dose: 2 units Ipratropium [place] (Atrovent 0.02% Nebulizer -) 1 amp NEB RQID [facility] Last Admin: 11/07/18 20:30 Dose: 1 amp Levothyroxine Sodium (Synthroid -) 50 mcg PO DAILY@0700 [facility] Last Admin: 11/08/18 06:53 Dose: 50 mcg Methylprednisolone Sodium Succinate (Solu-Medrol -) 60 mg IVPUSH DAILY [facility] Last Admin: 11/08/18 10:03 Dose: 60 mg Metoprolol Succinate (Toprol Xl -) 50 mg PO BID [facility] Last Admin: 11/08/18 10:03 Dose: 50 mg Non-Formulary Medication (Linaclotide [Linzess]) 290 mcg PO DAILY [facility] Pantoprazole Sodium (Protonix Iv) 40 mg IVPUSH DAILY [facility] Last Admin: 11/08/18 10:03 Dose: 40 mg Polyethylene Glycol (Miralax (For Daily Use) -) 17 gm PO BID [facility] Last Admin: 11/08/18 10:12 Dose: 17 gm Vital Signs Period Temp Pulse Resp BP Sys/Junior Pulse Ox Last 24 Hr 97.2 F-98.1 F 79-90 18-29 118-150/73-98 93-96 Constitutional: Yes: No Distress, Calm Eyes: No: Sclera Icterus HENT: No: Nasal Congestion Cardiovascular: Yes: Regular Rate and Rhythm, S1, S2, Other (PMI non diplaced). No: JVD (prohibitively tds exam), Gallop, Murmur Respiratory: Yes: CTA Bilaterally. No: Accessory Muscle Use, Rales, Wheezes Gastrointestinal: Yes: Normal Bowel Sounds, Soft. No: Tenderness Musculoskeletal: Yes: Other (No kyphosis) Extremities: No: Cyanosis Edema: No Integumentary: No: Jaundice Neurological: Yes: Alert, Oriented (x3) Psychiatric: No: Agitated Assessment/Plan Echo 04/2018: EF 45%, mod MR/TR, at least mild , moderate to severe PHTN Nuclear stress 2017: Pharm: small inferolat infarct, mild arlin-infarct ischemia , Overall EF 35-40% CXR: "vs prior, again noted is...congestive changes" ECG: afib, nonsp TWA lateral leads--no change vs prior tele: afib, HR controlled IMP: -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 (home regimen: torsemide 100 bid, spironolactone 25, metopr. no BETTY/ARB due to CKD) -Chronic respiratory failure -Asbestos lung dz/ ILD, on home O2. 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 required lasix 100 iv bid diuresis then. - sob improving, weight down with lasix 100 mg IV BID, continue -continued NIPPV, suppl O2 per pmd, hospitalist -per Dr. Curiel: given the extremely low risk of cardiomems device (essentially risk of a routine RHC), and the hi risk of permanent worsening of renal fxn with recurrent CHF episodes or with overdiuresis in pt with extremely limited ability to assess volume status on clinical grounds, will strongly rec they continue to discuss this possibility with dr dumont (not an option until he is well diuresed and stable) -tele monitoring
--- NOTE | 2018-11-08 12:35 | PN ---
Teaching Attending Note Name of Resident: Mishel Nolen ATTENDING PHYSICIAN STATEMENT I saw and evaluated the patient. I reviewed the resident's note and discussed the case with the resident. I agree with the resident's findings and plan as documented. SUBJECTIVE: Pt seen and examined in the ICU. Remains on BiPAP. Mental status much improved. ABG also improving. Transitioned to nasal cannula during rounds. OBJECTIVE: Vital Signs Period Temp Pulse Resp BP Sys/Junior Pulse Ox Last 24 Hr 97.2 F-98.1 F 79-90 18-22 118-140/73-92 95-96 Intake & Output 11/05/18 11/06/18 11/07/18 11/08/18 23:59 23:59 23:59 23:59 Intake Total 310 365 902 2193 Output Total 1620 Balance 310 -497 215 2103 Weight 109.316 kg 109.044 kg 108.862 kg 107.637 kg Gen: less tachypneic, more alert Heart: RRR Lung: scattered rhonchi Abd: soft, nontender Ext: no edema CBC, BMP 11/08/18 05:50 11/08/18 05:50 Active Medications Acetaminophen (Tylenol -) 650 mg PO Q6H PRN PRN Reason: HEADACHE Apixaban (Eliquis -) 2.5 mg PO BID [facility] Last Admin: 11/08/18 10:03 Dose: 2.5 mg Aspirin (Asa -) 81 mg PO DAILY [facility] Last Admin: 11/08/18 10:03 Dose: 81 mg Bisacodyl (Dulcolax Suppository -) 10 mg [place] DAILY PRN PRN Reason: CONSTIPATION Colchicine (Colcrys) 0.6 mg PO BID [facility] Last Admin: 11/08/18 10:04 Dose: 0.6 mg Febuxostat (Uloric -) 40 mg PO DAILY [facility] Last Admin: 11/08/18 10:04 Dose: 40 mg Furosemide (Lasix Injection -) 100 mg IVPB BID@0600,1400 [facility] Last Admin: 11/08/18 07:34 Dose: 100 mg Insulin Aspart (Novolog Vial Sliding Scale -) 0 vial SQ ACHS [facility]; Protocol Last Admin: 11/08/18 11:44 Dose: 6 units Ipratropium [place] (Atrovent 0.02% Nebulizer -) 1 amp NEB RQID [facility] Last Admin: 11/07/18 20:30 Dose: 1 amp Levothyroxine Sodium (Synthroid -) 50 mcg PO DAILY@0700 [facility] Last Admin: 11/08/18 06:53 Dose: 50 mcg Methylprednisolone Sodium Succinate (Solu-Medrol -) 60 mg IVPUSH DAILY [facility] Last Admin: 11/08/18 10:03 Dose: 60 mg Metoprolol Succinate (Toprol Xl -) 50 mg PO BID [facility] Last Admin: 11/08/18 10:03 Dose: 50 mg Non-Formulary Medication (Linaclotide [Linzess]) 290 mcg PO DAILY [facility] Pantoprazole Sodium (Protonix Iv) 40 mg IVPUSH DAILY [facility] Last Admin: 11/08/18 10:03 Dose: 40 mg Polyethylene Glycol (Miralax (For Daily Use) -) 17 gm PO BID [facility] Last Admin: 11/08/18 10:12 Dose: 17 gm ASSESSMENT AND PLAN: Acute on Chronic Hypoxic and Hypercapneic Respiratory Failure Acute on Chronic Systolic Heart Failure r/o Acute COPD Exacerbation Interstitial Lung Disease Pulmonary HTN Atrial Fibrillation CAD s/p CABG Acute on Chronic Renal Failure JUAN - continue lasix - monitor urine output, creatinine - continue empiric medrol - inhaled bronchodilators - rate control - continue anticoagulation - BiPAP as needed - monitor ABG if mental status changes - O2 to keep SpO2 88-92% - can monitor on telemetry with pulse oximetry monitoring critical care time spent in reviewing chart, evaluating patient and formulating plan 35 min
[2018-11-08] MEDS: ACETAMINOPHEN 325 MG TABLET (FP) PO PRN (12:45)
--- NOTE | 2018-11-08 14:01 | PN ---
Physical Exam: SUBJECTIVE: Patient seen and examined at the bedside, no acute events overnight. Overnight the patient became much more alert and interactive. He is tolerating his BiPAP well. OBJECTIVE: Vital Signs Period Temp Pulse Resp BP Sys/Junior Pulse Ox Last 24 Hr 97.2 F-97.8 F 79-90 18-20 118-140/73-92 95-96 GENERAL: Awake, alert and oriented to person, location, time and self. In no acute distress. HEAD: Normocephalic, atraumatic EYES: Pupils equal, round and reactive to light, sclera anicteric, conjunctiva clear. EARS, NOSE, THROAT: Oropharynx clear without exudates. Moist mucous membranes. NECK: Supple without lymphadenopathy, or JVD. Negative stridor. LUNGS: Good inspiratory effort, with poor air entry bilaterally. Diffuse rhonchi auscultated bilaterally. HEART: Irregular rate and rhythm, Normal S1 and S2 without murmur. ABDOMEN: Obese abdomen. Soft, nontender, not distended, normoactive bowel sounds x4 quadrants. No guarding, no rebound tenderness. MUSCULOSKELETAL: Normal range of motion at all joints. No bony deformities or tenderness. EXTREMITIES: 2+ radial, drosalis pedis pulses bilaterally. Warm, well-perfused. NEUROLOGICAL: Cranial nerves II-XII intact. No gross focal deficits. PSYCHIATRIC: Cooperative, normal mood and affect. SKIN: Warm, dry. Laboratory Results - last 24 hr 11/07/18 11/07/18 11/08/18 18:37 21:28 05:50 WBC RBC Hgb Hct MCV MCH MCHC RDW Plt Count MPV Anticoagulation Therapy Puncture Site ABG pH ABG pCO2 at Pt Temp ABG pO2 at Pt Temp ABG HCO3 ABG O2 Sat (Measured) ABG O2 Content ABG Base Excess Esteban Test O2 Delivery Device Oxygen Flow Rate Vent Mode Vent Rate Mechanical Rate Pressure Support Vent Sodium 144 Potassium 4.2 Chloride 94 L Carbon Dioxide 40 H Anion Gap 11 BUN 70.9 H Creatinine 2.1 H Est GFR (CKD-EPI)AfAm 31.84 Est GFR (CKD-EPI)NonAf 27.47 POC Glucometer 106 125 Random Glucose 172 H Calcium 8.7 Phosphorus 3.8 Magnesium 2.4 Total Bilirubin 0.8 AST 18 ALT 21 Alkaline Phosphatase 76 Total Protein 6.3 L Albumin 3.0 L 11/08/18 11/08/1819 05:50 06:30 07:08 WBC 4.8 RBC 4.13 Hgb 12.4 Hct 38.0 MCV 92.0 MCH 29.9 MCHC 32.5 RDW 18.3 H Plt Count 168 MPV 8.8 Anticoagulation Therapy No Result Required. Puncture Site Right radial ABG pH 7.46 H ABG pCO2 at Pt Temp 50.8 H ABG pO2 at Pt Temp 69.8 L ABG HCO3 35.4 H ABG O2 Sat (Measured) 93.8 L ABG O2 Content 20.2 ABG Base Excess 9.8 H Esteban Test Positive O2 Delivery Device Bipap Oxygen Flow Rate 45% Vent Mode S/t Vent Rate 18 Mechanical Rate Bipap Pressure Support Vent 18/6 Sodium Potassium Chloride Carbon Dioxide Anion Gap BUN Creatinine Est GFR (CKD-EPI)AfAm Est GFR (CKD-EPI)NonAf POC Glucometer 177 Random Glucose Calcium Phosphorus Magnesium Total Bilirubin AST ALT Alkaline Phosphatase Total Protein Albumin 11/08/18 11:40 WBC RBC Hgb Hct MCV MCH MCHC RDW Plt Count MPV Anticoagulation Therapy Puncture Site ABG pH ABG pCO2 at Pt Temp ABG pO2 at Pt Temp ABG HCO3 ABG O2 Sat (Measured) ABG O2 Content ABG Base Excess Esteban Test O2 Delivery Device Oxygen Flow Rate Vent Mode Vent Rate Mechanical Rate Pressure Support Vent Sodium Potassium Chloride Carbon Dioxide Anion Gap BUN Creatinine Est GFR (CKD-EPI)AfAm Est GFR (CKD-EPI)NonAf POC Glucometer 297 Random Glucose Calcium Phosphorus Magnesium Total Bilirubin AST ALT Alkaline Phosphatase Total Protein Albumin Active Medications Generic Name Dose Route Start Last Admin Trade Name Freq PRN Reason Stop Dose Admin Acetaminophen 650 mg 11/08/18 11:28 11/08/18 12:45 Tylenol - PO 650 mg Q6H PRN Administration HEADACHE Apixaban 2.5 mg 11/05/18 01:00 11/08/18 10:03 Eliquis - PO 2.5 mg BID JOE Administration Aspirin 81 mg 11/05/18 10:00 11/08/18 10:03 Asa - PO 81 mg DAILY JOE Administration Bisacodyl 10 mg 11/08/18 08:37 Dulcolax Suppository - CT DAILY PRN CONSTIPATION Colchicine 0.6 mg 11/05/18 10:00 11/08/18 10:04 Colcrys PO 0.6 mg BID JOE Administration Febuxostat 40 mg 11/05/18 10:00 11/08/18 10:04 Uloric - PO 40 mg DAILY JOE Administration Furosemide 100 mg 11/06/18 12:00 11/08/18 13:58 Lasix Injection - IVPB 100 mg BID@0600,1400 JOE Administration Insulin Aspart 0 vial 11/04/18 22:00 11/08/18 11:44 Novolog Vial Sliding Scale - SQ 6 units ACHS JOE Administration Protocol Ipratropium [place] 1 amp 11/07/18 12:00 11/08/18 12:00 Atrovent 0.02% Nebulizer - NEB 1 amp RQID JOE Administration Levothyroxine Sodium 50 mcg 11/05/18 08:05 11/08/18 06:53 Synthroid - PO 50 mcg DAILY@0700 JOE Administration Methylprednisolone Sodium Succinate 60 mg 11/08/18 10:00 11/08/18 10:03 Solu-Medrol - IVPUSH 60 mg DAILY JOE Administration Metoprolol Succinate 50 mg 11/05/18 10:00 11/08/18 10:03 Toprol Xl - PO 50 mg BID JOE Administration Non-Formulary Medication 290 mcg 11/05/18 10:00 Linaclotide [Linzess] PO DAILY [facility] Pantoprazole Sodium 40 mg 11/07/18 10:00 11/08/18 10:03 Protonix Iv IVPUSH 40 mg DAILY [facility]E Administration Polyethylene Glycol 17 gm 11/08/18 10:00 11/08/18 10:12 Miralax (For Daily Use) - PO 17 gm BID JOE Administration ASSESSMENT/PLAN: Patient is an 88 year old male with history of Afib (on Eliquis), coronary artery disease (s/p CABG), congestive heart failure, COPD (on home O2), obstructive sleep apnea, restrictive lung disease (history of asbestos exposure) , chronic kidney disease (stage IV), hypertension, hyperlipidemia, insulin dependent diabetes mellitus, mild dementia admitted for hypoxic respiratory distress. Now on BiLevel ventilation with improvement of his work of respiration. Acute hypoxic respiratory failure COPD Afib on Eliquis Coronary artery disease (s/p CABG) Congestive heart failure Obstructive sleep apnea Restrictive lung disease (history of asbestos exposure) Hypertension Hyperlipidemia Diabetes mellitus (insulin dependent) Hypothyroidism Mild dementia CKD IV Neurologic Dementia -Currently, awake and oriented -Monitor for signs of mental status changes Pulmonary Acute hypoxic respiratory failure COPD JUAN -Currently on BiLevel ventilation- settings changed to 18/ 6 rate 18 FiO2 45% - ABG greatly improved today 7.46/50.8/69.8/35.4 -Continue to follow ABGs (this afternoon and tomorrow AM), adjust BiPAP as needed -CXR today looks slightly worse than yesterday, continue diuretics and F/U repeat chest radiograph in AM -Maintain oxygen saturation greater than 90% -F/U with Dr. Downey to see if patient is on CPAP or BiPAP at home -Medrol 60 q8H -Atrovent nebulizer QID, holding albuterol for now as patient is tachycardic Cardiac -Eliquis 2.5mg PO BID -Aspirin 81mg PO daily -Lasix 100mg IV BID diuresis -Metoprolol 50mg PO BID for rate control -Strict intake, output. Daily weight Gastrointestinal -NPO while on BiPAP, otherwise patient has a good swallow and is tolerating a Na controlled diet -Protonix 40mg IV daily Endocrine DM Hypothyroid -Insulin sliding scale ACHS -Synthroid 50mcg PO daily Renal CKD IV -Cr 1.7- appears at baseline -Dyer placed for strict Is/Os. -Follow Bun/ Cr Musculoskeletal Gout -Febuxostat 40mg PO daily -Colchicine 0.6mg PO BID FEN -No IV fluids indicated, actively diuresing -Follow BMP, replete as necessary -NPO while on BiPAP, otherwise Diabetic, sodium modified diet Disposition: Patient is stable for transfer to telemetry for further monitoring. Thank you for this consultative opportunity. Visit type - Emergency Visit Emergency Visit: Yes ED Registration Date: 11/04/18 Care time: The patient presented to the Emergency Department on the above date and was hospitalized for further evaluation of their emergent condition. - New Patient This patient is new to me today: No - Critical Care Critical Care patient: Yes Total Critical Care Time (in minutes): 41 Critical Care Statement: The care of this patient involved high complexity decision making to prevent further life threatening deterioration of the patient 's condition and/or to evaluate & treat vital organ system(s) failure or risk of failure. ATTENDING PHYSICIAN STATEMENT I saw and evaluated the patient. I reviewed the resident's note and discussed the case with the resident. I agree with the resident's findings and plan as documented. SUBJECTIVE: OBJECTIVE: ASSESSMENT AND PLAN:
[2018-11-09] MEDS: INSULIN SLIDING SCALE (NOVOLOG) 1 VIAL SQ SCH ×4 (06:18→21:44)
[2018-11-09] MEDS: FUROSEMIDE 100 MG/10 ML INJECTABLE VIAL IVPB SCH (06:19)
[2018-11-09] MEDS: LEVOTHYROXINE NA 50 MCG TABLET (FP) PO SCH (06:23)
[2018-11-09 07:05] LABS: ARTERIAL BLOOD GAS PCO2 63.4 mmHg (35-45); ARTERIAL BLOOD GAS PO2 91.9 mmHg (80-100); ARTERIAL BLOOD GAS pH 7.42 (7.35-7.45)
[2018-11-09 07:06] LABS: ARTERIAL BLD GAS O2 SATURATION 96.5 % (95-98); ARTERIAL BLOOD GAS BASE EXCESS 12.9 meq/l (-2-2)
[2018-11-09 07:07] LABS: ALLENS TEST POSITIVE
[2018-11-09 07:35] LABS: CALCIUM 8.1 mg/dL (8.5-10.1); CREATININE 2.4 mg/dL (0.55-1.3); POTASSIUM 4.4 mmol/L (3.5-5.1)
[2018-11-09 07:53] LABS: HEMATOCRIT 35.6 % (35.4-49); HEMOGLOBIN 11.8 GM/dL (11.7-16.9); MCH 29.9 pg (25.7-33.7); MCHC 33.1 g/dl (32.0-35.9); MEAN CELL VOLUME 90.3 fl (80-96); MEAN PLT VOLUME 8.7 fl (7.5-11.1); PLATELET COUNT 190 K/MM3 (134-434); RBC 3.94 M/mm3 (4.00-5.60); RDW 18.2 % (11.9-15.9); WHITE BLOOD COUNT 8.7 K/mm3 (4.0-10.0)
--- NOTE | 2018-11-09 08:08 | PN ---
Physical Exam: SUBJECTIVE: Patient seen and examined at bedside. No acute events reported overnight. Patient states shortness of breath improved on night BiPAP, currently breathing comfortably on NC, expresses a desire for discharge. OBJECTIVE: General: awake, alert, speaking full sentences without any tachypena CV: S1, S2, RRR Respiratory: Scattered rhonchi, breathing comfortably on NC Abdomen: soft, distended, no TTP, (+) bowel sounds Extremity: 2+ DP pulses B/L, no edema Vital Signs Period Temp Pulse Resp BP Sys/Junior Pulse Ox Last 24 Hr 97.4 F-98.1 F 76-94 20-31 106-135/57-91 93-97 Laboratory Results - last 24 hr 11/08/18 11/08/18 11/08/18 05:50 05:50 11:40 WBC 4.8 RBC 4.13 Hgb 12.4 Hct 38.0 MCV 92.0 MCH 29.9 MCHC 32.5 RDW 18.3 H Plt Count 168 MPV 8.8 Anticoagulation Therapy Puncture Site ABG pH ABG pCO2 at Pt Temp ABG pO2 at Pt Temp ABG HCO3 ABG O2 Sat (Measured) ABG O2 Content ABG Base Excess Esteban Test O2 Delivery Device Oxygen Flow Rate Vent Mode Vent Rate Mechanical Rate Pressure Support Vent Sodium 144 Potassium 4.2 Chloride 94 L Carbon Dioxide 40 H Anion Gap 11 BUN 70.9 H Creatinine 2.1 H Est GFR (CKD-EPI)AfAm 31.84 Est GFR (CKD-EPI)NonAf 27.47 POC Glucometer 297 Random Glucose 172 H Calcium 8.7 Phosphorus 3.8 Magnesium 2.4 Total Bilirubin 0.8 AST 18 ALT 21 Alkaline Phosphatase 76 Total Protein 6.3 L Albumin 3.0 L 11/08/18 11/08/18 11/09/18 17:22 22:14 06:00 WBC RBC Hgb Hct MCV MCH MCHC RDW Plt Count MPV Anticoagulation Therapy Puncture Site ABG pH ABG pCO2 at Pt Temp ABG pO2 at Pt Temp ABG HCO3 ABG O2 Sat (Measured) ABG O2 Content ABG Base Excess Esteban Test O2 Delivery Device Oxygen Flow Rate Vent Mode Vent Rate Mechanical Rate Pressure Support Vent Sodium 135 L Potassium 4.4 Chloride 89 L Carbon Dioxide 39 H Anion Gap 8 BUN 96.0 H Creatinine 2.4 H Est GFR (CKD-EPI)AfAm 27.09 Est GFR (CKD-EPI)NonAf 23.38 POC Glucometer 386 320 Random Glucose 272 H Calcium 8.1 L Phosphorus Magnesium Total Bilirubin AST ALT Alkaline Phosphatase Total Protein Albumin 11/09/18 11/09/18 11/09/18 06:10 06:16 06:30 WBC 8.7 RBC 3.94 L Hgb 11.8 Hct 35.6 MCV 90.3 MCH 29.9 MCHC 33.1 RDW 18.2 H Plt Count 190 MPV 8.7 Anticoagulation Therapy No Result Required. Puncture Site Right radial ABG pH 7.42 ABG pCO2 at Pt Temp 63.4 H ABG pO2 at Pt Temp 91.9 ABG HCO3 40.2 H ABG O2 Sat (Measured) 96.5 ABG O2 Content 96.5 ABG Base Excess 12.9 H Esteban Test Positive O2 Delivery Device Bipap Oxygen Flow Rate No Result Required. Vent Mode St Vent Rate 18 Mechanical Rate No Result Required. Pressure Support Vent No Result Required. Sodium Potassium Chloride Carbon Dioxide Anion Gap BUN Creatinine Est GFR (CKD-EPI)AfAm Est GFR (CKD-EPI)NonAf POC Glucometer 255 Random Glucose Calcium Phosphorus Magnesium Total Bilirubin AST ALT Alkaline Phosphatase Total Protein Albumin Active Medications Generic Name Dose Route Start Last Admin Trade Name Freq PRN Reason Stop Dose Admin Acetaminophen 650 mg 11/08/18 11:28 11/08/18 12:45 Tylenol - PO 650 mg Q6H PRN Administration HEADACHE Apixaban 2.5 mg 11/05/18 01:00 11/08/18 22:11 Eliquis - PO 2.5 mg BID JOE Administration Aspirin 81 mg 11/05/18 10:00 11/08/18 10:03 Asa - PO 81 mg DAILY JOE Administration Bisacodyl 10 mg 11/08/18 08:37 Dulcolax Suppository - [place] DAILY PRN CONSTIPATION Colchicine 0.6 mg 11/05/18 10:00 11/08/18 22:10 Colcrys PO 0.6 mg BID JOE Administration Febuxostat 40 mg 11/05/18 10:00 11/08/18 10:04 Uloric - PO 40 mg DAILY JOE Administration Furosemide 100 mg 11/06/18 12:00 11/09/18 06:19 Lasix Injection - IVPB 100 mg BID@0600,1400 JOE Administration Insulin Aspart 0 vial 11/04/18 22:00 11/09/18 06:18 Novolog Vial Sliding Scale - SQ 6 units ACHS JOE Administration Protocol Ipratropium [place] 1 amp 11/07/18 12:00 11/08/18 20:30 Atrovent 0.02% Nebulizer - NEB 1 amp RQID JOE Administration Levothyroxine Sodium 50 mcg 11/05/18 08:05 11/09/18 06:23 Synthroid - PO 50 mcg DAILY@0700 JOE Administration Methylprednisolone Sodium Succinate 60 mg 11/08/18 10:00 11/08/18 10:03 Solu-Medrol - IVPUSH 60 mg DAILY JOE Administration Metoprolol Succinate 50 mg 11/05/18 10:00 11/08/18 22:11 Toprol Xl - PO 50 mg BID JOE Administration Non-Formulary Medication 290 mcg 11/05/18 10:00 Linaclotide [Linzess] PO DAILY JOE Pantoprazole Sodium 40 mg 11/07/18 10:00 11/08/18 10:03 Protonix Iv IVPUSH 40 mg DAILY JOE Administration Polyethylene Glycol 17 gm 11/08/18 10:00 11/08/18 22:10 Miralax (For Daily Use) - PO 17 gm BID JOE Administration ASSESSMENT/PLAN: Patient is an 88 year old male with history of Afib (on Eliquis), coronary artery disease (s/p CABG), congestive heart failure, COPD (on home O2), obstructive sleep apnea, restrictive lung disease (history of asbestos exposure) , chronic kidney disease (stage IV), hypertension, hyperlipidemia, insulin dependent diabetes mellitus, mild dementia admitted for hypoxic respiratory distress. Now on BiLevel ventilation with improvement of his work of respiration. Acute hypoxic respiratory failure COPD Afib on Eliquis Coronary artery disease (s/p CABG) Congestive heart failure Obstructive sleep apnea Restrictive lung disease (history of asbestos exposure) Hypertension Hyperlipidemia Diabetes mellitus (insulin dependent) Hypothyroidism Mild dementia CKD IV Neurologic Dementia -Currently, awake and oriented -Monitor for signs of mental status changes Pulmonary Acute hypoxic respiratory failure COPD JUAN - Currently on NC (daytime), BiPAP (overnight) - ABG 7.42/63.4/91.9/40.2 -Continue to follow ABGs, adjust BiPAP as needed -CXR yesterday looks slightly worse than day before, continue diuretics and repeat CXR pending today -Maintain oxygen saturation greater than 90% -Medrol 60 q8H Cardiac -Eliquis 2.5mg PO BID -Aspirin 81mg PO daily -Lasix 100mg IV BID diuresis -Metoprolol 50mg PO BID for rate control -Strict intake, output. Daily weight Gastrointestinal -NPO while on BiPAP, otherwise patient has a good swallow and is tolerating a Na controlled diet -Protonix 40mg IV daily Endocrine DM Hypothyroid -Insulin sliding scale ACHS -Synthroid 50mcg PO daily Renal CKD IV -Cr 2.4- appears at baseline -Dyer placed for strict Is/Os. -Follow Bun/ Cr Musculoskeletal Gout -Febuxostat 40mg PO daily -Colchicine 0.6mg PO BID FEN -No IV fluids indicated, actively diuresing -Follow BMP, replete as necessary -NPO while on BiPAP, otherwise Diabetic, sodium modified diet - suspect mild hyponatremia (135) 2/2 to decreased PO intake, continue to monitor Disposition: Patient is stable for transfer to telemetry for further monitoring. Thank you for this consultative opportunity. Visit type - Emergency Visit Emergency Visit: No - New Patient This patient is new to me today: No - Critical Care Critical Care patient: No ATTENDING PHYSICIAN STATEMENT I saw and evaluated the patient. I reviewed the resident's note and discussed the case with the resident. I agree with the resident's findings and plan as documented. SUBJECTIVE: OBJECTIVE: ASSESSMENT AND PLAN:
[2018-11-09] MEDS: IPRATROPIUM BR 0.02% 0.5 MG/2.5 ML VIAL.NEB. NEB SCH ×4 (08:20→20:42)
--- NOTE | 2018-11-09 08:50 | PN ---
Progress Note, Physician Chief Complaint: More awake, alert today, c/o dry mouth History of Present Illness: Cronic hypercarbic respiratory failure. at night bipap 15/8 Persistent 6.7cm left basilar atelectasis/consolidation. CABG ASHD. DM type on Levemir/Januvia. CRI/ckd 4. 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 Previous Thoracentesis in the past-neg for malignancy. JUAN-at nights using CPAP. Chronic A.Fib. Combined CHF. Gout. Gouty arthritis. Previous rectal surgery for abscess, fistula at [facility]. - Current Medication List Current Medications: Active Medications Acetaminophen (Tylenol -) 650 mg PO Q6H PRN PRN Reason: HEADACHE Last Admin: 11/08/18 12:45 Dose: 650 mg Apixaban (Eliquis -) 2.5 mg PO BID [facility] Last Admin: 11/08/18 22:11 Dose: 2.5 mg Aspirin (Asa -) 81 mg PO DAILY [facility] Last Admin: 11/08/18 10:03 Dose: 81 mg Bisacodyl (Dulcolax Suppository -) 10 mg [place] DAILY PRN PRN Reason: CONSTIPATION Colchicine (Colcrys) 0.6 mg PO BID [facility] Last Admin: 11/08/18 22:10 Dose: 0.6 mg Febuxostat (Uloric -) 40 mg PO DAILY [facility] Last Admin: 11/08/18 10:04 Dose: 40 mg Furosemide (Lasix Injection -) 100 mg IVPB BID@0600,1400 [facility] Last Admin: 11/09/18 06:19 Dose: 100 mg Insulin Aspart (Novolog Vial Sliding Scale -) 0 vial SQ [facility]; Protocol Last Admin: 11/09/18 06:18 Dose: 6 units Ipratropium [place] (Atrovent 0.02% Nebulizer -) 1 amp NEB RQID [facility] Last Admin: 11/08/18 20:30 Dose: 1 amp Levothyroxine Sodium (Synthroid -) 50 mcg PO DAILY@0700 [facility] Last Admin: 11/09/18 06:23 Dose: 50 mcg Methylprednisolone Sodium Succinate (Solu-Medrol -) 60 mg IVPUSH DAILY [facility] Last Admin: 11/08/18 10:03 Dose: 60 mg Metoprolol Succinate (Toprol Xl -) 50 mg PO BID [facility] Last Admin: 11/08/18 22:11 Dose: 50 mg Non-Formulary Medication (Linaclotide [Linzess]) 290 mcg PO DAILY [facility] Pantoprazole Sodium (Protonix Iv) 40 mg IVPUSH DAILY [facility] Last Admin: 11/08/18 10:03 Dose: 40 mg Polyethylene Glycol (Miralax (For Daily Use) -) 17 gm PO BID [facility] Last Admin: 11/08/18 22:10 Dose: 17 gm - Objective Vital Signs: Vital Signs Temperature 97.4 F L 11/09/18 06:00 Pulse Rate 73 11/09/18 08:00 Respiratory Rate 23 H 11/09/18 08:00 Blood Pressure 119/72 11/09/18 08:00 O2 Sat by Pulse Oximetry (%) 96 11/09/18 06:51 Constitutional: Yes: Calm, Anxious, Moderate Distress Eyes: Yes: Conjunctiva Clear, EOM Intact HENT: Yes: Atraumatic, Normocephalic Neck: Yes: Supple, Trachea Midline Cardiovascular: Yes: Pulse Irregular Respiratory: Yes: Diminished Gastrointestinal: Yes: WNL, Normal Bowel Sounds ...Rectal Exam: Yes: Deferred Genitourinary: No: Anuria, Bladder Distention, CVA Tenderness - Left, CVA Tenderness - Right Breast(s): Yes: WNL Musculoskeletal: No: Back Pain Extremities: Yes: Other (SCDs). No: Amputation Edema: No Peripheral Pulses WNL: Yes Neurological: Yes: Alert, Oriented, Unresponsive. No: Aphasia, Dysarthria Psychiatric: Yes: WNL Labs: CBC, BMP 11/09/18 06:10 11/09/18 06:00 INR, PTT INR 1.08 (0.83-1.09) 11/04/18 19:55 Problem List - Problems (1) Acute kidney injury superimposed on CKD Assessment/Plan: Noted BUN/Creat Follow electrolytes Code(s): N17.9 - ACUTE KIDNEY FAILURE, UNSPECIFIED; N18.9 - CHRONIC KIDNEY DISEASE, UNSPECIFIED (2) Acute on chronic respiratory failure with hypoxia and hypercapnia Assessment/Plan: BIPAP, NIV Taper PREDNISONE to 60 mg daily Code(s): J96.21 - ACUTE AND CHRONIC RESPIRATORY FAILURE WITH HYPOXIA; J96.22 - ACUTE AND CHRONIC RESPIRATORY FAILURE WITH HYPERCAPNIA (3) Acute on chronic systolic (congestive) heart failure Assessment/Plan: Hold for 24 hrs Lasix IV Restart tomorrow, follow BMP. Code(s): I50.23 - ACUTE ON CHRONIC SYSTOLIC (CONGESTIVE) HEART FAILURE (4) CKD (chronic kidney disease) Assessment/Plan: Follow BUN/Creat Code(s): N18.9 - CHRONIC KIDNEY DISEASE, UNSPECIFIED Qualifiers: Chronic kidney disease stage: stage 3 (moderate) Qualified Code(s): N18.3 - Chronic kidney disease, stage 3 (moderate) (5) Diabetes 1.5, managed as type 2 Assessment/Plan: Follow BGM Noted episodes of low BGM Novolog coverage. Code(s): E13.9 - OTHER SPECIFIED DIABETES MELLITUS WITHOUT COMPLICATIONS (6) DNR (do not resuscitate) discussion Code(s): Z71.89 - OTHER SPECIFIED COUNSELING
[2018-11-09] MEDS: ASPIRIN 81 MG CHEWABLE TABLETS PO SCH (09:52)
[2018-11-09] MEDS: PANTOPRAZOLE SODIUM 40 MG VIAL IVPUSH SCH (09:53)
[2018-11-09] MEDS: APIXABAN 2.5 MG TABLET PO SCH ×2 (09:53→21:25)
[2018-11-09] MEDS: methylPREDNISolone NA SUCC 40 MG/1 ML VIAL IVPUSH SCH (09:53)
[2018-11-09] MEDS: FEBUXOSTAT 40 MG TAB PO SCH (09:54)
[2018-11-09] MEDS: COLCHICINE 0.6 MG CAP PO SCH ×2 (09:54→21:27)
[2018-11-09] MEDS: POLYETHYLENE GLYCOL 3350 119 GM BTL PO SCH ×2 (10:01→21:28)
--- NOTE | 2018-11-09 11:47 | PN ---
Teaching Attending Note Name of Resident: Loan Castillo ATTENDING PHYSICIAN STATEMENT I saw and evaluated the patient. I reviewed the resident's note and discussed the case with the resident. I agree with the resident's findings and plan as documented. SUBJECTIVE: Pt seen and examined in the ICU. Mental status remains good. BiPAP overnight. OBJECTIVE: Vital Signs Period Temp Pulse Resp BP Sys/Junior Pulse Ox Last 24 Hr 97.4 F-98.8 F 73-94 20-31 106-135/57-91 93-97 Intake & Output 11/06/18 11/07/18 11/08/18 11/09/18 23:59 23:59 23:59 23:59 Intake Total 784 121 2347 200 Output Total 1620 Balance -297 852 4394 200 Weight 109.044 kg 108.862 kg 107.637 kg 110.858 kg Gen: NAD at rest Heart: RRR Lung: decreased breath sounds at the bases Abd: soft, nontender Ext: trace edema CBC, BMP 11/09/18 06:10 11/09/18 06:00 Active Medications Acetaminophen (Tylenol -) 650 mg PO Q6H PRN PRN Reason: HEADACHE Last Admin: 11/08/18 12:45 Dose: 650 mg Apixaban (Eliquis -) 2.5 mg PO BID [facility] Last Admin: 11/09/18 09:53 Dose: 2.5 mg Aspirin (Asa -) 81 mg PO DAILY [facility] Last Admin: 11/09/18 09:52 Dose: 81 mg Bisacodyl (Dulcolax Suppository -) 10 mg [place] DAILY PRN PRN Reason: CONSTIPATION Colchicine (Colcrys) 0.6 mg PO BID [facility] Last Admin: 11/09/18 09:54 Dose: 0.6 mg Febuxostat (Uloric -) 40 mg PO DAILY [facility] Last Admin: 11/09/18 09:54 Dose: 40 mg Furosemide (Lasix Injection -) 100 mg IVPB BID@0600,1400 [facility] Last Admin: 11/09/18 06:19 Dose: 100 mg Insulin Aspart (Novolog Vial Sliding Scale -) 0 vial SQ ACHS [facility]; Protocol Last Admin: 11/09/18 11:18 Dose: 6 units Ipratropium [place] (Atrovent 0.02% Nebulizer -) 1 amp NEB RQID [facility] Last Admin: 11/09/18 08:20 Dose: 1 amp Levothyroxine Sodium (Synthroid -) 50 mcg PO DAILY@0700 [facility] Last Admin: 11/09/18 06:23 Dose: 50 mcg Methylprednisolone Sodium Succinate (Solu-Medrol -) 60 mg IVPUSH DAILY [facility] Last Admin: 11/09/18 09:53 Dose: 60 mg Metoprolol Succinate (Toprol Xl -) 50 mg PO BID [facility] Last Admin: 11/09/18 10:02 Dose: 50 mg Non-Formulary Medication (Linaclotide [Linzess]) 290 mcg PO DAILY [facility] Pantoprazole Sodium (Protonix Iv) 40 mg IVPUSH DAILY [facility] Last Admin: 11/09/18 09:53 Dose: 40 mg Polyethylene Glycol (Miralax (For Daily Use) -) 17 gm PO BID [facility] Last Admin: 11/09/18 10:01 Dose: 17 gm ASSESSMENT AND PLAN: Acute on Chronic Hypoxic and Hypercapneic Respiratory Failure Acute on Chronic Systolic Heart Failure r/o Acute COPD Exacerbation Interstitial Lung Disease Pulmonary HTN Atrial Fibrillation CAD s/p CABG Acute on Chronic Renal Failure JUAN - hold lasix today - monitor urine output, creatinine - can change sterois to PO prednisone and complete 5 days total - inhaled bronchodilators - rate control - continue anticoagulation - BiPAP as needed - O2 to keep SpO2 88-92% - can monitor on telemetry with pulse oximetry monitoring critical care time spent in reviewing chart, evaluating patient and formulating plan 35 min
--- NOTE | 2018-11-09 13:15 | PN ---
Progress Note (short form) - Note Progress Note: s: no chest pain, palps, dizziness. dyspnea improving. Current Medications Generic Name Dose Route Start Last Admin Trade Name Freq PRN Reason Stop Dose Admin Acetaminophen 650 mg 11/08/18 11:28 11/08/18 12:45 Tylenol - PO 650 mg Q6H PRN Administration HEADACHE Apixaban 2.5 mg 11/05/18 01:00 11/09/18 09:53 Eliquis - PO 2.5 mg BID JOE Administration Aspirin 81 mg 11/05/18 10:00 11/09/18 09:52 Asa - PO 81 mg DAILY JOE Administration Bisacodyl 10 mg 11/08/18 08:37 Dulcolax Suppository - [place] DAILY PRN CONSTIPATION Colchicine 0.6 mg 11/05/18 10:00 11/09/18 09:54 Colcrys PO 0.6 mg BID JOE Administration Febuxostat 40 mg 11/05/18 10:00 11/09/18 09:54 Uloric - PO 40 mg DAILY JOE Administration Furosemide 100 mg 11/06/18 12:00 11/09/18 06:19 Lasix Injection - IVPB 100 mg BID@0600,1400 JOE Administration Insulin Aspart 0 vial 11/04/18 22:00 11/09/18 11:18 Novolog Vial Sliding Scale - SQ 6 units ACHS JOE Administration Protocol Ipratropium [place] 1 amp 11/07/18 12:00 11/09/18 08:20 Atrovent 0.02% Nebulizer - NEB 1 amp RQID JOE Administration Levothyroxine Sodium 50 mcg 11/05/18 08:05 11/09/18 06:23 Synthroid - PO 50 mcg DAILY@0700 JOE Administration Methylprednisolone Sodium Succinate 60 mg 11/08/18 10:00 11/09/18 09:53 Solu-Medrol - IVPUSH 60 mg DAILY JOE Administration Metoprolol Succinate 50 mg 11/05/18 10:00 11/09/18 10:02 Toprol Xl - PO 50 mg BID JOE Administration Non-Formulary Medication 290 mcg 11/05/18 10:00 Linaclotide [Linzess] PO DAILY JOE Pantoprazole Sodium 40 mg 11/07/18 10:00 11/09/18 09:53 Protonix Iv IVPUSH 40 mg DAILY JOE Administration Polyethylene Glycol 17 gm 11/08/18 10:00 11/09/18 10:01 Miralax (For Daily Use) - PO 17 gm BID JOE Administration Vital Signs Period Temp Pulse Resp BP Sys/Junior Pulse Ox Last 24 Hr 97.4 F-98.8 F 73-94 20-31 106-135/57-88 93-97 Constitutional: Yes: No Distress, Calm Eyes: No: Sclera Icterus HENT: No: Nasal Congestion Cardiovascular: Yes: Regular Rate and Rhythm, S1, S2, Other (PMI non diplaced). No: JVD (prohibitively tds exam), Gallop, Murmur Respiratory: Yes: CTA Bilaterally. No: Accessory Muscle Use, Rales, Wheezes Gastrointestinal: Yes: Normal Bowel Sounds, Soft. No: Tenderness Musculoskeletal: Yes: Other (No kyphosis) Extremities: No: Cyanosis Edema: No Integumentary: No: Jaundice Neurological: Yes: Alert, Oriented (x3) Psychiatric: No: Agitated Assessment/Plan Echo 04/2018: EF 45%, mod MR/TR, at least mild , moderate to severe PHTN Nuclear stress 2017: Pharm: small inferolat infarct, mild arlin-infarct ischemia , Overall EF 35-40% CXR: "vs prior, again noted is...congestive changes" ECG: afib, nonsp TWA lateral leads--no change vs prior tele: afib, HR controlled IMP: -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 (home regimen: torsemide 100 bid, spironolactone 25, metopr. no BETTY/ARB due to CKD) -Chronic respiratory failure -Asbestos lung dz/ ILD, on home O2. 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 required lasix 100 iv bid diuresis then. - sob improving, weight down with lasix 100 mg IV BID, continue tomorrow-->held today by pmd for elevated cr -continued NIPPV, suppl O2 per pmd, hospitalist -per Dr. Curiel: given the extremely low risk of cardiomems device (essentially risk of a routine RHC), and the hi risk of permanent worsening of renal fxn with recurrent CHF episodes or with overdiuresis in pt with extremely limited ability to assess volume status on clinical grounds, will strongly rec they continue to discuss this possibility with dr dumont (not an option until he is well diuresed and stable) -tele monitoring
--- NOTE | 2018-11-09 15:46 | PN ---
Progress Note, Physician History of Present Illness: stable no new issues still requiring resp support using bipap mostly at night - Current Medication List Current Medications: Active Medications Acetaminophen (Tylenol -) 650 mg PO Q6H PRN PRN Reason: HEADACHE Last Admin: 11/08/18 12:45 Dose: 650 mg Apixaban (Eliquis -) 2.5 mg PO BID [facility] Last Admin: 11/09/18 09:53 Dose: 2.5 mg Aspirin (Asa -) 81 mg PO DAILY [facility] Last Admin: 11/09/18 09:52 Dose: 81 mg Bisacodyl (Dulcolax Suppository -) 10 mg [place] DAILY PRN PRN Reason: CONSTIPATION Colchicine (Colcrys) 0.6 mg PO BID [facility] Last Admin: 11/09/18 09:54 Dose: 0.6 mg Febuxostat (Uloric -) 40 mg PO DAILY [facility] Last Admin: 11/09/18 09:54 Dose: 40 mg Furosemide (Lasix Injection -) 100 mg IVPB BID@0600,1400 [facility] Last Admin: 11/09/18 06:19 Dose: 100 mg Insulin Aspart (Novolog Vial Sliding Scale -) 0 vial SQ [facility]; Protocol Last Admin: 11/09/18 11:18 Dose: 6 units Ipratropium [place] (Atrovent 0.02% Nebulizer -) 1 amp NEB RQID [facility] Last Admin: 11/09/18 11:20 Dose: 1 amp Levothyroxine Sodium (Synthroid -) 50 mcg PO DAILY@0700 [facility] Last Admin: 11/09/18 06:23 Dose: 50 mcg Methylprednisolone Sodium Succinate (Solu-Medrol -) 60 mg IVPUSH DAILY [facility] Last Admin: 11/09/18 09:53 Dose: 60 mg Metoprolol Succinate (Toprol Xl -) 50 mg PO BID [facility] Last Admin: 11/09/18 10:02 Dose: 50 mg Non-Formulary Medication (Linaclotide [Linzess]) 290 mcg PO DAILY [facility] Pantoprazole Sodium (Protonix Iv) 40 mg IVPUSH DAILY [facility] Last Admin: 11/09/18 09:53 Dose: 40 mg Polyethylene Glycol (Miralax (For Daily Use) -) 17 gm PO BID [facility] Last Admin: 11/09/18 10:01 Dose: 17 gm - Objective Vital Signs: Vital Signs Temperature 97.7 F 11/09/18 14:00 Pulse Rate 76 11/09/18 14:00 Respiratory Rate 22 H 11/09/18 14:00 Blood Pressure 112/67 11/09/18 14:00 O2 Sat by Pulse Oximetry (%) 96 11/09/18 09:00 Constitutional: Yes: No Distress, Calm Cardiovascular: Yes: S1, S2 Respiratory: Yes: Regular, On BiPap, On Nasal O2, Poor Air Entry Gastrointestinal: Yes: Normal Bowel Sounds, Soft Musculoskeletal: Yes: WNL Extremities: Yes: WNL Neurological: Yes: Alert, Oriented Psychiatric: Yes: Alert, Oriented Labs: CBC, BMP 11/09/18 06:10 11/09/18 06:00 INR, PTT INR 1.08 (0.83-1.09) 11/04/18 19:55 Assessment/Plan Problem List - Problems (1) Atrial fibrillation Code(s): I48.91 - UNSPECIFIED ATRIAL FIBRILLATION Qualifiers: (2) CHF, acute on chronic Code(s): I50.9 - HEART FAILURE, UNSPECIFIED Qualifiers: (3) COPD (chronic obstructive pulmonary disease) Code(s): J44.9 - CHRONIC OBSTRUCTIVE PULMONARY DISEASE, UNSPECIFIED (4) Hypoxemia Code(s): R09.02 - HYPOXEMIA (5) ASHD (arteriosclerotic heart disease) Code(s): I25.10 - ATHSCL HEART DISEASE OF [place] CORONARY ARTERY W/O ANG PCTRS (6) Acute kidney injury superimposed on CKD Code(s): N17.9 - ACUTE KIDNEY FAILURE, UNSPECIFIED; N18.9 - CHRONIC KIDNEY DISEASE, UNSPECIFIED (7) Acute on chronic respiratory failure with hypoxia and hypercapnia Code(s): J96.21 - ACUTE AND CHRONIC RESPIRATORY FAILURE WITH HYPOXIA; J96.22 - ACUTE AND CHRONIC RESPIRATORY FAILURE WITH HYPERCAPNIA (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 - OTHER SPECIFIED PLEURAL CONDITIONS (9) CAD (coronary artery disease) Code(s): I25.10 - ATHSCL HEART DISEASE OF [place] CORONARY ARTERY W/O ANG PCTRS Qualifiers: Coronary Disease-Associated Artery/Lesion type: bypass graft, autologous artery Associated angina: without angina Qualified Code(s): I25.810 - Atherosclerosis of coronary artery bypass graft(s) without angina pectoris (10) DM type 2 (diabetes mellitus, type 2) Code(s): E11.9 - TYPE 2 DIABETES MELLITUS WITHOUT COMPLICATIONS Qualifiers: Diabetes mellitus terminologist insulin use: with shelter use Chronic kidney disease stage: stage 4 (severe) (11) HTN (hypertension) Code(s): I10 - ESSENTIAL (PRIMARY) HYPERTENSION (12) S/P CABG (coronary artery bypass graft) Code(s): Z95.1 - PRESENCE OF AORTOCORONARY BYPASS GRAFT Assessment/Plan 88 y.o. 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
[2018-11-10] MEDS: INSULIN SLIDING SCALE (NOVOLOG) 1 VIAL SQ SCH ×4 (06:09→21:29)
[2018-11-10] MEDS: LEVOTHYROXINE NA 50 MCG TABLET (FP) PO SCH (06:09)
--- NOTE | 2018-11-10 07:20 | PN ---
Progress Note, Physician Chief Complaint: Comfortable in bed on BIPAP in the ICU History of Present Illness: Cronic hypercarbic respiratory failure. at night bipap 15/8 Persistent 6.7cm left basilar atelectasis/consolidation. CABG ASHD. DM type on Levemir/Januvia. CRI/ckd 4. 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 Previous Thoracentesis in the past-neg for malignancy. JUAN-at nights using CPAP. Chronic A.Fib. Combined CHF. Gout. Gouty arthritis. Previous rectal surgery for abscess, fistula at [facility]. - Current Medication List Current Medications: Active Medications Acetaminophen (Tylenol -) 650 mg PO Q6H PRN PRN Reason: HEADACHE Last Admin: 11/08/18 12:45 Dose: 650 mg Apixaban (Eliquis -) 2.5 mg PO BID [facility] Last Admin: 11/09/18 21:25 Dose: 2.5 mg Aspirin (Asa -) 81 mg PO DAILY [facility] Last Admin: 11/09/18 09:52 Dose: 81 mg Bisacodyl (Dulcolax Suppository -) [address] DAILY PRN PRN Reason: CONSTIPATION Colchicine (Colcrys) 0.6 mg PO BID [facility] Last Admin: 11/09/18 21:27 Dose: 0.6 mg Febuxostat (Uloric -) 40 mg PO DAILY [facility] Last Admin: 11/09/18 09:54 Dose: 40 mg Furosemide (Lasix Injection -) 100 mg IVPB BID@0600,1400 [facility] Last Admin: 11/09/18 06:19 Dose: 100 mg Insulin Aspart (Novolog Vial Sliding Scale -) 0 vial SQ [facility]; Protocol Last Admin: 11/10/18 06:09 Dose: 8 units Ipratropium [place] (Atrovent 0.02% Nebulizer -) 1 amp NEB RQID [facility] Last Admin: 11/09/18 20:42 Dose: 1 amp Levothyroxine Sodium (Synthroid -) 50 mcg PO DAILY@0700 [facility] Last Admin: 11/10/18 06:09 Dose: 50 mcg Methylprednisolone Sodium Succinate (Solu-Medrol -) 60 mg IVPUSH DAILY [facility] Last Admin: 11/09/18 09:53 Dose: 60 mg Metoprolol Succinate (Toprol Xl -) 50 mg PO BID [facility] Last Admin: 11/09/18 21:25 Dose: 50 mg Non-Formulary Medication (Linaclotide [Linzess]) 290 mcg PO DAILY [facility] Pantoprazole Sodium (Protonix Iv) 40 mg IVPUSH DAILY [facility] Last Admin: 11/09/18 09:53 Dose: 40 mg Polyethylene Glycol (Miralax (For Daily Use) -) 17 gm PO BID [facility] Last Admin: 11/09/18 21:28 Dose: 17 gm - Objective Vital Signs: Vital Signs Temperature 98.6 F 11/10/18 06:00 Pulse Rate 70 11/10/18 06:00 Respiratory Rate 26 H 11/10/18 06:00 Blood Pressure 130/85 11/10/18 06:00 O2 Sat by Pulse Oximetry (%) 96 11/10/18 05:30 Constitutional: Yes: Anxious, Mild Distress Eyes: Yes: Conjunctiva Clear, EOM Intact HENT: Yes: Atraumatic, Normocephalic. No: Drooling Neck: Yes: Supple, Trachea Midline. No: Decreased ROM, Lymphadenopathy Cardiovascular: Yes: Pulse Irregular, S1, S2. No: Bradycardia, Tachycardia Respiratory: Yes: Diminished (B/l) Gastrointestinal: Yes: Normal Bowel Sounds, Soft, Abdomen, Obese. No: Palpable Mass, Tenderness ...Rectal Exam: Yes: Deferred Genitourinary: No: Anuria, Bladder Distention, CVA Tenderness - Left, CVA Tenderness - Right Breast(s): Yes: WNL Musculoskeletal: Yes: WNL Extremities: No: Amputation, Calf Tenderness Edema: Yes Edema: LLE: Trace, RLE: Trace Peripheral Pulses WNL: No Neurological: Yes: WNL, Alert, Oriented ...Motor Strength: WNL Psychiatric: Yes: Alert, Oriented. No: Agitated, Suicidal Ideation Labs: CBC, BMP 11/09/18 06:10 INR, PTT INR 1.08 (0.83-1.09) 11/04/18 19:55 Problem List - Problems (1) Acute kidney injury superimposed on CKD Assessment/Plan: Noted BUN/Creat Follow electrolytes Code(s): N17.9 - ACUTE KIDNEY FAILURE, UNSPECIFIED; N18.9 - CHRONIC KIDNEY DISEASE, UNSPECIFIED (2) Acute on chronic respiratory failure with hypoxia and hypercapnia Assessment/Plan: BIPAP, NIV Code(s): J96.21 - ACUTE AND CHRONIC RESPIRATORY FAILURE WITH HYPOXIA; J96.22 - ACUTE AND CHRONIC RESPIRATORY FAILURE WITH HYPERCAPNIA (3) Acute on chronic systolic (congestive) heart failure Assessment/Plan: Hold for 24 hrs Lasix IV Restart tomorrow, follow BMP. Code(s): I50.23 - ACUTE ON CHRONIC SYSTOLIC (CONGESTIVE) HEART FAILURE (4) CKD (chronic kidney disease) Assessment/Plan: Follow BUN/Creat Code(s): N18.9 - CHRONIC KIDNEY DISEASE, UNSPECIFIED Qualifiers: Chronic kidney disease stage: stage 3 (moderate) Qualified Code(s): N18.3 - Chronic kidney disease, stage 3 (moderate) (5) Diabetes 1.5, managed as type 2 Assessment/Plan: Follow BGM Noted episodes of low BGM Novolog coverage. Code(s): E13.9 - OTHER SPECIFIED DIABETES MELLITUS WITHOUT COMPLICATIONS (6) DNR (do not resuscitate) discussion Assessment/Plan: DNR/DNI order written after discussion with the family. . Code(s): Z71.89 - OTHER SPECIFIED COUNSELING
[2018-11-10 07:43] LABS: BLOOD UREA NITROGEN 88.2 mg/dL (7-18); CALCIUM 8.1 mg/dL (8.5-10.1); CREATININE 2.1 mg/dL (0.55-1.3); POTASSIUM 4.3 mmol/L (3.5-5.1)
[2018-11-10] MEDS: IPRATROPIUM BR 0.02% 0.5 MG/2.5 ML VIAL.NEB. NEB SCH ×4 (07:45→20:40)
--- NOTE | 2018-11-10 09:33 | PN ---
Progress Note, Physician History of Present Illness: patient stable says he has not walked breathing better now on nasal canula - Current Medication List Current Medications: Active Medications Acetaminophen (Tylenol -) 650 mg PO Q6H PRN PRN Reason: HEADACHE Last Admin: 11/08/18 12:45 Dose: 650 mg Apixaban (Eliquis -) 2.5 mg PO BID [facility] Last Admin: 11/09/18 21:25 Dose: 2.5 mg Aspirin (Asa -) 81 mg PO DAILY [facility] Last Admin: 11/09/18 09:52 Dose: 81 mg Bisacodyl (Dulcolax Suppository -) 10 mg [place] DAILY PRN PRN Reason: CONSTIPATION Colchicine (Colcrys) 0.6 mg PO BID [facility] Last Admin: 11/09/18 21:27 Dose: 0.6 mg Febuxostat (Uloric -) 40 mg PO DAILY [facility] Last Admin: 11/09/18 09:54 Dose: 40 mg Furosemide (Lasix Injection -) 100 mg IVPB BID@0600,1400 [facility] Last Admin: 11/09/18 06:19 Dose: 100 mg Insulin Aspart (Novolog Vial Sliding Scale -) 0 vial SQ ACHS [facility]; Protocol Last Admin: 11/10/18 06:09 Dose: 8 units Ipratropium [place] (Atrovent 0.02% Nebulizer -) 1 amp NEB RQID [facility] Last Admin: 11/10/18 07:45 Dose: 1 amp Levothyroxine Sodium (Synthroid -) 50 mcg PO DAILY@0700 [facility] Last Admin: 11/10/18 06:09 Dose: 50 mcg Methylprednisolone Sodium Succinate (Solu-Medrol -) 40 mg IVPUSH DAILY [facility] Metoprolol Succinate (Toprol Xl -) 50 mg PO BID [facility] Last Admin: 11/09/18 21:25 Dose: 50 mg Non-Formulary Medication (Linaclotide [Linzess]) 290 mcg PO DAILY [facility] Pantoprazole Sodium (Protonix Iv) 40 mg IVPUSH DAILY [facility] Last Admin: 11/09/18 09:53 Dose: 40 mg Polyethylene Glycol (Miralax (For Daily Use) -) 17 gm PO BID [facility] Last Admin: 11/09/18 21:28 Dose: 17 gm - Objective Vital Signs: Vital Signs Temperature 98.6 F 11/10/18 06:00 Pulse Rate 70 11/10/18 06:00 Respiratory Rate 26 H 11/10/18 06:00 Blood Pressure 130/85 11/10/18 06:00 O2 Sat by Pulse Oximetry (%) 99 11/10/18 08:43 Constitutional: Yes: No Distress, Calm Cardiovascular: Yes: S1, S2 Respiratory: Yes: On Nasal O2, Poor Air Entry, Other Gastrointestinal: Yes: Normal Bowel Sounds, Soft Musculoskeletal: Yes: WNL Extremities: Yes: WNL Neurological: Yes: Alert, Oriented Psychiatric: Yes: Alert, Oriented Labs: CBC, BMP 11/09/18 06:10 11/10/18 05:45 INR, PTT INR 1.08 (0.83-1.09) 11/04/18 19:55 Assessment/Plan Problem List - Problems (1) Atrial fibrillation Code(s): I48.91 - UNSPECIFIED ATRIAL FIBRILLATION Qualifiers: (2) CHF, acute on chronic Code(s): I50.9 - HEART FAILURE, UNSPECIFIED Qualifiers: (3) COPD (chronic obstructive pulmonary disease) Code(s): J44.9 - CHRONIC OBSTRUCTIVE PULMONARY DISEASE, UNSPECIFIED (4) Hypoxemia Code(s): R09.02 - HYPOXEMIA (5) ASHD (arteriosclerotic heart disease) Code(s): I25.10 - ATHSCL HEART DISEASE OF [place] CORONARY ARTERY W/O ANG PCTRS (6) Acute kidney injury superimposed on CKD Code(s): N17.9 - ACUTE KIDNEY FAILURE, UNSPECIFIED; N18.9 - CHRONIC KIDNEY DISEASE, UNSPECIFIED (7) Acute on chronic respiratory failure with hypoxia and hypercapnia Code(s): J96.21 - ACUTE AND CHRONIC RESPIRATORY FAILURE WITH HYPOXIA; J96.22 - ACUTE AND CHRONIC RESPIRATORY FAILURE WITH HYPERCAPNIA (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 - OTHER SPECIFIED PLEURAL CONDITIONS (9) CAD (coronary artery disease) Code(s): I25.10 - ATHSCL HEART DISEASE OF [place] CORONARY ARTERY W/O ANG PCTRS Qualifiers: Coronary Disease-Associated Artery/Lesion type: bypass graft, autologous artery Associated angina: without angina Qualified Code(s): I25.810 - Atherosclerosis of coronary artery bypass graft(s) without angina pectoris (10) DM type 2 (diabetes mellitus, type 2) Code(s): E11.9 - TYPE 2 DIABETES MELLITUS WITHOUT COMPLICATIONS Qualifiers: Diabetes mellitus senior living insulin use: with senior living use Chronic kidney disease stage: stage 4 (severe) (11) HTN (hypertension) Code(s): I10 - ESSENTIAL (PRIMARY) HYPERTENSION (12) S/P CABG (coronary artery bypass graft) Code(s): Z95.1 - PRESENCE OF AORTOCORONARY BYPASS GRAFT Assessment/Plan 88 y.o. 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
[2018-11-10] MEDS ORDERED: methylPREDNISolone NA SUCC 40 MG/1 ML VIAL IVPUSH SCH (10:00)
[2018-11-10] MEDS ORDERED: PT OWN MED DRAWER 7, Y5N ONE ×2 (10:02→15:32)
[2018-11-10] MEDS: FEBUXOSTAT 40 MG TAB PO SCH (10:11)
[2018-11-10] MEDS: APIXABAN 2.5 MG TABLET PO SCH ×2 (10:12→21:34)
[2018-11-10] MEDS: ASPIRIN 81 MG CHEWABLE TABLETS PO SCH (10:12)
[2018-11-10] MEDS: COLCHICINE 0.6 MG CAP PO SCH ×2 (10:12→21:34)
[2018-11-10] MEDS: POLYETHYLENE GLYCOL 3350 119 GM BTL PO SCH ×2 (11:10→21:26)
--- NOTE | 2018-11-10 11:50 | PN ---
Teaching Attending Note Name of Resident: Mishel Nolen ATTENDING PHYSICIAN STATEMENT I saw and evaluated the patient. I reviewed the resident's note and discussed the case with the resident. I agree with the resident's findings and plan as documented. SUBJECTIVE: Pt seen and examined in the ICU. Continues to do well. BiPAP overnight. Denies shortness of breath or chest pain. OBJECTIVE: Vital Signs Period Temp Pulse Resp BP Sys/Junior Pulse Ox Last 24 Hr 97.3 F-98.6 F 70-89 19-29 112-143/67-85 94-99 Intake & Output 11/07/18 11/08/18 11/09/18 11/10/18 23:59 23:59 23:59 23:59 Intake Total 200 3950 650 1125 Balance 200 3950 650 1125 Weight 108.862 kg 107.637 kg 110.858 kg 111.221 kg Gen: NAD at rest Heart: RRR Lung: decreased breath sounds at the bases Abd: soft, nontender Ext: no edema CBC, BMP 11/09/18 06:10 11/10/18 05:45 Active Medications Acetaminophen (Tylenol -) 650 mg PO Q6H PRN PRN Reason: HEADACHE Last Admin: 11/08/18 12:45 Dose: 650 mg Apixaban (Eliquis -) 2.5 mg PO BID [facility] Last Admin: 11/10/18 10:12 Dose: 2.5 mg Aspirin (Asa -) 81 mg PO DAILY [facility] Last Admin: 11/10/18 10:12 Dose: 81 mg Bisacodyl (Dulcolax Suppository -) 10 mg [place] DAILY PRN PRN Reason: CONSTIPATION Colchicine (Colcrys) 0.6 mg PO BID [facility] Last Admin: 11/10/18 10:12 Dose: 0.6 mg Febuxostat (Uloric -) 40 mg PO DAILY [facility] Last Admin: 11/10/18 10:11 Dose: 40 mg Furosemide (Lasix Injection -) 100 mg IVPB BID@0600,1400 [facility] Last Admin: 11/09/18 06:19 Dose: 100 mg Insulin Aspart (Novolog Vial Sliding Scale -) 0 vial SQ ACHS [facility]; Protocol Last Admin: 11/10/18 06:09 Dose: 8 units Ipratropium [place] (Atrovent 0.02% Nebulizer -) 1 amp NEB RQID [facility] Last Admin: 11/10/18 07:45 Dose: 1 amp Levothyroxine Sodium (Synthroid -) 50 mcg PO DAILY@0700 [facility] Last Admin: 11/10/18 06:09 Dose: 50 mcg Methylprednisolone Sodium Succinate (Solu-Medrol -) 40 mg IVPUSH DAILY [facility] Last Admin: 11/10/18 10:12 Dose: 40 mg Metoprolol Succinate (Toprol Xl -) 50 mg PO BID [facility] Last Admin: 11/10/18 10:12 Dose: 50 mg Non-Formulary Medication (Linaclotide [Linzess]) 290 mcg PO DAILY [facility] Pantoprazole Sodium (Protonix Iv) 40 mg IVPUSH DAILY [facility] Last Admin: 11/09/18 09:53 Dose: 40 mg Polyethylene Glycol (Miralax (For Daily Use) -) 17 gm PO BID [facility] Last Admin: 11/10/18 11:10 Dose: Not Given ASSESSMENT AND PLAN: Acute on Chronic Hypoxic and Hypercapneic Respiratory Failure improving Acute on Chronic Systolic Heart Failure r/o Acute COPD Exacerbation Interstitial Lung Disease Pulmonary HTN Atrial Fibrillation CAD s/p CABG Acute on Chronic Renal Failure JUAN - continue lasix per cardiology - monitor urine output, creatinine - can change sterois to PO prednisone and complete 5 days total - inhaled bronchodilators - rate control - continue anticoagulation - BiPAP at night and as needed during day - O2 to keep SpO2 88-92% - can monitor on floor - d/c planning
[2018-11-10] MEDS: PANTOPRAZOLE SODIUM 40 MG VIAL IVPUSH SCH (12:33)
--- NOTE | 2018-11-10 13:07 | PN ---
Progress Note (short form) - Note Progress Note: s: no chest pain, palps, dizziness. dyspnea improving. Current Medications Current Medications Generic Name Dose Route Start Last Admin Trade Name Freq PRN Reason Stop Dose Admin Acetaminophen 650 mg 11/08/18 11:28 11/08/18 12:45 Tylenol - PO 650 mg Q6H PRN Administration HEADACHE Apixaban 2.5 mg 11/05/18 01:00 11/10/18 10:12 Eliquis - PO 2.5 mg BID [facility] Administration Aspirin 81 mg 11/05/18 10:00 11/10/18 10:12 Asa - PO 81 mg DAILY [facility] Administration Bisacodyl 10 mg 11/08/18 08:37 Dulcolax Suppository - [place] DAILY PRN CONSTIPATION Colchicine 0.6 mg 11/05/18 10:00 11/10/18 10:12 Colcrys PO 0.6 mg BID [facility] Administration Febuxostat 40 mg 11/05/18 10:00 11/10/18 10:11 Uloric - PO 40 mg DAILY [facility] Administration Furosemide 100 mg 11/06/18 12:00 11/09/18 06:19 Lasix Injection - IVPB 100 mg BID@0600,1400 [facility] Administration Insulin Aspart 0 vial 11/04/18 22:00 11/10/18 12:21 Novolog Vial Sliding Scale - SQ 6 units ACHS [facility] Administration Protocol Ipratropium [place] 1 amp 11/07/18 12:00 11/10/18 11:56 Atrovent 0.02% Nebulizer - NEB 1 amp RQID [facility] Administration Levothyroxine Sodium 50 mcg 11/05/18 08:05 11/10/18 06:09 Synthroid - PO 50 mcg DAILY@0700 [facility] Administration Methylprednisolone Sodium Succinate 40 mg 11/10/18 10:00 11/10/18 10:12 Solu-Medrol - IVPUSH 40 mg DAILY [facility] Administration Metoprolol Succinate 50 mg 11/05/18 10:00 11/10/18 10:12 Toprol Xl - PO 50 mg BID [facility] Administration Non-Formulary Medication 290 mcg 11/05/18 10:00 Linaclotide [Linzess] PO DAILY [facility] Pantoprazole Sodium 40 mg 11/07/18 10:00 11/10/18 12:33 Protonix Iv IVPUSH 40 mg DAILY [facility] Administration Polyethylene Glycol 17 gm 11/08/18 10:00 11/10/18 11:10 Miralax (For Daily Use) - PO Not Given BID [facility] Vital Signs Period Temp Pulse Resp BP Sys/Junior Pulse Ox Last 24 Hr 97.3 F-98.6 F 70-89 19-29 112-143/67-85 94-99 Constitutional: Yes: No Distress, Calm Eyes: No: Sclera Icterus HENT: No: Nasal Congestion Cardiovascular: Yes: Regular Rate and Rhythm, S1, S2, Other (PMI non diplaced). No: JVD (prohibitively tds exam), Gallop, Murmur Respiratory: Yes: CTA Bilaterally. No: Accessory Muscle Use, Rales, Wheezes Gastrointestinal: Yes: Normal Bowel Sounds, Soft. No: Tenderness Musculoskeletal: Yes: Other (No kyphosis) Extremities: No: Cyanosis Edema: No Integumentary: No: Jaundice Neurological: Yes: Alert, Oriented (x3) Psychiatric: No: Agitated Assessment/Plan Echo 04/2018: EF 45%, mod MR/TR, at least mild , moderate to severe PHTN Nuclear stress 2017: Pharm: small inferolat infarct, mild arlin-infarct ischemia , Overall EF 35-40% CXR: "vs prior, again noted is...congestive changes" ECG: afib, nonsp TWA lateral leads--no change vs prior tele: afib, HR controlled IMP: -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 (home regimen: torsemide 100 bid, spironolactone 25, metopr. no BETTY/ARB due to CKD) -Chronic respiratory failure -Asbestos lung dz/ ILD, on home O2. 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 required lasix 100 iv bid diuresis then. -sob improving with lasix 100 mg IV BID, continue. daily chem7, wts. -continued NIPPV, suppl O2 per pmd, hospitalist -per Dr. Curiel: given the extremely low risk of cardiomems device (essentially risk of a routine RHC), and the hi risk of permanent worsening of renal fxn with recurrent CHF episodes or with overdiuresis in pt with extremely limited ability to assess volume status on clinical grounds, will strongly rec they continue to discuss this possibility with dr dumont (not an option until he is well diuresed and stable) -tele monitoring
--- NOTE | 2018-11-10 13:56 | PN ---
Physical Exam: SUBJECTIVE: Patient seen and examined at bedside. No acute events overnight. Patient satting well on NC during the day and complying with BiPAP at night. OBJECTIVE: Vital Signs Period Temp Pulse Resp BP Sys/Junior Pulse Ox Last 24 Hr 97.3 F-98.6 F 70-89 19-29 112-143/67-85 94-99 GENERAL: The patient is awake, alert, and fully oriented, in no acute distress. HEAD: Normal with no signs of trauma. EYES: PERRL, extraocular movements intact, sclera anicteric, conjunctiva clear. No ptosis. ENT: Ears normal, nares patent, moist mucous membranes. NECK: Trachea midline, full range of motion, supple. LUNGS: Breath sounds equal, scattered ronchi, no wheezes, no crackles, no accessory muscle use, breathing comfortably on NC HEART: Regular rate and rhythm, S1, S2 without murmur. ABDOMEN: Soft, nontender, obese, normoactive bowel sounds, no guarding, no rebound, no hepatosplenomegaly, no masses. EXTREMITIES: 2+ pulses, warm, well-perfused, no edema. NEUROLOGICAL: Cranial nerves II through XII grossly intact. Normal speech, gait not observed. PSYCH: Normal mood, normal affect. SKIN: Warm, dry, normal turgor, no rashes or lesions noted Laboratory Results - last 24 hr 11/09/18 11/09/18 11/10/18 17:03 21:41 05:45 Sodium 136 Potassium 4.3 Chloride 90 L Carbon Dioxide 41 H Anion Gap 5 L BUN 88.2 H Creatinine 2.1 H Est GFR (CKD-EPI)AfAm 31.84 Est GFR (CKD-EPI)NonAf 27.47 POC Glucometer 292 361 Random Glucose 327 H* Calcium 8.1 L 11/10/18 11/10/18 06:00 11:38 Sodium Potassium Chloride Carbon Dioxide Anion Gap BUN Creatinine Est GFR (CKD-EPI)AfAm Est GFR (CKD-EPI)NonAf POC Glucometer 297 269 Random Glucose Calcium Active Medications Generic Name Dose Route Start Last Admin Trade Name Freq PRN Reason Stop Dose Admin Acetaminophen 650 mg 11/08/18 11:28 11/08/18 12:45 Tylenol - PO 650 mg Q6H PRN Administration HEADACHE Apixaban 2.5 mg 11/05/18 01:00 11/10/18 10:12 Eliquis - PO 2.5 mg BID [facility] Administration Aspirin 81 mg 11/05/18 10:00 11/10/18 10:12 Asa - PO 81 mg DAILY [facility] Administration Bisacodyl 10 mg 11/08/18 08:37 Dulcolax Suppository - [place] DAILY PRN CONSTIPATION Colchicine 0.6 mg 11/05/18 10:00 11/10/18 10:12 Colcrys PO 0.6 mg BID [facility] Administration Febuxostat 40 mg 11/05/18 10:00 11/10/18 10:11 Uloric - PO 40 mg DAILY [facility] Administration Furosemide 100 mg 11/06/18 12:00 11/09/18 06:19 Lasix Injection - IVPB 100 mg BID@0600,1400 [facility] Administration Insulin Aspart 0 vial 11/04/18 22:00 11/10/18 12:21 Novolog Vial Sliding Scale - SQ 6 units ACHS [facility] Administration Protocol Ipratropium [place] 1 amp 11/07/18 12:00 11/10/18 11:56 Atrovent 0.02% Nebulizer - NEB 1 amp RQID [facility] Administration Levothyroxine Sodium 50 mcg 11/05/18 08:05 11/10/18 06:09 Synthroid - PO 50 mcg DAILY@0700 [facility] Administration Methylprednisolone Sodium Succinate 40 mg 11/10/18 10:00 11/10/18 10:12 Solu-Medrol - IVPUSH 40 mg DAILY [facility] Administration Metoprolol Succinate 50 mg 11/05/18 10:00 11/10/18 10:12 Toprol Xl - PO 50 mg BID [facility] Administration Non-Formulary Medication 290 mcg 11/05/18 10:00 Linaclotide [Linzess] PO DAILY [facility] Pantoprazole Sodium 40 mg 11/07/18 10:00 11/10/18 12:33 Protonix Iv IVPUSH 40 mg DAILY [facility] Administration Polyethylene Glycol 17 gm 11/08/18 10:00 11/10/18 11:10 Miralax (For Daily Use) - PO Not Given BID [facility] ASSESSMENT/PLAN: Patient is an 88 year old male with history of Afib (on Eliquis), coronary artery disease (s/p CABG), congestive heart failure, COPD (on home O2), obstructive sleep apnea, restrictive lung disease (history of asbestos exposure) , chronic kidney disease (stage IV), hypertension, hyperlipidemia, insulin dependent diabetes mellitus, mild dementia admitted for hypoxic respiratory distress. Now on BiLevel ventilation with improvement of his work of respiration. Acute hypoxic respiratory failure COPD Afib on Eliquis Coronary artery disease (s/p CABG) Congestive heart failure Obstructive sleep apnea Restrictive lung disease (history of asbestos exposure) Hypertension Hyperlipidemia Diabetes mellitus (insulin dependent) Hypothyroidism Mild dementia CKD IV Neurologic Dementia -Currently, awake and oriented -Monitor for signs of mental status changes Pulmonary Acute hypoxic respiratory failure COPD JUAN - Currently on NC (daytime), BiPAP (overnight) - ABG 11/09/18: 7.42/63.4/91.9/40.2 -CXR without changes -Maintain oxygen saturation greater than 90% -Medrol 60 q8H Cardiac -Eliquis 2.5mg PO BID -Aspirin 81mg PO daily -Lasix 100mg IV BID diuresis > holding for 24h per Dr. Moseley, will resume tomorrow -Metoprolol 50mg PO BID for rate control -Strict intake, output. Daily weight Gastrointestinal -NPO while on BiPAP, otherwise patient has a good swallow and is tolerating a Na controlled diet -Protonix 40mg IV daily Endocrine DM Hypothyroid -Insulin sliding scale ACHS -Synthroid 50mcg PO daily Renal CKD IV -Cr 2.4- appears at baseline -Dyer placed for strict Is/Os. -Follow Bun/ Cr Musculoskeletal Gout -Febuxostat 40mg PO daily -Colchicine 0.6mg PO BID FEN -No IV fluids indicated, actively diuresing -Follow BMP, replete as necessary -NPO while on BiPAP, otherwise Diabetic, sodium modified diet - suspect mild hyponatremia (135) 2/2 to decreased PO intake, continue to monitor Disposition: Patient is stable for transfer to med/surg and possible to home/ prison. Will need to follow up with Dr. Moseley to clarify discharge plans. Thank you for this consultative opportunity. Visit type - Emergency Visit Emergency Visit: Yes ED Registration Date: 11/04/18 Care time: The patient presented to the Emergency Department on the above date and was hospitalized for further evaluation of their emergent condition. - New Patient This patient is new to me today: No - Critical Care Critical Care patient: Yes Total Critical Care Time (in minutes): 40 Critical Care Statement: The care of this patient involved high complexity decision making to prevent further life threatening deterioration of the patient 's condition and/or to evaluate & treat vital organ system(s) failure or risk of failure. ATTENDING PHYSICIAN STATEMENT I saw and evaluated the patient. I reviewed the resident's note and discussed the case with the resident. I agree with the resident's findings and plan as documented. SUBJECTIVE: OBJECTIVE: ASSESSMENT AND PLAN:
[2018-11-10] MEDS: FUROSEMIDE 100 MG/10 ML INJECTABLE VIAL IVPB SCH (17:06)
[2018-11-10] MEDS: ACETAMINOPHEN 325 MG TABLET (FP) PO PRN (21:34)
[2018-11-11] MEDS: INSULIN SLIDING SCALE (NOVOLOG) 1 VIAL SQ SCH ×4 (06:39→21:20)
[2018-11-11] MEDS: LEVOTHYROXINE NA 50 MCG TABLET (FP) PO SCH (06:39)
[2018-11-11 07:09] LABS: HEMATOCRIT 37.5 % (35.4-49); HEMOGLOBIN 12.3 GM/dL (11.7-16.9); MCH 29.9 pg (25.7-33.7); MCHC 32.9 g/dl (32.0-35.9); MEAN CELL VOLUME 90.8 fl (80-96); MEAN PLT VOLUME 8.5 fl (7.5-11.1); PLATELET COUNT 182 K/MM3 (134-434); RBC 4.13 M/mm3 (4.00-5.60); RDW 18.3 % (11.9-15.9); WHITE BLOOD COUNT 7.1 K/mm3 (4.0-10.0)
[2018-11-11] MEDS: IPRATROPIUM BR 0.02% 0.5 MG/2.5 ML VIAL.NEB. NEB SCH ×4 (08:00→20:30)
[2018-11-11 09:28] LABS: ALBUMIN 2.9 g/dl (3.4-5.0); BILIRUBIN,TOTAL 0.3 mg/dL (0.2-1); BLOOD UREA NITROGEN 69.5 mg/dL (7-18); CALCIUM 8.5 mg/dL (8.5-10.1); CREATININE 1.7 mg/dL (0.55-1.3); POTASSIUM 4.6 mmol/L (3.5-5.1); TOT PROT 5.9 g/dl (6.4-8.2)
[2018-11-11] MEDS ORDERED: PT OWN MED DRAWER 7, Y5N ONE ×2 (09:37→21:08)
[2018-11-11] MEDS: APIXABAN 2.5 MG TABLET PO SCH ×2 (09:47→21:10)
[2018-11-11] MEDS: PANTOPRAZOLE SODIUM 40 MG VIAL IVPUSH SCH (09:47)
[2018-11-11] MEDS: COLCHICINE 0.6 MG CAP PO SCH ×2 (09:47→22:02)
[2018-11-11] MEDS: ASPIRIN 81 MG CHEWABLE TABLETS PO SCH (09:47)
[2018-11-11] MEDS: POLYETHYLENE GLYCOL 3350 119 GM BTL PO SCH ×2 (09:47→21:11)
[2018-11-11] MEDS: FEBUXOSTAT 40 MG TAB PO SCH (09:48)
--- NOTE | 2018-11-11 09:49 | PN ---
Progress Note (short form) - Note Progress Note: PULMONARY/CRITICAL CARE PROGRESS NOTE: SUBJECTIVE: Pt seen and examined in the ICU. Continues to do well. BiPAP overnight. Denies shortness of breath or chest pain. OBJECTIVE: Current Medications Acetaminophen (Tylenol -) 650 mg PO Q6H PRN PRN Reason: HEADACHE Last Admin: 11/10/18 21:34 Dose: 650 mg Apixaban (Eliquis -) 2.5 mg PO BID [facility] Last Admin: 11/10/18 21:34 Dose: 2.5 mg Aspirin (Asa -) 81 mg PO DAILY [facility] Last Admin: 11/10/18 10:12 Dose: 81 mg Bisacodyl (Dulcolax Suppository -) 10 mg [place] DAILY PRN PRN Reason: CONSTIPATION Colchicine (Colcrys) 0.6 mg PO BID [facility] Last Admin: 11/10/18 21:34 Dose: 0.6 mg Febuxostat (Uloric -) 40 mg PO DAILY [facility] Last Admin: 11/10/18 10:11 Dose: 40 mg Furosemide (Lasix Injection -) 100 mg IVPB BID@0600,1400 [facility] Last Admin: 11/10/18 17:06 Dose: Not Given Insulin Aspart (Novolog Vial Sliding Scale -) 0 vial SQ ACHS [facility]; Protocol Last Admin: 11/11/18 06:39 Dose: 4 units Insulin Detemir (Levemir Vial) 5 units SQ BID [facility] Ipratropium [place] (Atrovent 0.02% Nebulizer -) 1 amp NEB RQID [facility] Last Admin: 11/11/18 08:00 Dose: 1 amp Levothyroxine Sodium (Synthroid -) 50 mcg PO DAILY@0700 [facility] Last Admin: 11/11/18 06:39 Dose: 50 mcg Methylprednisolone Sodium Succinate (Solu-Medrol -) 40 mg IVPUSH DAILY [facility] Last Admin: 11/10/18 10:12 Dose: 40 mg Metoprolol Succinate (Toprol Xl -) 50 mg PO BID [facility] Last Admin: 11/10/18 21:34 Dose: 50 mg Non-Formulary Medication (Linaclotide [Linzess]) 290 mcg PO DAILY [facility] Pantoprazole Sodium (Protonix Iv) 40 mg IVPUSH DAILY [facility] Last Admin: 11/10/18 12:33 Dose: 40 mg Polyethylene Glycol (Miralax (For Daily Use) -) 17 gm PO BID [facility] Last Admin: 11/10/18 21:26 Dose: Not Given Vital Signs Temp 98.5 F 11/11/18 06:00 Pulse 70 11/11/18 06:00 Resp 25 H 11/11/18 06:00 BP 137/79 11/11/18 06:00 Pulse Ox 98 11/11/18 08:00 Intake & Output 11/10/18 11/11/18 11/11/18 18:59 06:59 18:59 Intake Total 125 800 Output Total 1100 Balance 125 -300 Weight 110.024 kg Intake: Oral 125 800 Output: Urine 1100 Void 1100 Other: Voiding Method Incontinent Urinal # Unmeasured Voids Void 3 Bowel Movement Yes: 2 Yes # Bowel Movements 2 1 Gen: NAD at rest Heart: RRR Lung: decreased breath sounds at the bases, no wheezing Abd: obese, soft, nontender Ext: no edema CBC, BMP 11/11/18 05:45 11/11/18 08:45 ASSESSMENT AND PLAN: Acute on Chronic Hypoxic and Hypercapneic Respiratory Failure improving Acute on Chronic Systolic Heart Failure r/o Acute COPD Exacerbation Interstitial Lung Disease Pulmonary HTN Atrial Fibrillation CAD s/p CABG Acute on Chronic Renal Failure JUAN - continue lasix per cardiology - monitor urine output, creatinine - can change steroids to PO prednisone and complete 5 days total - inhaled bronchodilators - rate control - continue anticoagulation - BiPAP at night and as needed during day - O2 to keep SpO2 88-92% - can monitor on floor - d/c planning - physical therapy Gerardo Pablo Pulm/Critical Care FLIGHT OPERATIONS MANAGER
[2018-11-11] MEDS ORDERED: ALBUTEROL SO4 0.5 % INH SOLN 2.5 MG/0.5 ML VIAL.NEB. NEB PRN (09:51)
--- NOTE | 2018-11-11 11:11 | PN ---
Progress Note (short form) - Note Progress Note: s: no chest pain, palps, dizziness. dyspnea improving. Current Medications Acetaminophen (Tylenol -) 650 mg PO Q6H PRN PRN Reason: HEADACHE Last Admin: 11/10/18 21:34 Dose: 650 mg Albuterol Sulfate (Ventolin 0.5% -) 1 amp NEB Q4H PRN PRN Reason: SHORT OF BREATH/WHEEZING Apixaban (Eliquis -) 2.5 mg PO BID [facility] Last Admin: 11/11/18 09:47 Dose: 2.5 mg Aspirin (Asa -) 81 mg PO DAILY [facility] Last Admin: 11/11/18 09:47 Dose: 81 mg Bisacodyl (Dulcolax Suppository -) 10 mg [place] DAILY PRN PRN Reason: CONSTIPATION Colchicine (Colcrys) 0.6 mg PO BID [facility] Last Admin: 11/11/18 09:47 Dose: 0.6 mg Febuxostat (Uloric -) 40 mg PO DAILY [facility] Last Admin: 11/11/18 09:48 Dose: 40 mg Furosemide (Lasix Injection -) 100 mg IVPB BID@0600,1400 [facility] Last Admin: 11/10/18 17:06 Dose: Not Given Insulin Aspart (Novolog Vial Sliding Scale -) 0 vial SQ ACHS [facility]; Protocol Last Admin: 11/11/18 06:39 Dose: 4 units Insulin Detemir (Levemir Vial) 5 units SQ BID [facility] Ipratropium [place] (Atrovent 0.02% Nebulizer -) 1 amp NEB RQID [facility] Last Admin: 11/11/18 08:00 Dose: 1 amp Levothyroxine Sodium (Synthroid -) 50 mcg PO DAILY@0700 [facility] Last Admin: 11/11/18 06:39 Dose: 50 mcg Metoprolol Succinate (Toprol Xl -) 50 mg PO BID [facility] Last Admin: 11/11/18 09:47 Dose: 50 mg Non-Formulary Medication (Linaclotide [Linzess]) 290 mcg PO DAILY [facility] Pantoprazole Sodium (Protonix Iv) 40 mg IVPUSH DAILY [facility] Last Admin: 11/11/18 09:47 Dose: 40 mg Polyethylene Glycol (Miralax (For Daily Use) -) 17 gm PO BID [facility] Last Admin: 11/11/18 09:47 Dose: 17 gm Prednisone (Deltasone -) 40 mg PO DAILY [facility] Vital Signs Period Temp Pulse Resp BP Sys/Junior Pulse Ox Last 24 Hr 98.3 F-98.6 F 68-93 20-25 131-141/70-112 98-99 Constitutional: Yes: No Distress, Calm Eyes: No: Sclera Icterus HENT: No: Nasal Congestion Cardiovascular: Yes: Regular Rate and Rhythm, S1, S2, Other (PMI non diplaced). No: JVD (prohibitively tds exam), Gallop, Murmur Respiratory: Yes: CTA Bilaterally. No: Accessory Muscle Use, Rales, Wheezes Gastrointestinal: Yes: Normal Bowel Sounds, Soft. No: Tenderness Musculoskeletal: Yes: Other (No kyphosis) Extremities: No: Cyanosis Edema: No Integumentary: No: Jaundice Neurological: Yes: Alert, Oriented (x3) Psychiatric: No: Agitated Assessment/Plan Echo 04/2018: EF 45%, mod MR/TR, at least mild , moderate to severe PHTN Nuclear stress 2017: Pharm: small inferolat infarct, mild arlin-infarct ischemia , Overall EF 35-40% CXR: "vs prior, again noted is...congestive changes" ECG: afib, nonsp TWA lateral leads--no change vs prior tele: afib, HR controlled IMP: -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 (home regimen: torsemide 100 bid, spironolactone 25, metopr. no BETTY/ARB due to CKD) -Chronic respiratory failure -Asbestos lung dz/ ILD, on home O2. 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 required lasix 100 iv bid diuresis then. -sob improving with lasix 100 mg IV BID, continue. daily chem7, wts. Cr decreasing -continued NIPPV, suppl O2 per pmd, hospitalist -per Dr. Curiel: given the extremely low risk of cardiomems device (essentially risk of a routine RHC), and the hi risk of permanent worsening of renal fxn with recurrent CHF episodes or with overdiuresis in pt with extremely limited ability to assess volume status on clinical grounds, will strongly rec they continue to discuss this possibility with dr dumont (not an option until he is well diuresed and stable) -tele monitoring
--- NOTE | 2018-11-11 11:29 | PN ---
Progress Note, Physician History of Present Illness: stable no new issues - Current Medication List Current Medications: Active Medications Acetaminophen (Tylenol -) 650 mg PO Q6H PRN PRN Reason: HEADACHE Last Admin: 11/10/18 21:34 Dose: 650 mg Albuterol Sulfate (Ventolin 0.5% -) 1 amp NEB Q4H PRN PRN Reason: SHORT OF BREATH/WHEEZING Apixaban (Eliquis -) 2.5 mg PO BID [facility] Last Admin: 11/11/18 09:47 Dose: 2.5 mg Aspirin (Asa -) 81 mg PO DAILY [facility] Last Admin: 11/11/18 09:47 Dose: 81 mg Bisacodyl (Dulcolax Suppository -) 10 mg [place] DAILY PRN PRN Reason: CONSTIPATION Colchicine (Colcrys) 0.6 mg PO BID [facility] Last Admin: 11/11/18 09:47 Dose: 0.6 mg Febuxostat (Uloric -) 40 mg PO DAILY [facility] Last Admin: 11/11/18 09:48 Dose: 40 mg Furosemide (Lasix Injection -) 100 mg IVPB BID@0600,1400 [facility] Last Admin: 11/10/18 17:06 Dose: Not Given Insulin Aspart (Novolog Vial Sliding Scale -) 0 vial SQ ACHS [facility]; Protocol Last Admin: 11/11/18 06:39 Dose: 4 units Insulin Detemir (Levemir Vial) 5 units SQ BID [facility] Ipratropium [place] (Atrovent 0.02% Nebulizer -) 1 amp NEB RQID [facility] Last Admin: 11/11/18 08:00 Dose: 1 amp Levothyroxine Sodium (Synthroid -) 50 mcg PO DAILY@0700 [facility] Last Admin: 11/11/18 06:39 Dose: 50 mcg Metoprolol Succinate (Toprol Xl -) 50 mg PO BID [facility] Last Admin: 11/11/18 09:47 Dose: 50 mg Non-Formulary Medication (Linaclotide [Linzess]) 290 mcg PO DAILY [facility] Pantoprazole Sodium (Protonix Iv) 40 mg IVPUSH DAILY [facility] Last Admin: 11/11/18 09:47 Dose: 40 mg Polyethylene Glycol (Miralax (For Daily Use) -) 17 gm PO BID [facility] Last Admin: 11/11/18 09:47 Dose: 17 gm Prednisone (Deltasone -) 40 mg PO DAILY JOE - Objective Vital Signs: Vital Signs Temperature 98.5 F 11/11/18 06:00 Pulse Rate 70 11/11/18 06:00 Respiratory Rate 25 H 11/11/18 06:00 Blood Pressure 137/79 11/11/18 06:00 O2 Sat by Pulse Oximetry (%) 98 11/11/18 09:00 Constitutional: Yes: No Distress, Calm Cardiovascular: Yes: S1, S2 Respiratory: Yes: On BiPap, On Nasal O2 Gastrointestinal: Yes: Normal Bowel Sounds, Soft Musculoskeletal: Yes: WNL Extremities: Yes: WNL Neurological: Yes: Alert, Oriented Psychiatric: Yes: Alert, Oriented Labs: CBC, BMP 11/11/18 05:45 11/11/18 08:45 INR, PTT INR 1.08 (0.83-1.09) 11/04/18 19:55 Assessment/Plan Problem List - Problems (1) Atrial fibrillation Code(s): I48.91 - UNSPECIFIED ATRIAL FIBRILLATION Qualifiers: (2) CHF, acute on chronic Code(s): I50.9 - HEART FAILURE, UNSPECIFIED Qualifiers: (3) COPD (chronic obstructive pulmonary disease) Code(s): J44.9 - CHRONIC OBSTRUCTIVE PULMONARY DISEASE, UNSPECIFIED (4) Hypoxemia Code(s): R09.02 - HYPOXEMIA (5) ASHD (arteriosclerotic heart disease) Code(s): I25.10 - ATHSCL HEART DISEASE OF [place] CORONARY ARTERY W/O ANG PCTRS (6) Acute kidney injury superimposed on CKD Code(s): N17.9 - ACUTE KIDNEY FAILURE, UNSPECIFIED; N18.9 - CHRONIC KIDNEY DISEASE, UNSPECIFIED (7) Acute on chronic respiratory failure with hypoxia and hypercapnia Code(s): J96.21 - ACUTE AND CHRONIC RESPIRATORY FAILURE WITH HYPOXIA; J96.22 - ACUTE AND CHRONIC RESPIRATORY FAILURE WITH HYPERCAPNIA (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 - OTHER SPECIFIED PLEURAL CONDITIONS (9) CAD (coronary artery disease) Code(s): I25.10 - ATHSCL HEART DISEASE OF [place] CORONARY ARTERY W/O ANG PCTRS Qualifiers: Coronary Disease-Associated Artery/Lesion type: bypass graft, autologous artery Associated angina: without angina Qualified Code(s): I25.810 - Atherosclerosis of coronary artery bypass graft(s) without angina pectoris (10) DM type 2 (diabetes mellitus, type 2) Code(s): E11.9 - TYPE 2 DIABETES MELLITUS WITHOUT COMPLICATIONS Qualifiers: Diabetes mellitus mcc insulin use: with terminal supervisor use Chronic kidney disease stage: stage 4 (severe) (11) HTN (hypertension) Code(s): I10 - ESSENTIAL (PRIMARY) HYPERTENSION (12) S/P CABG (coronary artery bypass graft) Code(s): Z95.1 - PRESENCE OF AORTOCORONARY BYPASS GRAFT Assessment/Plan 88 y.o. 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
[2018-11-11] MEDS: ACETAMINOPHEN 325 MG TABLET (FP) PO PRN (11:53)
[2018-11-11] MEDS: INSULIN (LEVEMIR) 100 UNITS/ML UNITS SQ SCH ×2 (12:25→21:17)
[2018-11-11] MEDS: predniSONE 20 MG TABLET (UD) PO SCH (12:31)
--- NOTE | 2018-11-11 18:30 | PN ---
Progress Note, Physician Chief Complaint: feels weak History of Present Illness: [facility] coverage for Dr. 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 Patient recently observed at [facility] on 10/27- for possible seizure and syncope. He presents to the ED on 11/04/18 for shortness of breath for four days.The patient was hypoxic 70-74% at home. On arrival to the ED, the patient was tachypneic with labored breathing and was placed on Bipap. He is in the ICU, appears fatigued. tolerating 4liters of nasal cannula. reports increased weakness. - Current Medication List Current Medications: Active Medications Acetaminophen (Tylenol -) 650 mg PO Q6H PRN PRN Reason: HEADACHE Last Admin: 11/11/18 11:53 Dose: 650 mg Albuterol Sulfate (Ventolin 0.5% -) 1 amp NEB Q4H PRN PRN Reason: SHORT OF BREATH/WHEEZING Apixaban (Eliquis -) 2.5 mg PO BID [facility] Last Admin: 11/11/18 09:47 Dose: 2.5 mg Aspirin (Asa -) 81 mg PO DAILY [facility] Last Admin: 11/11/18 09:47 Dose: 81 mg Bisacodyl (Dulcolax Suppository -) 10 mg [place] DAILY PRN PRN Reason: CONSTIPATION Colchicine (Colcrys) 0.6 mg PO BID [facility] Last Admin: 11/11/18 09:47 Dose: 0.6 mg Febuxostat (Uloric -) 40 mg PO DAILY [facility] Last Admin: 11/11/18 09:48 Dose: 40 mg Furosemide (Lasix Injection -) 100 mg IVPB BID@0600,1400 [facility] Last Admin: 11/10/18 17:06 Dose: Not Given Insulin Aspart (Novolog Vial Sliding Scale -) 0 vial SQ ACHS [facility]; Protocol Last Admin: 11/11/18 17:43 Dose: 6 units Insulin Detemir (Levemir Vial) 5 units SQ BID@0700,2200 [facility] Last Admin: 11/11/18 12:25 Dose: 5 units Ipratropium [place] (Atrovent 0.02% Nebulizer -) 1 amp NEB RQID [facility] Last Admin: 11/11/18 16:38 Dose: 1 amp Levothyroxine Sodium (Synthroid -) 50 mcg PO DAILY@0700 [facility] Last Admin: 11/11/18 06:39 Dose: 50 mcg Metoprolol Succinate (Toprol Xl -) 50 mg PO BID [facility] Last Admin: 11/11/18 09:47 Dose: 50 mg Pantoprazole Sodium (Protonix Iv) 40 mg IVPUSH DAILY [facility] Last Admin: 11/11/18 09:47 Dose: 40 mg Polyethylene Glycol (Miralax (For Daily Use) -) 17 gm PO BID [facility] Last Admin: 11/11/18 09:47 Dose: 17 gm Prednisone (Deltasone -) 40 mg PO DAILY [facility] Last Admin: 11/11/18 12:31 Dose: 40 mg - Objective Vital Signs: Vital Signs Temperature 97.5 F L 11/11/18 16:00 Pulse Rate 86 11/11/18 16:00 Respiratory Rate 20 11/11/18 16:00 Blood Pressure 135/78 11/11/18 16:00 O2 Sat by Pulse Oximetry (%) 94 L 11/11/18 16:38 Constitutional: Yes: Calm Eyes: Yes: WNL HENT: Yes: Atraumatic Neck: Yes: Supple Cardiovascular: Yes: Regular Rate and Rhythm Respiratory: Yes: Accessory Muscle Use, On BiPap (bipap at night), On Nasal O2, Poor Air Entry, SOB Gastrointestinal: Yes: Abdomen, Obese ...Rectal Exam: Yes: Deferred Genitourinary: Yes: WNL Edema: LLE: 1+, RLE: 1+ Integumentary: Yes: WNL Neurological: Yes: Alert, Oriented Psychiatric: Yes: Alert Labs: CBC, BMP 11/11/18 05:45 11/11/18 08:45 INR, PTT INR 1.08 (0.83-1.09) 11/04/18 19:55 Problem List - Problems (1) Acute respiratory failure with hypercapnia Assessment/Plan: On bipap and supplemental oxygen monitor airway switched to prednisone by pulmonary Code(s): J96.02 - ACUTE RESPIRATORY FAILURE WITH HYPERCAPNIA (2) Atrial fibrillation Assessment/Plan: rate controlled. on eliquis Code(s): I48.91 - UNSPECIFIED ATRIAL FIBRILLATION (3) CHF, acute on chronic Assessment/Plan: on lasix 100 mg IV per cardiology, can continue daily weights Code(s): I50.9 - HEART FAILURE, UNSPECIFIED (4) COPD (chronic obstructive pulmonary disease) with acute bronchitis Assessment/Plan: on predisone acute on chronic Code(s): J44.0 - CHRONIC OBSTRUCTIVE PULMON DISEASE W ACUTE LOWER RESP INFCT; J20.9 - ACUTE BRONCHITIS, UNSPECIFIED (5) DM type 2 (diabetes mellitus, type 2) Assessment/Plan: elevated bgms. levemir increased. on steriods Code(s): E11.9 - TYPE 2 DIABETES MELLITUS WITHOUT COMPLICATIONS Qualifiers: Diabetes mellitus care home insulin use: with manager terminal use Chronic kidney disease stage: stage 4 (severe) (6) Prophylactic measure Assessment/Plan: fen PO adequate monitor electrolytes dvt prophy SCDs Code(s): Z29.9 - ENCOUNTER FOR PROPHYLACTIC MEASURES, UNSPECIFIED Visit type - Emergency Visit Emergency Visit: Yes ED Registration Date: 11/04/18 Care time: The patient presented to the Emergency Department on the above date and was hospitalized for further evaluation of their emergent condition. - New Patient This patient is new to me today: No - Critical Care Critical Care patient: Yes Total Critical Care Time (in minutes): 45 Critical Care Statement: The care of this patient involved high complexity decision making to prevent further life threatening deterioration of the patient 's condition and/or to evaluate & treat vital organ system(s) failure or risk of failure.
[2018-11-12] MEDS: LEVOTHYROXINE NA 50 MCG TABLET (FP) PO SCH (06:42)
[2018-11-12] MEDS: INSULIN (LEVEMIR) 100 UNITS/ML UNITS SQ SCH ×2 (06:42→22:06)
[2018-11-12] MEDS: INSULIN SLIDING SCALE (NOVOLOG) 1 VIAL SQ SCH ×4 (06:43→22:09)
[2018-11-12] MEDS: FUROSEMIDE 100 MG/10 ML INJECTABLE VIAL IVPB SCH (06:43)
--- NOTE | 2018-11-12 07:42 | PN ---
Progress Note (short form) - Note Progress Note: PULMONARY/CRITICAL CARE PROGRESS NOTE: SUBJECTIVE: Pt seen and examined in the ICU. Continues to do well. BiPAP overnight. Denies shortness of breath or chest pain. OBJECTIVE: Current Medications Acetaminophen (Tylenol -) 650 mg PO Q6H PRN PRN Reason: HEADACHE Last Admin: 11/11/18 11:53 Dose: 650 mg Albuterol Sulfate (Ventolin 0.5% -) 1 amp NEB Q4H PRN PRN Reason: SHORT OF BREATH/WHEEZING Apixaban (Eliquis -) 2.5 mg PO BID [facility] Last Admin: 11/11/18 21:10 Dose: 2.5 mg Aspirin (Asa -) 81 mg PO DAILY [facility] Last Admin: 11/11/18 09:47 Dose: 81 mg Bisacodyl (Dulcolax Suppository -) 10 mg [place] DAILY PRN PRN Reason: CONSTIPATION Colchicine (Colcrys) 0.6 mg PO BID [facility] Last Admin: 11/11/18 22:02 Dose: 0.6 mg Febuxostat (Uloric -) 40 mg PO DAILY [facility] Last Admin: 11/11/18 09:48 Dose: 40 mg Furosemide (Lasix Injection -) 100 mg IVPB BID@0600,1400 [facility] Last Admin: 11/12/18 06:43 Dose: 100 mg Insulin Aspart (Novolog Vial Sliding Scale -) 0 vial SQ ACHS [facility]; Protocol Last Admin: 11/12/18 06:43 Dose: 8 units Insulin Detemir (Levemir Vial) 5 units SQ BID@0700,2200 [facility] Last Admin: 11/12/18 06:42 Dose: 5 units Ipratropium [place] (Atrovent 0.02% Nebulizer -) 1 amp NEB RQID [facility] Last Admin: 11/11/18 20:30 Dose: 1 amp Levothyroxine Sodium (Synthroid -) 50 mcg PO DAILY@0700 [facility] Last Admin: 11/12/18 06:42 Dose: 50 mcg Metoprolol Succinate (Toprol Xl -) 50 mg PO BID [facility] Last Admin: 11/11/18 21:11 Dose: 50 mg Pantoprazole Sodium (Protonix Iv) 40 mg IVPUSH DAILY [facility] Last Admin: 11/11/18 09:47 Dose: 40 mg Polyethylene Glycol (Miralax (For Daily Use) -) 17 gm PO BID [facility] Last Admin: 11/11/18 21:11 Dose: 17 gm Prednisone (Deltasone -) 40 mg PO DAILY [facility] Last Admin: 11/11/18 12:31 Dose: 40 mg Vital Signs Temp 97.8 F 11/12/18 04:00 Pulse 77 11/12/18 04:00 Resp 21 H 11/12/18 04:00 BP 143/90 11/12/18 04:00 Pulse Ox 98 11/12/18 06:42 Intake & Output 11/11/18 11/12/18 11/12/18 18:59 06:59 18:59 Intake Total 600 480 Output Total 600 Balance 0 480 Weight 112.854 kg Intake: Oral 600 480 Output: Urine 600 Void 600 Other: Voiding Method Urinal Urinal # Unmeasured Voids Void 3 2 Bowel Movement Yes Yes # Bowel Movements 1 2 Weight Measurement Method Built in [facility] Gen: NAD at rest Heart: RRR Lung: decreased breath sounds at the bases, no wheezing Abd: obese, soft, nontender Ext: no edema CBC, BMP 11/11/18 05:45 11/11/18 08:45 ASSESSMENT AND PLAN: Acute on Chronic Hypoxic and Hypercapneic Respiratory Failure improving Acute on Chronic Systolic Heart Failure r/o Acute COPD Exacerbation Interstitial Lung Disease Pulmonary HTN Atrial Fibrillation CAD s/p CABG Acute on Chronic Renal Failure JUAN - continue lasix per cardiology - monitor urine output, creatinine - Prednisone for 5 days total - inhaled bronchodilators - rate control - continue anticoagulation - BiPAP at night and as needed during day - O2 to keep SpO2 88-92% - can monitor on floor - d/c planning - physical therapy Gerardo Pablo Pulm/Critical Care PSYCHIATRIC NURSE
[2018-11-12] MEDS: IPRATROPIUM BR 0.02% 0.5 MG/2.5 ML VIAL.NEB. NEB SCH ×4 (08:33→20:32)
[2018-11-12] MEDS ORDERED: PT OWN MED DRAWER 7, Y5N ONE ×2 (09:16→21:44)
[2018-11-12] MEDS: APIXABAN 2.5 MG TABLET PO SCH ×2 (10:21→22:20)
[2018-11-12] MEDS: ASPIRIN 81 MG CHEWABLE TABLETS PO SCH (10:21)
[2018-11-12] MEDS: COLCHICINE 0.6 MG CAP PO SCH ×2 (10:21→22:20)
[2018-11-12] MEDS: predniSONE 20 MG TABLET (UD) PO SCH (10:21)
[2018-11-12] MEDS: PANTOPRAZOLE SODIUM 40 MG VIAL IVPUSH SCH (10:22)
[2018-11-12] MEDS: POLYETHYLENE GLYCOL 3350 119 GM BTL PO SCH ×2 (10:22→22:20)
[2018-11-12] MEDS: FEBUXOSTAT 40 MG TAB PO SCH (10:23)
--- NOTE | 2018-11-12 10:51 | PN ---
Progress Note, Physician History of Present Illness: stable no new issues - Current Medication List Current Medications: Active Medications Acetaminophen (Tylenol -) 650 mg PO Q6H PRN PRN Reason: HEADACHE Last Admin: 11/11/18 11:53 Dose: 650 mg Albuterol Sulfate (Ventolin 0.5% -) 1 amp NEB Q4H PRN PRN Reason: SHORT OF BREATH/WHEEZING Apixaban (Eliquis -) 2.5 mg PO BID [facility] Last Admin: 11/12/18 10:21 Dose: 2.5 mg Aspirin (Asa -) 81 mg PO DAILY [facility] Last Admin: 11/12/18 10:21 Dose: 81 mg Bisacodyl (Dulcolax Suppository -) 10 mg [place] DAILY PRN PRN Reason: CONSTIPATION Colchicine (Colcrys) 0.6 mg PO BID [facility] Last Admin: 11/12/18 10:21 Dose: 0.6 mg Febuxostat (Uloric -) 40 mg PO DAILY [facility] Last Admin: 11/12/18 10:23 Dose: 40 mg Furosemide (Lasix Injection -) 120 mg IVPB BID@0600,1400 [facility] Insulin Aspart (Novolog Vial Sliding Scale -) 0 vial SQ ACHS [facility]; Protocol Last Admin: 11/12/18 06:43 Dose: 8 units Insulin Detemir (Levemir Vial) 5 units SQ BID@0700,2200 [facility] Last Admin: 11/12/18 06:42 Dose: 5 units Ipratropium [place] (Atrovent 0.02% Nebulizer -) 1 amp NEB RQID [facility] Last Admin: 11/12/18 08:33 Dose: 1 amp Levothyroxine Sodium (Synthroid -) 50 mcg PO DAILY@0700 [facility] Last Admin: 11/12/18 06:42 Dose: 50 mcg Metolazone (Zaroxolyn -) 5 mg PO DAILY [facility] Metoprolol Succinate (Toprol Xl -) 50 mg PO BID [facility] Last Admin: 11/12/18 10:22 Dose: 50 mg Pantoprazole Sodium (Protonix Iv) 40 mg IVPUSH DAILY [facility] Last Admin: 11/12/18 10:22 Dose: 40 mg Polyethylene Glycol (Miralax (For Daily Use) -) 17 gm PO BID [facility] Last Admin: 11/12/18 10:22 Dose: 17 gm Prednisone (Deltasone -) 40 mg PO DAILY [facility] Last Admin: 11/12/18 10:21 Dose: 40 mg - Objective Vital Signs: Vital Signs Temperature 97.8 F 11/12/18 04:00 Pulse Rate 73 11/12/18 08:00 Respiratory Rate 24 H 11/12/18 08:00 Blood Pressure 145/82 11/12/18 08:00 O2 Sat by Pulse Oximetry (%) 98 11/12/18 08:37 Constitutional: Yes: No Distress, Calm Cardiovascular: Yes: S1, S2 Respiratory: Yes: Regular, CTA Bilaterally, On Nasal O2 Gastrointestinal: Yes: Normal Bowel Sounds, Soft Musculoskeletal: Yes: WNL Extremities: Yes: WNL Neurological: Yes: Alert, Oriented Psychiatric: Yes: Alert, Oriented Labs: CBC, BMP 11/11/18 05:45 11/11/18 08:45 INR, PTT INR 1.08 (0.83-1.09) 11/04/18 19:55 Assessment/Plan Problem List - Problems (1) Atrial fibrillation Code(s): I48.91 - UNSPECIFIED ATRIAL FIBRILLATION Qualifiers: (2) CHF, acute on chronic Code(s): I50.9 - HEART FAILURE, UNSPECIFIED Qualifiers: (3) COPD (chronic obstructive pulmonary disease) Code(s): J44.9 - CHRONIC OBSTRUCTIVE PULMONARY DISEASE, UNSPECIFIED (4) Hypoxemia Code(s): R09.02 - HYPOXEMIA (5) ASHD (arteriosclerotic heart disease) Code(s): I25.10 - ATHSCL HEART DISEASE OF [place] CORONARY ARTERY W/O ANG PCTRS (6) Acute kidney injury superimposed on CKD Code(s): N17.9 - ACUTE KIDNEY FAILURE, UNSPECIFIED; N18.9 - CHRONIC KIDNEY DISEASE, UNSPECIFIED (7) Acute on chronic respiratory failure with hypoxia and hypercapnia Code(s): J96.21 - ACUTE AND CHRONIC RESPIRATORY FAILURE WITH HYPOXIA; J96.22 - ACUTE AND CHRONIC RESPIRATORY FAILURE WITH HYPERCAPNIA (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 - OTHER SPECIFIED PLEURAL CONDITIONS (9) CAD (coronary artery disease) Code(s): I25.10 - ATHSCL HEART DISEASE OF [place] CORONARY ARTERY W/O ANG PCTRS Qualifiers: Coronary Disease-Associated Artery/Lesion type: bypass graft, autologous artery Associated angina: without angina Qualified Code(s): I25.810 - Atherosclerosis of coronary artery bypass graft(s) without angina pectoris (10) DM type 2 (diabetes mellitus, type 2) Code(s): E11.9 - TYPE 2 DIABETES MELLITUS WITHOUT COMPLICATIONS Qualifiers: Diabetes mellitus snf insulin use: with ad terminal makeup operator use Chronic kidney disease stage: stage 4 (severe) (11) HTN (hypertension) Code(s): I10 - ESSENTIAL (PRIMARY) HYPERTENSION (12) S/P CABG (coronary artery bypass graft) Code(s): Z95.1 - PRESENCE OF AORTOCORONARY BYPASS GRAFT Assessment/Plan 88 y.o. 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
--- NOTE | 2018-11-12 10:56 | PN ---
Progress Note (short form) - Note Progress Note: s: no chest pain, palps, dizziness. dyspnea worse overnight, was on bipap. feels more short of breath today Current Medications Acetaminophen (Tylenol -) 650 mg PO Q6H PRN PRN Reason: HEADACHE Last Admin: 11/11/18 11:53 Dose: 650 mg Albuterol Sulfate (Ventolin 0.5% -) 1 amp NEB Q4H PRN PRN Reason: SHORT OF BREATH/WHEEZING Apixaban (Eliquis -) 2.5 mg PO BID [facility] Last Admin: 11/12/18 10:21 Dose: 2.5 mg Aspirin (Asa -) 81 mg PO DAILY [facility] Last Admin: 11/12/18 10:21 Dose: 81 mg Bisacodyl (Dulcolax Suppository -) 10 mg [place] DAILY PRN PRN Reason: CONSTIPATION Colchicine (Colcrys) 0.6 mg PO BID [facility] Last Admin: 11/12/18 10:21 Dose: 0.6 mg Febuxostat (Uloric -) 40 mg PO DAILY [facility] Last Admin: 11/12/18 10:23 Dose: 40 mg Furosemide (Lasix Injection -) 120 mg IVPB BID@0600,1400 [facility] Insulin Aspart (Novolog Vial Sliding Scale -) 0 vial SQ ACHS [facility]; Protocol Last Admin: 11/12/18 06:43 Dose: 8 units Insulin Detemir (Levemir Vial) 5 units SQ BID@0700,2200 [facility] Last Admin: 11/12/18 06:42 Dose: 5 units Ipratropium [place] (Atrovent 0.02% Nebulizer -) 1 amp NEB RQID [facility] Last Admin: 11/12/18 08:33 Dose: 1 amp Levothyroxine Sodium (Synthroid -) 50 mcg PO DAILY@0700 [facility] Last Admin: 11/12/18 06:42 Dose: 50 mcg Metolazone (Zaroxolyn -) 5 mg PO DAILY [facility] Metoprolol Succinate (Toprol Xl -) 50 mg PO BID [facility] Last Admin: 11/12/18 10:22 Dose: 50 mg Pantoprazole Sodium (Protonix Iv) 40 mg IVPUSH DAILY [facility] Last Admin: 11/12/18 10:22 Dose: 40 mg Polyethylene Glycol (Miralax (For Daily Use) -) 17 gm PO BID [facility] Last Admin: 11/12/18 10:22 Dose: 17 gm Prednisone (Deltasone -) 40 mg PO DAILY [facility] Last Admin: 11/12/18 10:21 Dose: 40 mg Vital Signs Period Temp Pulse Resp BP Sys/Junior Pulse Ox Last 24 Hr 97.5 F-98 F 69-86 20-28 128-145/61-90 91-98 Constitutional: Yes: No Distress, Calm Eyes: No: Sclera Icterus HENT: No: Nasal Congestion Cardiovascular: Yes: Regular Rate and Rhythm, S1, S2, Other (PMI non diplaced). No: JVD (prohibitively tds exam), Gallop, Murmur Respiratory: Yes: CTA Bilaterally. No: Accessory Muscle Use, Rales, Wheezes Gastrointestinal: Yes: Normal Bowel Sounds, Soft. No: Tenderness Musculoskeletal: Yes: Other (No kyphosis) Extremities: No: Cyanosis Edema: No Integumentary: No: Jaundice Neurological: Yes: Alert, Oriented (x3) Psychiatric: No: Agitated Assessment/Plan Echo 04/2018: EF 45%, mod MR/TR, at least mild , moderate to severe PHTN Nuclear stress 2017: Pharm: small inferolat infarct, mild arlin-infarct ischemia , Overall EF 35-40% CXR: "vs prior, again noted is...congestive changes" ECG: afib, nonsp TWA lateral leads--no change vs prior tele: afib, HR controlled IMP: -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 (home regimen: torsemide 100 bid, spironolactone 25, metopr. no BETTY/ARB due to CKD) -Chronic respiratory failure -Asbestos lung dz/ ILD, on home O2. 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 required lasix 100 iv bid diuresis then. -continued NIPPV, suppl O2 per pmd, hospitalist -per Dr. Curiel: given the extremely low risk of cardiomems device (essentially risk of a routine RHC), and the hi risk of permanent worsening of renal fxn with recurrent CHF episodes or with overdiuresis in pt with extremely limited ability to assess volume status on clinical grounds, will strongly rec they continue to discuss this possibility with dr dumont (not an option until he is well diuresed and stable) -tele monitoring - weight up today, worsening dyspnea improved with Bipap. Cont lasix 100 mg IV BID, add metolazone prior to pm dose, d/w critical care
[2018-11-12 11:27] LABS: BASO % 0.6 % (0-2.0); EOS % 0.9 % (0-4.5); HEMOGLOBIN 12.5 GM/dL (11.7-16.9); LYMPH % 10.7 % (8-40); MCH 29.8 pg (25.7-33.7); MCHC 32.9 g/dl (32.0-35.9); MEAN CELL VOLUME 90.6 fl (80-96); MEAN PLT VOLUME 8.5 fl (7.5-11.1); MONO % 11.7 % (3.8-10.2); NEUT % 76.1 % (42.8-82.8); PLATELET COUNT 197 K/MM3 (134-434); WHITE BLOOD COUNT 7.7 K/mm3 (4.0-10.0)
[2018-11-12 12:00] LABS: ALBUMIN 3.2 g/dl (3.4-5.0); BILIRUBIN,TOTAL 0.4 mg/dL (0.2-1); BLOOD UREA NITROGEN 65.9 mg/dL (7-18); CALCIUM 8.7 mg/dL (8.5-10.1); CREATININE 1.6 mg/dL (0.55-1.3); MAGNESIUM 2.9 mg/dL (1.8-2.4); POTASSIUM 4.7 mmol/L (3.5-5.1); TOT PROT 6.5 g/dl (6.4-8.2)
[2018-11-12] MEDS: ACETAMINOPHEN 325 MG TABLET (FP) PO PRN (13:00)
[2018-11-12] MEDS: METOLAZONE 5 MG TABLET PO SCH (13:41)
[2018-11-12] MEDS: FUROSEMIDE 40 MG/4 ML INJECTABLE VIAL IVPB SCH (15:35)
--- NOTE | 2018-11-12 15:44 | PN ---
Progress Note, Physician Chief Complaint: feels weak History of Present Illness: [facility] coverage for Dr. 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 Patient recently observed at [facility] on 10/27- for possible seizure and syncope. He presents to the ED on 11/04/18 for shortness of breath for four days.The patient was hypoxic 70-74% at home. On arrival to the ED, the patient was tachypneic with labored breathing and was placed on Bipap. He is in the ICU, appears fatigued. tolerating 4liters of nasal cannula. reports increased weakness. - Current Medication List Current Medications: Active Medications Acetaminophen (Tylenol -) 650 mg PO Q6H PRN PRN Reason: HEADACHE Last Admin: 11/12/18 13:00 Dose: 650 mg Albuterol Sulfate (Ventolin 0.5% -) 1 amp NEB Q4H PRN PRN Reason: SHORT OF BREATH/WHEEZING Apixaban (Eliquis -) 2.5 mg PO BID [facility] Last Admin: 11/12/18 10:21 Dose: 2.5 mg Aspirin (Asa -) 81 mg PO DAILY [facility] Last Admin: 11/12/18 10:21 Dose: 81 mg Bisacodyl (Dulcolax Suppository -) 10 mg [place] DAILY PRN PRN Reason: CONSTIPATION Colchicine (Colcrys) 0.6 mg PO BID [facility] Last Admin: 11/12/18 10:21 Dose: 0.6 mg Febuxostat (Uloric -) 40 mg PO DAILY [facility] Last Admin: 11/12/18 10:23 Dose: 40 mg Furosemide (Lasix Injection -) 120 mg IVPB BID@0600,1400 [facility] Last Admin: 11/12/18 15:35 Dose: 120 mg Insulin Aspart (Novolog Vial Sliding Scale -) 0 vial SQ ACHS [facility]; Protocol Last Admin: 11/12/18 12:21 Dose: 4 units Insulin Detemir (Levemir Vial) 5 units SQ BID@0700,2200 [facility] Last Admin: 11/12/18 06:42 Dose: 5 units Ipratropium [place] (Atrovent 0.02% Nebulizer -) 1 amp NEB RQID [facility] Last Admin: 11/12/18 12:08 Dose: 1 amp Levothyroxine Sodium (Synthroid -) 50 mcg PO DAILY@0700 [facility] Last Admin: 11/12/18 06:42 Dose: 50 mcg Metolazone (Zaroxolyn -) 5 mg PO DAILY@1330 [facility] Last Admin: 11/12/18 13:41 Dose: 5 mg Metoprolol Succinate (Toprol Xl -) 50 mg PO BID [facility] Last Admin: 11/12/18 10:22 Dose: 50 mg Pantoprazole Sodium (Protonix Iv) 40 mg IVPUSH DAILY [facility] Last Admin: 11/12/18 10:22 Dose: 40 mg Polyethylene Glycol (Miralax (For Daily Use) -) 17 gm PO BID [facility] Last Admin: 11/12/18 10:22 Dose: 17 gm Prednisone (Deltasone -) 40 mg PO DAILY [facility] Last Admin: 11/12/18 10:21 Dose: 40 mg - Objective Vital Signs: Vital Signs Temperature 97.9 F 11/12/18 12:00 Pulse Rate 81 11/12/18 12:00 Respiratory Rate 23 H 11/12/18 12:00 Blood Pressure 111/74 11/12/18 12:00 O2 Sat by Pulse Oximetry (%) 93 L 11/12/18 12:08 Constitutional: Yes: Calm Eyes: Yes: WNL HENT: Yes: Atraumatic Neck: Yes: Supple Cardiovascular: Yes: Regular Rate and Rhythm Respiratory: Yes: Regular Gastrointestinal: Yes: Normal Bowel Sounds Genitourinary: Yes: WNL Musculoskeletal: Yes: WNL Extremities: Yes: WNL Labs: CBC, BMP 11/12/18 10:38 11/12/18 10:38 INR, PTT INR 1.08 (0.83-1.09) 11/04/18 19:55 Problem List - Problems (1) Acute respiratory failure with hypercapnia Assessment/Plan: On bipap and supplemental oxygen monitor airway switched to prednisone by pulmonary Code(s): J96.02 - ACUTE RESPIRATORY FAILURE WITH HYPERCAPNIA (2) Atrial fibrillation Assessment/Plan: rate controlled. on eliquis Code(s): I48.91 - UNSPECIFIED ATRIAL FIBRILLATION (3) CHF, acute on chronic Assessment/Plan: on lasix IV/Zaroxolyn per cardiology and pulmonary weight up today, worsening dyspnea improves with Bipap Code(s): I50.9 - HEART FAILURE, UNSPECIFIED (4) COPD (chronic obstructive pulmonary disease) with acute bronchitis Assessment/Plan: on predisone acute on chronic Code(s): J44.0 - CHRONIC OBSTRUCTIVE PULMON DISEASE W ACUTE LOWER RESP INFCT; J20.9 - ACUTE BRONCHITIS, UNSPECIFIED (5) DM type 2 (diabetes mellitus, type 2) Assessment/Plan: elevated bgms. levemir increased. on steriods Code(s): E11.9 - TYPE 2 DIABETES MELLITUS WITHOUT COMPLICATIONS Qualifiers: Diabetes mellitus snf insulin use: with intermediate designer use Chronic kidney disease stage: stage 4 (severe) (6) Prophylactic measure Assessment/Plan: fen PO adequate monitor electrolytes dvt prophy SCDs Code(s): Z29.9 - ENCOUNTER FOR PROPHYLACTIC MEASURES, UNSPECIFIED Visit type - Emergency Visit Emergency Visit: Yes ED Registration Date: 11/04/18 Care time: The patient presented to the Emergency Department on the above date and was hospitalized for further evaluation of their emergent condition. - New Patient This patient is new to me today: No - Critical Care Critical Care patient: No - Discharge Referral Referred to [facility] Med P.C.: No
[2018-11-13] MEDS: FUROSEMIDE 40 MG/4 ML INJECTABLE VIAL IVPB SCH ×2 (05:20→14:00)
[2018-11-13] MEDS: INSULIN (LEVEMIR) 100 UNITS/ML UNITS SQ SCH ×2 (07:00→21:32)
[2018-11-13] MEDS: INSULIN SLIDING SCALE (NOVOLOG) 1 VIAL SQ SCH ×4 (07:00→21:32)
[2018-11-13] MEDS: LEVOTHYROXINE NA 50 MCG TABLET (FP) PO SCH (07:07)
[2018-11-13] MEDS: IPRATROPIUM BR 0.02% 0.5 MG/2.5 ML VIAL.NEB. NEB SCH ×4 (07:30→20:29)
--- NOTE | 2018-11-13 08:38 | PN ---
Progress Note, Physician Chief Complaint: no acute distress TELE: AF, NSVT History of Present Illness: weight down to 243lbs - Current Medication List Current Medications: Active Medications Acetaminophen (Tylenol -) 650 mg PO Q6H PRN PRN Reason: HEADACHE Last Admin: 11/12/18 13:00 Dose: 650 mg Albuterol Sulfate (Ventolin 0.5% -) 1 amp NEB Q4H PRN PRN Reason: SHORT OF BREATH/WHEEZING Apixaban (Eliquis -) 2.5 mg PO BID [facility] Last Admin: 11/12/18 22:20 Dose: 2.5 mg Aspirin (Asa -) 81 mg PO DAILY [facility] Last Admin: 11/12/18 10:21 Dose: 81 mg Bisacodyl (Dulcolax Suppository -) 10 mg [place] DAILY PRN PRN Reason: CONSTIPATION Colchicine (Colcrys) 0.6 mg PO BID [facility] Last Admin: 11/12/18 22:20 Dose: 0.6 mg Febuxostat (Uloric -) 40 mg PO DAILY [facility] Last Admin: 11/12/18 10:23 Dose: 40 mg Furosemide (Lasix Injection -) 120 mg IVPB BID@0600,1400 [facility] Last Admin: 11/13/18 05:20 Dose: 120 mg Insulin Aspart (Novolog Vial Sliding Scale -) 0 vial SQ [facility]; Protocol Last Admin: 11/13/18 07:00 Dose: 6 units Insulin Detemir (Levemir Vial) 5 units SQ BID@0700,2200 [facility] Last Admin: 11/13/18 07:00 Dose: 5 units Ipratropium [place] (Atrovent 0.02% Nebulizer -) 1 amp NEB RQID [facility] Last Admin: 11/12/18 20:32 Dose: 1 amp Levothyroxine Sodium (Synthroid -) 50 mcg PO DAILY@0700 [facility] Last Admin: 11/13/18 07:07 Dose: 50 mcg Metolazone (Zaroxolyn -) 5 mg PO DAILY@1330 [facility] Last Admin: 11/12/18 13:41 Dose: 5 mg Metoprolol Succinate (Toprol Xl -) 50 mg PO BID [facility] Last Admin: 11/12/18 22:21 Dose: 50 mg Pantoprazole Sodium (Protonix Iv) 40 mg IVPUSH DAILY [facility] Last Admin: 11/12/18 10:22 Dose: 40 mg Polyethylene Glycol (Miralax (For Daily Use) -) 17 gm PO BID [facility] Last Admin: 11/12/18 22:20 Dose: 17 gm Prednisone (Deltasone -) 40 mg PO DAILY [facility] Last Admin: 11/12/18 10:21 Dose: 40 mg - Objective Vital Signs: Vital Signs Temperature 97.6 F 11/13/18 04:00 Pulse Rate 72 11/13/18 04:00 Respiratory Rate 11/13/18 04:00 Blood Pressure 138/89 11/13/18 04:00 O2 Sat by Pulse Oximetry (%) 97 11/13/18 06:15 Constitutional: Yes: Calm Cardiovascular: Yes: Pulse Irregular Respiratory: Yes: Other (rhonchi, no wheeze, decreased basilar breath sounds) Gastrointestinal: Yes: Soft, Abdomen, Obese Edema: No Neurological: Yes: Oriented Labs: CBC, BMP 11/12/18 10:38 11/12/18 10:38 INR, PTT INR 1.08 (0.83-1.09) 11/04/18 19:55 Assessment/Plan Echo: Echo 04/2018: EF 45%, mod MR/TR, at least mild , moderate to severe PHTN Nuclear stress 2017: Pharm: small inferolat infarct, mild arlin-infarct ischemia , Overall EF 35-40% CXR: "vs prior, again noted is...congestive changes" ECG: afib, nonsp TWA lateral leads--no change vs prior tele: afib, HR controlled IMP: -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 -continued NIPPV, suppl O2 per pmd, hospitalist -Declined Cardiomems last admissions, will suggest again given the overall low risk nature of implant -tele monitoring
--- NOTE | 2018-11-13 08:54 | PN ---
Progress Note, Physician Chief Complaint: Comfortable in bed, on NC -O2SAT 93% History of Present Illness: Cronic hypercarbic respiratory failure. at night bipap 15/8 Persistent 6.7cm left basilar atelectasis/consolidation. CABG ASHD. DM type on Levemir/Januvia. CRI/ckd 4. 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 Previous Thoracentesis in the past-neg for malignancy. JUAN-at nights using CPAP. Chronic A.Fib. Combined CHF. Gout. Gouty arthritis. Previous rectal surgery for abscess, fistula at [facility]. - Current Medication List Current Medications: Active Medications Acetaminophen (Tylenol -) 650 mg PO Q6H PRN PRN Reason: HEADACHE Last Admin: 11/12/18 13:00 Dose: 650 mg Albuterol Sulfate (Ventolin 0.5% -) 1 amp NEB Q4H PRN PRN Reason: SHORT OF BREATH/WHEEZING Apixaban (Eliquis -) 2.5 mg PO BID [facility] Last Admin: 11/12/18 22:20 Dose: 2.5 mg Aspirin (Asa -) 81 mg PO DAILY [facility] Last Admin: 11/12/18 10:21 Dose: 81 mg Bisacodyl (Dulcolax Suppository -) 10 mg [place] DAILY PRN PRN Reason: CONSTIPATION Colchicine (Colcrys) 0.6 mg PO BID [facility] Last Admin: 11/12/18 22:20 Dose: 0.6 mg Febuxostat (Uloric -) 40 mg PO DAILY [facility] Last Admin: 11/12/18 10:23 Dose: 40 mg Furosemide (Lasix Injection -) 120 mg IVPB BID@0600,1400 [facility] Last Admin: 11/13/18 05:20 Dose: 120 mg Insulin Aspart (Novolog Vial Sliding Scale -) 0 vial SQ ACHS [facility]; Protocol Last Admin: 11/13/18 07:00 Dose: 6 units Insulin Detemir (Levemir Vial) 5 units SQ BID@0700,2200 [facility] Last Admin: 11/13/18 07:00 Dose: 5 units Ipratropium [place] (Atrovent 0.02% Nebulizer -) 1 amp NEB RQID [facility] Last Admin: 11/12/18 20:32 Dose: 1 amp Levothyroxine Sodium (Synthroid -) 50 mcg PO DAILY@0700 [facility] Last Admin: 11/13/18 07:07 Dose: 50 mcg Metolazone (Zaroxolyn -) 5 mg PO DAILY@1330 [facility] Last Admin: 11/12/18 13:41 Dose: 5 mg Metoprolol Succinate (Toprol Xl -) 50 mg PO BID [facility] Last Admin: 11/12/18 22:21 Dose: 50 mg Pantoprazole Sodium (Protonix Iv) 40 mg IVPUSH DAILY [facility] Last Admin: 11/12/18 10:22 Dose: 40 mg Polyethylene Glycol (Miralax (For Daily Use) -) 17 gm PO BID [facility] Last Admin: 11/12/18 22:20 Dose: 17 gm Prednisone (Deltasone -) 20 mg PO DAILY [facility] - Objective Vital Signs: Vital Signs Temperature 97.6 F 11/13/18 04:00 Pulse Rate 72 11/13/18 04:00 Respiratory Rate 19 11/13/18 04:00 Blood Pressure 138/89 11/13/18 04:00 O2 Sat by Pulse Oximetry (%) 97 11/13/18 06:15 Constitutional: Yes: Mild Distress Eyes: Yes: Conjunctiva Clear, EOM Intact HENT: Yes: Atraumatic, Normocephalic Neck: Yes: Supple, Trachea Midline. No: Lymphadenopathy Cardiovascular: Yes: Pulse Irregular, S1, S2. No: JVD Respiratory: Yes: Regular, CTA Bilaterally Gastrointestinal: Yes: Normal Bowel Sounds, Soft, Abdomen, Obese ...Rectal Exam: Yes: Deferred Genitourinary: No: Anuria Breast(s): Yes: WNL Musculoskeletal: Yes: WNL Extremities: No: Amputation, Calf Tenderness, Cold Edema: Yes Edema: LLE: Trace, RLE: Trace Integumentary: Yes: WNL Neurological: Yes: Alert, Oriented. No: Aphasia ...Motor Strength: WNL Psychiatric: Yes: WNL Labs: CBC, BMP 11/12/18 10:38 11/12/18 10:38 INR, PTT INR 1.08 (0.83-1.09) 11/04/18 19:55 Problem List - Problems (1) Acute kidney injury superimposed on CKD Assessment/Plan: Noted BUN/Creat Follow electrolytes Code(s): N17.9 - ACUTE KIDNEY FAILURE, UNSPECIFIED; N18.9 - CHRONIC KIDNEY DISEASE, UNSPECIFIED (2) Acute on chronic respiratory failure with hypoxia and hypercapnia Assessment/Plan: BIPAP, NIV Taper steroids Code(s): J96.21 - ACUTE AND CHRONIC RESPIRATORY FAILURE WITH HYPOXIA; J96.22 - ACUTE AND CHRONIC RESPIRATORY FAILURE WITH HYPERCAPNIA (3) Acute on chronic systolic (congestive) heart failure Assessment/Plan: Lasix IV, Zaroxolyn Code(s): I50.23 - ACUTE ON CHRONIC SYSTOLIC (CONGESTIVE) HEART FAILURE (4) CKD (chronic kidney disease) Assessment/Plan: Follow BUN/Creat Code(s): N18.9 - CHRONIC KIDNEY DISEASE, UNSPECIFIED Qualifiers: Chronic kidney disease stage: stage 3 (moderate) Qualified Code(s): N18.3 - Chronic kidney disease, stage 3 (moderate) (5) Diabetes 1.5, managed as type 2 Assessment/Plan: Follow BGM Noted episodes of low BGM Novolog coverage. Code(s): E13.9 - OTHER SPECIFIED DIABETES MELLITUS WITHOUT COMPLICATIONS (6) DNR (do not resuscitate) discussion Assessment/Plan: DNR/DNI order written after discussion with the family. . Code(s): Z71.89 - OTHER SPECIFIED COUNSELING
[2018-11-13] MEDS: APIXABAN 2.5 MG TABLET PO SCH ×2 (09:40→21:34)
[2018-11-13] MEDS: PANTOPRAZOLE SODIUM 40 MG VIAL IVPUSH SCH (09:40)
[2018-11-13] MEDS: ASPIRIN 81 MG CHEWABLE TABLETS PO SCH (09:40)
[2018-11-13] MEDS: predniSONE 20 MG TABLET (UD) PO SCH (09:41)
[2018-11-13] MEDS ORDERED: PT OWN MED DRAWER 7, Y5N ONE (09:51)
[2018-11-13] MEDS: FEBUXOSTAT 40 MG TAB PO SCH (09:54)
[2018-11-13] MEDS: COLCHICINE 0.6 MG CAP PO SCH ×2 (09:58→21:34)
--- NOTE | 2018-11-13 10:43 | PN ---
Progress Note, Physician History of Present Illness: stable breathing better on nasal canula - Current Medication List Current Medications: Active Medications Acetaminophen (Tylenol -) 650 mg PO Q6H PRN PRN Reason: HEADACHE Last Admin: 11/12/18 13:00 Dose: 650 mg Albuterol Sulfate (Ventolin 0.5% -) 1 amp NEB Q4H PRN PRN Reason: SHORT OF BREATH/WHEEZING Apixaban (Eliquis -) 2.5 mg PO BID [facility] Last Admin: 11/13/18 09:40 Dose: 2.5 mg Aspirin (Asa -) 81 mg PO DAILY [facility] Last Admin: 11/13/18 09:40 Dose: 81 mg Bisacodyl (Dulcolax Suppository -) 10 mg [place] DAILY PRN PRN Reason: CONSTIPATION Colchicine (Colcrys) 0.6 mg PO BID [facility] Last Admin: 11/13/18 09:58 Dose: 0.6 mg Febuxostat (Uloric -) 40 mg PO DAILY [facility] Last Admin: 11/13/18 09:54 Dose: 40 mg Furosemide (Lasix Injection -) 120 mg IVPB BID@0600,1400 [facility] Last Admin: 11/13/18 05:20 Dose: 120 mg Insulin Aspart (Novolog Vial Sliding Scale -) 0 vial SQ [facility]; Protocol Last Admin: 11/13/18 07:00 Dose: 6 units Insulin Detemir (Levemir Vial) 5 units SQ BID@0700,2200 [facility] Last Admin: 11/13/18 07:00 Dose: 5 units Ipratropium [place] (Atrovent 0.02% Nebulizer -) 1 amp NEB RQID [facility] Last Admin: 11/13/18 07:30 Dose: 1 amp Levothyroxine Sodium (Synthroid -) 50 mcg PO DAILY@0700 [facility] Last Admin: 11/13/18 07:07 Dose: 50 mcg Metolazone (Zaroxolyn -) 5 mg PO DAILY@1330 [facility] Last Admin: 11/12/18 13:41 Dose: 5 mg Metoprolol Succinate (Toprol Xl -) 50 mg PO BID [facility] Last Admin: 11/13/18 09:41 Dose: 50 mg Pantoprazole Sodium (Protonix Iv) 40 mg IVPUSH DAILY [facility] Last Admin: 11/13/18 09:40 Dose: 40 mg Polyethylene Glycol (Miralax (For Daily Use) -) 17 gm PO BID [facility] Last Admin: 11/12/18 22:20 Dose: 17 gm Prednisone (Deltasone -) 20 mg PO DAILY [facility] Last Admin: 11/13/18 09:41 Dose: 20 mg - Objective Vital Signs: Vital Signs Temperature 97.6 F 11/13/18 04:00 Pulse Rate 72 11/13/18 04:00 Respiratory Rate 19 11/13/18 04:00 Blood Pressure 138/89 11/13/18 04:00 O2 Sat by Pulse Oximetry (%) 97 11/13/18 06:15 Constitutional: Yes: No Distress, Calm Cardiovascular: Yes: S1, S2 Respiratory: Yes: On Nasal O2, Poor Air Entry Gastrointestinal: Yes: Normal Bowel Sounds, Soft Musculoskeletal: Yes: WNL Extremities: Yes: WNL Neurological: Yes: Alert, Oriented Psychiatric: Yes: Alert, Oriented Labs: CBC, BMP 11/12/18 10:38 11/12/18 10:38 INR, PTT INR 1.08 (0.83-1.09) 11/04/18 19:55 Assessment/Plan Problem List - Problems (1) Atrial fibrillation Code(s): I48.91 - UNSPECIFIED ATRIAL FIBRILLATION Qualifiers: (2) CHF, acute on chronic Code(s): I50.9 - HEART FAILURE, UNSPECIFIED Qualifiers: (3) COPD (chronic obstructive pulmonary disease) Code(s): J44.9 - CHRONIC OBSTRUCTIVE PULMONARY DISEASE, UNSPECIFIED (4) Hypoxemia Code(s): R09.02 - HYPOXEMIA (5) ASHD (arteriosclerotic heart disease) Code(s): I25.10 - ATHSCL HEART DISEASE OF [place] CORONARY ARTERY W/O ANG PCTRS (6) Acute kidney injury superimposed on CKD Code(s): N17.9 - ACUTE KIDNEY FAILURE, UNSPECIFIED; N18.9 - CHRONIC KIDNEY DISEASE, UNSPECIFIED (7) Acute on chronic respiratory failure with hypoxia and hypercapnia Code(s): J96.21 - ACUTE AND CHRONIC RESPIRATORY FAILURE WITH HYPOXIA; J96.22 - ACUTE AND CHRONIC RESPIRATORY FAILURE WITH HYPERCAPNIA (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 - OTHER SPECIFIED PLEURAL CONDITIONS (9) CAD (coronary artery disease) Code(s): I25.10 - ATHSCL HEART DISEASE OF [place] CORONARY ARTERY W/O ANG PCTRS Qualifiers: Coronary Disease-Associated Artery/Lesion type: bypass graft, autologous artery Associated angina: without angina Qualified Code(s): I25.810 - Atherosclerosis of coronary artery bypass graft(s) without angina pectoris (10) DM type 2 (diabetes mellitus, type 2) Code(s): E11.9 - TYPE 2 DIABETES MELLITUS WITHOUT COMPLICATIONS Qualifiers: Diabetes mellitus prison insulin use: with prison use Chronic kidney disease stage: stage 4 (severe) (11) HTN (hypertension) Code(s): I10 - ESSENTIAL (PRIMARY) HYPERTENSION (12) S/P CABG (coronary artery bypass graft) Code(s): Z95.1 - PRESENCE OF AORTOCORONARY BYPASS GRAFT Assessment/Plan 88 y.o. 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
[2018-11-13 11:53] LABS: ALBUMIN 3.3 g/dl (3.4-5.0); BILIRUBIN,TOTAL 0.6 mg/dL (0.2-1); CALCIUM 8.6 mg/dL (8.5-10.1); CREATININE 1.7 mg/dL (0.55-1.3); MAGNESIUM 2.5 mg/dL (1.8-2.4); POTASSIUM 4.2 mmol/L (3.5-5.1); TOT PROT 6.5 g/dl (6.4-8.2)
[2018-11-13] MEDS: POLYETHYLENE GLYCOL 3350 119 GM BTL PO SCH ×2 (11:56→21:35)
[2018-11-13 12:14] LABS: BASO % 0.6 % (0-2.0); HEMATOCRIT 41.3 % (35.4-49); HEMOGLOBIN 13.4 GM/dL (11.7-16.9); LYMPH % 13.3 % (8-40); MCH 29.4 pg (25.7-33.7); MCHC 32.5 g/dl (32.0-35.9); MEAN CELL VOLUME 90.4 fl (80-96); MEAN PLT VOLUME 8.6 fl (7.5-11.1); MONO % 10.8 % (3.8-10.2); NEUT % 73.3 % (42.8-82.8); PLATELET COUNT 222 K/MM3 (134-434); RBC 4.57 M/mm3 (4.00-5.60); RDW 18.1 % (11.9-15.9); WHITE BLOOD COUNT 8.9 K/mm3 (4.0-10.0)
--- NOTE | 2018-11-13 12:28 | PN ---
Teaching Attending Note Name of Resident: Odilon Lambert ATTENDING PHYSICIAN STATEMENT I saw and evaluated the patient. I reviewed the resident's note and discussed the case with the resident. I agree with the resident's findings and plan as documented. SUBJECTIVE: Pt seen and examined in the ICU. Denies shortness of breath or chest pain. Used BiPAP overnight. OBJECTIVE: Vital Signs Period Temp Pulse Resp BP Sys/Junior Pulse Ox Last 24 Hr 97.5 F-98.3 F 72-91 18-23 138-148/76-90 90-97 Intake & Output 11/10/18 11/11/18 11/12/18 11/13/18 23:59 23:59 23:59 23:59 Intake Total 1325 1440 1420 350 Output Total 700 1000 500 Balance 625 440 920 350 Weight 111.221 kg 110.024 kg 112.854 kg 110.268 kg Gen: NAD at rest Heart: RRR Lung: decreased breath sounds at the bases Abd: soft, nontender Ext: no edema CBC, BMP 11/13/18 11:00 11/13/18 11:00 Active Medications Acetaminophen (Tylenol -) 650 mg PO Q6H PRN PRN Reason: HEADACHE Last Admin: 11/12/18 13:00 Dose: 650 mg Albuterol Sulfate (Ventolin 0.5% -) 1 amp NEB Q4H PRN PRN Reason: SHORT OF BREATH/WHEEZING Apixaban (Eliquis -) 2.5 mg PO BID [facility] Last Admin: 11/13/18 09:40 Dose: 2.5 mg Aspirin (Asa -) 81 mg PO DAILY [facility] Last Admin: 11/13/18 09:40 Dose: 81 mg Bisacodyl (Dulcolax Suppository -) 10 mg [place] DAILY PRN PRN Reason: CONSTIPATION Colchicine (Colcrys) 0.6 mg PO BID [facility] Last Admin: 11/13/18 09:58 Dose: 0.6 mg Febuxostat (Uloric -) 40 mg PO DAILY [facility] Last Admin: 11/13/18 09:54 Dose: 40 mg Furosemide (Lasix Injection -) 120 mg IVPB BID@0600,1400 [facility] Last Admin: 11/13/18 05:20 Dose: 120 mg Insulin Aspart (Novolog Vial Sliding Scale -) 0 vial SQ ACHS [facility]; Protocol Last Admin: 11/13/18 12:02 Dose: 6 units Insulin Detemir (Levemir Vial) 5 units SQ BID@0700,2200 [facility] Last Admin: 11/13/18 07:00 Dose: 5 units Ipratropium [place] (Atrovent 0.02% Nebulizer -) 1 amp NEB RQID [facility] Last Admin: 11/13/18 11:35 Dose: 1 amp Levothyroxine Sodium (Synthroid -) 50 mcg PO DAILY@0700 [facility] Last Admin: 11/13/18 07:07 Dose: 50 mcg Metolazone (Zaroxolyn -) 5 mg PO DAILY@1330 [facility] Last Admin: 11/12/18 13:41 Dose: 5 mg Metoprolol Succinate (Toprol Xl -) 50 mg PO BID [facility] Last Admin: 11/13/18 09:41 Dose: 50 mg Pantoprazole Sodium (Protonix Iv) 40 mg IVPUSH DAILY [facility] Last Admin: 11/13/18 09:40 Dose: 40 mg Polyethylene Glycol (Miralax (For Daily Use) -) 17 gm PO BID [facility] Last Admin: 11/13/18 11:56 Dose: Not Given Prednisone (Deltasone -) 20 mg PO DAILY [facility] Last Admin: 11/13/18 09:41 Dose: 20 mg ASSESSMENT AND PLAN: Acute on Chronic Hypoxic and Hypercapneic Respiratory Failure improving Acute on Chronic Systolic Heart Failure r/o Acute COPD Exacerbation Interstitial Lung Disease Pulmonary HTN Atrial Fibrillation CAD s/p CABG Acute on Chronic Renal Failure JUAN - continue lasix per cardiology - monitor urine output, creatinine - taper off steroids - inhaled bronchodilators - rate control - continue anticoagulation - BiPAP at night and as needed during day - O2 to keep SpO2 88-92% - can monitor on floor - d/c planning
--- NOTE | 2018-11-13 12:41 | PN ---
Physical Exam: SUBJECTIVE: Patient seen and examined at bedside. No acute events overnight. No complaints today. Breathing well, saturating well on 3L NC. BiPap o/n. Up for transfer to med/surg OBJECTIVE: Vital Signs Period Temp Pulse Resp BP Sys/Junior Pulse Ox Last 24 Hr 97.5 F-98.3 F 72-91 18-23 138-148/76-90 90-97 GENERAL: Awake, alert, oriented x3. NAD. HEAD: NC/AT EYES: EOMI, sclera anicteric, No ptosis. ENT: Ears normal, nares patent NECK: Trachea midline, full range of motion, supple. LUNGS: CTAB, no wheezes, no crackles, no accessory muscle use. HEART: S1/S2, RRR, no mrg ABDOMEN: soft, ndnt, +BS, no masses NEUROLOGICAL: Normal speech, gait not observed. PSYCH: Normal mood, normal affect. SKIN: Warm, dry, normal turgor Laboratory Results - last 24 hr 11/12/18 11/12/18 11/13/18 15:56 22:03 06:55 WBC RBC Hgb Hct MCV MCH MCHC RDW Plt Count MPV Absolute Neuts (auto) Neutrophils % Lymphocytes % Monocytes % Eosinophils % Basophils % Nucleated RBC % Sodium Potassium Chloride Carbon Dioxide Anion Gap BUN Creatinine Est GFR (CKD-EPI)AfAm Est GFR (CKD-EPI)NonAf POC Glucometer 332 456 263 Random Glucose Calcium Magnesium Total Bilirubin AST ALT Alkaline Phosphatase Total Protein Albumin 11/13/18 11/13/18 11/13/18 11:00 11:00 11:58 WBC 8.9 RBC 4.57 Hgb 13.4 Hct 41.3 MCV 90.4 MCH 29.4 MCHC 32.5 RDW 18.1 H Plt Count 222 MPV 8.6 Absolute Neuts (auto) 6.6 Neutrophils % 73.3 Lymphocytes % 13.3 D Monocytes % 10.8 H Eosinophils % 2.0 D Basophils % 0.6 Nucleated RBC % 0 Sodium 133 L Potassium 4.2 Chloride 83 L Carbon Dioxide 44 H Anion Gap 6 L BUN 71.0 H Creatinine 1.7 H Est GFR (CKD-EPI)AfAm 41.11 Est GFR (CKD-EPI)NonAf 35.47 POC Glucometer 256 Random Glucose 259 H Calcium 8.6 Magnesium 2.5 H Total Bilirubin 0.6 AST 32 ALT 60 Alkaline Phosphatase 101 Total Protein 6.5 Albumin 3.3 L Active Medications Generic Name Dose Route Start Last Admin Trade Name Freq PRN Reason Stop Dose Admin Acetaminophen 650 mg 11/08/18 11:28 11/12/18 13:00 Tylenol - PO 650 mg Q6H PRN Administration HEADACHE Albuterol Sulfate 1 amp 11/11/18 09:51 Ventolin 0.5% - NEB Q4H PRN SHORT OF BREATH/WHEEZING Apixaban 2.5 mg 11/05/18 01:00 11/13/18 09:40 Eliquis - PO 2.5 mg BID JOE Administration Aspirin 81 mg 11/05/18 10:00 11/13/18 09:40 Asa - PO 81 mg DAILY JOE Administration Bisacodyl 10 mg 11/08/18 08:37 Dulcolax Suppository - [place] DAILY PRN CONSTIPATION Colchicine 0.6 mg 11/05/18 10:00 11/13/18 09:58 Colcrys PO 0.6 mg BID JOE Administration Febuxostat 40 mg 11/05/18 10:00 11/13/18 09:54 Uloric - PO 40 mg DAILY JOE Administration Furosemide 120 mg 11/12/18 10:41 11/13/18 05:20 Lasix Injection - IVPB 120 mg BID@0600,1400 JOE Administration Insulin Aspart 0 vial 11/04/18 22:00 11/13/18 12:02 Novolog Vial Sliding Scale - SQ 6 units ACHS JOE Administration Protocol Insulin Detemir 5 units 11/11/18 12:00 11/13/18 07:00 Levemir Vial SQ 5 units BID@0700,2200 JOE Administration Ipratropium [place] 1 amp 11/07/18 12:00 11/13/18 11:35 Atrovent 0.02% Nebulizer - NEB 1 amp RQID JOE Administration Levothyroxine Sodium 50 mcg 11/05/18 08:05 11/13/18 07:07 Synthroid - PO 50 mcg DAILY@0700 JOE Administration Metolazone 5 mg 11/12/18 13:30 11/12/18 13:41 Zaroxolyn - PO 5 mg DAILY@1330 JOE Administration Metoprolol Succinate 50 mg 11/05/18 10:00 11/13/18 09:41 Toprol Xl - PO 50 mg BID JOE Administration Pantoprazole Sodium 40 mg 11/07/18 10:00 11/13/18 09:40 Protonix Iv IVPUSH 40 mg DAILY JOE Administration Polyethylene Glycol 17 gm 11/08/18 10:00 11/13/18 11:56 Miralax (For Daily Use) - PO Not Given BID JOE Prednisone 20 mg 11/13/18 08:48 11/13/18 09:41 Deltasone - PO 20 mg DAILY JOE Administration ASSESSMENT/PLAN: 88M w extensive cardiac and pulm pmh in ICU for Acute on Chronic Hypoxic, Hypercapneic Respiratory Failure, and Acute on Chronic Systolic Heart Failure. Patient doing well, saturating well on 4L NC. VSS, benign exam. CV: Acute on Chronic Systolic Heart Failure - c/w ASA, metolazone, toprol - cardiology note appreciated; c/w IV lasix Pulm: Acute on Chronic Hypoxic, Hypercapneic Respiratory Failure - likely excerbation of existing copd vs. restrictive lung disease vs. CHF - improved - saturating well on 4L NC - c/w nebs as needed - c/w FEN/GI: - tolerating PO - PPI Endo: IDDM - Levemir 5U - AISS Gout - c/w uloric, colchicine Hypothyroidism - c/w synthroid DVT PPX: Eliquis Dispo: - Transfer to med/surg Visit type - Emergency Visit Emergency Visit: No - New Patient This patient is new to me today: Yes Date on this admission: 11/13/18 - Critical Care Critical Care patient: Yes Total Critical Care Time (in minutes): 30 Critical Care Statement: The care of this patient involved high complexity decision making to prevent further life threatening deterioration of the patient 's condition and/or to evaluate & treat vital organ system(s) failure or risk of failure.
[2018-11-13] MEDS: METOLAZONE 5 MG TABLET PO SCH (14:00)
[2018-11-13 15:51] LABS: ANISOCYTOSIS 0; MACROCYTOSIS 0; PLATELET ESTIMATE NORMAL
[2018-11-14] MEDS: FUROSEMIDE 40 MG/4 ML INJECTABLE VIAL IVPB SCH ×2 (05:42→14:50)
[2018-11-14] MEDS: INSULIN SLIDING SCALE (NOVOLOG) 1 VIAL SQ SCH ×4 (06:10→21:31)
[2018-11-14] MEDS: INSULIN (LEVEMIR) 100 UNITS/ML UNITS SQ SCH ×2 (06:10→21:31)
[2018-11-14] MEDS: LEVOTHYROXINE NA 50 MCG TABLET (FP) PO SCH (06:21)
[2018-11-14 06:24] LABS: BASO % 0.9 % (0-2.0); EOS % 2.4 % (0-4.5); HEMATOCRIT 40.3 % (35.4-49); HEMOGLOBIN 13.6 GM/dL (11.7-16.9); LYMPH % 16.5 % (8-40); MCH 29.7 pg (25.7-33.7); MCHC 33.7 g/dl (32.0-35.9); MEAN CELL VOLUME 88.3 fl (80-96); MEAN PLT VOLUME 8.4 fl (7.5-11.1); NEUT % 69.2 % (42.8-82.8); PLATELET COUNT 233 K/MM3 (134-434); RBC 4.57 M/mm3 (4.00-5.60); RDW 17.9 % (11.9-15.9); WHITE BLOOD COUNT 8.9 K/mm3 (4.0-10.0)
[2018-11-14 06:53] LABS: ALBUMIN 3.1 g/dl (3.4-5.0); BILIRUBIN,TOTAL 0.5 mg/dL (0.2-1); BLOOD UREA NITROGEN 76.3 mg/dL (7-18); CALCIUM 8.5 mg/dL (8.5-10.1); CREATININE 1.8 mg/dL (0.55-1.3); TOT PROT 6.4 g/dl (6.4-8.2)
[2018-11-14] MEDS: IPRATROPIUM BR 0.02% 0.5 MG/2.5 ML VIAL.NEB. NEB SCH ×4 (09:32→19:57)
[2018-11-14] MEDS: APIXABAN 2.5 MG TABLET PO SCH ×2 (10:43→21:30)
[2018-11-14] MEDS: predniSONE 20 MG TABLET (UD) PO SCH (10:43)
[2018-11-14] MEDS: ACETAMINOPHEN 325 MG TABLET (FP) PO PRN (10:43)
[2018-11-14] MEDS: ASPIRIN 81 MG CHEWABLE TABLETS PO SCH (10:44)
[2018-11-14] MEDS: PANTOPRAZOLE SODIUM 40 MG VIAL IVPUSH SCH (10:44)
[2018-11-14] MEDS: POLYETHYLENE GLYCOL 3350 119 GM BTL PO SCH ×2 (10:45→21:31)
[2018-11-14] MEDS ORDERED: PT OWN MED DRAWER 7, Y5N ONE ×2 (10:55→21:24)
[2018-11-14] MEDS: FEBUXOSTAT 40 MG TAB PO SCH (10:59)
[2018-11-14] MEDS: COLCHICINE 0.6 MG CAP PO SCH (10:59)
--- NOTE | 2018-11-14 11:11 | PN ---
Progress Note (short form) - Note Progress Note: no chest pain, palps, dyspnea Current Medications Acetaminophen (Tylenol -) 650 mg PO Q6H PRN PRN Reason: HEADACHE Last Admin: 11/14/18 10:43 Dose: 650 mg Albuterol Sulfate (Ventolin 0.5% -) 1 amp NEB Q4H PRN PRN Reason: SHORT OF BREATH/WHEEZING Apixaban (Eliquis -) 2.5 mg PO BID [facility] Last Admin: 11/14/18 10:43 Dose: 2.5 mg Aspirin (Asa -) 81 mg PO DAILY [facility] Last Admin: 11/14/18 10:44 Dose: 81 mg Bisacodyl (Dulcolax Suppository -) 10 mg [place] DAILY PRN PRN Reason: CONSTIPATION Colchicine (Colcrys) 0.6 mg PO BID [facility] Last Admin: 11/14/18 10:59 Dose: 0.6 mg Febuxostat (Uloric -) 40 mg PO DAILY [facility] Last Admin: 11/14/18 10:59 Dose: 40 mg Furosemide (Lasix Injection -) 120 mg IVPB BID@0600,1400 [facility] Last Admin: 11/14/18 05:42 Dose: 120 mg Insulin Aspart (Novolog Vial Sliding Scale -) 0 vial SQ ACHS [facility]; Protocol Last Admin: 11/14/18 06:10 Dose: 6 units Insulin Detemir (Levemir Vial) 5 units SQ BID@0700,2200 [facility] Last Admin: 11/14/18 06:10 Dose: 5 units Ipratropium [place] (Atrovent 0.02% Nebulizer -) 1 amp NEB RQID [facility] Last Admin: 11/14/18 09:32 Dose: 1 amp Levothyroxine Sodium (Synthroid -) 50 mcg PO DAILY@0700 [facility] Last Admin: 11/14/18 06:21 Dose: 50 mcg Metolazone (Zaroxolyn -) 5 mg PO DAILY@1330 [facility] Last Admin: 11/13/18 14:00 Dose: 5 mg Metoprolol Succinate (Toprol Xl -) 50 mg PO BID [facility] Last Admin: 11/14/18 10:46 Dose: 50 mg Pantoprazole Sodium (Protonix Iv) 40 mg IVPUSH DAILY [facility] Last Admin: 11/14/18 10:44 Dose: 40 mg Polyethylene Glycol (Miralax (For Daily Use) -) 17 gm PO BID [facility] Last Admin: 11/14/18 10:45 Dose: 17 gm Vital Signs Period Temp Pulse Resp BP Sys/Junior Pulse Ox Last 24 Hr 97.5 F-97.8 F 68-90 17-23 96-117/65-103 92-97 Constitutional: Yes: Calm Cardiovascular: Yes: Pulse Irregular Respiratory: Yes: Other (rhonchi, no wheeze, decreased basilar breath sounds) Gastrointestinal: Yes: Soft, Abdomen, Obese Edema: No Neurological: Yes: Oriented no jaundice, diaphoresis not agitated Assessment/Plan Echo: Echo 04/2018: EF 45%, mod MR/TR, at least mild , moderate to severe PHTN Nuclear stress 2017: Pharm: small inferolat infarct, mild arlin-infarct ischemia , Overall EF 35-40% CXR: "vs prior, again noted is...congestive changes" ECG: afib, nonsp TWA lateral leads--no change vs prior tele: afib, HR controlled IMP: -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 Dumont suggest again given the overall low risk nature of implant -tele monitoring
--- NOTE | 2018-11-14 11:13 | PN ---
Teaching Attending Note Name of Resident: Odilon Lambert ATTENDING PHYSICIAN STATEMENT I saw and evaluated the patient. I reviewed the resident's note and discussed the case with the resident. I agree with the resident's findings and plan as documented. SUBJECTIVE: Pt seen and examined in the ICU. No overnight events. Son reports generalized weakness. OBJECTIVE: Vital Signs Period Temp Pulse Resp BP Sys/Junior Pulse Ox Last 24 Hr 97.5 F-97.8 F 68-90 17-23 96-117/65-103 92-97 Intake & Output 11/11/18 11/12/18 11/13/18 11/14/18 23:59 23:59 23:59 23:59 Intake Total 1440 1420 650 700 Output Total 0338 749 9809 800 Balance 440 920 -900 -100 Weight 110.024 kg 112.854 kg 110.268 kg 107.184 kg Gen: NAD at rest Heart: RRR Lung: decreased breath sounds at the bases Abd: soft, nontender Ext: no edema CBC, BMP 11/14/18 05:40 11/14/18 05:40 Active Medications Acetaminophen (Tylenol -) 650 mg PO Q6H PRN PRN Reason: HEADACHE Last Admin: 11/14/18 10:43 Dose: 650 mg Albuterol Sulfate (Ventolin 0.5% -) 1 amp NEB Q4H PRN PRN Reason: SHORT OF BREATH/WHEEZING Apixaban (Eliquis -) 2.5 mg PO BID [facility] Last Admin: 11/14/18 10:43 Dose: 2.5 mg Aspirin (Asa -) 81 mg PO DAILY [facility] Last Admin: 11/14/18 10:44 Dose: 81 mg Bisacodyl (Dulcolax Suppository -) 10 mg [place] DAILY PRN PRN Reason: CONSTIPATION Colchicine (Colcrys) 0.6 mg PO BID [facility] Last Admin: 11/14/18 10:59 Dose: 0.6 mg Febuxostat (Uloric -) 40 mg PO DAILY [facility] Last Admin: 11/14/18 10:59 Dose: 40 mg Furosemide (Lasix Injection -) 120 mg IVPB BID@0600,1400 [facility] Last Admin: 11/14/18 05:42 Dose: 120 mg Insulin Aspart (Novolog Vial Sliding Scale -) 0 vial SQ ACHS [facility]; Protocol Last Admin: 11/14/18 06:10 Dose: 6 units Insulin Detemir (Levemir Vial) 5 units SQ BID@0700,2200 [facility] Last Admin: 11/14/18 06:10 Dose: 5 units Ipratropium [place] (Atrovent 0.02% Nebulizer -) 1 amp NEB RQID [facility] Last Admin: 11/14/18 09:32 Dose: 1 amp Levothyroxine Sodium (Synthroid -) 50 mcg PO DAILY@0700 [facility] Last Admin: 11/14/18 06:21 Dose: 50 mcg Metolazone (Zaroxolyn -) 5 mg PO DAILY@1330 [facility] Last Admin: 11/13/18 14:00 Dose: 5 mg Metoprolol Succinate (Toprol Xl -) 50 mg PO BID [facility] Last Admin: 11/14/18 10:46 Dose: 50 mg Pantoprazole Sodium (Protonix Iv) 40 mg IVPUSH DAILY [facility] Last Admin: 11/14/18 10:44 Dose: 40 mg Polyethylene Glycol (Miralax (For Daily Use) -) 17 gm PO BID [facility] Last Admin: 11/14/18 10:45 Dose: 17 gm ASSESSMENT AND PLAN: Acute on Chronic Hypoxic and Hypercapneic Respiratory Failure improving Acute on Chronic Systolic Heart Failure r/o Acute COPD Exacerbation Interstitial Lung Disease Pulmonary HTN Atrial Fibrillation CAD s/p CABG Acute on Chronic Renal Failure JUAN - continue lasix, zaroxolyn per cardiology - monitor urine output, creatinine - can d/c steroids - inhaled bronchodilators - rate control - continue anticoagulation - BiPAP at night and as needed during day - O2 to keep SpO2 88-92% - can monitor on floor - d/c planning
[2018-11-14 11:19] LABS: ANISOCYTOSIS 0; MACROCYTOSIS 0; OVALOCYTE 1+; PLATELET ESTIMATE NORMAL
--- NOTE | 2018-11-14 12:33 | PN ---
Progress Note, Physician Chief Complaint: Comfortable in bed in the ICU. at the bedside. History of Present Illness: Cronic hypercarbic respiratory failure. at night bipap 15/8 Persistent 6.7cm left basilar atelectasis/consolidation. CABG ASHD. DM type on Levemir/Januvia. CRI/ckd 4. 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 Previous Thoracentesis in the past-neg for malignancy. JUAN-at nights using CPAP. Chronic A.Fib. Combined CHF. Gout. Gouty arthritis. Previous rectal surgery for abscess, fistula at [facility]. - Current Medication List Current Medications: Active Medications Acetaminophen (Tylenol -) 650 mg PO Q6H PRN PRN Reason: HEADACHE Last Admin: 11/14/18 10:43 Dose: 650 mg Albuterol Sulfate (Ventolin 0.5% -) 1 amp NEB Q4H PRN PRN Reason: SHORT OF BREATH/WHEEZING Apixaban (Eliquis -) 2.5 mg PO BID [facility] Last Admin: 11/14/18 10:43 Dose: 2.5 mg Aspirin (Asa -) 81 mg PO DAILY [facility] Last Admin: 11/14/18 10:44 Dose: 81 mg Bisacodyl (Dulcolax Suppository -) 10 mg [place] DAILY PRN PRN Reason: CONSTIPATION Colchicine (Colcrys) 0.6 mg PO BID [facility] Last Admin: 11/14/18 10:59 Dose: 0.6 mg Febuxostat (Uloric -) 40 mg PO DAILY [facility] Last Admin: 11/14/18 10:59 Dose: 40 mg Furosemide (Lasix Injection -) 120 mg IVPB BID@0600,1400 [facility] Last Admin: 11/14/18 05:42 Dose: 120 mg Insulin Aspart (Novolog Vial Sliding Scale -) 0 vial SQ ACHS [facility]; Protocol Last Admin: 11/14/18 11:20 Dose: 4 units Insulin Detemir (Levemir Vial) 5 units SQ BID@0700,2200 [facility] Last Admin: 11/14/18 06:10 Dose: 5 units Ipratropium [place] (Atrovent 0.02% Nebulizer -) 1 amp NEB RQID [facility] Last Admin: 11/14/18 09:32 Dose: 1 amp Levothyroxine Sodium (Synthroid -) 50 mcg PO DAILY@0700 [facility] Last Admin: 11/14/18 06:21 Dose: 50 mcg Metolazone (Zaroxolyn -) 5 mg PO DAILY@1330 [facility] Last Admin: 11/13/18 14:00 Dose: 5 mg Metoprolol Succinate (Toprol Xl -) 50 mg PO BID [facility] Last Admin: 11/14/18 10:46 Dose: 50 mg Pantoprazole Sodium (Protonix Iv) 40 mg IVPUSH DAILY [facility] Last Admin: 11/14/18 10:44 Dose: 40 mg Polyethylene Glycol (Miralax (For Daily Use) -) 17 gm PO BID [facility] Last Admin: 11/14/18 10:45 Dose: 17 gm - Objective Vital Signs: Vital Signs Temperature 97.8 F 11/14/18 04:00 Pulse Rate 86 11/14/18 08:00 Respiratory Rate 20 11/14/18 08:00 Blood Pressure 102/72 11/14/18 08:00 O2 Sat by Pulse Oximetry (%) 92 L 11/13/18 23:10 Constitutional: Yes: Anxious, Mild Distress Eyes: Yes: Conjunctiva Clear, EOM Intact HENT: Yes: Atraumatic, Normocephalic Neck: Yes: Supple, Trachea Midline Cardiovascular: Yes: Pulse Irregular, S1, S2. No: JVD Respiratory: Yes: Regular, CTA Bilaterally Gastrointestinal: Yes: Normal Bowel Sounds, Soft, Abdomen, Obese ...Rectal Exam: Yes: Deferred Genitourinary: No: Anuria, Bladder Distention, CVA Tenderness - Left Breast(s): Yes: WNL Musculoskeletal: Yes: WNL Extremities: Yes: WNL Edema: No Peripheral Pulses WNL: No Integumentary: Yes: WNL Wound/Incision: Yes: Other ([place]) Neurological: Yes: Alert, Oriented ...Motor Strength: WNL Psychiatric: Yes: WNL Labs: CBC, BMP 11/14/18 05:40 11/14/18 05:40 INR, PTT INR 1.08 (0.83-1.09) 11/04/18 19:55 Problem List - Problems (1) Acute kidney injury superimposed on CKD Assessment/Plan: Noted BUN/Creat Follow electrolytes Code(s): N17.9 - ACUTE KIDNEY FAILURE, UNSPECIFIED; N18.9 - CHRONIC KIDNEY DISEASE, UNSPECIFIED (2) Acute on chronic respiratory failure with hypoxia and hypercapnia Assessment/Plan: BIPAP, NIV OFF steroids Code(s): J96.21 - ACUTE AND CHRONIC RESPIRATORY FAILURE WITH HYPOXIA; J96.22 - ACUTE AND CHRONIC RESPIRATORY FAILURE WITH HYPERCAPNIA (3) Acute on chronic systolic (congestive) heart failure Assessment/Plan: Lasix , Zaroxolyn PO Code(s): I50.23 - ACUTE ON CHRONIC SYSTOLIC (CONGESTIVE) HEART FAILURE (4) CKD (chronic kidney disease) Assessment/Plan: Follow BUN/Creat Code(s): N18.9 - CHRONIC KIDNEY DISEASE, UNSPECIFIED Qualifiers: Chronic kidney disease stage: stage 3 (moderate) Qualified Code(s): N18.3 - Chronic kidney disease, stage 3 (moderate) (5) Diabetes 1.5, managed as type 2 Assessment/Plan: Follow BGM No episodes of low BGM Novolog coverage. Code(s): E13.9 - OTHER SPECIFIED DIABETES MELLITUS WITHOUT COMPLICATIONS (6) DNR (do not resuscitate) discussion Assessment/Plan: DNR/DNI , D/C planning discussed with the . . Code(s): Z71.89 - OTHER SPECIFIED COUNSELING
--- NOTE | 2018-11-14 12:53 | PN ---
Physical Exam: SUBJECTIVE: Patient seen and examined at bedside. No acute events overnight. Patient on PM BiPaP. No complaints, denies chest pain, sob, abd pain. OBJECTIVE: Vital Signs Period Temp Pulse Resp BP Sys/Ujnior Pulse Ox Last 24 Hr 97.5 F-98.7 F 68-90 17-22 93-117/65-103 92-98 GEN: Well appearing, NAD, comfortable. AAOx3 HEENT: NC/AT, EOMI, No facial asymmetry. Moist mucous membranes. Normal voice. Supple neck w/ FROM. CV: S1/S2, RRR, no m/r/g LUNG: CTAB, no wheezes, crackles, rales, rhonchi. GI: soft, ndnt, +BS, no guarding, no rebound. No masses. EXTREMITIES: No obvious deformities of all extremities. SKIN: warm, dry, normal turgor PSYCH: normal mood and affect NEURO: gait not assessed Laboratory Results - last 24 hr 11/13/18 11/13/18 11/13/18 11:00 17:34 21:29 WBC RBC Hgb Hct MCV MCH MCHC RDW Plt Count MPV Absolute Neuts (auto) Neutrophils % Neutrophils % (Manual) 69.0 Band Neutrophils % 0.0 Lymphocytes % Lymphocytes % (Manual) 17.0 D Monocytes % Monocytes % (Manual) 11 H Eosinophils % Eosinophils % (Manual) 1.0 Basophils % Basophils % (Manual) 0.0 Myelocytes % (Man) 0 D Promyelocytes % (Man) 0 Blast Cells % (Manual) 0 Nucleated RBC % Metamyelocytes 0 Hypochromia 0 Platelet Estimate Normal Polychromasia 0 Poikilocytosis 0 Anisocytosis 0 Microcytosis 0 Macrocytosis 0 Ovalocytes Stomatocytes Sodium Potassium Chloride Carbon Dioxide Anion Gap BUN Creatinine Est GFR (CKD-EPI)AfAm Est GFR (CKD-EPI)NonAf POC Glucometer 360 380 Random Glucose Calcium Total Bilirubin AST ALT Alkaline Phosphatase Total Protein Albumin 11/14/18 11/14/18 11/14/18 05:40 05:40 06:03 WBC 8.9 RBC 4.57 Hgb 13.6 Hct 40.3 MCV 88.3 MCH 29.7 MCHC 33.7 RDW 17.9 H Plt Count 233 MPV 8.4 Absolute Neuts (auto) 6.2 Neutrophils % 69.2 Neutrophils % (Manual) 69.3 Band Neutrophils % 0.0 Lymphocytes % 16.5 D Lymphocytes % (Manual) 12.9 D Monocytes % 11.0 H Monocytes % (Manual) 10 Eosinophils % 2.4 Eosinophils % (Manual) 4.9 H D Basophils % 0.9 Basophils % (Manual) 0.0 Myelocytes % (Man) 0 Promyelocytes % (Man) 0 Blast Cells % (Manual) 0 Nucleated RBC % 0 Metamyelocytes 0 Hypochromia 0 Platelet Estimate Normal Polychromasia 0 Poikilocytosis 0 Anisocytosis 0 Microcytosis 0 Macrocytosis 0 Ovalocytes 1+ Stomatocytes 1+ Sodium 135 L Potassium 4.0 Chloride 82 L Carbon Dioxide 45 H Anion Gap 8 BUN 76.3 H Creatinine 1.8 H Est GFR (CKD-EPI)AfAm 38.37 Est GFR (CKD-EPI)NonAf 33.10 POC Glucometer 213 Random Glucose 194 H Calcium 8.5 Total Bilirubin 0.5 AST 30 ALT 66 H Alkaline Phosphatase 101 Total Protein 6.4 Albumin 3.1 L 11/14/18 11:02 WBC RBC Hgb Hct MCV MCH MCHC RDW Plt Count MPV Absolute Neuts (auto) Neutrophils % Neutrophils % (Manual) Band Neutrophils % Lymphocytes % Lymphocytes % (Manual) Monocytes % Monocytes % (Manual) Eosinophils % Eosinophils % (Manual) Basophils % Basophils % (Manual) Myelocytes % (Man) Promyelocytes % (Man) Blast Cells % (Manual) Nucleated RBC % Metamyelocytes Hypochromia Platelet Estimate Polychromasia Poikilocytosis Anisocytosis Microcytosis Macrocytosis Ovalocytes Stomatocytes Sodium Potassium Chloride Carbon Dioxide Anion Gap BUN Creatinine Est GFR (CKD-EPI)AfAm Est GFR (CKD-EPI)NonAf POC Glucometer 209 Random Glucose Calcium Total Bilirubin AST ALT Alkaline Phosphatase Total Protein Albumin Active Medications Generic Name Dose Route Start Last Admin Trade Name Freq PRN Reason Stop Dose Admin Acetaminophen 650 mg 11/08/18 11:28 11/14/18 10:43 Tylenol - PO 650 mg Q6H PRN Administration HEADACHE Albuterol Sulfate 1 amp 11/11/18 09:51 Ventolin 0.5% - NEB Q4H PRN SHORT OF BREATH/WHEEZING Apixaban 2.5 mg 11/05/18 01:00 11/14/18 10:43 Eliquis - PO 2.5 mg BID JOE Administration Aspirin 81 mg 11/05/18 10:00 11/14/18 10:44 Asa - PO 81 mg DAILY JOE Administration Bisacodyl 10 mg 11/08/18 08:37 Dulcolax Suppository - [place] DAILY PRN CONSTIPATION Colchicine 0.6 mg 11/05/18 10:00 11/14/18 10:59 Colcrys PO 0.6 mg BID JOE Administration Febuxostat 40 mg 11/05/18 10:00 11/14/18 10:59 Uloric - PO 40 mg DAILY JOE Administration Furosemide 120 mg 11/12/18 10:41 11/14/18 05:42 Lasix Injection - IVPB 120 mg BID@0600,1400 JOE Administration Insulin Aspart 0 vial 11/04/18 22:00 11/14/18 11:20 Novolog Vial Sliding Scale - SQ 4 units ACHS JOE Administration Protocol Insulin Detemir 5 units 11/11/18 12:00 11/14/18 06:10 Levemir Vial SQ 5 units BID@0700,2200 JOE Administration Ipratropium [place] 1 amp 11/07/18 12:00 11/14/18 09:32 Atrovent 0.02% Nebulizer - NEB 1 amp RQID JOE Administration Levothyroxine Sodium 50 mcg 11/05/18 08:05 11/14/18 06:21 Synthroid - PO 50 mcg DAILY@0700 JOE Administration Metolazone 5 mg 11/12/18 13:30 11/13/18 14:00 Zaroxolyn - PO 5 mg DAILY@1330 JOE Administration Metoprolol Succinate 50 mg 11/05/18 10:00 11/14/18 10:46 Toprol Xl - PO 50 mg BID JOE Administration Pantoprazole Sodium 40 mg 11/07/18 10:00 11/14/18 10:44 Protonix Iv IVPUSH 40 mg DAILY JOE Administration Polyethylene Glycol 17 gm 11/08/18 10:00 11/14/18 10:45 Miralax (For Daily Use) - PO 17 gm BID JOE Administration ASSESSMENT/PLAN: 88M pmh CHF, HTN, HLD, CAD, COPD, ILD, DM, COUT, UC, BPH, mild dementia in ICU for Acute on Chronic hypoxic, hypercapneic respiratory failure, and acute on chronic systolic heart failure. Patient is on 4L NC doing well w/ no complaints. VSS, benign exam. Needs PT. Set for transfer to telemetry. CV: acute on chronic systolic heart failure - cardiology recs appreciated - c/w IV lasix and daily metolazone - transfer to telemetry - daily weights - c/w ASA, metoprolol PULM:Acute on Chronic hypoxic, hypercapneic respiratory failure - Likely was due to exacerbation of COPD vs. CHF vs. ILD - Maintain saturation - Saturating well on 4L NC - BiPaP at night - Nebs prn KAII: - tolerating PO - PPI ENDO: IDDM; hypothyroidism - Levemir 5U - AISS - synthroid RHEUM: GOUT - dc prednisone - c/w febuxostat, cholchine MSK: deconditioning - Needs PT DVT PPX: eliquis DISPO: telemetry Visit type - Emergency Visit Emergency Visit: No - New Patient This patient is new to me today: No - Critical Care Critical Care patient: No
--- NOTE | 2018-11-14 13:38 | PN ---
Progress Note, Physician History of Present Illness: comfortable no new issues - Current Medication List Current Medications: Active Medications Acetaminophen (Tylenol -) 650 mg PO Q6H PRN PRN Reason: HEADACHE Last Admin: 11/14/18 10:43 Dose: 650 mg Albuterol Sulfate (Ventolin 0.5% -) 1 amp NEB Q4H PRN PRN Reason: SHORT OF BREATH/WHEEZING Apixaban (Eliquis -) 2.5 mg PO BID [facility] Last Admin: 11/14/18 10:43 Dose: 2.5 mg Aspirin (Asa -) 81 mg PO DAILY [facility] Last Admin: 11/14/18 10:44 Dose: 81 mg Bisacodyl (Dulcolax Suppository -) 10 mg [place] DAILY PRN PRN Reason: CONSTIPATION Colchicine (Colcrys) 0.6 mg PO BID [facility] Last Admin: 11/14/18 10:59 Dose: 0.6 mg Febuxostat (Uloric -) 40 mg PO DAILY [facility] Last Admin: 11/14/18 10:59 Dose: 40 mg Furosemide (Lasix Injection -) 120 mg IVPB BID@0600,1400 [facility] Last Admin: 11/14/18 05:42 Dose: 120 mg Insulin Aspart (Novolog Vial Sliding Scale -) 0 vial SQ [facility]; Protocol Last Admin: 11/14/18 11:20 Dose: 4 units Insulin Detemir (Levemir Vial) 5 units SQ BID@0700,2200 [facility] Last Admin: 11/14/18 06:10 Dose: 5 units Ipratropium [place] (Atrovent 0.02% Nebulizer -) 1 amp NEB RQID [facility] Last Admin: 11/14/18 09:32 Dose: 1 amp Levothyroxine Sodium (Synthroid -) 50 mcg PO DAILY@0700 [facility] Last Admin: 11/14/18 06:21 Dose: 50 mcg Metolazone (Zaroxolyn -) 5 mg PO DAILY@1330 [facility] Last Admin: 11/13/18 14:00 Dose: 5 mg Metoprolol Succinate (Toprol Xl -) 50 mg PO BID [facility] Last Admin: 11/14/18 10:46 Dose: 50 mg Pantoprazole Sodium (Protonix Iv) 40 mg IVPUSH DAILY [facility] Last Admin: 11/14/18 10:44 Dose: 40 mg Polyethylene Glycol (Miralax (For Daily Use) -) 17 gm PO BID [facility] Last Admin: 11/14/18 10:45 Dose: 17 gm - Objective Vital Signs: Vital Signs Temperature 98.7 F 11/14/18 12:00 Pulse Rate 87 11/14/18 12:00 Respiratory Rate 19 11/14/18 12:00 Blood Pressure 93/77 11/14/18 12:00 O2 Sat by Pulse Oximetry (%) 98 11/14/18 09:00 Constitutional: Yes: No Distress, Calm Cardiovascular: Yes: Regular Rate and Rhythm Respiratory: Yes: Regular, On Nasal O2 Gastrointestinal: Yes: Normal Bowel Sounds, Soft Extremities: Yes: WNL Neurological: Yes: Alert, Oriented Psychiatric: Yes: Alert, Oriented Labs: CBC, BMP 11/14/18 05:40 11/14/18 05:40 INR, PTT INR 1.08 (0.83-1.09) 11/04/18 19:55 Assessment/Plan Problem List - Problems (1) Atrial fibrillation Code(s): I48.91 - UNSPECIFIED ATRIAL FIBRILLATION Qualifiers: (2) CHF, acute on chronic Code(s): I50.9 - HEART FAILURE, UNSPECIFIED Qualifiers: (3) COPD (chronic obstructive pulmonary disease) Code(s): J44.9 - CHRONIC OBSTRUCTIVE PULMONARY DISEASE, UNSPECIFIED (4) Hypoxemia Code(s): R09.02 - HYPOXEMIA (5) ASHD (arteriosclerotic heart disease) Code(s): I25.10 - ATHSCL HEART DISEASE OF [place] CORONARY ARTERY W/O ANG PCTRS (6) Acute kidney injury superimposed on CKD Code(s): N17.9 - ACUTE KIDNEY FAILURE, UNSPECIFIED; N18.9 - CHRONIC KIDNEY DISEASE, UNSPECIFIED (7) Acute on chronic respiratory failure with hypoxia and hypercapnia Code(s): J96.21 - ACUTE AND CHRONIC RESPIRATORY FAILURE WITH HYPOXIA; J96.22 - ACUTE AND CHRONIC RESPIRATORY FAILURE WITH HYPERCAPNIA (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 - OTHER SPECIFIED PLEURAL CONDITIONS (9) CAD (coronary artery disease) Code(s): I25.10 - ATHSCL HEART DISEASE OF [place] CORONARY ARTERY W/O ANG PCTRS Qualifiers: Coronary Disease-Associated Artery/Lesion type: bypass graft, autologous artery Associated angina: without angina Qualified Code(s): I25.810 - Atherosclerosis of coronary artery bypass graft(s) without angina pectoris (10) DM type 2 (diabetes mellitus, type 2) Code(s): E11.9 - TYPE 2 DIABETES MELLITUS WITHOUT COMPLICATIONS Qualifiers: Diabetes mellitus buttermaker insulin use: with halfway use Chronic kidney disease stage: stage 4 (severe) (11) HTN (hypertension) Code(s): I10 - ESSENTIAL (PRIMARY) HYPERTENSION (12) S/P CABG (coronary artery bypass graft) Code(s): Z95.1 - PRESENCE OF AORTOCORONARY BYPASS GRAFT Assessment/Plan 88 y.o. 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
[2018-11-14] MEDS: METOLAZONE 5 MG TABLET PO SCH (13:40)
[2018-11-15] MEDS: COLCHICINE 0.6 MG CAP PO SCH ×3 (00:29→21:07)
[2018-11-15 05:48] LABS: BASO % 0.6 % (0-2.0); EOS % 1.9 % (0-4.5); HEMATOCRIT 43.5 % (35.4-49); HEMOGLOBIN 14.5 GM/dL (11.7-16.9); LYMPH % 15.7 % (8-40); MCH 29.4 pg (25.7-33.7); MCHC 33.4 g/dl (32.0-35.9); MEAN CELL VOLUME 88.1 fl (80-96); MEAN PLT VOLUME 8.3 fl (7.5-11.1); MONO % 10.3 % (3.8-10.2); NEUT % 71.5 % (42.8-82.8); PLATELET COUNT 271 K/MM3 (134-434); RBC 4.93 M/mm3 (4.00-5.60); RDW 17.8 % (11.9-15.9); WHITE BLOOD COUNT 8.7 K/mm3 (4.0-10.0)
[2018-11-15 06:23] LABS: ALBUMIN 3.4 g/dl (3.4-5.0); BILIRUBIN,TOTAL 0.6 mg/dL (0.2-1); BLOOD UREA NITROGEN 81.6 mg/dL (7-18); CREATININE 1.8 mg/dL (0.55-1.3); POTASSIUM 3.6 mmol/L (3.5-5.1); TOT PROT 6.6 g/dl (6.4-8.2)
[2018-11-15] MEDS: FUROSEMIDE 40 MG/4 ML INJECTABLE VIAL IVPB SCH ×2 (06:27→14:01)
[2018-11-15] MEDS: INSULIN (LEVEMIR) 100 UNITS/ML UNITS SQ SCH ×2 (06:28→21:09)
[2018-11-15] MEDS: LEVOTHYROXINE NA 50 MCG TABLET (FP) PO SCH (06:28)
[2018-11-15] MEDS: INSULIN SLIDING SCALE (NOVOLOG) 1 VIAL SQ SCH ×4 (06:29→22:30)
--- NOTE | 2018-11-15 08:22 | PN ---
Progress Note, Physician Chief Complaint: Comfortable in ICU on O2 mask, nebulizer treatment History of Present Illness: Cronic hypercarbic respiratory failure. at night bipap 15/8 Persistent 6.7cm left basilar atelectasis/consolidation. CABG ASHD. DM type on Levemir/Januvia. CRI/ckd 4. 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 Previous Thoracentesis in the past-neg for malignancy. JUAN-at nights using CPAP. Chronic A.Fib. Combined CHF. Gout. Gouty arthritis. Previous rectal surgery for abscess, fistula at [facility]. - Current Medication List Current Medications: Active Medications Current Medications Generic Name Dose Route Start Last Admin Trade Name Freq PRN Reason Stop Dose Admin Acetaminophen 650 mg 11/08/18 11:28 11/14/18 10:43 Tylenol - PO 650 mg Q6H PRN Administration HEADACHE Albuterol Sulfate 1 amp 11/11/18 09:51 Ventolin 0.5% - NEB Q4H PRN SHORT OF BREATH/WHEEZING Apixaban 2.5 mg 11/05/18 01:00 11/14/18 21:30 Eliquis - PO 2.5 mg BID JOE Administration Aspirin 81 mg 11/05/18 10:00 11/14/18 10:44 Asa - PO 81 mg DAILY JOE Administration Bisacodyl 10 mg 11/08/18 08:37 Dulcolax Suppository - [place] DAILY PRN CONSTIPATION Colchicine 0.6 mg 11/05/18 10:00 11/15/18 00:29 Colcrys PO 0.6 mg BID JOE Administration Febuxostat 40 mg 11/05/18 10:00 11/14/18 10:59 Uloric - PO 40 mg DAILY JOE Administration Furosemide 120 mg 11/12/18 10:41 11/15/18 06:27 Lasix Injection - IVPB 120 mg BID@0600,1400 JOE Administration Insulin Aspart 0 vial 11/04/18 22:00 11/15/18 06:29 Novolog Vial Sliding Scale - SQ 2 units ACHS JOE Administration Protocol Insulin Detemir 5 units 11/11/18 12:00 11/15/18 06:28 Levemir Vial SQ 5 units BID@0700,2200 JOE Administration Ipratropium [place] 1 amp 11/07/18 12:00 11/14/18 19:57 Atrovent 0.02% Nebulizer - NEB 1 amp RQID JOE Administration Levothyroxine Sodium 50 mcg 11/05/18 08:05 11/15/18 06:28 Synthroid - PO 50 mcg DAILY@0700 JOE Administration Metoprolol Succinate 50 mg 11/05/18 10:00 11/14/18 21:32 Toprol Xl - PO Not Given BID JOE Pantoprazole Sodium 40 mg 11/07/18 10:00 11/14/18 10:44 Protonix Iv IVPUSH 40 mg DAILY JOE Administration Polyethylene Glycol 17 gm 11/08/18 10:00 11/14/18 21:31 Miralax (For Daily Use) - PO 17 gm BID JOE Administration - Objective Vital Signs: Vital Signs Temperature 97.8 F 11/15/18 05:55 Pulse Rate 78 11/15/18 05:55 Respiratory Rate 24 H 11/15/18 05:55 Blood Pressure 125/86 11/15/18 05:55 O2 Sat by Pulse Oximetry (%) 98 11/15/18 03:26 Constitutional: Yes: Anxious, Mild Distress Eyes: Yes: Conjunctiva Clear, EOM Intact HENT: Yes: Atraumatic, Normocephalic Neck: Yes: Supple, Trachea Midline Cardiovascular: Yes: Pulse Irregular, S1, S2. No: Tachycardia Respiratory: Yes: Regular, Diminished (B/L) Gastrointestinal: Yes: Normal Bowel Sounds, Soft, Hepatomegaly ...Rectal Exam: Yes: Deferred Genitourinary: No: Anuria Breast(s): Yes: WNL Musculoskeletal: Yes: WNL Extremities: No: Calf Tenderness, Cold, Cyanosis Edema: No Integumentary: Yes: WNL Neurological: Yes: WNL, Alert, Oriented ...Motor Strength: WNL Psychiatric: Yes: WNL Labs: CBC, BMP 11/15/18 05:20 11/15/18 05:20 INR, PTT INR 1.08 (0.83-1.09) 11/04/18 19:55 Problem List - Problems (1) Acute kidney injury superimposed on CKD Assessment/Plan: Noted BUN/Creat-worseming pre-renal insufficiency D/C Metolazone for now Follow electrolytes Code(s): N17.9 - ACUTE KIDNEY FAILURE, UNSPECIFIED; N18.9 - CHRONIC KIDNEY DISEASE, UNSPECIFIED (2) Acute on chronic respiratory failure with hypoxia and hypercapnia Assessment/Plan: BIPAP, NIV OFF steroids Code(s): J96.21 - ACUTE AND CHRONIC RESPIRATORY FAILURE WITH HYPOXIA; J96.22 - ACUTE AND CHRONIC RESPIRATORY FAILURE WITH HYPERCAPNIA (3) Acute on chronic systolic (congestive) heart failure Assessment/Plan: Lasix IV Code(s): I50.23 - ACUTE ON CHRONIC SYSTOLIC (CONGESTIVE) HEART FAILURE (4) CKD (chronic kidney disease) Assessment/Plan: Follow BUN/Creat Code(s): N18.9 - CHRONIC KIDNEY DISEASE, UNSPECIFIED Qualifiers: Chronic kidney disease stage: stage 3 (moderate) Qualified Code(s): N18.3 - Chronic kidney disease, stage 3 (moderate) (5) Diabetes 1.5, managed as type 2 Assessment/Plan: Controlled BGM No episodes of low BGM Novolog coverage. Code(s): E13.9 - OTHER SPECIFIED DIABETES MELLITUS WITHOUT COMPLICATIONS (6) DNR (do not resuscitate) discussion Assessment/Plan: DNR/DNI , D/C planning discussed with the . . Code(s): Z71.89 - OTHER SPECIFIED COUNSELING
[2018-11-15] MEDS: IPRATROPIUM BR 0.02% 0.5 MG/2.5 ML VIAL.NEB. NEB SCH ×2 (08:23→12:34)
[2018-11-15] MEDS ORDERED: PT OWN MED DRAWER 7, Y5N ONE (09:18)
[2018-11-15] MEDS: ASPIRIN 81 MG CHEWABLE TABLETS PO SCH (09:29)
[2018-11-15] MEDS: PANTOPRAZOLE SODIUM 40 MG VIAL IVPUSH SCH (09:29)
[2018-11-15] MEDS: APIXABAN 2.5 MG TABLET PO SCH ×2 (09:29→21:07)
[2018-11-15] MEDS: FEBUXOSTAT 40 MG TAB PO SCH (09:30)
[2018-11-15] MEDS: POLYETHYLENE GLYCOL 3350 119 GM BTL PO SCH ×2 (09:32→21:08)
--- NOTE | 2018-11-15 10:19 | PN ---
Progress Note (short form) - Note Progress Note: worse shortness of breath today. no palps, chest pain, dizziness Current Medications Acetaminophen (Tylenol -) 650 mg PO Q6H PRN PRN Reason: HEADACHE Last Admin: 11/14/18 10:43 Dose: 650 mg Albuterol Sulfate (Ventolin 0.5% -) 1 amp NEB Q4H PRN PRN Reason: SHORT OF BREATH/WHEEZING Apixaban (Eliquis -) 2.5 mg PO BID [facility] Last Admin: 11/15/18 09:29 Dose: 2.5 mg Aspirin (Asa -) 81 mg PO DAILY [facility] Last Admin: 11/15/18 09:29 Dose: 81 mg Bisacodyl (Dulcolax Suppository -) 10 mg [place] DAILY PRN PRN Reason: CONSTIPATION Colchicine (Colcrys) 0.6 mg PO BID [facility] Last Admin: 11/15/18 09:29 Dose: 0.6 mg Febuxostat (Uloric -) 40 mg PO DAILY [facility] Last Admin: 11/15/18 09:30 Dose: 40 mg Furosemide (Lasix Injection -) 120 mg IVPB BID@0600,1400 [facility] Last Admin: 11/15/18 06:27 Dose: 120 mg Insulin Aspart (Novolog Vial Sliding Scale -) 0 vial SQ ACHS [facility]; Protocol Last Admin: 11/15/18 10:15 Dose: Not Given Insulin Detemir (Levemir Vial) 5 units SQ BID@0700,2200 [facility] Last Admin: 11/15/18 06:28 Dose: 5 units Ipratropium [place] (Atrovent 0.02% Nebulizer -) 1 amp NEB RQID [facility] Last Admin: 11/15/18 08:23 Dose: 1 amp Levothyroxine Sodium (Synthroid -) 50 mcg PO DAILY@0700 [facility] Last Admin: 11/15/18 06:28 Dose: 50 mcg Metoprolol Succinate (Toprol Xl -) 50 mg PO BID [facility] Last Admin: 11/15/18 09:32 Dose: 50 mg Pantoprazole Sodium (Protonix Iv) 40 mg IVPUSH DAILY [facility] Last Admin: 11/15/18 09:29 Dose: 40 mg Polyethylene Glycol (Miralax (For Daily Use) -) 17 gm PO BID [facility] Last Admin: 11/15/18 09:32 Dose: 17 gm Vital Signs Period Temp Pulse Resp BP Sys/Junior Pulse Ox Last 24 Hr 97.5 F-98.7 F 78-104 19-24 83-125/61-87 93-98 Constitutional: Yes: Calm Cardiovascular: Yes: Pulse Irregular Respiratory: Yes: Other (rhonchi, no wheeze, decreased basilar breath sounds) Gastrointestinal: Yes: Soft, Abdomen, Obese Edema: No Neurological: Yes: Oriented no jaundice, diaphoresis not agitated Assessment/Plan Echo: Echo 04/2018: EF 45%, mod MR/TR, at least mild , moderate to severe PHTN Nuclear stress 2017: Pharm: small inferolat infarct, mild arlin-infarct ischemia , Overall EF 35-40% CXR: "vs prior, again noted is...congestive changes" ECG: afib, nonsp TWA lateral leads--no change vs prior tele: afib, HR controlled IMP: -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 Dumont suggest again given the overall low risk nature of implant -tele monitoring
--- NOTE | 2018-11-15 10:38 | PN ---
Teaching Attending Note Name of Resident: Odilon Lambert ATTENDING PHYSICIAN STATEMENT I saw and evaluated the patient. I reviewed the resident's note and discussed the case with the resident. I agree with the resident's findings and plan as documented. SUBJECTIVE: Pt seen and examined in the ICU. No events overnight. Saturating well on nasal cannula. OBJECTIVE: Vital Signs Period Temp Pulse Resp BP Sys/Junior Pulse Ox Last 24 Hr 97.5 F-98.7 F 78-104 19-24 83-125/61-87 93-98 Intake & Output 11/12/18 11/13/18 11/14/18 11/15/18 23:59 23:59 23:59 23:59 Intake Total 2501 350 5271 100 Output Total 500 1550 2200 600 Balance 920 -900 -860 -500 Weight 112.854 kg 110.268 kg 107.184 kg 103.901 kg Gen: NAD at rest Heart: RRR Lung: decreased breath sounds at the bases Abd: soft, nontender Ext: no edema CBC, BMP 11/15/18 05:20 11/15/18 05:20 Active Medications Acetaminophen (Tylenol -) 650 mg PO Q6H PRN PRN Reason: HEADACHE Last Admin: 11/14/18 10:43 Dose: 650 mg Albuterol Sulfate (Ventolin 0.5% -) 1 amp NEB Q4H PRN PRN Reason: SHORT OF BREATH/WHEEZING Apixaban (Eliquis -) 2.5 mg PO BID [facility] Last Admin: 11/15/18 09:29 Dose: 2.5 mg Aspirin (Asa -) 81 mg PO DAILY [facility] Last Admin: 11/15/18 09:29 Dose: 81 mg Bisacodyl (Dulcolax Suppository -) 10 mg [place] DAILY PRN PRN Reason: CONSTIPATION Colchicine (Colcrys) 0.6 mg PO BID [facility] Last Admin: 11/15/18 09:29 Dose: 0.6 mg Febuxostat (Uloric -) 40 mg PO DAILY [facility] Last Admin: 11/15/18 09:30 Dose: 40 mg Furosemide (Lasix Injection -) 120 mg IVPB BID@0600,1400 [facility] Last Admin: 11/15/18 06:27 Dose: 120 mg Insulin Aspart (Novolog Vial Sliding Scale -) 0 vial SQ ACHS [facility]; Protocol Last Admin: 11/15/18 10:15 Dose: Not Given Insulin Detemir (Levemir Vial) 5 units SQ BID@0700,2200 [facility] Last Admin: 11/15/18 06:28 Dose: 5 units Ipratropium [place] (Atrovent 0.02% Nebulizer -) 1 amp NEB RQID [facility] Last Admin: 11/15/18 08:23 Dose: 1 amp Levothyroxine Sodium (Synthroid -) 50 mcg PO DAILY@0700 [facility] Last Admin: 11/15/18 06:28 Dose: 50 mcg Metoprolol Succinate (Toprol Xl -) 50 mg PO BID [facility] Last Admin: 11/15/18 09:32 Dose: 50 mg Pantoprazole Sodium (Protonix Iv) 40 mg IVPUSH DAILY [facility] Last Admin: 11/15/18 09:29 Dose: 40 mg Polyethylene Glycol (Miralax (For Daily Use) -) 17 gm PO BID [facility] Last Admin: 11/15/18 09:32 Dose: 17 gm ASSESSMENT AND PLAN: Acute on Chronic Hypoxic and Hypercapneic Respiratory Failure improving Acute on Chronic Systolic Heart Failure r/o Acute COPD Exacerbation Interstitial Lung Disease Pulmonary HTN Atrial Fibrillation CAD s/p CABG Acute on Chronic Renal Failure JUAN - continue lasix per cardiology - monitor urine output, creatinine - monitor off steroids - inhaled bronchodilators - rate control - continue anticoagulation - BiPAP at night and as needed during day - check ABG on home O2 to assess for home NIPPV - O2 to keep SpO2 88-92% - can monitor on floor - d/c planning
[2018-11-15 13:23] LABS: ARTERIAL BLOOD GAS BASE EXCESS 15.2 meq/l (-2-2); ARTERIAL BLOOD GAS PCO2 49.3 mmHg (35-45); ARTERIAL BLOOD GAS PO2 66.2 mmHg (80-100); ARTERIAL BLOOD GAS pH 7.53 (7.35-7.45)
[2018-11-15 13:27] LABS: ALLENS TEST POSITIVE
--- NOTE | 2018-11-15 14:10 | PN ---
Physical Exam: SUBJECTIVE: Patient seen and examined at bedside. No acute overnight events. Patient's family states pt had an episode of difficulty swallowing food today - confirmed with nurse who stated patient was coughing and desaturated after eating. Family states pt has had difficulty swallowing for 2-3 months now. Denies f/c, chest pain, abd pain, n/v. OBJECTIVE: Vital Signs Period Temp Pulse Resp BP Sys/Junior Pulse Ox Last 24 Hr 97.5 F-98.0 F 78-104 19-24 83-125/61-87 93-98 GEN:NAD, comfortable. HEENT: NC/AT, EOMI. No facial asymmetry. Normal voice. Supple neck w/ FROM. CV: S1/S2, RRR, no m/r/g LUNG: CTAB, no wheezes, crackles, rales, rhonchi. GI: mildly distended. soft, nt, +BS, no guarding, no rebound. Neg CVAT b/l. No masses. EXTREMITIES: No LE edema. No obvious deformities of all extremities. SCDs in place. SKIN: warm, dry, normal turgor PSYCH: mild dementia, normal mood/affect Laboratory Results - last 24 hr 11/14/18 11/14/18 11/15/18 16:59 21:20 05:20 WBC RBC Hgb Hct MCV MCH MCHC RDW Plt Count MPV Absolute Neuts (auto) Neutrophils % Lymphocytes % Monocytes % Eosinophils % Basophils % Nucleated RBC % Anticoagulation Therapy Puncture Site ABG pH ABG pCO2 at Pt Temp ABG pO2 at Pt Temp ABG HCO3 ABG O2 Sat (Measured) ABG O2 Content ABG Base Excess Esteabn Test O2 Delivery Device Oxygen Flow Rate Vent Mode Vent Rate Mechanical Rate Pressure Support Vent Sodium 132 L Potassium 3.6 Chloride 79 L Carbon Dioxide 45 H Anion Gap 8 BUN 81.6 H Creatinine 1.8 H Est GFR (CKD-EPI)AfAm 38.37 Est GFR (CKD-EPI)NonAf 33.10 POC Glucometer 398 366 Random Glucose 149 H Calcium 9.0 Total Bilirubin 0.6 AST 26 ALT 66 H Alkaline Phosphatase 94 Total Protein 6.6 Albumin 3.4 11/15/18 11/15/18 11/15/18 05:20 05:50 10:12 WBC 8.7 RBC 4.93 Hgb 14.5 Hct 43.5 MCV 88.1 MCH 29.4 MCHC 33.4 RDW 17.8 H Plt Count 271 MPV 8.3 Absolute Neuts (auto) 6.2 Neutrophils % 71.5 Lymphocytes % 15.7 Monocytes % 10.3 H Eosinophils % 1.9 Basophils % 0.6 Nucleated RBC % 0 Anticoagulation Therapy Puncture Site ABG pH ABG pCO2 at Pt Temp ABG pO2 at Pt Temp ABG HCO3 ABG O2 Sat (Measured) ABG O2 Content ABG Base Excess Esteban Test O2 Delivery Device Oxygen Flow Rate Vent Mode Vent Rate Mechanical Rate Pressure Support Vent Sodium Potassium Chloride Carbon Dioxide Anion Gap BUN Creatinine Est GFR (CKD-EPI)AfAm Est GFR (CKD-EPI)NonAf POC Glucometer 159 224 Random Glucose Calcium Total Bilirubin AST ALT Alkaline Phosphatase Total Protein Albumin 11/15/18 13:10 WBC RBC Hgb Hct MCV MCH MCHC RDW Plt Count MPV Absolute Neuts (auto) Neutrophils % Lymphocytes % Monocytes % Eosinophils % Basophils % Nucleated RBC % Anticoagulation Therapy No Result Required. Puncture Site Right radial ABG pH 7.53 H ABG pCO2 at Pt Temp 49.3 H ABG pO2 at Pt Temp 66.2 L ABG HCO3 40.6 H ABG O2 Sat (Measured) 94.0 L ABG O2 Content 18.9 ABG Base Excess 15.2 H Esteban Test Positive O2 Delivery Device No Result Required. Oxygen Flow Rate No Vent Mode No Result Required. Vent Rate No Result Required. Mechanical Rate No Result Required. Pressure Support Vent No Result Required. Sodium Potassium Chloride Carbon Dioxide Anion Gap BUN Creatinine Est GFR (CKD-EPI)AfAm Est GFR (CKD-EPI)NonAf POC Glucometer Random Glucose Calcium Total Bilirubin AST ALT Alkaline Phosphatase Total Protein Albumin Active Medications Generic Name Dose Route Start Last Admin Trade Name Freq PRN Reason Stop Dose Admin Acetaminophen 650 mg 11/08/18 11:28 11/14/18 10:43 Tylenol - PO 650 mg Q6H PRN Administration HEADACHE Albuterol Sulfate 1 amp 11/11/18 09:51 Ventolin 0.5% - NEB Q4H PRN SHORT OF BREATH/WHEEZING Apixaban 2.5 mg 11/05/18 01:00 11/15/18 09:29 Eliquis - PO 2.5 mg BID JOE Administration Aspirin 81 mg 11/05/18 10:00 11/15/18 09:29 Asa - PO 81 mg DAILY JOE Administration Bisacodyl 10 mg 11/08/18 08:37 11/15/18 11:47 Dulcolax Suppository - [place] 10 mg DAILY PRN Administration CONSTIPATION Colchicine 0.6 mg 11/05/18 10:00 11/15/18 09:29 Colcrys PO 0.6 mg BID JOE Administration Febuxostat 40 mg 11/05/18 10:00 11/15/18 09:30 Uloric - PO 40 mg DAILY JOE Administration Furosemide 120 mg 11/12/18 10:41 11/15/18 14:01 Lasix Injection - IVPB 120 mg BID@0600,1400 JOE Administration Insulin Aspart 0 vial 11/04/18 22:00 11/15/18 10:15 Novolog Vial Sliding Scale - SQ Not Given [facility] Protocol Insulin Detemir 5 units 11/11/18 12:00 11/15/18 06:28 Levemir Vial SQ 5 units BID@0700,2200 JOE Administration Levothyroxine Sodium 50 mcg 11/05/18 08:05 11/15/18 06:28 Synthroid - PO 50 mcg DAILY@0700 JOE Administration Metoprolol Succinate 50 mg 11/05/18 10:00 11/15/18 09:32 Toprol Xl - PO 50 mg BID JOE Administration Pantoprazole Sodium 40 mg 11/07/18 10:00 11/15/18 09:29 Protonix Iv IVPUSH 40 mg DAILY JOE Administration Polyethylene Glycol 17 gm 11/08/18 10:00 11/15/18 09:32 Miralax (For Daily Use) - PO 17 gm BID JOE Administration ASSESSMENT/PLAN: 88M pmh CHF, HTN, HLD, CAD, COPD, ILD, DM, COUT, UC, BPH, mild dementia in ICU for Acute on Chronic hypoxic, hypercapneic respiratory failure, and acute on chronic systolic heart failure. Patient is on 4L NC doing well w/ no complaints. VSS, benign exam. Needs PT. Set for transfer to telemetry. Patient had an episode of coughing and desaturation after eating. CV: acute on chronic systolic heart failure - cardiology recs appreciated - c/w IV lasix and daily metolazone - transfer to telemetry - c/w ASA, metoprolol PULM:Acute on Chronic hypoxic, hypercapneic respiratory failure - Likely was due to exacerbation of COPD vs. CHF vs. ILD - Maintain saturation >88% - Saturating well on 4L NC - PM BiPaP - Atrovent - Nebs prn RENAL: Alkalosis - Daily BUN slowly increasing 65.9 > 71 > 76.3 > 81.6 - Daily Cr stable - 11/15/18 ABG demonstrating pH 7.54, pO2 66.2, pCO2 49.3; previous ABG pH 7.42, pO2 92 - Given alkalosis, rising BUN, and high dose of lasix there is concern re: contraction alkalosis; will discuss with cardiology - Discussed w/ cardiology; will hold next lasix dose FENGI: desaturation and cough after eating - NPO - Speech/swallow eval - PPI - Speech/Swallow eval appreciated: dysphagia diet ENDO: IDDM; hypothyroidism - Levemir 5U - AISS - synthroid RHEUM: GOUT - dc'd prednisone - c/w febuxostat, cholchine MSK: deconditioning - PT DVT PPX: - eliquis DISPO: telemetry Visit type - Emergency Visit Emergency Visit: No - New Patient This patient is new to me today: No - Critical Care Critical Care patient: No
--- NOTE | 2018-11-15 16:31 | CONSULT ---
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 Patient recently observed at [facility] on 10/27-10/29 for possible seizure and syncope. He presents to the ED on for shortness of breath for four days.The patient was hypoxic 70-74% at home. On arrival to the ED, the patient was tachypneic with labored breathing and was placed on Bipap. He is in the ICU Chronic hypercarbic respiratory failure. at night bipap / Persistent 6.7cm left basilar atelectasis/consolidation. CABG ASHD. DM type on Levemir/Januvia. CRI/ckd 4. 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 Previous Thoracentesis in the past-neg for malignancy. JUAN-at nights using CPAP. Chronic A.Fib. Combined CHF. Gout. Gouty arthritis. Previous rectal surgery for abscess, fistula at [facility]. Per EMR-Patient's family states pt had an episode of difficulty swallowing food today - confirmed with nurse who stated patient was coughing and desaturated after eating. Family states pt has had difficulty swallowing for 2- 3 months now. Pt reports that he eats baby food at home at times, due to swallowing difficulty.. He had difficulty with a hamburger today and jello and said the Lentil soup "almost killed him and he couldn't stop coughing." Upon review of swallowing bahAVIORS, pt reclines frequently after eating, enjoys wine, tomatoes, etc. r/o GERD/Laryngopharyngeal reflux. 11/14/18 11/14/18 11/14/18 00:00 04:00 12:00 Breakfast Lunch Supper Temperature 97.5 F L 97.8 F 98.7 F 11/14/18 11/14/18 11/14/18 15:00 16:00 22:52 Breakfast 100% Lunch 100% Supper 50% Temperature 97.9 F 11/15/18 11/15/18 11/15/18 00:00 05:55 08:40 Breakfast 50% Lunch Supper Temperature 98 F 97.8 F 97.5 F L 11/15/18 12:36 Breakfast Lunch Supper Temperature 98.0 F Laboratory Tests 11/13/18 11/14/18 11:00 05:40 WBC 8.9 8.9 Protonix IV started 11/07. This is my first consult with this pt. History Source: Patient, Medical Record Limitations to Obtaining History: No Limitations - Past Medical History [employer]: Yes: Dementia (mild), Other (Mild cognitive impairment) Cardiovascular: Yes: AFIB, Aortic Stenosis, CAD, HTN, Hyperlipdemia Pulmonary: Yes: COPD, O2 Dependent, Sleep Apnea, Other (Extensive pleural disease. 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 History of Recent Travel: No History - Admission Reason For Visit: ACUTE KIDNEY INJURY, ACUTE RESPIRATORY FAILURE WIT - Diagnostics X-ray: Report Reviewed - General Mental Status: Alert and Oriented, Awake and Alert, Able to Follow Commands Attention: Intact Ability to Follow Directions: Good Head/Neck Control: WFL - Hearing Hearing: Impaired Hearing Aide: No Speech Evaluation - Communication Primary Language: ESTONIAN Secondary Language: ETHIOPIAN (fluent, [place]) Communication: Yes: Within Normal Limits Oral Expression Ability: Yes: No Impairment - Speech Production Able to Make Needs Known: Yes: WNL Intelligibility: Yes: WNL - Speech Characteristics Voice Loudness: Normal Voice Pitch: Yes: Normal Voice Phonatory-based Quality: Yes: Normal Speech Pattern: Normal Speech Clarity: < 100% Nasal Resonance: Normal Articulation: Yes: Precise Rate of Speech: Intact - Language/Auditory Comprehension Follows: Yes: 2 Stage Simple Commands Observation: Able to respond to yes/no queries: Yes, Yes/No Confusion: No, Comprehends Conversational Speech: Yes, Benefits from Slow Speech: Yes, Benefits from Repetiton: Yes, Benefits from Increased Volume of Speech: Yes - Language/Verbal Expression Able to Respond to Simple Queries: Yes: WNL Able to Communicate Wants and Needs: Yes: WNL Functional Communication Status: Yes: WNL - Swallow Evaluation/Bedside Assessment Current Nutritional Intake: Regular, Thin Liquids Oral Secretions: Yes: WFL Dentition: Yes: Adequate, Missing Teeth (top left region) Facial Symmetry at Rest: Symmetrical Facial Symmetry on Retraction: Symmetrical Facial Movement: Controlled Sensation: Normal Against Resistance Opening: Normal Against Resistance Closing: Normal Pucker Lips: Normal Smile: Normal Lingual Movement: Normal, Symmetric Lingual Speed of Movement: Normal Lingual Movement Strgth Against Opposition: Normal Lingual Movement Characteristics: Normal Velopharyngeal Movement: Normal Laryngeal Elevation: WFL Laryngeal Movement: Able to Palpate, Labored,delay initiation Rate of Intake: WFL Bolus Size: WFL Labial Seal: WFL Chewing: WFL Oral Prep Time: WFL A-P Transit: WFL Pocketing: None Timing of Swallow: Delayed Coughing/Throat Clear: Yes (reported with solids. Not observed.) Recommendations - Speech Evaluation, Impression/Plan Impression: Choking/coughing incidents on Lentil soup, Burger, Jello. h/o dysphagia over last couple of months, sometimes has baby food at home. COPD/JUAN /GERD may all contribute to dysphagia. r/o stasis/aspiration - Dysphagia Impressions/Plan Swallowing Skills: Impaired Dysphagia Impressions: Ongoing Evaluation *Silent aspiration: cannot be R/O at bedside Dysphagia Treatment Plan: Small Bites, Chin Tuck/Down, Clear Pocket Food, Trial Feedings, Safe Rate, 1/2 tsp. at a time, Elevate HOB during feed (HOB elevated x 1-2 hours after meals. GERD precautions-Minimize caffeine, carbonation, citrus , tomatoes), Other (Alternate solids with liquids. Complete meal with liquids. Several smaller meals throughut the day.) Recommendations: MBS w Esophagus - Recommendations Diet Consistency: Dysphagia Minced Medication Administration: Crushed with applesauce Liquids: Thin Liquids (single sips)
--- NOTE | 2018-11-15 19:08 | PN ---
Progress Note, Physician - Current Medication List Current Medications: Active Medications Acetaminophen (Tylenol -) 650 mg PO Q6H PRN PRN Reason: HEADACHE Last Admin: 11/14/18 10:43 Dose: 650 mg Albuterol Sulfate (Ventolin 0.5% -) 1 amp NEB Q4H PRN PRN Reason: SHORT OF BREATH/WHEEZING Apixaban (Eliquis -) 2.5 mg PO BID [facility] Last Admin: 11/15/18 09:29 Dose: 2.5 mg Aspirin (Asa -) 81 mg PO DAILY [facility] Last Admin: 11/15/18 09:29 Dose: 81 mg Bisacodyl (Dulcolax Suppository -) 10 mg [place] DAILY PRN PRN Reason: CONSTIPATION Last Admin: 11/15/18 11:47 Dose: 10 mg Colchicine (Colcrys) 0.6 mg PO BID [facility] Last Admin: 11/15/18 09:29 Dose: 0.6 mg Febuxostat (Uloric -) 40 mg PO DAILY [facility] Last Admin: 11/15/18 09:30 Dose: 40 mg Furosemide (Lasix Injection -) 120 mg IVPB BID@0600,1400 [facility] Last Admin: 11/15/18 14:01 Dose: 120 mg Insulin Aspart (Novolog Vial Sliding Scale -) 0 vial SQ ACHS [facility]; Protocol Last Admin: 11/15/18 16:02 Dose: 10 units Insulin Detemir (Levemir Vial) 5 units SQ BID@0700,2200 [facility] Last Admin: 11/15/18 06:28 Dose: 5 units Levothyroxine Sodium (Synthroid -) 50 mcg PO DAILY@0700 [facility] Last Admin: 11/15/18 06:28 Dose: 50 mcg Metoprolol Succinate (Toprol Xl -) 50 mg PO BID [facility] Last Admin: 11/15/18 09:32 Dose: 50 mg Pantoprazole Sodium (Protonix Iv) 40 mg IVPUSH DAILY [facility] Last Admin: 11/15/18 09:29 Dose: 40 mg Polyethylene Glycol (Miralax (For Daily Use) -) 17 gm PO BID [facility] Last Admin: 11/15/18 09:32 Dose: 17 gm - Objective Vital Signs: Vital Signs Temperature 97.7 F 11/15/18 18:14 Pulse Rate 94 H 11/15/18 18:25 Respiratory Rate 20 11/15/18 18:25 Blood Pressure 109/78 11/15/18 18:25 O2 Sat by Pulse Oximetry (%) 96 11/15/18 18:44 Labs: CBC, BMP 11/15/18 05:20 11/15/18 05:20 INR, PTT INR 1.08 (0.83-1.09) 11/04/18 19:55
[2018-11-16] MEDS: INSULIN SLIDING SCALE (NOVOLOG) 1 VIAL SQ SCH ×4 (06:11→22:55)
[2018-11-16] MEDS: INSULIN (LEVEMIR) 100 UNITS/ML UNITS SQ SCH ×2 (06:11→22:53)
[2018-11-16] MEDS: LEVOTHYROXINE NA 50 MCG TABLET (FP) PO SCH (06:12)
[2018-11-16 06:22] LABS: BASO % 0.6 % (0-2.0); EOS % 2.2 % (0-4.5); HEMATOCRIT 43.1 % (35.4-49); HEMOGLOBIN 14.4 GM/dL (11.7-16.9); MCH 29.5 pg (25.7-33.7); MCHC 33.4 g/dl (32.0-35.9); MEAN CELL VOLUME 88.1 fl (80-96); MEAN PLT VOLUME 8.6 fl (7.5-11.1); MONO % 9.6 % (3.8-10.2); NEUT % 75.6 % (42.8-82.8); PLATELET COUNT 247 K/MM3 (134-434); RBC 4.89 M/mm3 (4.00-5.60); RDW 17.9 % (11.9-15.9); WHITE BLOOD COUNT 9.1 K/mm3 (4.0-10.0)
[2018-11-16 06:57] LABS: ALBUMIN 3.2 g/dl (3.4-5.0); ALK PHOS 108 U/L (45-117); ANION GAP 7 MMOL/L (8-16); BILIRUBIN,TOTAL 0.5 mg/dL (0.2-1); CALCIUM 8.7 mg/dL (8.5-10.1); CHLORIDE 79 mmol/L (98-107); CO2 > 45 mmol/L (21-32); GLUCOSE,RANDOM 245 mg/dL (74-106); MAGNESIUM 2.5 mg/dL (1.8-2.4); PHOSPHOROUS 4.7 mg/dL (2.5-4.9); POTASSIUM 3.6 mmol/L (3.5-5.1); SGOT/AST 25 U/L (15-37); SGPT/ALT 59 U/L (13-61); SODIUM 131 mmol/L (136-145)
--- NOTE | 2018-11-16 07:25 | PN ---
Progress Note, Physician Chief Complaint: Respiratory status slowly improving, more lethargic today. History of Present Illness: Cronic hypercarbic respiratory failure. at night bipap 15/8 Persistent 6.7cm left basilar atelectasis/consolidation. CABG ASHD. DM type on Levemir/Januvia. CRI/ckd 4. 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 Previous Thoracentesis in the past-neg for malignancy. JUAN-at nights using CPAP. Chronic A.Fib. Combined CHF. Gout. Gouty arthritis. Previous rectal surgery for abscess, fistula at [facility]. - Current Medication List Current Medications: Active Medications Acetaminophen (Tylenol -) 650 mg PO Q6H PRN PRN Reason: HEADACHE Last Admin: 11/14/18 10:43 Dose: 650 mg Albuterol Sulfate (Ventolin 0.5% -) 1 amp NEB Q4H PRN PRN Reason: SHORT OF BREATH/WHEEZING Apixaban (Eliquis -) 2.5 mg PO BID [facility] Last Admin: 11/15/18 21:07 Dose: 2.5 mg Aspirin (Asa -) 81 mg PO DAILY [facility] Last Admin: 11/15/18 09:29 Dose: 81 mg Bisacodyl (Dulcolax Suppository -) 10 mg [place] DAILY PRN PRN Reason: CONSTIPATION Last Admin: 11/15/18 11:47 Dose: 10 mg Colchicine (Colcrys) 0.6 mg PO BID [facility] Last Admin: 11/15/18 21:07 Dose: 0.6 mg Febuxostat (Uloric -) 40 mg PO DAILY [facility] Last Admin: 11/15/18 09:30 Dose: 40 mg Furosemide (Lasix Injection -) 120 mg IVPB BID@0600,1400 [facility] Last Admin: 11/15/18 14:01 Dose: 120 mg Insulin Aspart (Novolog Vial Sliding Scale -) 0 vial SQ ACHS [facility]; Protocol Last Admin: 11/16/18 06:11 Dose: 4 units Insulin Detemir (Levemir Vial) 5 units SQ BID@0700,2200 [facility] Last Admin: 11/16/18 06:11 Dose: 5 units Levothyroxine Sodium (Synthroid -) 50 mcg PO DAILY@0700 [facility] Last Admin: 11/16/18 06:12 Dose: 50 mcg Metoprolol Succinate (Toprol Xl -) 50 mg PO BID [facility] Last Admin: 11/15/18 21:07 Dose: 50 mg Pantoprazole Sodium (Protonix Iv) 40 mg IVPUSH DAILY [facility] Last Admin: 11/15/18 09:29 Dose: 40 mg Polyethylene Glycol (Miralax (For Daily Use) -) 17 gm PO BID [facility] Last Admin: 11/15/18 21:08 Dose: Not Given - Objective Vital Signs: Vital Signs Temperature 97.7 F 11/15/18 18:14 Pulse Rate 78 11/16/18 05:58 Respiratory Rate 20 11/16/18 05:58 Blood Pressure 126/99 11/16/18 05:58 O2 Sat by Pulse Oximetry (%) 96 11/16/18 02:51 Constitutional: Yes: Anxious, Mild Distress Eyes: Yes: Conjunctiva Clear, EOM Intact HENT: Yes: Atraumatic, Normocephalic Neck: Yes: Supple, Trachea Midline. No: Lymphadenopathy, Rigid, Tenderness Cardiovascular: Yes: Pulse Irregular, S1, S2. No: Bradycardia, Tachycardia Respiratory: Yes: Diminished (B/L) Gastrointestinal: Yes: Normal Bowel Sounds, Soft, Abdomen, Obese ...Rectal Exam: Yes: Deferred Genitourinary: No: Anuria, Bladder Distention, CVA Tenderness - Left, CVA Tenderness - Right Breast(s): Yes: WNL Musculoskeletal: Yes: Muscle Weakness. No: Joint Swelling Edema: No Peripheral Pulses WNL: No Integumentary: Yes: WNL Neurological: Yes: Alert. No: Aphasia, Dysarthria ...Motor Strength: WNL Psychiatric: Yes: Alert. No: Agitated, Suicidal Ideation Labs: CBC, BMP 11/16/18 05:48 11/16/18 05:48 INR, PTT INR 1.08 (0.83-1.09) 11/04/18 19:55 Problem List - Problems (1) Acute kidney injury superimposed on CKD Assessment/Plan: Noted BUN/Creat-80/2.0 OFF Metolazone for now, Lasix on Hold Follow electrolytes Code(s): N17.9 - ACUTE KIDNEY FAILURE, UNSPECIFIED; N18.9 - CHRONIC KIDNEY DISEASE, UNSPECIFIED (2) Acute on chronic respiratory failure with hypoxia and hypercapnia Assessment/Plan: BIPAP, NIV OFF steroids ABG now with Ph7.53 c/w alkalosis,triple respiratory disorder-metabolic alkalosis from contravtion/diuretics, respiratory acidosis and alkalosis. Repeat ABG Code(s): J96.21 - ACUTE AND CHRONIC RESPIRATORY FAILURE WITH HYPOXIA; J96.22 - ACUTE AND CHRONIC RESPIRATORY FAILURE WITH HYPERCAPNIA (3) Acute on chronic systolic (congestive) heart failure Assessment/Plan: Lasix IV on hold OFF Metolazone. Code(s): I50.23 - ACUTE ON CHRONIC SYSTOLIC (CONGESTIVE) HEART FAILURE (4) CKD (chronic kidney disease) Assessment/Plan: Follow BUN/Creat Code(s): N18.9 - CHRONIC KIDNEY DISEASE, UNSPECIFIED Qualifiers: Chronic kidney disease stage: stage 3 (moderate) Qualified Code(s): N18.3 - Chronic kidney disease, stage 3 (moderate) (5) Diabetes 1.5, managed as type 2 Assessment/Plan: Controlled BGM No episodes of low BGM Novolog coverage. Code(s): E13.9 - OTHER SPECIFIED DIABETES MELLITUS WITHOUT COMPLICATIONS (6) DNR (do not resuscitate) discussion Assessment/Plan: DNR/DNI , D/C planning discussed with the . . Code(s): Z71.89 - OTHER SPECIFIED COUNSELING (7) Hyponatremia Assessment/Plan: Liberalize salt in diet Hyponatremia due to diuretics-now Lasix on hold. Code(s): E87.1 - HYPO-OSMOLALITY AND HYPONATREMIA
[2018-11-16 08:52] LABS: ANISOCYTOSIS 1+; MACROCYTOSIS 1+; OVALOCYTE 1+; PLATELET ESTIMATE NORMAL
--- NOTE | 2018-11-16 09:19 | PN ---
Physical Exam: SUBJECTIVE: Patient seen and examined at bedside. pt states he does not feel pain or have SOB. pt states he feels very fatigued. OBJECTIVE: Vital Signs Period Temp Pulse Resp BP Sys/Junior Pulse Ox Last 24 Hr 97.7 F-98.6 F 56-99 19-23 84-126/60-99 95-97 GENERAL: The patient is awake, alert, and fully oriented, in no acute distress. LUNGS: decreased breath sounds at bases, no accessory muscle use. HEART: Regular rate and rhythm, S1, S2 without murmur, rub or gallop. ABDOMEN: Soft, nontender, nondistended, normoactive bowel sounds, no guarding. EXTREMITIES: 2+ pulses, warm, well-perfused, no edema. SKIN: Warm, dry, normal turgor, no rashes or lesions noted Laboratory Last Values WBC 9.1 K/mm3 (4.0-10.0) 11/16/18 05:48 RBC 4.89 M/mm3 (4.00-5.60) 11/16/18 05:48 Hgb 14.4 GM/dL (11.7-16.9) 11/16/18 05:48 Hct 43.1 % (35.4-49) 11/16/18 05:48 MCV 88.1 fl (80-96) 11/16/18 05:48 MCH 29.5 pg (25.7-33.7) 11/16/18 05:48 MCHC 33.4 g/dl (32.0-35.9) 11/16/18 05:48 RDW 17.9 % (11.9-15.9) H 11/16/18 05:48 Plt Count 247 K/MM3 (134-434) 11/16/18 05:48 MPV 8.6 fl (7.5-11.1) 11/16/18 05:48 Absolute Neuts (auto) 6.9 K/mm3 (1.5-8.0) 11/16/18 05:48 Neutrophils % 75.6 % (42.8-82.8) 11/16/18 05:48 Neutrophils % (Manual) 57.0 % (42.8-82.8) 11/16/18 05:48 Band Neutrophils % 4.0 % 11/16/18 05:48 Lymphocytes % 12.0 % (8-40) D 11/16/18 05:48 Lymphocytes % (Manual) 10.0 % (8-40) D 11/16/18 05:48 Monocytes % 9.6 % (3.8-10.2) 11/16/18 05:48 Monocytes % (Manual) 10 % (3.8-10.2) 11/16/18 05:48 Eosinophils % 2.2 % (0-4.5) 11/16/18 05:48 Eosinophils % (Manual) 3.0 % (0-4.5) 11/16/18 05:48 Basophils % 0.6 % (0-2.0) 11/16/18 05:48 Basophils % (Manual) 0.0 % (0-2.0) 11/16/18 05:48 Myelocytes % (Man) 0 % (0-2) 11/16/18 05:48 Promyelocytes % (Man) 0 % (0-2) 11/16/18 05:48 Blast Cells % (Manual) 0 % (0-0) 11/16/18 05:48 Nucleated RBC % 0 % (0-0) 11/16/18 05:48 Metamyelocytes 1 % (0-2) D 11/16/18 05:48 Hypochromia 1+ 11/16/18 05:48 Platelet Estimate Normal 11/16/18 05:48 Platelet Comment Present 11/16/18 05:48 Polychromasia 1+ 11/16/18 05:48 Poikilocytosis 0 11/16/18 05:48 Basophilic Stippling 2+ 11/16/18 05:48 Anisocytosis 1+ 11/16/18 05:48 Microcytosis 1+ 11/16/18 05:48 Macrocytosis 1+ 11/16/18 05:48 Spherocytes 1+ 11/16/18 05:48 Ovalocytes 1+ 11/16/18 05:48 Stomatocytes 1+ 11/16/18 05:48 Acanthocytes (Spur) 1+ 11/16/18 05:48 PT with INR 12.80 SEC (9.7-13.0) 11/04/18 19:55 INR 1.08 (0.83-1.09) 11/04/18 19:55 PTT (Actin FS) 31.4 SECONDS (25.2-36.5) 11/04/18 20:22 Anticoagulation Therapy No Result Required. 11/15/18 13:10 Puncture Site Right radial 11/15/18 13:10 ABG pH 7.53 (7.35-7.45) H 11/15/18 13:10 ABG pCO2 at Pt Temp 49.3 mmHg (35-45) H 11/15/18 13:10 ABG pO2 at Pt Temp 66.2 mmHg (80-100) L 11/15/18 13:10 ABG HCO3 40.6 mmol/L (22-27) H 11/15/18 13:10 ABG O2 Sat (Measured) 94.0 % (95-98) L 11/15/18 13:10 ABG O2 Content 18.9 % vol 11/15/18 13:10 ABG Base Excess 15.2 meq/l (-2-2) H 11/15/18 13:10 Esteban Test Positive 11/15/18 13:10 O2 Delivery Device No Result Required. 11/15/18 13:10 Oxygen Flow Rate No 11/15/18 13:10 Vent Mode No Result Required. 11/15/18 13:10 Vent Rate No Result Required. 11/15/18 13:10 Mechanical Rate No Result Required. 11/15/18 13:10 Pressure Support Vent No Result Required. 11/15/18 13:10 Sodium 131 mmol/L (136-145) L 11/16/18 05:48 Potassium 3.6 mmol/L (3.5-5.1) 11/16/18 05:48 Chloride 79 mmol/L (98-107) L 11/16/18 05:48 Carbon Dioxide > 45 mmol/L (21-32) H 11/16/18 05:48 Anion Gap 7 MMOL/L (8-16) L 11/16/18 05:48 BUN 80.0 mg/dL (7-18) H 11/16/18 05:48 Creatinine 2.0 mg/dL (0.55-1.3) H 11/16/18 05:48 Est GFR (CKD-EPI)AfAm 33.78 11/16/18 05:48 Est GFR (CKD-EPI)NonAf 29.14 11/16/18 05:48 POC Glucometer 236 UNITS (80-120) 11/16/18 05:49 Random Glucose 245 mg/dL (74-106) H 11/16/18 05:48 Calcium 8.7 mg/dL (8.5-10.1) 11/16/18 05:48 Phosphorus 4.7 mg/dL (2.5-4.9) 11/16/18 05:48 Magnesium 2.5 mg/dL (1.8-2.4) H 11/16/18 05:48 Total Bilirubin 0.5 mg/dL (0.2-1) 11/16/18 05:48 AST 25 U/L (15-37) 11/16/18 05:48 ALT 59 U/L (13-61) 11/16/18 05:48 Alkaline Phosphatase 108 U/L (45-117) 11/16/18 05:48 Creatine Kinase 27 U/L (26-308) 11/04/18 19:55 Troponin I < 0.02 ng/ml (0.00-0.05) 11/05/18 08:45 B-Natriuretic Peptide 3504.8 pg/ml (5-450) H 11/04/18 19:55 Total Protein 6.0 g/dl (6.4-8.2) L 11/16/18 05:48 Albumin 3.2 g/dl (3.4-5.0) L 11/16/18 05:48 Current Medications Acetaminophen (Tylenol -) 650 mg PO Q6H PRN PRN Reason: HEADACHE Last Admin: 11/14/18 10:43 Dose: 650 mg Albuterol Sulfate (Ventolin 0.5% -) 1 amp NEB Q4H PRN PRN Reason: SHORT OF BREATH/WHEEZING Apixaban (Eliquis -) 2.5 mg PO BID [facility] Last Admin: 11/15/18 21:07 Dose: 2.5 mg Aspirin (Asa -) 81 mg PO DAILY [facility] Last Admin: 11/15/18 09:29 Dose: 81 mg Bisacodyl (Dulcolax Suppository -) 10 mg [place] DAILY PRN PRN Reason: CONSTIPATION Last Admin: 11/15/18 11:47 Dose: 10 mg Colchicine (Colcrys) 0.6 mg PO BID [facility] Last Admin: 11/15/18 21:07 Dose: 0.6 mg Febuxostat (Uloric -) 40 mg PO DAILY [facility] Last Admin: 11/15/18 09:30 Dose: 40 mg Furosemide (Lasix Injection -) 120 mg IVPB BID@0600,1400 [facility] Last Admin: 11/15/18 14:01 Dose: 120 mg Insulin Aspart (Novolog Vial Sliding Scale -) 0 vial SQ ACHS [facility]; Protocol Last Admin: 11/16/18 06:11 Dose: 4 units Insulin Detemir (Levemir Vial) 5 units SQ BID@0700,2200 [facility] Last Admin: 11/16/18 06:11 Dose: 5 units Levothyroxine Sodium (Synthroid -) 50 mcg PO DAILY@0700 [facility] Last Admin: 11/16/18 06:12 Dose: 50 mcg Metoprolol Succinate (Toprol Xl -) 50 mg PO BID [facility] Last Admin: 11/15/18 21:07 Dose: 50 mg Pantoprazole Sodium (Protonix Iv) 40 mg IVPUSH DAILY [facility] Last Admin: 11/15/18 09:29 Dose: 40 mg Polyethylene Glycol (Miralax (For Daily Use) -) 17 gm PO BID [facility] Last Admin: 11/15/18 21:08 Dose: Not Given ASSESSMENT/PLAN: 88 yo M PMH CHF, HTN, HLD, CAD, COPD, ILD, DM, COUT, UC, BPH, mild dementia in ICU for Acute on Chronic hypoxic, hypercapneic respiratory failure and acute on chronic systolic heart failure. Cardio - acute on chronic systolic heart failure - cardiology recs appreciated - continue to hold lasix - continue telemetry monitoring - c/w ASA, metoprolol PULM: -Acute on Chronic hypoxic hypercapneic respiratory failure - Likely 2/2 exacerbation of COPD vs. CHF vs. ILD - Maintain saturation >88% - Saturating well on 4.5L NC - PM BiPaP - Atrovent - Nebs prn RENAL: contraction metabolic alkalosis likely 2/2 lasix - Daily BUN slowly increasing 65.9 > 71 > 76.3 > 81.6 - Daily Cr stable - 11/15/18 ABG demonstrating pH 7.54, pO2 66.2, pCO2 49.3; previous ABG pH 7.42, pO2 92. Awaiting rpt ABG - Discussed w/ cardiology; will continue to hold lasix GI: -c/w PPI - Speech/Swallow eval appreciated: dysphagia diet ENDO: -IDDM; hypothyroidism - Levemir 5U BID - ISS, BGM - c/w synthroid RHEUM: -GOUT - dc prednisone - c/w febuxostat, cholchine MSK: - deconditioning - PT -may benefit from MANDY DVT PPX: - eliquis 2.5 DISPO: transfer to telemetry . MANDY on d/c Visit type - Emergency Visit Emergency Visit: No - New Patient This patient is new to me today: Yes Date on this admission: 11/16/18 - Critical Care Critical Care patient: Yes Total Critical Care Time (in minutes): 36 Critical Care Statement: The care of this patient involved high complexity decision making to prevent further life threatening deterioration of the patient 's condition and/or to evaluate & treat vital organ system(s) failure or risk of failure. - Discharge Referral Referred to [facility] No ATTENDING PHYSICIAN STATEMENT I saw and evaluated the patient. I reviewed the resident's note and discussed the case with the resident. I agree with the resident's findings and plan as documented. SUBJECTIVE: OBJECTIVE: ASSESSMENT AND PLAN:
[2018-11-16] MEDS: ASPIRIN 81 MG CHEWABLE TABLETS PO SCH (09:39)
[2018-11-16] MEDS: COLCHICINE 0.6 MG CAP PO SCH ×2 (09:39→22:48)
[2018-11-16] MEDS: PANTOPRAZOLE SODIUM 40 MG VIAL IVPUSH SCH (09:39)
[2018-11-16] MEDS: APIXABAN 2.5 MG TABLET PO SCH ×2 (09:39→22:48)
[2018-11-16] MEDS: FEBUXOSTAT 40 MG TAB PO SCH (09:40)
[2018-11-16] MEDS: POLYETHYLENE GLYCOL 3350 119 GM BTL PO SCH ×2 (09:48→22:48)
--- NOTE | 2018-11-16 10:27 | PN ---
Progress Note (short form) - Note Progress Note: s: no chest pain, palps, dizziness. dyspnea improving. Current Medications Generic Name Dose Route Start Last Admin Trade Name Freq PRN Reason Stop Dose Admin Acetaminophen 650 mg 11/08/18 11:28 11/14/18 10:43 Tylenol - PO 650 mg Q6H PRN Administration HEADACHE Apixaban 2.5 mg 11/05/18 01:00 11/16/18 09:39 Eliquis - PO 2.5 mg BID JOE Administration Aspirin 81 mg 11/05/18 10:00 11/16/18 09:39 Asa - PO 81 mg DAILY JOE Administration Bisacodyl 10 mg 11/08/18 08:37 11/15/18 11:47 Dulcolax Suppository - NJ 10 mg DAILY PRN Administration CONSTIPATION Colchicine 0.6 mg 11/05/18 10:00 11/16/18 09:39 Colcrys PO 0.6 mg BID JOE Administration Febuxostat 40 mg 11/05/18 10:00 11/16/18 09:40 Uloric - PO 40 mg DAILY JOE Administration Furosemide 120 mg 11/12/18 10:41 11/15/18 14:01 Lasix Injection - IVPB 120 mg BID@0600,1400 JOE Administration Insulin Aspart 0 vial 11/04/18 22:00 11/16/18 06:11 Novolog Vial Sliding Scale - SQ 4 units ACHS JOE Administration Protocol Insulin Detemir 5 units 11/11/18 12:00 11/16/18 06:11 Levemir Vial SQ 5 units BID@0700,2200 JOE Administration Levothyroxine Sodium 50 mcg 11/05/18 08:05 11/16/18 06:12 Synthroid - PO 50 mcg DAILY@0700 JOE Administration Metoprolol Succinate 50 mg 11/05/18 10:00 11/16/18 09:40 Toprol Xl - PO 50 mg BID JOE Administration Pantoprazole Sodium 40 mg 11/07/18 10:00 11/16/18 09:39 Protonix Iv IVPUSH 40 mg DAILY JOE Administration Polyethylene Glycol 17 gm 11/08/18 10:00 11/16/18 09:48 Miralax (For Daily Use) - PO 17 gm BID JOE Administration Vital Signs Period Temp Pulse Resp BP Sys/Junior Pulse Ox Last 24 Hr 97.7 F-98.6 F 56-99 19-21 84-126/60-99 95-99 Constitutional: Yes: No Distress, Calm Eyes: No: Sclera Icterus HENT: No: Nasal Congestion Cardiovascular: Yes: Regular Rate and Rhythm, S1, S2, Other (PMI non diplaced). No: JVD (prohibitively tds exam), Gallop, Murmur Respiratory: Yes: CTA Bilaterally. No: Accessory Muscle Use, Rales, Wheezes Gastrointestinal: Yes: Normal Bowel Sounds, Soft. No: Tenderness Musculoskeletal: Yes: Other (No kyphosis) Extremities: No: Cyanosis Edema: No Integumentary: No: Jaundice Neurological: Yes: Alert, Oriented (x3) Psychiatric: No: Agitated CBC, BMP 11/16/18 05:48 11/16/18 05:48 Assessment/Plan Echo 04/2018: EF 45%, mod MR/TR, at least mild , moderate to severe PHTN Nuclear stress 2017: Pharm: small inferolat infarct, mild arlin-infarct ischemia , Overall EF 35-40% CXR: "vs prior, again noted is...congestive changes" ECG: afib, nonsp TWA lateral leads--no change vs prior tele: afib, HR controlled IMP: -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 (home regimen: torsemide 100 bid, spironolactone 25, metopr. no BETTY/ARB due to CKD) -Chronic respiratory failure -Asbestos lung dz/ ILD, on home O2. 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 cr stable. daily chem7, wts. -tele monitoring
--- NOTE | 2018-11-16 11:24 | PN ---
Progress Note, Physician History of Present Illness: says he is not doing well swallowing issues more sleepy - Current Medication List Current Medications: Active Medications Acetaminophen (Tylenol -) 650 mg PO Q6H PRN PRN Reason: HEADACHE Last Admin: 11/14/18 10:43 Dose: 650 mg Apixaban (Eliquis -) 2.5 mg PO BID [facility] Last Admin: 11/16/18 09:39 Dose: 2.5 mg Aspirin (Asa -) 81 mg PO DAILY [facility] Last Admin: 11/16/18 09:39 Dose: 81 mg Bisacodyl (Dulcolax Suppository -) 10 mg [place] DAILY PRN PRN Reason: CONSTIPATION Last Admin: 11/15/18 11:47 Dose: 10 mg Colchicine (Colcrys) 0.6 mg PO BID [facility] Last Admin: 11/16/18 09:39 Dose: 0.6 mg Febuxostat (Uloric -) 40 mg PO DAILY [facility] Last Admin: 11/16/18 09:40 Dose: 40 mg Furosemide (Lasix Injection -) 120 mg IVPB BID@0600,1400 [facility] Last Admin: 11/15/18 14:01 Dose: 120 mg Insulin Aspart (Novolog Vial Sliding Scale -) 0 vial SQ ACHS [facility]; Protocol Last Admin: 11/16/18 11:18 Dose: 6 units Insulin Detemir (Levemir Vial) 5 units SQ BID@0700,2200 [facility] Last Admin: 11/16/18 06:11 Dose: 5 units Levothyroxine Sodium (Synthroid -) 50 mcg PO DAILY@0700 [facility] Last Admin: 11/16/18 06:12 Dose: 50 mcg Metoprolol Succinate (Toprol Xl -) 50 mg PO BID [facility] Last Admin: 11/16/18 09:40 Dose: 50 mg Pantoprazole Sodium (Protonix Iv) 40 mg IVPUSH DAILY [facility] Last Admin: 11/16/18 09:39 Dose: 40 mg Polyethylene Glycol (Miralax (For Daily Use) -) 17 gm PO BID [facility] Last Admin: 11/16/18 09:48 Dose: 17 gm - Objective Vital Signs: Vital Signs Temperature 97.4 F L 11/16/18 10:00 Pulse Rate 74 11/16/18 10:00 Respiratory Rate 20 11/16/18 10:00 Blood Pressure 100/68 11/16/18 10:00 O2 Sat by Pulse Oximetry (%) 99 11/16/18 08:00 Constitutional: Yes: No Distress, Calm Cardiovascular: Yes: Regular Rate and Rhythm Respiratory: Yes: Regular, On Nasal O2 Gastrointestinal: Yes: Normal Bowel Sounds, Soft Musculoskeletal: Yes: WNL Extremities: Yes: WNL Neurological: Yes: Alert, Oriented Psychiatric: Yes: Alert, Oriented Labs: CBC, BMP 11/16/18 05:48 11/16/18 05:48 INR, PTT INR 1.08 (0.83-1.09) 11/04/18 19:55 Assessment/Plan Problem List - Problems (1) Atrial fibrillation Code(s): I48.91 - UNSPECIFIED ATRIAL FIBRILLATION Qualifiers: (2) CHF, acute on chronic Code(s): I50.9 - HEART FAILURE, UNSPECIFIED Qualifiers: (3) COPD (chronic obstructive pulmonary disease) Code(s): J44.9 - CHRONIC OBSTRUCTIVE PULMONARY DISEASE, UNSPECIFIED (4) Hypoxemia Code(s): R09.02 - HYPOXEMIA (5) ASHD (arteriosclerotic heart disease) Code(s): I25.10 - ATHSCL HEART DISEASE OF [place] CORONARY ARTERY W/O ANG PCTRS (6) Acute kidney injury superimposed on CKD Code(s): N17.9 - ACUTE KIDNEY FAILURE, UNSPECIFIED; N18.9 - CHRONIC KIDNEY DISEASE, UNSPECIFIED (7) Acute on chronic respiratory failure with hypoxia and hypercapnia Code(s): J96.21 - ACUTE AND CHRONIC RESPIRATORY FAILURE WITH HYPOXIA; J96.22 - ACUTE AND CHRONIC RESPIRATORY FAILURE WITH HYPERCAPNIA (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 - OTHER SPECIFIED PLEURAL CONDITIONS (9) CAD (coronary artery disease) Code(s): I25.10 - ATHSCL HEART DISEASE OF [place] CORONARY ARTERY W/O ANG PCTRS Qualifiers: Coronary Disease-Associated Artery/Lesion type: bypass graft, autologous artery Associated angina: without angina Qualified Code(s): I25.810 - Atherosclerosis of coronary artery bypass graft(s) without angina pectoris (10) DM type 2 (diabetes mellitus, type 2) Code(s): E11.9 - TYPE 2 DIABETES MELLITUS WITHOUT COMPLICATIONS Qualifiers: Diabetes mellitus compliance engineer products insulin use: with snf use Chronic kidney disease stage: stage 4 (severe) (11) HTN (hypertension) Code(s): I10 - ESSENTIAL (PRIMARY) HYPERTENSION (12) S/P CABG (coronary artery bypass graft) Code(s): Z95.1 - PRESENCE OF AORTOCORONARY BYPASS GRAFT Assessment/Plan 88 y.o. 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
--- NOTE | 2018-11-16 11:48 | PN ---
Teaching Attending Note Name of Resident: Elizabeth Bonilla ATTENDING PHYSICIAN STATEMENT I saw and evaluated the patient. I reviewed the resident's note and discussed the case with the resident. I agree with the resident's findings and plan as documented. SUBJECTIVE: Pt seen and examined in the ICU. No specific complaints. Denies shortness of breath or chest pain. ABG yesterday showing metabolic alkalosis. OBJECTIVE: Vital Signs Period Temp Pulse Resp BP Sys/Junior Pulse Ox Last 24 Hr 97.4 F-98.6 F 56-99 19-21 84-126/60-99 95-99 Intake & Output 11/13/18 11/14/18 11/15/18 11/16/18 23:59 23:59 23:59 23:59 Intake Total 650 1340 500 40 Output Total 1550 2200 2350 175 Balance -900 -860 -1850 -135 Weight 110.268 kg 107.184 kg 103.901 kg 100.953 kg Gen: NAD at rest Heart: RRR Lung: decreased breath sounds at the bases Abd: soft, nontender Ext: no edema CBC, BMP 11/16/18 05:48 11/16/18 05:48 Active Medications Acetaminophen (Tylenol -) 650 mg PO Q6H PRN PRN Reason: HEADACHE Last Admin: 11/14/18 10:43 Dose: 650 mg Apixaban (Eliquis -) 2.5 mg PO BID [facility] Last Admin: 11/16/18 09:39 Dose: 2.5 mg Aspirin (Asa -) 81 mg PO DAILY [facility] Last Admin: 11/16/18 09:39 Dose: 81 mg Bisacodyl (Dulcolax Suppository -) 10 mg [place] DAILY PRN PRN Reason: CONSTIPATION Last Admin: 11/15/18 11:47 Dose: 10 mg Colchicine (Colcrys) 0.6 mg PO BID [facility] Last Admin: 11/16/18 09:39 Dose: 0.6 mg Febuxostat (Uloric -) 40 mg PO DAILY [facility] Last Admin: 11/16/18 09:40 Dose: 40 mg Furosemide (Lasix Injection -) 120 mg IVPB BID@0600,1400 [facility] Last Admin: 11/15/18 14:01 Dose: 120 mg Insulin Aspart (Novolog Vial Sliding Scale -) 0 vial SQ ACHS [facility]; Protocol Last Admin: 11/16/18 11:18 Dose: 6 units Insulin Detemir (Levemir Vial) 5 units SQ BID@0700,2200 [facility] Last Admin: 11/16/18 06:11 Dose: 5 units Levothyroxine Sodium (Synthroid -) 50 mcg PO DAILY@0700 [facility] Last Admin: 11/16/18 06:12 Dose: 50 mcg Metoprolol Succinate (Toprol Xl -) 50 mg PO BID [facility] Last Admin: 11/16/18 09:40 Dose: 50 mg Pantoprazole Sodium (Protonix Iv) 40 mg IVPUSH DAILY [facility] Last Admin: 11/16/18 09:39 Dose: 40 mg Polyethylene Glycol (Miralax (For Daily Use) -) 17 gm PO BID [facility] Last Admin: 11/16/18 09:48 Dose: 17 gm ASSESSMENT AND PLAN: Acute on Chronic Hypoxic and Hypercapneic Respiratory Failure improving Acute on Chronic Systolic Heart Failure r/o Acute COPD Exacerbation Interstitial Lung Disease Pulmonary HTN Atrial Fibrillation CAD s/p CABG Acute on Chronic Renal Failure JUAN - would hold lasix today - monitor urine output, creatinine - monitor off steroids - inhaled bronchodilators - rate control - continue anticoagulation - BiPAP at night and as needed during day - check ABG on home O2 when ready for discharge to assess for home NIPPV - O2 to keep SpO2 88-92% - can monitor on floor - d/c planning
[2018-11-16] MEDS: ACETAMINOPHEN 325 MG TABLET (FP) PO PRN (14:57)
[2018-11-17] MEDS: FUROSEMIDE 40 MG/4 ML INJECTABLE VIAL IVPB SCH ×2 (06:42→15:39)
[2018-11-17] MEDS: INSULIN SLIDING SCALE (NOVOLOG) 1 VIAL SQ SCH ×4 (06:56→21:50)
[2018-11-17] MEDS: INSULIN (LEVEMIR) 100 UNITS/ML UNITS SQ SCH ×2 (06:56→21:50)
[2018-11-17] MEDS: LEVOTHYROXINE NA 50 MCG TABLET (FP) PO SCH (06:56)
[2018-11-17 07:36] LABS: BASO % 0.9 % (0-2.0); EOS % 1.5 % (0-4.5); HEMOGLOBIN 14.1 GM/dL (11.7-16.9); LYMPH % 12.9 % (8-40); MCH 29.3 pg (25.7-33.7); MCHC 32.9 g/dl (32.0-35.9); MEAN CELL VOLUME 89.2 fl (80-96); MONO % 10.6 % (3.8-10.2); NEUT % 74.1 % (42.8-82.8); PLATELET COUNT 222 K/MM3 (134-434); RBC 4.82 M/mm3 (4.00-5.60); RDW 17.9 % (11.9-15.9); WHITE BLOOD COUNT 9.2 K/mm3 (4.0-10.0)
[2018-11-17 07:55] LABS: ALBUMIN 3.2 g/dl (3.4-5.0); BILIRUBIN,TOTAL 0.6 mg/dL (0.2-1); BLOOD UREA NITROGEN 67.6 mg/dL (7-18); CALCIUM 8.6 mg/dL (8.5-10.1); CREATININE 1.7 mg/dL (0.55-1.3); MAGNESIUM 2.5 mg/dL (1.8-2.4); PHOSPHOROUS 3.5 mg/dL (2.5-4.9); POTASSIUM 3.6 mmol/L (3.5-5.1)
--- NOTE | 2018-11-17 08:44 | PN ---
Progress Note, Physician Chief Complaint: c/o weakness when standing. TELE: AF controlled, rare VPCs History of Present Illness: weight was down to 222lbs - Current Medication List Current Medications: Active Medications Acetaminophen (Tylenol -) 650 mg PO Q6H PRN PRN Reason: HEADACHE Apixaban (Eliquis -) 2.5 mg PO BID [facility] Last Admin: 11/16/18 22:48 Dose: 2.5 mg Aspirin (Asa -) 81 mg PO DAILY [facility] Bisacodyl (Dulcolax Suppository -) 10 mg [place] DAILY PRN PRN Reason: CONSTIPATION Colchicine (Colcrys) 0.6 mg PO BID [facility] Last Admin: 11/16/18 22:48 Dose: 0.6 mg Febuxostat (Uloric -) 40 mg PO DAILY [facility] Furosemide (Lasix Injection -) 120 mg IVPB BID@0600,1400 [facility] Last Admin: 11/17/18 06:42 Dose: Not Given Insulin Aspart (Novolog Vial Sliding Scale -) [address] [facility]; Protocol Last Admin: 11/17/18 06:56 Dose: Not Given Insulin Detemir (Levemir Vial) 5 units SQ BID@0700,2200 [facility] Last Admin: 11/17/18 06:56 Dose: 5 units Levothyroxine Sodium (Synthroid -) 50 mcg PO DAILY@0700 [facility] Last Admin: 11/17/18 06:56 Dose: 50 mcg Metoprolol Succinate (Toprol Xl -) 50 mg PO BID [facility] Last Admin: 11/16/18 22:46 Dose: Not Given Pantoprazole Sodium (Protonix Iv) 40 mg IVPUSH DAILY [facility] Polyethylene Glycol (Miralax (For Daily Use) -) 17 gm PO BID [facility] Last Admin: 11/16/18 22:48 Dose: 17 gm - Objective Vital Signs: Vital Signs Temperature 97.6 F 11/17/18 06:00 Pulse Rate 82 11/17/18 06:00 Respiratory Rate 20 11/17/18 06:00 Blood Pressure 99/64 11/17/18 06:00 O2 Sat by Pulse Oximetry (%) 99 11/17/18 00:44 Constitutional: Yes: No Distress Cardiovascular: Yes: Pulse Irregular Respiratory: Yes: Other (decreased breath sounds bl, rhonchi, no active wheezing. No rales.) Gastrointestinal: Yes: Soft, Abdomen, Obese Edema: No Neurological: Yes: Alert Labs: CBC, BMP 11/17/18 06:15 11/17/18 06:15 INR, PTT INR 1.08 (0.83-1.09) 11/04/18 19:55 Laboratory Tests 11/17/18 11/17/18 06:15 06:15 WBC 9.2 Hgb 14.1 Plt Count 222 Sodium 134 L Potassium 3.6 BUN 67.6 H Creatinine 1.7 H - ....Imaging EKG: Image Reviewed Assessment/Plan Assessment/Plan Echo 04/2018: EF 45%, mod MR/TR, at least mild , moderate to severe PHTN Nuclear stress 2017: Pharm: small inferolat infarct, mild arlin-infarct ischemia , Overall EF 35-40% tele: afib, HR controlled IMP: -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 (home regimen: torsemide 100 bid, spironolactone 25, metopr. no BETTY/ARB due to CKD) -Chronic respiratory failure -Asbestos lung dz/ ILD, on home O2. 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 Creat has remained generally stable. -Consider transition to PO diuretics in next 24 hours. -To continue AC for AF -Possible rehab for PT -Supp O2
--- NOTE | 2018-11-17 10:04 | PN ---
Progress Note, Physician History of Present Illness: stable no new issues weak - Current Medication List Current Medications: Active Medications Acetaminophen (Tylenol -) 650 mg PO Q6H PRN PRN Reason: HEADACHE Apixaban (Eliquis -) 2.5 mg PO BID [facility] Last Admin: 11/16/18 22:48 Dose: 2.5 mg Aspirin (Asa -) 81 mg PO DAILY [facility] Bisacodyl (Dulcolax Suppository -) 10 mg [place] DAILY PRN PRN Reason: CONSTIPATION Colchicine (Colcrys) 0.6 mg PO BID [facility] Last Admin: 11/16/18 22:48 Dose: 0.6 mg Febuxostat (Uloric -) 40 mg PO DAILY [facility] Furosemide (Lasix Injection -) 120 mg IVPB BID@0600,1400 [facility] Last Admin: 11/17/18 06:42 Dose: Not Given Insulin Aspart (Novolog Vial Sliding Scale -) 1 vial SQ [facility]; Protocol Last Admin: 11/17/18 06:56 Dose: Not Given Insulin Detemir (Levemir Vial) 10 units SQ BID@0700,2200 [facility] Levothyroxine Sodium (Synthroid -) 50 mcg PO DAILY@0700 [facility] Last Admin: 11/17/18 06:56 Dose: 50 mcg Metoprolol Succinate (Toprol Xl -) 50 mg PO BID [facility] Last Admin: 11/16/18 22:46 Dose: Not Given Pantoprazole Sodium (Protonix Iv) 40 mg IVPUSH DAILY [facility] Polyethylene Glycol (Miralax (For Daily Use) -) 17 gm PO BID [facility] Last Admin: 11/16/18 22:48 Dose: 17 gm - Objective Vital Signs: Vital Signs Temperature 97.6 F 11/17/18 06:00 Pulse Rate 82 11/17/18 06:00 Respiratory Rate 20 11/17/18 06:00 Blood Pressure 99/64 11/17/18 06:00 O2 Sat by Pulse Oximetry (%) 99 11/17/18 00:44 Constitutional: Yes: No Distress, Calm, Obese Neck: Yes: Supple Cardiovascular: Yes: S1, S2 Respiratory: Yes: Regular, On Nasal O2, Poor Air Entry Gastrointestinal: Yes: Normal Bowel Sounds, Soft Musculoskeletal: Yes: WNL Extremities: Yes: WNL Neurological: Yes: Alert, Oriented Psychiatric: Yes: Alert, Oriented Labs: CBC, BMP 11/17/18 06:15 11/17/18 06:15 INR, PTT INR 1.08 (0.83-1.09) 11/04/18 19:55 Assessment/Plan Problem List - Problems (1) Atrial fibrillation Code(s): I48.91 - UNSPECIFIED ATRIAL FIBRILLATION Qualifiers: (2) CHF, acute on chronic Code(s): I50.9 - HEART FAILURE, UNSPECIFIED Qualifiers: (3) COPD (chronic obstructive pulmonary disease) Code(s): J44.9 - CHRONIC OBSTRUCTIVE PULMONARY DISEASE, UNSPECIFIED (4) Hypoxemia Code(s): R09.02 - HYPOXEMIA (5) ASHD (arteriosclerotic heart disease) Code(s): I25.10 - ATHSCL HEART DISEASE OF [place] CORONARY ARTERY W/O ANG PCTRS (6) Acute kidney injury superimposed on CKD Code(s): N17.9 - ACUTE KIDNEY FAILURE, UNSPECIFIED; N18.9 - CHRONIC KIDNEY DISEASE, UNSPECIFIED (7) Acute on chronic respiratory failure with hypoxia and hypercapnia Code(s): J96.21 - ACUTE AND CHRONIC RESPIRATORY FAILURE WITH HYPOXIA; J96.22 - ACUTE AND CHRONIC RESPIRATORY FAILURE WITH HYPERCAPNIA (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 - OTHER SPECIFIED PLEURAL CONDITIONS (9) CAD (coronary artery disease) Code(s): I25.10 - ATHSCL HEART DISEASE OF [place] CORONARY ARTERY W/O ANG PCTRS Qualifiers: Coronary Disease-Associated Artery/Lesion type: bypass graft, autologous artery Associated angina: without angina Qualified Code(s): I25.810 - Atherosclerosis of coronary artery bypass graft(s) without angina pectoris (10) DM type 2 (diabetes mellitus, type 2) Code(s): E11.9 - TYPE 2 DIABETES MELLITUS WITHOUT COMPLICATIONS Qualifiers: Diabetes mellitus chcf insulin use: with machine long goods helper use Chronic kidney disease stage: stage 4 (severe) (11) HTN (hypertension) Code(s): I10 - ESSENTIAL (PRIMARY) HYPERTENSION (12) S/P CABG (coronary artery bypass graft) Code(s): Z95.1 - PRESENCE OF AORTOCORONARY BYPASS GRAFT Assessment/Plan 88 y.o. 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
--- NOTE | 2018-11-17 10:04 | PN ---
Progress Note, Physician Chief Complaint: Very weak, poor PO intake, lethargic on 2 L O2NC History of Present Illness: Cronic hypercarbic respiratory failure. at night bipap 15/8 Persistent 6.7cm left basilar atelectasis/consolidation. CABG ASHD. DM type on Levemir/Januvia. CRI/ckd 4. 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 Previous Thoracentesis in the past-neg for malignancy. JUAN-at nights using CPAP. Chronic A.Fib. Combined CHF. Gout. Gouty arthritis. Previous rectal surgery for abscess, fistula at [facility]. - Current Medication List Current Medications: Active Medications Acetaminophen (Tylenol -) 650 mg PO Q6H PRN PRN Reason: HEADACHE Apixaban (Eliquis -) 2.5 mg PO BID [facility] Last Admin: 11/16/18 22:48 Dose: 2.5 mg Aspirin (Asa -) 81 mg PO DAILY [facility] Bisacodyl (Dulcolax Suppository -) 10 mg [place] DAILY PRN PRN Reason: CONSTIPATION Colchicine (Colcrys) 0.6 mg PO BID [facility] Last Admin: 11/16/18 22:48 Dose: 0.6 mg Febuxostat (Uloric -) 40 mg PO DAILY [facility] Furosemide (Lasix Injection -) 120 mg IVPB BID@0600,1400 [facility] Last Admin: 11/17/18 06:42 Dose: Not Given Insulin Aspart (Novolog Vial Sliding Scale -) 1 vial SQ [facility]; Protocol Last Admin: 11/17/18 06:56 Dose: Not Given Insulin Detemir (Levemir Vial) 10 units SQ BID@0700,2200 [facility] Levothyroxine Sodium (Synthroid -) 50 mcg PO DAILY@0700 [facility] Last Admin: 11/17/18 06:56 Dose: 50 mcg Metoprolol Succinate (Toprol Xl -) 50 mg PO BID [facility] Last Admin: 11/16/18 22:46 Dose: Not Given Pantoprazole Sodium (Protonix Iv) 40 mg IVPUSH DAILY [facility] Polyethylene Glycol (Miralax (For Daily Use) -) 17 gm PO BID [facility] Last Admin: 11/16/18 22:48 Dose: 17 gm - Objective Vital Signs: Vital Signs Temperature 97.6 F 11/17/18 06:00 Pulse Rate 82 11/17/18 06:00 Respiratory Rate 20 11/17/18 06:00 Blood Pressure 99/64 11/17/18 06:00 O2 Sat by Pulse Oximetry (%) 99 11/17/18 00:44 Constitutional: Yes: Moderate Distress, Obese Eyes: Yes: Conjunctiva Clear, EOM Intact HENT: Yes: Atraumatic, Normocephalic Neck: Yes: Supple, Trachea Midline Cardiovascular: Yes: Pulse Irregular, S1, S2 Respiratory: Yes: Diminished (B/L) Gastrointestinal: Yes: Normal Bowel Sounds, Soft, Abdomen, Obese. No: Ascites ...Rectal Exam: Yes: Deferred Genitourinary: No: Anuria Breast(s): Yes: WNL. No: Nipple Inversion Musculoskeletal: Yes: Joint Stiffness, Muscle Pain, Muscle Weakness Extremities: No: Calf Tenderness, Cold, Cyanosis Edema: No Peripheral Pulses WNL: No Neurological: Yes: Alert, Asterixis, Confusion, Cran Nerves II-XII Intact. No: Oriented, Aphasia, Ataxia Psychiatric: Yes: Alert, Oriented. No: Agitated, Suicidal Ideation Labs: CBC, BMP 11/17/18 06:15 11/17/18 06:15 INR, PTT INR 1.08 (0.83-1.09) 11/04/18 19:55 Problem List - Problems (1) Acute kidney injury superimposed on CKD Assessment/Plan: Noted BUN/Creat- Lasix on Hold Follow electrolytes Code(s): N17.9 - ACUTE KIDNEY FAILURE, UNSPECIFIED; N18.9 - CHRONIC KIDNEY DISEASE, UNSPECIFIED (2) Acute on chronic respiratory failure with hypoxia and hypercapnia Assessment/Plan: BIPAP, NIV OFF steroids ABG f/u Code(s): J96.21 - ACUTE AND CHRONIC RESPIRATORY FAILURE WITH HYPOXIA; J96.22 - ACUTE AND CHRONIC RESPIRATORY FAILURE WITH HYPERCAPNIA (3) Acute on chronic systolic (congestive) heart failure Assessment/Plan: Off Lasix now Follow fluid status and restart Lasix when BUN/Creat improves. Code(s): I50.23 - ACUTE ON CHRONIC SYSTOLIC (CONGESTIVE) HEART FAILURE (4) CKD (chronic kidney disease) Assessment/Plan: Follow BUN/Creat Code(s): N18.9 - CHRONIC KIDNEY DISEASE, UNSPECIFIED Qualifiers: Chronic kidney disease stage: stage 3 (moderate) Qualified Code(s): N18.3 - Chronic kidney disease, stage 3 (moderate) (5) Diabetes 1.5, managed as type 2 Assessment/Plan: Controlled BGM No episodes of low BGM Novolog coverage. Levemir 10 u BID Code(s): E13.9 - OTHER SPECIFIED DIABETES MELLITUS WITHOUT COMPLICATIONS (6) DNR (do not resuscitate) discussion Assessment/Plan: DNR/DNI , D/C planning discussed with the . . Code(s): Z71.89 - OTHER SPECIFIED COUNSELING (7) Hyponatremia Assessment/Plan: Liberalize salt in diet-soft Hyponatremia due to diuretics-now Lasix on hold. Code(s): E87.1 - HYPO-OSMOLALITY AND HYPONATREMIA
[2018-11-17] MEDS ORDERED: PT OWN MED DRAWER 7, Y5N ONE ×2 (11:31→11:51)
[2018-11-17] MEDS: COLCHICINE 0.6 MG CAP PO SCH ×2 (11:41→21:46)
[2018-11-17] MEDS: PANTOPRAZOLE SODIUM 40 MG VIAL IVPUSH SCH (11:41)
[2018-11-17] MEDS: ASPIRIN 81 MG CHEWABLE TABLETS PO SCH (11:41)
[2018-11-17] MEDS: APIXABAN 2.5 MG TABLET PO SCH ×2 (11:41→21:46)
--- NOTE | 2018-11-17 13:33 | PN ---
Progress Note, Physician History of Present Illness: PULMONARY ALERT ,FEELING BETTER.LESS DYSPNEIC ON NASAL CANNULA - Current Medication List Current Medications: Active Medications Acetaminophen (Tylenol -) 650 mg PO Q6H PRN PRN Reason: HEADACHE Apixaban (Eliquis -) 2.5 mg PO BID [facility] Last Admin: 11/17/18 11:41 Dose: 2.5 mg Aspirin (Asa -) 81 mg PO DAILY [facility] Last Admin: 11/17/18 11:41 Dose: 81 mg Bisacodyl (Dulcolax Suppository -) 10 mg [place] DAILY PRN PRN Reason: CONSTIPATION Colchicine (Colcrys) 0.6 mg PO BID [facility] Last Admin: 11/17/18 11:41 Dose: 0.6 mg Febuxostat (Uloric -) 40 mg PO DAILY [facility] Furosemide (Lasix Injection -) 120 mg IVPB BID@0600,1400 [facility] Last Admin: 11/17/18 06:42 Dose: Not Given Insulin Aspart (Novolog Vial Sliding Scale -) 1 vial SQ [facility]; Protocol Last Admin: 11/17/18 11:47 Dose: 8 units Insulin Detemir (Levemir Vial) 10 units SQ BID@0700,2200 [facility] Levothyroxine Sodium (Synthroid -) 50 mcg PO DAILY@0700 [facility] Last Admin: 11/17/18 06:56 Dose: 50 mcg Metoprolol Succinate (Toprol Xl -) 50 mg PO BID [facility] Last Admin: 11/17/18 11:38 Dose: 50 mg Pantoprazole Sodium (Protonix Iv) 40 mg IVPUSH DAILY [facility] Last Admin: 11/17/18 11:41 Dose: 40 mg Polyethylene Glycol (Miralax (For Daily Use) -) 17 gm PO BID [facility] Last Admin: 11/16/18 22:48 Dose: 17 gm - Objective Vital Signs: Vital Signs Temperature 97.6 F 11/17/18 06:00 Pulse Rate 82 11/17/18 06:00 Respiratory Rate 20 11/17/18 06:00 Blood Pressure 99/64 11/17/18 06:00 O2 Sat by Pulse Oximetry (%) 99 11/17/18 00:44 Constitutional: Yes: Well Nourished, Calm Eyes: Yes: WNL HENT: Yes: WNL Neck: Yes: WNL Cardiovascular: Yes: Pulse Irregular, S1, S2 Respiratory: Yes: Rales (TOSHA CRACKLES) Gastrointestinal: Yes: Normal Bowel Sounds, Soft Extremities: Yes: WNL Edema: No Labs: CBC, BMP 11/17/18 06:15 11/17/18 06:15 INR, PTT INR 1.08 (0.83-1.09) 11/04/18 19:55 Assessment/Plan Problem List - Problems (1) Acute respiratory failure with hypercapnia Code(s): J96.02 - ACUTE RESPIRATORY FAILURE WITH HYPERCAPNIA (2) Atrial fibrillation Code(s): I48.91 - UNSPECIFIED ATRIAL FIBRILLATION Qualifiers: (3) CHF, acute on chronic Code(s): I50.9 - HEART FAILURE, UNSPECIFIED Qualifiers: (4) COPD (chronic obstructive pulmonary disease) Code(s): J44.9 - CHRONIC OBSTRUCTIVE PULMONARY DISEASE, UNSPECIFIED (5) Hypoxemia Code(s): R09.02 - HYPOXEMIA (6) ASHD (arteriosclerotic heart disease) Code(s): I25.10 - ATHSCL HEART DISEASE OF [place] CORONARY ARTERY W/O ANG PCTRS (7) Acute on chronic diastolic CHF (congestive heart failure) Code(s): I50.33 - ACUTE ON CHRONIC DIASTOLIC (CONGESTIVE) HEART FAILURE (8) Acute on chronic respiratory failure with hypoxia and hypercapnia Code(s): J96.21 - ACUTE AND CHRONIC RESPIRATORY FAILURE WITH HYPOXIA; J96.22 - ACUTE AND CHRONIC RESPIRATORY FAILURE WITH HYPERCAPNIA (9) Acute on chronic systolic (congestive) heart failure Code(s): I50.23 - ACUTE ON CHRONIC SYSTOLIC (CONGESTIVE) HEART FAILURE (10) Asbestos pleurisy Code(s): J94.8 - OTHER SPECIFIED PLEURAL CONDITIONS (11) CAD (coronary artery disease) Code(s): I25.10 - ATHSCL HEART DISEASE OF [place] CORONARY ARTERY W/O ANG PCTRS Qualifiers: Coronary Disease-Associated Artery/Lesion type: bypass graft, autologous artery Associated angina: without angina Qualified Code(s): I25.810 - Atherosclerosis of coronary artery bypass graft(s) without angina pectoris (12) CKD (chronic kidney disease) Code(s): N18.9 - CHRONIC KIDNEY DISEASE, UNSPECIFIED Qualifiers: Chronic kidney disease stage: stage 3 (moderate) Qualified Code(s): N18.3 - Chronic kidney disease, stage 3 (moderate) (13) DM type 2 (diabetes mellitus, type 2) Code(s): E11.9 - TYPE 2 DIABETES MELLITUS WITHOUT COMPLICATIONS Qualifiers: Diabetes mellitus group home insulin use: with extermination supervisor use Chronic kidney disease stage: stage 4 (severe) (14) HTN (hypertension) Code(s): I10 - ESSENTIAL (PRIMARY) HYPERTENSION (15) Hyperlipidemia Code(s): E78.5 - HYPERLIPIDEMIA, UNSPECIFIED (16) Leg swelling Code(s): M79.89 - OTHER SPECIFIED SOFT TISSUE DISORDERS (17) Morbid obesity Code(s): E66.01 - MORBID (SEVERE) OBESITY DUE TO EXCESS CALORIES (18) Pleural effusion Code(s): J90 - PLEURAL EFFUSION, NOT ELSEWHERE CLASSIFIED (19) Pulmonary hypertension Code(s): I27.20 - PULMONARY HYPERTENSION, UNSPECIFIED (20) S/P CABG (coronary artery bypass graft) Code(s): Z95.1 - PRESENCE OF AORTOCORONARY BYPASS GRAFT (21) Seizure Code(s): R56.9 - UNSPECIFIED CONVULSIONS (22) Sleep apnea Code(s): G47.30 - SLEEP APNEA, UNSPECIFIED Qualifiers: Sleep apnea type: unspecified type Qualified Code(s): G47.30 - Sleep apnea , unspecified ASSESSMENT AND PLAN: Acute on Chronic Hypoxic and Hypercapneic Respiratory Failure improving Acute on Chronic Systolic Heart Failure Acute COPD Exacerbation Interstitial Lung Disease Pulmonary HTN Atrial Fibrillation CAD s/p CABG Acute on Chronic Renal Failure JUAN - would hold lasix today - monitor urine output, creatinine - monitor off steroids - inhaled bronchodilators - rate control - continue anticoagulation - BiPAP at night and as needed during day - check ABG on home O2 when ready for discharge to assess for home NIPPV - O2 to keep SpO2 88-92% DR HERNANDEZ
--- NOTE | 2018-11-17 14:26 | PN ---
Progress Note, EYE PHYSICIAN - Note Progress Note: Selected Entries 11/16/18 11/16/18 11/16/18 10:00 11:18 15:54 Breakfast 100% Lunch 75% Temperature 97.4 F L 11/16/18 11/16/18 11/16/18 18:00 21:15 23:45 Breakfast Lunch Temperature 97.2 F L 98.4 F 97.9 F 11/17/18 11/17/18 11/17/18 02:00 06:00 10:35 Breakfast 75% Lunch Temperature 97.4 F L 97.6 F Laboratory Tests 11/17/18 06:15 WBC 9.2 MBS reviewed . OPt receiving Dys chopped and nectar thick liquids. Pt no longer coughing/choking. He looks well. Verbal. Suggest trial of thin liquids, pureed soup, no mixed consistencies. Feed only when fully alert. HOB elevated to 90 degrees, chin flexed.
[2018-11-17 14:54] VITALS: BMI 38.4
[2018-11-17] MEDS: FEBUXOSTAT 40 MG TAB PO SCH (15:51)
[2018-11-17] MEDS: POLYETHYLENE GLYCOL 3350 119 GM BTL PO SCH ×2 (15:52→21:46)
[2018-11-17] MEDS: ACETAMINOPHEN 325 MG TABLET (FP) PO PRN (18:37)
[2018-11-17] MEDS: BISACODYL 10 MG SUPP.RECT PR PRN (22:53)
[2018-11-18] MEDS ORDERED: PT OWN MED DRAWER 7, Y5N ONE ×3 (05:29→18:44)
[2018-11-18] MEDS: ACETAMINOPHEN 325 MG TABLET (FP) PO PRN ×3 (05:32→21:06)
[2018-11-18] MEDS: FUROSEMIDE 40 MG/4 ML INJECTABLE VIAL IVPB SCH (05:33)
[2018-11-18] MEDS: INSULIN (LEVEMIR) 100 UNITS/ML UNITS SQ SCH ×2 (06:39→21:05)
[2018-11-18] MEDS: LEVOTHYROXINE NA 50 MCG TABLET (FP) PO SCH (06:39)
[2018-11-18] MEDS: INSULIN SLIDING SCALE (NOVOLOG) 1 VIAL SQ SCH ×4 (06:40→21:05)
[2018-11-18 06:47] LABS: ARTERIAL BLD GAS O2 SATURATION 93.8 % (95-98); ARTERIAL BLOOD GAS BASE EXCESS 17.1 meq/l (-2-2); ARTERIAL BLOOD GAS PO2 70.6 mmHg (80-100); ARTERIAL BLOOD GAS pH 7.43 (7.35-7.45)
[2018-11-18 06:52] LABS: ALLENS TEST POSITIVE
--- NOTE | 2018-11-18 07:46 | PN ---
Progress Note, Physician Chief Complaint: no complaints offered History of Present Illness: [facility] coverage for Dr. 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 Patient recently observed at [facility] on 10/27- for possible seizure and syncope. He presents to the ED on 11/04/18 for shortness of breath for four days.The patient was hypoxic 70-74% at home. On arrival to the ED, the patient was tachypneic with labored breathing and was placed on Bipap. - Current Medication List Current Medications: Active Medications Acetaminophen (Tylenol -) 650 mg PO Q6H PRN PRN Reason: HEADACHE Last Admin: 11/18/18 05:32 Dose: 650 mg Apixaban (Eliquis -) 2.5 mg PO BID [facility] Last Admin: 11/17/18 21:46 Dose: 2.5 mg Aspirin (Asa -) 81 mg PO DAILY [facility] Last Admin: 11/17/18 11:41 Dose: 81 mg Bisacodyl (Dulcolax Suppository -) [address] DAILY PRN PRN Reason: CONSTIPATION Last Admin: 11/17/18 22:53 Dose: 10 mg Colchicine (Colcrys) 0.6 mg PO BID [facility] Last Admin: 11/17/18 21:46 Dose: 0.6 mg Febuxostat (Uloric -) 40 mg PO DAILY [facility] Last Admin: 11/17/18 15:51 Dose: 40 mg Furosemide (Lasix Injection -) 120 mg IVPB BID@0600,1400 [facility] Last Admin: 11/18/18 05:33 Dose: 120 mg Insulin Aspart (Novolog Vial Sliding Scale -) 1 vial SQ [facility]; Protocol Last Admin: 11/18/18 06:40 Dose: Not Given Insulin Detemir (Levemir Vial) 10 units SQ BID@0700,2200 [facility] Last Admin: 11/18/18 06:39 Dose: 10 units Levothyroxine Sodium (Synthroid -) 50 mcg PO DAILY@0700 [facility] Last Admin: 11/18/18 06:39 Dose: 50 mcg Metoprolol Succinate (Toprol Xl -) 50 mg PO BID [facility] Last Admin: 11/17/18 21:51 Dose: Not Given Pantoprazole Sodium (Protonix Iv) 40 mg IVPUSH DAILY [facility] Last Admin: 11/17/18 11:41 Dose: 40 mg Polyethylene Glycol (Miralax (For Daily Use) -) 17 gm PO BID [facility] Last Admin: 11/17/18 21:46 Dose: 17 gm - Objective Vital Signs: Vital Signs Temperature 97.8 F 11/18/18 06:14 Pulse Rate 71 11/18/18 06:14 Respiratory Rate 20 11/18/18 06:14 Blood Pressure 103/60 11/18/18 06:14 O2 Sat by Pulse Oximetry (%) 99 11/17/18 21:00 Constitutional: Yes: Well Nourished, No Distress, Calm Eyes: Yes: WNL, Conjunctiva Clear, EOM Intact HENT: Yes: WNL, Atraumatic, Normocephalic Neck: Yes: WNL, Supple, Trachea Midline Cardiovascular: Yes: WNL, Regular Rate and Rhythm Respiratory: Yes: WNL, Regular, CTA Bilaterally Gastrointestinal: Yes: WNL, Normal Bowel Sounds, Soft ...Rectal Exam: Yes: Deferred Genitourinary: Yes: WNL Breast(s): Yes: WNL Musculoskeletal: Yes: WNL Extremities: Yes: WNL Edema: Yes Edema: LLE: Trace, RLE: Trace Peripheral Pulses WNL: Yes Peripheral Pulses: Left Radial: 2+, Right Radial: 2+, Left Doralis Pedis: 2+, Right Dorsalis Pedis: 2+, Left Femoral: 2+, Right Femoral: 2+ Integumentary: Yes: WNL Neurological: Yes: WNL, Alert, Oriented ...Motor Strength: WNL Psychiatric: Yes: WNL, Alert, Oriented Labs: CBC, BMP 11/17/18 06:15 INR, PTT INR 1.08 (0.83-1.09) 11/04/18 19:55 Problem List - Problems (1) DNI (do not intubate) Code(s): Z78.9 - OTHER SPECIFIED HEALTH STATUS (2) DNR (do not resuscitate) Code(s): Z66 - DO NOT RESUSCITATE (3) Prophylactic measure Assessment/Plan: FEN no additional IVF, on diuretics dysphagia chopped diet monitor electrolyes DVT c/w apixaban Dispo maintain on tele DNR/DNI discharge planning Code(s): Z29.9 - ENCOUNTER FOR PROPHYLACTIC MEASURES, UNSPECIFIED (4) Dysphagia Assessment/Plan: Seen by speech pathologist MBS reviewed by pathologidt & receiving Dys chopped and nectar thick liquids. Pt no longer coughing/choking. He looks well. Verbal. Suggest trial of thin liquids, pureed soup, no mixed consistencies. Feed only when fully alert. HOB elevated to 90 degrees, chin flexed. Code(s): R13.10 - DYSPHAGIA, UNSPECIFIED Impression/Plan Impression/Plan: Problem List - Problems (1) Acute kidney injury superimposed on CKD Assessment/Plan: Noted BUN/Creat-54/1.7, decresing from yesterday diuretics restarted Follow electrolytes Code(s): N17.9 - ACUTE KIDNEY FAILURE, UNSPECIFIED; N18.9 - CHRONIC KIDNEY DISEASE, UNSPECIFIED (2) Acute on chronic respiratory failure with hypoxia and hypercapnia Assessment/Plan: BIPAP o/n, maintaining now on NC. CO2 elevated this am to 70 will repeat later or if pt appears somolent Code(s): J96.21 - ACUTE AND CHRONIC RESPIRATORY FAILURE WITH HYPOXIA; J96.22 - ACUTE AND CHRONIC RESPIRATORY FAILURE WITH HYPERCAPNIA (3) Acute on chronic systolic (congestive) heart failure Assessment/Plan: diuretics restarted c/w aldadctone and torsomide Code(s): I50.23 - ACUTE ON CHRONIC SYSTOLIC (CONGESTIVE) HEART FAILURE (4) CKD (chronic kidney disease) Assessment/Plan: avoid nephrotoxic agents monitor cr, electrolytes Code(s): N18.9 - CHRONIC KIDNEY DISEASE, UNSPECIFIED Qualifiers: Chronic kidney disease stage: stage 3 (moderate) Qualified Code(s): N18.3 - Chronic kidney disease, stage 3 (moderate) (5) Diabetes 1.5, managed as type 2 Assessment/Plan: BGM AC/qHS with novolog sliding scale Code(s): E13.9 - OTHER SPECIFIED DIABETES MELLITUS WITHOUT COMPLICATIONS (6) DNR (do not resuscitate) discussion Assessment/Plan: DNR/DNI , Code(s): Z71.89 - OTHER SPECIFIED COUNSELING (7) Hyponatremia Assessment/Plan: Na 133 Liberalize salt in diet will frluid restrict free water to 1`200cc/day monitor Na Code(s): E87.1 - HYPO-OSMOLALITY AND HYPONATREMIA Visit type - Emergency Visit Emergency Visit: Yes ED Registration Date: 11/04/18 Care time: The patient presented to the Emergency Department on the above date and was hospitalized for further evaluation of their emergent condition. - New Patient This patient is new to me today: Yes Date on this admission: 11/18/18 - Critical Care Critical Care patient: No - Discharge Referral Referred to [facility] Med P.C.: No
[2018-11-18 08:12] LABS: ALBUMIN 3.2 g/dl (3.4-5.0); BILIRUBIN,TOTAL 0.6 mg/dL (0.2-1); BLOOD UREA NITROGEN 54.9 mg/dL (7-18); CALCIUM 8.8 mg/dL (8.5-10.1); CREATININE 1.7 mg/dL (0.55-1.3); POTASSIUM 3.4 mmol/L (3.5-5.1); TOT PROT 6.2 g/dl (6.4-8.2)
[2018-11-18] MEDS: POLYETHYLENE GLYCOL 3350 119 GM BTL PO SCH ×2 (09:03→21:06)
[2018-11-18] MEDS: ASPIRIN 81 MG CHEWABLE TABLETS PO SCH (09:04)
[2018-11-18] MEDS: COLCHICINE 0.6 MG CAP PO SCH ×2 (09:04→21:05)
[2018-11-18] MEDS: APIXABAN 2.5 MG TABLET PO SCH ×2 (09:04→21:05)
[2018-11-18] MEDS: FEBUXOSTAT 40 MG TAB PO SCH (09:04)
[2018-11-18] MEDS: PANTOPRAZOLE SODIUM 40 MG VIAL IVPUSH SCH (09:05)
--- NOTE | 2018-11-18 10:52 | PN ---
Progress Note (short form) - Note Progress Note: s: no chest pain, palps, dizziness, sob Current Medications Generic Name Dose Route Start Last Admin Trade Name Freq PRN Reason Stop Dose Admin Acetaminophen 650 mg 11/16/18 21:12 11/18/18 05:32 Tylenol - PO 650 mg Q6H PRN Administration HEADACHE Apixaban 2.5 mg 11/16/18 22:00 11/18/18 09:04 Eliquis - PO 2.5 mg BID JOE Administration Aspirin 81 mg 11/17/18 10:00 11/18/18 09:04 Asa - PO 81 mg DAILY JOE Administration Bisacodyl 10 mg 11/16/18 21:12 11/17/18 22:53 Dulcolax Suppository - [place] 10 mg DAILY PRN Administration CONSTIPATION Colchicine 0.6 mg 11/16/18 22:00 11/18/18 09:04 Colcrys PO 0.6 mg BID JOE Administration Febuxostat 40 mg 11/17/18 10:00 11/18/18 09:04 Uloric - PO 40 mg DAILY JOE Administration Furosemide 120 mg 11/17/18 06:00 11/18/18 05:33 Lasix Injection - IVPB 11/18/18 23:00 120 mg BID@0600,1400 [facility] Administration Insulin Aspart 1 vial 11/16/18 22:00 11/18/18 06:40 Novolog Vial Sliding Scale - SQ Not Given ACHS [facility] Protocol Insulin Detemir 10 units 11/17/18 09:34 11/18/18 06:39 Levemir Vial SQ 10 units BID@0700,2200 [facility] Administration Levothyroxine Sodium 50 mcg 11/17/18 07:00 11/18/18 06:39 Synthroid - PO 50 mcg DAILY@0700 [facility] Administration Metoprolol Succinate 50 mg 11/16/18 22:00 11/18/18 09:04 Toprol Xl - PO Not Given BID [facility] Pantoprazole Sodium 40 mg 11/17/18 10:00 11/18/18 09:05 Protonix Iv IVPUSH 40 mg DAILY [facility] Administration Polyethylene Glycol 17 gm 11/16/18 22:00 11/18/18 09:03 Miralax (For Daily Use) - PO 17 gm BID JOE Administration Spironolactone 25 mg 11/19/18 10:00 Aldactone - PO DAILY JOE Torsemide 100 mg 11/19/18 06:00 Demadex - PO BIDLASIX JOE Vital Signs Period Temp Pulse Resp BP Sys/Junior Pulse Ox Last 24 Hr 96.7 F-98.4 F 71-93 18-20 96-110/55-69 99 Constitutional: Yes: No Distress, Calm Eyes: No: Sclera Icterus HENT: No: Nasal Congestion Cardiovascular: Yes: Regular Rate and Rhythm, S1, S2, Other (PMI non diplaced). No: JVD (prohibitively tds exam), Gallop, Murmur Respiratory: Yes: CTA Bilaterally. No: Accessory Muscle Use, Rales, Wheezes Gastrointestinal: Yes: Normal Bowel Sounds, Soft. No: Tenderness Extremities: No: Cyanosis Edema: No Integumentary: No: Jaundice Neurological: Yes: Alert, Oriented (x3) Psychiatric: No: Agitated CBC, BMP 11/17/18 06:15 11/18/18 07:15 Assessment/Plan Echo 04/2018: EF 45%, mod MR/TR, at least mild , moderate to severe PHTN Nuclear stress 2017: Pharm: small inferolat infarct, mild arlin-infarct ischemia , Overall EF 35-40% CXR: "vs prior, again noted is...congestive changes" ECG: afib, nonsp TWA lateral leads--no change vs prior tele: afib, HR controlled IMP: -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 (home regimen: torsemide 100 bid, spironolactone 25, metopr. no BETTY/ARB due to CKD) -Chronic respiratory failure -Asbestos lung dz/ ILD, on home O2. 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 cr stable. will change to po diuretics now. -tele monitoring
[2018-11-18] MEDS ORDERED: POTASSIUM CHLORIDE TABS 20 MEQ TABLET.ER (FP) PO ONE (12:15)
--- NOTE | 2018-11-18 13:17 | PN ---
Progress Note (short form) - Note Progress Note: PULMONARY Denies shortness of breath or chest pain. Vital Signs Period Temp Pulse Resp BP Sys/Junior Pulse Ox Last 24 Hr 96.7 F-98.4 F 71-93 18-20 96-110/55-69 99 Gen: NAD at rest Heart: RRR Lung: bibasilar rales Abd: soft, nontender Ext: no edema CBC, BMP 11/17/18 06:15 11/18/18 07:15 Active Medications Acetaminophen (Tylenol -) 650 mg PO Q6H PRN PRN Reason: HEADACHE Last Admin: 11/18/18 12:19 Dose: 650 mg Apixaban (Eliquis -) 2.5 mg PO BID [facility] Last Admin: 11/18/18 09:04 Dose: 2.5 mg Aspirin (Asa -) 81 mg PO DAILY [facility] Last Admin: 11/18/18 09:04 Dose: 81 mg Bisacodyl (Dulcolax Suppository -) 10 mg DE DAILY PRN PRN Reason: CONSTIPATION Last Admin: 11/17/18 22:53 Dose: 10 mg Colchicine (Colcrys) 0.6 mg PO BID [facility] Last Admin: 11/18/18 09:04 Dose: 0.6 mg Febuxostat (Uloric -) 40 mg PO DAILY [facility] Last Admin: 11/18/18 09:04 Dose: 40 mg Insulin Aspart (Novolog Vial Sliding Scale -) 1 vial SQ [facility]; Protocol Last Admin: 11/18/18 11:06 Dose: 6 units Insulin Detemir (Levemir Vial) 10 units SQ BID@0700,2200 [facility] Last Admin: 11/18/18 06:39 Dose: 10 units Levothyroxine Sodium (Synthroid -) 50 mcg PO DAILY@0700 [facility] Last Admin: 11/18/18 06:39 Dose: 50 mcg Metoprolol Succinate (Toprol Xl -) 50 mg PO BID [facility] Last Admin: 11/18/18 09:04 Dose: Not Given Pantoprazole Sodium (Protonix Iv) 40 mg IVPUSH DAILY [facility] Last Admin: 11/18/18 09:05 Dose: 40 mg Polyethylene Glycol (Miralax (For Daily Use) -) 17 gm PO BID [facility] Last Admin: 11/18/18 09:03 Dose: 17 gm Spironolactone (Aldactone -) 25 mg PO DAILY JOE Torsemide (Demadex -) 100 mg PO BIDLASIX JOE A/P Acute on Chronic Hypoxic and Hypercapneic Respiratory Failure improving Acute on Chronic Systolic Heart Failure r/o Acute COPD Exacerbation Interstitial Lung Disease Pulmonary HTN Atrial Fibrillation CAD s/p CABG Acute on Chronic Renal Failure JUAN - continue torsemide - monitor urine output, creatinine - monitor off steroids - inhaled bronchodilators - rate control - continue anticoagulation - BiPAP at night and as needed during day - check ABG on home O2 when ready for discharge to assess for home NIPPV - O2 to keep SpO2 88-92% - d/c planning
--- NOTE | 2018-11-18 13:44 | PN ---
Progress Note, Physician History of Present Illness: Pt seen and examined. Events noted. Walking with PT. No SOB or cough, remains afebrile. - Current Medication List Current Medications: Active Medications Acetaminophen (Tylenol -) 650 mg PO Q6H PRN PRN Reason: HEADACHE Last Admin: 11/18/18 12:19 Dose: 650 mg Apixaban (Eliquis -) 2.5 mg PO BID [facility] Last Admin: 11/18/18 09:04 Dose: 2.5 mg Aspirin (Asa -) 81 mg PO DAILY [facility] Last Admin: 11/18/18 09:04 Dose: 81 mg Bisacodyl (Dulcolax Suppository -) 10 mg SC DAILY PRN PRN Reason: CONSTIPATION Last Admin: 11/17/18 22:53 Dose: 10 mg Colchicine (Colcrys) 0.6 mg PO BID [facility] Last Admin: 11/18/18 09:04 Dose: 0.6 mg Febuxostat (Uloric -) 40 mg PO DAILY [facility] Last Admin: 11/18/18 09:04 Dose: 40 mg Insulin Aspart (Novolog Vial Sliding Scale -) 1 vial SQ [facility]; Protocol Last Admin: 11/18/18 11:06 Dose: 6 units Insulin Detemir (Levemir Vial) 10 units SQ BID@0700,2200 [facility] Last Admin: 11/18/18 06:39 Dose: 10 units Levothyroxine Sodium (Synthroid -) 50 mcg PO DAILY@0700 [facility] Last Admin: 11/18/18 06:39 Dose: 50 mcg Metoprolol Succinate (Toprol Xl -) 50 mg PO BID [facility] Last Admin: 11/18/18 09:04 Dose: Not Given Pantoprazole Sodium (Protonix Iv) 40 mg IVPUSH DAILY [facility] Last Admin: 11/18/18 09:05 Dose: 40 mg Polyethylene Glycol (Miralax (For Daily Use) -) 17 gm PO BID [facility] Last Admin: 11/18/18 09:03 Dose: 17 gm Spironolactone (Aldactone -) 25 mg PO DAILY [facility] Torsemide (Demadex -) 100 mg PO BIDLASIX [facility] - Objective Vital Signs: Vital Signs Temperature 97.8 F 11/18/18 06:14 Pulse Rate 71 11/18/18 06:14 Respiratory Rate 20 11/18/18 06:14 Blood Pressure 103/60 11/18/18 06:14 O2 Sat by Pulse Oximetry (%) 99 11/17/18 21:00 Constitutional: Yes: No Distress, Calm Cardiovascular: Yes: Regular Rate and Rhythm Respiratory: Yes: Diminished Gastrointestinal: Yes: Normal Bowel Sounds, Soft, Abdomen, Obese Genitourinary: Yes: WNL Extremities: Yes: WNL Edema: No Integumentary: Yes: WNL Neurological: Yes: Alert, Oriented Labs: CBC, BMP 11/17/18 06:15 11/18/18 07:15 INR, PTT INR 1.08 (0.83-1.09) 11/04/18 19:55 Microbiology 11/05/18 08:45 Blood - Peripheral Venous Blood Culture - Final NO GROWTH AFTER 5 DAYS INCUBATION 11/05/18 08:45 Blood - Peripheral Venous Blood Culture - Final NO GROWTH AFTER 5 DAYS INCUBATION 11/05/18 11:50 Urine For Antigen Detection Legionella Antigen - Final 11/05/18 11:50 Urine For Antigen Detection Streptococcus pneumoniae Antigen (M - Final - ....Imaging Chest X-ray: Report Reviewed Problem List - Problems (1) Atrial fibrillation Code(s): I48.91 - UNSPECIFIED ATRIAL FIBRILLATION (2) CHF, acute on chronic Code(s): I50.9 - HEART FAILURE, UNSPECIFIED (3) COPD (chronic obstructive pulmonary disease) Code(s): J44.9 - CHRONIC OBSTRUCTIVE PULMONARY DISEASE, UNSPECIFIED (4) Hypoxemia Code(s): R09.02 - HYPOXEMIA (5) ASHD (arteriosclerotic heart disease) Code(s): I25.10 - ATHSCL HEART DISEASE OF [place] CORONARY ARTERY W/O ANG PCTRS (6) Acute kidney injury superimposed on CKD Code(s): N17.9 - ACUTE KIDNEY FAILURE, UNSPECIFIED; N18.9 - CHRONIC KIDNEY DISEASE, UNSPECIFIED (7) Acute on chronic respiratory failure with hypoxia and hypercapnia Code(s): J96.21 - ACUTE AND CHRONIC RESPIRATORY FAILURE WITH HYPOXIA; J96.22 - ACUTE AND CHRONIC RESPIRATORY FAILURE WITH HYPERCAPNIA (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 - OTHER SPECIFIED PLEURAL CONDITIONS (9) CAD (coronary artery disease) Code(s): I25.10 - ATHSCL HEART DISEASE OF [place] CORONARY ARTERY W/O ANG PCTRS Qualifiers: Coronary Disease-Associated Artery/Lesion type: bypass graft, autologous artery Associated angina: without angina Qualified Code(s): I25.810 - Atherosclerosis of coronary artery bypass graft(s) without angina pectoris (10) DM type 2 (diabetes mellitus, type 2) Code(s): E11.9 - TYPE 2 DIABETES MELLITUS WITHOUT COMPLICATIONS Qualifiers: Diabetes mellitus termite exterminator insulin use: with termite exterminator use Chronic kidney disease stage: stage 4 (severe) (11) HTN (hypertension) Code(s): I10 - ESSENTIAL (PRIMARY) HYPERTENSION (12) S/P CABG (coronary artery bypass graft) Code(s): Z95.1 - PRESENCE OF AORTOCORONARY BYPASS GRAFT Assessment/Plan Acute hypoxemic respiratory failure Acute/Chronic heart failure KOFI on CKD Asbestosis CAD DM AFIB -- Pt appears to be improving, remains afebrile, without respiratory distress at this time on O2 NC -- continue monitor off antibiotics
[2018-11-19 04:11] LABS: ARTERIAL BLD GAS O2 SATURATION 97.5 % (95-98); ARTERIAL BLOOD GAS BASE EXCESS 17.4 meq/l (-2-2); ARTERIAL BLOOD GAS PCO2 60.2 mmHg (35-45); ARTERIAL BLOOD GAS PO2 85.1 mmHg (80-100); ARTERIAL BLOOD GAS pH 7.48 (7.35-7.45)
[2018-11-19 04:12] LABS: ALLENS TEST POSITIVE
[2018-11-19] MEDS: INSULIN SLIDING SCALE (NOVOLOG) 1 VIAL SQ SCH ×4 (06:03→21:01)
[2018-11-19] MEDS ORDERED: PT OWN MED DRAWER 7, Y5N ONE (06:11)
[2018-11-19] MEDS: LEVOTHYROXINE NA 50 MCG TABLET (FP) PO SCH (06:18)
[2018-11-19] MEDS: TORSEMIDE 100 MG TABLET PO SCH ×2 (06:18→14:42)
[2018-11-19] MEDS: INSULIN (LEVEMIR) 100 UNITS/ML UNITS SQ SCH ×2 (06:20→21:06)
[2018-11-19 06:57] LABS: BASO % 0.7 % (0-2.0); EOS % 1.3 % (0-4.5); HEMATOCRIT 39.7 % (35.4-49); HEMOGLOBIN 13.2 GM/dL (11.7-16.9); MCH 29.5 pg (25.7-33.7); MCHC 33.3 g/dl (32.0-35.9); MEAN CELL VOLUME 88.4 fl (80-96); MEAN PLT VOLUME 8.9 fl (7.5-11.1); MONO % 10.8 % (3.8-10.2); NEUT % 76.2 % (42.8-82.8); PLATELET COUNT 207 K/MM3 (134-434); RBC 4.49 M/mm3 (4.00-5.60); RDW 18.3 % (11.9-15.9); WHITE BLOOD COUNT 8.1 K/mm3 (4.0-10.0)
[2018-11-19 07:07] LABS: INR 1.06 (0.83-1.09); PROTHROMBIN TIME (PATIENT) 12.5 SEC (9.7-13.0)
[2018-11-19 07:20] LABS: ALBUMIN 3.2 g/dl (3.4-5.0); BILIRUBIN,TOTAL 0.6 mg/dL (0.2-1); CALCIUM 8.6 mg/dL (8.5-10.1); CREATININE 1.7 mg/dL (0.55-1.3); MAGNESIUM 2.3 mg/dL (1.8-2.4); POTASSIUM 3.6 mmol/L (3.5-5.1); TOT PROT 6.1 g/dl (6.4-8.2)
--- NOTE | 2018-11-19 07:26 | PN ---
Progress Note, Physician Chief Complaint: Blood tinged sputu overnight. Placed on Bipap last night for hypercarbia History of Present Illness: [facility] coverage for Dr. 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 Patient recently observed at [facility] on 10/27- for possible seizure and syncope. He presents to the ED on 11/04/18 for shortness of breath for four days.The patient was hypoxic 70-74% at home. On arrival to the ED, the patient was tachypneic with labored breathing and was placed on Bipap. - Current Medication List Current Medications: Active Medications Acetaminophen (Tylenol -) 650 mg PO Q6H PRN PRN Reason: HEADACHE Last Admin: 11/18/18 21:06 Dose: 650 mg Apixaban (Eliquis -) 2.5 mg PO BID [facility] Last Admin: 11/18/18 21:05 Dose: 2.5 mg Aspirin (Asa -) 81 mg PO DAILY [facility] Last Admin: 11/18/18 09:04 Dose: 81 mg Bisacodyl (Dulcolax Suppository -) 10 mg OR DAILY PRN PRN Reason: CONSTIPATION Last Admin: 11/17/18 22:53 Dose: 10 mg Colchicine (Colcrys) 0.6 mg PO BID [facility] Last Admin: 11/18/18 21:05 Dose: 0.6 mg Febuxostat (Uloric -) 40 mg PO DAILY [facility] Last Admin: 11/18/18 09:04 Dose: 40 mg Insulin Aspart (Novolog Vial Sliding Scale -) 1 vial SQ [facility]; Protocol Last Admin: 11/19/18 06:03 Dose: Not Given Insulin Detemir (Levemir Vial) 10 units SQ BID@0700,2200 [facility] Last Admin: 11/19/18 06:20 Dose: 10 units Levothyroxine Sodium (Synthroid -) 50 mcg PO DAILY@0700 [facility] Last Admin: 11/19/18 06:18 Dose: 50 mcg Metoprolol Succinate (Toprol Xl -) 50 mg PO BID [facility] Last Admin: 11/18/18 21:05 Dose: Not Given Pantoprazole Sodium (Protonix Iv) 40 mg IVPUSH DAILY [facility] Last Admin: 11/18/18 09:05 Dose: 40 mg Polyethylene Glycol (Miralax (For Daily Use) -) 17 gm PO BID [facility] Last Admin: 11/18/18 21:06 Dose: 17 gm Spironolactone (Aldactone -) 25 mg PO DAILY [facility] Torsemide (Demadex -) 100 mg PO BIDLASIX [facility] Last Admin: 11/19/18 06:18 Dose: 100 mg - Objective Vital Signs: Vital Signs Temperature 97.2 F L 11/19/18 06:00 Pulse Rate 88 11/19/18 06:00 Respiratory Rate 18 11/19/18 06:00 Blood Pressure 106/70 11/19/18 06:00 O2 Sat by Pulse Oximetry (%) 98 11/18/18 22:00 Additional Findings/Remarks: Constitutional: Yes: Well Nourished, No Distress, Calm Eyes: Yes: WNL, Conjunctiva Clear, EOM Intact HENT: Yes: WNL, Atraumatic, Normocephalic Neck: Yes: WNL, Supple, Trachea Midline Cardiovascular: Yes: WNL, Regular Rate and Rhythm Respiratory: Yes: WNL, Regular, CTA Bilaterally Gastrointestinal: Yes: WNL, Normal Bowel Sounds, Soft ...Rectal Exam: Yes: Deferred Genitourinary: Yes: WNL Breast(s): Yes: WNL Musculoskeletal: Yes: WNL Extremities: Yes: WNL Edema: Yes Edema: LLE: Trace, RLE: Trace Peripheral Pulses WNL: Yes Peripheral Pulses: Left Radial: 2+, Right Radial: 2+, Left Doralis Pedis: 2+, Right Dorsalis Pedis: 2+, Left Femoral: 2+, Right Femoral: 2+ Integumentary: Yes: WNL Neurological: Yes: WNL, Alert, Oriented ...Motor Strength: WNL Psychiatric: Yes: WNL, Alert, Oriented Labs: CBC, BMP 11/19/18 05:31 INR, PTT INR 1.06 (0.83-1.09) 11/19/18 05:31 Problem List - Problems (1) DNI (do not intubate) Code(s): Z78.9 - OTHER SPECIFIED HEALTH STATUS (2) DNR (do not resuscitate) Code(s): Z66 - DO NOT RESUSCITATE (3) Prophylactic measure Assessment/Plan: FEN no additional IVF, on diuretics dysphagia chopped diet monitor electrolyes DVT c/w apixaban Dispo maintain on tele DNR/DNI discharge planning Code(s): Z29.9 - ENCOUNTER FOR PROPHYLACTIC MEASURES, UNSPECIFIED (4) Dysphagia Assessment/Plan: Seen by speech pathologist MBS reviewed by pathologidt & receiving Dys chopped and nectar thick liquids. Pt no longer coughing/choking. He looks well. Verbal. Suggest trial of thin liquids, pureed soup, no mixed consistencies. Feed only when fully alert. HOB elevated to 90 degrees, chin flexed. Code(s): R13.10 - DYSPHAGIA, UNSPECIFIED Impression/Plan Impression/Plan: Problem List - Problems (1) Acute kidney injury superimposed on CKD Assessment/Plan: Noted BUN/Creat-47/1.7, down trending diuretics restarted Follow electrolytes Code(s): N17.9 - ACUTE KIDNEY FAILURE, UNSPECIFIED; N18.9 - CHRONIC KIDNEY DISEASE, UNSPECIFIED (2) Acute on chronic respiratory failure with hypoxia and hypercapnia Assessment/Plan: BIPAP o/n, maintaining now on NC. CO2 elevated this am to 60 and somolent as per night coverage. Placed on BiPap overnight Plan for BiPap nightly Code(s): J96.21 - ACUTE AND CHRONIC RESPIRATORY FAILURE WITH HYPOXIA; J96.22 - ACUTE AND CHRONIC RESPIRATORY FAILURE WITH HYPERCAPNIA (3) Acute on chronic systolic (congestive) heart failure Assessment/Plan: diuretics restarted c/w aldadctone and torsomide Code(s): I50.23 - ACUTE ON CHRONIC SYSTOLIC (CONGESTIVE) HEART FAILURE (4) CKD (chronic kidney disease) Assessment/Plan: avoid nephrotoxic agents monitor cr, electrolytes Code(s): N18.9 - CHRONIC KIDNEY DISEASE, UNSPECIFIED Qualifiers: Chronic kidney disease stage: stage 3 (moderate) Qualified Code(s): N18.3 - Chronic kidney disease, stage 3 (moderate) (5) Diabetes 1.5, managed as type 2 Assessment/Plan: M AC/qHS with novolog sliding scale Code(s): E13.9 - OTHER SPECIFIED DIABETES MELLITUS WITHOUT COMPLICATIONS (6) DNR (do not resuscitate) discussion Assessment/Plan: DNR/DNI , Code(s): Z71.89 - OTHER SPECIFIED COUNSELING (7) Hyponatremia Assessment/Plan: Na 136 Liberalized salt in diet will change fluid restrict free water to 1500cc/day monitor Na Code(s): E87.1 - HYPO-OSMOLALITY AND HYPONATREMIA Visit type - Emergency Visit Emergency Visit: Yes ED Registration Date: 11/04/18 Care time: The patient presented to the Emergency Department on the above date and was hospitalized for further evaluation of their emergent condition. - New Patient This patient is new to me today: No - Critical Care Critical Care patient: No - Discharge Referral Referred to [facility] Med P.C.: No
[2018-11-19] MEDS: COLCHICINE 0.6 MG CAP PO SCH ×2 (10:44→21:06)
[2018-11-19] MEDS: APIXABAN 2.5 MG TABLET PO SCH ×2 (10:45→21:06)
[2018-11-19] MEDS: ASPIRIN 81 MG CHEWABLE TABLETS PO SCH (10:45)
[2018-11-19] MEDS: PANTOPRAZOLE SODIUM 40 MG VIAL IVPUSH SCH (10:46)
[2018-11-19] MEDS: POLYETHYLENE GLYCOL 3350 119 GM BTL PO SCH ×2 (10:46→21:06)
[2018-11-19] MEDS: FEBUXOSTAT 40 MG TAB PO SCH (10:47)
[2018-11-19] MEDS: SPIRONOLACTONE 25 MG TABLET (FP) PO SCH (10:49)
--- NOTE | 2018-11-19 10:54 | PN ---
Progress Note (short form) - Note Progress Note: s: no chest pain, palps, dizziness, sob Current Medications Generic Name Dose Route Start Last Admin Trade Name Freq PRN Reason Stop Dose Admin Acetaminophen 650 mg 11/16/18 21:12 11/18/18 21:06 Tylenol - PO 650 mg Q6H PRN Administration HEADACHE Apixaban 2.5 mg 11/16/18 22:00 11/18/18 21:05 Eliquis - PO 2.5 mg BID JOE Administration Aspirin 81 mg 11/17/18 10:00 11/18/18 09:04 Asa - PO 81 mg DAILY JOE Administration Bisacodyl 10 mg 11/16/18 21:12 11/17/18 22:53 Dulcolax Suppository - [place] 10 mg DAILY PRN Administration CONSTIPATION Colchicine 0.6 mg 11/16/18 22:00 11/18/18 21:05 Colcrys PO 0.6 mg BID JOE Administration Febuxostat 40 mg 11/17/18 10:00 11/18/18 09:04 Uloric - PO 40 mg DAILY JOE Administration Insulin Aspart 1 vial 11/16/18 22:00 11/19/18 06:03 Novolog Vial Sliding Scale - SQ Not Given ACHS [facility] Protocol Insulin Detemir 10 units 11/17/18 09:34 11/19/18 06:20 Levemir Vial SQ 10 units BID@0700,2200 JOE Administration Levothyroxine Sodium 50 mcg 11/17/18 07:00 11/19/18 06:18 Synthroid - PO 50 mcg DAILY@0700 JOE Administration Metoprolol Succinate 50 mg 11/16/18 22:00 11/18/18 21:05 Toprol Xl - PO Not Given BID JOE Pantoprazole Sodium 40 mg 11/17/18 10:00 11/18/18 09:05 Protonix Iv IVPUSH 40 mg DAILY JOE Administration Polyethylene Glycol 17 gm 11/16/18 22:00 11/18/18 21:06 Miralax (For Daily Use) - PO 17 gm BID JOE Administration Spironolactone 25 mg 11/19/18 10:00 Aldactone - PO DAILY JOE Torsemide 100 mg 11/19/18 06:00 11/19/18 06:18 Demadex - PO 100 mg BIDLASIX JOE Administration Vital Signs Period Temp Pulse Resp BP Sys/Junior Pulse Ox Last 24 Hr 97.2 F-98.3 F 88-112 18-22 102-116/55-70 98-98 Constitutional: Yes: No Distress, Calm Eyes: No: Sclera Icterus HENT: No: Nasal Congestion Cardiovascular: Yes: Regular Rate and Rhythm, S1, S2, Other (PMI non diplaced). No: JVD (prohibitively tds exam), Gallop, Murmur Respiratory: Yes: CTA Bilaterally. No: Accessory Muscle Use, Rales, Wheezes Gastrointestinal: Yes: Normal Bowel Sounds, Soft. No: Tenderness Extremities: No: Cyanosis Edema: No Integumentary: No: Jaundice Neurological: Yes: Alert, Oriented (x3) Psychiatric: No: Agitated CBC, BMP 11/19/18 05:31 11/19/18 05:31 Assessment/Plan Echo 04/2018: EF 45%, mod MR/TR, at least mild , moderate to severe PHTN Nuclear stress 2017: Pharm: small inferolat infarct, mild arlin-infarct ischemia , Overall EF 35-40% CXR: "vs prior, again noted is...congestive changes" ECG: afib, nonsp TWA lateral leads--no change vs prior tele: afib, HR controlled IMP: -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 (home regimen: torsemide 100 bid, spironolactone 25, metopr. no BETTY/ARB due to CKD) -Chronic respiratory failure -Asbestos lung dz/ ILD, on home O2. 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 cr stable. continue po diuretics. -awaiting snf
--- NOTE | 2018-11-19 11:06 | PN ---
Progress Note, Physician History of Present Illness: Pt is alert, without respiratory distress. Minimal amount of blood-tinged sputum reported this morning, not actively coughing. BP a bit on the lower side but afebrile, RR/HR normal. No other complaints. - Current Medication List Current Medications: Active Medications Acetaminophen (Tylenol -) 650 mg PO Q6H PRN PRN Reason: HEADACHE Last Admin: 11/18/18 21:06 Dose: 650 mg Apixaban (Eliquis -) 2.5 mg PO BID [facility] Last Admin: 11/19/18 10:45 Dose: 2.5 mg Aspirin (Asa -) 81 mg PO DAILY [facility] Last Admin: 11/19/18 10:45 Dose: 81 mg Bisacodyl (Dulcolax Suppository -) 10 mg [place] DAILY PRN PRN Reason: CONSTIPATION Last Admin: 11/17/18 22:53 Dose: 10 mg Colchicine (Colcrys) 0.6 mg PO BID [facility] Last Admin: 11/19/18 10:44 Dose: 0.6 mg Febuxostat (Uloric -) 40 mg PO DAILY [facility] Last Admin: 11/19/18 10:47 Dose: 40 mg Insulin Aspart (Novolog Vial Sliding Scale -) 1 vial SQ [facility]; Protocol Last Admin: 11/19/18 06:03 Dose: Not Given Insulin Detemir (Levemir Vial) 10 units SQ BID@0700,2200 [facility] Last Admin: 11/19/18 06:20 Dose: 10 units Levothyroxine Sodium (Synthroid -) 50 mcg PO DAILY@0700 [facility] Last Admin: 11/19/18 06:18 Dose: 50 mcg Metoprolol Succinate (Toprol Xl -) 50 mg PO BID [facility] Last Admin: 11/18/18 21:05 Dose: Not Given Pantoprazole Sodium (Protonix Iv) 40 mg IVPUSH DAILY [facility] Last Admin: 11/19/18 10:46 Dose: 40 mg Polyethylene Glycol (Miralax (For Daily Use) -) 17 gm PO BID [facility] Last Admin: 11/19/18 10:46 Dose: 17 gm Spironolactone (Aldactone -) 25 mg PO DAILY [facility] Torsemide (Demadex -) 100 mg PO BIDLASIX [facility] Last Admin: 11/19/18 06:18 Dose: 100 mg - Objective Vital Signs: Vital Signs Temperature 97.2 F L 09/01/19 06:00 Pulse Rate 88 11/19/18 06:00 Respiratory Rate 18 11/19/18 06:00 Blood Pressure 106/70 11/19/18 06:00 O2 Sat by Pulse Oximetry (%) 98 11/18/18 22:00 Constitutional: Yes: No Distress, Calm HENT: Yes: Atraumatic Neck: Yes: Supple Cardiovascular: Yes: Pulse Irregular Respiratory: Yes: Regular, On Nasal O2 Gastrointestinal: Yes: Normal Bowel Sounds, Soft, Abdomen, Obese Genitourinary: Yes: WNL Extremities: Yes: WNL Integumentary: Yes: WNL Neurological: Yes: Alert, Oriented Labs: CBC, BMP 11/19/18 05:31 11/19/18 05:31 INR, PTT INR 1.06 (0.83-1.09) 11/19/18 05:31 Microbiology 11/05/18 08:45 Blood - Peripheral Venous Blood Culture - Final NO GROWTH AFTER 5 DAYS INCUBATION 11/05/18 08:45 Blood - Peripheral Venous Blood Culture - Final NO GROWTH AFTER 5 DAYS INCUBATION 11/05/18 11:50 Urine For Antigen Detection Legionella Antigen - Final 11/05/18 11:50 Urine For Antigen Detection Streptococcus pneumoniae Antigen (M - Final Problem List - Problems (1) Atrial fibrillation Code(s): I48.91 - UNSPECIFIED ATRIAL FIBRILLATION (2) CHF, acute on chronic Code(s): I50.9 - HEART FAILURE, UNSPECIFIED (3) COPD (chronic obstructive pulmonary disease) Code(s): J44.9 - CHRONIC OBSTRUCTIVE PULMONARY DISEASE, UNSPECIFIED (4) Hypoxemia Code(s): R09.02 - HYPOXEMIA (5) ASHD (arteriosclerotic heart disease) Code(s): I25.10 - ATHSCL HEART DISEASE OF [place] CORONARY ARTERY W/O ANG PCTRS (6) Acute kidney injury superimposed on CKD Code(s): N17.9 - ACUTE KIDNEY FAILURE, UNSPECIFIED; N18.9 - CHRONIC KIDNEY DISEASE, UNSPECIFIED (7) Acute on chronic respiratory failure with hypoxia and hypercapnia Code(s): J96.21 - ACUTE AND CHRONIC RESPIRATORY FAILURE WITH HYPOXIA; J96.22 - ACUTE AND CHRONIC RESPIRATORY FAILURE WITH HYPERCAPNIA (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 - OTHER SPECIFIED PLEURAL CONDITIONS (9) CAD (coronary artery disease) Code(s): I25.10 - ATHSCL HEART DISEASE OF [place] CORONARY ARTERY W/O ANG PCTRS Qualifiers: Coronary Disease-Associated Artery/Lesion type: bypass graft, autologous artery Associated angina: without angina Qualified Code(s): I25.810 - Atherosclerosis of coronary artery bypass graft(s) without angina pectoris (10) DM type 2 (diabetes mellitus, type 2) Code(s): E11.9 - TYPE 2 DIABETES MELLITUS WITHOUT COMPLICATIONS Qualifiers: Diabetes mellitus fci insulin use: with fci use Chronic kidney disease stage: stage 4 (severe) (11) HTN (hypertension) Code(s): I10 - ESSENTIAL (PRIMARY) HYPERTENSION (12) S/P CABG (coronary artery bypass graft) Code(s): Z95.1 - PRESENCE OF AORTOCORONARY BYPASS GRAFT Assessment/Plan Acute hypoxemic respiratory failure/ Chronic respiratory failure on O2 NC Acute/Chronic heart failure KOFI on CKD Asbestosis CAD DM AFIB -- Pt noted to have small amount of blood-tinged sputum this am, not noted to be actively coughing -- Remains afebrile, without tachynea/respiratory distress, normal wbc -- mildly hypotensive currently, continue monitor closely -- at this time continue monitor off antibiotics -- if hemoptysis continues suggest repeat chest imaging -- Pulmonary follow up
--- NOTE | 2018-11-19 12:02 | PN ---
Progress Note (short form) - Note Progress Note: PULMONARY Episode of hemoptysis earlier. Denies shortness of breath or chest pain. Vital Signs Period Temp Pulse Resp BP Sys/Junior Pulse Ox Last 24 Hr 97.2 F-98.3 F 88-112 18-22 102-116/55-70 98-98 Gen: NAD at rest Heart: RRR Lung: bibasilar rales Abd: soft, nontender Ext: no edema CBC, BMP 11/19/18 05:31 11/19/18 05:31 Active Medications Acetaminophen (Tylenol -) 650 mg PO Q6H PRN PRN Reason: HEADACHE Last Admin: 11/18/18 21:06 Dose: 650 mg Apixaban (Eliquis -) 2.5 mg PO BID [facility] Last Admin: 11/19/18 10:45 Dose: 2.5 mg Aspirin (Asa -) 81 mg PO DAILY [facility] Last Admin: 11/19/18 10:45 Dose: 81 mg Bisacodyl (Dulcolax Suppository -) 10 mg [place] DAILY PRN PRN Reason: CONSTIPATION Last Admin: 11/17/18 22:53 Dose: 10 mg Colchicine (Colcrys) 0.6 mg PO BID [facility] Last Admin: 11/19/18 10:44 Dose: 0.6 mg Febuxostat (Uloric -) 40 mg PO DAILY [facility] Last Admin: 11/19/18 10:47 Dose: 40 mg Insulin Aspart (Novolog Vial Sliding Scale -) 1 vial SQ [facility]; Protocol Last Admin: 11/19/18 06:03 Dose: Not Given Insulin Detemir (Levemir Vial) 10 units SQ BID@0700,2200 [facility] Last Admin: 11/19/18 06:20 Dose: 10 units Levothyroxine Sodium (Synthroid -) 50 mcg PO DAILY@0700 [facility] Last Admin: 11/19/18 06:18 Dose: 50 mcg Metoprolol Succinate (Toprol Xl -) 50 mg PO BID [facility] Last Admin: 11/18/18 21:05 Dose: Not Given Pantoprazole Sodium (Protonix Iv) 40 mg IVPUSH DAILY [facility] Last Admin: 11/19/18 10:46 Dose: 40 mg Polyethylene Glycol (Miralax (For Daily Use) -) 17 gm PO BID [facility] Last Admin: 11/19/18 10:46 Dose: 17 gm Spironolactone (Aldactone -) 25 mg PO DAILY [facility] Torsemide (Demadex -) 100 mg PO BIDLASIX [facility] Last Admin: 11/19/18 06:18 Dose: 100 mg A/P Acute on Chronic Hypoxic and Hypercapneic Respiratory Failure improving Acute on Chronic Systolic Heart Failure r/o Acute COPD Exacerbation Interstitial Lung Disease Pulmonary HTN Atrial Fibrillation CAD s/p CABG Acute on Chronic Renal Failure JUAN - monitor/quantify hemoptysis - if continues can consider repeat CT chest noncontrast - continue torsemide - monitor urine output, creatinine - monitor off steroids - inhaled bronchodilators - rate control - continue anticoagulation - BiPAP at night and as needed during day - check ABG on home O2 when ready for discharge to assess for home NIPPV - O2 to keep SpO2 88-92% - d/c planning
[2018-11-19] MEDS ORDERED: INSULIN (NOVOLOG) ASPART 100 UNITS/ML 10ML VIAL SQ ONE (19:52)
[2018-11-19] MEDS: BISACODYL 10 MG SUPP.RECT PR PRN (21:35)
[2018-11-20 06:17] LABS: HEMATOCRIT 39.8 % (35.4-49); HEMOGLOBIN 13.1 GM/dL (11.7-16.9); LYMPH % 11.4 % (8-40); MCH 29.2 pg (25.7-33.7); MEAN CELL VOLUME 88.4 fl (80-96); MONO % 11.7 % (3.8-10.2); NEUT % 74.9 % (42.8-82.8); PLATELET COUNT 209 K/MM3 (134-434); RDW 18.5 % (11.9-15.9); WHITE BLOOD COUNT 8.8 K/mm3 (4.0-10.0)
[2018-11-20 06:42] LABS: ALBUMIN 3.2 g/dl (3.4-5.0); BILIRUBIN,TOTAL 0.5 mg/dL (0.2-1); BLOOD UREA NITROGEN 41.6 mg/dL (7-18); CALCIUM 8.6 mg/dL (8.5-10.1); CREATININE 1.7 mg/dL (0.55-1.3); MAGNESIUM 2.1 mg/dL (1.8-2.4); POTASSIUM 3.4 mmol/L (3.5-5.1)
[2018-11-20] MEDS: INSULIN SLIDING SCALE (NOVOLOG) 1 VIAL SQ SCH ×4 (06:43→22:02)
[2018-11-20] MEDS: LEVOTHYROXINE NA 50 MCG TABLET (FP) PO SCH (06:43)
[2018-11-20] MEDS: INSULIN (LEVEMIR) 100 UNITS/ML UNITS SQ SCH ×2 (06:43→22:01)
[2018-11-20] MEDS: TORSEMIDE 100 MG TABLET PO SCH ×2 (06:43→13:43)
[2018-11-20] MEDS ORDERED: PT OWN MED DRAWER 7, Y5N ONE (09:23)
[2018-11-20] MEDS: PANTOPRAZOLE SODIUM 40 MG VIAL IVPUSH SCH (09:30)
[2018-11-20] MEDS: SPIRONOLACTONE 25 MG TABLET (FP) PO SCH (09:30)
[2018-11-20] MEDS: POLYETHYLENE GLYCOL 3350 119 GM BTL PO SCH ×2 (09:30→22:01)
[2018-11-20] MEDS: COLCHICINE 0.6 MG CAP PO SCH ×2 (09:30→22:00)
[2018-11-20] MEDS: ASPIRIN 81 MG CHEWABLE TABLETS PO SCH (09:31)
[2018-11-20] MEDS: APIXABAN 2.5 MG TABLET PO SCH ×2 (09:31→22:00)
[2018-11-20] MEDS: FEBUXOSTAT 40 MG TAB PO SCH (09:31)
--- NOTE | 2018-11-20 09:37 | PN ---
Progress Note, Physician History of Present Illness: pulmonary alert,feeling better,sob improving - Current Medication List Current Medications: Active Medications Acetaminophen (Tylenol -) 650 mg PO Q6H PRN PRN Reason: HEADACHE Last Admin: 11/18/18 21:06 Dose: 650 mg Apixaban (Eliquis -) 2.5 mg PO BID [facility] Last Admin: 11/20/18 09:31 Dose: 2.5 mg Aspirin (Asa -) 81 mg PO DAILY [facility] Last Admin: 11/20/18 09:31 Dose: 81 mg Bisacodyl (Dulcolax Suppository -) 10 mg [place] DAILY PRN PRN Reason: CONSTIPATION Last Admin: 11/19/18 21:35 Dose: 10 mg Colchicine (Colcrys) 0.6 mg PO BID [facility] Last Admin: 11/20/18 09:30 Dose: 0.6 mg Febuxostat (Uloric -) 40 mg PO DAILY [facility] Last Admin: 11/20/18 09:31 Dose: 40 mg Insulin Aspart (Novolog Vial Sliding Scale -) 1 vial SQ [facility]; Protocol Last Admin: 11/20/18 06:43 Dose: 2 units Insulin Detemir (Levemir Vial) 10 units SQ BID@0700,2200 [facility] Last Admin: 11/20/18 06:43 Dose: 10 units Levothyroxine Sodium (Synthroid -) 50 mcg PO DAILY@0700 [facility] Last Admin: 11/20/18 06:43 Dose: 50 mcg Metoprolol Succinate (Toprol Xl -) 50 mg PO BID [facility] Last Admin: 11/20/18 09:30 Dose: 50 mg Pantoprazole Sodium (Protonix Iv) 40 mg IVPUSH DAILY [facility] Last Admin: 11/20/18 09:30 Dose: 40 mg Polyethylene Glycol (Miralax (For Daily Use) -) 17 gm PO BID [facility] Last Admin: 11/20/18 09:30 Dose: 17 gm Spironolactone (Aldactone -) 25 mg PO DAILY [facility] Last Admin: 11/20/18 09:30 Dose: 25 mg Torsemide (Demadex -) 100 mg PO BIDLASIX [facility] Last Admin: 11/20/18 06:43 Dose: 100 mg - Objective Vital Signs: Vital Signs Temperature 98.5 F 11/20/18 08:27 Pulse Rate 101 H 09/02/19 08:27 Respiratory Rate 18 11/20/18 08:27 Blood Pressure 108/60 11/20/18 08:27 O2 Sat by Pulse Oximetry (%) 100 11/19/18 22:00 Constitutional: Yes: Calm, Obese Eyes: Yes: WNL HENT: Yes: WNL Neck: Yes: WNL Cardiovascular: Yes: Pulse Irregular, S1, S2 Respiratory: Yes: Rales ( bibasilar crackles) Gastrointestinal: Yes: Normal Bowel Sounds, Soft Extremities: Yes: WNL Edema: No Labs: CBC, BMP 11/20/18 05:00 11/20/18 05:00 INR, PTT INR 1.06 (0.83-1.09) 11/19/18 05:31 Assessment/Plan Problem List - Problems (1) Acute respiratory failure with hypercapnia Code(s): J96.02 - ACUTE RESPIRATORY FAILURE WITH HYPERCAPNIA (2) Atrial fibrillation Code(s): I48.91 - UNSPECIFIED ATRIAL FIBRILLATION Qualifiers: (3) CHF, acute on chronic Code(s): I50.9 - HEART FAILURE, UNSPECIFIED Qualifiers: (4) COPD (chronic obstructive pulmonary disease) Code(s): J44.9 - CHRONIC OBSTRUCTIVE PULMONARY DISEASE, UNSPECIFIED (5) Hypoxemia Code(s): R09.02 - HYPOXEMIA (6) ASHD (arteriosclerotic heart disease) Code(s): I25.10 - ATHSCL HEART DISEASE OF [place] CORONARY ARTERY W/O ANG PCTRS (7) Acute on chronic diastolic CHF (congestive heart failure) Code(s): I50.33 - ACUTE ON CHRONIC DIASTOLIC (CONGESTIVE) HEART FAILURE (8) Acute on chronic respiratory failure with hypoxia and hypercapnia Code(s): J96.21 - ACUTE AND CHRONIC RESPIRATORY FAILURE WITH HYPOXIA; J96.22 - ACUTE AND CHRONIC RESPIRATORY FAILURE WITH HYPERCAPNIA (9) Acute on chronic systolic (congestive) heart failure Code(s): I50.23 - ACUTE ON CHRONIC SYSTOLIC (CONGESTIVE) HEART FAILURE (10) Asbestos pleurisy Code(s): J94.8 - OTHER SPECIFIED PLEURAL CONDITIONS (11) CAD (coronary artery disease) Code(s): I25.10 - ATHSCL HEART DISEASE OF [place] CORONARY ARTERY W/O ANG PCTRS Qualifiers: Coronary Disease-Associated Artery/Lesion type: bypass graft, autologous artery Associated angina: without angina Qualified Code(s): I25.810 - Atherosclerosis of coronary artery bypass graft(s) without angina pectoris (12) CKD (chronic kidney disease) Code(s): N18.9 - CHRONIC KIDNEY DISEASE, UNSPECIFIED Qualifiers: Chronic kidney disease stage: stage 3 (moderate) Qualified Code(s): N18.3 - Chronic kidney disease, stage 3 (moderate) (13) DM type 2 (diabetes mellitus, type 2) Code(s): E11.9 - TYPE 2 DIABETES MELLITUS WITHOUT COMPLICATIONS Qualifiers: Diabetes mellitus automobiles salesperson insulin use: with automobiles salesperson use Chronic kidney disease stage: stage 4 (severe) (14) HTN (hypertension) Code(s): I10 - ESSENTIAL (PRIMARY) HYPERTENSION (15) Hyperlipidemia Code(s): E78.5 - HYPERLIPIDEMIA, UNSPECIFIED (16) Leg swelling Code(s): M79.89 - OTHER SPECIFIED SOFT TISSUE DISORDERS (17) Morbid obesity Code(s): E66.01 - MORBID (SEVERE) OBESITY DUE TO EXCESS CALORIES (18) Pleural effusion Code(s): J90 - PLEURAL EFFUSION, NOT ELSEWHERE CLASSIFIED (19) Pulmonary hypertension Code(s): I27.20 - PULMONARY HYPERTENSION, UNSPECIFIED (20) S/P CABG (coronary artery bypass graft) Code(s): Z95.1 - PRESENCE OF AORTOCORONARY BYPASS GRAFT (21) Seizure Code(s): R56.9 - UNSPECIFIED CONVULSIONS (22) Sleep apnea Code(s): G47.30 - SLEEP APNEA, UNSPECIFIED Qualifiers: Sleep apnea type: unspecified type Qualified Code(s): G47.30 - Sleep apnea , unspecified ASSESSMENT AND PLAN: Acute on Chronic Hypoxic and Hypercapneic Respiratory Failure improving Acute on Chronic Systolic Heart Failure Acute COPD Exacerbation Interstitial Lung Disease Pulmonary HTN Atrial Fibrillation CAD s/p CABG Acute on Chronic Renal Failure JUAN - diuretics - monitor urine output, creatinine - inhaled bronchodilators - rate control - continue anticoagulation - BiPAP at night and as needed during day - check ABG on home O2 when ready for discharge to assess for home NIPPV - O2 to keep SpO2 88-92% DR HERNANDEZ
[2018-11-20] MEDS ORDERED: POTASSIUM CHLORIDE ORAL LIQUID 20 MEQ/15 ML PO ONE (10:00)
--- NOTE | 2018-11-20 10:51 | PN ---
Progress Note (short form) - Note Progress Note: s: no chest pain, palps, dizziness, sob Current Medications Generic Name Dose Route Start Last Admin Trade Name Freq PRN Reason Stop Dose Admin Acetaminophen 650 mg 11/16/18 21:12 11/18/18 21:06 Tylenol - PO 650 mg Q6H PRN Administration HEADACHE Apixaban 2.5 mg 11/16/18 22:00 11/20/18 09:31 Eliquis - PO 2.5 mg BID JOE Administration Aspirin 81 mg 11/17/18 10:00 11/20/18 09:31 Asa - PO 81 mg DAILY JOE Administration Bisacodyl 10 mg 11/16/18 21:12 11/19/18 21:35 Dulcolax Suppository - [place] 10 mg DAILY PRN Administration CONSTIPATION Colchicine 0.6 mg 11/16/18 22:00 11/20/18 09:30 Colcrys PO 0.6 mg BID JOE Administration Febuxostat 40 mg 11/17/18 10:00 11/20/18 09:31 Uloric - PO 40 mg DAILY JOE Administration Insulin Aspart 1 vial 11/16/18 22:00 11/20/18 06:43 Novolog Vial Sliding Scale - SQ 2 units ACHS JOE Administration Protocol Insulin Detemir 10 units 11/17/18 09:34 11/20/18 06:43 Levemir Vial SQ 10 units BID@0700,2200 JOE Administration Levothyroxine Sodium 50 mcg 11/17/18 07:00 11/20/18 06:43 Synthroid - PO 50 mcg DAILY@0700 JOE Administration Metoprolol Succinate 50 mg 11/16/18 22:00 11/20/18 09:30 Toprol Xl - PO 50 mg BID JOE Administration Pantoprazole Sodium 40 mg 11/17/18 10:00 11/20/18 09:30 Protonix Iv IVPUSH 40 mg DAILY JOE Administration Polyethylene Glycol 17 gm 11/16/18 22:00 11/20/18 09:30 Miralax (For Daily Use) - PO 17 gm BID JOE Administration Spironolactone 25 mg 11/19/18 10:00 11/20/18 09:30 Aldactone - PO 25 mg DAILY [facility]E Administration Torsemide 100 mg 11/19/18 06:00 11/20/18 06:43 Demadex - PO 100 mg BIDLASIX JOE Administration Vital Signs Period Temp Pulse Resp BP Sys/Junior Pulse Ox Last 24 Hr 98.1 F-98.6 F 90-106 18-22 103-129/55-82 98-100 Constitutional: Yes: No Distress, Calm Eyes: No: Sclera Icterus HENT: No: Nasal Congestion Cardiovascular: Yes: Regular Rate and Rhythm, S1, S2, Other (PMI non diplaced). No: JVD (prohibitively tds exam), Gallop, Murmur Respiratory: Yes: CTA Bilaterally. No: Accessory Muscle Use, Rales, Wheezes Gastrointestinal: Yes: Normal Bowel Sounds, Soft. No: Tenderness Extremities: No: Cyanosis Edema: No Integumentary: No: Jaundice Neurological: Yes: Alert, Oriented (x3) Psychiatric: No: Agitated CBC, BMP 11/20/18 05:00 11/20/18 05:00 Assessment/Plan Echo 04/2018: EF 45%, mod MR/TR, at least mild , moderate to severe PHTN Nuclear stress 2017: Pharm: small inferolat infarct, mild arlin-infarct ischemia , Overall EF 35-40% CXR: "vs prior, again noted is...congestive changes" ECG: afib, nonsp TWA lateral leads--no change vs prior tele: afib, HR controlled IMP: -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 (home regimen: torsemide 100 bid, spironolactone 25, metopr. no BETTY/ARB due to CKD) -Chronic respiratory failure -Asbestos lung dz/ ILD, on home O2. 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 cr stable. continue po diuretics. -awaiting snf
--- NOTE | 2018-11-20 18:34 | PN ---
Progress Note, Physician History of Present Illness: Pt states he feels well. No hemoptysis today, without respiratory distress. Remains afebrile. - Current Medication List Current Medications: Active Medications Acetaminophen (Tylenol -) 650 mg PO Q6H PRN PRN Reason: HEADACHE Last Admin: 11/18/18 21:06 Dose: 650 mg Apixaban (Eliquis -) 2.5 mg PO BID [facility] Last Admin: 11/20/18 09:31 Dose: 2.5 mg Aspirin (Asa -) 81 mg PO DAILY [facility] Last Admin: 11/20/18 09:31 Dose: 81 mg Bisacodyl (Dulcolax Suppository -) 10 mg [place] DAILY PRN PRN Reason: CONSTIPATION Last Admin: 11/19/18 21:35 Dose: 10 mg Colchicine (Colcrys) 0.6 mg PO BID [facility] Last Admin: 11/20/18 09:30 Dose: 0.6 mg Febuxostat (Uloric -) 40 mg PO DAILY [facility] Last Admin: 11/20/18 09:31 Dose: 40 mg Insulin Aspart (Novolog Vial Sliding Scale -) 1 vial SQ [facility]; Protocol Last Admin: 11/20/18 17:14 Dose: 10 units Insulin Detemir (Levemir Vial) 10 units SQ BID@0700,2200 [facility] Last Admin: 11/20/18 06:43 Dose: 10 units Levothyroxine Sodium (Synthroid -) 50 mcg PO DAILY@0700 [facility] Last Admin: 11/20/18 06:43 Dose: 50 mcg Metoprolol Succinate (Toprol Xl -) 50 mg PO BID [facility] Last Admin: 11/20/18 09:30 Dose: 50 mg Pantoprazole Sodium (Protonix Iv) 40 mg IVPUSH DAILY [facility] Last Admin: 11/20/18 09:30 Dose: 40 mg Polyethylene Glycol (Miralax (For Daily Use) -) 17 gm PO BID [facility] Last Admin: 11/20/18 09:30 Dose: 17 gm Spironolactone (Aldactone -) 25 mg PO DAILY [facility] Last Admin: 11/20/18 09:30 Dose: 25 mg Torsemide (Demadex -) 100 mg PO BIDLASIX [facility] Last Admin: 11/20/18 13:43 Dose: 100 mg - Objective Vital Signs: Vital Signs Temperature 98.1 F 11/20/18 14:30 Pulse Rate 89 11/20/18 14:30 Respiratory Rate 20 11/20/18 14:30 Blood Pressure 123/70 11/20/18 14:30 O2 Sat by Pulse Oximetry (%) 94 L 11/20/18 10:00 Constitutional: Yes: No Distress, Calm Eyes: Yes: Conjunctiva Clear Cardiovascular: Yes: Regular Rate and Rhythm Respiratory: Yes: Regular Gastrointestinal: Yes: Normal Bowel Sounds, Soft, Abdomen, Obese Genitourinary: Yes: WNL Integumentary: Yes: WNL Neurological: Yes: Alert, Oriented Labs: CBC, BMP 11/20/18 05:00 11/20/18 05:00 INR, PTT INR 1.06 (0.83-1.09) 11/19/18 05:31 Problem List - Problems (1) Atrial fibrillation Code(s): I48.91 - UNSPECIFIED ATRIAL FIBRILLATION (2) CHF, acute on chronic Code(s): I50.9 - HEART FAILURE, UNSPECIFIED (3) COPD (chronic obstructive pulmonary disease) Code(s): J44.9 - CHRONIC OBSTRUCTIVE PULMONARY DISEASE, UNSPECIFIED (4) Hypoxemia Code(s): R09.02 - HYPOXEMIA (5) ASHD (arteriosclerotic heart disease) Code(s): I25.10 - ATHSCL HEART DISEASE OF [place] CORONARY ARTERY W/O ANG PCTRS (6) Acute kidney injury superimposed on CKD Code(s): N17.9 - ACUTE KIDNEY FAILURE, UNSPECIFIED; N18.9 - CHRONIC KIDNEY DISEASE, UNSPECIFIED (7) Acute on chronic respiratory failure with hypoxia and hypercapnia Code(s): J96.21 - ACUTE AND CHRONIC RESPIRATORY FAILURE WITH HYPOXIA; J96.22 - ACUTE AND CHRONIC RESPIRATORY FAILURE WITH HYPERCAPNIA (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 - OTHER SPECIFIED PLEURAL CONDITIONS (9) CAD (coronary artery disease) Code(s): I25.10 - ATHSCL HEART DISEASE OF [place] CORONARY ARTERY W/O ANG PCTRS Qualifiers: Coronary Disease-Associated Artery/Lesion type: bypass graft, autologous artery Associated angina: without angina Qualified Code(s): I25.810 - Atherosclerosis of coronary artery bypass graft(s) without angina pectoris (10) DM type 2 (diabetes mellitus, type 2) Code(s): E11.9 - TYPE 2 DIABETES MELLITUS WITHOUT COMPLICATIONS Qualifiers: Diabetes mellitus half-way insulin use: with superintendent container terminal use Chronic kidney disease stage: stage 4 (severe) (11) HTN (hypertension) Code(s): I10 - ESSENTIAL (PRIMARY) HYPERTENSION (12) S/P CABG (coronary artery bypass graft) Code(s): Z95.1 - PRESENCE OF AORTOCORONARY BYPASS GRAFT Assessment/Plan Acute hypoxemic respiratory failure/ Chronic respiratory failure on O2 NC Acute/Chronic heart failure KOFI on CKD Asbestosis CAD DM AFIB -- pt without hemoptysis, no cough/SOB, breathing comfortably, remains afebrile. -- continue current care monitor vitals
--- NOTE | 2018-11-20 20:10 | PN ---
Progress Note, Physician Chief Complaint: no complaints Family anxious for d/c to [facility] tomorrow Pt ambulating with 2 person assist as per Nursing staff - Current Medication List Current Medications: Active Medications Acetaminophen (Tylenol -) 650 mg PO Q6H PRN PRN Reason: HEADACHE Last Admin: 11/18/18 21:06 Dose: 650 mg Apixaban (Eliquis -) 2.5 mg PO BID [facility] Last Admin: 11/20/18 09:31 Dose: 2.5 mg Aspirin (Asa -) 81 mg PO DAILY [facility] Last Admin: 11/20/18 09:31 Dose: 81 mg Bisacodyl (Dulcolax Suppository -) 10 mg [place] DAILY PRN PRN Reason: CONSTIPATION Last Admin: 11/19/18 21:35 Dose: 10 mg Colchicine (Colcrys) 0.6 mg PO BID [facility] Last Admin: 11/20/18 09:30 Dose: 0.6 mg Febuxostat (Uloric -) 40 mg PO DAILY [facility] Last Admin: 11/20/18 09:31 Dose: 40 mg Insulin Aspart (Novolog Vial Sliding Scale -) 1 vial SQ [facility]; Protocol Insulin Detemir (Levemir Vial) 10 units SQ BID@0700,2200 [facility] Last Admin: 11/20/18 06:43 Dose: 10 units Levothyroxine Sodium (Synthroid -) 50 mcg PO DAILY@0700 [facility] Last Admin: 11/20/18 06:43 Dose: 50 mcg Metoprolol Succinate (Toprol Xl -) 50 mg PO BID [facility] Last Admin: 11/20/18 09:30 Dose: 50 mg Pantoprazole Sodium (Protonix Iv) 40 mg IVPUSH DAILY [facility] Last Admin: 11/20/18 09:30 Dose: 40 mg Polyethylene Glycol (Miralax (For Daily Use) -) 17 gm PO BID [facility] Last Admin: 11/20/18 09:30 Dose: 17 gm Spironolactone (Aldactone -) 25 mg PO DAILY [facility] Last Admin: 11/20/18 09:30 Dose: 25 mg Torsemide (Demadex -) 100 mg PO BIDLASIX [facility] Last Admin: 11/20/18 13:43 Dose: 100 mg - Objective Vital Signs: Vital Signs Temperature 98.0 F 11/20/18 18:00 Pulse Rate 90 11/20/18 18:00 Respiratory Rate 20 11/20/18 18:00 Blood Pressure 113/68 11/20/18 18:00 O2 Sat by Pulse Oximetry (%) 94 L 11/20/18 10:00 Constitutional: Yes: No Distress, Calm, Obese Eyes: Yes: Conjunctiva Clear, PERRL HENT: Yes: Atraumatic, Normocephalic Neck: Yes: Supple, Trachea Midline Cardiovascular: Yes: Regular Rate and Rhythm Respiratory: Yes: Regular, CTA Bilaterally Gastrointestinal: Yes: Soft, Abdomen, Obese Musculoskeletal: Yes: Joint Stiffness, Muscle Weakness Edema: Yes Edema: LLE: Trace, RLE: Trace Peripheral Pulses WNL: Yes Peripheral Pulses: Left Radial: 2+, Right Radial: 2+ Integumentary: Yes: WNL Neurological: Yes: Alert, Oriented ...Motor Strength: WNL Psychiatric: Yes: Alert, Oriented Labs: CBC, BMP 11/20/18 05:00 11/20/18 05:00 INR, PTT INR 1.06 (0.83-1.09) 11/19/18 05:31 Impression/Plan Impression/Plan: 88 year old male with a significant history of hypertension, hyperlipidemia, Afib (on Eliquis), CAD s/p CABG, CHF, , COPD (4L-home oxygen dependent with bipap at night), 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 Pt deemed stable for d/c to rehab facility. (1) Prophylactic measure Assessment/Plan: FEN continue diuretics monitor electrolyes DVT c/w apixaban Dispo maintain on tele DNR/DNI discharge planning for 11/21 Code(s): Z29.9 - ENCOUNTER FOR PROPHYLACTIC MEASURES, UNSPECIFIED (2) Dysphagia Assessment/Plan: Seen by speech pathologist MBS reviewed by pathologidt & receiving Dys chopped and nectar thick liquids. no mixed consistencies. Feed only when fully alert. HOB elevated to 90 degrees, chin flexed. Code(s): R13.10 - DYSPHAGIA, UNSPECIFIED (3) Acute on chronic systolic (congestive) heart failure Assessment/Plan: diuretics restarted c/w aldadctone and torsomide Code(s): I50.23 - ACUTE ON CHRONIC SYSTOLIC (CONGESTIVE) HEART FAILURE (4) CKD (chronic kidney disease) Assessment/Plan: avoid nephrotoxic agents monitor cr, electrolytes Code(s): N18.9 - CHRONIC KIDNEY DISEASE, UNSPECIFIED Qualifiers: Chronic kidney disease stage: stage 3 (moderate) Qualified Code(s): N18.3 - Chronic kidney disease, stage 3 (moderate) (5) Diabetes 1.5, managed as type 2 Assessment/Plan: BGM AC/qHS with novolog sliding scale Code(s): E13.9 - OTHER SPECIFIED DIABETES MELLITUS WITHOUT COMPLICATIONS (6) DNR (do not resuscitate) discussion Assessment/Plan: DNR/DNI , Visit type - Emergency Visit Emergency Visit: Yes ED Registration Date: 11/04/18 Care time: The patient presented to the Emergency Department on the above date and was hospitalized for further evaluation of their emergent condition. - New Patient This patient is new to me today: Yes Date on this admission: 11/20/18 - Critical Care Critical Care patient: No - Discharge Referral Referred to [facility] Med P.C.: No
[2018-11-21] MEDS ORDERED: PT OWN MED DRAWER 7, Y5N ONE ×3 (05:32→14:48)
[2018-11-21] MEDS: TORSEMIDE 100 MG TABLET PO SCH ×2 (06:04→14:55)
[2018-11-21] MEDS: INSULIN SLIDING SCALE (NOVOLOG) 1 VIAL SQ SCH ×3 (06:04→17:15)
[2018-11-21] MEDS: INSULIN (LEVEMIR) 100 UNITS/ML UNITS SQ SCH (06:04)
[2018-11-21] MEDS: LEVOTHYROXINE NA 50 MCG TABLET (FP) PO SCH (06:05)
[2018-11-21] MEDS ORDERED: INSULIN (LEVEMIR) 100 UNITS/ML UNITS SQ ONE (06:30)
[2018-11-21] MEDS ORDERED: INSULIN SLIDING SCALE (NOVOLOG) 1 VIAL SQ ONE (06:30)
[2018-11-21 07:44] LABS: HEMATOCRIT 38.4 % (35.4-49); HEMOGLOBIN 12.8 GM/dL (11.7-16.9); MCH 29.8 pg (25.7-33.7); MCHC 33.3 g/dl (32.0-35.9); MEAN CELL VOLUME 89.5 fl (80-96); PLATELET COUNT 207 K/MM3 (134-434); RBC 4.29 M/mm3 (4.00-5.60); RDW 18.2 % (11.9-15.9); WHITE BLOOD COUNT 9.2 K/mm3 (4.0-10.0)
[2018-11-21 07:55] LABS: ALBUMIN 3.1 g/dl (3.4-5.0); BILIRUBIN,TOTAL 0.6 mg/dL (0.2-1); BLOOD UREA NITROGEN 40.5 mg/dL (7-18); CALCIUM 9.1 mg/dL (8.5-10.1); CREATININE 1.8 mg/dL (0.55-1.3); POTASSIUM 4.2 mmol/L (3.5-5.1)
--- NOTE | 2018-11-21 10:31 | PN ---
Progress Note, CONTRACT RUNNER - Note Progress Note: Selected Entries 11/16/18 11/16/18 11/16/18 10:00 11:18 15:54 Breakfast 100% Lunch 75% Temperature 97.4 F L 11/16/18 11/16/18 11/16/18 18:00 21:15 23:45 Breakfast Lunch Temperature 97.2 F L 98.4 F 97.9 F 11/17/18 11/17/18 11/17/18 02:00 06:00 10:35 Breakfast 75% Lunch Temperature 97.4 F L 97.6 F Laboratory Tests 11/17/18 06:15 WBC 9.2 Selected Entries 11/19/18 11/19/18 11/19/18 02:00 06:00 12:20 Breakfast 100% Lunch 100% Supper Temperature 98.1 F 97.2 F L 11/19/18 11/19/18 11/19/18 14:00 17:19 19:20 Breakfast Lunch Supper 100% Temperature 98.1 F 98.1 F 11/19/18 11/20/18 11/20/18 22:00 02:00 06:00 Breakfast Lunch Supper Temperature 98.2 F 98.6 F 98.1 F 11/20/18 11/20/18 11/20/18 08:27 14:30 18:00 Breakfast Lunch Supper Temperature 98.5 F 98.1 F 98.0 F 11/20/18 11/20/18 11/21/18 21:58 22:00 02:00 Breakfast Lunch Supper 100% Temperature 98.1 F 97.9 F 11/21/18 11/21/18 06:00 08:48 Breakfast Lunch Supper Temperature 97.6 F 98.2 F Laboratory Tests 11/20/18 11/21/18 05:00 06:10 WBC 8.8 9.2 MBS reviewed . Pt receiving Dys chopped and nectar thick liquids. Pt no longer coughing/choking. On thin liquids, pureed soup, no mixed consistencies. Feed only when fully alert. HOB elevated to 90 degrees, chin flexed. 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 She reported that he coughed frequently after meals at home but no longer coughs with diet change.
[2018-11-21] MEDS: COLCHICINE 0.6 MG CAP PO SCH (11:05)
[2018-11-21] MEDS: ASPIRIN 81 MG CHEWABLE TABLETS PO SCH (11:05)
[2018-11-21] MEDS: SPIRONOLACTONE 25 MG TABLET (FP) PO SCH (11:05)
[2018-11-21] MEDS: APIXABAN 2.5 MG TABLET PO SCH (11:06)
[2018-11-21] MEDS: PANTOPRAZOLE SODIUM 40 MG VIAL IVPUSH SCH (11:07)
[2018-11-21] MEDS: POLYETHYLENE GLYCOL 3350 119 GM BTL PO SCH (11:15)
[2018-11-21] MEDS: FEBUXOSTAT 40 MG TAB PO SCH (11:30)
--- NOTE | 2018-11-21 11:43 | PN ---
Progress Note (short form) - Note Progress Note: s: no chest pain, palps, dizziness, sob Current Medications Acetaminophen (Tylenol -) 650 mg PO Q6H PRN PRN Reason: HEADACHE Last Admin: 11/18/18 21:06 Dose: 650 mg Apixaban (Eliquis -) 2.5 mg PO BID [facility] Last Admin: 11/21/18 11:06 Dose: 2.5 mg Aspirin (Asa -) 81 mg PO DAILY [facility] Last Admin: 11/21/18 11:05 Dose: 81 mg Bisacodyl (Dulcolax Suppository -) 10 mg [place] DAILY PRN PRN Reason: CONSTIPATION Last Admin: 11/19/18 21:35 Dose: 10 mg Colchicine (Colcrys) 0.6 mg PO BID [facility] Last Admin: 11/21/18 11:05 Dose: 0.6 mg Febuxostat (Uloric -) 40 mg PO DAILY [facility] Last Admin: 11/21/18 11:30 Dose: 40 mg Insulin Aspart (Novolog Vial Sliding Scale -) 1 vial SQ [facility]; Protocol Last Admin: 11/21/18 11:20 Dose: 11 units Insulin Detemir (Levemir Vial) 10 units SQ BID@0700,2200 [facility] Last Admin: 11/21/18 06:04 Dose: 10 units Levothyroxine Sodium (Synthroid -) 50 mcg PO DAILY@0700 [facility] Last Admin: 11/21/18 06:05 Dose: 50 mcg Metoprolol Succinate (Toprol Xl -) 50 mg PO BID [facility] Last Admin: 11/21/18 11:06 Dose: 50 mg Pantoprazole Sodium (Protonix Iv) 40 mg IVPUSH DAILY [facility] Last Admin: 11/21/18 11:07 Dose: 40 mg Polyethylene Glycol (Miralax (For Daily Use) -) 17 gm PO BID [facility] Last Admin: 11/21/18 11:15 Dose: Not Given Spironolactone (Aldactone -) 25 mg PO DAILY [facility] Last Admin: 11/21/18 11:05 Dose: 25 mg Torsemide (Demadex -) 100 mg PO BIDLASIX [facility] Last Admin: 11/21/18 06:04 Dose: 100 mg Vital Signs Period Temp Pulse Resp BP Sys/Junior Pulse Ox Last 24 Hr 97.6 F-98.2 F 78-102 18-20 113-127/42-70 94-100 Constitutional: Yes: No Distress, Calm Eyes: No: Sclera Icterus HENT: No: Nasal Congestion Cardiovascular: Yes: Regular Rate and Rhythm, S1, S2, Other (PMI non diplaced). No: JVD (prohibitively tds exam), Gallop, Murmur Respiratory: Yes: CTA Bilaterally. No: Accessory Muscle Use, Rales, Wheezes Gastrointestinal: Yes: Normal Bowel Sounds, Soft. No: Tenderness Extremities: No: Cyanosis Edema: No Integumentary: No: Jaundice Neurological: Yes: Alert, Oriented (x3) Psychiatric: No: Agitated Assessment/Plan Echo 04/2018: EF 45%, mod MR/TR, at least mild , moderate to severe PHTN Nuclear stress 2017: Pharm: small inferolat infarct, mild arlin-infarct ischemia , Overall EF 35-40% CXR: "vs prior, again noted is...congestive changes" ECG: afib, nonsp TWA lateral leads--no change vs prior tele: afib, HR controlled IMP: -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 (home regimen: torsemide 100 bid, spironolactone 25, metopr. no BETTY/ARB due to CKD) -Chronic respiratory failure -Asbestos lung dz/ ILD, on home O2. 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 cr stable. continue po diuretics. -awaiting snf, stable from cardiac perspective
--- NOTE | 2018-11-21 12:13 | PN ---
Progress Note, Physician History of Present Illness: stable no new issues weak - Current Medication List Current Medications: Active Medications Acetaminophen (Tylenol -) 650 mg PO Q6H PRN PRN Reason: HEADACHE Last Admin: 11/18/18 21:06 Dose: 650 mg Apixaban (Eliquis -) 2.5 mg PO BID [facility]EDS AT [facility] Last Admin: 11/21/18 11:06 Dose: 2.5 mg Aspirin (Asa -) 81 mg PO DAILY [facility] 234 [facility]EDS AT [facility] Last Admin: 11/21/18 11:05 Dose: 81 mg Bisacodyl (Dulcolax Suppository -) 10 mg [place] DAILY PRN PRN Reason: CONSTIPATION Last Admin: 11/19/18 21:35 Dose: 10 mg Colchicine (Colcrys) 0.6 mg PO BID [facility] 234 [facility]EDS AT [facility] Last Admin: 11/21/18 11:05 Dose: 0.6 mg Febuxostat (Uloric -) 40 mg PO DAILY [facility] 234 [facility]EDS AT [facility] Last Admin: 11/21/18 11:30 Dose: 40 mg Insulin Aspart (Novolog Vial Sliding Scale -) 1 vial SQ [facility]; Protocol Last Admin: 11/21/18 11:20 Dose: 11 units Insulin Detemir (Levemir Vial) 10 units SQ BID@0700,2200 [facility] 234 [facility]EDS AT [facility] Last Admin: 11/21/18 06:04 Dose: 10 units Levothyroxine Sodium (Synthroid -) 50 mcg PO DAILY@0700 [facility] 234 [facility]EDS AT [facility] Last Admin: 11/21/18 06:05 Dose: 50 mcg Metoprolol Succinate (Toprol Xl -) 50 mg PO BID [facility] 234 [facility]S [facility] Last Admin: 11/21/18 11:06 Dose: 50 mg Pantoprazole Sodium (Protonix Iv) 40 mg IVPUSH DAILY [facility] 234 [facility]S [facility] Last Admin: 11/21/18 11:07 Dose: 40 mg Polyethylene Glycol (Miralax (For Daily Use) -) 17 gm PO BID [facility] 234 [facility]S [facility] Last Admin: 11/21/18 11:15 Dose: Not Given Spironolactone (Aldactone -) 25 mg PO DAILY [facility] 234 [facility]S [facility] Last Admin: 11/21/18 11:05 Dose: 25 mg Torsemide (Demadex -) 100 mg PO BIDLASIX [facility]CLUDE 234 BEDS AT [facility] Last Admin: 11/21/18 06:04 Dose: 100 mg - Objective Vital Signs: Vital Signs Temperature 98.2 F 11/21/18 08:48 Pulse Rate 102 H 11/21/18 08:48 Respiratory Rate 20 11/21/18 08:48 Blood Pressure 127/66 11/21/18 08:48 O2 Sat by Pulse Oximetry (%) 97 11/21/18 08:05 Constitutional: Yes: No Distress, Calm, Obese Cardiovascular: Yes: S1, S2 Respiratory: Yes: Regular, Poor Air Entry (bases) Gastrointestinal: Yes: Normal Bowel Sounds, Soft Musculoskeletal: Yes: WNL Extremities: Yes: WNL Neurological: Yes: Alert, Oriented Psychiatric: Yes: Alert, Oriented Labs: CBC, BMP 11/21/18 06:10 11/21/18 06:10 INR, PTT INR 1.06 (0.83-1.09) 11/19/18 05:31 Assessment/Plan Problem List - Problems (1) Atrial fibrillation Code(s): I48.91 - UNSPECIFIED ATRIAL FIBRILLATION Qualifiers: (2) CHF, acute on chronic Code(s): I50.9 - HEART FAILURE, UNSPECIFIED Qualifiers: (3) COPD (chronic obstructive pulmonary disease) Code(s): J44.9 - CHRONIC OBSTRUCTIVE PULMONARY DISEASE, UNSPECIFIED (4) Hypoxemia Code(s): R09.02 - HYPOXEMIA (5) ASHD (arteriosclerotic heart disease) Code(s): I25.10 - ATHSCL HEART DISEASE OF [place] CORONARY ARTERY W/O ANG PCTRS (6) Acute kidney injury superimposed on CKD Code(s): N17.9 - ACUTE KIDNEY FAILURE, UNSPECIFIED; N18.9 - CHRONIC KIDNEY DISEASE, UNSPECIFIED (7) Acute on chronic respiratory failure with hypoxia and hypercapnia Code(s): J96.21 - ACUTE AND CHRONIC RESPIRATORY FAILURE WITH HYPOXIA; J96.22 - ACUTE AND CHRONIC RESPIRATORY FAILURE WITH HYPERCAPNIA (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 - OTHER SPECIFIED PLEURAL CONDITIONS (9) CAD (coronary artery disease) Code(s): I25.10 - ATHSCL HEART DISEASE OF [place] CORONARY ARTERY W/O ANG PCTRS Qualifiers: Coronary Disease-Associated Artery/Lesion type: bypass graft, autologous artery Associated angina: without angina Qualified Code(s): I25.810 - Atherosclerosis of coronary artery bypass graft(s) without angina pectoris (10) DM type 2 (diabetes mellitus, type 2) Code(s): E11.9 - TYPE 2 DIABETES MELLITUS WITHOUT COMPLICATIONS Qualifiers: Diabetes mellitus alf insulin use: with intermediate designer use Chronic kidney disease stage: stage 4 (severe) (11) HTN (hypertension) Code(s): I10 - ESSENTIAL (PRIMARY) HYPERTENSION (12) S/P CABG (coronary artery bypass graft) Code(s): Z95.1 - PRESENCE OF AORTOCORONARY BYPASS GRAFT Assessment/Plan 88 y.o. 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
--- NOTE | 2018-11-21 12:51 | PN ---
Progress Note (short form) - Note Progress Note: C/o LE Pain, SOB. Vital Signs Temp 98.2 F 11/21/18 08:48 Pulse 102 H 11/21/18 08:48 Resp 20 11/21/18 08:48 BP 127/66 11/21/18 08:48 Pulse Ox 97 11/21/18 08:05 Intake & Output 11/20/18 11/21/18 11/21/18 23:59 11:59 23:59 Intake Total 240 450 320 Balance 240 450 320 Intake: Oral 240 450 320 Other: Voiding Method Incontinent Bedside Commode Bedside Commode # Unmeasured Voids Void 2 2 Bowel Movement Yes Yes Yes # Bowel Movements 1 1 1 AAwake, alert Neck no JVD Lungs with decreased B/B BS Heart S1S2 irregular, irregular Abdomen active BS Ext-no CCE Laboratory Results - last 24 hr 11/19/18 11/20/18 11/20/18 17:47 17:11 21:50 WBC RBC Hgb Hct MCV MCH MCHC RDW Plt Count MPV Sodium Potassium Chloride Carbon Dioxide Anion Gap BUN Creatinine Est GFR (CKD-EPI)AfAm Est GFR (CKD-EPI)NonAf POC Glucometer 401 352 258 Random Glucose Calcium Magnesium Total Bilirubin AST ALT Alkaline Phosphatase Total Protein Albumin 11/21/18 11/21/18 11/21/18 06:01 06:10 06:10 WBC 9.2 RBC 4.29 Hgb 12.8 Hct 38.4 MCV 89.5 MCH 29.8 MCHC 33.3 RDW 18.2 H Plt Count 207 MPV 9.0 Sodium 135 L Potassium 4.2 Chloride 85 L Carbon Dioxide 45 H Anion Gap 6 L BUN 40.5 H Creatinine 1.8 H Est GFR (CKD-EPI)AfAm 38.37 Est GFR (CKD-EPI)NonAf 33.10 POC Glucometer 188 Random Glucose 187 H Calcium 9.1 Magnesium 2.0 Total Bilirubin 0.6 AST 85 H ALT 143 H Alkaline Phosphatase 106 Total Protein 6.0 L Albumin 3.1 L 11/21/18 11:18 WBC RBC Hgb Hct MCV MCH MCHC RDW Plt Count MPV Sodium Potassium Chloride Carbon Dioxide Anion Gap BUN Creatinine Est GFR (CKD-EPI)AfAm Est GFR (CKD-EPI)NonAf POC Glucometer 398 Random Glucose Calcium Magnesium Total Bilirubin AST ALT Alkaline Phosphatase Total Protein Albumin Current Active Problems Problem DM 2 Status Onset Acute kidney injury Acute Acute respiratory failure with hypercapnia Acute Atrial fibrillation Acute CHF, acute on chronic Acute COPD (chronic obstructive pulmonary disease) Acute COPD (chronic obstructive pulmonary disease) with acute bronchitis Acute DNI (do not intubate) Acute DNR (do not resuscitate) Acute DNR (do not resuscitate) discussion Acute Dysphagia Acute Hyponatremia Acute Hypoxemia Acute Prophylactic measure Acute Plan Continue diuretics BMP Add senna PO Increase Levemir 30 units BID BIPAP/NIV Problem List - Problems (1) Acute kidney injury superimposed on CKD Code(s): N17.9 - ACUTE KIDNEY FAILURE, UNSPECIFIED; N18.9 - CHRONIC KIDNEY DISEASE, UNSPECIFIED (2) Acute on chronic respiratory failure with hypoxia and hypercapnia Code(s): J96.21 - ACUTE AND CHRONIC RESPIRATORY FAILURE WITH HYPOXIA; J96.22 - ACUTE AND CHRONIC RESPIRATORY FAILURE WITH HYPERCAPNIA (3) Acute on chronic systolic (congestive) heart failure Code(s): I50.23 - ACUTE ON CHRONIC SYSTOLIC (CONGESTIVE) HEART FAILURE (4) CKD (chronic kidney disease) Code(s): N18.9 - CHRONIC KIDNEY DISEASE, UNSPECIFIED Qualifiers: Chronic kidney disease stage: stage 3 (moderate) Qualified Code(s): N18.3 - Chronic kidney disease, stage 3 (moderate) (5) Diabetes 1.5, managed as type 2 Code(s): E13.9 - OTHER SPECIFIED DIABETES MELLITUS WITHOUT COMPLICATIONS (6) DNR (do not resuscitate) discussion Code(s): Z71.89 - OTHER SPECIFIED COUNSELING (7) Hyponatremia Code(s): E87.1 - HYPO-OSMOLALITY AND HYPONATREMIA
[2018-11-21] MEDS ORDERED: INSULIN (LEVEMIR) 100 UNITS/ML UNITS SQ SCH (13:07)
--- NOTE | 2018-11-21 13:09 | PN ---
Progress Note (short form) - Note Progress Note: PULMONARY Denies shortness of breath or chest pain. No further hemoptysis. Vital Signs Period Temp Pulse Resp BP Sys/Junior Pulse Ox Last 24 Hr 97.6 F-98.2 F 78-102 18-20 113-127/42-70 94-100 Gen: NAD at rest Heart: RRR Lung: bibasilar rales Abd: soft, nontender Ext: no edema CBC, BMP 11/21/18 06:10 11/21/18 06:10 Active Medications Acetaminophen (Tylenol -) 650 mg PO Q6H PRN PRN Reason: HEADACHE Last Admin: 11/18/18 21:06 Dose: 650 mg Apixaban (Eliquis -) 2.5 mg PO BID [facility] Last Admin: 11/21/18 11:06 Dose: 2.5 mg Aspirin (Asa -) 81 mg PO DAILY [facility] Last Admin: 11/21/18 11:05 Dose: 81 mg Bisacodyl (Dulcolax Suppository -) 10 mg [place] DAILY PRN PRN Reason: CONSTIPATION Last Admin: 11/19/18 21:35 Dose: 10 mg Colchicine (Colcrys) 0.6 mg PO BID [facility] Last Admin: 11/21/18 11:05 Dose: 0.6 mg Febuxostat (Uloric -) 40 mg PO DAILY [facility] Last Admin: 11/21/18 11:30 Dose: 40 mg Insulin Aspart (Novolog Vial Sliding Scale -) 1 vial SQ [facility]; Protocol Last Admin: 11/21/18 11:20 Dose: 11 units Insulin Detemir (Levemir Vial) 30 units SQ BID@0700,2200 [facility] Levothyroxine Sodium (Synthroid -) 50 mcg PO DAILY@0700 [facility] Last Admin: 11/21/18 06:05 Dose: 50 mcg Metoprolol Succinate (Toprol Xl -) 50 mg PO BID [facility] Last Admin: 11/21/18 11:06 Dose: 50 mg Pantoprazole Sodium (Protonix Iv) 40 mg IVPUSH DAILY [facility] Last Admin: 11/21/18 11:07 Dose: 40 mg Polyethylene Glycol (Miralax (For Daily Use) -) 17 gm PO BID [facility] Last Admin: 11/21/18 11:15 Dose: Not Given Spironolactone (Aldactone -) 25 mg PO DAILY [facility] Last Admin: 11/21/18 11:05 Dose: 25 mg Torsemide (Demadex -) 100 mg PO BIDLASIX [facility] Last Admin: 11/21/18 06:04 Dose: 100 mg A/P Acute on Chronic Hypoxic and Hypercapneic Respiratory Failure improving Acute on Chronic Systolic Heart Failure r/o Acute COPD Exacerbation Interstitial Lung Disease Pulmonary HTN Atrial Fibrillation CAD s/p CABG Acute on Chronic Renal Failure JUAN - continue torsemide - monitor urine output, creatinine - monitor off steroids - inhaled bronchodilators - rate control - continue anticoagulation - BiPAP at night and as needed during day - check ABG on home O2 when ready for discharge to assess for home NIPPV - O2 to keep SpO2 88-92% - d/c planning
[2018-11-21 15:00] VITALS: TEMP 98
--- NOTE | 2018-11-21 16:38 | DS ---
Physical Examination Vital Signs: Vital Signs Temperature 98.0 F 11/21/18 13:41 Pulse Rate 85 11/21/18 13:41 Respiratory Rate 18 11/21/18 13:41 Blood Pressure 102/57 L 11/21/18 13:41 O2 Sat by Pulse Oximetry (%) 97 11/21/18 10:00 Constitutional: Yes: Calm Eyes: Yes: Conjunctiva Clear, EOM Intact HENT: Yes: Atraumatic, Normocephalic Neck: Yes: Supple, Trachea Midline Cardiovascular: Yes: Pulse Irregular Respiratory: Yes: Regular, CTA Bilaterally Gastrointestinal: Yes: Normal Bowel Sounds, Soft, Abdomen, Obese ...Rectal Exam: Yes: Deferred Renal/: No: Bladder Distention, CVA Tenderness - Left, CVA Tenderness - Right Extremities: No: Amputation, Calf Tenderness Edema: No Peripheral Pulses WNL: No Integumentary: Yes: WNL Neurological: Yes: Alert, Oriented ...Motor Strength: WNL Psychiatric: Yes: Alert, Oriented. No: Agitated, Suicidal Ideation Labs: CBC, BMP 11/21/18 06:10 11/21/18 06:10 Discharge Summary Reason For Visit: ACUTE KIDNEY INJURY, ACUTE RESPIRATORY FAILURE WIT Current Active Problems Acute kidney injury (Acute) Acute respiratory failure with hypercapnia (Acute) Atrial fibrillation (Acute) CHF, acute on chronic (Acute) COPD (chronic obstructive pulmonary disease) (Acute) COPD (chronic obstructive pulmonary disease) with acute bronchitis (Acute) DNI (do not intubate) (Acute) DNR (do not resuscitate) (Acute) DNR (do not resuscitate) discussion (Acute) Dysphagia (Acute) Hyponatremia (Acute) Hypoxemia (Acute) Prophylactic measure (Acute) Hospital Course: IMPROVED Condition: Guarded - Instructions Diet, Activity, Other Instructions: BIPAP 6/8 pressure at night 2 L o2 nc daytime Disposition: SNF FACILITY - Home Medications Comprehensive Discharge Medication List: Ambulatory Orders Sitagliptin Phosphate [Januvia -] 25 mg PO DAILY@0700 #90 tab 10/14/14 Spironolactone [Aldactone -] 25 mg PO DAILY #30 tablet 03/31/17 Aspirin 81 mg PO DAILY 04/10/17 Insulin Glargine,Hum.rec.anlog [Lantus] 60 unit SQ DAILY 04/10/17 Levothyroxine [Synthroid -] 0.05 mg PO DAILY 02/20/18 Linaclotide [Linzess] 290 mcg PO DAILY 02/20/18 Metoprolol Succinate [Toprol Xl] 50 mg PO BID 02/20/18 Apixaban [Eliquis -] 2.5 mg PO BID 03/30/18 Colchicine [Mitigare] 0.6 mg PO BID 04/10/18 Torsemide 100 mg PO BID 05/19/18 Bisacodyl Suppository [Dulcolax Suppository -] 10 mg [place] DAILY PRN supp.rect 06/06 Levothyroxine [Synthroid -] 50 mcg PO DAILY@0700 tablet 11/21/18
[2018-11-21 17:31] VITALS: BP 100/62; PULSE 81
[2018-11-21] MEDS ORDERED: SENNOSIDES 8.6MG TABLET (FP) PO SCH (22:00)
== END 2018-11-21 19:59 | DRG 291 ==
LOC: JER 19:21 → JERBED 21:09 → J4W 11-05 14:44 → JICU 11-06 18:06 → J5S 11-16 20:56 → J4S 11-16 23:53
PROVIDERS: ADMIT Internal Medicine; ATTEND Internal Medicine
PROC: 5A09557 Assistance with Respiratory Ventilation, Greater than 96 Consecutive Hours, Continuous Positive Airway Pressure (ICD-10-PCS; principal; 2018-11-06)
DX: I13.0 Hypertensive heart and chronic kidney disease with heart failure and stage 1 through stage 4 chronic kidney disease, or unspecified chronic kidney disease (principal); I50.23 Acute on chronic systolic (congestive) heart failure; J96.01 Acute respiratory failure with hypoxia; J96.02 Acute respiratory failure with hypercapnia; N17.9 Acute kidney failure, unspecified; J94.8 Other specified pleural conditions; E87.1 Hypo-osmolality and hyponatremia; J98.11 Atelectasis; N18.4 Chronic kidney disease, stage 4 (severe); J84.9 Interstitial pulmonary disease, unspecified; J44.1 Chronic obstructive pulmonary disease with (acute) exacerbation; E11.22 Type 2 diabetes mellitus with diabetic chronic kidney disease; I48.2 Chronic atrial fibrillation; I25.10 Atherosclerotic heart disease of native coronary artery without angina pectoris; N40.0 Benign prostatic hyperplasia without lower urinary tract symptoms; I08.1 Rheumatic disorders of both mitral and tricuspid valves; E78.00 Pure hypercholesterolemia, unspecified; I27.20 Pulmonary hypertension, unspecified; J44.9 Chronic obstructive pulmonary disease, unspecified; F03.90 Unspecified dementia, unspecified severity, without behavioral disturbance, psychotic disturbance, mood disturbance, and anxiety; E11.9 Type 2 diabetes mellitus without complications; J20.9 Acute bronchitis, unspecified; M79.89 Other specified soft tissue disorders; M10.9 Gout, unspecified; R56.9 Unspecified convulsions; E66.8 Other obesity; Z68.38 Body mass index [BMI] 38.0-38.9, adult; R91.1 Solitary pulmonary nodule; R00.0 Tachycardia, unspecified; Z99.81 Dependence on supplemental oxygen; G47.33 Obstructive sleep apnea (adult) (pediatric); Z90.5 Acquired absence of kidney; Z95.1 Presence of aortocoronary bypass graft; Z77.090 Contact with and (suspected) exposure to asbestos; Z71.89 Other specified counseling
CPT/HCPCS: 36415; 36600; 71045-TC-FY; 71250-TC; 74230-TC-FY; 80048; 80053; 82550; 82803; 82962; 83735; 83880; 84100; 84484; 85025; 85027; 85610; 85730; 87040; 87899; 92611-GN; 93005; 93010; 94640; 94660; 97116-GP; 97162-GP; 99285-25

== ENCOUNTER 2019-01-20 15:15 | Inpatient (IN) | payer OTHER ==
--- NOTE | 2019-01-20 16:12 | PDOC ---
History of Present Illness - General Chief Complaint: Shortness of Breath Stated Complaint: CHEST PAIN Time Seen by Provider: 01/20/19 15:49 - History of Present Illness Initial Comments: 01/20/19 16:16 Pt is an 88 y/o M with a significant past medical history of HTN, HLD, Afib (on Eliquis), CAD s/p CABG, CHF, , COPD (3L), Restrictive Lung Disease (Asbestos Exposure), DM, UC, BPH, Gout, and Mild Dementia who presents to our emergency department due to 5 days of diarrhea and intermittent chest pain. Per son at bedside, pt has been rather weak, unable to stand on his feet; pt normally is able to ambulate on his own per his son. Past History - Past Medical History Allergies/Adverse Reactions: Allergies Allergy/AdvReac Type Severity Reaction Status Date / Time No Known Allergies Allergy Verified 11/04/18 20:08 Home Medications: Ambulatory Orders Sitagliptin Phosphate [Januvia -] 25 mg PO DAILY@0700 #90 tab 10/14/14 Spironolactone [Aldactone -] 25 mg PO DAILY #30 tablet 03/31/17 Aspirin 81 mg PO DAILY 04/10/17 Insulin Glargine,Hum.rec.anlog [Lantus] 40 unit SQ DAILY 04/10/17 Metoprolol Succinate [Toprol Xl] 50 mg PO BID 02/20/18 Apixaban [Eliquis -] 2.5 mg PO BID 03/30/18 Colchicine [Mitigare] 0.6 mg PO BID 04/10/18 Torsemide 100 mg PO BID 05/19/18 Acetaminophen [Tylenol] 650 mg PO Q4H PRN 01/21/19 Anemia: No Asthma: No Cancer: No Cardiac Disorders: Yes (Atrial Fib, CAD, CABG, aortic stenosis) CVA: No COPD: Yes (O2 Dep 4 L) CHF: Yes Dementia: Yes (mild) Diabetes: Yes GI Disorders: Yes (ulcerative colitis) Disorders: Yes (bph) HTN: Yes Hypercholesterolemia: Yes Liver Disease: No Seizures: No Thyroid Disease: No Lung CA: No (MESOTHELIOMA) - Surgical History Abdominal Surgery: No Appendectomy: No Cardiac Surgery: Yes (CABG) Cholecystectomy: No Lung Surgery: No Neurologic Surgery: No Orthopedic Surgery: No - Immunization History Immunization Up to Date: Yes - Psycho Social/Smoking Cessation Hx Smoking History: Former smoker Have you smoked in the past 12 months: No If you are a former smoker, when did you quit?: 66 years old Hx Alcohol Use: No Drug/Substance Use Hx: No Substance Use Type: None Hx Substance Use Treatment: No *Physical Exam - Vital Signs Last Vital Signs Temp Pulse Resp BP Pulse Ox 98.7 F 73 18 120/63 98 01/20/19 15:31 01/20/19 15:31 01/20/19 15:31 01/20/19 15:31 01/20/19 15:33 - Physical Exam General Appearance: Yes: Mild Distress HEENT: positive: EOMI. negative: Scleral Icterus (R), Scleral Icterus (L) Respiratory/Chest: positive: Crackles (Crackles appreciated r lung base ) Cardiovascular: positive: S1, S2, Irregular Gastrointestinal/Abdominal: positive: Tender (right abdominal tenderness ) Extremity: positive: Pedal Edema (2+ pedel edema b/l ) Heart Score/ECG Review - ECG Impressions Comment:: afib at 70, L axis, interventricular conduction delay, abnl ekg, no acute st/t wave findings ED Treatment Course - LABORATORY CBC & Chemistry Diagram: 01/21/19 05:22 01/21/19 05:52 - RADIOLOGY Radiology Studies Ordered: Category Date Time Status CHEST X-RAY PORTABLE* [RAD] Stat Radiology 01/20/19 16:11 Ordered Medical Decision Making - Medical Decision Making -cbc w/ diff, cmp, bnp, cxr, ekg, cardiac profile, stool sample, CTAP (pt with abdominal pain and diarrhea, concern for colitis) -Will also add on lactic acid, ABG, and C-diff toxin/antigen in light of recent diarrhea. -Trop neg. CXR improving congestion when compared to 10/2018 -Bedside Sono performed by Dr aldrich reveals no Gb pathology and a neg menjivar. Pt admitted to Hospitalist service for possible CHF exacerbation (BNP 2949.4). Also KOFI on CKD, Cr 3.0, highest it has ever been. Discharge - Discharge Information Problems reviewed: Yes Clinical Impression/Diagnosis: CHF, acute on chronic, Acute kidney injury - Follow up/Referral - Patient Discharge Instructions - Post Discharge Activity
[2019-01-20] MEDS ORDERED: LACTATED RINGERS SOLUTION 1,000 ML/1,000 ML INFUS.BAG IV SCH (16:15)
--- NOTE | 2019-01-20 16:19 | PDOC ---
Attending Attestation - Resident Resident Name: Sunil Chicas - ED Attending Attestation I have performed the following: I have examined & evaluated the patient, The case was reviewed & discussed with the resident, I agree w/resident's findings & plan, Exceptions are as noted - HPI HPI: 01/20/19 17:11 88yo male with diarrhea x 5 episodes a day and weakness since yesterday. Pt denies f/c. States had L sided cp under his breast this AM which has since resolved. Pt denies dysuria. Pt wears home O2 NC. Pt c/o sob with the cp ths AM. Pt appears dry and dehydrated. 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 Pt denies falls. No radiation of the cp earlier today. - Physicial Exam PE: 01/20/19 17:12 Gen: aaox3, mild conversational dyspnea heent: EOMI, dry mm heart: +s1s2 irreg irreg lungs: crackles at the bases abd: soft, RLQ ttp, no rebound or guarding, no ecchymosis ext: 1+ pitting edema to LE, generalized weaknes to LE, sensation intact - Medical Decision Making 01/20/19 17:13 a/p: 88yo male with diarrhea and cp -concern for abd pain and diarrhea - will send labs, stool sample, ct abd/pelvis -pt also with cp - concern for acs - had sob, hx of afib, will send trop, ekg, cxr, bnp - pt with very dry mm - gently ivf hydration -will place on cardiac exercise specialist -pt will need hospitalization given symptoms -stool for c diff and culture ordered -will monitor and reassess 01/20/19 17:44 pt with KOFI on CKD pt with elevated lft bedside sono of the gb does not show stones, no gb wall thickening, no pericholecystic fluid, neg murphys 01/20/19 17:44 trop neg 01/20/19 19:14 pt with diarrhea - will send stool case discussed with Dr. [place] who accepts pt to service Heart Score/ECG Review - ECG Intrepretation Comment:: 01/20/19 17:16 afib at 70, L axis, interventricular conduction delay, abnl ekg, no acute st/t wave findings
[2019-01-20] MEDS ORDERED: LACTATED RINGERS SOLUTION 1000 ML INFUS.BAG IV ONE (16:42)
[2019-01-20 16:55] LABS: BASO % 1.1 % (0-2.0); EOS % 0.2 % (0-4.5); HEMATOCRIT 42.1 % (35.4-49); HEMOGLOBIN 14.7 GM/dL (11.7-16.9); LYMPH % 22.1 % (8-40); MCH 30.3 pg (25.7-33.7); MEAN CELL VOLUME 86.5 fl (80-96); MEAN PLT VOLUME 9.7 fl (7.5-11.1); MONO % 24.9 % (3.8-10.2); NEUT % 51.7 % (42.8-82.8); PLATELET COUNT 236 K/MM3 (134-434); RBC 4.86 M/mm3 (4.00-5.60); RDW 19.5 % (11.9-15.9); WHITE BLOOD COUNT 6.9 K/mm3 (4.0-10.0)
[2019-01-20 17:07] LABS: INR 1.31 (0.83-1.09); PROTHROMBIN TIME (PATIENT) 15.5 SEC (9.7-13.0)
[2019-01-20 17:24] LABS: ALBUMIN 3.8 g/dl (3.4-5.0); BILIRUBIN,TOTAL 0.9 mg/dL (0.2-1); BLOOD UREA NITROGEN 94.5 mg/dL (7-18); CALCIUM 8.5 mg/dL (8.5-10.1); POTASSIUM 3.8 mmol/L (3.5-5.1); TOT PROT 7.4 g/dl (6.4-8.2)
[2019-01-20 17:53] LABS: ANISOCYTOSIS 2+; PLATELET ESTIMATE ADEQUATE
[2019-01-20 18:49] LABS: ARTERIAL BLD GAS O2 SATURATION 97.9 % (95-98); ARTERIAL BLOOD GAS BASE EXCESS -1.1 meq/l (-2-2); ARTERIAL BLOOD GAS PCO2 32.9 mmHg (35-45); ARTERIAL BLOOD GAS PO2 110 mmHg (80-100); ARTERIAL BLOOD GAS pH 7.44 (7.35-7.45); CARBOXYHEMOGLOBIN 1.1 % (0-2)
[2019-01-20 18:52] LABS: ALLENS TEST POSITIVE
--- NOTE | 2019-01-20 20:52 | HP ---
CHIEF COMPLAINT: diarrhea, chest pain PCP: Pradip HISTORY OF PRESENT ILLNESS: 88 y/o M with a significant past medical history of HTN, HLD, Afib (on Eliquis) , CAD s/p CABG, CHF, , COPD (3L), Restrictive Lung Disease (Asbestos Exposure) , DM, UC, BPH, Gout, and Mild Dementia who Complaint of 5 days of watery diarrhea, nonbloody, not related with any fevers or chills. Patient reports about 3-4 BMs per day without any nausea or vomiting. He reports eating some corn just prior to onset of symptoms and believes this may be the culprit. No other family members ate the same corn. She also complained of some left chest pain which started this morning and is intermittent unrelated to exertion. Denied any shortness of breath or orthopnea. No decrease in exercise tolerance was noted. Currently chest pain-free and asymptomatic ER course was notable for: (1 )ekg (2) cxr (3) Recent Travel: no PAST MEDICAL HISTORY: as in HPI PAST SURGICAL HISTORY: CABG Social History: Smoking:former smoker Alcohol: no Drugs: no Allergies No Known Allergies Allergy (Verified 11/04/18 20:08) PER PT AND FAMILY HOME MEDICATIONS: Home Medications Medication Instructions Recorded Sitagliptin Phosphate [Januvia -] 25 mg PO DAILY@0700 #90 tab 10/14/14 Spironolactone [Aldactone -] 25 mg PO DAILY #30 tablet 03/31/17 Aspirin 81 mg PO DAILY 04/10/17 Insulin Glargine,Hum.rec.anlog 60 unit SQ DAILY 04/10/17 [Lantus] Metoprolol Succinate [Toprol Xl] 50 mg PO BID 02/20/18 Apixaban [Eliquis -] 2.5 mg PO BID 03/30/18 Colchicine [Mitigare] 0.6 mg PO BID 04/10/18 Torsemide 100 mg PO BID 05/19/18 REVIEW OF SYSTEMS CONSTITUTIONAL: Absent: fever, chills, diaphoresis, , loss of appetite, weight change present-generalized weakness, malaise HEENT: Absent: rhinorrhea, nasal congestion, throat pain, throat swelling, difficulty swallowing, mouth swelling, ear pain, eye pain, visual changes CARDIOVASCULAR: Absent:, syncope, palpitations, irregular heart rate, lightheadedness, peripheral edema present chest pain RESPIRATORY: Absent: cough, shortness of breath, dyspnea with exertion, orthopnea, wheezing, stridor, hemoptysis GASTROINTESTINAL: Absent: abdominal pain, abdominal distension, nausea, vomiting,, constipation, melena, hematochezia present- diarrhea GENITOURINARY: Absent: dysuria, frequency, urgency, hesitancy, hematuria, flank pain, genital pain MUSCULOSKELETAL: Absent: myalgia, arthralgia, joint swelling, back pain, neck pain SKIN: Absent: rash, itching, pallor HEMATOLOGIC/IMMUNOLOGIC: Absent: easy bleeding, easy bruising, lymphadenopathy, frequent infections ENDOCRINE: Absent: unexplained weight gain, unexplained weight loss, heat intolerance, cold intolerance NEUROLOGIC: Absent: headache, focal weakness or paresthesias, dizziness, unsteady gait, seizure, mental status changes, bladder or bowel incontinence PSYCHIATRIC: Absent: anxiety, depression, suicidal or homicidal ideation, hallucinations. PHYSICAL EXAMINATION Vital Signs - 24 hr 01/20/19 01/20/19 01/20/19 15:31 15:33 16:00 Temperature 98.7 F 98.7 F Pulse Rate 68 Pulse Rate [ 73 Left Radial] Respiratory 18 22 H Rate Blood Pressure 120/63 Blood Pressure 120/63 [Left Arm] O2 Sat by Pulse 96 98 95 Oximetry (%) 01/20/19 01/20/19 18:02 20:21 Temperature 98.4 F Pulse Rate Pulse Rate [ 71 82 Left Radial] Respiratory 20 20 Rate Blood Pressure Blood Pressure 115/60 112/69 [Left Arm] O2 Sat by Pulse 100 95 Oximetry (%) GENERAL: Awake, alert, and fully oriented, in no acute distress, Obese HEAD: Normal with no signs of trauma. EYES: Pupils equal, round and reactive to light, extraocular movements intact, sclera anicteric, conjunctiva clear. No lid lag. EARS, NOSE, THROAT: Ears normal, nares patent, oropharynx clear without exudates. Moist mucous membranes. NECK: Normal range of motion, supple without lymphadenopathy, JVD, or masses. LUNGS: Breath sounds equal, clear to auscultation bilaterally. No wheezes, and no crackles. No accessory muscle use. Vertical chest scar HEART: Regular rate and rhythm, normal S1 and S2 without murmur, rub or gallop. ABDOMEN: Soft, nontender, not distended, normoactive bowel sounds, no guarding, no rebound, no masses. No hepatomegaly or splenomegaly. MUSCULOSKELETAL: Normal range of motion at all joints. No bony deformities or tenderness. No CVA tenderness. UPPER EXTREMITIES: 2+ pulses, warm, well-perfused. No cyanosis. No clubbing. No peripheral edema. LOWER EXTREMITIES: 2+ pulses, warm, well-perfused. No calf tenderness. No peripheral edema. NEUROLOGICAL: Cranial nerves II-XII intact. Normal speech. Normal gait. PSYCHIATRIC: Cooperative. Good eye contact. Appropriate mood and affect. SKIN: Warm, dry, normal turgor, no rashes or lesions noted, normal capillary refill. Laboratory Results - last 24 hr 01/20/19 01/20/19 01/20/19 16:30 16:30 16:30 WBC 6.9 RBC 4.86 Hgb 14.7 Hct 42.1 MCV 86.5 MCH 30.3 MCHC 35.0 RDW 19.5 H Plt Count 236 MPV 9.7 Absolute Neuts (auto) 3.6 Total Counted 100 Neutrophils % 51.7 D Neutrophils % (Manual) 53.0 Band Neutrophils % 2.0 Lymphocytes % 22.1 D Lymphocytes % (Manual) 23.0 D Monocytes % 24.9 H D Monocytes % (Manual) 22 H D Eosinophils % 0.2 Basophils % 1.1 Nucleated RBC % 0 Platelet Estimate Adequate Platelet Comment No clumping noted Anisocytosis 2+ Microcytosis 1+ PT with INR INR PTT (Actin FS) Anticoagulation Therapy Puncture Site ABG pH ABG pCO2 at Pt Temp ABG pO2 at Pt Temp ABG HCO3 ABG O2 Sat (Measured) ABG O2 Content ABG Base Excess Esteban Test Carboxyhemoglobin Methemoglobin O2 Delivery Device Oxygen Flow Rate Vent Mode Vent Rate Mechanical Rate Pressure Support Vent Sodium 130 L Potassium 3.8 Chloride 91 L Carbon Dioxide 27 Anion Gap 12 BUN 94.5 H Creatinine 3.0 H Est GFR (CKD-EPI)AfAm 20.69 Est GFR (CKD-EPI)NonAf 17.85 Random Glucose 126 H Lactic Acid Calcium 8.5 Total Bilirubin 0.9 AST 204 H ALT 200 H Alkaline Phosphatase 134 H Creatine Kinase 227 Creatine Kinase Index 0.8 CK-MB (CK-2) 2.0 Troponin I 0.02 B-Natriuretic Peptide 2949.4 H Total Protein 7.4 Albumin 3.8 01/20/19 01/20/19 01/20/19 16:30 16:33 18:39 WBC RBC Hgb Hct MCV MCH MCHC RDW Plt Count MPV Absolute Neuts (auto) Total Counted Neutrophils % Neutrophils % (Manual) Band Neutrophils % Lymphocytes % Lymphocytes % (Manual) Monocytes % Monocytes % (Manual) Eosinophils % Basophils % Nucleated RBC % Platelet Estimate Platelet Comment Anisocytosis Microcytosis PT with INR 15.50 H INR 1.31 H PTT (Actin FS) 37.0 H Anticoagulation Therapy No Result Required. Puncture Site Right radial ABG pH 7.44 ABG pCO2 at Pt Temp 32.9 L ABG pO2 at Pt Temp 110 H ABG HCO3 21.8 L ABG O2 Sat (Measured) 97.9 ABG O2 Content 19.6 ABG Base Excess -1.1 Esteban Test Positive Carboxyhemoglobin 1.1 Methemoglobin < 1.0 O2 Delivery Device N/c Oxygen Flow Rate 3l Vent Mode No Result Required. Vent Rate No Result Required. Mechanical Rate No Result Required. Pressure Support Vent No Result Required. Sodium Potassium Chloride Carbon Dioxide Anion Gap BUN Creatinine Est GFR (CKD-EPI)AfAm Est GFR (CKD-EPI)NonAf Random Glucose Lactic Acid 1.2 Calcium Total Bilirubin AST ALT Alkaline Phosphatase Creatine Kinase Creatine Kinase Index CK-MB (CK-2) Troponin I B-Natriuretic Peptide Total Protein Albumin Imaging reviewed CT of abdomen did not show any evidence of diverticulitis, free air, or colitis as per [facility] read. There was some pleural thickening which may be related to prior asbestos exposure. EKG reviewed appears to have A. fib without any acute ischemic changes. No RVR ASSESSMENT/PLAN: #Intermittent chest pain, Sounds to be atypical - high risk for acs given history of cad s/p cabg. Patient is now chest pain-free. Denies any shortness of breath. Admit to telemetry Trend troponins Nitroglycerin sublingual if chest pain echo Monitor on addiction specialist #Acute gastroenteritis. Diarrhea reported to be improving as per patient. Would observe off of antibiotics at this time and ensure adequate hydration and supplement electrolytes if needed. Do not suspect inflammatory diarrhea. Low suspicion for C. difficile as was not on antibiotics recently and does not have leukocytosis Gentle IV fluid hydration Imodium as needed if continued diarrhea Ordered stool for C. difficile, WBC, stool culture #KOFI Chronic Renal Failure-May be prerenal from dehydration from diarrhea Monitor I's and O's Daily weights Avoid nephrotoxins Trend renal function Renal sonogram Very gentle IV fluid hydration #COPD on home oxygenappears to be controlled no evidence of acute exacerbation. No respiratory distress. -Supplemental oxygen via nasal cannula maintain O2 sat over 95% Interstitial Lung Disease Pulmonary HTN #Atrial Fibrillation-Rate controlled Continue on Eliquis CAD s/p CABG JUAN DVT prophylaxisis already on Eliquis Visit type - Emergency Visit Emergency Visit: Yes ED Registration Date: 01/20/19 Care time: The patient presented to the Emergency Department on the above date and was hospitalized for further evaluation of their emergent condition. - New Patient This patient is new to me today: Yes Date on this admission: 01/20/19 - Critical Care Critical Care patient: No
[2019-01-20] MEDS ORDERED: HEPARIN NA (PORCINE) 5,000 UNITS/ML 1ML VIAL SQ SCH (22:00)
[2019-01-20] MEDS ORDERED: METHYL SALICYLATE/MENTHOL OINT 30 GM TUBE TP PRN (22:30)
[2019-01-20] MEDS: APIXABAN 2.5 MG TABLET PO SCH (22:54)
[2019-01-20] MEDS: COLCHICINE 0.6 MG CAP PO SCH (22:54)
[2019-01-20] MEDS ORDERED: LOPERAMIDE HCL 2 MG CAPSULE PO PRN (22:55)
[2019-01-21 04:37] LABS: URINE APPEARANCE CLEAR; URINE BILIRUBIN NEGATIVE (NEGATIVE); URINE COLOR YELLOW; URINE GLUCOSE (UA) NEGATIVE (NEGATIVE); URINE KETONE NEGATIVE (NEGATIVE); URINE LEUK ESTERASE NEGATIVE (NEGATIVE); URINE NITRITE NEGATIVE (NEGATIVE); URINE PROTEIN NEGATIVE (NEGATIVE); URINE UROBILINOGEN 0.2 mg/dL (0.2-1.0)
[2019-01-21] MEDS ORDERED: TORSEMIDE 100 MG TABLET PO SCH (06:00)
[2019-01-21 06:06] LABS: EOS % 0.4 % (0-4.5); HEMATOCRIT 39.8 % (35.4-49); HEMOGLOBIN 14.1 GM/dL (11.7-16.9); LYMPH % 24.7 % (8-40); MCH 30.7 pg (25.7-33.7); MCHC 35.4 g/dl (32.0-35.9); MEAN CELL VOLUME 86.6 fl (80-96); MEAN PLT VOLUME 9.2 fl (7.5-11.1); MONO % 31.5 % (3.8-10.2); NEUT % 42.4 % (42.8-82.8); PLATELET COUNT 205 K/MM3 (134-434); RDW 19.5 % (11.9-15.9); WHITE BLOOD COUNT 5.8 K/mm3 (4.0-10.0)
[2019-01-21] MEDS: INSULIN SLIDING SCALE (NOVOLOG) 1 VIAL SQ SCH ×4 (06:19→22:16)
[2019-01-21 07:10] LABS: ALBUMIN 3.4 g/dl (3.4-5.0); BILIRUBIN,TOTAL 0.6 mg/dL (0.2-1); BLOOD UREA NITROGEN 91.8 mg/dL (7-18); CALCIUM 8.2 mg/dL (8.5-10.1); CREATININE 2.7 mg/dL (0.55-1.3); POTASSIUM 3.7 mmol/L (3.5-5.1); TOT PROT 6.4 g/dl (6.4-8.2)
[2019-01-21] MEDS ORDERED: NITROGLYCERIN SUBLINGUAL 1/150 0.4 MG TAB ONE (08:19)
[2019-01-21] MEDS ORDERED: NITROGLYCERIN SUBLINGUAL 1/150 0.4 MG TAB SL PRN (08:21)
[2019-01-21] MEDS ORDERED: IBUPROFEN 400 MG TABLET (FP) PO PRN (08:41)
--- NOTE | 2019-01-21 08:44 | PN ---
Physical Exam: SUBJECTIVE: Patient seen and examined Pt has no more diarrhea but c/o mild chest pains of 5/10 and no associated phenomenon and he has mild headache,pain is better with s/l nitrogycerin and he is better and he is given motrin for headache, he had 2 sets of troppinin are negative and today his ekg is no change from yesterday. called cardiac consult . He is also c/o pain and weakness in his rt arm no redness and no fever or chills OBJECTIVE: Vital Signs Period Temp Pulse Resp BP Sys/Junior Pulse Ox Last 24 Hr 97.5 F-98.7 F 65-82 18-22 101-120/60-76 95-100 GENERAL: The patient is awake, alert, and fully oriented, in no acute distress. HEAD: Normal with no signs of trauma. EYES: PERRL, extraocular movements intact, sclera anicteric, conjunctiva clear. No ptosis. ENT: Ears normal, nares patent, oropharynx clear without exudates, moist mucous membranes. NECK: Trachea midline, full range of motion, supple. LUNGS: Breath sounds equal, clear to auscultation bilaterally, no wheezes, no crackles, no accessory muscle use. HEART: Regular rate and rhythm, S1, S2 without murmur, rub or gallop. ABDOMEN: Soft, nontender, nondistended, normoactive bowel sounds, no guarding, no rebound, no hepatosplenomegaly, no masses. EXTREMITIES: 2+ pulses, warm, well-perfused, no edema. NEUROLOGICAL: Cranial nerves II through XII grossly intact. Normal speech, gait not observed. Laboratory Results - last 24 hr 01/20/19 01/20/19 01/20/19 16:30 16:30 16:30 WBC 6.9 RBC 4.86 Hgb 14.7 Hct 42.1 MCV 86.5 MCH 30.3 MCHC 35.0 RDW 19.5 H Plt Count 236 MPV 9.7 Absolute Neuts (auto) 3.6 Total Counted 100 Neutrophils % 51.7 D Neutrophils % (Manual) 53.0 Band Neutrophils % 2.0 Lymphocytes % 22.1 D Lymphocytes % (Manual) 23.0 D Monocytes % 24.9 H D Monocytes % (Manual) 22 H D Eosinophils % 0.2 Basophils % 1.1 Nucleated RBC % 0 Platelet Estimate Adequate Platelet Comment No clumping noted Anisocytosis 2+ Microcytosis 1+ PT with INR INR PTT (Actin FS) Anticoagulation Therapy Puncture Site ABG pH ABG pCO2 at Pt Temp ABG pO2 at Pt Temp ABG HCO3 ABG O2 Sat (Measured) ABG O2 Content ABG Base Excess Esteban Test Carboxyhemoglobin Methemoglobin O2 Delivery Device Oxygen Flow Rate Vent Mode Vent Rate Mechanical Rate Pressure Support Vent Sodium 130 L Potassium 3.8 Chloride 91 L Carbon Dioxide 27 Anion Gap 12 BUN 94.5 H Creatinine 3.0 H Est GFR (CKD-EPI)AfAm 20.69 Est GFR (CKD-EPI)NonAf 17.85 POC Glucometer Random Glucose 126 H Lactic Acid Calcium 8.5 Total Bilirubin 0.9 AST 204 H ALT 200 H Alkaline Phosphatase 134 H Creatine Kinase 227 Creatine Kinase Index 0.8 CK-MB (CK-2) 2.0 Troponin I 0.02 B-Natriuretic Peptide 2949.4 H Total Protein 7.4 Albumin 3.8 Urine Color Urine Appearance Urine pH Ur Specific [place] Urine Protein Urine Glucose (UA) Urine Ketones Urine Blood Urine Nitrite Urine Bilirubin Urine Urobilinogen Ur Leukocyte Esterase 01/20/19 01/20/19 01/20/19 16:30 16:33 18:39 WBC RBC Hgb Hct MCV MCH MCHC RDW Plt Count MPV Absolute Neuts (auto) Total Counted Neutrophils % Neutrophils % (Manual) Band Neutrophils % Lymphocytes % Lymphocytes % (Manual) Monocytes % Monocytes % (Manual) Eosinophils % Basophils % Nucleated RBC % Platelet Estimate Platelet Comment Anisocytosis Microcytosis PT with INR 15.50 H INR 1.31 H PTT (Actin FS) 37.0 H Anticoagulation Therapy No Result Required. Puncture Site Right radial ABG pH 7.44 ABG pCO2 at Pt Temp 32.9 L ABG pO2 at Pt Temp 110 H ABG HCO3 21.8 L ABG O2 Sat (Measured) 97.9 ABG O2 Content 19.6 ABG Base Excess -1.1 Esteban Test Positive Carboxyhemoglobin 1.1 Methemoglobin < 1.0 O2 Delivery Device N/c Oxygen Flow Rate 3l Vent Mode No Result Required. Vent Rate No Result Required. Mechanical Rate No Result Required. Pressure Support Vent No Result Required. Sodium Potassium Chloride Carbon Dioxide Anion Gap BUN Creatinine Est GFR (CKD-EPI)AfAm Est GFR (CKD-EPI)NonAf POC Glucometer Random Glucose Lactic Acid 1.2 Calcium Total Bilirubin AST ALT Alkaline Phosphatase Creatine Kinase Creatine Kinase Index CK-MB (CK-2) Troponin I B-Natriuretic Peptide Total Protein Albumin Urine Color Urine Appearance Urine pH Ur Specific [place] Urine Protein Urine Glucose (UA) Urine Ketones Urine Blood Urine Nitrite Urine Bilirubin Urine Urobilinogen Ur Leukocyte Esterase 01/21/19 01/21/19 01/21/19 00:00 04:00 05:21 WBC RBC Hgb Hct MCV MCH MCHC RDW Plt Count MPV Absolute Neuts (auto) Total Counted Neutrophils % Neutrophils % (Manual) Band Neutrophils % Lymphocytes % Lymphocytes % (Manual) Monocytes % Monocytes % (Manual) Eosinophils % Basophils % Nucleated RBC % Platelet Estimate Platelet Comment Anisocytosis Microcytosis PT with INR INR PTT (Actin FS) Anticoagulation Therapy Puncture Site ABG pH ABG pCO2 at Pt Temp ABG pO2 at Pt Temp ABG HCO3 ABG O2 Sat (Measured) ABG O2 Content ABG Base Excess Esteban Test Carboxyhemoglobin Methemoglobin O2 Delivery Device Oxygen Flow Rate Vent Mode Vent Rate Mechanical Rate Pressure Support Vent Sodium Potassium Chloride Carbon Dioxide Anion Gap BUN Creatinine Est GFR (CKD-EPI)AfAm Est GFR (CKD-EPI)NonAf POC Glucometer 120 Random Glucose Lactic Acid Calcium Total Bilirubin AST ALT Alkaline Phosphatase Creatine Kinase Creatine Kinase Index CK-MB (CK-2) Troponin I 0.03 B-Natriuretic Peptide Total Protein Albumin Urine Color Yellow Urine Appearance Clear Urine pH 5.0 D Ur Specific [place] 1.011 Urine Protein Negative Urine Glucose (UA) Negative Urine Ketones Negative Urine Blood Negative Urine Nitrite Negative Urine Bilirubin Negative Urine Urobilinogen 0.2 Ur Leukocyte Esterase Negative 01/21/19 01/21/19 05:22 05:52 WBC 5.8 RBC 4.60 Hgb 14.1 Hct 39.8 MCV 86.6 MCH 30.7 MCHC 35.4 RDW 19.5 H Plt Count 205 MPV 9.2 Absolute Neuts (auto) 2.5 Total Counted Neutrophils % 42.4 L Neutrophils % (Manual) Band Neutrophils % Lymphocytes % 24.7 Lymphocytes % (Manual) Monocytes % 31.5 H Monocytes % (Manual) Eosinophils % 0.4 D Basophils % 1.0 Nucleated RBC % 0 Platelet Estimate Platelet Comment Anisocytosis Microcytosis PT with INR INR PTT (Actin FS) Anticoagulation Therapy Puncture Site ABG pH ABG pCO2 at Pt Temp ABG pO2 at Pt Temp ABG HCO3 ABG O2 Sat (Measured) ABG O2 Content ABG Base Excess Esteban Test Carboxyhemoglobin Methemoglobin O2 Delivery Device Oxygen Flow Rate Vent Mode Vent Rate Mechanical Rate Pressure Support Vent Sodium 132 L Potassium 3.7 Chloride 97 L Carbon Dioxide 24 Anion Gap 10 BUN 91.8 H Creatinine 2.7 H Est GFR (CKD-EPI)AfAm 23.50 Est GFR (CKD-EPI)NonAf 20.28 POC Glucometer Random Glucose 124 H Lactic Acid Calcium 8.2 L Total Bilirubin 0.6 AST 163 H ALT 177 H Alkaline Phosphatase 123 H Creatine Kinase 242 Creatine Kinase Index 1.0 CK-MB (CK-2) 2.5 Troponin I 0.03 B-Natriuretic Peptide Total Protein 6.4 Albumin 3.4 Urine Color Urine Appearance Urine pH Ur Specific [place] Urine Protein Urine Glucose (UA) Urine Ketones Urine Blood Urine Nitrite Urine Bilirubin Urine Urobilinogen Ur Leukocyte Esterase Active Medications Generic Name Dose Route Start Last Admin Trade Name Freq PRN Reason Stop Dose Admin Apixaban 2.5 mg 01/20/19 22:00 01/20/19 22:54 Eliquis - PO 2.5 mg BID [facility] Administration Aspirin 81 mg 01/21/19 10:00 Asa - PO DAILY [facility] Colchicine 0.6 mg 01/20/19 22:00 01/20/19 22:54 Colcrys PO 0.6 mg BID [facility] Administration Insulin Aspart 1 vial 01/21/19 07:00 01/21/19 06:19 Novolog Vial Sliding Scale - SQ Not Given [facility] Protocol Insulin Detemir 60 units 01/21/19 07:00 Levemir Vial SQ ACBK [facility] Loperamide HCl 4 mg 01/20/19 22:55 Imodium - PO Q6H PRN DIARRHEA Methyl Salicylate 1 applic 01/20/19 22:30 01/20/19 23:03 Suraj-Valdez - TP 1 applic BID PRN Administration itchiness Metoprolol Succinate 50 mg 01/20/19 22:00 01/20/19 22:54 Toprol Xl - PO 50 mg BID [facility] Administration Nitroglycerin 0.4 mg 01/21/19 08:21 01/21/19 08:20 Nitrostat - SL 0.4 mg Q5M PRN Administration FOR CHEST PAIN Pantoprazole Sodium 40 mg 01/21/19 10:00 Protonix - PO DAILY JOE Spironolactone 25 mg 01/21/19 10:00 Aldactone - PO DAILY JOE ASSESSMENT/PLAN: His diarrhea is better and will observe. Problem List - Problems (1) Chest pain Assessment/Plan: pt has 2 sets of troponin are negative and he is pain free now his ekg is unchanged from last , he has no more chest pains, cardiac consult ordered Code(s): R07.9 - CHEST PAIN, UNSPECIFIED (2) Headache Assessment/Plan: he has mild and he has associated left arm weakness but examintaion he has no weakness ordered ct head and neuro consult Code(s): R51 - HEADACHE (3) CHF, acute on chronic Assessment/Plan: He is stable on diuretics Code(s): I50.9 - HEART FAILURE, UNSPECIFIED (4) ASHD (arteriosclerotic heart disease) Assessment/Plan: dealing with chest pains and he is painfree now and awaiting cardiac consult and tropnins are negative 2 sets Code(s): I25.10 - ATHSCL HEART DISEASE OF [place] CORONARY ARTERY W/O ANG PCTRS (5) Asbestos pleurisy Code(s): J94.8 - OTHER SPECIFIED PLEURAL CONDITIONS (6) Atrial fibrillation Code(s): I48.91 - UNSPECIFIED ATRIAL FIBRILLATION (7) DM type 2 (diabetes mellitus, type 2) Assessment/Plan: restart on home meds and insulin coverage Code(s): E11.9 - TYPE 2 DIABETES MELLITUS WITHOUT COMPLICATIONS Qualifiers: Diabetes mellitus longterm insulin use: with marketing account manager use Chronic kidney disease stage: stage 4 (severe) (8) HTN (hypertension) Assessment/Plan: stable and advised to continue the meds Code(s): I10 - ESSENTIAL (PRIMARY) HYPERTENSION (9) Hyperlipidemia Assessment/Plan: stable on current meds Code(s): E78.5 - HYPERLIPIDEMIA, UNSPECIFIED Visit type - Emergency Visit Emergency Visit: Yes ED Registration Date: 01/20/19 Care time: The patient presented to the Emergency Department on the above date and was hospitalized for further evaluation of their emergent condition. - New Patient This patient is new to me today: Yes Date on this admission: 01/21/19 - Critical Care Critical Care patient: No - Discharge Referral Referred to [facility] Med [facility].C[facility] No
[2019-01-21 09:11] LABS: ANISOCYTOSIS 1+; PLATELET ESTIMATE ADEQUATE
[2019-01-21] MEDS ORDERED: [UNRECOGNIZED DRUG - OTHER] SQ SCH (10:00)
[2019-01-21] MEDS ORDERED: INSULIN GLARGINE HUM REC ANLOG 60 UNIT SQ SCH (10:00)
[2019-01-21] MEDS: INSULIN (LEVEMIR) 100 UNITS/ML UNITS SQ SCH (10:07)
[2019-01-21] MEDS: ASPIRIN 81 MG CHEWABLE TABLETS PO SCH (10:10)
[2019-01-21] MEDS: COLCHICINE 0.6 MG CAP PO SCH ×2 (10:10→22:15)
[2019-01-21] MEDS: SPIRONOLACTONE 25 MG TABLET (FP) PO SCH (10:10)
[2019-01-21] MEDS: PANTOPRAZOLE 40 MG TABLET (FP) PO SCH (10:10)
[2019-01-21] MEDS: APIXABAN 2.5 MG TABLET PO SCH ×2 (10:10→22:15)
--- NOTE | 2019-01-21 10:56 | EKG ---
Test Reason : Blood Pressure : / mmHG Vent. Rate : 070 BPM Atrial Rate : 070 BPM P-R Int : 000 ms QRS Dur : 124 ms QT Int : 464 ms P-R-T Axes : 000 -28 120 degrees QTc Int : 501 ms ATRIAL FIBRILLATION WITH PREMATURE VENTRICULAR OR ABERRANTLY CONDUCTED COMPLEXES NON-SPECIFIC INTRA-VENTRICULAR CONDUCTION DELAY NONSPECIFIC ST AND T WAVE ABNORMALITY ABNORMAL ECG WHEN COMPARED WITH ECG OF 20-JAN-2019 16:10, NO SIGNIFICANT CHANGE WAS FOUND Confirmed by ELIZABETH PHAM, JOESPH ([id number]) on 01/21/2019 10:55:50 AM Referred By: Juliet MENARD Confirmed By:JOESPH JOHNSON MD
--- NOTE | 2019-01-21 14:21 | CONSULT ---
Consult - text type - Consultation Consultation Note: NEUROLOGY CONSULTATION is greatly appreciated. Events reviewed and discussed with Dr. Mihir Borges. Patient examined. This 88 yo RH man lives with his who is currently hospitalized at [facility] after surgery for hip fracture. PMH sig for HTN, Chol, DM (x 3-4yrs), Gout, ASHD, S/P CABG and atrial fibrillation. Maintained on: Sitagliptin; Spironolactone; Aspirin 81; Insulin; Metoprolol 50 mg PO BID; Apixaban 2.5 mg PO BID; Colchicine; and Torsemide 100 mg PO BID. Patient describes episodic headaches throughout adulthood. Can occur daily in the past but recently few/ month. These are holocranial throbbing headaches with photophobia and rare nausea. Headaches the last few days after NTG for chest pains. Patient also c/o chronic pains in both legs (actually, this is all he really wants to discuss!). These had been present for > 10 years and clearly antedate the Dx of DM. These are burning, throbbing and shooting pains, not only ion the feet but more diffusely in both legs. They are predominately nocturnal and interupt sleep. These chronic noctural pains have been attributed to gout in the past. Since his was hospitalized the patient has experienced intermittant chest pain with intermittant numbness and tingling in right arm, diffusely. ARTHUR: Obese. No bruits. Cor ireg/irreg. No evidence of external head trauma or falls. Neg SLR. Neg Homans' Feet warm and well-perfused. NEURO: Ox 1918. Trump. Recalls 2018 and Jan at 2-3 mins. +Glabella, snout Speech fluent CN: II-XII: Normal Motor: No drift. Normal strength, bulk, tone. Normal reflexes except decreased KJ's and absent AJ's. Toes downgoing Coord: No FTN dystaxia Sensory: Decreased vibration almas the forefeet but normal at the ankles. IMP: Non-focal exam sig for Mild B/L cerebral dysfunction (OMS) and mild Diabetic Periphera neuropathy. 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 The recent Right arm paresthesiae likely represent a manifestation of the same. SUGGEST: CT of brain and cervical spine ([facility]). Check TSH, B12, Fe++, TIBC and Ferritin Continue Metoprolol for migraine prophylaxis (can increase dose if OK with cardiology) Continue NOAC vs AFib for stroke prophylaxis Add sequential compression devices and mobilize OOBed to chair and PT for gait DARIUSZ Try pramipexole .125 mg after breakfast and dinner x 2 days then 0.25 mg after meals. Social sevices for DIRECTOR OF CLINICAL TRIALS. Thank you very much, Odilon Friedman MD
[2019-01-21] MEDS: PRAMIPEXOLE DIHYDROCHLORIDE 0.125 MG TABLET PO SCH (22:16)
[2019-01-22] MEDS: PRAMIPEXOLE DIHYDROCHLORIDE 0.125 MG TABLET PO SCH (06:10)
[2019-01-22] MEDS: INSULIN SLIDING SCALE (NOVOLOG) 1 VIAL SQ SCH ×4 (06:11→21:00)
--- NOTE | 2019-01-22 08:18 | PN ---
Progress Note, Physician Chief Complaint: 88 y.o M with history of multiple admisions to [facility] due to chronic hypercarbic respiratory failure, JUAN, CHF was admitted with chest pain, diarrhea (patient was taking Linzess 290 for chronic constipation), intermittent headaches . History of Present Illness: Cronic hypercarbic respiratory failure. at night bipap 15/8 Persistent 6.7cm left basilar atelectasis/consolidation. CABG ASHD. DM type on Levemir/Januvia. CRI/ckd 4. 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 Previous Thoracentesis in the past-neg for malignancy. JUAN-at nights using CPAP. Chronic A.Fib. Combined CHF. Gout. Gouty arthritis. Previous rectal surgery for abscess, fistula at [facility]. - Current Medication List Current Medications: Active Medications Apixaban (Eliquis -) 2.5 mg PO BID [facility] Last Admin: 01/21/19 22:15 Dose: 2.5 mg Aspirin (Asa -) 81 mg PO DAILY [facility] Last Admin: 01/21/19 10:10 Dose: 81 mg Colchicine (Colcrys) 0.6 mg PO BID [facility] Last Admin: 01/21/19 22:15 Dose: 0.6 mg Insulin Aspart (Novolog Vial Sliding Scale -) 1 vial SQ [facility]; Protocol Last Admin: 01/22/19 06:11 Dose: Not Given Insulin Detemir (Levemir Vial) 40 units SQ ACBK [facility] Methyl Salicylate (Suraj-Valdez -) 1 applic TP BID PRN PRN Reason: itchiness Last Admin: 01/20/19 23:03 Dose: 1 applic Metoprolol Succinate (Toprol Xl -) 50 mg PO BID [facility] Last Admin: 01/21/19 22:15 Dose: 50 mg Nitroglycerin (Nitrostat -) 0.4 mg SL Q5M PRN PRN Reason: FOR CHEST PAIN Last Admin: 01/21/19 08:20 Dose: 0.4 mg Pantoprazole Sodium (Protonix -) 40 mg PO DAILY [facility] Last Admin: 01/21/19 10:10 Dose: 40 mg Spironolactone (Aldactone -) 25 mg PO DAILY [facility] Last Admin: 01/21/19 10:10 Dose: 25 mg - Objective Vital Signs: Vital Signs Temperature 97.5 F L 01/22/19 06:00 Pulse Rate 75 01/22/19 06:00 Respiratory Rate 20 01/22/19 06:00 Blood Pressure 110/57 L 01/22/19 06:00 O2 Sat by Pulse Oximetry (%) 97 01/22/19 00:05 Constitutional: Yes: Anxious, Mild Distress Eyes: Yes: Conjunctiva Clear, EOM Intact HENT: Yes: Atraumatic, Normocephalic. No: Drooling, Epistaxis Neck: Yes: Supple, Trachea Midline Cardiovascular: Yes: Pulse Irregular, S1, S2 Respiratory: Yes: Regular, CTA Bilaterally Gastrointestinal: Yes: Normal Bowel Sounds, Soft, Abdomen, Obese. No: Distention ...Rectal Exam: Yes: Deferred Genitourinary: No: Anuria, Bladder Distention, CVA Tenderness - Left, CVA Tenderness - Right Breast(s): Yes: WNL Musculoskeletal: Yes: WNL Extremities: No: Calf Tenderness, Cold Edema: No Peripheral Pulses WNL: No Integumentary: Yes: WNL Neurological: Yes: Alert, Oriented, Unsteady Gait, Weakness (LE). No: Aphasia ...Motor Strength: WNL Psychiatric: Yes: Alert, Oriented. No: Agitated, Suicidal Ideation Labs: CBC, BMP 01/21/19 05:22 01/21/19 05:52 INR, PTT INR 1.31 (0.83-1.09) H 01/20/19 16:30 Problem List - Problems (1) Headache Assessment/Plan: Dr Friedman consult appreciated. Would not continue Pramipexole due to possible sedation in this patient with hypercarbic respiratory failure. Tylenol for headache would be a reasonable approach. Problems reviewed: Yes Code(s): R51 - HEADACHE Qualifiers: Headache type: unspecified (2) Acute kidney injury superimposed on CKD Assessment/Plan: Worsened BUN/Cr due to diuretics and diarrhea. will follow BUN/Cr without IV additional fluids, Code(s): N17.9 - ACUTE KIDNEY FAILURE, UNSPECIFIED; N18.9 - CHRONIC KIDNEY DISEASE, UNSPECIFIED (3) Atrial fibrillation Assessment/Plan: Continue Eliquis PO. Code(s): I48.91 - UNSPECIFIED ATRIAL FIBRILLATION (4) Chest pain Assessment/Plan: Cardiology consult. No chest pain now continue telemetry Problems reviewed: Yes Code(s): R07.9 - CHEST PAIN, UNSPECIFIED Qualifiers: Ischemic chest pain type: unspecified angina pectoris type (5) Chronic respiratory failure with hypercapnia Code(s): J96.12 - CHRONIC RESPIRATORY FAILURE WITH HYPERCAPNIA (6) Chronic combined systolic and diastolic heart failure Problems reviewed: Yes Code(s): I50.42 - CHRONIC COMBINED SYSTOLIC AND DIASTOLIC HRT FAIL
[2019-01-22] MEDS: INSULIN (LEVEMIR) 100 UNITS/ML UNITS SQ SCH (08:56)
[2019-01-22] MEDS ORDERED: INSULIN (LEVEMIR) 100 UNITS/ML UNITS SQ SCH (09:00)
--- NOTE | 2019-01-22 09:43 | CON.CARD ---
Consult Consult Specialty:: cardio - History of Present Illness Chief Complaint: diarrhea History of Present Illness: 79 M here with diarrhea. reports 5 days of watery diarrhea, nonbloody, not related with any fevers or chills. Patient reports about 3-4 BMs per day also complained of chest pain. appeared prerenal on labs. torsemide held. 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 History of Recent Travel: No Home Medications - Allergies Allergies/Adverse Reactions: Allergies Allergy/AdvReac Type Severity Reaction Status Date / Time No Known Allergies Allergy Verified 11/04/18 20:08 - Home Medications Home Medications: Ambulatory Orders Sitagliptin Phosphate [Januvia -] 25 mg PO DAILY@0700 #90 tab 10/14/14 Spironolactone [Aldactone -] 25 mg PO DAILY #30 tablet 03/31/17 Aspirin 81 mg PO DAILY 04/10/17 Insulin Glargine,Hum.rec.anlog [Lantus] 40 unit SQ DAILY 04/10/17 Metoprolol Succinate [Toprol Xl] 50 mg PO BID 02/20/18 Apixaban [Eliquis -] 2.5 mg PO BID 03/30/18 Colchicine [Mitigare] 0.6 mg PO BID 04/10/18 Torsemide 100 mg PO BID 05/19/18 Acetaminophen [Tylenol] 650 mg PO Q4H PRN 01/21/19 Vital Signs: Vital Signs Temperature 97.5 F L 01/22/19 06:00 Pulse Rate 75 01/22/19 06:00 Respiratory Rate 20 01/22/19 06:00 Blood Pressure 110/57 L 01/22/19 06:00 O2 Sat by Pulse Oximetry (%) 97 01/22/19 00:05 - Other Data Labs, Other Data: CBC, BMP 01/21/19 05:22 01/21/19 05:52 INR, PTT INR 1.31 (0.83-1.09) H 01/20/19 16:30 Assessment/Plan Echo 04/2018: EF 45%, mod MR/TR, at least mild , moderate to severe PHTN Nuclear stress 2017: Pharm: small inferolat infarct, mild arlin-infarct ischemia , Overall EF 35-40% CXR: ECG 01/20: afib, no path q's, leftwad axis, NSTWAs--no signif change vs prior 01/21: no change tele: diarrhea: -per pmd chest pain: -trop neg x 3 -ecg non-ischemic -no ischemia 2017 MPI Chronic mixed sytolic/diastolic CHF, EF 45%: -declined cardiomems previously (sees tim) -prior home regimen: torsemide 100 bid, spironolactone 25, metopr. 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
[2019-01-22] MEDS: PANTOPRAZOLE 40 MG TABLET (FP) PO SCH (09:45)
[2019-01-22] MEDS: COLCHICINE 0.6 MG CAP PO SCH ×2 (09:45→21:00)
[2019-01-22] MEDS: SPIRONOLACTONE 25 MG TABLET (FP) PO SCH (09:46)
[2019-01-22] MEDS: ASPIRIN 81 MG CHEWABLE TABLETS PO SCH (09:46)
[2019-01-22] MEDS: APIXABAN 2.5 MG TABLET PO SCH ×2 (09:46→21:00)
--- NOTE | 2019-01-22 10:24 | EKG ---
Test Reason : Blood Pressure : / mmHG Vent. Rate : 070 BPM Atrial Rate : 083 BPM P-R Int : 000 ms QRS Dur : 122 ms QT Int : 448 ms P-R-T Axes : 000 -33 108 degrees QTc Int : 483 ms ATRIAL FIBRILLATION WITH PREMATURE VENTRICULAR OR ABERRANTLY CONDUCTED COMPLEXES LEFT AXIS DEVIATION NON-SPECIFIC INTRA-VENTRICULAR CONDUCTION DELAY NONSPECIFIC ST AND T WAVE ABNORMALITY ABNORMAL ECG WHEN COMPARED WITH ECG OF 04-NOV-2018 19:41, NO SIGNIFICANT CHANGE WAS FOUND Confirmed by JOESPH JOHNSON MD ([id number]) on 01/22/2019 10:23:35 AM Referred By: Confirmed By:JOESPH JOHNSON MD
[2019-01-22] MEDS: ACETAMINOPHEN 325 MG TABLET (FP) PO PRN ×2 (13:56→21:00)
--- NOTE | 2019-01-22 15:39 | PN ---
Progress Note (short form) - Note Progress Note: Consult Specialty:: cardio History of Present Illness Chief Complaint: diarrhea History of Present Illness: 88 M h/o afib, HTN, HLD, CAD s/p CABG p/w diarrhea for the last few days. Initially complained of chest pain, unable to describe. palps, dizziness. Also with KOFI, torsemide held here. Currently no chest pain, stable dyspnea on home O2, no dizziness, lightheadedness, palps. PMH: HTN, HLD, Afib (on Eliquis), CAD s/p CABG, CHF, , COPD (3L), Restrictive Lung Disease (Asbestos Exposure), DM, UC, BPH, Gout - Past Medical History WELT WHEELER: Yes: Dementia (mild), Other (Mild cognitive impairment) Cardio/Vascular: Yes: AFIB, Aortic Stenosis, CAD, HTN, Hyperlipdemia Pulmonary: Yes: COPD, O2 Dependent, Sleep Apnea, Other (Extensive pleural disease. 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 History of Recent Travel: No Home Medications - Allergies Allergies/Adverse Reactions: Allergies Allergy/AdvReac Type Severity Reaction Status Date / Time No Known Allergies Allergy Verified 11/04/18 20:08 Ambulatory Orders Sitagliptin Phosphate [Januvia -] 25 mg PO DAILY@0700 #90 tab 10/14/14 Spironolactone [Aldactone -] 25 mg PO DAILY #30 tablet 03/31/17 Aspirin 81 mg PO DAILY 04/10/17 Insulin Glargine,Hum.rec.anlog [Lantus] 40 unit SQ DAILY 04/10/17 Metoprolol Succinate [Toprol Xl] 50 mg PO BID 02/20/18 Apixaban [Eliquis -] 2.5 mg PO BID 03/30/18 Colchicine [Mitigare] 0.6 mg PO BID 04/10/18 Torsemide 100 mg PO BID 05/19/18 Acetaminophen [Tylenol] 650 mg PO Q4H PRN 01/21/19 Vital Signs Period Temp Pulse Resp BP Sys/Junior Pulse Ox Last 24 Hr 97.4 F-98.3 F 71-76 18-20 103-121/57-74 97-97 Laboratory Last Values WBC 5.8 K/mm3 (4.0-10.0) 01/21/19 05:22 RBC 4.60 M/mm3 (4.00-5.60) 01/21/19 05:22 Hgb 14.1 GM/dL (11.7-16.9) 01/21/19 05:22 Hct 39.8 % (35.4-49) 01/21/19 05:22 MCV 86.6 fl (80-96) 01/21/19 05:22 MCH 30.7 pg (25.7-33.7) 01/21/19 05:22 MCHC 35.4 g/dl (32.0-35.9) 01/21/19 05:22 RDW 19.5 % (11.9-15.9) H 01/21/19 05:22 Plt Count 205 K/MM3 (134-434) 01/21/19 05:22 MPV 9.2 fl (7.5-11.1) 01/21/19 05:22 Absolute Neuts (auto) 2.5 K/mm3 (1.5-8.0) 01/21/19 05:22 Total Counted 100 01/20/19 16:30 Neutrophils % 42.4 % (42.8-82.8) L 01/21/19 05:22 Neutrophils % (Manual) 43.0 % (42.8-82.8) 01/21/19 05:22 Band Neutrophils % 3.0 % 01/21/19 05:22 Lymphocytes % 24.7 % (8-40) 01/21/19 05:22 Lymphocytes % (Manual) 30.0 % (8-40) D 01/21/19 05:22 Monocytes % 31.5 % (3.8-10.2) H 01/21/19 05:22 Monocytes % (Manual) 21 % (3.8-10.2) H 01/21/19 05:22 Eosinophils % 0.4 % (0-4.5) D 01/21/19 05:22 Eosinophils % (Manual) 0.0 % (0-4.5) D 01/21/19 05:22 Basophils % 1.0 % (0-2.0) 01/21/19 05:22 Basophils % (Manual) 0.0 % (0-2.0) 01/21/19 05:22 Nucleated RBC % 0 % (0-0) 01/21/19 05:22 Platelet Estimate Adequate 01/21/19 05:22 Platelet Comment No clumping noted 01/20/19 16:30 Anisocytosis 1+ 01/21/19 05:22 Microcytosis 1+ 01/20/19 16:30 PT with INR 15.50 SEC (9.7-13.0) H 01/20/19 16:30 INR 1.31 (0.83-1.09) H 01/20/19 16:30 PTT (Actin FS) 37.0 SECONDS (25.2-36.5) H 01/20/19 16:30 Anticoagulation Therapy No Result Required. 01/20/19 18:39 Puncture Site Right radial 01/20/19 18:39 ABG pH 7.44 (7.35-7.45) 01/20/19 18:39 ABG pCO2 at Pt Temp 32.9 mmHg (35-45) L 01/20/19 18:39 ABG pO2 at Pt Temp 110 mmHg (80-100) H 01/20/19 18:39 ABG HCO3 21.8 mmol/L (22-27) L 01/20/19 18:39 ABG O2 Sat (Measured) 97.9 % (95-98) 01/20/19 18:39 ABG O2 Content 19.6 % vol 01/20/19 18:39 ABG Base Excess -1.1 meq/l (-2-2) 01/20/19 18:39 Esteban Test Positive 01/20/19 18:39 Carboxyhemoglobin 1.1 % (0-2) 01/20/19 18:39 Methemoglobin < 1.0 % (0-2) 01/20/19 18:39 O2 Delivery Device N/c 01/20/19 18:39 Oxygen Flow Rate 3l 01/20/19 18:39 Vent Mode No Result Required. 01/20/19 18:39 Vent Rate No Result Required. 01/20/19 18:39 Mechanical Rate No Result Required. 01/20/19 18:39 Pressure Support Vent No Result Required. 01/20/19 18:39 Sodium 132 mmol/L (136-145) L 01/21/19 05:52 Potassium 3.7 mmol/L (3.5-5.1) 01/21/19 05:52 Chloride 97 mmol/L (98-107) L 01/21/19 05:52 Carbon Dioxide 24 mmol/L (21-32) 01/21/19 05:52 Anion Gap 10 MMOL/L (8-16) 01/21/19 05:52 BUN 91.8 mg/dL (7-18) H 01/21/19 05:52 Creatinine 2.7 mg/dL (0.55-1.3) H 01/21/19 05:52 Est GFR (CKD-EPI)AfAm 23.50 01/21/19 05:52 Est GFR (CKD-EPI)NonAf 20.28 01/21/19 05:52 POC Glucometer 99 UNITS (80-120) 01/22/19 09:50 Random Glucose 124 mg/dL (74-106) H 01/21/19 05:52 Lactic Acid 1.2 mmol/L (0.4-2.0) 01/20/19 16:33 Calcium 8.2 mg/dL (8.5-10.1) L 01/21/19 05:52 Total Bilirubin 0.6 mg/dL (0.2-1) 01/21/19 05:52 AST 163 U/L (15-37) H 01/21/19 05:52 ALT 177 U/L (13-61) H 01/21/19 05:52 Alkaline Phosphatase 123 U/L (45-117) H 01/21/19 05:52 Creatine Kinase 242 U/L (26-308) 01/21/19 05:52 Creatine Kinase Index 1.0 % (0.0-5.0) 01/21/19 05:52 CK-MB (CK-2) 2.5 ng/mL (0.5-3.6) 01/21/19 05:52 Troponin I 0.03 ng/ml (0.00-0.05) 01/21/19 05:52 B-Natriuretic Peptide 2949.4 pg/ml (5-450) H 01/20/19 16:30 Total Protein 6.4 g/dl (6.4-8.2) 01/21/19 05:52 Albumin 3.4 g/dl (3.4-5.0) 01/21/19 05:52 Urine Color Yellow 01/21/19 04:00 Urine Appearance Clear 01/21/19 04:00 Urine pH 5.0 (5.0-8.0) D 01/21/19 04:00 Ur Specific Lawrence 1.011 (1.010-1.035) 01/21/19 04:00 Urine Protein Negative (NEGATIVE) 01/21/19 04:00 Urine Glucose (UA) Negative (NEGATIVE) 01/21/19 04:00 Urine Ketones Negative (NEGATIVE) 01/21/19 04:00 Urine Blood Negative (NEGATIVE) 01/21/19 04:00 Urine Nitrite Negative (NEGATIVE) 01/21/19 04:00 Urine Bilirubin Negative (NEGATIVE) 01/21/19 04:00 Urine Urobilinogen 0.2 mg/dL (0.2-1.0) 01/21/19 04:00 Ur Leukocyte Esterase Negative (NEGATIVE) 01/21/19 04:00 Assessment/Plan Echo 04/2018: EF 45%, mod MR/TR, at least mild , moderate to severe PHTN Nuclear stress 2017: Pharm: small inferolat infarct, mild arlin-infarct ischemia , Overall EF 35-40% CXR: no congestion ECG afib, no path q's, leftwad axis, NSTWAs--no signif change vs prior tele: afib, rate controlled, PVCs diarrhea -manage per primary chest pain: -trop neg x 3, no ischemic changes on EKG - unlikely ACS -no ischemia 2017 MPI - now resolved Chronic mixed sytolic/diastolic CHF, EF 45%: -declined cardiomems previously (sees francescone) -prior home regimen: torsemide 100 bid, spironolactone 25, metopr. 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
--- NOTE | 2019-01-22 18:58 | PN ---
Progress Note (short form) - Note Progress Note: NEUROLOGY PROGRESS: Events reviewed. Pt. examined. Discussed with RN. Pt without diarrhea or GI complaints. He continues to c/o diffuse throbbing, aching pains in both legs and the right arm. Haider received pramipxole secondary to "sedation." CK normal x 2 Exam unchanged. Mild-mod OMS. Non-focal. IMP: Mild OMS H/O Migraine headaches. Severe RLS. R/O myalgia, r/o PMR SUGGEST: Check B12, TSH, RPR, ESR, CRP, Fe++. TIBC, Ferritin Pramipexole is not sedating or a respiratory suppressant and a trial at low doses, while here in the hospital, might prove illustrious. Thank you very much, Odilon Friedman MD
[2019-01-23] MEDS: INSULIN SLIDING SCALE (NOVOLOG) 1 VIAL SQ SCH ×4 (06:08→21:42)
[2019-01-23 06:28] LABS: BASO % 0.9 % (0-2.0); EOS % 0.1 % (0-4.5); HEMOGLOBIN 14.1 GM/dL (11.7-16.9); LYMPH % 25.3 % (8-40); MCH 29.2 pg (25.7-33.7); MCHC 33.5 g/dl (32.0-35.9); MEAN CELL VOLUME 87.3 fl (80-96); MEAN PLT VOLUME 9.2 fl (7.5-11.1); MONO % 33.1 % (3.8-10.2); NEUT % 40.6 % (42.8-82.8); PLATELET COUNT 199 K/MM3 (134-434); RBC 4.81 M/mm3 (4.00-5.60); RDW 19.3 % (11.9-15.9); WHITE BLOOD COUNT 4.9 K/mm3 (4.0-10.0)
[2019-01-23] MEDS: INSULIN (LEVEMIR) 100 UNITS/ML UNITS SQ SCH ×2 (06:47→09:59)
[2019-01-23 07:23] LABS: ALBUMIN 3.5 g/dl (3.4-5.0); BILIRUBIN,TOTAL 0.8 mg/dL (0.2-1); BLOOD UREA NITROGEN 71.6 mg/dL (7-18); CALCIUM 8.8 mg/dL (8.5-10.1); POTASSIUM 4.1 mmol/L (3.5-5.1); TOT PROT 6.7 g/dl (6.4-8.2)
[2019-01-23 08:01] LABS: ERYTHROCYTE SEDIMENTATION RATE 18 mm/hr (0-20)
[2019-01-23] MEDS: COLCHICINE 0.6 MG CAP PO SCH ×2 (09:19→21:42)
[2019-01-23] MEDS: ASPIRIN 81 MG CHEWABLE TABLETS PO SCH (09:19)
[2019-01-23] MEDS: ACETAMINOPHEN 325 MG TABLET (FP) PO PRN (09:20)
[2019-01-23] MEDS: APIXABAN 2.5 MG TABLET PO SCH ×2 (09:20→21:43)
[2019-01-23] MEDS: SPIRONOLACTONE 25 MG TABLET (FP) PO SCH (09:20)
[2019-01-23] MEDS: PANTOPRAZOLE 40 MG TABLET (FP) PO SCH (09:20)
--- NOTE | 2019-01-23 10:46 | PN ---
Progress Note (short form) - Note Progress Note: s: no chest pain palps dizziness dyspnea Current Medications Acetaminophen (Tylenol -) 650 mg PO Q6H PRN PRN Reason: PAIN =/> 5 Last Admin: 01/23/19 09:20 Dose: 650 mg Apixaban (Eliquis -) 2.5 mg PO BID [facility] Last Admin: 01/23/19 09:20 Dose: 2.5 mg Aspirin (Asa -) 81 mg PO DAILY [facility] Last Admin: 01/23/19 09:19 Dose: 81 mg Colchicine (Colcrys) 0.6 mg PO BID [facility] Last Admin: 01/23/19 09:19 Dose: 0.6 mg Insulin Aspart (Novolog Vial Sliding Scale -) 1 vial SQ ACHS [facility]; Protocol Last Admin: 01/23/19 06:08 Dose: Not Given Insulin Detemir (Levemir Vial) 30 units SQ ACBK [facility] Last Admin: 01/23/19 09:59 Dose: Not Given Methyl Salicylate (Suraj-Valdez -) 1 applic TP BID PRN PRN Reason: itchiness Last Admin: 01/20/19 23:03 Dose: 1 applic Metoprolol Succinate (Toprol Xl -) 50 mg PO BID [facility] Last Admin: 01/23/19 09:20 Dose: 50 mg Nitroglycerin (Nitrostat -) 0.4 mg SL Q5M PRN PRN Reason: FOR CHEST PAIN Last Admin: 01/21/19 08:20 Dose: 0.4 mg Pantoprazole Sodium (Protonix -) 40 mg PO DAILY [facility] Last Admin: 01/23/19 09:20 Dose: 40 mg Spironolactone (Aldactone -) 25 mg PO DAILY [facility] Last Admin: 01/23/19 09:20 Dose: 25 mg Vital Signs Period Temp Pulse Resp BP Sys/Junior Pulse Ox Last 24 Hr 97.3 F-98.0 F 67-88 18-20 87-120/55-73 98-99 nad CTAB nl s1, s2, no m/r/g, no JVD no edema, wwp soft, nt, nd, +bs aox3 no jaundice, diaphoresis not agitated Assessment/Plan Echo 04/2018: EF 45%, mod MR/TR, at least mild , moderate to severe PHTN Nuclear stress 2017: Pharm: small inferolat infarct, mild arlin-infarct ischemia , Overall EF 35-40% CXR: no congestion ECG afib, no path q's, leftwad axis, NSTWAs--no signif change vs prior tele: afib, rate controlled, PVCs diarrhea -manage per primary chest pain: -trop neg x 3, no ischemic changes on EKG - unlikely ACS -no ischemia 2017 MPI - now resolved Chronic mixed sytolic/diastolic CHF, EF 45%: -declined cardiomems previously (sees francescone) -prior home regimen: torsemide 100 bid, spironolactone 25, metopr. 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
[2019-01-23 11:18] LABS: ANISOCYTOSIS 1+; MACROCYTOSIS 0; PLATELET ESTIMATE NORMAL
--- NOTE | 2019-01-23 12:43 | PN ---
Problem List - Problems (1) Headache Code(s): R51 - HEADACHE Qualifiers: Headache type: unspecified (2) Acute kidney injury superimposed on CKD Code(s): N17.9 - ACUTE KIDNEY FAILURE, UNSPECIFIED; N18.9 - CHRONIC KIDNEY DISEASE, UNSPECIFIED (3) Acute on chronic diastolic CHF (congestive heart failure) Code(s): I50.33 - ACUTE ON CHRONIC DIASTOLIC (CONGESTIVE) HEART FAILURE (4) Acute respiratory failure with hypercapnia Code(s): J96.02 - ACUTE RESPIRATORY FAILURE WITH HYPERCAPNIA (5) Atrial fibrillation Code(s): I48.91 - UNSPECIFIED ATRIAL FIBRILLATION (6) Chest pain Code(s): R07.9 - CHEST PAIN, UNSPECIFIED Qualifiers: Ischemic chest pain type: unspecified angina pectoris type
--- NOTE | 2019-01-23 12:53 | PN ---
Progress Note, Physician Chief Complaint: Less SOB, no N/V/, diarrhea slowly improving. History of Present Illness: Cronic hypercarbic respiratory failure. at night bipap 15/8 Persistent 6.7cm left basilar atelectasis/consolidation. CABG ASHD. DM type on Levemir/Januvia. CRI/ckd 4. 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 Previous Thoracentesis in the past-neg for malignancy. JUAN-at nights using CPAP. Chronic A.Fib. Combined CHF. Gout. Gouty arthritis. Previous rectal surgery for abscess, fistula at [facility]. - Current Medication List Current Medications: Active Medications Acetaminophen (Tylenol -) 650 mg PO Q6H PRN PRN Reason: PAIN =/> 5 Last Admin: 01/23/19 09:20 Dose: 650 mg Amoxicillin (Amoxicillin -) 750 mg PO BID [facility] Stop: 01/28/19 23:59 Apixaban (Eliquis -) 2.5 mg PO BID [facility] Last Admin: 01/23/19 09:20 Dose: 2.5 mg Aspirin (Asa -) 81 mg PO DAILY [facility] Last Admin: 01/23/19 09:19 Dose: 81 mg Colchicine (Colcrys) 0.6 mg PO BID [facility] Last Admin: 01/23/19 09:19 Dose: 0.6 mg Insulin Aspart (Novolog Vial Sliding Scale -) 1 vial SQ [facility]; Protocol Last Admin: 01/23/19 11:16 Dose: Not Given Insulin Detemir (Levemir Vial) 30 units SQ ACBK [facility] Last Admin: 01/23/19 09:59 Dose: Not Given Methyl Salicylate (Suraj-Valdez -) 1 applic TP BID PRN PRN Reason: itchiness Last Admin: 01/20/19 23:03 Dose: 1 applic Metoprolol Succinate (Toprol Xl -) 50 mg PO BID [facility] Last Admin: 01/23/19 09:20 Dose: 50 mg Nitroglycerin (Nitrostat -) 0.4 mg SL Q5M PRN PRN Reason: FOR CHEST PAIN Last Admin: 01/21/19 08:20 Dose: 0.4 mg Pantoprazole Sodium (Protonix -) 40 mg PO DAILY [facility] Last Admin: 01/23/19 09:20 Dose: 40 mg Spironolactone (Aldactone -) 25 mg PO DAILY [facility] Last Admin: 01/23/19 09:20 Dose: 25 mg - Objective Vital Signs: Vital Signs Temperature 97.7 F 01/23/19 10:00 Pulse Rate 77 01/23/19 10:00 Respiratory Rate 18 01/23/19 10:00 Blood Pressure 120/55 L 01/23/19 10:00 O2 Sat by Pulse Oximetry (%) 99 01/23/19 09:00 Constitutional: Yes: Anxious, Mild Distress Eyes: Yes: Conjunctiva Clear, EOM Intact HENT: Yes: Atraumatic, Normocephalic Neck: Yes: Supple, Trachea Midline Cardiovascular: Yes: Pulse Irregular, S1, S2 Respiratory: Yes: Cough, Diminished, On Nasal O2, Poor Air Entry, SOB. No: Rales, Rhonchi, Stridor, Tachypnea, Wheezes Gastrointestinal: Yes: Normal Bowel Sounds, Soft, Abdomen, Obese. No: Ascites ...Rectal Exam: Yes: Deferred Genitourinary: No: Anuria, Bladder Distention, CVA Tenderness - Left, CVA Tenderness - Right Breast(s): Yes: WNL Musculoskeletal: No: Back Pain, Joint Stiffness Extremities: No: Amputation, Calf Tenderness, Cold, Cyanosis Edema: No Peripheral Pulses WNL: No Integumentary: Yes: WNL Neurological: Yes: Alert, Oriented, Unsteady Gait, Weakness. No: Aphasia, Asterixis, Ataxia, Seizure, Unresponsive ...Motor Strength: WNL Psychiatric: Yes: WNL Labs: CBC, BMP 01/23/19 05:30 01/23/19 05:20 INR, PTT INR 1.31 (0.83-1.09) H 01/20/19 16:30 Problem List - Problems (1) Headache Assessment/Plan: Dr Friedman consult appreciated. Would not continue Pramipexole due to possible sedation in this patient with hypercarbic respiratory failure. Tylenol for headache would be a reasonable approach. Code(s): R51 - HEADACHE Qualifiers: Headache type: unspecified (2) Acute kidney injury superimposed on CKD Assessment/Plan: Worsened BUN/Cr due to diuretics and diarrhea. will follow BUN/Cr without IV additional fluids, Code(s): N17.9 - ACUTE KIDNEY FAILURE, UNSPECIFIED; N18.9 - CHRONIC KIDNEY DISEASE, UNSPECIFIED (3) Acute on chronic diastolic CHF (congestive heart failure) Assessment/Plan: CHF improved, CXR showes less congestion. Code(s): I50.33 - ACUTE ON CHRONIC DIASTOLIC (CONGESTIVE) HEART FAILURE (4) Acute respiratory failure with hypercapnia Code(s): J96.02 - ACUTE RESPIRATORY FAILURE WITH HYPERCAPNIA (5) Atrial fibrillation Assessment/Plan: Continue Eliquis PO. Code(s): I48.91 - UNSPECIFIED ATRIAL FIBRILLATION (6) Chest pain Assessment/Plan: Cardiology consult. No chest pain now continue telemetry Code(s): R07.9 - CHEST PAIN, UNSPECIFIED Qualifiers: Ischemic chest pain type: unspecified angina pectoris type (7) Acute kidney injury Assessment/Plan: BUN 70/creat 2.0-slowly improving. Code(s): N17.9 - ACUTE KIDNEY FAILURE, UNSPECIFIED (8) DM type 2 (diabetes mellitus, type 2) Code(s): E11.9 - TYPE 2 DIABETES MELLITUS WITHOUT COMPLICATIONS Qualifiers: Diabetes mellitus supervisor intermediates insulin use: with supervisor intermediates use Chronic kidney disease stage: stage 4 (severe) Qualified Code(s): E11.22 - Type 2 diabetes mellitus with diabetic chronic kidney disease; N18.4 - Chronic kidney disease, stage 4 (severe); Z79.4 - long-term (current) use of insulin (9) Elevated liver function tests Assessment/Plan: Will follow LFT, GI consult CT abdomen/liver-neg Problems reviewed: Yes Code(s): R94.5 - ABNORMAL RESULTS OF LIVER FUNCTION STUDIES
[2019-01-23] MEDS ORDERED: PT OWN MED DRAWER 7, Y5N ONE ×2 (13:24→21:30)
--- NOTE | 2019-01-23 15:33 | CON.GI ---
Consult Consult Specialty:: Gastroenterology - History of Present Illness History of Present Illness: Disregard as Dr Cisneros was the GI actually consulted. 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 History of Recent Travel: No Home Medications - Allergies Allergies/Adverse Reactions: Allergies Allergy/AdvReac Type Severity Reaction Status Date / Time No Known Allergies Allergy Verified 11/04/18 20:08 - Home Medications Home Medications: Ambulatory Orders Sitagliptin Phosphate [Januvia -] 25 mg PO DAILY@0700 #90 tab 10/14/14 Spironolactone [Aldactone -] 25 mg PO DAILY #30 tablet 03/31/17 Aspirin 81 mg PO DAILY 04/10/17 Insulin Glargine,Hum.rec.anlog [Lantus] 40 unit SQ DAILY 04/10/17 Metoprolol Succinate [Toprol Xl] 50 mg PO BID 02/20/18 Apixaban [Eliquis -] 2.5 mg PO BID 03/30/18 Colchicine [Mitigare] 0.6 mg PO BID 04/10/18 Torsemide 100 mg PO BID 05/19/18 Acetaminophen [Tylenol] 650 mg PO Q4H PRN 01/21/19 Physical Exam-GI Vital Signs: Vital Signs Temperature 97.7 F 01/23/19 10:00 Pulse Rate 77 01/23/19 10:00 Respiratory Rate 18 01/23/19 10:00 Blood Pressure 120/55 L 01/23/19 10:00 O2 Sat by Pulse Oximetry (%) 99 01/23/19 09:00 CBC,CMP WBC 4.9 K/mm3 (4.0-10.0) 01/23/19 05:30 RBC 4.81 M/mm3 (4.00-5.60) 01/23/19 05:30 Hgb 14.1 GM/dL (11.7-16.9) 01/23/19 05:30 Hct 42.0 % (35.4-49) 01/23/19 05:30 MCV 87.3 fl (80-96) 01/23/19 05:30 MCH 29.2 pg (25.7-33.7) 01/23/19 05:30 MCHC 33.5 g/dl (32.0-35.9) 01/23/19 05:30 RDW 19.3 % (11.9-15.9) H 01/23/19 05:30 Plt Count 199 K/MM3 (134-434) 01/23/19 05:30 MPV 9.2 fl (7.5-11.1) 01/23/19 05:30 Absolute Neuts (auto) 2.0 K/mm3 (1.5-8.0) 01/23/19 05:30 Total Counted 100 01/20/19 16:30 Neutrophils % 40.6 % (42.8-82.8) L 01/23/19 05:30 Neutrophils % (Manual) 44.7 % (42.8-82.8) 01/23/19 05:30 Band Neutrophils % 0.0 % 01/23/19 05:30 Lymphocytes % 25.3 % (8-40) 01/23/19 05:30 Lymphocytes % (Manual) 19.4 % (8-40) D 01/23/19 05:30 Monocytes % 33.1 % (3.8-10.2) H 01/23/19 05:30 Monocytes % (Manual) 33 % (3.8-10.2) H 01/23/19 05:30 Eosinophils % 0.1 % (0-4.5) 01/23/19 05:30 Eosinophils % (Manual) 0.0 % (0-4.5) 01/23/19 05:30 Basophils % 0.9 % (0-2.0) 01/23/19 05:30 Basophils % (Manual) 0.0 % (0-2.0) 01/23/19 05:30 Myelocytes % (Man) 1 % (0-2) D 01/23/19 05:30 Promyelocytes % (Man) 0 % (0-2) 01/23/19 05:30 Blast Cells % (Manual) 0 % (0-0) 01/23/19 05:30 Nucleated RBC % 0 % (0-0) 01/23/19 05:30 Metamyelocytes 0 % (0-2) D 01/23/19 05:30 Hypochromia 0 01/23/19 05:30 Platelet Estimate Normal 01/23/19 05:30 Platelet Comment No clumping noted 01/20/19 16:30 Polychromasia 1+ 01/23/19 05:30 Poikilocytosis 1+ 01/23/19 05:30 Anisocytosis 1+ 01/23/19 05:30 Microcytosis 1+ 01/23/19 05:30 Macrocytosis 0 01/23/19 05:30 ESR 18 mm/hr (0-20) 01/23/19 05:30 Sodium 136 mmol/L (136-145) 01/23/19 05:20 Potassium 4.1 mmol/L (3.5-5.1) 01/23/19 05:20 Chloride 101 mmol/L (98-107) 01/23/19 05:20 Carbon Dioxide 28 mmol/L (21-32) 01/23/19 05:20 Anion Gap 7 MMOL/L (8-16) L 01/23/19 05:20 BUN 71.6 mg/dL (7-18) H 01/23/19 05:20 Creatinine 2.0 mg/dL (0.55-1.3) H 01/23/19 05:20 Est GFR (CKD-EPI)AfAm 33.78 01/23/19 05:20 Est GFR (CKD-EPI)NonAf 29.14 01/23/19 05:20 POC Glucometer 141 UNITS (80-120) 01/23/19 11:14 Random Glucose 126 mg/dL (74-106) H 01/23/19 05:20 Lactic Acid 1.2 mmol/L (0.4-2.0) 01/20/19 16:33 Calcium 8.8 mg/dL (8.5-10.1) 01/23/19 05:20 Iron 80 ug/dL (50-175) 01/23/19 05:30 TIBC 340 ug/dL (250-450) 01/23/19 05:30 Iron Saturation 23 % (17.5-39) 01/23/19 05:30 Unsaturated IBC 260 ug/dL (200-275) 01/23/19 05:30 Total Bilirubin 0.8 mg/dL (0.2-1) 01/23/19 05:20 AST 170 U/L (15-37) H 01/23/19 05:20 ALT 186 U/L (13-61) H 01/23/19 05:20 Alkaline Phosphatase 134 U/L (45-117) H 01/23/19 05:20 Creatine Kinase 242 U/L (26-308) 01/21/19 05:52 Creatine Kinase Index 1.0 % (0.0-5.0) 01/21/19 05:52 CK-MB (CK-2) 2.5 ng/mL (0.5-3.6) 01/21/19 05:52 Troponin I 0.03 ng/ml (0.00-0.05) 01/21/19 05:52 C-Reactive Protein 1.2 MG/DL (0.00-0.3) H 01/23/19 05:30 B-Natriuretic Peptide 2949.4 pg/ml (5-450) H 01/20/19 16:30 Total Protein 6.7 g/dl (6.4-8.2) 01/23/19 05:20 Albumin 3.5 g/dl (3.4-5.0) 01/23/19 05:20 Vitamin B12 1588 pg/ml (193-986) H 01/23/19 05:30 TSH 1.55 uIU/ml (0.358-3.74) D 01/23/19 05:20 Current Medications Generic Name Dose Route Start Last Admin Trade Name Freq PRN Reason Stop Dose Admin Acetaminophen 650 mg 01/22/19 12:30 01/23/19 09:20 Tylenol - PO 650 mg Q6H PRN Administration PAIN =/> 5 Amoxicillin 750 mg 01/23/19 22:00 Amoxicillin - PO 01/28/19 23:59 BID JOE Apixaban 2.5 mg 01/20/19 22:00 01/23/19 09:20 Eliquis - PO 2.5 mg BID JOE Administration Aspirin 81 mg 01/21/19 10:00 01/23/19 09:19 Asa - PO 81 mg DAILY JOE Administration Colchicine 0.6 mg 01/20/19 22:00 01/23/19 09:19 Colcrys PO 0.6 mg BID JOE Administration Insulin Aspart 1 vial 01/21/19 07:00 01/23/19 11:16 Novolog Vial Sliding Scale - SQ Not Given ACHS [facility] Protocol Insulin Detemir 30 units 01/23/19 10:30 01/23/19 09:59 Levemir Vial SQ Not Given ACBK [facility] Methyl Salicylate 1 applic 01/20/19 22:30 01/20/19 23:03 Suraj-Valdez - TP 1 applic BID PRN Administration itchiness Metoprolol Succinate 50 mg 01/20/19 22:00 01/23/19 09:20 Toprol Xl - PO 50 mg BID JOE Administration Nitroglycerin 0.4 mg 01/21/19 08:21 01/21/19 08:20 Nitrostat - SL 0.4 mg Q5M PRN Administration FOR CHEST PAIN Pantoprazole Sodium 40 mg 01/21/19 10:00 01/23/19 09:20 Protonix - PO 40 mg DAILY JOE Administration Spironolactone 25 mg 01/21/19 10:00 01/23/19 09:20 Aldactone - PO 25 mg DAILY JOE Administration Labs: CBC, BMP 01/23/19 05:30 01/23/19 05:20 INR, PTT INR 1.31 (0.83-1.09) H 01/20/19 16:30 Laboratory Tests 11/04/18 11/08/18 11/14/18 19:55 05:50 05:40 Total Bilirubin 0.3 AST ALT 21 66 H Alkaline Phosphatase 101 76 11/16/18 11/17/18 11/18/18 05:48 06:15 07:15 Total Bilirubin 0.6 AST 32 ALT 83 H Alkaline Phosphatase 108 86 11/19/18 11/20/18 11/21/18 05:31 05:00 06:10 Total Bilirubin AST 85 H ALT 117 H 138 H 143 H Alkaline Phosphatase 106 01/20/19 01/21/19 01/23/19 16:30 05:52 05:20 Total Bilirubin 0.8 AST 204 H 163 H 170 H ALT 200 H 177 H 186 H Alkaline Phosphatase 134 H 123 H 134 H
--- NOTE | 2019-01-23 16:21 | CON.GI ---
Consult Consult Specialty:: GI Referred by:: Dr. Sunil Moseley Reason for Consultation:: Abnormal LFTs - History of Present Illness Chief Complaint: "I felt weak" History of Present Illness: 88M admitted 01/20 through [facility] ER for evaluation of weakness. Diarrhea reported as well. Stool culture, C. Diff were negative and loose bowel movements have improved (two today reported by nurse). Alos noted to have elevated transaminases (from admission) and elevated ALP as well during course of admission. Amoxicillin was started just today. He is maintained on colchicine prior to admission and Protonix was started during admission. He denies a known history of liver disease. He had a non contrast CT scan of the abdomen and pelvis performed on admission for RLQ pain that was unrevealing aside from a 2.7 x 2.4 cm left adrenal nodule. He denies rectal bleeding, fevers, chills, recent antibiotic use or travel. He complains of shortness of breath. He cannot recall when he last underwent colonoscopy and there is no family history of colorectal cancer or other GI malignancy. Per the chart he has a history of ulcerative colitis. Mr. Barber has no recollection of this. He does not appear to be on any medications for ulcerative colitis treatment. The chart lists nephrectomy, however, both kidneys are present on recent CT scan. 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 Place of : Other ([place]) History of Recent Travel: No Home Medications - Allergies Allergies/Adverse Reactions: Allergies Allergy/AdvReac Type Severity Reaction Status Date / Time No Known Allergies Allergy Verified 11/04/18 20:08 - Home Medications Home Medications: Ambulatory Orders Sitagliptin Phosphate [Januvia -] 25 mg PO DAILY@0700 #90 tab 10/14/14 Spironolactone [Aldactone -] 25 mg PO DAILY #30 tablet 03/31/17 Aspirin 81 mg PO DAILY 04/10/17 Insulin Glargine,Hum.rec.anlog [Lantus] 40 unit SQ DAILY 04/10/17 Metoprolol Succinate [Toprol Xl] 50 mg PO BID 02/20/18 Apixaban [Eliquis -] 2.5 mg PO BID 03/30/18 Colchicine [Mitigare] 0.6 mg PO BID 04/10/18 Torsemide 100 mg PO BID 05/19/18 Acetaminophen [Tylenol] 650 mg PO Q4H PRN 01/21/19 Family Medical History Other Family History: Mother: : Hip Fx. Father: in 70's "Was Sick". 1 brother: : "Was sick". 2 Sons: healthy. No family history of colorectal cancer or other GI malignancy Review of Systems - Review of Systems Constitutional: denies: Fever, Unintentional Wgt. Loss Cardiovascular: reports: Chest Pain (intermittent) Respiratory: reports: SOB, SOB on Exertion Gastrointestinal: reports: Diarrhea. denies: Abdominal Pain, Constipation, Melena, Rectal Bleeding, Vomiting Physical Exam-GI Vital Signs: Vital Signs Temperature 98.2 F 01/23/19 14:15 Pulse Rate 68 01/23/19 14:15 Respiratory Rate 16 01/23/19 14:15 Blood Pressure 115/61 01/23/19 14:15 O2 Sat by Pulse Oximetry (%) 99 01/23/19 09:00 Constitutional: Yes: Calm Eyes: No: Sclera Icterus Cardiovascular: Yes: Regular Rate and Rhythm, Murmur Respiratory: Yes: Rhonchi (bilaterally) Gastrointestinal Inspection: No: Distention ...Auscultate: Yes: Normoactive Bowel Sounds ...Palpate: Yes: Soft. No: Hepatomegaly, Splenomegaly, Tenderness Edema: No (No LE edema) Neurological: Yes: Alert Labs: CBC, BMP 01/23/19 05:30 01/23/19 05:20 INR, PTT INR 1.31 (0.83-1.09) H 01/20/19 16:30 Hepatic Panel Total Bilirubin 0.8 mg/dL (0.2-1) 01/23/19 05:20 AST 170 U/L (15-37) H 01/23/19 05:20 ALT 186 U/L (13-61) H 01/23/19 05:20 Alkaline Phosphatase 134 U/L (45-117) H 01/23/19 05:20 Albumin 3.5 g/dl (3.4-5.0) 01/23/19 05:20 Imaging - Results Cat Scan: Report Reviewed, Image Reviewed Problem List - Problems (1) Abnormal LFTs (liver function tests) Assessment/Plan: Liver chemistries were elevated on admission, however, contionue to rise ? If medication related, component of passive congestion, worsening of preexisting liver disease (noted elevated 11/06 as well) Ordered abdominal US Hepatitis A/B/C serologies ordered for AM Ordered CPK. complains of leg pain, ? rhabdo In setting of diarrhea ordered, Legionella urine antigen Discontinue protonix and acetaminophen. Eliminate other non essential medications. ? if colchicine can be held. Code(s): R94.5 - ABNORMAL RESULTS OF LIVER FUNCTION STUDIES (2) Diarrhea Assessment/Plan: Diarrhea has improved by description of Nurse. Two BM's today Has history of Ulcerative colitis. If diarrhea continues and when medically optimized, flexible sigmoidoscopy could be undertaken to assess for active colitis. Otherwise, continue supportive measures. I could not reproduce RLQ pain noted on admission. If RLQ pain recurs, CT scan, would repeat CT scan of the abdomen and pelvis with oral contrast. Code(s): R19.7 - DIARRHEA, UNSPECIFIED
[2019-01-23 18:42] VITALS: BMI 40.2
[2019-01-23] MEDS: AMOXICILLIN 250 MG CAPSULE PO SCH (21:44)
[2019-01-24] MEDS: INSULIN (LEVEMIR) 100 UNITS/ML UNITS SQ SCH (06:17)
[2019-01-24] MEDS: INSULIN SLIDING SCALE (NOVOLOG) 1 VIAL SQ SCH ×4 (06:17→21:54)
[2019-01-24 06:54] LABS: BASO % 0.9 % (0-2.0); EOS % 0.1 % (0-4.5); HEMATOCRIT 41.5 % (35.4-49); HEMOGLOBIN 14.1 GM/dL (11.7-16.9); LYMPH % 21.2 % (8-40); MCH 29.7 pg (25.7-33.7); MEAN CELL VOLUME 87.4 fl (80-96); MEAN PLT VOLUME 9.3 fl (7.5-11.1); MONO % 32.1 % (3.8-10.2); NEUT % 45.7 % (42.8-82.8); PLATELET COUNT 185 K/MM3 (134-434); RBC 4.75 M/mm3 (4.00-5.60); RDW 19.3 % (11.9-15.9)
[2019-01-24 07:18] LABS: ALBUMIN 3.4 g/dl (3.4-5.0); BILIRUBIN,TOTAL 0.6 mg/dL (0.2-1); BLOOD UREA NITROGEN 64.2 mg/dL (7-18); CALCIUM 8.5 mg/dL (8.5-10.1); CREATININE 1.8 mg/dL (0.55-1.3); POTASSIUM 4.5 mmol/L (3.5-5.1); TOT PROT 6.7 g/dl (6.4-8.2)
--- NOTE | 2019-01-24 08:22 | PN ---
Progress Note, Physician Chief Complaint: C/o generalized aches, CALDWELL, Right UE discomfort. Dr Matteo Cisneros consult appreciated. Hepatitis screen ordered. Possible sigmoidoscopy is considered. History of Present Illness: Cronic hypercarbic respiratory failure. at night bipap 15/8 Persistent 6.7cm left basilar atelectasis/consolidation. CABG ASHD. DM type on Levemir/Januvia. CRI/ckd 4. 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 Previous Thoracentesis in the past-neg for malignancy. JUAN-at nights using CPAP. Chronic A.Fib. Combined CHF. Gout. Gouty arthritis. Previous rectal surgery for abscess, fistula at [facility]. - Current Medication List Current Medications: Active Medications Amoxicillin (Amoxicillin -) 750 mg PO BID [facility] Stop: 01/28/19 23:59 Last Admin: 01/23/19 21:44 Dose: 750 mg Apixaban (Eliquis -) 2.5 mg PO BID [facility] Last Admin: 01/23/19 21:43 Dose: 2.5 mg Aspirin (Asa -) 81 mg PO DAILY [facility] Last Admin: 01/23/19 09:19 Dose: 81 mg Colchicine (Colcrys) 0.6 mg PO BID [facility] Last Admin: 01/23/19 21:42 Dose: 0.6 mg Insulin Aspart (Novolog Vial Sliding Scale -) 1 vial SQ [facility]; Protocol Last Admin: 01/24/19 06:17 Dose: Not Given Insulin Detemir (Levemir Vial) 30 units SQ ACBK [facility] Last Admin: 01/24/19 06:17 Dose: Not Given Methyl Salicylate (Suraj-Valdez -) 1 applic TP BID PRN PRN Reason: itchiness Last Admin: 01/20/19 23:03 Dose: 1 applic Metoprolol Succinate (Toprol Xl -) 50 mg PO BID [facility] Last Admin: 01/23/19 21:42 Dose: 50 mg Nitroglycerin (Nitrostat -) 0.4 mg SL Q5M PRN PRN Reason: FOR CHEST PAIN Last Admin: 01/21/19 08:20 Dose: 0.4 mg Spironolactone (Aldactone -) 25 mg PO DAILY [facility] Last Admin: 01/23/19 09:20 Dose: 25 mg - Objective Vital Signs: Vital Signs Temperature 97.7 F 01/24/19 08:06 Pulse Rate 76 01/24/19 08:06 Respiratory Rate 18 01/24/19 08:06 Blood Pressure 116/67 01/24/19 08:06 O2 Sat by Pulse Oximetry (%) 98 01/24/19 07:47 Constitutional: Yes: Anxious, Mild Distress Eyes: Yes: Conjunctiva Clear, EOM Intact HENT: Yes: Atraumatic, Normocephalic Neck: Yes: Supple, Trachea Midline Cardiovascular: Yes: Pulse Irregular, S1, S2. No: JVD Respiratory: Yes: Regular, CTA Bilaterally Gastrointestinal: Yes: Normal Bowel Sounds, Soft, Abdomen, Obese. No: Palpable Mass ...Rectal Exam: Yes: Deferred Genitourinary: No: Anuria, Bladder Distention Breast(s): Yes: WNL Musculoskeletal: Yes: Muscle Weakness, Other (LE weakness) Edema: No Integumentary: Yes: WNL Neurological: Yes: Alert, Oriented, Weakness (LE). No: Aphasia, Dysarthria, Paresthesia Psychiatric: Yes: WNL Labs: CBC, BMP 01/24/19 05:15 01/24/19 05:15 INR, PTT INR 1.31 (0.83-1.09) H 01/20/19 16:30 Laboratory Results - last 24 hr 01/23/19 01/23/19 01/23/19 05:30 05:30 11:14 WBC RBC Hgb Hct MCV MCH MCHC RDW Plt Count MPV Absolute Neuts (auto) Neutrophils % Neutrophils % (Manual) 44.7 Band Neutrophils % 0.0 Lymphocytes % Lymphocytes % (Manual) 19.4 D Monocytes % Monocytes % (Manual) 33 H Eosinophils % Eosinophils % (Manual) 0.0 Basophils % Basophils % (Manual) 0.0 Myelocytes % (Man) 1 D Promyelocytes % (Man) 0 Blast Cells % (Manual) 0 Nucleated RBC % Metamyelocytes 0 D Hypochromia 0 Platelet Estimate Normal Polychromasia 1+ Poikilocytosis 1+ Anisocytosis 1+ Microcytosis 1+ Macrocytosis 0 Sodium Potassium Chloride Carbon Dioxide Anion Gap BUN Creatinine Est GFR (CKD-EPI)AfAm Est GFR (CKD-EPI)NonAf POC Glucometer 141 Random Glucose Calcium Total Bilirubin AST ALT Alkaline Phosphatase Total Protein Albumin RPR Titer Nonreactive 01/23/19 01/23/19 01/24/19 16:57 21:41 05:15 WBC 5.0 RBC 4.75 Hgb 14.1 Hct 41.5 MCV 87.4 MCH 29.7 MCHC 34.0 RDW 19.3 H Plt Count 185 MPV 9.3 Absolute Neuts (auto) 2.3 Neutrophils % 45.7 Neutrophils % (Manual) Band Neutrophils % Lymphocytes % 21.2 Lymphocytes % (Manual) Monocytes % 32.1 H Monocytes % (Manual) Eosinophils % 0.1 Eosinophils % (Manual) Basophils % 0.9 Basophils % (Manual) Myelocytes % (Man) Promyelocytes % (Man) Blast Cells % (Manual) Nucleated RBC % 0 Metamyelocytes Hypochromia Platelet Estimate Polychromasia Poikilocytosis Anisocytosis Microcytosis Macrocytosis Sodium Potassium Chloride Carbon Dioxide Anion Gap BUN Creatinine Est GFR (CKD-EPI)AfAm Est GFR (CKD-EPI)NonAf POC Glucometer 128 162 Random Glucose Calcium Total Bilirubin AST ALT Alkaline Phosphatase Total Protein Albumin RPR Titer 01/24/19 01/24/19 05:15 06:16 WBC RBC Hgb Hct MCV MCH MCHC RDW Plt Count MPV Absolute Neuts (auto) Neutrophils % Neutrophils % (Manual) Band Neutrophils % Lymphocytes % Lymphocytes % (Manual) Monocytes % Monocytes % (Manual) Eosinophils % Eosinophils % (Manual) Basophils % Basophils % (Manual) Myelocytes % (Man) Promyelocytes % (Man) Blast Cells % (Manual) Nucleated RBC % Metamyelocytes Hypochromia Platelet Estimate Polychromasia Poikilocytosis Anisocytosis Microcytosis Macrocytosis Sodium 137 Potassium 4.5 Chloride 102 Carbon Dioxide 29 Anion Gap 6 L BUN 64.2 H Creatinine 1.8 H Est GFR (CKD-EPI)AfAm 38.37 Est GFR (CKD-EPI)NonAf 33.10 POC Glucometer 132 Random Glucose 136 H Calcium 8.5 Total Bilirubin 0.6 AST 171 H ALT 206 H Alkaline Phosphatase 134 H Total Protein 6.7 Albumin 3.4 RPR Titer Problem List - Problems (1) Headache Assessment/Plan: Dr Friedman consult appreciated. Would not continue Pramipexole due to possible sedation in this patient with hypercarbic respiratory failure. Tylenol for headache would be a reasonable approach. Code(s): R51 - HEADACHE Qualifiers: Headache type: unspecified (2) Acute kidney injury superimposed on CKD Assessment/Plan: Improved BUN/Cr 64/1.8 today-this is close to patient baseline will re-check BUN/Cr. will follow BUN/Cr without IV additional fluids, Code(s): N17.9 - ACUTE KIDNEY FAILURE, UNSPECIFIED; N18.9 - CHRONIC KIDNEY DISEASE, UNSPECIFIED (3) Atrial fibrillation Assessment/Plan: Continue Eliquis PO. Code(s): I48.91 - UNSPECIFIED ATRIAL FIBRILLATION (4) Chest pain Assessment/Plan: Cardiology consult. No chest pain now continue telemetry Code(s): R07.9 - CHEST PAIN, UNSPECIFIED Qualifiers: Ischemic chest pain type: unspecified angina pectoris type (5) DM type 2 (diabetes mellitus, type 2) Code(s): E11.9 - TYPE 2 DIABETES MELLITUS WITHOUT COMPLICATIONS Qualifiers: Diabetes mellitus turner off insulin use: with custodial use Chronic kidney disease stage: stage 4 (severe) (6) Elevated liver function tests Assessment/Plan: Will follow LFT, GI consult appreciated. US , hepatitis w/u ordered. CT abdomen/liver-neg Flex sig possibly. Code(s): R94.5 - ABNORMAL RESULTS OF LIVER FUNCTION STUDIES (7) Weakness of both lower extremities Assessment/Plan: CPK [id number]- 11/2-3 Today -pending Will continue with PT for ambulation. Problems reviewed: Yes Code(s): R29.898 - OTH SYMPTOMS AND SIGNS INVOLVING THE MUSCULOSKELETAL SYSTEM
[2019-01-24] MEDS: AMOXICILLIN 250 MG CAPSULE PO SCH ×2 (09:54→21:53)
[2019-01-24] MEDS: ASPIRIN 81 MG CHEWABLE TABLETS PO SCH (09:55)
[2019-01-24] MEDS: COLCHICINE 0.6 MG CAP PO SCH (09:55)
[2019-01-24] MEDS: APIXABAN 2.5 MG TABLET PO SCH ×2 (09:55→21:53)
[2019-01-24] MEDS: SPIRONOLACTONE 25 MG TABLET (FP) PO SCH (09:55)
--- NOTE | 2019-01-24 10:24 | PN ---
Progress Note (short form) - Note Progress Note: s: no chest pain palps dizziness dyspnea Current Medications Amoxicillin (Amoxicillin -) 750 mg PO BID [facility] Stop: 01/28/19 23:59 Last Admin: 01/24/19 09:54 Dose: 750 mg Apixaban (Eliquis -) 2.5 mg PO BID [facility] Last Admin: 01/24/19 09:55 Dose: 2.5 mg Aspirin (Asa -) 81 mg PO DAILY [facility] Last Admin: 01/24/19 09:55 Dose: 81 mg Colchicine (Colcrys) 0.6 mg PO DAILY [facility] Last Admin: 01/24/19 09:55 Dose: 0.6 mg Insulin Aspart (Novolog Vial Sliding Scale -) 1 vial SQ ACHS [facility]; Protocol Last Admin: 01/24/19 06:17 Dose: Not Given Insulin Detemir (Levemir Vial) 30 units SQ ACBK [facility] Last Admin: 01/24/19 06:17 Dose: Not Given Methyl Salicylate (Suraj-Valdez -) 1 applic TP BID PRN PRN Reason: itchiness Last Admin: 01/20/19 23:03 Dose: 1 applic Metoprolol Succinate (Toprol Xl -) 50 mg PO BID [facility] Last Admin: 01/24/19 09:55 Dose: 50 mg Nitroglycerin (Nitrostat -) 0.4 mg SL Q5M PRN PRN Reason: FOR CHEST PAIN Last Admin: 01/21/19 08:20 Dose: 0.4 mg Spironolactone (Aldactone -) 25 mg PO DAILY [facility] Last Admin: 01/24/19 09:55 Dose: 25 mg Vital Signs Period Temp Pulse Resp BP Sys/Junior Pulse Ox Last 24 Hr 97.6 F-98.2 F 68-95 16-18 109-128/52-71 97-98 nad CTAB nl s1, s2, no m/r/g, no JVD no edema, wwp soft, nt, nd, +bs aox3 no jaundice, diaphoresis not agitated Assessment/Plan Echo 04/2018: EF 45%, mod MR/TR, at least mild , moderate to severe PHTN Nuclear stress 2017: Pharm: small inferolat infarct, mild arlin-infarct ischemia , Overall EF 35-40% CXR: no congestion ECG afib, no path q's, leftwad axis, NSTWAs--no signif change vs prior tele: afib, rate controlled, PVCs diarrhea -manage per primary, GI -improving chest pain: -trop neg x 3, no ischemic changes on EKG - unlikely ACS -no ischemia 2016 MPI - now resolved - dc tele Chronic mixed sytolic/diastolic CHF, EF 45%: -declined cardiomems previously (sees francescone) -prior home regimen: torsemide 100 bid, spironolactone 25, metopr. 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
[2019-01-24 10:57] LABS: ANISOCYTOSIS 0; MACROCYTOSIS 0; PLATELET ESTIMATE NORMAL
--- NOTE | 2019-01-24 12:02 | PN.GI ---
GI Progress Note Subjective: Feels better with less diarrhea. No abdominal pain. - Objective Vital Signs: Vital Signs Temperature 97.7 F 01/24/19 08:06 Pulse Rate 76 01/24/19 08:06 Respiratory Rate 18 01/24/19 08:06 Blood Pressure 116/67 01/24/19 08:06 O2 Sat by Pulse Oximetry (%) 98 01/24/19 07:47 Constitutional: No Distress, Calm Gastrointestinal Inspection: No: Ascites ...Auscultate: Yes: Normoactive Bowel Sounds ...Palpate: Yes: Soft. No: Hepatomegaly, Mass, Tenderness Labs: CBC, BMP 01/24/19 05:15 01/24/19 05:15 INR, PTT INR 1.31 (0.83-1.09) H 01/20/19 16:30 Assessment/Plan Diarrhea in patient with UC--await C diff and other stool studies. Would add fecal calprotectin. Elevated AST and ALT with elevated alkaline phosphatase. In patient with UC, high level of suspicion for complications from primary sclerosing cholangitis. However, very broad differential diagnosis including accidental acetaminophen toxicity resolving, fatty liver, viral hepatitis, cholangiocarcinoma and others. For now, would re-check INR to be sure correcting, followe liver chemistires, await Legionella antigen. Would arrange for MRCP to investigate for possible PSC changes. Once clinically stable, will need surveillance colonsocopy due to high risk for CRC.
[2019-01-24] MEDS ORDERED: ACETAMINOPHEN 325 MG TABLET (FP) PO PRN (15:57)
[2019-01-25] MEDS: INSULIN (LEVEMIR) 100 UNITS/ML UNITS SQ SCH (06:42)
[2019-01-25] MEDS: INSULIN SLIDING SCALE (NOVOLOG) 1 VIAL SQ SCH ×4 (06:43→22:16)
--- NOTE | 2019-01-25 08:24 | PN ---
Progress Note, Physician Chief Complaint: C/o generalized weakness. Now was transferred to [facility] Liver US noted-possibly fatty liver. GI note read and greatly appreciated. No clear history of Crohn's colitis in the history and PSC is less likely as well as cholangeocarcinoma . Calprotectin can be checked, though Colonoscopy/EGD is associated with high risk of complications, due to severe chronic hypercapnic respiratory failure, CHF and NOAC use for A.FIB. History of Present Illness: Cronic hypercarbic respiratory failure. at night bipap 15/8 Persistent 6.7cm left basilar atelectasis/consolidation. CABG ASHD. DM type on Levemir/Januvia. CRI/ckd 4. 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 Previous Thoracentesis in the past-neg for malignancy. JUAN-at nights using CPAP. Chronic A.Fib. Combined CHF. Gout. Gouty arthritis. Previous rectal surgery for abscess, fistula at [facility]. - Current Medication List Current Medications: Active Medications Acetaminophen (Tylenol -) 650 mg PO Q8H PRN PRN Reason: PAIN > OR = 5 Last Admin: 01/24/19 19:16 Dose: 650 mg Amoxicillin (Amoxicillin -) 750 mg PO BID [facility] Stop: 01/28/19 23:59 Last Admin: 01/24/19 21:53 Dose: 750 mg Apixaban (Eliquis -) 2.5 mg PO BID [facility] Last Admin: 01/24/19 21:53 Dose: 2.5 mg Aspirin (Asa -) 81 mg PO DAILY [facility] Last Admin: 01/24/19 09:55 Dose: 81 mg Colchicine (Colcrys) 0.6 mg PO DAILY [facility] Last Admin: 01/24/19 09:55 Dose: 0.6 mg Insulin Aspart (Novolog Vial Sliding Scale -) 1 vial SQ ACHS [facility]; Protocol Last Admin: 01/25/19 06:43 Dose: Not Given Insulin Detemir (Levemir Vial) 30 units SQ ACBK [facility] Last Admin: 01/25/19 06:42 Dose: 30 unit Methyl Salicylate (Suraj-Valdez -) 1 applic TP BID PRN PRN Reason: itchiness Last Admin: 01/20/19 23:03 Dose: 1 applic Metoprolol Succinate (Toprol Xl -) 50 mg PO BID [facility] Last Admin: 01/24/19 21:54 Dose: 50 mg Nitroglycerin (Nitrostat -) 0.4 mg SL Q5M PRN PRN Reason: FOR CHEST PAIN Last Admin: 01/21/19 08:20 Dose: 0.4 mg Spironolactone (Aldactone -) 25 mg PO DAILY JOE Last Admin: 01/24/19 09:55 Dose: 25 mg - Objective Vital Signs: Vital Signs Temperature 98 F 01/25/19 06:10 Pulse Rate 89 01/25/19 06:10 Respiratory Rate 18 01/25/19 06:10 Blood Pressure 122/75 01/25/19 06:10 O2 Sat by Pulse Oximetry (%) 98 01/25/19 05:00 Constitutional: Yes: Calm, Mild Distress Eyes: Yes: Conjunctiva Clear, EOM Intact HENT: Yes: Atraumatic, Normocephalic Neck: Yes: Supple, Trachea Midline Cardiovascular: Yes: Pulse Irregular (A.Fib) Respiratory: Yes: Regular, CTA Bilaterally Gastrointestinal: Yes: Normal Bowel Sounds, Soft, Abdomen, Obese. No: Ascites, Palpable Mass, Tenderness (RLQ) ...Rectal Exam: Yes: Deferred Genitourinary: No: Anuria, Bladder Distention Breast(s): Yes: WNL Musculoskeletal: Yes: Muscle Weakness Extremities: No: Amputation Edema: No Peripheral Pulses WNL: No Integumentary: Yes: WNL ...Motor Strength: LUE, LLE, RUE, RLE (Weakness) Psychiatric: Yes: WNL Labs: CBC, BMP 01/24/19 05:15 INR, PTT INR 1.31 (0.83-1.09) H 01/20/19 16:30 - ....Imaging Ultrasound: Report Reviewed Problem List - Problems (1) Headache Assessment/Plan: Dr Friedman consult appreciated. Would not continue Pramipexole due to possible sedation in this patient with hypercarbic respiratory failure. Tylenol for headache would be a reasonable approach. Code(s): R51 - HEADACHE Qualifiers: Headache type: unspecified (2) Acute kidney injury superimposed on CKD Assessment/Plan: Improved US kidneys-cysts, will follow BUN/Cr , Code(s): N17.9 - ACUTE KIDNEY FAILURE, UNSPECIFIED; N18.9 - CHRONIC KIDNEY DISEASE, UNSPECIFIED (3) Acute on chronic diastolic CHF (congestive heart failure) Assessment/Plan: CHF improved, CXR showes less congestion. Code(s): I50.33 - ACUTE ON CHRONIC DIASTOLIC (CONGESTIVE) HEART FAILURE (4) Acute respiratory failure with hypercapnia Code(s): J96.02 - ACUTE RESPIRATORY FAILURE WITH HYPERCAPNIA (5) Atrial fibrillation Assessment/Plan: Continue Eliquis PO. Code(s): I48.91 - UNSPECIFIED ATRIAL FIBRILLATION (6) Chest pain Assessment/Plan: Cardiology consult. No chest pain now continue telemetry Code(s): R07.9 - CHEST PAIN, UNSPECIFIED Qualifiers: Ischemic chest pain type: unspecified angina pectoris type (7) DM type 2 (diabetes mellitus, type 2) Problems reviewed: Yes Code(s): E11.9 - TYPE 2 DIABETES MELLITUS WITHOUT COMPLICATIONS Qualifiers: Diabetes mellitus care home insulin use: with tank terminal gauger use Chronic kidney disease stage: stage 4 (severe) (8) Elevated liver function tests Assessment/Plan: Will follow LFT, GI consult appreciated. US noted. CT abdomen/liver-neg . Code(s): R94.5 - ABNORMAL RESULTS OF LIVER FUNCTION STUDIES (9) Weakness of both lower extremities Assessment/Plan: CPK remains normal Weakness probably due to deconditioning Will continue with PT for ambulation. Code(s): R29.898 - OTH SYMPTOMS AND SIGNS INVOLVING THE MUSCULOSKELETAL SYSTEM
[2019-01-25 08:33] LABS: ALBUMIN 3.5 g/dl (3.4-5.0); BILIRUBIN,TOTAL 0.7 mg/dL (0.2-1); BLOOD UREA NITROGEN 56.5 mg/dL (7-18); CREATININE 1.7 mg/dL (0.55-1.3); POTASSIUM 4.6 mmol/L (3.5-5.1); TOT PROT 6.5 g/dl (6.4-8.2); URIC ACID 9.3 mg/dL (2.6-7.2)
[2019-01-25] MEDS ORDERED: PT OWN MED DRAWER 7, Y5N ONE ×3 (09:25→22:20)
[2019-01-25] MEDS: COLCHICINE 0.6 MG CAP PO SCH (09:30)
[2019-01-25] MEDS: AMOXICILLIN 250 MG CAPSULE PO SCH ×2 (09:31→22:31)
[2019-01-25] MEDS: ASPIRIN 81 MG CHEWABLE TABLETS PO SCH (09:31)
[2019-01-25] MEDS: SPIRONOLACTONE 25 MG TABLET (FP) PO SCH (09:31)
[2019-01-25] MEDS: APIXABAN 2.5 MG TABLET PO SCH ×2 (09:31→22:16)
--- NOTE | 2019-01-25 11:41 | PN ---
Progress Note (short form) - Note Progress Note: s: no chest pain palps dizziness dyspnea Current Medications Generic Name Dose Route Start Last Admin Trade Name Freq PRN Reason Stop Dose Admin Acetaminophen 650 mg 01/24/19 15:57 01/24/19 19:16 Tylenol - PO 650 mg Q8H PRN Administration PAIN > OR = 5 Amoxicillin 750 mg 01/23/19 22:00 01/25/19 09:31 Amoxicillin - PO 01/28/19 23:59 750 mg BID JOE Administration Apixaban 2.5 mg 01/20/19 22:00 01/25/19 09:31 Eliquis - PO 2.5 mg BID JOE Administration Aspirin 81 mg 01/21/19 10:00 01/25/19 09:31 Asa - PO 81 mg DAILY JOE Administration Colchicine 0.6 mg 01/24/19 10:00 01/25/19 09:30 Colcrys PO 0.6 mg DAILY JOE Administration Insulin Aspart 1 vial 01/21/19 07:00 01/25/19 06:43 Novolog Vial Sliding Scale - SQ Not Given ACHS [facility] Protocol Insulin Detemir 30 units 01/23/19 10:30 01/25/19 06:42 Levemir Vial SQ 30 unit ACBK JOE Administration Methyl Salicylate 1 applic 01/20/19 22:30 01/20/19 23:03 Suraj-Valdez - TP 1 applic BID PRN Administration itchiness Metoprolol Succinate 50 mg 01/20/19 22:00 01/25/19 09:31 Toprol Xl - PO 50 mg BID JOE Administration Nitroglycerin 0.4 mg 01/21/19 08:21 01/21/19 08:20 Nitrostat - SL 0.4 mg Q5M PRN Administration FOR CHEST PAIN Spironolactone 25 mg 01/21/19 10:00 01/25/19 09:31 Aldactone - PO 25 mg DAILY JOE Administration Vital Signs Period Temp Pulse Resp BP Sys/Junior Pulse Ox Last 24 Hr 97.7 F-98.1 F 77-92 18-18 103-122/46-76 95-98 nad CTAB nl s1, s2, no m/r/g, no JVD no edema soft, nt, nd, +bs aox3 no jaundice, diaphoresis not agitated Laboratory Last Values WBC 5.0 K/mm3 (4.0-10.0) 01/24/19 05:15 RBC 4.75 M/mm3 (4.00-5.60) 01/24/19 05:15 Hgb 14.1 GM/dL (11.7-16.9) 01/24/19 05:15 Hct 41.5 % (35.4-49) 01/24/19 05:15 MCV 87.4 fl (80-96) 01/24/19 05:15 MCH 29.7 pg (25.7-33.7) 01/24/19 05:15 MCHC 34.0 g/dl (32.0-35.9) 01/24/19 05:15 RDW 19.3 % (11.9-15.9) H 01/24/19 05:15 Plt Count 185 K/MM3 (134-434) 01/24/19 05:15 MPV 9.3 fl (7.5-11.1) 01/24/19 05:15 Absolute Neuts (auto) 2.3 K/mm3 (1.5-8.0) 01/24/19 05:15 Total Counted 100 01/20/19 16:30 Neutrophils % 45.7 % (42.8-82.8) 01/24/19 05:15 Neutrophils % (Manual) 43.7 % (42.8-82.8) 01/24/19 05:15 Band Neutrophils % 0.0 % 01/24/19 05:15 Lymphocytes % 21.2 % (8-40) 01/24/19 05:15 Lymphocytes % (Manual) 26.9 % (8-40) D 01/24/19 05:15 Monocytes % 32.1 % (3.8-10.2) H 01/24/19 05:15 Monocytes % (Manual) 29 % (3.8-10.2) H 01/24/19 05:15 Eosinophils % 0.1 % (0-4.5) 01/24/19 05:15 Eosinophils % (Manual) 0.0 % (0-4.5) 01/24/19 05:15 Basophils % 0.9 % (0-2.0) 01/24/19 05:15 Basophils % (Manual) 0.0 % (0-2.0) 01/24/19 05:15 Myelocytes % (Man) 0 % (0-2) D 01/24/19 05:15 Promyelocytes % (Man) 0 % (0-2) 01/24/19 05:15 Blast Cells % (Manual) 0 % (0-0) 01/24/19 05:15 Nucleated RBC % 0 % (0-0) 01/24/19 05:15 Metamyelocytes 0 % (0-2) 01/24/19 05:15 Hypochromia 0 01/24/19 05:15 Platelet Estimate Normal 01/24/19 05:15 Platelet Comment No clumping noted 01/20/19 16:30 Polychromasia 0 01/24/19 05:15 Poikilocytosis 0 01/24/19 05:15 Anisocytosis 0 01/24/19 05:15 Microcytosis 0 01/24/19 05:15 Macrocytosis 0 01/24/19 05:15 ESR 18 mm/hr (0-20) 01/23/19 05:30 PT with INR 15.50 SEC (9.7-13.0) H 01/20/19 16:30 INR 1.31 (0.83-1.09) H 01/20/19 16:30 PTT (Actin FS) 37.0 SECONDS (25.2-36.5) H 01/20/19 16:30 Anticoagulation Therapy No Result Required. 01/20/19 18:39 Puncture Site Right radial 01/20/19 18:39 ABG pH 7.44 (7.35-7.45) 01/20/19 18:39 ABG pCO2 at Pt Temp 32.9 mmHg (35-45) L 01/20/19 18:39 ABG pO2 at Pt Temp 110 mmHg (80-100) H 01/20/19 18:39 ABG HCO3 21.8 mmol/L (22-27) L 01/20/19 18:39 ABG O2 Sat (Measured) 97.9 % (95-98) 01/20/19 18:39 ABG O2 Content 19.6 % vol 01/20/19 18:39 ABG Base Excess -1.1 meq/l (-2-2) 01/20/19 18:39 Esteban Test Positive 01/20/19 18:39 Carboxyhemoglobin 1.1 % (0-2) 01/20/19 18:39 Methemoglobin < 1.0 % (0-2) 01/20/19 18:39 O2 Delivery Device N/c 01/20/19 18:39 Oxygen Flow Rate 3l 01/20/19 18:39 Vent Mode No Result Required. 01/20/19 18:39 Vent Rate No Result Required. 01/20/19 18:39 Mechanical Rate No Result Required. 01/20/19 18:39 Pressure Support Vent No Result Required. 01/20/19 18:39 Sodium 138 mmol/L (136-145) 01/25/19 07:06 Potassium 4.6 mmol/L (3.5-5.1) 01/25/19 07:06 Chloride 104 mmol/L (98-107) 01/25/19 07:06 Carbon Dioxide 30 mmol/L (21-32) 01/25/19 07:06 Anion Gap 5 MMOL/L (8-16) L 01/25/19 07:06 BUN 56.5 mg/dL (7-18) H 01/25/19 07:06 Creatinine 1.7 mg/dL (0.55-1.3) H 01/25/19 07:06 Est GFR (CKD-EPI)AfAm 41.11 01/25/19 07:06 Est GFR (CKD-EPI)NonAf 35.47 01/25/19 07:06 POC Glucometer 156 UNITS (80-120) 01/25/19 06:39 Random Glucose 152 mg/dL (74-106) H 01/25/19 07:06 Lactic Acid 1.2 mmol/L (0.4-2.0) 01/20/19 16:33 Uric Acid 9.3 mg/dL (2.6-7.2) H 01/25/19 07:06 Calcium 9.0 mg/dL (8.5-10.1) 01/25/19 07:06 Iron 80 ug/dL (50-175) 01/23/19 05:30 TIBC 340 ug/dL (250-450) 01/23/19 05:30 Iron Saturation 23 % (17.5-39) 01/23/19 05:30 Unsaturated IBC 260 ug/dL (200-275) 01/23/19 05:30 Total Bilirubin 0.7 mg/dL (0.2-1) 01/25/19 07:06 AST 128 U/L (15-37) H 01/25/19 07:06 ALT 173 U/L (13-61) H 01/25/19 07:06 Alkaline Phosphatase 121 U/L (45-117) H 01/25/19 07:06 Creatine Kinase 183 U/L (26-308) 01/24/19 05:15 Creatine Kinase Index 1.0 % (0.0-5.0) 01/24/19 05:15 CK-MB (CK-2) 2.0 ng/mL (0.5-3.6) 01/24/19 05:15 Troponin I 0.03 ng/ml (0.00-0.05) 01/21/19 05:52 C-Reactive Protein 1.2 MG/DL (0.00-0.3) H 01/23/19 05:30 B-Natriuretic Peptide 2949.4 pg/ml (5-450) H 01/20/19 16:30 Total Protein 6.5 g/dl (6.4-8.2) 01/25/19 07:06 Albumin 3.5 g/dl (3.4-5.0) 01/25/19 07:06 Vitamin B12 1588 pg/ml (193-986) H 01/23/19 05:30 TSH 1.55 uIU/ml (0.358-3.74) D 01/23/19 05:20 Urine Color Yellow 01/21/19 04:00 Urine Appearance Clear 01/21/19 04:00 Urine pH 5.0 (5.0-8.0) D 01/21/19 04:00 Ur Specific [place] 1.011 (1.010-1.035) 01/21/19 04:00 Urine Protein Negative (NEGATIVE) 01/21/19 04:00 Urine Glucose (UA) Negative (NEGATIVE) 01/21/19 04:00 Urine Ketones Negative (NEGATIVE) 01/21/19 04:00 Urine Blood Negative (NEGATIVE) 01/21/19 04:00 Urine Nitrite Negative (NEGATIVE) 01/21/19 04:00 Urine Bilirubin Negative (NEGATIVE) 01/21/19 04:00 Urine Urobilinogen 0.2 mg/dL (0.2-1.0) 01/21/19 04:00 Ur Leukocyte Esterase Negative (NEGATIVE) 01/21/19 04:00 RPR Titer Nonreactive (NONREACTIVE) 01/23/19 05:30 Hep C Ab Diagnostic 0.1 s/co ratio (0.0-0.9) 01/24/19 05:15 Assessment/Plan Echo 04/2018: EF 45%, mod MR/TR, at least mild , moderate to severe PHTN Nuclear stress 2017: Pharm: small inferolat infarct, mild arlin-infarct ischemia , Overall EF 35-40% CXR: no congestion ECG afib, no path q's, leftwad axis, NSTWAs--no signif change vs prior diarrhea -manage per primary, GI -improving chest pain: -trop neg x 3, no ischemic changes on EKG - unlikely ACS -no ischemia 2017 MPI -now resolved Chronic mixed sytolic/diastolic CHF, EF 45%: -declined cardiomems previously (sees francescone) -prior home regimen: torsemide 100 bid, spironolactone 25, metopr. 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
[2019-01-25] MEDS ORDERED: INSULIN (NOVOLOG) ASPART 100 UNITS/ML 10ML VIAL ONE (12:54)
--- NOTE | 2019-01-25 20:31 | CONS ---
DATE OF CONSULTATION: DATE OF DICTATION: 01/25/2019 REASON FOR CONSULTATION: Urinary retention. Patient apparently was complaining of abdominal pain earlier today and was noted to have a distended bladder. Initial attempts at passing a Dyer were unsuccessful. However, when an 18[place] coude was employed, it did pass, and approximately 1 L of urine emptied from the bladder, relieving the patient of the abdominal pain. Patient reports not having had any prior difficulty voiding and denies seeing an urologist in the past. However, history indicates there is an element of dementia; so, his history is not completely reliable. Patient was not on any urologic medications at the time of his admission. Significantly, the admission CAT scan does not report a distended bladder. PHYSICAL EXAMINATION: General: Pertinent exam revealed the patient to be a morbidly obese male. Genitourinary: The bladder was not palpably distended. A catheter was in place and draining slightly cloudy urine. Rectal: On digital rectal exam, the prostate was only slightly enlarged and somewhat firm. 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 In fact, when he had a 1000 mL of urine, he was only mildly uncomfortable according to the patient. More than likely, he was voiding by Valsalva, but over the last couple of weeks as he has gotten progressively weaker and for the past few days unable to stand and ambulate, he simply was not able to forcibly push the urine out. RECOMMENDATIONS: I think the catheter should be left in place until the patient is at least able to stand. He has already been started on tamsulosin, and this should be continued. Once he is able to ambulate, the catheter can be removed and he can be given a trial of voiding. If he is unable to void at that time, we will have to discuss with Medicine as to the most appropriate approach given the numerous significant medical problems that he currently has. MD MIHAI [id number]
[2019-01-26] MEDS: INSULIN SLIDING SCALE (NOVOLOG) 1 VIAL SQ SCH ×3 (07:44→16:42)
[2019-01-26] MEDS ORDERED: TAMSULOSIN HCL 0.4 MG CAP PO SCH (08:30)
[2019-01-26] MEDS: INSULIN (LEVEMIR) 100 UNITS/ML UNITS SQ SCH (08:32)
--- NOTE | 2019-01-26 09:07 | PN ---
Progress Note (short form) - Note Progress Note: Dyer catheter was placed by Dr Young for 1000 cc urinary retention. The patient has mild outlet obstruction and atonic bladder. The patient was started on Flomax. The patient requests to d/c Dyer. Dyer was removed today AM If cannot urinate will re-insert and d/c with Dyer to SNF. Informed son Sunday. Vital Signs (72 hours) 01/23/19 01/23/19 01/23/19 10:00 14:15 18:00 Temperature 97.7 F 98.2 F 97.6 F Pulse Rate 77 68 75 Respiratory 18 16 18 Rate Blood Pressure 120/55 L 115/61 121/68 O2 Sat by Pulse Oximetry (%) 01/23/19 01/23/19 01/24/19 21:00 22:00 01:59 Temperature 98.1 F 97.6 F Pulse Rate 78 76 Respiratory 17 18 Rate Blood Pressure 109/61 115/52 L O2 Sat by Pulse 97 Oximetry (%) 01/24/19 01/24/19 01/24/19 06:00 07:47 08:06 Temperature 97.8 F 97.7 F Pulse Rate 79 95 H 76 Respiratory 18 18 Rate Blood Pressure 128/71 116/67 O2 Sat by Pulse 98 Oximetry (%) 01/24/19 01/24/19 01/24/19 09:00 14:48 20:00 Temperature 98.0 F 98.1 F Pulse Rate 79 77 Respiratory 18 18 Rate Blood Pressure 116/74 114/76 O2 Sat by Pulse 97 95 Oximetry (%) 01/24/19 01/25/19 01/25/19 21:00 01:46 05:00 Temperature 97.7 F Pulse Rate 87 92 H Respiratory 18 18 Rate Blood Pressure 103/46 L O2 Sat by Pulse 97 98 Oximetry (%) 01/25/19 01/25/19 01/25/19 06:10 09:00 14:45 Temperature 98 F 97.6 F Pulse Rate 89 85 Respiratory 18 18 17 Rate Blood Pressure 122/75 127/80 O2 Sat by Pulse 98 Oximetry (%) 01/25/19 01/25/19 01/25/19 19:37 21:00 22:00 Temperature 97.7 F 98.5 F Pulse Rate 85 95 H Respiratory 18 18 18 Rate Blood Pressure 142/81 132/82 O2 Sat by Pulse 98 Oximetry (%) 01/26/19 05:54 Temperature 98 F Pulse Rate 105 H Respiratory 18 Rate Blood Pressure 146/91 O2 Sat by Pulse Oximetry (%) Laboratory Results - last 24 hr 01/25/19 01/25/19 01/25/19 12:35 16:30 22:14 POC Glucometer 164 185 166 01/26/19 05:20 POC Glucometer 132 Lungs clear Heart S1S2 irregular Abdomen soft , nt No CCE Laboratory Results - last 24 hr 01/25/19 01/25/19 01/25/19 12:35 16:30 22:14 POC Glucometer 164 185 166 01/26/19 05:20 POC Glucometer 132 Current Active Problems Problem Status Onset Abnormal LFTs (liver function tests) Acute CHF, acute on chronic Acute Chest pain Acute Chronic combined systolic and diastolic heart failure Acute Chronic respiratory failure with hypercapnia Acute Diarrhea Acute Elevated liver function tests Acute Headache Acute Weakness of both lower extremities Acute Plan If cannot urinate in 4 hrs darrian re-insert Fpley Restart Torsemide 20 mg BID Continue meds PT Problem List - Problems (1) Headache Code(s): R51 - HEADACHE Qualifiers: Headache type: unspecified (2) Acute kidney injury superimposed on CKD Code(s): N17.9 - ACUTE KIDNEY FAILURE, UNSPECIFIED; N18.9 - CHRONIC KIDNEY DISEASE, UNSPECIFIED (3) Atrial fibrillation Code(s): I48.91 - UNSPECIFIED ATRIAL FIBRILLATION (4) Chest pain Code(s): R07.9 - CHEST PAIN, UNSPECIFIED Qualifiers: Ischemic chest pain type: unspecified angina pectoris type (5) DM type 2 (diabetes mellitus, type 2) Code(s): E11.9 - TYPE 2 DIABETES MELLITUS WITHOUT COMPLICATIONS Qualifiers: Diabetes mellitus fpc insulin use: with long wall mining machine helper use Chronic kidney disease stage: stage 4 (severe) (6) Elevated liver function tests Code(s): R94.5 - ABNORMAL RESULTS OF LIVER FUNCTION STUDIES (7) Weakness of both lower extremities Code(s): R29.898 - OTH SYMPTOMS AND SIGNS INVOLVING THE MUSCULOSKELETAL SYSTEM
--- NOTE | 2019-01-26 09:19 | DS ---
Physical Examination Vital Signs: Vital Signs Temperature 98 F 01/26/19 05:54 Pulse Rate 105 H 01/26/19 05:54 Respiratory Rate 18 01/26/19 05:54 Blood Pressure 146/91 01/26/19 05:54 O2 Sat by Pulse Oximetry (%) 98 01/25/19 21:00 Constitutional: Yes: No Distress, Anxious Eyes: Yes: Conjunctiva Clear, EOM Intact HENT: Yes: Atraumatic, Normocephalic Neck: Yes: Supple, Trachea Midline Cardiovascular: Yes: Pulse Irregular Respiratory: Yes: Cough, On Nasal O2, SOB, SOB on Exertion. No: Rales, Stridor Gastrointestinal: Yes: Normal Bowel Sounds, Soft. No: Ascites ...Rectal Exam: Yes: Deferred Renal/: No: Anuria, CVA Tenderness - Left, CVA Tenderness - Right Breast(s): Yes: WNL Musculoskeletal: Yes: Muscle Weakness Extremities: No: Amputation, Calf Tenderness, Cold, Cool, Cyanosis Edema: No Peripheral Pulses WNL: No Integumentary: Yes: WNL Neurological: Yes: Alert, Oriented, Cran Nerves II-XII Intact, Tremors, Unsteady Gait, Weakness. No: Aphasia, Ataxia, Dysarthria, Facial Droop, Lethargy, Seizure, Unresponsive Psychiatric: Yes: Alert, Oriented. No: Agitated, Suicidal Ideation Labs: CBC, BMP 01/24/19 05:15 01/25/19 07:06 Discharge Summary Problems reviewed: Yes Reason For Visit: ACUTE KIDNEY INJURY,ACUTE ON CHRONIC HEART FAILURE Current Active Problems Abnormal LFTs (liver function tests) (Acute) CHF, acute on chronic (Acute) Chest pain (Acute) Chronic combined systolic and diastolic heart failure (Acute) Chronic respiratory failure with hypercapnia (Acute) Diarrhea (Acute) Elevated liver function tests (Acute) Headache (Acute) Weakness of both lower extremities (Acute) - Instructions - Home Medications Comprehensive Discharge Medication List: Ambulatory Orders Sitagliptin Phosphate [Januvia -] 25 mg PO DAILY@0700 #90 tab 10/14/14 Spironolactone [Aldactone -] 25 mg PO DAILY #30 tablet 03/31/17 Aspirin 81 mg PO DAILY 04/10/17 Insulin Glargine,Hum.rec.anlog [Lantus] 40 unit SQ DAILY 01/21/18 Metoprolol Succinate [Toprol Xl] 50 mg PO BID 02/20/18 Apixaban [Eliquis -] 2.5 mg PO BID 03/30/18 Colchicine [Mitigare] 0.6 mg PO BID 04/10/18 Torsemide 100 mg PO BID 05/19/18 Acetaminophen [Tylenol] 650 mg PO Q4H PRN 01/21/19
[2019-01-26] MEDS ORDERED: PT OWN MED DRAWER 7, Y5N ONE (10:18)
[2019-01-26] MEDS: ASPIRIN 81 MG CHEWABLE TABLETS PO SCH (10:20)
[2019-01-26] MEDS: SPIRONOLACTONE 25 MG TABLET (FP) PO SCH (10:20)
[2019-01-26] MEDS: APIXABAN 2.5 MG TABLET PO SCH (10:20)
[2019-01-26] MEDS: COLCHICINE 0.6 MG CAP PO SCH (10:20)
[2019-01-26] MEDS: AMOXICILLIN 250 MG CAPSULE PO SCH (10:20)
--- NOTE | 2019-01-26 12:01 | PN ---
Progress Note, Physician - Current Medication List Current Medications: Active Medications Amoxicillin (Amoxicillin -) 750 mg PO BID [facility] Stop: 01/28/19 23:59 Last Admin: 01/26/19 10:20 Dose: 750 mg Apixaban (Eliquis -) 2.5 mg PO BID [facility] Last Admin: 01/26/19 10:20 Dose: 2.5 mg Aspirin (Asa -) 81 mg PO DAILY [facility] Last Admin: 01/26/19 10:20 Dose: 81 mg Colchicine (Colcrys) 0.6 mg PO DAILY [facility] Last Admin: 01/26/19 10:20 Dose: 0.6 mg Insulin Aspart (Novolog Vial Sliding Scale -) 1 vial SQ ACHS [facility]; Protocol Last Admin: 01/26/19 07:44 Dose: Not Given Insulin Detemir (Levemir Vial) 30 units SQ ACBK [facility] Last Admin: 01/26/19 08:32 Dose: 30 unit Methyl Salicylate (Suraj-Valdez -) 1 applic TP BID PRN PRN Reason: itchiness Last Admin: 01/20/19 23:03 Dose: 1 applic Metoprolol Succinate (Toprol Xl -) 50 mg PO BID [facility] Last Admin: 01/26/19 10:20 Dose: 50 mg Nitroglycerin (Nitrostat -) 0.4 mg SL Q5M PRN PRN Reason: FOR CHEST PAIN Last Admin: 01/21/19 08:20 Dose: 0.4 mg Spironolactone (Aldactone -) 25 mg PO DAILY [facility] Last Admin: 01/26/19 10:20 Dose: 25 mg Tamsulosin HCl (Flomax -) 0.4 mg PO DAILY@0830 [facility] Last Admin: 01/26/19 08:32 Dose: 0.4 mg - Objective Vital Signs: Vital Signs Temperature 97.6 F 01/26/19 09:00 Pulse Rate 95 H 01/26/19 09:00 Respiratory Rate 20 01/26/19 09:00 Blood Pressure 134/85 01/26/19 09:00 O2 Sat by Pulse Oximetry (%) 100 01/26/19 09:00 Labs: CBC, BMP 01/24/19 05:15 01/25/19 07:06 INR, PTT INR 1.31 (0.83-1.09) H 01/20/19 16:30 Assessment/Plan IMP: Diarrhea, resolved CAD, ischemic CM with EF 35-40%, chronic systolic CHF AF Chronic ILD, pleural disease, PHTN CKD REC: 1. Supplimental O2 2. Hemodynamically stable at present. 3. Continue Eliquis, dose adjusted for age, weight and GFR 4. Continue usual CAD/CHF regimen. 5. DNR/DNI 6. Plans for discharge to rehab as per PMD
[2019-01-26] MEDS ORDERED: INSULIN (NOVOLOG) ASPART 100 UNITS/ML 10ML VIAL ONE ×2 (12:05→16:39)
[2019-01-26 18:54] VITALS: BP 119/73; PULSE 92; TEMP 97.3
[2019-01-26 21:09] LABS: HEP B CORE AB, TOT Negative (Negative)
== END 2019-01-26 18:56 | DRG 683 ==
LOC: JER 15:15 → JERBED 18:53 → J4S 20:42 → J7W 01-24 20:54
PROVIDERS: ADMIT Internal Medicine; ATTEND Internal Medicine
DX: N17.9 Acute kidney failure, unspecified (principal); Z68.41 Body mass index [BMI] 40.0-44.9, adult; J96.12 Chronic respiratory failure with hypercapnia; J98.11 Atelectasis; I50.42 Chronic combined systolic (congestive) and diastolic (congestive) heart failure; I13.0 Hypertensive heart and chronic kidney disease with heart failure and stage 1 through stage 4 chronic kidney disease, or unspecified chronic kidney disease; I25.10 Atherosclerotic heart disease of native coronary artery without angina pectoris; I48.91 Unspecified atrial fibrillation; J44.9 Chronic obstructive pulmonary disease, unspecified; E11.9 Type 2 diabetes mellitus without complications; F03.90 Unspecified dementia, unspecified severity, without behavioral disturbance, psychotic disturbance, mood disturbance, and anxiety; E66.9 Obesity, unspecified; R94.5 Abnormal results of liver function studies; R19.7 Diarrhea, unspecified; I25.5 Ischemic cardiomyopathy; I27.20 Pulmonary hypertension, unspecified; N18.4 Chronic kidney disease, stage 4 (severe); Z95.1 Presence of aortocoronary bypass graft; M10.9 Gout, unspecified; R07.9 Chest pain, unspecified; G43.909 Migraine, unspecified, not intractable, without status migrainosus; G25.81 Restless legs syndrome; E78.5 Hyperlipidemia, unspecified; E86.0 Dehydration; G47.33 Obstructive sleep apnea (adult) (pediatric)
CPT/HCPCS: 36415; 36600; 70450-TC; 71045-TC-FY; 72125-TC; 74176-TC; 76700-TC; 80053; 81003; 82375; 82550; 82553; 82607; 82803; 82962; 83050; 83540; 83550; 83605; 83880; 84443; 84484; 84550; 85025; 85610; 85651; 85730; 86140; 86593; 86704; 86706; 86707; 86708; 86709; 86803; 87045; 87046; 87086; 87186; 87205; 87324; 87340; 87449; 87899; 93005; 93010; 93880-TC; 94660; 97116-GP; 97162-GP; 99284-25

== ENCOUNTER 2019-02-03 15:30 | Emergency (ER) | payer OTHER ==
[2019-02-03 15:55] VITALS: BMI 33.6
--- NOTE | 2019-02-03 16:03 | PDOC ---
History of Present Illness - General Stated Complaint: SUICIDAL Time Seen by Provider: 02/03/19 15:53 - History of Present Illness Initial Comments: 02/03/19 16:06 88 yo M PMH CAD, ischemic cardiomyopathy with EF 35-40%, chronic systolic CHF, atrial fibrillation, chronic ILD, pleural disease, pHTN, CKD, presenting due to reported suicidal ideation. Notably, patient seen about 10 days ago with urinary retention, d/c'd to SNF with Dyer in place. Reportedly hates the Dyer and has been complaining to his nurses about it daily. Today, patient continued requesting his Dyer removed, so he reportedly told a nurse "If I don't see a doctor who can remove this Dyer, I'm going to kill myself". Patient denies ever actually having suicidal ideation or a plan, denies SI or HI. States that he was trying to express the urgency of his request. Has no other complaints except for not liking the Dyer. Specifically denies CP, SOB, abd pain, constipation/diarrhea, fevers/chills, urinary changes. Past History - Past Medical History Allergies/Adverse Reactions: Allergies Allergy/AdvReac Type Severity Reaction Status Date / Time No Known Allergies Allergy Verified 02/03/19 15:39 Home Medications: Ambulatory Orders Sitagliptin Phosphate [Januvia -] 25 mg PO DAILY@0700 #90 tab 10/14/14 Spironolactone [Aldactone -] 25 mg PO DAILY #30 tablet 03/31/17 Aspirin 81 mg PO DAILY 04/10/17 Insulin Glargine,Hum.rec.anlog [Lantus] 40 unit SQ DAILY 04/10/17 Metoprolol Succinate [Toprol Xl] 50 mg PO BID 02/20/18 Apixaban [Eliquis -] 2.5 mg PO BID 03/30/18 Acetaminophen [Tylenol .Regular Strength -] 650 mg PO Q8H PRN tablet 01/26/19 Colchicine [Colcrys] 0.6 mg PO DAILY cap 01/26/19 Insulin Sliding Scale [Novolog Vial Sliding Scale -] 1 vial SQ ACHS units 01/26 Methyl Salicylate/Menthol Oint [Analgesic [place] -] 1 applic TP BID PRN applic Nitroglycerin Sublingual [Nitrostat -] 0.4 mg SL Q5M PRN tab 01/26/19 Tamsulosin HCl [Flomax -] 0.4 mg PO DAILY@0830 cap.er.24h 01/26/19 Torsemide 20 mg PO BID 60 Days #120 tablet 01/26/19 Anemia: No Asthma: No Cancer: No Cardiac Disorders: Yes (Atrial Fib, CAD, CABG, aortic stenosis) CVA: No COPD: Yes (O2 Dep 4 L) CHF: Yes Dementia: Yes (mild) Diabetes: Yes GI Disorders: Yes (ulcerative colitis) Disorders: Yes (bph) HTN: Yes Hypercholesterolemia: Yes Liver Disease: No Seizures: No Thyroid Disease: No Lung CA: No (MESOTHELIOMA) - Surgical History Abdominal Surgery: No Appendectomy: No Cardiac Surgery: Yes (CABG) Cholecystectomy: No Lung Surgery: No Neurologic Surgery: No Orthopedic Surgery: No - Immunization History Immunization Up to Date: Yes - Psycho Social/Smoking Cessation Hx Smoking History: Former smoker Have you smoked in the past 12 months: No If you are a former smoker, when did you quit?: 66 years old Information on smoking cessation initiated: No Hx Alcohol Use: No Drug/Substance Use Hx: No Substance Use Type: None Hx Substance Use Treatment: No Review of Systems - Review of Systems Comments:: 02/03/19 17:23 GENERAL/CONSTITUTIONAL: No fever or chills. No weakness. HEAD, EYES, EARS, NOSE AND THROAT: No change in vision. No ear pain or discharge. No sore throat. CARDIOVASCULAR: No chest pain or shortness of breath. RESPIRATORY: No cough, wheezing, or hemoptysis. GASTROINTESTINAL: No nausea, vomiting, diarrhea or constipation. GENITOURINARY: No dysuria, frequency, or change in urination. MUSCULOSKELETAL: No joint or muscle swelling or pain. No neck or back pain. SKIN: No rash NEUROLOGIC: No headache, vertigo, loss of consciousness, or change in strength/ sensation. ENDOCRINE: No increased thirst. No abnormal weight change. HEMATOLOGIC/LYMPHATIC: No anemia, easy bleeding, or history of blood clots. ALLERGIC/IMMUNOLOGIC: No hives or skin allergy *Physical Exam - Vital Signs Last Vital Signs Temp Pulse Resp BP Pulse Ox 97.4 F L 73 18 90/50 L 94 L 02/03/19 15:39 02/03/19 15:39 02/03/19 15:39 02/03/19 15:39 02/03/19 15:39 - Physical Exam Comments: 02/03/19 17:23 Gen: obese, well-developed, well-nourished, NAD Neuro: AAOX4, CN II-XII intact, FTN intact, EOMI, PERRLA, 5/5 strength, SILT HEENT: atraumatic, normocephalic, dry mucous membranes Neck: trachea midline, supple CV: tachycardic in low 100s, regular rhythm, no murmurs, rubs, or gallops Pulm: CTA b/l, no wheezing Abd: soft, non-distended, non-tender : Dyer in place, yellow urine in bag MSK: full ROM, intact pulses Extr: no edema, no deformities Skin: warm, dry ED Treatment Course - LABORATORY CBC & Chemistry Diagram: 02/03/19 17:00 02/03/19 17:00 Medical Decision Making - Medical Decision Making 02/03/19 17:15 Patient hypotensive and hypothermic. Will workup for possible infection. - sepsis order - 500cc bolus considering history of CHF - reassess 02/03/19 17:19 EKG normal sinus at 87 bpm, LAD. 02/03/19 17:55 UA with leukocytes and bacteria but without nitrites, Na 132 and Cl 95, Cr 2 ( at baseline). 02/03/19 18:27 BP 100s/60s, afebrile, feeling better. Will dc back to group home. Discharge - Discharge Information Problems reviewed: Yes Clinical Impression/Diagnosis: Low blood pressure reading Condition: Improved - Follow up/Referral - Patient Discharge Instructions Patient Printed Discharge Instructions: DI for Hypotension Additional Instructions: You were seen with low blood pressure readings. Your labs were consistent with dehydration. Make sure that you drink plenty of fluids. Follow up with your primary care doctor within one week. Return to the ED if you develop worsening symptoms. - Post Discharge Activity
[2019-02-03 17:08] LABS: VENOUS PC02 54.9 mmHg (38-52); VENOUS PH 7.37 (7.31-7.41)
[2019-02-03 17:09] LABS: BASO % 1.3 % (0-2.0); EOS % 0.7 % (0-4.5); HEMATOCRIT 38.4 % (35.4-49); HEMOGLOBIN 12.8 GM/dL (11.7-16.9); LYMPH % 14.7 % (8-40); MCH 29.5 pg (25.7-33.7); MCHC 33.4 g/dl (32.0-35.9); MEAN CELL VOLUME 88.3 fl (80-96); MEAN PLT VOLUME 8.2 fl (7.5-11.1); MONO % 13.3 % (3.8-10.2); PLATELET COUNT 264 K/MM3 (134-434); RBC 4.35 M/mm3 (4.00-5.60); RDW 20.4 % (11.9-15.9); WHITE BLOOD COUNT 11.1 K/mm3 (4.0-10.0)
[2019-02-03 17:10] LABS: VENOUS PO2 < 49 mmHg (28-48)
[2019-02-03 17:11] LABS: EPI CELLS 1.7 /HPF (0-5/HPF); HYALINE CASTS 18 /lpf (0-8); URINE APPEARANCE CLOUDY; URINE BACTERIA 3094.5 /hpf (NEGATIVE); URINE BILIRUBIN NEGATIVE (NEGATIVE); URINE COLOR YELLOW; URINE GLUCOSE (UA) NEGATIVE (NEGATIVE); URINE KETONE NEGATIVE (NEGATIVE); URINE LEUK ESTERASE 3+ (NEGATIVE); URINE NITRITE NEGATIVE (NEGATIVE); URINE PROTEIN TRACE (NEGATIVE); URINE RBC 7 /hpf (0-4); URINE UROBILINOGEN 0.2 mg/dL (0.2-1.0); URINE WBC 141 /hpf (0-5)
[2019-02-03] MEDS ORDERED: LACTATED RINGERS SOLUTION 1000 ML INFUS.BAG IV ONE (17:17)
[2019-02-03 17:26] LABS: INR 1.22 (0.83-1.09); PROTHROMBIN TIME (PATIENT) 14.4 SEC (9.7-13.0)
[2019-02-03 17:28] LABS: ACTIVATED PTT 33.7 SECONDS (25.2-36.5)
[2019-02-03 17:52] LABS: BILIRUBIN,TOTAL 0.4 mg/dL (0.2-1); BLOOD UREA NITROGEN 51.8 mg/dL (7-18); CALCIUM 8.4 mg/dL (8.5-10.1); POTASSIUM 4.7 mmol/L (3.5-5.1); TOT PROT 6.2 g/dl (6.4-8.2)
[2019-02-03 18:20] VITALS: PULSE 68; TEMP 98.3
[2019-02-03] MEDS ORDERED: ACETAMINOPHEN INJECTION 100 ML IVPB ONE (18:21)
[2019-02-03 18:26] LABS: MAGNESIUM 2.1 mg/dL (1.8-2.4); N-TERMINAL BNP 1563.6 pg/ml (5-450); PHOSPHOROUS 4.6 mg/dL (2.5-4.9)
[2019-02-03 20:40] VITALS: BP 109/52
--- NOTE | 2019-02-04 01:59 | PDOC ---
Documentation entered by Librado Garza SCRIBE, acting as scribe for Fortino Gibson MD. Fortino Gibson MD: This documentation has been prepared by the Greg leal Daniel, SCRIBE, under my direction and personally reviewed by me in its entirety. I confirm that the documentation accurately reflects all work, treatment, procedures, and medical decision making performed by me. Attending Attestation - Resident Resident Name: RamiresAngela - ED Attending Attestation I have performed the following: I have examined & evaluated the patient, The case was reviewed & discussed with the resident, I agree w/resident's findings & plan, Exceptions are as noted - HPI HPI: 02/03/19 17:17 The patient is a year old with a past medical history of CAD, ischemic cardiomyopathy with EF 35-40%, chronic systolic CHF, afib, chronic ILD, pleural disease, pulmonary HTN, and CKD here today from [facility] for psych evaluation. The patient reports that he told the nurse at [facility] a few times that if his catheter wasnt removed he would kill himself. Patient states that he was joking , has no suicidal ideations, and no plan to hurt himself. Patient wants his catheter removed and also complains of lower extremity pain but states that this chronic. Patient denies any other new symptoms. Patient denies headache, lightheadedness. Denies fever, chills. Denies chest pain, shortness of breath. Denies nausea, vomiting, diarrhea, abdominal pain. Allergies: NKA - Physicial Exam PE: 02/03/19 17:17 Vitals: Triage vital signs reviewed General Appearance: No acute distress, well nourished, well developed Head: Atraumatic Chest Wall: Nontender Cardiac: Regular rate and rhythm, no murmurs, no rubs, no gallops Lungs: Clear to auscultation bilateral, good air movement bilaterally Abdomen: Soft, nondistended, normal bowel sounds, nontender to palpation Genitourinary: Rectal: Exam deferred Extremities: Full range of motion to all extremities, no cyanosis, clubbing, or edema Skin: Warm and dry, no rashes or lesions, no rash, no petechiae Psych: Normal mood, normal affect, No SI, HI, no plan no history of similar - Medical Decision Making 02/04/19 01:57 88 years old presents to the ED for evaluation after making a comment stating that someone does not take his Dyer out he might kill himself. Patient said this out of frustration of the cause discomfort of his Dyer and had no intention whatsoever of causing any harm to himself. Patient has no psychiatric history has never had any attempts to hurt himself in the past has no plan on hurting himself and simply said this out of frustration On arrival to the emergency department patient's blood pressure was noted to be a little bit low he was given a small bolus of fluid given his CHF and his blood pressure responded accordingly he feels well has no fever no abdominal pain there is no significantly developed white blood cell count he has an indwelling Dyer and his urinalysis appears colonized there is no evidence of active UTI Patient feels well is at bedside with family will return back to shelter Findings, the need for follow-up and strict return instructions discussed with patient.
--- NOTE | 2019-02-04 17:02 | EKG ---
Test Reason : Blood Pressure : / mmHG Vent. Rate : 067 BPM Atrial Rate : 073 BPM P-R Int : 000 ms QRS Dur : 110 ms QT Int : 402 ms P-R-T Axes : 000 -39 077 degrees QTc Int : 424 ms POOR DATA QUALITY, INTERPRETATION MAY BE ADVERSELY AFFECTED UNDETERMINED RHYTHM : Probable Atrial fibrillation LEFT AXIS DEVIATION RIGHT BUNDLE BRANCH BLOCK SEPTAL INFARCT , AGE UNDETERMINED ABNORMAL ECG Confirmed by PRITESH HANNAH MD ([id number]) on 02/04/2019 5:01:44 PM Referred By: Confirmed By:PRITESH HANNAH MD
== END 2019-02-03 20:25 ==
LOC: JER 15:30
DX: I95.9 Hypotension, unspecified (principal); I25.10 Atherosclerotic heart disease of native coronary artery without angina pectoris; I13.0 Hypertensive heart and chronic kidney disease with heart failure and stage 1 through stage 4 chronic kidney disease, or unspecified chronic kidney disease; N18.9 Chronic kidney disease, unspecified; I50.22 Chronic systolic (congestive) heart failure; Z95.1 Presence of aortocoronary bypass graft; I48.91 Unspecified atrial fibrillation; Z79.01 Long term (current) use of anticoagulants; I25.5 Ischemic cardiomyopathy; E11.22 Type 2 diabetes mellitus with diabetic chronic kidney disease; Z79.4 Long term (current) use of insulin; N40.0 Benign prostatic hyperplasia without lower urinary tract symptoms; C45.9 Mesothelioma, unspecified; I35.0 Nonrheumatic aortic (valve) stenosis; J44.9 Chronic obstructive pulmonary disease, unspecified; Z99.81 Dependence on supplemental oxygen; F03.90 Unspecified dementia, unspecified severity, without behavioral disturbance, psychotic disturbance, mood disturbance, and anxiety; I27.20 Pulmonary hypertension, unspecified; J84.9 Interstitial pulmonary disease, unspecified
CPT/HCPCS: 36415; 71045-TC-FY; 80053; 81003; 82550; 82803; 83605; 83735; 83880; 84100; 84484; 85025; 85610; 85730; 87040; 87086; 87186; 93005; 93010; 99284-25

== ENCOUNTER 2019-05-08 09:59 | Inpatient (IN) | payer OTHER ==
--- NOTE | 2019-05-08 10:20 | PDOC ---
History of Present Illness - General Chief Complaint: Blood Sugar Problem Stated Complaint: DIABETIC EMERGENCY Time Seen by Provider: 05/08/19 10:15 History Source: Patient, Family Exam Limitations: No Limitations - History of Present Illness Initial Comments: 05/08/19 10:25 88 yo male pmh CAD, ischemic cardiomyopathy with EF 35-40%, chronic systolic CHF , afib, chronic ILD (On 3L 24/7), pleural disease, pulmonary HTN, CKD and IDDM presents to the ED with elevated blood sugar. Son at the bedside states last week, PCP Pradip changed to new insulin last week, BS noted to be elevated over the past 2 days into mid 500s even after dosing subcutaneous insulin on sliding scale. Pt also states he has become more SOB over the last few days with a non productive cough. Denies F/C/N/V, CP, back pain, abdominal pain, changes in bowel or bladder habits, recent illness, sick contacts, calf pain, recent travel. Past History - Past Medical History Allergies/Adverse Reactions: Allergies Allergy/AdvReac Type Severity Reaction Status Date / Time No Known Allergies Allergy Verified 05/08/19 10:54 Home Medications: Ambulatory Orders Sitagliptin Phosphate [Januvia -] 25 mg PO DAILY@0700 #90 tab 10/14/14 Spironolactone [Aldactone -] 25 mg PO DAILY #30 tablet 03/31/17 Aspirin 81 mg PO DAILY 04/10/17 Insulin Glargine,Hum.rec.anlog [Lantus] 40 unit SQ DAILY 04/10/17 Metoprolol Succinate [Toprol Xl] 50 mg PO BID 02/20/18 Apixaban [Eliquis -] 2.5 mg PO BID 03/30/18 Acetaminophen [Tylenol .Regular Strength -] 650 mg PO Q8H PRN tablet 01/26/19 Colchicine [Colcrys] 0.6 mg PO DAILY cap 01/26/19 Insulin Sliding Scale [Novolog Vial Sliding Scale -] 1 vial SQ ACHS units 01/26 Methyl Salicylate/Menthol Oint [Analgesic [place] -] 1 applic TP BID PRN applic Nitroglycerin Sublingual [Nitrostat -] 0.4 mg SL Q5M PRN tab 01/26/19 Tamsulosin HCl [Flomax -] 0.4 mg PO DAILY@0830 cap.er.24h 01/26/19 Torsemide 20 mg PO BID 60 Days #120 tablet 01/26/19 Anemia: No Asthma: No Cancer: No Cardiac Disorders: Yes (Atrial Fib, CAD, CABG, aortic stenosis) CVA: No COPD: Yes (O2 Dep 4 L) CHF: Yes Dementia: Yes (mild) Diabetes: Yes GI Disorders: Yes (ulcerative colitis) Disorders: Yes (bph) HTN: Yes Hypercholesterolemia: Yes Liver Disease: No Seizures: No Thyroid Disease: No Lung CA: No (MESOTHELIOMA) - Surgical History Abdominal Surgery: No Appendectomy: No Cardiac Surgery: Yes (CABG) Cholecystectomy: No Lung Surgery: No Neurologic Surgery: No Orthopedic Surgery: No - Immunization History Immunization Up to Date: Yes - Psycho Social/Smoking Cessation Hx Smoking History: Former smoker Have you smoked in the past 12 months: No If you are a former smoker, when did you quit?: 66 years old Hx Alcohol Use: No Drug/Substance Use Hx: No Substance Use Type: None Hx Substance Use Treatment: No Review of Systems - Review of Systems Constitutional: No: Chills, Fever Respiratory: Yes: Cough, Shortness of Breath. No: Productive cough Cardiac (ROS): Yes: Edema. No: Chest Pain ABD/GI: No: Constipated, Diarrhea, Nausea, Vomiting : No: Burning, Dysuria, Frequency, Flank Pain Musculoskeletal: No: Back Pain Integumentary: No: Change in Color Neurological: No: Headache, Numbness, Paresthesia, Weakness Endocrine: Yes: Other (elevated blood sugar) *Physical Exam - Physical Exam General Appearance: Yes: Nourished, Appropriately Dressed HEENT: positive: EOMI, Normal ENT Inspection Neck: positive: Supple. negative: Carotid bruit Respiratory/Chest: positive: Crackles (bibasilar). negative: Rales, Rhonchi, Stridor, Wheezing Cardiovascular: positive: Regular Rhythm, Regular Rate, S1, S2, Edema ( bilateral 2+). negative: JVD, Murmur Vascular Pulses: Dorsalis-Pedis (R): 3+, Doralis-Pedis (L): 3+ Gastrointestinal/Abdominal: positive: Flat, Soft. negative: Protuberent, Distended, Guarding, Rebound, Tenderness ED Treatment Course - LABORATORY CBC & Chemistry Diagram: 05/08/19 11:00 05/08/19 11:00 Medical Decision Making - Medical Decision Making 05/08/19 11:48 88 yo male pmh CAD, ischemic cardiomyopathy with EF 35-40%, chronic systolic CHF , afib, chronic ILD (On 3L 11/10), pleural disease, pulmonary HTN, CKD and IDDM presents to the ED with elevated blood sugar. Son at the bedside states last week, PCP Pradip changed to new insulin last week, BS noted to be elevated over the past 2 days into mid 500s even after dosing subcutaneous insulin on sliding scale. Pt also states he has become more SOB over the last few days with a non productive cough. Denies F/C/N/V, CP, back pain, abdominal pain, changes in bowel or bladder habits, recent illness, sick contacts, calf pain, recent travel. vitals show elevated RR and systolic BP 101 DKA and Cardiac work up done increased work of breathing noted, duo nebs ordered and Bipap ordered. Noted bilateral 2+ pitting with bibasilar crackles finger stick 477. 05/08/19 12:27 Pt is tolerating Bipap well, sitting up in bed, alert and orientedX3 CXR neg for acute infiltrate or congestive changes pending CMP 05/08/19 12:54 Labs within pt baseline Discussed case with Dr. Moseley states he will see the pt in the ED to determine if admission is required 05/08/19 14:23 10 units SQ insulin as per PCP and agrees to admission to Med Surg Discharge - Discharge Information Problems reviewed: Yes Clinical Impression/Diagnosis: Interstitial lung disease Condition: Stable - Admission Yes - Follow up/Referral - Patient Discharge Instructions - Post Discharge Activity
[2019-05-08] MEDS ORDERED: ALBUTEROL SO4 2.5/IPRATROPIUM 0.5 INH SOL 3 ML VIAL.NEB. NEB ONE ×3 (10:21→16:53)
[2019-05-08 12:10] LABS: VENOUS PC02 56.1 mmHg (38-52); VENOUS PH 7.41 (7.31-7.41)
[2019-05-08 12:12] LABS: BASO % 0.9 % (0-2.0); HEMATOCRIT 36.4 % (35.4-49); HEMOGLOBIN 12.2 GM/dL (11.7-16.9); LYMPH % 10.5 % (8-40); MCH 30.4 pg (25.7-33.7); MCHC 33.4 g/dl (32.0-35.9); MEAN CELL VOLUME 90.9 fl (80-96); MEAN PLT VOLUME 9.2 fl (7.5-11.1); MONO % 12.1 % (3.8-10.2); NEUT % 75.5 % (42.8-82.8); PLATELET COUNT 185 K/MM3 (134-434); RBC 4.01 M/mm3 (4.00-5.60); RDW 17.8 % (11.9-15.9); WHITE BLOOD COUNT 10.3 K/mm3 (4.0-10.0)
[2019-05-08 12:13] LABS: VENOUS PO2 < 49 mmHg (28-48)
[2019-05-08 12:17] LABS: HYALINE CASTS 0 /lpf (0-8); PH,URINE 6.5 (5.0-8.0); URINE APPEARANCE CLEAR; URINE BACTERIA 89.1 /hpf (NEGATIVE); URINE BILIRUBIN NEGATIVE (NEGATIVE); URINE COLOR YELLOW; URINE GLUCOSE (UA) 3+ (NEGATIVE); URINE KETONE NEGATIVE (NEGATIVE); URINE LEUK ESTERASE NEGATIVE (NEGATIVE); URINE NITRITE NEGATIVE (NEGATIVE); URINE PROTEIN NEGATIVE (NEGATIVE); URINE RBC 3 /hpf (0-4); URINE UROBILINOGEN 0.2 mg/dL (0.2-1.0); URINE WBC 3 /hpf (0-5)
--- NOTE | 2019-05-08 12:20 | PDOC ---
Documentation entered by Eunice Marin SCRIBE, acting as scribe for Mj Walton MD. Mj Walton MD: This documentation has been prepared by the Tomas leal Xhesika, SCRIBE, under my direction and personally reviewed by me in its entirety. I confirm that the documentation accurately reflects all work, treatment, procedures, and medical decision making performed by me. Attending Attestation - Resident Resident Name: Jared Levin - ED Attending Attestation I have performed the following: I have examined & evaluated the patient, The case was reviewed & discussed with the resident, I agree w/resident's findings & plan, Exceptions are as noted - HPI HPI: 05/08/19 11:15 The patient is a 88 year old male with a past medical history of CAD, ischemic cardiomyopathy with EF 35-40%, chronic systolic CHF, afib, chronic ILD, pleural disease, pulmonary HTN, and CKD who represents to the ED for elevated blood sugar (540 at home). The patient reports 1 week of weakness and SOB. The patient states he started new insulin through Dr. Moseley last week. The patient denies chest pain, headache and dizziness. Denies fever, chills, cough, nausea, vomiting, diarrhea and constipation. Denies dysuria, frequency, urgency and hematuria. Allergies: NKDA - Physicial Exam PE: 05/08/19 11:16 GENERAL: The patient is awake, alert, and fully oriented, moderate respiratry distress HEAD: Normocephalic, atraumatic. EYES: extraocular movements intact, sclera anicteric, conjunctiva clear. ENT: Normal voice, Moist mucous membranes. NECK: Normal range of motion, supple without lymphadenopathy, JVD, or masses. LUNGS: b/l rales, moderate respiratory distress HEART: Regular rate and rhythm, normal S1 and S2 without murmur, rub or gallop. ABDOMEN: Soft, nontender, normoactive bowel sounds. No guarding, no rebound. No masses. EXTREMITIES: Normal range of motion, trace edema. No clubbing or cyanosis. No cords, erythema, or tenderness. NEUROLOGICAL: No facial asymmetry, Normal speech, moving all 4 extremitie sponaneously and symmetrically PSYCH: Normal mood, normal affect. SKIN: Warm, Dry, normal turgor, no rashes or lesions noted. - Critical Care Time Total Critical Care Time: 35 Critical Care Statement: The care of this patient involved high complexity decision making to prevent further life threatening deterioration of the patient 's condition and/or to evaluate & treat vital organ system(s) failure or risk of failure. - Medical Decision Making 05/08/19 11:29 88y M hx of afib, interstitial lung disease, copd, htn, dm, presents with elevated BGM (500+), generalized weakness and sOB. pt hsa been given insulin without significan improvement. Pt has been having some cough Differential for the patient's symptoms includes DKA, pneumonia, influenza, metabolic derangements, ACS, CHF We will obtain blood work, blood gas, chest x-ray, EKG, UA Patient was placed on BiPAP for respiratory support and aide work of breathing Will reassess 05/08/19 13:43 pt doing well on Bipap The patient's lab work was reviewed as well as the patient's chest x-ray Case was discussed with Dr. Moseley who was here evalauting the patient. agrees with our management and will admit for further management of his shortness of breath Heart Score/ECG Review - ECG Impressions Comment:: 05/08/19 12:19 Twelve-lead EKG was performed and reviewed by me. Irregularly rate regular, no consistent P waves Nonspecific interventricular delay Impression atrial fibrillation
[2019-05-08 12:26] LABS: INR 1.14 (0.83-1.09); PROTHROMBIN TIME (PATIENT) 13.5 SEC (9.7-13.0)
[2019-05-08 12:29] LABS: ACTIVATED PTT 31.5 SECONDS (25.2-36.5)
[2019-05-08 12:37] LABS: ALBUMIN 2.9 g/dl (3.4-5.0); BILIRUBIN,TOTAL 0.4 mg/dL (0.2-1); CALCIUM 8.1 mg/dL (8.5-10.1); CREATININE 1.9 mg/dL (0.55-1.3); POTASSIUM 3.8 mmol/L (3.5-5.1); TOT PROT 5.7 g/dl (6.4-8.2)
[2019-05-08] MEDS ORDERED: NITROGLYCERIN SUBLINGUAL 1/150 0.4 MG TAB SL PRN (13:26)
--- NOTE | 2019-05-08 13:31 | HP ---
Admitting History and Physical - Admission Chief Complaint: 88 y.o M came to ER due to uncontrolled BGM in 500 range. Shannan in the ER developed SOB and was placed on BIPAP. Multiple admitions to [facility] for respiratory failure, ILD. 1 month ago was hospitalized at [facility] ICU with intubation. History of Present Illness: Cronic hypercarbic respiratory failure. at night bipap 15/8 Persistent 6.7cm left basilar atelectasis/consolidation. CABG ASHD. DM type on Levemir/Januvia. CRI/ckd 4. 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 Previous Thoracentesis in the past-neg for malignancy. JUAN-at nights using CPAP. Chronic A.Fib. Combined CHF. Gout. Gouty arthritis. Previous rectal surgery for abscess, fistula at [facility]. History Source: Patient, Medical Record - Past Medical History CLAIM INVESTIGATOR: Yes: Dementia (mild), Other (Mild cognitive impairment) Cardiovascular: Yes: AFIB, Aortic Stenosis, CAD, HTN, Hyperlipdemia Pulmonary: Yes: COPD, O2 Dependent, Sleep Apnea, Other (Extensive pleural disease. 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 History of Recent Travel: No Home Medications - Allergies Allergies/Adverse Reactions: Allergies Allergy/AdvReac Type Severity Reaction Status Date / Time No Known Allergies Allergy Verified 05/08/19 10:54 - Home Medications Home Medications: Ambulatory Orders Sitagliptin Phosphate [Januvia -] 25 mg PO DAILY@0700 #90 tab 10/14/14 Spironolactone [Aldactone -] 25 mg PO DAILY #30 tablet 03/31/17 Aspirin 81 mg PO DAILY 04/10/17 Insulin Glargine,Hum.rec.anlog [Lantus] 40 unit SQ DAILY 04/10/17 Metoprolol Succinate [Toprol Xl] 50 mg PO BID 02/20/18 Apixaban [Eliquis -] 2.5 mg PO BID 03/30/18 Acetaminophen [Tylenol .Regular Strength -] 650 mg PO Q8H PRN tablet 01/26/19 Colchicine [Colcrys] 0.6 mg PO DAILY cap 01/26/19 Insulin Sliding Scale [Novolog Vial Sliding Scale -] 1 vial SQ ACHS units 01/26 Methyl Salicylate/Menthol Oint [Analgesic [place] -] 1 applic TP BID PRN applic Nitroglycerin Sublingual [Nitrostat -] 0.4 mg SL Q5M PRN tab 01/26/19 Tamsulosin HCl [Flomax -] 0.4 mg PO DAILY@0830 cap.er.24h 01/26/19 Torsemide 20 mg PO BID 60 Days #120 tablet 01/26/19 Family Medical History Family History: Unremarkable Review of Systems - Review of Systems Constitutional: reports: Weakness. denies: Chills, Diaphoresis, Fever, Lethargy HENT: reports: Other (Dry mouth) Neck: denies: Lumps, Pain on Movement Cardiovascular: reports: Shortness of Breath. denies: Chest Pain, Edema Respiratory: reports: Cough, Exercise Intolerance, SOB, SOB on Exertion. denies : Hemoptysis, Orthopnea, Wheezing Gastrointestinal: reports: Constipation. denies: Abdominal Pain, Bloating, Diarrhea, Dysphagia, Melena, Nausea, Rectal Bleeding, Vomiting, Vomiting Blood Genitourinary: reports: No Symptoms Breasts: reports: No Symptoms Reported Neurological: denies: Change in Speech Endocrine: reports: Increased Hunger Hematology/Lymphatic: reports: No Symptoms Psychiatric: reports: No Symptoms Physical Examination Vital Signs: Vital Signs Temperature 97.4 F L 05/08/19 10:05 Pulse Rate 89 05/08/19 10:05 Respiratory Rate 25 H 05/08/19 10:05 Blood Pressure 101/59 L 05/08/19 10:05 O2 Sat by Pulse Oximetry (%) 99 05/08/19 12:07 Constitutional: Yes: Moderate Distress (ON BIPAP) Respiratory: Yes: Regular, Diminished (B/L) Gastrointestinal: Yes: Normal Bowel Sounds, Soft, Abdomen, Obese ...Rectal Exam: Yes: Deferred Renal/: No: Anuria, Bladder Distention, CVA Tenderness - Left, CVA Tenderness - Right Breast(s): Yes: WNL Musculoskeletal: Yes: WNL. No: Joint Stiffness Extremities: No: Amputation, Calf Tenderness Edema: LLE: Trace, RLE: Trace Peripheral Pulses WNL: No Integumentary: Yes: WNL Neurological: Yes: Alert, Oriented. No: Aphasia, Confusion, Dysarthria ...Motor Strength: WNL Psychiatric: Yes: WNL Labs: CBC, BMP 05/08/19 11:00 05/08/19 11:00 Laboratory Results - last 24 hr 05/08/19 05/08/19 05/08/19 10:41 11:00 11:00 WBC 10.3 H RBC 4.01 Hgb 12.2 Hct 36.4 MCV 90.9 MCH 30.4 MCHC 33.4 RDW 17.8 H Plt Count 185 D MPV 9.2 D Absolute Neuts (auto) 7.7 Neutrophils % 75.5 Lymphocytes % 10.5 D Monocytes % 12.1 H Eosinophils % 1.0 Basophils % 0.9 Nucleated RBC % 0 PT with INR INR PTT (Actin FS) VBG pH POC VBG pCO2 POC VBG pO2 VBG HCO3 VBG O2 Sat ([place]) VBG Base Excess Sodium 134 L Potassium 3.8 Chloride 96 L Carbon Dioxide 30 Anion Gap 8 BUN 47.0 H Creatinine 1.9 H Est GFR (CKD-EPI)AfAm 35.94 Est GFR (CKD-EPI)NonAf 31.01 POC Glucometer 477 Random Glucose 440 H* Calcium 8.1 L Total Bilirubin 0.4 AST 45 H ALT 105 H Alkaline Phosphatase 129 H Creatine Kinase 18 L Troponin I 0.02 B-Natriuretic Peptide 774.0 H Total Protein 5.7 L Albumin 2.9 L Beta-Hydroxybutyrate 1.5 Urine Color Urine Appearance Urine pH Ur Specific [place] Urine Protein Urine Glucose (UA) Urine Ketones Urine Blood Urine Nitrite Urine Bilirubin Urine Urobilinogen Ur Leukocyte Esterase Urine WBC (Auto) Urine RBC (Auto) Urine Casts (Auto) U Epithel Cells (Auto) Urine Bacteria (Auto) 05/08/19 05/08/19 05/08/19 11:00 11:00 11:00 WBC RBC Hgb Hct MCV MCH MCHC RDW Plt Count MPV Absolute Neuts (auto) Neutrophils % Lymphocytes % Monocytes % Eosinophils % Basophils % Nucleated RBC % PT with INR 13.50 H INR 1.14 H PTT (Actin FS) 31.5 VBG pH 7.41 POC VBG pCO2 56.1 H POC VBG pO2 < 49 H VBG HCO3 35.1 H VBG O2 Sat ([place]) 63.6 L VBG Base Excess 8.9 H Sodium Potassium Chloride Carbon Dioxide Anion Gap BUN Creatinine Est GFR (CKD-EPI)AfAm Est GFR (CKD-EPI)NonAf POC Glucometer Random Glucose Calcium Total Bilirubin AST ALT Alkaline Phosphatase Creatine Kinase Troponin I B-Natriuretic Peptide Total Protein Albumin Beta-Hydroxybutyrate Urine Color Yellow Urine Appearance Clear Urine pH 6.5 D Ur Specific [place] 1.016 Urine Protein Negative Urine Glucose (UA) 3+ H Urine Ketones Negative Urine Blood Trace Urine Nitrite Negative Urine Bilirubin Negative Urine Urobilinogen 0.2 Ur Leukocyte Esterase Negative Urine WBC (Auto) 3 Urine RBC (Auto) 3 Urine Casts (Auto) 0 U Epithel Cells (Auto) 2.0 Urine Bacteria (Auto) 89.1 Imaging - Results Chest X-ray: Report Reviewed Problem List - Problems (1) Acute respiratory failure with hypoxia Assessment/Plan: BIPAP mask 02/11 Nebs RTC duonebs Avoid steroids Problems reviewed: Yes Code(s): J96.01 - ACUTE RESPIRATORY FAILURE WITH HYPOXIA (2) Atrial fibrillation Assessment/Plan: Now on Eliquis 2.5 BID adjusted for CKD Code(s): I48.91 - UNSPECIFIED ATRIAL FIBRILLATION Qualifiers: Atrial fibrillation type: longstanding persistent Qualified Code(s): I48.11 - Longstanding persistent atrial fibrillation (3) DM type 2 (diabetes mellitus, type 2) Assessment/Plan: Recent use of steroids, poor adherence to the diet Doubt UTI -was recently treated with Abx-Augmentin for Acute bronchitis. Continue Insulin Diabetic, low salt diet. 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
[2019-05-08] MEDS ORDERED: BISACODYL 5 MG TABLET.DR (FP) PO PRN (13:34)
--- NOTE | 2019-05-08 13:52 | CON.CARD ---
Consult Consult Specialty:: Cardiology Referred by:: Dr. Moseley Reason for Consultation:: Dyspnea - History of Present Illness Chief Complaint: SOB History of Present Illness: 88 M h/o afib, HTN, HLD, CAD s/p CABG p/w glucose > 500. 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 Chronic PEARSON, really not changed. Denies CP, palps, edema, PND or orthopnea. No recent syncope. 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 History of Recent Travel: No Home Medications - Allergies Allergies/Adverse Reactions: Allergies Allergy/AdvReac Type Severity Reaction Status Date / Time No Known Allergies Allergy Verified 05/08/19 10:54 - Home Medications Home Medications: Ambulatory Orders Sitagliptin Phosphate [Januvia -] 25 mg PO DAILY@0700 #90 tab 10/14/14 Spironolactone [Aldactone -] 25 mg PO DAILY #30 tablet 03/31/17 Aspirin 81 mg PO DAILY 04/10/17 Insulin Glargine,Hum.rec.anlog [Lantus] 40 unit SQ DAILY 04/10/17 Metoprolol Succinate [Toprol Xl] 50 mg PO BID 02/20/18 Apixaban [Eliquis -] 2.5 mg PO BID 03/30/18 Acetaminophen [Tylenol .Regular Strength -] 650 mg PO Q8H PRN tablet 01/26/19 Colchicine [Colcrys] 0.6 mg PO DAILY cap 01/26/19 Insulin Sliding Scale [Novolog Vial Sliding Scale -] 1 vial SQ ACHS units 01/26 Methyl Salicylate/Menthol Oint [Analgesic [place] -] 1 applic TP BID PRN applic Nitroglycerin Sublingual [Nitrostat -] 0.4 mg SL Q5M PRN tab 01/26/19 Tamsulosin HCl [Flomax -] 0.4 mg PO DAILY@0830 cap.er.24h 01/26/19 Torsemide 20 mg PO BID 60 Days #120 tablet 01/26/19 Family Medical History Family History: Unremarkable (not pertinent to this presentation) Review of Systems - Review of Systems Constitutional: reports: Weakness Cardiovascular: reports: Shortness of Breath Respiratory: reports: SOB, SOB on Exertion Gastrointestinal: denies: No Symptoms, Abdominal Pain, Bloating, Constipation, Diarrhea, Dysphagia, Indigestion, Melena, Nausea, Rectal Bleeding, Vomiting, Vomiting Blood, Other Genitourinary: denies: No Symptoms, Burning, Discharge, Dysuria, Flank Pain, Frequency, Hematuria, Incontinence, Lesions, Menses, Pain, Testicular Mass, Testicular Pain, Testicular Swelling, Urgency, Vaginal Bleeding, Other Breasts: denies: No Symptoms Reported, See HPI, Breast Implants, Discharge from Nipple, Lumps, Pain, Skin Changes, Other Musculoskeletal: denies: No Symptoms, Back Pain, Crepitus, Decreased ROM, Extremity Pain, Joint Pain, Joint Swelling, Muscle Pain, Muscle Cramps, Muscle Weakness, Other Integumentary: denies: No Symptoms, Blister, Bruising, Change in Color, Eczema, Erythema, Incision, Lesions, Lump, Pallor, Pruritis, Rash, Wound, Other Neurological: denies: No Symptoms, Change in LOC, Change in Speech, Confusion, Dizziness, Headache, Incoordination, Numbness, Parasthesia, Pre-Existing Deficit , Seizure, Syncope, Tremors, Unsteady Gait, Weakness, Other Endocrine: denies: No Symptoms, Excessive Sweating, Flushing, Increased Hunger, Increased Thirst, Intolerance to Cold, Intolerance to Heat, Unexplained Weight Gain, Unexplained Weight Loss, Other Hematology/Lymphatic: denies: No Symptoms, Easily Bruised, Excessive Bleeding, Swollen Glands, Other Psychiatric: denies: No Symptoms, Altered Sleep Pattern, Anxiety, Depression, Hallucinations, Panic, Paranoia, Suicidal, Other - Risk Factors Known Risk Factors: Yes: Diabetes Mellitus, Other (Known CAD) Vital Signs: Vital Signs Temperature 97.4 F L 05/08/19 10:05 Pulse Rate 89 05/08/19 10:05 Respiratory Rate 25 H 05/08/19 10:05 Blood Pressure 101/59 L 05/08/19 10:05 O2 Sat by Pulse Oximetry (%) 99 05/08/19 12:07 Constitutional: Yes: No Distress, Calm Eyes: Yes: Conjunctiva Clear Respiratory: Yes: Rhonchi (no rales or active wheezing.) Gastrointestinal: Yes: Soft, Abdomen, Obese Cardiovascular: Yes: Pulse Irregular JVD: No Carotid Bruit: No Heart Sounds: Yes: S1, S2 (irreg) Edema: No Peripheral Pulses WNL: Yes Neurological: Yes: Alert, Oriented ...Motor Strength: WNL - Other Data Labs, Other Data: CBC, BMP 05/08/19 11:00 05/08/19 11:00 INR, PTT INR 1.14 (0.83-1.09) H 05/08/19 11:00 Troponin, BNP 05/08/19 11:00 Troponin I 0.02 B-Natriuretic Peptide 774.0 H Troponin, BNP 05/08/19 11:00 Troponin I 0.02 B-Natriuretic Peptide 774.0 H Microbiology 01/24/19 07:30 Urine For Antigen Detection Legionella Antigen - Final 01/24/19 07:30 Urine For Antigen Detection Streptococcus pneumoniae Antigen (M - Final Laboratory Tests 01/24/19 01/25/19 05/08/19 05:15 07:06 11:00 WBC 5.0 10.3 H Hgb 14.1 12.2 Plt Count 185 185 D INR VBG pH POC VBG pCO2 POC VBG pO2 Sodium 138 Potassium 4.6 BUN Creatinine 1.7 H Random Glucose AST ALT Alkaline Phosphatase Troponin I B-Natriuretic Peptide Beta-Hydroxybutyrate 05/08/19 05/08/19 05/08/19 11:00 11:00 11:00 WBC Hgb Plt Count INR 1.14 H VBG pH 7.41 POC VBG pCO2 56.1 H POC VBG pO2 < 49 H Sodium 134 L Potassium 3.8 BUN 47.0 H Creatinine 1.9 H Random Glucose 440 H* AST 45 H ALT 105 H Alkaline Phosphatase 129 H Troponin I 0.02 B-Natriuretic Peptide 774.0 H Beta-Hydroxybutyrate 1.5 Reviewed personally: AF, cannot r/o old inferior AL age indeterminate. NSST changes. Echo: Report Reviewed Prior Cardiac Procedures: CABG Imaging - Results Chest X-ray: Report Reviewed (Left pleural thickening.) EKG: Image Reviewed Assessment/Plan DATA: Echo here 2019: EF 45-50%, dilated LA, MAC, Moderate to severe PHTN with RVSP = 40-50mmHg, @ least moderate . IMP: 1. Uncontrolled DM, hyperglycemia 2.Chronic sytolic CHF, EF 45% 3.Chronic respiratory failure 4.Asbestos lung dz/ ILD, PHTN 5.JUAN 6. Chronic AF 7.CAD s/p CABG 8. PHTN 9. CKD with baseline creatinine 2.0 10. REC: 1. Uncontrolled DM: as per PMD 2. Chronic systolic CHF: euvolemic at this time. Continue home regimen, BNP much lower than on previous admissions. Not on BETTY/ARB due to CKD. Continue Torsemide and Aldactone. 3. 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 4. Chronic AF: rate controlled, continue home Toprol and Eliquis adjusted for age and renal fx 5. CAD s/p CABG: no active ischemic sx, ECG stable. Continue Metoprolol. On low dose ASA as well, can consider d/c as he is on Eliquis. Added benefits of ASA are marginal when added to NOAC, especially in this age group. Consider low dose statin. 6. PHTN : is secondary to JUAN/ILD/CHF, supportive measures with O2, NIPPV, diuretics. 7. CKD:at baseline, monitor renal function. 8: Aortic stenosis: mild by echo last year; yearly echo
--- NOTE | 2019-05-08 15:52 | CON.PULM ---
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 Asbestos Exposure), DM, BPH, and Gout. Apparent admission to [facility] about 1 month ago and was intubated ( details are not clear). Admitted via the ER due to worsening dyspnea on exertion and dry mouth (does have chronic PEARSON) and hyperglycemia, blood sugar > 500. No recent travel history or sick contacts. No fever or chills. No hemoptysis or night sweats. Was placed on NIPPV support due to acute respiratory distress. 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 bronchiectasis.). No: Asthma, Cancer, Pulmonary Embolus Gastrointestinal: Yes: Ulcerative Colitis (surgery), Other Renal/: Yes: Renal Inusuff, BPH Musculoskeletal: Yes: Osteoarthritis, Other (Neck/shoulder pain) Endocrine: Yes: Diabetes Mellitus - Past Surgical History Past Surgical History: Yes: CABG, Nephrectomy - Alcohol/Substance Use Hx Alcohol Use: No History of Substance Use: reports: None - Smoking History Smoking history: Former smoker Have you smoked in the past 12 months: No If you are a former smoker, when did you quit?: 66 years old - Social History Usual Living Arrangement: With Spouse ADL: Family Assistance 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 History of Recent Travel: No Home Medications - Allergies Allergies/Adverse Reactions: Allergies Allergy/AdvReac Type Severity Reaction Status Date / Time No Known Allergies Allergy Verified 05/08/19 10:54 - Home Medications Home Medications: Ambulatory Orders Sitagliptin Phosphate [Januvia -] 25 mg PO DAILY@0700 #90 tab 10/14/14 Spironolactone [Aldactone -] 25 mg PO DAILY #30 tablet 01/11/18 Aspirin 81 mg PO DAILY 04/10/17 Insulin Glargine,Hum.rec.anlog [Lantus] 40 unit SQ DAILY 04/10/17 Metoprolol Succinate [Toprol Xl] 50 mg PO BID 02/20/18 Apixaban [Eliquis -] 2.5 mg PO BID 03/30/18 Acetaminophen [Tylenol .Regular Strength -] 650 mg PO Q8H PRN tablet 01/26/19 Colchicine [Colcrys] 0.6 mg PO DAILY cap 01/26/19 Insulin Sliding Scale [Novolog Vial Sliding Scale -] 1 vial SQ ACHS units 01/26 Methyl Salicylate/Menthol Oint [Analgesic [place] -] 1 applic TP BID PRN applic Nitroglycerin Sublingual [Nitrostat -] 0.4 mg SL Q5M PRN tab 01/26/19 Tamsulosin HCl [Flomax -] 0.4 mg PO DAILY@0830 cap.er.24h 01/26/19 Torsemide 20 mg PO BID 60 Days #120 tablet 01/26/19 Review of Systems - Review of Systems Constitutional: reports: Malaise. denies: Chills, Fever, Night Sweats Eyes: reports: No Symptoms HENT: reports: No Symptoms Neck: reports: No Symptoms Cardiovascular: reports: Shortness of Breath. denies: Chest Pain, Palpitations Respiratory: reports: Cough, Snoring, SOB, SOB on Exertion. denies: Hemoptysis , Orthopnea, PND, Wheezing Gastrointestinal: reports: No Symptoms Genitourinary: reports: No Symptoms Breasts: reports: No Symptoms Reported Musculoskeletal: reports: No Symptoms Integumentary: reports: No Symptoms Neurological: reports: No Symptoms Endocrine: reports: No Symptoms Hematology/Lymphatic: reports: No Symptoms Psychiatric: reports: No Symptoms Physical Exam Vital Sings: Vital Signs Temperature 97.4 F L 05/08/19 10:05 Pulse Rate 89 05/08/19 10:05 Respiratory Rate 25 H 05/08/19 10:05 Blood Pressure 101/59 L 05/08/19 10:05 O2 Sat by Pulse Oximetry (%) 99 05/08/19 12:07 Constitutional: Yes: No Distress, Obese Eyes: Yes: Conjunctiva Clear, EOM Intact HENT: Yes: Atraumatic, Normocephalic Neck: Yes: Supple, Trachea Midline Cardiovascular: Yes: Pulse Irregular Respiratory: Yes: Cough, Diminished, On BiPap, Rhonchi, SOB on Exertion, Tachypnea. No: Rales, SOB, Stridor, Wheezes ...Inspection: Yes: WNL ...Clubbing: No Gastrointestinal: Yes: Normal Bowel Sounds, Soft, Abdomen, Obese Renal/: Yes: WNL Musculoskeletal: Yes: WNL Extremities: Yes: WNL Edema: No Peripheral Pulses WNL: Yes Integumentary: Yes: WNL Neurological: Yes: WNL, Alert, Oriented ...Motor Strength: WNL Psychiatric: Yes: WNL, Alert, Oriented Labs: CBC, BMP 05/08/19 11:00 05/08/19 11:00 Imaging - Results Chest X-ray: Report Reviewed, Image Reviewed Problem List - Problems (1) Interstitial lung disease Code(s): J84.9 - INTERSTITIAL PULMONARY DISEASE, UNSPECIFIED (2) ASHD (arteriosclerotic heart disease) Code(s): I25.10 - ATHSCL HEART DISEASE OF [place] CORONARY ARTERY W/O ANG PCTRS (3) Asbestos pleurisy Code(s): J94.8 - OTHER SPECIFIED PLEURAL CONDITIONS (4) Atrial fibrillation Code(s): I48.91 - UNSPECIFIED ATRIAL FIBRILLATION Qualifiers: Atrial fibrillation type: longstanding persistent Qualified Code(s): I48.11 - Longstanding persistent atrial fibrillation (5) Bronchiectasis with (acute) exacerbation Code(s): J47.1 - BRONCHIECTASIS WITH (ACUTE) EXACERBATION (6) CAD (coronary artery disease) Code(s): I25.10 - ATHSCL HEART DISEASE OF [place] CORONARY ARTERY W/O ANG PCTRS Qualifiers: Coronary Disease-Associated Artery/Lesion type: bypass graft, autologous artery Associated angina: without angina Qualified Code(s): I25.810 - Atherosclerosis of coronary artery bypass graft(s) without angina pectoris (7) CKD (chronic kidney disease) Code(s): N18.9 - CHRONIC KIDNEY DISEASE, UNSPECIFIED Qualifiers: Chronic kidney disease stage: stage 3 (moderate) Qualified Code(s): N18.3 - Chronic kidney disease, stage 3 (moderate) (8) COPD (chronic obstructive pulmonary disease) Code(s): J44.9 - CHRONIC OBSTRUCTIVE PULMONARY DISEASE, UNSPECIFIED (9) COPD (chronic obstructive pulmonary disease) with acute bronchitis Code(s): J44.0 - CHR OBSTRUCTIVE PULMON DISEASE WITH (ACUTE) LOWER RESP INFCT; J20.9 - ACUTE BRONCHITIS, UNSPECIFIED (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 Code(s): I50.42 - CHRONIC COMBINED SYSTOLIC AND DIASTOLIC HRT FAIL (11) Chronic respiratory failure with hypercapnia Code(s): J96.12 - CHRONIC RESPIRATORY FAILURE WITH HYPERCAPNIA (12) DM type 2 (diabetes mellitus, type 2) Code(s): E11.9 - TYPE 2 DIABETES MELLITUS WITHOUT COMPLICATIONS Qualifiers: Diabetes mellitus snf insulin use: with termite control technician use Chronic kidney disease stage: stage 4 (severe) (13) HTN (hypertension) Code(s): I10 - ESSENTIAL (PRIMARY) HYPERTENSION (14) Hyperlipidemia Code(s): E78.5 - HYPERLIPIDEMIA, UNSPECIFIED (15) Pleural effusion Code(s): J90 - PLEURAL EFFUSION, NOT ELSEWHERE CLASSIFIED (16) Pulmonary hypertension Code(s): I27.20 - PULMONARY HYPERTENSION, UNSPECIFIED (17) S/P CABG (coronary artery bypass graft) Code(s): Z95.1 - PRESENCE OF AORTOCORONARY BYPASS GRAFT Assessment/Plan BD TX NC O2 as tolerated NIPPV support QHS and PRN Would monitor off ABX Short course of Prednisone No smoking was counseled Adelia Demadex BID Will follow Thank you Dr Martinez
[2019-05-08] MEDS ORDERED: INSULIN REGULAR HUMAN 100 UNITS/ML *VIAL SQ ONE (16:16)
[2019-05-08] MEDS: INSULIN SLIDING SCALE (NOVOLOG) 1 VIAL SQ SCH ×2 (16:23→21:41)
--- NOTE | 2019-05-08 16:23 | EKG ---
Test Reason : Blood Pressure : / mmHG Vent. Rate : 092 BPM Atrial Rate : 133 BPM P-R Int : 000 ms QRS Dur : 124 ms QT Int : 374 ms P-R-T Axes : 000 -27 061 degrees QTc Int : 462 ms ATRIAL FIBRILLATION NON-SPECIFIC INTRA-VENTRICULAR CONDUCTION DELAY NONSPECIFIC ST ABNORMALITY ABNORMAL ECG Confirmed by MD ELADIO, KELLEN ([id number]) on 05/08/2019 4:23:26 PM Referred By: Confirmed By:KELLEN HENDRICKS MD
[2019-05-08] MEDS: ALBUTEROL SO4 2.5/IPRATROPIUM 0.5 INH SOL 3 ML VIAL.NEB. NEB SCH ×2 (17:00→21:50)
[2019-05-08] MEDS: APIXABAN 2.5 MG TABLET PO SCH (21:40)
[2019-05-08] MEDS: POLYETHYLENE GLYCOL 3350 119 GM BTL PO SCH (21:40)
[2019-05-08] MEDS: guaiFENesin/D-M SUGAR-FREE/ACLHOL-FREE 118 ML BOTTLE PO PRN (21:43)
[2019-05-08] MEDS ORDERED: TORSEMIDE 100 MG TABLET PO SCH (22:00)
[2019-05-08] MEDS: INSULIN (LEVEMIR) 100 UNITS/ML UNITS SQ SCH (22:02)
[2019-05-09] MEDS: INSULIN (LEVEMIR) 100 UNITS/ML UNITS SQ SCH ×2 (06:53→21:14)
[2019-05-09] MEDS: guaiFENesin/D-M SUGAR-FREE/ACLHOL-FREE 118 ML BOTTLE PO PRN ×3 (06:54→21:12)
[2019-05-09] MEDS: INSULIN SLIDING SCALE (NOVOLOG) 1 VIAL SQ SCH ×4 (06:54→21:11)
[2019-05-09 07:52] LABS: ALBUMIN 3.2 g/dl (3.4-5.0); BILIRUBIN,TOTAL 0.6 mg/dL (0.2-1); BLOOD UREA NITROGEN 54.7 mg/dL (7-18); CALCIUM 9.2 mg/dL (8.5-10.1); CREATININE 2.1 mg/dL (0.55-1.3); MAGNESIUM 2.1 mg/dL (1.8-2.4); PHOSPHOROUS 4.2 mg/dL (2.5-4.9); POTASSIUM 3.8 mmol/L (3.5-5.1); TOT PROT 6.7 g/dl (6.4-8.2)
[2019-05-09] MEDS: ALBUTEROL SO4 2.5/IPRATROPIUM 0.5 INH SOL 3 ML VIAL.NEB. NEB SCH ×4 (08:00→20:00)
--- NOTE | 2019-05-09 08:43 | PN ---
Progress Note, Physician Chief Complaint: BGM improved. C/o cough, SOB, cough. Cardiology and pulmonary consult appreciated. History of Present Illness: Cronic hypercarbic respiratory failure. at night bipap 15/8 Persistent 6.7cm left basilar atelectasis/consolidation. CABG ASHD. DM type on Levemir/Januvia. CRI/ckd 4. 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 Previous Thoracentesis in the past-neg for malignancy. JUAN-at nights using CPAP. Chronic A.Fib. Combined CHF. Gout. Gouty arthritis. Previous rectal surgery for abscess, fistula at [facility]. - Current Medication List Current Medications: Active Medications Albuterol/Ipratropium (Duoneb -) 1 amp NEB RQID [facility] Last Admin: 05/08/19 21:50 Dose: 1 amp Apixaban (Eliquis -) 2.5 mg PO BID [facility] Last Admin: 05/08/19 21:40 Dose: 2.5 mg Aspirin (Asa -) 81 mg PO DAILY [facility] Bisacodyl (Dulcolax -) 5 mg PO DAILY PRN PRN Reason: CONSTIPATION Colchicine (Colcrys) 0.6 mg PO DAILY [facility] Guaifenesin (Diabetic Tussin Dm -) 10 ml PO Q6H PRN PRN Reason: COUGH Last Admin: 05/09/19 06:54 Dose: 10 ml Ampicillin Sodium/Sulbactam (Sodium 1.5 gm/ Sodium Chloride) 100 mls @ 200 mls/ hr IVPB Q8H-IV [facility] Insulin Aspart (Novolog Vial Sliding Scale -) 1 vial SQ ACHS [facility]; Protocol Last Admin: 05/09/19 06:54 Dose: 2 units Insulin Detemir (Levemir Vial) 40 units SQ BID@0700,2200 [facility] Last Admin: 05/09/19 06:53 Dose: 40 units Metoprolol Succinate (Toprol Xl -) 50 mg PO BID [facility] Last Admin: 05/08/19 21:41 Dose: 50 mg Nitroglycerin (Nitrostat -) 0.4 mg SL Q5M PRN PRN Reason: FOR CHEST PAIN Polyethylene Glycol (Miralax (For Daily Use) -) 17 gm PO BID [facility] Last Admin: 05/08/19 21:40 Dose: 17 grams Sitagliptin Phosphate (Januvia -) 25 mg PO DAILY@0700 [facility] Last Admin: 05/09/19 06:53 Dose: 25 mg Spironolactone (Aldactone -) 25 mg PO DAILY [facility] Tamsulosin HCl (Flomax -) 0.4 mg PO DAILY@0830 [facility] Torsemide (Demadex -) 100 mg PO BIDLASIX [facility] - Objective Vital Signs: Vital Signs Temperature 98.1 F 05/09/19 00:22 Pulse Rate 91 H 05/09/19 05:39 Respiratory Rate 18 05/09/19 05:39 Blood Pressure 92/58 L 05/09/19 05:39 O2 Sat by Pulse Oximetry (%) 95 05/09/19 05:39 Constitutional: Yes: Moderate Distress Eyes: Yes: Conjunctiva Clear, EOM Intact HENT: Yes: Atraumatic, Normocephalic Neck: Yes: Supple, Trachea Midline Cardiovascular: Yes: Pulse Irregular, S1, S2 Respiratory: Yes: Diminished, Rhonchi, SOB Gastrointestinal: Yes: Normal Bowel Sounds, Soft, Abdomen, Obese ...Rectal Exam: Yes: Deferred Genitourinary: No: Anuria, Bladder Distention, CVA Tenderness - Left, CVA Tenderness - Right Breast(s): Yes: WNL Extremities: No: Amputation, Calf Tenderness Edema: No Integumentary: Yes: WNL Neurological: Yes: Alert, Oriented. No: Aphasia, Dysarthria ...Motor Strength: WNL Psychiatric: Yes: WNL Labs: CBC, BMP 05/09/19 06:54 INR, PTT INR 1.14 (0.83-1.09) H 05/08/19 11:00 Problem List - Problems (1) Acute respiratory failure with hypoxia Assessment/Plan: BIPAP mask 02/11 Nebs RTC duonebs Avoid steroids Code(s): J96.01 - ACUTE RESPIRATORY FAILURE WITH HYPOXIA (2) Atrial fibrillation Assessment/Plan: Now on Eliquis 2.5 BID adjusted for CKD Code(s): I48.91 - UNSPECIFIED ATRIAL FIBRILLATION Qualifiers: Atrial fibrillation type: longstanding persistent Qualified Code(s): I48.11 - Longstanding persistent atrial fibrillation (3) DM type 2 (diabetes mellitus, type 2) Assessment/Plan: Recent use of steroids, poor adherence to the diet Doubt UTI -was recently treated with Abx-Augmentin for Acute bronchitis. Continue Insulin Diabetic, low salt diet. 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
[2019-05-09] MEDS: TAMSULOSIN HCL 0.4 MG CAP PO SCH (09:00)
[2019-05-09 09:58] LABS: BASO % 0.3 % (0-2.0); EOS % 1.7 % (0-4.5); HEMATOCRIT 40.2 % (35.4-49); HEMOGLOBIN 13.6 GM/dL (11.7-16.9); LYMPH % 15.2 % (8-40); MCH 30.8 pg (25.7-33.7); MCHC 33.9 g/dl (32.0-35.9); MEAN CELL VOLUME 90.9 fl (80-96); MEAN PLT VOLUME 9.9 fl (7.5-11.1); MONO % 11.1 % (3.8-10.2); NEUT % 71.7 % (42.8-82.8); PLATELET COUNT 183 K/MM3 (134-434); RBC 4.43 M/mm3 (4.00-5.60); RDW 19.1 % (11.9-15.9); WHITE BLOOD COUNT 10.5 K/mm3 (4.0-10.0)
[2019-05-09] MEDS ORDERED: [UNRECOGNIZED DRUG - OTHER] SQ SCH (10:00)
[2019-05-09] MEDS ORDERED: INSULIN GLARGINE HUM REC ANLOG 40 UNIT SQ SCH (10:00)
[2019-05-09] MEDS: AMPICILLIN NA/SULBACTAM NA 1.5 GM in SODIUM CHLORIDE 100 ML IVPB SCH ×2 (10:00→19:19)
[2019-05-09] MEDS: ASPIRIN 81 MG CHEWABLE TABLETS PO SCH (10:45)
[2019-05-09] MEDS: APIXABAN 2.5 MG TABLET PO SCH ×2 (10:45→21:11)
[2019-05-09] MEDS: COLCHICINE 0.6 MG CAP PO SCH (10:45)
--- NOTE | 2019-05-09 10:58 | PN ---
Progress Note (short form) - Note Progress Note: s: still coughing and sob. no chest pain, palps, dizziness Current Medications Albuterol/Ipratropium (Duoneb -) 1 amp NEB RQID [facility] Last Admin: 05/09/19 08:00 Dose: 1 amp Apixaban (Eliquis -) 2.5 mg PO BID [facility] Last Admin: 05/09/19 10:45 Dose: 2.5 mg Aspirin (Asa -) 81 mg PO DAILY [facility] Last Admin: 05/09/19 10:45 Dose: 81 mg Bisacodyl (Dulcolax -) 5 mg PO DAILY PRN PRN Reason: CONSTIPATION Colchicine (Colcrys) 0.6 mg PO DAILY [facility] Last Admin: 05/09/19 10:45 Dose: 0.6 mg Guaifenesin (Diabetic Tussin Dm -) 10 ml PO Q6H PRN PRN Reason: COUGH Last Admin: 05/09/19 06:54 Dose: 10 ml Ampicillin Sodium/Sulbactam (Sodium 1.5 gm/ Sodium Chloride) 100 mls @ 200 mls/ hr IVPB Q8H-IV [facility] Insulin Aspart (Novolog Vial Sliding Scale -) [facility] Last Admin: 05/09/19 06:54 Dose: 2 units Insulin Detemir (Levemir Vial) 40 units SQ BID@0700,2200 [facility] Last Admin: 05/09/19 06:53 Dose: 40 units Metoprolol Succinate (Toprol Xl -) 50 mg PO BID [facility] Last Admin: 05/08/19 21:41 Dose: 50 mg Nitroglycerin (Nitrostat -) 0.4 mg SL Q5M PRN PRN Reason: FOR CHEST PAIN Polyethylene Glycol (Miralax (For Daily Use) -) 17 gm PO BID [facility] Last Admin: 05/08/19 21:40 Dose: 17 grams Sitagliptin Phosphate (Januvia -) 25 mg PO DAILY@0700 [facility] Last Admin: 05/09/19 06:53 Dose: 25 mg Spironolactone (Aldactone -) 25 mg PO DAILY [facility] Tamsulosin HCl (Flomax -) 0.4 mg PO DAILY@0830 [facility] Last Admin: 05/09/19 09:00 Dose: 0.4 mg Torsemide (Demadex -) 100 mg PO BIDLASIX [facility] Vital Signs Period Temp Pulse Resp BP Sys/Junior Pulse Ox Last 24 Hr 97.5 F-98.1 F 68-94 14-26 92-133/50-87 95-99 Constitutional: Yes: No Distress, Calm Eyes: Yes: Conjunctiva Clear Respiratory: Yes: Rhonchi (no rales or active wheezing.) Gastrointestinal: Yes: Soft, Abdomen, Obese Cardiovascular: Yes: Pulse Irregular JVD: No Carotid Bruit: No Heart Sounds: Yes: S1, S2 (irreg) Edema: No Peripheral Pulses WNL: Yes Neurological: Yes: Alert, Oriented no jaundice, diaphoresis not agitated Reviewed personally: AF, cannot r/o old inferior HI age indeterminate. NSST changes. Echo: Report Reviewed Prior Cardiac Procedures: CABG Imaging - Results Chest X-ray: Report Reviewed (Left pleural thickening.) EKG: Image Reviewed Assessment/Plan DATA: Echo here 2019: EF 45-50%, dilated LA, MAC, Moderate to severe PHTN with RVSP = 40-50mmHg, @ least moderate . IMP: 1. Uncontrolled DM, hyperglycemia 2.Chronic sytolic CHF, EF 45% 3.Chronic respiratory failure 4.Asbestos lung dz/ ILD, PHTN 5.JUAN 6. Chronic AF 7.CAD s/p CABG 8. PHTN 9. CKD with baseline creatinine 2.0 10. REC: 1. Uncontrolled DM: as per PMD 2. Chronic systolic CHF: euvolemic at this time. Continue home regimen, BNP much lower than on previous admissions. Not on BETTY/ARB due to CKD. Continue Torsemide and Aldactone. 3. 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 4. Chronic AF: rate controlled, continue home Toprol and Eliquis adjusted for age and renal fx 5. CAD s/p CABG: no active ischemic sx, ECG stable. Continue Metoprolol. On low dose ASA as well, can consider d/c as he is on Eliquis. Added benefits of ASA are marginal when added to NOAC, especially in this age group. Consider low dose statin. 6. PHTN : is secondary to JUAN/ILD/CHF, supportive measures with O2, NIPPV, diuretics. 7. CKD:at baseline, monitor renal function. 8: Aortic stenosis: mild by echo last year; yearly echo
[2019-05-09] MEDS: SPIRONOLACTONE 25 MG TABLET (FP) PO SCH (11:00)
[2019-05-09] MEDS: POLYETHYLENE GLYCOL 3350 119 GM BTL PO SCH ×2 (11:00→21:11)
--- NOTE | 2019-05-09 12:29 | ECHO ---
Version: 1 Name: LONI VICKERS Exam: Adult Echocardiogram Study Date: 05/09/2019, 10:56 AM Age: 88 Years MMode/2D Measurements & Calculations IVSd: 1.03 cm LVIDs: 4.6 cm LVIDd: 5.9 cm LVPWd: 1.36 cm LAV (MOD-bp): 104.0 ml ACS: 1.36 cm Ao root diam: 3.2 cm LVOT diam: 2.01 cm LA dimension: 4.7 cm Doppler Measurements & Calculations MV E max salo: 106.1 cm/sec MVA(VTI): 2.17 cm MV A max salo: 35.0 cm/sec MV V2 max: 109.3 cm/sec MV mean P.46 mmHg MV max P.8 mmHg MV E/A: 3.0 Med E/e': 13.4 Lat E/e': 11.8 Med Peak E' Salo: 7.9 cm/sec Lat Peak E' Salo: 9.0 cm/sec Ao max P.3 mmHg DIONE(I,D): 1.28 cm Ao mean P.4 mmHg LV V1 mean: 45.2 cm/sec Ao V2 max: 187.0 cm/sec LV V1 mean P.94 mmHg PI end-d salo: 97.7 cm/sec TR max salo: 274.6 cm/sec TR max P.4 mmHg Procedure Images were not obtained from all of the standard acoustic windows due to the limited scope of the s tudeb. Left Ventricle The left ventricle is grossly normal size. Left ventricular systolic function is grossly normal. Eje ction Fraction = 55%. The transmitral spectral Doppler flow pattern is suggestive of impaired LV relaxatio n. Right Ventricle The right ventricle is not well visualized. Atria The left atrium is moderately dilated. Right atrium not well visualized. Mitral Valve There is moderate mitral annular calcification. There is mild mitral regurgitation. Tricuspid Valve The tricuspid valve is not well visualized. There is moderate tricuspid regurgitation. Aortic Valve The aortic valve is not well visualized. Moderate valvular aortic stenosis. Pulmonic Valve The pulmonic valve is not well visualized. Great Vessels The aortic root is normal size. Normal aortic arch, descending and ascending aorta. Pericardium/Pleura There is no pericardial effusion. Tech Comments TDS. Morbidly obese. Coughed throughout entire study and would not let me press. Summary Statements Images were not obtained from all of the standard acoustic windows due to the limited scope of the s tudy. The left ventricle is grossly normal size. Left ventricular systolic function is grossly normal. Ejection Fraction = 55%. The transmitral spectral Doppler flow pattern is suggestive of impaired LV relaxation. The right ventricle is not well visualized. The left atrium is moderately dilated. Right atrium not well visualized. There is moderate mitral annular calcification. There is mild mitral regurgitation. The tricuspid valve is not well visualized. There is moderate tricuspid regurgitation. The aortic valve is not well visualized. Moderate valvular aortic stenosis. The pulmonic valve is not well visualized. The aortic root is normal size. Normal aortic arch, descending and ascending aorta There is no pericardial effusion. Marc Aragong 05/09/2019, 12:29 PM Ordering Physician: Pritesh Hannah Referring Physician: PRITESH HANNAH Performed By: Bibi Orlando
[2019-05-09] MEDS: TORSEMIDE 100 MG TABLET PO SCH (14:14)
--- NOTE | 2019-05-09 14:27 | PN ---
Progress Note (short form) - Note Progress Note: PULMONARY Still with shortness of breath, chest tightness and cough. No fevers recorded. Vital Signs Period Temp Pulse Resp BP Sys/Junior Pulse Ox Last 24 Hr 97.5 F-98.1 F 68-93 18-26 90-105/50-87 92-100 Gen: mildly tachypneic with speaking Heart: RRR Lung: scattered rhonchi Abd: soft, nontender Ext: no edema CBC, BMP 05/09/19 06:54 05/09/19 06:54 Active Medications Albuterol/Ipratropium (Duoneb -) 1 amp NEB RQID [facility] Last Admin: 05/09/19 12:07 Dose: Not Given Apixaban (Eliquis -) 2.5 mg PO BID [facility] Last Admin: 05/09/19 10:45 Dose: 2.5 mg Aspirin (Asa -) 81 mg PO DAILY [facility] Last Admin: 05/09/19 10:45 Dose: 81 mg Bisacodyl (Dulcolax -) 5 mg PO DAILY PRN PRN Reason: CONSTIPATION Colchicine (Colcrys) 0.6 mg PO DAILY [facility] Last Admin: 05/09/19 10:45 Dose: 0.6 mg Guaifenesin (Diabetic Tussin Dm -) 10 ml PO Q6H PRN PRN Reason: COUGH Last Admin: 05/09/19 14:19 Dose: 10 ml Ampicillin Sodium/Sulbactam (Sodium 1.5 gm/ Sodium Chloride) 100 mls @ 200 mls/ hr IVPB Q8H-IV [facility] Last Admin: 05/09/19 10:00 Dose: 200 mls/hr Insulin Aspart (Novolog Vial Sliding Scale -) 1 vial SQ ACHS [facility]; Protocol Last Admin: 05/09/19 12:19 Dose: Not Given Insulin Detemir (Levemir Vial) 40 units SQ BID@0700,2200 [facility] Last Admin: 05/09/19 06:53 Dose: 40 units Metoprolol Succinate (Toprol Xl -) 50 mg PO BID [facility] Last Admin: 05/09/19 11:15 Dose: 50 mg Nitroglycerin (Nitrostat -) 0.4 mg SL Q5M PRN PRN Reason: FOR CHEST PAIN Polyethylene Glycol (Miralax (For Daily Use) -) 17 gm PO BID [facility] Last Admin: 05/09/19 11:00 Dose: 17 grams Sitagliptin Phosphate (Januvia -) 25 mg PO DAILY@0700 [facility] Last Admin: 05/09/19 06:53 Dose: 25 mg Spironolactone (Aldactone -) 25 mg PO DAILY [facility] Last Admin: 05/09/19 11:00 Dose: 25 mg Tamsulosin HCl (Flomax -) 0.4 mg PO DAILY@0830 [facility] Last Admin: 05/09/19 09:00 Dose: 0.4 mg Torsemide (Demadex -) 100 mg PO BIDLASIX [facility] Last Admin: 05/09/19 14:14 Dose: Not Given A/P Chronic Hypoxic and Hypercapneic Respiratory Failure Interstitial Lung Disease Restrictive Lung Disease Pulmonary HTN LV Systolic Dysfunction Atrial Fibrillation CAD s/p CABG CKD Aortic Stenosis DM - on antibiotics - inhaled bronchodilators - O2 to keep SpO2 >90% - BiPAP at night and PRN during day - consider short course of steroids if no improvement - rate control - continue anticoagulation - continue torsemide, aldactone
[2019-05-09] MEDS ORDERED: PT OWN MED DRAWER 7, Y5N ONE (19:54)
[2019-05-10] MEDS: AMPICILLIN NA/SULBACTAM NA 1.5 GM in SODIUM CHLORIDE 100 ML IVPB SCH ×3 (01:28→17:30)
[2019-05-10] MEDS ORDERED: PT OWN MED DRAWER 7, Y5N ONE ×6 (05:55→16:20)
[2019-05-10] MEDS: INSULIN SLIDING SCALE (NOVOLOG) 1 VIAL SQ SCH ×4 (06:35→22:33)
[2019-05-10] MEDS: TORSEMIDE 100 MG TABLET PO SCH ×2 (06:35→14:15)
[2019-05-10] MEDS: INSULIN (LEVEMIR) 100 UNITS/ML UNITS SQ SCH ×2 (06:35→22:26)
[2019-05-10] MEDS ORDERED: INSULIN (NOVOLOG) ASPART 100 UNITS/ML 10ML VIAL ONE (06:53)
[2019-05-10] MEDS ORDERED: INSULIN (LEVEMIR) 100 UNITS/ML UNITS SQ ONE (06:54)
[2019-05-10] MEDS: ALBUTEROL SO4 2.5/IPRATROPIUM 0.5 INH SOL 3 ML VIAL.NEB. NEB SCH ×4 (07:45→20:15)
--- NOTE | 2019-05-10 07:54 | PN ---
Progress Note, Physician Chief Complaint: Feels better today, less SOB, awake, alert on 2 L O2NC BGM improved History of Present Illness: Cronic hypercarbic respiratory failure. at night bipap 15/8 Persistent 6.7cm left basilar atelectasis/consolidation. CABG ASHD. DM type on Levemir/Januvia. CRI/ckd 4. 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 Previous Thoracentesis in the past-neg for malignancy. JUAN-at nights using CPAP. Chronic A.Fib. Combined CHF. Gout. Gouty arthritis. Previous rectal surgery for abscess, fistula at [facility]. - Current Medication List Current Medications: Active Medications Albuterol/Ipratropium (Duoneb -) 1 amp NEB RQID [facility] Last Admin: 05/09/19 20:00 Dose: 1 amp Apixaban (Eliquis -) 2.5 mg PO BID [facility] Last Admin: 05/09/19 21:11 Dose: 2.5 mg Aspirin (Asa -) 81 mg PO DAILY [facility] Last Admin: 05/09/19 10:45 Dose: 81 mg Bisacodyl (Dulcolax -) 5 mg PO DAILY PRN PRN Reason: CONSTIPATION Colchicine (Colcrys) 0.6 mg PO DAILY [facility] Last Admin: 05/09/19 10:45 Dose: 0.6 mg Guaifenesin (Diabetic Tussin Dm -) 10 ml PO Q6H PRN PRN Reason: COUGH Last Admin: 05/09/19 21:12 Dose: 10 ml Ampicillin Sodium/Sulbactam (Sodium 1.5 gm/ Sodium Chloride) 100 mls @ 200 mls/ hr IVPB Q8H-IV [facility] Last Admin: 05/10/19 01:28 Dose: 200 mls/hr Insulin Aspart (Novolog Vial Sliding Scale -) 1 vial SQ ACHS [facility]; Protocol Last Admin: 05/10/19 06:35 Dose: Not Given Insulin Detemir (Levemir Vial) 40 units SQ BID@0700,2200 [facility] Last Admin: 05/10/19 06:35 Dose: Not Given Metoprolol Succinate (Toprol Xl -) 50 mg PO BID [facility] Last Admin: 05/09/19 21:11 Dose: 50 mg Nitroglycerin (Nitrostat -) 0.4 mg SL Q5M PRN PRN Reason: FOR CHEST PAIN Polyethylene Glycol (Miralax (For Daily Use) -) 17 gm PO BID [facility] Last Admin: 05/09/19 21:11 Dose: 17 grams Sitagliptin Phosphate (Januvia -) 25 mg PO DAILY@0700 [facility] Last Admin: 05/10/19 06:34 Dose: 25 mg Spironolactone (Aldactone -) 25 mg PO DAILY [facility] Last Admin: 05/09/19 11:00 Dose: 25 mg Tamsulosin HCl (Flomax -) 0.4 mg PO DAILY@0830 [facility] Last Admin: 05/09/19 09:00 Dose: 0.4 mg Torsemide (Demadex -) 100 mg PO BIDLASIX [facility] Last Admin: 05/10/19 06:35 Dose: 100 mg - Objective Vital Signs: Vital Signs Temperature 97.6 F 05/10/19 06:37 Pulse Rate 67 05/10/19 06:37 Respiratory Rate 22 H 05/10/19 06:37 Blood Pressure 142/70 05/10/19 06:37 O2 Sat by Pulse Oximetry (%) 98 05/09/19 22:00 Constitutional: Yes: Anxious, Mild Distress Eyes: Yes: Conjunctiva Clear, EOM Intact HENT: Yes: Atraumatic, Normocephalic Neck: Yes: Supple, Trachea Midline Cardiovascular: Yes: Pulse Irregular Respiratory: Yes: Regular, Cough, Diminished, On Nasal O2 Gastrointestinal: Yes: Normal Bowel Sounds, Soft, Abdomen, Obese ...Rectal Exam: Yes: Deferred Genitourinary: No: Anuria, Bladder Distention, CVA Tenderness - Left, CVA Tenderness - Right Breast(s): Yes: WNL Musculoskeletal: No: Joint Swelling Extremities: No: Amputation, Calf Tenderness, Cold Edema: No Peripheral Pulses WNL: No Integumentary: Yes: WNL Neurological: Yes: Alert, Oriented, Tremors, Other (TORRES MARTINEZ). No: Aphasia, Confusion, Dysarthria, Seizure ...Motor Strength: WNL Psychiatric: Yes: WNL Labs: CBC, BMP 05/09/19 06:54 05/09/19 06:54 INR, PTT INR 1.14 (0.83-1.09) H 05/08/19 11:00 Problem List - Problems (1) Acute respiratory failure with hypoxia Assessment/Plan: BIPAP mask 02/11 Nebs RTC duonebs Avoid steroids Code(s): J96.01 - ACUTE RESPIRATORY FAILURE WITH HYPOXIA (2) Atrial fibrillation Assessment/Plan: Now on Eliquis 2.5 BID adjusted for CKD Code(s): I48.91 - UNSPECIFIED ATRIAL FIBRILLATION Qualifiers: Atrial fibrillation type: longstanding persistent Qualified Code(s): I48.11 - Longstanding persistent atrial fibrillation (3) DM type 2 (diabetes mellitus, type 2) Assessment/Plan: Continue BGM, Continue Levemir and Novolog. Januvia 25 mg/day. Code(s): E11.9 - TYPE 2 DIABETES MELLITUS WITHOUT COMPLICATIONS Qualifiers: Diabetes mellitus alf insulin use: with alf use Chronic kidney disease stage: stage 4 (severe) (4) Diabetes 1.5, managed as type 2 Code(s): E13.9 - OTHER SPECIFIED DIABETES MELLITUS WITHOUT COMPLICATIONS (5) Bronchiectasis with (acute) exacerbation Assessment/Plan: IV abx Code(s): J47.1 - BRONCHIECTASIS WITH (ACUTE) EXACERBATION
--- NOTE | 2019-05-10 09:07 | PN ---
Progress Note (short form) - Note Progress Note: Clinically looks and feels better today. Still with cough. No CP. Intake & Output 05/07/19 05/08/19 05/09/19 05/10/19 23:59 23:59 23:59 23:59 Intake Total 250 815 700 Output Total 400 500 Balance -150 315 700 Weight 215 lb 221 lb 11.2 oz 216 lb 9 oz Last Vital Signs Temp Pulse Resp BP Pulse Ox 97.6 F 67 22 H 142/70 98 05/10/19 06:37 05/10/19 06:37 05/10/19 06:37 05/10/19 06:37 05/09/19 22:00 Active Medications Albuterol/Ipratropium (Duoneb -) 1 amp NEB RQID [facility] Last Admin: 05/09/19 20:00 Dose: 1 amp Apixaban (Eliquis -) 2.5 mg PO BID [facility] Last Admin: 05/09/19 21:11 Dose: 2.5 mg Aspirin (Asa -) 81 mg PO DAILY [facility] Last Admin: 05/09/19 10:45 Dose: 81 mg Bisacodyl (Dulcolax -) 5 mg PO DAILY PRN PRN Reason: CONSTIPATION Colchicine (Colcrys) 0.6 mg PO DAILY [facility] Last Admin: 05/09/19 10:45 Dose: 0.6 mg Guaifenesin (Diabetic Tussin Dm -) 10 ml PO Q6H PRN PRN Reason: COUGH Last Admin: 05/09/19 21:12 Dose: 10 ml Ampicillin Sodium/Sulbactam (Sodium 1.5 gm/ Sodium Chloride) 100 mls @ 200 mls/ hr IVPB Q8H-IV [facility] Insulin Aspart (Novolog Vial Sliding Scale -) 1 vial SQ ACHS [facility]; Protocol Last Admin: 05/10/19 06:35 Dose: Not Given Insulin Detemir (Levemir Vial) 40 units SQ BID@0700,2200 [facility] Last Admin: 05/10/19 06:35 Dose: Not Given Metoprolol Succinate (Toprol Xl -) 50 mg PO BID [facility] Last Admin: 05/09/19 21:11 Dose: 50 mg Nitroglycerin (Nitrostat -) 0.4 mg SL Q5M PRN PRN Reason: FOR CHEST PAIN Polyethylene Glycol (Miralax (For Daily Use) -) 17 gm PO BID [facility] Last Admin: 05/09/19 21:11 Dose: 17 grams Sitagliptin Phosphate (Januvia -) 25 mg PO DAILY@0700 [facility] Last Admin: 05/10/19 06:34 Dose: 25 mg Spironolactone (Aldactone -) 25 mg PO DAILY [facility] Last Admin: 05/09/19 11:00 Dose: 25 mg Tamsulosin HCl (Flomax -) 0.4 mg PO DAILY@0830 [facility] Last Admin: 05/09/19 09:00 Dose: 0.4 mg Torsemide (Demadex -) 100 mg PO BIDLASIX [facility] Last Admin: 05/10/19 06:35 Dose: 100 mg Gen: Awake and alert, NAD on NC O2 Heart: RRR Lung: scattered rhonchi Abd: soft, nontender Ext: no edema Laboratory Results - last 24 hr 05/09/19 05/09/19 05/09/19 06:54 12:18 17:38 WBC 10.5 H RBC 4.43 Hgb 13.6 Hct 40.2 MCV 90.9 MCH 30.8 MCHC 33.9 RDW 19.1 H Plt Count 183 MPV 9.9 Absolute Neuts (auto) 7.5 Neutrophils % 71.7 Lymphocytes % 15.2 D Monocytes % 11.1 H Eosinophils % 1.7 Basophils % 0.3 Nucleated RBC % 0 POC Glucometer 89 135 05/09/19 05/10/19 20:31 06:34 WBC RBC Hgb Hct MCV MCH MCHC RDW Plt Count MPV Absolute Neuts (auto) Neutrophils % Lymphocytes % Monocytes % Eosinophils % Basophils % Nucleated RBC % POC Glucometer 225 57 A/P Chronic Hypoxic and Hypercapneic Respiratory Failure Interstitial Lung Disease Restrictive Lung Disease Pulmonary HTN LV Systolic Dysfunction Atrial Fibrillation CAD s/p CABG CKD Aortic Stenosis DM - on antibiotics - inhaled bronchodilators - O2 to keep SpO2 >90% - BiPAP at night and PRN during day - rate control - continue anticoagulation - continue torsemide, aldactone Dr Martinez Problem List - Problems (1) Interstitial lung disease Code(s): J84.9 - INTERSTITIAL PULMONARY DISEASE, UNSPECIFIED (2) ASHD (arteriosclerotic heart disease) Code(s): I25.10 - ATHSCL HEART DISEASE OF [place] CORONARY ARTERY W/O ANG PCTRS (3) Asbestos pleurisy Code(s): J94.8 - OTHER SPECIFIED PLEURAL CONDITIONS (4) Atrial fibrillation Code(s): I48.91 - UNSPECIFIED ATRIAL FIBRILLATION Qualifiers: Atrial fibrillation type: longstanding persistent Qualified Code(s): I48.11 - Longstanding persistent atrial fibrillation (5) Bronchiectasis with (acute) exacerbation Code(s): J47.1 - BRONCHIECTASIS WITH (ACUTE) EXACERBATION (6) CAD (coronary artery disease) Code(s): I25.10 - ATHSCL HEART DISEASE OF [place] CORONARY ARTERY W/O ANG PCTRS Qualifiers: Coronary Disease-Associated Artery/Lesion type: bypass graft, autologous artery Associated angina: without angina Qualified Code(s): I25.810 - Atherosclerosis of coronary artery bypass graft(s) without angina pectoris (7) CKD (chronic kidney disease) Code(s): N18.9 - CHRONIC KIDNEY DISEASE, UNSPECIFIED Qualifiers: Chronic kidney disease stage: stage 3 (moderate) Qualified Code(s): N18.3 - Chronic kidney disease, stage 3 (moderate) (8) COPD (chronic obstructive pulmonary disease) Code(s): J44.9 - CHRONIC OBSTRUCTIVE PULMONARY DISEASE, UNSPECIFIED (9) COPD (chronic obstructive pulmonary disease) with acute bronchitis Code(s): J44.0 - CHR OBSTRUCTIVE PULMON DISEASE WITH (ACUTE) LOWER RESP INFCT; J20.9 - ACUTE BRONCHITIS, UNSPECIFIED (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 Code(s): I50.42 - CHRONIC COMBINED SYSTOLIC AND DIASTOLIC HRT FAIL (11) Chronic respiratory failure with hypercapnia Code(s): J96.12 - CHRONIC RESPIRATORY FAILURE WITH HYPERCAPNIA (12) DM type 2 (diabetes mellitus, type 2) Code(s): E11.9 - TYPE 2 DIABETES MELLITUS WITHOUT COMPLICATIONS Qualifiers: Diabetes mellitus halfway insulin use: with middle or intermediate school principal use Chronic kidney disease stage: stage 4 (severe) (13) HTN (hypertension) Code(s): I10 - ESSENTIAL (PRIMARY) HYPERTENSION (14) Hyperlipidemia Code(s): E78.5 - HYPERLIPIDEMIA, UNSPECIFIED (15) Pleural effusion Code(s): J90 - PLEURAL EFFUSION, NOT ELSEWHERE CLASSIFIED (16) Pulmonary hypertension Code(s): I27.20 - PULMONARY HYPERTENSION, UNSPECIFIED (17) S/P CABG (coronary artery bypass graft) Code(s): Z95.1 - PRESENCE OF AORTOCORONARY BYPASS GRAFT
[2019-05-10] MEDS ORDERED: SODIUM CHLORIDE 100 ML IVPB ONE ×3 (09:21→16:24)
[2019-05-10] MEDS ORDERED: AMPICILLIN NA/SULBACTAM NA 1.5 GM VIAL ONE ×3 (09:21→16:24)
[2019-05-10] MEDS: APIXABAN 2.5 MG TABLET PO SCH ×2 (09:35→22:25)
[2019-05-10] MEDS: TAMSULOSIN HCL 0.4 MG CAP PO SCH (09:35)
[2019-05-10] MEDS: ASPIRIN 81 MG CHEWABLE TABLETS PO SCH (09:35)
[2019-05-10] MEDS: COLCHICINE 0.6 MG CAP PO SCH (09:35)
[2019-05-10] MEDS: SPIRONOLACTONE 25 MG TABLET (FP) PO SCH (09:35)
[2019-05-10] MEDS: guaiFENesin/D-M SUGAR-FREE/ACLHOL-FREE 118 ML BOTTLE PO PRN ×2 (09:38→22:25)
[2019-05-10] MEDS: POLYETHYLENE GLYCOL 3350 119 GM BTL PO SCH ×2 (09:44→22:25)
--- NOTE | 2019-05-10 15:11 | PN ---
Progress Note (short form) - Note Progress Note: s: complains of cough. no chest pain, palps, dizziness Current Medications Albuterol/Ipratropium (Duoneb -) 1 amp NEB RQID [facility] Last Admin: 05/10/19 12:00 Dose: 1 amp Apixaban (Eliquis -) 2.5 mg PO BID [facility] Last Admin: 05/10/19 09:35 Dose: 2.5 mg Aspirin (Asa -) 81 mg PO DAILY [facility] Last Admin: 05/10/19 09:35 Dose: 81 mg Bisacodyl (Dulcolax -) 5 mg PO DAILY PRN PRN Reason: CONSTIPATION Colchicine (Colcrys) 0.6 mg PO DAILY [facility] Last Admin: 05/10/19 09:35 Dose: 0.6 mg Guaifenesin (Diabetic Tussin Dm -) 10 ml PO Q6H PRN PRN Reason: COUGH Last Admin: 05/10/19 09:38 Dose: 10 ml Ampicillin Sodium/Sulbactam (Sodium 1.5 gm/ Sodium Chloride) 100 mls @ 200 mls/ hr IVPB Q8H-IV [facility] Last Admin: 05/10/19 09:35 Dose: 200 mls/hr Insulin Aspart (Novolog Vial Sliding Scale -) 1 vial SQ ACHS [facility]; Protocol Last Admin: 05/10/19 12:19 Dose: Not Given Insulin Detemir (Levemir Vial) 40 units SQ BID@0700,2200 [facility] Last Admin: 05/10/19 06:35 Dose: Not Given Metoprolol Succinate (Toprol Xl -) 50 mg PO BID [facility] Last Admin: 05/10/19 09:35 Dose: 50 mg Nitroglycerin (Nitrostat -) 0.4 mg SL Q5M PRN PRN Reason: FOR CHEST PAIN Polyethylene Glycol (Miralax (For Daily Use) -) 17 gm PO BID [facility] Last Admin: 05/10/19 09:44 Dose: 17 grams Sitagliptin Phosphate (Januvia -) 25 mg PO DAILY@0700 [facility] Last Admin: 05/10/19 06:34 Dose: 25 mg Spironolactone (Aldactone -) 25 mg PO DAILY [facility] Last Admin: 05/10/19 09:35 Dose: 25 mg Tamsulosin HCl (Flomax -) 0.4 mg PO DAILY@0830 [facility] Last Admin: 05/10/19 09:35 Dose: 0.4 mg Torsemide (Demadex -) 100 mg PO BIDLASIX [facility] Last Admin: 05/10/19 14:15 Dose: 100 mg Vital Signs Period Temp Pulse Resp BP Sys/Junior Pulse Ox Last 24 Hr 97.6 F-98.3 F 67-99 18-22 97-142/58-83 96-99 Constitutional: Yes: No Distress, Calm Eyes: Yes: Conjunctiva Clear Respiratory: Yes: Rhonchi (no rales or active wheezing.) Gastrointestinal: Yes: Soft, Abdomen, Obese Cardiovascular: Yes: Pulse Irregular JVD: No Carotid Bruit: No Heart Sounds: Yes: S1, S2 (irreg) Edema: No Peripheral Pulses WNL: Yes Neurological: Yes: Alert, Oriented no jaundice, diaphoresis not agitated Reviewed personally: AF, cannot r/o old inferior CO age indeterminate. NSST changes. Echo: Report Reviewed Prior Cardiac Procedures: CABG Imaging - Results Chest X-ray: Report Reviewed (Left pleural thickening.) EKG: Image Reviewed Assessment/Plan DATA: Echo here 2019: EF 45-50%, dilated LA, MAC, Moderate to severe PHTN with RVSP = 40-50mmHg, @ least moderate . IMP: 1. Uncontrolled DM, hyperglycemia 2.Chronic sytolic CHF, EF 45% 3.Chronic respiratory failure 4.Asbestos lung dz/ ILD, PHTN 5.JUAN 6. Chronic AF 7.CAD s/p CABG 8. PHTN 9. CKD with baseline creatinine 2.0 10. REC: 1. Uncontrolled DM: as per PMD 2. Chronic systolic CHF: euvolemic at this time. Continue home regimen, BNP much lower than on previous admissions. Not on BETTY/ARB due to CKD. Continue Torsemide and Aldactone. 3. 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 4. Chronic AF: rate controlled, continue home Toprol and Eliquis adjusted for age and renal fx 5. CAD s/p CABG: no active ischemic sx, ECG stable. Continue Metoprolol. On low dose ASA as well, can consider d/c as he is on Eliquis. Added benefits of ASA are marginal when added to NOAC, especially in this age group. Consider low dose statin. 6. PHTN : is secondary to JUAN/ILD/CHF, supportive measures with O2, NIPPV, diuretics. 7. CKD:at baseline, monitor renal function. 8: Aortic stenosis: mild by echo last year; yearly echo as outpatient
[2019-05-10 17:51] VITALS: BMI 37.0
[2019-05-10] MEDS: MENTHOL/PHENOL 1 EACH UD MM PRN (22:25)
[2019-05-11] MEDS ORDERED: SODIUM CHLORIDE 100 ML IVPB ONE ×3 (02:50→17:05)
[2019-05-11] MEDS ORDERED: AMPICILLIN NA/SULBACTAM NA 1.5 GM VIAL ONE ×3 (02:50→17:04)
[2019-05-11] MEDS: AMPICILLIN NA/SULBACTAM NA 1.5 GM in SODIUM CHLORIDE 100 ML IVPB SCH ×3 (02:57→17:10)
[2019-05-11] MEDS ORDERED: PT OWN MED DRAWER 7, Y5N ONE ×3 (06:01→14:22)
[2019-05-11] MEDS: TORSEMIDE 100 MG TABLET PO SCH ×2 (06:48→14:36)
[2019-05-11] MEDS: INSULIN SLIDING SCALE (NOVOLOG) 1 VIAL SQ SCH ×4 (06:48→21:36)
[2019-05-11] MEDS: INSULIN (LEVEMIR) 100 UNITS/ML UNITS SQ SCH ×2 (06:48→21:37)
[2019-05-11] MEDS: ALBUTEROL SO4 2.5/IPRATROPIUM 0.5 INH SOL 3 ML VIAL.NEB. NEB SCH ×4 (07:35→20:13)
--- NOTE | 2019-05-11 09:14 | PN ---
Progress Note, Physician Chief Complaint: C/O SOB, cough, sore mouth and tongue. History of Present Illness: Cronic hypercarbic respiratory failure. at night bipap 15/8 Persistent 6.7cm left basilar atelectasis/consolidation. CABG ASHD. DM type on Levemir/Januvia. CRI/ckd 4. 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 Previous Thoracentesis in the past-neg for malignancy. JUAN-at nights using CPAP. Chronic A.Fib. Combined CHF. Gout. Gouty arthritis. Previous rectal surgery for abscess, fistula at [facility]. - Current Medication List Current Medications: Active Medications Albuterol/Ipratropium (Duoneb -) 1 amp NEB RQID [facility] Last Admin: 05/11/19 07:35 Dose: 1 amp Apixaban (Eliquis -) 2.5 mg PO BID [facility] Last Admin: 05/10/19 22:25 Dose: 2.5 mg Aspirin (Asa -) 81 mg PO DAILY [facility] Last Admin: 05/10/19 09:35 Dose: 81 mg Bisacodyl (Dulcolax -) 5 mg PO DAILY PRN PRN Reason: CONSTIPATION Colchicine (Colcrys) 0.6 mg PO DAILY [facility] Last Admin: 05/10/19 09:35 Dose: 0.6 mg Eucalyptus/Menthol/Phenol/Sorbitol (Cepastat Lozenge -) 1 each MM Q4H PRN PRN Reason: SORE THROAT Last Admin: 05/10/19 22:25 Dose: 1 each Guaifenesin (Diabetic Tussin Dm -) 10 ml PO Q6H PRN PRN Reason: COUGH Last Admin: 05/10/19 22:25 Dose: 10 ml Ampicillin Sodium/Sulbactam (Sodium 1.5 gm/ Sodium Chloride) 100 mls @ 200 mls/ hr IVPB Q8H-IV [facility] Last Admin: 05/11/19 02:57 Dose: 200 mls/hr Insulin Aspart (Novolog Vial Sliding Scale -) 1 vial SQ ACHS [facility]; Protocol Last Admin: 05/11/19 06:48 Dose: Not Given Insulin Detemir (Levemir Vial) 30 units SQ BID@0700,2200 [facility] Metoprolol Succinate (Toprol Xl -) 50 mg PO BID [facility] Last Admin: 05/10/19 22:25 Dose: 50 mg Nitroglycerin (Nitrostat -) 0.4 mg SL Q5M PRN PRN Reason: FOR CHEST PAIN Nystatin (Nystatin Oral Suspension -) 500,000 units PO Q6HPO [facility] Polyethylene Glycol (Miralax (For Daily Use) -) 17 gm PO BID [facility] Last Admin: 05/10/19 22:25 Dose: 17 grams Sitagliptin Phosphate (Januvia -) 25 mg PO DAILY@0700 [facility] Last Admin: 05/11/19 06:48 Dose: 25 mg Spironolactone (Aldactone -) 25 mg PO DAILY [facility] Last Admin: 05/10/19 09:35 Dose: 25 mg Tamsulosin HCl (Flomax -) 0.4 mg PO DAILY@0830 [facility] Last Admin: 05/10/19 09:35 Dose: 0.4 mg Torsemide (Demadex -) 100 mg PO BIDLASIX [facility] Last Admin: 05/11/19 06:48 Dose: 100 mg - Objective Vital Signs: Vital Signs Temperature 98 F 05/11/19 06:00 Pulse Rate 74 05/11/19 06:00 Respiratory Rate 20 05/11/19 06:00 Blood Pressure 104/58 L 05/11/19 06:00 O2 Sat by Pulse Oximetry (%) 97 05/11/19 08:01 Constitutional: Yes: Anxious, Mild Distress Eyes: Yes: Conjunctiva Clear, EOM Intact HENT: Yes: Atraumatic, Normocephalic, Other (redness and few patches of thrush) . No: Drooling Neck: Yes: Supple, Trachea Midline. No: Lymphadenopathy, Rigid Cardiovascular: Yes: Pulse Irregular, S1, S2 Respiratory: Yes: Regular, Diminished, On Nasal O2, Rhonchi, SOB, SOB on Exertion Gastrointestinal: Yes: Normal Bowel Sounds, Soft, Abdomen, Obese ...Rectal Exam: Yes: Deferred Genitourinary: No: Anuria Breast(s): Yes: WNL Musculoskeletal: Yes: WNL Extremities: No: Calf Tenderness, Cold, Cyanosis, Erythema, Shortened Edema: No Edema: RLE: Trace Integumentary: Yes: WNL Neurological: Yes: Alert, Oriented. No: Aphasia, Confusion, Dysarthria ...Motor Strength: WNL Psychiatric: Yes: WNL Labs: CBC, BMP 05/09/19 06:54 INR, PTT INR 1.14 (0.83-1.09) H 05/08/19 11:00 Problem List - Problems (1) Acute respiratory failure with hypoxia Assessment/Plan: Continue BIPAP, continue diuretics, nebulizers,, antibiotics Code(s): J96.01 - ACUTE RESPIRATORY FAILURE WITH HYPOXIA (2) Atrial fibrillation Assessment/Plan: Now on Eliquis 2.5 BID adjusted for CKD Code(s): I48.91 - UNSPECIFIED ATRIAL FIBRILLATION Qualifiers: Atrial fibrillation type: longstanding persistent Qualified Code(s): I48.11 - Longstanding persistent atrial fibrillation (3) DM type 2 (diabetes mellitus, type 2) Assessment/Plan: Controlled BGM, Continue Levemir 30 units BIDand Novolog. Januvia 25 mg/day. Code(s): E11.9 - TYPE 2 DIABETES MELLITUS WITHOUT COMPLICATIONS Qualifiers: Diabetes mellitus chcf insulin use: with auto damage estimator use Chronic kidney disease stage: stage 4 (severe) (4) Diabetes 1.5, managed as type 2 Code(s): E13.9 - OTHER SPECIFIED DIABETES MELLITUS WITHOUT COMPLICATIONS (5) Bronchiectasis with (acute) exacerbation Assessment/Plan: IV abx Nystatin for oral candidiasis. Code(s): J47.1 - BRONCHIECTASIS WITH (ACUTE) EXACERBATION
--- NOTE | 2019-05-11 10:06 | PN ---
Progress Note, Physician Chief Complaint: denies CP, SOB, palps. - Current Medication List Current Medications: Active Medications Albuterol/Ipratropium (Duoneb -) 1 amp NEB RQID [facility] Last Admin: 05/11/19 07:35 Dose: 1 amp Apixaban (Eliquis -) 2.5 mg PO BID [facility] Last Admin: 05/10/19 22:25 Dose: 2.5 mg Aspirin (Asa -) 81 mg PO DAILY [facility] Last Admin: 05/10/19 09:35 Dose: 81 mg Bisacodyl (Dulcolax -) 5 mg PO DAILY PRN PRN Reason: CONSTIPATION Colchicine (Colcrys) 0.6 mg PO DAILY [facility] Last Admin: 05/10/19 09:35 Dose: 0.6 mg Eucalyptus/Menthol/Phenol/Sorbitol (Cepastat Lozenge -) 1 each MM Q4H PRN PRN Reason: SORE THROAT Last Admin: 05/10/19 22:25 Dose: 1 each Guaifenesin (Diabetic Tussin Dm -) 10 ml PO Q6H PRN PRN Reason: COUGH Last Admin: 05/10/19 22:25 Dose: 10 ml Ampicillin Sodium/Sulbactam (Sodium 1.5 gm/ Sodium Chloride) 100 mls @ 200 mls/ hr IVPB Q8H-IV [facility] Last Admin: 05/11/19 02:57 Dose: 200 mls/hr Insulin Aspart (Novolog Vial Sliding Scale -) 1 vial SQ [facility]; Protocol Last Admin: 05/11/19 06:48 Dose: Not Given Insulin Detemir (Levemir Vial) 30 units SQ BID@0700,2200 [facility] Metoprolol Succinate (Toprol Xl -) 50 mg PO BID [facility] Last Admin: 05/10/19 22:25 Dose: 50 mg Nitroglycerin (Nitrostat -) 0.4 mg SL Q5M PRN PRN Reason: FOR CHEST PAIN Nystatin (Nystatin Oral Suspension -) 500,000 units PO Q6HPO [facility] Polyethylene Glycol (Miralax (For Daily Use) -) 17 gm PO BID [facility] Last Admin: 05/10/19 22:25 Dose: 17 grams Sitagliptin Phosphate (Januvia -) 25 mg PO DAILY@0700 [facility] Last Admin: 05/11/19 06:48 Dose: 25 mg Spironolactone (Aldactone -) 25 mg PO DAILY [facility] Last Admin: 05/10/19 09:35 Dose: 25 mg Tamsulosin HCl (Flomax -) 0.4 mg PO DAILY@0830 [facility] Last Admin: 05/10/19 09:35 Dose: 0.4 mg Torsemide (Demadex -) 100 mg PO BIDLASIX [facility] Last Admin: 05/11/19 06:48 Dose: 100 mg - Objective Vital Signs: Vital Signs Temperature 98 F 05/11/19 06:00 Pulse Rate 74 05/11/19 06:00 Respiratory Rate 20 05/11/19 06:00 Blood Pressure 104/58 L 05/11/19 06:00 O2 Sat by Pulse Oximetry (%) 97 05/11/19 08:01 Constitutional: Yes: No Distress Cardiovascular: Yes: Pulse Irregular Respiratory: Yes: Other (rhonchi b/l, no active wheezing.) Gastrointestinal: Yes: Soft, Abdomen, Obese Edema: No Neurological: Yes: Alert, Oriented ...Motor Strength: WNL Labs: CBC, BMP 05/11/19 08:20 05/09/19 06:54 INR, PTT INR 1.14 (0.83-1.09) H 05/08/19 11:00 Laboratory Tests 05/09/19 05/09/19 06:54 06:54 WBC 10.5 H Hgb 13.6 Plt Count 183 Potassium 3.8 Creatinine 2.1 H Assessment/Plan Assessment/Plan DATA: Echo this admission: diastolic dysfx, moderate IMP: 1. Uncontrolled DM, hyperglycemia 2.Chronic sytolic CHF, EF 45% 3.Chronic respiratory failure 4.Asbestos lung dz/ ILD, PHTN 5.JUAN 6. Chronic AF 7.CAD s/p CABG 8. PHTN 9. CKD with baseline creatinine 2.0 10. REC: 1. Uncontrolled DM: as per PMD 2. Chronic systolic CHF: euvolemic at this time. Continue home regimen, BNP much lower than on previous admissions. Not on BETTY/ARB due to CKD. Continue Torsemide and Aldactone. 3. 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 4. Chronic AF: rate controlled, continue home Toprol and Eliquis adjusted for age and renal fx 5. CAD s/p CABG: no active ischemic sx, ECG stable. Continue Metoprolol. On low dose ASA as well, can consider d/c as he is on Eliquis. Added benefits of ASA are marginal when added to NOAC, especially in this age group. Consider low dose statin. 6. PHTN : is secondary to JUAN/ILD/CHF, supportive measures with O2, NIPPV, diuretics. 7. CKD:at baseline, monitor renal function. 8: Aortic stenosis: moderate. Outpt f/u
[2019-05-11] MEDS: SPIRONOLACTONE 25 MG TABLET (FP) PO SCH (10:19)
[2019-05-11] MEDS: APIXABAN 2.5 MG TABLET PO SCH ×2 (10:19→21:47)
[2019-05-11] MEDS: COLCHICINE 0.6 MG CAP PO SCH (10:19)
[2019-05-11] MEDS: ASPIRIN 81 MG CHEWABLE TABLETS PO SCH (10:21)
[2019-05-11] MEDS: TAMSULOSIN HCL 0.4 MG CAP PO SCH (10:35)
[2019-05-11] MEDS: POLYETHYLENE GLYCOL 3350 119 GM BTL PO SCH ×2 (10:39→21:41)
[2019-05-11] MEDS: NYSTATIN 500,000 UNITS/5 ML SUSPENSION PO SCH ×2 (11:10→17:12)
[2019-05-11 11:25] LABS: BASO % 1.1 % (0-2.0); EOS % 1.5 % (0-4.5); HEMATOCRIT 38.1 % (35.4-49); HEMOGLOBIN 12.8 GM/dL (11.7-16.9); LYMPH % 18.8 % (8-40); MCH 30.4 pg (25.7-33.7); MCHC 33.5 g/dl (32.0-35.9); MEAN CELL VOLUME 90.9 fl (80-96); MONO % 13.5 % (3.8-10.2); NEUT % 65.1 % (42.8-82.8); PLATELET COUNT 188 K/MM3 (134-434); RBC 4.19 M/mm3 (4.00-5.60); RDW 18.2 % (11.9-15.9); WHITE BLOOD COUNT 7.9 K/mm3 (4.0-10.0)
[2019-05-11] MEDS: MENTHOL/PHENOL 1 EACH UD MM PRN (11:53)
--- NOTE | 2019-05-11 14:25 | PN ---
Progress Note (short form) - Note Progress Note: Feels better today. Still with cough. No CP. No acute events overnight. Intake & Output 05/08/19 05/09/19 05/10/19 05/11/19 23:59 23:59 23:59 23:59 Intake Total 250 815 700 50 Output Total 400 500 Balance -150 315 700 50 Weight 215 lb 221 lb 11.2 oz 216 lb 0.848 oz 218 lb Last Vital Signs Temp Pulse Resp BP Pulse Ox 97.6 F 72 20 106/60 97 05/11/19 10:00 05/11/19 10:00 05/11/19 10:00 05/11/19 10:00 05/11/19 08:01 Active Medications Albuterol/Ipratropium (Duoneb -) 1 amp NEB RQID [facility] Last Admin: 05/11/19 11:25 Dose: 1 amp Apixaban (Eliquis -) 2.5 mg PO BID [facility] Last Admin: 05/11/19 10:19 Dose: 2.5 mg Aspirin (Asa -) 81 mg PO DAILY [facility] Last Admin: 05/11/19 10:21 Dose: 81 mg Bisacodyl (Dulcolax -) 5 mg PO DAILY PRN PRN Reason: CONSTIPATION Colchicine (Colcrys) 0.6 mg PO DAILY [facility] Last Admin: 05/11/19 10:19 Dose: 0.6 mg Eucalyptus/Menthol/Phenol/Sorbitol (Cepastat Lozenge -) 1 each MM Q4H PRN PRN Reason: SORE THROAT Last Admin: 05/11/19 11:53 Dose: 1 each Guaifenesin (Diabetic Tussin Dm -) 10 ml PO Q6H PRN PRN Reason: COUGH Last Admin: 05/10/19 22:25 Dose: 10 ml Ampicillin Sodium/Sulbactam (Sodium 1.5 gm/ Sodium Chloride) 100 mls @ 200 mls/ hr IVPB Q8H-IV [facility] Last Admin: 05/11/19 10:20 Dose: 200 mls/hr Insulin Aspart (Novolog Vial Sliding Scale -) 1 vial SQ ACHS [facility]; Protocol Last Admin: 05/11/19 11:16 Dose: Not Given Insulin Detemir (Levemir Vial) 30 units SQ BID@0700,2200 [facility] Metoprolol Succinate (Toprol Xl -) 50 mg PO BID [facility] Last Admin: 05/11/19 10:19 Dose: 50 mg Nitroglycerin (Nitrostat -) 0.4 mg SL Q5M PRN PRN Reason: FOR CHEST PAIN Nystatin (Nystatin Oral Suspension -) 500,000 units PO Q6HPO [facility] Last Admin: 05/11/19 11:10 Dose: 500,000 units Polyethylene Glycol (Miralax (For Daily Use) -) 17 gm PO BID [facility] Last Admin: 05/11/19 10:39 Dose: 17 grams Sitagliptin Phosphate (Januvia -) 25 mg PO DAILY@0700 [facility] Last Admin: 05/11/19 06:48 Dose: 25 mg Spironolactone (Aldactone -) 25 mg PO DAILY [facility] Last Admin: 05/11/19 10:19 Dose: 25 mg Tamsulosin HCl (Flomax -) 0.4 mg PO DAILY@0830 [facility] Last Admin: 05/11/19 10:35 Dose: 0.4 mg Torsemide (Demadex -) 100 mg PO BIDLASIX [facility] Last Admin: 05/11/19 06:48 Dose: 100 mg Gen: Awake and alert, NAD on NC O2 Heart: RRR Lung: scattered rhonchi Abd: soft, nontender Ext: no edema Laboratory Results - last 24 hr 05/10/19 05/10/19 05/11/19 17:28 22:31 06:47 WBC Corrected WBC (auto) RBC Hgb Hct MCV MCH MCHC RDW Plt Count MPV Absolute Neuts (auto) Neutrophils % Lymphocytes % Monocytes % Eosinophils % Basophils % Nucleated RBC % Platelet Estimate Platelet Comment POC Glucometer 119 167 68 05/11/19 05/11/19 05/11/19 07:09 08:20 10:27 WBC Cancelled 7.9 Corrected WBC (auto) Cancelled RBC Cancelled 4.19 Hgb Cancelled 12.8 Hct Cancelled 38.1 MCV Cancelled 90.9 MCH Cancelled 30.4 MCHC Cancelled 33.5 RDW Cancelled 18.2 H Plt Count Cancelled 188 MPV Cancelled 9.0 Absolute Neuts (auto) Cancelled 5.1 Neutrophils % Cancelled 65.1 Lymphocytes % Cancelled 18.8 D Monocytes % Cancelled 13.5 H Eosinophils % Cancelled 1.5 Basophils % Cancelled 1.1 D Nucleated RBC % Cancelled 0 Platelet Estimate Cancelled Platelet Comment Cancelled POC Glucometer 67 05/11/19 11:13 WBC Corrected WBC (auto) RBC Hgb Hct MCV MCH MCHC RDW Plt Count MPV Absolute Neuts (auto) Neutrophils % Lymphocytes % Monocytes % Eosinophils % Basophils % Nucleated RBC % Platelet Estimate Platelet Comment POC Glucometer 64 A/P Chronic Hypoxic and Hypercapneic Respiratory Failure Interstitial Lung Disease Restrictive Lung Disease Pulmonary HTN LV Systolic Dysfunction Atrial Fibrillation CAD s/p CABG CKD Aortic Stenosis DM - ABX - Off systemic steroids - inhaled bronchodilators - O2 to keep SpO2 >90% - BiPAP at night and PRN during day - rate control - continue anticoagulation - continue torsemide, aldactone Dr Martinez Problem List - Problems (1) Interstitial lung disease Code(s): J84.9 - INTERSTITIAL PULMONARY DISEASE, UNSPECIFIED (2) ASHD (arteriosclerotic heart disease) Code(s): I25.10 - ATHSCL HEART DISEASE OF [place] CORONARY ARTERY W/O ANG PCTRS (3) Asbestos pleurisy Code(s): J94.8 - OTHER SPECIFIED PLEURAL CONDITIONS (4) Atrial fibrillation Code(s): I48.91 - UNSPECIFIED ATRIAL FIBRILLATION Qualifiers: Atrial fibrillation type: longstanding persistent Qualified Code(s): I48.11 - Longstanding persistent atrial fibrillation (5) Bronchiectasis with (acute) exacerbation Code(s): J47.1 - BRONCHIECTASIS WITH (ACUTE) EXACERBATION (6) CAD (coronary artery disease) Code(s): I25.10 - ATHSCL HEART DISEASE OF [place] CORONARY ARTERY W/O ANG PCTRS Qualifiers: Coronary Disease-Associated Artery/Lesion type: bypass graft, autologous artery Associated angina: without angina Qualified Code(s): I25.810 - Atherosclerosis of coronary artery bypass graft(s) without angina pectoris (7) CKD (chronic kidney disease) Code(s): N18.9 - CHRONIC KIDNEY DISEASE, UNSPECIFIED Qualifiers: Chronic kidney disease stage: stage 3 (moderate) Qualified Code(s): N18.3 - Chronic kidney disease, stage 3 (moderate) (8) COPD (chronic obstructive pulmonary disease) Code(s): J44.9 - CHRONIC OBSTRUCTIVE PULMONARY DISEASE, UNSPECIFIED (9) COPD (chronic obstructive pulmonary disease) with acute bronchitis Code(s): J44.0 - CHR OBSTRUCTIVE PULMON DISEASE WITH (ACUTE) LOWER RESP INFCT; J20.9 - ACUTE BRONCHITIS, UNSPECIFIED (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 Code(s): I50.42 - CHRONIC COMBINED SYSTOLIC AND DIASTOLIC HRT FAIL (11) Chronic respiratory failure with hypercapnia Code(s): J96.12 - CHRONIC RESPIRATORY FAILURE WITH HYPERCAPNIA (12) DM type 2 (diabetes mellitus, type 2) Code(s): E11.9 - TYPE 2 DIABETES MELLITUS WITHOUT COMPLICATIONS Qualifiers: Diabetes mellitus rn long term care insulin use: with rn long term care use Chronic kidney disease stage: stage 4 (severe) (13) HTN (hypertension) Code(s): I10 - ESSENTIAL (PRIMARY) HYPERTENSION (14) Hyperlipidemia Code(s): E78.5 - HYPERLIPIDEMIA, UNSPECIFIED (15) Pleural effusion Code(s): J90 - PLEURAL EFFUSION, NOT ELSEWHERE CLASSIFIED (16) Pulmonary hypertension Code(s): I27.20 - PULMONARY HYPERTENSION, UNSPECIFIED (17) S/P CABG (coronary artery bypass graft) Code(s): Z95.1 - PRESENCE OF AORTOCORONARY BYPASS GRAFT
[2019-05-11] MEDS: guaiFENesin/D-M SUGAR-FREE/ACLHOL-FREE 118 ML BOTTLE PO PRN (17:11)
[2019-05-12] MEDS ORDERED: AMPICILLIN NA/SULBACTAM NA 1.5 GM VIAL ONE ×3 (00:57→17:13)
[2019-05-12] MEDS ORDERED: SODIUM CHLORIDE 100 ML IVPB ONE ×3 (00:58→17:13)
[2019-05-12] MEDS: NYSTATIN 500,000 UNITS/5 ML SUSPENSION PO SCH ×5 (01:19→23:20)
[2019-05-12] MEDS: AMPICILLIN NA/SULBACTAM NA 1.5 GM in SODIUM CHLORIDE 100 ML IVPB SCH ×3 (01:20→17:19)
[2019-05-12] MEDS ORDERED: PT OWN MED DRAWER 7, Y5N ONE ×8 (06:01→17:27)
[2019-05-12] MEDS: TORSEMIDE 100 MG TABLET PO SCH ×2 (06:36→13:52)
[2019-05-12] MEDS: INSULIN (LEVEMIR) 100 UNITS/ML UNITS SQ SCH ×2 (06:40→21:59)
[2019-05-12] MEDS: INSULIN SLIDING SCALE (NOVOLOG) 1 VIAL SQ SCH ×4 (06:40→21:59)
[2019-05-12] MEDS: ALBUTEROL SO4 2.5/IPRATROPIUM 0.5 INH SOL 3 ML VIAL.NEB. NEB SCH ×4 (07:30→19:30)
[2019-05-12] MEDS ORDERED: INSULIN (NOVOLOG) ASPART 100 UNITS/ML 10ML VIAL ONE (07:39)
[2019-05-12 08:11] LABS: BASO % 1.4 % (0-2.0); HEMATOCRIT 35.4 % (35.4-49); HEMOGLOBIN 12.1 GM/dL (11.7-16.9); LYMPH % 20.5 % (8-40); MCHC 34.2 g/dl (32.0-35.9); MEAN CELL VOLUME 90.8 fl (80-96); MEAN PLT VOLUME 8.8 fl (7.5-11.1); MONO % 14.1 % (3.8-10.2); PLATELET COUNT 170 K/MM3 (134-434); RBC 3.89 M/mm3 (4.00-5.60); RDW 18.3 % (11.9-15.9); WHITE BLOOD COUNT 7.8 K/mm3 (4.0-10.0)
--- NOTE | 2019-05-12 08:27 | PN ---
Progress Note (short form) - Note Progress Note: PULMONARY c/o tongue pain. States breathing is improving. No fevers recorded. Vital Signs Period Temp Pulse Resp BP Sys/Junior Pulse Ox Last 24 Hr 97.6 F-98.0 F 72-96 20-20 104-109/55-62 96-99 Gen: NAD at rest Heart: RRR Lung: decreased breath sounds at the bases Abd: soft, nontender Ext: no edema CBC, BMP 05/12/19 07:35 Active Medications Albuterol/Ipratropium (Duoneb -) 1 amp NEB RQID [facility] Last Admin: 05/11/19 20:13 Dose: 1 amp Apixaban (Eliquis -) 2.5 mg PO BID [facility] Last Admin: 05/11/19 21:47 Dose: 2.5 mg Aspirin (Asa -) 81 mg PO DAILY [facility] Last Admin: 05/11/19 10:21 Dose: 81 mg Bisacodyl (Dulcolax -) 5 mg PO DAILY PRN PRN Reason: CONSTIPATION Colchicine (Colcrys) 0.6 mg PO DAILY [facility] Last Admin: 05/11/19 10:19 Dose: 0.6 mg Eucalyptus/Menthol/Phenol/Sorbitol (Cepastat Lozenge -) 1 each MM Q4H PRN PRN Reason: SORE THROAT Last Admin: 05/11/19 11:53 Dose: 1 each Guaifenesin (Diabetic Tussin Dm -) 10 ml PO Q6H PRN PRN Reason: COUGH Last Admin: 05/11/19 17:11 Dose: 10 ml Ampicillin Sodium/Sulbactam (Sodium 1.5 gm/ Sodium Chloride) 100 mls @ 200 mls/ hr IVPB Q8H-IV [facility] Last Admin: 05/12/19 01:20 Dose: 200 mls/hr Insulin Aspart (Novolog Vial Sliding Scale -) 1 vial SQ ACHS [facility]; Protocol Last Admin: 05/12/19 06:40 Dose: Not Given Insulin Detemir (Levemir Vial) 30 units SQ BID@0700,2200 [facility] Last Admin: 05/12/19 06:40 Dose: 30 units Metoprolol Succinate (Toprol Xl -) 50 mg PO BID [facility] Last Admin: 05/11/19 21:41 Dose: 50 mg Nitroglycerin (Nitrostat -) 0.4 mg SL Q5M PRN PRN Reason: FOR CHEST PAIN Nystatin (Nystatin Oral Suspension -) 500,000 units PO Q6HPO [facility] Last Admin: 05/12/19 06:36 Dose: 500,000 units Polyethylene Glycol (Miralax (For Daily Use) -) 17 gm PO BID [facility] Last Admin: 05/11/19 21:41 Dose: 17 grams Sitagliptin Phosphate (Januvia -) 25 mg PO DAILY@0700 [facility] Last Admin: 05/12/19 06:36 Dose: 25 mg Spironolactone (Aldactone -) 25 mg PO DAILY [facility] Last Admin: 05/11/19 10:19 Dose: 25 mg Tamsulosin HCl (Flomax -) 0.4 mg PO DAILY@0830 [facility] Last Admin: 05/11/19 10:35 Dose: 0.4 mg Torsemide (Demadex -) 100 mg PO BIDLASIX [facility] Last Admin: 05/12/19 06:36 Dose: 100 mg A/P Chronic Hypoxic and Hypercapneic Respiratory Failure Interstitial Lung Disease Restrictive Lung Disease Pulmonary HTN LV Systolic Dysfunction Atrial Fibrillation CAD s/p CABG CKD Aortic Stenosis DM - on antibiotics - inhaled bronchodilators - O2 to keep SpO2 >90% - BiPAP at night and PRN during day - rate control - continue anticoagulation - continue torsemide, aldactone
[2019-05-12 08:33] LABS: BILIRUBIN,TOTAL 0.5 mg/dL (0.2-1); BLOOD UREA NITROGEN 55.8 mg/dL (7-18); CALCIUM 8.7 mg/dL (8.5-10.1); CREATININE 2.3 mg/dL (0.55-1.3); POTASSIUM 4.2 mmol/L (3.5-5.1); TOT PROT 6.2 g/dl (6.4-8.2)
[2019-05-12] MEDS: APIXABAN 2.5 MG TABLET PO SCH ×2 (09:02→21:58)
[2019-05-12] MEDS: TAMSULOSIN HCL 0.4 MG CAP PO SCH (09:02)
[2019-05-12] MEDS: COLCHICINE 0.6 MG CAP PO SCH (09:03)
[2019-05-12] MEDS: guaiFENesin/D-M SUGAR-FREE/ACLHOL-FREE 118 ML BOTTLE PO PRN (09:05)
[2019-05-12] MEDS: POLYETHYLENE GLYCOL 3350 119 GM BTL PO SCH ×2 (09:17→21:59)
[2019-05-12] MEDS: SPIRONOLACTONE 25 MG TABLET (FP) PO SCH (09:18)
--- NOTE | 2019-05-12 10:24 | PN ---
Progress Note (short form) - Note Progress Note: Chief Complaint: denies CP, SOB, palps, dizzy Current Medications Generic Name Dose Route Start Last Admin Trade Name Freq PRN Reason Stop Dose Admin Albuterol/Ipratropium 1 amp 05/08/19 16:00 05/12/19 07:30 Duoneb - NEB 1 amp RQID JOE Administration Apixaban 2.5 mg 05/08/19 22:00 05/12/19 09:02 Eliquis - PO 2.5 mg BID JOE Administration Bisacodyl 5 mg 05/08/19 13:34 Dulcolax - PO DAILY PRN CONSTIPATION Colchicine 0.6 mg 05/09/19 10:00 05/12/19 09:03 Colcrys PO 0.6 mg DAILY JOE Administration Eucalyptus/Menthol/Phenol/Sorbitol 1 each 05/10/19 18:32 05/11/19 11:53 Cepastat Lozenge - MM 1 each Q4H PRN Administration SORE THROAT Guaifenesin 10 ml 05/08/19 19:55 05/12/19 09:05 Diabetic Tussin Dm - PO 10 ml Q6H PRN Administration COUGH Ampicillin Sodium/Sulbactam 100 mls @ 200 mls/hr 05/10/19 08:24 05/12/19 09: 04 Sodium 1.5 gm/ Sodium Chloride IVPB 200 mls/hr Q8H-IV JOE Administration Insulin Aspart 1 vial 05/08/19 16:30 05/12/19 06:40 Novolog Vial Sliding Scale - SQ Not Given ACHS [facility] Protocol Insulin Detemir 30 units 05/11/19 09:09 05/12/19 06:40 Levemir Vial SQ 30 units BID@0700,2200 JOE Administration Metoprolol Succinate 50 mg 05/08/19 22:00 05/12/19 09:03 Toprol Xl - PO 50 mg BID JOE Administration Nitroglycerin 0.4 mg 05/08/19 13:26 Nitrostat - SL Q5M PRN FOR CHEST PAIN Nystatin 500,000 units 05/11/19 12:00 05/12/19 06:36 Nystatin Oral Suspension - PO 500,000 units Q6HPO [facility]E Administration Polyethylene Glycol 17 gm 05/08/19 22:00 05/12/19 09:17 Miralax (For Daily Use) - PO 17 grams BID [facility]E Administration Sitagliptin Phosphate 25 mg 05/09/19 07:00 05/12/19 06:36 Januvia - PO 25 mg DAILY@0700 JOE Administration Spironolactone 25 mg 05/09/19 10:00 05/12/19 09:18 Aldactone - PO 25 mg DAILY [facility]E Administration Tamsulosin HCl 0.4 mg 05/09/19 08:30 05/12/19 09:02 Flomax - PO 0.4 mg DAILY@0830 JOE Administration Torsemide 100 mg 05/09/19 14:00 05/12/19 06:36 Demadex - PO 100 mg BIDLASIX [facility]E Administration Vital Signs Period Temp Pulse Resp BP Sys/Junior Pulse Ox Last 24 Hr 97.7 F-98.2 F 82-96 20-20 100-109/55-62 92-99 Constitutional: Yes: No Distress Cardiovascular: Yes: Pulse Irregular Respiratory: Yes: Other (rhonchi b/l, no active wheezing.) Gastrointestinal: Yes: Soft, Abdomen, Obese Edema: No Neurological: Yes: Alert, Oriented ...Motor Strength: WNL no diaphoresis jaundice Labs: CBC, BMP 05/12/19 07:35 05/12/19 07:35 Assessment/Plan DATA: Echo this admission: diastolic dysfx, moderate IMP: 1. Uncontrolled DM, hyperglycemia 2.Chronic sytolic CHF, EF 45% 3.Chronic respiratory failure 4.Asbestos lung dz/ ILD, PHTN 5.JUAN 6. Chronic AF 7.CAD s/p CABG 8. PHTN 9. CKD with baseline creatinine 2.0 10. REC: 1. Uncontrolled DM: as per PMD 2. Chronic systolic CHF: euvolemic at this time. Continue home regimen, BNP much lower than on previous admissions. Not on BETTY/ARB due to CKD. Continue Torsemide and Aldactone. 3. 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 4. Chronic AF: rate controlled, continue home Toprol and Eliquis adjusted for age and renal fx 5. CAD s/p CABG: no active ischemic sx, ECG stable. Continue Metoprolol. On low dose ASA as well, will d/c as he is on Eliquis. Added benefits of ASA are marginal when added to NOAC, especially in this age group. Consider low dose statin after lfts improve. 6. PHTN : is secondary to JUAN/ILD/CHF, supportive measures with O2, NIPPV, diuretics. 7. CKD:at baseline, monitor renal function. 8: Aortic stenosis: moderate. Outpt f/u
--- NOTE | 2019-05-12 11:52 | PN ---
Physical Exam: SUBJECTIVE: Patient seen and examined. He reports tongue pain that has been ongoing for the last few days. denies any tongue biting, cough or any other symptoms. OBJECTIVE: [employer] coverage for Dr. Moseley patient c/o of tongue pain; no acute findings on inspection oral cavity, patient on nystatin. discussed with pharmacist, who recommends magic mouth wash as it may provide some relief patient denies worsening shortness of breath or chest pain. states he is comfortable at rest. 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 He presents to the ED on for hyperglycemia in the 500 range and while in the ED developed shortness of breath and placed on bipap. Patient with multiple admissions for acute on chronic respiratory failure with ICU admissions. Vital Signs Period Temp Pulse Resp BP Sys/Junior Pulse Ox Last 24 Hr 97.7 F-98.2 F 82-96 20-20 100-109/55-62 92-99 GENERAL: The patient is awake, alert, and fully oriented, in no acute distress. HEAD: Normal with no signs of trauma. EYES: PERRL, extraocular movements intact, sclera anicteric, conjunctiva clear. No ptosis. ENT: Ears normal, nares patent, oropharynx clear without exudates, moist mucous membranes. NECK: Trachea midline, full range of motion, supple. LUNGS: Breath sounds equal, diminished bilaterally, home oxygen dependent HEART: Regular rate and rhythm ABDOMEN: Soft, nontender, nondistended, normoactive bowel sounds EXTREMITIES: no edema. NEUROLOGICAL: Normal speech, gait not observed, ambuates with a RW PSYCH: Normal mood, normal affect. SKIN: Warm, dry, normal turgor, no rashes or lesions noted Laboratory Results - last 24 hr 05/11/19 05/11/19 05/12/19 17:16 21:36 06:39 WBC RBC Hgb Hct MCV MCH MCHC RDW Plt Count MPV Absolute Neuts (auto) Neutrophils % Lymphocytes % Monocytes % Eosinophils % Basophils % Nucleated RBC % Sodium Potassium Chloride Carbon Dioxide Anion Gap BUN Creatinine Est GFR (CKD-EPI)AfAm Est GFR (CKD-EPI)NonAf POC Glucometer 90 125 116 Random Glucose Calcium Total Bilirubin AST ALT Alkaline Phosphatase Total Protein Albumin 05/12/19 05/12/19 05/12/19 07:35 07:35 11:11 WBC 7.8 RBC 3.89 L Hgb 12.1 Hct 35.4 MCV 90.8 MCH 31.0 MCHC 34.2 RDW 18.3 H Plt Count 170 MPV 8.8 Absolute Neuts (auto) 4.7 Neutrophils % 61.0 Lymphocytes % 20.5 Monocytes % 14.1 H Eosinophils % 3.0 D Basophils % 1.4 Nucleated RBC % 0 Sodium 135 L Potassium 4.2 Chloride 93 L Carbon Dioxide 35 H Anion Gap 7 L BUN 55.8 H Creatinine 2.3 H Est GFR (CKD-EPI)AfAm 28.53 Est GFR (CKD-EPI)NonAf 24.61 POC Glucometer 158 Random Glucose 94 Calcium 8.7 Total Bilirubin 0.5 AST 84 H ALT 106 H Alkaline Phosphatase 93 Total Protein 6.2 L Albumin 3.0 L Active Medications Generic Name Dose Route Start Last Admin Trade Name Freq PRN Reason Stop Dose Admin Albuterol/Ipratropium 1 amp 05/08/19 16:00 05/12/19 11:38 Duoneb - NEB 1 amp RQID JOE Administration Apixaban 2.5 mg 05/08/19 22:00 05/12/19 09:02 Eliquis - PO 2.5 mg BID JOE Administration Bisacodyl 5 mg 05/08/19 13:34 Dulcolax - PO DAILY PRN CONSTIPATION Colchicine 0.6 mg 05/09/19 10:00 05/12/19 09:03 Colcrys PO 0.6 mg DAILY [facility]E Administration Eucalyptus/Menthol/Phenol/Sorbitol 1 each 05/10/19 18:32 05/11/19 11:53 Cepastat Lozenge - MM 1 each Q4H PRN Administration SORE THROAT Guaifenesin 10 ml 05/08/19 19:55 05/12/19 09:05 Diabetic Tussin Dm - PO 10 ml Q6H PRN Administration COUGH Ampicillin Sodium/Sulbactam 100 mls @ 200 mls/hr 05/10/19 08:24 05/12/19 09: 04 Sodium 1.5 gm/ Sodium Chloride IVPB 200 mls/hr Q8H-IV [facility]E Administration Insulin Aspart 1 vial 05/08/19 16:30 05/12/19 11:12 Novolog Vial Sliding Scale - SQ 2 units ACHS JOE Administration Protocol Insulin Detemir 30 units 05/11/19 09:09 05/12/19 06:40 Levemir Vial SQ 30 units BID@0700,2200 JOE Administration Metoprolol Succinate 50 mg 05/08/19 22:00 05/12/19 09:03 Toprol Xl - PO 50 mg BID JOE Administration Nitroglycerin 0.4 mg 05/08/19 13:26 Nitrostat - SL Q5M PRN FOR CHEST PAIN Nystatin 500,000 units 05/11/19 12:00 05/12/19 11:09 Nystatin Oral Suspension - PO 500,000 units Q6HPO JOE Administration Polyethylene Glycol 17 gm 05/08/19 22:00 05/12/19 09:17 Miralax (For Daily Use) - PO 17 grams BID JOE Administration Sitagliptin Phosphate 25 mg 05/09/19 07:00 05/12/19 06:36 Januvia - PO 25 mg DAILY@0700 JOE Administration Spironolactone 25 mg 05/09/19 10:00 05/12/19 09:18 Aldactone - PO 25 mg DAILY JOE Administration Tamsulosin HCl 0.4 mg 05/09/19 08:30 05/12/19 09:02 Flomax - PO 0.4 mg DAILY@0830 JOE Administration Torsemide 100 mg 05/09/19 14:00 05/12/19 06:36 Demadex - PO 100 mg BIDLASIX JOE Administration ASSESSMENT/PLAN: Problem List - Problems (1) Atrial fibrillation Assessment/Plan: On Eliquis 2.5mg BID Code(s): I48.91 - UNSPECIFIED ATRIAL FIBRILLATION Qualifiers: Atrial fibrillation type: longstanding persistent Qualified Code(s): I48.11 - Longstanding persistent atrial fibrillation (2) Interstitial lung disease Assessment/Plan: home oxygen dependent bipap nocturnally Code(s): J84.9 - INTERSTITIAL PULMONARY DISEASE, UNSPECIFIED (3) Acute kidney injury superimposed on CKD Code(s): N17.9 - ACUTE KIDNEY FAILURE, UNSPECIFIED; N18.9 - CHRONIC KIDNEY DISEASE, UNSPECIFIED (4) DM type 2 (diabetes mellitus, type 2) Assessment/Plan: better controlled maintain fasting glucose < 180 on novolog Code(s): E11.9 - TYPE 2 DIABETES MELLITUS WITHOUT COMPLICATIONS Qualifiers: Diabetes mellitus intermediate teacher insulin use: with intermediate teacher use Chronic kidney disease stage: stage 4 (severe) (5) HTN (hypertension) Assessment/Plan: stable Code(s): I10 - ESSENTIAL (PRIMARY) HYPERTENSION (6) Acute respiratory failure with hypoxia Assessment/Plan: continue BIPAP, continue diuretics, nebulizers, antibiotics monitor vitals Code(s): J96.01 - ACUTE RESPIRATORY FAILURE WITH HYPOXIA (7) Prophylactic measure Assessment/Plan: fen fluids: no po monitor electrolytes diabetic diet full code dvt: on eliquis Code(s): Z29.9 - ENCOUNTER FOR PROPHYLACTIC MEASURES, UNSPECIFIED Visit type - Emergency Visit Emergency Visit: Yes ED Registration Date: 05/08/19 Care time: The patient presented to the Emergency Department on the above date and was hospitalized for further evaluation of their emergent condition. - New Patient This patient is new to me today: Yes Date on this admission: 05/12/19 - Critical Care Critical Care patient: No - Discharge Referral Referred to [facility] No
[2019-05-12] MEDS: MAG HYDROX/ALH/SMC/DPHA/LIDO 240 ML MOUTHWASH MM SCH ×2 (12:41→17:46)
[2019-05-12] MEDS ORDERED: ACETAMINOPHEN 325 MG TABLET (FP) PO PRN (15:47)
[2019-05-12] MEDS: MENTHOL/PHENOL 1 EACH UD MM PRN (17:01)
[2019-05-13] MEDS: MAG HYDROX/ALH/SMC/DPHA/LIDO 240 ML MOUTHWASH MM SCH ×4 (00:09→17:27)
[2019-05-13] MEDS ORDERED: AMPICILLIN NA/SULBACTAM NA 1.5 GM VIAL ONE ×3 (00:27→16:54)
[2019-05-13] MEDS ORDERED: SODIUM CHLORIDE 100 ML IVPB ONE ×3 (00:27→16:54)
[2019-05-13] MEDS: AMPICILLIN NA/SULBACTAM NA 1.5 GM in SODIUM CHLORIDE 100 ML IVPB SCH ×3 (01:15→17:27)
[2019-05-13] MEDS ORDERED: PT OWN MED DRAWER 7, Y5N ONE ×4 (05:43→20:52)
[2019-05-13] MEDS: NYSTATIN 500,000 UNITS/5 ML SUSPENSION PO SCH ×3 (06:24→17:27)
[2019-05-13] MEDS: TORSEMIDE 100 MG TABLET PO SCH ×2 (06:25→15:29)
[2019-05-13] MEDS: INSULIN SLIDING SCALE (NOVOLOG) 1 VIAL SQ SCH ×4 (06:25→22:06)
[2019-05-13] MEDS: INSULIN (LEVEMIR) 100 UNITS/ML UNITS SQ SCH ×2 (06:25→22:05)
[2019-05-13] MEDS: ALBUTEROL SO4 2.5/IPRATROPIUM 0.5 INH SOL 3 ML VIAL.NEB. NEB SCH ×4 (07:28→20:27)
--- NOTE | 2019-05-13 09:31 | PN ---
Physical Exam: SUBJECTIVE: Patient seen and examined at the bedside. Feels like his breathing is improving. He is used the bipap overnight until 4a.m. denies shortness of breath. having some dry cough and sore throat tongue discomfort/pain resolving with magic mouth wash OBJECTIVE: Symphony coverage for Dr. 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 He presents to the ED on for hyperglycemia in the 500 range and while in the ED developed shortness of breath and placed on bipap. Patient with multiple admissions for acute on chronic respiratory failure with ICU admissions. Vital Signs Period Temp Pulse Resp BP Sys/Junior Pulse Ox Last 24 Hr 97.5 F-98.2 F 82-89 20-20 85-110/52-66 94-99 GENERAL: The patient is awake, alert, and fully oriented, in no acute distress. sitting up in bed, on 2 liters of nasal cannula. HEAD: Normal with no signs of trauma. EYES: PERRL, extraocular movements intact, sclera anicteric, conjunctiva clear. No ptosis. ENT: Ears normal, nares patent, oropharynx clear without exudates, moist mucous membranes. NECK: Trachea midline, full range of motion, supple. LUNGS: Breath sounds equal, diminished bilaterally, home oxygen dependent HEART: Regular rate and rhythm ABDOMEN: Soft, nontender, nondistended, normoactive bowel sounds EXTREMITIES: no edema. NEUROLOGICAL: Normal speech, gait not observed, ambulates with a RW PSYCH: Normal mood, normal affect. SKIN: Warm, dry, normal turgor, no rashes or lesions noted Laboratory Results - last 24 hr 05/12/19 05/12/19 05/12/19 11:11 16:54 21:56 POC Glucometer 158 161 144 05/13/19 06:23 POC Glucometer 81 Active Medications Generic Name Dose Route Start Last Admin Trade Name Freq PRN Reason Stop Dose Admin Acetaminophen 650 mg 05/12/19 15:47 05/12/19 16:03 Tylenol - PO 650 mg Q6H PRN Administration HEADACHE Albuterol/Ipratropium 1 amp 05/08/19 16:00 05/13/19 07:28 Duoneb - NEB 1 amp RQID JOE Administration Apixaban 2.5 mg 05/08/19 22:00 05/12/19 21:58 Eliquis - PO 2.5 mg BID JOE Administration Bisacodyl 5 mg 05/08/19 13:34 Dulcolax - PO DAILY PRN CONSTIPATION Colchicine 0.6 mg 05/09/19 10:00 05/12/19 09:03 Colcrys PO 0.6 mg DAILY JOE Administration Eucalyptus/Menthol/Phenol/Sorbitol 1 each 05/13/19 10:00 Cepastat Lozenge - MM BID JOE Guaifenesin 10 ml 05/08/19 19:55 05/12/19 09:05 Diabetic Tussin Dm - PO 10 ml Q6H PRN Administration COUGH Ampicillin Sodium/Sulbactam 100 mls @ 200 mls/hr 05/10/19 08:24 05/13/19 01: 15 Sodium 1.5 gm/ Sodium Chloride IVPB 200 mls/hr Q8H-IV JOE Administration Insulin Aspart 1 vial 05/08/19 16:30 05/13/19 06:25 Novolog Vial Sliding Scale - SQ Not Given ACHS [facility] Protocol Insulin Detemir 30 units 05/11/19 09:09 05/13/19 06:25 Levemir Vial SQ 30 units BID@0700,2200 JOE Administration Lidocaine/Aluminum/Magnesium/Simeth 5 ml 05/12/19 12:00 05/13/19 06:24 Magic Mouthwash *Sjr Formula* - MM 5 ml Q6HPO JOE Administration Metoprolol Succinate 50 mg 05/08/19 22:00 05/12/19 21:58 Toprol Xl - PO 50 mg BID JOE Administration Nitroglycerin 0.4 mg 05/08/19 13:26 Nitrostat - SL Q5M PRN FOR CHEST PAIN Nystatin 500,000 units 05/11/19 12:00 05/13/19 06:24 Nystatin Oral Suspension - PO 500,000 units Q6HPO JOE Administration Polyethylene Glycol 17 gm 05/08/19 22:00 05/12/19 21:59 Miralax (For Daily Use) - PO 17 grams BID JOE Administration Sitagliptin Phosphate 25 mg 05/09/19 07:00 05/13/19 06:25 Januvia - PO 25 mg DAILY@0700 JOE Administration Spironolactone 25 mg 05/09/19 10:00 05/12/19 09:18 Aldactone - PO 25 mg DAILY JOE Administration Tamsulosin HCl 0.4 mg 05/09/19 08:30 05/12/19 09:02 Flomax - PO 0.4 mg DAILY@0830 JOE Administration Torsemide 100 mg 05/09/19 14:00 05/13/19 06:25 Demadex - PO 100 mg BIDLASIX JOE Administration ASSESSMENT/PLAN: Problem List - Problems (1) Acute respiratory failure with hypoxia Assessment/Plan: continue BIPAP, continue diuretics, nebulizers, antibiotics monitor vitals pulmonary following Code(s): J96.01 - ACUTE RESPIRATORY FAILURE WITH HYPOXIA (2) Atrial fibrillation Assessment/Plan: On Eliquis 2.5mg BID rate control on toprol 50mg bid Code(s): I48.91 - UNSPECIFIED ATRIAL FIBRILLATION Qualifiers: Atrial fibrillation type: longstanding persistent Qualified Code(s): I48.11 - Longstanding persistent atrial fibrillation (3) Interstitial lung disease Assessment/Plan: home oxygen dependent bipap nocturnally, stable oxygen saturations and breathing is non labored. 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 Chronic kidney disease stage: stage 4 (severe) (6) HTN (hypertension) Assessment/Plan: stable Code(s): I10 - ESSENTIAL (PRIMARY) HYPERTENSION (7) Prophylactic measure Assessment/Plan: fen fluids: tolerating PO, on demadex, defer ivf monitor electrolytes daily diabetic diet full code dvt: on eliquis bid Code(s): Z29.9 - ENCOUNTER FOR PROPHYLACTIC MEASURES, UNSPECIFIED Visit type - Emergency Visit Emergency Visit: Yes ED Registration Date: 05/08/19 Care time: The patient presented to the Emergency Department on the above date and was hospitalized for further evaluation of their emergent condition. - New Patient This patient is new to me today: No - Critical Care Critical Care patient: No - Discharge Referral Referred to [facility] Med P.C.: No
--- NOTE | 2019-05-13 09:32 | PN ---
Progress Note (short form) - Note Progress Note: PULMONARY Denies shortness of breath. +nonproductive cough. No fevers recorded. Vital Signs Period Temp Pulse Resp BP Sys/Junior Pulse Ox Last 24 Hr 97.5 F-98.2 F 82-89 20-20 85-110/52-66 94-99 Gen: NAD at rest Heart: RRR Lung: decreased breath sounds at the bases Abd: soft, nontender Ext: no edema CBC, BMP 05/12/19 07:35 05/12/19 07:35 Active Medications Acetaminophen (Tylenol -) 650 mg PO Q6H PRN PRN Reason: HEADACHE Last Admin: 05/12/19 16:03 Dose: 650 mg Albuterol/Ipratropium (Duoneb -) 1 amp NEB RQID [facility] Last Admin: 05/13/19 07:28 Dose: 1 amp Apixaban (Eliquis -) 2.5 mg PO BID [facility] Last Admin: 05/12/19 21:58 Dose: 2.5 mg Bisacodyl (Dulcolax -) 5 mg PO DAILY PRN PRN Reason: CONSTIPATION Colchicine (Colcrys) 0.6 mg PO DAILY [facility] Last Admin: 05/12/19 09:03 Dose: 0.6 mg Eucalyptus/Menthol/Phenol/Sorbitol (Cepastat Lozenge -) 1 each MM BID [facility] Guaifenesin (Diabetic Tussin Dm -) 10 ml PO Q6H PRN PRN Reason: COUGH Last Admin: 05/12/19 09:05 Dose: 10 ml Ampicillin Sodium/Sulbactam (Sodium 1.5 gm/ Sodium Chloride) 100 mls @ 200 mls/ hr IVPB Q8H-IV [facility] Last Admin: 05/13/19 01:15 Dose: 200 mls/hr Insulin Aspart (Novolog Vial Sliding Scale -) 1 vial SQ ACHS [facility]; Protocol Last Admin: 05/13/19 06:25 Dose: Not Given Insulin Detemir (Levemir Vial) 30 units SQ BID@0700,2200 [facility] Last Admin: 05/13/19 06:25 Dose: 30 units Lidocaine/Aluminum/Magnesium/Simeth (Magic Mouthwash *Sjr Formula* -) 5 ml MM Q6HPO [facility] Last Admin: 05/13/19 06:24 Dose: 5 ml Metoprolol Succinate (Toprol Xl -) 50 mg PO BID [facility] Last Admin: 05/12/19 21:58 Dose: 50 mg Nitroglycerin (Nitrostat -) 0.4 mg SL Q5M PRN PRN Reason: FOR CHEST PAIN Nystatin (Nystatin Oral Suspension -) 500,000 units PO Q6HPO [facility] Last Admin: 05/13/19 06:24 Dose: 500,000 units Polyethylene Glycol (Miralax (For Daily Use) -) 17 gm PO BID [facility] Last Admin: 05/12/19 21:59 Dose: 17 grams Sitagliptin Phosphate (Januvia -) 25 mg PO DAILY@0700 [facility] Last Admin: 05/13/19 06:25 Dose: 25 mg Spironolactone (Aldactone -) 25 mg PO DAILY [facility] Last Admin: 05/12/19 09:18 Dose: 25 mg Tamsulosin HCl (Flomax -) 0.4 mg PO DAILY@0830 [facility] Last Admin: 05/12/19 09:02 Dose: 0.4 mg Torsemide (Demadex -) 100 mg PO BIDLASIX [facility] Last Admin: 05/13/19 06:25 Dose: 100 mg A/P Chronic Hypoxic and Hypercapneic Respiratory Failure Interstitial Lung Disease Restrictive Lung Disease Pulmonary HTN LV Systolic Dysfunction Atrial Fibrillation CAD s/p CABG CKD Aortic Stenosis DM - on antibiotics - inhaled bronchodilators - O2 to keep SpO2 >90% - BiPAP at night and PRN during day - rate control - continue anticoagulation - continue torsemide, aldactone
--- NOTE | 2019-05-13 09:53 | PN ---
Progress Note (short form) - Note Progress Note: Chief Complaint: denies CP, SOB, palps, dizzy, +cough Current Medications Generic Name Dose Route Start Last Admin Trade Name Freq PRN Reason Stop Dose Admin Acetaminophen 650 mg 05/12/19 15:47 05/12/19 16:03 Tylenol - PO 650 mg Q6H PRN Administration HEADACHE Albuterol/Ipratropium 1 amp 05/08/19 16:00 05/13/19 07:28 Duoneb - NEB 1 amp RQID JOE Administration Apixaban 2.5 mg 05/08/19 22:00 05/12/19 21:58 Eliquis - PO 2.5 mg BID JOE Administration Bisacodyl 5 mg 05/08/19 13:34 Dulcolax - PO DAILY PRN CONSTIPATION Colchicine 0.6 mg 05/09/19 10:00 05/12/19 09:03 Colcrys PO 0.6 mg DAILY JOE Administration Eucalyptus/Menthol/Phenol/Sorbitol 1 each 05/13/19 10:00 Cepastat Lozenge - MM BID JOE Guaifenesin 10 ml 05/08/19 19:55 05/12/19 09:05 Diabetic Tussin Dm - PO 10 ml Q6H PRN Administration COUGH Ampicillin Sodium/Sulbactam 100 mls @ 200 mls/hr 05/10/19 08:24 05/13/19 01: 15 Sodium 1.5 gm/ Sodium Chloride IVPB 200 mls/hr Q8H-IV JOE Administration Insulin Aspart 1 vial 05/08/19 16:30 05/13/19 06:25 Novolog Vial Sliding Scale - SQ Not Given ACHS [facility] Protocol Insulin Detemir 30 units 05/11/19 09:09 05/13/19 06:25 Levemir Vial SQ 30 units BID@0700,2200 JOE Administration Lidocaine/Aluminum/Magnesium/Simeth 5 ml 05/12/19 12:00 05/13/19 06:24 Magic Mouthwash *Sjr Formula* - MM 5 ml Q6HPO JOE Administration Metoprolol Succinate 50 mg 05/08/19 22:00 05/12/19 21:58 Toprol Xl - PO 50 mg BID JOE Administration Nitroglycerin 0.4 mg 05/08/19 13:26 Nitrostat - SL Q5M PRN FOR CHEST PAIN Nystatin 500,000 units 05/11/19 12:00 05/13/19 06:24 Nystatin Oral Suspension - PO 500,000 units Q6HPO JOE Administration Polyethylene Glycol 17 gm 05/08/19 22:00 05/12/19 21:59 Miralax (For Daily Use) - PO 17 grams BID JOE Administration Sitagliptin Phosphate 25 mg 05/09/19 07:00 05/13/19 06:25 Januvia - PO 25 mg DAILY@0700 JOE Administration Spironolactone 25 mg 05/09/19 10:00 05/12/19 09:18 Aldactone - PO 25 mg DAILY JOE Administration Tamsulosin HCl 0.4 mg 05/09/19 08:30 05/12/19 09:02 Flomax - PO 0.4 mg DAILY@0830 JOE Administration Torsemide 100 mg 05/09/19 14:00 05/13/19 06:25 Demadex - PO 100 mg BIDLASIX JOE Administration Vital Signs Period Temp Pulse Resp BP Sys/Junior Pulse Ox Last 24 Hr 97.5 F-98.2 F 82-89 20-20 85-110/52-66 94-99 Constitutional: Yes: No Distress Cardiovascular: Yes: Pulse Irregular Respiratory: Yes: Other (rhonchi b/l, no active wheezing.) Gastrointestinal: Yes: Soft, Abdomen, Obese Edema: No Neurological: Yes: Alert, Oriented ...Motor Strength: WNL no diaphoresis jaundice Labs: CBC, BMP 05/12/19 07:35 05/12/19 07:35 DATA: Echo this admission: diastolic dysfx, moderate IMP: 1. Uncontrolled DM, hyperglycemia 2.Chronic sytolic CHF, EF 45% 3.Chronic respiratory failure 4.Asbestos lung dz/ ILD, PHTN 5.JUAN 6. Chronic AF 7.CAD s/p CABG 8. PHTN 9. CKD with baseline creatinine 2.0 10. REC: 1. Uncontrolled DM: as per PMD 2. Chronic systolic CHF: euvolemic at this time. Continue home regimen, BNP much lower than on previous admissions. Not on BETTY/ARB due to CKD. Continue Torsemide and Aldactone. 3. 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 4. Chronic AF: rate controlled, continue home Toprol and Eliquis adjusted for age and renal fx 5. CAD s/p CABG: no active ischemic sx, ECG stable. Continue Metoprolol. On low dose ASA as well, will d/c as he is on Eliquis. Added benefits of ASA are marginal when added to NOAC, especially in this age group. Consider low dose statin after lfts improve. 6. PHTN : is secondary to JUAN/ILD/CHF, supportive measures with O2, NIPPV, diuretics. 7. CKD:at baseline, monitor renal function. 8: Aortic stenosis: moderate. Outpt f/u
[2019-05-13] MEDS: COLCHICINE 0.6 MG CAP PO SCH (10:03)
[2019-05-13] MEDS: SPIRONOLACTONE 25 MG TABLET (FP) PO SCH (10:03)
[2019-05-13] MEDS: APIXABAN 2.5 MG TABLET PO SCH ×2 (10:03→22:05)
[2019-05-13] MEDS: TAMSULOSIN HCL 0.4 MG CAP PO SCH (10:03)
[2019-05-13] MEDS: MENTHOL/PHENOL 1 EACH UD MM SCH ×2 (10:04→22:08)
[2019-05-13] MEDS: POLYETHYLENE GLYCOL 3350 119 GM BTL PO SCH ×2 (10:06→22:06)
[2019-05-13 10:48] LABS: BASO % 2.3 % (0-2.0); EOS % 2.4 % (0-4.5); HEMATOCRIT 37.2 % (35.4-49); HEMOGLOBIN 12.6 GM/dL (11.7-16.9); LYMPH % 20.1 % (8-40); MCH 30.8 pg (25.7-33.7); MCHC 33.8 g/dl (32.0-35.9); MEAN CELL VOLUME 91.3 fl (80-96); MEAN PLT VOLUME 8.9 fl (7.5-11.1); MONO % 12.5 % (3.8-10.2); NEUT % 62.7 % (42.8-82.8); PLATELET COUNT 170 K/MM3 (134-434); RBC 4.08 M/mm3 (4.00-5.60); RDW 18.3 % (11.9-15.9); WHITE BLOOD COUNT 6.4 K/mm3 (4.0-10.0)
[2019-05-13 11:21] LABS: ALBUMIN 3.2 g/dl (3.4-5.0); BILIRUBIN,TOTAL 0.6 mg/dL (0.2-1); BLOOD UREA NITROGEN 50.8 mg/dL (7-18); CALCIUM 8.6 mg/dL (8.5-10.1); CREATININE 2.4 mg/dL (0.55-1.3); MAGNESIUM 2.6 mg/dL (1.8-2.4); POTASSIUM 4.2 mmol/L (3.5-5.1); TOT PROT 6.7 g/dl (6.4-8.2)
[2019-05-13] MEDS: BACITRACIN 15 GM TUBE TOPICAL OINTMENT TP SCH ×2 (19:44→22:08)
[2019-05-14] MEDS: MAG HYDROX/ALH/SMC/DPHA/LIDO 240 ML MOUTHWASH MM SCH ×2 (00:36→06:40)
[2019-05-14] MEDS: NYSTATIN 500,000 UNITS/5 ML SUSPENSION PO SCH ×2 (00:36→06:39)
[2019-05-14] MEDS ORDERED: SODIUM CHLORIDE 100 ML IVPB ONE ×2 (00:57→09:29)
[2019-05-14] MEDS ORDERED: AMPICILLIN NA/SULBACTAM NA 1.5 GM VIAL ONE ×2 (00:57→09:29)
[2019-05-14] MEDS: AMPICILLIN NA/SULBACTAM NA 1.5 GM in SODIUM CHLORIDE 100 ML IVPB SCH ×2 (01:10→09:54)
[2019-05-14 06:39] VITALS: BP 110/56; PULSE 68; TEMP 97.8
[2019-05-14] MEDS: TORSEMIDE 100 MG TABLET PO SCH (06:40)
[2019-05-14] MEDS: INSULIN (LEVEMIR) 100 UNITS/ML UNITS SQ SCH (06:41)
[2019-05-14] MEDS: INSULIN SLIDING SCALE (NOVOLOG) 1 VIAL SQ SCH (06:45)
[2019-05-14] MEDS ORDERED: PT OWN MED DRAWER 7, Y5N ONE ×2 (06:56→09:33)
[2019-05-14] MEDS ORDERED: INSULIN (LEVEMIR) 100 UNITS/ML UNITS SQ ONE (06:56)
[2019-05-14] MEDS ORDERED: INSULIN (NOVOLOG) ASPART 100 UNITS/ML 10ML VIAL ONE (06:57)
[2019-05-14] MEDS: ALBUTEROL SO4 2.5/IPRATROPIUM 0.5 INH SOL 3 ML VIAL.NEB. NEB SCH (07:48)
--- NOTE | 2019-05-14 08:14 | PN ---
Progress Note (short form) - Note Progress Note: Feels better, still has mild dry cough. BGM controlled. Vital Signs (72 hours) 05/11/19 05/11/19 05/11/19 09:00 10:00 19:02 Temperature 97.6 F 97.7 F Pulse Rate 72 96 H Respiratory 20 20 20 Rate Blood Pressure 106/60 109/55 L O2 Sat by Pulse 96 96 Oximetry (%) 05/11/19 05/11/19 05/11/19 19:44 20:13 20:26 Temperature Pulse Rate Respiratory Rate Blood Pressure O2 Sat by Pulse 97 97 99 Oximetry (%) 05/11/19 05/11/19 05/12/19 21:44 22:00 08:35 Temperature 98.0 F Pulse Rate 84 Respiratory 20 Rate Blood Pressure 104/62 O2 Sat by Pulse 97 92 L Oximetry (%) 05/12/19 05/12/19 05/12/19 09:00 10:00 14:00 Temperature 98.2 F 98.0 F Pulse Rate 82 89 Respiratory 20 20 20 Rate Blood Pressure 100/60 108/66 O2 Sat by Pulse 96 96 Oximetry (%) 05/12/19 05/12/19 05/12/19 16:20 19:30 21:00 Temperature 97.5 F L Pulse Rate 86 Respiratory 20 Rate Blood Pressure 110/60 O2 Sat by Pulse 94 L 95 Oximetry (%) 05/12/19 05/13/19 05/13/19 22:00 00:53 10:00 Temperature 97.8 F Pulse Rate 84 87 Respiratory 20 18 Rate Blood Pressure 85/52 L 122/76 O2 Sat by Pulse 95 99 Oximetry (%) 05/13/19 05/13/19 05/13/19 14:00 16:02 16:20 Temperature 97.8 F 97.9 F Pulse Rate 89 80 Respiratory 20 20 Rate Blood Pressure 105/64 100/50 L O2 Sat by Pulse 96 Oximetry (%) 05/13/19 05/13/19 05/14/19 21:00 22:00 06:38 Temperature 97.8 F Pulse Rate 76 68 Respiratory 18 20 Rate Blood Pressure 85/39 L 110/56 L O2 Sat by Pulse 94 L 94 L Oximetry (%) 05/14/19 07:46 Temperature Pulse Rate Respiratory Rate Blood Pressure O2 Sat by Pulse 94 L Oximetry (%) Awake, alert Neck is supple Lungs B/l BS, no rales/ Heart S1S2 irregular. Abdomen obese Ext no CCE Laboratory Results - last 24 hr 05/13/19 05/13/19 05/13/19 10:05 10:05 11:26 WBC 6.4 RBC 4.08 Hgb 12.6 Hct 37.2 MCV 91.3 MCH 30.8 MCHC 33.8 RDW 18.3 H Plt Count 170 MPV 8.9 Absolute Neuts (auto) 4.0 Neutrophils % 62.7 Lymphocytes % 20.1 Monocytes % 12.5 H Eosinophils % 2.4 Basophils % 2.3 H Nucleated RBC % 0 Sodium 136 Potassium 4.2 Chloride 96 L Carbon Dioxide 32 Anion Gap 8 BUN 50.8 H Creatinine 2.4 H Est GFR (CKD-EPI)AfAm 27.09 Est GFR (CKD-EPI)NonAf 23.38 POC Glucometer 114 Random Glucose 95 Calcium 8.6 Magnesium 2.6 H Total Bilirubin 0.6 AST 88 H ALT 112 H Alkaline Phosphatase 98 Total Protein 6.7 Albumin 3.2 L 05/13/19 05/13/19 05/14/19 17:08 22:02 06:44 WBC RBC Hgb Hct MCV MCH MCHC RDW Plt Count MPV Absolute Neuts (auto) Neutrophils % Lymphocytes % Monocytes % Eosinophils % Basophils % Nucleated RBC % Sodium Potassium Chloride Carbon Dioxide Anion Gap BUN Creatinine Est GFR (CKD-EPI)AfAm Est GFR (CKD-EPI)NonAf POC Glucometer 146 149 76 Random Glucose Calcium Magnesium Total Bilirubin AST ALT Alkaline Phosphatase Total Protein Albumin Current Active Problems Problem Status Onset Interstitial lung disease Acute Problem List - Problems (1) Acute respiratory failure with hypoxia Code(s): J96.01 - ACUTE RESPIRATORY FAILURE WITH HYPOXIA (2) Atrial fibrillation Code(s): I48.91 - UNSPECIFIED ATRIAL FIBRILLATION Qualifiers: Atrial fibrillation type: longstanding persistent Qualified Code(s): I48.11 - Longstanding persistent atrial fibrillation (3) DM type 2 (diabetes mellitus, type 2) Code(s): E11.9 - TYPE 2 DIABETES MELLITUS WITHOUT COMPLICATIONS Qualifiers: 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
--- NOTE | 2019-05-14 08:16 | DS ---
Physical Examination Vital Signs: Vital Signs Temperature 97.8 F 05/14/19 06:38 Pulse Rate 68 05/14/19 06:38 Respiratory Rate 20 05/14/19 06:38 Blood Pressure 110/56 L 05/14/19 06:38 O2 Sat by Pulse Oximetry (%) 94 L 05/14/19 07:46 Constitutional: Yes: No Distress Eyes: Yes: Conjunctiva Clear, EOM Intact HENT: Yes: Atraumatic, Normocephalic Neck: Yes: Supple, Trachea Midline Cardiovascular: Yes: Pulse Irregular, S1, S2 Respiratory: Yes: Regular, CTA Bilaterally Gastrointestinal: Yes: Normal Bowel Sounds, Abdomen, Obese ...Rectal Exam: Yes: Deferred Breast(s): Yes: WNL Extremities: Yes: WNL Edema: No Integumentary: Yes: WNL Neurological: Yes: WNL, Alert, Oriented, Other ([place]). No: Aphasia, Lethargy, Seizure ...Motor Strength: WNL Psychiatric: Yes: WNL Labs: CBC, BMP 05/13/19 10:05 05/13/19 10:05 Discharge Summary Problems reviewed: Yes Reason For Visit: INTERSTITAL LUNG DISEASE/Uncontolled DM Current Active Problems Interstitial lung disease (Acute) Condition: Stable - Instructions Referrals: Sunil Moseley MD [Primary Care Provider] - Disposition: VNS/HOME HEALTH CARE - Home Medications Comprehensive Discharge Medication List: Ambulatory Orders Sitagliptin Phosphate [Januvia -] 25 mg PO DAILY@0700 #90 tab 10/14/14 Spironolactone [Aldactone -] 25 mg PO DAILY #30 tablet 03/31/17 Aspirin 81 mg PO DAILY 04/10/17 Insulin Glargine,Hum.rec.anlog [Lantus] 40 unit SQ DAILY 04/10/17 Metoprolol Succinate [Toprol Xl] 50 mg PO BID 02/20/18 Apixaban [Eliquis -] 2.5 mg PO BID 03/30/18 Acetaminophen [Tylenol .Regular Strength -] 650 mg PO Q8H PRN tablet 01/26/19 Colchicine [Colcrys] 0.6 mg PO DAILY cap 01/26/19 Insulin Sliding Scale [Novolog Vial Sliding Scale -] 1 vial SQ ACHS units 01/26 Methyl Salicylate/Menthol Oint [Analgesic [place] -] 1 applic TP BID PRN applic Nitroglycerin Sublingual [Nitrostat -] 0.4 mg SL Q5M PRN tab 01/26/19 Tamsulosin HCl [Flomax -] 0.4 mg PO DAILY@0830 cap.er.24h 01/26/19 Torsemide 20 mg PO BID 60 Days #120 tablet 01/26/19
[2019-05-14] MEDS: COLCHICINE 0.6 MG CAP PO SCH (09:36)
[2019-05-14] MEDS: APIXABAN 2.5 MG TABLET PO SCH (09:36)
[2019-05-14] MEDS: TAMSULOSIN HCL 0.4 MG CAP PO SCH (09:36)
[2019-05-14] MEDS: SPIRONOLACTONE 25 MG TABLET (FP) PO SCH (09:36)
[2019-05-14] MEDS: POLYETHYLENE GLYCOL 3350 119 GM BTL PO SCH (09:37)
[2019-05-14] MEDS: MENTHOL/PHENOL 1 EACH UD MM SCH (09:37)
[2019-05-14] MEDS: BACITRACIN 15 GM TUBE TOPICAL OINTMENT TP SCH (09:39)
== END 2019-05-14 10:45 | disposition home health service (06) | DRG 637 ==
LOC: JER 09:59 → JERBED 13:41 → J8W 05-09 14:32
PROVIDERS: ADMIT Internal Medicine; ATTEND Internal Medicine
DX: E11.65 Type 2 diabetes mellitus with hyperglycemia (principal); J96.22 Acute and chronic respiratory failure with hypercapnia; J96.21 Acute and chronic respiratory failure with hypoxia; I50.42 Chronic combined systolic (congestive) and diastolic (congestive) heart failure; N18.4 Chronic kidney disease, stage 4 (severe); J98.11 Atelectasis; J84.9 Interstitial pulmonary disease, unspecified; I48.20 Chronic atrial fibrillation, unspecified; B37.0 Candidal stomatitis; I25.10 Atherosclerotic heart disease of native coronary artery without angina pectoris; I27.20 Pulmonary hypertension, unspecified; J61 Pneumoconiosis due to asbestos and other mineral fibers; G47.33 Obstructive sleep apnea (adult) (pediatric); E66.9 Obesity, unspecified; Z68.37 Body mass index [BMI] 37.0-37.9, adult; Z95.1 Presence of aortocoronary bypass graft; E78.5 Hyperlipidemia, unspecified
CPT/HCPCS: 36415; 71045-TC-FY; 80053; 80061; 81003; 82010; 82550; 82803; 82962; 83036; 83721; 83735; 83880; 84100; 84484; 85025; 85610; 85730; 87077; 87081; 87086; 93005; 93010; 93306-TC; 94640; 94660; 99285-25

== ENCOUNTER 2019-12-21 10:01 | Inpatient (IN) | payer OTHER ==
--- NOTE | 2019-12-21 10:24 | PDOC ---
History of Present Illness - General Chief Complaint: Abnormal Lab Results (Outside) Stated Complaint: SENT BY DOC Time Seen by Provider: 12/21/19 10:22 History Source: Patient Exam Limitations: No Limitations - History of Present Illness Initial Comments: 12/21/19 10:24 Arturo Barber is an 89M with PMH CABG, CHF, AFIB, IDDM, ischemic cardiomyopathy with EF 35-40%, chronic ILD (On 3L 11/10), pulmonary HTN, CKD, sent by PMD Dr. Moseley for Ca 12.5 and hypotension. Patient here with son at bedside. Patient reports he has been having weakness, chest pain, SOB, and a cough for the last few days, non-stop. Denies abd pain, urinary sx. Eating and drinking well. Poorly able to ambulate at baseline, unsteady on his feet. Constipated. Per son, had routine blood works with PMD, called by PMD for Ca elevated, sent to ED for high Ca and evaluation. Meds: Linzess, ASA, tamsulosin, Januvia, Synthroid, torsemide, Eliquis Pulm: Jose PMD: Pradip Past History - Medical History Allergies/Adverse Reactions: Allergies Allergy/AdvReac Type Severity Reaction Status Date / Time No Known Allergies Allergy Verified 12/21/19 10:03 Home Medications: Ambulatory Orders Sitagliptin Phosphate [Januvia -] 25 mg PO DAILY@0700 #90 tab 10/14/14 Spironolactone [Aldactone -] 25 mg PO DAILY #30 tablet 03/31/17 Aspirin 81 mg PO DAILY 04/10/17 Insulin Glargine,Hum.rec.anlog [Lantus] 40 unit SQ DAILY 04/10/17 Metoprolol Succinate [Toprol Xl] 50 mg PO BID 02/20/18 Apixaban [Eliquis -] 2.5 mg PO BID 03/30/18 Acetaminophen [Tylenol .Regular Strength -] 650 mg PO Q8H PRN tablet 01/26/19 Colchicine [Colcrys] 0.6 mg PO DAILY cap 01/26/19 Insulin Sliding Scale [Novolog Vial Sliding Scale -] 1 vial SQ ACHS units 01/26/19 Methyl Salicylate/Menthol Oint [Analgesic Harper -] 1 applic TP BID PRN applic 01/26/19 Nitroglycerin Sublingual [Nitrostat -] 0.4 mg SL Q5M PRN tab 01/26/19 Tamsulosin HCl [Flomax -] 0.4 mg PO DAILY@0830 cap.er.24h 01/26/19 Insulin (Levemir) [Levemir Vial] 40 units SQ BID@0700,2200 units 05/14/19 Torsemide [Demadex -] 100 mg PO BIDLASIX tablet 05/14/19 Anemia: No Asthma: No Cancer: No Cardiac Disorders: Yes (Atrial Fib, CAD, CABG, aortic stenosis) CVA: No COPD: Yes (O2 Dep 4 L) CHF: Yes Dementia: Yes (mild) Diabetes: Yes GI Disorders: Yes (ulcerative colitis) Disorders: Yes (bph) HTN: Yes Hypercholesterolemia: Yes Liver Disease: No Seizures: No Thyroid Disease: No Lung CA: No (MESOTHELIOMA) - Surgical History Abdominal Surgery: No Appendectomy: No Cardiac Surgery: Yes (CABG) Cholecystectomy: No Lung Surgery: No Neurologic Surgery: No Orthopedic Surgery: No - Immunization History Immunization Up to Date: Yes - Psycho-Social/Smoking History Smoking History: Former smoker Have you smoked in the past 12 months: No If you are a former smoker, when did you quit?: 66 years old Information on smoking cessation initiated: No - Substance Abuse Hx (Audit-C & DAST Scrn) How often the patient has a drink containing alcohol: Never Score: In Men: 4 or > Positive; In Women: 3 or > Positive: 0 Screen Result (Pos requires Nsg. Audit-10AR): Negative In the last yr the pt used illegal drug/Rx for NonMed reason: No Score: Yes response is considered Positive: 0 Screen Result (Positive result requires Nsg. DAST-10): Negative Review of Systems - Review of Systems Able to Perform ROS?: Yes Constitutional: No: Fever, Loss of Appetite HEENTM: No: Symptoms Reported Respiratory: Yes: Cough, Shortness of Breath. No: Productive cough Cardiac (ROS): No: Symptoms Reported ABD/GI: Yes: Constipated : No: Symptoms Reported Musculoskeletal: No: Symptoms Reported Integumentary: No: Symptoms Reported Neurological: No: Symptoms reported Endocrine: No: Symptoms Reported Hematologic/Lymphatic: No: Symptoms Reported All Other Systems: Reviewed and Negative *Physical Exam - Vital Signs Last Vital Signs Temp Pulse Resp BP Pulse Ox 97.8 F 87 18 86/56 L 96 12/21/19 10:04 12/21/19 10:04 12/21/19 10:04 12/21/19 10:04 12/21/19 10:04 - Physical Exam General Appearance: Yes: Nourished, Appropriately Dressed, Mild Distress, Obese, Other (resting in bed in NAD, hypotensive) HEENT: positive: EOMI, STACEY, Normal Voice, Symmetrical, Pharynx Normal (dry mouth). negative: Scleral Icterus (R), Scleral Icterus (L), Pharyngeal Erythema, Tonsillar Exudate, Tonsillar Erythema Neck: positive: Trachea midline, Normal Thyroid, Supple. negative: Tender, Rigid, Lymphadenopathy (R), Lymphadenopathy (L), Tender lateral, Tender midline Respiratory/Chest: positive: Crackles (bases). negative: Chest Tender, Lungs Clear, Normal Breath Sounds, Respiratory Distress, Accessory Muscle Use, Labored Respiration, Rales, Rhonchi, Stridor, Wheezing Cardiovascular: positive: Regular Rhythm, Regular Rate. negative: Murmur, Tachycardia Gastrointestinal/Abdominal: positive: Normal Bowel Sounds, Soft, Protuberent. negative: Tender, Organomegaly Musculoskeletal: positive: Normal Inspection. negative: CVA Tenderness, Vertebral Tenderness Extremity: positive: Normal Capillary Refill, Normal Inspection, Normal Range of Motion, Pelvis Stable, Pedal Edema (2+ bilaterally, non-tender), Swelling. negative: Tender Integumentary: positive: Normal Color, Dry Neurologic: positive: Fully Oriented, Alert, Normal Mood/Affect, Normal Response ED Treatment Course - LABORATORY CBC & Chemistry Diagram: 12/21/19 10:50 12/21/19 10:50 Medical Decision Making - Medical Decision Making 12/21/19 10:22 Patient sent by PMD for elevated Ca, has multiple cardiac and pulmonary comorbidities, here with coughing and SOB with weakness, found to be hypotensive. Sepsis order set obtained with BNP, holding IVF given crackles in lungs, pending CXR. Will likely merit admission given hypotension and cough, suspect PNA vs CHF, as well as evaluation of hypercalcemia. ECG AFIB, HR 79, QRS 120, QTc 442, wide QRS complexes, no GUILLERMINA/D or TWI. CXR no new findings compared to priors, low suspicion of PNA 12/21/19 12:18 Labs notable for: - WBC 10.5 - VBG pH 7.380, CO2 69.7 - Na 132 - HCO3 40, consistent with chronic compensation - Cr 2.3, WNL for patient - trop 0.02 - Ca 12.3, elevated, giving IVF - lactic acid 2.1, giving IVF - UA 3+ LE, 369 bacteria, starting on 1g Rocephin given prior sensitivity Giving IVF for hypotension and Ca elevation, will need admission for hypercalcemia evaluation. 12/21/19 14:[address] Moseley, would like [facility] admit for hypercalcemia eval, PTH, Vit D, etc. Discussed with admitting team, good for admit to Med/Surg for hypercalcemia evaluation. Low suspicion of PNA given CXR WNL, reason for cough unclear. Discharge - Discharge Information Problems reviewed: Yes Clinical Impression/Diagnosis: Cough, Hypercalcemia Condition: Stable - Admission Yes - Follow up/Referral Referrals: Sunil Moseley MD [Primary Care Provider] - - Patient Discharge Instructions - Post Discharge Activity
--- OUTSIDE RECORDS SUMMARY | 2019-12-21 10:28 | XMS ---
:1930 Author Organization [facility] Support Name Relationship Address Phone JANETTE VICKERS SON [address] [phone] [place] [address] RE Unavailable Unavailable Unavailable IVY VICKERS SON [address] [place] [address] JOSE VICKERS [address] [facility] [place] [address] Re-disclosure Warning The records that you are about to access may contain information from federally- assisted alcohol or drug abuse programs. If such information is present, then the following federally mandated warning applies: This information has been disclosed to you from records protected by federal confidentiality rules (42 CFR part 2). The federal rules prohibit you from making any further disclosure of this information unless further disclosure is expressly permitted by the written consent of the person to whom it pertains or as otherwise permitted by 42 CFR part 2. A general authorization for the release of medical or other information is NOT sufficient for this purpose. The Federal rules restrict any use of the information to criminally investigate or prosecute any alcohol or drug abuse patient.The records that you are about to access may contain highly sensitive health information, the redisclosure of which is protected by Article 27-F of the [facility] Public Health law. If you continue you may haveaccess to information: Regarding HIV / AIDS; Provided by facilities licensed or operated by the [facility] Office of Mental Health; or Provided by the [facility] Office for People With Developmental Disabilities. If such information is present, then the following [facility] mandated warning applies: This information has been disclosed to you from confidential records which are protected by state law. State law prohibits you from making any further disclosure of this information without the specific written consent of the person to whom it pertains, or as otherwise permitted by law. Any unauthorized further disclosure in violation of state law may result in a fine or long-term sentence or both. A general authorization for the release of medical or other information is NOT sufficient authorization for further disclosure. Medications Medication Brand Start Product Dose Route Administrative Pharm[facility] Indications Reaction Description Data Name Date Form Instructions Instructions Source(s) benzonatate Benzon 03/04/ CAPSULE 100 complet Thr ee Times White 100 MG Oral atate 2018 mg ed A Day as Eric ins Capsule (Tracie 12:00: needed for Ho spital [Tessalon leann 00 AM For Cough Perles] Perles EST Benzonatate *) 100 (Tessalon Mg Cap Perles*) 100 Mg Cap Furosemide Furose TABLET 40 mg complet Once A Day White 40 MG Oral mide ed Pm Hours Plain s Tablet 40 Mg Hospital Furosemide Tablet 40 Mg Tablet 24 HR Metopr CONTROLL 50 mg complet Twice A D ay White metoprolol olol ED ed [place] succinate Succin RELEASE Hospi darling 50 MG ate TABLET Extended (Topro Release l-Xl*) Oral Tablet 50 Mg [Toprol] Tabcr Metoprolol Succinate (Toprol-Xl* ) 50 Mg Tabcr Spironolact Spiron TABLET 25 mg complet Daily White one 25 MG olacto ed [place] Oral Tablet ne Hospital Spironolact (Aldac one tone*) (Aldactone* 25 Mg ) 25 Mg Tab Tab Furosemide Furose TABLET 80 mg complet Daily White 40 MG Oral mide ed Morning [place] Tablet 40 Mg Hospital Furosemide Tablet 40 Mg Tablet Pravastatin Pravas TABLET 40 mg complet Daily White Sodium 40 tatin ed [place] MG Oral Sodium Hospital Tablet (Prava [Pravachol] chol*) Pravastatin 40 Mg Sodium Tablet (Pravachol* ) 40 Mg Tablet apixaban Apixab TABLET 5 mg complet Twice A D ay White 2.5 MG Oral an ed [place] Tablet ([facility] [Eliquis] is Apixaban 2.5MG* (Eliquis ) 2.5 2.5MG*) 2.5 Mg Mg Tablet Tablet febuxostat Febuxo TABLET 40 mg complet Daily White 40 MG Oral stat ed [place] Tablet ([facility] [Uloric] c 40MG Febuxostat Tab*) (Uloric 40 Mg 40MG Tab*) Tablet 40 Mg Tablet linaclotide Linacl CAPSULE complet White 0.29 MG otide ed [place] Oral (Linze [facility] Capsule ss) [Linzess] 290 Linaclotide Mcg (Linzess) Capsul 290 Mcg e Capsule Aspirin 81 Aspiri TABLET, 81 mg complet Daily White MG Delayed n CHEWABLE ed Plain s Release (Aspir Hospital Oral Tablet in 81 [Aspir-Low] Mg Aspirin Chewab (Aspirin 81 le*) Mg 81 Mg Chewable*) Chew 81 Mg Chew sitagliptin Sitagl TABLET 25 mg complet Daily White 25 MG Oral iptin ed [place] Tablet Phosph Hospital [Januvia] ate Sitagliptin (Januv Phosphate ia (Januvia 25MG*) 25MG*) 25 25 Mg Mg Tablet Tablet Levothyroxi Levoth TABLET 50 ug complet Daily White ne Sodium yroxin ed [place] 0.05 MG e Hospital Oral Tablet Sodium [Synthroid] (Unith Levothyroxi roid ne Sodium 50MCG (Unithroid Tab*) 50MCG Tab*) 50 Mcg 50 Mcg Tablet Tablet Insurance Providers Payer name Policy type Policy ID Covered Covered constitution party's Policy P [place] / Coverage constitution party ID relationship to [employer] Inf ormation type sargent MEDICARE [id number] [employer]ET[employer] O [id number] MEDICARE [id number] A Results ID Date Data Source [id number] 03/04/2018 11:33:00 AM [facility] Hazard Mitigation Officer: EVELINE COKER NT Name Value Range Interpretation Description Data Sup porting Code Source(s) Document(s ) Glucose 221 74-106 Above high normal METER GLUCOSE White Pl ains [Mass/volume] mg/dL Hospital in Capillary blood by Glucometer Procedure Social History Code Duration Value Status Description Data Source(s ) Smoking Ex-smoker completed Ex-smoker (finding) [facility] (finding) Patient Treatment Plan of Care Planned Activity Planned Date Details Description Data Source (s) benzonatate 100 MG Oral 03/04/2018 12:00:00 [place] Capsule [Tessalon Perles] AM EST Ho spital Spironolactone 25 MG Oral Wh ite [place] Tablet Hospital sitagliptin 25 MG Oral [place] Tablet [Januvia] Hospital Pravastatin Sodium 40 MG Whi te [place] Oral Tablet [Pravachol] Hosp ital 24 HR metoprolol succinate W geovanny [place] 50 MG Extended Release Hospi darling Oral Tablet [Toprol] linaclotide 0.29 MG Oral Whi te [place] Capsule [Linzess] [facility] Levothyroxine Sodium 0.05 Wh ite [place] MG Oral Tablet [Synthroid] H ospital Furosemide 40 MG Oral [place] Tablet Hospital Furosemide 40 MG Oral [place] Tablet [facility] febuxostat 40 MG Oral [place] Tablet [Uloric] Hospital Aspirin 81 MG Delayed [place] Release Oral Tablet Hospital [Aspir-Low] apixaban 2.5 MG Oral White P l[place] Tablet [Eliquis] Hospital
[2019-12-21 11:03] LABS: VENOUS BASE EXCESS 11.9 mmol/L (-2-2); VENOUS O2 SATURATION 45.5 % (70-80); VENOUS PCO2 69.7 mmHg (38-52); VENOUS PH 7.38 (7.310-7.410)
[2019-12-21 11:09] LABS: BASO % 0.9 % (0-2.0); EOS % 5.5 % (0-4.5); HEMATOCRIT 39.4 % (35.4-49); HEMOGLOBIN 13.6 GM/dL (11.7-16.9); LYMPH % 15.5 % (8-40); MCH 31.2 pg (25.7-33.7); MCHC 34.4 g/dl (32.0-35.9); MEAN CELL VOLUME 90.7 fl (80-96); MONO % 10.4 % (3.8-10.2); NEUT % 67.7 % (42.8-82.8); PLATELET COUNT 182 K/MM3 (134-434); RBC 4.35 M/mm3 (4.00-5.60); RDW 18.8 % (11.9-15.9); WHITE BLOOD COUNT 10.5 K/mm3 (4.0-10.0)
[2019-12-21 11:50] LABS: ALBUMIN 3.5 g/dl (3.4-5.0); BILIRUBIN,TOTAL 0.6 mg/dL (0.2-1); BLOOD UREA NITROGEN 57.9 mg/dL (7-18); CALCIUM 12.3 mg/dL (8.5-10.1); CREATININE 2.3 mg/dL (0.55-1.3); N-TERMINAL BNP 885.3 pg/ml (5-450); POTASSIUM 4.1 mmol/L (3.5-5.1); TOT PROT 7.4 g/dl (6.4-8.2)
[2019-12-21 11:59] LABS: INR 1.14 (0.83-1.09); PROTHROMBIN TIME (PATIENT) 13.5 SEC (9.7-13.0)
[2019-12-21 12:02] LABS: ACTIVATED PTT 31.7 SECONDS (25.2-36.5)
[2019-12-21 12:06] LABS: EPI CELLS 2 /uL (0-25.1); HYALINE CASTS 2 /uL (0-3.1); URINE APPEARANCE CLOUDY; URINE BACTERIA 369 /uL (0-1359); URINE BILIRUBIN NEGATIVE (NEGATIVE); URINE COLOR YELLOW; URINE GLUCOSE (UA) NEGATIVE (NEGATIVE); URINE KETONE NEGATIVE (NEGATIVE); URINE LEUK ESTERASE 3+ (NEGATIVE); URINE NITRITE NEGATIVE (NEGATIVE); URINE PROTEIN NEGATIVE (NEGATIVE); URINE RBC 8 /uL (0-23.9); URINE UROBILINOGEN 0.2 mg/dL (0.2-1.0); URINE WBC 731 /uL (0-25.8)
[2019-12-21] MEDS ORDERED: SODIUM CHLORIDE 0.9% 500 ML INFUS.BAG IV ONE (12:14)
[2019-12-21] MEDS ORDERED: CEFTRIAXONE 1,000 MG in DEXTROSE 5%-WATER - 50 ML IVPB ONE (13:04)
[2019-12-21] MEDS ORDERED: CEFTRIAXONE 1 GM/50 ML BAG ONE (13:27)
--- NOTE | 2019-12-21 13:38 | PDOC ---
Documentation entered by Jhonny Norwood SCRIBE, acting as scribe for Mj Walton MD. Mj Walton MD: This documentation has been prepared by the Cuco leal Angel, SCRIBE, under my direction and personally reviewed by me in its entirety. I confirm that the documentation accurately reflects all work, treatment, procedures, and medical decision making performed by me. Attending Attestation - Resident Resident Name: NatiandreinaAndrew - ED Attending Attestation I have performed the following: I have examined & evaluated the patient, The case was reviewed & discussed with the resident, I agree w/resident's findings & plan, Exceptions are as noted - HPI HPI: 12/21/19 13:01 The patient is an 89 year old male with a significant past medical history of CABG, CHF, AFIB, IDDM, ischemic cardiomyopathy with EF 35-40%, chronic ILD (On 3L 24/7), pulmonary HTN, and CKD who presents to the ED accompanied by son, sent into the ED by for Ca 12.5 and hypotension. The patient states for the last few days hes been experiencing weakness and cough non-stop. The patient denies any abdominal pain or chest pain. - Physicial Exam PE: 12/21/19 12:40 GENERAL: The patient is awake, alert, and fully oriented, Nontoxic - in no acute distress. HEAD: Normocephalic, atraumatic. EYES: extraocular movements intact, sclera anicteric, conjunctiva clear. ENT: Normal voice, Moist mucous membranes. NECK: Normal range of motion, supple LUNGS: Scattered rales bilaterally, no acute respiratory distress HEART: Regular rate and rhythm, normal S1 and S2 without murmur, rub or gallop. ABDOMEN: Soft, obese abdomen, nontender, No guarding, no rebound. No CVA tenderness EXTREMITIES: Normal range of motion, no edema. NEUROLOGICAL: No facial assymetry, Normal speech, trace edema bilaterally PSYCH: Normal mood, normal affect. SKIN: Warm, Dry, normal turgor, - Medical Decision Making 12/21/19 12:40 Patient's blood work was reviewed Noted for hypercalcemia, anticipate admission for further management for further evaluation. The patient's creatinine is also elevated but this is likely baseline for him Heart Score/ECG Review - ECG Impressions Comment:: 12/21/19 12:45 Twelve-lead EKG was performed and reviewed by me. Irregularly irregular, rate of 79 Impression atrial fibrillation Discharge - Discharge Information Problems reviewed: Yes Clinical Impression/Diagnosis: Hypercalcemia, Cough Condition: Stable - Follow up/Referral - Patient Discharge Instructions - Post Discharge Activity
[2019-12-21 15:52] VITALS: BMI 41.2
[2019-12-21] MEDS: ALBUTEROL SO4 HFA INHALER IH SCH ×3 (16:47→22:08)
--- NOTE | 2019-12-21 17:22 | PN ---
Teaching Attending Note Name of Resident: Boogie Hughes ATTENDING PHYSICIAN STATEMENT I saw and evaluated the patient. I reviewed the resident's note and discussed the case with the resident. I agree with the resident's findings and plan as documented. SUBJECTIVE: 89yo M with h/o HTN, HLD, Afib (on Eliquis), CAD s/p CABG (remote hx), mixed CHF, CKD, Aortic stenosis, COPD (4L NC at home), OSAS (Bipap 15/8 nightly), Asbestosis, Type 2 DM, BPH, gout, and mild dementia who presents to the ED from Dr. Moseley's office. Patient was noted to have labs performed with hypercalcemia and was sent to the ER for further evaluation. Upon workup in the ER patient was found to have lactate of 2.1, hypercalcemia of 12. In addition, patient was noted to have UA with pyuria without significant symptoms. Of note, patient endorses cough for 2 weeks with increasing productivity. In ER he was given 1LNS due to hypotension and hypercalcemia. Currently patient with son at bedside who reports accurate HPI as above. Patient has no other complaints at this time. PMHx: As above FamHx: Noncontributory Vital Signs Temperature 98.4 F 12/21/19 15:00 Pulse Rate 88 12/21/19 15:00 Respiratory Rate 20 12/21/19 15:00 Blood Pressure 104/59 L 12/21/19 15:00 O2 Sat by Pulse Oximetry (%) 100 12/21/19 15:00 PE: Gen: NAD, awake, alert HEENT: NC/AT, EOMI, YELENA, sclera anicteric, dry mucosa, 4LNC Neck: No jvd LUNG: inspiratory squeaking with end-expiratory wheezes at bases, no overt rales appreciated. 96% on 4LNC CARD: Irregularly irregular with normal rate. 3/6 systolic murmur heard at the apex ABD: Soft, NT/ND, + BS, no rebound EXT: No pitting edema appreciated, early venous stasis changes noted. CBC, BMP 12/21/19 10:50 12/21/19 10:50 12/21/19 12/21/19 12/21/19 10:50 10:50 12:00 VBG pH 7.380 POC VBG pCO2 69.7 H POC VBG pO2 26.6 L Lactic Acid 2.1 H Urine pH 7.0 Ur Specific [place] 1.006 L Ur Leukocyte Esterase 3+ H Urine WBC (Auto) 731 Urine RBC (Auto) 8 U Epithel Cells (Auto) 2 ASSESSMENT AND PLAN: Hypercalcemia of unclear etiology Pyuria likely complicated UTI R/o atelectasis vs. 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 atelectasis given increased sputum production --Repeat lactic acid and calcium after 1L NS given in ED --If remains elevated can use very gentle IV hydration with serial monitoring of fluid status --If resolves can hold off on further IV fluid --Hold torsemide dose tonight and can resume BID dosing tomorrow if fluid status permits --Continue coverage with Rocephin IVPB and if pulmonary process is identified can add Zithromax --BiPap 15/8 tonight (home PAP) --Continue 4LNC --Maintain SpO2 88-95% --PTH and vitamin D ordered for tomorrow --Continue home meds with change to torsemide as above DVT PPX: already on AC Dispo: M/S; monitor fluid status Gerardo Pierre DO - IM
[2019-12-21] MEDS: INSULIN SLIDING SCALE (NOVOLOG) 1 VIAL SQ SCH ×2 (18:02→21:44)
--- NOTE | 2019-12-21 20:06 | HP ---
CHIEF COMPLAINT: sent by PCP for hypercalcemia PCP: Pradip HISTORY OF PRESENT ILLNESS: 89M with PMH CAD, CABG(qudruple bypass), CHF, Afib(Eliquis), IDDM, chronic ILD (3L O2), pulmonary HTN, CKD, sent by PCP(Dr. Moseley) for evaluation of labwork from 12/20/2019 showing hypercalcemia. Pt denies confusion, abdominal pain, urinary pain, urinary frequency, constipation. Pt endorses cough with white sputum for the past 2-3weeks. Pt's son at bedside thinks that the pt has been getting deconditioned over the past 6months, growing weaker. Pt uses a hospital bed at home, with bed upright. Uses nightly CPAP. ER course was notable for: -Tmax 98.4, HR 70-80s, initial BP 86/56 then 122/104 after IVF; 96% on 4L - WBC 10.5 - VBG pH 7.380, CO2 69.7 - Na 132 - HCO3 40 - Cr 2.3(near baseline) - trop 0.02 - Ca 12.3 - lactic acid 2.1 - UA: LE 3+, WBC 731, bact 369, epith 2 - ECG AFIB, HR 79, QRS 120, QTc 442, wide QRS complexes, no GUILLERMINA/D or TWI - CXR: unchanged from Apr. Large heart, focal pleural thickening along Left chest wall with blunting of the Left angle. Right anle is sharp. Right midlung granuloma. - BCX/UCX --pending - Ceftriaxone 1g, NS 1L Recent Travel: none PAST MEDICAL HISTORY: as above PAST SURGICAL HISTORY: open heart surgery(quadruple bypass) Social History: Smoking: quit tobacco 35ys prior Alcohol: last wine was 10ys prior Drugs: denies Allergies No Known Allergies Allergy (Verified 12/21/19 10:03) PER PT AND FAMILY HOME MEDICATIONS: Home Medications Medication Instructions Recorded Sitagliptin Phosphate [Januvia -] 25 mg PO DAILY@0700 #90 tab 10/14/14 Spironolactone [Aldactone -] 25 mg PO DAILY #30 tablet 03/31/17 Aspirin 81 mg PO DAILY 04/10/17 Insulin Glargine,Hum.rec.anlog 40 unit SQ DAILY 04/10/17 [Lantus] Metoprolol Succinate [Toprol Xl] 50 mg PO BID 02/20/18 Apixaban [Eliquis -] 2.5 mg PO BID 03/30/18 Acetaminophen [Tylenol .Regular 650 mg PO Q8H PRN tablet 01/26/19 Strength -] Colchicine [Colcrys] 0.6 mg PO DAILY cap 01/26/19 Insulin Sliding Scale [Novolog 1 vial SQ ACHS units 01/26/19 Vial Sliding Scale -] Methyl Salicylate/Menthol Oint 1 applic TP BID PRN applic 01/26/19 [Analgesic [place] -] Nitroglycerin Sublingual 0.4 mg SL Q5M PRN tab 01/26/19 [Nitrostat -] Tamsulosin HCl [Flomax -] 0.4 mg PO DAILY@0830 cap.er.24h 01/26/19 Insulin (Levemir) [Levemir Vial] 40 units SQ BID@0700,2200 units 05/14/19 Torsemide [Demadex -] 100 mg PO BIDLASIX tablet 05/14/19 REVIEW OF SYSTEMS CONSTITUTIONAL: generalized weakness Absent: fever, chills, diaphoresis, , malaise, loss of appetite, weight change HEENT: Absent: rhinorrhea, nasal congestion, throat pain, throat swelling, difficulty swallowing, mouth swelling, ear pain, eye pain, visual changes CARDIOVASCULAR: Absent: chest pain, syncope, palpitations, irregular heart rate, lightheadedness, peripheral edema RESPIRATORY: cough, white sputum Absent: shortness of breath, dyspnea with exertion, orthopnea, wheezing, stridor, hemoptysis GASTROINTESTINAL: Absent: abdominal pain, abdominal distension, nausea, vomiting, diarrhea, constipation, melena, hematochezia GENITOURINARY: Absent: dysuria, frequency, urgency, hesitancy, hematuria, flank pain, genital pain MUSCULOSKELETAL: Absent: myalgia, arthralgia, joint swelling, back pain, neck pain SKIN: Absent: rash, itching, pallor HEMATOLOGIC/IMMUNOLOGIC: Absent: easy bleeding, easy bruising, lymphadenopathy, frequent infections ENDOCRINE: Absent: unexplained weight gain, unexplained weight loss, heat intolerance, cold intolerance NEUROLOGIC: Absent: headache, focal weakness or paresthesias, dizziness, unsteady gait, seizure, mental status changes, bladder or bowel incontinence PSYCHIATRIC: Absent: anxiety, depression, suicidal or homicidal ideation, hallucinations. PHYSICAL EXAMINATION Vital Signs - 24 hr 12/21/19 12/21/19 12/21/19 10:04 10:58 11:33 Temperature 97.8 F Pulse Rate 87 Pulse Rate [ 85 Right] Respiratory 18 Rate Blood Pressure 86/56 L Blood Pressure 122/104 H [Right Arm] O2 Sat by Pulse 96 96 100 Oximetry (%) 12/21/19 12/21/19 12/21/19 11:38 14:28 14:33 Temperature 97.5 F L Pulse Rate Pulse Rate [ 70 Right] Respiratory 18 18 Rate Blood Pressure Blood Pressure 92/54 L 102/55 L [Right Arm] O2 Sat by Pulse 100 100 Oximetry (%) 12/21/19 15:00 Temperature 98.4 F Pulse Rate 88 Pulse Rate [ Right] Respiratory 20 Rate Blood Pressure 104/59 L Blood Pressure [Right Arm] O2 Sat by Pulse 100 Oximetry (%) GENERAL: Awake, alert, and fully oriented, in no acute distress. HEAD: Normal with no signs of trauma. EYES: sclera anicteric, conjunctiva clear. No lid lag. EARS, NOSE, THROAT: Ears normal, nares patent, oropharynx clear without exudates. Dry mucous membranes. NECK: Normal range of motion, supple without lymphadenopathy, JVD, or masses. LUNGS: Breath sounds equal. Mild b/l expiratory wheezes. No accessory muscle use. Comfortable on 4L O2 HEART: iiregular rhythm, normal rate; normal S1 and S2 without murmur, rub or gallop. Well-healed midline sternotomy wound ABDOMEN: Obese abdomen. Soft, nontender, not distended, normoactive bowel sounds, no guarding, no rebound. MUSCULOSKELETAL: Normal range of motion at all joints. No bony deformities or tenderness. No CVA tenderness. UPPER EXTREMITIES: 2+ pulses, warm, well-perfused. No cyanosis. No clubbing. No peripheral edema. LOWER EXTREMITIES: 2+ pulses, warm, well-perfused. No calf tenderness. No peripheral edema. NEUROLOGICAL: Normal speech. Moving all extremities w/o issues PSYCHIATRIC: Cooperative. Good eye contact. Appropriate mood and affect. SKIN: Warm, dry, normal turgor, no rashes or lesions noted, normal capillary refill. Laboratory Results - last 24 hr 12/21/19 12/21/19 12/21/19 10:50 10:50 10:50 WBC 10.5 H RBC 4.35 Hgb 13.6 Hct 39.4 MCV 90.7 MCH 31.2 MCHC 34.4 RDW 18.8 H Plt Count 182 MPV 8.0 D Absolute Neuts (auto) 7.1 Neutrophils % 67.7 Lymphocytes % 15.5 D Monocytes % 10.4 H Eosinophils % 5.5 H D Basophils % 0.9 Nucleated RBC % 0 PT with INR 13.50 H INR 1.14 H PTT (Actin FS) 31.7 VBG pH 7.380 POC VBG pCO2 69.7 H POC VBG pO2 26.6 L VBG HCO3 40.3 H VBG O2 Sat ([place]) 45.5 L VBG Base Excess 11.9 H Sodium Potassium Chloride Carbon Dioxide Anion Gap BUN Creatinine Est GFR (CKD-EPI)AfAm Est GFR (CKD-EPI)NonAf POC Glucometer Random Glucose Lactic Acid Calcium Total Bilirubin AST ALT Alkaline Phosphatase Troponin I B-Natriuretic Peptide Total Protein Albumin Urine Color Urine Appearance Urine pH Ur Specific [place] Urine Protein Urine Glucose (UA) Urine Ketones Urine Blood Urine Nitrite Urine Bilirubin Urine Urobilinogen Ur Leukocyte Esterase Urine WBC (Auto) Urine RBC (Auto) Urine Casts (Auto) U Epithel Cells (Auto) Urine Bacteria (Auto) 12/21/19 12/21/19 12/21/19 10:50 10:50 12:00 WBC RBC Hgb Hct MCV MCH MCHC RDW Plt Count MPV Absolute Neuts (auto) Neutrophils % Lymphocytes % Monocytes % Eosinophils % Basophils % Nucleated RBC % PT with INR INR PTT (Actin FS) VBG pH POC VBG pCO2 POC VBG pO2 VBG HCO3 VBG O2 Sat ([place]) VBG Base Excess Sodium 132 L Potassium 4.1 Chloride 85 L Carbon Dioxide 40 H Anion Gap 7 L BUN 57.9 H Creatinine 2.3 H Est GFR (CKD-EPI)AfAm 28.33 Est GFR (CKD-EPI)NonAf 24.44 POC Glucometer Random Glucose 135 H Lactic Acid 2.1 H Calcium 12.3 H Total Bilirubin 0.6 AST 40 H ALT 58 Alkaline Phosphatase 92 Troponin I 0.02 B-Natriuretic Peptide 885.3 H Total Protein 7.4 Albumin 3.5 Urine Color Yellow Urine Appearance Cloudy Urine pH 7.0 Ur Specific [place] 1.006 L Urine Protein Negative Urine Glucose (UA) Negative Urine Ketones Negative Urine Blood Negative Urine Nitrite Negative Urine Bilirubin Negative Urine Urobilinogen 0.2 Ur Leukocyte Esterase 3+ H Urine WBC (Auto) 731 Urine RBC (Auto) 8 Urine Casts (Auto) 2 U Epithel Cells (Auto) 2 Urine Bacteria (Auto) 369 12/21/19 12/21/19 12/21/19 17:00 17:00 17:11 WBC RBC Hgb Hct MCV MCH MCHC RDW Plt Count MPV Absolute Neuts (auto) Neutrophils % Lymphocytes % Monocytes % Eosinophils % Basophils % Nucleated RBC % PT with INR INR PTT (Actin FS) VBG pH POC VBG pCO2 POC VBG pO2 VBG HCO3 VBG O2 Sat ([place]) VBG Base Excess Sodium Potassium Chloride Carbon Dioxide Anion Gap BUN Creatinine Est GFR (CKD-EPI)AfAm Est GFR (CKD-EPI)NonAf POC Glucometer 111 Random Glucose Lactic Acid 1.0 Calcium 11.6 H Total Bilirubin AST ALT Alkaline Phosphatase Troponin I B-Natriuretic Peptide Total Protein Albumin Urine Color Urine Appearance Urine pH Ur Specific [place] Urine Protein Urine Glucose (UA) Urine Ketones Urine Blood Urine Nitrite Urine Bilirubin Urine Urobilinogen Ur Leukocyte Esterase Urine WBC (Auto) Urine RBC (Auto) Urine Casts (Auto) U Epithel Cells (Auto) Urine Bacteria (Auto) ASSESSMENT/PLAN: 89M with PMH CAD, CABG(qudruple bypass), CHF, Afib(Eliquis), IDDM, chronic ILD (3L O2), pulmonary HTN, CKD, sent by PCP(Dr. Moseley) for evaluation of labwork from 12/20/2019 showing hypercalcemia. Labwork also notable for UTI, and other electrolyte derrangments. Admitted to [facility] for treatment of hypercalcemia and UTI #Complicated UTI w/o history of ESBL > WBC 10.5 > UA: LE 3+, WBC 731, bact 369, epith 2 - abx regimen: --ceftriaxone, day 1 # lactic acidosis --improving after IVF > Lactic Acid 2.1, 1.0 - will defer continued IVF until pulmonary edema is r/o #hypercalcemia --unknown etiology > PTH --pending > Ca 12.3, 11.6 --improving after IVF - will add continuous IVF if no signs of pulmonary congestion on CT chest - will defer Nephro consult for now #cough w/ white sputum --possible atelecatsis vs mild bronchitis; less likely pulmonary edema from CHF > CT chest to evaluate for pulmonary congestion - albuterol darlene then PRN - will add duonebs PRN when COVID neg - will defer steroids for now #hyponatremia --possibly 2/2 chronic torsemide usage - trend Na #chronic CHF --appears to be euvolemic, elevated BNP possibly related to CKD > BNP 885.3 - decresed Torsemid to QD for now - cw spironlactone #chronic CKD >Cr 2.3(near baseline) - trend #chronic IDDM - levemir 40U BID, will need to confirm w/ pharm - ISS #chronic Afib --currently rate controlled > [id number] ~6 - cw home Eliquis #chronic ILD - cw home O2 - CPAP at night #chronic BPH -cw home flomax FEN - holding off on IVF until CT Chest r/o pulmonary edema - renal/sodium diet DVT PPX - cw home Eliquis Family Medical History Family History: Denies Visit type - Medication Review Med list reviewed for High Risk Meds patients 65 and older: No (pharmacy closed, will need full Med Rec) - Emergency Visit Emergency Visit: Yes ED Registration Date: 12/21/19 Care time: The patient presented to the Emergency Department on the above date and was hospitalized for further evaluation of their emergent condition. - New Patient This patient is new to me today: Yes Date on this admission: 12/21/19 - Critical Care Critical Care patient: No ATTENDING PHYSICIAN STATEMENT I saw and evaluated the patient. I reviewed the resident's note and discussed the case with the resident. I agree with the resident's findings and plan as documented. SUBJECTIVE: OBJECTIVE: ASSESSMENT AND PLAN:
[2019-12-21] MEDS: INSULIN (LEVEMIR) 100 UNITS/ML UNITS SQ SCH (21:45)
[2019-12-21] MEDS: guaiFENesin 600 MG TABLET.ER (FP) PO SCH (21:45)
[2019-12-21] MEDS: APIXABAN 2.5 MG TABLET PO SCH (21:45)
[2019-12-21] MEDS ORDERED: HEPARIN NA (PORCINE) 5,000 UNITS/ML 1ML VIAL SQ SCH (22:00)
[2019-12-22] MEDS ORDERED: SODIUM CHLORIDE 1,000 ML IV SCH ×2 (02:00→16:04)
[2019-12-22] MEDS: ALBUTEROL SO4 HFA INHALER IH SCH ×3 (02:56→10:20)
[2019-12-22] MEDS: INSULIN (LEVEMIR) 100 UNITS/ML UNITS SQ SCH ×2 (06:34→22:00)
[2019-12-22] MEDS: INSULIN SLIDING SCALE (NOVOLOG) 1 VIAL SQ SCH ×4 (06:35→21:58)
[2019-12-22 08:16] LABS: HEMOGLOBIN 13.1 GM/dL (11.7-16.9); MCH 30.6 pg (25.7-33.7); MCHC 33.6 g/dl (32.0-35.9); PLATELET COUNT 165 K/MM3 (134-434); RBC 4.29 M/mm3 (4.00-5.60); RDW 18.8 % (11.9-15.9); WHITE BLOOD COUNT 8.8 K/mm3 (4.0-10.0)
[2019-12-22 08:47] LABS: ALBUMIN 3.1 g/dl (3.4-5.0); BILIRUBIN,TOTAL 0.5 mg/dL (0.2-1); BLOOD UREA NITROGEN 55.1 mg/dL (7-18); CALCIUM 11.7 mg/dL (8.5-10.1); CREATININE 2.3 mg/dL (0.55-1.3); PHOSPHOROUS 3.6 mg/dL (2.5-4.9); POTASSIUM 3.8 mmol/L (3.5-5.1); TOT PROT 6.5 g/dl (6.4-8.2)
[2019-12-22] MEDS ORDERED: CEFTRIAXONE 1 GM in DEXTROSE 5%-WATER - 50 ML IVPB SCH (10:00)
[2019-12-22] MEDS ORDERED: cefTRIAXone SODIUM 1 GM VIAL ONE (10:07)
[2019-12-22] MEDS ORDERED: DEXTROSE 5%-WATER - 50 ML IVPB ONE (10:07)
[2019-12-22] MEDS ORDERED: PT OWN MED DRAWER 7, Y5N ONE ×5 (10:07→21:15)
[2019-12-22] MEDS: APIXABAN 2.5 MG TABLET PO SCH ×2 (10:12→21:59)
[2019-12-22] MEDS: guaiFENesin 600 MG TABLET.ER (FP) PO SCH ×2 (10:12→21:59)
[2019-12-22] MEDS: ASPIRIN 81 MG CHEWABLE TABLETS PO SCH (10:12)
[2019-12-22] MEDS: SPIRONOLACTONE 25 MG TABLET PO SCH (10:13)
[2019-12-22] MEDS: TAMSULOSIN HCL 0.4 MG CAP PO SCH (10:13)
[2019-12-22] MEDS: COLCHICINE 0.6 MG CAP PO SCH (10:13)
--- NOTE | 2019-12-22 11:42 | CON.PULM ---
Consult Consult Specialty:: PULMONARY Referred by:: Dr Ashton Reason for Consultation:: lung nodule - History of Present Illness Chief Complaint: hypercalcemia History of Present Illness: 89yo male with h/o HTN, DM, hyperlipidemia, CAD s/p CABG, LV systolic/diastolic dysfunction, CKD, aortic stenosis, COPD, chronic hypoxic respiratory failure on home O2, JUAN who was sent from his PMD's office after noted to be hypercalcemic on routine labs. Also noted to have pyuria and UA c/w UTI. Started on IVF. CT chest done showing a right apical nodule unchanged from September. 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 bronchiectasis.). No: Asthma, Cancer, Pulmonary Embolus Gastrointestinal: Yes: Ulcerative Colitis (surgery), Other Renal/: Yes: Renal Inusuff, BPH Musculoskeletal: Yes: Osteoarthritis, Other (Neck/shoulder pain) Endocrine: Yes: Diabetes Mellitus - Past Surgical History Past Surgical History: Yes: CABG, Nephrectomy - Alcohol/Substance Use Hx Alcohol Use: No History of Substance Use: reports: None - Smoking History Smoking history: Former smoker Have you smoked in the past 12 months: No If you are a former smoker, when did you quit?: 66 years old - Social History Usual Living Arrangement: With Spouse ADL: Family Assistance 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 History of Recent Travel: No Home Medications - Allergies Allergies/Adverse Reactions: Allergies Allergy/AdvReac Type Severity Reaction Status Date / Time No Known Allergies Allergy Verified 12/21/19 10:03 - Home Medications Home Medications: Ambulatory Orders Sitagliptin Phosphate [Januvia -] 25 mg PO DAILY@0700 #90 tab 10/14/14 Spironolactone [Aldactone -] 25 mg PO DAILY #30 tablet 03/31/17 Aspirin 81 mg PO DAILY 04/10/17 Insulin Glargine,Hum.rec.anlog [Lantus] 40 unit SQ DAILY 04/10/17 Metoprolol Succinate [Toprol Xl] 50 mg PO BID 02/20/18 Apixaban [Eliquis -] 2.5 mg PO BID 03/30/18 Acetaminophen [Tylenol .Regular Strength -] 650 mg PO Q8H PRN tablet 01/26/19 Colchicine [Colcrys] 0.6 mg PO DAILY cap 01/26/19 Insulin Sliding Scale [Novolog Vial Sliding Scale -] 1 vial SQ ACHS units 01/26/19 Methyl Salicylate/Menthol Oint [Analgesic [place] -] 1 applic TP BID PRN applic 01/26/19 Nitroglycerin Sublingual [Nitrostat -] 0.4 mg SL Q5M PRN tab 01/26/19 Tamsulosin HCl [Flomax -] 0.4 mg PO DAILY@0830 cap.er.24h 01/26/19 Insulin (Levemir) [Levemir Vial] 40 units SQ BID@0700,2200 units 05/14/19 Torsemide [Demadex -] 100 mg PO BIDLASIX tablet 05/14/19 Review of Systems - Review of Systems Constitutional: denies: Chills, Fever Eyes: denies: Recent Change in Vision HENT: denies: Nasal Congestion, Throat Pain Neck: denies: Stiffness, Tenderness Cardiovascular: denies: Chest Pain, Shortness of Breath Respiratory: denies: Cough, Hemoptysis, Wheezing Gastrointestinal: denies: Abdominal Pain, Nausea, Vomiting Genitourinary: denies: Dysuria, Hematuria Endocrine: denies: Unexplained Weight Loss Physical Exam Vital Sings: Vital Signs Temperature 97.9 F 12/22/19 09:00 Pulse Rate 73 12/22/19 09:00 Respiratory Rate 20 12/22/19 09:00 Blood Pressure 135/54 L 12/22/19 09:00 O2 Sat by Pulse Oximetry (%) 100 12/22/19 09:00 Constitutional: Yes: Calm Eyes: Yes: Conjunctiva Clear, EOM Intact HENT: Yes: Atraumatic, Normocephalic Neck: Yes: Supple, Trachea Midline Cardiovascular: Yes: Regular Rate and Rhythm Respiratory: Yes: Diminished (at bases) ...Clubbing: No Gastrointestinal: Yes: Normal Bowel Sounds, Soft. No: Tenderness Edema: No Neurological: Yes: Alert, Oriented Labs: CBC, BMP 12/22/19 07:36 12/22/19 07:36 Imaging - Results Chest X-ray: Report Reviewed, Image Reviewed Cat Scan: Report Reviewed, Image Reviewed (bilateral apical calcifications, RUL nodule) Assessment/Plan Hypercalcemia Lung Nodule suspicious for malignancy UTI CAD s/p CABG Atrial Fibrillation LV Systolic/Diastolic Dysfunction COPD Chronic Hypoxic Respiratory Failure JUAN HTN DM Hyperlipidemia CKD - continue antibiotics - f/u cultures - IVF - monitor urine output, creatinine - lasix - monitor calcium level, f/u PTH - BETTY level as outpt - PET scan as outpt - rate controlled - continue anticoagulation Thank you for this consult Thomas Beckman MD
[2019-12-22] MEDS: TORSEMIDE 100 MG TABLET PO SCH ×2 (13:45→21:58)
--- NOTE | 2019-12-22 14:33 | PN ---
Physical Exam: SUBJECTIVE: Patient seen and examined OBJECTIVE: Vital Signs Period Temp Pulse Resp BP Sys/Junior Pulse Ox Last 24 Hr 97.5 F-98.4 F 70-98 18-20 102-135/54-62 95-100 GENERAL: The patient is awake, alert, and fully oriented, in no acute distress. HEAD: Normal with no signs of trauma. EYES: PERRL, extraocular movements intact, sclera anicteric, conjunctiva clear. No ptosis. ENT: Ears normal, nares patent, oropharynx clear without exudates, moist mucous membranes. NECK: Trachea midline, full range of motion, supple. LUNGS: Breath sounds equal, clear to auscultation bilaterally, no wheezes, no crackles, no accessory muscle use. HEART: Regular rate and rhythm, S1, S2 without murmur, rub or gallop. ABDOMEN: Soft, nontender, nondistended, normoactive bowel sounds, no guarding, no rebound, no hepatosplenomegaly, no masses. EXTREMITIES: 2+ pulses, warm, well-perfused, no edema. NEUROLOGICAL: Cranial nerves II through XII grossly intact. Normal speech, gait not observed. PSYCH: Normal mood, normal affect. SKIN: Warm, dry, normal turgor, no rashes or lesions noted Laboratory Results - last 24 hr 12/21/19 12/21/19 12/21/19 12:00 17:00 17:00 WBC RBC Hgb Hct MCV MCH MCHC RDW Plt Count MPV Sodium Potassium Chloride Carbon Dioxide Anion Gap BUN Creatinine Est GFR (CKD-EPI)AfAm Est GFR (CKD-EPI)NonAf POC Glucometer Random Glucose Lactic Acid 1.0 Calcium 11.6 H Phosphorus Magnesium Total Bilirubin AST ALT Alkaline Phosphatase Total Protein Albumin 25-OH Vitamin D Total COVID-19 (BLAISE) Not detected 12/21/19 12/21/19 12/22/19 17:11 21:43 06:30 WBC RBC Hgb Hct MCV MCH MCHC RDW Plt Count MPV Sodium Potassium Chloride Carbon Dioxide Anion Gap BUN Creatinine Est GFR (CKD-EPI)AfAm Est GFR (CKD-EPI)NonAf POC Glucometer 111 150 61 Random Glucose Lactic Acid Calcium Phosphorus Magnesium Total Bilirubin AST ALT Alkaline Phosphatase Total Protein Albumin 25-OH Vitamin D Total COVID-19 (BLAISE) 12/22/19 12/22/19 12/22/19 07:36 07:36 07:36 WBC 8.8 RBC 4.29 Hgb 13.1 Hct 39.0 MCV 91.0 MCH 30.6 MCHC 33.6 RDW 18.8 H Plt Count 165 MPV 8.0 Sodium 136 Potassium 3.8 Chloride 92 L Carbon Dioxide 37 H Anion Gap 7 L BUN 55.1 H Creatinine 2.3 H Est GFR (CKD-EPI)AfAm 28.33 Est GFR (CKD-EPI)NonAf 24.44 POC Glucometer Random Glucose 84 Lactic Acid Calcium 11.7 H Phosphorus 3.6 Magnesium 2.0 Total Bilirubin 0.5 AST 44 H ALT 55 Alkaline Phosphatase 76 Total Protein 6.5 Albumin 3.1 L 25-OH Vitamin D Total 27.5 L COVID-19 (BLAISE) 12/22/19 11:48 WBC RBC Hgb Hct MCV MCH MCHC RDW Plt Count MPV Sodium Potassium Chloride Carbon Dioxide Anion Gap BUN Creatinine Est GFR (CKD-EPI)AfAm Est GFR (CKD-EPI)NonAf POC Glucometer 169 Random Glucose Lactic Acid Calcium Phosphorus Magnesium Total Bilirubin AST ALT Alkaline Phosphatase Total Protein Albumin 25-OH Vitamin D Total COVID-19 (BLAISE) Active Medications Generic Name Dose Route Start Last Admin Trade Name Freq PRN Reason Stop Dose Admin Albuterol Sulfate 2 puff 12/21/19 15:00 12/22/19 10:20 Ventolin Hfa Inhaler - IH 12/22/19 14:59 2 inhaler Q4H JOE Administration Apixaban 2.5 mg 12/21/19 22:00 12/22/19 10:12 Eliquis - PO 2.5 mg BID JOE Administration Aspirin 81 mg 12/22/19 10:00 12/22/19 10:12 Asa - PO 81 mg DAILY JOE Administration Colchicine 0.6 mg 12/22/19 10:00 12/22/19 10:13 Colcrys PO 0.6 mg DAILY JOE Administration Guaifenesin 600 mg 12/21/19 22:00 12/22/19 10:12 Mucinex - PO 600 mg BID JOE Administration Ceftriaxone Sodium 1 gm/ 50 mls @ 100 mls/hr 12/22/19 10:00 12/22/19 10:12 Dextrose IVPB 100 mls/hr DAILY JOE Administration Sodium Chloride 1,000 mls @ 75 mls/hr 12/22/19 02:00 12/22/19 02:56 Normal Saline - IV 75 mls/hr ASDIR JOE Administration Insulin Aspart 1 vial 12/21/19 16:30 12/22/19 11:49 Novolog Vial Sliding Scale - SQ 2 units ACHS JOE Administration Protocol Insulin Detemir 25 units 12/22/19 08:16 Levemir Vial SQ BID@0700,2200 JOE Metoprolol Succinate 50 mg 12/21/19 22:00 12/22/19 10:13 Toprol Xl - PO 50 mg BID JOE Administration Spironolactone 25 mg 12/22/19 10:00 12/22/19 10:13 Aldactone - PO 25 mg DAILY JOE Administration Tamsulosin HCl 0.4 mg 12/22/19 08:30 12/22/19 10:13 Flomax - PO 0.4 mg DAILY@0830 JOE Administration Torsemide 100 mg 12/22/19 12:00 12/22/19 13:45 Demadex - PO 100 mg BID JOE Administration ASSESSMENT/PLAN: 89yo M with h/o HTN, HLD, Afib (on Eliquis), CAD s/p CABG (remote hx), mixed CHF, CKD, Aortic stenosis, COPD (4L NC at home), OSAS (Bipap 15/8 nightly), Asbestosis, Type 2 DM, BPH, gout, and mild dementia who presents to the ED from his PCP office for elevated calcium # Hypercalcemia likely 2/2 Malignancy -CT showing 1cm speculated nodule in Rt upper lobe, h/o smoking, h/o asbestos exposure -CT report: An irregular spiculated 1 cm right upper lobe pulmonary nodule is noted suspicious for primary neoplastic disease. This nodule appears unchanged in comparison to a recent CT study of 10/16/2019 although not present at the time of a more remote CT exam of 06/23/2016. No infiltrate is seen. Stable chronic trace loculated left pleural effusion within the lower chest which is unchanged in comparison to multiple prior exams. Bilateral pleural calcifications are noted suggestive of asbestos exposure. Note is again made of focal chronic left lower lobe atelectasis posteriorly. Multichamber cardiomegaly. Status post median sternotomy with CABG. Stable mildly prominent hyperplastic mediastinal lymph nodes. Stable 3 cm left adrenal adenoma. Biochemical evaluation is suggested if not previously performed -vit d low, PTH pending -aviva 11.7 -c/w IVF and torsemide -will need PET scan +/- biopsy and outpatient workup for malignancy -monitor i/o -case discussed with consults -pulmonary consult appreciated -nephrology consult appreciated HTN HLD CAD CHF (mixed HFpEF and HFrEF) CKD Aortic stenosis COPD JUAN DM BPH Gout Mild dementia Presbyacusis DVT prophylaxis - on full AC spoke with his son Sunday Barber, who's aware of current condition/findings and management options, the need for outpatient workup and possible findings were discussed in length, patient and his son expressed understanding and agreement with plan. Visit type - Emergency Visit Emergency Visit: Yes ED Registration Date: 12/21/19 Care time: The patient presented to the Emergency Department on the above date and was hospitalized for further evaluation of their emergent condition. - New Patient This patient is new to me today: Yes Date on this admission: 12/22/19 - Critical Care Critical Care patient: No - Discharge Referral Referred to [facility] Med P.C.: No - Medication Review Med list reviewed for High Risk Meds patients 65 and older: Yes (yes)
--- NOTE | 2019-12-22 15:05 | CONSULT ---
Consult Consult Specialty:: Nephrology Reason for Consultation:: hypercalcemia - History of Present Illness Chief Complaint: sent in for abnormal labs History of Present Illness: Pt is an 89 year old male with pmhx of cad, cabg, chf, a-fib, DM, ILD, pulm HTN, CKD who was sent in for abnormal labs. He was found to have hypercalcemia and I was called to evaluate him. He denies shortness of breath. He denies cough. He has remote history of smoking however he has quit. He was found to have a 1 cm right upper lobe lung lesion suspicious for neoplasm. HE denies weight loss. He is hard of hearing. 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 bronchiectasis.). No: Asthma, Cancer, Pulmonary Embolus Gastrointestinal: Yes: Ulcerative Colitis (surgery), Other Renal/: Yes: Renal Inusuff, BPH Musculoskeletal: Yes: Osteoarthritis, Other (Neck/shoulder pain) Endocrine: Yes: Diabetes Mellitus - Past Surgical History Past Surgical History: Yes: CABG, Nephrectomy - Alcohol/Substance Use Hx Alcohol Use: No History of Substance Use: reports: None - Smoking History Smoking history: Former smoker Have you smoked in the past 12 months: No If you are a former smoker, when did you quit?: 66 years old - Social History Usual Living Arrangement: With Spouse ADL: Family Assistance 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 History of Recent Travel: No Home Medications - Allergies Allergies/Adverse Reactions: Allergies Allergy/AdvReac Type Severity Reaction Status Date / Time No Known Allergies Allergy Verified 12/21/19 10:03 - Home Medications Home Medications: Ambulatory Orders Sitagliptin Phosphate [Januvia -] 25 mg PO DAILY@0700 #90 tab 10/14/14 Spironolactone [Aldactone -] 25 mg PO DAILY #30 tablet 03/31/17 Aspirin 81 mg PO DAILY 04/10/17 Insulin Glargine,Hum.rec.anlog [Lantus] 40 unit SQ DAILY 04/10/17 Metoprolol Succinate [Toprol Xl] 50 mg PO BID 02/20/18 Apixaban [Eliquis -] 2.5 mg PO BID 03/30/18 Acetaminophen [Tylenol .Regular Strength -] 650 mg PO Q8H PRN tablet 01/26/19 Colchicine [Colcrys] 0.6 mg PO DAILY cap 01/26/19 Insulin Sliding Scale [Novolog Vial Sliding Scale -] 1 vial SQ ACHS units 01/26/19 Methyl Salicylate/Menthol Oint [Analgesic [place] -] 1 applic TP BID PRN applic 01/26/19 Nitroglycerin Sublingual [Nitrostat -] 0.4 mg SL Q5M PRN tab 01/26/19 Tamsulosin HCl [Flomax -] 0.4 mg PO DAILY@0830 cap.er.24h 01/26/19 Insulin (Levemir) [Levemir Vial] 40 units SQ BID@0700,2200 units 05/14/19 Torsemide [Demadex -] 100 mg PO BIDLASIX tablet 05/14/19 Family Medical History Family History: Denies Review of Systems - Review of Systems Constitutional: reports: No Symptoms Eyes: reports: No Symptoms HENT: reports: No Symptoms Neck: reports: No Symptoms Cardiovascular: reports: No Symptoms Respiratory: reports: No Symptoms Gastrointestinal: reports: No Symptoms Genitourinary: reports: No Symptoms Musculoskeletal: reports: No Symptoms Integumentary: reports: No Symptoms Neurological: reports: No Symptoms Endocrine: reports: No Symptoms Hematology/Lymphatic: reports: No Symptoms Psychiatric: reports: No Symptoms Physical Exam Vital Signs: Vital Signs Temperature 97.9 F 12/22/19 09:00 Pulse Rate 73 12/22/19 09:00 Respiratory Rate 20 12/22/19 09:00 Blood Pressure 135/54 L 12/22/19 09:00 O2 Sat by Pulse Oximetry (%) 100 12/22/19 09:00 Constitutional: Yes: Calm Eyes: Yes: Conjunctiva Clear HENT: Yes: Atraumatic Neck: Yes: Supple Cardiovascular: Yes: S1, S2 Gastrointestinal: Yes: Soft Musculoskeletal: Yes: WNL Edema: Yes Edema: LLE: 1+, RLE: 1+ Neurological: Yes: Oriented Psychiatric: Yes: Oriented Labs: CBC, BMP 12/22/19 07:36 12/22/19 07:36 Imaging - Results Cat Scan: Report Reviewed Problem List - Problems (1) Hypercalcemia Code(s): E83.52 - HYPERCALCEMIA Assessment/Plan Current Medications Generic Name Dose Route Start Last Admin Trade Name Vincenzo PRN Reason Stop Dose Admin Apixaban 2.5 mg 12/21/19 22:00 12/22/19 10:12 Eliquis - PO 2.5 mg BID JOE Administration Aspirin 81 mg 12/22/19 10:00 12/22/19 10:12 Asa - PO 81 mg DAILY JOE Administration Colchicine 0.6 mg 12/22/19 10:00 12/22/19 10:13 Colcrys PO 0.6 mg DAILY JOE Administration Guaifenesin 600 mg 12/21/19 22:00 12/22/19 10:12 Mucinex - PO 600 mg BID JOE Administration Sodium Chloride 1,000 mls @ 75 mls/hr 12/22/19 02:00 12/22/19 02:56 Normal Saline - IV 75 mls/hr ASDIR JOE Administration Insulin Aspart 1 vial 12/21/19 16:30 12/22/19 11:49 Novolog Vial Sliding Scale - SQ 2 units ACHS [facility] Administration Protocol Insulin Detemir 25 units 12/22/19 08:16 Levemir Vial SQ BID@0700,2200 [facility] Metoprolol Succinate 50 mg 12/21/19 22:00 12/22/19 10:13 Toprol Xl - PO 50 mg BID JOE Administration Spironolactone 25 mg 12/22/19 10:00 12/22/19 10:13 Aldactone - PO 25 mg DAILY JOE Administration Tamsulosin HCl 0.4 mg 12/22/19 08:30 12/22/19 10:13 Flomax - PO 0.4 mg DAILY@0830 [facility] Administration Torsemide 100 mg 12/22/19 12:00 12/22/19 13:45 Demadex - PO 100 mg BID JOE Administration Laboratory Tests 05/13/19 12/21/19 12/22/19 10:05 10:50 07:36 Creatinine 2.4 H 2.3 H 25-OH Vitamin D Total 27.5 L PTH Intact 12/22/19 12/22/19 07:36 07:36 Creatinine 2.3 H 25-OH Vitamin D Total PTH Intact Pending Impression 1. hypercalcemia 2. lung mass 3. DM 4. CHF 5. ILD 6. HTN 7. CKD 8. Pulm HTN Plan - renal function is stable - calcium elevated, follow pth level - further calcium management pending pth level - lung nodule to be evaluated by pulm - called and spoke to Sunday and his on the phone, pt will follow up as outpt to monitor calcium levels. In the meantime family will discuss GOC and further management of lung mass - pulm input appreciated - discussed with medical team
[2019-12-22] MEDS ORDERED: FUROSEMIDE 40 MG/4 ML INJECTABLE VIAL IVPUSH ONE (16:05)
[2019-12-22] MEDS ORDERED: INSULIN (NOVOLOG) ASPART 100 UNITS/ML 10ML VIAL ONE (17:52)
[2019-12-22] MEDS ORDERED: INSULIN (LEVEMIR) 100 UNITS/ML UNITS SQ ONE (17:52)
[2019-12-23] MEDS ORDERED: ALBUTEROL SO4 HFA INHALER IH ONE (05:36)
[2019-12-23] MEDS: INSULIN SLIDING SCALE (NOVOLOG) 1 VIAL SQ SCH (06:03)
[2019-12-23] MEDS: INSULIN (LEVEMIR) 100 UNITS/ML UNITS SQ SCH (06:03)
[2019-12-23 06:05] VITALS: PULSE 71
[2019-12-23] MEDS ORDERED: INSULIN (LEVEMIR) 100 UNITS/ML UNITS SQ ONE (07:04)
[2019-12-23 08:02] LABS: ALBUMIN 3.2 g/dl (3.4-5.0); BILIRUBIN,TOTAL 0.5 mg/dL (0.2-1); CREATININE 2.2 mg/dL (0.55-1.3); TOT PROT 6.5 g/dl (6.4-8.2)
--- NOTE | 2019-12-23 08:12 | PN ---
Progress Note, Physician - Current Medication List Current Medications: Active Medications Apixaban (Eliquis -) 2.5 mg PO BID [facility] Last Admin: 12/22/19 21:59 Dose: 2.5 mg Documented by: Aspirin (Asa -) 81 mg PO DAILY [facility] Last Admin: 12/22/19 10:12 Dose: 81 mg Documented by: Colchicine (Colcrys) 0.6 mg PO DAILY [facility] Last Admin: 12/22/19 10:13 Dose: 0.6 mg Documented by: Guaifenesin (Mucinex -) 600 mg PO BID [facility] Last Admin: 12/22/19 21:59 Dose: 600 mg Documented by: Sodium Chloride (Normal Saline -) 1,000 mls @ 40 mls/hr IV ASDIR [facility] Last Admin: 12/22/19 16:55 Dose: 40 mls/hr Documented by: Insulin Aspart (Novolog Vial Sliding Scale -) 1 vial SQ ACHS [facility]; Protocol Last Admin: 12/23/19 06:03 Dose: Not Given Documented by: Insulin Detemir (Levemir Vial) 25 units SQ BID@0700,2200 [facility] Last Admin: 12/23/19 06:03 Dose: 25 units Documented by: Metoprolol Succinate (Toprol Xl -) 50 mg PO BID [facility] Last Admin: 12/22/19 21:58 Dose: Not Given Documented by: Spironolactone (Aldactone -) 25 mg PO DAILY [facility] Last Admin: 12/22/19 10:13 Dose: 25 mg Documented by: Tamsulosin HCl (Flomax -) 0.4 mg PO DAILY@0830 [facility] Last Admin: 12/22/19 10:13 Dose: 0.4 mg Documented by: Torsemide (Demadex -) 100 mg PO BID [facility] Last Admin: 12/22/19 21:58 Dose: Not Given Documented by: - Objective Vital Signs: Vital Signs Temperature 98 F 12/23/19 06:00 Pulse Rate 71 12/23/19 06:00 Respiratory Rate 20 12/23/19 06:00 Blood Pressure 119/62 12/23/19 06:00 O2 Sat by Pulse Oximetry (%) 100 12/23/19 06:00 Labs: CBC, BMP 12/22/19 07:36 12/23/19 06:25 INR, PTT INR 1.14 (0.83-1.09) H 12/21/19 10:50 Assessment/Plan Assessment/Plan Hypercalcemia Lung Nodule suspicious for malignancy UTI CAD s/p CABG Atrial Fibrillation LV Systolic/Diastolic Dysfunction COPD Chronic Hypoxic Respiratory Failure JUAN HTN DM Hyperlipidemia CKD - continue antibiotics - f/u cultures - IVF - monitor urine output, creatinine - lasix - monitor calcium level, f/u PTH - BETTY level as outpt - PET scan as outpt - rate controlled - continue anticoagulation
[2019-12-23] MEDS ORDERED: PT OWN MED DRAWER 7, Y5N ONE (09:11)
[2019-12-23] MEDS: TAMSULOSIN HCL 0.4 MG CAP PO SCH (09:16)
[2019-12-23] MEDS: COLCHICINE 0.6 MG CAP PO SCH (09:16)
[2019-12-23] MEDS: ASPIRIN 81 MG CHEWABLE TABLETS PO SCH (09:16)
[2019-12-23] MEDS: SPIRONOLACTONE 25 MG TABLET PO SCH (09:16)
[2019-12-23] MEDS: APIXABAN 2.5 MG TABLET PO SCH (09:16)
[2019-12-23] MEDS: guaiFENesin 600 MG TABLET.ER (FP) PO SCH (09:16)
[2019-12-23] MEDS: TORSEMIDE 100 MG TABLET PO SCH (09:16)
--- NOTE | 2019-12-23 09:35 | PN ---
Teaching Attending Note Name of Resident: Chantel Loyola ATTENDING PHYSICIAN STATEMENT I saw and evaluated the patient. I reviewed the resident's note and discussed the case with the resident. I agree with the resident's findings and plan as documented. SUBJECTIVE: pt seen and examined at bedside OBJECTIVE: Last Vital Signs Temp Pulse Resp BP Pulse Ox 98.3 F 71 20 112/67 100 12/23/19 09:00 12/23/19 09:00 12/23/19 09:00 12/23/19 09:00 12/23/19 09:00 GENERAL: The patient is awake, alert, and fully oriented, in no acute distress. LUNGS: Breath sounds equal, clear to auscultation bilaterally, no wheezes, no crackles, no accessory muscle use. HEART: Regular rate and rhythm, S1, S2 without murmur, rub or gallop. ABDOMEN: Soft, nontender, nondistended, normoactive bowel sounds, no guarding, no rebound, no hepatosplenomegaly, no masses. EXTREMITIES: 2+ pulses, warm, well-perfused, no edema. NEUROLOGICAL: Cranial nerves II through XII grossly intact. Normal speech, gait not observed. CBCD WBC 8.8 K/mm3 (4.0-10.0) 12/22/19 07:36 RBC 4.29 M/mm3 (4.00-5.60) 12/22/19 07:36 Hgb 13.1 GM/dL (11.7-16.9) 12/22/19 07:36 Hct 39.0 % (35.4-49) 12/22/19 07:36 MCV 91.0 fl (80-96) 12/22/19 07:36 MCHC 33.6 g/dl (32.0-35.9) 12/22/19 07:36 RDW 18.8 % (11.9-15.9) H 12/22/19 07:36 Plt Count 165 K/MM3 (134-434) 12/22/19 07:36 MPV 8.0 fl (7.5-11.1) 12/22/19 07:36 CMP Sodium 140 mmol/L (136-145) 12/23/19 06:25 Potassium 4.0 mmol/L (3.5-5.1) 12/23/19 06:25 Chloride 96 mmol/L (98-107) L 12/23/19 06:25 Carbon Dioxide 38 mmol/L (21-32) H 12/23/19 06:25 Anion Gap 5 MMOL/L (8-16) L 12/23/19 06:25 BUN 54.0 mg/dL (7-18) H 12/23/19 06:25 Creatinine 2.2 mg/dL (0.55-1.3) H 12/23/19 06:25 Calcium 11.0 mg/dL (8.5-10.1) H 12/23/19 06:25 Total Bilirubin 0.5 mg/dL (0.2-1) 12/23/19 06:25 AST 39 U/L (15-37) H 12/23/19 06:25 ALT 54 U/L (13-61) 12/23/19 06:25 Alkaline Phosphatase 75 U/L (45-117) 12/23/19 06:25 Total Protein 6.5 g/dl (6.4-8.2) 12/23/19 06:25 Albumin 3.2 g/dl (3.4-5.0) L 12/23/19 06:25 ASSESSMENT AND PLAN: 89yo M with h/o HTN, HLD, Afib (on Eliquis), CAD s/p CABG (remote hx), mixed CHF, CKD, Aortic stenosis, COPD (4L NC at home), OSAS (Bipap 15/8 nightly), Asbestosis, Type 2 DM, BPH, gout, and mild dementia who presents to the ED from his PCP office for elevated calcium # Hypercalcemia likely 2/2 Malignancy -CT showing 1cm speculated nodule in Rt upper lobe, h/o smoking, h/o asbestos exposure -CT report: An irregular spiculated 1 cm right upper lobe pulmonary nodule is noted suspicious for primary neoplastic disease. This nodule appears unchanged in comparison to a recent CT study of 10/16/2019 although not present at the time of a more remote CT exam of 06/23/2016. No infiltrate is seen. Stable chronic trace loculated left pleural effusion within the lower chest which is unchanged in comparison to multiple prior exams. Bilateral pleural calcifications are noted suggestive of asbestos exposure. Note is again made of focal chronic left lower lobe atelectasis posteriorly. Multichamber cardiomegaly. Status post median sternotomy with CABG. Stable mildly prominent hyperplastic mediastinal lymph nodes. Stable 3 cm left adrenal adenoma. Biochemical evaluation is suggested if not previously performed -vit d low, PTH pending -aviva 11 -c/w IVF and torsemide -will need PET scan +/- biopsy and outpatient workup for malignancy -monitor i/o -case discussed with consults -pulmonary consult appreciated -nephrology consult appreciated HTN HLD CAD CHF (mixed HFpEF and HFrEF) CKD Aortic stenosis COPD JUAN DM BPH Gout Mild dementia Presbyacusis DVT prophylaxis - on full AC
[2019-12-23 10:38] VITALS: BP 112/67; TEMP 98.3
--- NOTE | 2019-12-23 12:43 | DS ---
Physical Exam: SUBJECTIVE: Patient seen and examined. No acute events overnight. OBJECTIVE: Vital Signs Temperature 98.3 F 12/23/19 09:00 Pulse Rate 71 12/23/19 09:00 Respiratory Rate 20 12/23/19 09:00 Blood Pressure 112/67 12/23/19 09:00 O2 Sat by Pulse Oximetry (%) 100 12/23/19 09:00 PHYSICAL EXAM GENERAL: The patient is awake, alert, and fully oriented, in no acute distress. NECK: supple. LUNGS: decreased breath sounds on bilateral bases HEART: Regular rate and rhythm, S1, S2 ABDOMEN: Soft, nontender, nondistended, normoactive bowel sounds, no guarding, no rebound, no hepatosplenomegaly, no masses. EXTREMITIES: 2+ pulses, warm, well-perfused, no edema. NEUROLOGICAL: Cranial nerves II through XII grossly intact. PSYCH: Normal mood, normal affect. SKIN: Warm, dry, normal turgor LABS Laboratory Results - last 24 hr 12/22/19 12/22/19 12/22/19 07:36 16:53 21:54 Sodium Potassium Chloride Carbon Dioxide Anion Gap BUN Creatinine Est GFR (CKD-EPI)AfAm Est GFR (CKD-EPI)NonAf POC Glucometer 158 144 Random Glucose Calcium Total Bilirubin AST ALT Alkaline Phosphatase Total Protein Albumin PTH Intact 7 L 12/23/19 12/23/19 05:52 06:25 Sodium 140 Potassium 4.0 Chloride 96 L Carbon Dioxide 38 H Anion Gap 5 L BUN 54.0 H Creatinine 2.2 H Est GFR (CKD-EPI)AfAm 29.89 Est GFR (CKD-EPI)NonAf 25.79 POC Glucometer 120 Random Glucose 150 H Calcium 11.0 H Total Bilirubin 0.5 AST 39 H ALT 54 Alkaline Phosphatase 75 Total Protein 6.5 Albumin 3.2 L PTH Intact HOSPITAL COURSE: Date of Admission:12/21/19 Date of Discharge: 12/23/19 Patient is an 89yo M with h/o HTN, HLD, Afib (on Eliquis), CAD s/p CABG (remote hx), mixed CHF, CKD, Aortic stenosis, COPD (4L NC at home), OSAS (Bipap 15/8 nightly), Asbestosis, Type 2 DM, BPH, gout, and mild dementia who presented to the ED from his PCP office for elevated calcium. Patient was started on IV fluids. Chest CT noted an irregular spiculated 1 cm right upper lobe pulmonary nodule is noted suspicious for primary neoplastic disease. PTH and Vit D are low. Calcium levels improved. Patient advised to follow up with nephrology for further management of hypercalcemia, and pulmonology for further work-up of lung mass. Minutes to complete discharge: 35 Discharge Summary Problems reviewed: Yes Reason For Visit: COUGH,LACTIC ACIDOSIS,HYPERCALCEMIA Condition: Stable - Instructions Diet, Activity, Other Instructions: Your visit You were admitted to the hospital because you were found to have elevated calcium level. You were given IV fluids and your calcium levels improved. On CAT scan, you were noted to have a mass on your lung. You were evaluated by the software release manager and recommended further work up of the mass including a PET scan. Please follow up with the [facility] for your calcium levels and the software release manager for the lung mass. Referrals have been provided. Medications Please continue your home medications as prescribed. Follow up Please follow up with your primary care doctor in 1 week. Please follow up with the [facility] (Dr. Avalos) in 1-2 weeks. You will need repeat blood work to follow up your kidney function. Please follow up with the software release manager (Dr. Beckman) in 1-2 weeks. Additional info Please call 911 or go to the emergency department if with any worsening fevers, chills, headache, dizziness, chest pain, shortness of breath, belly pain, or any new concerns noted. Referrals: Tye Avalos MD [Staff Physician] - Sunil Moseley MD [Primary Care Provider] - Thomas Beckman MD, MD [Staff Physician] - Disposition: HOME - Home Medications Comprehensive Discharge Medication List: Ambulatory Orders Sitagliptin Phosphate [Januvia -] 25 mg PO DAILY@0700 #90 tab 10/14/14 Spironolactone [Aldactone -] 25 mg PO DAILY #30 tablet 03/31/17 Aspirin 81 mg PO DAILY 04/10/17 Metoprolol Succinate [Toprol Xl] 50 mg PO BID 02/20/18 Apixaban [Eliquis -] 2.5 mg PO BID 03/30/18 Acetaminophen [Tylenol .Regular Strength -] 650 mg PO Q8H PRN tablet 01/26/19 Colchicine [Colcrys] 0.6 mg PO DAILY cap 01/26/19 Methyl Salicylate/Menthol Oint [Analgesic [place] -] 1 applic TP BID PRN applic 01/26/19 Nitroglycerin Sublingual [Nitrostat -] 0.4 mg SL Q5M PRN tab 01/26/19 Tamsulosin HCl [Flomax -] 0.4 mg PO DAILY@0830 cap.er.24h 01/26/19 Torsemide [Demadex -] 100 mg PO BIDLASIX tablet 05/14/19 Insulin (Levemir) [Levemir Vial] 25 units SQ BID@0700,2200 #0 units 12/23/19 This patient is new to me today: Yes Date on this admission: 12/23/19 Emergency Visit: Yes ED Registration Date: 12/21/19 Care time: The patient presented to the Emergency Department on the above date and was hospitalized for further evaluation of their emergent condition. Critical Care patient: No - Discharge Referral Referred to [facility] No ATTENDING PHYSICIAN STATEMENT I saw and evaluated the patient. I reviewed the resident's note and discussed the case with the resident. I agree with the resident's findings and plan as documented. SUBJECTIVE: OBJECTIVE: ASSESSMENT AND PLAN:
--- NOTE | 2019-12-23 21:25 | EKG ---
Test Reason : Blood Pressure : / mmHG Vent. Rate : 079 BPM Atrial Rate : 086 BPM P-R Int : 000 ms QRS Dur : 122 ms QT Int : 386 ms P-R-T Axes : 000 -23 047 degrees QTc Int : 442 ms ATRIAL FIBRILLATION WITH PREMATURE VENTRICULAR OR ABERRANTLY CONDUCTED COMPLEXES SEPTAL INFARCT , AGE UNDETERMINED ABNORMAL ECG WHEN COMPARED WITH ECG OF 08-MAY-2019 11:02, LIKELY NO SIGNIFICANT CHANGES Confirmed by JOESPH JOHNSON MD ([id number]) on 12/23/2019 9:25:18 PM Referred By: Confirmed By:JOESPH JOHNSON MD
== END 2019-12-23 10:49 | disposition home health service (06) | DRG 181 ==
LOC: JER 10:01 → JERBED 11:34 → J8W 15:04
PROVIDERS: ADMIT Internal Medicine; ATTEND Student in an Organized Health Care Education/Training Program
DX: D38.1 Neoplasm of uncertain behavior of trachea, bronchus and lung (principal); J98.11 Atelectasis; J84.9 Interstitial pulmonary disease, unspecified; N39.0 Urinary tract infection, site not specified; E87.2 Acidosis; E87.1 Hypo-osmolality and hyponatremia; I48.20 Chronic atrial fibrillation, unspecified; J96.11 Chronic respiratory failure with hypoxia; I13.0 Hypertensive heart and chronic kidney disease with heart failure and stage 1 through stage 4 chronic kidney disease, or unspecified chronic kidney disease; I50.40 Unspecified combined systolic (congestive) and diastolic (congestive) heart failure; E83.52 Hypercalcemia; E11.9 Type 2 diabetes mellitus without complications; I27.20 Pulmonary hypertension, unspecified; I25.5 Ischemic cardiomyopathy; I25.10 Atherosclerotic heart disease of native coronary artery without angina pectoris; I35.0 Nonrheumatic aortic (valve) stenosis; R91.1 Solitary pulmonary nodule; M25.519 Pain in unspecified shoulder; G47.33 Obstructive sleep apnea (adult) (pediatric); N40.0 Benign prostatic hyperplasia without lower urinary tract symptoms; J44.9 Chronic obstructive pulmonary disease, unspecified; M10.9 Gout, unspecified; F03.90 Unspecified dementia, unspecified severity, without behavioral disturbance, psychotic disturbance, mood disturbance, and anxiety; E78.00 Pure hypercholesterolemia, unspecified; H91.10 Presbycusis, unspecified ear; E11.22 Type 2 diabetes mellitus with diabetic chronic kidney disease; N18.2 Chronic kidney disease, stage 2 (mild); D35.02 Benign neoplasm of left adrenal gland; Z95.1 Presence of aortocoronary bypass graft; Z99.81 Dependence on supplemental oxygen
CPT/HCPCS: 36415; 71045-TC-FY; 71250-TC; 80053; 81003; 82306; 82310; 82803; 82962; 83605; 83735; 83880; 83970; 84100; 84484; 85025; 85027; 85610; 85730; 87040; 87086; 93005; 93010; 94660; 99285-25; U0003

== ENCOUNTER 2020-01-02 14:40 | Inpatient (IN) | payer OTHER ==
--- NOTE | 2020-01-02 14:49 | PDOC ---
Rapid Medical Evaluation Time Seen by Provider: 01/02/20 14:41 Medical Evaluation: Allergies Allergy/AdvReac Type Severity Reaction Status Date / Time No Known Allergies Allergy Verified 12/21/19 10:03 01/02/20 14:43 I performed a brief in-person evaluation of this patient. Pt is an 89 y/o male who presents to the ED sent by Dr. Avalos's office for low blood pressure and low O2 saturation. His O2 sat was 84% in the office and BP was 70/40. In the ED it was 89/50 mmHg. The patient's son states he was very short of breath just prior to arrival. Pertinent physical exam findings: On 4L of O2 currently. Speaking in short sentences. Low BP in the triage. I have ordered the following: cardiac work up, ekg, cxr Patient to proceed to ED for further evaluation. Discharge Disposition - Diagnosis Hypotension - Referrals - Patient Instructions - Post Discharge Activity
--- OUTSIDE RECORDS SUMMARY | 2020-01-02 15:15 | XMS ---
:1930 Author Organization [facility] Care Team Providers Name Role Phone Bailey PHAM MD Majed Unavailable [phone] Bailey PHAM MD Majed Unavailable [phone] Bailey PHAM MD Majed Unavailable [phone] Re-disclosure Warning The records that you are [...] is protected by Article 27-F of the [facility] Public Health law. If you continue you may haveaccess to information: Regarding HIV / AIDS; Provided by facilities licensed or operated by the [facility] Office of Mental Health; or Provided by the [facility] Office for People With Developmental Disabilities. If such information is present, then the following [facility] mandated warning applies: This information has [...] law may result in a fine or snf sentence or both. A general authorization for the release of medical or other information is NOT sufficient authorization for further disclosure. Encounters Encounter Providers Location Date Indications Data Source(s ) Attender: MD Gamble 01/02/2020 (MEDGE N) Natalio Avalos [facility] 12:00:00 [facility] Attender: MD Gamble 01/02/2020 12:00:00 AM EDT (MEDGEN) Natalio Avalos MD [facility] Office Attender: MD Gamble 01/02/2020 12:00:00 AM EDT (MEDGEN) Natalio Avalos MD [facility] ephrology [facility] Office Outpatient [address] 12/20/2019 12:00:00 AM eCW1 ([facility]) Immunizations Vaccine Date Status Description Data Source(s) IIV3. This is one of 12/20/2019 completed eCW1 (S lew Sanchez two codes replacing CVX 10:44:00 AM EDT edical Practice ) 15, which is being retired. Medications Medication Brand Start Product Dose Route Administrative Pharmacy [facility] Indications Reaction Description Data Name Date Form Instructions Instructions Source(s) Aspirin 81 ASPIRI 01/01/ complet ASPIRIN (MEDGEN) MG Delayed N:3084 2019 ed [facility] [place] [facility] Release 16 12:00: [place] Oral Tablet 00 AM r ASPIRIN:308 EDT Nephrol[facility] apixaban ELIQUI 01/01/ complet ELIQUIS ( MEDGEN) 2.5 MG Oral S:1364 2019 ed [place] rn Tablet 441 12:00: [place] [Eliquis] 00 AM r ELIQUIS:136 EDT Nephrol[facility] 4441 PLL[facility] eplerenone EPLERE 01/01/ complet EPLEREN ONE (MEDGEN) 25 MG Oral NONE:3 2019 ed [place] n Tablet 24582 12:00: EPLERENONE: 00 AM r [id number] EDT Nephrology PLL torsemide TORSEM 01/01/ TORSEMID E (MEDGEN) 100 MG Oral CONSUELO:19 2019 ed [place] rn Tablet 8370 12:00: TORSEMIDE:1 00 AM r 53330 EDT [facility]rology PLL[facility] Glucosamine GLUCOS 01/01/ complet GLUCOS AMINE (MEDGEN) GLUCOSAMINE AMINE: 2019 ed [place] rn :4845 4845 12:00: [facility] 00 AM r EDT Nephrology PLL[facility] Tamsulosin TAMSUL 01/01/ complet TAMSULO SIN (MEDGEN) hydrochlori OSIN:8 2019 ed [place] 0[place]4 [place] [address] 12:00: [facility] Oral 00 AM r Capsule EDT Nephrology TAMSULOSIN: [facility] 495352 sitagliptin JANUVI 01/01/ JANUVI A (MEDGEN) 25 MG Oral A:6650 2019 ed [place] n Tablet 40 12:00: [facility] [Januvia] 00 AM r JANUVIA:665 EDT Nephrolo gy 040 PLLC Levothyroxi LEVOTH LEVOTH YROXIN (MEDGEN) ne Sodium YROXIN 2019 ed E [facility] 0.1 MG Oral E:8922 12:00: [place] Tablet 46 00 AM r LEVOTHYROXI EDT Nephrolo gy [id number] [facility] Insurance Providers Payer name Policy type Policy ID Covered Covered democrat's Policy P louis / Coverage democrat ID relationship to Sargent Inf ormation type sargent MEDICARE [id number] SP [id number] AETNA O [id number] SP [id number] [place] [id number] PART B [id number] [place] A[employer]NA [id number] 06-20 MEDICARE [id number] SP [id number] A Problems, Conditions, and Diagnoses Code Display Name Description Problem Effective Data Source (s) Type Dates 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/2020 (MED GEN) heart disease of HEART DISEASE OF 12:00:00 AM S [place] coronary [place] CORONARY EDT [place] artery without ARTERY WITHOUT [facility] angina pectoris ANGINA PECTORIS N18.9 Chronic kidney CHRONIC KIDNEY Problem 01/02/2020 (MEDGE N) disease, unspecified DISEASE, 12:00:00 AM Laine thern UNSPECIFIED EDT [facility] R06.02 Shortness of breath SHORTNESS OF BREATH Problem 020 (MEDGEN) 12:00:00 AM [place] EDT [facility] I50.42 [id number] Chronic combined Problem 12/21/2019 eCW 1 ([facility] systolic and 12:00:00 AM [facility] ical diastolic EDT [facility]) congestive heart failure J47.1 [id number] Bronchiectasis with Problem 12/21/2019 eCW1 ([facility] acute exacerbation 12:00:00 AM [facility] EDT [facility]) E03.9 [id number] Acquired Problem 12/21/2019 eCW1 ([facility] hypothyroidism 12:00:00 AM Daniel M edical EDT Practice PC) K59.01 [id number] Slow transit Problem 12/21/2019 eCW1 ([facility] constipation 12:00:00 AM [facility] ical EDT [facility]) K76.9 [id number] Liver disease, Problem 12/21/2019 eCW1 ([place] t unspecified 12:00:00 AM Daniel Medi aviva EDT Practice PC) 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) Problem 12/20/2019 eCW1 ([facility] use of insulin 12:00:00 AM Daniel M edical EDT [facility]) J96.12 [id number] Chronic respiratory Problem 12/20/2019 eCW1 ([facility] failure with 12:00:00 AM Daniel Med ical hypercapnia EDT Practice PC) J41.1 [id number] Mucopurulent Problem 12/20/2019 eCW1 ([facility] chronic bronchitis 12:00:00 AM Tony hs Medical EDT Practice PC) I50.9 Heart failure ACC/AHA stage C Problem 12/20/2019 eCW1 ( [facility] congestive heart 12:00:00 AM [facility] Medical failure EDT Practice PC) E11.9 [id number] Type 2 diabetes Problem 12/20/2019 eCW1 ([place]enn[place] nt mellitus without 12:00:00 AM [facility] Medical complications EDT Practice PC ) Surgeries/Procedures Procedure Description Date Indications Data Source(s) Documentation of current 01/02/2020 (ME DGEN) [facility] medications (procedure) 12:00:00 AM EDT [facility] OFFICE OUTPATIENT VISIT 01/02/2020 (MED GEN) [facility] 25 MINUTES 12:00:00 AM EDT [facility] Results ID Date Data Source [id number] 12/21/2019 12:00:00 PM EDT [facility] Name Value Range Interpretation Description Data Sup porting Code Source(s) Document(s ) SARS [facility] coronavirus 2 RNA This lab was ordered by [facility] and reported by [facility]. ID Date Data Source HEMOGLOBIN A1c (496) 12/21/2019 10:18:44 AM EDT eCW1 ([facility] PC) Name Value Range Interpretation Description Data Sup porting Code Source(s) Document(s ) Hemoglobin HEMOGLOBIN A1c eCW1 ([facility] A1c/Hemoglobin Daniel .total in Medical Blood Practice PC) ID Date Data Source B TYPE NATRIURETIC PEPTIDE (BNP) 12/21/2019 10:18:32 AM eCW1 ([facility] ([id number]) EDT Practice PC) Name Value Range Interpretation Description Data Sup porting Code Source(s) Document(s ) Natriuretic B TYPE eCW1 ([facility] peptide B NATRIURETIC [facility] [Mass/volume] PEPTIDE (BNP) Medical in Serum or Practice PC) Plasma ID Date Data Source TSH W/REFLEX TO FT4 ([id number]) 12/21/2019 10:17:24 AM EDT eCW1 ([facility]) Name Value Range Interpretation Description Data Sup porting Code Source(s) Document(s ) Thyrotropin 1.32 TSH W/REFLEX eCW1 ([facility] [Units/volume] TO FT4 Daneil in Serum or Medical Plasma Practice PC) ID Date Data Source CBC (H/H, RBC, INDICES, 12/21/2019 10:17:10 AM EDT eCW1 ([facility] WBC, PLT) (3224) Practice PC) Name Value Range Interpretation Description Data Sup porting Code Source(s) Document(s ) Leukocytes WHITE BLOOD eCW1 (Saint [#/volume] in CELL COUNT [facility] Blood by Medical Automated count Practice PC) Erythrocytes RED BLOOD CELL eCW1 ([facility] [#/volume] in COUNT [facility] Blood by Medical Automated count Practice PC) Hemoglobin HEMOGLOBIN eCW1 ([facility] [Mass/volume] in [facility] Blood Medical Practice ) Hematocrit HEMATOCRIT eCW1 ([facility] [Volume Daniel Fraction] of Medical Blood by Practice ) Automated count Erythrocyte mean MCH eCW1 ([facility] corpuscular Daniel hemoglobin Medical [Entitic mass] Practice PC) by Automated count Erythrocyte mean MCV eCW1 ([facility] corpuscular Daniel volume [Entitic Medical volume] by Practice ) Automated count Erythrocyte RDW eCW1 ([facility] distribution Danile width [Ratio] by Medical Automated count Practice ) Erythrocyte mean MCHC eCW1 ([facility] corpuscular Daniel hemoglobin Medical concentration Practice PC) [Mass/volume] by Automated count Platelets PLATELET COUNT eCW1 ([facility] [#/volume] in [facility] Blood by Medical Automated count Practice ) Platelet mean MPV eCW1 ([facility] volume [Entitic Daniel volume] in Blood Medical by Emily Practice PC) ID Date Data Source COMPREHENSIVE METABOLIC PANEL 12/21/2019 10:16:53 AM [id number] Name Value Range Interpretation Description Data Sup porting Code Source(s) Document(s ) Urea nitrogen 58 UREA NITROGEN eCW1 ([facility] [Mass/volume] in (BUN) [facility] Serum or Plasma Medical Practice ) Glucose 140 GLUCOSE eCW1 ([facility] [Mass/volume] in [facility] Serum or Plasma Medical Practice ) Creatinine 2.28 CREATININE eCW1 ([facility] [Mass/volume] in [facility] Serum or Plasma Medical Practice ) Glomerular 25 eGFR NON-AFR. eCW1 ([facility] filtration BURKINAN Daniel rate/1.73 sq Medical M.predicted [Volume Practice Rate/Area] in ) Serum, Plasma or Blood by Creatinine-based formula (MDRD) Glomerular 29 eGFR eCW1 ([facility] filtration BURKINAN Daniel rate/1.73 sq M Medical predicted among Practice blacks [Volume ) Rate/Area] in Serum or Plasma by Creatinine-based formula (MDRD) Urea 25 BUN/CREATININ eCW1 ([facility] nitrogen/Creatinine E RATIO Daniel [Mass Ratio] in Medical Serum or Plasma Practice ) Sodium 135 SODIUM eCW1 ([facility] [Moles/volume] in [facility] Serum or Plasma Medical Practice PC) Potassium 4.6 POTASSIUM eCW1 ([facility] [Moles/volume] in [facility] Serum or Plasma Medical Practice PC) Chloride 87 CHLORIDE eCW1 ([facility] [Moles/volume] in [facility] Serum or Plasma Medical Practice PC) Carbon dioxide, 39 CARBON eCW1 ([facility] total DIOXIDE [facility] [Moles/volume] in Medical Serum or Plasma Practice PC) Calcium 12.9 CALCIUM eCW1 ([facility] [Mass/volume] in [facility] Serum or Plasma Medical Practice PC) Protein 6.9 PROTEIN, eCW1 ([facility] [Mass/volume] in TOTAL [facility] Serum or Plasma Medical Practice PC) Globulin 2.8 GLOBULIN eCW1 ([facility] [Mass/volume] in [facility] Serum by Medical calculation Practice PC) Albumin 4.1 ALBUMIN eCW1 ([facility] [Mass/volume] in [facility] Serum or Plasma Medical Practice PC) Bilirubin.total 0.7 BILIRUBIN, eCW1 ([facility] [Mass/volume] in TOTAL [facility] Serum or Plasma Medical Practice PC) Albumin/Globulin 1.5 ALBUMIN/GLOBU eCW1 ([place] nt [Mass Ratio] in TABBY RATIO [facility] Serum or Plasma Medical Practice PC) Aspartate 40 AST eCW1 ([facility] aminotransferase Daniel [Enzymatic Medical activity/volume] in Practice Serum or Plasma PC) Alkaline 83 ALKALINE eCW1 ([facility] phosphatase PHOSPHATASE [facility] [Enzymatic Medical activity/volume] in Practice Serum or Plasma PC) Alanine 48 ALT eCW1 ([facility] aminotransferase Daniel [Enzymatic Medical activity/volume] in Practice Serum or Plasma PC) Procedure Social History Code Duration Value Status Description Data Source(s ) Smoking 01/02/2020 history of completed history of (MEDGEN) [facility] 12:00:00 AM EDT asbestos exposure asbestos expo sure [facility] from 1956 to from 6 to about Neph [facility] about 1985, pt 1985, 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[facility] [employer] in [facility] Smoking 01/02/2020 Unknown if ever completed Unknown if ever (MED GEN) [facility] 12:00:00 AM EDT smoked smoked [facility] er [facility] Smoking 12/20/2019 Former Smoker completed Former Smoker eCW1 (Sa int 12:00:00 AM EDT [facility] Practice ) Vital Signs ID Date Data Source UNK Name Value Range Interpretation Code Description Data Source(s) Heart rate 87 /min 87 /min (MEDGEN) [facility] Diastolic blood 44 mm[Hg] 44 mm[Hg] (MEDGEN) [facility] Systolic blood 78 mm[Hg] 78 mm[Hg] (MEDGEN) S outhern pressure [facility] Diastolic blood 60 mm[Hg] 60 mm[Hg] eCW1 ([place]ennaro nt pressure [facility]) Systolic blood 100 mm[Hg] 100 mm[Hg] eCW1 ([place] [facility]) Body temperature 97.0 [degF] 97.0 [degF] eCW1 ( [facility]) Heart rate 68 /min 68 /min eCW1 ([facility]) Body mass index 36.18 kg/m2 36.18 kg/m2 eCW1 (S aint (BMI) [Ratio] [facility]) Body weight 238 [lb_av] 238 [lb_av] eCW1 ([facility]) Body height 68 [in_i] 68 [in_i] eCW1 ([facility])
--- NOTE | 2020-01-02 15:25 | PDOC ---
History of Present Illness - History of Present Illness Initial Comments: 01/02/20 15:26 89 yo male with h/o HTN, HLD, Afib (on Eliquis), CAD s/p CABG (remote hx), mixed CHF, CKD, Aortic stenosis, COPD (4L NC at home), OSAS (Bipap 15/8 nightly), Asbestosis, Type 2 DM, BPH, gout, and mild dementia coming form Dr. Bailey office for low BP and SOB desaturating to 85%. According to son pt was recently discharged from hospital and has been SOB since. Pt according to son, saw Dr. Mackay yesterday and was also SOB but was told not much more they could do. Then, pt was seen by Dr. Bailey today who saw pt was 70/40 and desaturating to 85% on 4L of NC and told his son to bring him in. Pt currently explains he does have inc sob. Pt denies fevers, chills, sick contacts, chest pain, abd pain, dysuria. PMH: above Meds: Levothyroxine 100microg, tosemide 100 mg, Eplerenone 25, januvia 25, linzess 290 tamsulosin 40, eliquis 25, omega, aspirin 81 mg PSH: CABG Allergies: NKA Pulm: Dr. Garcia PMD: Dr. Plummer Nephro: Dr. Bailey <Montana Bruno - Last Filed: 01/03/20 10:44> <Alexandra Kiser - Last Filed: 01/04/20 16:13> - General Chief Complaint: Blood Pressure Problem Stated Complaint: SENT [facility] PCP/HYPOTENSION Time Seen by Provider: 01/02/20 14:41 Past History - Medical History Anemia: No Asthma: No Cancer: No Cardiac Disorders: Yes (Atrial Fib, CAD, CABG, aortic stenosis) CVA: No COPD: Yes (O2 Dep 4 L) CHF: Yes Dementia: Yes (mild) Diabetes: Yes GI Disorders: Yes (ulcerative colitis) Disorders: Yes (bph) HTN: Yes Hypercholesterolemia: Yes Liver Disease: No Seizures: No Thyroid Disease: No Lung CA: No (MESOTHELIOMA) - Surgical History Abdominal Surgery: No Appendectomy: No Cardiac Surgery: Yes (CABG) Cholecystectomy: No Lung Surgery: No Neurologic Surgery: No Orthopedic Surgery: No - Immunization History Immunization Up to Date: Yes - Psycho-Social/Smoking History Smoking History: Never smoked Have you smoked in the past 12 months: No If you are a former smoker, when did you quit?: 66 years old <Montana Bruno - Last Filed: 01/03/20 10:44> <Alexandra Kiser - Last Filed: 01/04/20 16:13> - Medical History Allergies/Adverse Reactions: Allergies Allergy/AdvReac Type Severity Reaction Status Date / Time No Known Allergies Allergy Verified 01/02/20 14:51 Home Medications: Ambulatory Orders Sitagliptin Phosphate [Januvia -] 25 mg PO DAILY@0700 #90 tab 10/14/14 Spironolactone [Aldactone -] 25 mg PO DAILY #30 tablet 03/31/17 Aspirin 81 mg PO DAILY 04/10/17 Metoprolol Succinate [Toprol Xl] 50 mg PO BID 02/20/18 Apixaban [Eliquis -] 2.5 mg PO BID 03/30/18 Acetaminophen [Tylenol .Regular Strength -] 650 mg PO Q8H PRN tablet 01/26/19 Colchicine [Colcrys] 0.6 mg PO DAILY cap 01/26/19 Methyl Salicylate/Menthol Oint [Analgesic Goldsmith -] 1 applic TP BID PRN applic 01/26/19 Nitroglycerin Sublingual [Nitrostat -] 0.4 mg SL Q5M PRN tab 01/26/19 Tamsulosin HCl [Flomax -] 0.4 mg PO DAILY@0830 cap.er.24h 01/26/19 Torsemide [Demadex -] 100 mg PO BIDLASIX tablet 05/14/19 Insulin (Levemir) [Levemir Vial] 25 units SQ BID@0700,2200 #0 units 12/23/19 Review of Systems - Review of Systems Comments:: 01/02/20 22:04 GENERAL/CONSTITUTIONAL: No fever or chills. No weakness. HEAD, EYES, EARS, NOSE AND THROAT: No change in vision. No ear pain or discharge. No sore throat. CARDIOVASCULAR: No chest pain. SOB RESPIRATORY: Cough. NO wheezing, or hemoptysis. GASTROINTESTINAL: No nausea, vomiting, diarrhea or constipation. GENITOURINARY: No dysuria, frequency, or change in urination. MUSCULOSKELETAL: Lower ext swelling. SKIN: No rash NEUROLOGIC: No headache, vertigo, loss of consciousness, or change in strength/sensation. ENDOCRINE: No increased thirst. No abnormal weight change HEMATOLOGIC/LYMPHATIC: No anemia, easy bleeding, or history of blood clots. ALLERGIC/IMMUNOLOGIC: No hives or skin allergy. <Montana Bruno - Last Filed: 01/03/20 10:44> *Physical Exam - Vital Signs Last Vital Signs Temp Pulse Resp BP Pulse Ox 98.4 F 82 22 H 89/50 L 99 01/02/20 14:48 01/02/20 14:48 01/02/20 14:48 01/02/20 14:48 01/02/20 14:48 - Physical Exam 01/02/20 22:05 GENERAL: Awake, alert, and fully oriented, in moderate distress HEAD: No signs of trauma, normocephalic, atraumatic EYES: PERRLA, EOMI, sclera anicteric, conjunctiva clear ENT: Auricles normal inspection, hearing grossly normal, nares patent, oropharynx clear without exudates. Moist mucosa NECK: Normal ROM, supple, no lymphadenopathy LUNGS:decreased breath sounds on left base. HEART: Regular rate and rhythm, normal S1 and S2, no murmurs, rubs or gallops, peripheral pulses normal and equal bilaterally. ABDOMEN: Distended nontender in all four quadrants. EXTREMITIES : bilateral lower ext edema. NEUROLOGICAL: Cranial nerves II through XII grossly intact. Normal speech SKIN: Warm, Dry, normal turgor, no rashes or lesions noted <Montana Bruno - Last Filed: 01/03/20 10:44> - Vital Signs Last Vital Signs Temp Pulse Resp BP Pulse Ox 97.8 F 77 18 93/57 L 99 01/04/20 13:48 01/04/20 16:12 01/04/20 13:48 01/04/20 16:12 01/04/20 10:00 <Alexandra Kiser - Last Filed: 01/04/20 16:13> ED Treatment Course - LABORATORY CBC & Chemistry Diagram: 01/03/20 06:55 01/03/20 06:55 <Montana Bruno - Last Filed: 01/03/20 10:44> - LABORATORY CBC & Chemistry Diagram: 01/04/20 06:25 01/04/20 06:25 - ADDITIONAL ORDERS Additional order review: 01/02/20 16:30 RBC 4.11 MCV 91.8 MCHC 34.4 RDW 18.6 H MPV 9.0 D Neutrophils % 72.0 Lymphocytes % 14.5 Monocytes % 9.1 Eosinophils % 3.6 Basophils % 0.8 - Medications Given in the ED: ED Medications Discontinued Medications Generic Name Dose Route Start Last Admin Trade Name Vincenzo PRN Reason Stop Dose Admin Ceftriaxone Sodium 1,000 mg/ 50 mls @ 100 mls/hr 01/02/20 18:43 01/02/20 21:04 Dextrose IVPB 01/02/20 19:12 100 mls/hr ONCE ONE Administration Azithromycin 500 mg/ Dextrose 250 mls @ 250 mls/hr 01/02/20 19:31 01/02/20 21:31 IVPB 01/02/20 20:30 250 mls/hr ONCE ONE Administration Ceftriaxone Sodium 1 gm/ 50 mls @ 100 mls/hr 01/03/20 10:00 01/03/20 09:49 Dextrose IVPB 100 mls/hr DAILY JOE Administration Insulin Aspart 1 vial 01/03/20 07:00 01/04/20 11:33 Novolog Vial Sliding Scale - SQ 10 units ACHS JOE Administration Protocol Insulin Detemir 10 units 01/03/20 22:00 01/03/20 22:04 Levemir Vial SQ 10 units HS JOE Administration Insulin Detemir 25 units 01/04/20 13:54 01/04/20 15:39 Levemir Vial SQ 01/04/20 13:55 25 unit ONCE ONE Administration <Alexandra Kiser - Last Filed: 01/04/20 16:13> Medical Decision Making - Medical Decision Making 01/02/20 16:56 89 yo male with pmh above presents for SOB and low BP that started today. A: CHF exacerbation, PNA, COPD exacerbation, 01/02/20 19:21 PT cxr shows left lower infiltrate Probnp elevated from prior admission will admit for possible PNA vs CHF exacerbatino Gave Ceftriaxone and azithromycin for pna Held lasix due to tenuous BP. 01/02/20 21:[address] Gardner who stated pt has lung mass but most likely benign. Pt has bp 90/50 normally. Pt should be on bipap for the night Dr. Bailey called and said pt in office was 70/40 and desaturating to 85% and to put him on for consultation. 01/02/20 22:44 Pt HPI, ED course, and plan was discussed with resident Dr. Caballero. Pt will be admitted to Dr. Larsen <Montana Bruno - Last Filed: 01/03/20 10:44> Discharge - Discharge Information Problems reviewed: Yes - Admission Yes <Montana Bruno - Last Filed: 01/03/20 10:44> - Discharge Information Problems reviewed: Yes - Admission Yes <Alexandra Kiser - Last Filed: 01/04/20 16:13> - Discharge Information Clinical Impression/Diagnosis: Hypotension CHF, acute on chronic Qualifiers: Heart failure type: unspecified Qualified Code(s): I50.9 - Heart failure, unspecified Respiratory failure Qualifiers: Chronicity: acute on chronic Respiratory failure complication: hypercapnia Qualified Code(s): J96.22 - Acute and chronic respiratory failure with hyp ercapnia Pneumonia Qualifiers: Pneumonia type: due to unspecified organism Laterality: left Lung location: unspecified part of lung Qualified Code(s): J18.9 - Pneumonia, unspecified organism Condition: Fair
--- NOTE | 2020-01-02 16:16 | PDOC ---
Documentation entered by Jhonny Norwood SCRIBE, acting as scribe for Alexandra Kiser MD. Alexandra Kiser MD: This documentation has been prepared by the Cuco leal Angel, SCRIBE, under my direction and personally reviewed by me in its entirety. I confirm that the documentation accurately reflects all work, treatment, procedures, and medical decision making performed by me. Attending Attestation - Resident Resident Name: Montana Bruno - ED Attending Attestation I have performed the following: I have examined & evaluated the patient, The case was reviewed & discussed with the resident, I agree w/resident's findings & plan - HPI HPI: 01/02/20 16:10 89yo M with h/o HTN, HLD, Afib (on Eliquis), CAD s/p CABG (remote hx), mixed CHF, CKD, Aortic stenosis, COPD (4L NC at home), OSAS (Bipap 15/8 nightly), Asbestosis, Type 2 DM, BPH, gout, and mild dementia who presented to the ED With shortness of breath and hypotension from Dr Avalos's office He was recently admitted about 1 week ago for lung nodule workup, malignancy concern and hypercalcemia. Chest CT noted an irregular spiculated 1 cm right upper lobe pulmonary nodule is noted suspicious for primary neoplastic disease. PTH and Vit D are low. Calcium levels improved. Patient advised to follow up with nephrology for further management of hypercalcemia, and pulmonology for further work-up of lung mass. - Physicial Exam PE: 01/02/20 15:29 General: awake and alert, NAD. HEENT: NCAT, PERRL, EOMI, clear conjunctiva, anicteric, moist mucous membranes, clear oropharynx, no oral lesions.. Neck: neck supple, FROM Resp: basilar scant crackles, normal and even respirations, no respiratory distress, on supplemental O2 4LNC CVS: irregularly irregular, no murmurs, 2+ peripheral pulses throughout, no peripheral edema Abdomen: soft, NTND, no rebound or guarding. No CVAT. Back: nontender, normal inspection and ROM MSK: no edema, NARVAEZ x4, ROM intact. No clubbing or cyanosis. normal bulk and t one. Extremities: no calf tenderness Neuro: alert, oriented appropriately; no focal neurologic deficits Skin: warm and well perfused, cap refill <2 sec, normal color 01/02/20 16:19 01/02/20 17:54 01/02/20 17:54 - Medical Decision Making 01/02/20 16:16 Vital Signs Temp Pulse Resp BP Pulse Ox 98.4 F 82 22 H 89/50 L 99 01/02/20 14:48 01/02/20 14:48 01/02/20 14:48 01/02/20 14:48 01/02/20 14:48 DDx SOB: ACS, PE, PTX, CHF, COPD exac, pulmonary edema, pleurisy, pneumonia, viral syndrome. effusion. anemia, electrolyte/metabolic derangements. Considered but clinically doubt based on HPI and PE: Low suspicion for pulmonary embolism or dissection. bedside singh exam with small collapsible IVC, decreased EF on visual estimation, no pericardial effusion, small left pleural effusion, RV<LV, neg FAST exam; primarily A line profile EKG atrial fibrillation 83 bpm no interval abnormalities, wide QRS, ST and T wave segments and morphology normal. Nonspecific T wave abnormalities, unchanged from prior Chest x-ray with sclerotic knob, cardiomegaly, sternal sutures and clips in place. There are congestive changes correlating with his finding of reduced ejection fraction on bedside ultrasound. Last echo was in April 2019, at that time his EF was reportedly normal at 55%, limited exam at the time. No pericardial effusion at that time CT chest also from 12/21/2019 with no infiltrate, lung nodule was identified. There is chronic and stable trace left pleural effusion similar to previous, pleural calcifications and there was concern for prior asbestos exposure and status post sternotomy with CABG, hyperplastic mediastinal lymph nodes and left adrenal adenoma. labs and lytes_c/w chronic renal insufficiency, normal lytes CBC wnl elevated bnp c/w condition neg trop Plan for admit observation, for suspected new onset CHF? repeat echo, to r/o ischemia, serial trops and EKG/tele monitoring. discussion with patient and family at bedside, made aware of impression and plan, questions answered. 01/02/20 16:19 01/02/20 16:31 01/02/20 17:54 01/04/20 16:11 Heart Score/ECG Review #1 ECG reviewed & interpreted by me at: 15:55 General ECG Interpretation: Normal Rate Compared to previous ECG there are: No significant change 01/02/20 16:21 EKG atrial fibrillation 83 bpm no interval abnormalities, wide QRS, ST and T wave segments and morphology normal. Nonspecific T wave abnormalities, unchanged from prior Discharge - Discharge Information Problems reviewed: Yes Clinical Impression/Diagnosis: Hypotension CHF, acute on chronic Qualifiers: Heart failure type: unspecified Qualified Code(s): I50.9 - Heart failure, unspecified Respiratory failure Qualifiers: Chronicity: acute on chronic Respiratory failure complication: hypercapnia Qualified Code(s): J96.22 - Acute and chronic respiratory failure with hypercapnia - Follow up/Referral - Patient Discharge Instructions - Post Discharge Activity Vital Signs - Vital Signs Vital signs refused: No Pulse Rate: 77 Blood Pressure: 93/57
[2020-01-02 17:21] LABS: BASO % 0.8 % (0-2.0); EOS % 3.6 % (0-4.5); HEMATOCRIT 37.7 % (35.4-49); LYMPH % 14.5 % (8-40); MCH 31.6 pg (25.7-33.7); MCHC 34.4 g/dl (32.0-35.9); MEAN CELL VOLUME 91.8 fl (80-96); MONO % 9.1 % (3.8-10.2); PLATELET COUNT 186 K/MM3 (134-434); RBC 4.11 M/mm3 (4.00-5.60); RDW 18.6 % (11.9-15.9); WHITE BLOOD COUNT 11.1 K/mm3 (4.0-10.0)
[2020-01-02 17:33] LABS: INR 1.13 (0.83-1.09); PROTHROMBIN TIME (PATIENT) 13.8 SEC (9.7-13.0)
[2020-01-02 17:36] LABS: ACTIVATED PTT 32.1 SECONDS (25.2-36.5)
[2020-01-02 18:35] LABS: ALBUMIN 3.4 g/dl (3.4-5.0); ALK PHOS 91 U/L (45-117); ANION GAP 10 MMOL/L (8-16); BILIRUBIN,TOTAL 0.5 mg/dL (0.2-1); BLOOD UREA NITROGEN 61.1 mg/dL (7-18); CALCIUM 10.8 mg/dL (8.5-10.1); CHLORIDE 89 mmol/L (98-107); CO2 35 mmol/L (21-32); CREATININE 2.4 mg/dL (0.55-1.3); GLUCOSE,RANDOM 201 mg/dL (74-106); N-TERMINAL BNP 1234.2 pg/ml (5-450); POTASSIUM 3.9 mmol/L (3.5-5.1); SGOT/AST 49 U/L (15-37); SGPT/ALT 67 U/L (13-61); SODIUM 133 mmol/L (136-145)
[2020-01-02] MEDS ORDERED: CEFTRIAXONE 1,000 MG in DEXTROSE 5%-WATER - 50 ML IVPB ONE (18:43)
[2020-01-02] MEDS ORDERED: AZITHROMYCIN IVPB 500 MG in DEXTROSE 5%-WATER - 250 ML IVPB ONE (19:31)
[2020-01-02] MEDS ORDERED: CEFTRIAXONE 1 GM/50 ML BAG ONE (20:32)
[2020-01-02] MEDS ORDERED: AZITHROMYCIN IVPB 500 MG/250 ML BAG IVPB ONE (20:33)
--- NOTE | 2020-01-02 21:49 | PN ---
Teaching Attending Note Name of Resident: Ada Mason ATTENDING PHYSICIAN STATEMENT I saw and evaluated the patient. I reviewed the resident's note and discussed the case with the resident. I agree with the resident's findings and plan as documented. SUBJECTIVE: Patient is an 89 year old man with a PMH of HTN, HLD, Afib (on Eliquis), CAD s/p CABG, CHF, CKD, Aortic stenosis, COPD (4L NC at home), OSAS (Bipap 15/8 nightly), Asbestosis, NIDDM, BPH, Gout and Dementia coming form Dr. Bailey's office for low BP and SOB desaturating to 85%. According to son patient was recently discharged from the hospital and has had SOB since. Pt according to son saw Dr. Garcia yesterday and was also SOB but was told not much more they could do. Patient does have increasing SOB. Patient denies chest pain, abdominal pain, headache, palpitations, dizziness, fever, chills, nausea, vomiting, diarrhea, constipation, dysuria, frequency, urgency, melena, hematochezia or hematuria. Denies alcohol, tobacco or illicit drug use. No sick contacts or recent travels. Family history is unremarkable. OBJECTIVE: Alert Vital Signs Period Temp Pulse Resp BP Sys/Junior Pulse Ox Last 24 Hr 98.4 F 73-82 20-22 89-103/50-57 99-99 HEENT: No Jaundice, eye redness or discharge, PERRLA, EOMI. Normocephalic, atraumatic. External ears are normal and hearing is grossly intact. No nasal discharge. Neck: Supple, nontender. No palpable adenopathy or thyromegaly. No JVD Chest: Good effort. Diminished breath sounds. Clear to percussion. Heart: Regular. No S3, rub or murmur Abdomen: Not distended, soft, nontender and no HSM. No rebound or guarding. Normal bowel sounds. Ext: Peripheral pulses intact. Leg edema. Skin: Warm and dry. No petechiae, rash or ecchymosis. Neuro: Alert. Oriented x3. CN 2-12 grossly intact. Sensation grossly intact in all four extremities and DTR are symmetric. Psych: Appropriate mood and affect. Good insight. Home Medications Medication Instructions Recorded Sitagliptin Phosphate [Januvia -] 25 mg PO DAILY@0700 #90 tab 10/14/14 Spironolactone [Aldactone -] 25 mg PO DAILY #30 tablet 03/31/17 Aspirin 81 mg PO DAILY 04/10/17 Metoprolol Succinate [Toprol Xl] 50 mg PO BID 02/20/18 Apixaban [Eliquis -] 2.5 mg PO BID 03/30/18 Acetaminophen [Tylenol .Regular 650 mg PO Q8H PRN tablet 01/26/19 Strength -] Colchicine [Colcrys] 0.6 mg PO DAILY cap 01/26/19 Methyl Salicylate/Menthol Oint 1 applic TP BID PRN applic 01/26/19 [Analgesic Viola -] Nitroglycerin Sublingual 0.4 mg SL Q5M PRN tab 01/26/19 [Nitrostat -] Tamsulosin HCl [Flomax -] 0.4 mg PO DAILY@0830 cap.er.24h 01/26/19 Torsemide [Demadex -] 100 mg PO BIDLASIX tablet 05/14/19 Insulin (Levemir) [Levemir Vial] 25 units SQ BID@0700,2200 #0 units 12/23/19 Abnormal Lab Results 01/02/20 01/02/20 01/02/20 16:30 16:30 16:30 WBC 11.1 H RDW 18.6 H PT with INR 13.80 H INR 1.13 H Sodium 133 L Chloride 89 L Carbon Dioxide 35 H BUN 61.1 H Creatinine 2.4 H Random Glucose 201 H Calcium 10.8 H AST 49 H ALT 67 H B-Natriuretic Peptide 1234.2 H Current Medications Generic Name Dose Route Start Last Admin Trade Name Freq PRN Reason Stop Dose Admin Azithromycin 250 mg/ Dextrose 250 mls @ 250 mls/hr 01/03/20 10:00 IVPB 01/06/20 10:59 DAILY JOE Ceftriaxone Sodium 1 gm/ 50 mls @ 100 mls/hr 01/03/20 21:00 Dextrose IVPB 01/03/20 21:29 ONCE ONE Insulin Aspart 1 vial 01/03/20 07:00 Novolog Vial Sliding Scale - SQ ACHS JOE Protocol Methylprednisolone Sodium Succinate 40 mg 01/03/20 03:00 01/03/20 03:21 Solu-Medrol - IVPUSH 40 mg Q8H-IV JOE Administration ASSESSMENT AND PLAN: 1. COPD exacerbation/Acute on chronic hypoxic respiratory failure - May also have a component of CHF exacerbation. CXR shows cardiomegaly, congestive changes, sternal sutures and left pleural effusion. EKG shows Afib at 83/minute and QTc 458 with no significant acute ischemic ST-T wave changes. Not significantly changed compared to prior EKG. Initial troponin is negative. Will avoid drugs that may prolong QTc. Will treat with Duoneb, Solumedrol 40 mg q 8 hours, Symbicort and monitor peak flow. Will treat patient with IV Ceftriaxone and Azithromycin and consult ID. Will admit to telemetry, get urinalysis, trend troponin, continue BiPAP, repeat EKG, treat with IV Lasix (if BP permits), get ECHO, restrict dietary salt intake, monitor renal function, monitor and replete electrolytes, get daily weight and consult Cardiology. Viral testing for COVID-19 ordered and patient placed on airborne, droplet and contact isolation. Will continue comprehensive care for all of patients comorbid conditions. 2. DM For now, we will hold the home diabetes drugs and implement sliding scale insulin regimen. Provide comprehensive diabetes care with patient teaching and counseling about the importance of adherence to prescribed diabetes regimen, euglycemia, eye care and foot care. 3. CKD Has risk factors for CKD. Will get kidney sonogram, monitor urine output and consult Nephrology. Avoid nephrotoxic agents such as NSAIDS, aminoglycosides, contrast dyes and certain Alternative medicine products. 4. Obesity Counseled on the risks associated with obesity. Will provide patient all the necessary assistance, counseling and positive reinforcement to facilitate weight loss. Consult sheet rock hanger. 5. Hypertension Will restart suitable outpatient antihypertensive drugs when clinically appropriate. Subsequently, will revise regimen to ensure [id number] excellent BP control. Patient counseled on the injurious effects of uncontrolled hypertension. Nonpharmacologic measures to control hypertension like weight loss, salt restriction and exercise stressed. Importance of adherence to treatment regimen and attainment of normotension emphasized. 6. DVT prophylaxis - On Eliquis fo Afib. 7. Advance directives - Full code
--- OUTSIDE RECORDS SUMMARY | 2020-01-02 22:14 | XMS ---
:1930 Author Organization [facility] Care Team Providers Name Role Phone Bailey PHAM MD Majed Unavailable [phone] Bailey PHAM MD Majed Unavailable [phone] Bailey PHAM MD Majed Unavailable [phone] Re-disclosure Warning The records that you are [...] is protected by Article 27-F of the [facility] Public Health law. If you continue you may haveaccess to information: Regarding HIV / AIDS; Provided by facilities licensed or operated by the [facility] Office of Mental Health; or Provided by the [facility] Office for People With Developmental Disabilities. If such information is present, then the following [facility] mandated warning applies: This information has [...] law may result in a fine or group home sentence or both. A general authorization for the release of medical or other information is NOT sufficient authorization for further disclosure. Encounters Encounter Providers Location Date Indications Data Source(s ) Attender: MD Gamble 01/02/2020 (MEDGE N) [facility] Attender: MD Gamble 01/02/2020 12:00:00 AM EDT (MEDGEN) Natalio Avlaos MD [facility] Attender: MD Gamble 01/02/2020 12:00:00 AM EDT (MEDGEN) Natalio Avalos MD [facility] ephrology [facility] Office Outpatient [address] 12/20/2019 12:00:00 AM eCW1 ([facility]) Immunizations Vaccine Date Status Description Data Source(s) IIV3. This is one of 12/20/2019 completed eCW1 (S lew Sanchez two codes replacing CVX 10:44:00 AM EDT edical Practice ) 15, which is being retired. Medications Medication Brand Start Product Dose Route Administrative Pharmacy [facility] Indications Reaction Description Data Name Date Form Instructions Instructions Source(s) Aspirin 81 ASPIRI 01/01/ complet ASPIRIN (MEDGEN) MG [facility] 12:[facility]: [place] Oral Tablet 00 AM r ASPIRIN:308 EDT [facility] apixaban ELIQUI 01/01/ complet ELIQUIS ( MEDGEN) 2.5 MG Oral S:1364 2019 ed [place] rn Tablet 441 12:00: [place] [Eliquis] 00 AM r ELIQUIS:136 EDT [facility] eplerenone EPLERE 01/01/ complet EPLEREN ONE (MEDGEN) 25 MG Oral NONE:3 2019 ed [place] n Tablet 41505 12:00: EPLERENONE: 00 AM r [id number] EDT Neph[facility] PLL torsemide TORSEM 01/01/ TORSEMID E (MEDGEN) 100 MG Oral CONSUELO:19 2019 ed [place] rn Tablet 8370 12:00: TORSEMIDE:1 00 AM r 64811 EDT [facility] Glucosamine GLUCOS 01/01/ complet GLUCOS AMINE (MEDGEN) GLUCOSAMINE AMINE: 2019 ed Jayroadarsh rn :4845 4845 12:00: [facility] 00 AM r EDT [facility] Tamsulosin TAMSUL 01/01/ complet TAMSULO SIN (MEDGEN) hydrochlori OSIN:8 2019 ed [place] 0[place]4 [place] [address] 12:00: [facility] mandeep Oral 00 AM r Capsule EDT Nephrology TAMSULOSIN: [facility] 153191 sitagliptin JANUVI 01/01/ JANUVI A (MEDGEN) 25 MG Oral A:6650 2019 ed [place] n Tablet 40 12:00: [facility] [Januvia] 00 AM r JANUVIA:665 EDT [facility] 040 [facility] Levothyroxi LEVOTH LEVOTH YROXIN (MEDGEN) ne Sodium YROXIN 2019 ed E [place] 0.1 MG Oral E:8922 12:00: [place] Tablet 46 00 AM r LEVOTHYROXI EDT [facility] NE[facility][id number] [facility] Providers Payer name Policy type Policy ID Covered Covered green party's Policy P louis / Coverage green party ID relationship to [employer] Inf ormation type sargent MEDICARE [id number] SP [id number] 4 AETNA O [id number] SP [id number] ID MEDICARE [id number] PART B [id number] [place] A[employer]NA [id number] MEDICARE [id number] SP [id number] A Problems, Conditions, and Diagnoses Code Display Name Description Problem Effective Data Source (s) Type Dates 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/2020 (MED GEN) heart disease of HEART DISEASE OF 12:00:00 AM [place] coronary [place] CORONARY EDT [place] artery without ARTERY WITHOUT [facility] angina pectoris ANGINA PECTORIS N18.9 Chronic kidney CHRONIC KIDNEY Problem 01/02/2020 (MEDGE N) disease, unspecified DISEASE, 12:00:00 AM [place] thern UNSPECIFIED EDT [facility] R06.02 Shortness of breath SHORTNESS OF BREATH Problem 020 (MEDGEN) 12:00:00 AM [place] EDT [facility] I50.42 [id number] Chronic combined Problem 12/21/2019 eCW 1 ([facility] systolic and 12:00:00 AM [facility] diastolic EDT [facility]) congestive heart failure J47.1 [id number] Bronchiectasis with Problem 12/21/2019 eCW1 ([facility] acute exacerbation 12:00:00 AM [facility] EDT [facility]) E03.9 [id number] Acquired Problem 12/21/2019 eCW1 ([facility] hypothyroidism 12:00:00 AM [facility] edical EDT [facility]) K59.01 [id number] Slow transit Problem 12/21/2019 eCW1 ([facility] constipation 12:00:00 AM [facility] EDT [facility]) K76.9 [id number] Liver disease, Problem 12/21/2019 eCW1 ([place] t unspecified 12:00:00 AM [facility] Medi aviva EDT Practice PC) 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 12/20/2019 eCW1 ([facility] use of insulin 12:00:00 AM [facility] ed[facility] EDT [facility]) J96.12 [id number] Chronic respiratory Problem 12/20/2019 eCW1 ([facility] failure with 12:00:00 AM [facility] ical hypercapnia EDT [facility]) J41.1 [id number] Mucopurulent Problem 12/20/2019 eCW1 ([facility] chronic bronchitis 12:00:00 AM Tony [facility] Medical EDT [facility]) I50.9 Heart failure ACC/AHA stage C Problem 12/20/2019 eCW1 ( [facility] congestive heart 12:00:00 AM [facility] failure EDT [facility]) E11.9 [id number] Type 2 diabetes Problem 12/20/2019 eCW1 ([place]enn[place] nt mellitus without 12:00:00 AM [facility] Medical complications EDT [facility] ) Surgeries/Procedures Procedure Description Date Indications Data Source(s) Documentation of current 01/02/2020 (ME DGEN) [facility] medications (procedure) 12:00:00 AM EDT [facility] Nephrology [facility] OFFICE OUTPATIENT VISIT 01/02/2020 (MED GEN) [facility] 25 MINUTES 12:00:00 AM EDT [facility] Results ID Date Data Source [id number] 12/21/2019 12:00:00 PM EDT [facility] Name Value Range Interpretation Description Data Sup porting Code Source(s) Document(s ) SARS [facility] coronavirus 2 RNA This lab was ordered by [facility] and reported by [facility]. ID Date Data Source HEMOGLOBIN A1c (496) 12/21/2019 10:18:44 AM EDT eCW1 ([facility]) Name Value Range Interpretation Description Data Sup porting Code Source(s) Document(s ) Hemoglobin HEMOGLOBIN A1c eCW1 ([facility] A1c/Hemoglobin Daniel .total in Medical Blood Practice [facility]) ID Date Data Source B TYPE NATRIURETIC PEPTIDE (BNP) 12/21/2019 10:18:32 AM eCW1 ([facility] ([id number]) EDT Practice PC) Name Value Range Interpretation Description Data Sup porting Code Source(s) Document(s ) Natriuretic B TYPE eCW1 ([facility] peptide B NATRIURETIC [facility] [Mass/volume] PEPTIDE (BNP) Medical in Serum or Practice PC) Plasma ID Date Data Source TSH W/REFLEX TO FT4 ([id number]) 12/21/2019 10:17:24 AM EDT eCW1 ([facility]) Name Value Range Interpretation Description Data Sup porting Code Source(s) Document(s ) Thyrotropin 1.32 TSH W/REFLEX eCW1 ([facility] [Units/volume] TO FT4 Daniel in Serum or Medical Plasma Practice PC) ID Date Data Source CBC (H/H, RBC, INDICES, 12/21/2019 10:17:10 AM EDT eCW1 ([facility] WBC, PLT) (2230) Practice PC) Name Value Range Interpretation Description Data Sup porting Code Source(s) Document(s ) Leukocytes WHITE BLOOD eCW1 ([facility] [#/volume] in CELL COUNT [facility] Blood by Medical Automated count Practice PC) Erythrocytes RED BLOOD CELL eCW1 ([facility] [#/volume] in COUNT [facility] Blood by Medical Automated count Practice PC) Hemoglobin HEMOGLOBIN eCW1 ([facility] [Mass/volume] in [facility] Blood Medical Practice ) Hematocrit HEMATOCRIT eCW1 ([facility] [Volume Daniel Fraction] of Medical Blood by Practice ) Automated count Erythrocyte mean MCH eCW1 ([facility] corpuscular Daniel hemoglobin Medical [Entitic mass] Practice PC) by Automated count Erythrocyte mean MCV eCW1 ([facility] corpuscular Daniel volume [Entitic Medical volume] by Practice ) Automated count Erythrocyte RDW eCW1 ([facility] distribution Daniel width [Ratio] by Medical Automated count Practice ) Erythrocyte mean MCHC eCW1 ([facility] corpuscular Daniel hemoglobin Medical concentration Practice [facility]) [Mass/volume] by Automated count Platelets PLATELET COUNT eCW1 ([facility] [#/volume] in [facility] Blood by Medical Automated count Practice ) Platelet mean MPV eCW1 ([facility] volume [Entitic Daniel volume] in Blood Medical by Emily Practice PC) ID Date Data Source COMPREHENSIVE METABOLIC PANEL 12/21/2019 10:16:53 AM [facility]CW1 ([facility]) Name Value Range Interpretation Description Data Sup porting Code Source(s) Document(s ) Urea nitrogen 58 UREA NITROGEN eCW1 ([facility] [Mass/volume] in (BUN) [facility] Serum or Plasma Medical Practice ) Glucose 140 GLUCOSE eCW1 ([facility] [Mass/volume] in [facility] Serum or Plasma Medical Practice ) Creatinine 2.28 CREATININE eCW1 ([facility] [Mass/volume] in [facility] Serum or Plasma Medical Practice ) Glomerular 25 eGFR NON-AFR. eCW1 ([facility] filtration MOLDOVAN Daniel rate/1.73 sq Medical M.predicted [Volume Practice Rate/Area] in ) Serum, Plasma or Blood by Creatinine-based formula (MDRD) Glomerular 29 eGFR eCW1 ([facility] filtration MOLDOVAN Daniel rate/1.73 sq M Medical predicted among Practice blacks [Volume ) Rate/Area] in Serum or Plasma by Creatinine-based formula (MDRD) Urea 25 BUN/CREATININ eCW1 ([facility] nitrogen/Creatinine E RATIO Daniel [Mass Ratio] in Medical Serum or Plasma Practice ) Sodium 135 SODIUM eCW1 ([facility] [Moles/volume] in [facility] Serum or Plasma Medical Practice PC) Potassium 4.6 POTASSIUM eCW1 ([facility] [Moles/volume] in [facility] Serum or Plasma Medical Practice PC) Chloride 87 CHLORIDE eCW1 ([facility] [Moles/volume] in [facility] Serum or Plasma Medical Practice PC) Carbon dioxide, 39 CARBON eCW1 ([facility] total DIOXIDE [facility] [Moles/volume] in Medical Serum or Plasma Practice PC) Calcium 12.9 CALCIUM eCW1 ([facility] [Mass/volume] in [facility] Serum or Plasma Medical Practice PC) Protein 6.9 PROTEIN, eCW1 ([facility] [Mass/volume] in TOTAL [facility] Serum or Plasma Medical Practice PC) Globulin 2.8 GLOBULIN eCW1 ([facility] [Mass/volume] in [facility] Serum by Medical calculation Practice PC) Albumin 4.1 ALBUMIN eCW1 ([facility] [Mass/volume] in [facility] Serum or Plasma Medical Practice PC) Bilirubin.total 0.7 BILIRUBIN, eCW1 ([facility] [Mass/volume] in TOTAL [facility] Serum or Plasma Medical Practice PC) Albumin/Globulin 1.5 ALBUMIN/GLOBU eCW1 ([place]ennaro nt [Mass Ratio] in TABBY RATIO [facility] Serum or Plasma Medical Practice PC) Aspartate 40 AST eCW1 ([facility] aminotransferase Daniel [Enzymatic Medical activity/volume] in Practice Serum or Plasma PC) Alkaline 83 ALKALINE eCW1 ([facility] phosphatase PHOSPHATASE [facility] [Enzymatic Medical activity/volume] in Practice Serum or Plasma PC) Alanine 48 ALT eCW1 ([facility] aminotransferase Daniel [Enzymatic Medical activity/volume] in Practice Serum or Plasma PC) Procedure Social History Code Duration Value Status Description Data Source(s ) Smoking 01/02/2020 history of completed history of (MEDGEN) [facility] 12:00:00 AM EDT asbestos exposure asbestos expo sure [facility] from [facility] to from 6 to about [facility] about 1985, pt 1985, 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[place] [employer] [place] [employer] [facility] Smoking 01/02/2020 Unknown if ever completed Unknown if ever (MED GEN) [facility] 12:00:00 AM EDT smoked smoked [facility] Smoking 12/20/2019 Former Smoker completed Former Smoker eCW1 (Sa int 12:00:00 AM EDT [facility] ) Vital Signs ID Date Data Source UNK Name Value Range Interpretation Code Description Data Source(s) Heart rate 87 /min 87 /min (MEDGEN) [facility] Diastolic blood 44 mm[Hg] 44 mm[Hg] (MEDGEN) [facility] Systolic blood 78 mm[Hg] 78 mm[Hg] (MEDGEN) S outhern pressure [facility] Diastolic blood 60 mm[Hg] 60 mm[Hg] eCW1 ([place]ennrao nt pressure [facility]) Systolic blood 100 mm[Hg] 100 mm[Hg] eCW1 ([place]) Body temperature 97.0 [degF] 97.0 [degF] eCW1 ( [facility]) Heart rate 68 /min 68 /min eCW1 ([facility]) Body mass index 36.18 kg/m2 36.18 kg/m2 eCW1 (S aint (BMI) [Ratio] [facility]) Body weight 238 [lb_av] 238 [lb_av] eCW1 ([facility]) Body height 68 [in_i] 68 [in_i] eCW1 ([facility])
[2020-01-02 22:33] LABS: URINE APPEARANCE CLEAR; URINE BILIRUBIN NEGATIVE (NEGATIVE); URINE COLOR YELLOW; URINE GLUCOSE (UA) NEGATIVE (NEGATIVE); URINE KETONE NEGATIVE (NEGATIVE)
[2020-01-02 22:34] LABS: URINE LEUK ESTERASE 1+ (NEGATIVE); URINE NITRITE NEGATIVE (NEGATIVE); URINE PROTEIN NEGATIVE (NEGATIVE); URINE UROBILINOGEN 0.2 mg/dL (0.2-1.0)
[2020-01-02 22:35] LABS: EPI CELLS 24 /uL (0-25.1); HYALINE CASTS 1 /uL (0-3.1); URINE BACTERIA 29 /uL (0-1359); URINE RBC 4 /uL (0-23.9); URINE WBC 99 /uL (0-25.8)
--- NOTE | 2020-01-03 03:06 | HP ---
CHIEF COMPLAINT: Worsening dyspnea PCP: Dr. Moseley HISTORY OF PRESENT ILLNESS: Arturo Barber is an 89 year old man PMH htn, hld, CAD s/p CABG, CHF, aortic stenosis, Afib on Eliquis, COPD on 4L nasal cannula, chronic ILD, JUAN on BiPAP, IDDM, BPH, CKD stage 4, and dementia presenting with worsening dyspnea. He was being seen by Dr. Avalos today when his BP was found to be 70/40 in the office. (He normally runs around 90/60). Patient states he has had increasing dyspnea the past several days. Reports a chronic cough, with white phlegm production -- not new for him. History limited by patients dementia. Denies fever, chills, nausea, vomiting, abdominal pain, dysuria, LE edema. States he lives at home with his , and is attended by a home health aid 5 days out of the week who assists with his medications. ER course was notable for: - Ultrasound revealnig small leural effusion, negative FAST exam - Vitals on admission HR 73, BP 93/57, RR 20 - O2 sat 99 on 3 L nasal cannula PAST MEDICAL HISTORY: Hypertension Hyperlipidemia CAD s/p CABG CHF (ECHO 2020 EF 55%) Aortic Stenosis Afib on Eliquis COPD on 4L home oxygen JUAN on BiPaP at night IDDM CKD stage 4 PAST SURGICAL HISTORY: CABG Social History: Smoking: NO Alcohol: NO Drugs: NO Allergies No Known Allergies Allergy (Verified 01/02/20 14:51) PER PT AND FAMILY HOME MEDICATIONS: Home Medications Medication Instructions Recorded Sitagliptin Phosphate [Januvia -] 25 mg PO DAILY@0700 #90 tab 10/14/14 Spironolactone [Aldactone -] 25 mg PO DAILY #30 tablet 03/31/17 Aspirin 81 mg PO DAILY 04/10/17 Metoprolol Succinate [Toprol Xl] 50 mg PO BID 02/20/18 Apixaban [Eliquis -] 2.5 mg PO BID 03/30/18 Acetaminophen [Tylenol .Regular 650 mg PO Q8H PRN tablet 01/26/19 Strength -] Colchicine [Colcrys] 0.6 mg PO DAILY cap 01/26/19 Methyl Salicylate/Menthol Oint 1 applic TP BID PRN applic 01/26/19 [Analgesic [place] -] Nitroglycerin Sublingual 0.4 mg SL Q5M PRN tab 01/26/19 [Nitrostat -] Tamsulosin HCl [Flomax -] 0.4 mg PO DAILY@0830 cap.er.24h 01/26/19 Torsemide [Demadex -] 100 mg PO BIDLASIX tablet 05/14/19 Insulin (Levemir) [Levemir Vial] 25 units SQ BID@0700,2200 #0 units 12/23/19 REVIEW OF SYSTEMS SEE HPI PHYSICAL EXAMINATION Vital Signs - 24 hr 01/02/20 01/02/20 01/02/20 14:48 17:00 17:55 Temperature 98.4 F Pulse Rate 82 77 Pulse Rate [ 73 Apical] Respiratory 22 H 20 Rate Blood Pressure 89/50 L 93/57 L Blood Pressure 103/56 L [Right Arm] O2 Sat by Pulse 99 99 Oximetry (%) 01/02/20 01/02/20 01/03/20 19:40 22:34 00:38 Temperature 97.3 F L Pulse Rate 70 Pulse Rate [ 70 Apical] Respiratory 19 Rate Blood Pressure Blood Pressure 108/59 L [Right Arm] O2 Sat by Pulse 99 97 100 Oximetry (%) 01/03/20 01:23 Temperature Pulse Rate Pulse Rate [ 69 Apical] Respiratory Rate Blood Pressure Blood Pressure 96/54 L [Right Arm] O2 Sat by Pulse 100 Oximetry (%) GENERAL: Awake, alert, and fully oriented, HEAD: Normal with no signs of trauma. EYES: Pupils equal, round and reactive to light, extraocular movements intact LUNGS: Decreased breath sounds bilaterally. Mild wheezing on the left side. HEART: Regular rate and rhythm, normal S1 and S2 without murmur, ABDOMEN: Soft, nontender, not distended, normoactive bowel sounds LOWER EXTREMITIES: 2+ pulses, warm, well-perfused. No calf tenderness. No peripheral edema. PSYCHIATRIC: Cooperative. Good eye contact. Appropriate mood and affect. SKIN: Warm, dry, normal turgor, no rashes or lesions noted, normal capillary refill. Laboratory Results - last 24 hr 01/02/20 01/02/20 01/02/20 16:30 16:30 16:30 WBC 11.1 H RBC 4.11 Hgb 13.0 Hct 37.7 MCV 91.8 MCH 31.6 MCHC 34.4 RDW 18.6 H Plt Count 186 MPV 9.0 D Absolute Neuts (auto) 8.0 Neutrophils % 72.0 Lymphocytes % 14.5 Monocytes % 9.1 Eosinophils % 3.6 Basophils % 0.8 Nucleated RBC % 0 PT with INR 13.80 H INR 1.13 H PTT (Actin FS) 32.1 Sodium 133 L Potassium 3.9 Chloride 89 L Carbon Dioxide 35 H Anion Gap 10 BUN 61.1 H Creatinine 2.4 H Est GFR (CKD-EPI)AfAm 26.90 Est GFR (CKD-EPI)NonAf 23.21 Random Glucose 201 H Calcium 10.8 H Magnesium 2.0 Total Bilirubin 0.5 AST 49 H ALT 67 H Alkaline Phosphatase 91 Creatine Kinase 29 Troponin I < 0.02 B-Natriuretic Peptide 1234.2 H Total Protein 7.0 Albumin 3.4 Urine Color Urine Appearance Urine pH Ur Specific [place] Urine Protein Urine Glucose (UA) Urine Ketones Urine Blood Urine Nitrite Urine Bilirubin Urine Urobilinogen Ur Leukocyte Esterase Urine WBC (Auto) Urine RBC (Auto) Urine Casts (Auto) U Epithel Cells (Auto) Urine Bacteria (Auto) 01/02/20 21:50 WBC RBC Hgb Hct MCV MCH MCHC RDW Plt Count MPV Absolute Neuts (auto) Neutrophils % Lymphocytes % Monocytes % Eosinophils % Basophils % Nucleated RBC % PT with INR INR PTT (Actin FS) Sodium Potassium Chloride Carbon Dioxide Anion Gap BUN Creatinine Est GFR (CKD-EPI)AfAm Est GFR (CKD-EPI)NonAf Random Glucose Calcium Magnesium Total Bilirubin AST ALT Alkaline Phosphatase Creatine Kinase Troponin I B-Natriuretic Peptide Total Protein Albumin Urine Color Yellow Urine Appearance Clear Urine pH 5.0 D Ur Specific [place] 1.011 Urine Protein Negative Urine Glucose (UA) Negative Urine Ketones Negative Urine Blood Negative Urine Nitrite Negative Urine Bilirubin Negative Urine Urobilinogen 0.2 Ur Leukocyte Esterase 1+ H Urine WBC (Auto) 99 Urine RBC (Auto) 4 Urine Casts (Auto) 1 U Epithel Cells (Auto) 24 Urine Bacteria (Auto) 29 ASSESSMENT/PLAN: Arturo Barber is an 89 year old man PMH htn, hld, CAD s/p CABG, CHF, aortic stenosis, Afib on Eliquis, COPD on 4L nasal cannula, chronic ILD, JUAN on BiPAP, IDDM, BPH, CKD stage 4, and dementia presenting with worsening dyspnea. #Acute on chronic CHF - Most likely triggered by worsening kidney function - echo 04/2019 with EF 55% - BNP 1234 - Patient has been hypotensive; hold lasix for now - Restrict salt intake - Cardio consult - F/u ECHO #COPD exacerbation - Solumedrol 40 q8h - Albuterol; consider switching to xopenex if pt becomes tachycardic - Given Azithro 500 in ED - Continue with Azithromycin - Continue with BiPAP #UTI - Start on Rocephin 1g #Diabetes - BGM - ISS #Chronic Afib - Continue home Eliquis - Currently rate controlled #Htn - Hold htn medications for now #CKD stage 4 - Avoid nephrotoxic medications DVT prophylaxis: continue home eliquis FEN - No standing fluids - Monitor am labs ; mag phos - Renal/sodium diet Dispo: tele Family Medical History Family History: As Documented Visit type - Medication Review Med list reviewed for High Risk Meds patients 65 and older: Yes - Emergency Visit Emergency Visit: Yes ED Registration Date: 01/02/20 Care time: The patient presented to the Emergency Department on the above date and was hospitalized for further evaluation of their emergent condition. - New Patient This patient is new to me today: Yes Date on this admission: 01/03/20 - Critical Care Critical Care patient: No ATTENDING PHYSICIAN STATEMENT I saw and evaluated the patient. I reviewed the resident's note and discussed the case with the resident. I agree with the resident's findings and plan as documented. SUBJECTIVE: OBJECTIVE: ASSESSMENT AND PLAN:
[2020-01-03] MEDS ORDERED: methylPREDNISolone NA SUCC 40 MG/1 ML VIAL ONE ×2 (03:14→09:09)
[2020-01-03] MEDS ORDERED: CEFTRIAXONE 1 GM in DEXTROSE 5%-WATER - 50 ML IVPB ONE ×2 (03:15→21:00)
[2020-01-03] MEDS: methylPREDNISolone NA SUCC 40 MG/1 ML VIAL IVPUSH SCH ×3 (03:21→18:02)
[2020-01-03] MEDS ORDERED: ALBUTEROL SO4 HFA INHALER IH PRN (03:56)
[2020-01-03 07:30] LABS: BASO % 0.6 % (0-2.0); EOS % 3.5 % (0-4.5); HEMATOCRIT 38.2 % (35.4-49); HEMOGLOBIN 13.1 GM/dL (11.7-16.9); MCHC 34.2 g/dl (32.0-35.9); MEAN CELL VOLUME 90.6 fl (80-96); MEAN PLT VOLUME 8.2 fl (7.5-11.1); MONO % 3.1 % (3.8-10.2); NEUT % 84.8 % (42.8-82.8); PLATELET COUNT 175 K/MM3 (134-434); RBC 4.22 M/mm3 (4.00-5.60); RDW 18.6 % (11.9-15.9); WHITE BLOOD COUNT 9.9 K/mm3 (4.0-10.0)
[2020-01-03] MEDS: INSULIN SLIDING SCALE (NOVOLOG) 1 VIAL SQ SCH ×4 (07:52→22:04)
[2020-01-03 08:14] LABS: ALBUMIN 3.4 g/dl (3.4-5.0); BLOOD UREA NITROGEN 63.8 mg/dL (7-18); CALCIUM 10.4 mg/dL (8.5-10.1); CREATININE 2.4 mg/dL (0.55-1.3); MAGNESIUM 2.2 mg/dL (1.8-2.4); PHOSPHOROUS 3.8 mg/dL (2.5-4.9); POTASSIUM 4.1 mmol/L (3.5-5.1); TOT PROT 7.1 g/dl (6.4-8.2)
[2020-01-03] MEDS ORDERED: PT OWN MED DRAWER 7, Y5N ONE (09:07)
[2020-01-03] MEDS ORDERED: APIXABAN 2.5 MG TABLET ONE (09:09)
[2020-01-03] MEDS ORDERED: CEFTRIAXONE 1 GM/50 ML BAG ONE (09:09)
[2020-01-03] MEDS ORDERED: INSULIN SLIDING SCALE (NOVOLOG) 1 VIAL SQ ONE (09:12)
[2020-01-03] MEDS: AZITHROMYCIN IVPB 250 MG in DEXTROSE 5%-WATER - 250 ML IVPB SCH (09:49)
[2020-01-03] MEDS: APIXABAN 2.5 MG TABLET PO SCH ×2 (09:49→22:04)
[2020-01-03] MEDS ORDERED: CEFTRIAXONE 1 GM in DEXTROSE 5%-WATER - 50 ML IVPB SCH (10:00)
--- NOTE | 2020-01-03 12:00 | PN ---
Physical Exam: SUBJECTIVE: Patient seen and examined at the bedside. patient is awake and alert and in no acute respiratory distress. denies any dizziness or shortness of breath OBJECTIVE: bp currently low but stable, patient sent in for hypotension from physician's assistant office. currently on 4 liters of nasal cannula with sats @ 96% ---- Patient is an 89 year old man PMH htn, hld, CAD s/p CABG, CHF, aortic stenosis, Afib on Eliquis, COPD on 4L nasal cannula, chronic ILD, JUAN on BiPAP, IDDM, BPH, CKD stage 4, and dementia presenting with worsening dyspnea. He was being seen by his neprhologist when his BP was found to be 70/40 in the office. (He normally runs around 90/60). Patient states he has had increasing dyspnea the past several days. Reports a chronic cough, with white phlegm production. Denies fever, chills, nausea, vomiting, abdominal pain, dysuria, LE edema. States he lives at home with his , and is attended by a home health aid 5 days out of the week who assists with his medications. Period Temp Pulse Resp BP Sys/Junior Pulse Ox Last 24 Hr 97.3 F-98.4 F 69-86 16-22 80-118/50-65 97-100 GENERAL: The patient is awake, alert, and fully oriented, in no acute distress. son at bedside. HEAD: Normal with no signs of trauma. EYES: PERRL, extraocular movements intact, sclera anicteric, conjunctiva clear. No ptosis. ENT: Ears normal, nares patent, oropharynx clear without exudates NECK: Trachea midline, full range of motion, supple. LUNGS: + crackles at left base. right lung clear. HEART: Regular rate and rhythm, ABDOMEN: Soft, nontender, distended but soft EXTREMITIES: trace edema bilterally NEUROLOGICAL: Normal speech, gait not observed. + facial symmetry PSYCH: Normal mood, normal affect. SKIN: Warm, dry, normal turgor, no rashes or lesions noted Laboratory Results - last 24 hr 01/02/20 01/02/20 01/02/20 16:30 16:30 16:30 WBC 11.1 H RBC 4.11 Hgb 13.0 Hct 37.7 MCV 91.8 MCH 31.6 MCHC 34.4 RDW 18.6 H Plt Count 186 MPV 9.0 D Absolute Neuts (auto) 8.0 Neutrophils % 72.0 Lymphocytes % 14.5 Monocytes % 9.1 Eosinophils % 3.6 Basophils % 0.8 Nucleated RBC % 0 PT with INR 13.80 H INR 1.13 H PTT (Actin FS) 32.1 Sodium 133 L Potassium 3.9 Chloride 89 L Carbon Dioxide 35 H Anion Gap 10 BUN 61.1 H Creatinine 2.4 H Est GFR (CKD-EPI)AfAm 26.90 Est GFR (CKD-EPI)NonAf 23.21 POC Glucometer Random Glucose 201 H Calcium 10.8 H Phosphorus Magnesium 2.0 Total Bilirubin 0.5 AST 49 H ALT 67 H Alkaline Phosphatase 91 Creatine Kinase 29 Troponin I < 0.02 B-Natriuretic Peptide 1234.2 H Total Protein 7.0 Albumin 3.4 Urine Color Urine Appearance Urine pH Ur Specific [place] Urine Protein Urine Glucose (UA) Urine Ketones Urine Blood Urine Nitrite Urine Bilirubin Urine Urobilinogen Ur Leukocyte Esterase Urine WBC (Auto) Urine RBC (Auto) Urine Casts (Auto) U Epithel Cells (Auto) Urine Bacteria (Auto) 01/02/20 01/03/20 01/03/20 21:50 06:55 06:55 WBC 9.9 RBC 4.22 Hgb 13.1 Hct 38.2 MCV 90.6 MCH 31.0 MCHC 34.2 RDW 18.6 H Plt Count 175 MPV 8.2 Absolute Neuts (auto) 8.4 H Neutrophils % 84.8 H Lymphocytes % 8.0 D Monocytes % 3.1 L Eosinophils % 3.5 Basophils % 0.6 Nucleated RBC % 0 PT with INR INR PTT (Actin FS) Sodium 134 L Potassium 4.1 Chloride 92 L Carbon Dioxide 34 H Anion Gap 7 L BUN 63.8 H Creatinine 2.4 H Est GFR (CKD-EPI)AfAm 26.90 Est GFR (CKD-EPI)NonAf 23.21 POC Glucometer Random Glucose 186 H Calcium 10.4 H Phosphorus 3.8 Magnesium 2.2 Total Bilirubin 1.0 AST 40 H ALT 61 Alkaline Phosphatase 73 Creatine Kinase Troponin I B-Natriuretic Peptide Total Protein 7.1 Albumin 3.4 Urine Color Yellow Urine Appearance Clear Urine pH 5.0 D Ur Specific [place] 1.011 Urine Protein Negative Urine Glucose (UA) Negative Urine Ketones Negative Urine Blood Negative Urine Nitrite Negative Urine Bilirubin Negative Urine Urobilinogen 0.2 Ur Leukocyte Esterase 1+ H Urine WBC (Auto) 99 Urine RBC (Auto) 4 Urine Casts (Auto) 1 U Epithel Cells (Auto) 24 Urine Bacteria (Auto) 29 01/03/20 01/03/20 07:50 11:21 WBC RBC Hgb Hct MCV MCH MCHC RDW Plt Count MPV Absolute Neuts (auto) Neutrophils % Lymphocytes % Monocytes % Eosinophils % Basophils % Nucleated RBC % PT with INR INR PTT (Actin FS) Sodium Potassium Chloride Carbon Dioxide Anion Gap BUN Creatinine Est GFR (CKD-EPI)AfAm Est GFR (CKD-EPI)NonAf POC Glucometer 207 295 Random Glucose Calcium Phosphorus Magnesium Total Bilirubin AST ALT Alkaline Phosphatase Creatine Kinase Troponin I B-Natriuretic Peptide Total Protein Albumin Urine Color Urine Appearance Urine pH Ur Specific [place] Urine Protein Urine Glucose (UA) Urine Ketones Urine Blood Urine Nitrite Urine Bilirubin Urine Urobilinogen Ur Leukocyte Esterase Urine WBC (Auto) Urine RBC (Auto) Urine Casts (Auto) U Epithel Cells (Auto) Urine Bacteria (Auto) Active Medications Generic Name Dose Route Start Last Admin Trade Name Freq PRN Reason Stop Dose Admin Albuterol Sulfate 2 puff 01/03/20 03:56 Ventolin Hfa Inhaler - IH Q4H PRN SHORT OF BREATH/WHEEZING Apixaban 2.5 mg 01/03/20 10:00 01/03/20 09:49 Eliquis - PO 2.5 mg BID JOE Administration Azithromycin 250 mg/ Dextrose 250 mls @ 250 mls/hr 01/03/20 10:00 01/03/20 09:49 IVPB 01/06/20 10:59 250 mls/hr DAILY JOE Administration Ceftriaxone Sodium 1 gm/ 50 mls @ 100 mls/hr 01/03/20 10:00 01/03/20 09:49 Dextrose IVPB 100 mls/hr DAILY JOE Administration Insulin Aspart 1 vial 01/03/20 07:00 01/03/20 11:37 Novolog Vial Sliding Scale - SQ 6 units ACHS JOE Administration Protocol Methylprednisolone Sodium Succinate 40 mg 01/03/20 03:00 01/03/20 09:49 Solu-Medrol - IVPUSH 40 mg Q8H-IV JOE Administration ASSESSMENT/PLAN: (1) Acute respiratory failure with hypoxia Assessment/Plan: Likely secondary to copd exacerbation on solumedrol continue BIPAP, diuretics per renal, nebulizers, antibiotics (zithromax for bronchitis/copd exacerbation) monitor vitals pulmonary following (2) Atrial fibrillation Assessment/Plan: On Eliquis 2.5mg BID rate control on toprol 50mg bid, with parameters (3) Interstitial lung disease Assessment/Plan: home oxygen dependent bipap nocturnally, stable oxygen saturations and breathing is non labored. (4) Acute kidney injury superimposed on CKD (5) DM type 2 (diabetes mellitus, type 2) Assessment/Plan: better controlled maintain fasting glucose < 180 on novolog ac/hs levemir 10 (6) HTN (hypertension) Assessment/Plan: stable, was hypotensive on admission, monitor (7) Prophylactic measure Assessment/Plan: fen fluids: tolerating PO, monitor electrolytes daily diabetic diet Visit type - Emergency Visit Emergency Visit: Yes ED Registration Date: 01/02/20 Care time: The patient presented to the Emergency Department on the above date and was hospitalized for further evaluation of their emergent condition. - New Patient This patient is new to me today: Yes Date on this admission: 01/03/20 - Critical Care Critical Care patient: No - Discharge Referral Referred to [facility] No - Medication Review Med list reviewed for High Risk Meds patients 65 and older: Yes
--- NOTE | 2020-01-03 13:38 | EKG ---
Test Reason : Blood Pressure : / mmHG Vent. Rate : 083 BPM Atrial Rate : 056 BPM P-R Int : 000 ms QRS Dur : 112 ms QT Int : 390 ms P-R-T Axes : 000 -29 044 degrees QTc Int : 458 ms POOR DATA QUALITY, INTERPRETATION MAY BE ADVERSELY AFFECTED ATRIAL FIBRILLATION LOW VOLTAGE QRS CANNOT RULE OUT ANTERIOR INFARCT (CITED ON OR BEFORE 21-DEC-2019) ABNORMAL ECG Confirmed by FRANSICO PHAM, HARRY ([id number]) on 01/03/2020 1:38:11 PM Referred By: Confirmed By:HARRY BATEMAN MD
--- NOTE | 2020-01-03 13:54 | CON.PULM ---
Consult Consult Specialty:: PULM/CCM Referred by:: Hospitalist Reason for Consultation:: SOB - History of Present Illness Chief Complaint: SOB History of Present Illness: 89 M, HTN, HPL, CAD s/p CABG, CHF, aortic stenosis, Afib on Eliquis, COPD on 4L nasal cannula, chronic ILD, JUAN on BiPAP, IDDM, BPH, CKD stage 4, and dementia. Admitted via the ER due to progressively worsening dyspnea. He was sent to the ER for evaluation of hypotension (70/4) and hypoxemia (85%). He was recently admitted and discharged on 12/22 for similar complaints. He does have a chronic cough with white phlegm production. No hemoptysis or subjective fever. CXR: minimal left base atelectasis. No apparent travel history or sick contacts. No known COVID19 exposure. 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 bronchiectasis.). No: Asthma, Cancer, Pulmonary Embolus Gastrointestinal: Yes: Ulcerative Colitis (surgery), Other Renal/: Yes: Renal Inusuff, BPH Musculoskeletal: Yes: Osteoarthritis, Other (Neck/shoulder pain) Endocrine: Yes: Diabetes Mellitus - Past Surgical History Past Surgical History: Yes: CABG, Nephrectomy - Alcohol/Substance Use Hx Alcohol Use: No History of Substance Use: reports: None - Smoking History Smoking history: Never smoked Have you smoked in the past 12 months: No If you are a former smoker, when did you quit?: 66 years old - Social History Usual Living Arrangement: With Spouse ADL: Family Assistance 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 History of Recent Travel: No Home Medications - Allergies Allergies/Adverse Reactions: Allergies Allergy/AdvReac Type Severity Reaction Status Date / Time No Known Allergies Allergy Verified 01/02/20 14:51 - Home Medications Home Medications: Ambulatory Orders Sitagliptin Phosphate [Januvia -] 25 mg PO DAILY@0700 #90 tab 10/14/14 Spironolactone [Aldactone -] 25 mg PO DAILY #30 tablet 03/31/17 Aspirin 81 mg PO DAILY 04/10/17 Metoprolol Succinate [Toprol Xl] 50 mg PO BID 02/20/18 Apixaban [Eliquis -] 2.5 mg PO BID 03/30/18 Acetaminophen [Tylenol .Regular Strength -] 650 mg PO Q8H PRN tablet 01/26/19 Colchicine [Colcrys] 0.6 mg PO DAILY cap 01/26/19 Methyl Salicylate/Menthol Oint [Analgesic [place] -] 1 applic TP BID PRN applic 1 03/28/18 Nitroglycerin Sublingual [Nitrostat -] 0.4 mg SL Q5M PRN tab 01/26/19 Tamsulosin HCl [Flomax -] 0.4 mg PO DAILY@0830 cap.er.24h 01/26/19 Torsemide [Demadex -] 100 mg PO BIDLASIX tablet 05/14/19 Insulin (Levemir) [Levemir Vial] 25 units SQ BID@0700,2200 #0 units 12/23/19 Review of Systems - Review of Systems Constitutional: reports: Malaise. denies: Chills, Fever, Loss of Appetite, Night Sweats, Unintentional Wgt. Loss Eyes: reports: No Symptoms HENT: reports: No Symptoms, Ringing in Ears Cardiovascular: reports: Shortness of Breath. denies: Chest Pain, Edema, Palpitations Respiratory: reports: Cough, Snoring, SOB, SOB on Exertion. denies: Hemoptysis, Orthopnea, PND, Wheezing Gastrointestinal: reports: No Symptoms Genitourinary: reports: No Symptoms Breasts: reports: No Symptoms Reported Musculoskeletal: reports: No Symptoms Integumentary: reports: No Symptoms Neurological: reports: No Symptoms Endocrine: reports: No Symptoms Hematology/Lymphatic: reports: No Symptoms Psychiatric: reports: No Symptoms Physical Exam Vital Sings: Vital Signs Temperature 97.6 F 01/03/20 11:08 Pulse Rate 86 01/03/20 11:08 Respiratory Rate 20 01/03/20 11:08 Blood Pressure 104/60 01/03/20 11:08 O2 Sat by Pulse Oximetry (%) 100 01/03/20 11:08 Constitutional: Yes: No Distress, Obese Eyes: Yes: Conjunctiva Clear, EOM Intact HENT: Yes: Atraumatic, Normocephalic Neck: Yes: Supple, Trachea Midline Cardiovascular: Yes: Pulse Irregular Respiratory: Yes: Cough, Diminished, On Nasal O2, Rhonchi, SOB on Exertion. No: Accessory Muscle Use, Rales, SOB, Stridor, Tachypnea, Wheezes ...Inspection: Yes: WNL ...Clubbing: No Gastrointestinal: Yes: Normal Bowel Sounds, Soft, Abdomen, Obese Renal/: Yes: WNL Musculoskeletal: Yes: WNL Extremities: Yes: WNL Edema: No Peripheral Pulses WNL: Yes Integumentary: Yes: WNL Neurological: Yes: WNL, Alert, Oriented ...Motor Strength: WNL Psychiatric: Yes: WNL, Alert, Oriented Labs: CBC, BMP 01/03/20 06:55 01/03/20 06:55 Imaging - Results Chest X-ray: Report Reviewed, Image Reviewed Cat Scan: Report Reviewed, Image Reviewed Problem List - Problems (1) Atelectasis Code(s): J98.11 - ATELECTASIS (2) Hypotension Code(s): I95.9 - HYPOTENSION, UNSPECIFIED Qualifiers: Hypotension type: unspecified hypotension type Qualified Code(s): I95.9 - Hypotension, unspecified (3) ASHD (arteriosclerotic heart disease) Code(s): I25.10 - ATHSCL HEART DISEASE OF [place] CORONARY ARTERY W/O ANG PCTRS (4) Asbestos pleurisy Code(s): J94.8 - OTHER SPECIFIED PLEURAL CONDITIONS (5) Atrial fibrillation Code(s): I48.91 - UNSPECIFIED ATRIAL FIBRILLATION Qualifiers: Atrial fibrillation type: longstanding persistent Qualified Code(s): I48.11 - Longstanding persistent atrial fibrillation (6) Bronchiectasis with (acute) exacerbation Code(s): J47.1 - BRONCHIECTASIS WITH (ACUTE) EXACERBATION (7) CAD (coronary artery disease) Code(s): I25.10 - ATHSCL HEART DISEASE OF [place] CORONARY ARTERY W/O ANG PCTRS Qualifiers: Coronary Disease-Associated Artery/Lesion type: bypass graft, autologous artery Associated angina: without angina Qualified Code(s): I25.810 - Atherosclerosis of coronary artery bypass graft(s) without angina pectoris (8) CKD (chronic kidney disease) Code(s): N18.9 - CHRONIC KIDNEY DISEASE, UNSPECIFIED Qualifiers: Chronic kidney disease stage: stage 3 (moderate) (9) COPD (chronic obstructive pulmonary disease) Code(s): J44.9 - CHRONIC OBSTRUCTIVE PULMONARY DISEASE, UNSPECIFIED (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 Code(s): I50.42 - CHRONIC COMBINED SYSTOLIC AND DIASTOLIC HRT FAIL (11) Chronic respiratory failure with hypercapnia Code(s): J96.12 - CHRONIC RESPIRATORY FAILURE WITH HYPERCAPNIA (12) Cough Code(s): R05 - COUGH (13) DM type 2 (diabetes mellitus, type 2) Code(s): E11.9 - TYPE 2 DIABETES MELLITUS WITHOUT COMPLICATIONS Qualifiers: Diabetes mellitus fpc insulin use: with fpc use Chronic kidney disease stage: stage 4 (severe) (14) HTN (hypertension) Code(s): I10 - ESSENTIAL (PRIMARY) HYPERTENSION (15) Hyperlipidemia Code(s): E78.5 - HYPERLIPIDEMIA, UNSPECIFIED (16) Pulmonary hypertension Code(s): I27.20 - PULMONARY HYPERTENSION, UNSPECIFIED (17) S/P CABG (coronary artery bypass graft) Code(s): Z95.1 - PRESENCE OF AORTOCORONARY BYPASS GRAFT (18) Sleep apnea Code(s): G47.30 - SLEEP APNEA, UNSPECIFIED Qualifiers: Sleep apnea type: unspecified type Qualified Code(s): G47.30 - Sleep apnea, unspecified (19) COPD (chronic obstructive pulmonary disease) with acute bronchitis Code(s): J44.0 - CHR OBSTRUCTIVE PULMON DISEASE WITH (ACUTE) LOWER RESP INFCT; J20.9 - ACUTE BRONCHITIS, UNSPECIFIED (20) COPD with acute exacerbation Code(s): J44.1 - CHRONIC OBSTRUCTIVE PULMONARY DISEASE W (ACUTE) EXACERBATION Assessment/Plan COVID19 serology (-) x 2 Short course of IV Medrol Noted ID evaluation called: Do not suspect PNA. Will give short course of Zmax. Will DC Rocephin. Supplemental O2 as needed NIPPV support QHS and PRN AC BD TX PRN No smoking Will follow Thank you. Dr Martinez
--- NOTE | 2020-01-03 14:02 | CON.ID ---
Consult Consult Specialty:: infectious disease Referred by:: hospitalist Reason for Consultation:: possible pneumonia - History of Present Illness Chief Complaint: sob/hypoxia History of Present Illness: 89 yo man recenlty admitted 12/20 to 12/22 for hypercalcemia- found to have a 1 cm RUL mass- possible malignancy seen in nephrology office yesterday found to be hypoxic and hypotensive no fevers cough unchanged received steroids overnight now feels great and wants to go home - History Source History Provided By: Patient, Medical Record Limitations to Obtaining History: Clinical Condition - Past Medical History 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 bronchiectasis.). No: Asthma, Cancer, Pulmonary Embolus Gastrointestinal: Yes: Ulcerative Colitis (surgery), Other Renal/: Yes: Renal Inusuff, BPH Musculoskeletal: Yes: Osteoarthritis, Other (Neck/shoulder pain) Endocrine: Yes: Diabetes Mellitus - Past Surgical History Past Surgical History: Yes: CABG, Nephrectomy - Alcohol/Substance Use Hx Alcohol Use: No History of Substance Use: reports: None - Smoking History Smoking history: Never smoked Have you smoked in the past 12 months: No If you are a former smoker, when did you quit?: 66 years old - Social History Usual Living Arrangement: With Spouse ADL: Family Assistance 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 History of Recent Travel: No Home Medications - Allergies Allergies/Adverse Reactions: Allergies Allergy/AdvReac Type Severity Reaction Status Date / Time No Known Allergies Allergy Verified 01/02/20 14:51 - Home Medications Home Medications: Ambulatory Orders Sitagliptin Phosphate [Januvia -] 25 mg PO DAILY@0700 #90 tab 10/14/14 Spironolactone [Aldactone -] 25 mg PO DAILY #30 tablet 03/31/17 Aspirin 81 mg PO DAILY 04/10/17 Metoprolol Succinate [Toprol Xl] 50 mg PO BID 02/20/18 Apixaban [Eliquis -] 2.5 mg PO BID 03/30/18 Acetaminophen [Tylenol .Regular Strength -] 650 mg PO Q8H PRN tablet 01/26/19 Colchicine [Colcrys] 0.6 mg PO DAILY cap 01/26/19 Methyl Salicylate/Menthol Oint [Analgesic [place] -] 1 applic TP BID PRN applic 01/26/19 Nitroglycerin Sublingual [Nitrostat -] 0.4 mg SL Q5M PRN tab 01/26/19 Tamsulosin HCl [Flomax -] 0.4 mg PO DAILY@0830 cap.er.24h 01/26/19 Torsemide [Demadex -] 100 mg PO BIDLASIX tablet 05/14/19 Insulin (Levemir) [Levemir Vial] 25 units SQ BID@0700,2200 #0 units 12/23/19 Family Medical History Family History: Unable to Obtain Review of Systems - Review of Systems Constitutional: denies: Chills, Fever Eyes: reports: No Symptoms HENT: reports: No Symptoms Neck: reports: No Symptoms Cardiovascular: denies: Chest Pain Respiratory: reports: Cough (chronic) Gastrointestinal: reports: No Symptoms Genitourinary: reports: No Symptoms Breasts: reports: No Symptoms Reported Physical Exam Vital Signs: Vital Signs Temperature 97.6 F 01/03/20 11:08 Pulse Rate 86 01/03/20 11:08 Respiratory Rate 20 01/03/20 11:08 Blood Pressure 104/60 01/03/20 11:08 O2 Sat by Pulse Oximetry (%) 100 01/03/20 11:08 Constitutional: Yes: Well Nourished, Obese Eyes: Yes: Conjunctiva Clear HENT: Yes: Atraumatic, Normocephalic Neck: Yes: Supple Cardiovascular: Yes: Regular Rate and Rhythm Respiratory: Yes: Regular, Diminished (at bases) Gastrointestinal: Yes: Normal Bowel Sounds, Other (protuberant) ...Rectal Exam: Yes: Deferred Renal/: Yes: WNL Extremities: Yes: WNL Edema: No Psychiatric: Yes: Alert Labs: CBC, BMP 01/03/20 06:55 01/03/20 06:55 calcium 10.8 Imaging - Results Chest X-ray: Report Reviewed, Image Reviewed Problem List - Problems (1) COPD with acute exacerbation Code(s): J44.1 - CHRONIC OBSTRUCTIVE PULMONARY DISEASE W (ACUTE) EXACERBATION (2) CKD (chronic kidney disease) Code(s): N18.9 - CHRONIC KIDNEY DISEASE, UNSPECIFIED Qualifiers: Chronic kidney disease stage: stage 3 (moderate) (3) Hypercalcemia Code(s): E83.52 - HYPERCALCEMIA Assessment/Plan doubt pneumonia suspect copd exacerbation no signs or symptoms of uti can continue zithromax for bronchitis/copd exacerbation- switch to po can d/c rocephin hypercalcemia f/u per renal
[2020-01-03] MEDS ORDERED: ACETAMINOPHEN 325 MG TABLET (FP) PO PRN (14:49)
--- NOTE | 2020-01-03 15:24 | CON.CARD ---
Cardiology Consult (text) - Consultation Consultation Note: Chief Complaint: SOB History of Present Illness: 89 M h/o afib, HTN, HLD, CAD s/p CABG sent from md office for low bp and low o2sat. Pt reports feeling more sob than usual with some increased cough with green sputum. No cp palps dizzy loc pnd orthopnea le edema. Sees dr dumont for cardio. 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 History of Recent Travel: No Home Medications Home Medications Medication Instructions Recorded Sitagliptin Phosphate [Januvia -] 25 mg PO DAILY@0700 #90 tab 10/14/14 Spironolactone [Aldactone -] 25 mg PO DAILY #30 tablet 03/31/17 Aspirin 81 mg PO DAILY 04/10/17 Metoprolol Succinate [Toprol Xl] 50 mg PO BID 02/20/18 Apixaban [Eliquis -] 2.5 mg PO BID 03/30/18 Acetaminophen [Tylenol .Regular 650 mg PO Q8H PRN tablet 01/26/19 Strength -] Colchicine [Colcrys] 0.6 mg PO DAILY cap 01/26/19 Methyl Salicylate/Menthol Oint 1 applic TP BID PRN applic 01/26/19 [Analgesic [place] -] Nitroglycerin Sublingual 0.4 mg SL Q5M PRN tab 01/26/19 [Nitrostat -] Tamsulosin HCl [Flomax -] 0.4 mg PO DAILY@0830 cap.er.24h 01/26/19 Torsemide [Demadex -] 100 mg PO BIDLASIX tablet 05/14/19 Insulin (Levemir) [Levemir Vial] 25 units SQ BID@0700,2200 #0 units 12/23/19 Family Medical History Family History: Unremarkable (not pertinent to this presentation) - Risk Factors Known Risk Factors: Yes: Diabetes Mellitus, Other (Known CAD) Vital Signs: Vital Signs Period Temp Pulse Resp BP Sys/Junior Pulse Ox Last 24 Hr 97.3 F-98.0 F 69-86 16-20 80-118/54-71 97-100 nad no jvd irreg s1s2 no mrg scattered rhocnhi bl nl eff aao3 no le e/c/c abd nd nd pos bs no jaunidce diaphoresis pos dp pt no carotid bruits Laboratory Last Values WBC 9.9 K/mm3 (4.0-10.0) 01/03/20 06:55 RBC 4.22 M/mm3 (4.00-5.60) 01/03/20 06:55 Hgb 13.1 GM/dL (11.7-16.9) 01/03/20 06:55 Hct 38.2 % (35.4-49) 01/03/20 06:55 MCV 90.6 fl (80-96) 01/03/20 06:55 MCH 31.0 pg (25.7-33.7) 01/03/20 06:55 MCHC 34.2 g/dl (32.0-35.9) 01/03/20 06:55 RDW 18.6 % (11.9-15.9) H 01/03/20 06:55 Plt Count 175 K/MM3 (134-434) 01/03/20 06:55 MPV 8.2 fl (7.5-11.1) 01/03/20 06:55 Absolute Neuts (auto) 8.4 K/mm3 (1.5-8.0) H 01/03/20 06:55 Neutrophils % 84.8 % (42.8-82.8) H 01/03/20 06:55 Lymphocytes % 8.0 % (8-40) D 01/03/20 06:55 Monocytes % 3.1 % (3.8-10.2) L 01/03/20 06:55 Eosinophils % 3.5 % (0-4.5) 01/03/20 06:55 Basophils % 0.6 % (0-2.0) 01/03/20 06:55 Nucleated RBC % 0 % (0-0) 01/03/20 06:55 PT with INR 13.80 SEC (9.7-13.0) H 01/02/20 16:30 INR 1.13 (0.83-1.09) H 01/02/20 16:30 PTT (Actin FS) 32.1 SECONDS (25.2-36.5) 01/02/20 16:30 Sodium 134 mmol/L (136-145) L 01/03/20 06:55 Potassium 4.1 mmol/L (3.5-5.1) 01/03/20 06:55 Chloride 92 mmol/L (98-107) L 01/03/20 06:55 Carbon Dioxide 34 mmol/L (21-32) H 01/03/20 06:55 Anion Gap 7 MMOL/L (8-16) L 01/03/20 06:55 BUN 63.8 mg/dL (7-18) H 01/03/20 06:55 Creatinine 2.4 mg/dL (0.55-1.3) H 01/03/20 06:55 Est GFR (CKD-EPI)AfAm 26.90 01/03/20 06:55 Est GFR (CKD-EPI)NonAf 23.21 01/03/20 06:55 POC Glucometer 295 UNITS (80-120) 01/03/20 11:21 Random Glucose 186 mg/dL (74-106) H 01/03/20 06:55 Calcium 10.4 mg/dL (8.5-10.1) H 01/03/20 06:55 Phosphorus 3.8 mg/dL (2.5-4.9) 01/03/20 06:55 Magnesium 2.2 mg/dL (1.8-2.4) 01/03/20 06:55 Total Bilirubin 1.0 mg/dL (0.2-1) 01/03/20 06:55 AST 40 U/L (15-37) H 01/03/20 06:55 ALT 61 U/L (13-61) 01/03/20 06:55 Alkaline Phosphatase 73 U/L (45-117) 01/03/20 06:55 Creatine Kinase 29 U/L (26-308) 01/02/20 16:30 Troponin I < 0.02 ng/ml (0.00-0.05) 01/02/20 16:30 B-Natriuretic Peptide 1234.2 pg/ml (5-450) H 01/02/20 16:30 Total Protein 7.1 g/dl (6.4-8.2) 01/03/20 06:55 Albumin 3.4 g/dl (3.4-5.0) 01/03/20 06:55 Urine Color Yellow 01/02/20 21:50 Urine Appearance Clear 01/02/20 21:50 Urine pH 5.0 (5.0-8.0) D 01/02/20 21:50 Ur Specific [place] 1.011 (1.010-1.035) 01/02/20 21:50 Urine Protein Negative (NEGATIVE) 01/02/20 21:50 Urine Glucose (UA) Negative (NEGATIVE) 01/02/20 21:50 Urine Ketones Negative (NEGATIVE) 01/02/20 21:50 Urine Blood Negative (NEGATIVE) 01/02/20 21:50 Urine Nitrite Negative (NEGATIVE) 01/02/20 21:50 Urine Bilirubin Negative (NEGATIVE) 01/02/20 21:50 Urine Urobilinogen 0.2 mg/dL (0.2-1.0) 01/02/20 21:50 Ur Leukocyte Esterase 1+ (NEGATIVE) H 01/02/20 21:50 Urine WBC (Auto) 99 /uL (0-25.8) 01/02/20 21:50 Urine RBC (Auto) 4 /uL (0-23.9) 01/02/20 21:50 Urine Casts (Auto) 1 /uL (0-3.1) 01/02/20 21:50 U Epithel Cells (Auto) 24 /uL (0-25.1) 01/02/20 21:50 Urine Bacteria (Auto) 29 /uL (0-1359) 01/02/20 21:50 COVID-19 (BLAISE) Not detected (Not Detected) 01/02/20 17:00 DATA: Echo 04/2019: diastolic dysfx, moderate ecg: afib 83, no ischemic changes cxr: mild congestion a/p: 89 M h/o afib, HTN, HLD, CAD s/p CABG, copd, as sent from md office for low bp and low o2sat. hypoxia, sob, hypotension, copd, chornic diastolic chf: -possible septic picture, agree with abx, iv steroids, pulm, ID consulted -no signs acs -does not appear vol overloaded, hold diuretic for now given low bp afib: -cont ac -hold home bb for now given low bp, monitor on tele htn: -hold home meds due to hypotension cad: -stable, no signs acs -cont ac as: -stable, mod as on recent echo ckd: -cr near baseline
[2020-01-03 16:23] VITALS: BMI 36.6
--- NOTE | 2020-01-03 16:31 | CONSULT ---
Consult Consult Specialty:: Nephrology Reason for Consultation:: ckd - History of Present Illness Chief Complaint: sent in for shortness of breath History of Present Illness: Pt is an 89 year old man with pmhx of cad, ckd, lung mass, cab, chf, a-fib who I sent in from the office yesterday. He presented for follow up visit and was found to be hypotensive with a bp of 70/40. He was also hypoxic at 84. He appeared to be in resp distress and was gasping for air so I sent him to the ER. He was given steroids. He feels better today. 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 bronchiectasis.). No: Asthma, Cancer, Pulmonary Embolus Gastrointestinal: Yes: Ulcerative Colitis (surgery), Other Renal/: Yes: Renal Inusuff, BPH Musculoskeletal: Yes: Osteoarthritis, Other (Neck/shoulder pain) Endocrine: Yes: Diabetes Mellitus - Past Surgical History Past Surgical History: Yes: CABG, Nephrectomy - Alcohol/Substance Use Hx Alcohol Use: No History of Substance Use: reports: None - Smoking History Smoking history: Never smoked Have you smoked in the past 12 months: No If you are a former smoker, when did you quit?: 66 years old - Social History Usual Living Arrangement: With Spouse ADL: Family Assistance 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 History of Recent Travel: No Home Medications - Allergies Allergies/Adverse Reactions: Allergies Allergy/AdvReac Type Severity Reaction Status Date / Time No Known Allergies Allergy Verified 01/02/20 14:51 - Home Medications Home Medications: Ambulatory Orders Sitagliptin Phosphate [Januvia -] 25 mg PO DAILY@0700 #90 tab 10/14/14 Spironolactone [Aldactone -] 25 mg PO DAILY #30 tablet 03/31/17 Aspirin 81 mg PO DAILY 04/10/17 Metoprolol Succinate [Toprol Xl] 50 mg PO BID 02/20/18 Apixaban [Eliquis -] 2.5 mg PO BID 03/30/18 Acetaminophen [Tylenol .Regular Strength -] 650 mg PO Q8H PRN tablet 01/26/19 Colchicine [Colcrys] 0.6 mg PO DAILY cap 01/26/19 Methyl Salicylate/Menthol Oint [Analgesic [place] -] 1 applic TP BID PRN applic 01/26/19 Nitroglycerin Sublingual [Nitrostat -] 0.4 mg SL Q5M PRN tab 01/26/19 Tamsulosin HCl [Flomax -] 0.4 mg PO DAILY@0830 cap.er.24h 01/26/19 Torsemide [Demadex -] 100 mg PO BIDLASIX tablet 05/14/19 Insulin (Levemir) [Levemir Vial] 25 units SQ BID@0700,2200 #0 units 12/23/19 Family Medical History Family History: Unable to Obtain Review of Systems Unable to obtain ROS, reason: see hpi Physical Exam Vital Signs: Vital Signs Temperature 97.4 F L 01/03/20 15:15 Pulse Rate 70 01/03/20 15:15 Respiratory Rate 20 01/03/20 15:15 Blood Pressure 101/71 01/03/20 15:15 O2 Sat by Pulse Oximetry (%) 100 01/03/20 15:15 Constitutional: Yes: Calm Eyes: Yes: Conjunctiva Clear HENT: Yes: Atraumatic Cardiovascular: Yes: S1, S2 Respiratory: Yes: Wheezes Gastrointestinal: Yes: Soft Renal/: Yes: WNL Musculoskeletal: Yes: WNL Edema: Yes Edema: LLE: 1+, RLE: 1+ Neurological: Yes: Oriented Psychiatric: Yes: Oriented Labs: CBC, BMP 01/03/20 06:55 01/03/20 06:55 Imaging - Results Chest X-ray: Report Reviewed Problem List - Problems (1) CHF, acute on chronic Code(s): I50.9 - HEART FAILURE, UNSPECIFIED Qualifiers: Heart failure type: unspecified Qualified Code(s): I50.9 - Heart failure, unspecified (2) Hypotension Code(s): I95.9 - HYPOTENSION, UNSPECIFIED Qualifiers: Hypotension type: unspecified hypotension type Qualified Code(s): I95.9 - Hypotension, unspecified Assessment/Plan Current Medications Generic Name Dose Route Start Last Admin Trade Name Freq PRN Reason Stop Dose Admin Acetaminophen 650 mg 01/03/20 14:49 Tylenol - PO Q6H PRN PAIN LEVEL 6-10 Albuterol Sulfate 2 puff 01/03/20 03:56 Ventolin Hfa Inhaler - IH Q4H PRN SHORT OF BREATH/WHEEZING Apixaban 2.5 mg 01/03/20 10:00 01/03/20 09:49 Eliquis - PO 2.5 mg BID JOE Administration Guaifenesin 10 ml 01/03/20 14:43 Robitussin - PO BID PRN COUGH Azithromycin 250 mg/ Dextrose 250 mls @ 250 mls/hr 01/03/20 10:00 01/03/20 09:49 IVPB 01/06/20 10:59 250 mls/hr DAILY JOE Administration Insulin Aspart 1 vial 01/03/20 07:00 01/03/20 11:37 Novolog Vial Sliding Scale - SQ 6 units ACHS JOE Administration Protocol Methylprednisolone Sodium Succinate 40 mg 01/03/20 03:00 01/03/20 09:49 Solu-Medrol - IVPUSH 40 mg Q8H-IV JOE Administration Impression 1. hypercalcemia 2. lung mass 3. DM 4. CHF 5. ILD 6. HTN 7. CKD 8. Pulm HTN 9. hypotension 10. hypoxia Plan - pt is clinically improved - repeat labs in am - monitor calcium level - will get outpt pet scan for lung mass - monitor lytes
[2020-01-03] MEDS ORDERED: INSULIN (LEVEMIR) 100 UNITS/ML UNITS SQ SCH (22:00)
[2020-01-03] MEDS ORDERED: guaiFENesin 200 MG/10 ML 10 ML UNIT-DOSE CUPS PO SCH (22:00)
[2020-01-04] MEDS: methylPREDNISolone NA SUCC 40 MG/1 ML VIAL IVPUSH SCH ×3 (01:52→19:00)
--- NOTE | 2020-01-04 06:02 | PN ---
Progress Note, Physician Chief Complaint: weight down, eating breakfast, feels better TELE: Controlled AF, rare PVC History of Present Illness: occupational lung dz ASHD AF KOFI Nonsmoker - Current Medication List Current Medications: Active Medications Acetaminophen (Tylenol -) 650 mg PO Q6H PRN PRN Reason: PAIN LEVEL 6-10 Albuterol Sulfate (Ventolin Hfa Inhaler -) 2 puff IH Q4H PRN PRN Reason: SHORT OF BREATH/WHEEZING Apixaban (Eliquis -) 2.5 mg PO BID [facility] Last Admin: 01/03/20 22:04 Dose: 2.5 mg Documented by: Guaifenesin (Robitussin -) 10 ml PO BID PRN PRN Reason: COUGH Azithromycin 250 mg/ Dextrose 250 mls @ 250 mls/hr IVPB DAILY [facility] Stop: 01/06/20 10:59 Last Admin: 01/03/20 09:49 Dose: 250 mls/hr Documented by: Insulin Aspart (Novolog Vial Sliding Scale -) 1 vial SQ [facility]; Protocol Last Admin: 01/03/20 22:04 Dose: 6 units Documented by: Insulin Detemir (Levemir Vial) 10 units SQ HS [facility] Last Admin: 01/03/20 22:04 Dose: 10 units Documented by: Methylprednisolone Sodium Succinate (Solu-Medrol -) 40 mg IVPUSH Q8H-IV [facility] Last Admin: 01/04/20 01:52 Dose: 40 mg Documented by: - Objective Vital Signs: Vital Signs Temperature 97.7 F 01/04/20 02:00 Pulse Rate 72 01/04/20 02:00 Respiratory Rate 18 01/04/20 02:00 Blood Pressure 131/74 01/04/20 02:00 O2 Sat by Pulse Oximetry (%) 97 01/04/20 02:00 Constitutional: Yes: No Distress Eyes: Yes: Conjunctiva Clear, EOM Intact HENT: Yes: Atraumatic, Normocephalic Neck: Yes: Trachea Midline Cardiovascular: Yes: Pulse Irregular Respiratory: Yes: Cough, Rhonchi Gastrointestinal: Yes: Soft, Abdomen, Obese Edema: No Peripheral Pulses WNL: Yes Neurological: Yes: Alert, Oriented ...Motor Strength: WNL Labs: CBC, BMP 01/03/20 06:55 01/03/20 06:55 INR, PTT INR 1.13 (0.83-1.09) H 01/02/20 16:30 Selected Entries 01/02/20 01/04/20 14:48 06:00 Weight 238 lb 225 lb Laboratory Tests 01/04/20 01/04/20 06:25 06:25 WBC 12.5 H Hgb 12.9 Plt Count 180 Sodium 133 L Potassium 4.3 Creatinine 2.6 H Assessment/Plan DATA: Echo 04/2019: diastolic dysfx, moderate ecg: afib 83, no ischemic changes cxr: mild congestion a/p: 89 M h/o afib, HTN, HLD, CAD s/p CABG, copd, as sent from md office for low bp and low o2sat. hypoxia, sob, hypotension, copd, chornic diastolic chf: -possible septic picture, agree with abx, iv steroids, pulm, ID consulted -no signs acs -does not appear vol overloaded, hold diuretic for now given low bp and KOFI afib: -cont ac -hold home bb for now given low bp, monitor on tele. -IF BP remains stable over next 24 hours, can resume 01/04 htn: -hold home meds due to hypotension, slowly resolving. cad: -stable, no signs acs -cont ac as: -stable, mod as on recent echo ckd: -cr baseline is 1.8-2.0
[2020-01-04] MEDS: INSULIN SLIDING SCALE (NOVOLOG) 1 VIAL SQ SCH ×4 (06:29→22:16)
[2020-01-04 07:05] LABS: BASO % 0.2 % (0-2.0); EOS % 0.1 % (0-4.5); HEMATOCRIT 38.1 % (35.4-49); HEMOGLOBIN 12.9 GM/dL (11.7-16.9); LYMPH % 6.3 % (8-40); MCH 30.7 pg (25.7-33.7); MCHC 33.8 g/dl (32.0-35.9); MEAN CELL VOLUME 90.9 fl (80-96); MEAN PLT VOLUME 8.3 fl (7.5-11.1); MONO % 2.1 % (3.8-10.2); NEUT % 91.3 % (42.8-82.8); PLATELET COUNT 180 K/MM3 (134-434); RBC 4.19 M/mm3 (4.00-5.60); RDW 18.6 % (11.9-15.9); WHITE BLOOD COUNT 12.5 K/mm3 (4.0-10.0)
[2020-01-04 07:42] LABS: ALBUMIN 3.3 g/dl (3.4-5.0); BLOOD UREA NITROGEN 76.7 mg/dL (7-18); CALCIUM 9.7 mg/dL (8.5-10.1); MAGNESIUM 2.5 mg/dL (1.8-2.4); POTASSIUM 4.3 mmol/L (3.5-5.1)
[2020-01-04 07:46] LABS: BILIRUBIN,TOTAL 0.4 mg/dL (0.2-1); CREATININE 2.6 mg/dL (0.55-1.3); TOT PROT 6.9 g/dl (6.4-8.2)
[2020-01-04] MEDS: AZITHROMYCIN IVPB 250 MG in DEXTROSE 5%-WATER - 250 ML IVPB SCH (09:33)
[2020-01-04] MEDS: APIXABAN 2.5 MG TABLET PO SCH ×2 (09:33→21:47)
[2020-01-04] MEDS ORDERED: PCA PUMP NR ONE (10:12)
[2020-01-04 13:31] LABS: OVALOCYTE 1+
[2020-01-04 13:32] LABS: PLATELET ESTIMATE NORMAL
[2020-01-04] MEDS ORDERED: INSULIN (LEVEMIR) 100 UNITS/ML UNITS SQ ONE ×2 (13:54)
--- NOTE | 2020-01-04 13:54 | PN ---
Progress Note, Physician History of Present Illness: Pt seen and examined at bedside. He is awake and alert. He feels that his breathing is improved. - Current Medication List Current Medications: Active Medications Acetaminophen (Tylenol -) 650 mg PO Q6H PRN PRN Reason: PAIN LEVEL 6-10 Albuterol Sulfate (Ventolin Hfa Inhaler -) 2 puff IH Q4H PRN PRN Reason: SHORT OF BREATH/WHEEZING Apixaban (Eliquis -) 2.5 mg PO BID [facility] Last Admin: 01/04/20 09:33 Dose: 2.5 mg Documented by: Guaifenesin (Robitussin -) 10 ml PO BID PRN PRN Reason: COUGH Azithromycin 250 mg/ Dextrose 250 mls @ 250 mls/hr IVPB DAILY [facility] Stop: 01/06/20 10:59 Last Admin: 01/04/20 09:33 Dose: 250 mls/hr Documented by: Insulin Aspart (Novolog Vial Sliding Scale -) 1 vial SQ [facility]; Protocol Last Admin: 01/04/20 11:33 Dose: 10 units Documented by: Insulin Detemir (Levemir Vial) 10 units SQ [facility] Last Admin: 01/03/20 22:04 Dose: 10 units Documented by: Methylprednisolone Sodium Succinate (Solu-Medrol -) 40 mg IVPUSH Q8H-IV [facility] Last Admin: 01/04/20 09:33 Dose: 40 mg Documented by: - Objective Vital Signs: Vital Signs Temperature 97.8 F 01/04/20 13:48 Pulse Rate 88 01/04/20 13:48 Respiratory Rate 18 01/04/20 13:48 Blood Pressure 125/71 01/04/20 13:48 O2 Sat by Pulse Oximetry (%) 99 01/04/20 10:00 Constitutional: Yes: Calm Eyes: Yes: Conjunctiva Clear HENT: Yes: Atraumatic Neck: Yes: Supple Cardiovascular: Yes: S1, S2 Respiratory: Yes: On Nasal O2, Wheezes Gastrointestinal: Yes: Soft Genitourinary: Yes: WNL Musculoskeletal: Yes: WNL Edema: Yes Edema: LLE: 1+, RLE: 1+ Neurological: Yes: Oriented Psychiatric: Yes: Oriented Labs: CBC, BMP 01/04/20 06:25 01/04/20 06:25 INR, PTT INR 1.13 (0.83-1.09) H 10/14/20 16:30 Problem List - Problems (1) CHF, acute on chronic Code(s): I50.9 - HEART FAILURE, UNSPECIFIED Qualifiers: Heart failure type: unspecified Qualified Code(s): I50.9 - Heart failure, unspecified (2) Hypotension Code(s): I95.9 - HYPOTENSION, UNSPECIFIED Qualifiers: Hypotension type: unspecified hypotension type Qualified Code(s): I95.9 - Hypotension, unspecified Assessment/Plan Current Medications Generic Name Dose Route Start Last Admin Trade Name Freq PRN Reason Stop Dose Admin Acetaminophen 650 mg 01/03/20 14:49 Tylenol - PO Q6H PRN PAIN LEVEL 6-10 Albuterol Sulfate 2 puff 01/03/20 03:56 Ventolin Hfa Inhaler - IH Q4H PRN SHORT OF BREATH/WHEEZING Apixaban 2.5 mg 01/03/20 10:00 01/04/20 09:33 Eliquis - PO 2.5 mg BID JOE Administration Guaifenesin 10 ml 01/03/20 14:43 Robitussin - PO BID PRN COUGH Azithromycin 250 mg/ Dextrose 250 mls @ 250 mls/hr 01/03/20 10:00 01/04/20 09:33 IVPB 01/06/20 10:59 250 mls/hr DAILY JOE Administration Insulin Aspart 1 vial 01/03/20 07:00 01/04/20 11:33 Novolog Vial Sliding Scale - SQ 10 units ACHS JOE Administration Protocol Insulin Detemir 10 units 01/03/20 22:00 01/03/20 22:04 Levemir Vial SQ 10 units HS JOE Administration Methylprednisolone Sodium Succinate 40 mg 01/03/20 03:00 01/04/20 09:33 Solu-Medrol - IVPUSH 40 mg Q8H-IV JOE Administration Impression 1. hypercalcemia 2. lung mass 3. DM 4. CHF 5. ILD 6. HTN 7. CKD 8. Pulm HTN 9. hypotension 10. hypoxia Plan - pt improved with steroids - cont with taper as tolerated - monitor lytes - cardio input appreciated - calcium level is improved - pt will get pet scan as outpt
--- NOTE | 2020-01-04 14:05 | PN ---
Physical Exam: SUBJECTIVE: Patient seen and examined. tells me that after he coughs, he has chest pressure, midsternal and non radiating. OBJECTIVE: Patient is an 89 year old man PMH htn, hld, CAD s/p CABG, CHF, aortic stenosis, Afib on Eliquis, COPD on 4L nasal cannula, chronic ILD, JUAN on BiPAP, IDDM, BPH, CKD stage 4, and dementia presenting with worsening dyspnea. He was being seen by his neprhologist when his BP was found to be 70/40 in the office. (He normally runs around 90/60). Patient states he has had increasing dyspnea the past several days. Reports a chronic cough, with white phlegm production. Denies fever, chills, nausea, vomiting, abdominal pain, dysuria, LE edema. States he lives at home with his , and is attended by a home health aid 5 days out of the week who assists with his medications. Vital Signs Period Temp Pulse Resp BP Sys/Junior Pulse Ox Last 24 Hr 97.4 F-98.0 F 67-108 18-20 101-131/56-76 97-100 GENERAL: The patient is awake, alert, and fully oriented, in no acute distress. HEAD: Normal with no signs of trauma. EYES: PERRL, extraocular movements intact, sclera anicteric, conjunctiva clear. No ptosis. ENT: Ears normal, nares patent, oropharynx clear without exudates NECK: Trachea midline, full range of motion, supple. LUNGS: + crackles at left base. right lung clear. HEART: Regular rate and rhythm, ABDOMEN: Soft, nontender, distended but soft EXTREMITIES: trace edema bilterally NEUROLOGICAL: Normal speech, gait not observed. + facial symmetry PSYCH: Normal mood, normal affect. SKIN: Warm, dry, normal turgor, no rashes or lesions noted Laboratory Results - last 24 hr 01/04/20 01/04/20 01/04/20 06:25 06:25 11:32 WBC 12.5 H RBC 4.19 Hgb 12.9 Hct 38.1 MCV 90.9 MCH 30.7 MCHC 33.8 RDW 18.6 H Plt Count 180 MPV 8.3 Absolute Neuts (auto) 11.4 H Total Counted 100 Neutrophils % 91.3 H Neutrophils % (Manual) 91.0 H D Band Neutrophils % 1.0 Lymphocytes % 6.3 L D Lymphocytes % (Manual) 5.0 L D Monocytes % 2.1 L Monocytes % (Manual) 3 L D Eosinophils % 0.1 D Basophils % 0.2 Nucleated RBC % 0 Platelet Estimate Normal Platelet Comment No clumping noted Polychromasia 1+ Poikilocytosis 1+ Ovalocytes 1+ Stomatocytes 1+ Sodium 133 L Potassium 4.3 Chloride 92 L Carbon Dioxide 34 H Anion Gap 7 L BUN 76.7 H Creatinine 2.6 H Est GFR (CKD-EPI)AfAm 24.42 Est GFR (CKD-EPI)NonAf 21.07 POC Glucometer 358 Random Glucose 275 H Calcium 9.7 Magnesium 2.5 H Total Bilirubin 0.4 AST 22 ALT 48 Alkaline Phosphatase 66 Total Protein 6.9 Albumin 3.3 L Active Medications Generic Name Dose Route Start Last Admin Trade Name Freq PRN Reason Stop Dose Admin Acetaminophen 650 mg 01/03/20 14:49 Tylenol - PO Q6H PRN PAIN LEVEL 6-10 Albuterol Sulfate 2 puff 01/03/20 03:56 Ventolin Hfa Inhaler - IH Q4H PRN SHORT OF BREATH/WHEEZING Apixaban 2.5 mg 01/03/20 10:00 01/04/20 09:33 Eliquis - PO 2.5 mg BID JOE Administration Guaifenesin 10 ml 01/03/20 14:43 Robitussin - PO BID PRN COUGH Azithromycin 250 mg/ Dextrose 250 mls @ 250 mls/hr 01/03/20 10:00 01/04/20 09:33 IVPB 01/06/20 10:59 250 mls/hr DAILY JOE Administration Insulin Aspart 1 vial 01/04/20 14:05 Novolog Vial Sliding Scale - SQ ACHS [facility] Protocol Insulin Detemir 10 units 01/04/20 13:54 Levemir Vial SQ 01/04/20 13:55 ONCE ONE Insulin Detemir 10 units 01/04/20 22:00 Levemir Vial SQ BID JOE Methylprednisolone Sodium Succinate 40 mg 01/03/20 03:00 01/04/20 09:33 Solu-Medrol - IVPUSH 40 mg Q8H-IV JOE Administration ASSESSMENT/PLAN: Acute respiratory failure with hypoxia Assessment/Plan: Likely secondary to copd exacerbation on solumedrol 40 q 8 continue BIPAP, diuretics per renal, nebulizers, antibiotics (zithromax for bronchitis/copd exacerbation) monitor vitals pulmonary following Atrial fibrillation Assessment/Plan: On Eliquis 2.5mg BID rate control on toprol 50mg bid, with parameters Interstitial lung disease Assessment/Plan: home oxygen dependent bipap nocturnally, stable oxygen saturations and breathing is non labored. Acute kidney injury superimposed on CKD Being followed by renal DM type 2 (diabetes mellitus, type 2) Assessment/Plan: monitor in the presence of steriods for copd maintain fasting glucose < 180 on novolog ac/hs levemir 25mg bid HTN (hypertension) Assessment/Plan: stable, was hypotensive on admission, bp now more stable Chest Pain chest pain after coughing, likely pleuritic ekg ordered, troponins ordered monitor on tele Prophylactic measure Assessment/Plan: fen fluids: tolerating PO, monitor electrolytes daily diabetic diet Visit type - Emergency Visit Emergency Visit: Yes ED Registration Date: 01/02/20 Care time: The patient presented to the Emergency Department on the above date and was hospitalized for further evaluation of their emergent condition. - New Patient This patient is new to me today: No - Critical Care Critical Care patient: No - Discharge Referral Referred to [facility] Med P.C.: No - Medication Review Med list reviewed for High Risk Meds patients 65 and older: Yes
[2020-01-04] MEDS ORDERED: POLYETHYLENE GLYCOL 3350 119 GM BTL PO ONE (17:37)
[2020-01-04] MEDS ORDERED: PT OWN MED DRAWER 7, Y5N ONE (18:55)
[2020-01-04] MEDS: INSULIN (LEVEMIR) 100 UNITS/ML UNITS SQ SCH (21:47)
[2020-01-04] MEDS ORDERED: INSULIN (LEVEMIR) 100 UNITS/ML UNITS SQ SCH (22:00)
[2020-01-05] MEDS: methylPREDNISolone NA SUCC 40 MG/1 ML VIAL IVPUSH SCH ×3 (02:00→17:46)
[2020-01-05] MEDS: INSULIN SLIDING SCALE (NOVOLOG) 1 VIAL SQ SCH ×4 (06:00→22:07)
[2020-01-05] MEDS: INSULIN (LEVEMIR) 100 UNITS/ML UNITS SQ SCH ×2 (06:47→22:06)
[2020-01-05 07:43] LABS: BASO % 0.3 % (0-2.0); HEMATOCRIT 40.5 % (35.4-49); HEMOGLOBIN 13.6 GM/dL (11.7-16.9); LYMPH % 5.3 % (8-40); MCH 31.1 pg (25.7-33.7); MCHC 33.6 g/dl (32.0-35.9); MEAN CELL VOLUME 92.6 fl (80-96); MEAN PLT VOLUME 8.7 fl (7.5-11.1); MONO % 2.6 % (3.8-10.2); NEUT % 91.8 % (42.8-82.8); PLATELET COUNT 172 K/MM3 (134-434); RBC 4.37 M/mm3 (4.00-5.60); RDW 18.8 % (11.9-15.9); WHITE BLOOD COUNT 13.1 K/mm3 (4.0-10.0)
[2020-01-05 07:44] LABS: CHLORIDE 95 mmol/L (98-107); POTASSIUM 4.8 mmol/L (3.5-5.1); SODIUM 137 mmol/L (136-145)
[2020-01-05 07:47] LABS: ALBUMIN 3.4 g/dl (3.4-5.0); ANION GAP 7 MMOL/L (8-16); BLOOD UREA NITROGEN 73.8 mg/dL (7-18); CALCIUM 9.9 mg/dL (8.5-10.1); CO2 35 mmol/L (21-32); GLUCOSE,RANDOM 174 mg/dL (74-106)
[2020-01-05 07:48] LABS: MAGNESIUM 2.7 mg/dL (1.8-2.4)
[2020-01-05 07:50] LABS: CREATININE 2.2 mg/dL (0.55-1.3); SGOT/AST 20 U/L (15-37); SGPT/ALT 43 U/L (13-61)
[2020-01-05 07:52] LABS: BILIRUBIN,TOTAL 0.4 mg/dL (0.2-1); TOT PROT 7.1 g/dl (6.4-8.2)
[2020-01-05 07:53] LABS: ALK PHOS 66 U/L (45-117)
--- NOTE | 2020-01-05 08:28 | PN ---
Progress Note, Physician Chief Complaint: hypoxia History of Present Illness: coughing a lot breathing better no leg swelling no cp ex-cigs - Current Medication List Current Medications: Active Medications Acetaminophen (Tylenol -) 650 mg PO Q6H PRN PRN Reason: PAIN LEVEL 6-10 Albuterol Sulfate (Ventolin Hfa Inhaler -) 2 puff IH Q4H PRN PRN Reason: SHORT OF BREATH/WHEEZING Apixaban (Eliquis -) 2.5 mg PO BID [facility] Last Admin: 01/04/20 21:47 Dose: 2.5 mg Documented by: Guaifenesin (Robitussin -) 10 ml PO BID PRN PRN Reason: COUGH Azithromycin 250 mg/ Dextrose 250 mls @ 250 mls/hr IVPB DAILY [facility] Stop: 01/06/20 10:59 Last Admin: 01/04/20 09:33 Dose: 250 mls/hr Documented by: Insulin Aspart (Novolog Vial Sliding Scale -) 1 vial SQ [facility]; Protocol Last Admin: 01/05/20 06:00 Dose: Not Given Documented by: Insulin Detemir (Levemir Vial) 25 units SQ BID@0700,2200 [facility] Last Admin: 01/05/20 06:47 Dose: 25 units Documented by: Methylprednisolone Sodium Succinate (Solu-Medrol -) 40 mg IVPUSH Q8H-IV [facility] Last Admin: 01/05/20 02:00 Dose: 40 mg Documented by: - Objective Vital Signs: Vital Signs Temperature 97.8 F 01/05/20 06:00 Pulse Rate 78 01/05/20 06:00 Respiratory Rate 20 01/05/20 06:00 Blood Pressure 121/52 L 01/05/20 06:00 O2 Sat by Pulse Oximetry (%) 98 01/05/20 06:00 Constitutional: Yes: No Distress, Calm, Obese Eyes: No: Sclera Icterus HENT: No: Nasal Congestion Cardiovascular: Yes: Regular Rate and Rhythm, S1, S2, Other (PMI non diplaced). No: Gallop, Murmur Respiratory: Yes: CTA Bilaterally, Rales (LLL). No: Accessory Muscle Use, Wheezes, Other Gastrointestinal: Yes: Normal Bowel Sounds, Soft. No: Tenderness Musculoskeletal: Yes: Other (No kyphosis) Extremities: No: Cold, Cyanosis Edema: No Integumentary: No: Jaundice Neurological: Yes: Alert, Oriented (x3) Psychiatric: No: Agitated Labs: CBC, BMP 01/05/20 06:50 01/05/20 06:50 INR, PTT INR 1.13 (0.83-1.09) H 01/02/20 16:30 Assessment/Plan Echo 04/2019: diastolic dysfx, moderate ecg: afib 83, no ischemic changes cxr: mild congestion a/p: 89 M h/o afib, HTN, HLD, CAD s/p CABG, copd, as sent from md office for low bp and low o2sat. hypoxia, sob, hypotension, copd, chronic diastolic chf, pulm HTN: -prior echoes with at least moderate pulm HTN, RV not well seen--? WHO 2 vs 3 vs mixed etiology -likely a.e. copd--abx and airways tx per pulm, ID -no signs acs -dry weight unknown (bedscale wts only on recent admits) -initial cxr mild congestion--? chronic changes? -no edema, sob improved. LLL rales--rpt cxr. continue holding diuretic for now given KOFI, not yet back to baseline renal fxn afib: -cont ac -hold home bb for now given low bp, monitor on tele. -bp stable at present--resume metopr succ 50 but qd instead of prior bid dose, while assess for hypotension htn: -cut back home meds due to hypotension, slowly resolving. cad: -stable, no signs acs -cont ac as: -stable, mod as on recent echo -outpt surveillance ckd: -cr baseline is 1.8-2.0
[2020-01-05] MEDS: APIXABAN 2.5 MG TABLET PO SCH ×2 (10:34→22:06)
[2020-01-05] MEDS: AZITHROMYCIN IVPB 250 MG in DEXTROSE 5%-WATER - 250 ML IVPB SCH (10:35)
[2020-01-05] MEDS ORDERED: SENNOSIDES 8.6MG TABLET (FP) PO PRN (10:50)
[2020-01-05] MEDS: POLYETHYLENE GLYCOL 3350 119 GM BTL PO SCH (12:01)
[2020-01-05] MEDS: DOCUSATE SODIUM 100 MG CAPSULE (FP) PO SCH ×2 (14:01→22:06)
--- NOTE | 2020-01-05 16:43 | PN ---
Physical Exam: SUBJECTIVE: Patient seen and examined. sitting up in the chair, denies chest pain or discomfort. OBJECTIVE: Patient is an 89 year old man PMH htn, hld, CAD s/p CABG, CHF, aortic stenosis, Afib on Eliquis, COPD on 4L nasal cannula, chronic ILD, JUAN on BiPAP, IDDM, BPH, CKD stage 4, and dementia presenting with worsening dyspnea. He was being seen by his neprhologist when his BP was found to be 70/40 in the office. (He normally runs around 90/60). Patient states he has had increasing dyspnea the past several days. Reports a chronic cough, with white phlegm production. Denies fever, chills, nausea, vomiting, abdominal pain, dysuria, LE edema. States he lives at home with his , and is attended by a home health aid 5 days out of the week who assists with his medications. Vital Signs Period Temp Pulse Resp BP Sys/Junior Pulse Ox Last 24 Hr 97.6 F-98.3 F 76-87 18-20 103-125/52-80 94-100 GENERAL: The patient is awake, alert, and fully oriented, in no acute distress. HEAD: Normal with no signs of trauma. EYES: PERRL, extraocular movements intact, sclera anicteric, conjunctiva clear. No ptosis. ENT: Ears normal, nares patent, oropharynx clear without exudates NECK: Trachea midline, full range of motion, supple. LUNGS: + crackles at left base. right lung clear. HEART: Regular rate and rhythm, ABDOMEN: Soft, nontender, distended but soft EXTREMITIES: trace edema bilterally NEUROLOGICAL: Normal speech, gait not observed. + facial symmetry PSYCH: Normal mood, normal affect. SKIN: Warm, dry, normal turgor, no rashes or lesions noted Laboratory Results - last 24 hr 01/04/20 01/04/20 01/05/20 16:54 21:46 05:45 WBC RBC Hgb Hct MCV MCH MCHC RDW Plt Count MPV Absolute Neuts (auto) Neutrophils % Neutrophils % (Manual) Lymphocytes % Lymphocytes % (Manual) Monocytes % Monocytes % (Manual) Eosinophils % Basophils % Nucleated RBC % Sodium Potassium Chloride Carbon Dioxide Anion Gap BUN Creatinine Est GFR (CKD-EPI)AfAm Est GFR (CKD-EPI)NonAf POC Glucometer 364 592 142 Random Glucose Calcium Magnesium Total Bilirubin AST ALT Alkaline Phosphatase Troponin I Total Protein Albumin 01/05/20 01/05/20 06:50 06:50 WBC 13.1 H RBC 4.37 Hgb 13.6 Hct 40.5 MCV 92.6 MCH 31.1 MCHC 33.6 RDW 18.8 H Plt Count 172 MPV 8.7 Absolute Neuts (auto) 12.0 H Neutrophils % 91.8 H Neutrophils % (Manual) 90.0 H Lymphocytes % 5.3 L Lymphocytes % (Manual) 8.0 D Monocytes % 2.6 L Monocytes % (Manual) 2 L Eosinophils % 0.0 D Basophils % 0.3 Nucleated RBC % 0 Sodium 137 Potassium 4.8 Chloride 95 L Carbon Dioxide 35 H Anion Gap 7 L BUN 73.8 H Creatinine 2.2 H Est GFR (CKD-EPI)AfAm 29.89 Est GFR (CKD-EPI)NonAf 25.79 POC Glucometer Random Glucose 174 H Calcium 9.9 Magnesium 2.7 H Total Bilirubin 0.4 AST 20 ALT 43 Alkaline Phosphatase 66 Troponin I < 0.02 Total Protein 7.1 Albumin 3.4 Active Medications Generic Name Dose Route Start Last Admin Trade Name Freq PRN Reason Stop Dose Admin Acetaminophen 650 mg 01/03/20 14:49 01/05/20 12:02 Tylenol - PO 650 mg Q6H PRN Administration PAIN LEVEL 6-10 Albuterol Sulfate 2 puff 01/03/20 03:56 Ventolin Hfa Inhaler - IH Q4H PRN SHORT OF BREATH/WHEEZING Apixaban 2.5 mg 01/03/20 10:00 01/05/20 10:34 Eliquis - PO 2.5 mg BID JOE Administration Docusate Sodium 100 mg 01/05/20 14:00 01/05/20 14:01 Colace - PO 100 mg TID JOE Administration Guaifenesin 10 ml 01/03/20 14:43 Robitussin - PO BID PRN COUGH Azithromycin 250 mg/ Dextrose 250 mls @ 250 mls/hr 01/03/20 10:00 01/05/20 10:35 IVPB 01/06/20 10:59 250 mls/hr DAILY JOE Administration Insulin Aspart 1 vial 01/04/20 14:05 01/05/20 11:03 Novolog Vial Sliding Scale - SQ 12 unit ACHS JOE Administration Protocol Insulin Detemir 25 units 10/16/20 22:00 01/05/20 06:47 Levemir Vial SQ 25 units BID@0700,2200 JOE Administration Methylprednisolone Sodium Succinate 40 mg 01/03/20 03:00 01/05/20 10:35 Solu-Medrol - IVPUSH 40 mg Q8H-IV JOE Administration Metoprolol Succinate 50 mg 01/05/20 13:20 01/05/20 14:01 Toprol Xl - PO 50 mg DAILY JOE Administration Polyethylene Glycol 17 gm 01/05/20 11:00 01/05/20 12:01 Miralax (For Daily Use) - PO 17 gm DAILY JOE Administration Senna 2 tab 01/05/20 10:50 Senna - PO HS PRN CONSTIPATION ASSESSMENT/PLAN: Acute respiratory failure with hypoxia Assessment/Plan: Likely secondary to copd exacerbation on solumedrol 40 q 8 continue BIPAP, diuretics per renal, nebulizers, antibiotics (zithromax for bronchitis/copd exacerbation) monitor vitals pulmonary following Atrial fibrillation Assessment/Plan: On Eliquis 2.5mg BID rate control on toprol 50mg bid, with parameters Interstitial lung disease Assessment/Plan: home oxygen dependent bipap nocturnally, stable oxygen saturations and breathing is non labored. Acute kidney injury superimposed on CKD Being followed by renal DM type 2 (diabetes mellitus, type 2) Assessment/Plan: monitor in the presence of steriods for copd maintain fasting glucose < 180 on novolog ac/hs levemir 25mg bid HTN (hypertension) Assessment/Plan: stable, was hypotensive on admission, bp now more stable Chest Pain chest pain after coughing, likely pleuritic monitor on tele, troponins ordered Prophylactic measure Assessment/Plan: fen fluids: tolerating PO, monitor electrolytes daily diabetic diet Visit type - Emergency Visit Emergency Visit: Yes ED Registration Date: 01/02/20 Care time: The patient presented to the Emergency Department on the above date and was hospitalized for further evaluation of their emergent condition. - New Patient This patient is new to me today: No - Critical Care Critical Care patient: No - Discharge Referral Referred to [facility] Med P.C.: No - Medication Review Med list reviewed for High Risk Meds patients 65 and older: Yes
[2020-01-05] MEDS ORDERED: INSULIN (LEVEMIR) 100 UNITS/ML UNITS SQ SCH (17:01)
[2020-01-05] MEDS ORDERED: guaiFENesin/D-M SUGAR-FREE/ACLHOL-FREE 118 ML BOTTLE PO PRN (18:00)
--- NOTE | 2020-01-05 18:41 | EKG ---
Test Reason : Blood Pressure : / mmHG Vent. Rate : 077 BPM Atrial Rate : 078 BPM P-R Int : 000 ms QRS Dur : 118 ms QT Int : 402 ms P-R-T Axes : 000 -21 028 degrees QTc Int : 454 ms ATRIAL FIBRILLATION WITH PREMATURE VENTRICULAR OR ABERRANTLY CONDUCTED COMPLEXES INCOMPLETE LEFT BUNDLE BRANCH BLOCK ABNORMAL ECG WHEN COMPARED WITH ECG OF 02-JAN-2020 15:55, INCOMPLETE LEFT BUNDLE BRANCH BLOCK IS NOW PRESENT MINIMAL CRITERIA FOR ANTERIOR INFARCT ARE NO LONGER PRESENT Confirmed by MD DARYL, JAVIER ([id number]) on 01/05/2020 6:40:30 PM Referred By: Confirmed By:JAVIER BRITO MD
[2020-01-06] MEDS: methylPREDNISolone NA SUCC 40 MG/1 ML VIAL IVPUSH SCH ×3 (02:34→21:48)
[2020-01-06] MEDS: INSULIN (LEVEMIR) 100 UNITS/ML UNITS SQ SCH ×2 (06:19→21:47)
[2020-01-06] MEDS: DOCUSATE SODIUM 100 MG CAPSULE (FP) PO SCH ×3 (06:19→21:47)
[2020-01-06] MEDS: INSULIN SLIDING SCALE (NOVOLOG) 1 VIAL SQ SCH ×4 (06:20→21:48)
[2020-01-06 07:22] LABS: BASO % 0.3 % (0-2.0); EOS % 0.1 % (0-4.5); HEMATOCRIT 38.2 % (35.4-49); HEMOGLOBIN 13.1 GM/dL (11.7-16.9); LYMPH % 6.1 % (8-40); MCH 31.6 pg (25.7-33.7); MCHC 34.2 g/dl (32.0-35.9); MEAN CELL VOLUME 92.4 fl (80-96); MEAN PLT VOLUME 8.6 fl (7.5-11.1); MONO % 4.4 % (3.8-10.2); NEUT % 89.1 % (42.8-82.8); PLATELET COUNT 164 K/MM3 (134-434); RBC 4.14 M/mm3 (4.00-5.60); RDW 18.1 % (11.9-15.9); WHITE BLOOD COUNT 11.8 K/mm3 (4.0-10.0)
[2020-01-06 07:48] LABS: CHLORIDE 98 mmol/L (98-107); POTASSIUM 4.8 mmol/L (3.5-5.1); SODIUM 137 mmol/L (136-145)
[2020-01-06 07:52] LABS: CALCIUM 9.8 mg/dL (8.5-10.1); GLUCOSE,RANDOM 153 mg/dL (74-106)
[2020-01-06 07:53] LABS: ALBUMIN 3.2 g/dl (3.4-5.0); ANION GAP 4 MMOL/L (8-16); BLOOD UREA NITROGEN 69.5 mg/dL (7-18); CO2 35 mmol/L (21-32); MAGNESIUM 2.6 mg/dL (1.8-2.4)
[2020-01-06 07:56] LABS: SGOT/AST 28 U/L (15-37); SGPT/ALT 55 U/L (13-61)
[2020-01-06 07:57] LABS: BILIRUBIN,TOTAL 0.4 mg/dL (0.2-1); TOT PROT 6.6 g/dl (6.4-8.2)
[2020-01-06 07:59] LABS: ALK PHOS 58 U/L (45-117)
--- NOTE | 2020-01-06 08:23 | PN ---
Progress Note, Physician Chief Complaint: hypoxia History of Present Illness: coughing a lot denies sob no leg swelling no cp ex-cigs - Current Medication List Current Medications: Active Medications Acetaminophen (Tylenol -) 650 mg PO Q6H PRN PRN Reason: PAIN LEVEL 6-10 Last Admin: 01/05/20 12:02 Dose: 650 mg Documented by: Albuterol Sulfate (Ventolin Hfa Inhaler -) 2 puff IH Q4H PRN PRN Reason: SHORT OF BREATH/WHEEZING Apixaban (Eliquis -) 2.5 mg PO BID [facility] Last Admin: 01/05/20 22:06 Dose: 2.5 mg Documented by: Docusate Sodium (Colace -) 100 mg PO TID [facility] Last Admin: 01/06/20 06:19 Dose: 100 mg Documented by: Guaifenesin (Robitussin -) 10 ml PO BID PRN PRN Reason: COUGH Guaifenesin (Diabetic Tussin Dm -) 10 ml PO Q4H PRN PRN Reason: COUGH Last Admin: 01/05/20 17:46 Dose: 10 ml Documented by: Azithromycin 250 mg/ Dextrose 250 mls @ 250 mls/hr IVPB DAILY [facility] Stop: 01/06/20 10:59 Last Admin: 01/05/20 10:35 Dose: 250 mls/hr Documented by: Insulin Aspart (Novolog Vial Sliding Scale -) 1 vial SQ ACHS [facility]; Protocol Last Admin: 01/06/20 06:20 Dose: 6 units Documented by: Insulin Detemir (Levemir Vial) 40 units SQ BID@0700,2200 [facility] Last Admin: 01/06/20 06:19 Dose: 40 units Documented by: Methylprednisolone Sodium Succinate (Solu-Medrol -) 40 mg IVPUSH Q8H-IV [facility] Last Admin: 01/06/20 02:34 Dose: 40 mg Documented by: Metoprolol Succinate (Toprol Xl -) 50 mg PO DAILY [facility] Last Admin: 01/05/20 14:01 Dose: 50 mg Documented by: Polyethylene Glycol (Miralax (For Daily Use) -) 17 gm PO DAILY [facility] Last Admin: 01/05/20 12:01 Dose: 17 gm Documented by: Senna (Senna -) 2 tab PO HS PRN PRN Reason: CONSTIPATION - Objective Vital Signs: Vital Signs Temperature 97.7 F 01/06/20 06:00 Pulse Rate 63 01/06/20 06:00 Respiratory Rate 20 01/06/20 06:00 Blood Pressure 121/65 01/06/20 06:00 O2 Sat by Pulse Oximetry (%) 98 01/06/20 06:00 Constitutional: Yes: No Distress, Calm, Obese Eyes: No: Sclera Icterus HENT: No: Nasal Congestion Cardiovascular: Yes: Pulse Irregular, S1, S2, Other (PMI non diplaced). No: Gallop, Murmur Respiratory: Yes: CTA Bilaterally, Rales (LLL). No: Accessory Muscle Use, Wheezes Gastrointestinal: Yes: Normal Bowel Sounds, Soft. No: Tenderness Musculoskeletal: Yes: Other (No kyphosis) Extremities: No: Cold, Cyanosis Edema: No Integumentary: No: Jaundice Neurological: Yes: Alert, Oriented (x3) Psychiatric: No: Agitated Labs: CBC, BMP 01/06/20 06:20 01/06/20 06:20 INR, PTT INR 1.13 (0.83-1.09) H 01/02/20 16:30 Assessment/Plan Echo 04/2019: diastolic dysfx, moderate ecg: afib 83, no ischemic changes cxr: mild congestion a/p: 89 M h/o afib, HTN, HLD, CAD s/p CABG, copd, as sent from md office for low bp and low o2sat. hypoxia, sob, hypotension, copd, chronic diastolic chf, pulm HTN: -prior echoes with at least moderate pulm HTN, RV not well seen--? WHO 2 vs 3 vs mixed etiology -likely a.e. copd--abx and airways tx per pulm, ID -no signs acs -dry weight unknown (bedscale wts only on recent admits) -no edema, sob improved. CXR 01/04 no congestion/effusion, + L pleural fibrotic change (explains exam findings). renal fxn approaching his baseline. home diuretic regimen = torsemide 100 BID. will resume at 60 bid today and observe wt, labs. -will arrange f/u with dr dumont 1-2 wks to reassess volume status afib: -cont ac -initially held home bb for now given low bp, monitor on tele. -bp stabilized--resumed metopr succ 50 but qd instead of prior bid dose, while assess for hypotension htn: -cut back home meds due to hypotension, slowly resolving. cad: -stable, no signs acs -cont ac as: -stable, mod as on recent echo -outpt surveillance ckd: -cr baseline is 1.8-2.0 ok for d/c from cv standpoint
[2020-01-06] MEDS ORDERED: PT OWN MED DRAWER 7, Y5N ONE (09:20)
[2020-01-06] MEDS: AZITHROMYCIN IVPB 250 MG in DEXTROSE 5%-WATER - 250 ML IVPB SCH (09:49)
[2020-01-06] MEDS: APIXABAN 2.5 MG TABLET PO SCH ×2 (09:49→21:47)
[2020-01-06] MEDS: POLYETHYLENE GLYCOL 3350 119 GM BTL PO SCH (09:50)
--- NOTE | 2020-01-06 11:39 | PN ---
Physical Exam: SUBJECTIVE: Patient seen and examined. reports left testicle was inflammed for 4 months. denies chest pain. OBJECTIVE: mildly swollen left testicle, scrotal u/s negative coughing intermittently but improved no chest pain ---- Patient is an 89 year old man PMH htn, hld, CAD s/p CABG, CHF, aortic stenosis, Afib on Eliquis, COPD on 4L nasal cannula, chronic ILD, JUAN on BiPAP, IDDM, BPH, CKD stage 4, and dementia presenting with worsening dyspnea. He was being seen by his neprhologist when his BP was found to be 70/40 in the office. (He normally runs around 90/60). Patient states he has had increasing dyspnea the past several days. Reports a chronic cough, with white phlegm production. Denies fever, chills, nausea, vomiting, abdominal pain, dysuria, LE edema. States he lives at home with his , and is attended by a home health aid 5 days out of the week who assists with his medications. Vital Signs Period Temp Pulse Resp BP Sys/Junior Pulse Ox Last 24 Hr 97.6 F-98.3 F 63-111 19-20 107-129/52-91 95-100 GENERAL: The patient is awake, alert, and fully oriented, in no acute distress. HEAD: Normal with no signs of trauma. EYES: PERRL, extraocular movements intact, sclera anicteric, conjunctiva clear. No ptosis. ENT: Ears normal, nares patent, oropharynx clear without exudates NECK: Trachea midline, full range of motion, supple. LUNGS: mild crackles at left base. right lung clear. HEART: Regular rate and rhythm, ABDOMEN: Soft, nontender, distended but soft EXTREMITIES: trace edema bilterally NEUROLOGICAL: Normal speech, gait not observed. + facial symmetry PSYCH: Normal mood, normal affect. SKIN: Warm, dry, normal turgor, no rashes or lesions noted Laboratory Results - last 24 hr 01/05/20 01/05/20 01/05/20 06:50 17:56 17:56 WBC RBC Hgb Hct MCV MCH MCHC RDW Plt Count MPV Absolute Neuts (auto) Neutrophils % Neutrophils % (Manual) 90.0 H Band Neutrophils % Lymphocytes % Lymphocytes % (Manual) 8.0 D Monocytes % Monocytes % (Manual) 2 L Eosinophils % Basophils % Nucleated RBC % Sodium Potassium Chloride Carbon Dioxide Anion Gap BUN Creatinine Est GFR (CKD-EPI)AfAm Est GFR (CKD-EPI)NonAf POC Glucometer Random Glucose 380 H Calcium Magnesium Total Bilirubin AST ALT Alkaline Phosphatase Troponin I < 0.02 Total Protein Albumin 01/06/20 01/06/20 01/06/20 05:47 06:20 06:20 WBC 11.8 H RBC 4.14 Hgb 13.1 Hct 38.2 MCV 92.4 MCH 31.6 MCHC 34.2 RDW 18.1 H Plt Count 164 MPV 8.6 Absolute Neuts (auto) 10.5 H Neutrophils % 89.1 H Neutrophils % (Manual) 86.0 H Band Neutrophils % 3.0 Lymphocytes % 6.1 L Lymphocytes % (Manual) 8.0 Monocytes % 4.4 Monocytes % (Manual) 3 L Eosinophils % 0.1 D Basophils % 0.3 Nucleated RBC % 0 Sodium 137 Potassium 4.8 Chloride 98 Carbon Dioxide 35 H Anion Gap 4 L BUN 69.5 H Creatinine 2.0 H Est GFR (CKD-EPI)AfAm 33.54 Est GFR (CKD-EPI)NonAf 28.94 POC Glucometer 162 Random Glucose 153 H Calcium 9.8 Magnesium 2.6 H Total Bilirubin 0.4 AST 28 ALT 55 Alkaline Phosphatase 58 Troponin I < 0.02 Total Protein 6.6 Albumin 3.2 L Active Medications Generic Name Dose Route Start Last Admin Trade Name Freq PRN Reason Stop Dose Admin Acetaminophen 650 mg 01/03/20 14:49 01/05/20 12:02 Tylenol - PO 650 mg Q6H PRN Administration PAIN LEVEL 6-10 Albuterol Sulfate 2 puff 01/03/20 03:56 Ventolin Hfa Inhaler - IH Q4H PRN SHORT OF BREATH/WHEEZING Apixaban 2.5 mg 01/03/20 10:00 01/06/20 09:49 Eliquis - PO 2.5 mg BID JOE Administration Docusate Sodium 100 mg 01/05/20 14:00 01/06/20 06:19 Colace - PO 100 mg TID JOE Administration Guaifenesin 10 ml 01/03/20 14:43 Robitussin - PO BID PRN COUGH Guaifenesin 10 ml 01/05/20 18:00 01/05/20 17:46 Diabetic Tussin Dm - PO 10 ml Q4H PRN Administration COUGH Insulin Aspart 1 vial 01/05/20 22:00 01/06/20 06:20 Novolog Vial Sliding Scale - SQ 6 units ACHS JOE Administration Protocol Insulin Detemir 40 units 01/05/20 22:00 01/06/20 06:19 Levemir Vial SQ 40 units BID@0700,2200 JOE Administration Methylprednisolone Sodium Succinate 40 mg 01/03/20 03:00 01/06/20 09:50 Solu-Medrol - IVPUSH 40 mg Q8H-IV JOE Administration Metoprolol Succinate 50 mg 01/05/20 13:20 01/06/20 09:50 Toprol Xl - PO 50 mg DAILY JOE Administration Polyethylene Glycol 17 gm 01/05/20 11:00 01/06/20 09:50 Miralax (For Daily Use) - PO Not Given DAILY JOE Senna 2 tab 01/05/20 10:50 Senna - PO HS PRN CONSTIPATION Torsemide 60 mg 01/06/20 14:00 Demadex - PO BIDLASIX JOE ASSESSMENT/PLAN: Acute respiratory failure with hypoxia Assessment/Plan: Likely secondary to copd exacerbation on solumedrol 40 q 8, will titrate down to bid today continue BIPAP, diuretics per renal, nebulizers, antibiotics (zithromax for bronchitis/copd exacerbation) monitor vitals pulmonary following Atrial fibrillation Assessment/Plan: On Eliquis 2.5mg BID rate control on toprol 50mg daily Interstitial lung disease Assessment/Plan: home oxygen dependent bipap nocturnally, stable oxygen saturations and breathing is non labored. Acute kidney injury superimposed on CKD Being followed by renal DM type 2 (diabetes mellitus, type 2) Assessment/Plan: monitor in the presence of steriods for copd maintain fasting glucose < 180 on novolog ac/hs levemir 25mg bid HTN (hypertension) Assessment/Plan: stable, was hypotensive on admission, bp now more stable Chest Pain, resolved chest pain after coughing, likely pleuritic scrotal discomfort, chronic Per patient has been ongoing x 4 months. scrotal u/s negative Prophylactic measure Assessment/Plan: fen fluids: tolerating PO, monitor electrolytes daily diabetic diet Visit type - Emergency Visit Emergency Visit: Yes ED Registration Date: 01/02/20 Care time: The patient presented to the Emergency Department on the above date and was hospitalized for further evaluation of their emergent condition. - New Patient This patient is new to me today: No - Critical Care Critical Care patient: No - Discharge Referral Referred to [facility] No - Medication Review Med list reviewed for High Risk Meds patients 65 and older: Yes
[2020-01-06] MEDS: guaiFENesin 200 MG/10 ML 10 ML UNIT-DOSE CUPS PO PRN (11:41)
[2020-01-06] MEDS: TORSEMIDE 20 MG TABLET (FP) PO SCH (13:30)
--- NOTE | 2020-01-06 14:44 | EKG ---
Test Reason : Blood Pressure : / mmHG Vent. Rate : 074 BPM Atrial Rate : 081 BPM P-R Int : 000 ms QRS Dur : 112 ms QT Int : 370 ms P-R-T Axes : 000 -29 040 degrees QTc Int : 410 ms ATRIAL FIBRILLATION WITH PREMATURE VENTRICULAR OR ABERRANTLY CONDUCTED COMPLEXES LOW VOLTAGE QRS INCOMPLETE LEFT BUNDLE BRANCH BLOCK NONSPECIFIC ST ABNORMALITY ABNORMAL ECG WHEN COMPARED WITH ECG OF 04-JAN-2020 14:33, NO SIGNIFICANT CHANGE WAS FOUND Confirmed by MD DARYL, JAVIER ([id number]) on 01/06/2020 2:44:12 PM Referred By: Confirmed By:JAVIER BRITO MD
--- NOTE | 2020-01-06 22:03 | PN ---
Progress Note (short form) - Note Progress Note: 1. hypercalcemia 2. lung mass 3. DM 4. CHF 5. ILD 6. HTN 7. CKD 8. Pulm HTN 9. hypotension 10. hypoxia Active Medications Acetaminophen (Tylenol -) 650 mg PO Q6H PRN PRN Reason: PAIN LEVEL 6-10 Last Admin: 01/05/20 12:02 Dose: 650 mg Documented by: Albuterol Sulfate (Ventolin Hfa Inhaler -) 2 puff IH Q4H PRN PRN Reason: SHORT OF BREATH/WHEEZING Apixaban (Eliquis -) 2.5 mg PO BID [facility] Last Admin: 01/06/20 09:49 Dose: 2.5 mg Documented by: Docusate Sodium (Colace -) 100 mg PO TID [facility] Last Admin: 01/06/20 13:30 Dose: 100 mg Documented by: Guaifenesin (Robitussin -) 10 ml PO BID PRN PRN Reason: COUGH Last Admin: 01/06/20 11:41 Dose: 10 ml Documented by: Guaifenesin (Diabetic Tussin Dm -) 10 ml PO Q4H PRN PRN Reason: COUGH Last Admin: 01/05/20 17:46 Dose: 10 ml Documented by: Insulin Aspart (Novolog Vial Sliding Scale -) 1 vial SQ [facility]; Protocol Last Admin: 01/06/20 16:55 Dose: 10 units Documented by: Insulin Detemir (Levemir Vial) 40 units SQ BID@0700,2200 [facility] Last Admin: 01/06/20 06:19 Dose: 40 units Documented by: Methylprednisolone Sodium Succinate (Solu-Medrol -) 40 mg IVPUSH BID [facility] Metoprolol Succinate (Toprol Xl -) 50 mg PO DAILY [facility] Last Admin: 01/06/20 09:50 Dose: 50 mg Documented by: Polyethylene Glycol (Miralax (For Daily Use) -) 17 gm PO DAILY [facility] Last Admin: 01/06/20 09:50 Dose: Not Given Documented by: Senna (Senna -) 2 tab PO HS PRN PRN Reason: CONSTIPATION Torsemide (Demadex -) 60 mg PO BIDLASIX [facility] Last Admin: 01/06/20 13:30 Dose: 60 mg Documented by: Last Vital Signs Temp Pulse Resp BP Pulse Ox 98.2 F 74 18 122/65 97 01/06/20 18:00 01/06/20 18:00 01/06/20 18:00 01/06/20 18:00 01/06/20 21:05 CBC, BMP 01/06/20 06:20 01/06/20 06:20
[2020-01-07] MEDS: DOCUSATE SODIUM 100 MG CAPSULE (FP) PO SCH ×2 (05:34→13:49)
[2020-01-07] MEDS: TORSEMIDE 20 MG TABLET (FP) PO SCH ×2 (05:36→13:49)
[2020-01-07] MEDS: INSULIN SLIDING SCALE (NOVOLOG) 1 VIAL SQ SCH ×2 (06:34→11:39)
[2020-01-07] MEDS: INSULIN (LEVEMIR) 100 UNITS/ML UNITS SQ SCH (06:34)
[2020-01-07 07:58] LABS: BASO % 0.1 % (0-2.0); HEMATOCRIT 40.3 % (35.4-49); HEMOGLOBIN 13.1 GM/dL (11.7-16.9); LYMPH % 9.3 % (8-40); MCH 30.1 pg (25.7-33.7); MCHC 32.4 g/dl (32.0-35.9); MEAN CELL VOLUME 92.8 fl (80-96); MEAN PLT VOLUME 8.5 fl (7.5-11.1); MONO % 7.6 % (3.8-10.2); PLATELET COUNT 186 K/MM3 (134-434); RBC 4.34 M/mm3 (4.00-5.60); RDW 18.4 % (11.9-15.9); WHITE BLOOD COUNT 10.8 K/mm3 (4.0-10.0)
[2020-01-07 08:20] LABS: POTASSIUM 4.3 mmol/L (3.5-5.1)
[2020-01-07 08:23] LABS: CALCIUM 9.5 mg/dL (8.5-10.1)
[2020-01-07 08:24] LABS: ALBUMIN 3.2 g/dl (3.4-5.0); BLOOD UREA NITROGEN 81.6 mg/dL (7-18); MAGNESIUM 2.6 mg/dL (1.8-2.4)
[2020-01-07 08:27] LABS: CREATININE 2.1 mg/dL (0.55-1.3)
[2020-01-07 08:28] LABS: BILIRUBIN,TOTAL 0.5 mg/dL (0.2-1); TOT PROT 6.8 g/dl (6.4-8.2)
[2020-01-07] MEDS: APIXABAN 2.5 MG TABLET PO SCH (09:14)
[2020-01-07] MEDS: POLYETHYLENE GLYCOL 3350 119 GM BTL PO SCH (09:14)
[2020-01-07] MEDS: methylPREDNISolone NA SUCC 40 MG/1 ML VIAL IVPUSH SCH (09:14)
[2020-01-07] MEDS: guaiFENesin 200 MG/10 ML 10 ML UNIT-DOSE CUPS PO PRN (09:14)
--- NOTE | 2020-01-07 10:27 | PN ---
Progress Note (short form) - Note Progress Note: Chief Complaint: hypoxia History of Present Illness: mild coughing improving denies sob no leg swelling no cp ex-cigs Current Medications Generic Name Dose Route Start Last Admin Trade Name Freq PRN Reason Stop Dose Admin Acetaminophen 650 mg 01/03/20 14:49 01/05/20 12:02 Tylenol - PO 650 mg Q6H PRN Administration PAIN LEVEL 6-10 Albuterol Sulfate 2 puff 01/03/20 03:56 Ventolin Hfa Inhaler - IH Q4H PRN SHORT OF BREATH/WHEEZING Apixaban 2.5 mg 01/03/20 10:00 01/07/20 09:14 Eliquis - PO 2.5 mg BID JOE Administration Docusate Sodium 100 mg 01/05/20 14:00 01/07/20 05:34 Colace - PO 100 mg TID JOE Administration Guaifenesin 10 ml 01/03/20 14:43 01/07/20 09:14 Robitussin - PO 10 ml BID PRN Administration COUGH Guaifenesin 10 ml 01/05/20 18:00 01/05/20 17:46 Diabetic Tussin Dm - PO 10 ml Q4H PRN Administration COUGH Insulin Aspart 1 vial 01/05/20 22:00 01/07/20 06:34 Novolog Vial Sliding Scale - SQ Not Given ACHS [facility] Protocol Insulin Detemir 40 units 01/05/20 22:00 01/07/20 06:34 Levemir Vial SQ 40 units BID@0700,2200 JOE Administration Methylprednisolone Sodium Succinate 40 mg 01/06/20 22:00 01/07/20 09:14 Solu-Medrol - IVPUSH 40 mg BID JOE Administration Metoprolol Succinate 50 mg 01/05/20 13:20 01/07/20 09:14 Toprol Xl - PO Not Given DAILY JOE Polyethylene Glycol 17 gm 01/05/20 11:00 01/07/20 09:14 Miralax (For Daily Use) - PO 17 gm DAILY JOE Administration Senna 2 tab 01/05/20 10:50 Senna - PO HS PRN CONSTIPATION Torsemide 60 mg 01/06/20 14:00 01/07/20 05:36 Demadex - PO 60 mg BIDLASIX JOE Administration Vital Signs Period Temp Pulse Resp BP Sys/Junior Pulse Ox Last 24 Hr 97.6 F-98.7 F 64-87 18-18 110-133/42-72 95-100 Constitutional: Yes: No Distress, Calm, Obese Eyes: No: Sclera Icterus HENT: No: Nasal Congestion Cardiovascular: Yes: Pulse Irregular, S1, S2, Other (PMI non diplaced). No: Gallop, Murmur Respiratory: Yes: CTA Bilaterally, Rales (LLL). No: Accessory Muscle Use, Wheezes Gastrointestinal: Yes: Normal Bowel Sounds, Soft. No: Tenderness Musculoskeletal: Yes: Other (No kyphosis) Extremities: No: Cold, Cyanosis Edema: No Integumentary: No: Jaundice Neurological: Yes: Alert, Oriented (x3) Psychiatric: No: Agitated Labs: CBC, BMP 01/07/20 07:00 01/07/20 07:00 Assessment/Plan Echo 04/2019: diastolic dysfx, moderate ecg: afib 83, no ischemic changes cxr: mild congestion tele: afib, rate ok a/p: 89 M h/o afib, HTN, HLD, CAD s/p CABG, copd, as sent from md office for low bp and low o2sat. hypoxia, sob, hypotension, copd, chronic diastolic chf, pulm HTN: -prior echoes with at least moderate pulm HTN, RV not well seen--? WHO 2 vs 3 vs mixed etiology -likely a.e. copd--abx and airways tx per pulm, ID -no signs acs -dry weight unknown (bedscale wts only on recent admits) -no edema, sob improved. CXR 01/04 no congestion/effusion, + L pleural fibrotic change (explains exam findings). renal fxn approaching his baseline. home diuretic regimen = torsemide 100 BID. will resume at 60 bid here and observe wt, labs. -f/u with dr dmuont 1-2 wks to reassess volume status afib: -cont ac -initially held home bb for now given low bp, monitor on tele. -bp stabilized--resumed metopr succ 50 but qd instead of prior bid dose, while assess for hypotension htn: -cut back home meds due to hypotension,resolving. cad: -stable, no signs acs -cont ac as: -stable, mod as on recent echo -outpt surveillance ckd: -cr baseline is 1.8-2.0 ok for d/c from cv standpoint
[2020-01-07] MEDS ORDERED: INSULIN (LEVEMIR) 100 UNITS/ML UNITS SQ ONE (11:44)
[2020-01-07] MEDS ORDERED: INSULIN SLIDING SCALE (NOVOLOG) 1 VIAL SQ ONE (11:44)
[2020-01-07] MEDS: SODIUM CHLORIDE FOR INHALATION 3 ML VIAL.NEB IH SCH ×2 (12:00→15:11)
--- NOTE | 2020-01-07 13:09 | PN ---
Progress Note (short form) - Note Progress Note: PULMONARY Denies shortness of breath, chest pain. Vital Signs Period Temp Pulse Resp BP Sys/Junior Pulse Ox Last 24 Hr 97.6 F-98.7 F 64-87 18-18 99-133/42-72 95-100 Gen: NAD in chair Heart: RRR Lung: decreased breath sounds at the bases Abd: soft, nontender Ext: no edema CBC, BMP 01/07/20 07:00 01/07/20 07:00 Active Medications Acetaminophen (Tylenol -) 650 mg PO Q6H PRN PRN Reason: PAIN LEVEL 6-10 Last Admin: 01/05/20 12:02 Dose: 650 mg Documented by: Albuterol Sulfate (Ventolin Hfa Inhaler -) 2 puff IH Q4H PRN PRN Reason: SHORT OF BREATH/WHEEZING Apixaban (Eliquis -) 2.5 mg PO BID [facility] Last Admin: 01/07/20 09:14 Dose: 2.5 mg Documented by: Docusate Sodium (Colace -) 100 mg PO TID [facility] Last Admin: 01/07/20 05:34 Dose: 100 mg Documented by: Guaifenesin (Robitussin -) 10 ml PO BID PRN PRN Reason: COUGH Last Admin: 01/07/20 09:14 Dose: 10 ml Documented by: Guaifenesin (Diabetic Tussin Dm -) 10 ml PO Q4H PRN PRN Reason: COUGH Last Admin: 01/05/20 17:46 Dose: 10 ml Documented by: Insulin Aspart (Novolog Vial Sliding Scale -) 1 vial SQ [facility]; Protocol Last Admin: 01/07/20 11:39 Dose: 8 units Documented by: Insulin Detemir (Levemir Vial) 40 units SQ BID@0700,2200 [facility] Last Admin: 01/07/20 06:34 Dose: 40 units Documented by: Methylprednisolone Sodium Succinate (Solu-Medrol -) 40 mg IVPUSH BID [facility] Last Admin: 01/07/20 09:14 Dose: 40 mg Documented by: Metoprolol Succinate (Toprol Xl -) 50 mg PO DAILY [facility] Last Admin: 01/07/20 09:14 Dose: Not Given Documented by: Polyethylene Glycol (Miralax (For Daily Use) -) 17 gm PO DAILY [facility] Last Admin: 01/07/20 09:14 Dose: 17 gm Documented by: Senna (Senna -) 2 tab PO HS PRN PRN Reason: CONSTIPATION Sodium Chloride (Normal Saline For Inhalation -) 3 ml IH RQID [facility] Last Admin: 01/07/20 12:00 Dose: Not Given Documented by: Torsemide (Demadex -) 60 mg PO BIDLASIX [facility] Last Admin: 01/07/20 05:36 Dose: 60 mg Documented by: A/P Acute on Chronic Diastolic Heart Failure Pulmonary HTN CAD s/p CABG Atrial Fibrillation Aortic Stenosis COPD Chronic Hypoxic Respiratory Failure CKD HTN - continue torsemide - monitor urine output, creatinine - rate controlled - continue anticoagulation - O2 to keep SpO2 >90% - can change steroids to PO prednisone 40mg daily and taper as outpt - can d/c home from pulmonary standpoint
[2020-01-07 13:40] VITALS: BP 100/63; PULSE 82; TEMP 97.8
--- NOTE | 2020-01-07 14:29 | DS ---
Physical Exam: SUBJECTIVE: Patient seen and examined OBJECTIVE: Patient is an 89 year old man PMH htn, hld, CAD s/p CABG, CHF, aortic stenosis, Afib on Eliquis, COPD on 4L nasal cannula, chronic ILD, JUAN on BiPAP, IDDM, BPH, CKD stage 4, and dementia presenting with worsening dyspnea. He was being seen by his neprhologist when his BP was found to be 70/40 in the office. (He normally runs around 90/60). Patient states he has had increasing dyspnea the past several days. Reports a chronic cough, with white phlegm production. D enies fever, chills, nausea, vomiting, abdominal pain, dysuria, LE edema. States he lives at home with his , and is attended by a home health aid 5 days out of the week who assists with his medications. Patient cleared for discharge by pulmonary on a prednisone taper. His BP has improved and his Metoprolol has been changed to daily dosing instead of BID dosing. Vital Signs Period Temp Pulse Resp BP Sys/Junior Pulse Ox Last 24 Hr 97.6 F-98.3 F 64-82 18-18 99-127/42-65 95-100 PHYSICAL EXAM GENERAL: The patient is awake, alert, and fully oriented, in no acute distress. HEAD: Normal with no signs of trauma. EYES: PERRL, extraocular movements intact, sclera anicteric, conjunctiva clear. No ptosis. ENT: Ears normal, nares patent, oropharynx clear without exudates NECK: Trachea midline, full range of motion, supple. LUNGS: mild crackles at left base. right lung clear. HEART: Regular rate and rhythm, ABDOMEN: Soft, nontender, distended but soft EXTREMITIES: trace edema bilterally NEUROLOGICAL: Normal speech, gait not observed. + facial symmetry PSYCH: Normal mood, normal affect. SKIN: Warm, dry, normal turgor, no rashes or lesions noted LABS Laboratory Results - last 24 hr 01/07/20 01/07/20 07:00 07:00 WBC 10.8 H RBC 4.34 Hgb 13.1 Hct 40.3 MCV 92.8 MCH 30.1 MCHC 32.4 RDW 18.4 H Plt Count 186 MPV 8.5 Absolute Neuts (auto) 9.0 H Neutrophils % 83.0 H Lymphocytes % 9.3 D Monocytes % 7.6 Eosinophils % 0.0 D Basophils % 0.1 Nucleated RBC % 0 Sodium 136 Potassium 4.3 Chloride 92 L Carbon Dioxide 40 H Anion Gap 5 L BUN 81.6 H Creatinine 2.1 H Est GFR (CKD-EPI)AfAm 31.62 Est GFR (CKD-EPI)NonAf 27.28 Random Glucose 127 H Calcium 9.5 Magnesium 2.6 H Total Bilirubin 0.5 AST 38 H ALT 76 H Alkaline Phosphatase 58 Total Protein 6.8 Albumin 3.2 L HOSPITAL COURSE: Date of Admission:01/02/20 Date of Discharge: 01/07/20 Minutes to complete discharge: 45 Discharge Summary Problems reviewed: Yes Reason For Visit: ACUTE ON CHRONIC CONGESTIVE HEART FAILURE, LOW Current Active Problems Atelectasis (Acute) CHF, acute on chronic (Acute) Hypotension (Acute) Pneumonia (Acute) Respiratory failure (Acute) Condition: Fair - Instructions Diet, Activity, Other Instructions: DISCHARGE YOUR VISIT You came to the hospital because you had shortness of breath and low blood pressure. You were evaluated by the publishing director and automobile club travel counselor and here are our discharge instructions. MEDICATIONS STOP DEMADEX 100MG twice per day and START DEMADEX 60mg TWICE per day STOP Metoprolol 50mg TWICE per day and START taking it only ONCE per day START Prednisone as follows: On 01/08/2020 Take Prednisone 40mg once in the morning On 01/09/2020 Take Prednisone 40mg once in the morning On 01/10/2020 Take Prednisone 30mg once in the morning On 01/11/2020 Take Prednisone 30mg once in the morning On 01/12/2020 Take Prednisone 20mg once in the morning On 01/13/2020 Take Prednisone 20mg once in the morning - this is your last dose TAKE PEPCID while on the Prednisone CONTINUE all of your other medications as outlined in your discharge instructions. DIET Continue your home diet ADDITIONAL CARE Please make an appointment to see your primary care provider, 1 week from today. ADDITIONAL INFORMATION Please call 911 or come directly to the emergency department if you experience unusual headache, vision change, shortness of breath, chest pain, numbness, tingling, loss of alertness/awareness, loss of function, unusual bleeding or any alarming symptoms. Thank you for allowing us to care for you. [facility] Referrals: Sunil Moseley MD [Primary Care Provider] - - Home Medications Comprehensive Discharge Medication List: Ambulatory Orders Sitagliptin Phosphate [Januvia -] 25 mg PO DAILY@0700 #90 tab 10/14/14 Spironolactone [Aldactone -] 25 mg PO DAILY #30 tablet 03/31/17 Aspirin 81 mg PO DAILY 04/10/17 Apixaban [Eliquis -] 2.5 mg PO BID 03/30/18 Acetaminophen [Tylenol .Regular Strength -] 650 mg PO Q8H PRN tablet 01/26/19 Colchicine [Colcrys] 0.6 mg PO DAILY cap 01/26/19 Methyl Salicylate/Menthol Oint [Analgesic [place] -] 1 applic TP BID PRN applic 01/26/19 Nitroglycerin Sublingual [Nitrostat -] 0.4 mg SL Q5M PRN tab 01/26/19 Tamsulosin HCl [Flomax -] 0.4 mg PO DAILY@0830 cap.er.24h 01/26/19 Insulin (Levemir) [Levemir Vial] 25 units SQ BID@0700,2200 #0 units 12/23/19 Apixaban [Eliquis -] 2.5 mg PO BID tablet 01/07/20 Docusate Sodium [Colace -] 100 mg PO TID capsule 01/07/20 Insulin (Levemir) [Levemir Vial] 40 units SQ BID@0700,2200 units 01/07/20 Metoprolol Succinate [Toprol XL -] 50 mg PO DAILY #30 tab.sr.24h 01/07/20 Torsemide [Demadex -] 60 mg PO BIDLASIX #120 tablet 01/07/20 predniSONE [Deltasone -] 40 mg PO DAILY #30 tablet 01/07/20 This patient is new to me today: Yes Date on this admission: 01/07/20 Emergency Visit: No Critical Care patient: No - Discharge Referral [facility]erred to [facility] No
--- NOTE | 2020-01-07 14:30 | PN ---
Progress Note, Physician History of Present Illness: Pt seen and examined at bedside. He is awake and alert. He is eager to go home. - Current Medication List Current Medications: Active Medications Acetaminophen (Tylenol -) 650 mg PO Q6H PRN PRN Reason: PAIN LEVEL 6-10 Last Admin: 01/05/20 12:02 Dose: 650 mg Documented by: Albuterol Sulfate (Ventolin Hfa Inhaler -) 2 puff IH Q4H PRN PRN Reason: SHORT OF BREATH/WHEEZING Apixaban (Eliquis -) 2.5 mg PO BID [facility] Last Admin: 01/07/20 09:14 Dose: 2.5 mg Documented by: Docusate Sodium (Colace -) 100 mg PO TID [facility] Last Admin: 01/07/20 13:49 Dose: 100 mg Documented by: Guaifenesin (Robitussin -) 10 ml PO BID PRN PRN Reason: COUGH Last Admin: 01/07/20 09:14 Dose: 10 ml Documented by: Guaifenesin (Diabetic Tussin Dm -) 10 ml PO Q4H PRN PRN Reason: COUGH Last Admin: 01/05/20 17:46 Dose: 10 ml Documented by: Insulin Aspart (Novolog Vial Sliding Scale -) 1 vial SQ ACHS [facility]; Protocol Last Admin: 01/07/20 11:39 Dose: 8 units Documented by: Insulin Detemir (Levemir Vial) 40 units SQ BID@0700,2200 [facility] Last Admin: 01/07/20 06:34 Dose: 40 units Documented by: Methylprednisolone Sodium Succinate (Solu-Medrol -) 40 mg IVPUSH BID [facility] Last Admin: 01/07/20 09:14 Dose: 40 mg Documented by: Metoprolol Succinate (Toprol Xl -) 50 mg PO DAILY [facility] Last Admin: 01/07/20 09:14 Dose: Not Given Documented by: Polyethylene Glycol (Miralax (For Daily Use) -) 17 gm PO DAILY [facility] Last Admin: 01/07/20 09:14 Dose: 17 gm Documented by: Senna (Senna -) 2 tab PO HS PRN PRN Reason: CONSTIPATION Sodium Chloride (Normal Saline For Inhalation -) 3 ml IH RQID [facility] Last Admin: 01/07/20 12:00 Dose: Not Given Documented by: Torsemide (Demadex -) 60 mg PO BIDLASIX [facility] Last Admin: 01/07/20 13:49 Dose: 60 mg Documented by: - Objective Vital Signs: Vital Signs Temperature 97.8 F 01/07/20 13:38 Pulse Rate 82 01/07/20 13:38 Respiratory Rate 18 01/07/20 13:38 Blood Pressure 100/63 01/07/20 13:38 O2 Sat by Pulse Oximetry (%) 99 01/07/20 11:59 Constitutional: Yes: Calm Eyes: Yes: Conjunctiva Clear HENT: Yes: Atraumatic Neck: Yes: Supple Cardiovascular: Yes: S1, S2 Respiratory: Yes: On Nasal O2 Gastrointestinal: Yes: Soft Genitourinary: Yes: WNL Musculoskeletal: Yes: WNL Edema: Yes Edema: LLE: Trace, RLE: Trace Neurological: Yes: Oriented Psychiatric: Yes: Oriented Labs: CBC, BMP 01/07/20 07:00 01/07/20 07:00 INR, PTT INR 1.13 (0.83-1.09) H 01/02/20 16:30 Problem List - Problems (1) CHF, acute on chronic Code(s): I50.9 - HEART FAILURE, UNSPECIFIED Qualifiers: Heart failure type: unspecified Qualified Code(s): I50.9 - Heart failure, unspecified (2) Hypotension Code(s): I95.9 - HYPOTENSION, UNSPECIFIED Assessment/Plan Current Medications Generic Name Dose Route Start Last Admin Trade Name Freq PRN Reason Stop Dose Admin Acetaminophen 650 mg 01/03/20 14:49 01/05/20 12:02 Tylenol - PO 650 mg Q6H PRN Administration PAIN LEVEL 6-10 Albuterol Sulfate 2 puff 01/03/20 03:56 Ventolin Hfa Inhaler - IH Q4H PRN SHORT OF BREATH/WHEEZING Apixaban 2.5 mg 01/03/20 10:00 01/07/20 09:14 Eliquis - PO 2.5 mg BID JOE Administration Docusate Sodium 100 mg 01/05/20 14:00 01/07/20 13:49 Colace - PO 100 mg TID JOE Administration Guaifenesin 10 ml 01/03/20 14:43 01/07/20 09:14 Robitussin - PO 10 ml BID PRN Administration COUGH Guaifenesin 10 ml 01/05/20 18:00 01/05/20 17:46 Diabetic Tussin Dm - PO 10 ml Q4H PRN Administration COUGH Insulin Aspart 1 vial 01/05/20 22:00 01/07/20 11:39 Novolog Vial Sliding Scale - SQ 8 units ACHS JOE Administration Protocol Insulin Detemir 40 units 01/05/20 22:00 01/07/20 06:34 Levemir Vial SQ 40 units BID@0700,2200 JOE Administration Methylprednisolone Sodium Succinate 40 mg 01/06/20 22:00 01/07/20 09:14 Solu-Medrol - IVPUSH 40 mg BID JOE Administration Metoprolol Succinate 50 mg 01/05/20 13:20 01/07/20 09:14 Toprol Xl - PO Not Given DAILY JOE Polyethylene Glycol 17 gm 01/05/20 11:00 01/07/20 09:14 Miralax (For Daily Use) - PO 17 gm DAILY JOE Administration Senna 2 tab 01/05/20 10:50 Senna - PO HS PRN CONSTIPATION Sodium Chloride 3 ml 01/07/20 11:00 01/07/20 12:00 Normal Saline For Inhalation - IH Not Given RQID JOE Torsemide 60 mg 01/06/20 14:00 01/07/20 13:49 Demadex - PO 60 mg BIDLASIX JOE Administration Impression 1. hypercalcemia 2. lung mass 3. DM 4. CHF 5. ILD 6. HTN 7. CKD 8. Pulm HTN 9. hypotension 10. hypoxia Plan - cont diuretics - renal function stabilizing - calcium stable - monitor lytes - will need outpt follow up - pt has an outpt pet scan set up
== END 2020-01-07 17:00 | disposition home or self-care (01) | DRG 291 ==
LOC: JER 14:40 → JERBED 17:15 → J4S 01-03 15:47
PROVIDERS: ADMIT Internal Medicine; ATTEND Nurse Practitioner Family
DX: I13.0 Hypertensive heart and chronic kidney disease with heart failure and stage 1 through stage 4 chronic kidney disease, or unspecified chronic kidney disease (principal); I50.33 Acute on chronic diastolic (congestive) heart failure; J96.21 Acute and chronic respiratory failure with hypoxia; J44.1 Chronic obstructive pulmonary disease with (acute) exacerbation; J84.9 Interstitial pulmonary disease, unspecified; N18.4 Chronic kidney disease, stage 4 (severe); I48.20 Chronic atrial fibrillation, unspecified; N17.9 Acute kidney failure, unspecified; J98.11 Atelectasis; I25.10 Atherosclerotic heart disease of native coronary artery without angina pectoris; J44.9 Chronic obstructive pulmonary disease, unspecified; G47.33 Obstructive sleep apnea (adult) (pediatric); E11.9 Type 2 diabetes mellitus without complications; N40.0 Benign prostatic hyperplasia without lower urinary tract symptoms; F03.90 Unspecified dementia, unspecified severity, without behavioral disturbance, psychotic disturbance, mood disturbance, and anxiety; I95.9 Hypotension, unspecified; E83.52 Hypercalcemia; Z95.1 Presence of aortocoronary bypass graft; I27.20 Pulmonary hypertension, unspecified; I35.0 Nonrheumatic aortic (valve) stenosis; E66.9 Obesity, unspecified; Z68.37 Body mass index [BMI] 37.0-37.9, adult
CPT/HCPCS: 36415; 71045-TC-FY; 76870-TC; 80053; 81003; 82550; 82947; 82962; 83735; 83880; 84100; 84484; 85025; 85610; 85730; 87086; 93005; 93010; 94660; 99285-25; C9803; U0003